=== PATIENT | female | born 1970 | race African-American/Black ===

== ENCOUNTER → 2017-08-13 | Outpatient (CLI) | payer OTHER ==
--- NOTE | 2017-08-13 11:03 | MM ---
Reason for exam: screening (asymptomatic). Last mammogram was performed 1 year and 1 month ago. Physical Findings: Dr. Velasquez did not find any significant physical abnormalities on exam. MG Screening Mammo w CAD Bilateral CC and MLO view(s) were taken. Prior study comparison: July 27, 2016, bilateral MG screening mammo w CAD. July 12, 2015, bilateral MG screening mammo w CAD. There are scattered fibroglandular densities. No suspicious abnormality. No significant changes when compared with prior studies. ASSESSMENT: Negative, BI-RAD 1 RECOMMENDATION: Routine screening mammogram of both breasts in 1 year.
== END | disposition home or self-care (01) ==
LOC: RADMAMWWP 07:20
PROVIDERS: ATTEND Family Medicine
DX: Z12.31 Encounter for screening mammogram for malignant neoplasm of breast (principal)

== ENCOUNTER 2017-09-08 11:03 | Emergency (ER) | payer OTHER ==
[2017-09-08 11:16] VITALS: RESP 18
[2017-09-08] MEDS ORDERED: DEXAMETHASONE SOD PHOSPHATE 10 MG/ML 1 ML VIAL IV STA (11:31)
[2017-09-08] MEDS ORDERED: ALBUTEROL NEBULIZED 2.5 MG/3 ML INHALATION STA (11:31)
[2017-09-08] MEDS ORDERED: IPRATROPIUM 0.5 MG/2.5 ML NEBU INHALATION STA (11:31)
--- NOTE | 2017-09-08 11:35 | ED ---
General Adult HPI - General Chief complaint: Chest Pain Stated complaint: Chest Pain/SOB Time Seen by Provider: 09/08/17 11:06 Source: patient, RN notes reviewed, old records reviewed Mode of arrival: wheelchair Limitations: no limitations - History of Present Illness Initial comments: 46-year-old female presents with chief complaint of cough, difficulty breathing , and chest pain. Patient has a history of COPD. Patient states yesterday evening she took a breathing treatment which did not improve her symptoms. Patient is not currently on any steroids. She has had a productive cough and sharp chest pain worse with deep breathing and cough. Patient denies nausea or vomiting. Denies radiating chest pain. No history of CAD. Patient is a current smoker despite her diagnosis of COPD. patient denies fever, states she has had some chills. Patient does have a history of ICU stay for her asthma. No intubation. - Related Data Home Medications Medication Instructions Recorded Confirmed Albuterol Inhaler [Ventolin Hfa 2 puff INHALATION RT-Q6H PRN 04/14/15 09/08/17 Inhaler] Ferrous Sulfate [Feosol] 325 mg PO BID 04/14/15 09/08/17 Cholecalciferol [Vitamin D3] 5,000 unit PO DAILY 09/30/15 09/08/17 Desvenlafaxine Succinate [Pristiq 50 mg PO DAILY 12/21/15 09/08/17 ER] Gabapentin [Neurontin] 100 mg PO BID 06/30/16 09/08/17 ARIPiprazole [Abilify Maintena] 300 mg IM Q28D 08/17/16 09/08/17 Lisinopril-Hctz 20-12.5 mg 1 tab PO DAILY 08/17/16 09/08/17 [Zestoretic 20-12.5] Albuterol Nebulized [Ventolin 2.5 mg INHALATION RT-Q4H PRN 09/08/17 09/08/17 Nebulized] Atorvastatin [Lipitor] 10 mg PO HS 09/08/17 09/08/17 Magnesium Oxide 400 mg PO DAILY 09/08/17 09/08/17 Melatonin 5 mg PO HS 09/08/17 09/08/17 Montelukast [Singulair] 10 mg PO HS 09/08/17 09/08/17 QUEtiapine [SEROquel] 100 mg PO HS 09/08/17 09/08/17 amLODIPine [Norvasc] 10 mg PO DAILY 09/08/17 09/08/17 metFORMIN HCL [metFORMIN HCL ER] 1,000 mg PO BID 09/08/17 09/08/17 Previous Rx's Medication Instructions Recorded Azithromycin [Zithromax Z-pack] 0 mg PO DIRECTED #6 tab 09/08/17 predniSONE 50 mg PO DAILY #5 tab 09/08/17 Allergies Allergy/AdvReac Type Severity Reaction Status Date / Time peanut Allergy Rash/Hives Verified 09/08/17 12:01 rice Allergy Rash/Hives Verified 09/08/17 12:01 seasonal Allergy Rash/Hives Uncoded 09/08/17 11:16 Review of Systems ROS Statement: Those systems with pertinent positive or pertinent negative responses have been documented in the HPI. ROS Other: All systems not noted in ROS Statement are negative. Past Medical History Past Medical History: Asthma, Diabetes Mellitus, Hyperlipidemia, Hypertension, Musculoskeletal Disorder, Rheumatoid Arthritis (RA), Thyroid Disorder Additional Past Medical History / Comment(s): Back Pain. Hx Pituitary Tumor, BENIGN. Thyroid disorder. History of Any Multi-Drug Resistant Organisms: None Reported Past Surgical History: Section, Tubal Ligation Additional Past Surgical History / Comment(s): Pituitary Tumor Removed. Past Anesthesia/Blood Transfusion Reactions: No Reported Reaction Past Psychological History: Anxiety, Depression Smoking Status: Never smoker Past Alcohol Use History: None Reported Past Drug Use History: Marijuana - Past Family History Mother Family Medical History: Deep Vein Thrombosis (DVT) Daughter(s) Family Medical History: Deep Vein Thrombosis (DVT) Father Family Medical History: Cancer Additional Family Medical History / Comment(s): Prostate Cancer General Exam Limitations: no limitations General appearance: alert, in no apparent distress Head exam: Present: atraumatic, normocephalic Eye exam: Present: normal appearance, PERRL ENT exam: Present: normal exam, normal oropharynx Neck exam: Present: normal inspection. Absent: tenderness, meningismus Respiratory exam: Present: wheezes, prolonged expiratory. Absent: rhonchi Cardiovascular Exam: Present: normal rhythm, tachycardia GI/Abdominal exam: Present: soft. Absent: distended, tenderness Extremities exam: Present: normal inspection, normal capillary refill. Absent: pedal edema, calf tenderness Neurological exam: Present: alert, oriented X3, CN II-XII intact. Absent: motor sensory deficit Psychiatric exam: Present: normal affect, normal mood Course Vital Signs 09/08/17 09/08/17 09/08/17 11:12 12:02 12:07 Temperature 99.0 F Pulse Rate 103 H 108 H 88 Respiratory 18 18 Rate Blood Pressure 170/98 187/98 O2 Sat by Pulse 95 97 Oximetry 09/08/17 09/08/17 09/08/17 12:18 13:02 13:12 Temperature Pulse Rate 100 111 H 109 H Respiratory 18 Rate Blood Pressure 195/89 O2 Sat by Pulse 95 Oximetry - Reevaluation(s) Reevaluation #1: 09/08/17 13:28 On reevaluation, patient has increased air entry, decreased wheezing. EKG Findings - EKG Comments: EKG Findings:: EKG shows normal sinus rhythm, ventricular rate 92, PA interval 136, QRS duration 76, QTC 4:15, no ST segment elevation Medical Decision Making - Medical Decision Making 46-year-old female with history of asthma and COPD presents with cough and dyspnea. Chest complains of chest pain which I believe is secondary to coughing. EKG is nonischemic, troponin is negative. Additional laboratory studies reveal white blood cell count 16.5. Chest x-ray shows COPD, no focal pneumonia. I reevaluation patient is feeling better. She is offered observation, she would prefer to go home. She does have albuterol and a nebulizer at home. She is prescribed short course of steroids and azithromycin. She will follow-up with her primary care physician early next week. She will return to emergency department with worsening symptoms. - Lab Data Result diagrams: 09/08/17 11:33 09/08/17 11:33 Lab Results 09/08/17 09/08/17 09/08/17 Range/Units 11:33 11:33 11:33 WBC 16.5 H (3.8-10.6) k/uL RBC 4.78 (3.80-5.40) m/uL Hgb 14.4 (11.4-16.0) gm/dL Hct 43.9 (34.0-46.0) % MCV 91.9 (80.0-100.0) fL MCH 30.2 (25.0-35.0) pg MCHC 32.9 (31.0-37.0) g/dL RDW 14.8 (11.5-15.5) % Plt Count 298 (150-450) k/uL Neutrophils % 85 % Lymphocytes % 10 % Monocytes % 2 % Eosinophils % 3 % Basophils % 0 % Neutrophils # 14.0 H (1.3-7.7) k/uL Lymphocytes # 1.6 (1.0-4.8) k/uL Monocytes # 0.3 (0-1.0) k/uL Eosinophils # 0.6 (0-0.7) k/uL Basophils # 0.0 (0-0.2) k/uL PT (9.0-12.0) sec INR (<1.2) APTT (22.0-30.0) sec Sodium 142 (137-145) mmol/L Potassium 3.7 (3.5-5.1) mmol/L Chloride 109 H (98-107) mmol/L Carbon Dioxide 21 L (22-30) mmol/L Anion Gap 12 mmol/L BUN 7 (7-17) mg/dL Creatinine 0.80 (0.52-1.04) mg/dL Est GFR (MDRD) Af Amer >60 (>60 ml/min/1.73 sqM) Est GFR (MDRD) Non-Af >60 (>60 ml/min/1.73 sqM) Glucose 143 H (74-99) mg/dL Calcium 10.0 (8.4-10.2) mg/dL Magnesium 1.6 (1.6-2.3) mg/dL Total Bilirubin 0.5 (0.2-1.3) mg/dL AST 14 (14-36) U/L ALT 26 (9-52) U/L Alkaline Phosphatase 114 (38-126) U/L Total Creatine Kinase 101 (30-135) U/L CK-MB (CK-2) 0.5 (0.0-2.4) ng/mL CK-MB (CK-2) Rel Index 0.5 Troponin I <0.012 (0.000-0.034) ng/mL NT-Pro-B Natriuret Pep pg/mL Total Protein 7.8 (6.3-8.2) g/dL Albumin 4.3 (3.5-5.0) g/dL 09/08/17 09/08/17 Range/Units 11:33 11:33 WBC (3.8-10.6) k/uL RBC (3.80-5.40) m/uL Hgb (11.4-16.0) gm/dL Hct (34.0-46.0) % MCV (80.0-100.0) fL MCH (25.0-35.0) pg MCHC (31.0-37.0) g/dL RDW (11.5-15.5) % Plt Count (150-450) k/uL Neutrophils % % Lymphocytes % % Monocytes % % Eosinophils % % Basophils % % Neutrophils # (1.3-7.7) k/uL Lymphocytes # (1.0-4.8) k/uL Monocytes # (0-1.0) k/uL Eosinophils # (0-0.7) k/uL Basophils # (0-0.2) k/uL PT 10.2 (9.0-12.0) sec INR 1.0 (<1.2) APTT 25.0 (22.0-30.0) sec Sodium (137-145) mmol/L Potassium (3.5-5.1) mmol/L Chloride (98-107) mmol/L Carbon Dioxide (22-30) mmol/L Anion Gap mmol/L BUN (7-17) mg/dL Creatinine (0.52-1.04) mg/dL Est GFR (MDRD) Af Amer (>60 ml/min/1.73 sqM) Est GFR (MDRD) Non-Af (>60 ml/min/1.73 sqM) Glucose (74-99) mg/dL Calcium (8.4-10.2) mg/dL Magnesium (1.6-2.3) mg/dL Total Bilirubin (0.2-1.3) mg/dL AST (14-36) U/L ALT (9-52) U/L Alkaline Phosphatase (38-126) U/L Total Creatine Kinase (30-135) U/L CK-MB (CK-2) (0.0-2.4) ng/mL CK-MB (CK-2) Rel Index Troponin I (0.000-0.034) ng/mL NT-Pro-B Natriuret Pep 218 pg/mL Total Protein (6.3-8.2) g/dL Albumin (3.5-5.0) g/dL Disposition Clinical Impression: COPD (chronic obstructive pulmonary disease) Disposition: HOME SELF-CARE Condition: Good Instructions: COPD (Chronic Obstructive Pulmonary Disease) (ED) Prescriptions: Azithromycin [Zithromax Z-pack] 0 mg PO DIRECTED #6 tab predniSONE 50 mg PO DAILY #5 tab Referrals: Dipti Mccabe MD [Primary Care Provider] - 1-2 days Time of Disposition: 13:32
[2017-09-08 11:47] LABS: Basophils % (A) 0 %; CH 30.5; CHCM 33.4; Eosinophils # (A) 0.6 k/uL (0-0.7); Eosinophils % (A) 3 %; HCT 43.9 % (34.0-46.0); HDW 2.53; HGB 14.4 gm/dL (11.4-16.0); Luc # (Auto) 0.05; Luc % (Auto) 0; Lymphocytes # (A) 1.6 k/uL (1.0-4.8); Lymphocytes % (A) 10 %; MCH 30.2 pg (25.0-35.0); MCHC 32.9 g/dL (31.0-37.0); MCV 91.9 fL (80.0-100.0); Mean Platelet Volume 7.5; Monocytes # (A) 0.3 k/uL (0-1.0); Monocytes % (A) 2 %; Neutrophils % (A) 85 %; RBC 4.78 m/uL (3.80-5.40); RDW 14.8 % (11.5-15.5); WBC 16.5 k/uL (3.8-10.6); WBC (Perox) 16.99
--- NOTE | 2017-09-08 11:48 | XR ---
EXAMINATION TYPE: XR chest 2V DATE OF EXAM: 09/08/2017 HISTORY: Chest Pain. REFERENCE: Previous study dated 08/17/2016. FINDINGS: Lung volumes are prominent. The heart is upper limits of normal in size. The lungs appear c lear. Pleural spaces are clear. IMPRESSION: 1. CORRELATE FOR COPD. 2. BORDERLINE CARDIOMEGALY.
[2017-09-08 11:55] LABS: ALT 26 U/L (9-52); AST 14 U/L (14-36); Alkaline Phosphatase 114 U/L (38-126); Anion Gap 12 mmol/L; Blood Urea Nitrogen 7 mg/dL (7-17); Carbon Dioxide 21 mmol/L (22-30); Chloride 109 mmol/L (98-107); Glucose 143 mg/dL (74-99); Magnesium 1.6 mg/dL (1.6-2.3); Non-African American GFR(MDRD) >60 (>60 ml/min/1.73 sqM); Potassium 3.7 mmol/L (3.5-5.1); Sodium 142 mmol/L (137-145); Total Bilirubin 0.5 mg/dL (0.2-1.3); Total Protein 7.8 g/dL (6.3-8.2)
[2017-09-08 12:04] LABS: Prothrombin Time 10.2 sec (9.0-12.0)
[2017-09-08 12:10] LABS: Creatine Kinase 101 U/L (30-135)
[2017-09-08] MEDS ORDERED: LISINOPRIL-HCTZ 20-12.5 MG 1 EACH TAB PO STA (12:17)
[2017-09-08 12:22] LABS: Creatine Kinase MB 0.5 ng/mL (0.0-2.4); Troponin I <0.012 ng/mL (0.000-0.034)
[2017-09-08 13:58] VITALS: BP 175/74; PULSE 111; TEMP 97.5
== END 2017-09-08 14:05 | disposition home or self-care (01) ==
LOC: EC 11:03
DX: J44.9 Chronic obstructive pulmonary disease, unspecified (principal); R00.0 Tachycardia, unspecified; R68.83 Chills (without fever); E78.5 Hyperlipidemia, unspecified; I10 Essential (primary) hypertension; E11.9 Type 2 diabetes mellitus without complications; F32.9 Major depressive disorder, single episode, unspecified; F41.9 Anxiety disorder, unspecified; Z79.84 Long term (current) use of oral hypoglycemic drugs; Z79.899 Other long term (current) drug therapy; Z91.010 Allergy to peanuts; Z91.018 Allergy to other foods; Z91.09 Other allergy status, other than to drugs and biological substances
CPT/HCPCS: 36415; 94644; 93005; 83880; 80053; 82550; 82553; 83735; 84484; 85025; 85610; 85730; 71020; 99285; 96374; J1100

== ENCOUNTER → 2018-06-27 | Outpatient (CLI) | payer OTHER ==
[2018-06-27 12:32] LABS: Basophils % (A) 0 %; Eosinophils # (A) 0.3 k/uL (0-0.7); Eosinophils % (A) 3 %; HCT 41.5 % (34.0-46.0); HGB 13.4 gm/dL (11.4-16.0); Lymphocytes # (A) 2.5 k/uL (1.0-4.8); Lymphocytes % (A) 22 %; MCH 29.5 pg (25.0-35.0); MCHC 32.2 g/dL (31.0-37.0); MCV 91.8 fL (80.0-100.0); Mean Platelet Volume 7.1; Monocytes # (A) 0.3 k/uL (0-1.0); Monocytes % (A) 3 %; Neutrophils # (A) 8.1 k/uL (1.3-7.7); Neutrophils % (A) 71 %; Platelet Count 281 k/uL (150-450); RBC 4.52 m/uL (3.80-5.40); RDW 14.4 % (11.5-15.5); WBC 11.3 k/uL (3.8-10.6)
[2018-06-27 12:53] LABS: ALT 28 U/L (9-52); AST 17 U/L (14-36); Albumin 3.9 g/dL (3.5-5.0); Alkaline Phosphatase 100 U/L (38-126); Anion Gap 7 mmol/L; Blood Urea Nitrogen 10 mg/dL (7-17); Calcium 9.6 mg/dL (8.4-10.2); Carbon Dioxide 25 mmol/L (22-30); Chloride 106 mmol/L (98-107); Cholesterol 268 mg/dL (<200); Glucose 102 mg/dL (74-99); HDL Cholesterol 46 mg/dL (40-60); LDL Cholesterol,Calculated 201 mg/dL (0-99); Magnesium 1.8 mg/dL (1.6-2.3); Potassium 4.3 mmol/L (3.5-5.1); Sodium 138 mmol/L (137-145); Total Bilirubin 0.6 mg/dL (0.2-1.3); Total Protein 7.1 g/dL (6.3-8.2); Triglycerides 107 mg/dL (<150)
[2018-06-27 13:07] LABS: T4, Free (Free Thyroxine) 1.27 ng/dL (0.78-2.19)
== END | disposition home or self-care (01) ==
LOC: LABWHC1 11:20
PROVIDERS: ATTEND Nurse Practitioner
DX: E78.5 Hyperlipidemia, unspecified (principal); E11.9 Type 2 diabetes mellitus without complications; E66.9 Obesity, unspecified; I10 Essential (primary) hypertension
CPT/HCPCS: 36415; 80053; 80061; 82306; 82607; 83036; 83735; 84439; 84443; 85025

== ENCOUNTER → 2019-08-05 | Outpatient (CLI) | payer OTHER ==
[2019-08-05 15:46] LABS: Progesterone 2.5 ng/mL
[2019-08-05 15:47] LABS: Estradiol 60.4 pg/mL
[2019-08-05 15:51] LABS: African American GFR (CKD) 88.9 (60.0-200.0); Albumin 3.8 g/dL (3.80-4.90); Albumin/Globulin Ratio 1.9 (1.60-3.17); Anion Gap 7.8 mmol/L (4.00-12.00); BUN/Creat Ratio 11.11 Ratio (12.00-20.00); Calcium 9.2 mg/dL (8.7-10.3); Carbon Dioxide 27.2 mmol/L (21.6-31.8); Potassium 4.1 mmol/L (3.5-5.5); Total Bilirubin 0.4 mg/dL (0.2-1.2); Total Protein 5.8 g/dL (6.2-8.2)
[2019-08-05 15:59] LABS: T4, Free (Free Thyroxine) 1.1 ng/dL (0.80-1.80)
[2019-08-05 17:30] LABS: Hemoglobin A1C 7.8 % (4.0-6.0)
== END | disposition home or self-care (01) ==
LOC: LABWHC1 10:11
PROVIDERS: ATTEND Nurse Practitioner
DX: Z51.81 Encounter for therapeutic drug level monitoring (principal); Z79.899 Other long term (current) drug therapy
CPT/HCPCS: 36415; 80053; 82670; 83001; 83002; 83036; 84144; 84146; 84439; 84443

== ENCOUNTER → 2020-03-26 | Outpatient (CLI) | payer OTHER ==
[2020-03-26 10:40] LABS: Basophils % (A) 0 %; Eosinophils # (A) 0.4 k/uL (0-0.7); Eosinophils % (A) 3 %; HCT 44.4 % (34.0-46.0); HGB 14.8 gm/dL (11.4-16.0); Lymphocytes # (A) 3.6 k/uL (1.0-4.8); Lymphocytes % (A) 33 %; MCH 31.3 pg (25.0-35.0); MCHC 33.3 g/dL (31.0-37.0); MCV 93.8 fL (80.0-100.0); Mean Platelet Volume 7.6; Monocytes # (A) 0.3 k/uL (0-1.0); Monocytes % (A) 3 %; Neutrophils # (A) 6.3 k/uL (1.3-7.7); Neutrophils % (A) 59 %; Platelet Count 218 k/uL (150-450); RBC 4.73 m/uL (3.80-5.40); RDW 13.9 % (11.5-15.5); WBC 10.8 k/uL (3.8-10.6)
[2020-03-26 16:13] LABS: African American GFR (CKD) 88.2 (60.0-200.0); Albumin/Globulin Ratio 1.54 (1.60-3.17); Anion Gap 7.2 mmol/L (4.00-12.00); BUN/Creat Ratio 7.78 Ratio (12.00-20.00); Calcium 9.4 mg/dL (8.7-10.3); Carbon Dioxide 26.8 mmol/L (21.6-31.8); Chol/HDL Ratio 5.68; Globulin 2.6 g/dL (1.6-3.3); LDL Cholesterol,Calculated 196.4 mg/dL (0.0-131.0); Magnesium 1.8 mg/dL (1.5-2.4); Non-African American GFR(CKD) 76.1 (60.0-200.0); Potassium 4.6 mmol/L (3.5-5.5); Total Bilirubin 0.4 mg/dL (0.3-1.2); Total Protein 6.6 g/dL (6.2-8.2); VLDL Calculation 23.6 mg/dL (5.00-40.00)
[2020-03-26 16:21] LABS: T4, Free (Free Thyroxine) 1.1 ng/dL (0.80-1.80)
[2020-03-26 18:53] LABS: Hemoglobin A1C 8.2 % (4.0-6.0)
== END | disposition home or self-care (01) ==
LOC: LABWHC1 08:54
PROVIDERS: ATTEND Nurse Practitioner
DX: I10 Essential (primary) hypertension (principal); E55.9 Vitamin D deficiency, unspecified; Z79.899 Other long term (current) drug therapy
CPT/HCPCS: 36415; 80053; 80061; 82306; 82607; 83036; 83735; 84439; 84443; 85025

== ENCOUNTER 2020-05-05 20:36 | Observation (INO) | payer OTHER ==
--- NOTE | 2020-05-05 21:03 | ED ---
Chest Pain HPI - General Chief Complaint: Chest Pain Stated Complaint: Chest Pain Time Seen by Provider: 05/05/20 20:47 Source: patient, RN notes reviewed, old records reviewed Mode of arrival: ambulatory - History of Present Illness Initial Comments: This is a 49-year-old female with known history of CAD and recent stent placement secondary to MS coming in for persistent chest pain since her heart attack. 4 days of chest pain left-sided to her back left shoulder. No shortness of breath, pain is currently now. No improving factors no modifying factors maybe some worse pain with exertion she has been able to rest comfortably takes no pain medications at home no blood thinners MD Complaint: chest pain -: days(s) (4) Onset: during rest, during exertion Pain Location: substernal, left chest Pain Radiation: LUE Severity: mild Severity scale (1-10): 2 Quality: aching Consistency: constant Improves With: nothing Worsens With: nothing Other Symptoms: palpitations Treatments Prior to Arrival: none - Related Data Home Medications Medication Instructions Recorded Confirmed Montelukast [Singulair] 10 mg PO HS PRN 09/08/17 05/05/20 Acetaminophen Tab [Tylenol] 650 mg PO Q4H PRN 05/05/20 05/05/20 Albuterol Sulfate [Ventolin HFA] 2 puff INHALATION RT-Q6H PRN 05/05/20 05/05/20 Aspirin EC [Ecotrin Low Dose] 81 mg PO DAILY 05/05/20 05/05/20 Atorvastatin [Lipitor] 80 mg PO HS 05/05/20 05/05/20 Carvedilol [Coreg] 6.25 mg PO BID 05/05/20 05/05/20 Diclofenac Sodium Gel [Voltaren 2 gm TOPICAL BID 05/05/20 05/05/20 Gel] Furosemide [Lasix] 40 mg PO DAILY 05/05/20 05/05/20 Ipratropium-Albuterol Nebulize 3 ml INHALATION RT-Q4H PRN 05/05/20 05/05/20 [Duoneb 0.5 mg-3 mg/3 ml Soln] Lidocaine 5% Patch [Lidoderm] 1 patch TOPICAL DAILY 05/05/20 05/05/20 Lisinopril [Zestril] 10 mg PO DAILY 05/05/20 05/05/20 Loratadine [Claritin] 10 mg PO DAILY PRN 05/05/20 05/05/20 Methocarbamol [Robaxin] 750 mg PO Q8H PRN 05/05/20 05/05/20 Morphine Sulfate Ir [MSIR] 30 mg PO Q6H PRN 05/05/20 05/05/20 Nitroglycerin Sl Tabs [Nitrostat] 0.4 mg SUBLINGUAL Q5M PRN 05/05/20 05/05/20 Prasugrel [Effient] 10 mg PO DAILY 05/05/20 05/05/20 metFORMIN HCL [Glucophage] 500 mg PO AC-BID 05/05/20 05/05/20 Allergies Allergy/AdvReac Type Severity Reaction Status Date / Time peanut Allergy Rash/Hives Verified 05/05/20 22:10 rice Allergy Rash/Hives Verified 05/05/20 22:10 seasonal Allergy Rash/Hives Uncoded 05/05/20 20:42 Review of Systems ROS Statement: Those systems with pertinent positive or pertinent negative responses have been documented in the HPI. ROS Other: All systems not noted in ROS Statement are negative. EKG Findings - EKG Comments: EKG Findings:: EKG is sinus rhythm 64. GA 140 1 4 QRS 82 QTC of 416 Past Medical History Past Medical History: Asthma, Diabetes Mellitus, Hyperlipidemia, Hypertension, Musculoskeletal Disorder, Rheumatoid Arthritis (RA), Thyroid Disorder Additional Past Medical History / Comment(s): Back Pain. Hx Pituitary Tumor, BENIGN. Thyroid disorder. History of Any Multi-Drug Resistant Organisms: None Reported Past Surgical History: Section, Heart Catheterization With Stent, Tubal Ligation Additional Past Surgical History / Comment(s): Pituitary Tumor Removed. Past Anesthesia/Blood Transfusion Reactions: No Reported Reaction Past Psychological History: Anxiety, Depression Smoking Status: Current every day smoker Past Alcohol Use History: Occasional Past Drug Use History: None Reported - Past Family History Mother Family Medical History: Deep Vein Thrombosis (DVT) Daughter(s) Family Medical History: Deep Vein Thrombosis (DVT) Father Family Medical History: Cancer Additional Family Medical History / Comment(s): Prostate Cancer General Exam General appearance: alert, in no apparent distress Head exam: Present: atraumatic, normocephalic, normal inspection Eye exam: Present: normal appearance, PERRL, EOMI. Absent: scleral icterus, conjunctival injection, periorbital swelling ENT exam: Present: normal exam, mucous membranes moist Neck exam: Present: normal inspection. Absent: tenderness, meningismus, lymphad enopathy Respiratory exam: Present: normal lung sounds bilaterally. Absent: respiratory distress, wheezes, rales, rhonchi, stridor Cardiovascular Exam: Present: regular rate, normal rhythm, normal heart sounds. Absent: systolic murmur, diastolic murmur, rubs, gallop, clicks GI/Abdominal exam: Present: soft, normal bowel sounds. Absent: distended, tenderness, guarding, rebound, rigid Extremities exam: Present: normal inspection, full ROM, normal capillary refill. Absent: tenderness, pedal edema, joint swelling, calf tenderness Back exam: Present: normal inspection Neurological exam: Present: alert, oriented X3, CN II-XII intact Psychiatric exam: Present: normal affect, normal mood Skin exam: Present: warm, dry, intact, normal color. Absent: rash Course Vital Signs 05/05/20 05/05/20 05/05/20 20:39 21:42 22:13 Temperature 97.4 F L 98.2 F Pulse Rate 69 78 Respiratory 21 18 18 Rate Blood Pressure 148/80 134/89 O2 Sat by Pulse 99 95 Oximetry - Reevaluation(s) Reevaluation #1: 05/05/20 22:38 Medical records reviewed Reevaluation #2: 05/05/20 22:38 Patient still with chest pain here in the ER - Consultations Consultation #1: Spoke with Dr. Sneed agrees to admit patient Chest Pain MDM - MDM 49-year-old female to the ER for evaluation of chest pain today she is 5 days post cardiac catheterization. Patient has a mildly elevated troponin but unsure of what her troponin was on discharge. Otherwise no recent sick contacts or travel history. Patient still with chest pain currently [place] for chest pain post acute care nurse practitioner Critical Care Time Critical Care Time: Yes Total Critical Care Time: 31 Disposition Clinical Impression: Chest pain Disposition: ADMITTED IP TO THIS HOSP Condition: Undetermined Is patient prescribed a controlled substance at d/c from ED?: No
[2020-05-05 21:47] LABS: Basophils # (A) 0.1 k/uL (0-0.2); Basophils % (A) 1 %; Eosinophils # (A) 0.4 k/uL (0-0.7); Eosinophils % (A) 4 %; HGB 13.6 gm/dL (11.4-16.0); Lymphocytes # (A) 2.9 k/uL (1.0-4.8); Lymphocytes % (A) 28 %; MCH 29.4 pg (25.0-35.0); MCHC 32.4 g/dL (31.0-37.0); MCV 90.7 fL (80.0-100.0); Mean Platelet Volume 7.4; Monocytes # (A) 0.4 k/uL (0-1.0); Monocytes % (A) 4 %; Neutrophils # (A) 6.5 k/uL (1.3-7.7); Neutrophils % (A) 62 %; Platelet Count 305 k/uL (150-450); RBC 4.63 m/uL (3.80-5.40); RDW 13.6 % (11.5-15.5); WBC 10.5 k/uL (3.8-10.6)
--- NOTE | 2020-05-05 21:53 | XR ---
EXAMINATION TYPE: XR chest 2V DATE OF EXAM: 05/05/2020 COMPARISON: 09/08/2017 HISTORY: Chest pain TECHNIQUE: Frontal and lateral views of the chest are obtained. FINDINGS: There is no focal air space opacity. No evidence for pneumothorax. No pleural effusion. The cardiac silhouette size is within normal limits. The osseous structures are grossly intact. IMPRESSION: 1. No acute cardiopulmonary process.
[2020-05-05 21:58] LABS: ALT 30 U/L (4-34); AST 28 U/L (14-36); African American GFR (CKD) >90 (>60 ml/min/1.73 sqM); Albumin 4.4 g/dL (3.5-5.0); Alkaline Phosphatase 108 U/L (38-126); Anion Gap 9 mmol/L; Blood Urea Nitrogen 10 mg/dL (7-17); Calcium 9.7 mg/dL (8.4-10.2); Carbon Dioxide 30 mmol/L (22-30); Chloride 97 mmol/L (98-107); Glucose 221 mg/dL (74-99); Magnesium 1.8 mg/dL (1.6-2.3); Non-African American GFR(CKD) 88 (>60 ml/min/1.73 sqM); Sodium 136 mmol/L (137-145); Total Bilirubin 0.6 mg/dL (0.2-1.3); Total Protein 7.4 g/dL (6.3-8.2)
[2020-05-05 22:04] LABS: INR 0.9 (<1.2); Prothrombin Time 9.8 sec (9.0-12.0)
[2020-05-05 22:13] LABS: Partial Thromboplastin Time 21.6 sec (22.0-30.0)
[2020-05-05] MEDS ORDERED: SODIUM CHLORIDE 0.9% 1,000 ML IV SCH (22:30)
[2020-05-05] MEDS ORDERED: ASPIRIN 81 MG PO STA (22:30)
[2020-05-05] MEDS ORDERED: HEPARIN SODIUM,PORCINE 5,000 UNIT/ML 1 ML VIAL IV ONE (22:32)
[2020-05-05] MEDS ORDERED: HEPARIN SODIUM,PORCINE 5,000 UNIT/ML 1 ML VIAL IV PRN (22:32)
[2020-05-05] MEDS ORDERED: HEPARIN SOD,PORK IN 0.45% NACL 25,000 UNIT in 0.45% NACL 1 250ML.BAG IV SCH (22:45)
[2020-05-05] MEDS: HEPARIN SOD,PORK IN 0.45% NACL 25,000 UNIT in 0.45% NACL 1 250ML.BAG IV SCH (23:07)
[2020-05-05] MEDS: NITROGLYCERIN SL TABS 0.4 MG TAB SUBLINGUAL PRN (23:55)
[2020-05-06] MEDS: NITROGLYCERIN SL TABS 0.4 MG TAB SUBLINGUAL PRN ×3 (00:01→08:50)
[2020-05-06] MEDS: MORPHINE SULFATE 2 MG/ML SYRINGE IVP PRN ×3 (00:37→19:01)
[2020-05-06] MEDS: NITROGLYCERIN OINT 1 INCH/GM PACKET TOPICAL SCH ×2 (00:40→06:38)
[2020-05-06 05:57] LABS: Basophils # (A) 0.1 k/uL (0-0.2); Basophils % (A) 1 %; Eosinophils # (A) 0.4 k/uL (0-0.7); Eosinophils % (A) 4 %; HCT 37.5 % (34.0-46.0); HGB 12.3 gm/dL (11.4-16.0); Lymphocytes # (A) 3.1 k/uL (1.0-4.8); Lymphocytes % (A) 34 %; MCH 29.8 pg (25.0-35.0); MCHC 32.9 g/dL (31.0-37.0); MCV 90.7 fL (80.0-100.0); Mean Platelet Volume 7.5; Monocytes # (A) 0.4 k/uL (0-1.0); Monocytes % (A) 5 %; Neutrophils % (A) 55 %; Platelet Count 242 k/uL (150-450); RBC 4.14 m/uL (3.80-5.40); RDW 13.5 % (11.5-15.5); WBC 9.1 k/uL (3.8-10.6)
[2020-05-06 06:02] LABS: Partial Thromboplastin Time 41.7 sec (22.0-30.0); Prothrombin Time 10.3 sec (9.0-12.0)
[2020-05-06 06:14] LABS: Cholesterol 159 mg/dL (<200); HDL Cholesterol 34 mg/dL (40-60); LDL Cholesterol,Calculated 101 mg/dL (0-99); Triglycerides 121 mg/dL (<150)
[2020-05-06 06:24] LABS: Glucose,Whole Blood 190 mg/dL (75-99)
[2020-05-06] MEDS: METOPROLOL TARTRATE 25 MG TAB PO SCH ×2 (08:37→20:50)
[2020-05-06] MEDS ORDERED: ASPIRIN 325 MG TAB PO SCH (09:00)
[2020-05-06] MEDS ORDERED: HYDROmorphone 0.5 MG/0.5 ML SYRINGE IVP STA (09:03)
[2020-05-06] MEDS ORDERED: NITROGLYCERIN SL TABS 0.4 MG TAB SUBLINGUAL PRN (09:10)
[2020-05-06] MEDS ORDERED: ACETAMINOPHEN TAB 325 MG TAB PO PRN (09:10)
[2020-05-06] MEDS ORDERED: IPRATROPIUM-ALBUTEROL 3 ML NEB INHALATION PRN (09:10)
[2020-05-06] MEDS ORDERED: MONTELUKAST 10 MG TAB PO PRN (09:10)
[2020-05-06] MEDS ORDERED: LORATADINE 10 MG TAB PO PRN (09:10)
[2020-05-06] MEDS ORDERED: ALBUTEROL NEBULIZED 2.5 MG/3 ML INHALATION PRN (09:10)
[2020-05-06] MEDS: PRASUGREL 10 MG TAB PO SCH (10:32)
[2020-05-06] MEDS ORDERED: ALPRAZolam 0.25 MG TAB PO PRN (11:27)
[2020-05-06] MEDS ORDERED: SODIUM CHLORIDE 0.9% 1,000 ML in EMPTY BAG 1 BAG IV ONE (11:27)
[2020-05-06] MEDS ORDERED: ALPRAZolam 0.5 MG TAB PO PRN (11:27)
[2020-05-06] MEDS ORDERED: ATORVASTATIN 80 MG TAB PO STA (11:27)
[2020-05-06] MEDS: ATORVASTATIN 80 MG TAB PO SCH ×2 (11:32→20:50)
--- NOTE | 2020-05-06 11:36 | ECHOF ---
Referral Reason:nstemi MEASUREMENTS -------- HEIGHT: 127.0 cm WEIGHT: 95.7 kg BP: RVIDd: 3.2 cm (< 3.3) IVSd: 1.2 cm (0.6 - 1.1) LVIDd: 3.4 cm (3.9 - 5.3) LVPWd: 1.4 cm (0.6 - 1.1) IVSs: 1.6 cm LVIDs: 2.5 cm LVPWs: 1.6 cm LA Diam: 3.0 cm (2.7 - 3.8) LAESV Index (A-L): 16.35 ml/m Ao Diam: 2.5 cm (2.0 - 3.7) AV Cusp: 1.6 cm (1.5 - 2.6) LA Diam: 3.2 cm (2.7 - 3.8) MV EXCURSION: 14.230 mm (> 18.000) MV EF SLOPE: 78 mm/s (70 - 150) EPSS: 0.3 cm MV E Papi: 0.55 m/s MV DecT: 195 ms MV A Papi: 0.60 m/s MV E/A Ratio: 0.92 RAP: 5.00 mmHg FINDINGS -------- Sinus rhythm. This was a technically adequate study. The left ventricular size is normal. There is mild concentric left ventricular hypertrophy. Overa ll left ventricular systolic function is normal with, an EF between 55 - 60 %. The diastolic fillin g pattern is normal for the age of the patient 6.38. The right ventricle is normal in size. Normal LA size by volume 22+/-6 ml/m2. The right atrial size is normal. The aortic valve is trileaflet, and appears structurally normal. No aortic stenosis or regurgitation. The mitral valve is normal. Mild mitral regurgitation is present. Mild tricuspid regurgitation present. Right ventricular systolic pressure is normal at < 35 mmHg. There is no pulmonic regurgitation present. The aortic root size is normal. There is no pericardial effusion. CONCLUSIONS -------- 1. There is mild concentric left ventricular hypertrophy. 2. Overall left ventricular systolic function is normal with, an EF between 55 - 60 %. 3. Normal LA size by volume 22+/-6 ml/m2. 4. The aortic valve is trileaflet, and appears structurally normal. No aortic stenosis or regurgitati on. 5. Mild mitral regurgitation is present. 6. Mild tricuspid regurgitation present. 7. There is no pericardial effusion. [employer] TECHNICIAN: Yissel Leahy RDCS
[2020-05-06] MEDS: ISOSORBIDE MONONITRATE ER 15 MG TAB PO SCH (11:57)
[2020-05-06] MEDS ORDERED: SODIUM CHLORIDE 0.9% 1,000 ML IV SCH ×2 (12:15→18:45)
[2020-05-06 12:38] LABS: Glucose,Whole Blood 147 mg/dL (75-99)
--- NOTE | 2020-05-06 12:56 | P.HPIM ---
History of Present Illness H&P Date: 05/06/20 Chief Complaint: Chest pain History of Present Illness This is a 49-year-old -Kos[place] female patient follows at the [facility] under the care of Gabriela Urban NP. She has a past medical history of recently diagnosed MRI and stent placement to the mid LAD on April 28 at [facility] in [place],, moderate intermittent asthma, diabetes mellitus type 2, hypertension, hyperlipidemia, history of pituitary tumor status post resection at [facility]. Patient states that she developed a chest pain that became very sick with severe and her drove her to [facility] as they were in that area. This was on April 26, patient suddenly underwent heart catheterization and had stent placement to the LAD on April [address] Ayaz Rivera. She was discharged on May 01. She states she has had continued pain since that time and then has not completely resolved. She developed swelling in the neck back and shoulders and pain in her chest seemed to worsen and she came into for evaluation. Chest x-ray showed no acute process. EKG sinus rhythm at rate of [address] changes. CBC was unremarkable. Sodium 136, potassium 4.0, blood sugar 221, BUN 10 and creatinine 0.8. Troponin 0.577, 0.513, 0.5-2. Triglycerides 121, cholesterol 159, LDL 101, HDL 34, lipase 114. Patient was started on a heparin drip and admitted to the cardiac stepdown unit. Echocardiogram reveals EF 55-60% with mild concentric left ventricular hypertrophy, mild mitral regurgitation, mild tricuspid regurgitation. Patient has been scheduled for heart catheterization. The patient is currently smoking cigars to 3 per day recently cut down since she was hospitalized at [facility]. She does have history of marijuana use but stopped using. She denies any alcohol abuse, illicit drug use. Review of Systems Constitutional: No fever, no chills, no night sweats. No weight change. Reports weakness,Reports fatigue. No daytime sleepiness. EENT: No headache. No blurred vision or double vision, no loss of vision. No loss of Hearing, no ringing in the ears, no dizziness. No nasal drainage or congestion. No epistaxis. No sore throat. Lungs: No shortness of breath, cough, no sputum production. No wheezing. Cardiovascular: Reports chest pain, no lower extremity edema. No palpitations. No paroxysmal nocturnal dyspnea. No orthopnea. No lightheadedness or dizziness. No syncopal episodes. Abdominal: No abdominal pain. No nausea, vomiting. No diarrhea. No constipation. No bloody or tarry stools. No loss of appetite. Genitourinary: No dysuria, increased frequency, urgency. No urinary retention. Musculoskeletal: No myalgias. No muscle weakness, no gait dysfunction, no frequent falls. No back pain. No neck pain. Integumentary: No wounds, no lesions. No rash or pruritus. No unusual bruising. No change in hair or nails. Neurologic: No aphasia. No facial droop. No change in mentation. No head injury. No headache. No paralysis. No paresthesia. Psychiatric: No depression. No anxiety. No mood swings. Endocrine: No abnormal blood sugars. No weight change. No excessive sweating or thirst. No cold intolerance. Physical Examination Gen: This is a a morbidly obese -Kos[place] female. Patient is resting in bed and appears to be comfortable at rest. HEENT: Head is atraumatic, normocephalic. Pupils equal, round. Sclerae is anicteric. NECK: Supple. No JVD. No lymphadenopathy. No thyromegaly. LUNGS: Clear to auscultation. No wheezes or rhonchi. No intercostal retractions. HEART: Regular rate and rhythm. No murmur. ABDOMEN: Soft. Bowel sounds are present. No masses. No tenderness. EXTREMITIES: No pedal edema. No calf tenderness. Dorsalis pedis palpable bilaterally. NEUROLOGICAL: Patient is awake, alert and oriented x3. Cranial nerves 2 through 12 are grossly intact. Assessment and Plan 1. Possible non-ST elevated myocardial infarction. Consult with cardiology. Patient scheduled for heart catheterization today. She is currently on heparin drip. Continue aspirin 81 mg daily, Lipitor 80 mg at bedtime, Lopressor 25 mg twice daily, Effient 10 mg daily. Patient started on Imdur 50 mg daily and nitro paste discontinued. 2. Recent myocardial infarction with stent placement to the mid LAD. Continue as in #1. 3. Moderate intermittent asthma, stable without exacerbation. Continue DuoNeb treatments every 4 hours as needed, Singulair 10 mg at bedtime, Claritin as needed. 4. Hyperlipidemia. Continue statin. 5. Diabetes mellitus type 2. Hold metformin 500 mg twice daily. Start NovoLog scale before meals and at bedtime. 6. Hypertension. Continue lisinopril 10 mg daily, Lopressor.. 7. History of pituitary tumor status post resection. 8. GI prophylaxis. Pepcid. 9. COVID-19 testing. Patient will be admitted to the hospital for a minimum of 2 night stay. Discharge plan: Return home. Impression and plan of care have been directed as dictated by the signing physician. Apurva Man nurse practitioner acting as scribe for signing physician. Past Medical History Past Medical History: Asthma, Diabetes Mellitus, Hyperlipidemia, Hypertension, Musculoskeletal Disorder, Thyroid Disorder Additional Past Medical History / Comment(s): Back Pain. Hx Pituitary Tumor, BENIGN. Thyroid disorder. History of Any Multi-Drug Resistant Organisms: None Reported Past Surgical History: Section, Heart Catheterization With Stent, Tubal Ligation Additional Past Surgical History / Comment(s): Pituitary Tumor Removed. Past Anesthesia/Blood Transfusion Reactions: No Reported Reaction Date of Last Stent Placement:: april 28 2020 Past Psychological History: Anxiety, Depression Smoking Status: Current every day smoker Past Alcohol Use History: Occasional Additional Past Alcohol Use History / Comment(s): The patient has been a smoker on and off for 11 years currently smoking cigars 2-3 per day. She states she cut down since her heart catheterization at [facility]. She stopped using marijuana. She denies any alcohol abuse. No illicit drug use. Patient is . 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 Past Drug Use History: None Reported Additional Drug Use History / Comment(s): OCC USE. - Past Family History Mother Family Medical History: Deep Vein Thrombosis (DVT) Additional Family Medical History / Comment(s): Mother is alive at age 67 with history of coronary artery disease and three-vessel CABG. Daughter(s) Family Medical History: Deep Vein Thrombosis (DVT) Additional Family Medical History / Comment(s): Patient has a total of 9 children with no major medical problems. Father Family Medical History: Cancer Additional Family Medical History / Comment(s): Father is alive with no history of coronary artery disease. History of Prostate Cancer Sister(s) Additional Family Medical History / Comment(s): The patient has 4 sisters and 1 brother. One sister had a myocardial infraction at age 40. Medications and Allergies Home Medications Medication Instructions Recorded Confirmed Type Montelukast [Singulair] 10 mg PO HS PRN 09/08/17 05/05/20 History Acetaminophen Tab [Tylenol] 650 mg PO Q4H PRN 05/05/20 05/05/20 History Albuterol Sulfate [Ventolin HFA] 2 puff INHALATION RT-Q6H PRN 05/05/20 05/05/20 History Aspirin EC [Ecotrin Low Dose] 81 mg PO DAILY 05/05/20 05/05/20 History Atorvastatin [Lipitor] 80 mg PO HS 05/05/20 05/05/20 History Carvedilol [Coreg] 6.25 mg PO BID 05/05/20 05/05/20 History Diclofenac Sodium Gel [Voltaren 2 gm TOPICAL BID 05/05/20 05/05/20 History Gel] Furosemide [Lasix] 40 mg PO DAILY 05/05/20 05/05/20 History Ipratropium-Albuterol Nebulize 3 ml INHALATION RT-Q4H PRN 05/05/20 05/05/20 History [Duoneb 0.5 mg-3 mg/3 ml Soln] Lisinopril [Zestril] 10 mg PO DAILY 05/05/20 05/05/20 History Loratadine [Claritin] 10 mg PO DAILY PRN 05/05/20 05/05/20 History Methocarbamol [Robaxin] 750 mg PO Q8H PRN 05/05/20 05/05/20 History Morphine Sulfate Ir [MSIR] 30 mg PO Q6H PRN 05/05/20 05/05/20 History Nitroglycerin Sl Tabs [Nitrostat] 0.4 mg SUBLINGUAL Q5M PRN 05/05/20 05/05/20 History Prasugrel [Effient] 10 mg PO DAILY 05/05/20 05/05/20 History metFORMIN HCL [Glucophage] 500 mg PO AC-BID 05/05/20 05/05/20 History Allergies Allergy/AdvReac Type Severity Reaction Status Date / Time peanut Allergy Rash/Hives Verified 05/05/20 22:10 rice Allergy Rash/Hives Verified 05/05/20 22:10 seasonal Allergy Rash/Hives Uncoded 05/05/20 20:42 Physical Exam Vitals: Vital Signs Temp Pulse Pulse Resp BP BP Pulse Ox 05/06/20 08:45 67 18 05/06/20 04:24 97.9 F 68 18 144/67 99 05/05/20 23:58 98.0 F 78 18 147/62 97 05/05/20 22:13 18 05/05/20 21:42 98.2 F 78 18 134/89 95 05/05/20 20:39 97.4 F L 69 21 148/80 99 Intake and Output 05/05/20 05/06/20 05/06/20 22:59 06:59 14:59 Intake Total 68.946 25.532 Balance 68.946 25.532 Intake: Intake, IV Titration 68.946 25.532 Amount Heparin Sod,Pork in 0.45% 68.946 25.532 NaCl 25,000 unit In 0.45 % NaCl 1 250ml.bag @ 10 UNITS/KG/HR 9.598 mls/hr IV .Q24H [facility] Rx#: [id number] Other: Voiding Method Toilet Toilet # Voids 1 Weight 95.98 kg 92.7 kg Results CBC & Chem 7: 05/06/20 05:16 05/05/20 21:35 Labs: Abnormal Lab Results - Last 24 Hours (Table) 05/05/20 05/05/20 05/05/20 Range/Units 21:35 21:35 21:35 APTT 21.6 L (22.0-30.0) sec Sodium 136 L (137-145) mmol/L Chloride 97 L (98-107) mmol/L Glucose 221 H (74-99) mg/dL POC Glucose (mg/dL) (75-99) mg/dL Troponin I 0.577 H* (0.000-0.034) ng/mL LDL Cholesterol, Calc (0-99) mg/dL HDL Cholesterol (40-60) mg/dL 05/06/20 05/06/20 05/06/20 Range/Units 00:55 03:00 05:16 APTT (22.0-30.0) sec Sodium (137-145) mmol/L Chloride (98-107) mmol/L Glucose (74-99) mg/dL POC Glucose (mg/dL) (75-99) mg/dL Troponin I 0.513 H* 0.522 H* (0.000-0.034) ng/mL LDL Cholesterol, Calc 101 H (0-99) mg/dL HDL Cholesterol 34 L (40-60) mg/dL 05/06/20 05/06/20 Range/Units 05:16 06:22 APTT 41.7 H (22.0-30.0) sec Sodium (137-145) mmol/L Chloride (98-107) mmol/L Glucose (74-99) mg/dL POC Glucose (mg/dL) 190 H (75-99) mg/dL Troponin I (0.000-0.034) ng/mL LDL Cholesterol, Calc (0-99) mg/dL HDL Cholesterol (40-60) mg/dL
[2020-05-06] MEDS: MORPHINE SULFATE IR 15 MG TABLET PO PRN ×2 (13:14→23:55)
--- NOTE | 2020-05-06 15:36 | CONS ---
CONSULTATION This is a 49-year-old somewhat obese lady who underwent a cardiac cath and stenting of mid LAD at [facility] on 04/28/2020. She presents here to the hospital complaining of chest pain. Quality of her pain appears to be quite atypical but it is recurrent. Her troponin has mildly elevated but showing a downward trend. This may actually be related to her recent hospitalization. Her EKG does not reveal any significant changes. She continues to have discomfort and required Dilaudid as well for pain control. She also has bronchial asthma, hypertension, and hyperlipidemia. At the time of my evaluation, she is relatively comfortable, but with activity she is having chest discomfort. Apparently, they attempted a cardiac cath from the right radial approach and went on and did from right femoral approach. Her other comorbid conditions include type 2 diabetes, hypertension, hyperlipidemia, and bronchial asthma. PAST MEDICAL HISTORY: 1. CAD with stenting of mid LAD performed on 04/28/2020 at [facility]. 2. Hypertension. 3. Hyperlipidemia. 4. Type 2 diabetes mellitus. MEDICATIONS: At home include Glucophage, Effient 10 mg daily, aspirin 81 mg daily, Zestril 10 mg daily, atorvastatin 80 mg daily. She takes Lasix 40 mg daily. PHYSICAL EXAMINATION: On examination, blood pressure is 140/70, pulse rate 68 per minute and regular. HEENT: Unremarkable. Fundus was not examined by me. NECK: Supple. There is no JVD. I cannot hear a carotid bruit. HEART: Exam reveals S1, S2 heard normally. No significant murmurs. LUNGS: Revealed decent air entry. ABDOMEN: Soft, nontender. EXTREMITIES: Lower extremities reveal palpable pulses. CENTRAL NERVOUS SYSTEM: Grossly within normal limits EKG revealed sinus mechanism with nonspecific ST-T changes. LABORATORY DATA: Laboratory data revealed that her troponin is mildly elevated at 0.57 and came down to 0.52. However, this could also be related to her recent intervention. IMPRESSION: 1. Chest pain syndrome. Cannot exclude progression of coronary artery disease or recent percutaneous coronary intervention related issues. 2. Hypertension. 3. Hyperlipidemia. 4. Bronchial asthma. 5. Type 2 diabetes mellitus. RECOMMENDATION: I am recommending that we continue the heparin drip. We will hydrate her with 75 cc normal saline. I will perform coronary angiography tomorrow. Based on findings, I will make further recommendations. I have given the patient the option of going back to [place], but she does not want to do so at this time. We will therefore continue the heparin and proceed with coronary angiography tomorrow. We will do an additional troponin. If she has any issues, we will do her catheterization sooner. Discussed my thoughts in detail with the patient. Thank you very much for the consult. LYN / MINDY: [id number] /
[2020-05-06 16:53] LABS: Glucose,Whole Blood 148 mg/dL (75-99)
[2020-05-06] MEDS ORDERED: carvediloL 6.25 MG TAB PO SCH (17:30)
[2020-05-06] MEDS ORDERED: LIDOCAINE 1% INJ 10MG/ML (20 ML MDV) ONE (17:39)
[2020-05-06] MEDS ORDERED: MIDAZOLAM 2 MG/2 ML VIAL IV ONE (18:02)
[2020-05-06] MEDS ORDERED: SODIUM CHLORIDE 0.9% 1,000 ML IV ONE (18:02)
[2020-05-06] MEDS ORDERED: LIDOCAINE 1% INJ 10MG/ML (20 ML MDV) SQ ONE (18:05)
[2020-05-06] MEDS ORDERED: NITROGLYCERIN SL TABS 0.4 MG TAB SUBLINGUAL ONE ×2 (18:21→18:23)
[2020-05-06] MEDS ORDERED: IOPAMIDOL-370 100ML BTL INJ ONE (18:24)
[2020-05-06] MEDS: INSULIN ASPART (NovoLOG) 100 UNIT/ML VIAL SQ SCH ×2 (18:57→20:51)
--- NOTE | 2020-05-06 20:15 | CC ---
CARDIAC CATHETERIZATION REPORT DATE OF SERVICE: 05/06/2020 PROCEDURE: Left heart catheterization and coronary angiography. PERFORMED BY: Dr. Jarrett Ojeda. Moderate conscious sedation time was 22 minutes. Patient was administered Versed. Oxygen saturation, hemodynamics and EKG were monitored closely. CLINICAL INFORMATION: Mrs. Eleazar Balbuena is a 49-year-old obese lady with type 2 diabetes, hypertension and hyperlipidemia who had an episode of unstable angina in the [place] area and underwent stenting of mid LAD performed at [facility] in [place], [place]. She came into the hospital with episode of chest pain yesterday. Troponins were negative. EKG did not have any clear-cut ischemic changes, but she continued to have chest pain. Therefore she was advised coronary angiography after due discussion regarding risks, benefits and options. PROCEDURE NOTE: Under local anesthesia and strict aseptic precautions, a 6-[place] introducer was placed in the right femoral artery. Apparently the patient had a cardiac cath that was attempted from the right radial. It was unsuccessful and therefore she had the procedure performed from the right femoral approach at [facility]. Using standard Chay catheters I performed coronary angiography, and the same right Chay catheter was used to check LV pressures. LV gram was not performed. Catheter and sheath was taken out and Angio-Seal device used to secure hemostasis and she was sent to the room in stable condition. CARDIAC CATHETERIZATION FINDINGS: The left ventricular end-diastolic pressure was 16 mmHg without any gradient across the aortic valve. CORONARY ANGIOGRAPHY FINDINGS: RIGHT CORONARY ARTERY: Technically this is a dominant vessel, has no significant disease. Distally it bifurcates into PDA and PLV, both of which supply a sizable amount of myocardium. PDA is larger, and in the IRWIN projection it seems to supply a sizable amount of myocardium. There is no significant disease in the RCA. Proximal RCA has mild irregularities of about 35%. LEFT MAIN CORONARY ARTERY: Short, patent, disease-free vessel that bifurcates into LAD and circumflex. LEFT ANTERIOR DESCENDING CORONARY ARTERY: Good-caliber vessel gives off a second diagonal branch which is of fair caliber. There are 2 diagonal branches that are coming off from the LAD through the stented segment and the first diagonal branch appears to be larger in caliber. The second diagonal is smaller. Both of these diagonal branches are jailed with the stent and the flow is sluggish, and this maybe represents her cause for angina. The stent itself in the LAD is widely patent with remarkably good flow. There is no other disease in the LAD other than the stented area, and the 2 diagonal branches have disease at the ostium; flow is compromised by the stent. LEFT POSTERIOR CIRCUMFLEX CORONARY ARTERY: Nondominant vessel. It gives off a good- sized obtuse marginal that runs laterally. The origin of the obtuse marginal has about a 40% lesion as it comes off. I took multiple views and there is evidence of about 40% to 50% narrowing. The circumflex itself beyond that is free of significant disease and distally gives off 2 small posterolateral branches. The circumflex marginal is large in caliber and distribution. It divides into 2 branches, an upper and lower branch. The upper branch is small, has mild diffuse disease. Lower branch is larger and has proximal disease of about 60%. The ostium of circumflex has about a 40% to 50% lesion. The distal branches of circumflex also have disease. LEFT VENTRICULOGRAM: Left ventriculogram was not performed. FINAL IMPRESSION: This patient has a widely patent LAD that was stented, but there are 2 diagonal branches that are coming from the stented segment where the flow is sluggish and could be responsible for her angina. She has a dominant RCA with a 35% proximal lesion. Circumflex is nondominant. A large obtuse marginal has an ostial lesion of 45% to 50%. It divides into 2 branches. The inferior branch has about a 60% stenosis. Filling pressures are mildly elevated. No gradient across the aortic valve. RECOMMENDATIONS: I am recommending continued medical therapy for now, and in a few weeks I will consider performing FFR of the circumflex lesion for intervention. Distal branch of circumflex also has disease, but the flow is good and I believe continued medical therapy may be a better approach for that. I discussed my findings in great detail with the patient as well as her . We will pursue medical therapy for now. She was sent to the room in a stable condition. MMODL / IJN: [id number] /
[2020-05-06 20:36] LABS: Glucose,Whole Blood 215 mg/dL (75-99)
[2020-05-06] MEDS: DICLOFENAC SODIUM GEL 100 GM TUBE TOPICAL SCH (20:54)
[2020-05-07 04:08] VITALS: TEMP 97.9
[2020-05-07] MEDS: HEPARIN SOD,PORK IN 0.45% NACL 25,000 UNIT in 0.45% NACL 1 250ML.BAG IV SCH (05:34)
[2020-05-07 06:12] LABS: Glucose,Whole Blood 159 mg/dL (75-99)
[2020-05-07] MEDS: INSULIN ASPART (NovoLOG) 100 UNIT/ML VIAL SQ SCH ×2 (06:32→13:49)
[2020-05-07 08:04] LABS: Basophils % (A) 0 %; Eosinophils # (A) 0.2 k/uL (0-0.7); Eosinophils % (A) 3 %; HCT 37.1 % (34.0-46.0); HGB 12.6 gm/dL (11.4-16.0); Lymphocytes # (A) 2.3 k/uL (1.0-4.8); Lymphocytes % (A) 28 %; MCH 31.4 pg (25.0-35.0); MCHC 34.1 g/dL (31.0-37.0); MCV 92.3 fL (80.0-100.0); Mean Platelet Volume 7.4; Monocytes # (A) 0.3 k/uL (0-1.0); Monocytes % (A) 3 %; Neutrophils # (A) 5.3 k/uL (1.3-7.7); Neutrophils % (A) 65 %; Platelet Count 258 k/uL (150-450); RBC 4.02 m/uL (3.80-5.40); RDW 13.6 % (11.5-15.5); WBC 8.2 k/uL (3.8-10.6)
[2020-05-07 08:19] LABS: Prothrombin Time 10.4 sec (9.0-12.0)
[2020-05-07] MEDS ORDERED: ASPIRIN 81 MG PO SCH (09:00)
[2020-05-07] MEDS ORDERED: LIDOCAINE 5% PATCH TOPICAL SCH (09:00)
[2020-05-07] MEDS ORDERED: lisinopriL 10 MG TAB PO SCH (09:00)
[2020-05-07] MEDS ORDERED: FUROSEMIDE 40 MG TAB PO SCH (09:00)
[2020-05-07] MEDS: METOPROLOL TARTRATE 25 MG TAB PO SCH (09:16)
[2020-05-07] MEDS: PRASUGREL 10 MG TAB PO SCH (09:16)
[2020-05-07] MEDS: DICLOFENAC SODIUM GEL 100 GM TUBE TOPICAL SCH (09:18)
[2020-05-07] MEDS: ISOSORBIDE MONONITRATE ER 15 MG TAB PO SCH (09:18)
[2020-05-07] MEDS: MORPHINE SULFATE IR 15 MG TABLET PO PRN (09:30)
[2020-05-07 09:38] VITALS: BP 145/70; PULSE 57; RESP 16
--- NOTE | 2020-05-07 11:53 | P.DS ---
Providers Date of admission: 05/05/20 22:30 Expected date of discharge: 05/07/20 Attending physician: Arthur Elliott Consults: 05/05/20 22:30 Consult Physician Urgent Consulting Provider: Eliana Rose Consult Reason/Comments: cp Do you want consulting provider notified?: Yes Primary care physician: [facility] Course: History of Present Illness This is a 49-year-old -[place] female patient follows at the [facility] under the care of Gabriela Urban NP. She has a past medical history of recently diagnosed MRI and stent placement to the mid LAD on April 28 at [facility] in [place],, moderate intermittent asthma, diabetes mellitus type 2, hypertension, hyperlipidemia, history of pituitary tumor status post resection at [facility]. Patient states that she developed a chest pain that became very sick with severe and her drove her to [facility] as they were in that area. This was on April 26, patient suddenly underwent heart catheterization and had stent placement to the LAD on [address] Ayaz Rivera. She was discharged on May 01. She states she has had continued pain since that time and then has not completely resolved. She developed swelling in the neck back and shoulders and pain in her chest seemed to worsen and she came into [facility] for evaluation. Chest x-ray showed no acute process. EKG sinus rhythm at rate of [address] changes. CBC was unremarkable. Sodium 136, potassium 4.0, blood sugar 221, BUN 10 and creatinine 0.8. Troponin 0.577, 0.513, 0.5-2. Triglycerides 121, cholesterol 159, LDL 101, HDL 34, lipase 114. Patient was started on a heparin drip and admitted to the cardiac stepdown unit. Echocardiogram reveals EF 55-60% with mild concentric left ventricular hypertrophy, mild mitral regurgitation, mild tricuspid regurgitation. Patient has been scheduled for heart catheterization. The patient is currently smoking cigars to 3 per day recently cut down since she was hospitalized at [facility]. She does have history of marijuana use but stopped using. She denies any alcohol abuse, illicit drug use. 05/07: Patient went to the Ob/Gyn Doctor yesterday with Dr. NIMISHA Ojeda found to have a widely patent LAD that was stented, but 2 diagonal branches coming from the stented segment where the flow is sluggish and could be responsible for her angina. Dominant RCA with a 35% proximal lesion. Circumflex is non-dominant. Large obtuse marginal has an ostial lesion of 45-50%. It divides into 2 branches and inferior branch has 60% stenosis. Recommendations for medical therapy for now in in a few weeks he will consider performing FFR of the circumflex lesion for intervention. This morning, patient complains of left shoulder pain and she has been recommended to follow-up with orthopedics for outpatient evaluation. Patient to follow-up with the [facility]'s clinic. Patient will be discharged home today in stable condition. Assessment and Plan 1. Possible non-ST elevated myocardial infarction with abnormal troponins could be related to her recent intervention. Most likely unstable angina. 2. Recent myocardial infarction with stent placement to the mid LAD. 3. Moderate intermittent asthma, stable without exacerbation. 4. Hyperlipidemia. 5. Diabetes mellitus type 2. 6. Hypertension. 7. History of pituitary tumor status post resection. 8. COVID-19 testing. Discharge plan: Return home. Impression and plan of care have been directed as dictated by the signing physician. Apurva Man nurse practitioner acting as scribe for signing physician. Patient Condition at Discharge: Good Plan - Discharge Summary New Discharge Prescriptions: New Isosorbide Mononitrate ER [Imdur] 15 mg PO DAILY #30 dose Metoprolol Tartrate [Lopressor] 25 mg PO BID #60 tab Continue Montelukast [Singulair] 10 mg PO HS PRN PRN Reason: Allergy Symptoms Prasugrel [Effient] 10 mg PO DAILY Nitroglycerin Sl Tabs [Nitrostat] 0.4 mg SUBLINGUAL Q5M PRN PRN Reason: Chest Pain Morphine Sulfate Ir [MSIR] 30 mg PO Q6H PRN PRN Reason: Moderate Pain Methocarbamol [Robaxin] 750 mg PO Q8H PRN PRN Reason: Muscle Spasm Loratadine [Claritin] 10 mg PO DAILY PRN PRN Reason: Allergy Symptoms Lisinopril [Zestril] 10 mg PO DAILY Furosemide [Lasix] 40 mg PO DAILY Diclofenac Sodium Gel [Voltaren Gel] 2 gm TOPICAL BID Ipratropium-Albuterol Nebulize [Duoneb 0.5 mg-3 mg/3 ml Soln] 3 ml INHALATION RT-Q4H PRN PRN Reason: Shortness Of Breath Atorvastatin [Lipitor] 80 mg PO HS Aspirin EC [Ecotrin Low Dose] 81 mg PO DAILY Albuterol Sulfate [Ventolin HFA] 2 puff INHALATION RT-Q6H PRN PRN Reason: Shortness Of Breath Acetaminophen Tab [Tylenol] 650 mg PO Q4H PRN PRN Reason: Pain metFORMIN HCL [Glucophage] 500 mg PO AC-BID #0 Discontinued Carvedilol [Coreg] 6.25 mg PO BID Discharge Medication List Montelukast [Singulair] 10 mg PO HS PRN 09/08/17 [History] Acetaminophen Tab [Tylenol] 650 mg PO Q4H PRN 05/05/20 [History] Albuterol Sulfate [Ventolin HFA] 2 puff INHALATION RT-Q6H PRN 05/05/20 [History] Aspirin EC [Ecotrin Low Dose] 81 mg PO DAILY 05/05/20 [History] Atorvastatin [Lipitor] 80 mg PO HS 05/05/20 [History] Diclofenac Sodium Gel [Voltaren Gel] 2 gm TOPICAL BID 05/05/20 [History] Furosemide [Lasix] 40 mg PO DAILY 05/05/20 [History] Ipratropium-Albuterol Nebulize [Duoneb 0.5 mg-3 mg/3 ml Soln] 3 ml INHALATION RT-Q4H PRN 05/05/20 [History] Lisinopril [Zestril] 10 mg PO DAILY 05/05/20 [History] Loratadine [Claritin] 10 mg PO DAILY PRN 05/05/20 [History] Methocarbamol [Robaxin] 750 mg PO Q8H PRN 05/05/20 [History] Morphine Sulfate Ir [MSIR] 30 mg PO Q6H PRN 05/05/20 [History] Nitroglycerin Sl Tabs [Nitrostat] 0.4 mg SUBLINGUAL Q5M PRN 05/05/20 [History] Prasugrel [Effient] 10 mg PO DAILY 05/05/20 [History] Isosorbide Mononitrate ER [Imdur] 15 mg PO DAILY #30 dose 05/07/20 [Rx] Metoprolol Tartrate [Lopressor] 25 mg PO BID #60 tab 07/17/20 [Rx] metFORMIN HCL [Glucophage] 500 mg PO AC-BID #0 05/07/20 [Rx] Follow up Appointment(s)/Referral(s): Will Ojeda MD [STAFF PHYSICIAN] - 2 Weeks [facility] [Primary Care Provider] - 05/11/20 1:00 pm Patient Instructions/Handouts: Chest Pain (ED) Activity/Diet/Wound Care/Special Instructions: Patient is cleared to return to work on Sunday. Discharge Disposition: HOME SELF-CARE
[2020-05-07 12:02] LABS: Glucose,Whole Blood 195 mg/dL (75-99)
--- NOTE | 2020-05-07 16:20 | PN ---
PROGRESS NOTE Mrs. Balbuena had a cardiac cath yesterday. It revealed that the LAD that was stented on April 28 in [facility] was patent. There were two diagonals that were jailed. Therefore she has angina. She was also has a 50% circumflex marginal. We will pursue medical therapy. She does have all the medications necessary. Right groin is clean and dry. Vitals are stable. No JVD. S1, S2 heard normally. Lungs are clear. Abdomen and lower extremity exam unchanged. Plan is to discharge her today and I will see her in the office in 2 weeks. MMODL / IJN: [id number] /
== END 2020-05-07 14:50 | disposition home or self-care (01) ==
LOC: EC 20:36 → INTOOBSV 22:30 → 3SCARD 22:30 → UNDODISIN 05-07 14:50
PROVIDERS: ADMIT Internal Medicine Geriatric Medicine; ATTEND Internal Medicine Geriatric Medicine
DX: I21.4 Non-ST elevation (NSTEMI) myocardial infarction (principal); Z68.41 Body mass index [BMI] 40.0-44.9, adult; I25.110 Atherosclerotic heart disease of native coronary artery with unstable angina pectoris; E78.5 Hyperlipidemia, unspecified; E11.9 Type 2 diabetes mellitus without complications; F17.200 Nicotine dependence, unspecified, uncomplicated; F32.9 Major depressive disorder, single episode, unspecified; F41.9 Anxiety disorder, unspecified; M06.9 Rheumatoid arthritis, unspecified; J45.20 Mild intermittent asthma, uncomplicated; F12.90 Cannabis use, unspecified, uncomplicated; E66.9 Obesity, unspecified; I11.9 Hypertensive heart disease without heart failure; Z79.899 Other long term (current) drug therapy; Z79.84 Long term (current) use of oral hypoglycemic drugs; Z79.82 Long term (current) use of aspirin; Z79.02 Long term (current) use of antithrombotics/antiplatelets; Z95.5 Presence of coronary angioplasty implant and graft; Z91.010 Allergy to peanuts; Z91.018 Allergy to other foods; Z91.09 Other allergy status, other than to drugs and biological substances; Z98.891 History of uterine scar from previous surgery; Z98.51 Tubal ligation status; Z80.9 Family history of malignant neoplasm, unspecified; Z03.818 Encounter for observation for suspected exposure to other biological agents ruled out
CPT/HCPCS: 96376 ×2; 96366; 96375; 93005 ×3; 96365; 99291; 36415; 93306; 93458; 83880; 80061; 80053; 83690; 83735; 84484 ×2; 85025 ×3; 85610 ×3; 85730 ×2; 71046; G0378 ×3; C1760; C1894; C1769 ×2; U0003; J2250; J1644 ×2; J2001; J2270; J1170; Q9967; 96374

== ENCOUNTER → 2020-05-14 | Outpatient (CLI) | payer OTHER ==
--- NOTE | 2020-05-14 09:58 | XR ---
EXAMINATION TYPE: XR shoulder complete LT DATE OF EXAM: 05/14/2020 COMPARISON: NONE HISTORY: 49-year-old female M25.512, left shoulder pain TECHNIQUE: 3 views FINDINGS: Mild degenerative spurring at the AC joint. Subacromial space is preserved. No tendinous or bursal ca lcifications. A some overpenetration. IMPRESSION: Mild degenerative change at the AC joint. No acute osseous abnormality seen. Overpenetrated exam.
== END | disposition home or self-care (01) ==
LOC: LABWHC1 08:28
PROVIDERS: ATTEND Nurse Practitioner
DX: M25.512 Pain in left shoulder (principal); M19.012 Primary osteoarthritis, left shoulder

== ENCOUNTER → 2020-06-26 | Outpatient (CLI) | payer OTHER ==
--- NOTE | 2020-06-26 15:39 | MR ---
EXAMINATION TYPE: MR shoulder LT wo con DATE OF EXAM: 06/26/2020 COMPARISON: None HISTORY: Left shoulder pain. Multiplanar multiecho imaging of the left shoulder was performed without contrast. The biceps tendon is intact. Subscapularis tendon is intact. Glenoid anisa appear intact. The AC join t is intact. There is minimal increased signal in the supraspinatus tendon at the attachment on the g reater tuberosity of the humerus. There is no full-thickness tear. There is no retraction. I see no s ignificant subacromial impingement. There is no evidence of focal bony destructive process. There is a 5 mm degenerative cyst in the grea ter tuberosity of the humerus. IMPRESSION: Minimal increased signal in the supraspinatus tendon consistent with mild tendinitis. No evidence of a full-thickness tear. Small degenerative cyst in the greater tuberosity of the humerus.
== END | disposition home or self-care (01) ==
LOC: RADMRIMAIN 12:29
PROVIDERS: ATTEND Nurse Practitioner
DX: M85.612 Other cyst of bone, left shoulder (principal); R93.7 Abnormal findings on diagnostic imaging of other parts of musculoskeletal system

== ENCOUNTER 2020-10-02 10:38 | Emergency (ER) | payer OTHER ==
[2020-10-02 10:48] VITALS: BP 170/101; PULSE 88; RESP 16; TEMP 98.2
[2020-10-02] MEDS ORDERED: PROPARACAINE 0.5% OPHTH DROPS 15 ML BTL LEFT EYE STA (11:06)
--- NOTE | 2020-10-02 11:25 | ED ---
Eye Problem HPI - General Chief complaint: Eye Problems Stated complaint: Eye Irritation Time Seen by Provider: 10/02/20 10:49 Source: patient, family Mode of arrival: wheelchair Limitations: no limitations - History of Present Illness Initial comments: Patient is a 49-year-old female presenting to the emergency Department with complaints of eye irritation and the left eye 2 days. She arrived with an eye patch on her left eye. Patient states she woke up a few days ago noticed her eye was red and felt irritated. She denies any foreign body into the eye. She denies wearing contacts. Patient states over the last 24 hours she's been having yellow drainage from the eye and increased irritation. Patient denies any fever, chills, dizziness, headache, significant eye pain. Patient states she does have a daughter and a granddaughter that had similar symptoms this week. Patient has no further complaints at this time. Upon arrival to the ER h er vitals are stable. - Related Data Home Medications Medication Instructions Recorded Confirmed Montelukast [Singulair] 10 mg PO HS PRN 09/08/17 05/05/20 Acetaminophen Tab [Tylenol] 650 mg PO Q4H PRN 05/05/20 05/05/20 Albuterol Sulfate [Ventolin HFA] 2 puff INHALATION RT-Q6H PRN 05/05/20 05/05/20 Aspirin EC [Ecotrin Low Dose] 81 mg PO DAILY 05/05/20 05/05/20 Atorvastatin [Lipitor] 80 mg PO HS 05/05/20 05/05/20 Diclofenac Sodium Gel [Voltaren 2 gm TOPICAL BID 05/05/20 05/05/20 Gel] Furosemide [Lasix] 40 mg PO DAILY 05/05/20 05/05/20 Ipratropium-Albuterol Nebulize 3 ml INHALATION RT-Q4H PRN 05/05/20 05/05/20 [Duoneb 0.5 mg-3 mg/3 ml Soln] Loratadine [Claritin] 10 mg PO DAILY PRN 05/05/20 05/05/20 Morphine Sulfate Ir [MSIR] 30 mg PO Q6H PRN 05/05/20 05/05/20 Nitroglycerin Sl Tabs [Nitrostat] 0.4 mg SUBLINGUAL Q5M PRN 05/05/20 05/05/20 Prasugrel [Effient] 10 mg PO DAILY 05/05/20 05/05/20 lisinopriL [Zestril] 10 mg PO DAILY 05/05/20 05/05/20 methocarbamoL [Robaxin] 750 mg PO Q8H PRN 05/05/20 05/05/20 Previous Rx's Medication Instructions Recorded Isosorbide Mononitrate ER [Imdur] 15 mg PO DAILY #30 dose 05/07/20 Metoprolol Tartrate [Lopressor] 25 mg PO BID #60 tab 05/07/20 metFORMIN HCL [Glucophage] 500 mg PO AC-BID #0 05/07/20 Polymyxin B-Trimeth Sulf Ophth 2 drops LEFT EYE Q4H 7 Days #1 10/02/20 [Polytrim Opthalmic] bottle Allergies Allergy/AdvReac Type Severity Reaction Status Date / Time peanut Allergy HIVES Verified 10/02/20 10:44 rice Allergy Rash/Hives Verified 10/02/20 10:44 seasonal Allergy Rash/Hives Uncoded 10/02/20 10:44 Review of Systems ROS Statement: Those systems with pertinent positive or pertinent negative responses have been documented in the HPI. ROS Other: All systems not noted in ROS Statement are negative. Past Medical History Past Medical History: Asthma, Diabetes Mellitus, Hyperlipidemia, Hypertension, Musculoskeletal Disorder, Thyroid Disorder Additional Past Medical History / Comment(s): Back Pain. Hx Pituitary Tumor, BENIGN. Thyroid disorder. History of Any Multi-Drug Resistant Organisms: None Reported Past Surgical History: Section, Heart Catheterization With Stent, Tubal Ligation Additional Past Surgical History / Comment(s): Pituitary Tumor Removed. Past Anesthesia/Blood Transfusion Reactions: No Reported Reaction Date of Last Stent Placement:: april 28 2020 Past Psychological History: Anxiety, Depression Smoking Status: Current every day smoker Past Alcohol Use History: None Reported Past Drug Use History: Marijuana - Past Family History Mother Family Medical History: Deep Vein Thrombosis (DVT) Additional Family Medical History / Comment(s): Mother is alive at age 67 with history of coronary artery disease and three-vessel CABG. Daughter(s) Family Medical History: Deep Vein Thrombosis (DVT) Additional Family Medical History / Comment(s): Patient has a total of 9 children with no major medical problems. Father Family Medical History: Cancer Additional Family Medical History / Comment(s): Father is alive with no history of coronary artery disease. History of Prostate Cancer Sister(s) Additional Family Medical History / Comment(s): The patient has 4 sisters and 1 brother. One sister had a myocardial infraction at age 40. General Exam - General Exam Comments Initial Comments: GENERAL: Patient is well-developed and well-nourished. Patient is nontoxic and in no acute distress. HEAD: Atraumatic, normocephalic. EYES: Pupils equal round and reactive to light, extraocular movements intact, sclera anicteric. Left conjunctiva is injected, yellowish drainage around the entire eye, some mild eye swelling. Pressures are normal bilaterally. ENT: TMs normal, nares patent, oropharynx clear without exudates. Moist mucous membranes. NECK: Normal range of motion, supple without lymphadenopathy or JVD. LUNGS: Unlabored respirations. Breath sounds clear to auscultation bilaterally and equal. No wheezes rales or rhonchi. HEART: Regular rate and rhythm without murmurs, rubs or gallops. ABDOMEN: Soft, nontender, normoactive bowel sounds. No guarding, no rebound. No masses appreciated. : Deferred MUSCULOSKELETAL: Normal extremities with adequate strength and normal range of motion, no pitting or edema. No clubbing or cyanosis. NEUROLOGICAL: Patient is alert and oriented x 3. Motor and sensory are also intact. Cranial nerves II through XII grossly intact. Symmetrical smile. Normal speech, normal gait. PSYCH: Normal mood, normal affect. SKIN: Warm, Dry, normal turgor, no rashes or lesions noted. Limitations: no limitations Course Vital Signs 10/02/20 10:44 Temperature 98.2 F Pulse Rate 88 Respiratory 16 Rate Blood Pressure 170/101 O2 Sat by Pulse 98 Oximetry Medical Decision Making - Medical Decision Making Patient is a 49-year-old female here for left eye irritation 2 days. Her left eyes injected, yellowish drainage, consistent with bacterial conjunctivitis. Eye pressures were normal. I did give her a few drops of proparacaine which did seem to help the irritation. I will start her on Polytrim eyedrops. She is stable for discharge. If symptoms persist she is to follow-up with her eye doctor. She is in agreement with this plan of care. Disposition Clinical Impression: Bacterial conjunctivitis of left eye Disposition: HOME SELF-CARE Condition: Stable Instructions (If sedation given, give patient instructions): Conjunctivitis (ED) Additional Instructions: Please return to the Emergency Department if symptoms worsen or any other concerns. Use antibiotic eyedrops as prescribed. Also use warm compresses to soothe the eye, keep eye clean. Do not wear the eye patch. If symptoms persist, follow up with GI doctor. Prescriptions: Polymyxin B-Trimeth Sulf Ophth [Polytrim Opthalmic] 2 drops LEFT EYE Q4H 7 Days #1 bottle Is patient prescribed a controlled substance at d/c from ED?: No Referrals: [facility] [Primary Care Provider] - 1-2 days
== END 2020-10-02 11:33 | disposition home or self-care (01) ==
LOC: EC 10:38
DX: H10.89 Other conjunctivitis (principal); J45.909 Unspecified asthma, uncomplicated; E78.5 Hyperlipidemia, unspecified; I10 Essential (primary) hypertension; F41.9 Anxiety disorder, unspecified; F32.9 Major depressive disorder, single episode, unspecified; F17.200 Nicotine dependence, unspecified, uncomplicated; Z79.82 Long term (current) use of aspirin; Z79.899 Other long term (current) drug therapy; Z95.5 Presence of coronary angioplasty implant and graft; Z91.010 Allergy to peanuts; Z91.018 Allergy to other foods; Z91.048 Other nonmedicinal substance allergy status
CPT/HCPCS: 99283

== ENCOUNTER → 2021-07-27 | Outpatient (CLI) | payer OTHER ==
[2021-07-27 19:32] LABS: Chol/HDL Ratio 5.22 Ratio; HDL Cholesterol 45.2 mg/dL (40.00-60.00); LDL Cholesterol,Calculated 173.8 mg/dL (0.0-131.0); Phosphorus 3.8 mg/dL (2.4-5.1); Triglycerides 85.2 mg/dL (0.00-149.00); VLDL Calculation 17.04 mg/dL (5.00-40.00)
[2021-07-27 20:04] LABS: African American GFR (CKD) 87.9 (60.0-200.0); Albumin 4.3 g/dL (3.8-4.9); Anion Gap 15.2 mmol/L (4.00-12.00); BUN/Creat Ratio 8.36 Ratio (12.00-20.00); Blood Urea Nitrogen 7.5 mg/dL (9.0-27.0); Calcium 9.4 mg/dL (8.7-10.3); Carbon Dioxide 24.1 mmol/L (21.6-31.8); Non-African American GFR(CKD) 75.8 (60.0-200.0)
== END | disposition home or self-care (01) ==
LOC: LABWHC1 08:50
PROVIDERS: ATTEND Specialist
DX: E66.01 Morbid (severe) obesity due to excess calories (principal); I25.119 Atherosclerotic heart disease of native coronary artery with unspecified angina pectoris; E11.9 Type 2 diabetes mellitus without complications; I10 Essential (primary) hypertension; E78.00 Pure hypercholesterolemia, unspecified; R60.0 Localized edema; Z68.42 Body mass index [BMI] 45.0-49.9, adult
CPT/HCPCS: 36415; 80048; 80061; 80069; 84450; 84460; 86141

== ENCOUNTER → 2021-07-27 | Outpatient (CLI) | payer OTHER | END | disposition home or self-care (01) | LOC: LABWHC1 08:53 | PROVIDERS: ATTEND Family Medicine | DX: E11.65 Type 2 diabetes mellitus with hyperglycemia (principal) | CPT/HCPCS: 36415; 82043; 82570; 83036 ==

== ENCOUNTER 2021-09-26 07:51 | Emergency (ER) | payer OTHER ==
[2021-09-26 08:02] VITALS: BP 136/86; PULSE 72; RESP 18; TEMP 98.3
--- NOTE | 2021-09-26 08:27 | ED ---
General Adult HPI - General Chief complaint: Syncope Stated complaint: Covid+, syncope, toe injury Time Seen by Provider: 09/26/21 08:03 Source: patient, family Mode of arrival: wheelchair Limitations: no limitations - History of Present Illness Initial comments: Dictation was produced using [employer] dictation software. please excuse any grammatical, word or spelling errors. Chief Complaint: 50-year-old female presents to the emergency Department with left foot pain History of Present Illness: Patient is a 42-year-old female she has past medical history of asthma, diabetes and hypertension. Patient states that last night she had an episode where she fell to the ground. She does not remember passing out. Next 6 or more she is on the floor. She notes that when she will go on the floor she had left foot pain. She states that she is by herself and syncopal episode was unwitnessed. Patient reports that she tested positive for cocaine 2 days ago. She is unvaccinated. There is yet tested was because she needs to the tested frequently at work. She works at a [employer]. Patient states that she has mild episodes of diarrhea and abdominal cramping. The ROS documented in this emergency department record has been reviewed and confirmed by me. Those systems with pertinent positive or negative responses have been documented in the HPI. All other systems are other negative and/or noncontributory. PHYSICAL EXAM: General Impression: Alert and oriented x3, not in acute distress HEENT: Normocephalic atraumatic, extra-ocular movements intact, pupils equal and reactive to light bilaterally, mucous membranes moist. Cardiovascular: Heart regular rate and rhythm Chest: Able to complete full sentences, no retractions, no tachypnea Abdomen: abdomen soft, non-tender, non-distended, no organomegaly Musculoskeletal: Pulses present and equal in all extremities, no peripheral edema Motor: no focal deficits noted Left foot: Pain over the first metatarsal bone and left lateral malleolus, no gross deformities Neurological: CN II-XII grossly intact, no focal motor or sensory deficits noted Skin: Intact with no visualized rashes Psych: Normal affect and mood ED course: 50-year-old feel presents with left foot pain after syncopal episode last night. Patient is 2 days positive of coronavirus. Vital signs upon arrival are within acceptable limits. Patient denies any respiratory symptoms. EKG is unremarkable. Patient requested shoulder x-ray for chronic shoulder pain for several months. CBC, metabolic panel is unremarkable. Ankle x-ray, foot x-ray and shoulder x- rays unremarkable. Patient observed in emergency department for 1 hour 30 minutes. She is reevaluated at bedside at 9:30 and found to be stable medical condition. Patient be discharged. Patient has no high-risk features. She has no history of heart failure or heart problems. EKG interpretation: Ventricular rate 65, normal sinus rhythm, VT interval 150, QRS 88, QTC 393. No VT prolongation, no QTC prolongation, no ST or T-wave ch anges noted. Overall, this EKG is unremarkable - Related Data Home Medications Medication Instructions Recorded Confirmed Montelukast [Singulair] 10 mg PO HS PRN 09/08/17 05/05/20 Acetaminophen Tab [Tylenol] 650 mg PO Q4H PRN 05/05/20 05/05/20 Albuterol Sulfate [Ventolin HFA] 2 puff INHALATION RT-Q6H PRN 05/05/20 05/05/20 Aspirin EC [Ecotrin Low Dose] 81 mg PO DAILY 05/05/20 05/05/20 Atorvastatin [Lipitor] 80 mg PO HS 05/05/20 05/05/20 Diclofenac Sodium Gel [Voltaren 2 gm TOPICAL BID 05/05/20 05/05/20 Gel] Furosemide [Lasix] 40 mg PO DAILY 05/05/20 05/05/20 Ipratropium-Albuterol Nebulize 3 ml INHALATION RT-Q4H PRN 05/05/20 05/05/20 [Duoneb 0.5 mg-3 mg/3 ml Soln] Loratadine [Claritin] 10 mg PO DAILY PRN 05/05/20 05/05/20 Morphine Sulfate Ir [MSIR] 30 mg PO Q6H PRN 05/05/20 05/05/20 Nitroglycerin Sl Tabs [Nitrostat] 0.4 mg SUBLINGUAL Q5M PRN 05/05/20 05/05/20 Prasugrel [Effient] 10 mg PO DAILY 05/05/20 05/05/20 lisinopriL [Zestril] 10 mg PO DAILY 05/05/20 05/05/20 methocarbamoL [Robaxin] 750 mg PO Q8H PRN 05/05/20 05/05/20 Previous Rx's Medication Instructions Recorded Isosorbide Mononitrate ER [Imdur] 15 mg PO DAILY #30 dose 05/07/20 Metoprolol Tartrate [Lopressor] 25 mg PO BID #60 tab 05/07/20 metFORMIN HCL [Glucophage] 500 mg PO AC-BID #0 05/07/20 Polymyxin B-Trimeth Sulf Ophth 2 drops LEFT EYE Q4H 7 Days #1 10/02/20 [Polytrim Opthalmic] bottle Allergies Allergy/AdvReac Type Severity Reaction Status Date / Time peanut Allergy HIVES Verified 09/26/21 08:02 rice Allergy Rash/Hives Verified 09/26/21 08:02 seasonal Allergy Rash/Hives Uncoded 09/26/21 08:02 Review of Systems ROS Statement: Those systems with pertinent positive or pertinent negative responses have been documented in the HPI. ROS Other: All systems not noted in ROS Statement are negative. Past Medical History Past Medical History: Asthma, Diabetes Mellitus, Hyperlipidemia, Hypertension, Musculoskeletal Disorder, Thyroid Disorder Additional Past Medical History / Comment(s): Back Pain. Hx Pituitary Tumor, BENIGN. Thyroid disorder. History of Any Multi-Drug Resistant Organisms: None Reported Past Surgical History: Section, Heart Catheterization With Stent, Tubal Ligation Additional Past Surgical History / Comment(s): Pituitary Tumor Removed. Past Anesthesia/Blood Transfusion Reactions: No Reported Reaction Date of Last Stent Placement:: april 28 2020 Past Psychological History: Anxiety, Depression Smoking Status: Current every day smoker Past Alcohol Use History: None Reported Past Drug Use History: Marijuana - Past Family History Mother Family Medical History: Deep Vein Thrombosis (DVT) Additional Family Medical History / Comment(s): Mother is alive at age 67 with history of coronary artery disease and three-vessel CABG. Daughter(s) Family Medical History: Deep Vein Thrombosis (DVT) Additional Family Medical History / Comment(s): Patient has a total of 9 children with no major medical problems. Father Family Medical History: Cancer Additional Family Medical History / Comment(s): Father is alive with no history of coronary artery disease. History of Prostate Cancer Sister(s) Additional Family Medical History / Comment(s): The patient has 4 sisters and 1 brother. One sister had a myocardial infraction at age 40. General Exam Limitations: no limitations Course Vital Signs 09/26/21 07:52 Temperature 98.3 F Pulse Rate 72 Respiratory 18 Rate Blood Pressure 136/86 O2 Sat by Pulse 94 L Oximetry Medical Decision Making - Lab Data Result diagrams: 09/26/21 08:31 09/26/21 08:31 Lab Results 09/26/21 09/26/21 Range/Units 08:31 08:31 WBC 5.6 (3.8-10.6) k/uL RBC 4.42 (3.80-5.40) m/uL Hgb 13.1 (11.4-16.0) gm/dL Hct 38.3 (34.0-46.0) % MCV 86.8 (80.0-100.0) fL MCH 29.6 (25.0-35.0) pg MCHC 34.2 (31.0-37.0) g/dL RDW 13.4 (11.5-15.5) % Plt Count 231 (150-450) k/uL MPV 7.9 Neutrophils % 52 % Lymphocytes % 37 % Monocytes % 8 % Eosinophils % 1 % Basophils % 0 % Neutrophils # 3.0 (1.3-7.7) k/uL Lymphocytes # 2.1 (1.0-4.8) k/uL Monocytes # 0.5 (0-1.0) k/uL Eosinophils # 0.0 (0-0.7) k/uL Basophils # 0.0 (0-0.2) k/uL Sodium 140 (137-145) mmol/L Potassium 3.7 (3.5-5.1) mmol/L Chloride 106 (98-107) mmol/L Carbon Dioxide 26 (22-30) mmol/L Anion Gap 8 mmol/L BUN 16 (7-17) mg/dL Creatinine 0.92 (0.52-1.04) mg/dL Est GFR (CKD-EPI)AfAm 85 (>60 ml/min/1.73 sqM) Est GFR (CKD-EPI)NonAf 74 (>60 ml/min/1.73 sqM) Glucose 117 H (74-99) mg/dL Calcium 9.1 (8.4-10.2) mg/dL Creatine Kinase 138 H (30-135) U/L Disposition Clinical Impression: Foot contusion, Chronic shoulder pain, Left ankle sprain Disposition: HOME SELF-CARE Condition: Good Instructions (If sedation given, give patient instructions): Ankle Sprain (ED) Is patient prescribed a controlled substance at d/c from ED?: No Referrals: [facility] [Primary Care Provider] - 1-2 days
[2021-09-26 08:40] LABS: Basophils % (A) 0 %; Eosinophils % (A) 1 %; HCT 38.3 % (34.0-46.0); HGB 13.1 gm/dL (11.4-16.0); Lymphocytes # (A) 2.1 k/uL (1.0-4.8); Lymphocytes % (A) 37 %; MCH 29.6 pg (25.0-35.0); MCHC 34.2 g/dL (31.0-37.0); MCV 86.8 fL (80.0-100.0); Mean Platelet Volume 7.9; Monocytes # (A) 0.5 k/uL (0-1.0); Monocytes % (A) 8 %; Neutrophils % (A) 52 %; Platelet Count 231 k/uL (150-450); RBC 4.42 m/uL (3.80-5.40); RDW 13.4 % (11.5-15.5); WBC 5.6 k/uL (3.8-10.6)
[2021-09-26 08:54] LABS: Calcium 9.1 mg/dL (8.4-10.2); Potassium 3.7 mmol/L (3.5-5.1)
--- NOTE | 2021-09-26 09:01 | XR ---
EXAMINATION TYPE: XR ankle complete LT, XR foot complete LT DATE OF EXAM: 09/26/2021 CLINICAL HISTORY: Falling injury with pain TECHNIQUE: Frontal, lateral and oblique images of the left ankle and foot are obtained. COMPARISON: None. FINDINGS: There is no acute fracture/dislocation evident in the left ankle. The ankle mortise appea rs within normal limits. The overlying soft tissue appears unremarkable. There is no acute fracture or dislocation evident in the left foot. Circumflex and in the distal seco nd through fifth toes. Some varus positioning distal fifth toe. Tiny inferior moderate-sized superior calcaneal spurring. Overlying soft tissue is unremarkable. IMPRESSION: There is no acute fracture or dislocation in the left ankle or foot.
--- NOTE | 2021-09-26 09:18 | XR ---
EXAMINATION TYPE: XR shoulder complete RT DATE OF EXAM: 09/26/2021 CLINICAL HISTORY: pain TECHNIQUE: Three views of the right shoulder are obtained. COMPARISON: None FINDINGS: There is no acute fracture/dislocation evident. The acromioclavicular and glenohumeral wade int spaces appear mildly narrowed. Subacromial spurring resulting in probable impingement. Correlate clinically.. The visualized ribs are intact and unremarkable. IMPRESSION: 1. There is no acute fracture or dislocation. ICD 10 NO FRACTURE, INITIAL EVALUATION
== END 2021-09-26 09:32 | disposition home or self-care (01) ==
LOC: EC 07:51
DX: S90.32XA Contusion of left foot, initial encounter (principal); S93.492A Sprain of other ligament of left ankle, initial encounter; M25.511 Pain in right shoulder; J45.909 Unspecified asthma, uncomplicated; E11.9 Type 2 diabetes mellitus without complications; E78.5 Hyperlipidemia, unspecified; I10 Essential (primary) hypertension; E07.9 Disorder of thyroid, unspecified; F41.9 Anxiety disorder, unspecified; F32.A Depression, unspecified; F17.200 Nicotine dependence, unspecified, uncomplicated; F12.90 Cannabis use, unspecified, uncomplicated; Z79.82 Long term (current) use of aspirin; Z79.84 Long term (current) use of oral hypoglycemic drugs; Z98.51 Tubal ligation status; W18.30XA Fall on same level, unspecified, initial encounter
CPT/HCPCS: 36415; 80048; 82550; 85025; 93005; 99284

== ENCOUNTER → 2021-11-12 | Outpatient (CLI) | payer OTHER ==
--- NOTE | 2021-11-12 22:59 | MR ---
EXAMINATION TYPE: MR ankle LT wo con DATE OF EXAM: 11/12/2021 COMPARISON: None HISTORY: Pt passed out and injured left foot/ankle. Multiplanar multiecho imaging of the left ankle without contrast. There is subcutaneous edema around the lower leg and around the ankle joint. Ankle mortise is anatomi c. The talus is intact. Ankle joint space is fairly normal. There is no evidence of a fracture. Achil les tendon is intact. There is Achilles calcaneal spurring. Plantar fascia appears intact. The medial and lateral flexor tendons of the ankle appear intact. There is no evidence of a soft tissue mass. T he collateral ligaments appear intact. I see no bony destructive process. There is small ankle joint effusion. IMPRESSION: No fracture. No evidence of ligament or tendon tear. Mild ankle joint effusion suggestive of some nonspecific mild synovitis. Subcutaneous edema around th e ankle.
== END | disposition home or self-care (01) ==
LOC: RADMRIMAIN 09:00
PROVIDERS: ATTEND Student in an Organized Health Care Education/Training Program
DX: S99.912A Unspecified injury of left ankle, initial encounter (principal)

== ENCOUNTER → 2021-11-22 | Outpatient (CLI) | payer OTHER ==
--- NOTE | 2021-11-22 10:15 | US ---
EXAMINATION TYPE: US carotid duplex BILAT DATE OF EXAM: 11/22/2021 COMPARISON: Prior carotid ultrasound 2010 CLINICAL HISTORY: I65.21 OCCLUSION AND STENOSIS OF RIGHT CAROTID ART. h/o MD, fatigue, no h/o stroke EXAM MEASUREMENTS: RIGHT: Peak Systolic Velocity (PSV) cm/sec ----- Right CCA: 70.7 ----- Right ICA: 84.8 ----- Right ECA: 63.9 ICA/CCA ratio: 1.2 RIGHT: End Diastole cm/sec ----- Right CCA: 21.2 ----- Right ICA: 20.0 ----- Right ECA: 4.9 LEFT: Peak Systolic Velocity (PSV) cm/sec ----- Left CCA: 83.2 ----- Left ICA: 146 ----- Left ECA: 94.2 ICA/CCA ratio: 1.8 LEFT: End Diastole cm/sec ----- Left CCA: 27.2 ----- Left ICA: 44.2 ----- Left ECA: 16.2 VERTEBRALS (direction of flow): Right Vertebral: Antegrade Left Vertebral: Antegrade Rhythm: Normal Mild homogeneous plaque seen with no significant stenosis seen IMPRESSION: No hemodynamically significant stenosis in either internal carotid artery. No significan t change or progression from 2011 ultrasound. Criteria for Assigning % of Stenosis / Diameter reduction (Estimation based on the indirect measurements of the internal carotid artery velocities (ICA PSV). 1. Normal (no stenosis)=ICA PSV < 125 cm/s: ratio < 2.0: ICA EDV<40 cm/s. 2. Less than 50% stenosis=ICA PSV < 125 cm/s: ratio < 2.0: ICA EDV<40 cm/s. 3. 50 to 69% stenosis=ICA PSV of 125 to 230 cm/s: ration 2.0 ? 4.0: ICA EDV 40-100 cm/s. 4. Greater than 70% stenosis to near occlusion= ICA PSV > 230 cm/s: ratio > 4.0: ICA EDV > 100 cm/s. 5. Near occlusion= ICA PSV velocities may be low or undetectable: variable ratio and ICA EDV. 6. Total occlusion=unable to detect flow.
== END | disposition home or self-care (01) ==
LOC: RADUSWWP 08:52
PROVIDERS: ATTEND Family Medicine
DX: I10 Essential (primary) hypertension (principal); E11.40 Type 2 diabetes mellitus with diabetic neuropathy, unspecified; J44.9 Chronic obstructive pulmonary disease, unspecified; Z86.79 Personal history of other diseases of the circulatory system
CPT/HCPCS: 93880

== ENCOUNTER → 2021-11-28 | Outpatient (CLI) | payer OTHER ==
--- NOTE | 2021-11-29 03:38 | MR ---
EXAMINATION TYPE: MR foot LT wo con DATE OF EXAM: 11/28/2021 COMPARISON: None HISTORY: Left foot pain S/P fall 2 mos ago. Multiplanar multi echo imaging of the left foot without contrast. There is subcutaneous edema on the dorsum of the foot. There is an intact Achilles tendon. The medial and lateral flexor tendons appear intact. The plantar fascia appears intact. There is no evidence of a fracture. I see no bony destructive process. There is some mild subcutaneous edema around the lowe r leg. The toes appear intact. Intertarsal joint spaces are fairly normal. The collateral ligaments of the ankle appear intact. IMPRESSION: Subcutaneous edema. No fracture seen. No evidence of ligament or tendon tear.
== END | disposition home or self-care (01) ==
LOC: RADMRIMAIN 17:58
PROVIDERS: ATTEND Student in an Organized Health Care Education/Training Program
DX: R22.42 Localized swelling, mass and lump, left lower limb (principal)

== ENCOUNTER → 2021-12-20 | Outpatient (CLI) | payer OTHER ==
[2021-12-20 14:33] LABS: Basophils # (A) 0.01 X 10*3/uL (0.00-0.10); Basophils % (A) 0.1 %; Eosinophils # (A) 0.15 X 10*3/uL (0.04-0.35); Eosinophils % (A) 1.6 %; HCT 37.7 % (37.2-46.3); HGB 12.2 g/dL (12.0-15.0); Immature Grans, Automated 0.3 %; Lymphocytes # (A) 2.19 X 10*3/uL (0.90-5.00); Lymphocytes % (A) 23.1 %; MCH 28.8 pg (27.0-32.0); MCHC 32.4 g/dL (32.0-37.0); MCV 89.1 fL (80.0-97.0); Mean Platelet Volume 10.3 fL (9.5-12.2); Monocytes % (A) 4.2 %; NRBC Per 100 WBC 0 /100 WBCS (0.0-0.0); Neutrophils # (A) 6.72 X 10*3/uL (1.80-7.70); Neutrophils % (A) 70.7 %; Platelet Count 264 X 10*3/uL (140-440); RBC 4.23 X 10*6/uL (4.10-5.20); RDW 13.8 % (11.5-14.5)
[2021-12-20 15:08] LABS: ALT 28 U/L (8-44); AST 21 U/L (13-35); African American GFR (CKD) 102.5 (60.0-200.0); Albumin/Globulin Ratio 1.27 (1.60-3.17); Alkaline Phosphatase 138 U/L (41-126); BUN/Creat Ratio 10.15 Ratio (12.00-20.00); Calcium 9.7 mg/dL (8.7-10.3); Carbon Dioxide 25.2 mmol/L (20.0-27.5); Chloride 100 mmol/L (96-109); Globulin 3.1 g/dL (1.6-3.3); Glucose 197 mg/dL (70-110); LDL Cholesterol,Calculated 154.1 mg/dL (0.0-131.0); Non-African American GFR(CKD) 88.4 (60.0-200.0); Potassium 3.8 mmol/L (3.5-5.5); Sodium 140 mmol/L (135-145); Total Protein 7.1 g/dL (6.2-8.2)
[2021-12-20 18:04] LABS: Urine Creatinine 65.9 mg/dL (28.0-217.0)
== END | disposition home or self-care (01) ==
LOC: LABWHC1 09:13
PROVIDERS: ATTEND Nurse Practitioner
DX: E11.40 Type 2 diabetes mellitus with diabetic neuropathy, unspecified (principal); J44.9 Chronic obstructive pulmonary disease, unspecified; I10 Essential (primary) hypertension
CPT/HCPCS: 36415; 80053; 80061; 82043; 82306; 82570; 82607; 83036; 84439; 84443; 85025

== ENCOUNTER 2022-01-19 06:55 | Emergency (ER) | payer OTHER ==
[2022-01-19 07:03] VITALS: RESP 18
[2022-01-19] MEDS ORDERED: ONDANSETRON 4 MG/2 ML VIAL IVP STA (07:20)
[2022-01-19] MEDS ORDERED: KETOROLAC 15 MG/ML 1 ML VIAL IVP STA (07:20)
[2022-01-19] MEDS ORDERED: SODIUM CHLORIDE 0.9% 1,000 ML IV STA (07:20)
--- NOTE | 2022-01-19 07:24 | ED ---
Abdominal Pain HPI - General Chief Complaint: Abdominal Pain Stated Complaint: Abd Pain Time Seen by Provider: 01/19/22 07:04 Source: patient, family, RN notes reviewed Mode of arrival: wheelchair Limitations: no limitations - History of Present Illness Initial Comments: 51-year-old female presents emergency Department with chief complaint of abdominal pain. Patient states she's been having abdominal pain for over a year but some things change recently she noticed a bulging on her left side, increasing abdominal pain. Patient states that she has been constipated. She has no dysuria no hematuria she's had slight nausea no vomiting no reported fev er. Patient's had prior section, tubal ligation she denies any chest pain shortness of breath. - Related Data Home Medications Medication Instructions Recorded Confirmed Albuterol Sulfate [Ventolin HFA] 2 puff INHALATION RT-Q6H PRN 05/05/20 01/19/22 Aspirin EC [Ecotrin Low Dose] 81 mg PO DAILY 05/05/20 01/19/22 Atorvastatin [Lipitor] 80 mg PO HS 05/05/20 01/19/22 Furosemide [Lasix] 40 mg PO DAILY PRN 05/05/20 01/19/22 Ipratropium-Albuterol Nebulize 3 ml INHALATION RT-TID PRN 05/05/20 01/19/22 [Duoneb 0.5 mg-3 mg/3 ml Soln] Loratadine [Claritin] 10 mg PO DAILY PRN 05/05/20 01/19/22 Nitroglycerin Sl Tabs [Nitrostat] 0.4 mg SUBLINGUAL Q5M PRN 05/05/20 01/19/22 Prasugrel [Effient] 10 mg PO DAILY 05/05/20 01/19/22 Cholecalciferol [Vitamin D3 (125 125 mcg PO DAILY 01/17/22 01/19/22 Mcg = 5000 Iu)] Losartan Potassium [Cozaar] 100 mg PO DAILY 01/17/22 01/19/22 Metoprolol Succinate [Toprol XL] 200 mg PO DAILY 01/17/22 01/19/22 Potassium Chloride [Potassium 10 meq PO DAILY PRN 01/17/22 01/19/22 Chloride ER] Docusate [Colace] 100 mg PO BID 01/19/22 01/19/22 Dulaglutide [Trulicity] 1.5 mg SQ WE 01/19/22 01/19/22 Isosorbide Mononitrate ER [Imdur] 15 mg PO DAILY 01/19/22 01/19/22 Montelukast [Singulair] 10 mg PO DAILY PRN 01/19/22 01/19/22 metFORMIN HCL [Glucophage] 1,000 mg PO BID 01/19/22 01/19/22 Allergies Allergy/AdvReac Type Severity Reaction Status Date / Time peanut Allergy HIVES Verified 01/19/22 08:24 rice Allergy Rash/Hives Verified 01/19/22 08:24 seasonal Allergy Rash/Hives Uncoded 01/19/22 07:03 Review of Systems ROS Statement: Those systems with pertinent positive or pertinent negative responses have been documented in the HPI. ROS Other: All systems not noted in ROS Statement are negative. Past Medical History Past Medical History: Asthma, Diabetes Mellitus, Hyperlipidemia, Hypertension, Musculoskeletal Disorder, Thyroid Disorder Additional Past Medical History / Comment(s): Back Pain, right shoulder pain, Hx Pituitary Tumor, BENIGN. Thyroid disorder. History of Any Multi-Drug Resistant Organisms: None Reported Past Surgical History: Section, Heart Catheterization With Stent, Tubal Ligation Additional Past Surgical History / Comment(s): Pituitary Tumor Removed. Past Anesthesia/Blood Transfusion Reactions: No Reported Reaction Date of Last Stent Placement:: april 28 2020 Past Psychological History: Anxiety, Depression Smoking Status: Former smoker Past Alcohol Use History: None Reported Past Drug Use History: Marijuana - Past Family History Mother Family Medical History: Deep Vein Thrombosis (DVT) Additional Family Medical History / Comment(s): Mother is alive at age 67 with history of coronary artery disease and three-vessel CABG. Daughter(s) Family Medical History: Deep Vein Thrombosis (DVT) Additional Family Medical History / Comment(s): Patient has a total of 9 children with no major medical problems. Father Family Medical History: Cancer Additional Family Medical History / Comment(s): Father is alive with no history of coronary artery disease. History of Prostate Cancer Sister(s) Additional Family Medical History / Comment(s): The patient has 4 sisters and 1 brother. One sister had a myocardial infraction at age 40. General Exam Limitations: no limitations General appearance: alert, in no apparent distress Head exam: Present: atraumatic, normocephalic, normal inspection Eye exam: Present: normal appearance, PERRL, EOMI. Absent: scleral icterus, conjunctival injection, periorbital swelling ENT exam: Present: normal exam, normal oropharynx, mucous membranes moist Neck exam: Present: normal inspection, full ROM. Absent: tenderness, meningi smus, lymphadenopathy Respiratory exam: Present: normal lung sounds bilaterally. Absent: respiratory distress, wheezes, rales, rhonchi, stridor Cardiovascular Exam: Present: regular rate, normal rhythm, normal heart sounds. Absent: systolic murmur, diastolic murmur, rubs, gallop, clicks GI/Abdominal exam: Present: soft, tenderness, normal bowel sounds. Absent: distended, guarding, rebound, rigid Neurological exam: Present: alert Course Vital Signs 01/19/22 01/19/22 01/19/22 06:56 08:09 09:57 Temperature 97.9 F Pulse Rate 95 68 62 Respiratory 18 18 18 Rate Blood Pressure 165/87 197/96 183/96 O2 Sat by Pulse 95 97 96 Oximetry Medical Decision Making - Medical Decision Making Labs reviewed and mild hyperglycemia patient is known diabetic. Patient CT does not reveal any acute findings. Patient we discharged with follow-up with surgeon. Return parameters were discussed. - Lab Data Result diagrams: 01/19/22 07:50 01/19/22 07:50 Lab Results 01/19/22 01/19/22 01/19/22 Range/Units 07:50 07:50 07:50 WBC 9.3 (3.8-10.6) k/uL RBC 4.43 (3.80-5.40) m/uL Hgb 12.9 (11.4-16.0) gm/dL Hct 39.9 (34.0-46.0) % MCV 90.2 (80.0-100.0) fL MCH 29.1 (25.0-35.0) pg MCHC 32.3 (31.0-37.0) g/dL RDW 13.9 (11.5-15.5) % Plt Count 250 (150-450) k/uL MPV 7.7 Neutrophils % 58 % Lymphocytes % 33 % Monocytes % 4 % Eosinophils % 3 % Basophils % 1 % Neutrophils # 5.4 (1.3-7.7) k/uL Lymphocytes # 3.1 (1.0-4.8) k/uL Monocytes # 0.4 (0-1.0) k/uL Eosinophils # 0.3 (0-0.7) k/uL Basophils # 0.1 (0-0.2) k/uL Sodium 137 (137-145) mmol/L Potassium 4.3 (3.5-5.1) mmol/L Chloride 104 (98-107) mmol/L Carbon Dioxide 26 (22-30) mmol/L Anion Gap 7 mmol/L BUN 13 (7-17) mg/dL Creatinine 0.74 (0.52-1.04) mg/dL Est GFR (CKD-EPI)AfAm >90 (>60 ml/min/1.73 sqM) Est GFR (CKD-EPI)NonAf >90 (>60 ml/min/1.73 sqM) Glucose 248 H (74-99) mg/dL Plasma Lactic Acid Nick 1.1 (0.7-2.0) mmol/L Calcium 9.2 (8.4-10.2) mg/dL Total Bilirubin 0.5 (0.2-1.3) mg/dL AST 18 (14-36) U/L ALT 18 (4-34) U/L Alkaline Phosphatase 123 (38-126) U/L Total Protein 7.3 (6.3-8.2) g/dL Albumin 3.9 (3.5-5.0) g/dL Amylase 67 (30-110) U/L Lipase 214 (23-300) U/L Urine Color Urine Appearance (Clear) Urine pH (5.0-8.0) Ur Specific [place] (1.001-1.035) Urine Protein (Negative) Urine Glucose (UA) (Negative) Urine Ketones (Negative) Urine Blood (Negative) Urine Nitrite (Negative) Urine Bilirubin (Negative) Urine Urobilinogen (<2.0) mg/dL Ur Leukocyte Esterase (Negative) 01/19/22 Range/Units 08:09 WBC (3.8-10.6) k/uL RBC (3.80-5.40) m/uL Hgb (11.4-16.0) gm/dL Hct (34.0-46.0) % MCV (80.0-100.0) fL MCH (25.0-35.0) pg MCHC (31.0-37.0) g/dL RDW (11.5-15.5) % Plt Count (150-450) k/uL MPV Neutrophils % % Lymphocytes % % Monocytes % % Eosinophils % % Basophils % % Neutrophils # (1.3-7.7) k/uL Lymphocytes # (1.0-4.8) k/uL Monocytes # (0-1.0) k/uL Eosinophils # (0-0.7) k/uL Basophils # (0-0.2) k/uL Sodium (137-145) mmol/L Potassium (3.5-5.1) mmol/L Chloride (98-107) mmol/L Carbon Dioxide (22-30) mmol/L Anion Gap mmol/L BUN (7-17) mg/dL Creatinine (0.52-1.04) mg/dL Est GFR (CKD-EPI)AfAm (>60 ml/min/1.73 sqM) Est GFR (CKD-EPI)NonAf (>60 ml/min/1.73 sqM) Glucose (74-99) mg/dL Plasma Lactic Acid Nick (0.7-2.0) mmol/L Calcium (8.4-10.2) mg/dL Total Bilirubin (0.2-1.3) mg/dL AST (14-36) U/L ALT (4-34) U/L Alkaline Phosphatase (38-126) U/L Total Protein (6.3-8.2) g/dL Albumin (3.5-5.0) g/dL Amylase (30-110) U/L Lipase (23-300) U/L Urine Color Light Yellow Urine Appearance Clear (Clear) Urine pH 6.0 (5.0-8.0) Ur Specific [place] 1.012 (1.001-1.035) Urine Protein Negative (Negative) Urine Glucose (UA) 3+ H (Negative) Urine Ketones Negative (Negative) Urine Blood Negative (Negative) Urine Nitrite Negative (Negative) Urine Bilirubin Negative (Negative) Urine Urobilinogen <2.0 (<2.0) mg/dL Ur Leukocyte Esterase Negative (Negative) Disposition Clinical Impression: Abdominal pain Disposition: HOME SELF-CARE Condition: Stable Instructions (If sedation given, give patient instructions): Abdominal Pain (ED) Additional Instructions: Please return to the Emergency Department if symptoms worsen or any other concerns. Is patient prescribed a controlled substance at d/c from ED?: No Referrals: [facility] [Primary Care Provider] - 1-2 days Tommy Ramírez MD [STAFF PHYSICIAN] - 1-2 days Time of Disposition: 10:15
[2022-01-19 08:03] LABS: Basophils # (A) 0.1 k/uL (0-0.2); Basophils % (A) 1 %; Eosinophils # (A) 0.3 k/uL (0-0.7); Eosinophils % (A) 3 %; HCT 39.9 % (34.0-46.0); HGB 12.9 gm/dL (11.4-16.0); Lymphocytes # (A) 3.1 k/uL (1.0-4.8); Lymphocytes % (A) 33 %; MCH 29.1 pg (25.0-35.0); MCHC 32.3 g/dL (31.0-37.0); MCV 90.2 fL (80.0-100.0); Mean Platelet Volume 7.7; Monocytes # (A) 0.4 k/uL (0-1.0); Monocytes % (A) 4 %; Neutrophils # (A) 5.4 k/uL (1.3-7.7); Neutrophils % (A) 58 %; Platelet Count 250 k/uL (150-450); RBC 4.43 m/uL (3.80-5.40); RDW 13.9 % (11.5-15.5); WBC 9.3 k/uL (3.8-10.6)
[2022-01-19 08:17] LABS: ALT 18 U/L (4-34); AST 18 U/L (14-36); African American GFR (CKD) >90 (>60 ml/min/1.73 sqM); Albumin 3.9 g/dL (3.5-5.0); Alkaline Phosphatase 123 U/L (38-126); Amylase 67 U/L (30-110); Anion Gap 7 mmol/L; Blood Urea Nitrogen 13 mg/dL (7-17); Calcium 9.2 mg/dL (8.4-10.2); Carbon Dioxide 26 mmol/L (22-30); Chloride 104 mmol/L (98-107); Glucose 248 mg/dL (74-99); Lipase 214 U/L (23-300); Non-African American GFR(CKD) >90 (>60 ml/min/1.73 sqM); Potassium 4.3 mmol/L (3.5-5.1); Sodium 137 mmol/L (137-145); Total Bilirubin 0.5 mg/dL (0.2-1.3); Total Protein 7.3 g/dL (6.3-8.2)
[2022-01-19 08:20] LABS: Appearance,Urine Clear (Clear); Bilirubin,Urine Negative (Negative); Blood,Urine Negative (Negative); Color,Urine Light Yellow; Glucose,Urine (UA) 3+ (Negative); Ketones,Urine Negative (Negative); Leukocyte Esterase,Urine Negative (Negative); Nitrite,Urine Negative (Negative); Protein,Urine Negative (Negative); Specific Gravity,Urine 1.012 (1.001-1.035); Urobilinogen,Urine <2.0 mg/dL (<2.0)
--- NOTE | 2022-01-19 09:54 | CT ---
EXAMINATION TYPE: CT abdomen pelvis w con DATE OF EXAM: 01/19/2022 COMPARISON: No previous CT scan is available for comparison HISTORY: Abdominal pain CT DLP: 1625.2 mGycm Automated exposure control for dose reduction was used. TECHNIQUE: Helical acquisition of images was performed from the lung bases through the pelvis. CONTRAST: Performed without Oral Contrast and with IV Contrast, patient injected with 100 ml mL of Isovue 300. FINDINGS: LUNG BASES: Lateral basal linear pulmonary atelectasis. LIVER/GB: No definite hepatic focal lesion. The gallbladder is not completely distended. PANCREAS: Subtle hypodensity seen in the uncinate process of the pancreas, possibly representing foca l fat infiltration. Otherwise unremarkable pancreas. SPLEEN: No significant abnormality is seen. ADRENALS: No significant abnormality is seen. KIDNEYS: No significant abnormality is seen. FREE AIR: No free air is visualized. RETROPERITONEAL ADENOPATHY: No pathologically enlarged REPRODUCTIVE ORGANS: The uterus is deviated to the right side. Small uterine lesion cannot be exclude d by this CT scan. No gross adnexal mass. URINARY BLADDER: No significant abnormality is seen. PELVIC ADENOPATHY: No pathologically enlarged lymph nodes. OSSEOUS STRUCTURES: Degenerative changes of the lower thoracic spine. Bilateral L4-5 and L5-S1 facet osteoarthropathy. Degenerative changes of the symphysis pubis and sacroiliac joints. No aggressive b one lesion. BOWEL: Unremarkable nondistended stomach, duodenum and small bowel. No gross colonic abnormality. No rmal appendix. OTHER: Extensive arterial atherosclerotic calcifications. No sizable ascites. IMPRESSION: No definite acute abnormality seen in the abdomen or the pelvis. Incidental findings as described abo ve.
[2022-01-19] MEDS ORDERED: HYDROmorphone 0.5 MG/0.5 ML SYRINGE IVP STA (10:03)
[2022-01-19 11:12] VITALS: BP 168/76; PULSE 63; TEMP 98.1
== END 2022-01-19 11:12 | disposition home or self-care (01) ==
LOC: EC 06:55
DX: E11.65 Type 2 diabetes mellitus with hyperglycemia (principal); I10 Essential (primary) hypertension; J45.909 Unspecified asthma, uncomplicated; E78.5 Hyperlipidemia, unspecified; F32.A Depression, unspecified; F41.9 Anxiety disorder, unspecified; F12.90 Cannabis use, unspecified, uncomplicated; Z79.84 Long term (current) use of oral hypoglycemic drugs; Z79.51 Long term (current) use of inhaled steroids; Z79.82 Long term (current) use of aspirin
CPT/HCPCS: 36415; 80053; 82150; 83605; 83690; 85025; 81003; 74177; 99284; 96374; 96375 ×2; J2405; J1885; J1170; Q9967

== ENCOUNTER 2022-01-25 01:00 | Emergency (ER) | payer OTHER ==
[2022-01-25 01:18] VITALS: TEMP 97.6
[2022-01-25] MEDS ORDERED: SODIUM CHLORIDE 0.9% 1,000 ML IV STA (01:22)
[2022-01-25] MEDS ORDERED: ONDANSETRON 4 MG/2 ML VIAL IVP STA (01:22)
--- NOTE | 2022-01-25 01:24 | ED ---
Abdominal Pain HPI - General Source: patient, RN notes reviewed Mode of arrival: EMS Limitations: no limitations <Davidson Blunt - Last Filed: 01/25/22 02:49> <Sarabjit Allen - Last Filed: 01/25/22 03:13> - General Stated Complaint: Abd Pain Time Seen by Provider: 01/25/22 01:15 - History of Present Illness Initial Comments: This is a pleasant 51-year-old diabetic female who presents to the emergency department complaining of abdominal discomfort. Patient states that she started getting nauseated and a bit queasy prior to going to work. She then vomited. Patient states she got to work and then had some abdominal cramping another episode of vomiting. Patient presents here for evaluation. Patient was seen here on January 19 for similar symptomology. At that time the patient had a computed tomography scan done which ended up showing constipation. Patient states that she has taken a few docusate sodium capsules. No headache, no fever or chills, no changes in vision or hearing, no sore throat or difficulty with speech, no neck pain, no chest pain or shortness of breath, , no changes in urination or bowel movements, no numbness or tingling, no extremity pain, no skin rashes or lesions. Patient describes the pain as being cramping in nature. No alleviating or exacerbating factors. (Davidson Blunt) - Related Data Home Medications Medication Instructions Recorded Confirmed Albuterol Sulfate [Ventolin HFA] 2 puff INHALATION RT-Q6H PRN 05/05/20 01/19/22 Aspirin EC [Ecotrin Low Dose] 81 mg PO DAILY 05/05/20 01/19/22 Atorvastatin [Lipitor] 80 mg PO HS 05/05/20 01/19/22 Furosemide [Lasix] 40 mg PO DAILY PRN 05/05/20 01/19/22 Ipratropium-Albuterol Nebulize 3 ml INHALATION RT-TID PRN 05/05/20 01/19/22 [Duoneb 0.5 mg-3 mg/3 ml Soln] Loratadine [Claritin] 10 mg PO DAILY PRN 05/05/20 01/19/22 Nitroglycerin Sl Tabs [Nitrostat] 0.4 mg SUBLINGUAL Q5M PRN 05/05/20 01/19/22 Prasugrel [Effient] 10 mg PO DAILY 05/05/20 01/19/22 Cholecalciferol [Vitamin D3 (125 125 mcg PO DAILY 01/17/22 01/19/22 Mcg = 5000 Iu)] Losartan Potassium [Cozaar] 100 mg PO DAILY 01/17/22 01/19/22 Metoprolol Succinate [Toprol XL] 200 mg PO DAILY 01/17/22 01/19/22 Potassium Chloride [Potassium 10 meq PO DAILY PRN 01/17/22 01/19/22 Chloride ER] Docusate [Colace] 100 mg PO BID 01/19/22 01/19/22 Dulaglutide [Trulicity] 1.5 mg SQ WE 01/19/22 01/19/22 Isosorbide Mononitrate ER [Imdur] 15 mg PO DAILY 01/19/22 01/19/22 Montelukast [Singulair] 10 mg PO DAILY PRN 01/19/22 01/19/22 metFORMIN HCL [Glucophage] 1,000 mg PO BID 01/19/22 01/19/22 Allergies Allergy/AdvReac Type Severity Reaction Status Date / Time peanut Allergy HIVES Verified 01/25/22 01:18 rice Allergy Rash/Hives Verified 01/25/22 01:18 seasonal Allergy Rash/Hives Uncoded 01/25/22 01:18 Review of Systems ROS Other: All systems not noted in ROS Statement are negative. <Davidson Blunt - Last Filed: 01/25/22 02:49> ROS Other: All systems not noted in ROS Statement are negative. <Sarabjit Allen - Last Filed: 01/25/22 03:13> ROS Statement: Those systems with pertinent positive or pertinent negative responses have been documented in the HPI. Past Medical History Past Medical History: Asthma, Diabetes Mellitus, Hyperlipidemia, Hypertension, Musculoskeletal Disorder, Thyroid Disorder Additional Past Medical History / Comment(s): Back Pain, right shoulder pain, Hx Pituitary Tumor, BENIGN. Thyroid disorder. History of Any Multi-Drug Resistant Organisms: None Reported Past Surgical History: Section, Heart Catheterization With Stent, Tubal Ligation Additional Past Surgical History / Comment(s): Pituitary Tumor Removed. Past Anesthesia/Blood Transfusion Reactions: No Reported Reaction Date of Last Stent Placement:: april 28 2020 Past Psychological History: Anxiety, Depression Smoking Status: Former smoker Past Alcohol Use History: None Reported Past Drug Use History: Marijuana - Past Family History Mother Family Medical History: Deep Vein Thrombosis (DVT) Additional Family Medical History / Comment(s): Mother is alive at age 67 with history of coronary artery disease and three-vessel CABG. Daughter(s) Family Medical History: Deep Vein Thrombosis (DVT) Additional Family Medical History / Comment(s): Patient has a total of 9 children with no major medical problems. Father Family Medical History: Cancer Additional Family Medical History / Comment(s): Father is alive with no history of coronary artery disease. History of Prostate Cancer Sister(s) Additional Family Medical History / Comment(s): The patient has 4 sisters and 1 brother. One sister had a myocardial infraction at age 40. <Jose RaulDavidson - Tra Filed: 01/25/22 02:49> General Exam Limitations: no limitations General appearance: alert, in distress, obese Head exam: Present: atraumatic, normocephalic, normal inspection Eye exam: Present: normal appearance, PERRL, EOMI. Absent: scleral icterus, conjunctival injection, periorbital swelling Pupils: Absent: unequal ENT exam: Present: normal exam, mucous membranes moist, TM's normal bilaterally, normal external ear exam Neck exam: Present: normal inspection, full ROM. Absent: tenderness, meningismus, lymphadenopathy Respiratory exam: Present: normal lung sounds bilaterally. Absent: respiratory distress, wheezes, rales, rhonchi, stridor Cardiovascular Exam: Present: regular rate, normal rhythm, normal heart sounds. Absent: systolic murmur, diastolic murmur, rubs, gallop, clicks GI/Abdominal exam: Present: soft, normal bowel sounds. Absent: distended, tenderness, guarding, rebound, rigid Extremities exam: Present: normal inspection, full ROM, normal capillary refill. Absent: tenderness, pedal edema, joint swelling, calf tenderness Back exam: Present: normal inspection Neurological exam: Present: alert, oriented X3, CN II-XII intact Psychiatric exam: Present: normal affect, normal mood Skin exam: Present: warm, dry, intact, normal color. Absent: rash <Jose RaulDavidson Kierra Filed: 01/25/22 02:49> General appearance: alert, in no apparent distress Head exam: Present: atraumatic, normocephalic, normal inspection Eye exam: Present: normal appearance, PERRL, EOMI. Absent: scleral icterus, conjunctival injection, periorbital swelling ENT exam: Present: normal exam, mucous membranes moist Neck exam: Present: normal inspection. Absent: tenderness, meningismus, lym phadenopathy Respiratory exam: Present: normal lung sounds bilaterally. Absent: respiratory distress, wheezes, rales, rhonchi, stridor Cardiovascular Exam: Present: regular rate, normal rhythm, normal heart sounds. Absent: systolic murmur, diastolic murmur, rubs, gallop, clicks GI/Abdominal exam: Present: soft, normal bowel sounds. Absent: distended, tenderness, guarding, rebound, rigid Extremities exam: Present: normal inspection, full ROM, normal capillary refill. Absent: tenderness, pedal edema, joint swelling, calf tenderness Back exam: Present: normal inspection Neurological exam: Present: alert, oriented X3, CN II-XII intact Psychiatric exam: Present: normal affect, normal mood Skin exam: Present: warm, dry, intact, normal color. Absent: rash <Sarabjit Allen - Last Filed: 01/25/22 03:13> Course <Sarabjit Allen - Last Filed: 01/25/22 03:13> Vital Signs 01/25/22 01:09 Temperature 97.6 F Pulse Rate 65 Respiratory 16 Rate Blood Pressure 196/93 O2 Sat by Pulse 95 Oximetry - Reevaluation(s) Reevaluation #1: 01/25/22 03:13 Medical record is reviewed (Sarabjit Allen) Reevaluation #2: 01/25/22 03:13 Patient symptoms are improved here in the ER (Sarabjit Allen) Reevaluation #3: 01/25/22 03:13 Patient informed of results and questions answered (Sarabjit Allen) Medical Decision Making - Lab Data Result diagrams: 01/25/22 01:53 <Davidson Blunt - Last Filed: 01/25/22 02:49> - Lab Data Result diagrams: 01/25/22 01:53 01/25/22 01:53 - Radiology Data Radiology results: report reviewed (X-ray KUB is negative for acute disease), image reviewed <Sarabjit Allen - Last Filed: 01/25/22 03:13> - Medical Decision Making Patient will be endorsed to the ED attending physician at 3 AM for further evaluation and disposition. Laboratory work is pending. The case was discussed in detail with ED attending physician. Presentation, findings, treatment plan discussed in detail. (Davidson Blunt) 51 female to the emergency department for evaluation abdominal pain. Testing is negative here in the ER, symptoms are improved and patient can be discharged home (Sarabjit Allen) - Lab Data Lab Results 01/25/22 01/25/22 01/25/22 Range/Units 01:53 01:53 01:53 WBC 9.9 (3.8-10.6) k/uL RBC 4.71 (3.80-5.40) m/uL Hgb 14.0 (11.4-16.0) gm/dL Hct 42.8 (34.0-46.0) % MCV 90.9 (80.0-100.0) fL MCH 29.8 (25.0-35.0) pg MCHC 32.7 (31.0-37.0) g/dL RDW 14.3 (11.5-15.5) % Plt Count 247 (150-450) k/uL MPV 7.6 Neutrophils % 66 % Lymphocytes % 26 % Monocytes % 3 % Eosinophils % 3 % Basophils % 0 % Neutrophils # 6.5 (1.3-7.7) k/uL Lymphocytes # 2.6 (1.0-4.8) k/uL Monocytes # 0.3 (0-1.0) k/uL Eosinophils # 0.3 (0-0.7) k/uL Basophils # 0.0 (0-0.2) k/uL Sodium 136 L (137-145) mmol/L Potassium 4.2 (3.5-5.1) mmol/L Chloride 102 (98-107) mmol/L Carbon Dioxide 27 (22-30) mmol/L Anion Gap 7 mmol/L BUN 12 (7-17) mg/dL Creatinine 0.74 (0.52-1.04) mg/dL Est GFR (CKD-EPI)AfAm >90 (>60 ml/min/1.73 sqM) Est GFR (CKD-EPI)NonAf >90 (>60 ml/min/1.73 sqM) Glucose 183 H (74-99) mg/dL Calcium 9.2 (8.4-10.2) mg/dL Total Bilirubin 0.5 (0.2-1.3) mg/dL AST 18 (14-36) U/L ALT 16 (4-34) U/L Alkaline Phosphatase 122 (38-126) U/L Troponin I (0.000-0.034) ng/mL Total Protein 6.9 (6.3-8.2) g/dL Albumin 3.7 (3.5-5.0) g/dL Lipase 165 (23-300) U/L Urine Color Light Yellow Urine Appearance Clear (Clear) Urine pH 7.0 (5.0-8.0) Ur Specific [place] 1.010 (1.001-1.035) Urine Protein Negative (Negative) Urine Glucose (UA) Negative (Negative) Urine Ketones Negative (Negative) Urine Blood Negative (Negative) Urine Nitrite Negative (Negative) Urine Bilirubin Negative (Negative) Urine Urobilinogen <2.0 (<2.0) mg/dL Ur Leukocyte Esterase Negative (Negative) Urine HCG, Qual (Not Detectd) 01/25/22 01/25/22 Range/Units 01:53 01:53 WBC (3.8-10.6) k/uL RBC (3.80-5.40) m/uL Hgb (11.4-16.0) gm/dL Hct (34.0-46.0) % MCV (80.0-100.0) fL MCH (25.0-35.0) pg MCHC (31.0-37.0) g/dL RDW (11.5-15.5) % Plt Count (150-450) k/uL MPV Neutrophils % % Lymphocytes % % Monocytes % % Eosinophils % % Basophils % % Neutrophils # (1.3-7.7) k/uL Lymphocytes # (1.0-4.8) k/uL Monocytes # (0-1.0) k/uL Eosinophils # (0-0.7) k/uL Basophils # (0-0.2) k/uL Sodium (137-145) mmol/L Potassium (3.5-5.1) mmol/L Chloride (98-107) mmol/L Carbon Dioxide (22-30) mmol/L Anion Gap mmol/L BUN (7-17) mg/dL Creatinine (0.52-1.04) mg/dL Est GFR (CKD-EPI)AfAm (>60 ml/min/1.73 sqM) Est GFR (CKD-EPI)NonAf (>60 ml/min/1.73 sqM) Glucose (74-99) mg/dL Calcium (8.4-10.2) mg/dL Total Bilirubin (0.2-1.3) mg/dL AST (14-36) U/L ALT (4-34) U/L Alkaline Phosphatase (38-126) U/L Troponin I <0.012 (0.000-0.034) ng/mL Total Protein (6.3-8.2) g/dL Albumin (3.5-5.0) g/dL Lipase (23-300) U/L Urine Color Urine Appearance (Clear) Urine pH (5.0-8.0) Ur Specific [place] (1.001-1.035) Urine Protein (Negative) Urine Glucose (UA) (Negative) Urine Ketones (Negative) Urine Blood (Negative) Urine Nitrite (Negative) Urine Bilirubin (Negative) Urine Urobilinogen (<2.0) mg/dL Ur Leukocyte Esterase (Negative) Urine HCG, Qual Not Detected (Not Detectd) Disposition <Davidson Blunt - Last Filed: 01/25/22 02:49> Is patient prescribed a controlled substance at d/c from ED?: No <Sarabjit Allen - Last Filed: 01/25/22 03:13> Clinical Impression: Abdominal pain Disposition: HOME SELF-CARE Condition: Good Instructions (If sedation given, give patient instructions): Abdominal Pain (ED) Referrals: [facility] [Primary Care Provider] - 1-2 days
--- NOTE | 2022-01-25 02:10 | XR ---
EXAMINATION TYPE: XR abdomen acute w cxr DATE OF EXAM: 01/25/2022 COMPARISON: Chest x-ray 05/05/2020 HISTORY: Abdominal pain TECHNIQUE: 4 views FINDINGS: There is no heart failure nor confluent pneumonic infiltrate. There is some mild subsegment al atelectasis right lung base. Heart size is normal. There is no pleural effusion. There is no central intestinal obstruction or pneumoperitoneum. Fecal pattern is normal. There is no evidence of a mass. There are no pathologic calcifications over the kidneys. Sacroiliac joints are in tact. IMPRESSION: There is some mild subsegmental atelectasis at the right lung base which is new compared to old exam. Nonacute abdomen.
[2022-01-25 02:49] LABS: Basophils % (A) 0 %; Eosinophils # (A) 0.3 k/uL (0-0.7); Eosinophils % (A) 3 %; HCT 42.8 % (34.0-46.0); Lymphocytes # (A) 2.6 k/uL (1.0-4.8); Lymphocytes % (A) 26 %; MCH 29.8 pg (25.0-35.0); MCHC 32.7 g/dL (31.0-37.0); MCV 90.9 fL (80.0-100.0); Mean Platelet Volume 7.6; Monocytes # (A) 0.3 k/uL (0-1.0); Monocytes % (A) 3 %; Neutrophils # (A) 6.5 k/uL (1.3-7.7); Neutrophils % (A) 66 %; Platelet Count 247 k/uL (150-450); RBC 4.71 m/uL (3.80-5.40); RDW 14.3 % (11.5-15.5); WBC 9.9 k/uL (3.8-10.6)
[2022-01-25 02:54] LABS: Appearance,Urine Clear (Clear); Bilirubin,Urine Negative (Negative); Blood,Urine Negative (Negative); Color,Urine Light Yellow; Glucose,Urine (UA) Negative (Negative); Ketones,Urine Negative (Negative); Leukocyte Esterase,Urine Negative (Negative); Nitrite,Urine Negative (Negative); Protein,Urine Negative (Negative); Urobilinogen,Urine <2.0 mg/dL (<2.0)
[2022-01-25 02:59] LABS: ALT 16 U/L (4-34); AST 18 U/L (14-36); African American GFR (CKD) >90 (>60 ml/min/1.73 sqM); Albumin 3.7 g/dL (3.5-5.0); Alkaline Phosphatase 122 U/L (38-126); Anion Gap 7 mmol/L; Blood Urea Nitrogen 12 mg/dL (7-17); Calcium 9.2 mg/dL (8.4-10.2); Carbon Dioxide 27 mmol/L (22-30); Chloride 102 mmol/L (98-107); Glucose 183 mg/dL (74-99); Lipase 165 U/L (23-300); Non-African American GFR(CKD) >90 (>60 ml/min/1.73 sqM); Potassium 4.2 mmol/L (3.5-5.1); Sodium 136 mmol/L (137-145); Total Bilirubin 0.5 mg/dL (0.2-1.3); Total Protein 6.9 g/dL (6.3-8.2)
[2022-01-25] MEDS ORDERED: LABETALOL 5 MG/ML VIAL MDV IVP STA (03:20)
[2022-01-25 04:35] VITALS: BP 209/86; PULSE 60; RESP 14
== END 2022-01-25 04:52 | disposition home or self-care (01) ==
LOC: EC 01:00
DX: R10.9 Unspecified abdominal pain (principal); J98.11 Atelectasis; J45.909 Unspecified asthma, uncomplicated; E11.9 Type 2 diabetes mellitus without complications; E78.5 Hyperlipidemia, unspecified; I10 Essential (primary) hypertension; E07.9 Disorder of thyroid, unspecified; F41.9 Anxiety disorder, unspecified; F32.A Depression, unspecified; F12.90 Cannabis use, unspecified, uncomplicated; Z79.82 Long term (current) use of aspirin; Z79.84 Long term (current) use of oral hypoglycemic drugs; Z98.51 Tubal ligation status; Z87.891 Personal history of nicotine dependence
CPT/HCPCS: 99284; 96374; 96375; 96361; 36415; 93005; 80053; 83690; 84484; 85025; 81003; 81025; 74022; J2405

== ENCOUNTER → 2022-02-02 | Outpatient (CLI) | payer OTHER ==
[2022-02-02 11:26] VITALS: BP 159/108; PULSE 71; RESP 18; TEMP 98
--- NOTE | 2022-02-02 11:42 | P.CON ---
Consult Note - . Consult date: 02/02/22 Assessment/Plan:: HISTORY OF PRESENT ILLNESS: 51 yr old female with at side as a referral from Dr Javier presents today with cervical pain secondary to disc herniations, spinal stenosis for evaluation. States she has 10 out of 10 intensity pain in the right aspect of her cervical spine, constant, dull, achy in character with radiation of sharp pain to the right shoulder. Pain is provoked with inactivity and is accompanied with muscle spasms. Pain is relieved with OTC medications minimally, ice and heat which were ineffective, physical therapy which she will start this month, use of a soft c-collar at bedtime, repositioning, massage and rest. PMH: HTN, DM II, Iron deficiency anemia, Vitamin D deficiency PSH: Cervical ABRAHAM SH: +cannabia, No tobacco use disorder, No ETOH abuse. FH: HTN All: See list Meds: See list REVIEW OF ORGAN SYSTEMS: CONSTITUTIONAL: No fevers or chills. No recent weight loss. HEENT: No visual acuity loss, eye pain, difficulties with hearing. No nosebleeds. No difficulty swallowing. RESPIRATORY: Denies any troubles with breathing or dyspnea on exertion. CARDIOVASCULAR: Denies any chest pain, palpitations, or recent heart attacks. GASTROINTESTINAL: Denies fatty food intolerance. Has change in bowel habits and gas bloat. GENITOURINARY: Denies any blood in urine. Has increased urinary frequency. NEUROLOGICAL: + numbness and tingling along the distal extremities. No seizure disorders or headaches. MUSCULOSKELETAL: + back pain SKIN: No skin cancer. No rash. PSYCHIATRIC: Denies current depression or suicidal thoughts. ENDOCRINE: Denies current thyroid disorders. Denies any blood sugar glucose intolerance. HEME/LYMPHATIC: Denies any lumps and bumps around the neck. History of deep venous thrombosis. ALLERGY/IMMUNOLOGY: No immunoglobulin therapy. No immune deficiencies. BREAST: Denies current breast lumps, pain or nipple discharge. Physical Examinations : Constitutional : Cooperative , not in acute distress . HEENT: Neck supple. No Lymphadenopathy. Normal thyroid size . Eyes no ptosis , no icterus, no photophobia . Hearing intact. Normal oropharynx. No Thrush. Respiratory : Chest clear to auscultations bilaterally. No wheezing. No rhonchi. Cardiovascular : Regular rate and rhythm , S1 / S2. No S3 . No S4. Gastrointestinal : Abdomen soft. No tenderness. Bowel sounds x 4. No organomegaly . Genitourinary : Deferred. Neurologic : Cranial nerve II to XII intact. No focal neurological deficits. Psychiatric : alert & oriented x 3. Matching mood & appropriate affect. Judgment & insight intact. Lymphatic No Lymphadenopathy. Musculoskeletal : Cervical Spine Motor strength in the deltoid and biceps: Normal right side. Normal Left side Motor strength biceps and the wrist extensors: Normal right side . Normal left side Motor strength in the triceps muscle: Normal right side. Normal left side Deep tendon reflexes: Normal at the biceps. Normal at Brachioradialis. Normal at triceps Vertebral body tenderness to palpation over C5, C6 Cervical facet loading test: On the right Spurling test: On the right Neck distraction test: On the right Marty sign: positive bilaterally Lumbar spine Motor strength lower extremities ,thigh and legs 5/5 Right side , 5/5 Left side Deep tendon reflexes : Normal Knee Jerk. Normal Ankle Jerk Vertebral body tenderness over Lumbar facet Loading Test: positive Right / positive Left Range of motion of the lumbar spine Flexion 30 degrees, extension 10 degrees Straight Leg Raise test: Left/ Right positive at degree Mauro test: positive right / positive left. Severe tenderness over the Sacroiliac joint on the Right / Left sides Gaenslen test: positive bilaterally Seated flexion test: positive bila terally. Imaging: MRI of the cervical spine without contrast from 12/15/21 reviewed MRI of the cervical spine from 11/26/15 reviewed Assessment/ Plan : Recommendation of R TFESI C5-C6. May need a series of injections, up to 3 within a 6 mo period, for optimal pain relief. Risks, benefits of procedure discussed and patient verbalized understanding. Denies aspirin or anti- coagulant use. Admits to medical history of diabetes. Protocol for discontinuation/ continuation of medications genoveva procedure discussed. All questions answered. I have spent greater than 50 minutes on patient care today. Dr Mulligan was available by phone for the evaluation of this patient. The time was used to review the medical records including relevant urine studies and Prescription history (MAPs), review of the available imaging, evaluation and examination of the patient, coordination of care with the medical staff and if applicable referring physicians, as well as creation of the medical record PQRS Measure Charge Sheet Mode of Arrival: Ambulatory - Pain Location Right Shoulder Non-Pharmacological Interventions: Heat, Ice, Inactivity, Physical Therapy, Stretching PQRS Narrative: Smoking Status Never smoker Blood Pressure 159/108 Pain Intensity [Right Shoulder 10 ] Scale Used Numeric (1 - 10) Hx Alcohol Use (MH) No Home Medications: Ambulatory Orders Albuterol Sulfate [Ventolin HFA] 2 puff INHALATION RT-Q6H PRN 05/05/20 Aspirin EC [Ecotrin Low Dose] 81 mg PO DAILY 05/05/20 Atorvastatin [Lipitor] 80 mg PO HS 05/05/20 Furosemide [Lasix] 40 mg PO DAILY PRN 05/05/20 Ipratropium-Albuterol Nebulize [Duoneb 0.5 mg-3 mg/3 ml Soln] 3 ml INHALATION RT-TID PRN 05/05/20 Loratadine [Claritin] 10 mg PO DAILY PRN 05/05/20 Nitroglycerin Sl Tabs [Nitrostat] 0.4 mg SUBLINGUAL Q5M PRN 05/05/20 Prasugrel [Effient] 10 mg PO DAILY 05/05/20 Cholecalciferol [Vitamin D3 (125 Mcg = 5000 Iu)] 125 mcg PO DAILY 01/17/22 Losartan Potassium [Cozaar] 100 mg PO DAILY 01/17/22 Metoprolol Succinate [Toprol XL] 200 mg PO DAILY 01/17/22 Potassium Chloride [Potassium Chloride ER] 10 meq PO DAILY PRN 01/17/22 Docusate [Colace] 100 mg PO BID 01/19/22 Dulaglutide [Trulicity] 1.5 mg SQ WE 01/19/22 Isosorbide Mononitrate ER [Imdur] 15 mg PO DAILY 01/19/22 Montelukast [Singulair] 10 mg PO DAILY PRN 01/19/22 metFORMIN HCL [Glucophage] 1,000 mg PO BID 01/19/22
== END ==
LOC: PNWHC3 10:20
PROVIDERS: ATTEND Specialist
DX: M48.02 Spinal stenosis, cervical region (principal); M50.20 Other cervical disc displacement, unspecified cervical region; I10 Essential (primary) hypertension; E11.9 Type 2 diabetes mellitus without complications; Z79.84 Long term (current) use of oral hypoglycemic drugs; Z91.010 Allergy to peanuts; Z91.018 Allergy to other foods
CPT/HCPCS: 99202

== ENCOUNTER → 2022-02-18 | Outpatient (CLI) | payer OTHER ==
--- NOTE | 2022-02-18 15:24 | MR ---
MRI brain without contrast. HISTORY: Headache COMPARISON: 05/07/2015. TECHNIQUE: Multiecho multiplanar images the brain were obtained findings: On the T1-weighted sagittal images there is an empty sella consistent with the history of pituitary r esection. The craniovertebral junction relationships appear normal. The ventricles, basal cisterns and sulci over convexities are within normal limits and there is no ma ss effect or shift of midline structures. There is a tiny remote lacunar infarct in right caudate nuc leus. Posterior fossa including the brainstem, fourth ventricle and cerebellar pontine angles appear normal . The intraorbital contents appear normal and symmetric. There are moderate chronic inflammatory changes maxillary and ethmoid air cells. There is mild fluid in the left mastoid air cells. IMPRESSION: 1. No acute ischemic event. 2 small remote lacunar infarct in the right caudate nucleus. 3. Postsurgical changes of the sella turcica. 4. Moderate chronic inflammatory changes of the maxillary and ethmoid sinuses and mild fluid in the l eft mastoid air cells.
== END | disposition home or self-care (01) ==
LOC: RADMRIMAIN 13:47
PROVIDERS: ATTEND Psychiatry & Neurology Neurology
DX: J32.2 Chronic ethmoidal sinusitis (principal); J32.0 Chronic maxillary sinusitis; I63.81 Other cerebral infarction due to occlusion or stenosis of small artery; H74.8X2 Other specified disorders of left middle ear and mastoid
CPT/HCPCS: 70551

== ENCOUNTER 2022-03-27 21:37 | Inpatient (IN) | payer OTHER ==
[2022-03-27] MEDS ORDERED: LABETALOL SYRINGE 5 MG/ML IVP STA (21:54)
[2022-03-27] MEDS ORDERED: MORPHINE SULFATE 4 MG/ML SYRINGE IVP STA (21:54)
--- NOTE | 2022-03-27 21:57 | ED ---
Chest Pain HPI - General Chief Complaint: Chest Pain Stated Complaint: Chest Pain Time Seen by Provider: 03/27/22 21:38 Source: patient, EMS, RN notes reviewed, old records reviewed Mode of arrival: EMS Limitations: no limitations - History of Present Illness Initial Comments: This is a 51-year-old female here for evaluation patient does suffer from cor onary artery disease hypertension stent about 2 years ago. Patient coming in withchest pain that began tonight. Patient does admit to stopping her blood pressure this week and she is scheduled for cortisone injection that she believes that her physician doing the injections told her to stop blood pressure medication as well as her blood thinning medication. Patient's chest pain began tonight, no shortness of breath or diaphoresis. No leg swelling edema. She's been feeling fine otherwise until today with no fatigue or weakness MD Complaint: chest pain -: hour(s) Onset: during rest, during exertion Pain Location: left chest Pain Radiation: none Severity: moderate Severity scale (1-10): 4 Quality: tightness, heaviness Consistency: constant Improves With: nothing Worsens With: nothing Anginal Symptoms: sense of impending doom Other Symptoms: palpitations Treatments Prior to Arrival: none - Related Data Home Medications Medication Instructions Recorded Confirmed Albuterol Sulfate [Ventolin HFA] 2 puff INHALATION RT-Q6H PRN 05/05/20 03/27/22 Aspirin EC [Ecotrin Low Dose] 81 mg PO DAILY 05/05/20 03/27/22 Atorvastatin [Lipitor] 80 mg PO HS 05/05/20 03/27/22 Furosemide [Lasix] 40 mg PO DAILY PRN 05/05/20 03/27/22 Ipratropium-Albuterol Nebulize 3 ml INHALATION RT-TID PRN 05/05/20 03/27/22 [Duoneb 0.5 mg-3 mg/3 ml Soln] Nitroglycerin Sl Tabs [Nitrostat] 0.4 mg SUBLINGUAL Q5M PRN 05/05/20 03/27/22 Prasugrel [Effient] 10 mg PO DAILY 05/05/20 03/27/22 Cholecalciferol [Vitamin D3 (125 125 mcg PO DAILY 01/17/22 03/27/22 Mcg = 5000 Iu)] Losartan Potassium [Cozaar] 100 mg PO DAILY 01/17/22 03/27/22 Metoprolol Succinate [Toprol XL] 200 mg PO DAILY 01/17/22 03/27/22 Potassium Chloride [Potassium 20 meq PO DAILY PRN 01/17/22 03/27/22 Chloride ER] Docusate [Colace] 100 mg PO BID 01/19/22 03/27/22 Dulaglutide [Trulicity] 1.5 mg SQ WE 01/19/22 03/27/22 Isosorbide Mononitrate ER [Imdur] 30 mg PO DAILY 01/19/22 03/27/22 metFORMIN HCL [Glucophage] 1,000 mg PO BID 01/19/22 03/27/22 Allergies Allergy/AdvReac Type Severity Reaction Status Date / Time peanut Allergy HIVES Verified 03/27/22 23:11 rice Allergy Rash/Hives Verified 03/27/22 23:11 seasonal Allergy Rash/Hives Uncoded 03/27/22 23:11 Review of Systems ROS Statement: Those systems with pertinent positive or pertinent negative responses have been documented in the HPI. ROS Other: All systems not noted in ROS Statement are negative. EKG Findings - EKG Comments: EKG Findings:: EKG shows sinus rhythm 80 MI 151 QRS 93 QTC 397 Past Medical History Past Medical History: Asthma, Diabetes Mellitus, Hyperlipidemia, Hypertension, Musculoskeletal Disorder, Thyroid Disorder Additional Past Medical History / Comment(s): Back Pain, right shoulder pain, Hx Pituitary Tumor, BENIGN. Thyroid disorder. History of Any Multi-Drug Resistant Organisms: None Reported Past Surgical History: Section, Heart Catheterization With Stent, Tubal Ligation Additional Past Surgical History / Comment(s): Pituitary Tumor Removed. colonoscopy Past Anesthesia/Blood Transfusion Reactions: No Reported Reaction Date of Last Stent Placement:: april 28 2020 Past Psychological History: Anxiety, Depression Smoking Status: Former smoker - Past Family History Mother Family Medical History: Deep Vein Thrombosis (DVT) Additional Family Medical History / Comment(s): Mother is alive at age 67 with history of coronary artery disease and three-vessel CABG. Daughter(s) Family Medical History: Deep Vein Thrombosis (DVT) Additional Family Medical History / Comment(s): Patient has a total of 9 children with no major medical problems. Father Family Medical History: Cancer Additional Family Medical History / Comment(s): Father is alive with no history of coronary artery disease. History of Prostate Cancer Sister(s) Additional Family Medical History / Comment(s): The patient has 4 sisters and 1 brother. One sister had a myocardial infraction at age 40. General Exam Limitations: no limitations General appearance: alert, anxious, in distress, obese Head exam: Present: atraumatic, normocephalic, normal inspection Eye exam: Present: normal appearance, PERRL, EOMI. Absent: scleral icterus, conjunctival injection, periorbital swelling ENT exam: Present: normal exam, mucous membranes moist Neck exam: Present: normal inspection. Absent: tenderness, meningismus, lymphadenopathy Respiratory exam: Present: normal lung sounds bilaterally. Absent: respiratory distress, wheezes, rales, rhonchi, stridor Cardiovascular Exam: Present: regular rate, normal rhythm, normal heart sounds. Absent: systolic murmur, diastolic murmur, rubs, gallop, clicks GI/Abdominal exam: Present: soft, normal bowel sounds. Absent: distended, tenderness, guarding, rebound, rigid Extremities exam: Present: normal inspection, full ROM, normal capillary refill. Absent: tenderness, pedal edema, joint swelling, calf tenderness Back exam: Present: normal inspection Neurological exam: Present: alert, oriented X3, CN II-XII intact Psychiatric exam: Present: normal affect, normal mood Skin exam: Present: warm, dry, intact, normal color. Absent: rash Course Vital Signs 03/27/22 21:41 Temperature 98.6 F Pulse Rate 91 Respiratory 13 Rate Blood Pressure 219/111 O2 Sat by Pulse 95 Oximetry - Reevaluation(s) Reevaluation #1: 03/27/22 23:17 Medical records reviewed Reevaluation #2: 03/27/22 23:17 Patient is informed of results and questions answered Reevaluation #3: 03/27/22 23:17 Multiple EKGs and old EKG showed no change in morphology - Consultations Consultation #1: Spoke with sound who will admit this patient Chest Pain MDM - MDM 51 female to the emergency department for evaluation patient presents today for evaluation of chest pain patient did stop taking blood pressure medications this week which she believes was at request of other physician. Patient is in non- ST elevated VA with no EKG changes troponin 0.2. Patient be admitted for anticoagulation blood pressure control and cardiology to evaluate Critical Care Time Critical Care Time: Yes Total Critical Care Time: 31 Disposition Clinical Impression: Chest pain, Acute non-ST elevation myocardial infarction (NSTEMI), Hypertensive emergency Disposition: ADMITTED IP TO THIS HOSP Condition: Serious Is patient prescribed a controlled substance at d/c from ED?: No Referrals: None,Stated [Primary Care Provider] - 1-2 days
[2022-03-27 22:21] LABS: Basophils # (A) 0.1 k/uL (0-0.2); Basophils % (A) 1 %; Eosinophils # (A) 0.5 k/uL (0-0.7); Eosinophils % (A) 4 %; HGB 13.5 gm/dL (11.4-16.0); Lymphocytes # (A) 2.3 k/uL (1.0-4.8); Lymphocytes % (A) 19 %; MCH 30.5 pg (25.0-35.0); MCHC 33.6 g/dL (31.0-37.0); MCV 90.8 fL (80.0-100.0); Mean Platelet Volume 7.8; Monocytes # (A) 0.4 k/uL (0-1.0); Monocytes % (A) 4 %; Neutrophils # (A) 8.5 k/uL (1.3-7.7); Neutrophils % (A) 71 %; Platelet Count 275 k/uL (150-450); RBC 4.41 m/uL (3.80-5.40); WBC 11.9 k/uL (3.8-10.6)
--- NOTE | 2022-03-27 22:29 | XR ---
EXAMINATION TYPE: XR chest 1V portable DATE OF EXAM: 03/27/2022 COMPARISON: 01/25/2022 HISTORY: Chest pain TECHNIQUE: FINDINGS: Heart is normal. Lungs are clear of infiltrate. No heart failure. There are no hilar masses . There are chest leads. IMPRESSION: Normal chest. There is clearing of the minimal atelectasis right lung base compared to th e old exam
[2022-03-27 22:46] LABS: ALT 19 U/L (4-34); AST 24 U/L (14-36); African American GFR (CKD) >90 (>60 ml/min/1.73 sqM); Albumin 4.2 g/dL (3.5-5.0); Alkaline Phosphatase 113 U/L (38-126); Anion Gap 8 mmol/L; Blood Urea Nitrogen 8 mg/dL (7-17); Calcium 9.4 mg/dL (8.4-10.2); Carbon Dioxide 29 mmol/L (22-30); Chloride 102 mmol/L (98-107); Glucose 200 mg/dL (74-99); Lipase 316 U/L (23-300); Magnesium 1.8 mg/dL (1.6-2.3); Non-African American GFR(CKD) >90 (>60 ml/min/1.73 sqM); Potassium 4.4 mmol/L (3.5-5.1); Sodium 139 mmol/L (137-145); Total Bilirubin 0.4 mg/dL (0.2-1.3); Total Protein 7.3 g/dL (6.3-8.2)
[2022-03-27] MEDS ORDERED: HEPARIN SODIUM 1,000 UN/ML (10ML VL) IV ONE (23:13)
[2022-03-27] MEDS ORDERED: MORPHINE SULFATE 4 MG/ML SYRINGE IV PRN (23:13)
[2022-03-27] MEDS ORDERED: NITROGLYCERIN SL TABS 0.4 MG TAB SUBLINGUAL PRN (23:13)
[2022-03-27] MEDS ORDERED: HEPARIN SOD,PORK IN 0.45% NACL 25,000 UNIT in 0.45% NACL 1 250ML.BAG IV SCH (23:15)
[2022-03-28 02:40] LABS: INR 0.9 (<1.2); Prothrombin Time 10.2 sec (9.0-12.0)
[2022-03-28 02:47] LABS: Partial Thromboplastin Time 20.2 sec (22.0-30.0)
[2022-03-28] MEDS ORDERED: FUROSEMIDE 40 MG TAB PO PRN (03:35)
[2022-03-28] MEDS ORDERED: IPRATROPIUM-ALBUTEROL 3 ML NEB INHALATION PRN (03:37)
--- NOTE | 2022-03-28 03:37 | P.HPIM ---
History of Present Illness H&P Date: 03/28/22 Patient is a 51-year-old female with a PMH of type II DM, hypertension, hyperlipidemia, CAD status post multiple stents, mild intermittent asthma who presents to the emergency room with complaints of chest discomfort. The patient reports that she has been experiencing intermittent substernal pressure-like chest discomfort for the past 1 month. Reports that the pain is exertional and nonexertional, lasting for a few minutes at a time, occurring 4-5 times daily, no longer alleviated with nitroglycerin, and nonpleuritic and is 10 out of 10 at a maximal intensity. Reports associated shortness of breath with nausea but denied diaphoresis or dizziness. Also denied experiencing fever, chills, cough, abdominal pain, diarrhea. Laboratory evaluation was remarkable for troponin of 0.268. EKG reveals sinus rhythm at 88 bpm with no acute ST segment care of his milligrams reviewed by me. Repeat EKGs failed to show any dynamic changes. Review of systems: Pertinent positives and negatives as discussed in HPI, a complete review of systems was performed and all other systems are negative. Physical examination: General: non toxic, no distress, appears at stated age, morbidly obese Derm: no unusual rashes/lesions no unusual ecchymoses, warm, dry Head: atraumatic, normocephalic, symmetric Eyes: EOMI, no lid lag, anicteric sclera, pupils equal round reactive to light ENT: Nose and ears atraumatic, no thrush, no pharyngeal erythema Neck: No thyromegaly, no cervical lymphadenopathy, trachea midline, supple Mouth: no lip lesion, mucus membranes moist Cardiovascular: S1S2 reg, no murmur, positive posterior tibial pulse bilateral, no edema, capillary refill less than 2 seconds Lungs: CTA bilateral, no rhonchi, no rales , no accessory muscle use Abdominal: soft, nontender to palpation, no guarding, no appreciable organomegaly, normal bowel sounds Ext: no gross muscle atrophy, muscle strength 5 out of 5 in all 4 extremities grossly, no contractures, Neuro: CN II-XI grossly intact, light touch intact all 4 extremities, finger to nose within normal limits, Psych: Alert, oriented, appropriate affect Assessment/plan Non-ST elevation GA -Continue with heparin infusion, aspirin, statin -Cardiac monitoring -Cardiology consult -Trend troponin Chronic conditions: Hypertension, hyperlipidemia, type II DM, asthma -Insulin sliding scale -Continue with home meds DVT prophylaxis -Heparin infusion The patient is admitted with an anticipated greater than 2 midnight stay for evaluation of GA. CODE STATUS: Full code Discussed with: Patient Anticipated discharge date: 03/[address]: Home Past Medical History Past Medical History: Asthma, Diabetes Mellitus, Hyperlipidemia, Hypertension, Musculoskeletal Disorder, Thyroid Disorder Additional Past Medical History / Comment(s): Back Pain, right shoulder pain, Hx Pituitary Tumor, BENIGN. Thyroid disorder. History of Any Multi-Drug Resistant Organisms: None Reported Past Surgical History: Section, Heart Catheterization With Stent, Tubal Ligation Additional Past Surgical History / Comment(s): Pituitary Tumor Removed. colonoscopy Past Anesthesia/Blood Transfusion Reactions: No Reported Reaction Date of Last Stent Placement:: april 28 2020 Past Psychological History: Anxiety, Depression Smoking Status: Former smoker - Past Family History Mother Family Medical History: Deep Vein Thrombosis (DVT) Additional Family Medical History / Comment(s): Mother is alive at age 67 with history of coronary artery disease and three-vessel CABG. Daughter(s) Family Medical History: Deep Vein Thrombosis (DVT) Additional Family Medical History / Comment(s): Patient has a total of 9 children with no major medical problems. Father Family Medical History: Cancer Additional Family Medical History / Comment(s): Father is alive with no history of coronary artery disease. History of Prostate Cancer Sister(s) Additional Family Medical History / Comment(s): The patient has 4 sisters and 1 brother. One sister had a myocardial infraction at age 40. Medications and Allergies Home Medications Medication Instructions Recorded Confirmed Type Albuterol Sulfate [Ventolin HFA] 2 puff INHALATION RT-Q6H PRN 05/05/20 03/27/22 History Aspirin EC [Ecotrin Low Dose] 81 mg PO DAILY 05/05/20 03/27/22 History Atorvastatin [Lipitor] 80 mg PO HS 05/05/20 03/27/22 History Furosemide [Lasix] 40 mg PO DAILY PRN 05/05/20 03/27/22 History Ipratropium-Albuterol Nebulize 3 ml INHALATION RT-TID PRN 05/05/20 03/27/22 History [Duoneb 0.5 mg-3 mg/3 ml Soln] Nitroglycerin Sl Tabs [Nitrostat] 0.4 mg SUBLINGUAL Q5M PRN 05/05/20 03/27/22 History Prasugrel [Effient] 10 mg PO DAILY 05/05/20 03/27/22 History Cholecalciferol [Vitamin D3 (125 125 mcg PO DAILY 01/17/22 03/27/22 History Mcg = 5000 Iu)] Losartan Potassium [Cozaar] 100 mg PO DAILY 01/17/22 03/27/22 History Metoprolol Succinate [Toprol XL] 200 mg PO DAILY 01/17/22 03/27/22 History Potassium Chloride [Potassium 20 meq PO DAILY PRN 01/17/22 03/27/22 History Chloride ER] Docusate [Colace] 100 mg PO BID 01/19/22 03/27/22 History Dulaglutide [Trulicity] 1.5 mg SQ WE 01/19/22 03/27/22 History Isosorbide Mononitrate ER [Imdur] 30 mg PO DAILY 01/19/22 03/27/22 History metFORMIN HCL [Glucophage] 1,000 mg PO BID 01/19/22 03/27/22 History Allergies Allergy/AdvReac Type Severity Reaction Status Date / Time peanut Allergy HIVES Verified 03/27/22 23:11 rice Allergy Rash/Hives Verified 03/27/22 23:11 seasonal Allergy Rash/Hives Uncoded 03/27/22 23:11 Physical Exam Vitals: Vital Signs Temp Pulse Resp BP Pulse Ox 03/28/22 02:18 82 18 165/72 94 L 03/27/22 23:53 82 18 161/82 94 L 03/27/22 21:41 98.6 F 91 13 219/111 95 Intake and Output 03/27/22 03/27/22 03/28/22 14:59 22:59 06:59 Other: Weight 91.9 kg Results CBC & Chem 7: 03/27/22 22:00 03/27/22 22:00 Labs: Abnormal Lab Results - Last 24 Hours (Table) 03/27/22 03/27/22 03/27/22 Range/Units 22:00 22:00 22:00 WBC 11.9 H (3.8-10.6) k/uL Neutrophils # 8.5 H (1.3-7.7) k/uL APTT (22.0-30.0) sec Glucose 200 H (74-99) mg/dL Troponin I 0.268 H* (0.000-0.034) ng/mL Lipase 316 H (23-300) U/L 03/28/22 03/28/22 Range/Units 01:16 01:19 WBC (3.8-10.6) k/uL Neutrophils # (1.3-7.7) k/uL APTT 20.2 L (22.0-30.0) sec Glucose (74-99) mg/dL Troponin I 0.268 H* (0.000-0.034) ng/mL Lipase (23-300) U/L
[2022-03-28] MEDS ORDERED: LOSARTAN 50 MG TAB PO STA (03:50)
[2022-03-28] MEDS ORDERED: amLODIPine 10 MG TAB PO STA (03:51)
[2022-03-28] MEDS: NITROGLYCERIN OINT 1 INCH/GM PACKET TOPICAL SCH ×2 (04:10→08:28)
[2022-03-28 06:04] LABS: Glucose,Whole Blood 161 mg/dL (75-99)
[2022-03-28] MEDS: INSULIN ASPART (NovoLOG) 100 UNIT/ML VIAL SQ SCH ×4 (06:37→20:47)
[2022-03-28] MEDS: ATORVASTATIN 80 MG TAB PO SCH (08:25)
[2022-03-28] MEDS: METOPROLOL SUCCINATE (ER) 100 MG TAB.ER.24H PO SCH (08:25)
[2022-03-28] MEDS: LOSARTAN 50 MG TAB PO SCH (08:25)
[2022-03-28] MEDS: DOCUSATE 100 MG CAP PO SCH ×2 (08:25→20:47)
[2022-03-28] MEDS: ASPIRIN 81 MG PO SCH (08:26)
[2022-03-28] MEDS ORDERED: METOPROLOL TARTRATE 50 MG TAB PO SCH (09:00)
[2022-03-28] MEDS ORDERED: ISOSORBIDE MONONITRATE ER 30 MG TAB.ER.24H PO SCH (09:00)
[2022-03-28] MEDS ORDERED: ASPIRIN 325 MG TAB PO SCH (09:00)
[2022-03-28] MEDS ORDERED: ALPRAZolam 0.25 MG TAB PO PRN (09:11)
[2022-03-28] MEDS ORDERED: ALPRAZolam 0.5 MG TAB PO PRN (09:11)
[2022-03-28 09:21] LABS: Mean Platelet Volume 7.5
[2022-03-28 09:39] LABS: Platelet Count 125 k/uL (150-450)
--- NOTE | 2022-03-28 10:17 | P.CRDCN ---
History of Present Illness History of present illness: HISTORY OF PRESENTING ILLNESS This is a pleasant 51-year-old female past medical history significant for coronary artery disease status post prior PCI LAD at [facility] in April 2020, type 2 diabetes, hypertension, dyslipidemia, CVA, former smoker. She follows in the office with Dr. Ojeda. We have been asked to see in consultation for chest pain and elevated troponin. Patient presents emergency department with worsening chest pain, shortness of breath and uncontrolled hype rtension. She states she has been having midsternal chest pain on and off for about 1-2 months. She states last week, she was being worked up for her right neck pain, had a cortisone shot scheduled and was told to hold her Prasugrel, she thought they said to hold all medications. She has not been taking any of her medications for 1 week. Her chest pain has worsened over the past week. It is located left sided, underneath her left breast, midsternal. Non-radiating. It is aggravated by activity. Her chest pain worsened with her elevated BP as well. She did have some mild relief with PRN Nitro. She states she has been taking Nitro at home more frequently. She has associated shortness of breath. She states this is different from her prior ID in 2019. She denies any nausea, vomiting, diaphoresis, lightheadedness, syncope or near syncope. No symptoms of orthopnea or PND. On admission BP elevated 219/111, medications restarted, patient given IV Labetolol 20mg and 10mg amlodipine with improvement in BP. DIAGNOSTICS * EKG reveals Sinus rhythm, HR 88, Non-specific abnormalities in anterior leads. Prior EKG in January with similar findings. Repeat EKG this morning no acute ischemia. * Telemetry tracings indicate sinus mechanism * Chest xray no acute cardiopulmonary process. * Laboratory reviewed, Troponin 0.26 x 2, WBC 9, hemoglobin 13.5, platelets 275, sodium 139, potassium 4.4, BUN 8, serum >0.7, lipase 316, magnesium 1.8 * Most recent Cath 05/06/2020- Patent stent in LAD, 2 diagonal branches that come off the stented segment are sluggish, dominant RCA 35% proximal stenosis, large obtuse marginal branch ostial lesion 45-50%, divides into 2 branches, inferior branch 60% stenosis. * Most recent Echo 04/2020- EF 55-60%, mild MR, mild TR * Recent MRI Brain 01/2022- report revealed 2 small remote lacunar infarct in the right caudate nucleus. No acute ischemic event. Moderate chronic i nflammatory changes in the maxillary and ethmoid sinuses. * Current home medications include metformin, Effient 10 mg daily, metoprolol succinate 20 mg daily, losartan 100 mg daily, Imdur 30 mg daily, Lasix 40 mg daily when necessary, atorvastatin 80 mg nightly, aspirin 80 mg daily Duonebs, Albuterol. REVIEW OF SYSTEMS At the time of my exam: CONSTITUTIONAL: Denies fever or chills. CARDIOVASCULAR: + chest pain, +shortness of breath, Denies orthopnea, PND or palpitations. RESPIRATORY: Denies cough. GASTROINTESTINAL: Denies abdominal pain, diarrhea, constipation, nausea or vomiting. MUSCULOSKELETAL: Denies myalgias. NEUROLOGIC: Denies numbness, tingling, headacbe or weakness. ENDOCRINE: Denies fatigue, weight change, polydipsia or polyurina. GENITOURINARY: Denies burning, hematuria or urgency with micturation. HEMATOLOGIC: Denies history of anemia or bleeding. PHYSICAL EXAMINATION Blood pressure 169/84 HR 83, afebrile >92% on room air CONSTITUTIONAL: No apparent distress. HEENT: Head is normocephalic. Pupils are equal, round. Sclerae anicteric. Mucous membranes of the mouth are moist. No JVD. No carotid bruit. CHEST EXAMINATION: Lungs are clear to auscultation. No chest wall tenderness is noted on palpation or with deep breathing. HEART EXAMINATION: Regular rate and rhythm. S1, S2 heard. No murmurs, gallops or rub. ABDOMEN: Soft, nontender. Positive bowel sounds. EXTREMITIES: 2+ peripheral pulses, no lower extremity edema and no calf tenderness. NEUROLOGIC EXAMINATION: Patient is awake, alert and oriented x3. ASSESSMENT Chest pain, elevated troponin, concerning for NSTEMI Hypertensive emergency Coronary artery disease status post prior PCI LAD at [facility] in April 2020 Type 2 diabetes Hypertension Dyslipidemia Former smoker PLAN Recommend controlling blood pressure Plan for cardiac catheterization with Dr. Ojeda tomorrow 03/29/2022 Obtain 2D echocardiogram and doppler study to assess cardiac structure and function. Continue home cardiac medications- aspirin, Effient, statin, losartan 100 mg daily, metoprolol succinate 200 mg daily IV Nitro started NPO after midnight I have discussed the risks, benefits and alternative therapies for the above- mentioned procedure and for both sedation/analgesia as well as necessary blood product administration, if indicated, as they pertain to this patient. The patient has indicated understanding and acceptance of the risks and procedures discussed. Questions have been answered appropriately and she is agreeable to move forward with the above-stated procedure. Further recommendations based on clinical course Nurse practitioner note has been reviewed by physician. Signing provider agrees with the documented findings, assessment, and plan of care. Past Medical History Past Medical History: Asthma, Diabetes Mellitus, Hyperlipidemia, Hypertension, Musculoskeletal Disorder, Thyroid Disorder Additional Past Medical History / Comment(s): Back Pain, right shoulder pain, Hx Pituitary Tumor, BENIGN. Thyroid disorder. History of Any Multi-Drug Resistant Organisms: None Reported Past Surgical History: Section, Heart Catheterization With Stent, Tubal Ligation Additional Past Surgical History / Comment(s): Pituitary Tumor Removed. colono scopy Past Anesthesia/Blood Transfusion Reactions: No Reported Reaction Date of Last Stent Placement:: april 28 2020 Past Psychological History: Anxiety, Depression Smoking Status: Former smoker Past Alcohol Use History: None Reported Additional Past Alcohol Use History / Comment(s): The patient had been a smoker on and off for 11 years, she quit 5 yrs. 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 Past Drug Use History: Marijuana Additional Drug Use History / Comment(s): OCC USE. - Past Family History Mother Family Medical History: Deep Vein Thrombosis (DVT) Additional Family Medical History / Comment(s): Mother is alive at age 67 with history of coronary artery disease and three-vessel CABG. Daughter(s) Family Medical History: Deep Vein Thrombosis (DVT) Additional Family Medical History / Comment(s): Patient has a total of 9 children with no major medical problems. Father Family Medical History: Cancer Additional Family Medical History / Comment(s): Father is alive with no history of coronary artery disease. History of Prostate Cancer Sister(s) Additional Family Medical History / Comment(s): The patient has 4 sisters and 1 brother. One sister had a myocardial infraction at age 40. Medications and Allergies Home Medications Medication Instructions Recorded Confirmed Type Albuterol Sulfate [Ventolin HFA] 2 puff INHALATION RT-Q6H PRN 05/05/20 03/27/22 History Aspirin EC [Ecotrin Low Dose] 81 mg PO DAILY 05/05/20 03/27/22 History Atorvastatin [Lipitor] 80 mg PO HS 05/05/20 03/27/22 History Furosemide [Lasix] 40 mg PO DAILY PRN 05/05/20 03/27/22 History Ipratropium-Albuterol Nebulize 3 ml INHALATION RT-TID PRN 05/05/20 03/27/22 History [Duoneb 0.5 mg-3 mg/3 ml Soln] Nitroglycerin Sl Tabs [Nitrostat] 0.4 mg SUBLINGUAL Q5M PRN 05/05/20 03/27/22 History Prasugrel [Effient] 10 mg PO DAILY 05/05/20 03/27/22 History Cholecalciferol [Vitamin D3 (125 125 mcg PO DAILY 01/17/22 03/27/22 History Mcg = 5000 Iu)] Losartan Potassium [Cozaar] 100 mg PO DAILY 01/17/22 03/27/22 History Metoprolol Succinate [Toprol XL] 200 mg PO DAILY 01/17/22 03/27/22 History Potassium Chloride [Potassium 20 meq PO DAILY PRN 01/17/22 03/27/22 History Chloride ER] Docusate [Colace] 100 mg PO BID 01/19/22 03/27/22 History Dulaglutide [Trulicity] 1.5 mg SQ WE 01/19/22 03/27/22 History Isosorbide Mononitrate ER [Imdur] 30 mg PO DAILY 01/19/22 03/27/22 History metFORMIN HCL [Glucophage] 1,000 mg PO BID 01/19/22 03/27/22 History Allergies Allergy/AdvReac Type Severity Reaction Status Date / Time peanut Allergy HIVES Verified 03/27/22 23:11 rice Allergy Rash/Hives Verified 03/27/22 23:11 seasonal Allergy Rash/Hives Uncoded 03/27/22 23:11 Physical Exam Vitals: Vital Signs Temp Pulse Pulse Resp BP BP Pulse Ox 03/28/22 05:25 83 169/84 03/28/22 04:45 73 20 03/28/22 04:33 98.1 F 74 18 233/100 95 03/28/22 03:40 73 20 224/103 94 L 03/28/22 02:18 82 18 165/72 94 L 03/27/22 23:53 82 18 161/82 94 L 03/27/22 21:41 98.6 F 91 13 219/111 95 Intake and Output 03/27/22 03/28/22 03/28/22 22:59 06:59 14:59 Other: Voiding Method Bedpan # Voids 1 Weight 91.9 kg 91.9 kg Results 03/28/22 08:42 03/27/22 22:00 Cardiac Enzymes 03/27/22 03/27/22 03/28/22 Range/Units 22:00 22:00 01:16 AST 24 (14-36) U/L Troponin I 0.268 H* 0.268 H* (0.000-0.034) ng/mL Coagulation 03/28/22 Range/Units 01:19 PT 10.2 (9.0-12.0) sec APTT 20.2 L (22.0-30.0) sec CBC 03/27/22 Range/Units 22:00 WBC 11.9 H (3.8-10.6) k/uL RBC 4.41 (3.80-5.40) m/uL Hgb 13.5 (11.4-16.0) gm/dL Hct 40.0 (34.0-46.0) % Plt Count 275 (150-450) k/uL Comprehensive Metabolic Panel 03/27/22 Range/Units 22:00 Sodium 139 (137-145) mmol/L Potassium 4.4 (3.5-5.1) mmol/L Chloride 102 (98-107) mmol/L Carbon Dioxide 29 (22-30) mmol/L BUN 8 (7-17) mg/dL Creatinine 0.71 (0.52-1.04) mg/dL Glucose 200 H (74-99) mg/dL Calcium 9.4 (8.4-10.2) mg/dL AST 24 (14-36) U/L ALT 19 (4-34) U/L Alkaline Phosphatase 113 (38-126) U/L Total Protein 7.3 (6.3-8.2) g/dL Albumin 4.2 (3.5-5.0) g/dL Current Medications Generic Name Dose Route Start Last Admin Trade Name Freq PRN Reason Stop Dose Admin Albuterol/Ipratropium 3 ml 03/28/22 03:37 Ipratropium-Albuterol 3 Ml Neb INHALATION RT-QID PRN Shortness Of Breath Or Wheezing Aspirin 325 mg 03/28/22 09:00 Aspirin 325 Mg Tab PO DAILY [facility] Atorvastatin Calcium 80 mg 03/28/22 09:00 Atorvastatin 80 Mg Tab PO DAILY [facility] Docusate Sodium 100 mg 03/28/22 09:00 Docusate 100 Mg Cap PO BID [facility] Furosemide 40 mg 03/28/22 03:35 Furosemide 40 Mg Tab PO DAILY PRN Edema Heparin Sodium/Sodium Chloride 250 mls @ 9.999 mls/hr 03/27/22 23:15 03/28/22 03:12 25,000 unit/ Sodium Chloride IV 10.88 units/kg/hr .Q24H [facility] 9.999 mls/hr Administration Protocol 10.88 UNITS/KG/HR Insulin Aspart 0 unit 03/28/22 07:30 03/28/22 06:37 Insulin Aspart (Novolog) 100 Unit/Ml Vial SQ 1 unit ACHS [facility] Administration Protocol Isosorbide Mononitrate 30 mg 03/28/22 09:00 Isosorbide Mononitrate Er 30 Mg Tab.Er.24h PO DAILY [facility] Losartan Potassium 100 mg 03/28/22 09:00 Losartan 50 Mg Tab PO DAILY [facility] Metoprolol Succinate 200 mg 03/28/22 09:00 Metoprolol Succinate (Er) 100 Mg Tab.Er.24h PO DAILY [facility] Morphine Sulfate 4 mg 03/27/22 23:13 03/28/22 05:34 Morphine Sulfate 4 Mg/Ml Syringe IV 4 mg Q4HR PRN Administration Chest Pain Nitroglycerin 0.4 mg 03/27/22 23:13 Nitroglycerin Sl Tabs 0.4 Mg Tab SUBLINGUAL Q5M PRN Chest Pain Nitroglycerin 1 inch 03/28/22 04:00 03/28/22 04:10 Nitroglycerin Oint 1 Inch/Gm Packet TOPICAL 1 inch Q8HR [facility] Administration Intake and Output 03/27/22 03/28/22 03/28/22 22:59 06:59 14:59 Other: Voiding Method Bedpan # Voids 1 Weight 91.9 kg 91.9 kg 03/27/22 22:00 03/27/22 22:00
[2022-03-28] MEDS: PRASUGREL 10 MG TAB PO SCH (10:59)
[2022-03-28] MEDS: NITROGLYCERIN-D5W PMX 50 MG in DEXTROSE/WATER 1 250ML.BAG IV SCH (11:00)
--- NOTE | 2022-03-28 11:30 | CA ---
Transthoracic Echo Report Name: Eleazar Balbuena Age: 51 Gender: F : 1970 Exam Date: 03/28/2022 07:34 Exam Location: [place] [facility] Ht (in): 59 Wt (lb): 202 Ordering Physician: Sarabjit Allen DO Attending/Referring Phys: [id number], Alejandro Diversity Manager Cici Greenberg, ASHLEY Procedure CPT: Indications: nstemi Cardiac Hx: Fm hx of heart disease, cath with 1 stent,htn,chol,diabetes and VT. Technical Quality: Good Contrast 1: Total Dose (mL): Contrast 2: Total Dose (mL): MEASUREMENTS (Male / Female) Normal Values 2D ECHO LV Diastolic Diameter PLAX 3.4 cm 4.2 - 5.9 / 3.9 - 5.3 cm LV Systolic Diameter PLAX 1.3 cm IVS Diastolic Thickness 1.2 cm 0.6 - 1.0 / 0.6 - 0.9 cm LVPW Diastolic Thickness 1.5 cm 0.6 - 1.0 / 0.6 - 0.9 cm LV Relative Wall Thickness 0.8 RV Internal Dim ED PLAX 2.8 cm M-MODE Aortic Root Diameter MM 3.0 cm LA Systolic Diameter MM 3.2 cm LA Ao Ratio MM 1.1 MV E Point Septal Separation 0.4 cm AV Cusp Separation MM 1.9 cm DOPPLER MV Area PHT 4.4 cm??? MR Peak Velocity 150.0 cm/s MR Peak Gradient 9.0 mmHg Mitral E Point Velocity 69.8 cm/s Mitral A Point Velocity 81.1 cm/s Mitral E to A Ratio 0.9 MV Deceleration Time 172.2 ms MV E' Velocity 5.2 cm/s Mitral E to MV E' Ratio 13.4 TR Peak Velocity 267.9 cm/s TR Peak Gradient 28.7 mmHg Right Ventricular Systolic Press 32.7 mmHg FINDINGS Left Ventricle Normal Left ventricular size, wall thickness, systolic function with no obvious regional wall motion abnormalities. Normal Left ventricular diastolic filling pattern. Left ventricular ejection fraction is estimated at 55-60 %. Right Ventricle The right ventricle is normal in size and function. Right Atrium The right atrium is normal in size. Left Atrium The left atrium is normal in size. Mitral Valve Structurally normal mitral valve without significant stenosis or prolapse. There is mild mitral regurgitation. Aortic Valve Structurally normal aortic valve without significant sclerosis or stenosis. There is no aortic regurgitation. Tricuspid Valve Structurally normal tricuspid valve without significant stenosis. Pulmonary artery systolic pressure is normal. Mild tricuspid regurgitation. Pulmonic Valve Structurally normal pulmonic valve without significant stenosis. There is no pulmonic regurgitation. Pericardium Normal pericardium without effusion. Aorta Normal aortic root dimension. CONCLUSIONS #1. Normal left ventricular size and function. #2. Mild mitral and tricuspid regurgitation Previewed by: Dr. Beth Christianson MD (Electronically Signed) Final Date: 28 March 2022 11:29
[2022-03-28 11:36] LABS: Glucose,Whole Blood 141 mg/dL (75-99)
[2022-03-28] MEDS ORDERED: FONDAPARINUX 7.5 MG/0.6 ML SYRINGE SQ SCH (12:00)
--- NOTE | 2022-03-28 12:11 | P.PN ---
Subjective Progress Note Date: 03/28/22 Patient still complaining of chest pain today. She says that this pain had previously improved with nitro but returns after 15 minutes of a dissolved tablet. Blood pressures have been high up to 200 over 110s. Troponins of increased. Plans for left heart cath tomorrow. Platelets of drop to 125 from 2 75. Gen: awake, alert HEENT: normocephalic, atraumatic, good hearing acuity, moist mucous membranes Resp: good air exchange, breathing comfortably with no accessory muscle use, clear to auscultation bilaterally CVS: good distal perfusion x 4, regular rate and rhythm without murmurs GI: soft, NTTP, ND : no SPT, no CVAT, riley catheter not present MSK: no pitting edema, no clubbing Neuro: non-focal, moving all extremities Psych: cooperative, euthymic mood Assessment/plan: Non-ST elevation OK Thrombocytopenia -aspirin, statin, prosugrel -Heparin drip discontinued, started fondaparinux -Cardiac monitoring -Cardiology consult -Trend troponin -Nitro drip Chronic conditions: Hypertension, hyperlipidemia, type II DM, asthma -Insulin sliding scale -Continue with home meds DVT prophylaxis -Heparin infusion CODE STATUS: Full code Discussed with: Patient Anticipated discharge date: 03/[address]: Home Objective - Vital Signs Vital signs: Vital Signs Temp 98 F 03/28/22 11:17 Pulse 69 03/28/22 11:17 Resp 17 03/28/22 11:17 BP 144/89 03/28/22 11:17 Pulse Ox 95 03/28/22 11:17 FiO2 Intake & Output 03/27/22 03/28/22 03/28/22 18:59 06:59 18:59 Weight 91.9 kg Other: Voiding Method Bedpan # Voids 1 2 - Labs CBC & Chem 7: 03/28/22 08:42 03/27/22 22:00 Labs: Abnormal Lab Results - Last 24 Hours (Table) 03/27/22 03/27/22 03/27/22 Range/Units 22:00 22:00 22:00 WBC 11.9 H (3.8-10.6) k/uL Plt Count (150-450) k/uL Neutrophils # 8.5 H (1.3-7.7) k/uL APTT (22.0-30.0) sec Glucose 200 H (74-99) mg/dL POC Glucose (mg/dL) (75-99) mg/dL Troponin I 0.268 H* (0.000-0.034) ng/mL Lipase 316 H (23-300) U/L 03/28/22 03/28/22 03/28/22 Range/Units 01:16 01:19 06:03 WBC (3.8-10.6) k/uL Plt Count (150-450) k/uL Neutrophils # (1.3-7.7) k/uL APTT 20.2 L (22.0-30.0) sec Glucose (74-99) mg/dL POC Glucose (mg/dL) 161 H (75-99) mg/dL Troponin I 0.268 H* (0.000-0.034) ng/mL Lipase (23-300) U/L 03/28/22 03/28/22 03/28/22 Range/Units 08:42 08:42 08:42 WBC (3.8-10.6) k/uL Plt Count 125 L D (150-450) k/uL Neutrophils # (1.3-7.7) k/uL APTT 32.4 H (22.0-30.0) sec Glucose (74-99) mg/dL POC Glucose (mg/dL) (75-99) mg/dL Troponin I 0.471 H* (0.000-0.034) ng/mL Lipase (23-300) U/L 03/28/22 Range/Units 11:34 WBC (3.8-10.6) k/uL Plt Count (150-450) k/uL Neutrophils # (1.3-7.7) k/uL APTT (22.0-30.0) sec Glucose (74-99) mg/dL POC Glucose (mg/dL) 141 H (75-99) mg/dL Troponin I (0.000-0.034) ng/mL Lipase (23-300) U/L
[2022-03-28 16:31] LABS: Glucose,Whole Blood 172 mg/dL (75-99)
[2022-03-28 17:34] LABS: Chol/HDL Ratio 5.24 Ratio; LDL Cholesterol,Calculated 158.1 mg/dL (0.0-131.0)
[2022-03-28 20:09] LABS: Glucose,Whole Blood 180 mg/dL (75-99)
[2022-03-29] MEDS ORDERED: SODIUM CHLORIDE 0.9% 1,000 ML in EMPTY BAG 1 BAG IV SCH
[2022-03-29 06:15] LABS: Glucose,Whole Blood 153 mg/dL (75-99)
[2022-03-29] MEDS: INSULIN ASPART (NovoLOG) 100 UNIT/ML VIAL SQ SCH ×4 (06:35→21:22)
[2022-03-29] MEDS: ASPIRIN 81 MG PO SCH (06:36)
[2022-03-29] MEDS: ATORVASTATIN 80 MG TAB PO SCH (06:36)
[2022-03-29] MEDS: LOSARTAN 50 MG TAB PO SCH (06:37)
[2022-03-29] MEDS: METOPROLOL SUCCINATE (ER) 100 MG TAB.ER.24H PO SCH (06:39)
[2022-03-29] MEDS: PRASUGREL 10 MG TAB PO SCH (06:58)
[2022-03-29] MEDS ORDERED: HEPARIN SODIUM,PORCINE 2,500 UNIT in SODIUM CHLORIDE 0.9% 250 ML IRRIGATION PRN (07:00)
[2022-03-29] MEDS ORDERED: HEPARIN SODIUM,PORCINE 10,000 UNIT in SODIUM CHLORIDE 0.9% 1,000 ML IRRIGATION PRN (07:00)
[2022-03-29] MEDS ORDERED: IV FLUID CONTINUATION 1,000 ML IV ONE (07:20)
[2022-03-29] MEDS ORDERED: LIDOCAINE 1% INJ 10MG/ML (30 ML VIAL-PF) SQ ONE ×2 (07:40→07:41)
[2022-03-29] MEDS ORDERED: MIDAZOLAM 2 MG/2 ML VIAL IV ONE (07:40)
[2022-03-29] MEDS ORDERED: NITROGLYCERIN SL TABS 0.4 MG TAB SUBLINGUAL ONE (07:49)
[2022-03-29] MEDS: NITROGLYCERIN 1000MCG/10ML SYRINGE INTRACORON ONE ×2 (07:54→08:19)
[2022-03-29] MEDS ORDERED: IOPAMIDOL-370 100ML BTL INJ ONE (08:03)
[2022-03-29] MEDS ORDERED: HEPARIN SODIUM 1,000 UN/ML (10ML VL) IV ONE (08:07)
[2022-03-29] MEDS ORDERED: fentaNYL (PF) 50 MCG/ML 2 ML AMP IV ONE (08:09)
[2022-03-29] MEDS ORDERED: HYDROmorphone 0.5 MG/0.5 ML SYRINGE IVP ONE (08:24)
[2022-03-29] MEDS ORDERED: IOPAMIDOL-370 125ML BTL INJ ONE (08:31)
[2022-03-29] MEDS ORDERED: PRASUGREL 10 MG TAB PO ONE (08:34)
[2022-03-29] MEDS: DOCUSATE 100 MG CAP PO SCH ×2 (09:08→20:22)
[2022-03-29] MEDS: amLODIPine 5 MG TAB PO SCH (09:08)
[2022-03-29] MEDS: SODIUM CHLORIDE 0.9% 1,000 ML IV SCH (09:08)
[2022-03-29 10:13] LABS: Basophils % (A) 0 %; Eosinophils # (A) 0.3 k/uL (0-0.7); Eosinophils % (A) 4 %; HCT 40.2 % (34.0-46.0); HGB 13.3 gm/dL (11.4-16.0); Lymphocytes % (A) 27 %; MCH 30.1 pg (25.0-35.0); MCHC 33.1 g/dL (31.0-37.0); Mean Platelet Volume 7.5; Monocytes # (A) 0.3 k/uL (0-1.0); Monocytes % (A) 4 %; Neutrophils # (A) 4.6 k/uL (1.3-7.7); Neutrophils % (A) 63 %; Platelet Count 239 k/uL (150-450); RBC 4.42 m/uL (3.80-5.40); RDW 13.9 % (11.5-15.5); WBC 7.3 k/uL (3.8-10.6)
[2022-03-29 10:15] LABS: African American GFR (CKD) >90 (>60 ml/min/1.73 sqM); Anion Gap 9 mmol/L; Blood Urea Nitrogen 9 mg/dL (7-17); Carbon Dioxide 20 mmol/L (22-30); Chloride 106 mmol/L (98-107); Glucose 142 mg/dL (74-99); Non-African American GFR(CKD) >90 (>60 ml/min/1.73 sqM); Potassium 4.4 mmol/L (3.5-5.1); Sodium 135 mmol/L (137-145)
[2022-03-29] MEDS: NITROGLYCERIN-D5W PMX 50 MG in DEXTROSE/WATER 1 250ML.BAG IV SCH (11:26)
--- NOTE | 2022-03-29 15:08 | CC ---
CARDIAC CATHETERIZATION REPORT DATE OF SERVICE: 03/29/2022. PROCEDURES: 1. Left heart catheterization and coronary angiography. 2. Percutaneous transluminal coronary angioplasty and stenting of a large obtuse marginal branch with a drug-eluting stent. PERFORMED BY: Dr. Jarrett Ojeda. Moderate conscious sedation time was 41 minutes. Patient was administered Versed and fentanyl. Oxygen saturation, hemodynamics and EKG were monitored closely. CLINICAL INFORMATION: Eleazar Balbuena is a 51-year-old obese lady with hypertension, diabetes, hyperlipidemia who in early 2019 had stenting of mid LAD at [facility], and subsequent cardiac catheterization performed by nd in April of that year revealed that the LAD was patent. There was moderate disease in circumflex. Patient was advised medical therapy. However, she came into the hospital with shortness of breath and chest tightness and had a mild troponin elevation suggestive of [id number] [place] and she was advised cardiac catheterization after due discussion regarding risks, benefits and options. PROCEDURE NOTE: Under local anesthesia and strict aseptic precautions, a 6-Amharic introducer was placed in the right femoral artery. Using standard Chay catheters I performed coronary angiography, and the same right Chay catheter was used to check LV pressure, but LV gram was not performed. Subsequently I performed intervention of the circumflex marginal. Following this, the sheath was taken out and Angio-Seal device used to secure hemostasis and she was sent to the room in a stable condition. CARDIAC CATHETERIZATION FINDINGS: The left ventricular end-diastolic pressure was about 10 mmHg without any gradient across aortic valve. CORONARY ANGIOGRAPHY FINDINGS: RIGHT CORONARY ARTERY: Technically a dominant vessel that has about a 35% or so proximal lesion, unchanged from before. It distally bifurcates into PDA and PLV. PDA is larger, PLV smaller; minor irregularities, no significant disease. Angiographically it looks very similar to the previous catheterization from 2019. LEFT MAIN CORONARY ARTERY: Short, patent, disease-free vessel that bifurcates into LAD and circumflex. No significant disease. LEFT ANTERIOR DESCENDING CORONARY ARTERY: Good-caliber vessel extends along the anterior wall. No significant disease; 35% lesion noted. There is a 35% to 40% lesion after the stented segment. Stented segment is widely patent with brisk flow. CIRCUMFLEX CORONARY ARTERY: Nondominant vessel; however, large in caliber and distribution. There is a high first obtuse marginal and a ramus branch that is of fair caliber of 2.2 mm. There is an ostial lesion of about 90%, but the branch is somewhat small and the disease is located right at the ostium as it comes off from the left main. This angiographic appearance is about the same from what it was in 2020. LEFT POSTERIOR CIRCUMFLEX CORONARY ARTERY: Continues and gives off a large obtuse marginal branch which then divides into two branches. This large obtuse marginal branch has a 95% stenosis, which is the culprit lesion. The continuation of circumflex distally has minor irregularities, no significant disease. Left ventriculogram was not performed. FINAL IMPRESSION: This patient has a widely patent LAD that was stented before, dominant RCA with mild diffuse disease in the distal branches and 35% proximal RCA disease. Circumflex marginal has a 95% stenosis and an inferior branch of the circumflex marginal has a 50% narrowing, unchanged. Distal circumflex has minor irregularities. There is a small ramus that has a 95% stenosis. It is very small in caliber and distribution. RECOMMENDATIONS: I advised PCI of obtuse marginal and performed this in the same setting. PERCUTANEOUS CORONARY INTERVENTION PROCEDURE DETAILS: I used a JL4 guide catheter of 6-Amharic caliber to cannulate the left coronary artery and a run-through wire to cross the lesion. A 2.5 caliber 12 mm NC Trek balloon was used to pre-dilate the lesion. I then deployed a 3.25 caliber Xience stent at the site of lesion. Excellent angiographic result was achieved. Patient had chest discomfort but no EKG changes. There was a small side branch of about 1 mm coming off from the lesion, and this side branch had some sluggish flow. The side branch also had independent lesion. Excellent angiographic result was achieved without complication. Patient's EKG was unremarkable. She was hemodynamically stable, did not have any angina. The sheath was taken out and Angio-Seal device used to secure hemostasis and she was sent to the room in stable condition. ACT was 262. She received 6500 units of heparin. She also received additional Effient 30 mg today; and she was already on Effient and aspirin combination, which she will continue. Results and details were discussed with the patient as well as her family, including and her parents. I expect she will be discharged tomorrow and I will see her in the office in one week. She is advised to follow up with the [facility] as well. MMODL / IJN: [id number] /
[2022-03-29] MEDS ORDERED: hydrALAZINE HCL 25 MG TAB PO STA (17:31)
--- NOTE | 2022-03-29 17:35 | P.PN ---
Subjective Progress Note Date: 03/29/22 (delayed charting seen at 1055) Patient is a 51-year-old female with diabetes mellitus type 2, coronary artery disease status post multiple stents, hypertension, and dyslipidemia who initial ly presented with chest discomfort. In the ER she underwent an extensive evaluation. EKG without significant ST-T wave changes. She was found to have a mildly elevated troponin of 0.68. She was admitted for non-ST segment elevated myocardial infarction and was started on a heparin infusion. Her aspirin, effient, and statin were continued. She underwent cardiac cath on 03/29/22 with a stent to the obtuse marginal. Echocardiogram was completed which showed an ejection fraction of 55-60%. Patient seen and examined at bedside with her mother present. She is currently having some nausea. She denies any chest pain, shortness of breath at this time. We had a long discussion regarding her diabetic management. All questions answered. General: non toxic, no distress, appears at stated age Derm: warm, dry Head: atraumatic, normocephalic, symmetric Eyes: EOMI, no lid lag, anicteric sclera Mouth: no lip lesion, mucus membranes moist Cardiovascular: S1S2 reg, no murmur, positive posterior tibial pulse bilateral, Lungs: Decreased bs bilateral, no rhonchi, no rales , no accessory muscle use Ext: no gross muscle atrophy, no edema, no contractures Neuro: CN II-XI grossly intact, no focal neuro deficits Psych: Alert, oriented, appropriate affect Assessment/plan: Non-ST segment elevated myocardial infarction status post PCI to the obtuse marginal HTN urgency Dyslipidemia - effient, statin, ASA - cardio recs - Continue with Cozaar, metoprolol, Lasix, Norvasc has been added - Hydralazine 1 now to elevated blood pressures DM2 - patient struggels with compliance at home, not interesed in insulin at home - hold metformin and trulicity - SSI - check A1C - will follow with endocrine on discharge. Chronic pain - follow-up with pain clinic DVT prophylaxis: SCD Discussed with: patient, mother Anticipated discharge: in AM Anticipated discharge place: home A total of 45 minutes was spent on the care of this complex patient more than 50% of the time was spent in counseling and care coordination. Objective - Vital Signs Vital signs: Vital Signs Temp 98.9 F 03/29/22 06:14 Pulse 65 03/29/22 17:00 Resp 18 03/29/22 17:00 BP 179/89 03/29/22 17:00 Pulse Ox 99 03/29/22 17:00 FiO2 Intake & Output 03/28/22 03/29/22 03/29/22 18:59 06:59 18:59 Intake Total 150 Balance 150 Intake: IV 150 Oral 0 Other: Voiding Method Toilet Toilet # Voids 2 1 1 - Labs CBC & Chem 7: 03/29/22 09:17 03/29/22 09:17 Labs: Abnormal Lab Results - Last 24 Hours (Table) 03/28/22 03/28/22 03/29/22 Range/Units 08:42 20:07 06:14 Sodium (137-145) mmol/L Carbon Dioxide (22-30) mmol/L Glucose (74-99) mg/dL POC Glucose (mg/dL) 180 H 153 H (75-99) mg/dL Cholesterol 225.00 H (0.00-200.00) mg/dL LDL Cholesterol, Calc 158.1 H (0.0-131.0) mg/dL 03/29/22 Range/Units 09:17 Sodium 135 L (137-145) mmol/L Carbon Dioxide 20 L (22-30) mmol/L Glucose 142 H (74-99) mg/dL POC Glucose (mg/dL) (75-99) mg/dL Cholesterol (0.00-200.00) mg/dL LDL Cholesterol, Calc (0.0-131.0) mg/dL
[2022-03-29] MEDS ORDERED: hydrALAZINE HCL 25 MG TAB PO ONE (18:30)
[2022-03-30] MEDS: SODIUM CHLORIDE 0.9% 1,000 ML IV SCH (02:00)
[2022-03-30 04:26] VITALS: TEMP 99.8
[2022-03-30] MEDS: INSULIN ASPART (NovoLOG) 100 UNIT/ML VIAL SQ SCH ×2 (06:38→12:15)
[2022-03-30] MEDS: LOSARTAN 50 MG TAB PO SCH (09:10)
[2022-03-30] MEDS: amLODIPine 5 MG TAB PO SCH (09:11)
[2022-03-30] MEDS: ATORVASTATIN 80 MG TAB PO SCH (09:11)
[2022-03-30] MEDS: METOPROLOL SUCCINATE (ER) 100 MG TAB.ER.24H PO SCH (09:11)
[2022-03-30] MEDS: PRASUGREL 10 MG TAB PO SCH (09:11)
[2022-03-30] MEDS: ASPIRIN 81 MG PO SCH (09:11)
[2022-03-30] MEDS: DOCUSATE 100 MG CAP PO SCH (09:11)
[2022-03-30] MEDS ORDERED: EZETIMIBE 10 MG TAB PO SCH (09:45)
[2022-03-30 11:22] VITALS: PULSE 67; RESP 16
[2022-03-30 12:22] VITALS: BP 148/91
--- NOTE | 2022-03-30 12:49 | P.PN ---
Subjective This is a pleasant 51-year-old female past medical history significant for coronary artery disease status post prior PCI LAD at [facility] in April 2020, type 2 diabetes, hypertension, dyslipidemia, CVA, former smoker. She follows in the office with Dr. Ojeda. We have been asked to see in consultation for chest pain and elevated troponin. Patient presents emergency department with worsening chest pain, shortness of breath and uncontrolled hypertension. Started on IV heparin. Her blood pressure improved. Started on IV Nitro for chest pain. Her cardiac enzymes were abnormal with 0.26, 0.26, 0.47. EKG revealed no evidence of acute ischemia. Secondary to continued chest pain and elevated troponin cardiac catheterization was recommended. Yesterday patient underwent cardiac catheterization with Dr. Ojeda which revealed widely patent LAD yesterday before, dominant RCA with mild diffuse disease in the distal branches and 35% proximal RCA disease. Circumflex marginal has 95% stenosis in inferior branch of the circumflex 50% narrowing. small ramus that has 95% stenosis. Patient underwent PCI to obtuse marginal branch. Patient seen and examined at bedside, no acute distress. Her symptoms have some typical improved. No chest pain or shortness of breath. She does have some tenderness at the right groin site, small hematoma noted, 2+ peripheral pulses . BP has improved. Amlodipine 5mg started yesterday. Echocardiogram revealed an EF of 55-60%, mild mitral and mild tricuspid regurgitation. PHYSICAL EXAMINATION Blood pressure 148/91, heart rate 67, afebrile, saturations 100% on room air CONSTITUTIONAL: No apparent distress. HEENT: Neck Supple. No JVD. CHEST EXAMINATION: Lungs are clear to auscultation. No chest wall tenderness is noted on palpation or with deep breathing. HEART EXAMINATION: Regular rate and rhythm. S1, S2 heard. No murmurs, gallops or rub. ABDOMEN: Soft, nontender. Positive bowel sounds. EXTREMITIES: 2+ peripheral pulses, no lower extremity edema and no calf t enderness. NEUROLOGIC EXAMINATION: Patient is awake, alert and oriented x3. SKIN: right groin cath site, clean dry intact, some tenderness at the right groin site, small hematoma noted, 2+ peripheral pulses ASSESSMENT Chest pain, elevated troponin, concerning for NSTEMI Status post PCI to obtuse marginal branch on 03/29. Hypertensive emergency Coronary artery disease status post prior PCI LAD at [facility] in April 2020 Type 2 diabetes Hypertension Dyslipidemia Former smoker PLAN Obtain US of right groin Continue dual antiplatelet therapy with aspirin and Brilinta Add Zetia 10mg daily Continue statin, losartan 100 mg daily, metoprolol succinate 200 mg daily, amlodipine 5mg daily From a cardiology perspective, if US groin with no significant findings ok to discharge and follow up outpatient with Dr. Ojeda in 1 week, patient with appointment on 04/05/22. Nurse practitioner note has been reviewed by physician. Signing provider agrees with the documented findings, assessment, and plan of care. Objective - Vital Signs Vital signs: Vital Signs Temp 99.8 F H 03/30/22 04:00 Pulse 67 03/30/22 08:00 Resp 16 03/30/22 12:00 BP 148/91 03/30/22 12:00 Pulse Ox 100 03/30/22 12:00 FiO2 Intake & Output 03/29/22 03/30/22 03/30/22 18:59 06:59 18:59 Intake Total 650 118 Balance 650 118 Intake: IV 150 Oral 500 118 Other: Voiding Method Toilet Toilet Toilet # Voids 1 1 # Bowel Movements 1 - Labs CBC & Chem 7: 03/29/22 09:17 03/29/22 09:17 Labs: Abnormal Lab Results - Last 24 Hours (Table) 03/29/22 Range/Units 09:17 Hemoglobin A1c 8.1 H (0.0-6.0) %
[2022-03-30 12:58] LABS: HCT 41.2 % (34.0-46.0); HGB 13.6 gm/dL (11.4-16.0); MCH 29.7 pg (25.0-35.0); MCHC 32.9 g/dL (31.0-37.0); MCV 90.3 fL (80.0-100.0); Mean Platelet Volume 7.4; Platelet Count 240 k/uL (150-450); RBC 4.57 m/uL (3.80-5.40); RDW 13.8 % (11.5-15.5); WBC 8.4 k/uL (3.8-10.6)
--- NOTE | 2022-03-30 14:40 | US ---
EXAMINATION TYPE: US lower ext pseudo artery RT DATE OF EXAM: 03/30/2022 COMPARISON: NONE CLINICAL HISTORY: Right groin. Recent cardiac catheterization. heart cath yesterday, [employer] felt palpable area EXAM PERFORMED: Grayscale and color Doppler duplex imaging performed of the groin, post cardiac [address] to assess for pseudoaneurysm. SIDE PERFORMED: Right Color and Waveform Doppler performed to assess for the presence of pseudoaneurysm; Is there ultrasound evidence of a pseudoaneurysm: no Is there evidence of AV shunting: no Is there a fluid collection present: no Multiple enlarged lymph nodes within groin, measured the largest = 2.5 x 1.5 x 0.8cm IMPRESSION: 1. No suspicious changes to suggest pseudoaneurysm. 2. Enlarged lymphadenopathy within the right inguinal region follow-up can be performed.
--- NOTE | 2022-03-30 14:50 | P.DS ---
Providers Date of admission: 03/27/22 23:13 Expected date of discharge: 03/30/22 Attending physician: Juan Manuel Knox MD Consults: 03/27/22 23:13 Consult Physician Urgent Consulting Provider: Eliana Rose Consult Reason/Comments: NTEMI Do you want consulting provider notified?: Yes Primary care physician: Stated None Hospital Course: Discharge Diagnosis: Non-ST segment elevated myocardial infarction status post PCI to the obtuse marginal on 03/29 Hypertensive emergency Coronary artery disease Right-sided inguinal lymphadenopathy-outpatient follow-up Diabetes mellitus type 2, suboptimal control with A1c 8.1 Hypertension Dyslipidemia Chronic pain Hospital Course: Patient is a 51-year-old female with diabetes mellitus type 2, coronary artery disease status post multiple stents, hypertension, and dyslipidemia who initially presented with chest discomfort. In the ER she underwent an extensive evaluation. EKG without significant ST-T wave changes. She was found to have a mildly elevated troponin of 0.68. She was admitted for non-ST segment elevated myocardial infarction and was started on a heparin infusion. Her aspirin, effient, and statin were continued. She underwent cardiac cath on 03/29/22 with a stent to the obtuse marginal. Echocardiogram was completed which showed an ejection fraction of 55-60%. Cholesterol was elevated and she was started on zetia. She underwent a groin ultrasound which showed right sided inguinal lymphadenopathy. They recommended outpatient follow-up. Follow-up: Dr. Ojeda in 1 week, PCP and endocrinology in 1 week . Take medications as directed. Follow [facility] endocrinology. Patient seen and examined at bedside. Doing well. Without complaints. Denies any chest pain or shortness of breath. 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 I have given her Dr. Phelps's number should she be unable to recall who she sees for endocrinology. Vital signs reviewed and stable. General: non toxic, no distress, appears at stated age Derm: warm, dry Head: atraumatic, normocephalic, symmetric Eyes: EOMI, no lid lag, anicteric sclera Mouth: no lip lesion, mucus membranes moist Cardiovascular: S1S2 reg, no murmur, positive posterior tibial pulse bilateral, Lungs: CTA bilateral, no rhonchi, no rales , no accessory muscle use Abdominal: soft, nontender to palpation, no guarding, no appreciable organomegaly Ext: no gross muscle atrophy, no edema, no contractures Neuro: CN II-XI grossly intact, no focal neuro deficits Psych: Alert, oriented, appropriate affect A total of 37 minutes of time were spent preparing this complex discharge summary. Patient was discharged on 03/30/22. Patient Condition at Discharge: Stable Plan - Discharge Summary New Discharge Prescriptions: New amLODIPine [Norvasc] 5 mg PO DAILY #90 tab Ezetimibe [Zetia] 10 mg PO DAILY 90 Days #90 tab Continue Prasugrel [Effient] 10 mg PO DAILY Nitroglycerin Sl Tabs [Nitrostat] 0.4 mg SUBLINGUAL Q5M PRN PRN Reason: Chest Pain Furosemide [Lasix] 40 mg PO DAILY PRN PRN Reason: Edema Ipratropium-Albuterol Nebulize [Duoneb 0.5 mg-3 mg/3 ml Soln] 3 ml INHALATION RT-TID PRN PRN Reason: Shortness Of Breath Atorvastatin [Lipitor] 80 mg PO HS Aspirin EC [Ecotrin Low Dose] 81 mg PO DAILY Albuterol Sulfate [Ventolin HFA] 2 puff INHALATION RT-Q6H PRN PRN Reason: Shortness Of Breath Metoprolol Succinate [Toprol XL] 200 mg PO DAILY Losartan Potassium [Cozaar] 100 mg PO DAILY Potassium Chloride [Potassium Chloride ER] 20 meq PO DAILY PRN PRN Reason: Edema Isosorbide Mononitrate ER [Imdur] 30 mg PO DAILY Cholecalciferol [Vitamin D3 (125 Mcg = 5000 Iu)] 125 mcg PO DAILY Docusate [Colace] 100 mg PO BID Dulaglutide [Trulicity] 1.5 mg SQ WE metFORMIN HCL [Glucophage] 1,000 mg PO BID Discharge Medication List Albuterol Sulfate [Ventolin HFA] 2 puff INHALATION RT-Q6H PRN 05/05/20 [History] Aspirin EC [Ecotrin Low Dose] 81 mg PO DAILY 05/05/20 [History] Atorvastatin [Lipitor] 80 mg PO HS 05/05/20 [History] Furosemide [Lasix] 40 mg PO DAILY PRN 05/05/20 [History] Ipratropium-Albuterol Nebulize [Duoneb 0.5 mg-3 mg/3 ml Soln] 3 ml INHALATION RT-TID PRN 05/05/20 [History] Nitroglycerin Sl Tabs [Nitrostat] 0.4 mg SUBLINGUAL Q5M PRN 05/05/20 [History] Prasugrel [Effient] 10 mg PO DAILY 05/05/20 [History] Cholecalciferol [Vitamin D3 (125 Mcg = 5000 Iu)] 125 mcg PO DAILY 01/17/22 [History] Losartan Potassium [Cozaar] 100 mg PO DAILY 01/17/22 [History] Metoprolol Succinate [Toprol XL] 200 mg PO DAILY 01/17/22 [History] Potassium Chloride [Potassium Chloride ER] 20 meq PO DAILY PRN 01/17/22 [History] Docusate [Colace] 100 mg PO BID 01/19/22 [History] Dulaglutide [Trulicity] 1.5 mg SQ WE 01/19/22 [History] Isosorbide Mononitrate ER [Imdur] 30 mg PO DAILY 01/19/22 [History] metFORMIN HCL [Glucophage] 1,000 mg PO BID 01/19/22 [History] Ezetimibe [Zetia] 10 mg PO DAILY 90 Days #90 tab 03/30/22 [Rx] amLODIPine [Norvasc] 5 mg PO DAILY #90 tab 03/30/22 [Rx] Follow up Appointment(s)/Referral(s): Will Ojeda MD [STAFF PHYSICIAN] - 04/05/22 10:00 am None,Stated [Primary Care Provider] - 1-2 days Yandy Phelps MD [STAFF PHYSICIAN] - As Needed (endocrinology) [facility] [NON-STAFF] - 1 Week Patient Instructions/Handouts: Ezetimibe (By mouth), Heart Healthy Diet (ED), Mediterranean Diet (GEN) Activity/Diet/Wound Care/Special Instructions: Special Instructions: Follow-up: Primary care provider, cook fry Nebulizer script and supporting documentation faxed to [facility] on 03/28/22 Please do not go back to work until you see Dr. Ojeda in the office for your follow up and are cleared to go back to work. Cardiology Instructions After Cardiac Catheterization with Stent Placement: Healthy LifeStyle It is important to keep a heart healthy lifestyle. This can improve your long- term health and decrease your risk for heart attacks. -Managing your blood cholesterol, blood pressure, weight, and stress. -The importance of regular exercise. -Heart Healthy Diet/Mediterranean Diet: Include more plants in your diet. Eat lots of fresh vegetables and fresh fruits. Eat good fats: plant based oils, avocado, nuts, beans, legumes. Eat more seafood. Limit Meat. Switch to whole grains. -Avoid fried foods and animal fats and processed meats 1. Aspirin as anti-platelet therapy - Aspirin lessens the chance of heart attack and stroke. It helps prevent blood clots from forming, allowing the blood to flow more easily. Each day, you will take one 81 mg (non-enteric coated) tablet daily. You will be taking aspirin as a lifelong medication. Do not stop unless instructed by your doctor. 2. Anti-platelet Therapy. -In addition to aspirin, you will take ONE of the following anti-platelet medications daily. This will help prevent a clot from forming in your stent: Effient (prasugrel) -You will need to take your anti-platelet medicine every day for 12 months -Please consult your heart doctor before you stop this medicine. -They may want you to continue for a longer period of time. 3. Statins -A statin medication lowers cholesterol levels in the blood. This helps slow the progression of heart disease. - Please take your statin medication as prescribed by your doctor. -You may be taking one of the following statins: Lipitor (atorvastatin) Other Medications: -ACEI/ Angiotensin II Receptor Jose- (Your Medication: Losartan) can help your heart work better after a heart attack and decrease the amount of damage from a heart attack -Beta jose. (Your Medication: Metoprool)Is a medication that protects your heart from stress and can prevent future heart attacks. It can slow your heart rate. It can take weeks for your body to get used to a beta jose. The dose may need to be changed a few times as your body adjusts -Calcium channel jose (Your Medication: Amlodipine)- Helps control your blood pressure -Ezetimibe (Zetia): Helps lower the lipids in your blood, which will prevent future blockages in your coronary arteries. Works with Lipitor. Do not stop taking these medicines without talking to your doctor. -Take all other medicines as directed by your doctor. Do not take any extra aspirin or ibuprofen. They can increase your risk of bleeding. Many [id number] drugs contain aspirin. If you are unsure about what the drug contains, check with your pharmacist before taking it. -For mild discomfort, you may take plain Tylenol (acetaminophen). Follow dose directions, but do not take more than 4,000 mg of acetaminophen in 24 hours. Contact your doctor right away or go to the nearest hospital Emergency Room if you have: -Severe angina or chest pain. (This may be a sign of a problem with your stent.) -Excessive bruising, blood in urine/stool or black tarry stools. Follow up with [facility] [place] [phone] Discharge Disposition: HOME SELF-CARE
== END 2022-03-30 15:33 | disposition home or self-care (01) | DRG 247 ==
LOC: EC 21:37 → 3SCARD 23:13
PROVIDERS: ADMIT Internal Medicine; ATTEND Internal Medicine
PROC: B2111ZZ Fluoroscopy of Multiple Coronary Arteries using Low Osmolar Contrast (ICD-10-PCS; 2022-03-29)
PROC: 027034Z Dilation of Coronary Artery, One Artery with Drug-eluting Intraluminal Device, Percutaneous Approach (ICD-10-PCS; principal; 2022-03-29 07:30)
PROC: 4A023N7 Measurement of Cardiac Sampling and Pressure, Left Heart, Percutaneous Approach (ICD-10-PCS; 2022-03-29 07:30)
DX: I21.4 Non-ST elevation (NSTEMI) myocardial infarction (principal); I16.1 Hypertensive emergency; I25.10 Atherosclerotic heart disease of native coronary artery without angina pectoris; D69.6 Thrombocytopenia, unspecified; I10 Essential (primary) hypertension; E78.5 Hyperlipidemia, unspecified; E11.9 Type 2 diabetes mellitus without complications; F32.A Depression, unspecified; F41.9 Anxiety disorder, unspecified; R59.0 Localized enlarged lymph nodes; J45.20 Mild intermittent asthma, uncomplicated; J30.9 Allergic rhinitis, unspecified; G89.29 Other chronic pain; I25.2 Old myocardial infarction; Z79.02 Long term (current) use of antithrombotics/antiplatelets; Z79.82 Long term (current) use of aspirin; Z79.84 Long term (current) use of oral hypoglycemic drugs; Z79.899 Other long term (current) drug therapy; Z95.5 Presence of coronary angioplasty implant and graft; Z87.891 Personal history of nicotine dependence; Z86.73 Personal history of transient ischemic attack (TIA), and cerebral infarction without residual deficits; Z98.51 Tubal ligation status; Z86.018 Personal history of other benign neoplasm; Z82.49 Family history of ischemic heart disease and other diseases of the circulatory system; Z91.010 Allergy to peanuts; Z91.018 Allergy to other foods
CPT/HCPCS: 36415; 71045; 80048; 80053; 80061; 83036; 83690; 83735; 83880; 84484; 85025; 85027; 85049; 85610; 85730; 86022; 93005; 93306; 93458; 93975; 96374; 96375; 99291

== ENCOUNTER → 2022-04-20 | Outpatient (CLI) | payer OTHER ==
--- NOTE | 2022-04-20 14:24 | US ---
EXAMINATION TYPE: US carotid duplex BILAT DATE OF EXAM: 04/20/2022 COMPARISON: NONE CLINICAL HISTORY: R55 SYNCOPE AND COLLAPSE. EXAM MEASUREMENTS: RIGHT: Peak Systolic Velocity (PSV) cm/sec ----- Right CCA: 78.5 ----- Right ICA: 85.7 ----- Right ECA: 71.2 ICA/CCA ratio: 1.0 RIGHT: End Diastole cm/sec ----- Right CCA: 30.9 ----- Right ICA: 25.3 ----- Right ECA: 9.4 LEFT: Peak Systolic Velocity (PSV) cm/sec ----- Left CCA: 86.4 ----- Left ICA: 96.0 ----- Left ECA: 51.4 ICA/CCA ratio: 1.11 LEFT: End Diastole cm/sec ----- Left CCA: 28.2 ----- Left ICA: 33.4 ----- Left ECA: 10.4 VERTEBRALS (direction of flow): Right Vertebral: Antegrade Left Vertebral: Antegrade Rhythm: Normal Patient has large thick neck, technically difficult. No evident atherosclerotic changes with no sign ificant velocity increases IMPRESSION: No evidence for hemodynamically significant stenosis. Criteria for Assigning % of Stenosis / Diameter reduction (Estimation based on the indirect measurements of the internal carotid artery velocities (ICA PSV). 1. Normal (no stenosis)=ICA PSV < 125 cm/s: ratio < 2.0: ICA EDV<40 cm/s. 2. Less than 50% stenosis=ICA PSV < 125 cm/s: ratio < 2.0: ICA EDV<40 cm/s. 3. 50 to 69% stenosis=ICA PSV of 125 to 230 cm/s: ration 2.0 ? 4.0: ICA EDV 40-100 cm/s. 4. Greater than 70% stenosis to near occlusion= ICA PSV > 230 cm/s: ratio > 4.0: ICA EDV > 100 cm/s. 5. Near occlusion= ICA PSV velocities may be low or undetectable: variable ratio and ICA EDV. 6. Total occlusion=unable to detect flow.
== END | disposition home or self-care (01) ==
LOC: RADUSWWP 13:14
PROVIDERS: ATTEND Psychiatry & Neurology Neurology
DX: R55 Syncope and collapse (principal)
CPT/HCPCS: 93880

== ENCOUNTER → 2022-05-02 | Outpatient (CLI) | payer OTHER ==
--- NOTE | 2022-05-03 08:45 | MM ---
Reason for Exam: Screening (asymptomatic). Last mammogram was performed 4 year(s) and 9 month(s) ago. Patient History: Menarche at age 15. First Full-Term at age 21. Postmenopausal. Last menstrual period: 10/22/2019 Risk Values: Leighann 5 year model risk: 0.7%. NCI Lifetime model risk: 6.6%. Prior Study Comparison: 07/12/2015 Bilateral Screening Mammogram, [facility]. 07/27/2016 Bilateral Screening Mammogram, [facility]. 08/13/2017 Bilateral Screening Mammogram, [facility]. Tissue Density: There are scattered fibroglandular densities. Findings: Analyzed By CAD. There is no suspicious group of microcalcifications or new suspicious mass in either breast. Overall Assessment: Negative, BI-RAD 1 Management: Screening Mammogram of both breasts in 1 year. A clinical breast exam by your physician is recommended on an annual basis and results should be correlated with mammographic findings. Electronically signed and approved by: Galen Velazquez M.D.
== END | disposition home or self-care (01) ==
LOC: RADMAMWWP 07:47
PROVIDERS: ATTEND Obstetrics & Gynecology
DX: Z12.31 Encounter for screening mammogram for malignant neoplasm of breast (principal); Z78.0 Asymptomatic menopausal state
CPT/HCPCS: 77067

== ENCOUNTER 2022-06-10 09:31 | Emergency (ER) | payer OTHER ==
[2022-06-10 09:35] VITALS: TEMP 98.3
[2022-06-10] MEDS ORDERED: HYDROmorphone 0.5 MG/0.5 ML SYRINGE IVP STA (10:01)
[2022-06-10] MEDS ORDERED: SODIUM CHLORIDE 0.9% 1,000 ML IV STA (10:01)
[2022-06-10] MEDS ORDERED: ONDANSETRON 4 MG/2 ML VIAL IVP STA (10:01)
[2022-06-10 11:01] LABS: Basophils % (A) 0 %; Eosinophils # (A) 0.2 k/uL (0-0.7); Eosinophils % (A) 3 %; HCT 36.9 % (34.0-46.0); HGB 12.2 gm/dL (11.4-16.0); Lymphocytes # (A) 2.7 k/uL (1.0-4.8); Lymphocytes % (A) 32 %; MCH 29.6 pg (25.0-35.0); MCV 89.8 fL (80.0-100.0); Mean Platelet Volume 7.4; Monocytes # (A) 0.3 k/uL (0-1.0); Monocytes % (A) 3 %; Neutrophils # (A) 5.1 k/uL (1.3-7.7); Neutrophils % (A) 60 %; Platelet Count 257 k/uL (150-450); RBC 4.11 m/uL (3.80-5.40); RDW 13.6 % (11.5-15.5); WBC 8.5 k/uL (3.8-10.6)
[2022-06-10 11:03] LABS: Appearance,Urine Clear (Clear); Bilirubin,Urine Negative (Negative); Blood,Urine Negative (Negative); Color,Urine Light Yellow; Glucose,Urine (UA) Negative (Negative); Ketones,Urine Negative (Negative); Leukocyte Esterase,Urine Negative (Negative); Nitrite,Urine Negative (Negative); Protein,Urine Negative (Negative); Specific Gravity,Urine 1.007 (1.001-1.035); Urobilinogen,Urine <2.0 mg/dL (<2.0)
[2022-06-10 11:12] LABS: ALT 13 U/L (4-34); AST 19 U/L (14-36); African American GFR (CKD) >90 (>60 ml/min/1.73 sqM); Albumin 3.7 g/dL (3.5-5.0); Alcohol <10 mg/dL; Alkaline Phosphatase 121 U/L (38-126); Amylase 76 U/L (30-110); Anion Gap 7 mmol/L; Blood Urea Nitrogen 13 mg/dL (7-17); Calcium 8.9 mg/dL (8.4-10.2); Carbon Dioxide 26 mmol/L (22-30); Chloride 104 mmol/L (98-107); Glucose 124 mg/dL (74-99); Lipase 196 U/L (23-300); Non-African American GFR(CKD) >90 (>60 ml/min/1.73 sqM); Potassium 4.5 mmol/L (3.5-5.1); Sodium 137 mmol/L (137-145); Total Bilirubin 0.3 mg/dL (0.2-1.3); Total Protein 6.7 g/dL (6.3-8.2)
[2022-06-10 11:44] LABS: Amphetamine Screen,Urine Not Detected (NotDetected); Barbiturate Screen,Urine Not Detected (NotDetected); Benzodiazepines Screen,Urine Not Detected (NotDetected); Cocaine Screen,Urine Not Detected (NotDetected); Methadone Screen, Urine Not Detected (NotDetected); Opiate Screen,Urine Not Detected (NotDetected); Oxycodone Screen, Urine Not Detected (NotDetected); Phencyclidine Screen,Urine Not Detected (NotDetected); Tricyclic Antidepressant,Urine Not Detected (NotDetected); Urn Cannabinoid Scrn Detected (NotDetected)
--- NOTE | 2022-06-10 12:02 | ED ---
Abdominal Pain HPI - General Source: patient, RN notes reviewed Mode of arrival: ambulatory Limitations: no limitations <Murali Justice - Last Filed: 06/10/22 12:01> <Jim Whitt - Last Filed: 06/10/22 18:02> - General Chief Complaint: Abdominal Pain Stated Complaint: Abd Pain/Lower Back pain Time Seen by Provider: 06/10/22 09:43 - History of Present Illness Initial Comments: 51-year-old female presents emergency Department with chief complaint abdominal pain. Patient states been having increased abdominal pain which is diffuse in the low back. Patient denies any prior surgeries other hysterectomy. She denies any dysuria hematuria no change in bowel habits. Patient has no chest pain or shortness of breath she states that nothing seems to be helping her pain at this time. Patient states she felt very depressed denies being suicidal. Patient is requesting Dr. psychiatric services. Patient denies fever or chills patient offers no complaints. (Murali Justice) - Related Data Home Medications Medication Instructions Recorded Confirmed Albuterol Sulfate [Ventolin HFA] 2 puff INHALATION RT-Q6H PRN 05/05/20 06/10/22 Aspirin EC [Ecotrin Low Dose] 81 mg PO DAILY 05/05/20 06/10/22 Atorvastatin [Lipitor] 80 mg PO HS 05/05/20 06/10/22 Furosemide [Lasix] 40 mg PO DAILY PRN 05/05/20 06/10/22 Ipratropium-Albuterol Nebulize 3 ml INHALATION RT-TID PRN 05/05/20 06/10/22 [Duoneb 0.5 mg-3 mg/3 ml Soln] Nitroglycerin Sl Tabs [Nitrostat] 0.4 mg SL Q5M PRN 05/05/20 06/10/22 Prasugrel [Effient] 10 mg PO DAILY 05/05/20 06/10/22 Cholecalciferol [Vitamin D3 (125 125 mcg PO DAILY 01/17/22 06/10/22 Mcg = 5000 Iu)] Losartan Potassium [Cozaar] 100 mg PO DAILY 01/17/22 06/10/22 Metoprolol Succinate [Toprol XL] 200 mg PO DAILY 01/17/22 06/10/22 Potassium Chloride [Potassium 20 meq PO DAILY PRN 01/17/22 06/10/22 Chloride ER] Docusate [Colace] 100 mg PO DAILY 01/19/22 06/10/22 Dulaglutide [Trulicity] 1.5 mg SQ FR 01/19/22 06/10/22 Isosorbide Mononitrate ER [Imdur] 15 mg PO DAILY 01/19/22 06/10/22 metFORMIN HCL [Glucophage] 1,000 mg PO BID 01/19/22 06/10/22 Previous Rx's Medication Instructions Recorded Ezetimibe [Zetia] 10 mg PO DAILY 90 Days #90 tab 03/30/22 amLODIPine [Norvasc] 5 mg PO DAILY #90 tab 03/30/22 Allergies Allergy/AdvReac Type Severity Reaction Status Date / Time peanut Allergy HIVES Verified 06/10/22 17:52 rice Allergy Rash/Hives Verified 06/10/22 17:52 seasonal Allergy Rash/Hives Uncoded 06/10/22 17:52 Review of Systems ROS Other: All systems not noted in ROS Statement are negative. <Murali Justice - Last Filed: 06/10/22 12:01> ROS Other: All systems not noted in ROS Statement are negative. <Jim Whitt - Last Filed: 06/10/22 18:02> ROS Statement: Those systems with pertinent positive or pertinent negative responses have been documented in the HPI. Past Medical History Past Medical History: Asthma, Diabetes Mellitus, Hyperlipidemia, Hypertension, Musculoskeletal Disorder, Thyroid Disorder Additional Past Medical History / Comment(s): Back Pain, right shoulder pain, Hx Pituitary Tumor, BENIGN. Thyroid disorder. History of Any Multi-Drug Resistant Organisms: None Reported Past Surgical History: Section, Heart Catheterization With Stent, Tubal Ligation Additional Past Surgical History / Comment(s): Pituitary Tumor Removed. colonoscopy Past Anesthesia/Blood Transfusion Reactions: No Reported Reaction Date of Last Stent Placement:: april 28 2020 Past Psychological History: Anxiety, Depression Smoking Status: Former smoker Past Alcohol Use History: None Reported Past Drug Use History: Marijuana - Past Family History Mother Family Medical History: Deep Vein Thrombosis (DVT) Additional Family Medical History / Comment(s): Mother is alive at age 67 with history of coronary artery disease and three-vessel CABG. Daughter(s) Family Medical History: Deep Vein Thrombosis (DVT) Additional Family Medical History / Comment(s): Patient has a total of 9 children with no major medical problems. Father Family Medical History: Cancer Additional Family Medical History / Comment(s): Father is alive with no history of coronary artery disease. History of Prostate Cancer Sister(s) Additional Family Medical History / Comment(s): The patient has 4 sisters and 1 brother. One sister had a myocardial infraction at age 40. <Murali Justice - Last Filed: 06/10/22 12:01> General Exam Limitations: no limitations General appearance: alert, in no apparent distress Head exam: Present: atraumatic, normocephalic, normal inspection Eye exam: Present: normal appearance, PERRL, EOMI. Absent: scleral icterus, con junctival injection, periorbital swelling ENT exam: Present: normal exam, normal oropharynx, mucous membranes moist Neck exam: Present: normal inspection, full ROM. Absent: tenderness, meningismus, lymphadenopathy Respiratory exam: Present: normal lung sounds bilaterally. Absent: respiratory distress, wheezes, rales, rhonchi, stridor Cardiovascular Exam: Present: regular rate, normal rhythm, normal heart sounds. Absent: systolic murmur, diastolic murmur, rubs, gallop, clicks GI/Abdominal exam: Present: soft, tenderness, normal bowel sounds. Absent: distended, guarding, rebound, rigid Back exam: Absent: CVA tenderness (R), CVA tenderness (L) Neurological exam: Present: alert Skin exam: Present: warm, dry, intact, normal color. Absent: rash <Murali Justice - Last Filed: 06/10/22 12:01> Course Vital Signs 06/10/22 06/10/22 09:33 13:00 Temperature 98.3 F Pulse Rate 60 70 Respiratory 20 20 Rate Blood Pressure 135/79 136/80 O2 Sat by Pulse 99 99 Oximetry Medical Decision Making - Lab Data Result diagrams: 06/10/22 10:08 06/10/22 10:08 <Murali Justice - Last Filed: 06/10/22 12:01> - Lab Data Result diagrams: 06/10/22 10:08 06/10/22 10:08 <Jim Whitt - Last Filed: 06/10/22 18:02> - Medical Decision Making Patient is a 51-year-old female who was signed out to me by the mid-level provider over concern for depression and abdominal pain. Patient was ready medically cleared. Abdominal workup was unremarkable. She is feeling improved. However she is complaining of depression want to speak with EPS voluntarily. Denies any suicidal ideations, homicidal ideations, visual or auditory hallucinations. Does have a history of depression. Has not followed up with anyone recently, and wanted to speak with someone. Depression seems to stem from her stress regarding her relationship with her ex-. She does have a safe place to be discharged home to his she is from him. I was notified by nursing staff that the patient no longer wishes to wait for EPS, as it will be multiple hours before they are available to evaluate any patient in the emergency department. I spoke with the patient length, and she is of sound mind. She denies any suicidal ideations, attempts, plans. Denies any homicidal ideations, attempts, plans. Denies any visual or auditory hallucinations. At This time I do not believe she is a danger to herself or others. His no other acute complaints at this time. She has followed up with [facility] in the past medical recommend she do so. I will provide her with contact information for [facility]. She can return to the emergency department at any time to be evaluated by psychiatry. I do not believe that she requires petitioning or being held for psych eval. She was in agreement with this plan. Patient was therefore discharged home in good condition. (Jim Whitt) - Lab Data Lab Results 06/10/22 06/10/22 06/10/22 Range/Units 10:08 10:08 10:08 WBC 8.5 (3.8-10.6) k/uL RBC 4.11 (3.80-5.40) m/uL Hgb 12.2 (11.4-16.0) gm/dL Hct 36.9 (34.0-46.0) % MCV 89.8 (80.0-100.0) fL MCH 29.6 (25.0-35.0) pg MCHC 33.0 (31.0-37.0) g/dL RDW 13.6 (11.5-15.5) % Plt Count 257 (150-450) k/uL MPV 7.4 Neutrophils % 60 % Lymphocytes % 32 % Monocytes % 3 % Eosinophils % 3 % Basophils % 0 % Neutrophils # 5.1 (1.3-7.7) k/uL Lymphocytes # 2.7 (1.0-4.8) k/uL Monocytes # 0.3 (0-1.0) k/uL Eosinophils # 0.2 (0-0.7) k/uL Basophils # 0.0 (0-0.2) k/uL Sodium 137 (137-145) mmol/L Potassium 4.5 (3.5-5.1) mmol/L Chloride 104 (98-107) mmol/L Carbon Dioxide 26 (22-30) mmol/L Anion Gap 7 mmol/L BUN 13 (7-17) mg/dL Creatinine 0.69 (0.52-1.04) mg/dL Est GFR (CKD-EPI)AfAm >90 (>60 ml/min/1.73 sqM) Est GFR (CKD-EPI)NonAf >90 (>60 ml/min/1.73 sqM) Glucose 124 H (74-99) mg/dL Plasma Lactic Acid Nick (0.7-2.0) mmol/L Calcium 8.9 (8.4-10.2) mg/dL Total Bilirubin 0.3 (0.2-1.3) mg/dL AST 19 (14-36) U/L ALT 13 (4-34) U/L Alkaline Phosphatase 121 (38-126) U/L Total Protein 6.7 (6.3-8.2) g/dL Albumin 3.7 (3.5-5.0) g/dL Amylase 76 (30-110) U/L Lipase 196 (23-300) U/L Urine Color Light Yellow Urine Appearance Clear (Clear) Urine pH 5.0 (5.0-8.0) Ur Specific [place] 1.007 (1.001-1.035) Urine Protein Negative (Negative) Urine Glucose (UA) Negative (Negative) Urine Ketones Negative (Negative) Urine Blood Negative (Negative) Urine Nitrite Negative (Negative) Urine Bilirubin Negative (Negative) Urine Urobilinogen <2.0 (<2.0) mg/dL Ur Leukocyte Esterase Negative (Negative) Urine Opiates Screen (NotDetected) Ur Oxycodone Screen (NotDetected) Urine Methadone Screen (NotDetected) Ur Propoxyphene Screen (NotDetected) Ur Barbiturates Screen (NotDetected) U Tricyclic Antidepress (NotDetected) Ur Phencyclidine Scrn (NotDetected) Ur Amphetamines Screen (NotDetected) U Methamphetamines Scrn (NotDetected) U Benzodiazepines Scrn (NotDetected) Urine Cocaine Screen (NotDetected) U Marijuana (THC) Screen (NotDetected) Serum Alcohol <10 mg/dL 06/10/22 06/10/22 Range/Units 10:08 10:51 WBC (3.8-10.6) k/uL RBC (3.80-5.40) m/uL Hgb (11.4-16.0) gm/dL Hct (34.0-46.0) % MCV (80.0-100.0) fL MCH (25.0-35.0) pg MCHC (31.0-37.0) g/dL RDW (11.5-15.5) % Plt Count (150-450) k/uL MPV Neutrophils % % Lymphocytes % % Monocytes % % Eosinophils % % Basophils % % Neutrophils # (1.3-7.7) k/uL Lymphocytes # (1.0-4.8) k/uL Monocytes # (0-1.0) k/uL Eosinophils # (0-0.7) k/uL Basophils # (0-0.2) k/uL Sodium (137-145) mmol/L Potassium (3.5-5.1) mmol/L Chloride (98-107) mmol/L Carbon Dioxide (22-30) mmol/L Anion Gap mmol/L BUN (7-17) mg/dL Creatinine (0.52-1.04) mg/dL Est GFR (CKD-EPI)AfAm (>60 ml/min/1.73 sqM) Est GFR (CKD-EPI)NonAf (>60 ml/min/1.73 sqM) Glucose (74-99) mg/dL Plasma Lactic Acid Nick 1.0 (0.7-2.0) mmol/L Calcium (8.4-10.2) mg/dL Total Bilirubin (0.2-1.3) mg/dL AST (14-36) U/L ALT (4-34) U/L Alkaline Phosphatase (38-126) U/L Total Protein (6.3-8.2) g/dL Albumin (3.5-5.0) g/dL Amylase (30-110) U/L Lipase (23-300) U/L Urine Color Urine Appearance (Clear) Urine pH (5.0-8.0) Ur Specific [place] (1.001-1.035) Urine Protein (Negative) Urine Glucose (UA) (Negative) Urine Ketones (Negative) Urine Blood (Negative) Urine Nitrite (Negative) Urine Bilirubin (Negative) Urine Urobilinogen (<2.0) mg/dL Ur Leukocyte Esterase (Negative) Urine Opiates Screen Not Detected (NotDetected) Ur Oxycodone Screen Not Detected (NotDetected) Urine Methadone Screen Not Detected (NotDetected) Ur Propoxyphene Screen Not Detected (NotDetected) Ur Barbiturates Screen Not Detected (NotDetected) U Tricyclic Antidepress Not Detected (NotDetected) Ur Phencyclidine Scrn Not Detected (NotDetected) Ur Amphetamines Screen Not Detected (NotDetected) U Methamphetamines Scrn Not Detected (NotDetected) U Benzodiazepines Scrn Not Detected (NotDetected) Urine Cocaine Screen Not Detected (NotDetected) U Marijuana (THC) Screen Detected H (NotDetected) Serum Alcohol mg/dL Disposition <Murali Justice - Last Filed: 06/10/22 12:01> Is patient prescribed a controlled substance at d/c from ED?: No Time of Disposition: 17:40 <Jim Whitt - Last Filed: 06/10/22 18:02> Clinical Impression: Abdominal pain of unknown etiology, Depression Disposition: HOME SELF-CARE Condition: Good Instructions (If sedation given, give patient instructions): Abdominal Pain (ED), Depression (ED) Additional Instructions: Follow up with [facility] for your depression. Referrals: [facility] [Primary Care Provider] - 1-2 days
--- NOTE | 2022-06-10 12:05 | CT ---
EXAMINATION TYPE: CT abdomen pelvis w con CT DLP: 1363.4 mGycm, Automated exposure control for dose reduction was used. DATE OF EXAM: 06/10/2022 11:55 AM COMPARISON: CT abdomen pelvis most recent from 01/19/2022 CLINICAL INDICATION:Female, 51 years old with history of abdominal pain; Abdominal pain/back pain TECHNIQUE: Axial CT of the abdomen and pelvis. Sagittal and coronal reformats were created on a [employer] workstation. Contrast used:100 mL of Isovue 300 with IV Contrast, Oral contrast used: without Oral Contrast FINDINGS: LOWER CHEST: The heart is mildly enlarged for size. ABDOMEN LIVER: Diffusely hypoattenuating parenchyma. GALLBLADDER AND BILE DUCTS: Unremarkable. PANCREAS: Unremarkable. SPLEEN: Unremarkable. ADRENAL GLANDS: Unremarkable. KIDNEYS AND URETERS: No evidence of hydronephrosis or renal calculus. The ureters are unremarkable. PELVIS BLADDER: Unremarkable REPRODUCTIVE: Heterogenous appearance with suspected underlying posterior fundal fibroid measuring up to 3.7 cm. ABDOMEN & PELVIS STOMACH AND BOWEL: No evidence of bowel obstruction. Appendix is normal. PERITONEUM: No evidence of pneumoperitoneum or free fluid. VASCULATURE: No evidence of aortic aneurysm. MUSCULOSKELETAL: No acute osseous abnormalities. There is multilevel disc degeneration changes most p ronounced at L4-L5 LYMPH NODES: No gross evidence for lymphadenopathy. SOFT TISSUE/ABDOMINAL WALL: Unremarkable IMPRESSION: 1. No evidence for acute abdominal process. 2. Moderate degeneration changes at L4-L5 secondary to facet joint arthropathy. 3. Hepatic steatosis. 4. Fibroid changes.
[2022-06-10 18:31] VITALS: BP 128/80; PULSE 65; RESP 18
== END 2022-06-10 18:29 | disposition home or self-care (01) ==
LOC: EC 09:31
DX: R10.9 Unspecified abdominal pain (principal); F32.A Depression, unspecified; J45.909 Unspecified asthma, uncomplicated; E11.9 Type 2 diabetes mellitus without complications; E78.5 Hyperlipidemia, unspecified; I10 Essential (primary) hypertension; E07.9 Disorder of thyroid, unspecified; F41.9 Anxiety disorder, unspecified; Z87.891 Personal history of nicotine dependence; F12.90 Cannabis use, unspecified, uncomplicated; Z91.010 Allergy to peanuts; Z91.018 Allergy to other foods; Z88.8 Allergy status to other drugs, medicaments and biological substances; Z79.51 Long term (current) use of inhaled steroids; Z79.82 Long term (current) use of aspirin; Z79.899 Other long term (current) drug therapy
CPT/HCPCS: 82075; 36415; 80053; 82150; 83605; 83690; 85025; 81003; 80306; 74177; 99284; 96374; 96375; G0480; J2405; J1170; Q9967; 80320

== ENCOUNTER 2022-07-22 23:28 | Emergency (ER) | payer OTHER ==
[2022-07-22] MEDS ORDERED: SODIUM CHLORIDE 0.9% 1,000 ML IV STA (23:48)
[2022-07-22] MEDS ORDERED: IPRATROPIUM-ALBUTEROL 3 ML NEB INHALATION STA (23:48)
[2022-07-22] MEDS ORDERED: ONDANSETRON 4 MG/2 ML VIAL IVP STA (23:49)
--- NOTE | 2022-07-22 23:54 | ED ---
General Adult HPI - General Chief complaint: Shortness of Breath Stated complaint: Shortness of Breath,Chest Pain Time Seen by Provider: 07/22/22 23:39 Source: patient, EMS, RN notes reviewed Mode of arrival: EMS Limitations: no limitations - History of Present Illness Initial comments: 51-year-old female presents to the emergency department via EMS with complaints of shortness of breath and diffuse chest tightness. Reports a history of asthma and COPD as well as multiple sick exposures from her grandchildren. Patient states she has had a sore throat, productive cough, and nasal drainage for the past several days. Complains of mild ongoing nausea as well. States her symptoms became worse this evening while at work in a warm environment. Did not take anything to treat her symptoms prior to arrival. Does have a nebulizer at home but did not use it. Denies fever, chills, headache, dizziness, abdominal pain, vomiting, diarrhea, dysuria, or lower extremity edema. - Related Data Home Medications Medication Instructions Recorded Confirmed Albuterol Sulfate [Ventolin HFA] 2 puff INHALATION RT-Q6H PRN 05/05/20 06/12/22 Aspirin EC [Ecotrin Low Dose] 81 mg PO DAILY 05/05/20 06/12/22 Atorvastatin [Lipitor] 80 mg PO HS 05/05/20 06/12/22 Furosemide [Lasix] 40 mg PO DAILY PRN 05/05/20 06/12/22 Ipratropium-Albuterol Nebulize 3 ml INHALATION RT-TID PRN 05/05/20 06/12/22 [Duoneb 0.5 mg-3 mg/3 ml Soln] Nitroglycerin Sl Tabs [Nitrostat] 0.4 mg SL Q5M PRN 05/05/20 06/12/22 Prasugrel [Effient] 10 mg PO DAILY 05/05/20 06/12/22 Cholecalciferol [Vitamin D3 (125 125 mcg PO DAILY 01/17/22 06/12/22 Mcg = 5000 Iu)] Losartan Potassium [Cozaar] 100 mg PO DAILY 01/17/22 06/12/22 Metoprolol Succinate [Toprol XL] 200 mg PO DAILY 01/17/22 06/12/22 Potassium Chloride [Potassium 20 meq PO DAILY PRN 01/17/22 06/12/22 Chloride ER] Docusate [Colace] 100 mg PO DAILY 01/19/22 06/12/22 Dulaglutide [Trulicity] 1.5 mg SQ FR 01/19/22 06/12/22 Isosorbide Mononitrate ER [Imdur] 15 mg PO DAILY 01/19/22 06/12/22 metFORMIN HCL [Glucophage] 1,000 mg PO BID 01/19/22 06/12/22 Previous Rx's Medication Instructions Recorded Ezetimibe [Zetia] 10 mg PO DAILY 90 Days #90 tab 03/30/22 amLODIPine [Norvasc] 5 mg PO DAILY #90 tab 03/30/22 Azithromycin [Zithromax] 250 mg PO DAILY 4 Days #4 tab 07/23/22 predniSONE 50 mg PO DAILY 4 Days #4 tab 07/23/22 Allergies Allergy/AdvReac Type Severity Reaction Status Date / Time peanut Allergy HIVES Verified 06/12/22 15:44 rice Allergy Rash/Hives Verified 06/12/22 15:44 seasonal Allergy Rash/Hives Uncoded 06/12/22 15:44 Review of Systems ROS Statement: Those systems with pertinent positive or pertinent negative responses have been documented in the HPI. ROS Other: All systems not noted in ROS Statement are negative. Past Medical History Past Medical History: Asthma, Diabetes Mellitus, Hyperlipidemia, Hypertension, Musculoskeletal Disorder, Thyroid Disorder Additional Past Medical History / Comment(s): Back Pain, right shoulder pain, Hx Pituitary Tumor, BENIGN. Thyroid disorder. 2 heart attacks March 2022, 2 stents placed. History of Any Multi-Drug Resistant Organisms: None Reported Past Surgical History: Section, Heart Catheterization With Stent, Tubal Ligation Additional Past Surgical History / Comment(s): Pituitary Tumor Removed. colonoscopy Past Anesthesia/Blood Transfusion Reactions: No Reported Reaction Date of Last Stent Placement:: april 28 2020 Past Psychological History: Anxiety, Depression Smoking Status: Former smoker Past Alcohol Use History: None Reported Past Drug Use History: Marijuana - Past Family History Mother Family Medical History: Deep Vein Thrombosis (DVT) Additional Family Medical History / Comment(s): Mother is alive at age 67 with history of coronary artery disease and three-vessel CABG. Daughter(s) Family Medical History: Deep Vein Thrombosis (DVT) Additional Family Medical History / Comment(s): Patient has a total of 9 children with no major medical problems. Father Family Medical History: Cancer Additional Family Medical History / Comment(s): Father is alive with no history of coronary artery disease. History of Prostate Cancer Sister(s) Additional Family Medical History / Comment(s): The patient has 4 sisters and 1 brother. One sister had a myocardial infraction at age 40. General Exam Limitations: no limitations (Well-developed, well-nourished female in no acute distress. Initial temperature 98.7, pulse 85, respirations 18, blood pressure 181/115, recheck 178/85, pulse ox 100% on room air.) General appearance: alert, in no apparent distress Eye exam: Present: normal appearance. Absent: scleral icterus, conjunctival injection ENT exam: Present: normal exam, normal oropharynx, mucous membranes moist, TM's normal bilaterally Neck exam: Present: normal inspection, full ROM. Absent: tenderness, meningismus, lymphadenopathy Respiratory exam: Present: normal lung sounds bilaterally, wheezes (scattered faint wheezes). Absent: respiratory distress, rales, rhonchi, stridor, chest wall tenderness Cardiovascular Exam: Present: regular rate, normal rhythm, normal heart sounds. Absent: systolic murmur, diastolic murmur, rubs, gallop, clicks GI/Abdominal exam: Present: soft, normal bowel sounds. Absent: distended, tenderness, guarding, rebound, rigid Neurological exam: Present: alert, oriented X3, CN II-XII intact Psychiatric exam: Present: anxious Skin exam: Present: warm, dry, intact, normal color. Absent: rash Course Vital Signs 07/22/22 07/22/22 07/22/22 23:31 23:35 23:57 Temperature 98.7 F Pulse Rate 85 91 Respiratory 18 18 Rate Blood Pressure 181/115 O2 Sat by Pulse 100 Oximetry 07/23/22 07/23/22 00:05 01:34 Temperature 98.4 F Pulse Rate 97 86 Respiratory 16 Rate Blood Pressure 154/81 O2 Sat by Pulse 100 Oximetry - Reevaluation(s) Reevaluation #1: 07/23/22 00:40 Patient is telling nursing staff that she does not want to be poked for an IV and is requesting Zofran be given orally. Did receive breathing treatment. Will reassess upon return from XRay. 07/23/22 01:15 Patient reports feeling improved after duo-neb. Vital signs are stable. Denies chest pain. Declines IV or blood work. I discussed concerns with foregoing laboratory studies, however patient is reasonable and feels that this is related to her asthma. Patient feels strongly that she knows her body well. Medical Decision Making - Medical Decision Making 51-year-old female with a past medical history of COPD and asthma presents to the emergency Department with complaints of shortness of breath. Upon exam, patient is well-appearing and in no acute distress. She does have episodes of shallow respirations and tachypnea associated with stress and anxiety. Lung sounds have faint scattered wheezing, though patient was given a DuoNeb while present in the emergency department with significant improvement. Chest x-ray was obtained and shows no acute findings. Laboratory studies were declined by patient. Oral medications of Zithromax, Zofran, and prednisone were given with improvement. Given patient's history of asthma and COPD along with her physical exam findings, patient will be started on Zithromax and prednisone. She is instructed to use her nebulizer at home regularly. Encouraged to follow up with her PCP for recheck this week. Strict return parameters were discussed in detail. Patient verbalizes understanding and agrees with this plan. Attending: Alejandro. - Lab Data Lab Results 07/23/22 07/23/22 Range/Units 01:05 01:05 Coronavirus (PCR) Not Detected (Not Detectd) Influenza Type A RNA Not Detected (Not Detectd) Influenza Type B (PCR) Not Detected (Not Detectd) - Radiology Data Radiology results: report reviewed, image reviewed Two-view chest x-ray was obtained. Report was reviewed in its entirety. Impression per Dr. España is normal chest. No change. Disposition Clinical Impression: Asthma exacerbation, Bronchitis Disposition: HOME SELF-CARE Condition: Stable Instructions (If sedation given, give patient instructions): Asthma (ED), Acute Bronchitis (ED) Additional Instructions: Continue taking your home medications as prescribed. Using nebulizer every 6 hours as needed for wheezing or shortness of breath. Take the antibiotic and steroid as prescribed. Follow-up with your PCP for a recheck on Sunday or Sunday. Return to the emergency department with any new, worsening, or concerning symptoms. Prescriptions: predniSONE 50 mg PO DAILY 4 Days #4 tab Azithromycin [Zithromax] 250 mg PO DAILY 4 Days #4 tab Is patient prescribed a controlled substance at d/c from ED?: No Referrals: [facility] [Primary Care Provider] - 1-2 days
[2022-07-23] MEDS ORDERED: ONDANSETRON ODT 4 MG TAB PO STA (00:40)
--- NOTE | 2022-07-23 00:46 | XR ---
EXAMINATION TYPE: XR chest 2V DATE OF EXAM: 07/23/2022 COMPARISON: 06/12/2022 HISTORY: Difficulty breathing TECHNIQUE: 2 views FINDINGS: Heart and mediastinum are normal. Lungs are clear. Diaphragm is normal. Bony thorax is inta ct. IMPRESSION: Normal chest. No change.
[2022-07-23] MEDS ORDERED: predniSONE 50 MG TAB PO STA (02:40)
[2022-07-23] MEDS ORDERED: AZITHROMYCIN 500 MG TAB PO STA (02:40)
[2022-07-23 03:00] VITALS: BP 154/81; PULSE 86; RESP 16; TEMP 98.4
== END 2022-07-23 03:12 | disposition home or self-care (01) ==
LOC: EC 23:28
DX: J45.901 Unspecified asthma with (acute) exacerbation (principal); E11.9 Type 2 diabetes mellitus without complications; I10 Essential (primary) hypertension; E78.5 Hyperlipidemia, unspecified; Z95.5 Presence of coronary angioplasty implant and graft; Z91.010 Allergy to peanuts; Z20.822 Contact with and (suspected) exposure to COVID-19; Z87.891 Personal history of nicotine dependence; Z91.018 Allergy to other foods; Z79.84 Long term (current) use of oral hypoglycemic drugs; Z79.82 Long term (current) use of aspirin
CPT/HCPCS: 94640; 87502; 87635; 71046; 99285; J7512

== ENCOUNTER 2022-09-28 17:35 | Emergency (ER) | payer OTHER ==
[2022-09-28 17:42] VITALS: TEMP 98.3
[2022-09-28] MEDS ORDERED: IBUPROFEN 400 MG TAB PO STA (18:21)
[2022-09-28] MEDS ORDERED: LIDOCAINE VISCOUS 2% 15 ML CUP MUCOUS MEM STA (18:22)
[2022-09-28] MEDS ORDERED: HYDROcodone/APAP 5-325MG 1 EACH TAB PO STA (18:22)
[2022-09-28] MEDS ORDERED: DEXAMETHASONE SOD PHOSPHATE 10 MG/ML 1 ML VIAL IM STA (18:23)
--- NOTE | 2022-09-28 20:01 | ED ---
ENT HPI - General Chief complaint: ENT Stated complaint: sorethroat Time Seen by Provider: 09/28/22 17:46 Source: EMS Mode of arrival: EMS Limitations: no limitations - History of Present Illness Initial comments: This patient is a 51-year-old woman who presents to have evaluation for burning sensation to her throat. The patient states that she started having symptoms yesterday. She had some congestion and cough. She went to another emergency department and was told that she was having. The patient states that she had worsening of the throat today. She has a little bit of cough. She has not had a change in her voice. She is able to swallow but there is some burning. MD complaint: sore throat Onset/Timin -: days(s) Quality: burning Consistency: constant Improves with: none Worsens with: swallowing Associated Symptoms: cough, sore throat, other (Myalgias) - Related Data Home Medications Medication Instructions Recorded Confirmed Albuterol Sulfate [Ventolin HFA] 2 puff INHALATION RT-Q6H PRN 05/05/20 06/12/22 Aspirin EC [Ecotrin Low Dose] 81 mg PO DAILY 05/05/20 06/12/22 Atorvastatin [Lipitor] 80 mg PO HS 05/05/20 06/12/22 Furosemide [Lasix] 40 mg PO DAILY PRN 05/05/20 06/12/22 Ipratropium-Albuterol Nebulize 3 ml INHALATION RT-TID PRN 05/05/20 06/12/22 [Duoneb 0.5 mg-3 mg/3 ml Soln] Nitroglycerin Sl Tabs [Nitrostat] 0.4 mg SL Q5M PRN 05/05/20 06/12/22 Prasugrel [Effient] 10 mg PO DAILY 05/05/20 06/12/22 Cholecalciferol [Vitamin D3 (125 125 mcg PO DAILY 01/17/22 06/12/22 Mcg = 5000 Iu)] Losartan Potassium [Cozaar] 100 mg PO DAILY 01/17/22 06/12/22 Metoprolol Succinate [Toprol XL] 200 mg PO DAILY 01/17/22 06/12/22 Potassium Chloride [Potassium 20 meq PO DAILY PRN 01/17/22 06/12/22 Chloride ER] Docusate [Colace] 100 mg PO DAILY 01/19/22 06/12/22 Dulaglutide [Trulicity] 1.5 mg SQ FR 01/19/22 06/12/22 Isosorbide Mononitrate ER [Imdur] 15 mg PO DAILY 01/19/22 06/12/22 metFORMIN HCL [Glucophage] 1,000 mg PO BID 01/19/22 06/12/22 Previous Rx's Medication Instructions Recorded Ezetimibe [Zetia] 10 mg PO DAILY 90 Days #90 tab 03/30/22 amLODIPine [Norvasc] 5 mg PO DAILY #90 tab 03/30/22 Azithromycin [Zithromax] 250 mg PO DAILY 4 Days #4 tab 07/23/22 predniSONE 50 mg PO DAILY 4 Days #4 tab 07/23/22 Lidocaine Viscous [Xylocaine 5 ml PO Q3HR PRN #100 ml 09/28/22 Viscous 2%] Allergies Allergy/AdvReac Type Severity Reaction Status Date / Time peanut Allergy HIVES Verified 06/12/22 15:44 rice Allergy Rash/Hives Verified 06/12/22 15:44 seasonal Allergy Rash/Hives Uncoded 06/12/22 15:44 Review of Systems ROS Statement: Those systems with pertinent positive or pertinent negative responses have been documented in the HPI. ROS Other: All systems not noted in ROS Statement are negative. Constitutional: Reports: fever. Denies: chills, weakness ENT: Reports: throat pain, congestion. Denies: ear pain Respiratory: Reports: cough. Denies: dyspnea, wheezes, hemoptysis, stridor Cardiovascular: Denies: chest pain, palpitations Gastrointestinal: Denies: abdominal pain, nausea, vomiting Genitourinary: Denies: dysuria, hematuria Musculoskeletal: Reports: myalgia Skin: Denies: rash Neurological: Denies: headache Past Medical History Past Medical History: Asthma, Diabetes Mellitus, Hyperlipidemia, Hypertension, Musculoskeletal Disorder, Thyroid Disorder Additional Past Medical History / Comment(s): Back Pain, right shoulder pain, Hx Pituitary Tumor, BENIGN. Thyroid disorder. 2 heart attacks March 2022, 2 stents placed. History of Any Multi-Drug Resistant Organisms: None Reported Past Surgical History: Section, Heart Catheterization With Stent, Tubal Ligation Additional Past Surgical History / Comment(s): Pituitary Tumor Removed. colonoscopy Past Anesthesia/Blood Transfusion Reactions: No Reported Reaction Date of Last Stent Placement:: april 28 2020 Past Psychological History: Anxiety, Depression Smoking Status: Former smoker Past Alcohol Use History: None Reported Past Drug Use History: Marijuana - Past Family History Mother Family Medical History: Deep Vein Thrombosis (DVT) Additional Family Medical History / Comment(s): Mother is alive at age 67 with history of coronary artery disease and three-vessel CABG. Daughter(s) Family Medical History: Deep Vein Thrombosis (DVT) Additional Family Medical History / Comment(s): Patient has a total of 9 children with no major medical problems. Father Family Medical History: Cancer Additional Family Medical History / Comment(s): Father is alive with no history of coronary artery disease. History of Prostate Cancer Sister(s) Additional Family Medical History / Comment(s): The patient has 4 sisters and 1 brother. One sister had a myocardial infraction at age 40. General Exam Limitations: no limitations General appearance: alert, in no apparent distress Head exam: Present: atraumatic, normocephalic Eye exam: Present: normal appearance. Absent: scleral icterus, conjunctival injection ENT exam: Present: other (There is injection of the pharynx. The uvula is without any edema and is midline.) Neck exam: Present: full ROM, lymphadenopathy, other (There is no stridor. Phonation is normal). Absent: tenderness, meningismus Respiratory exam: Present: normal lung sounds bilaterally. Absent: respiratory distress, wheezes, rales, rhonchi, stridor Cardiovascular Exam: Present: regular rate, normal rhythm, normal heart sounds. Absent: systolic murmur, diastolic murmur, rubs, gallop GI/Abdominal exam: Present: soft. Absent: distended, tenderness, guarding, rebound, rigid, mass Extremities exam: Present: normal inspection, normal capillary refill. Absent: pedal edema, calf tenderness Neurological exam: Present: alert Skin exam: Present: warm, dry, intact, normal color. Absent: rash Course Vital Signs 09/28/22 09/28/22 09/28/22 17:40 19:05 20:07 Temperature 98.3 F Pulse Rate 86 82 85 Respiratory 22 18 15 Rate Blood Pressure 196/106 223/109 181/92 O2 Sat by Pulse 97 91 L 97 Oximetry Medical Decision Making - Lab Data Lab Results 09/28/22 09/28/22 Range/Units 18:20 19:05 Influenza Type A (PCR) Detected A (Not Detectd) Influenza Type B (PCR) Not Detected (Not Detectd) RSV (PCR) Not Detected (Not Detectd) SARS-CoV-2 (PCR) Not Detected (Not Detectd) Group A Strep (PCR) NOT DETECTED (Not Detectd) Disposition Clinical Impression: Influenza A Disposition: HOME SELF-CARE Condition: Good Instructions (If sedation given, give patient instructions): Pharyngitis (ED), Influenza (DC) Prescriptions: Lidocaine Viscous [Xylocaine Viscous 2%] 5 ml PO Q3HR PRN #100 ml PRN Reason: Sore Throat Is patient prescribed a controlled substance at d/c from ED?: No Referrals: [facility] [Primary Care Provider] - 1-2 days Time of Disposition: 20:15
[2022-09-28 20:08] VITALS: BP 181/92; PULSE 85; RESP 15
== END 2022-09-28 20:53 | disposition home or self-care (01) ==
LOC: EC 17:35
DX: J10.1 Influenza due to other identified influenza virus with other respiratory manifestations (principal); I10 Essential (primary) hypertension; I25.2 Old myocardial infarction; E11.9 Type 2 diabetes mellitus without complications; F12.90 Cannabis use, unspecified, uncomplicated; F41.9 Anxiety disorder, unspecified; F32.A Depression, unspecified; E78.5 Hyperlipidemia, unspecified; J45.909 Unspecified asthma, uncomplicated; Z79.52 Long term (current) use of systemic steroids; Z87.891 Personal history of nicotine dependence; Z79.82 Long term (current) use of aspirin; Z79.84 Long term (current) use of oral hypoglycemic drugs; Z91.010 Allergy to peanuts; Z91.018 Allergy to other foods; Z79.2 Long term (current) use of antibiotics; Z20.822 Contact with and (suspected) exposure to COVID-19
CPT/HCPCS: 87651; 87636; 99284; 96372; J1100

== ENCOUNTER 2022-10-29 15:47 | Emergency (ER) | payer OTHER ==
[2022-10-29] MEDS ORDERED: NITROGLYCERIN OINT 1 INCH/GM PACKET TOPICAL STA (15:53)
[2022-10-29] MEDS ORDERED: KETOROLAC 15 MG/ML 1 ML VIAL IVP STA (15:54)
--- NOTE | 2022-10-29 16:02 | ED ---
Chest Pain HPI <Goldie Kendall - Last Filed: 10/29/22 17:37> - General Source: patient, EMS, RN notes reviewed Mode of arrival: EMS - History of Present Illness MD Complaint: chest pain <Butch Bonilla - Last Filed: 10/29/22 19:09> - General Stated Complaint: Chest Pain Time Seen by Provider: 10/29/22 15:47 - History of Present Illness Initial Comments: 50-year-old female history of cardiac disease with cardiac catheterization 2 stents who was doing well until after eating, shower earlier today started de veloping midsternal burning type chest pain or radiated to her back she also has some associated nausea. She states the pain was 10/10 severity she did take 2 of her own nitroglycerin as well as 324 mg of aspirin given by paramedics. She did have some relief in the pain is now about 8/10 severity but she states he gets worse with certain movements. No fevers chills she did have some nausea no sweats no cough or phlegm production. (Butch Bonilla) - Related Data Home Medications Medication Instructions Recorded Confirmed Albuterol Sulfate [Ventolin HFA] 2 puff INHALATION RT-Q6H PRN 05/05/20 06/12/22 Aspirin EC [Ecotrin Low Dose] 81 mg PO DAILY 05/05/20 06/12/22 Atorvastatin [Lipitor] 80 mg PO HS 05/05/20 06/12/22 Furosemide [Lasix] 40 mg PO DAILY PRN 05/05/20 06/12/22 Ipratropium-Albuterol Nebulize 3 ml INHALATION RT-TID PRN 05/05/20 06/12/22 [Duoneb 0.5 mg-3 mg/3 ml Soln] Nitroglycerin Sl Tabs [Nitrostat] 0.4 mg SL Q5M PRN 05/05/20 06/12/22 Prasugrel [Effient] 10 mg PO DAILY 05/05/20 06/12/22 Cholecalciferol [Vitamin D3 (125 125 mcg PO DAILY 01/17/22 06/12/22 Mcg = 5000 Iu)] Losartan Potassium [Cozaar] 100 mg PO DAILY 01/17/22 06/12/22 Metoprolol Succinate [Toprol XL] 200 mg PO DAILY 01/17/22 06/12/22 Potassium Chloride [Potassium 20 meq PO DAILY PRN 01/17/22 06/12/22 Chloride ER] Docusate [Colace] 100 mg PO DAILY 01/19/22 06/12/22 Dulaglutide [Trulicity] 1.5 mg SQ FR 01/19/22 06/12/22 Isosorbide Mononitrate ER [Imdur] 15 mg PO DAILY 01/19/22 06/12/22 metFORMIN HCL [Glucophage] 1,000 mg PO BID 01/19/22 06/12/22 Previous Rx's Medication Instructions Recorded Ezetimibe [Zetia] 10 mg PO DAILY 90 Days #90 tab 03/30/22 amLODIPine [Norvasc] 5 mg PO DAILY #90 tab 03/30/22 Azithromycin [Zithromax] 250 mg PO DAILY 4 Days #4 tab 07/23/22 predniSONE 50 mg PO DAILY 4 Days #4 tab 07/23/22 Lidocaine Viscous [Xylocaine 5 ml PO Q3HR PRN #100 ml 09/28/22 Viscous 2%] Allergies Allergy/AdvReac Type Severity Reaction Status Date / Time peanut Allergy HIVES Verified 10/29/22 16:02 rice Allergy Rash/Hives Verified 10/29/22 16:02 seasonal Allergy Rash/Hives Uncoded 06/12/22 15:44 Review of Systems ROS Other: All systems not noted in ROS Statement are negative. <Goldie Kendall - Last Filed: 10/29/22 17:37> ROS Other: All systems not noted in ROS Statement are negative. <Butch Bonilla - Last Filed: 10/29/22 19:09> ROS Statement: Those systems with pertinent positive or pertinent negative responses have been documented in the HPI. EKG Findings - EKG Results: EKG: interpreted by ERMD (EKG interpreted by al sinus rhythm 84 MN interval 146 QRS duration 98 daily since QTC 370/412 LVH poor R-wave progression this is apparently EKG dated 06/12/22 showing similar configuration a ) <Butch Bonilla - Last Filed: 10/29/22 19:09> Past Medical History Past Medical History: Asthma, Diabetes Mellitus, Hyperlipidemia, Hypertension, Musculoskeletal Disorder, Thyroid Disorder Additional Past Medical History / Comment(s): Back Pain, right shoulder pain, Hx Pituitary Tumor, BENIGN. Thyroid disorder. 2 heart attacks March 2022, 2 stents placed. History of Any Multi-Drug Resistant Organisms: None Reported Past Surgical History: Section, Heart Catheterization With Stent, Tubal Ligation Additional Past Surgical History / Comment(s): Pituitary Tumor Removed. colonoscopy Past Anesthesia/Blood Transfusion Reactions: No Reported Reaction Date of Last Stent Placement:: april 28 2020 Past Psychological History: Anxiety, Depression Smoking Status: Former smoker Past Alcohol Use History: None Reported Past Drug Use History: Marijuana - Past Family History Mother Family Medical History: Deep Vein Thrombosis (DVT) Additional Family Medical History / Comment(s): Mother is alive at age 67 with history of coronary artery disease and three-vessel CABG. Daughter(s) Family Medical History: Deep Vein Thrombosis (DVT) Additional Family Medical History / Comment(s): Patient has a total of 9 children with no major medical problems. Father Family Medical History: Cancer Additional Family Medical History / Comment(s): Father is alive with no history of coronary artery disease. History of Prostate Cancer Sister(s) Additional Family Medical History / Comment(s): The patient has 4 sisters and 1 brother. One sister had a myocardial infraction at age 40. <Butch Bonilla - Last Filed: 10/29/22 19:09> General Exam General appearance: alert, anxious Head exam: Present: atraumatic, normocephalic, normal inspection Eye exam: Present: normal appearance, PERRL, EOMI. Absent: scleral icterus, conjunctival injection, periorbital swelling ENT exam: Present: normal exam, mucous membranes moist Neck exam: Present: normal inspection. Absent: tenderness, meningismus, lymphadenopathy Respiratory exam: Present: normal lung sounds bilaterally, chest wall tenderness (Producible tenderness palpation over the costal sternal margin no step-off or crepitation over.). Absent: respiratory distress, wheezes, rales, rhonchi, stridor Cardiovascular Exam: Present: regular rate, normal rhythm, normal heart sounds. Absent: systolic murmur, diastolic murmur, rubs, gallop, clicks GI/Abdominal exam: Present: soft, normal bowel sounds. Absent: distended, tenderness, guarding, rebound, rigid Extremities exam: Present: normal inspection, full ROM, normal capillary refill. Absent: tenderness, pedal edema, joint swelling, calf tenderness Back exam: Present: normal inspection Neurological exam: Present: alert, oriented X3, CN II-XII intact Psychiatric exam: Present: normal affect, normal mood Skin exam: Present: warm, dry, intact, normal color. Absent: rash <Butch Bonilla - Last Filed: 10/29/22 19:09> - General Exam Comments Initial Comments: This is a well-developed well-nourished awake alert oriented 4 female (Butch Bonilla) Course Vital Signs 10/29/22 10/29/22 10/29/22 16:02 17:00 18:00 Temperature 98 F Pulse Rate 79 76 77 Respiratory 16 16 16 Rate Blood Pressure 198/100 165/80 162/78 O2 Sat by Pulse 100 99 98 Oximetry Procedures - EJ/Peripheral Line Bedside Indications: nurses unable to establish peripheral IV Skin Cleansed in Sterile Fashion: Yes Size: 18 Dressing Placed: Tegaderm Patient Tolerated Procedure: well, no complications <Goldie Kendall - Last Filed: 10/29/22 17:37> - EJ/Peripheral Line Bedside Additional Comments: Site without redness, edema, erythema Flushed with 10 cc's NS. (Goldie Kendall) Chest Pain MDM <Butch Bonilla - Last Filed: 10/29/22 19:09> - MDM Imaging interpreted by me shows no acute findings. Patient is feeling improved after the treatment rendered she does present with chest pain which she states is similar to her previous episodes of cardiac disease or is a reproducible component. Patient be admitted for further evaluation and treatment I did discuss the case with Dr. Burton Was pt. sent in by a medical professional or institution (, PA, BOX CUTTER, urgent care, hospital, or residential...) When possible be specific @ -No Did you speak to anyone other than the patient for history (EMS, parent, family, police, friend...)? What history was obtained from this source @ -No Did you review nursing and triage notes (agree or disagree)? Why? @ Yes agree-I reviewed and agree with nursing and triage notes Were old charts reviewed (outside hosp., previous admission, EMS record, old EKG, old radiological studies, urgent care reports/EKG's, residential records)? Report findings @ Yes AND EKGs -No old charts were reviewed Differential Diagnosis (chest pain, altered mental status, abdominal pain women, abdominal pain men, vaginal bleeding, weakness, fever, dyspnea, syncope, headache, dizziness, GI bleed, back pain, seizure, CVA, palpatations, mental health)? @Chest pain including cardiac disease chest wall pain atypical presentations see above yes-not applicable EKG interpreted by me (3pts min.). @ Yes-As above X-rays interpreted by me (1pt min.). @ Yes -None done CT interpreted by me (1pt min.). @ -None done U/S interpreted by me (1pt. min.). @ -None done What testing was considered but not performed or refused? (CT, X-rays, U/S, labs)? Why? @ -None What meds were considered but not given or refused? Why? @ -None Did you discuss the management of the patient with other professionals (professionals i.e. , PA, BOX CUTTER, lab, RT, psych nurse, social science research assistant, heat treatment technician, teacher, fire management officer, case mgr)? Give summary @ -No Was smoking cessation discussed for >3mins.? @ -No Was critical care preformed (if so, how long)? @ -No Were there social determinants of health that impacted care today? How? (Homelessness, low income, unemployed, alcoholism, drug addiction, transportation, low edu. Level, literacy, decrease access to med. care, shelter, rehab)? @ -No Was there de-escalation of care discussed even if they declined (Discuss DNR or withdrawal of care, Hospice)? DNR status @ -No What co-morbidities impacted this encounter? (DM, HTN, Smoking, COPD, CAD, Cancer, CVA, ARF, Chemo, Hep., AIDS, mental health diagnosis, sleep apnea, morbid obesity)? @ -None Was patient admitted / discharged? Hospital course, mention meds given and route, prescriptions, significant lab abnormalities, going to OR and other pertinent info. @ The patient was admitted for evaluation of chest pain-hospital course Undiagnosed new problem with uncertain prognosis? @ -No Drug Therapy requiring intensive monitoring for toxicity (Heparin, Nitro, Insulin, Cardizem)? @ -No Were any procedures done? @ -No Diagnosis/symptom? @ Chest pain, unstable angina, chest wall pain-default Acute, or Chronic, or Acute on Chronic? @ Acute on chronic-default Uncomplicated (without systemic symptoms) or Complicated (systemic symptoms)? @ -default Side effects of treatment? @ -No Exacerbation, Progression, or Severe Exacerbation? @ -No Poses a threat to life or bodily function? How? (Chest pain, USA, VT, pneumonia, PE, COPD, DKA, ARF, appy, cholecystitis, CVA, Diverticulitis, Homicidal, Suicidal, threat to staff... and all critical care pts) @ Potentially if not evaluated further and treated-No (Butch Bonilla) Disposition <Goldie Kendall - Last Filed: 10/29/22 17:37> Decision Date: 10/29/22 Decision Time: 18:30 <Butch Bonilla - Last Filed: 10/29/22 19:09> Clinical Impression: Chest pain, Unstable angina, Chest wall pain Disposition: ADMITTED IP TO THIS HOSP Condition: Fair Referrals: Gabriela Urban NPC [Nurse Practitioner] - 1-2 days
[2022-10-29 16:04] VITALS: RESP 16; TEMP 98
--- NOTE | 2022-10-29 16:20 | XR ---
EXAMINATION TYPE: XR chest 2V DATE OF EXAM: 10/29/2022 4:11 PM COMPARISON: Chest x-ray 07/23/2022 TECHNIQUE: XR chest 2V . CLINICAL INDICATION:Female, 51 years old with history of Chest Pain; FINDINGS: Lungs/Pleura: Low lung volumes are present. There is no evidence of pleural effusion, focal consolida tion, or pneumothorax. Linear subsegmental atelectasis in the left mid and right lower lobes. Pulmonary vascularity: Unremarkable. Heart/mediastinum: Cardiomediastinal silhouette is prominent in size, this may be attributed to shall ow inspiration. Musculoskeletal: No acute osseous pathology. IMPRESSION: Subsegmental atelectasis bilaterally without focal airspace consolidation.
[2022-10-29 16:49] LABS: Basophils % (A) 0 %; Eosinophils # (A) 0.3 k/uL (0-0.7); Eosinophils % (A) 3 %; HCT 32.9 % (34.0-46.0); HGB 11.2 gm/dL (11.4-16.0); Lymphocytes # (A) 1.7 k/uL (1.0-4.8); Lymphocytes % (A) 19 %; MCH 30.4 pg (25.0-35.0); MCHC 33.9 g/dL (31.0-37.0); MCV 89.7 fL (80.0-100.0); Mean Platelet Volume 8.3; Monocytes # (A) 0.4 k/uL (0-1.0); Monocytes % (A) 4 %; Neutrophils # (A) 6.4 k/uL (1.3-7.7); Neutrophils % (A) 72 %; Platelet Count 185 k/uL (150-450); RBC 3.67 m/uL (3.80-5.40); RDW 13.9 % (11.5-15.5); WBC 8.9 k/uL (3.8-10.6)
[2022-10-29 17:03] LABS: ALT 26 U/L (4-34); AST 21 U/L (14-36); African American GFR (CKD) >90 (>60 ml/min/1.73 sqM); Albumin 3.6 g/dL (3.5-5.0); Alkaline Phosphatase 110 U/L (38-126); Anion Gap 4 mmol/L; Blood Urea Nitrogen 10 mg/dL (7-17); Calcium 8.8 mg/dL (8.4-10.2); Carbon Dioxide 31 mmol/L (22-30); Chloride 105 mmol/L (98-107); Glucose 301 mg/dL (74-99); Lipase 210 U/L (23-300); Magnesium 1.7 mg/dL (1.6-2.3); Non-African American GFR(CKD) >90 (>60 ml/min/1.73 sqM); Sodium 140 mmol/L (137-145); Total Bilirubin 0.4 mg/dL (0.2-1.3); Total Protein 6.6 g/dL (6.3-8.2)
[2022-10-29 17:12] LABS: Potassium 4.1 mmol/L (3.5-5.1)
[2022-10-29 18:01] LABS: INR 0.9 (<1.2); Partial Thromboplastin Time 24.1 sec (22.0-30.0); Prothrombin Time 9.9 sec (9.0-12.0)
[2022-10-29 19:10] VITALS: BP 169/96; PULSE 78
[2022-10-29] MEDS ORDERED: NITROGLYCERIN SL TABS 0.4 MG TAB SUBLINGUAL PRN (19:10)
[2022-10-29] MEDS ORDERED: FUROSEMIDE 40 MG TAB PO PRN (19:12)
[2022-10-29] MEDS ORDERED: POTASSIUM CHLORIDE ER 20 MEQ TAB.ER PO PRN (19:12)
[2022-10-29] MEDS ORDERED: LIDOCAINE VISCOUS 2% 15 ML CUP MUCOUS MEM PRN (19:12)
[2022-10-29] MEDS ORDERED: ALBUTEROL NEBULIZED 2.5 MG/3 ML INHALATION PRN (19:12)
[2022-10-29] MEDS ORDERED: IPRATROPIUM-ALBUTEROL 3 ML NEB INHALATION PRN (19:12)
[2022-10-29] MEDS ORDERED: SODIUM CHLORIDE 0.9% 1,000 ML IV SCH (19:15)
[2022-10-29] MEDS ORDERED: ATORVASTATIN 80 MG TAB PO SCH (21:00)
[2022-10-30] MEDS ORDERED: metFORMIN 500 MG TAB PO SCH (07:30)
[2022-10-30] MEDS ORDERED: predniSONE 50 MG TAB PO SCH (09:00)
[2022-10-30] MEDS ORDERED: DOCUSATE 100 MG CAP PO SCH (09:00)
[2022-10-30] MEDS ORDERED: PRASUGREL 10 MG TAB PO SCH (09:00)
[2022-10-30] MEDS ORDERED: CHOLECALCIFEROL 125 MCG (5000 IU) TABLET PO SCH (09:00)
[2022-10-30] MEDS ORDERED: ASPIRIN 325 MG TAB PO SCH (09:00)
[2022-10-30] MEDS ORDERED: amLODIPine 5 MG TAB PO SCH (09:00)
[2022-10-30] MEDS ORDERED: METOPROLOL SUCCINATE (ER) 100 MG TAB.ER.24H PO SCH (09:00)
[2022-10-30] MEDS ORDERED: EZETIMIBE 10 MG TAB PO SCH (09:00)
[2022-10-30] MEDS ORDERED: ISOSORBIDE MONONITRATE ER 15 MG TAB PO SCH (09:00)
[2022-10-30] MEDS ORDERED: LOSARTAN 50 MG TAB PO SCH (09:00)
[2022-11-03] MEDS ORDERED: NON FORMULARY DRUG (Dulaglutide [Trulicity] 1.5 MG/0.5 ML Each) SQ SCH (09:00)
== END 2022-10-29 19:56 | disposition left against medical advice (07) ==
LOC: EC 15:47 → UNDOADMOB 19:10 → 6NMEDSUR 19:10 → EC 19:56
DX: R07.89 Other chest pain (principal); I20.0 Unstable angina; J45.909 Unspecified asthma, uncomplicated; E11.9 Type 2 diabetes mellitus without complications; E78.5 Hyperlipidemia, unspecified; I10 Essential (primary) hypertension; F41.9 Anxiety disorder, unspecified; F32.A Depression, unspecified; Z87.891 Personal history of nicotine dependence; F12.90 Cannabis use, unspecified, uncomplicated; Z91.010 Allergy to peanuts; Z91.018 Allergy to other foods; Z88.8 Allergy status to other drugs, medicaments and biological substances; Z79.82 Long term (current) use of aspirin; Z79.84 Long term (current) use of oral hypoglycemic drugs; Z79.899 Other long term (current) drug therapy; Z53.29 Procedure and treatment not carried out because of patient's decision for other reasons
CPT/HCPCS: 36415; 93005; 83880; 80053; 83690; 83735; 84484; 85025; 85610; 85730; 71046; 99285; 96360; J1885

== ENCOUNTER → 2022-11-09 | Outpatient (CLI) | payer OTHER ==
[2022-11-09 14:08] VITALS: BP 190/95; PULSE 63; RESP 18; TEMP 98.3
--- NOTE | 2022-11-09 14:56 | P.PAINPG ---
PQRS Measure Charge Sheet Comment: A 51 yr old female with a history of severe and chronic neck pain secondary to cervical DDD and spondylosis with facet arthropathy without myelopathy presents today for evaluation s/p R shoulder pain. Pain level is provoked at 7 /10 in intensity, constant, localized in the cervical spine, tingly, sharp in character w shooting towards the R shoulder. Pain is provoked by any lifting. Pain is alleviated with PT but couldn't start due to covid, THC products, use of a C collar, laying on her L side, topicals, repositioning and rest. Interventional pain procedures completed include Denies Patient is currently on topicals, THC products Patient denies any side effects of the medication(s), denies excessive drowsiness or sleepiness, denies suicidal ideation and reports that the current pain medication is helping to control the pain and improve activities of daily living. Patient denies any motor or sensory deficits. Patient denies any fever or night sweats, denies any change in the bowel movements or urination. Physical Examination: -Constitutional: Cooperative. Not in acute distress . - Neurologic: Cranial nerve II to XII intact. No focal neurological deficits. - Psychatric: Alert & oriented x 3. Matching mood & appropriate affect. Judgment and insight intact. - Musculoskeletal: Cervical spine: Muscle bulk/ tone/ strength in the bilateral upper extremities normal Vertebral body tenderness to palpation over C6 Spurling test positive Distraction test positive Facet loading test positive Thoracic spine Muscle bulk / tone/ strength in the bilateral paraspinal muscles normal Vertebral body tender to palpation over Facet loading test positive Lumbar spine: Motor bulk/ tone/ strength lower extremities , thigh and legs : 5/5 Deep tendon reflexes : Normal Knee Jerk. Normal Ankle Jerk . Vertebral body tenderness to palpation over Lumbar Facet Loading Test positive Straight Leg Raise: positive at 30 degrees right side/ left side Gaenslen's Test positive Sacral spine : Severe tenderness over the Sacroiliac joint: right side / left side Range of motion: Flexion of the lumbar spine <60 degrees Range of motion: Extension of the lumbar spine <20 degrees Gaenslen's Test positive Mauro test: positive right side / left side Thigh Thrust Test Sacral Thrust Test Imaging: MRI without contrast of the cervical spine from 12/15/21 reviewed Assessment and plan: Chronic neck pain secondary to cervical DDD, spondylosis with facet arthropathy without myelopathy Recommendation of ABRAHAM C6-C7 #1. May need a series of injections, up to 3 within a six-month timeframe, for optimal pain relief. Risks, benefits of procedure discussed and pt verbalized understanding. Denies anticoagulant use or medical history of diabetes. All patient questions answered I have spent less than 30 minutes on patient care today. Dr Mulligan was available by phone for the evaluation of this patient. The time was used to review the medical records including relevant urine studies and Prescription history (MAPs), review of the available imaging, evaluation and examination of the patient, coordination of care with the medical staff and if applicable referring physicians, as well as creation of the medical record - Pain Location Neck Non-Pharmacological Interventions: Inactivity, Position/Reposition Pharmacological Interventions: Topical Medication PQRS Narrative: Smoking Status Never smoker Hx Alcohol Use (MH) No Home Medications: Ambulatory Orders Albuterol Sulfate [Ventolin HFA] 2 puff INHALATION RT-Q6H PRN 05/05/20 Aspirin EC [Ecotrin Low Dose] 81 mg PO DAILY 05/05/20 Atorvastatin [Lipitor] 80 mg PO HS 05/05/20 Furosemide [Lasix] 40 mg PO DAILY PRN 05/05/20 Ipratropium-Albuterol Nebulize [Duoneb 0.5 mg-3 mg/3 ml Soln] 3 ml INHALATION RT-TID PRN 05/05/20 Nitroglycerin Sl Tabs [Nitrostat] 0.4 mg SL Q5M PRN 05/05/20 Prasugrel [Effient] 10 mg PO DAILY 05/05/20 Cholecalciferol [Vitamin D3 (125 Mcg = 5000 Iu)] 125 mcg PO DAILY 01/17/22 Losartan Potassium [Cozaar] 100 mg PO DAILY 01/17/22 Metoprolol Succinate [Toprol XL] 200 mg PO DAILY 01/17/22 Potassium Chloride [Potassium Chloride ER] 20 meq PO DAILY PRN 01/17/22 Docusate [Colace] 100 mg PO DAILY 01/19/22 Dulaglutide [Trulicity] 1.5 mg SQ FR 01/19/22 Isosorbide Mononitrate ER [Imdur] 15 mg PO DAILY 01/19/22 metFORMIN HCL [Glucophage] 1,000 mg PO BID 01/19/22 Ezetimibe [Zetia] 10 mg PO DAILY 90 Days #90 tab 03/30/22 amLODIPine [Norvasc] 5 mg PO DAILY #90 tab 03/30/22 Azithromycin [Zithromax] 250 mg PO DAILY 4 Days #4 tab 07/23/22 predniSONE 50 mg PO DAILY 4 Days #4 tab 07/23/22 Lidocaine Viscous [Xylocaine Viscous 2%] 5 ml PO Q3HR PRN #100 ml 09/28/22 Controlled Substance Measures - Controlled Substance Measures Is patient prescribed a controlled substance at discharge?: No
== END ==
LOC: PNWHC3 10:34
PROVIDERS: ATTEND Specialist
DX: M47.812 Spondylosis without myelopathy or radiculopathy, cervical region (principal); M50.30 Other cervical disc degeneration, unspecified cervical region; G89.29 Other chronic pain; Z79.82 Long term (current) use of aspirin; Z91.048 Other nonmedicinal substance allergy status; Z91.018 Allergy to other foods
CPT/HCPCS: 99211

== ENCOUNTER 2023-01-02 07:30 | Day surgery (SDC) | payer OTHER ==
[2022-12-11 08:45] VITALS: BMI 40.0
[~2023-01-02 07:30] MED LIST: LACTATED RINGERS 1,000 ML IV SCH; LIDOCAINE 1% (10MG/ML) FOR IV START INTRADERMA PRN
[2023-01-02 08:27] VITALS: TEMP 97.6
[2023-01-02] MEDS ORDERED: DEXAMETHASONE SOD PHOSPHATE 10 MG/ML 1 ML VIAL ONE (08:48)
[2023-01-02] MEDS ORDERED: IOPAMIDOL M200 10 ML VIAL ONE (08:48)
[2023-01-02] MEDS ORDERED: fentaNYL (PF) 50 MCG/ML 2 ML AMP ONE (08:48)
[2023-01-02] MEDS ORDERED: MIDAZOLAM 2 MG/2 ML VIAL ONE (08:48)
--- NOTE | 2023-01-02 08:58 | P.PCN ---
Date of Procedure: 01/02/23 Procedure(s) Performed: . PROCEDURE 1. Cervical epidural steroid injection under fluoroscopic guidance, C6-7 (fluoroscopy images available in the radiology department ) 2. Cervical epidurogram. PREOPERATIVE DIAGNOSIS: 1- Cervical Degenerative Disc Diseases 2- Cervical radiculopathy., 3-cervical spondylosis with cervical Facet arthropathy without myelopathy. POSTOPERATIVE DIAGNOSIS: : 1- Cervical Degenerative Disc Diseases , 2- Cervical radiculopathy. 3-,cervical spondylosis with cervical Facet arthropathy without myelopathy. ANESTHESIA: moderate sedation, with Versed 2 mg and Fentanyl 100 mcg. Sedation start time :0850 Sedation end time :0856 EBL 0 PROCEDURE INDICATION: The patient with neck pain and radiculitis unresponsive to conservative treatment consents for procedure. PROCEDURE DESCRIPTION / TECHNIQUE: The patient was seen and identified in the preoperative area. Risks, benefits, complications, including but not limited to infections ,bleeding , allergic reactions to the medications ,and not complete pain releife, and alternatives were discussed with the patient, the patient agreed to proceed with the procedure and signed the consent. Patient was taken to the OR and time out was completed. The patient was placed in the prone position on the procedure table. A pillow was placed under the patients chest to increase the cervical interlaminar space. The cervical area was prepped and draped in the usual sterile fashion. Vital signs were closely monitored during the procedure. Conscious sedation was used during the procedure to decrease patients anxiety. Using anterior-posterior fluoroscopy, the C6-7 interlaminar space was identified and the skin over this site was marked and then infiltrated with 1% lidocaine subcutaneously. Subsequently, a 20-gauge 3-1/2-inch Tuohy epidural needle was inserted and advanced toward the epidural space by means of the ``hanging-drop technique and guided by AP and lateral fluoroscopy. The correct needle position in the epidural space was verified with the injection of 2 mL of the water soluble contrast dye Isovue-200 and observing an excellent epidurogram with the epidural spread of the dye, after negative aspiration for blood and CSF and in the absence of paresthesias. then, mixture containing 10 mg Dexamethasone and 2 ml of preservative-free normal saline injected and a washout of epidurogram was seen. Needle was withdrawn intact, skin was cleansed, and bandages were applied. Complications= none. Disposition= patient was placed in supine position and transferred to the recovery room area in stable condition and there was no evidence of upper or lower extremity motor or sensory deficit after the procedure patient was discharged from recovery room after discharge criteria met and home discharge instructions was given by the staff and patient will follow with the pain clinic in 2-4 weeks
[2023-01-02] MEDS ORDERED: LACTATED RINGERS 1,000 ML IV ONE (09:00)
[2023-01-02 09:10] VITALS: RESP 16
[2023-01-02 09:20] VITALS: BP 156/82; PULSE 69
--- NOTE | 2023-01-02 09:23 | FL ---
Intraoperative/procedural fluoroscopic services were provided for cervical epidural steroid injection . Total fluoroscopy time is 2 seconds with a total of 1 submitted image to PACS. Total DAP [id number]. P toño see the operative note for further details.
== END 2023-01-02 09:50 | disposition home or self-care (01) ==
LOC: ORPAIN 07:30
PROVIDERS: ATTEND Specialist
DX: M50.123 Cervical disc disorder at C6-C7 level with radiculopathy (principal); M47.22 Other spondylosis with radiculopathy, cervical region; Z91.010 Allergy to peanuts; Z91.018 Allergy to other foods
CPT/HCPCS: 81025; 62321; J2250; J1100; J3010; Q9966

== ENCOUNTER → 2023-02-09 | Outpatient (CLI) | payer OTHER ==
[2023-02-09 21:39] LABS: Gliadin AB IgA, Deaminated NEGATIVE (NEGATIVE); Gliadin AB IgA, Unit 1.3 U/mL; Gliadin AB IgG, Deaminated NEGATIVE (NEGATIVE); Gliadin AB IgG, Unit 1.4 U/mL
== END | disposition home or self-care (01) ==
LOC: LABWHC1 13:02
PROVIDERS: ATTEND Nurse Practitioner Family
DX: K58.1 Irritable bowel syndrome with constipation (principal)
CPT/HCPCS: 36415; 83516; 85652; 86140

== ENCOUNTER → 2023-04-13 | Outpatient (CLI) | payer OTHER ==
[2023-04-13 21:36] LABS: ALT 24 U/L (8-44); AST 18 U/L (13-35); Albumin 4.2 d/dL (3.8-4.9); Albumin/Globulin Ratio 1.56 Ratio (1.60-3.17); Alkaline Phosphatase 149 U/L (41-126); BUN/Creat Ratio 12.86 Ratio (12.00-20.00); Calcium 9.9 mg/dL (8.7-10.3); Chloride 107 mmol/L (96-109); Chol/HDL Ratio 3.68 Ratio; Globulin 2.7 d/dL (1.6-3.3); Glucose 184 mg/dL (70-110); LDL Cholesterol,Calculated 111.2 mg/dL (0.0-131.0); Magnesium 1.7 mg/dL (1.5-2.4); Potassium 4.2 mmol/L (3.5-5.5); Sodium 143 mmol/L (135-145); T4, Free (Free Thyroxine) 2.09 ng/dL (0.80-1.80); Total Bilirubin 0.3 mg/dL (0.3-1.2); Total Protein 6.9 d/dL (6.2-8.2); VLDL Calculation 13.98 mg/dL (5.00-40.00)
[2023-04-13 21:38] LABS: Basophils # (A) 0.01 X 10*3/uL (0.00-0.10); Basophils % (A) 0.1 %; Eosinophils # (A) 0.19 X 10*3/uL (0.04-0.35); Eosinophils % (A) 2.1 %; HCT 39.7 % (37.2-46.3); HGB 12.8 d/dL (12.0-15.0); Lymphocytes # (A) 3.63 X 10*3/uL (0.90-5.00); Lymphocytes % (A) 39.4 %; MCH 29.2 pg (27.0-32.0); MCHC 32.2 d/dL (32.0-37.0); MCV 90.4 FL (80.0-97.0); Mean Platelet Volume 11.2 FL (9.5-12.2); Monocytes # (A) 0.48 X 10*3/uL (0.20-1.00); Monocytes % (A) 5.2 %; NRBC Per 100 WBC 0 X 10*3/uL (0.00-0.01); Neutrophils # (A) 4.87 X 10*3/uL (1.80-7.70); Neutrophils % (A) 52.9 %; Platelet Count 248 X 10*3/uL (140-440); RBC 4.39 X 10*6/uL (4.10-5.20); RDW 13.2 % (11.5-14.5); WBC 9.21 X 10*3/uL (4.50-10.00)
== END | disposition home or self-care (01) ==
LOC: LABWHC1 10:59
PROVIDERS: ATTEND Nurse Practitioner
DX: I10 Essential (primary) hypertension (principal); E11.9 Type 2 diabetes mellitus without complications; E53.9 Vitamin B deficiency, unspecified; E55.9 Vitamin D deficiency, unspecified
CPT/HCPCS: 36415; 80053; 80061; 82306; 82607; 83036; 83735; 84439; 84443; 85025

== ENCOUNTER 2023-04-16 21:35 | Observation (INO) | payer OTHER ==
[2023-04-16] MEDS ORDERED: MORPHINE SULFATE 4 MG/ML SYRINGE IVP STA (21:56)
[2023-04-16] MEDS ORDERED: LABETALOL 5 MG/ML VIAL MDV IVP STA (21:56)
[2023-04-16] MEDS ORDERED: ONDANSETRON 4 MG/2 ML VIAL IVP STA (21:56)
[2023-04-16] MEDS ORDERED: SODIUM CHLORIDE 0.9% 1,000 ML IV STA (21:59)
[2023-04-16 22:16] LABS: Basophils % (A) 0 %; Eosinophils # (A) 0.3 k/uL (0-0.7); Eosinophils % (A) 4 %; HCT 38.7 % (34.0-46.0); Lymphocytes # (A) 2.7 k/uL (1.0-4.8); Lymphocytes % (A) 33 %; MCH 30.2 pg (25.0-35.0); MCHC 33.5 g/dL (31.0-37.0); MCV 90.1 fL (80.0-100.0); Monocytes # (A) 0.4 k/uL (0-1.0); Monocytes % (A) 4 %; Neutrophils # (A) 4.8 k/uL (1.3-7.7); Neutrophils % (A) 58 %; Platelet Count 221 k/uL (150-450); RDW 13.6 % (11.5-15.5); WBC 8.3 k/uL (3.8-10.6)
[2023-04-16 22:36] LABS: ALT 24 U/L (4-34); AST 24 U/L (14-36); African American GFR (CKD) >90 (>60 ml/min/1.73 sqM); Albumin 3.9 g/dL (3.5-5.0); Alkaline Phosphatase 121 U/L (38-126); Anion Gap 7 mmol/L; Blood Urea Nitrogen 8 mg/dL (7-17); Calcium 9.2 mg/dL (8.4-10.2); Carbon Dioxide 28 mmol/L (22-30); Chloride 105 mmol/L (98-107); Glucose 275 mg/dL (74-99); Lipase 187 U/L (23-300); Magnesium 1.7 mg/dL (1.6-2.3); Non-African American GFR(CKD) >90 (>60 ml/min/1.73 sqM); Potassium 4.4 mmol/L (3.5-5.1); Sodium 140 mmol/L (137-145); Total Bilirubin 0.4 mg/dL (0.2-1.3); Total Protein 6.9 g/dL (6.3-8.2)
[2023-04-16 22:38] LABS: INR 0.9 (<1.2); Prothrombin Time 9.6 sec (9.0-12.0)
--- NOTE | 2023-04-16 22:41 | ED ---
Chest Pain HPI - General Chief Complaint: Chest Pain Stated Complaint: Chest Pain Time Seen by Provider: 04/16/23 21:38 Source: EMS, RN notes reviewed, old records reviewed Mode of arrival: EMS Limitations: no limitations - History of Present Illness Initial Comments: This is a 52-year-old female to the ER today. This patient presents today for evaluation regarding chest pain severe chest pain anterior chest. Severe increase in stress and anxiety. Patient states she's been taking all medications as directed but has history of heart disease and high blood pressure. No fevers no travel history no sick contacts no other significant surgeries complaint MD Complaint: chest pain -: days(s) Onset: during rest, during exertion Pain Location: substernal, left chest Pain Radiation: none, LUE Severity: moderate Severity scale (1-10): 4 Quality: tightness, aching, heaviness Consistency: constant Improves With: nothing Worsens With: nothing Anginal Symptoms: diaphoresis, dyspnea Other Symptoms: palpitations - Related Data Home Medications Medication Instructions Recorded Confirmed Aspirin EC [Ecotrin Low Dose] 81 mg PO DAILY 05/05/20 04/16/23 Atorvastatin [Lipitor] 80 mg PO HS 05/05/20 04/16/23 Ipratropium-Albuterol Nebulize 3 ml INHALATION RT-TID PRN 05/05/20 04/16/23 [Duoneb 0.5 mg-3 mg/3 ml Soln] Nitroglycerin Sl Tabs [Nitrostat] 0.4 mg SL Q5M PRN 05/05/20 04/16/23 Prasugrel [Effient] 10 mg PO DAILY 05/05/20 04/16/23 Cholecalciferol [Vitamin D3 (125 125 mcg PO DAILY 01/17/22 04/16/23 Mcg = 5000 Iu)] Losartan Potassium [Cozaar] 100 mg PO DAILY 01/17/22 04/16/23 Metoprolol Succinate [Toprol XL] 200 mg PO DAILY 01/17/22 04/16/23 Isosorbide Mononitrate ER [Imdur] 15 mg PO DAILY 01/19/22 04/16/23 metFORMIN HCL [Glucophage] 1,000 mg PO BID 01/19/22 04/16/23 Previous Rx's Medication Instructions Recorded Ezetimibe [Zetia] 10 mg PO DAILY 90 Days #90 tab 03/30/22 Allergies Allergy/AdvReac Type Severity Reaction Status Date / Time peanut Allergy HIVES Verified 04/16/23 22:40 rice Allergy Rash/Hives Verified 04/16/23 22:40 seasonal Allergy Rash/Hives Uncoded 04/16/23 22:40 Review of Systems ROS Statement: Those systems with pertinent positive or pertinent negative responses have been documented in the HPI. ROS Other: All systems not noted in ROS Statement are negative. Past Medical History Past Medical History: Asthma, COPD, Diabetes Mellitus, Hyperlipidemia, Hypertension, Myocardial Infarction ([place]), Musculoskeletal Disorder, Thyroid Disorder Additional Past Medical History / Comment(s): Back Pain, right shoulder pain, Hx Pituitary Tumor, BENIGN. Thyroid disorder. 3 heart attacks March 2022, 2 stents placed. left ear infection recently treated Last Myocardial Infarction Date:: 10/29/22 History of Any Multi-Drug Resistant Organisms: None Reported Past Surgical History: Section, Heart Catheterization With Stent, Tubal Ligation Additional Past Surgical History / Comment(s): Pituitary Tumor Removed. colonoscopy, PAIN CLINIC PROCEDURES Past Anesthesia/Blood Transfusion Reactions: No Reported Reaction Date of Last Stent Placement:: april 28 2020 Past Psychological History: Anxiety, Depression Smoking Status: Former smoker Past Alcohol Use History: None Reported Past Drug Use History: Marijuana - Past Family History Mother Family Medical History: Deep Vein Thrombosis (DVT) Additional Family Medical History / Comment(s): Mother is alive at age 67 with history of coronary artery disease and three-vessel CABG. Daughter(s) Family Medical History: Deep Vein Thrombosis (DVT) Additional Family Medical History / Comment(s): Patient has a total of 9 children with no major medical problems. Father Family Medical History: Cancer Additional Family Medical History / Comment(s): Father is alive with no history of coronary artery disease. History of Prostate Cancer Sister(s) Additional Family Medical History / Comment(s): The patient has 4 sisters and 1 brother. One sister had a myocardial infraction at age 40. General Exam Limitations: no limitations General appearance: alert, in no apparent distress, anxious Head exam: Present: atraumatic, normocephalic, normal inspection Eye exam: Present: normal appearance, PERRL, EOMI. Absent: scleral icterus, conjunctival injection, periorbital swelling ENT exam: Present: normal exam, mucous membranes moist Neck exam: Present: normal inspection. Absent: tenderness, meningismus, lymphadenopathy Respiratory exam: Present: normal lung sounds bilaterally. Absent: respiratory distress, wheezes, rales, rhonchi, stridor Cardiovascular Exam: Present: regular rate, normal rhythm, normal heart sounds. Absent: systolic murmur, diastolic murmur, rubs, gallop, clicks GI/Abdominal exam: Present: soft, normal bowel sounds. Absent: distended, tenderness, guarding, rebound, rigid Extremities exam: Present: normal inspection, full ROM, normal capillary refill. Absent: tenderness, pedal edema, joint swelling, calf tenderness Back exam: Present: normal inspection Neurological exam: Present: alert, oriented X3, CN II-XII intact Psychiatric exam: Present: normal affect, normal mood Skin exam: Present: warm, dry, intact, normal color. Absent: rash Course Vital Signs 04/16/23 04/16/23 04/17/23 21:36 22:46 00:00 Temperature 97.6 F Pulse Rate 85 82 75 Pulse Rate [ Left Pulse Oximetery] Respiratory 26 H 16 16 Rate Blood Pressure 213/93 176/95 193/89 Blood Pressure [Left Arm] O2 Sat by Pulse 93 L 96 94 L Oximetry Fraction of Inspired Oxygen (FIO2) 04/17/23 04/17/23 04/17/23 00:46 03:07 05:36 Temperature Pulse Rate 72 69 Pulse Rate [ Left Pulse Oximetery] Respiratory 18 20 Rate Blood Pressure 151/77 154/88 190/100 Blood Pressure [Left Arm] O2 Sat by Pulse 96 95 Oximetry Fraction of Inspired Oxygen (FIO2) 04/17/23 04/17/23 04/17/23 07:24 12:00 12:52 Temperature 97.8 F 98.7 F Pulse Rate Pulse Rate [ 67 57 L Left Pulse Oximetery] Respiratory 16 16 Rate Blood Pressure Blood Pressure 210/106 [Left Arm] O2 Sat by Pulse 96 95 96 Oximetry Fraction of 21 Inspired Oxygen (FIO2) 04/17/23 04/17/23 14:16 14:30 Temperature Pulse Rate 70 59 L Pulse Rate [ Left Pulse Oximetery] Respiratory 16 Rate Blood Pressure 208/121 120/106 Blood Pressure [Left Arm] O2 Sat by Pulse 95 95 Oximetry Fraction of Inspired Oxygen (FIO2) - Reevaluation(s) Reevaluation #1: 04/16/23 22:40 medical record is reviewed Reevaluation #2: 04/16/23 22:40 patient Still has chest pain here in the ER blood pressure is improving Reevaluation #3: 04/17/23 01:04 patient informed of results and questions answered Reevaluation #4: 04/16/23 22:41 Was pt. sent in by a medical professional or institution? @ -no Did you speak to anyone other than the patient for history? @ -no Did you review nursing and triage notes? @ -agree Were old charts reviewed? @ -no Differential Diagnosis? @ -prior EKG interpreted by me (3pts min.)? @ -yes X-rays interpreted by me (1pt min.)? @ -no CT interpreted by me (1pt min.)? @ -no U/S interpreted by me (1pt. min.)? @ -no What testing was considered but not performed? (CT, X-rays, U/S, labs)? Why? @ -no What meds were considered but not given? Why? @ -no Did you discuss the management of the patient with other professionals? @ -no Did you reconcile home meds? @ -no Was smoking cessation discussed for >3mins.? @ -no Was critical care preformed (if so, how long)? @ -no Were there social determinants of health that impacted care today? How? (Homelessness, low income, unemployed, alcoholism, drug addiction, transportation, low edu. Level, literacy, decrease access to med. care, care home, rehab)? @ -no Was there de-escalation of care discussed even if they declined? (Discuss DNR or withdrawal of care, Hospice)? @ -no What co-morbidities impacted this encounter? (DM, HTN, Smoking, COPD, CAD, Cancer, CVA, Hep., AIDS, mental health diagnosis, sleep apnea, morbid obesity)? @ -none Was patient admitted / discharged? @ -52 female to the emergency department for evaluation of chest pain and hypertension. Patient will be admitted for hypertensive emergency with chest pain, blood pressure control,cardiology to evaluate and see Admitted Undiagnosed new problem with uncertain prognosis? @ -no Drug Therapy requiring intensive monitoring for toxicity (Heparin, Nitro, Insulin, Cardizem)? @ -no Were any procedures done? @ -no Diagnosis/symptom? @ -Chest pain Acute, or Chronic, or Acute on Chronic? @ -no Uncomplicated (without systemic symptoms) or Complicated (systemic symptoms)? @ -uncomplicated Side effects of treatment? @ -no Exacerbation, Progression, or Severe Exacerbation] @ -no Poses a threat to life or bodily function? @ -Yes chest pain and ACS Reevaluation #5: 04/16/23 22:41 Differential Chest Pain: Stable Angina, Unstable Angina, STEMI, NSTEMI Aortic Dissection, Pneumothorax, Musculoskeletal, Esophageal Spasm GERD, Cholecystitis, Pancreatitis, Zoster, this is not meant to be an all-inclusive list. - Consultations Consultation #1: spoke with admitting physicians who agree to admit this patient Chest Pain MDM - MDM 52 female to the emergency department for evaluation of chest pain and hypertension. Patient will be admitted for hypertensive emergency with chest pain, blood pressure control,cardiology to evaluate and see Disposition Clinical Impression: Chest pain, Hypertensive emergency Disposition: ADMITTED IP TO THIS HOSP Condition: Serious Is patient prescribed a controlled substance at d/c from ED?: No Time of Disposition: 00:30
[2023-04-16 22:57] LABS: Partial Thromboplastin Time 20.5 sec (22.0-30.0)
[2023-04-16] MEDS ORDERED: HYDROmorphone 1 MG/ML 1 ML SYRINGE IVP STA (23:28)
--- NOTE | 2023-04-16 23:32 | CT ---
EXAMINATION TYPE: CT angio chest DATE OF EXAM: 04/16/2023 COMPARISON: September 25, 2012 HISTORY: substernal chest pain CT DLP: 741.7 mGycm CONTRAST: CT chest with contrast and 3D reconstruction with MIP imaging is performed with IV Contrast, patient injected with 100 mL of Isovue 370. Contrast-enhanced CT of the chest was performed through the course of the pulmonary arteries with javi g and mediastinal window settings submitted. 3D reconstruction with MIP imaging was also performed. PULMONARY ARTERIES: The pulmonary arteries and their major tributaries are patent. I do not see iris dence for sizable filling defect to suggest pulmonary embolic process. LUNGS: Lingular atelectasis or developing infiltrate small in size. Additional areas of linear atelec tasis at the lung bases. No pulmonary nodule or mass is detected. No pleural effusion. MEDIASTINUM: Thoracic aorta is of normal caliber,however, evaluation is limited given timing of the contrast bolus. If there is concern for thoracic aortic pathology consider SALEEM. Correlate clinicall y . The heart is not enlarged. No evidence for mediastinal mass. No mediastinal lymph nodes greater than 1cm. HILAR STRUCTURES: No evidence for mass. No hilar lymph nodes greater than 1 cm. UPPER ABDOMEN: No significant abnormality is seen. IMPRESSION: 1. No evidence for Pulmonary embolism at this time. 2.Lingular atelectasis or developing infiltrate small in size. Additional areas of linear atelectasis at the lung bases.
--- NOTE | 2023-04-16 23:33 | XR ---
EXAMINATION TYPE: XR chest 1V portable DATE OF EXAM: 04/16/2023 HISTORY: Shortness of breath. COMPARISON: 10/29/2022 TECHNIQUE: Single view of the chest is submitted. FINDINGS: Demonstrated are scattered senescent parenchymal change. Lingular atelectasis or infiltrate. Additional atelectasis right lower lobe. The heart is stable. Hilar and mediastinal structures are within normal limits. Degenerative changes are seen of the dorsal spine. IMPRESSION: 1. Lingular atelectasis or infiltrate. Additional atelectasis right lower lobe.
[2023-04-17] MEDS ORDERED: LABETALOL 5 MG/ML VIAL MDV IVP STA ×2 (00:25→00:35)
[2023-04-17] MEDS ORDERED: NALOXONE 0.4 MG/ML 1 ML VIAL IV PRN (01:04)
[2023-04-17] MEDS: SODIUM CHLORIDE 0.9% 1,000 ML IV SCH (01:26)
[2023-04-17] MEDS ORDERED: metFORMIN 500 MG TAB PO STA (05:46)
[2023-04-17] MEDS ORDERED: NITROGLYCERIN SL TABS 0.4 MG TAB SUBLINGUAL PRN (07:51)
[2023-04-17] MEDS ORDERED: DEXTROSE 50% SYRINGE 50 ML IVP PRN ×2 (07:52)
--- NOTE | 2023-04-17 08:16 | P.HPIM ---
History of Present Illness This is a pleasant 52 years old -[place] female with multiple medical problems including Asthma, COPD, Diabetes Mellitus, Hyperlipidemia, Hypertension, hypothyroidism, Back Pain, right shoulder pain, Hx Pituitary Tumor, BENIGN. Thyroid disorder. 3 heart attacks March 2022, 2 stents placed. Patient presents because of chest pain 1 week duration, she states that her pain is in the middle of the chest radiating to the back, about 10/10 in severity. Like sharp and dull, associated with some dyspnea, she has to stop to catch up her breath. She took some nitroglycerin which helped lower her chest pain. 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 Ojeda and she has history of 3 stents before. She has some cough and clear phlegm. However patient denies smoking alcohol. She uses marijuana. She is also complaining of from chronic abdominal pain for about 2-3 years, she had colonoscopy before Also complaining of from chronic headache and neck pain also 4 years for example more than 2 years, she follows up with the pain clinic and she had steroid injection before. He is complaining also from chronic constipation ask for stool softeners Vital signs stable and patient is afebrile Labs show an unremarkable CBC, INR, BMP, liver enzymes. Sent to our less than 0.012. ProBNP 310. D-dimer elevated at 0.76. CTA of the chest showing no pulmonary embolism and lingular atelectasis or developing infiltrates small in size. EKG showing normal sinus rhythm at [address]-T changes. In the emergency room patient received labetalol IV several doses as well as normal saline and morphine. Review of Systems Review of systems CONSTITUTIONAL: No fever, no malaise, no fatigue. HEENT: No recent visual problems or hearing problems. Denied any sore throat. CARDIOVASCULAR: No orthopnea, PND, no palpitations, no syncope. PULMONARY: No shortness of breath, no cough, no hemoptysis. GASTROINTESTINAL: No diarrhea, no nausea, no vomiting, . Normoactive bowel soun ds. NEUROLOGICAL: no weakness, no numbness. HEMATOLOGICAL: Denies any bleeding or petechiae. GENITOURINARY: Denies any burning micturition, frequency, or urgency. MUSCULOSKELETAL/RHEUMATOLOGICAL: Denies any joint pain, swelling, or any muscle pain. ENDOCRINE: Denies any polyuria or polydipsia. Past Medical History Past Medical History: Asthma, COPD, Diabetes Mellitus, Hyperlipidemia, Hypertension, Myocardial Infarction (AR), Musculoskeletal Disorder, Thyroid Disorder Additional Past Medical History / Comment(s): Back Pain, right shoulder pain, Hx Pituitary Tumor, BENIGN. Thyroid disorder. 3 heart attacks March 2022, 2 stents placed. left ear infection recently treated Last Myocardial Infarction Date:: 10/29/22 History of Any Multi-Drug Resistant Organisms: None Reported Past Surgical History: Section, Heart Catheterization With Stent, Tubal Ligation Additional Past Surgical History / Comment(s): Pituitary Tumor Removed. colonoscopy, PAIN CLINIC PROCEDURES Past Anesthesia/Blood Transfusion Reactions: No Reported Reaction Date of Last Stent Placement:: april 28 2020 Past Psychological History: Anxiety, Depression Smoking Status: Former smoker Past Alcohol Use History: None Reported Past Drug Use History: Marijuana - Past Family History Mother Family Medical History: Deep Vein Thrombosis (DVT) Additional Family Medical History / Comment(s): Mother is alive at age 67 with history of coronary artery disease and three-vessel CABG. Daughter(s) Family Medical History: Deep Vein Thrombosis (DVT) Additional Family Medical History / Comment(s): Patient has a total of 9 children with no major medical problems. Father Family Medical History: Cancer Additional Family Medical History / Comment(s): Father is alive with no history of coronary artery disease. History of Prostate Cancer Sister(s) Additional Family Medical History / Comment(s): The patient has 4 sisters and 1 brother. One sister had a myocardial infraction at age 40. Medications and Allergies Home Medications Medication Instructions Recorded Confirmed Type Aspirin EC [Ecotrin Low Dose] 81 mg PO DAILY 05/05/20 04/16/23 History Atorvastatin [Lipitor] 80 mg PO HS 05/05/20 04/16/23 History Ipratropium-Albuterol Nebulize 3 ml INHALATION RT-TID PRN 05/05/20 04/16/23 History [Duoneb 0.5 mg-3 mg/3 ml Soln] Nitroglycerin Sl Tabs [Nitrostat] 0.4 mg SL Q5M PRN 05/05/20 04/16/23 History Prasugrel [Effient] 10 mg PO DAILY 05/05/20 04/16/23 History Cholecalciferol [Vitamin D3 (125 125 mcg PO DAILY 01/17/22 04/16/23 History Mcg = 5000 Iu)] Losartan Potassium [Cozaar] 100 mg PO DAILY 01/17/22 04/16/23 History Metoprolol Succinate [Toprol XL] 200 mg PO DAILY 01/17/22 04/16/23 History Isosorbide Mononitrate ER [Imdur] 15 mg PO DAILY 01/19/22 04/16/23 History metFORMIN HCL [Glucophage] 1,000 mg PO BID 01/19/22 04/16/23 History Ezetimibe [Zetia] 10 mg PO DAILY 90 Days #90 tab 03/30/22 04/16/23 Rx Allergies Allergy/AdvReac Type Severity Reaction Status Date / Time peanut Allergy HIVES Verified 04/16/23 22:40 rice Allergy Rash/Hives Verified 04/16/23 22:40 seasonal Allergy Rash/Hives Uncoded 04/16/23 22:40 Physical Exam Vitals: Vital Signs Temp Pulse Pulse Resp BP Pulse Ox 04/17/23 07:24 97.8 F 67 16 96 04/17/23 05:36 69 20 190/100 95 04/17/23 03:07 72 18 154/88 96 04/17/23 00:46 151/77 04/17/23 00:00 75 16 193/89 94 L 04/16/23 22:46 82 16 176/95 96 04/16/23 21:36 97.6 F 85 26 H 213/93 93 L Intake and Output 04/16/23 04/17/23 04/17/23 22:59 06:59 14:59 Other: Weight 86.636 kg -GENERAL: The patient is alert and oriented x3, not in any acute distress. Well developed, well nourished. Obese HEENT: Pupils are round and equally reacting to light. EOMI. No scleral icterus. No conjunctival pallor. Normocephalic, atraumatic. No pharyngeal erythema. No thyromegaly. CARDIOVASCULAR: S1 and S2 present. No murmurs, rubs, or gallops. PULMONARY: Chest is clear to auscultation, no wheezing , no crackles. ABDOMEN: Soft, nontender, nondistended, normoactive bowel sounds. No palpable organomegaly. MUSCULOSKELETAL: No joint swelling or deformity. EXTREMITIES: No cyanosis, clubbing, or pedal edema. NEUROLOGICAL: Gross neurological examination did not reveal any focal deficits. SKIN: No rashes. no petechiae. Results CBC & Chem 7: 04/16/23 22:07 04/16/23 22:07 Labs: Abnormal Lab Results - Last 24 Hours (Table) 04/16/23 04/16/23 Range/Units 22:07 22:07 APTT 20.5 L (22.0-30.0) sec D-Dimer 0.76 H (<0.60) mg/L FEU Glucose 275 H (74-99) mg/dL Assessment and Plan Assessment: Chest pain, rule out cardiac causes Hypertension, uncontrolled on admission History of coronary artery disease status post stenting Diabetes mellitus Hyperlipidemia History of osteoarthritis Hypothyroidism Obesity with BMI of 38.6 Plan: Continue with aspirin and effient Cardiology consult continue with antihypertensive medication losartan, metoprolol close monitoring of blood pressure. We will add hydralazine Labs and medication were reviewed.. Continue same treatment. Continue with symptomatic treatment. Resume home medication. Monitor labs and vitals. DVT and GI prophylaxis. Further recommendations as per clinical course of the patient DVT prophylaxis: Subcutaneous heparin GI Prophylaxis: Pepcid PT/OT: Pending Prognosis is guarded
[2023-04-17] MEDS ORDERED: hydrALAZINE HCL 25 MG TAB PO SCH (09:00)
[2023-04-17] MEDS ORDERED: ISOSORBIDE MONONITRATE ER 15 MG TAB PO SCH (09:00)
[2023-04-17] MEDS ORDERED: PRASUGREL 10 MG TAB PO SCH (09:00)
[2023-04-17] MEDS ORDERED: hydrALAZINE HCL 50 MG TAB PO SCH (09:00)
[2023-04-17] MEDS: CHOLECALCIFEROL 125 MCG (5000 IU) TABLET PO SCH (09:10)
[2023-04-17] MEDS: metFORMIN 500 MG TAB PO SCH ×2 (09:10→17:08)
[2023-04-17] MEDS: NITROGLYCERIN OINT 1 INCH/GM PACKET TOPICAL SCH ×3 (09:11→23:22)
[2023-04-17] MEDS: FAMOTIDINE 20 MG/2 ML VIAL IV SCH ×2 (09:11→20:39)
[2023-04-17] MEDS: HEPARIN SODIUM,PORCINE/PF 5,000 UNIT/0.5 ML SYRINGE SQ SCH ×2 (09:11→20:40)
[2023-04-17] MEDS: METOPROLOL SUCCINATE (ER) 100 MG TAB.ER.24H PO SCH (09:11)
[2023-04-17] MEDS: EZETIMIBE 10 MG TAB PO SCH (09:11)
[2023-04-17] MEDS: LOSARTAN 50 MG TAB PO SCH (09:11)
[2023-04-17] MEDS: HYDROmorphone 1 MG/ML 1 ML SYRINGE IVP PRN ×2 (09:12→11:11)
[2023-04-17] MEDS: hydrALAZINE HCL 50 MG TAB PO SCH ×3 (09:17→20:44)
[2023-04-17] MEDS: SENNOSIDES-DOCUSATE SODIUM 1 EACH TAB PO SCH ×2 (09:22→20:40)
--- NOTE | 2023-04-17 09:44 | CONS ---
CONSULTATION CHIEF COMPLAINT: Chest discomfort and poorly controlled hypertension. HISTORY OF PRESENT ILLNESS: Eleazar is a 52-year-old lady with history of coronary artery disease, status post prior angioplasty of the LAD and circumflex coronary artery, severe hypertension, who presents to hospital complaining of chest discomfort and shortness of breath with activity. She states that she become short of breath on climbing 13 stairs at work and has developed chest discomfort over the last several days. It is sharp, mild intensity, pericardial without definite radiation to neck, arm, or back, and at the time of my evaluation, this morning, she is chest pain free. The patient had an EKG that did not reveal ischemic changes and has had cardiac enzymes that are within normal limits. The patient has known CAD and had stenting of the mid LAD in 2019, and subsequently came into hospital with chest pain and elevated troponins, and underwent cardiac catheterization and angioplasty of circ, OM in March 2022. The patient is somewhat noncompliant with therapy and does not take her medications regularly. She works nights at [employer] and states that she takes medications when she is able to take medications. The patient was admitted to hospital in May 2022, and underwent a dobutamine stress echo that did not reveal any ischemia. At the time of my evaluation, the patient's blood pressure is elevated at 190/130. It is unclear if the patient had received her medications since she came in. She is to receive her Toprol and losartan this morning. I will put an inch of nitroglycerin paste on her, and she is also on hydralazine 50 b.i.d., which I will increase to 50 t.i.d. PAST MEDICAL HISTORY: Significant for, 1. Coronary artery disease, status post multivessel angioplasty. 2. COPD. 3. Diabetes. 4. Dyslipidemia. MEDICATIONS: Medications at home included: 1. Zetia. 2. Glucophage. 3. Effient. 4. Toprol. 5. Cozaar. 6. Imdur. 7. Lipitor. 8. Aspirin. 9. DuoNeb. ALLERGIES: There are no known drug allergies. FAMILY HISTORY: Negative for premature coronary artery disease. SOCIAL HISTORY: Negative for smoking, EtOH abuse, or drug abuse. REVIEW OF SYSTEMS: HEENT: Unremarkable. CARDIAC: As described above. RESPIRATORY: As described above. GI: Negative. GENITOURINARY: Negative. ALLERGY/IMMUNOLOGY: Negative. SKIN: Negative. MUSCULOSKELETAL: Negative. ENDOCRINE: Negative. DERM: Negative. CONSTITUTIONAL: Negative. Rest of the system reviewed is not relevant. PHYSICAL EXAMINATION: GENERAL: She appears comfortable at rest. VITAL SIGNS: Afebrile. Heart rate is 67 beats per minute. Blood pressure is 190/130, O2 saturation of 96% on room air, respiratory rate 16. NECK: There is no jugular venous distention. Carotid upstroke is normal. There is no bruit. CHEST: Reveals good air entry bilaterally. HEART: Reveals first and second heart sounds. No gallop. No murmur. No rub. ABDOMEN: Soft, nontender. EXTREMITIES: Did not reveal any edema. Peripheral pulses are felt. LABORATORY DATA: Labs show that the hemoglobin is 13, platelet count is 221. Potassium is 4.4, creatinine 0.6. Troponins are negative. BNP is normal at 310. Albumin is 3.9. D- dimer is slightly elevated at 0.7. ASSESSMENT: 1. Severe uncontrolled hypertension. 2. Atypical chest pain. 3. Myocardial infarction ruled out. 4. Elevated D-dimer without any evidence of pulmonary embolism and a CT scan of the chest. PLAN: I will obtain a 2D echo, control the blood pressures optimally coronary interventions last year, we should stop the Effient at this time. Her blood pressures are well controlled, tomorrow consider a dobutamine stress echo prior to discharge. MMGARRETTL / KOFIN: [id number] /
[2023-04-17] MEDS: ONDANSETRON 4 MG/2 ML VIAL IVP PRN (12:08)
[2023-04-17] MEDS: IPRATROPIUM-ALBUTEROL 3 ML NEB INHALATION PRN (12:48)
[2023-04-17] MEDS: INSULIN ASPART (NovoLOG) 100 UNIT/ML VIAL SQ SCH ×3 (13:09→20:40)
--- NOTE | 2023-04-17 13:36 | CA ---
Transthoracic Echo Report Name: Eleazar Balbuena Age: 52 Gender: F : 1970 Exam Date: 04/17/2023 10:06 Exam Location: [facility] Ht (in): 59 Wt (lb): 191 Ordering Physician: Chinedu Grijalva MD ([id number]) Attending/Referring Phys: Rudi HOYOS Cro Stella Hyde RDCS Procedure CPT: Indications: Chest Pain Cardiac Hx: Technical Quality: Fair Contrast 1: Total Dose (mL): Contrast 2: Total Dose (mL): MEASUREMENTS (Male / Female) Normal Values 2D ECHO LV Diastolic Diameter PLAX 3.4 cm 4.2 - 5.9 / 3.9 - 5.3 cm LV Systolic Diameter PLAX 1.9 cm IVS Diastolic Thickness 1.6 cm 0.6 - 1.0 / 0.6 - 0.9 cm LVPW Diastolic Thickness 1.3 cm 0.6 - 1.0 / 0.6 - 0.9 cm LV Relative Wall Thickness 0.8 RV Internal Dim ED PLAX 2.9 cm LA Volume 49.7 cm??? 18 - 58 / 22 - 52 cm??? M-MODE Aortic Root Diameter MM 2.7 cm LA Systolic Diameter MM 3.7 cm LA Ao Ratio MM 1.4 AV Cusp Separation MM 1.7 cm DOPPLER AV Peak Velocity 197.0 cm/s AV Peak Gradient 15.5 mmHg AV Mean Velocity 138.1 cm/s AV Mean Gradient 8.3 mmHg AV Velocity Time Integral 46.2 cm LVOT Peak Velocity 106.8 cm/s LVOT Peak Gradient 4.6 mmHg LVOT Velocity Time Integral 30.2 cm MV Area PHT 4.2 cm??? Mitral E Point Velocity 100.6 cm/s Mitral A Point Velocity 85.8 cm/s Mitral E to A Ratio 1.2 MV Deceleration Time 178.6 ms MV E' Velocity 7.4 cm/s Mitral E to MV E' Ratio 13.6 TR Peak Velocity 288.7 cm/s TR Peak Gradient 33.3 mmHg Right Ventricular Systolic Press 37.0 mmHg FINDINGS Left Ventricle Moderately increased left ventricular wall thickness. Normal left ventricular systolic function with no obvious regional wall motion abnormalities. Left ventricular ejection fraction is estimated at 55-60 %. Right Ventricle Normal right ventricular size and function. Mild pulmonary hypertension. Right Atrium Normal right atrial size. Left Atrium Normal left atrial size. Mitral Valve Structurally normal mitral valve. Mild mitral regurgitation. Aortic Valve No aortic valve stenosis or regurgitation. Tricuspid Valve Structurally normal tricuspid valve. Mild tricuspid regurgitation. Pulmonic Valve Structurally normal pulmonic valve. Mild pulmonic regurgitation. Pericardium No pericardial effusion. Aorta Normal size aortic root and proximal ascending aorta. CONCLUSIONS Normal LV size and systolic function with moderate concentric LVH. Mild mitral and tricuspid regurgitation. No pulmonary hypertension no pericardial effusion Previewed by: Dr. Will Ojeda MD (Electronically Signed) Final Date: 17 April 2023 13:35
[2023-04-17] MEDS ORDERED: diphenhydrAMINE 25 MG CAP PO PRN (14:26)
[2023-04-17] MEDS ORDERED: hydrALAZINE HCL 50 MG TAB PO STA (14:27)
[2023-04-17] MEDS ORDERED: FUROSEMIDE 10 MG/ML 2 ML VIAL IV ONE (15:15)
--- NOTE | 2023-04-17 15:54 | XR ---
EXAMINATION TYPE: XR KUB DATE OF EXAM: 04/17/2023 3:15 PM INDICATION: Patient age:Female; 52 years old; Reason for study: abdominal pain; COMPARISON: None. TECHNIQUE: One radiographic view of the abdomen was obtained. FINDINGS: The bowel gas pattern is nonspecific without dilated loops of small or large bowel. There i s no evidence for organomegaly or pneumoperitoneum. The osseous structures are intact. No abnormal calcifications are present. Fecal material and gas are demonstrated throughout the colon and rectum. IMPRESSION: Nonspecific bowel gas pattern without radiographic evidence for acute process.
[2023-04-17] MEDS: ATORVASTATIN 80 MG TAB PO SCH (20:40)
[2023-04-17] MEDS: Acetaminophen-Codeine 300-30mg TAB PO PRN (20:44)
[2023-04-18] MEDS: SODIUM CHLORIDE 0.9% 1,000 ML IV SCH (04:59)
[2023-04-18] MEDS ORDERED: DOBUTamine DRIP for NUC MED 500 MG in DEXTROSE/WATER 1 250ML.BAG IV PRN (06:00)
[2023-04-18] MEDS: HEPARIN SODIUM,PORCINE/PF 5,000 UNIT/0.5 ML SYRINGE SQ SCH ×2 (06:28→22:30)
[2023-04-18] MEDS: SENNOSIDES-DOCUSATE SODIUM 1 EACH TAB PO SCH ×2 (06:29→22:29)
[2023-04-18] MEDS: EZETIMIBE 10 MG TAB PO SCH (06:29)
[2023-04-18] MEDS: hydrALAZINE HCL 50 MG TAB PO SCH ×4 (06:29→22:28)
[2023-04-18] MEDS: LOSARTAN 50 MG TAB PO SCH (06:29)
[2023-04-18] MEDS: metFORMIN 500 MG TAB PO SCH ×2 (06:29→17:06)
[2023-04-18] MEDS: CHOLECALCIFEROL 125 MCG (5000 IU) TABLET PO SCH (06:29)
[2023-04-18] MEDS: FAMOTIDINE 20 MG/2 ML VIAL IV SCH ×2 (06:29→22:30)
[2023-04-18] MEDS: INSULIN ASPART (NovoLOG) 100 UNIT/ML VIAL SQ SCH ×4 (06:30→22:31)
[2023-04-18] MEDS: NITROGLYCERIN OINT 1 INCH/GM PACKET TOPICAL SCH (07:59)
[2023-04-18] MEDS ORDERED: hydrALAZINE HCL 50 MG TAB PO STA (08:18)
[2023-04-18] MEDS: IPRATROPIUM-ALBUTEROL 3 ML NEB INHALATION PRN (08:43)
[2023-04-18] MEDS: METOPROLOL SUCCINATE (ER) 100 MG TAB.ER.24H PO SCH (09:07)
[2023-04-18] MEDS: ONDANSETRON 4 MG/2 ML VIAL IVP PRN (11:27)
[2023-04-18] MEDS: ISOSORBIDE MONONITRATE ER 30 MG TAB.ER.24H PO SCH (11:27)
[2023-04-18] MEDS: hydroCHLOROthiazide 25 MG TAB PO SCH (11:27)
[2023-04-18] MEDS: Acetaminophen-Codeine 300-30mg TAB PO PRN ×2 (11:27→17:06)
--- NOTE | 2023-04-18 13:28 | P.PN ---
Subjective HISTORY OF PRESENT ILLNESS: This is a 52-year-old female who presented to the emergency room with chest pain. Patient was found to have severely elevated blood pressures. Her blood pressures remain elevated this morning. She was scheduled for dobutamine stress test today which was canceled due to her uncontrolled hypertension. Blood pressure this morning 231/100. She currently denies chest pain or pressure. She denies shortness of breath. She reports feeling constipated. Patient was unable to tolerate Nitropaste and remove it yesterday secondary to headache. PHYSICAL EXAM: VITAL SIGNS: Reviewed. GENERAL: Well-developed in no acute distress. NECK: Supple. No JVD or thyromegaly LUNGS: Respirations even and unlabored. Lungs essentially clear to auscultation bilaterally. HEART: Regular rate and rhythm. S1 and S2 heard. EXTREMITIES: Normal range of motion. No clubbing or cyanosis. Peripheral pulses intact. No lower extremity edema ASSESSMENT: Chest pain Hypertension, uncontrolled Elevated d-dimer, CTA negative for PE Coronary artery disease with previous stenting of mid LAD, 2019 and angioplasty of circumflex and OM in March 2022 PLAN: Increase hydralazine to 100 mg 3 times a day Add hydrochlorothiazide 25 mg daily Discontinue Nitropaste. Resume patient's Imdur at increased dose of 30 mg daily Continue metoprolol succinate 200 mg daily and losartan 100 mg daily Dobutamine stress test canceled today secondary to uncontrolled blood pressures. Will plan for outpatient stress testing once patient's blood pressure is better controlled. Further recommendations pending patient's course Nurse practitioner note has been reviewed by physician. Signing provider agrees with the documented findings, assessment, and plan of care. Objective - Vital Signs Vital signs: Vital Signs Temp 98.7 F 04/18/23 08:00 Pulse 62 04/18/23 12:56 Resp 18 04/18/23 12:56 BP 231/100 04/18/23 08:00 Pulse Ox 94 L 04/18/23 08:46 FiO2 21 04/17/23 12:52 Intake & Output 04/17/23 04/18/23 04/18/23 18:59 06:59 18:59 Intake Total 200 0 Output Total 200 300 Balance 0 -300 0 Weight 86.636 kg Intake: Intake, IV Titration 200 Amount Sodium Chloride 0.9% 1, 200 000 ml @ 100 mls/hr IV . Q10H STA Rx#:[id number] Oral 0 Output: Urine 200 300 Other: Voiding Method Bedside Commode Bedside Commode - Labs CBC & Chem 7: 04/16/23 22:07 04/16/23 22:07 Labs: Abnormal Lab Results - Last 24 Hours (Table) 04/18/23 Range/Units 06:00 Hemoglobin A1c 9.6 H (<=6.0) %
--- NOTE | 2023-04-18 13:43 | P.PN ---
Subjective This is a pleasant 52 years old -[place] female with multiple medical problems including Asthma, COPD, Diabetes Mellitus, Hyperlipidemia, Hy pertension, hypothyroidism, Back Pain, right shoulder pain, Hx Pituitary Tumor, BENIGN. Thyroid disorder. 3 heart attacks March 2022, 2 stents placed. Patient presents because of chest pain 1 week duration, she states that her pain is in the middle of the chest radiating to the back, about 10/10 in severity. Like sharp and dull, associated with some dyspnea, she has to stop to catch up her breath. She took some nitroglycerin which helped lower her chest pain. She says that she sees her window maker Dr. Ojeda and she has history of 3 stents before. She has some cough and clear phlegm. However patient denies smoking alcohol. She uses marijuana. She is also complaining of from chronic abdominal pain for about 2-3 years, she had colonoscopy before Also complaining of from chronic headache and neck pain also 4 years for example more than 2 years, she follows up with the pain clinic and she had steroid injection before. He is complaining also from chronic constipation ask for stool softeners Vital signs stable and patient is afebrile Labs show an unremarkable CBC, INR, BMP, liver enzymes. Sent to our less than 0.012. ProBNP 310. D-dimer elevated at 0.76. CTA of the chest showing no pulmonary embolism and lingular atelectasis or developing infiltrates small in size. EKG showing normal sinus rhythm at [address]-T changes. In the emergency room patient received labetalol IV several doses as well as normal saline and morphine. 04/18/2023 Patient with no chest pain today Stress Test However This Was Held for Now Because of Uncontrolled Hypertensive Urgency, Pressure This Morning Is 2:30/100, Patient Hydralazine Was Increased to 100 Mg 3 Times A Day, Started on Hydrochlorothiazide As Well As Beta Jose Metoprolol 200 Mg Daily and Losartan 100 Mg Daily. Secondary Causes of Hypertension Has Been Started Including Ultrasound of the Renal Arteries and check aldasteron and renin and metanephrines Yesterday, the gallbladder bed side nurse that at bedside was concerned about her abdominal pain and she wants her to be seen by surgery who earlier that day patient told me that she has this abdominal pain for the last 2-3 years, today her abdominal pain was completely resolved, no abdomen soft and patient does not think she needs to see a surgeon and she wants me to consult consult which I reviewed. Discussed with the staff to monitor blood pressure closely Hemoglobin A1c is 9.6. Patient will need better . Control of diabetes, currently on metformin 1000 twice a day.Continue with sliding scale of insulin for now and add no medication as patient might be nothing by mouth tomorrow for stress test Review of systems CONSTITUTIONAL: No fever, no malaise, no fatigue. HEENT: No recent visual problems or hearing problems. Denied any sore throat. CARDIOVASCULAR: No orthopnea, PND, no palpitations, no syncope. PULMONARY: No shortness of breath, no cough, no hemoptysis. GASTROINTESTINAL: No diarrhea, no nausea, no vomiting, no abdominal pain. Normoactive bowel sounds. NEUROLOGICAL: No headaches, no weakness, no numbness. Active Medications Generic Name Dose Route Start Last Admin Trade Name Freq PRN Reason Stop Dose Admin Acetaminophen/Codeine Phosphate 1 each 04/17/23 12:00 04/18/23 11:27 Acetaminophen-Codeine 300-30mg Tab PO 1 each Q6HR PRN Administration Pain Albuterol/Ipratropium 3 ml 04/17/23 07:51 04/18/23 08:43 Ipratropium-Albuterol 3 Ml Neb INHALATION 3 ml RT-TID PRN Administration Shortness Of Breath Atorvastatin Calcium 80 mg 04/17/23 21:00 04/17/23 20:40 Atorvastatin 80 Mg Tab PO 80 mg HS TIERA Administration Cholecalciferol 125 mcg 04/17/23 09:00 04/18/23 06:29 Cholecalciferol 125 Mcg (5000 Iu) Tablet PO 125 mcg DAILY TIERA Administration Dextrose/Water 25 ml 04/17/23 07:52 Dextrose 50% Syringe 50 Ml IVP PER PROTOCOL PRN Hypoglycemia Protocol Dextrose/Water 50 ml 04/17/23 07:52 Dextrose 50% Syringe 50 Ml IVP PER PROTOCOL PRN Hypoglycemia Protocol Diphenhydramine HCl 25 mg 04/17/23 14:26 04/17/23 14:43 Diphenhydramine 25 Mg Cap PO 25 mg TID PRN Administration Itching Ezetimibe 10 mg 04/17/23 09:00 04/18/23 06:29 Ezetimibe 10 Mg Tab PO 10 mg DAILY TIERA Administration Famotidine 20 mg 04/17/23 09:00 04/18/23 06:29 Famotidine 20 Mg/2 Ml Vial IV 20 mg Q12HR TIERA Administration Heparin Sodium (Porcine) 5,000 unit 04/17/23 09:00 04/18/23 06:28 Heparin Sodium,Porcine/Pf 5,000 Unit/0.5 Ml Syringe SQ 5,000 unit Q12HR TIERA Administration Hydralazine HCl 100 mg 04/18/23 09:00 04/18/23 08:24 Hydralazine Hcl 50 Mg Tab PO Not Given TID TIERA Hydrochlorothiazide 25 mg 04/18/23 11:30 04/18/23 11:27 Hydrochlorothiazide 25 Mg Tab PO 25 mg DAILY TIERA Administration Sodium Chloride 1,000 mls @ 20 mls/hr 04/17/23 01:15 04/18/23 04:59 Saline 0.9% IV Not Given .Q24H [facility] Insulin Aspart 0 unit 04/17/23 12:30 04/18/23 06:30 Insulin Aspart (Novolog) 100 Unit/Ml Vial SQ 1 unit ACHS [facility] Administration Protocol Isosorbide Mononitrate 30 mg 04/18/23 09:15 04/18/23 11:27 Isosorbide Mononitrate Er 30 Mg Tab.Er.24h PO 30 mg DAILY TIERA Administration Losartan Potassium 100 mg 04/17/23 09:00 04/18/23 06:29 Losartan 50 Mg Tab PO 100 mg DAILY [facility] Administration Metformin HCl 1,000 mg 04/17/23 09:00 04/18/23 06:29 Metformin 500 Mg Tab PO 1,000 mg BID-W/MEALS TIERA Administration Metoprolol Succinate 200 mg 04/17/23 09:00 04/18/23 09:07 Metoprolol Succinate (Er) 100 Mg Tab.Er.24h PO 200 mg DAILY [facility] Administration Naloxone HCl 0.2 mg 04/17/23 01:04 Naloxone 0.4 Mg/Ml 1 Ml Vial IV Q2M PRN Opioid Reversal Nitroglycerin 0.4 mg 04/17/23 07:51 Nitroglycerin Sl Tabs 0.4 Mg Tab SUBLINGUAL Q5M PRN Chest Pain Ondansetron HCl 4 mg 04/17/23 11:59 04/18/23 11:27 Ondansetron 4 Mg/2 Ml Vial IVP 4 mg Q6HR PRN Administration Nausea And Vomiting Senna/Docusate Sodium 1 each 04/17/23 09:00 04/18/23 06:29 Sennosides-Docusate Sodium 1 Each Tab PO 1 each BID TIERA Administration Objective - Vital Signs Vital signs: Vital Signs Temp 98.7 F 04/18/23 08:00 Pulse 66 04/18/23 09:00 Resp 18 04/18/23 08:00 BP 231/100 04/18/23 08:00 Pulse Ox 94 L 04/18/23 08:46 FiO2 21 04/17/23 12:52 Intake & Output 04/17/23 04/18/23 04/18/23 18:59 06:59 18:59 Intake Total 200 Output Total 200 300 Balance 0 -300 Weight 86.636 kg Intake: Intake, IV Titration 200 Amount Sodium Chloride 0.9% 1, 200 000 ml @ 100 mls/hr IV . Q10H STA Rx#:[id number] Output: Urine 200 300 Other: Voiding Method Bedside Commode Bedside Commode - Exam GENERAL: The patient is alert and oriented x3, not in any acute distress. Well developed, well nourished. HEENT: Pupils are round and equally reacting to light. EOMI. No scleral icterus. No conjunctival pallor. Normocephalic, atraumatic. No pharyngeal erythema. No thyromegaly. CARDIOVASCULAR: S1 and S2 present. No murmurs, rubs, or gallops. PULMONARY: Chest is clear to auscultation, no wheezing , no crackles. ABDOMEN: Soft, nontender, nondistended, normoactive bowel sounds. No palpable organomegaly. MUSCULOSKELETAL: No joint swelling or deformity. EXTREMITIES: No cyanosis, clubbing, or pedal edema. NEUROLOGICAL: Gross neurological examination did not reveal any focal deficits. SKIN: No rashes. no petechiae. - Labs CBC & Chem 7: 04/16/23 22:07 04/16/23 22:07 Labs: Abnormal Lab Results - Last 24 Hours (Table) 04/18/23 Range/Units 06:00 Hemoglobin A1c 9.6 H (<=6.0) % Assessment and Plan Assessment: Chest pain, rule out cardiac causes. Currently just been resolved. In a stress test Hypertension with urgency, uncontrolled on admission History of coronary artery disease status post stenting Diabetes mellitus Hyperlipidemia History of osteoarthritis Hypothyroidism Obesity with BMI of 38.6 Plan: Continue with aspirin and effient Cardiology consult stress test one blood pressure is controlled Continue with hydralazine 100 mg, losartan 100 mg, metoprolol 200 mg and hydrochlorothiazide. Continue with workup for secondary hypertension Abdominal pain resolved, no need for surgical consult Labs and medication were reviewed.. Continue same treatment. Continue with symptomatic treatment. Resume home medication. Monitor labs and vitals. DVT and GI prophylaxis. Further recommendations as per clinical course of the patient DVT prophylaxis: Subcutaneous heparin GI Prophylaxis: Pepcid Prognosis is guarded
--- NOTE | 2023-04-18 15:45 | US ---
EXAMINATION TYPE: US renal artery duplex complete DATE OF EXAM: 04/18/2023 COMPARISON: 06/10/2022 CLINICAL INDICATION: Female, 52 years old with history of r/o renal artery stenosis; uncontrolled HTN MEASUREMENTS: RENAL SIZE: Rt Kidney: 9.9 x 4.3 x 4.2cm Lt Kidney: 9.8 x 4.4 x 5.1cm RESISTANCE INDEX Right: 0.6 Left: 0.6 RA/AO RATIO (< 3.5 ) Right: 1.1 Left: 1.0 RA VELOCITY ( < 180 cm/s) Right: 140.3 Left: 126.9 IMPRESSION: No evidence for renal artery stenosis.
[2023-04-18] MEDS: DAPAGLIFLOZIN PROPANEDIOL 10 MG TABLET PO SCH (17:06)
[2023-04-18] MEDS ORDERED: ACETAMINOPHEN TAB 500 MG TAB PO STA (21:56)
[2023-04-18] MEDS ORDERED: polyethylene glycoL 3350 17 GM POWD.PACK PO SCH (22:15)
[2023-04-18] MEDS: LIDOCAINE 5% PATCH TOPICAL SCH (22:28)
[2023-04-18] MEDS: ATORVASTATIN 80 MG TAB PO SCH (22:28)
[2023-04-19 05:53] VITALS: RESP 14
[2023-04-19] MEDS: INSULIN ASPART (NovoLOG) 100 UNIT/ML VIAL SQ SCH (07:52)
[2023-04-19 08:02] VITALS: BP 174/84; PULSE 58; TEMP 96.6
[2023-04-19] MEDS: SODIUM CHLORIDE 0.9% 1,000 ML IV SCH (09:38)
[2023-04-19] MEDS: SENNOSIDES-DOCUSATE SODIUM 1 EACH TAB PO SCH (09:47)
[2023-04-19] MEDS: CHOLECALCIFEROL 125 MCG (5000 IU) TABLET PO SCH (09:47)
[2023-04-19] MEDS: EZETIMIBE 10 MG TAB PO SCH (09:47)
[2023-04-19] MEDS: METOPROLOL SUCCINATE (ER) 100 MG TAB.ER.24H PO SCH (09:47)
[2023-04-19] MEDS: hydrALAZINE HCL 50 MG TAB PO SCH (09:48)
[2023-04-19] MEDS: hydroCHLOROthiazide 25 MG TAB PO SCH (09:48)
[2023-04-19] MEDS: metFORMIN 500 MG TAB PO SCH (09:48)
[2023-04-19] MEDS: LOSARTAN 50 MG TAB PO SCH (09:48)
[2023-04-19] MEDS: HEPARIN SODIUM,PORCINE/PF 5,000 UNIT/0.5 ML SYRINGE SQ SCH (09:49)
[2023-04-19] MEDS: LIDOCAINE 5% PATCH TOPICAL SCH ×2 (09:49→11:16)
[2023-04-19] MEDS: FAMOTIDINE 20 MG/2 ML VIAL IV SCH ×2 (09:49→10:07)
[2023-04-19 10:29] VITALS: BMI 38.5
[2023-04-19] MEDS: DAPAGLIFLOZIN PROPANEDIOL 10 MG TABLET PO SCH (10:45)
[2023-04-19] MEDS ORDERED: FAMOTIDINE 20 MG TAB PO SCH (11:00)
[2023-04-19] MEDS: ISOSORBIDE MONONITRATE ER 30 MG TAB.ER.24H PO SCH (11:16)
--- NOTE | 2023-04-19 12:49 | P.PN ---
Subjective Progress Note Date: 04/19/23 HISTORY OF PRESENT ILLNESS: This is a 52-year-old female who presented to the emergency room with chest pain. Patient was found to have severely elevated blood pressures. Her blood pressures remain elevated this morning. She was scheduled for dobutamine stress test today which was canceled due to her uncontrolled hypertension. Blood pressure this morning 231/100. She currently denies chest pain or pressure. She denies shortness of breath. She reports feeling constipated. Patient was unable to tolerate Nitropaste and remove it yesterday secondary to headache. 04/19/2023 Patient examined this morning at bedside. Patient denies chest pain or pressure. Patient denies shortness of breath. Patient's blood pressure is improved this morning. PHYSICAL EXAM: VITAL SIGNS: Reviewed. GENERAL: Well-developed in no acute distress. NECK: Supple. No JVD or thyromegaly LUNGS: Respirations even and unlabored. Lungs essentially clear to auscultation bilaterally. HEART: Regular rate and rhythm. S1 and S2 heard. EXTREMITIES: Normal range of motion. No clubbing or cyanosis. Peripheral pulses intact. No lower extremity edema ASSESSMENT: Chest pain Hypertension, uncontrolled Elevated d-dimer, CTA negative for PE Coronary artery disease with previous stenting of mid LAD, 2019 and angioplasty of circumflex and OM in March 2022 PLAN: Continue current cardiac medications Reinforced medication compliance with patient who verbalized understanding We'll plan for outpatient stress testing Patient to be discharged home today from a cardiac standpoint Nurse practitioner note has been reviewed by physician. Signing provider agrees with the documented findings, assessment, and plan of care. Objective - Vital Signs Vital signs: Vital Signs Temp 96.6 F L 04/19/23 07:55 Pulse 58 L 04/19/23 07:55 Resp 14 04/19/23 07:55 BP 174/84 04/19/23 07:55 Pulse Ox 99 04/19/23 08:22 FiO2 21 04/17/23 12:52 Intake & Output 04/18/23 04/19/23 04/19/23 18:59 06:59 18:59 Intake Total 0 Balance 0 Weight 86.636 kg Intake: Oral 0 Other: Voiding Method Bedpan Toilet # Voids 1 - Labs CBC & Chem 7: 04/16/23 22:07 04/16/23 22:07
--- NOTE | 2023-04-19 22:51 | P.DS ---
Providers Date of admission: 04/17/23 01:04 Attending physician: All Choi Consults: 04/17/23 01:04 Consult Physician Routine Consulting Provider: Eliana Rose Consult Reason/Comments: cp Do you want consulting provider notified?: Yes 04/19/23 10:51 Consult Physician Routine Consulting Provider: Adriel Duvall Reason/Comments: pt refusing to take medications at home Do you want consulting provider notified?: Yes Primary care physician: Gabriela Hubbardremba Hospital Course: Diagnoses Chest pain, rule out cardiac causes. Mostly musculoskeletal, resolved. Optical Instrument Assembler recommended outpatient stress test (patient is informed) Hypertension with urgency, uncontrolled on admission, could be multifactorial primary hypertension versus secondary to anxiety versus others. None compliance History of coronary artery disease status post stenting Diabetes mellitus Hyperlipidemia History of osteoarthritis Hypothyroidism Obesity with BMI of 38.6 Hospital course: This is a pleasant 52 years old -Danish female with multiple medical problems including Asthma, COPD, Diabetes Mellitus, Hyperlipidemia, Hypertension, hypothyroidism, Back Pain, right shoulder pain, Hx Pituitary Corky or, BENIGN. Thyroid disorder. 3 heart attacks March 2022, 2 stents placed. Patient presents because of chest pain 1 week duration, patient involvement by driller's offsider she was treated with him do, many blood pressure medication including losartan, hydralazine, her blood pressure improved. Also patient chest pain improved. She directed at 0/10. She denies any other symptoms. No dyspnea, there was some reports of abdominal pain on admission however patient was with no abdominal pain over the last 48 hours prior to leaving the hospital. Today patient was evaluated by driller's offsider and cleared him for discharge with recommendation for outpatient stress test, patient verbalized understanding and acceptance to follow up with driller's offsider Dr. Ojeda in one week area Patient states that she is back to baseline normal status and a eager to go home this morning, and reviewing discharge medication including blood pressure medication with the patient she told me she may not take her blood pressure medication, and she confirmed also that she was not taking any blood pressure medication prior to coming to the hospital. Also patient told me the risks of not taking antihypertensive medication including accelerated hypertension, and stroke or heart attack. The patient is alert awake and oriented to time, place and person. She follows commands and answers questions appropriately. At the same time patient denies any signs and symptoms of depression, she denies any suicidal or homicidal ideation. She denies hallucination or delusions to me. Based upon my evaluation patient has capacity to make medical decision On reviewing the records the patient's was always hypertensive as opposed 200s over several months and years Later The Patient decided to leave AMA (AGAINST MEDICAL ADVICE) before I have a chance to see her doctor again. Benefits and risks and alternatives are explained to the patient by staff more than once. Patient had capacity to make medical decision and medical team could not hold patient against her wishes. However the risks of: None compliance to medications are explained to the patient extensively. Physical exam Gen: patient is a AAOx3, no distress CVS: S1-S2, RRR, no murmur Lungs: B/L CTA, no wheezing Abdomen: soft, no distention, no tenderness, positive bowel sounds Extremity: no leg edema or induration Time spent more than 35 minutes Patient Condition at Discharge: Serious Plan - Discharge Summary Discharge Rx Participant: Yes New Discharge Prescriptions: New hydroCHLOROthiazide [Hydrodiuril] 25 mg PO DAILY #60 tab Lidocaine 5% Patch [Lidoderm 5% Patch] 1 patch TOPICAL DAILY #3 patch Sennosides-Docusate Sodium [Senokot-S] 1 each PO BID 14 Days #30 tab hydrALAZINE HCL [Apresoline] 100 mg PO TID #90 tablet Dapagliflozin Propanediol [Farxiga] 10 mg PO DAILY #30 tab Famotidine [Pepcid] 20 mg PO DAILY #30 tablet Losartan [Cozaar] 100 mg PO DAILY #120 tab Continue Prasugrel [Effient] 10 mg PO DAILY Nitroglycerin Sl Tabs [Nitrostat] 0.4 mg SL Q5M PRN PRN Reason: Chest Pain Ipratropium-Albuterol Nebulize [Duoneb 0.5 mg-3 mg/3 ml Soln] 3 ml INHALATION RT-TID PRN PRN Reason: Shortness Of Breath Atorvastatin [Lipitor] 80 mg PO HS Aspirin EC [Ecotrin Low Dose] 81 mg PO DAILY Isosorbide Mononitrate ER [Imdur] 15 mg PO DAILY Cholecalciferol [Vitamin D3 (125 Mcg = 5000 Iu)] 125 mcg PO DAILY metFORMIN HCL [Glucophage] 1,000 mg PO BID Ezetimibe [Zetia] 10 mg PO DAILY 90 Days #90 tab Metoprolol Succinate [Toprol XL] 200 mg PO DAILY #30 tab Discontinued Losartan Potassium [Cozaar] 100 mg PO DAILY Discharge Medication List Aspirin EC [Ecotrin Low Dose] 81 mg PO DAILY 05/05/20 [History] Atorvastatin [Lipitor] 80 mg PO HS 05/05/20 [History] Ipratropium-Albuterol Nebulize [Duoneb 0.5 mg-3 mg/3 ml Soln] 3 ml INHALATION RT-TID PRN 05/05/20 [History] Nitroglycerin Sl Tabs [Nitrostat] 0.4 mg SL Q5M PRN 05/05/20 [History] Prasugrel [Effient] 10 mg PO DAILY 05/05/20 [History] Cholecalciferol [Vitamin D3 (125 Mcg = 5000 Iu)] 125 mcg PO DAILY 01/17/22 [History] Isosorbide Mononitrate ER [Imdur] 15 mg PO DAILY 01/19/22 [History] metFORMIN HCL [Glucophage] 1,000 mg PO BID 01/19/22 [History] Ezetimibe [Zetia] 10 mg PO DAILY 90 Days #90 tab 03/30/22 [Rx] Dapagliflozin Propanediol [Farxiga] 10 mg PO DAILY #30 tab 04/19/23 [Rx] Famotidine [Pepcid] 20 mg PO DAILY #30 tablet 04/19/23 [Rx] Lidocaine 5% Patch [Lidoderm 5% Patch] 1 patch TOPICAL DAILY #3 patch 04/19/23 [Rx] Losartan [Cozaar] 100 mg PO DAILY #120 tab 04/19/23 [Rx] Metoprolol Succinate [Toprol XL] 200 mg PO DAILY #30 tab 04/19/23 [Rx] Sennosides-Docusate Sodium [Senokot-S] 1 each PO BID 14 Days #30 tab 04/19/23 [Rx] hydrALAZINE HCL [Apresoline] 100 mg PO TID #90 tablet 04/19/23 [Rx] hydroCHLOROthiazide [Hydrodiuril] 25 mg PO DAILY #60 tab 04/19/23 [Rx] Follow up Appointment(s)/Referral(s): Will Ojeda MD [STAFF PHYSICIAN] - 05/01/23 2:30 pm ([facility] ( in front of [facility])) [place] MD [REFERRING] - 2 Weeks (diabetes doctor please call and set up your appointment) None,Stated [REFERRING] - 1-2 days Patient Instructions/Handouts: Coronary Artery Disease (DC), Hypertension (ED) Discharge Disposition: LEFT AGAINST MEDICAL ADVICE
[2023-04-20] MEDS ORDERED: ISOSORBIDE MONONITRATE ER 15 MG TAB PO SCH (09:00)
== END 2023-04-19 10:55 | disposition left against medical advice (07) ==
LOC: EC 21:35 → INTOOBSV 04-17 01:04 → 3SCARD 04-17 01:04 → UNDODISIN 04-19 10:55
PROVIDERS: ADMIT Hospitalist; ATTEND Hospitalist
DX: I16.1 Hypertensive emergency (principal); R07.89 Other chest pain; I08.1 Rheumatic disorders of both mitral and tricuspid valves; I10 Essential (primary) hypertension; E11.9 Type 2 diabetes mellitus without complications; I25.10 Atherosclerotic heart disease of native coronary artery without angina pectoris; E78.5 Hyperlipidemia, unspecified; J44.9 Chronic obstructive pulmonary disease, unspecified; R79.89 Other specified abnormal findings of blood chemistry; I25.2 Old myocardial infarction; E03.9 Hypothyroidism, unspecified; K59.09 Other constipation; G44.40 Drug-induced headache, not elsewhere classified, not intractable; T46.3X5A Adverse effect of coronary vasodilators, initial encounter; M19.90 Unspecified osteoarthritis, unspecified site; G89.29 Other chronic pain; M54.9 Dorsalgia, unspecified; R10.9 Unspecified abdominal pain; E66.9 Obesity, unspecified; Z68.38 Body mass index [BMI] 38.0-38.9, adult; Z53.29 Procedure and treatment not carried out because of patient's decision for other reasons; Z91.199 Patient's noncompliance with other medical treatment and regimen due to unspecified reason; F41.9 Anxiety disorder, unspecified; F32.A Depression, unspecified; Z79.02 Long term (current) use of antithrombotics/antiplatelets; Z79.899 Other long term (current) drug therapy; Z79.82 Long term (current) use of aspirin; Z79.84 Long term (current) use of oral hypoglycemic drugs; Z91.010 Allergy to peanuts; Z91.018 Allergy to other foods; Z91.048 Other nonmedicinal substance allergy status; Z86.018 Personal history of other benign neoplasm; Z95.5 Presence of coronary angioplasty implant and graft; Z98.51 Tubal ligation status; Z98.891 History of uterine scar from previous surgery; Z98.890 Other specified postprocedural states; Z87.891 Personal history of nicotine dependence; Z82.49 Family history of ischemic heart disease and other diseases of the circulatory system; Z80.42 Family history of malignant neoplasm of prostate
CPT/HCPCS: 96376 ×3; 96372 ×3; 96361 ×2; 96374; 96375 ×2; 99285; 36415; 94640; 94760 ×2; 93005; 93306; 97161; 85379; 83880; 80053; 82533; 82088; 84244; 83690; 83735; 84484 ×2; 85025; 85610; 85730; 83036; 71045; 74018; 93975; 71275; G0378 ×3; L0120; J2270; J1940; J2405 ×3; J1170 ×2; Q9967; J1644 ×3; 83835

== ENCOUNTER 2023-05-28 06:00 | Emergency (ER) | payer OTHER ==
[2023-05-28 06:13] VITALS: RESP 18; TEMP 98.4
[2023-05-28] MEDS ORDERED: diphenhydrAMINE 50 MG/ML 1 ML VIAL IVP STA (06:14)
[2023-05-28] MEDS ORDERED: SODIUM CHLORIDE 0.9% 1,000 ML IV STA (06:14)
[2023-05-28] MEDS ORDERED: METOCLOPRAMIDE 5 MG/ML 2 ML VIAL IVP STA (06:14)
[2023-05-28] MEDS ORDERED: KETOROLAC 15 MG/ML 1 ML VIAL IVP STA (06:14)
[2023-05-28] MEDS ORDERED: diphenhydrAMINE 25 MG CAP PO STA (06:36)
--- NOTE | 2023-05-28 06:42 | ED ---
Headache HPI - General Chief Complaint: Headache Stated Complaint: Headache Time Seen by Provider: 05/28/23 06:15 Source: patient, RN notes reviewed Mode of arrival: EMS - History of Present Illness Initial Comments: Patient is a 52-year-old -Slovenian female presenting to the emergency room via EMS with complaints of a severe headache along with neck pain and shoulder pain. She reports that she has had headaches similar to this in the past and that the current headache symptoms have been ongoing for a few weeks. She does follow with pain management for chronic neck pain. She denies any injuries or focal neurological deficits. She is unable to identify any alleviating factors. She denies any other complaints or concerns at this time including any chest pain, shortness of breath, abdominal pain, nausea, vomiting, blurred or double vision, fevers or chills. As stated above she has a past medical history significant for chronic neck pain, chronic headaches along with diabetes, hypertension, high cholesterol, hypothyroidism, asthma and COPD. - Related Data Home Medications Medication Instructions Recorded Confirmed Aspirin EC [Ecotrin Low Dose] 81 mg PO DAILY 05/05/20 04/16/23 Atorvastatin [Lipitor] 80 mg PO HS 05/05/20 04/16/23 Ipratropium-Albuterol Nebulize 3 ml INHALATION RT-TID PRN 05/05/20 04/16/23 [Duoneb 0.5 mg-3 mg/3 ml Soln] Nitroglycerin Sl Tabs [Nitrostat] 0.4 mg SL Q5M PRN 05/05/20 04/16/23 Prasugrel [Effient] 10 mg PO DAILY 05/05/20 04/16/23 Cholecalciferol [Vitamin D3 (125 125 mcg PO DAILY 01/17/22 04/16/23 Mcg = 5000 Iu)] Isosorbide Mononitrate ER [Imdur] 15 mg PO DAILY 01/19/22 04/16/23 metFORMIN HCL [Glucophage] 1,000 mg PO BID 01/19/22 04/16/23 Previous Rx's Medication Instructions Recorded Ezetimibe [Zetia] 10 mg PO DAILY 90 Days #90 tab 03/30/22 Dapagliflozin Propanediol [Farxiga] 10 mg PO DAILY #30 tab 04/19/23 Famotidine [Pepcid] 20 mg PO DAILY #30 tablet 04/19/23 Lidocaine 5% Patch [Lidoderm 5% 1 patch TOPICAL DAILY #3 patch 04/19/23 Patch] Losartan [Cozaar] 100 mg PO DAILY #120 tab 04/19/23 Metoprolol Succinate [Toprol XL] 200 mg PO DAILY #30 tab 04/19/23 Sennosides-Docusate Sodium 1 each PO BID 14 Days #30 tab 04/19/23 [Senokot-S] hydrALAZINE HCL [Apresoline] 100 mg PO TID #90 tablet 04/19/23 hydroCHLOROthiazide [Hydrodiuril] 25 mg PO DAILY #60 tab 04/19/23 Allergies Allergy/AdvReac Type Severity Reaction Status Date / Time peanut Allergy HIVES Verified 04/16/23 22:40 rice Allergy Rash/Hives Verified 04/16/23 22:40 seasonal Allergy Rash/Hives Uncoded 04/16/23 22:40 Review of Systems ROS Statement: Those systems with pertinent positive or pertinent negative responses have been documented in the HPI. ROS Other: All systems not noted in ROS Statement are negative. Past Medical History Past Medical History: Asthma, COPD, Diabetes Mellitus, Hyperlipidemia, Hypertension, Myocardial Infarction (HI), Musculoskeletal Disorder, Thyroid Disorder Additional Past Medical History / Comment(s): Back Pain, right shoulder pain, Hx Pituitary Tumor, BENIGN. Thyroid disorder. 3 heart attacks March 2022, 2 stents placed. left ear infection recently treated Last Myocardial Infarction Date:: 10/29/22 History of Any Multi-Drug Resistant Organisms: None Reported Past Surgical History: Section, Heart Catheterization With Stent, Tubal Ligation Additional Past Surgical History / Comment(s): Pituitary Tumor Removed. col onoscopy, PAIN CLINIC PROCEDURES Past Anesthesia/Blood Transfusion Reactions: No Reported Reaction Date of Last Stent Placement:: april 28 2020 Past Psychological History: Anxiety, Depression Smoking Status: Former smoker Past Alcohol Use History: None Reported Past Drug Use History: Marijuana - Past Family History Mother Family Medical History: Deep Vein Thrombosis (DVT) Additional Family Medical History / Comment(s): Mother is alive at age 67 with history of coronary artery disease and three-vessel CABG. Daughter(s) Family Medical History: Deep Vein Thrombosis (DVT) Additional Family Medical History / Comment(s): Patient has a total of 9 children with no major medical problems. Father Family Medical History: Cancer Additional Family Medical History / Comment(s): Father is alive with no history of coronary artery disease. History of Prostate Cancer Sister(s) Additional Family Medical History / Comment(s): The patient has 4 sisters and 1 brother. One sister had a myocardial infraction at age 40. General Exam Limitations: no limitations General appearance: alert, in no apparent distress Head exam: Present: atraumatic, normocephalic, normal inspection Eye exam: Present: normal appearance, PERRL, EOMI. Absent: scleral icterus, conjunctival injection, nystagmus, periorbital swelling ENT exam: Present: normal exam, mucous membranes moist Neck exam: Present: normal inspection, tenderness (Generalized no vertebral point tenderness). Absent: meningismus, lymphadenopathy Respiratory exam: Present: normal lung sounds bilaterally. Absent: respiratory distress, wheezes, rales, rhonchi, stridor Cardiovascular Exam: Present: regular rate, normal rhythm, normal heart sounds. Absent: systolic murmur, diastolic murmur, rubs, gallop, clicks GI/Abdominal exam: Present: soft, normal bowel sounds. Absent: distended, tenderness, guarding, rebound, rigid Extremities exam: Present: normal inspection. Absent: pedal edema, joint swelling Back exam: Present: normal inspection Neurological exam: Present: alert, oriented X3, CN II-XII intact Psychiatric exam: Present: anxious Skin exam: Present: warm, dry, intact, normal color. Absent: rash Course Vital Signs 05/28/23 06:07 Temperature 98.4 F Pulse Rate 70 Respiratory 18 Rate Blood Pressure 181/95 O2 Sat by Pulse 100 Oximetry Medical Decision Making - Medical Decision Making Was pt. sent in by a medical professional or institution (, PA, POCKET ASSEMBLER, urgent care, hospital, or assisted...) When possible be specific @ -No Did you speak to anyone other than the patient for history (EMS, parent, family, police, friend...)? What history was obtained from this source @ -No Did you review nursing and triage notes (agree or disagree)? Why? @ -I reviewed and agree with nursing and triage notes Were old charts reviewed (outside hosp., previous admission, EMS record, old EKG, old radiological studies, urgent care reports/EKG's, assisted records)? Report findings @ -No old charts were reviewed Differential Diagnosis (chest pain, altered mental status, abdominal pain women, abdominal pain men, vaginal bleeding, weakness, fever, dyspnea, syncope, headache, dizziness, GI bleed, back pain, seizure, CVA, palpatations, mental health, musculoskeletal)? @ -Differential Headache: Migraine, tension, cluster, carbon monoxide, central venous thrombosis, pension karma temporal arteritis, acute closure glaucoma, intercranial hemorrhage, mastoiditis, sinusitis, head injury, this is not meant to be an all-inclusive list. EKG interpreted by me (3pts min.). @ -None done X-rays interpreted by me (1pt min.). @ -None done CT interpreted by me (1pt min.). @ -CT of head and cervical spine considered but deferred due to history of chronic neck and headaches with no changes in characteristics for focal neurological deficits.. U/S interpreted by me (1pt. min.). @ -None done What testing was considered but not performed or refused? (CT, X-rays, U/S, labs)? Why? @ -None What meds were considered but not given or refused? Why? @ -IV Benadryl was considered but refused and requested orally and given orally. Did you discuss the management of the patient with other professionals (professionals i.e. , PA, POCKET ASSEMBLER, lab, RT, psych nurse, social media assistant, feather maker, teacher, protective officer, case monitor)? Give summary @ -No Was smoking cessation discussed for >3mins.? @ -No Was critical care preformed (if so, how long)? @ -No Were there social determinants of health that impacted care today? How? (Homelessness, low income, unemployed, alcoholism, drug addiction, transportation, low edu. Level, literacy, decrease access to med. care, custodial, rehab)? @ -No Was there de-escalation of care discussed even if they declined (Discuss DNR or withdrawal of care, Hospice)? DNR status @ -No What co-morbidities impacted this encounter? (DM, HTN, Smoking, COPD, CAD, Cancer, CVA, ARF, Chemo, Hep., AIDS, mental health diagnosis, sleep apnea, morbid obesity)? @ -Chronic neck and head pain Was patient admitted / discharged? Hospital course, mention meds given and route, prescriptions, significant lab abnormalities, going to OR and other pertinent info. @ -52-year-old -Slovenian female complaining of head and neck and shoulder pain ongoing for 3 weeks which is similar to previous. Without any focal neurological deficits or change in pain characteristic no indication for any diagnostic testing or laboratory studies. Will give migraine cocktail with 1 L IV Toradol and Reglan. Patient requesting Benadryl from cocktail to be given orally will give orally. Symptoms persist but have improved after cocktail. Discussed neck pain and headache pain and need for follow-up with primary care provider in pain management clinic for further management of symptoms. Return parameters to the emergency room requiring further emergency care reviewed at length. Questions and concerns answered. Will discharge home in stable condition with continued home medication pain medicines for acute on chronic neck and head pain advising follow-up with primary care provider and pain clinic. Undiagnosed new problem with uncertain prognosis? @ -No Drug Therapy requiring intensive monitoring for toxicity (Heparin, Nitro, Insulin, Cardizem)? @ -No Were any procedures done? @ -No Diagnosis/symptom? @ -Headache Acute, or Chronic, or Acute on Chronic? @ -Acute on chronic Uncomplicated (without systemic symptoms) or Complicated (systemic symptoms)? @ -Uncomplicated Side effects of treatment? @ -No Exacerbation, Progression, or Severe Exacerbation? @ -No Poses a threat to life or bodily function? How? (Chest pain, USA, HI, pneumonia, PE, COPD, DKA, ARF, appy, cholecystitis, CVA, Diverticulitis, Homicidal, Suicidal, threat to staff... and all critical care pts) @ -No Diagnosis/symptom? @ -Neck pain Acute, or Chronic, or Acute on Chronic? @ -Acute on chronic Uncomplicated (without systemic symptoms) or Complicated (systemic symptoms)? @ -Uncomplicated Side effects of treatment? @ -none Exacerbation, Progression, or Severe Exacerbation] @ -no Poses a threat to life or bodily function? @ -no Case discussed with Dr. Whitt. Disposition Clinical Impression: Headache, Neck pain Disposition: HOME SELF-CARE Condition: Stable Instructions (If sedation given, give patient instructions): Cervical Radiculopathy (ED), Chronic Neck Pain (DC), Acute Headache (ED) Additional Instructions: Please utilize your previously prescribed pain medication and/or [id number] Tylenol or Motrin as needed for neck and head pain. Please follow-up with your primary care provider and your painter touch up. Please return to the Emergency Department if symptoms worsen or any other concerns. Is patient prescribed a controlled substance at d/c from ED?: No Referrals: Gabriela Urban NPC [Primary Care Provider] - 1-2 days Time of Disposition: 08:06
[2023-05-28 08:39] VITALS: BP 170/82; PULSE 62
== END 2023-05-28 08:39 | disposition home or self-care (01) ==
LOC: EC 06:00
DX: M54.2 Cervicalgia (principal); R51.9 Headache, unspecified; E11.9 Type 2 diabetes mellitus without complications; I10 Essential (primary) hypertension; I25.2 Old myocardial infarction; J44.9 Chronic obstructive pulmonary disease, unspecified; F41.9 Anxiety disorder, unspecified; F32.A Depression, unspecified; F12.90 Cannabis use, unspecified, uncomplicated; Z79.02 Long term (current) use of antithrombotics/antiplatelets; Z79.82 Long term (current) use of aspirin; Z79.84 Long term (current) use of oral hypoglycemic drugs; Z79.899 Other long term (current) drug therapy; Z87.891 Personal history of nicotine dependence; Z91.018 Allergy to other foods; Z88.8 Allergy status to other drugs, medicaments and biological substances
CPT/HCPCS: 99284; 96374; 96375; 96361 ×2; J2765; J1885

== ENCOUNTER 2023-06-14 21:25 | Observation (INO) | payer OTHER ==
[2023-06-14] MEDS ORDERED: MORPHINE SULFATE 4 MG/ML SYRINGE IVP STA (21:37)
[2023-06-14] MEDS ORDERED: KETOROLAC 15 MG/ML 1 ML VIAL IVP STA (21:37)
[2023-06-14] MEDS ORDERED: methylPREDNISolone SOD SUCCI 125 MG/2 ML VIAL IV STA (21:37)
[2023-06-14] MEDS ORDERED: SODIUM CHLORIDE 0.9% 1,000 ML IV STA (21:37)
[2023-06-14] MEDS ORDERED: IPRATROPIUM-ALBUTEROL 3 ML NEB INHALATION STA (21:37)
--- NOTE | 2023-06-14 21:38 | ED ---
Chest Pain HPI - General Stated Complaint: Chest Pain Time Seen by Provider: 06/14/23 21:26 Source: RN notes reviewed, old records reviewed Mode of arrival: ambulatory Limitations: no limitations - History of Present Illness Initial Comments: This is a 52-year-old female to the ER today. Patient is known to this Hospital emergency room for evaluation. Patient comes in for evaluation of chest pain shortness of breath severely elevated blood pressure, feeling weak., Abdominal pain to her chest to her head and feels like pain similar to prior MIs in the past. Patient has some shortness of breath and believes she has some overall swelling that is new. Patient does admit to not being significantly compliant with her blood pressure medications. No recent travel history no sick contacts no fever cough or congestion. MD Complaint: chest pain -: hour(s) Onset: during rest, during exertion Pain Location: substernal, left chest Pain Radiation: none Severity: moderate Severity scale (1-10): 4 Quality: aching Consistency: intermittent Improves With: nothing Worsens With: nothing Context: recent illness Anginal Symptoms: nausea, dyspnea Other Symptoms: cough Treatments Prior to Arrival: none - Related Data On Oral Contraceptives: No Home Medications Medication Instructions Recorded Confirmed Aspirin EC [Ecotrin Low Dose] 81 mg PO DAILY 05/05/20 06/15/23 Atorvastatin [Lipitor] 80 mg PO HS 05/05/20 06/15/23 Ipratropium-Albuterol Nebulize 3 ml INHALATION RT-TID PRN 05/05/20 06/15/23 [Duoneb 0.5 mg-3 mg/3 ml Soln] Nitroglycerin Sl Tabs [Nitrostat] 0.4 mg SL Q5M PRN 05/05/20 06/15/23 Prasugrel [Effient] 10 mg PO DAILY 05/05/20 06/15/23 Cholecalciferol [Vitamin D3 (125 125 mcg PO DAILY 01/17/22 06/15/23 Mcg = 5000 Iu)] Isosorbide Mononitrate ER [Imdur] 15 mg PO DAILY 01/19/22 06/15/23 metFORMIN HCL [Glucophage] 1,000 mg PO DAILY 01/19/22 06/15/23 Lactulose [Constulose] 10 - 20 gm PO DAILY PRN 06/15/23 06/15/23 hydrALAZINE HCL [Apresoline] 100 mg PO DAILY 06/15/23 06/15/23 Previous Rx's Medication Instructions Recorded Famotidine [Pepcid] 20 mg PO DAILY #30 tablet 04/19/23 Lidocaine 5% Patch [Lidoderm 5% 1 patch TOPICAL DAILY #3 patch 04/19/23 Patch] Metoprolol Succinate [Toprol XL] 200 mg PO DAILY #30 tab 04/19/23 hydroCHLOROthiazide [Hydrodiuril] 25 mg PO DAILY #60 tab 04/19/23 Allergies Allergy/AdvReac Type Severity Reaction Status Date / Time peanut Allergy HIVES Verified 06/15/23 07:57 rice Allergy Rash/Hives Verified 06/15/23 07:57 seasonal Allergy Rash/Hives Uncoded 06/15/23 07:57 Review of Systems ROS Statement: Those systems with pertinent positive or pertinent negative responses have been documented in the HPI. ROS Other: All systems not noted in ROS Statement are negative. EKG Findings - EKG Comments: EKG Findings:: EKG is sinus 74 IL 155 QRS 106 QTc 411 Past Medical History Past Medical History: Asthma, COPD, Diabetes Mellitus, Hyperlipidemia, Hypertension, Myocardial Infarction ([place]), Musculoskeletal Disorder, Thyroid Disorder Additional Past Medical History / Comment(s): Back Pain, right shoulder pain, Hx Pituitary Tumor, BENIGN. Thyroid disorder. 3 heart attacks March 2022, 2 stents placed. left ear infection recently treated Last Myocardial Infarction Date:: 10/29/22 History of Any Multi-Drug Resistant Organisms: None Reported Past Surgical History: Section, Heart Catheterization With Stent, Tubal Ligation Additional Past Surgical History / Comment(s): Pituitary Tumor Removed. colonoscopy, PAIN CLINIC PROCEDURES Past Anesthesia/Blood Transfusion Reactions: No Reported Reaction Date of Last Stent Placement:: april 28 2020 Past Psychological History: Anxiety, Depression Smoking Status: Former smoker Past Alcohol Use History: None Reported Past Drug Use History: Marijuana - Past Family History Mother Family Medical History: Deep Vein Thrombosis (DVT) Additional Family Medical History / Comment(s): Mother is alive at age 67 with history of coronary artery disease and three-vessel CABG. Daughter(s) Family Medical History: Deep Vein Thrombosis (DVT) Additional Family Medical History / Comment(s): Patient has a total of 9 children with no major medical problems. Father Family Medical History: Cancer Additional Family Medical History / Comment(s): Father is alive with no history of coronary artery disease. History of Prostate Cancer Sister(s) Additional Family Medical History / Comment(s): The patient has 4 sisters and 1 brother. One sister had a myocardial infraction at age 40. General Exam General appearance: alert, in no apparent distress, anxious Head exam: Present: atraumatic, normocephalic, normal inspection Eye exam: Present: normal appearance, PERRL, EOMI. Absent: scleral icterus, conjunctival injection, periorbital swelling ENT exam: Present: normal exam, mucous membranes moist Neck exam: Present: normal inspection. Absent: tenderness, meningismus, lymphadenopathy Respiratory exam: Present: normal lung sounds bilaterally. Absent: respiratory distress, wheezes, rales, rhonchi, stridor Cardiovascular Exam: Present: regular rate, normal rhythm, normal heart sounds. Absent: systolic murmur, diastolic murmur, rubs, gallop, clicks GI/Abdominal exam: Present: soft, normal bowel sounds. Absent: distended, tenderness, guarding, rebound, rigid Extremities exam: Present: normal inspection, full ROM, normal capillary refill. Absent: tenderness, pedal edema, joint swelling, calf tenderness Back exam: Present: normal inspection Neurological exam: Present: alert, oriented X3, CN II-XII intact Psychiatric exam: Present: normal affect, normal mood Skin exam: Present: warm, dry, intact, normal color. Absent: rash Course Vital Signs 06/14/23 06/15/23 06/15/23 22:28 00:56 02:04 Temperature Pulse Rate 78 85 88 Pulse Rate [ Pulse Oximetery ] Respiratory 18 16 18 Rate Blood Pressure 219/103 162/100 154/77 Blood Pressure [Right Arm] O2 Sat by Pulse 100 100 100 Oximetry 06/15/23 06/15/23 06/15/23 05:18 08:03 08:04 Temperature 97.4 F L Pulse Rate 85 Pulse Rate [ 87 81 Pulse Oximetery ] Respiratory 18 18 Rate Blood Pressure 168/68 Blood Pressure 206/114 [Right Arm] O2 Sat by Pulse 100 100 Oximetry 06/15/23 06/15/23 06/15/23 11:09 14:02 16:32 Temperature 97.4 F L Pulse Rate Pulse Rate [ 81 81 66 Pulse Oximetery ] Respiratory 18 18 18 Rate Blood Pressure Blood Pressure 129/65 129/65 154/67 [Right Arm] O2 Sat by Pulse 100 100 100 Oximetry - Reevaluation(s) Reevaluation #1: 06/15/23 01:13 Record is reviewed Reevaluation #2: 06/15/23 01:13 Patient still feeling very weak here in the ER, resting, feels like she is swollen here and continues with chest pain Reevaluation #3: 06/15/23 01:13 Patient informed results questions answered Studies Chest x-ray interpreted by me is negative for acute disease Reevaluation #4: 06/14/23 22:47 Was pt. sent in by a medical professional or institution (, [facility], [employer], urgent care, hospital, or fci...) When possible be specific @ -no Did you speak to anyone other than the patient for history (EMS, parent, family, police, friend...)? What history was obtained from this source @ -no Did you review nursing and triage notes (agree or disagree)? Why? @ -agree Are old charts reviewed (outside hosp., previous admission, EMS record, old EKG, old radiological studies, urgent care reports/EKG's, fci records)? Report findings @ -yes Differential Diagnosis (chest pain, altered mental status, abdominal pain women, abdominal pain men, vaginal bleeding, weakness, fever, dyspnea, syncope, headache, dizziness, GI bleed, back pain, seizure, CVA, palpatations, mental health, musculoskeletal)? @ -prior EKG interpreted by me (3pts min.). @ -yes X-rays interpreted by me (1pt min.). @ -yes CT interpreted by me (1pt min.). @ -no U/S interpreted by me (1pt. min.). @ -no What testing was considered but not performed or refused? (CT, X-rays, U/S, labs)? Why? @ -none What meds were considered but not given or refused? Why? @ -none Did you discuss the management of the patient with other professionals (professionals i.e. [facility] [place], [employer], lab, RT, psych nurse, social worker aide, assistant professor of radiology, teacher, home lending officer, insurance case manager)? Give summary @ -no Was smoking cessation discussed for >3mins.? @ -no Was critical care preformed (if so, how long)? @ -no Were there social determinants of health that impacted care today? How? (Homelessness, low income, unemployed, alcoholism, drug addiction, transportation, low edu. Level, literacy, decrease access to med. care, intermediate, rehab)? @ -none Was there de-escalation of care discussed even if they declined (Discuss DNR or withdrawal of care, Hospice)? DNR status @ -no What co-morbidities impacted this encounter? (DM, HTN, Smoking, COPD, CAD, Cancer, CVA, ARF, Chemo, Hep., AIDS, mental health diagnosis, sleep apnea, morbid obesity)? @ -none Was patient admitted / discharged? Hospital course, mention meds given and route, prescriptions, significant lab abnormalities, going to OR and other p ertinent info. @ - 52 female to the emergency department for evaluation. Patient presents today for evaluation regards to chest pain uncontrolled blood pressure feeling ill weak and at times feels like his chest pain maybe similar prior [place]. Patient's still having chest pain throughout ER stay and will admit for cardiology to see with history of stent placement Admitted Undiagnosed new problem with uncertain prognosis? @ -no Drug Therapy requiring intensive monitoring for toxicity (Heparin, Nitro, Insulin, Cardizem)? @ -no Were any procedures done? @ -no Diagnosis/symptom? @ -Chest pain, ACS Acute, or Chronic, or Acute on Chronic? @ -Acute Uncomplicated (without systemic symptoms) or Complicated (systemic symptoms)? @ -Complicated Side effects of treatment? @ -no Exacerbation, Progression, or Severe Exacerbation? @ -exacerbation Poses a threat to life or bodily function? How? (Chest pain, [place], [place], pneumonia, PE, COPD, DKA, ARF, appy, cholecystitis, CVA, Diverticulitis, Homicidal, Suicidal, threat to staff... and all critical care pts) @ -yes if ACS Reevaluation #5: 06/15/23 01:13 Differential Chest Pain: Stable Angina, Unstable Angina, STEMI, NSTEMI Aortic Dissection, Pneumothorax, Musculoskeletal, Esophageal Spasm GERD, Cholecystitis, Pancreatitis, Zoster, this is not meant to be an all-inclusive list. - Consultations Consultation #1: Spoke with arvind who will admit this patient Chest Pain MDM - MDM 52 female to the emergency department for evaluation. Patient presents today for evaluation regards to chest pain uncontrolled blood pressure feeling ill weak and at times feels like his chest pain maybe similar prior [place]. Patient's still having chest pain throughout ER stay and will admit for cardiology to see with history of stent placement Disposition Clinical Impression: Chest pain, Hypertensive emergency Disposition: ADMITTED IP TO THIS HOSP Condition: Undetermined Is patient prescribed a controlled substance at d/c from ED?: No Time of Disposition: 01:00
--- NOTE | 2023-06-14 22:53 | XR ---
EXAMINATION TYPE: XR chest 1V portable DATE OF EXAM: 06/14/2023 10:48 PM COMPARISON: Chest radiographs from 04/16/2023 TECHNIQUE: XR chest 1V portable Portable AP radiograph of the chest. CLINICAL INDICATION:Female, 52 years old with history of cp; FINDINGS: Lungs/Pleura: There is no evidence of pleural effusion, focal consolidation, or pneumothorax. Bibasil ar linear atelectasis. Pulmonary vascularity: Unremarkable. Heart/mediastinum: Cardiomediastinal silhouette is prominent in size. Musculoskeletal: No acute osseous pathology. IMPRESSION: Bibasilar linear atelectasis without evidence for acute process.
[2023-06-15 00:06] LABS: ALT 27 U/L (4-34); AST 23 U/L (14-36); African American GFR (CKD) >90 (>60 ml/min/1.73 sqM); Albumin 3.4 g/dL (3.5-5.0); Alkaline Phosphatase 128 U/L (38-126); Anion Gap 4 mmol/L; Blood Urea Nitrogen 13 mg/dL (7-17); Calcium 9.4 mg/dL (8.4-10.2); Carbon Dioxide 28 mmol/L (22-30); Chloride 103 mmol/L (98-107); Glucose 214 mg/dL (74-99); Non-African American GFR(CKD) >90 (>60 ml/min/1.73 sqM); Potassium 3.8 mmol/L (3.5-5.1); Sodium 135 mmol/L (137-145); Total Bilirubin 0.5 mg/dL (0.2-1.3); Total Protein 6.4 g/dL (6.3-8.2)
[2023-06-15 00:13] LABS: Basophils % (A) 0 %; Eosinophils # (A) 0.3 k/uL (0-0.7); Eosinophils % (A) 4 %; HCT 35.3 % (34.0-46.0); HGB 11.9 gm/dL (11.4-16.0); INR 0.9 (<1.2); Lymphocytes # (A) 2.6 k/uL (1.0-4.8); Lymphocytes % (A) 33 %; MCH 29.7 pg (25.0-35.0); MCHC 33.7 g/dL (31.0-37.0); MCV 88.2 fL (80.0-100.0); Mean Platelet Volume 7.7; Monocytes # (A) 0.3 k/uL (0-1.0); Monocytes % (A) 4 %; Neutrophils # (A) 4.5 k/uL (1.3-7.7); Neutrophils % (A) 57 %; Partial Thromboplastin Time 23.1 sec (22.0-30.0); Platelet Count 203 k/uL (150-450); RDW 13.1 % (11.5-15.5); WBC 7.9 k/uL (3.8-10.6)
[2023-06-15 00:15] LABS: NT-Pro-B-Type Natriuretic Pept 228 pg/mL
[2023-06-15] MEDS ORDERED: ONDANSETRON 4 MG/2 ML VIAL IVP PRN (01:10)
[2023-06-15] MEDS ORDERED: NALOXONE 0.4 MG/ML 1 ML VIAL IV PRN (01:10)
[2023-06-15] MEDS ORDERED: MORPHINE SULFATE 4 MG/ML SYRINGE IV PRN (01:10)
[2023-06-15] MEDS ORDERED: LABETALOL 5 MG/ML VIAL MDV IVP STA (01:11)
[2023-06-15 02:05] VITALS: RESP 18
[2023-06-15] MEDS ORDERED: DEXTROSE 50% SYRINGE 50 ML IVP PRN ×2 (02:41)
--- NOTE | 2023-06-15 03:06 | P.HPIM ---
History of Present Illness H&P Date: 06/15/23 Chief Complaint: Chest pain 52-year-old female with diabetes mellitus hypertension For the past day or 2 she's been having some retrosternal chest pain radiating to the left side rated 5 out of 10 in severity , she admits to being non compliant with her medications feeling nauseous no vomiting having a lot of acid reflux symptoms with epigastric pain denies any bleeding denies any fevers denies any chills denies any coughing no GI bleeding. She feels short of breath extremely tired and weak. She is a reporting some headache no use in her vision or hearing no other focal neuro deficits She reports that the symptoms feel similar to her prior history of heart attack she admits to not being very compliant with her medications no recent changes in her meds , she denies any smoking , or heavy alcohol , she admits to marijuana. she feels puffy over her face and the rest of her body review of systems Pertinent positives as noted in HPI. All other systems were reviewed and are negative on exam Constitutional: No acute distress, conversant, pleasant Eyes: Anicteric sclerae, moist conjunctiva, Pupils equal round reactive to light ENMT: NC/AT Oropharynx clear, no erythema, or exudates Neck: Supple, no masses, or JVD No carotid bruits No thyromegaly Lungs: Clear to auscultation Clear to percussion Normal respiratory effort, no accessory muscle use Cardiovascular: Heart regular in rate and rhythm, No murmurs, gallops, or rubs No peripheral edema Abdominal: Soft Nontender, no guarding, rebound or rigidity Abdomen moving with respiration Normoactive bowel sounds No hepatomegaly, No splenomegaly No palpable mass No abdominal wall hernia noted Extremities: No digital cyanosis No clubbing Pedal pulses intact and symmetrical Radial pulses intact and symmetrical No calf tenderness Psychiatric: Alert and oriented to person, place and time Appropriate affect fair judgement Neuro Muscles Strength 5/5 in all 4 extremities Sensation to light touch grossly present throughout Cranial nerves II-XII grossly intact Lymphatics: no palpable cervical or supraclavicular lymph nodes Past Medical History Past Medical History: Asthma, COPD, Diabetes Mellitus, Hyperlipidemia, Hypertension, Myocardial Infarction ([place]), Musculoskeletal Disorder, Thyroid Diso rder Additional Past Medical History / Comment(s): Back Pain, right shoulder pain, Hx Pituitary Tumor, BENIGN. Thyroid disorder. 3 heart attacks March 2022, 2 stents placed. left ear infection recently treated Last Myocardial Infarction Date:: 10/29/22 History of Any Multi-Drug Resistant Organisms: None Reported Past Surgical History: Section, Heart Catheterization With Stent, Tubal Ligation Additional Past Surgical History / Comment(s): Pituitary Tumor Removed. colonoscopy, PAIN CLINIC PROCEDURES Past Anesthesia/Blood Transfusion Reactions: No Reported Reaction Date of Last Stent Placement:: april 28 2020 Past Psychological History: Anxiety, Depression Smoking Status: Former smoker Past Alcohol Use History: None Reported Past Drug Use History: Marijuana - Past Family History Mother Family Medical History: Deep Vein Thrombosis (DVT) Additional Family Medical History / Comment(s): Mother is alive at age 67 with history of coronary artery disease and three-vessel CABG. Daughter(s) Family Medical History: Deep Vein Thrombosis (DVT) Additional Family Medical History / Comment(s): Patient has a total of 9 children with no major medical problems. Father Family Medical History: Cancer Additional Family Medical History / Comment(s): Father is alive with no history of coronary artery disease. History of Prostate Cancer Sister(s) Additional Family Medical History / Comment(s): The patient has 4 sisters and 1 brother. One sister had a myocardial infraction at age 40. Medications and Allergies Home Medications Medication Instructions Recorded Confirmed Type Aspirin EC [Ecotrin Low Dose] 81 mg PO DAILY 05/05/20 04/16/23 History Atorvastatin [Lipitor] 80 mg PO HS 05/05/20 04/16/23 History Ipratropium-Albuterol Nebulize 3 ml INHALATION RT-TID PRN 05/05/20 04/16/23 History [Duoneb 0.5 mg-3 mg/3 ml Soln] Nitroglycerin Sl Tabs [Nitrostat] 0.4 mg SL Q5M PRN 05/05/20 04/16/23 History Prasugrel [Effient] 10 mg PO DAILY 05/05/20 04/16/23 History Cholecalciferol [Vitamin D3 (125 125 mcg PO DAILY 01/17/22 04/16/23 History Mcg = 5000 Iu)] Isosorbide Mononitrate ER [Imdur] 15 mg PO DAILY 01/19/22 04/16/23 History metFORMIN HCL [Glucophage] 1,000 mg PO BID 01/19/22 04/16/23 History Ezetimibe [Zetia] 10 mg PO DAILY 90 Days #90 tab 03/30/22 04/16/23 Rx Dapagliflozin Propanediol [Farxiga] 10 mg PO DAILY #30 tab 04/19/23 Rx Famotidine [Pepcid] 20 mg PO DAILY #30 tablet 04/19/23 Rx Lidocaine 5% Patch [Lidoderm 5% 1 patch TOPICAL DAILY #3 patch 04/19/23 Rx Patch] Losartan [Cozaar] 100 mg PO DAILY #120 tab 04/19/23 Rx Metoprolol Succinate [Toprol XL] 200 mg PO DAILY #30 tab 04/19/23 Rx Sennosides-Docusate Sodium 1 each PO BID 14 Days #30 tab 04/19/23 Rx [Senokot-S] hydrALAZINE HCL [Apresoline] 100 mg PO TID #90 tablet 04/19/23 Rx hydroCHLOROthiazide [Hydrodiuril] 25 mg PO DAILY #60 tab 04/19/23 Rx Allergies Allergy/AdvReac Type Severity Reaction Status Date / Time peanut Allergy HIVES Verified 04/16/23 22:40 rice Allergy Rash/Hives Verified 04/16/23 22:40 seasonal Allergy Rash/Hives Uncoded 04/16/23 22:40 Physical Exam Vitals: Vital Signs Pulse Resp BP Pulse Ox 06/15/23 02:04 88 18 154/77 100 06/15/23 00:56 85 16 162/100 100 06/14/23 22:28 78 18 219/103 100 Intake and Output 06/14/23 06/14/23 06/15/23 14:59 22:59 06:59 Other: Weight 81.647 kg Results CBC & Chem 7: 06/14/23 23:35 06/14/23 23:35 Labs: Abnormal Lab Results - Last 24 Hours (Table) 06/14/23 Range/Units 23:35 Sodium 135 L (137-145) mmol/L Creatinine 0.51 L (0.52-1.04) mg/dL Glucose 214 H (74-99) mg/dL Alkaline Phosphatase 128 H (38-126) U/L Albumin 3.4 L (3.5-5.0) g/dL Assessment and Plan Assessment: 52 year old female with CAD s/p stent , hypertension , coming in for left sided chest pain , headache and uncontrolled BP, I discussed the case with ED doc and I accepted the admission for hypertensive emergency to rule out underlying ACS with anticipated length of stay > 2 midnights hypertensive emergency atypical chest pain rn cardiac trops negative EKG NSR no acute ST changes CXR showed atelactesis no other acute process. cardiology consult resume cardiac meds rest of her blood work unremarkable Hgb 11.9, WBC 7.9 BUN 13 cr 0.51 K 3.8 resume atorvastatin , zetia , aspirin and effient resume metoprolol losartan , imdur and hydralazine and HCTz DM insulin sliding scale hold oral hypoglycemic agents GERD PPI daily Maalox PRN full code DVT PPX heparin sc tid
[2023-06-15] MEDS ORDERED: MAG HYDROX/AL HYDROX/SIMETH 30 ML CUP PO PRN (03:28)
[2023-06-15] MEDS ORDERED: PANTOPRAZOLE 40 MG TABLET PO SCH (07:30)
[2023-06-15] MEDS: HEPARIN SODIUM,PORCINE 5,000 UNIT/ML 1 ML VIAL SQ SCH ×2 (08:44→16:35)
[2023-06-15] MEDS ORDERED: METOPROLOL SUCCINATE (ER) 100 MG TAB.ER.24H PO SCH (09:00)
[2023-06-15] MEDS ORDERED: ASPIRIN 81 MG PO SCH (09:00)
[2023-06-15] MEDS ORDERED: hydroCHLOROthiazide 25 MG TAB PO SCH (09:00)
[2023-06-15] MEDS ORDERED: FAMOTIDINE 20 MG TAB PO SCH (09:00)
[2023-06-15] MEDS ORDERED: hydrALAZINE HCL 50 MG TAB PO SCH (09:00)
[2023-06-15] MEDS ORDERED: EZETIMIBE 10 MG TAB PO SCH (09:00)
[2023-06-15] MEDS ORDERED: LOSARTAN 50 MG TAB PO SCH (09:00)
[2023-06-15] MEDS ORDERED: ISOSORBIDE MONONITRATE ER 15 MG TAB PO SCH (09:00)
[2023-06-15] MEDS ORDERED: PRASUGREL 10 MG TAB PO SCH (09:00)
[2023-06-15] MEDS: INSULIN ASPART (NovoLOG) 100 UNIT/ML VIAL SQ SCH ×3 (09:13→16:35)
[2023-06-15] MEDS ORDERED: NIFEdipine XL 90 MG TAB.ER.24 PO SCH (09:45)
[2023-06-15] MEDS ORDERED: ISOSORBIDE MONONITRATE ER 15 MG TAB PO ONE (09:45)
[2023-06-15] MEDS ORDERED: ISOSORBIDE MONONITRATE ER 30 MG TAB.ER.24H PO SCH (09:45)
[2023-06-15] MEDS ORDERED: LIDOCAINE 5% PATCH TOPICAL SCH (09:45)
[2023-06-15 10:41] VITALS: TEMP 97.4
--- NOTE | 2023-06-15 11:55 | P.CRDCN ---
History of Present Illness History of present illness: HISTORY OF PRESENT ILLNESS: This is a 52-year-old female with a past medical history significant for coronary artery disease with previous angioplasty of the LAD and OM, hypertension, and hyperlipidemia. Patient follows in the office with Dr. Ojeda. We have been asked to see the patient in consultation for chest pain and hypertension. Patient examined at the bedside. * EKG reveals sinus mechanism with no signs of acute ischemia * Chest xray bibasilar linear atelectasis without evidence for acute process * Laboratory data: WBC 7.9. Hemoglobin 11.9. Platelet count 203. Sodium 135. Potassium 3.8. BUN 13. Creatinine 0.51. Troponin negative 2. ProBNP 228. * Current home cardiac medications include aspirin 81 mg daily, Lipitor 80 mg at night, metoprolol succinate 200 mg daily, hydralazine 100 mg daily, Imdur 15 mg daily, hydrochlorothiazide 25 mg daily, and Effient 10mg daily * Most recent echocardiogram obtained in March 2023 revealed normal LV size and systolic function, moderate LVH, mild mitral regurgitation, mild tricuspid regurgitation. * Patient underwent dobutamine stress test in May 2022 which was negative for ischemia * Cardiac catheterization history: March 2022 with angioplasty and stenting of large obtuse marginal branch with a drug-eluting stent REVIEW OF SYSTEMS: At the time of my exam: CONSTITUTIONAL: Denies fever or chills. HEENT: Denies blurred vision, vision changes, or eye pain. Denies hemoptysis CARDIOVASCULAR: Denies chest pain. Denies orthopnea. Denies PND. Denies palpitations RESPIRATORY: Denies shortness of breath. GASTROINTESTINAL: Denies abdominal pain. Denies nausea or vomiting. HEMATOLOGIC: Denies bleeding disorders. GENITOURINARY: Denies any blood in urine. SKIN: Denies pruitis. Denies rash. PHYSICAL EXAM: VITAL SIGNS: Reviewed. GENERAL: Well-developed in no acute distress. HEENT: Head is normocephalic. Pupils are equal, round. Sclerae anicteric. Mucous membranes of the mouth are moist. Neck supple. No JVD or thyromegaly LUNGS: Respirations even and unlabored. Lungs essentially clear to auscultation bilaterally. HEART: Regular rate and rhythm. S1 and S2 heard. ABDOMEN: Soft. Nondistended. Nontender. EXTREMITIES: Normal range of motion. No clubbing or cyanosis. Peripheral pulses intact. No lower extremity edema NEUROLOGIC: Awake and alert. Oriented x 3. ASSESSMENT: Chest pain, likely secondary to uncontrolled hypertension Hypertensive emergency Coronary artery disease with previous stenting of LAD and OM Hypertension Hyperlipidemia Diabetes Morbid obesity, BMI 39.0 Medication noncompliance PLAN: An acute coronary event has been ruled out Discontinue Effient as PCI was in March 2022 Add Losartan 50mg daily Increase Imdur to 30mg daily Add Aldactone 12.5mg daily. Likely increase to 25mg daily tomorrow Continue to monitor blood pressure Add Lidocaine patch for pain Further recommendations pending patient course Nurse practitioner note has been reviewed by physician. Signing provider agrees with the documented findings, assessment, and plan of care. Past Medical History Past Medical History: Asthma, COPD, Diabetes Mellitus, Hyperlipidemia, Hypertension, Myocardial Infarction ([place]), Musculoskeletal Disorder, Thyroid Disorder Additional Past Medical History / Comment(s): Back Pain, right shoulder pain, Hx Pituitary Tumor, BENIGN. Thyroid disorder. 3 heart attacks March 2022, 2 dana nts placed. left ear infection recently treated Last Myocardial Infarction Date:: 10/29/22 History of Any Multi-Drug Resistant Organisms: None Reported Past Surgical History: Section, Heart Catheterization With Stent, Tubal Ligation Additional Past Surgical History / Comment(s): Pituitary Tumor Removed. colonoscopy, PAIN CLINIC PROCEDURES Past Anesthesia/Blood Transfusion Reactions: No Reported Reaction Date of Last Stent Placement:: april 28 2020 Past Psychological History: Anxiety, Depression Smoking Status: Former smoker Past Alcohol Use History: None Reported Past Drug Use History: Marijuana - Past Family History Mother Family Medical History: Deep Vein Thrombosis (DVT) Additional Family Medical History / Comment(s): Mother is alive at age 67 with history of coronary artery disease and three-vessel CABG. Daughter(s) Family Medical History: Deep Vein Thrombosis (DVT) Additional Family Medical History / Comment(s): Patient has a total of 9 children with no major medical problems. Father Family Medical History: Cancer Additional Family Medical History / Comment(s): Father is alive with no history of coronary artery disease. History of Prostate Cancer Sister(s) Additional Family Medical History / Comment(s): The patient has 4 sisters and 1 brother. One sister had a myocardial infraction at age 40. Medications and Allergies Home Medications Medication Instructions Recorded Confirmed Type Aspirin EC [Ecotrin Low Dose] 81 mg PO DAILY 05/05/20 06/15/23 History Atorvastatin [Lipitor] 80 mg PO HS 05/05/20 06/15/23 History Ipratropium-Albuterol Nebulize 3 ml INHALATION RT-TID PRN 05/05/20 06/15/23 History [Duoneb 0.5 mg-3 mg/3 ml Soln] Nitroglycerin Sl Tabs [Nitrostat] 0.4 mg SL Q5M PRN 05/05/20 06/15/23 History Prasugrel [Effient] 10 mg PO DAILY 05/05/20 06/15/23 History Cholecalciferol [Vitamin D3 (125 125 mcg PO DAILY 01/17/22 06/15/23 History Mcg = 5000 Iu)] Isosorbide Mononitrate ER [Imdur] 15 mg PO DAILY 01/19/22 06/15/23 History metFORMIN HCL [Glucophage] 1,000 mg PO DAILY 01/19/22 06/15/23 History Famotidine [Pepcid] 20 mg PO DAILY #30 tablet 04/19/23 06/15/23 Rx Lidocaine 5% Patch [Lidoderm 5% 1 patch TOPICAL DAILY #3 patch 04/19/23 06/15/23 Rx Patch] Metoprolol Succinate [Toprol XL] 200 mg PO DAILY #30 tab 04/19/23 06/15/23 Rx hydroCHLOROthiazide [Hydrodiuril] 25 mg PO DAILY #60 tab 04/19/23 06/15/23 Rx Lactulose [Constulose] 10 - 20 gm PO DAILY PRN 06/15/23 06/15/23 History hydrALAZINE HCL [Apresoline] 100 mg PO DAILY 06/15/23 06/15/23 History Allergies Allergy/AdvReac Type Severity Reaction Status Date / Time peanut Allergy HIVES Verified 06/15/23 07:57 rice Allergy Rash/Hives Verified 06/15/23 07:57 seasonal Allergy Rash/Hives Uncoded 06/15/23 07:57 Physical Exam Vitals: Vital Signs Pulse Resp BP Pulse Ox 06/15/23 05:18 85 168/68 100 06/15/23 02:04 88 18 154/77 100 06/15/23 00:56 85 16 162/100 100 06/14/23 22:28 78 18 219/103 100 Intake and Output 06/14/23 06/14/23 06/15/23 14:59 22:59 06:59 Other: Weight 81.647 kg Results 06/14/23 23:35 06/14/23 23:35 Cardiac Enzymes 06/14/23 06/14/23 Range/Units 23:35 23:35 AST 23 (14-36) U/L Troponin I <0.012 (0.000-0.034) ng/mL Coagulation 06/14/23 Range/Units 23:35 PT 10.0 (9.0-12.0) sec APTT 23.1 (22.0-30.0) sec CBC 06/14/23 Range/Units 23:35 WBC 7.9 (3.8-10.6) k/uL RBC 4.00 (3.80-5.40) m/uL Hgb 11.9 (11.4-16.0) gm/dL Hct 35.3 (34.0-46.0) % Plt Count 203 (150-450) k/uL Comprehensive Metabolic Panel 06/14/23 Range/Units 23:35 Sodium 135 L (137-145) mmol/L Potassium 3.8 (3.5-5.1) mmol/L Chloride 103 (98-107) mmol/L Carbon Dioxide 28 (22-30) mmol/L BUN 13 (7-17) mg/dL Creatinine 0.51 L (0.52-1.04) mg/dL Glucose 214 H (74-99) mg/dL Calcium 9.4 (8.4-10.2) mg/dL AST 23 (14-36) U/L ALT 27 (4-34) U/L Alkaline Phosphatase 128 H (38-126) U/L Total Protein 6.4 (6.3-8.2) g/dL Albumin 3.4 L (3.5-5.0) g/dL Current Medications Generic Name Dose Route Start Last Admin Trade Name Freq PRN Reason Stop Dose Admin Al Hydroxide/Mg Hydroxide 30 ml 06/15/23 03:28 Mag Hydrox/Al Hydrox/Simeth 30 Ml Cup PO Q4HR PRN GI Upset Aspirin 81 mg 06/15/23 09:00 Aspirin 81 Mg PO DAILY [facility] Atorvastatin Calcium 80 mg 06/15/23 21:00 Atorvastatin 80 Mg Tab PO HS [facility] Dextrose/Water 25 ml 06/15/23 02:41 Dextrose 50% Syringe 50 Ml IVP PER PROTOCOL PRN Hypoglycemia Protocol Dextrose/Water 50 ml 06/15/23 02:41 Dextrose 50% Syringe 50 Ml IVP PER PROTOCOL PRN Hypoglycemia Protocol Ezetimibe 10 mg 06/15/23 09:00 Ezetimibe 10 Mg Tab PO DAILY [facility] Famotidine 20 mg 06/15/23 09:00 Famotidine 20 Mg Tab PO DAILY [facility] Heparin Sodium (Porcine) 5,000 unit 06/15/23 08:00 Heparin Sodium,Porcine 5,000 Unit/Ml 1 Ml Vial SQ Q8HR [facility] Hydralazine HCl 100 mg 06/15/23 09:00 Hydralazine Hcl 50 Mg Tab PO TID [facility] Hydrochlorothiazide 25 mg 06/15/23 09:00 Hydrochlorothiazide 25 Mg Tab PO DAILY [facility] Insulin Aspart 0 unit 06/15/23 07:30 Insulin Aspart (Novolog) 100 Unit/Ml Vial SQ ACHS [facility] Protocol Isosorbide Mononitrate 15 mg 06/15/23 09:00 Isosorbide Mononitrate Er 15 Mg Tab PO DAILY [facility] Losartan Potassium 100 mg 06/15/23 09:00 Losartan 50 Mg Tab PO DAILY [facility] Metoprolol Succinate 200 mg 06/15/23 09:00 Metoprolol Succinate (Er) 100 Mg Tab.Er.24h PO DAILY [facility] Morphine Sulfate 4 mg 06/15/23 01:10 Morphine Sulfate 4 Mg/Ml Syringe IV Q4HR PRN Severe Pain (Scale 7 to 10) Naloxone HCl 0.2 mg 06/15/23 01:10 Naloxone 0.4 Mg/Ml 1 Ml Vial IV Q2M PRN Opioid Reversal Ondansetron HCl 4 mg 06/15/23 01:10 Ondansetron 4 Mg/2 Ml Vial IVP Q8HR PRN Nausea And Vomiting Pantoprazole Sodium 40 mg 06/15/23 07:30 Pantoprazole 40 Mg Tablet PO AC-BRKFST [facility] Prasugrel 10 mg 06/15/23 09:00 Prasugrel 10 Mg Tab PO DAILY [facility] Intake and Output 06/14/23 06/14/23 06/15/23 14:59 22:59 06:59 Other: Weight 81.647 kg Patient Weight 06/15/23 06:59 Weight 81.647 kg 06/14/23 23:35 06/14/23 23:35
[2023-06-15 16:39] VITALS: BP 154/67; PULSE 66
[2023-06-15] MEDS ORDERED: ATORVASTATIN 80 MG TAB PO SCH (21:00)
[2023-06-16] MEDS ORDERED: LOSARTAN 50 MG TAB PO SCH (09:00)
[2023-06-16] MEDS ORDERED: hydrALAZINE HCL 50 MG TAB PO SCH (09:00)
[2023-06-16] MEDS ORDERED: ISOSORBIDE MONONITRATE ER 30 MG TAB.ER.24H PO SCH (09:00)
[2023-06-16] MEDS ORDERED: SPIRONOLACTONE 25 MG TAB PO SCH (09:00)
--- NOTE | 2023-06-16 15:10 | P.DS ---
Providers Date of admission: 06/15/23 01:10 Expected date of discharge: 06/15/23 Attending physician: Helen Clayton MD Consults: 06/15/23 01:10 Consult Physician Routine Consulting Provider: Eliana Rose Consult Reason/Comments: CP,HTN Do you want consulting provider notified?: Yes Primary care physician: [facility] Course: Patient left AMA. Patient Condition at Discharge: Undetermined Plan - Discharge Summary Discharge Rx Participant: No New Discharge Prescriptions: No Action Prasugrel [Effient] 10 mg PO DAILY Nitroglycerin Sl Tabs [Nitrostat] 0.4 mg SL Q5M PRN PRN Reason: Chest Pain Ipratropium-Albuterol Nebulize [Duoneb 0.5 mg-3 mg/3 ml Soln] 3 ml INHALATION RT-TID PRN PRN Reason: Shortness Of Breath Atorvastatin [Lipitor] 80 mg PO HS Aspirin EC [Ecotrin Low Dose] 81 mg PO DAILY Isosorbide Mononitrate ER [Imdur] 15 mg PO DAILY hydroCHLOROthiazide [Hydrodiuril] 25 mg PO DAILY #60 tab Lidocaine 5% Patch [Lidoderm 5% Patch] 1 patch TOPICAL DAILY #3 patch hydrALAZINE HCL [Apresoline] 100 mg PO DAILY Lactulose [Constulose] 10 - 20 gm PO DAILY PRN PRN Reason: Constipation Cholecalciferol [Vitamin D3 (125 Mcg = 5000 Iu)] 125 mcg PO DAILY metFORMIN HCL [Glucophage] 1,000 mg PO DAILY Famotidine [Pepcid] 20 mg PO DAILY #30 tablet Metoprolol Succinate [Toprol XL] 200 mg PO DAILY #30 tab Discharge Medication List Aspirin EC [Ecotrin Low Dose] 81 mg PO DAILY 05/05/20 [History] Atorvastatin [Lipitor] 80 mg PO HS 05/05/20 [History] Ipratropium-Albuterol Nebulize [Duoneb 0.5 mg-3 mg/3 ml Soln] 3 ml INHALATION RT-TID PRN 05/05/20 [History] Nitroglycerin Sl Tabs [Nitrostat] 0.4 mg SL Q5M PRN 05/05/20 [History] Prasugrel [Effient] 10 mg PO DAILY 05/05/20 [History] Cholecalciferol [Vitamin D3 (125 Mcg = 5000 Iu)] 125 mcg PO DAILY 01/17/22 [History] Isosorbide Mononitrate ER [Imdur] 15 mg PO DAILY 01/19/22 [History] metFORMIN HCL [Glucophage] 1,000 mg PO DAILY 01/19/22 [History] Famotidine [Pepcid] 20 mg PO DAILY #30 tablet 04/19/23 [Rx] Lidocaine 5% Patch [Lidoderm 5% Patch] 1 patch TOPICAL DAILY #3 patch 04/19/23 [Rx] Metoprolol Succinate [Toprol XL] 200 mg PO DAILY #30 tab 04/19/23 [Rx] hydroCHLOROthiazide [Hydrodiuril] 25 mg PO DAILY #60 tab 04/19/23 [Rx] Lactulose [Constulose] 10 - 20 gm PO DAILY PRN 06/15/23 [History] hydrALAZINE HCL [Apresoline] 100 mg PO DAILY 06/15/23 [History] Follow up Appointment(s)/Referral(s): Gabriela Urban NPC [Primary Care Provider] - 1-2 days Discharge Disposition: LEFT AGAINST MEDICAL ADVICE
== END 2023-06-15 17:47 | disposition left against medical advice (07) ==
LOC: EC 21:25 → 3SCARD 06-15 01:10
PROVIDERS: ADMIT Internal Medicine; ATTEND Internal Medicine
DX: R07.89 Other chest pain (principal); Z53.29 Procedure and treatment not carried out because of patient's decision for other reasons; I16.1 Hypertensive emergency; I25.10 Atherosclerotic heart disease of native coronary artery without angina pectoris; Z95.5 Presence of coronary angioplasty implant and graft; I10 Essential (primary) hypertension; E78.5 Hyperlipidemia, unspecified; E11.9 Type 2 diabetes mellitus without complications; E66.01 Morbid (severe) obesity due to excess calories; Z68.39 Body mass index [BMI] 39.0-39.9, adult; Z91.148 Patient's other noncompliance with medication regimen for other reason; R11.0 Nausea; R53.1 Weakness; R51.9 Headache, unspecified; I25.2 Old myocardial infarction; K21.9 Gastro-esophageal reflux disease without esophagitis; J44.9 Chronic obstructive pulmonary disease, unspecified; E07.9 Disorder of thyroid, unspecified; F32.A Depression, unspecified; F41.9 Anxiety disorder, unspecified; Z79.82 Long term (current) use of aspirin; Z79.899 Other long term (current) drug therapy; Z79.02 Long term (current) use of antithrombotics/antiplatelets; Z79.84 Long term (current) use of oral hypoglycemic drugs; J30.2 Other seasonal allergic rhinitis; Z91.010 Allergy to peanuts; Z91.018 Allergy to other foods; Z87.891 Personal history of nicotine dependence; Z82.49 Family history of ischemic heart disease and other diseases of the circulatory system; Z83.2 Family history of diseases of the blood and blood-forming organs and certain disorders involving the immune mechanism
CPT/HCPCS: 96376; 96372; 96374; 96375 ×2; 99285; 36415; 93005; 83880; 80053; 84484 ×2; 85025; 85610; 85730; 83036; 71045; G0378; J2270 ×2; J1644; J2930; J1885; J1920

== ENCOUNTER → 2023-10-25 | Outpatient (CLI) | payer OTHER ==
[~2023-10-25] MED LIST changes: -LACTATED RINGERS 1,000 ML IV SCH; -LIDOCAINE 1% (10MG/ML) FOR IV START INTRADERMA PRN; +REGADENOSON 0.4 MG/5 ML SYRINGE IV PRN
--- NOTE | 2023-10-25 11:55 | CA ---
Exercise Stress Test Report Name: Eleazar Balbuena Exam Date: 10/25/2023 09:48 Exam Location: [facility] Stress Ht (in): 57 Wt (lb): 167 BSA: 1.67 Ordering Phys: Will Ojeda MD Referring Phys: Gabriela Urban Technologist: LEO LOPES Age: 52 Gender: F : 1970 Procedure CPT: Indications: R07.9 CHEST PAIN I25.10 HEART DISEASE ICD-10 Codes: Patient History: CHEST PAIN, DEEP, PALPITATIONS, NUMBNESS FACE/NECK, HTN, DIABETES, ELEVATED CHOLESTEROL LEVELS, FAMILY HX OF HEART DISEASE, FORMER SMOKER, PRIOR SD, PRIOR CATH WITH STENTING X 3, COPD, ASTHMA Medications: Meds past 24 hrs: Pretest Chest Pain: STRESS TEST Persantine Protocol Exercise Duration (min:sec): 02:[address] Depressions (mm): Angina Score: Mccauley Score: Resting HR (bpm): 87 Peak HR (bpm): 118 Resting BP (mmHg): 203 / 100 Peak BP (mmHg): 212 / 101 MPHR: 170 Target HR: 145 % MPHR: 69 METS: 1.0 Total Dose: Peak Dose: Atropine: Double Product: 46504 BP Response: Stress Termination: INFUSION COMPLETE Stress Symptoms: CHEST PAIN,DIFFICULTY IN BREATHING Stress Summary: ECG ANALYSIS Resting ECG: Stress ECG: CONCLUSIONS Baseline EKG revealed a normal sinus rhythm without significant ST-T changes. Patient was hypertensive to begin with. With Lexiscan mentation as per protocol the heart rate went up from 80-115 bpm and the blood pressure changed from 198/100-161/79. Patient complained of chest pressure requiring sublingual nitroglycerin EKG did not reveal any ST segment changes to indicate ischemia. Patient's chest pain was subjective without any ST segment changes or arrhythmia. This is a technically a unremarkable stress test by EKG criteria but the nuclear scan results which are more pertinent will be reported by the radiologist. Patient resumed her medications before the procedure and was advised to be compliant with medications. Dr. Will Ojeda MD (Electronically Signed) Final Date: 25 October 2023 11:54
--- NOTE | 2023-10-25 12:17 | NM ---
EXAMINATION TYPE: NM stress lexiscan cardiolite DATE OF EXAM: 10/25/2023 COMPARISON: NONE HISTORY: Heart disease chest pain TECHNIQUE: After the intravenous administration of 10.4 mCi Tc 99m Sestamibi - Cardiolite resting SP ECT images acquired 60 minutes post injection. At peak stress 25.9 mCi Tc 99m Sestamibi - Stress images obtained 60 minutes post injection The patient was stressed with 0.4mg Lexiscan. FINDINGS: There is a large defect along the anterior wall and stress images. This has more normal anisa earance on the resting images. Stress-induced ischemic changes suspected. This matches the polar maps . There is a persistent anterior septal defect present may be a prior infarct.. Mild diminished wall motion of the anterior lateral wall may be present. Ejection fraction is calculated to be 71 %. IMPRESSION: 1. Large stress-induced ischemic change through the anterior wall of the cardiac base to the cardiac apex. Correlate for stress-induced ischemic change. Correlate with EKG changes. 2. 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
== END | disposition home or self-care (01) ==
LOC: RADNMMAIN 07:35
PROVIDERS: ATTEND Internal Medicine Interventional Cardiology
DX: I25.10 Atherosclerotic heart disease of native coronary artery without angina pectoris (principal); R07.9 Chest pain, unspecified
CPT/HCPCS: 93017; 78452; A9500; J2785

== ENCOUNTER → 2023-11-20 | Outpatient (CLI) | payer OTHER ==
--- NOTE | 2023-11-21 07:29 | US ---
EXAMINATION TYPE: US pelvis complete transvag DATE OF EXAM: 11/20/2023 COMPARISON: NONE CLINICAL INDICATION: Female, 52 years old with history of N95.0 POSTMENOPAUSAL BLEEDING; LMP x >10 ye ars ago. Episode of spotting. TECHNIQUE: Transvaginal (TV) and Transabdominal (TA) . Transabdominal sonographic images of the pel vis were acquired. Transvaginal sonographic images were medically necessary to better assess the fol lowing anatomy: Endometrium, ovaries Date of LMP: >10 years ago, EXAM MEASUREMENTS: Uterus: 10.1 x 4.8 x 4.2 cm Endometrial Stripe: 0.4 cm Left Ovary: 2.6 x 1.4 x 1.4 cm 1. Uterus: Anteverted Heterogenous. Focal hypoechoic lesion = 2.5 x 2.5 x 2.7 cm. Slightly enlarg ed in size. 2. Endometrium: limited visualization 3. Right Ovary: Obscured by overlying bowel gas 4. Left Ovary: follicle seen = 1.3 cm 5. Bilateral Adnexa: wnl 6. Posterior cul-de-sac: no free fluid IMPRESSION: 1. Mild uterine enlargement with underlying leiomyomatous change. 2. Left ovarian follicle noted.
== END | disposition home or self-care (01) ==
LOC: RADUSWWP 15:36
PROVIDERS: ATTEND Obstetrics & Gynecology
DX: N85.2 Hypertrophy of uterus (principal); N95.0 Postmenopausal bleeding; N83.8 Other noninflammatory disorders of ovary, fallopian tube and broad ligament
CPT/HCPCS: 76830; 76856

== ENCOUNTER 2023-12-01 20:42 | Observation (INO) | payer OTHER ==
--- NOTE | 2023-12-01 21:14 | ED ---
Chest Pain HPI - General Chief Complaint: Chest Pain Stated Complaint: Hypertension Time Seen by Provider: 12/01/23 20:54 Source: patient, EMS Mode of arrival: EMS Limitations: no limitations - History of Present Illness Initial Comments: This patient is a 53-year-old woman who presents to have evaluation for a number of symptoms. Patient states that she has been having pain in the left chest and the left side of her abdomen. She has had symptoms going back a number of days up to a week. She states that they got worse tonight probably a couple of hours ago. She has not noted an exertional component. She has not noted worsening or relieving factors. She has had some associated headache. No diaphoresis, dyspnea, vomiting. MD Complaint: chest pain -: hour(s) Onset: during rest Pain Location: left chest Pain Radiation: none Severity: severe Quality: aching Consistency: constant Improves With: nothing Worsens With: nothing - Related Data Home Medications Medication Instructions Recorded Confirmed Aspirin EC [Ecotrin Low Dose] 81 mg PO DAILY 05/05/20 06/15/23 Atorvastatin [Lipitor] 80 mg PO HS 05/05/20 06/15/23 Ipratropium-Albuterol Nebulize 3 ml INHALATION RT-TID PRN 05/05/20 06/15/23 [Duoneb 0.5 mg-3 mg/3 ml Soln] Nitroglycerin Sl Tabs [Nitrostat] 0.4 mg SL Q5M PRN 05/05/20 06/15/23 Prasugrel [Effient] 10 mg PO DAILY 05/05/20 06/15/23 Cholecalciferol [Vitamin D3 (125 125 mcg PO DAILY 01/17/22 06/15/23 Mcg = 5000 Iu)] Isosorbide Mononitrate ER [Imdur] 15 mg PO DAILY 01/19/22 06/15/23 metFORMIN HCL [Glucophage] 1,000 mg PO DAILY 01/19/22 06/15/23 Lactulose [Constulose] 10 - 20 gm PO DAILY PRN 06/15/23 06/15/23 hydrALAZINE HCL [Apresoline] 100 mg PO DAILY 06/15/23 06/15/23 Previous Rx's Medication Instructions Recorded Famotidine [Pepcid] 20 mg PO DAILY #30 tablet 04/19/23 Lidocaine 5% Patch [Lidoderm 5% 1 patch TOPICAL DAILY #3 patch 04/19/23 Patch] Metoprolol Succinate [Toprol XL] 200 mg PO DAILY #30 tab 04/19/23 hydroCHLOROthiazide [Hydrodiuril] 25 mg PO DAILY #60 tab 04/19/23 Allergies Allergy/AdvReac Type Severity Reaction Status Date / Time peanut Allergy HIVES Verified 06/15/23 07:57 rice Allergy Rash/Hives Verified 06/15/23 07:57 seasonal Allergy Rash/Hives Uncoded 06/15/23 07:57 Review of Systems ROS Statement: Those systems with pertinent positive or pertinent negative responses have been documented in the HPI. ROS Other: All systems not noted in ROS Statement are negative. Constitutional: Denies: fever, chills, weakness Eyes: Denies: eye pain, vision change ENT: Denies: ear pain Respiratory: Denies: cough, dyspnea Cardiovascular: Reports: chest pain. Denies: palpitations, orthopnea, edema, syncope Gastrointestinal: Reports: abdominal pain. Denies: nausea, vomiting, diarrhea Genitourinary: Denies: dysuria, hematuria Musculoskeletal: Denies: back pain Skin: Denies: rash Neurological: Denies: headache, weakness, numbness EKG Findings - EKG Results: EKG: interpreted by ERMD, sinus rhythm (Rate 77 bpm), normal axis - Blocks, [place], Hypertrophy, ST Abn: Chamber hypertrophy or enlargement: left ventricular hypertrophy or enlargement (LVE) - MD, Pacemaker, Normal: Myocardial infarction: septal MD (old age or indeterminate) (Possible old septal infarct) Past Medical History Past Medical History: Asthma, COPD, Diabetes Mellitus, Hyperlipidemia, Hypertension, Myocardial Infarction (MD), Musculoskeletal Disorder, Thyroid Disorder Additional Past Medical History / Comment(s): Back Pain, right shoulder pain, Hx Pituitary Tumor, BENIGN. Thyroid disorder. 3 heart attacks March 2022, 2 stents placed. left ear infection recently treated Last Myocardial Infarction Date:: 10/29/22 History of Any Multi-Drug Resistant Organisms: None Reported Past Surgical History: Section, Heart Catheterization With Stent, Tubal Ligation Additional Past Surgical History / Comment(s): Pituitary Tumor Removed. colonoscopy, PAIN CLINIC PROCEDURES Past Anesthesia/Blood Transfusion Reactions: No Reported Reaction Date of Last Stent Placement:: april 28 2020 Past Psychological History: Anxiety, Depression Smoking Status: Former smoker Past Alcohol Use History: None Reported Past Drug Use History: Marijuana - Past Family History Mother History Unknown: Yes Family Medical History: Deep Vein Thrombosis (DVT) Additional Family Medical History / Comment(s): Mother is alive at age 67 with history of coronary artery disease and three-vessel CABG. Daughter(s) History Unknown: Yes Family Medical History: Deep Vein Thrombosis (DVT) Additional Family Medical History / Comment(s): Patient has a total of 9 children with no major medical problems. Father History Unknown: Yes Family Medical History: Cancer Additional Family Medical History / Comment(s): Father is alive with no history of coronary artery disease. History of Prostate Cancer Sister(s) History Unknown: Yes Additional Family Medical History / Comment(s): The patient has 4 sisters and 1 brother. One sister had a myocardial infraction at age 40. General Exam Limitations: no limitations General appearance: alert, in no apparent distress Head exam: Present: atraumatic, normocephalic Eye exam: Present: normal appearance. Absent: scleral icterus, conjunctival injection ENT exam: Present: normal oropharynx Neck exam: Present: normal inspection Respiratory exam: Present: normal lung sounds bilaterally. Absent: respiratory distress, wheezes, rales, rhonchi, stridor Cardiovascular Exam: Present: regular rate, normal rhythm, normal heart sounds. Absent: systolic murmur, diastolic murmur, rubs, gallop GI/Abdominal exam: Present: soft, tenderness (Left-sided abdominal tenderness, no rebound or guarding). Absent: distended, guarding, rebound, rigid, mass, pulsatile mass, hernia Extremities exam: Present: normal inspection, normal capillary refill. Absent: pedal edema, calf tenderness Back exam: Present: normal inspection. Absent: CVA tenderness (R), CVA tenderness (L), vertebral tenderness Neurological exam: Present: alert, oriented X3, CN II-XII intact. Absent: motor sensory deficit Skin exam: Present: warm, dry, intact, normal color. Absent: rash Course Vital Signs 12/01/23 12/01/23 12/01/23 20:51 21:58 23:18 Temperature 98.9 F Pulse Rate 76 81 88 Respiratory 16 16 18 Rate Blood Pressure 165/128 156/78 145/98 O2 Sat by Pulse 93 L 100 98 Oximetry Disposition Clinical Impression: Chest pain Disposition: ADMITTED IP TO THIS HOSP Condition: Good Instructions (If sedation given, give patient instructions): Chest Pain (ED) Is patient prescribed a controlled substance at d/c from ED?: No Referrals: [facility] [Primary Care Provider] - 1-2 days
[2023-12-01 21:22] LABS: Basophils % (A) 0 %; Eosinophils # (A) 0.3 k/uL (0-0.7); Eosinophils % (A) 3 %; HCT 37.4 % (34.0-46.0); HGB 12.7 gm/dL (11.4-16.0); Lymphocytes % (A) 31 %; MCH 29.2 pg (25.0-35.0); MCHC 33.9 g/dL (31.0-37.0); MCV 86.1 fL (80.0-100.0); Mean Platelet Volume 7.5; Monocytes # (A) 0.4 k/uL (0-1.0); Monocytes % (A) 4 %; Neutrophils # (A) 5.7 k/uL (1.3-7.7); Neutrophils % (A) 59 %; Platelet Count 221 k/uL (150-450); RBC 4.34 m/uL (3.80-5.40); RDW 13.4 % (11.5-15.5); WBC 9.5 k/uL (3.8-10.6)
[2023-12-01] MEDS: ASPIRIN 81 MG PO STA (21:22)
[2023-12-01] MEDS: NITROGLYCERIN OINT 1 INCH/GM PACKET TOPICAL STA (21:23)
[2023-12-01 21:37] LABS: INR 0.9 (<1.2); Partial Thromboplastin Time 24.4 sec (22.0-30.0); Prothrombin Time 10.4 sec (10.0-12.5)
[2023-12-01 21:52] LABS: ALT 28 U/L (4-34); AST 29 U/L (14-36); African American GFR (CKD) >90 (>60 ml/min/1.73 sqM); Albumin 3.9 g/dL (3.5-5.0); Alkaline Phosphatase 127 U/L (38-126); Anion Gap 9 mmol/L; Blood Urea Nitrogen 10 mg/dL (7-17); Carbon Dioxide 23 mmol/L (22-30); Chloride 108 mmol/L (98-107); Glucose 132 mg/dL (74-99); Magnesium 1.3 mg/dL (1.6-2.3); Non-African American GFR(CKD) >90 (>60 ml/min/1.73 sqM); Potassium 3.4 mmol/L (3.5-5.1); Sodium 140 mmol/L (137-145); Total Bilirubin 0.6 mg/dL (0.2-1.3); Total Protein 6.8 g/dL (6.3-8.2)
[2023-12-01] MEDS: hydrALAZINE HCL 50 MG TAB PO STA (21:53)
[2023-12-01 22:01] LABS: NT-Pro-B-Type Natriuretic Pept 730 pg/mL
--- NOTE | 2023-12-01 22:24 | CT ---
EXAMINATION TYPE: CT abdomen pelvis wo con CT DLP: 555.9 mGycm, Automated exposure control for dose reduction was used. DATE OF EXAM: 12/01/2023 9:49 PM COMPARISON: CT 06/10/2022 CLINICAL INDICATION:Female, 53 years old with history of left sided abdominal pain; left sided abdomi nal pain TECHNIQUE: Axial CT of the abdomen and pelvis. Sagittal and coronal reformats were created on a [employer] workstation. Contrast used: mL of , (none if empty) Oral contrast used: without Oral Contrast (none if empty) FINDINGS: Exam is limited without contrast. LOWER CHEST: Heart appears mildly to moderately enlarged. Mild/moderate calcification of the visualiz ed coronary arteries. Trace pericardial fluid. Linear bandlike opacities in the lung bases, most cons istent with nonsegmental atelectasis. ABDOMEN LIVER: Unremarkable GALLBLADDER AND BILE DUCTS: Gallbladder partially contracted without evidence of gallstones or surrou nding inflammation. PANCREAS: Unremarkable. SPLEEN: Unremarkable. ADRENAL GLANDS: Unremarkable. KIDNEYS AND URETERS: No evidence of renal calculi or contour deformity. No hydronephrosis. PELVIS BLADDER: Incompletely distended but grossly unremarkable. REPRODUCTIVE: Uterus is present with some small coarse parenchymal calcifications suggesting fibroid disease. No evidence of adnexal mass. ABDOMEN & PELVIS STOMACH AND BOWEL: Stomach and small bowel are nondistended, no evidence of obstruction. The append ix appears within normal limits. Mild/moderate amounts of stool throughout the colon without focal a bnormality demonstrated. PERITONEUM/RETROPERITONEUM: No evidence of pneumoperitoneum or free fluid. VASCULATURE: Mild/moderate atherosclerotic calcifications are present throughout the abdominal aorta and its branches. No evidence of aortic aneurysm. LYMPH NODES: No gross evidence for lymphadenopathy. SOFT TISSUE/ABDOMINAL WALL: No acute finding. Tiny fat-containing umbilical region hernia. MUSCULOSKELETAL: No acute osseous abnormalities. Mild/moderate disc degeneration changes are present throughout the thoracolumbar spine, greatest at L5-S1 where there appears to be mild to moderate reynaldo l and neural foraminal stenoses. IMPRESSION: 1. No evidence of urinary tract calculi or hydronephrosis. 2. No acute abnormality otherwise demonstrated, in the limits of unenhanced exam. 3. Other chronic and likely incidental findings, as described above.
--- NOTE | 2023-12-01 22:53 | XR ---
EXAM: XR Chest, 2 Views CLINICAL HISTORY: ITS.REASON XR Reason: Chest Pain TECHNIQUE: Frontal and lateral views of the chest. COMPARISON: No previous studies. FINDINGS: Lungs: Minimal scarring near the lung bases. No consolidation. Pleural space: Unremarkable. No pneumothorax. Heart: Mild cardiomegaly. Mediastinum: Unremarkable. Normal mediastinal contour. Bones/joints: Osseous structures and soft tissues are unremarkable. Mild to moderate degenerative disc disease of the thoracic spine. No acute fracture. Other findings: Hypoaeration. IMPRESSION: 1. Hypoaeration. 2. Minimal scarring/subsegmental atelectasis near the lung bases.
--- NOTE | 2023-12-01 23:15 | CT ---
EXAM: CT Angiography Chest With Intravenous Contrast CLINICAL HISTORY: ITS.REASON CT Reason: chest pain, possible PE TECHNIQUE: Axial computed tomographic angiography images of the chest with intravenous contrast. CTDI is 27.2 mGy and DLP is 424.1 mGy-cm. This CT exam was performed using one or more of the following dose reduction techniques: automated exposure control, adjustment of the mA and/or kV according to patient size, and/or use of iterative reconstruction technique. MIP reconstructed images were created and reviewed. COMPARISON: Chest x-ray study of 12/01/2023. FINDINGS: Pulmonary arteries: Central pulmonary arteries are unremarkable. Limited evaluation of the peripheral branches the pulmonary arteries to the phase of injection without gross abnormalities detected. Aorta: No acute findings. No thoracic aortic aneurysm. Lungs: Airway is normal. Minimal scarring and subsegmental atelectasis noted in the mid and lower lung zones. No mass. Pleural space: Unremarkable. No pneumothorax. No pleural effusions. Heart: Unremarkable. No cardiomegaly. No significant pericardial effusion. No evidence of RV dysfunction. Mediastinum: Presumed residual thymic tissue in anterior mediastinum. Thyroid: The thyroid gland is unremarkable. Bones/joints: No acute fracture. No dislocation. Soft tissues: Unremarkable. Lymph nodes: Unremarkable. No enlarged lymph nodes. Liver: Fatty liver. Other findings: Hypoaeration. Mild to moderate degenerative disc disease of the thoracic spine. IMPRESSION: 1. Hypoaeration. 2. Presumed scarring and subsegmental atelectasis in the mid lower lung zones. 3. No central pulmonary emboli. 4. Markedly limited right of the peripheral branches the pulmonary arteries as discussed above which are grossly unremarkable. 5. Fatty liver.
[2023-12-02] MEDS ORDERED: NITROGLYCERIN SL TABS 0.4 MG TAB SUBLINGUAL PRN (00:12)
[2023-12-02] MEDS: KETOROLAC 15 MG/ML 1 ML VIAL IVP STA (03:21)
--- NOTE | 2023-12-02 03:38 | P.HPIM ---
History of Present Illness H&P Date: 12/02/23 Patient is a 53-year-old female with a PMH of CAD status post multiple stents, type II DM, COPD, hypertension, hyperlipidemia, hypothyroidism who presents to the emergency room with complaints of elevated blood pressure, headache, and chest pressure with shortness of breath. Patient reports over the past several weeks she has been experiencing exertional dyspnea and decreased activity tolerance. Also reports developing a headache earlier today while she was at work and subsequently checking her blood pressure to see that it was elevated. Reports ongoing headache at the time of interview, rated at a 9 out of 10, bilateral, and diffuse. Reports an episode of chest tightness at around the s rose time which was improved with nitro at home. Reports the chest tightness has now resolved. Denies fever or chills. Also denied nausea or vomiting. Denies urinary complaints. Chest CTA in the emergency room was unremarkable with EKG showing sinus rhythm with LVH at 77 bpm as reviewed by me. CT abdomen and pelvis was unremarkable. Laboratory evaluation was remarkable for potassium 3.4, troponin less than 0.012, proBNP 730, with magnesium 1.3. Blood pressure upon arrival to the emergency room was 165/128 which is now improved to 125/69 at the time of interview. ED documentation reviewed and case discussed with ED provider. Review of systems: Pertinent positives and negatives as discussed in HPI, a complete review of systems was performed and all other systems are negative. Physical examination: Vital signs reviewed General: non toxic, no distress, appears at stated age, obese Derm: no unusual rashes/lesions, warm Head: atraumatic, normocephalic, symmetric Eyes: EOMI, no lid lag, anicteric sclera, pupils equal round reactive to light ENT: Nose and ears atraumatic Neck: No cervical lymphadenopathy, trachea midline, supple Mouth: no lip lesion, mucus membranes moist Cardiovascular: S1S2 reg, no murmur, positive dorsalis pedis pulse bilateral, no edema Lungs: CTA bilateral, no rhonchi, no rales, no accessory muscle use Abdominal: soft, mild diffuse tenderness, no guarding Ext: muscle strength 5 out of 5 in all 4 extremities grossly, no gross muscle atrophy, no contractures, Neuro: CN II-XI grossly intact, no gross focal neuro deficits Psych: Alert, oriented, appropriate affect Assessment: Chest pain, rule out ACS Hypokalemia and Hypomagnasemia Elevated blood pressure and headache Chronic conditions: Type II DM, hypertension, hyperlipidemia, COPD, hypothyroi dism Imaging: Chest CTA in the emergency room was unremarkable with EKG showing sinus rhythm with LVH at 77 bpm as reviewed by me. CT abdomen and pelvis was unremarkable. Data Review: Laboratory evaluation was remarkable for potassium 3.4, troponin less than 0.012, proBNP 730, with magnesium 1.3. Blood pressure upon arrival to the emergency room was 165/128 which is now improved to 125/69 at the time of interview. Plan: Cardiology consult Cardiac monitoring Trend troponin Continue with aspirin and statin Tylenol as needed for headache Replace and monitor Insulin sliding scale blood glucose monitoring Continue remaining home medications once reconciled DVT prophylaxis: Lovenox subcu The patient is admitted with an anticipated less than 2 midnight stay for evaluation of chest pain CODE STATUS: Full Code Discussed with: Patient Anticipated discharge place: Home Past Medical History Past Medical History: Asthma, COPD, Diabetes Mellitus, Hyperlipidemia, Hypertension, Myocardial Infarction (DC), Musculoskeletal Disorder, Thyroid Disorder Additional Past Medical History / Comment(s): Back Pain, right shoulder pain, Hx Pituitary Tumor, BENIGN. Thyroid disorder. 3 heart attacks March 2022, 2 stents placed. left ear infection recently treated Last Myocardial Infarction Date:: 10/29/22 History of Any Multi-Drug Resistant Organisms: None Reported Past Surgical History: Section, Heart Catheterization With Stent, Tubal Ligation Additional Past Surgical History / Comment(s): Pituitary Tumor Removed. colonos copy, PAIN CLINIC PROCEDURES Past Anesthesia/Blood Transfusion Reactions: No Reported Reaction Date of Last Stent Placement:: april 28 2020 Past Psychological History: Anxiety, Depression Smoking Status: Former smoker Past Alcohol Use History: None Reported Additional Past Alcohol Use History / Comment(s): The patient had been a smoker on and off for 11 years, she quit 5 yrs. 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 Past Drug Use History: Marijuana Additional Drug Use History / Comment(s): OCC USE.-INSTRUCTED TO REFRAIN FROM USE FOR AT LEAST 24 HOURS PRIOR TO PROCEDURE - Past Family History Mother History Unknown: Yes Family Medical History: Deep Vein Thrombosis (DVT) Additional Family Medical History / Comment(s): Mother is alive at age 67 with history of coronary artery disease and three-vessel CABG. Daughter(s) History Unknown: Yes Family Medical History: Deep Vein Thrombosis (DVT) Additional Family Medical History / Comment(s): Patient has a total of 9 children with no major medical problems. Father History Unknown: Yes Family Medical History: Cancer Additional Family Medical History / Comment(s): Father is alive with no history of coronary artery disease. History of Prostate Cancer Sister(s) History Unknown: Yes Additional Family Medical History / Comment(s): The patient has 4 sisters and 1 brother. One sister had a myocardial infraction at age 40. Medications and Allergies Home Medications Medication Instructions Recorded Confirmed Type Aspirin EC [Ecotrin Low Dose] 81 mg PO DAILY 05/05/20 06/15/23 History Atorvastatin [Lipitor] 80 mg PO HS 05/05/20 06/15/23 History Ipratropium-Albuterol Nebulize 3 ml INHALATION RT-TID PRN 05/05/20 06/15/23 History [Duoneb 0.5 mg-3 mg/3 ml Soln] Nitroglycerin Sl Tabs [Nitrostat] 0.4 mg SL Q5M PRN 05/05/20 06/15/23 History Prasugrel [Effient] 10 mg PO DAILY 05/05/20 06/15/23 History Cholecalciferol [Vitamin D3 (125 125 mcg PO DAILY 01/17/22 06/15/23 History Mcg = 5000 Iu)] Isosorbide Mononitrate ER [Imdur] 15 mg PO DAILY 01/19/22 06/15/23 History metFORMIN HCL [Glucophage] 1,000 mg PO DAILY 01/19/22 06/15/23 History Famotidine [Pepcid] 20 mg PO DAILY #30 tablet 04/19/23 06/15/23 Rx Lidocaine 5% Patch [Lidoderm 5% 1 patch TOPICAL DAILY #3 patch 04/19/23 06/15/23 Rx Patch] Metoprolol Succinate [Toprol XL] 200 mg PO DAILY #30 tab 04/19/23 06/15/23 Rx hydroCHLOROthiazide [Hydrodiuril] 25 mg PO DAILY #60 tab 04/19/23 06/15/23 Rx Lactulose [Constulose] 10 - 20 gm PO DAILY PRN 06/15/23 06/15/23 History hydrALAZINE HCL [Apresoline] 100 mg PO DAILY 06/15/23 06/15/23 History Allergies Allergy/AdvReac Type Severity Reaction Status Date / Time peanut Allergy HIVES Verified 06/15/23 07:57 rice Allergy Rash/Hives Verified 06/15/23 07:57 seasonal Allergy Rash/Hives Uncoded 06/15/23 07:57 Physical Exam Vitals: Vital Signs Temp Pulse Pulse Resp BP BP Pulse Ox 12/02/23 01:32 18 12/02/23 01:21 98.1 F 82 18 125/69 98 12/02/23 00:39 82 16 150/76 98 12/01/23 23:18 88 18 145/98 98 12/01/23 21:58 81 16 156/78 100 12/01/23 20:51 98.9 F 76 16 165/128 93 L Intake and Output 12/01/23 12/01/23 12/02/23 14:59 22:59 06:59 Other: Weight 74.843 kg 74.843 kg Results CBC & Chem 7: 12/01/23 21:14 12/01/23 21:14 Labs: Abnormal Lab Results - Last 24 Hours (Table) 12/01/23 12/01/23 Range/Units 21:14 21:14 D-Dimer 1.20 H (<0.60) mg/L FEU Potassium 3.4 L (3.5-5.1) mmol/L Chloride 108 H (98-107) mmol/L Creatinine 0.45 L (0.52-1.04) mg/dL Glucose 132 H (74-99) mg/dL Magnesium 1.3 L (1.6-2.3) mg/dL Alkaline Phosphatase 127 H (38-126) U/L Thrombosis Risk Factor Assmnt - Choose All That Apply Any of the Below Risk Factors Present?: Yes Each Factor Represents 1 point: Abnormal pulmonary function (COPD), Age 41-60 years, Obesity (BMI >25) Other Risk Factors: No Other congenital or acquired thrombophilia - If yes, enter type in comment: No Thrombosis Risk Factor Assessment Total Risk Factor Score: 3 Thrombosis Risk Factor Assessment Level: Moderate Risk
[2023-12-02] MEDS: ACETAMINOPHEN TAB 325 MG TAB PO PRN (04:01)
[2023-12-02] MEDS: MAGNESIUM SULFATE-D5W PMX 1 GM in DEXTROSE/WATER 1 100ML.BAG IVPB SCH (05:03)
[2023-12-02] MEDS: ATORVASTATIN 80 MG TAB PO STA (05:13)
[2023-12-02 07:23] LABS: HCT 36.3 % (34.0-46.0); HGB 12.3 gm/dL (11.4-16.0); MCH 29.5 pg (25.0-35.0); MCHC 33.7 g/dL (31.0-37.0); MCV 87.6 fL (80.0-100.0); Mean Platelet Volume 7.6; Platelet Count 215 k/uL (150-450); RBC 4.15 m/uL (3.80-5.40); RDW 13.5 % (11.5-15.5)
[2023-12-02 07:29] LABS: Glucose,Whole Blood 138 mg/dL (70-110)
[2023-12-02 07:32] LABS: African American GFR (CKD) >90 (>60 ml/min/1.73 sqM); Anion Gap 5 mmol/L; Blood Urea Nitrogen 9 mg/dL (7-17); Calcium 9.6 mg/dL (8.4-10.2); Carbon Dioxide 24 mmol/L (22-30); Chloride 110 mmol/L (98-107); Glucose 143 mg/dL (74-99); Non-African American GFR(CKD) >90 (>60 ml/min/1.73 sqM); Potassium 3.5 mmol/L (3.5-5.1); Sodium 139 mmol/L (137-145)
[2023-12-02] MEDS: INSULIN ASPART (NovoLOG) 100 UNIT/ML VIAL SQ SCH (07:49)
[2023-12-02] MEDS: HEPARIN SODIUM,PORCINE 5,000 UNIT/ML 1 ML VIAL SQ SCH (09:35)
[2023-12-02] MEDS ORDERED: CALCIUM CARBONATE 500 MG CHEWABLE PO PRN (10:26)
[2023-12-02 11:36] LABS: Glucose,Whole Blood 109 mg/dL (70-110)
--- NOTE | 2023-12-02 11:41 | P.PN ---
Progress Note - Text Progress Note Date: 12/02/23 Patient has multiple generalized complaints ranging from belly pain to headache to chest pain to constipation to diarrhea to nausea. Regarding her chest pain, this does not appear to be acute coronary syndrome, however, we will await cardiology evaluation, monitor her symptomatically overnight and plan for discharge tomorrow if her chronic medical symptoms remain stable.
[2023-12-02] MEDS: SUCRALFATE 1 GM TAB PO SCH (12:24)
[2023-12-02 17:37] LABS: Glucose,Whole Blood 256 mg/dL (70-110)
[2023-12-02] MEDS: ATORVASTATIN 80 MG TAB PO SCH (19:54)
[2023-12-02 19:58] LABS: Glucose,Whole Blood 102 mg/dL (70-110)
[2023-12-03 02:06] VITALS: BP 162/78; PULSE 79; RESP 18; TEMP 98.3
[2023-12-03] MEDS ORDERED: ASPIRIN 325 MG TAB PO SCH (09:00)
[2023-12-03] MEDS ORDERED: ASPIRIN 81 MG PO SCH (09:00)
--- NOTE | 2023-12-03 16:10 | P.DS ---
Providers Date of admission: 12/02/23 00:12 Expected date of discharge: 12/03/23 Attending physician: Juan Manuel Knox MD Consults: 12/02/23 00:12 Consult Physician Routine Consulting Provider: Giovani Jones Consult Reason/Comments: chest pain Do you want consulting provider notified?: Yes Primary care physician: [facility] Hospital Course: Chest pain, rule out ACS Hypokalemia and Hypomagnasemia Elevated blood pressure and headache Chronic conditions: Type II DM, hypertension, hyperlipidemia, COPD, hypothyroidism Hospital Course: Patient is a 53-year-old female with a PMH of CAD status post multiple stents, type II DM, COPD, hypertension, hyperlipidemia, hypothyroidism who presents to the emergency room with complaints of elevated blood pressure, headache, and chest pressure with shortness of breath. Chest CTA in the emergency room was unremarkable with EKG showing sinus rhythm with LVH at 77 bpm as reviewed by me. CT abdomen and pelvis was unremarkable. Laboratory evaluation was remarkable for potassium 3.4, troponin less than 0.012, proBNP 730, with magnesium 1.3. Blood pressure upon arrival to the emergency room was 165/128 which is now improved to 125/69 at the time of interview. Pt left AMA prior to my evaluation on 12/03 Patient Condition at Discharge: Good Plan - Discharge Summary Discharge Rx Participant: No New Discharge Prescriptions: No Action Nitroglycerin Sl Tabs [Nitrostat] 0.4 mg SL Q5M PRN PRN Reason: Chest Pain Atorvastatin [Lipitor] 80 mg PO HS Aspirin EC [Ecotrin Low Dose] 81 mg PO DAILY Isosorbide Mononitrate ER [Imdur] 30 mg PO DAILY hydroCHLOROthiazide [Hydrodiuril] 25 mg PO DAILY #60 tab hydrALAZINE HCL [Apresoline] 100 mg PO DAILY Ibuprofen [Motrin] 800 mg PO DAILY PRN PRN Reason: Pain Albuterol Inhaler [Ventolin Hfa Inhaler] 2 puff INHALATION RT-QID PRN PRN Reason: Shortness Of Breath Cholecalciferol [Vitamin D3 (125 Mcg = 5000 Iu)] 125 mcg PO DAILY metFORMIN HCL [Glucophage] 1,000 mg PO DAILY Metoprolol Succinate [Toprol XL] 50 mg PO DAILY Losartan Potassium 50 mg PO DAILY Ondansetron Odt [Zofran Odt] 4 mg PO Q12HR PRN PRN Reason: Nausea Cider Vinegar [Apple Cider Vinegar] 300 mg PO TID Naproxen Sodium [Aleve] 220 mg PO BID PRN PRN Reason: Pain Discharge Medication List Aspirin EC [Ecotrin Low Dose] 81 mg PO DAILY 05/05/20 [History] Atorvastatin [Lipitor] 80 mg PO HS 05/05/20 [History] Nitroglycerin Sl Tabs [Nitrostat] 0.4 mg SL Q5M PRN 05/05/20 [History] Cholecalciferol [Vitamin D3 (125 Mcg = 5000 Iu)] 125 mcg PO DAILY 01/17/22 [History] Isosorbide Mononitrate ER [Imdur] 30 mg PO DAILY 01/19/22 [History] metFORMIN HCL [Glucophage] 1,000 mg PO DAILY 01/19/22 [History] hydroCHLOROthiazide [Hydrodiuril] 25 mg PO DAILY #60 tab 04/19/23 [Rx] hydrALAZINE HCL [Apresoline] 100 mg PO DAILY 06/15/23 [History] Albuterol Inhaler [Ventolin Hfa Inhaler] 2 puff INHALATION RT-QID PRN 12/02/23 [History] Cider Vinegar [Apple Cider Vinegar] 300 mg PO TID 12/02/23 [History] Ibuprofen [Motrin] 800 mg PO DAILY PRN 12/02/23 [History] Losartan Potassium 50 mg PO DAILY 12/02/23 [History] Metoprolol Succinate [Toprol XL] 50 mg PO DAILY 12/02/23 [History] Naproxen Sodium [Aleve] 220 mg PO BID PRN 12/02/23 [History] Ondansetron Odt [Zofran Odt] 4 mg PO Q12HR PRN 12/02/23 [History] Follow up Appointment(s)/Referral(s): [facility] [Primary Care Provider] - 1-2 days Patient Instructions/Handouts: Chest Pain (ED) Discharge Disposition: LEFT AGAINST MEDICAL ADVICE
== END 2023-12-03 06:51 | disposition left against medical advice (07) ==
LOC: EC 20:42 → 6NMEDSUR 12-02 00:12
PROVIDERS: ADMIT Internal Medicine; ATTEND Internal Medicine
DX: R07.89 Other chest pain (principal); E87.6 Hypokalemia; E83.42 Hypomagnesemia; R51.9 Headache, unspecified; I10 Essential (primary) hypertension; J45.909 Unspecified asthma, uncomplicated; E11.9 Type 2 diabetes mellitus without complications; E78.5 Hyperlipidemia, unspecified; F32.A Depression, unspecified; F41.9 Anxiety disorder, unspecified; E03.9 Hypothyroidism, unspecified; I25.2 Old myocardial infarction; Z87.891 Personal history of nicotine dependence; Z79.82 Long term (current) use of aspirin; Z79.899 Other long term (current) drug therapy; Z79.02 Long term (current) use of antithrombotics/antiplatelets; Z79.84 Long term (current) use of oral hypoglycemic drugs; Z53.29 Procedure and treatment not carried out because of patient's decision for other reasons
CPT/HCPCS: 96365; 96366; 96372; 99285; 36415; 93005; 85379; 83880; 80053; 80048; 83735 ×2; 84484 ×2; 85025; 85027; 85610; 85730; 71046; 71275; 74176; G0378 ×2; J1644; J3475; Q9967

== ENCOUNTER 2023-12-04 22:26 | Inpatient (IN) | payer OTHER ==
--- NOTE | 2023-12-04 22:34 | ED ---
General Adult HPI - General Chief complaint: Abdominal Pain Stated complaint: abd pain Time Seen by Provider: 12/04/23 22:32 Source: patient Mode of arrival: EMS Limitations: no limitations - History of Present Illness Initial comments: This patient is a 53-year-old woman who presents with complaint of epigastric pain that has been going on approximately 2 hours. She is not able to characterize it this well states that it is moderate to severe intensity. She does have some tingling in her arms. The patient has some associated nausea. She has not noted worsening factors. The patient did take nitroglycerin at home and it may have made a little bit better but she still has pain. She had been admitted in the hospital on the going home yesterday for similar epigastric pain. She is to have an appointment with Dr. Feng Grijalva tomorrow, she was supposed to see her automobile washer steam, Dr. Ojeda on Sunday. -: hour(s) Location: abdomen Quality: aching Consistency: constant Improves with: none Worsens with: none Associated Symptoms: nausea/vomiting Treatments Prior to Arrival: other (Nitroglycerin) - Related Data Home Medications Medication Instructions Recorded Confirmed Aspirin EC [Ecotrin Low Dose] 81 mg PO DAILY 05/05/20 12/05/23 Atorvastatin [Lipitor] 80 mg PO HS 05/05/20 12/05/23 Cholecalciferol [Vitamin D3 (125 125 mcg PO DAILY 01/17/22 12/05/23 Mcg = 5000 Iu)] Isosorbide Mononitrate ER [Imdur] 30 mg PO DAILY 01/19/22 12/05/23 metFORMIN HCL [Glucophage] 1,000 mg PO DAILY 01/19/22 12/05/23 Albuterol Inhaler [Ventolin Hfa 2 puff INHALATION RT-QID PRN 12/02/23 12/05/23 Inhaler] Cider Vinegar [Apple Cider Vinegar] 300 mg PO TID 12/02/23 12/05/23 Metoprolol Succinate [Toprol XL] 50 mg PO DAILY 12/02/23 12/05/23 Ondansetron Odt [Zofran ODT] 4 mg PO Q12HR PRN 12/02/23 12/05/23 Docusate [Colace] 100 mg PO DAILY PRN 12/04/23 12/05/23 Previous Rx's Medication Instructions Recorded hydroCHLOROthiazide [Hydrodiuril] 25 mg PO DAILY #60 tab 04/19/23 Losartan [Cozaar] 100 mg PO DAILY #60 tab 12/06/23 Nitroglycerin Sl Tabs [Nitrostat] 0.4 mg SL Q5M PRN #30 tab 12/06/23 hydrALAZINE HCL [Apresoline] 50 mg PO TID #90 tab 12/06/23 Allergies Allergy/AdvReac Type Severity Reaction Status Date / Time peanut Allergy HIVES Verified 12/05/23 07:36 rice Allergy Rash/Hives Verified 12/05/23 07:36 seasonal Allergy Rash/Hives Uncoded 12/05/23 07:36 Review of Systems ROS Statement: Those systems with pertinent positive or pertinent negative responses have been documented in the HPI. ROS Other: All systems not noted in ROS Statement are negative. Constitutional: Denies: fever, chills Respiratory: Denies: cough, dyspnea Cardiovascular: Denies: chest pain, palpitations, orthopnea, edema, syncope Gastrointestinal: Reports: abdominal pain, nausea. Denies: vomiting, diarrhea Genitourinary: Denies: dysuria, hematuria Musculoskeletal: Denies: back pain Skin: Denies: rash Neurological: Denies: headache, weakness, numbness Past Medical History Past Medical History: Asthma, COPD, Diabetes Mellitus, Hyperlipidemia, Hypertension, Myocardial Infarction (CA), Musculoskeletal Disorder, Thyroid Disorder Additional Past Medical History / Comment(s): Back Pain, right shoulder pain, Hx Pituitary Tumor, BENIGN. Thyroid disorder. 3 heart attacks March 2022, 3 stents placed. Last Myocardial Infarction Date:: 10/29/22 History of Any Multi-Drug Resistant Organisms: None Reported Past Surgical History: Section, Heart Catheterization With Stent, Tubal Ligation Additional Past Surgical History / Comment(s): Pituitary Tumor Removed. colonoscopy, PAIN CLINIC PROCEDURES stents x3 c section x4 Past Anesthesia/Blood Transfusion Reactions: No Reported Reaction Date of Last Stent Placement:: april 28 2020 Past Psychological History: Anxiety, Depression Smoking Status: Former smoker - Past Family History Mother History Unknown: Yes Family Medical History: Deep Vein Thrombosis (DVT) Additional Family Medical History / Comment(s): Mother is alive at age 67 with history of coronary artery disease and three-vessel CABG. Daughter(s) History Unknown: Yes Family Medical History: Deep Vein Thrombosis (DVT) Additional Family Medical History / Comment(s): Patient has a total of 9 children with no major medical problems. Father History Unknown: Yes Family Medical History: Cancer Additional Family Medical History / Comment(s): Father is alive with no history of coronary artery disease. History of Prostate Cancer Sister(s) History Unknown: Yes Additional Family Medical History / Comment(s): The patient has 4 sisters and 1 brother. One sister had a myocardial infraction at age 40. General Exam Limitations: no limitations General appearance: alert, in no apparent distress Head exam: Present: atraumatic, normocephalic Eye exam: Present: normal appearance. Absent: scleral icterus, conjunctival injection ENT exam: Present: normal oropharynx Neck exam: Present: normal inspection Respiratory exam: Present: normal lung sounds bilaterally. Absent: respiratory distress, wheezes, rales, rhonchi, stridor Cardiovascular Exam: Present: regular rate, normal rhythm, normal heart sounds. Absent: systolic murmur, diastolic murmur, rubs, gallop GI/Abdominal exam: Present: soft, tenderness. Absent: distended, guarding, rebound, rigid, mass, pulsatile mass, hernia Extremities exam: Present: normal inspection, normal capillary refill. Absent: pedal edema, calf tenderness Back exam: Present: normal inspection. Absent: CVA tenderness (R), CVA tend erness (L) Neurological exam: Present: alert Psychiatric exam: Present: normal affect Skin exam: Present: warm, dry, intact, normal color. Absent: rash Course Vital Signs 12/04/23 12/04/23 12/04/23 22:29 23:10 23:13 Temperature 97.8 F Pulse Rate 120 H 108 H 110 H Respiratory 24 22 18 Rate Blood Pressure 164/91 157/93 130/103 O2 Sat by Pulse 100 Oximetry EKG Findings - EKG Results: EKG: interpreted by ERMD, sinus rhythm (88 bpm), normal axis, normal QRS - Blocks, [place], Hypertrophy, ST Abn: Chamber hypertrophy or enlargement: left ventricular hypertrophy or enlargement (LVE) - CA, Pacemaker, Normal: Myocardial infarction: septal CA (acute or recent) (The patient has ST elevations in V1 and V2. Comparison with the ECG from 2 days ago reveals V2 elevation is new.) Medical Decision Making - Medical Decision Making Patient is a 53-year-old woman with epigastric pain and radiation to the arm. I was shown an ECG from the patient taken in the waiting room. It does show what appears to be a concerning change comparison with the old ECG. I had the patient brought to the trauma bay where ECG was repeated and then I discussed this with the automobile washer steam and the patient is activated for the Scientific Diver.. The patient did receive medication here including aspirin, nitrates, morphine, heparin. The patient had chest x-ray that I interpreted as negative for acute infiltrate, pneumothorax, congestive heart failure Was pt. sent in by a medical professional or institution (, PA, FOIL SPINNER, urgent care, hospital, or fdc...) When possible be specific @ -[No] Did you speak to anyone other than the patient for history (EMS, parent, family, police, friend...)? What history was obtained from this source @ -[No] Did you review nursing and triage notes (agree or disagree)? Why? @ -[I reviewed and agree with nursing and triage notes] Were old charts reviewed (outside hosp., previous admission, EMS record, old EKG, old radiological studies, urgent care reports/EKG's, fdc records)? Report findings @ -[No old charts were reviewed] Differential Diagnosis (chest pain, altered mental status, abdominal pain women, abdominal pain men, vaginal bleeding, weakness, fever, dyspnea, syncope, headache, dizziness, GI bleed, back pain, seizure, CVA, palpatations, mental health, musculoskeletal)? @ -[Differential Chest Pain: Stable Angina, Unstable Angina, STEMI, NSTEMI Aortic Dissection, Pneumothorax, Musculoskeletal, Esophageal Spasm GERD, Cholecystitis, Pancreatitis, Zoster, this is not meant to be an all-inclusive list. EKG interpreted by me (3pts min.). @ -[I interpreted as above] X-rays interpreted by me (1pt min.). @ -[I interpreted as above CT interpreted by me (1pt min.). @ -[None done] U/S interpreted by me (1pt. min.). @ -[None done] What testing was considered but not performed or refused? (CT, X-rays, U/S, labs)? Why? @ -[None] What meds were considered but not given or refused? Why? @ -[None] Did you discuss the management of the patient with other professionals (professionals i.e. , PA, FOIL SPINNER, lab, RT, psych nurse, social work supervisor, manager lean, teacher, division officer weapons department, caser up)? Give summary @ -Case discussed with the automobile washer steam and with admitting physician Was smoking cessation discussed for >3mins.? @ -[No] Was critical care preformed (if so, how long)? @ -[Yes 30 minutes Were there social determinants of health that impacted care today? How? (Homelessness, low income, unemployed, alcoholism, drug addiction, transportation, low edu. Level, literacy, decrease access to med. care, group home, rehab)? @ -[No] Was there de-escalation of care discussed even if they declined (Discuss DNR or withdrawal of care, Hospice)? DNR status @ -[No] What co-morbidities impacted this encounter? (DM, HTN, Smoking, COPD, CAD, Cancer, CVA, ARF, Chemo, Hep., AIDS, mental health diagnosis, sleep apnea, morbid obesity)? @ -Previous coronary artery disease, diabetes, hypertension Was patient admitted / discharged? Hospital course, mention meds given and route, prescriptions, significant lab abnormalities, going to OR and other pertinent info. @ -[See above Undiagnosed new problem with uncertain prognosis? @ -[No] Drug Therapy requiring intensive monitoring for toxicity (Heparin, Nitro, Insuli n, Cardizem)? @ -[Heparin Were any procedures done? @ -[No] Diagnosis/symptom? @ -[Acute coronary syndrome Acute, or Chronic, or Acute on Chronic? @ -[Acute Uncomplicated (without systemic symptoms) or Complicated (systemic symptoms)? @ -[Uncomplicated Side effects of treatment? @ -[No] Exacerbation, Progression, or Severe Exacerbation? @ -[No] Poses a threat to life or bodily function? How? (Chest pain, [place], CA, pneumonia, PE, COPD, DKA, ARF, appy, cholecystitis, CVA, Diverticulitis, Homicidal, Suicidal, threat to staff... and all critical care pts) @ -Yes - Lab Data Result diagrams: 12/06/23 04:08 12/06/23 04:08 Lab Results 12/04/23 12/04/23 12/04/23 Range/Units 22:40 22:43 22:43 WBC 10.0 (3.8-10.6) k/uL RBC 4.40 (3.80-5.40) m/uL Hgb 12.8 (11.4-16.0) gm/dL Hct 38.0 (34.0-46.0) % MCV 86.4 (80.0-100.0) fL MCH 29.0 (25.0-35.0) pg MCHC 33.6 (31.0-37.0) g/dL RDW 13.3 (11.5-15.5) % Plt Count 206 (150-450) k/uL MPV 7.8 Neutrophils % 65 % Lymphocytes % 27 % Monocytes % 4 % Eosinophils % 2 % Basophils % 0 % Neutrophils # 6.5 (1.3-7.7) k/uL Lymphocytes # 2.7 (1.0-4.8) k/uL Monocytes # 0.4 (0-1.0) k/uL Eosinophils # 0.2 (0-0.7) k/uL Basophils # 0.0 (0-0.2) k/uL PT 10.9 (10.0-12.5) sec INR 1.0 (<1.2) APTT 23.7 (22.0-30.0) sec Sodium 139 (137-145) mmol/L Potassium 3.6 (3.5-5.1) mmol/L Chloride 107 (98-107) mmol/L Carbon Dioxide 26 (22-30) mmol/L Anion Gap 6 mmol/L BUN 12 (7-17) mg/dL Creatinine 0.62 (0.52-1.04) mg/dL Est GFR (CKD-EPI)AfAm >90 (>60 ml/min/1.73 sqM) Est GFR (CKD-EPI)NonAf >90 (>60 ml/min/1.73 sqM) Glucose 188 H (74-99) mg/dL Plasma Lactic Acid Nick (0.7-2.0) mmol/L Calcium 10.1 (8.4-10.2) mg/dL Total Bilirubin 0.6 (0.2-1.3) mg/dL AST 44 H (14-36) U/L ALT 37 H (4-34) U/L Alkaline Phosphatase 121 (38-126) U/L Troponin I (0.000-0.034) ng/mL Total Protein 6.7 (6.3-8.2) g/dL Albumin 4.0 (3.5-5.0) g/dL Amylase 58 (30-110) U/L Lipase 85 (23-300) U/L 12/04/23 12/04/23 Range/Units 22:43 22:43 WBC (3.8-10.6) k/uL RBC (3.80-5.40) m/uL Hgb (11.4-16.0) gm/dL Hct (34.0-46.0) % MCV (80.0-100.0) fL MCH (25.0-35.0) pg MCHC (31.0-37.0) g/dL RDW (11.5-15.5) % Plt Count (150-450) k/uL MPV Neutrophils % % Lymphocytes % % Monocytes % % Eosinophils % % Basophils % % Neutrophils # (1.3-7.7) k/uL Lymphocytes # (1.0-4.8) k/uL Monocytes # (0-1.0) k/uL Eosinophils # (0-0.7) k/uL Basophils # (0-0.2) k/uL PT (10.0-12.5) sec INR (<1.2) APTT (22.0-30.0) sec Sodium (137-145) mmol/L Potassium (3.5-5.1) mmol/L Chloride (98-107) mmol/L Carbon Dioxide (22-30) mmol/L Anion Gap mmol/L BUN (7-17) mg/dL Creatinine (0.52-1.04) mg/dL Est GFR (CKD-EPI)AfAm (>60 ml/min/1.73 sqM) Est GFR (CKD-EPI)NonAf (>60 ml/min/1.73 sqM) Glucose (74-99) mg/dL Plasma Lactic Acid Nick 1.1 (0.7-2.0) mmol/L Calcium (8.4-10.2) mg/dL Total Bilirubin (0.2-1.3) mg/dL AST (14-36) U/L ALT (4-34) U/L Alkaline Phosphatase (38-126) U/L Troponin I <0.012 (0.000-0.034) ng/mL Total Protein (6.3-8.2) g/dL Albumin (3.5-5.0) g/dL Amylase (30-110) U/L Lipase (23-300) U/L Disposition Clinical Impression: Acute coronary syndrome Disposition: ADMITTED IP TO THIS HOSP Condition: Stable Is patient prescribed a controlled substance at d/c from ED?: No
[2023-12-04] MEDS ORDERED: HEPARIN SODIUM 1,000 UN/ML (10ML VL) IV PRN (22:49)
[2023-12-04 22:53] LABS: Basophils % (A) 0 %; Eosinophils # (A) 0.2 k/uL (0-0.7); Eosinophils % (A) 2 %; HGB 12.8 gm/dL (11.4-16.0); Lymphocytes # (A) 2.7 k/uL (1.0-4.8); Lymphocytes % (A) 27 %; MCHC 33.6 g/dL (31.0-37.0); MCV 86.4 fL (80.0-100.0); Mean Platelet Volume 7.8; Monocytes # (A) 0.4 k/uL (0-1.0); Monocytes % (A) 4 %; Neutrophils # (A) 6.5 k/uL (1.3-7.7); Neutrophils % (A) 65 %; Platelet Count 206 k/uL (150-450); RDW 13.3 % (11.5-15.5)
[2023-12-04 23:06] LABS: ALT 37 U/L (4-34); AST 44 U/L (14-36); African American GFR (CKD) >90 (>60 ml/min/1.73 sqM); Alkaline Phosphatase 121 U/L (38-126); Amylase 58 U/L (30-110); Anion Gap 6 mmol/L; Blood Urea Nitrogen 12 mg/dL (7-17); Calcium 10.1 mg/dL (8.4-10.2); Carbon Dioxide 26 mmol/L (22-30); Chloride 107 mmol/L (98-107); Glucose 188 mg/dL (74-99); Lipase 85 U/L (23-300); Non-African American GFR(CKD) >90 (>60 ml/min/1.73 sqM); Potassium 3.6 mmol/L (3.5-5.1); Sodium 139 mmol/L (137-145); Total Bilirubin 0.6 mg/dL (0.2-1.3); Total Protein 6.7 g/dL (6.3-8.2)
[2023-12-04] MEDS: HEPARIN SODIUM 1,000 UN/ML (10ML VL) IV ONE (23:06)
[2023-12-04] MEDS: HEPARIN SOD,PORK IN 0.45% NACL 25,000 UNIT in 0.45% NACL 1 250ML.BAG IV SCH (23:07)
[2023-12-04] MEDS: ASPIRIN 81 MG PO STA (23:08)
[2023-12-04] MEDS: NITROGLYCERIN SL TABS 0.4 MG TAB SUBLINGUAL STA (23:09)
[2023-12-04] MEDS: MORPHINE SULFATE 4 MG/ML SYRINGE IV STA (23:09)
[2023-12-04] MEDS: INSULIN REGULAR 100 UNIT/ML VIAL (IV) SQ STA (23:17)
[2023-12-04 23:33] LABS: Partial Thromboplastin Time 23.7 sec (22.0-30.0); Prothrombin Time 10.9 sec (10.0-12.5)
--- NOTE | 2023-12-04 23:40 | XR ---
EXAM: XR Chest, 1 View CLINICAL HISTORY: ITS.REASON XR Reason: epigastric pain TECHNIQUE: Frontal view of the chest. COMPARISON: No relevant prior studies available. FINDINGS: Lungs: Unremarkable. No consolidation. Pleural space: Unremarkable. No pneumothorax. Heart: Unremarkable. No cardiomegaly. Mediastinum: Unremarkable. Normal mediastinal contour. Bones/joints: Unremarkable. No acute fracture. IMPRESSION: Normal chest x-ray.
[2023-12-04] MEDS: LIDOCAINE 1% INJ 10MG/ML (20 ML MDV) SQ ONE (23:43)
[2023-12-04] MEDS: MIDAZOLAM 2 MG/2 ML VIAL IVP ONE ×2 (23:44→23:52)
[2023-12-04] MEDS: HYDROmorphone 0.5 MG/0.5 ML SYRINGE IVP ONE ×2 (23:47→23:50)
[2023-12-04] MEDS: SODIUM CHLORIDE 0.9% 1,000 ML IV ONE (23:50)
[2023-12-04] MEDS: HEPARIN SODIUM 1,000 UN/ML (10ML VL) IVP ONE (23:54)
[2023-12-05] MEDS: IOPAMIDOL-370 100ML BTL INJ ONE ×2 (00:27→00:33)
[2023-12-05] MEDS ORDERED: RX INFO: IV CONTRAST WAS GIVEN 1 EACH MISC MISCELLANE PRN (00:43)
[2023-12-05] MEDS ORDERED: ALBUTEROL NEBULIZED 2.5 MG/3 ML INHALATION PRN (00:44)
--- NOTE | 2023-12-05 01:00 | P.PCN ---
Date of Procedure: 12/05/23 Operative Findings: CARDIAC CATHETERIZATION PERFORMING PHYSICIAN: Walker Osborn MD, RPVI PROCEDURE PERFORMED: 1. Selective right and left coronary angiogram 2. Left heart catheterization 3. Adjunctive use of Doppler wire of the LAD and RCA and intravascular imaging of the left main coronary artery 4. Ultrasound-guided access of the right common femoral artery and right common femoral vein 5. Selective right common femoral artery angiogram INDICATION: Chest discomfort concerning for angina in this 53-year-old -[place] female patient was known CAD and prior stenting of the LAD as well as diabetes and hypertension and dyslipidemia. COMPLICATION: None APPROACH: Right common femoral artery LEVEL OF SEDATION: Moderate with sedation in length of 34 minutes PROCEDURE DESCRIPTION: After obtaining an informed consent, the patient was brought to cardiac crime lab analyst. Local anesthesia was performed using lidocaine subcutaneously. The right common femoral artery was cannulated using Seldinger technique, the guidewire passed easily, following that we advanced a 6 [place] sheath dilator assembly, the wire and dilator were removed and sheath was flushed. Selective right and left coronary angiogram using a 6-[place] JR4 and JL catheters. Following that we did left heart catheterization using 6-[place] pigtail catheter. After that we decided to do Doppler wire measurement of the LAD and also left main and RCA. After zeroing the Doppler wire and equalizing between the Doppler wire and guiding catheter which was JL4 guiding catheter in the left main was engaged and subsequently the LAD was wired. The initial iFR of the LAD and left main was 0.78. I did pulled back across the lesion in the LAD where the Doppler wire was proximal to the LAD and distal to the ostial left main and we did the Doppler wire measurement again but there was an artifact and we could not assess the exact measurements. At that point I decided to do intravascular imaging of the left main coronary artery. And that showed an area stenosis of 73% with minimal luminal area of the left main off 2.5 millimeters square. After that I did equalize between the Doppler wire and guiding catheter which was JR4 guiding catheter and then I did wire the RCA and I did iFR of the RCA and that also came in to be ischemic at 0.86. The procedure was completed there was no complication. SELECTIVE CORONARY ANGIOGRAM: The right coronary artery: Large caliber vessel and a dominant vessel. The RCA proximally has a tubular lesion appears to be in the range of 60-70%. We did Doppler wire measurement with iFR came in to be ischemic at 0.86. The mid and distal RCA appears to be angiographically normal. Left main: The proximal portion and ostial left main has a lesion appeared to be in the range of 50%. The lesion is documented to be flow-limiting using IVUS with an area stenosis of 73% and minimal luminal area of 2.5 mm The left circumflex: The left circumflex is a large caliber vessel and codominant vessel. The proximal left circumflex appears to have mild disease only and gives rises into an OM1 which is a stented and the stent is patent. Proximal to the stented segment there is a mild disease only noted. The left circumflex after that appeared to be angiographically normal and gives PDA. The left anterior descending artery: The ostial LAD has a lesion also appears to be in the range of 60-70%. We confirmed that the lesion to be flow-limiting also using Doppler wire with an iFR came in to be at 0.78. The LAD in the midportion is a stented and the stent is patent. The LAD distally appears to have mild disease only. HEMODYNAMICS: The LVEDP was 12 mmHg was no significant gradient across aortic valve CONCLUSION: 1. Severe disease involving the ostial and proximal left main coronary artery documented to be flow-limiting using intravascular imaging. The minimal luminal area of the left main was 2.5 mm and the area stenosis was 73% 2. Severe disease involving the ostial left anterior descending artery also documented to be flow-limiting using Doppler wire with iFR 0.86 3. Severe disease involving the proximal right coronary artery documented to be flow-limiting using Doppler wire with iFR off 0.86 POSTPROCEDURE MANAGEMENT: Giving the Lovenox to me with advised the patient to be evaluated and seen by cardiothoracic surgeon for evaluation of coronary artery that was grafting. at was discussed with the patient. The patient is understanding.
--- NOTE | 2023-12-05 01:07 | P.CRDCN ---
History of Present Illness Consult date: 12/05/23 Chief complaint: Epigastric discomfort History of present illness: The patient is a 53-year-old -Luxembour[place] female patient with known history of coronary artery disease and prior stenting of the left anterior descending artery as well as left circumflex/OM and also diabetes and hypertension and dyslipidemia. The patient sees Dr. Ojeda on regular basis. As a matter of fact she underwent recently myocardial perfusion imaging stress is and that was performed in October 2023 and that showed large area of ischemia anteriorly and the patient scheduled to undergo a heart catheterization as an outpatient. Unfortunately before that she presented to the emergency department complaining of epigastric discomfort. She states that the discomfort has been ongoing for the last several days. The discomfort is mainly in the epigastric area with some radiation also to her left arm. No discomfort in the chest. She was experiencing also symptoms of nausea but no vomiting. No dizziness or lightheadedness and no presyncope or syncope. No sweating. No shortness of breath. She tried nitroglycerin sublingual at home with mild improvement but the discomfort continues and because of that she presented to the emergency department. She underwent a workup including an EKG and that showed sinus mechanism with ST changes anteriorly concerning for ischemia. Because of that and because of the discomfort in the epigastric area heart catheterization was advised. The patient underwent heart catheterization and that revealed severe disease involving the left main coronary artery as well as ostial left anterior descending artery as well as a right coronary artery was patent stent in the mid left anterior descending artery and patent stent in the first obtuse marginal branch of the left circumflex. The left ventricular end-diastolic pressure was measured and came in to be within normal limits at 12 mmHg. The patient tolerated the procedure very well. The procedure was performed from the right groin approach. Giving the anatomy with severe triple-vessel coronary artery disease I did not pursue any further percutaneous coronary intervention and I advised sedation to be seen by the cardiothoracic surgical team for an evaluatio n of coronary artery that was grafting. The patient was in full understanding and agreement. She was completely chest pain-free and she was not experiencing any epigastric discomfort by the end of the procedure and please note that the patient did have JUNIE-3 flow as well. For that reason we decided to stop at this point and the patient to be evaluated for surgical revascularization and not percutaneous revascularization because of the above anatomy and also because of being diabetic. The patient will be admitted to the intensive care unit. She will be started on nitroglycerin IV to control the blood pressure. Also I will resume her medications including high intensity statin and aspirin and beta xavi. An echocardiogram would be performed. Also by the end of the procedure to troponin came in to be unremarkable. Also her liver function tests came in to be slightly elevated. On examination she does have elevated blood pressure and heart rate. She does have epigastric tenderness. The abdomen overall is not surgical. She has a regular rate and rhythm with a systolic murmur at the right upper sternal border with near breathing sounds bilaterally and also no edema was noted in the lower extremities Assessment Epigastric discomfort associated with left arm discomfort Severe triple-vessel coronary artery disease as described above Patent stent in the mid left anterior descending artery and patent stent in the first obtuse marginal branch of the left circumflex Multiple comorbid conditions including diabetes and hypertension and dyslipidemia Epigastric tenderness on examination as well noted Plan Rule out intra-abdominal process as well as. Obtain an ultrasound and if needed consult from the surgical team Obtain an echocardiogram with Doppler Place a consult for the cardiothoracic surgical team Standard groin care. Restart the patient back on aspirin and beta xavi and high intensity statin Start the patient on nitroglycerin drip to control the blood pressure Follow-up with the patient Past Medical History Past Medical History: Asthma, COPD, Diabetes Mellitus, Hyperlipidemia, Hypertension, Myocardial Infarction ([place]), Musculoskeletal Disorder, Thyroid Disorder Additional Past Medical History / Comment(s): Back Pain, right shoulder pain, Hx Pituitary Tumor, BENIGN. Thyroid disorder. 3 heart attacks March 2022, 3 stents placed. Last Myocardial Infarction Date:: 10/29/22 History of Any Multi-Drug Resistant Organisms: None Reported Past Surgical History: Section, Heart Catheterization With Stent, Tubal Ligation Additional Past Surgical History / Comment(s): Pituitary Tumor Removed. colonoscopy, PAIN CLINIC PROCEDURES stents x3 c section x4 Past Anesthesia/Blood Transfusion Reactions: No Reported Reaction Date of Last Stent Placement:: april 28 2020 Past Psychological History: Anxiety, Depression Smoking Status: Former smoker - Past Family History Mother History Unknown: Yes Family Medical History: Deep Vein Thrombosis (DVT) Additional Family Medical History / Comment(s): Mother is alive at age 67 with history of coronary artery disease and three-vessel CABG. Daughter(s) History Unknown: Yes Family Medical History: Deep Vein Thrombosis (DVT) Additional Family Medical History / Comment(s): Patient has a total of 9 children with no major medical problems. Father History Unknown: Yes Family Medical History: Cancer Additional Family Medical History / Comment(s): Father is alive with no history of coronary artery disease. History of Prostate Cancer Sister(s) History Unknown: Yes Additional Family Medical History / Comment(s): The patient has 4 sisters and 1 brother. One sister had a myocardial infraction at age 40. Medications and Allergies Home Medications Medication Instructions Recorded Confirmed Type Aspirin EC [Ecotrin Low Dose] 81 mg PO DAILY 05/05/20 12/04/23 History Atorvastatin [Lipitor] 80 mg PO HS 05/05/20 12/04/23 History Nitroglycerin Sl Tabs [Nitrostat] 0.4 mg SL Q5M PRN 05/05/20 12/04/23 History Cholecalciferol [Vitamin D3 (125 125 mcg PO DAILY 01/17/22 12/04/23 History Mcg = 5000 Iu)] Isosorbide Mononitrate ER [Imdur] 30 mg PO DAILY 01/19/22 12/04/23 History metFORMIN HCL [Glucophage] 1,000 mg PO DAILY 01/19/22 12/04/23 History hydroCHLOROthiazide [Hydrodiuril] 25 mg PO DAILY #60 tab 04/19/23 12/04/23 Rx hydrALAZINE HCL [Apresoline] 100 mg PO DAILY 06/15/23 12/04/23 History Albuterol Inhaler [Ventolin Hfa 2 puff INHALATION RT-QID PRN 12/02/23 12/04/23 History Inhaler] Cider Vinegar [Apple Cider Vinegar] 300 mg PO TID 12/02/23 12/04/23 History Ibuprofen [Motrin] 800 mg PO DAILY PRN 12/02/23 12/04/23 History Losartan Potassium 50 mg PO DAILY 12/02/23 12/04/23 History Metoprolol Succinate [Toprol XL] 50 mg PO DAILY 12/02/23 12/04/23 History Naproxen Sodium [Aleve] 220 mg PO BID PRN 12/02/23 12/04/23 History Ondansetron Odt [Zofran Odt] 4 mg PO Q12HR PRN 12/02/23 12/04/23 History Docusate [Colace] 100 mg PO DAILY PRN 12/04/23 12/04/23 History Allergies Allergy/AdvReac Type Severity Reaction Status Date / Time peanut Allergy HIVES Verified 12/04/23 12:08 rice Allergy Rash/Hives Verified 12/04/23 12:08 seasonal Allergy Rash/Hives Uncoded 12/04/23 12:08 Physical Exam Vitals: Vital Signs Temp Pulse Resp BP Pulse Ox 12/04/23 23:13 110 H 18 130/103 12/04/23 23:10 108 H 22 157/93 12/04/23 22:29 97.8 F 120 H 24 164/91 100 Intake and Output 12/04/23 12/04/23 12/05/23 14:59 22:59 06:59 Intake Total 400 Balance 400 Intake: IV 400 Other: Weight 70.307 kg Results 12/04/23 22:43 12/04/23 22:43 Cardiac Enzymes 12/04/23 12/04/23 Range/Units 22:43 22:43 AST 44 H (14-36) U/L Troponin I <0.012 (0.000-0.034) ng/mL Coagulation 12/04/23 Range/Units 22:40 PT 10.9 (10.0-12.5) sec APTT 23.7 (22.0-30.0) sec CBC 12/04/23 Range/Units 22:43 WBC 10.0 (3.8-10.6) k/uL RBC 4.40 (3.80-5.40) m/uL Hgb 12.8 (11.4-16.0) gm/dL Hct 38.0 (34.0-46.0) % Plt Count 206 (150-450) k/uL Comprehensive Metabolic Panel 12/04/23 Range/Units 22:43 Sodium 139 (137-145) mmol/L Potassium 3.6 (3.5-5.1) mmol/L Chloride 107 (98-107) mmol/L Carbon Dioxide 26 (22-30) mmol/L BUN 12 (7-17) mg/dL Creatinine 0.62 (0.52-1.04) mg/dL Glucose 188 H (74-99) mg/dL Calcium 10.1 (8.4-10.2) mg/dL AST 44 H (14-36) U/L ALT 37 H (4-34) U/L Alkaline Phosphatase 121 (38-126) U/L Total Protein 6.7 (6.3-8.2) g/dL Albumin 4.0 (3.5-5.0) g/dL Current Medications Generic Name Dose Route Start Last Admin Trade Name Freq PRN Reason Stop Dose Admin Albuterol Sulfate 2.5 mg 12/05/23 00:44 Albuterol Nebulized 2.5 Mg/3 Ml INHALATION RT-QID PRN Shortness Of Breath Aspirin 81 mg 12/05/23 09:00 Aspirin 81 Mg PO DAILY [facility] Atorvastatin Calcium 80 mg 12/05/23 21:00 Atorvastatin 80 Mg Tab PO HS [facility] Cholecalciferol 125 mcg 12/05/23 09:00 Cholecalciferol 125 Mcg (5000 Iu) Tablet PO DAILY [facility] Docusate Sodium 100 mg 12/05/23 09:00 Docusate 100 Mg Cap PO DAILY PRN Constipation Heparin Sodium (Porcine) 0 unit 12/04/23 22:49 Heparin Sodium 1,000 Un/Ml (10ml Vl) IV PER PROTOCOL PRN Low PTT Protocol Hydralazine HCl 100 mg 12/05/23 09:00 Hydralazine Hcl 50 Mg Tab PO DAILY [facility] Hydrochlorothiazide 25 mg 12/05/23 09:00 Hydrochlorothiazide 25 Mg Tab PO DAILY [facility] Heparin Sodium/Sodium Chloride 250 mls @ 8.437 mls/hr 12/04/23 23:00 12/04/23 23:07 25,000 unit/ Sodium Chloride IV 12 units/kg/hr .Q24H TIERA 8.437 mls/hr Administration Protocol 12 UNITS/KG/HR Sodium Chloride 1,000 mls @ 75 mls/hr 12/05/23 00:45 Saline 0.9% IV 12/05/23 05:46 .[id number] [facility] Isosorbide Mononitrate 30 mg 12/05/23 09:00 Isosorbide Mononitrate Er 30 Mg Tab.Er.24h PO DAILY [facility] Losartan Potassium 50 mg 12/05/23 09:00 Losartan 50 Mg Tab PO DAILY [facility] Metoprolol Succinate 50 mg 12/05/23 09:00 Metoprolol Succinate (Er) 50 Mg Tab.Er.24h PO DAILY [facility] Miscellaneous Information 1 each 12/05/23 00:43 Rx Info: Iv Contrast Was Given 1 Each Misc MISCELLANE 12/07/23 00:43 DAILY PRN Per Protocol Naproxen 250 mg 12/05/23 09:00 Naproxen 250 Mg Tab PO BID PRN Pain Ondansetron HCl 4 mg 12/05/23 09:00 Ondansetron Odt 4 Mg Tab PO Q12HR PRN Nausea Intake and Output 12/04/23 12/04/23 12/05/23 14:59 22:59 06:59 Intake Total 400 Balance 400 Intake: IV 400 Other: Weight 70.307 kg Patient Weight 12/05/23 06:59 Weight 70.307 kg 12/04/23 22:43 12/04/23 22:43
[2023-12-05 01:14] LABS: Glucose,Whole Blood 160 mg/dL (70-110)
[2023-12-05] MEDS: NITROGLYCERIN-D5W PMX 50 MG in DEXTROSE/WATER 1 250ML.BAG IV SCH (01:37)
[2023-12-05] MEDS: SODIUM CHLORIDE 0.9% 1,000 ML IV SCH (01:41)
--- NOTE | 2023-12-05 02:06 | P.HPIM ---
History of Present Illness H&P Date: 12/05/23 Patient is a 53-year-old female with a PMH of CAD status post multiple stents, COPD, type II DM, hypertension, hyperlipidemia, hypothyroidism who was recently admitted to the hospital for chest pain. She was discharged home on 12/03/2023 and returned to the emergency room on 12/04 evening with complaints of worsening epigastric pain. She reported that the pain was worse than the prior episode, now moderate to severe with paresthesias of her arms and some nausea. She also had reported shortness of breath. She attempted to take her nitroglycerin at home which improved her symptoms slightly. EKG in the emergency room revealed sinus rhythm at [address] segment elevation in leads V1 and V2. The case was discussed by the ED provider with the lay up operator on-call who recommended emergent cardiac catheterization which revealed severe triple-vessel disease. No stenting was performed and the patient was admitted to the medical ICU where she was seen and evaluated. Patient reported resolution of her epigastric discomfort and shortness of breath but does report ongoing diffuse mild abdominal discomfort, which as per patient has been chronic for the past several weeks. She denied experiencing diarrhea, fever, or chills. Of note, CT abdomen and pelvis without contrast on 12/01 was unremarkable. Chest x-ray in the emergency room was unremarkable. Laboratory evaluation revealed a troponin less than 0.012 with glucose 188, lactic acid 1.1, hemoglobin 12.8. The patient's blood pressure in the emergency room upon arrival was 164/91 with pulse of 120, SpO2 100% on room air with temp 97.8 F. ED documentation reviewed and case discussed with ED provider. Review of systems: Pertinent positives and negatives as discussed in HPI, a complete review of systems was performed and all other systems are negative. Physical examination: Vital signs reviewed General: non toxic, no distress, appears at stated age, normal weight Derm: no unusual rashes/lesions, warm Head: atraumatic, normocephalic, symmetric Eyes: EOMI, no lid lag, anicteric sclera, pupils equal round reactive to light ENT: Nose and ears atraumatic Neck: No cervical lymphadenopathy, trachea midline, supple Mouth: no lip lesion, mucus membranes moist Cardiovascular: S1S2 reg, no murmur, positive dorsalis pedis pulse bilateral, no edema Lungs: CTA bilateral, no rhonchi, no rales, no accessory muscle use Abdominal: soft, mild diffuse tenderness, no guarding Ext: muscle strength 5 out of 5 in all 4 extremities grossly, no gross muscle atrophy, no contractures, Neuro: CN II-XI grossly intact, no gross focal neuro deficits Psych: Alert, oriented, appropriate affect Assessment: Epigastric pain status post cardiac catheterization showing triple-vessel disease Diffuse mild abdominal pain with tenderness, unclear etiology Chronic conditions: COPD, type II DM, hypertension, hyperlipidemia Imaging: EKG in the emergency room revealed sinus rhythm at [address] segment elevation in leads V1 and V2. Chest x-ray in the emergency room was unremarkable. Data Review: Laboratory evaluation revealed a troponin less than 0.012 with glucose 188, lactic acid 1.1, hemoglobin 12.8. The patient's blood pressure in the emergency room upon arrival was 164/91 with pulse of 120, SpO2 100% on room air with temp 97.8 F. Plan: Cardiothoracic surgery consulted for possible CABG Echocardiogram ordered Continue patient on aspirin and statin GI consulted for vague diffuse abdominal discomfort with unremarkable abdominal imaging Patient started on nitroglycerin infusion for elevated blood pressure DVT prophylaxis: Lovenox subcu The patient is admitted with an anticipated greater than 2 midnight stay for evaluation of epigastric pain CODE STATUS: Full Code Discussed with: Patient Anticipated discharge place: Home Past Medical History Past Medical History: Asthma, COPD, Diabetes Mellitus, Hyperlipidemia, Hypertension, Myocardial Infarction ([place]), Musculoskeletal Disorder, Thyroid Disorder Additional Past Medical History / Comment(s): Back Pain, right shoulder pain, Hx Pituitary Tumor, BENIGN. Thyroid disorder. 3 heart attacks March 2022, 3 stents placed. Last Myocardial Infarction Date:: 10/29/22 History of Any Multi-Drug Resistant Organisms: None Reported Past Surgical History: Section, Heart Catheterization With Stent, Tubal Ligation Additional Past Surgical History / Comment(s): Pituitary Tumor Removed. c olonoscopy, PAIN CLINIC PROCEDURES stents x3 c section x4 Past Anesthesia/Blood Transfusion Reactions: No Reported Reaction Date of Last Stent Placement:: april 28 2020 Past Psychological History: Anxiety, Depression Smoking Status: Former smoker - Past Family History Mother History Unknown: Yes Family Medical History: Deep Vein Thrombosis (DVT) Additional Family Medical History / Comment(s): Mother is alive at age 67 with history of coronary artery disease and three-vessel CABG. Daughter(s) History Unknown: Yes Family Medical History: Deep Vein Thrombosis (DVT) Additional Family Medical History / Comment(s): Patient has a total of 9 children with no major medical problems. Father History Unknown: Yes Family Medical History: Cancer Additional Family Medical History / Comment(s): Father is alive with no history of coronary artery disease. History of Prostate Cancer Sister(s) History Unknown: Yes Additional Family Medical History / Comment(s): The patient has 4 sisters and 1 brother. One sister had a myocardial infraction at age 40. Medications and Allergies Home Medications Medication Instructions Recorded Confirmed Type Aspirin EC [Ecotrin Low Dose] 81 mg PO DAILY 05/05/20 12/04/23 History Atorvastatin [Lipitor] 80 mg PO HS 05/05/20 12/04/23 History Nitroglycerin Sl Tabs [Nitrostat] 0.4 mg SL Q5M PRN 05/05/20 12/04/23 History Cholecalciferol [Vitamin D3 (125 125 mcg PO DAILY 01/17/22 12/04/23 History Mcg = 5000 Iu)] Isosorbide Mononitrate ER [Imdur] 30 mg PO DAILY 01/19/22 12/04/23 History metFORMIN HCL [Glucophage] 1,000 mg PO DAILY 01/19/22 12/04/23 History hydroCHLOROthiazide [Hydrodiuril] 25 mg PO DAILY #60 tab 04/19/23 12/04/23 Rx hydrALAZINE HCL [Apresoline] 100 mg PO DAILY 06/15/23 12/04/23 History Albuterol Inhaler [Ventolin Hfa 2 puff INHALATION RT-QID PRN 12/02/23 12/04/23 History Inhaler] Cider Vinegar [Apple Cider Vinegar] 300 mg PO TID 12/02/23 12/04/23 History Ibuprofen [Motrin] 800 mg PO DAILY PRN 12/02/23 12/04/23 History Losartan Potassium 50 mg PO DAILY 12/02/23 12/04/23 History Metoprolol Succinate [Toprol XL] 50 mg PO DAILY 12/02/23 12/04/23 History Naproxen Sodium [Aleve] 220 mg PO BID PRN 12/02/23 12/04/23 History Ondansetron Odt [Zofran Odt] 4 mg PO Q12HR PRN 12/02/23 12/04/23 History Docusate [Colace] 100 mg PO DAILY PRN 12/04/23 12/04/23 History Allergies Allergy/AdvReac Type Severity Reaction Status Date / Time peanut Allergy HIVES Verified 12/04/23 12:08 rice Allergy Rash/Hives Verified 12/04/23 12:08 seasonal Allergy Rash/Hives Uncoded 12/04/23 12:08 Physical Exam Vitals: Vital Signs Temp Pulse Resp BP Pulse Ox 12/05/23 01:20 85 15 140/74 96 12/05/23 01:10 97.7 F 85 17 12/04/23 23:13 110 H 18 130/103 12/04/23 23:10 108 H 22 157/93 12/04/23 22:29 97.8 F 120 H 24 164/91 100 Intake and Output 12/04/23 12/04/23 12/05/23 14:59 22:59 06:59 Intake Total 400.45 Balance 400.45 Intake: IV 400 Intake, IV Titration 0.45 Amount Nitroglycerin-D5w Pmx 50 0.45 mg In Dextrose/Water 1 250ml.bag @ 5 MCG/MIN 1.5 mls/hr IV .Q24H [facility] Rx#: [id number] Other: Weight 70.307 kg ABP, PAP, CO, CI - Last 8 Hours Arterial Blood Pressure 173/77 Results CBC & Chem 7: 12/04/23 22:43 12/04/23 22:43 Labs: Abnormal Lab Results - Last 24 Hours (Table) 12/04/23 12/05/23 Range/Units 22:43 01:11 Glucose 188 H (74-99) mg/dL POC Glucose (mg/dL) 160 H (70-110) mg/dL AST 44 H (14-36) U/L ALT 37 H (4-34) U/L
[2023-12-05] MEDS: ATROPINE SULFATE 0.1 MG/ML 10ML SYRINGE ONE (03:57)
[2023-12-05 06:28] LABS: Glucose,Whole Blood 126 mg/dL (70-110)
[2023-12-05 06:36] LABS: African American GFR (CKD) >90 (>60 ml/min/1.73 sqM); Anion Gap 6 mmol/L; Blood Urea Nitrogen 10 mg/dL (7-17); Calcium 9.5 mg/dL (8.4-10.2); Carbon Dioxide 23 mmol/L (22-30); Chloride 112 mmol/L (98-107); Glucose 125 mg/dL (74-99); Non-African American GFR(CKD) >90 (>60 ml/min/1.73 sqM); Potassium 4.1 mmol/L (3.5-5.1); Sodium 141 mmol/L (137-145)
[2023-12-05] MEDS: INSULIN ASPART (NovoLOG) 100 UNIT/ML VIAL SQ SCH (06:43)
[2023-12-05] MEDS: MORPHINE SULFATE 2 MG/ML SYRINGE IVP STA (08:14)
[2023-12-05] MEDS: ISOSORBIDE MONONITRATE ER 30 MG TAB.ER.24H PO SCH (08:15)
[2023-12-05] MEDS: LOSARTAN 50 MG TAB PO SCH (08:15)
[2023-12-05] MEDS: METOPROLOL SUCCINATE (ER) 50 MG TAB.ER.24H PO SCH (08:15)
[2023-12-05] MEDS: hydrALAZINE HCL 50 MG TAB PO SCH ×2 (08:15→17:58)
[2023-12-05] MEDS: CHOLECALCIFEROL 125 MCG (5000 IU) TABLET PO SCH (08:15)
[2023-12-05] MEDS: hydroCHLOROthiazide 25 MG TAB PO SCH (08:15)
[2023-12-05] MEDS: ENOXAPARIN 40 MG/0.4 ML SYRINGE SQ SCH (08:15)
[2023-12-05] MEDS: ASPIRIN 81 MG PO SCH (08:16)
[2023-12-05] MEDS: ONDANSETRON ODT 4 MG TAB PO PRN (08:48)
[2023-12-05] MEDS ORDERED: NON FORMULARY DRUG (Cider Vinegar [Apple Cider Vinegar] 300 MG Tablet) PO SCH (09:00)
[2023-12-05] MEDS ORDERED: DOCUSATE 100 MG CAP PO PRN (09:00)
[2023-12-05] MEDS ORDERED: NAPROXEN 250 MG TAB PO PRN (09:00)
--- NOTE | 2023-12-05 10:51 | P.GSCN ---
History of Present Illness Consult date: 12/05/23 Reason for Consult: CAD Requesting physician: Walker Osborn History of present illness: The patient is a 53-year-old -K[place] female patient who follows outpatient with the [facility] for primary care and Dr. Ojeda for cardiology. She has a previous medical history of coronary artery disease and prior stenting of the left anterior descending artery as well as left circumflex/OM, hypertension, hyperlipidemia, diabetes, hypothyroid, asthma, chronic back and neck pain, daily marijuana use, previous tobacco dependence, and family history of premature coronary artery disease. She had a recent stress test in October which demonstrated large area of ischemia anteriorly. Due to this she was scheduled for elective heart catheterization. Unfortunately she developed significant diaphoresis, right arm numbness and tingling, epigastric pain and palpitations. She took sublingual nitro which only helped mildly so she presented to [facility] for evaluation and treatment. EKG showed sinus rhythm with ST changes anteriorly concerning for ischemia. Initial troponin was negative, but due to her presenting symptoms/EKG changes/recent abnormal stress test she was taken to the quality assurance/r&d lab technician by Dr. Osborn and was found to have significant triple vessel coronary artery disease. She was admitted to the ICU on IV heparin and consultation was placed to cardiothoracic surgery for surgical revascularization recommendations. Of note, her blood pressure has remained elevated throughout her stay. Review of Systems Review of systems was completed and was negative except as noted - Constitutional Reports chronic pain, Reports sweats - Cardiovascular Reports as per HPI, Reports high blood pressure, Reports palpitations Past Medical History Past Medical History: Asthma, Coronary Artery Disease (CAD), Chest Pain / Angina, COPD, Diabetes Mellitus, Hyperlipidemia, Hypertension, Myocardial Infarction ([place]), Musculoskeletal Disorder, Thyroid Disorder Additional Past Medical History / Comment(s): Back Pain, right shoulder pain, Hx Pituitary Tumor, BENIGN. 3 heart attacks March 2022, 3 stents placed. Voodoo Last Myocardial Infarction Date:: 10/29/22 History of Any Multi-Drug Resistant Organisms: None Reported Past Surgical History: Section, Heart Catheterization With Stent, Tubal Ligation Additional Past Surgical History / Comment(s): Pituitary Tumor Removed. colonoscopy, PAIN CLINIC PROCEDURES stents x3 c section x4 Past Anesthesia/Blood Transfusion Reactions: No Reported Reaction Date of Last Stent Placement:: april 28 2020 Past Psychological History: Anxiety, Depression Smoking Status: Former smoker Past Alcohol Use History: Rare Past Drug Use History: Marijuana Additional Drug Use History / Comment(s): daily marijuana - Past Family History Mother History Unknown: Yes Family Medical History: Deep Vein Thrombosis (DVT) Additional Family Medical History / Comment(s): Mother is alive at age 67 with history of coronary artery disease and three-vessel CABG @<60 years old. Daughter(s) History Unknown: Yes Family Medical History: Deep Vein Thrombosis (DVT) Additional Family Medical History / Comment(s): Patient has a total of 9 children with no major medical problems. Father History Unknown: Yes Family Medical History: Cancer Additional Family Medical History / Comment(s): Father is alive with no history of coronary artery disease. History of Prostate Cancer Sister(s) History Unknown: Yes Additional Family Medical History / Comment(s): The patient has 4 sisters and 1 brother. One sister had a myocardial infraction at age 40. Medications and Allergies Home Medications Medication Instructions Recorded Confirmed Type Aspirin EC [Ecotrin Low Dose] 81 mg PO DAILY 05/05/20 12/05/23 History Atorvastatin [Lipitor] 80 mg PO HS 05/05/20 12/05/23 History Nitroglycerin Sl Tabs [Nitrostat] 0.4 mg SL Q5M PRN 05/05/20 12/05/23 History Cholecalciferol [Vitamin D3 (125 125 mcg PO DAILY 01/17/22 12/05/23 History Mcg = 5000 Iu)] Isosorbide Mononitrate ER [Imdur] 30 mg PO DAILY 01/19/22 12/05/23 History metFORMIN HCL [Glucophage] 1,000 mg PO DAILY 01/19/22 12/05/23 History hydroCHLOROthiazide [Hydrodiuril] 25 mg PO DAILY #60 tab 04/19/23 12/05/23 Rx hydrALAZINE HCL [Apresoline] 100 mg PO DAILY 06/15/23 12/05/23 History Albuterol Inhaler [Ventolin Hfa 2 puff INHALATION RT-QID PRN 12/02/23 12/05/23 History Inhaler] Cider Vinegar [Apple Cider Vinegar] 300 mg PO TID 12/02/23 12/05/23 History Ibuprofen [Motrin] 800 mg PO DAILY PRN 12/02/23 12/05/23 History Losartan Potassium 50 mg PO DAILY 12/02/23 12/05/23 History Metoprolol Succinate [Toprol XL] 50 mg PO DAILY 12/02/23 12/05/23 History Naproxen Sodium [Aleve] 220 mg PO BID PRN 12/02/23 12/05/23 History Ondansetron Odt [Zofran Odt] 4 mg PO Q12HR PRN 12/02/23 12/05/23 History Docusate [Colace] 100 mg PO DAILY PRN 12/04/23 12/05/23 History Allergies Allergy/AdvReac Type Severity Reaction Status Date / Time peanut Allergy HIVES Verified 12/05/23 07:36 rice Allergy Rash/Hives Verified 12/05/23 07:36 seasonal Allergy Rash/Hives Uncoded 12/05/23 07:36 Surgical - Exam Vital Signs Temp Pulse Resp BP Pulse Ox 97.8 F 120 H 24 164/91 100 12/04/23 22:29 12/04/23 22:29 12/04/23 22:29 12/04/23 22:29 12/04/23 22:29 CONSTITUTIONAL: Awake and alert, appears somewhat comfortable laying flat in bed, cooperative, well-developed, well-nourished, no acute distress EYES: Pupils equal, round, reactive to light, normal ocular movement ENT: Moist mucous membranes without oral lesions present NECK: No masses, no bruits, trachea midline RESPIRATORY: Lungs sounds clear to auscultation bilaterally. Respirations even, nonlabored. Currently on room air with oxygen saturation 100%. Strong cough CARDIOVASCULAR: S1, S2 present. Regular rate and rhythm, sinus rhythm on telemetry. Palpable peripheral pulses bilaterally. No edema present. No calf pain or tenderness noted. No significant lower extremity varicosities noted GASTROINTESTINAL: Abdomen soft, nontender, nondistended without masses or organomegaly noted. There is no rebound or guarding present. Active bowel sounds present 4 quadrants. GENITOURINARY: Deferred INTEGUMENTARY: Skin is warm and dry NEUROLOGIC: Cranial nerves II through XII intact, normal coordination, no obvious motor or sensory deficits, speech is normal MUSKULOSKELETAL: Able to move all extremities, strength equal bilaterally, no rmal posture PSYCHIATRIC: Alert and oriented to person place and time, appropriate affect, intact judgment and insight Results - Labs 12/04/23 22:43 12/05/23 05:51 Abnormal Lab Results - Last 24 Hours (Table) 12/04/23 12/05/23 12/05/23 Range/Units 22:43 01:11 05:51 Chloride 112 H (98-107) mmol/L Creatinine 0.45 L (0.52-1.04) mg/dL Glucose 188 H 125 H (74-99) mg/dL POC Glucose (mg/dL) 160 H (70-110) mg/dL AST 44 H (14-36) U/L ALT 37 H (4-34) U/L 12/05/23 Range/Units 06:26 Chloride (98-107) mmol/L Creatinine (0.52-1.04) mg/dL Glucose (74-99) mg/dL POC Glucose (mg/dL) 126 H (70-110) mg/dL AST (14-36) U/L ALT (4-34) U/L Diabetes panel 12/04/23 12/05/23 Range/Units 22:43 05:51 Sodium 139 141 (137-145) mmol/L Potassium 3.6 4.1 (3.5-5.1) mmol/L Chloride 107 112 H (98-107) mmol/L Carbon Dioxide 26 23 (22-30) mmol/L BUN 12 10 (7-17) mg/dL Creatinine 0.62 0.45 L (0.52-1.04) mg/dL Glucose 188 H 125 H (74-99) mg/dL Calcium 10.1 9.5 (8.4-10.2) mg/dL AST 44 H (14-36) U/L ALT 37 H (4-34) U/L Alkaline Phosphatase 121 (38-126) U/L Total Protein 6.7 (6.3-8.2) g/dL Albumin 4.0 (3.5-5.0) g/dL Calcium panel 12/04/23 12/05/23 Range/Units 22:43 05:51 Calcium 10.1 9.5 (8.4-10.2) mg/dL Albumin 4.0 (3.5-5.0) g/dL Pituitary panel 12/04/23 12/05/23 Range/Units 22:43 05:51 Sodium 139 141 (137-145) mmol/L Potassium 3.6 4.1 (3.5-5.1) mmol/L Chloride 107 112 H (98-107) mmol/L Carbon Dioxide 26 23 (22-30) mmol/L BUN 12 10 (7-17) mg/dL Creatinine 0.62 0.45 L (0.52-1.04) mg/dL Glucose 188 H 125 H (74-99) mg/dL Calcium 10.1 9.5 (8.4-10.2) mg/dL Adrenal panel 12/04/23 12/05/23 Range/Units 22:43 05:51 Sodium 139 141 (137-145) mmol/L Potassium 3.6 4.1 (3.5-5.1) mmol/L Chloride 107 112 H (98-107) mmol/L Carbon Dioxide 26 23 (22-30) mmol/L BUN 12 10 (7-17) mg/dL Creatinine 0.62 0.45 L (0.52-1.04) mg/dL Glucose 188 H 125 H (74-99) mg/dL Calcium 10.1 9.5 (8.4-10.2) mg/dL Total Bilirubin 0.6 (0.2-1.3) mg/dL AST 44 H (14-36) U/L ALT 37 H (4-34) U/L Alkaline Phosphatase 121 (38-126) U/L Total Protein 6.7 (6.3-8.2) g/dL Albumin 4.0 (3.5-5.0) g/dL - Imaging Chest x-ray: report reviewed, image reviewed Additional studies: Heart cath films reviewed with Dr. Escoto Assessment and Plan Assessment: Coronary artery disease and prior stenting of the left anterior descending artery as well as left circumflex/OM Uncontrolled hypertension Hyperlipidemia Diabetes Hypothyroid Asthma Chronic back and neck pain Daily marijuana use Previous tobacco dependence Family history of premature coronary artery disease ADDENDUM: Patient seen and examined. Cath films reviewd. Discussed with Dr Osborn. Left main/ Proximal LAD and RCA stenoses. Patent LAD stent. Patient is ideally treated with CABG due to severe CAD and DM. Uncontrolled HTN. A1C pending at this time. CP resolved at this time. JRm Plan: The patient was seen and examined at the bedside with Dr. Escoto, was present. The usual perioperative course of open heart surgery was discussed with the patient and her , risks and benefits were reviewed, all questions were answered. The patient was informed that the standard of care for someone with her disease processes is open heart surgery, but that stenting is an option. The patient and her would like to think about it. This was discussed between Dr. Escoto and Dr. Osborn. If the patient consents to open heart we will finish preoperative testing and calculate STS risk score. Of note, patient is Voodoo although she is not currently significantly anemic. Recommend continuing ASA, statin, beta xavi. She needs tighter control of her blood pressure which is still quite elevated. Medical management of other comorbidities per internal medicine, cardiology. Thank you Dr. Osborn for this consult, we will continue to follow along and make further recommendations as appropriate. I have personally seen and examined the patient, performed the documentation and the assessment and plan as written. Number of minutes spent on the visit: 30. JAYNA BedollaC ADDENDUM: Patient is ideally treated with CABG. CAD is stable. Needs optimization of medical regimen with control of HTN. Elective CABG. PEPPER
--- NOTE | 2023-12-05 11:23 | US ---
EXAMINATION TYPE: US abdomen complete DATE OF EXAM: 12/05/2023 COMPARISON: CT abdomen and pelvis on 12/01/2023. CLINICAL INDICATION: Female, 53 years old with history of pain; Generalized abdomen pain. Portable ICU patient TECHNIQUE: Multiple sonographic images of the abdomen are obtained. FINDINGS: EXAM MEASUREMENTS: Liver Length: 14.2 cm Gallbladder Wall: 0.1 cm CBD: 0.2 cm Spleen: 8.1 cm Right Kidney: 10.4 x 5.5 x 4.7 cm Left Kidney: 10.0 x 4.6 x 5.2 cm Pancreas: Main pancreatic duct 2.5 mm. Hypoechoic area seen adjacent to body of pancreas= 0.7 x 0.7 x 0.6 cm. Liver: wnl Gallbladder: No stones or wall thickening Evidence for sonographic Bonilla's sign: neg CBD: wnl Spleen: Limited visualization Right Kidney: No hydronephrosis or masses seen Left Kidney: Superior pole limited by bowel gas Upper IVC: wnl Abd Aorta: No AAA visualized at time of scan IMPRESSION: 1. Small hypoechoic nodule seen adjacent to the region of the pancreas likely corresponds to a lymph node seen adjacent to the pancreas the recent CT examination. 2. No acute findings otherwise seen within the abdomen.
[2023-12-05 11:27] LABS: Glucose,Whole Blood 159 mg/dL (70-110)
--- NOTE | 2023-12-05 11:29 | P.CONS ---
History of Present Illness - Reason for Consult Consult date: 12/05/23 Abdominal pain Requesting physician: Juan Manuel Knox - Chief Complaint chest pain, abdominal pain - History of Present Illness This is a pleasant 53-year-old -L[place]anese female who presented to the emergency department yesterday evening with complaints of epigastric pain. She also reported that she was having tingling and numbness down her arms associated with it. She has a past medical history including coronary artery disease status post 3 stents, asthma, COPD, diabetes mellitus, hyperlipidemia, hypertension, myocardial infarction, chronic abdominal pain and constipation. Patient also states that she had associated nausea but no vomiting with this discomfort mainly in the epigastric region again radiating down her left arm as well. She took a nitroglycerin at home with some mild improvement but the discomfort continued and because of that she presented to the emergency department. EKG had showed sinus mechanism with ST changes anteriorly concerning for ischemia and she went for an emergent cardiac catheterization with findings of severe triple-vessel disease. Cardiothoracic has been consulted for possible CABG. Patient states she has had abdominal pain diffuse, mostly on the left lateral side for the last 4 years duration. Gastroenterology was consulted for abdominal pain. She states that she has chronic constipation and that she is taken multiple medications without any help. She has seen Aditi Francois CONTRACT DESIGNER with gastroenterology for multiple visits diagnosed with IBS constipation. She recommended several laxatives in the past. Patient states none of them worked. She underwent colonoscopy in [address] Pittman with findings of colon polyps status post polypectomy. She was here in the emergency department couple days ago and sent home at that time she had a CT of the abdomen pelvis done on 12/01/2023 that reported no evidence of urinary tract calculi or hydronephrosis no acute abnormality otherwise demonstrated. There was reported mild to moderate amounts of stool throughout colon without focal abnormality demonstrated and no obstruction. Review of Systems REVIEW OF SYSTEMS: CARDIOPULMONARY: N came in with complaints of chest/epigastric pain. no shortness of breath. Gastrointestinal: Patient reports diffuse abdominal pain, mostly in the left lateral side that has been ongoing for 4 years. Mild nausea, no vomiting. No hematemesis, coffee-ground emesis. No rectal bleeding, or melena. Chronic constipation. GENITOURINARY: No dysuria or hematuria. MUSCULOSKELETAL: Reports normal range of motion. SKIN: No rashes. No jaundice. ENDOCRINE: No chills, fevers. No excessive weight gain or loss. No polydipsia or polyuria. PSYCHIATRIC: Unremarkable. NEUROLOGY: No change in mental status. Denies dizziness, headache. ENT: Vision unremarkable. CONSTITUTIONAL: No recent weight loss. No fever, chills, night sweats. Past Medical History Past Medical History: Asthma, COPD, Diabetes Mellitus, Hyperlipidemia, Hypertension, Myocardial Infarction ([place]), Musculoskeletal Disorder, Thyroid Disorder Additional Past Medical History / Comment(s): Back Pain, right shoulder pain, Hx Pituitary Tumor, BENIGN. Thyroid disorder. 3 heart attacks March 2022, 3 stents placed. Last Myocardial Infarction Date:: 10/29/22 History of Any Multi-Drug Resistant Organisms: None Reported Past Surgical History: Section, Heart Catheterization With Stent, Tubal Ligation Additional Past Surgical History / Comment(s): Pituitary Tumor Removed. colonoscopy, PAIN CLINIC PROCEDURES stents x3 c section x4 Past Anesthesia/Blood Transfusion Reactions: No Reported Reaction Date of Last Stent Placement:: april 28 2020 Past Psychological History: Anxiety, Depression Smoking Status: Former smoker - Past Family History Mother History Unknown: Yes Family Medical History: Deep Vein Thrombosis (DVT) Additional Family Medical History / Comment(s): Mother is alive at age 67 with history of coronary artery disease and three-vessel CABG. Daughter(s) History Unknown: Yes Family Medical History: Deep Vein Thrombosis (DVT) Additional Family Medical History / Comment(s): Patient has a total of 9 children with no major medical problems. Father History Unknown: Yes Family Medical History: Cancer Additional Family Medical History / Comment(s): Father is alive with no history of coronary artery disease. History of Prostate Cancer Sister(s) History Unknown: Yes Additional Family Medical History / Comment(s): The patient has 4 sisters and 1 brother. One sister had a myocardial infraction at age 40. Medications and Allergies Home Medications Medication Instructions Recorded Confirmed Type Aspirin EC [Ecotrin Low Dose] 81 mg PO DAILY 05/05/20 12/05/23 History Atorvastatin [Lipitor] 80 mg PO HS 05/05/20 12/05/23 History Nitroglycerin Sl Tabs [Nitrostat] 0.4 mg SL Q5M PRN 05/05/20 12/05/23 History Cholecalciferol [Vitamin D3 (125 125 mcg PO DAILY 01/17/22 12/05/23 History Mcg = 5000 Iu)] Isosorbide Mononitrate ER [Imdur] 30 mg PO DAILY 01/19/22 12/05/23 History metFORMIN HCL [Glucophage] 1,000 mg PO DAILY 01/19/22 12/05/23 History hydroCHLOROthiazide [Hydrodiuril] 25 mg PO DAILY #60 tab 04/19/23 12/05/23 Rx hydrALAZINE HCL [Apresoline] 100 mg PO DAILY 06/15/23 12/05/23 History Albuterol Inhaler [Ventolin Hfa 2 puff INHALATION RT-QID PRN 12/02/23 12/05/23 History Inhaler] Cider Vinegar [Apple Cider Vinegar] 300 mg PO TID 12/02/23 12/05/23 History Ibuprofen [Motrin] 800 mg PO DAILY PRN 12/02/23 12/05/23 History Losartan Potassium 50 mg PO DAILY 12/02/23 12/05/23 History Metoprolol Succinate [Toprol XL] 50 mg PO DAILY 12/02/23 12/05/23 History Naproxen Sodium [Aleve] 220 mg PO BID PRN 12/02/23 12/05/23 History Ondansetron Odt [Zofran Odt] 4 mg PO Q12HR PRN 12/02/23 12/05/23 History Docusate [Colace] 100 mg PO DAILY PRN 12/04/23 12/05/23 History Allergies Allergy/AdvReac Type Severity Reaction Status Date / Time peanut Allergy HIVES Verified 12/05/23 07:36 rice Allergy Rash/Hives Verified 12/05/23 07:36 seasonal Allergy Rash/Hives Uncoded 12/05/23 07:36 Physical Exam Vitals: Vital Signs Temp Pulse Resp BP Pulse Ox 12/05/23 06:00 72 19 177/89 100 12/05/23 05:45 76 16 164/78 100 12/05/23 05:30 80 19 132/76 100 12/05/23 05:15 73 19 153/74 100 12/05/23 05:00 71 18 147/80 100 12/05/23 04:45 68 10 L 119/57 100 12/05/23 04:30 75 18 124/65 98 12/05/23 04:15 74 18 134/66 96 02/14/24 04:00 71 18 150/81 98 12/05/23 03:45 80 19 133/69 100 12/05/23 03:30 74 18 146/72 92 L 12/05/23 03:15 77 18 134/73 98 12/05/23 03:00 73 17 140/73 98 12/05/23 02:45 78 13 135/85 96 12/05/23 02:30 82 17 94 L 12/05/23 02:15 81 16 95 12/05/23 02:00 81 16 95 12/05/23 01:45 82 14 95 12/05/23 01:30 97.7 F 80 12 91 L 12/05/23 01:20 85 15 140/74 96 12/05/23 01:10 97.7 F 85 17 12/04/23 23:13 110 H 18 130/103 12/04/23 23:10 108 H 22 157/93 12/04/23 22:29 97.8 F 120 H 24 164/91 100 Intake and Output 12/04/23 12/05/23 12/05/23 22:59 06:59 14:59 Intake Total 781.20 Output Total 0 Balance 781.20 Intake: IV 775 Sodium Chloride 0.9% 1, 375 000 ml @ 75 mls/hr IV . [id number] TIERA Rx#:[id number] Intake, IV Titration 6.20 Amount Nitroglycerin-D5w Pmx 50 6.20 mg In Dextrose/Water 1 250ml.bag @ 5 MCG/MIN 1.5 mls/hr IV .Q24H TIERA Rx#: [id number] Output: Urine 0 Other: Voiding Method External Catheter Weight 70.307 kg 75.9 kg ABP, PAP, CO, CI - Last 8 Hours Arterial Blood Pressure 149/64 Arterial Blood Pressure 161/73 Arterial Blood Pressure 138/64 Arterial Blood Pressure 148/70 Arterial Blood Pressure 150/73 Arterial Blood Pressure 140/68 Arterial Blood Pressure 146/70 Arterial Blood Pressure 182/80 General appearance: The patient is alert, oriented, appears in no acute distress. HET: Head is normocephalic and atraumatic. Conjunctiva pink. Sclera anicteric. Neck: Supple without lymphadenopathy. Trachea midline. Heart: Regular. Lungs: Equal expansion, normal respiratory effort. Abdomen: Soft, diffuse tenderness, nondistended with bowel sounds. No guarding or rigidity. Skin: No rashes. No jaundice. Extremities: Normal skin color and turgor. No pedal edema. Neurological: No focal deficits. Alert and oriented x3. Results CBC & Chem 7: 12/05/23 13:59 12/05/23 05:51 Labs: Abnormal Lab Results - Last 24 Hours (Table) 12/04/23 12/05/23 12/05/23 Range/Units 22:43 01:11 05:51 Chloride 112 H (98-107) mmol/L Creatinine 0.45 L (0.52-1.04) mg/dL Glucose 188 H 125 H (74-99) mg/dL POC Glucose (mg/dL) 160 H (70-110) mg/dL AST 44 H (14-36) U/L ALT 37 H (4-34) U/L 12/05/23 Range/Units 06:26 Chloride (98-107) mmol/L Creatinine (0.52-1.04) mg/dL Glucose (74-99) mg/dL POC Glucose (mg/dL) 126 H (70-110) mg/dL AST (14-36) U/L ALT (4-34) U/L Comments: Chest x-ray reports as normal Assessment and Plan (1) Chronic abdominal pain Narrative/Plan: 53-year-old female that came in with epigastric/chest pain with significant coronary artery disease status post stenting in the past went for emergent cardiac catheterization and was found to have severe triple-vessel disease. Patient was also complaining of abdominal pain, in the epigastric region, radiating to her arm. Also diffuse abdominal pain worse on the left states this has been going on for last 4 years duration as well and has chronic constipation. Patient states that she has used several laxatives in the past and nothing helped so she is not taking anything at this time. She had some nausea but no vomiting. Abdominal pain likely related to chronic constipation with recommendation for regular bowel regimen however patient is resistant for any treatment at this time. Last colonoscopy [address] Pittman s/p polypectomy. Current Visit: Yes Status: Acute Code(s): R10.9 - UNSPECIFIED ABDOMINAL PAIN; G89.29 - OTHER CHRONIC PAIN SNOMED Code(s): 805870412 (2) Chronic constipation Narrative/Plan: Irritable bowel syndrome with constipation. Recommended several laxatives to help with constipation and bowel movement. Patient is refusing any recommended treatment at this time. Current Visit: Yes Status: Acute Code(s): K59.09 - OTHER CONSTIPATION S NOMED Code(s): 712223540 (3) Hypertension Current Visit: Yes Status: Acute Code(s): I10 - ESSENTIAL (PRIMARY) HYPERTENSION SNOMED Code(s): 45201059 (4) Coronary artery disease Current Visit: Yes Status: Acute Code(s): I25.10 - ATHSCL HEART DISEASE OF [place] CORONARY ARTERY W/O ANG PCTRS SNOMED Code(s): 32216562 Plan: 1. Continue symptomatic and supportive care 2. Continue cardiac workup and management 3. Recommended laxatives including lactulose, MiraLAX, magnesium citrate, and enema however patient is declining any laxative treatment at this time. 4. Recommended patient follow-up with Dr. Pittman who she has seen in the past for her colonoscopy as an outpatient 5. Protonix 40 mg daily, GI prophylaxis Thank you for this consultation, we will sign off at this time. Dr. Ami Grijalva I agree with the dictator's note, documented as a scribe by Yeimy Lawrence.
[2023-12-05] MEDS: HYDROcodone/APAP 5-325MG 1 EACH TAB PO PRN (12:05)
[2023-12-05] MEDS: ACETAMINOPHEN TAB 325 MG TAB PO PRN (12:14)
[2023-12-05] MEDS: PANTOPRAZOLE 40 MG/10 ML VIAL IVP SCH (12:15)
[2023-12-05 12:55] LABS: Appearance,Urine Clear (Clear); Bilirubin,Urine Negative (Negative); Blood,Urine Negative (Negative); Color,Urine Yellow; Glucose,Urine (UA) 1+ (Negative); Ketones,Urine Negative (Negative); Leukocyte Esterase,Urine Negative (Negative); Nitrite,Urine Negative (Negative); Protein,Urine Negative (Negative); Specific Gravity,Urine 1.042 (1.001-1.035); Urobilinogen,Urine <2.0 mg/dL (<2.0)
[2023-12-05 14:33] LABS: HCT 34.1 % (34.0-46.0); HGB 11.5 gm/dL (11.4-16.0); MCH 29.5 pg (25.0-35.0); MCHC 33.6 g/dL (31.0-37.0); MCV 87.6 fL (80.0-100.0); Platelet Count 196 k/uL (150-450); RBC 3.89 m/uL (3.80-5.40); RDW 13.2 % (11.5-15.5)
[2023-12-05 14:34] LABS: Magnesium 1.4 mg/dL (1.6-2.3)
--- NOTE | 2023-12-05 14:40 | P.CNPUL ---
History of Present Illness Consult date: 12/05/23 Requesting physician: Tylor Escoto Reason for consult: other (Preop clearance for CABG) Chief complaint: Epigastric pain History of present illness: This is a 53-year-old female patient with a known history of coronary artery disease with previous stent placement x 3, diabetes mellitus, hypertension, hyperlipidemia, chronic obstructive pulmonary disease from previous chronic tobacco dependence stating she quit 10 years ago, hypothyroidism, anxiety/depression. She presented here to the emergency room last evening with complaints of epigastric discomfort and tingling in her arms. She was recently hospitalized for similar pain and was to follow-up with GI services and her child protective services specialist both this week. EKG revealed possible septal myocardial infarction. Troponins were negative. She was taken to [facility] last evening and found to have severe disease involving the ostial and proximal left main coronary artery with stenosis of 73%. Severe disease involving the ostial left anterior descending artery. Severe disease involving the proximal right coronary artery. She was seen and evaluated by cardiothoracic surgery who is planning for coronary artery revascularization. She is seen today in consultation in the intensive care unit. Chest x-ray reveals no acute pulmonary process is currently sitting up in a chair at the bedside. Maintaining O2 saturation in the 90s on room air. Denies any shortness of breath, cough or congestion. Denies any chest pain or tingling or numbness of the arms currently. She is on a nitroglycerin drip at 5 mcg/min. Lovenox for DVT proph ylaxis. Review of Systems REVIEW OF SYSTEMS: CONSTITUTIONAL: Denies any recent significant weight loss or weight gain. EYES: Denies change in vision. EARS, NOSE, MOUTH, THROAT: Denies headaches, denies sore throat. CARDIOVASCULAR: Positive for epigastric chest pain, no palpitations or syncopal episodes. RESPIRATORY: Denies shortness of breath, cough, congestion or hemoptysis. GASTROINTESTINAL: Denies change in appetite, denies abdominal pain GENITOURINARY: Denies hematuria, denies infections. MUSKULOSKELETAL: Positive for tingling and numbness of the upper extremities. INTEGUMENTARY: Denies rash, denies eczema. NEUROLOGICAL: Denies recent memory loss, no recent seizure activity. PSYCHIATRIC: Denies anxiety, denies depression. HEMATOLOGIC/LYMPHATIC: Denies anemia, denies enlarged lymph nodes. Past Medical History Past Medical History: Asthma, Coronary Artery Disease (CAD), Chest Pain / Angina, COPD, Diabetes Mellitus, Hyperlipidemia, Hypertension, Myocardial Infarction ([place]), Musculoskeletal Disorder, Thyroid Disorder Additional Past Medical History / Comment(s): Back Pain, right shoulder pain, Hx Pituitary Tumor, BENIGN. 3 heart attacks March 2022, 3 stents placed. [facility] Last Myocardial Infarction Date:: 10/29/22 History of Any Multi-Drug Resistant Organisms: None Reported Past Surgical History: Section, Heart Catheterization With Stent, Tubal Ligation Additional Past Surgical History / Comment(s): Pituitary Tumor Removed. colonoscopy, PAIN CLINIC PROCEDURES stents x3 c section x4 Past Anesthesia/Blood Transfusion Reactions: No Reported Reaction Date of Last Stent Placement:: april 28 2020 Past Psychological History: Anxiety, Depression Smoking Status: Former smoker Past Alcohol Use History: Rare Past Drug Use History: Marijuana Additional Drug Use History / Comment(s): daily marijuana - Past Family History Mother History Unknown: Yes Family Medical History: Deep Vein Thrombosis (DVT) Additional Family Medical History / Comment(s): Mother is alive at age 67 with history of coronary artery disease and three-vessel CABG @<60 years old. Daughter(s) History Unknown: Yes Family Medical History: Deep Vein Thrombosis (DVT) Additional Family Medical History / Comment(s): Patient has a total of 9 children with no major medical problems. Father History Unknown: Yes Family Medical History: Cancer Additional Family Medical History / Comment(s): Father is alive with no history of coronary artery disease. History of Prostate Cancer Sister(s) History Unknown: Yes Additional Family Medical History / Comment(s): The patient has 4 sisters and 1 brother. One sister had a myocardial infraction at age 40. Medications and Allergies Home Medications Medication Instructions Recorded Confirmed Type Aspirin EC [Ecotrin Low Dose] 81 mg PO DAILY 05/05/20 12/05/23 History Atorvastatin [Lipitor] 80 mg PO HS 05/05/20 12/05/23 History Nitroglycerin Sl Tabs [Nitrostat] 0.4 mg SL Q5M PRN 05/05/20 12/05/23 History Cholecalciferol [Vitamin D3 (125 125 mcg PO DAILY 01/17/22 12/05/23 History Mcg = 5000 Iu)] Isosorbide Mononitrate ER [Imdur] 30 mg PO DAILY 01/19/22 12/05/23 History metFORMIN HCL [Glucophage] 1,000 mg PO DAILY 01/19/22 12/05/23 History hydroCHLOROthiazide [Hydrodiuril] 25 mg PO DAILY #60 tab 04/19/23 12/05/23 Rx hydrALAZINE HCL [Apresoline] 100 mg PO DAILY 06/15/23 12/05/23 History Albuterol Inhaler [Ventolin Hfa 2 puff INHALATION RT-QID PRN 12/02/23 12/05/23 History Inhaler] Cider Vinegar [Apple Cider Vinegar] 300 mg PO TID 12/02/23 12/05/23 History Ibuprofen [Motrin] 800 mg PO DAILY PRN 12/02/23 12/05/23 History Losartan Potassium 50 mg PO DAILY 12/02/23 12/05/23 History Metoprolol Succinate [Toprol XL] 50 mg PO DAILY 12/02/23 12/05/23 History Naproxen Sodium [Aleve] 220 mg PO BID PRN 12/02/23 12/05/23 History Ondansetron Odt [Zofran Odt] 4 mg PO Q12HR PRN 12/02/23 12/05/23 History Docusate [Colace] 100 mg PO DAILY PRN 12/04/23 12/05/23 History Allergies Allergy/AdvReac Type Severity Reaction Status Date / Time peanut Allergy HIVES Verified 12/05/23 07:36 rice Allergy Rash/Hives Verified 12/05/23 07:36 seasonal Allergy Rash/Hives Uncoded 12/05/23 07:36 Physical Exam Vitals: Vital Signs Temp Pulse Resp BP Pulse Ox 12/05/23 13:00 84 17 146/65 100 12/05/23 12:30 87 22 125/69 100 12/05/23 12:00 77 8 L 137/73 95 12/05/23 11:30 70 15 161/83 100 12/05/23 11:00 71 11 L 166/101 100 12/05/23 10:45 80 24 166/101 100 12/05/23 10:30 79 20 161/75 12/05/23 10:15 78 18 150/84 100 12/05/23 10:00 70 17 174/77 100 12/05/23 09:45 73 11 L 175/95 100 12/05/23 09:30 73 14 164/92 100 12/05/23 09:15 78 40 H 169/97 100 12/05/23 09:00 76 21 170/89 100 12/05/23 08:45 21 175/85 100 12/05/23 08:30 79 16 164/80 100 12/05/23 08:15 81 19 149/85 100 12/05/23 08:00 98.1 F 74 16 190/89 100 12/05/23 07:45 81 20 171/78 100 12/05/23 07:30 78 22 119/69 100 12/05/23 07:15 72 14 158/83 100 12/05/23 07:00 75 19 187/91 99 12/05/23 06:00 72 19 177/89 100 12/05/23 05:45 76 16 164/78 100 12/05/23 05:30 80 19 132/76 100 12/05/23 05:15 73 19 153/74 100 12/05/23 05:00 71 18 147/80 100 12/05/23 04:45 68 10 L 119/57 100 12/05/23 04:30 75 18 124/65 98 12/05/23 04:15 74 18 134/66 96 12/05/23 04:00 71 18 150/81 98 12/05/23 03:45 80 19 133/69 100 12/05/23 03:30 74 18 146/72 92 L 12/05/23 03:15 77 18 134/73 98 12/05/23 03:00 73 17 140/73 98 12/05/23 02:45 78 13 135/85 96 12/05/23 02:30 82 17 94 L 12/05/23 02:15 81 16 95 12/05/23 02:00 81 16 95 12/05/23 01:45 82 14 95 12/05/23 01:30 97.7 F 80 12 91 L 12/05/23 01:20 85 15 140/74 96 12/05/23 01:10 97.7 F 85 17 12/04/23 23:13 110 H 18 130/103 12/04/23 23:10 108 H 22 157/93 12/04/23 22:29 97.8 F 120 H 24 164/91 100 Intake and Output 12/04/23 12/05/23 12/05/23 22:59 06:59 14:59 Intake Total 781.20 70 Output Total 0 550 Balance 781.20 -480 Intake: IV 775 70 0.9 kvo 70 Sodium Chloride 0.9% 1, 375 000 ml @ 75 mls/hr IV . [id number] [facility] Rx#:[id number] Intake, IV Titration 6.20 Amount Nitroglycerin-D5w Pmx 50 6.20 mg In Dextrose/Water 1 250ml.bag @ 5 MCG/MIN 1.5 mls/hr IV .Q24H TIERA Rx#: [id number] Output: Urine 0 550 Other: Voiding Method External Catheter Bedside Commode # Voids 1 Weight 70.307 kg 75.9 kg GENERAL EXAM: Alert, pleasant 53-year-old female, sitting up in a chair, on room air, comfortable in no apparent distress. HEAD: Normocephalic. EYES: Normal reaction of pupils, equal size. NOSE: Clear with pink turbinates. THROAT: No erythema or exudates. NECK: No masses, no JVD. CHEST: No chest wall deformity. LUNGS: Equal air entry with no crackles, wheeze, rhonchi or dullness. CVS: S1 and S2 normal with no audible murmur, regular rhythm. ABDOMEN: No hepatosplenomegaly, normal bowel sounds, no guarding or rigidity. SPINE: No scoliosis or deformity SKIN: No rashes CENTRAL NERVOUS SYSTEM: No focal deficits, tone is normal in all 4 extremities. EXTREMITIES: There is no peripheral edema. No clubbing, no cyanosis. Peripheral pulses are intact. Results - Laboratory Findings CBC and BMP: 12/04/23 22:43 12/05/23 05:51 PT/INR, D-dimer PT 10.9 sec (10.0-12.5) 12/04/23 22:40 INR 1.0 (<1.2) 12/04/23 22:40 Abnormal lab findings: Abnormal Labs 12/04/23 12/05/23 12/05/23 22:43 01:11 05:51 Chloride 112 H Creatinine 0.45 L Glucose 188 H 125 H POC Glucose (mg/dL) 160 H AST 44 H ALT 37 H Ur Specific [place] Urine Glucose (UA) 12/05/23 12/05/23 12/05/23 06:26 11:26 12:30 Chloride Creatinine Glucose POC Glucose (mg/dL) 126 H 159 H AST ALT Ur Specific [place] 1.042 H Urine Glucose (UA) 1+ H - Diagnostic Findings Chest x-ray: image reviewed (No acute pulmonary process) Assessment and Plan Assessment: Severe triple-vessel coronary artery disease Previous history of coronary disease with stenting to the mid LAD and first obtuse marginal branch Chronic obstructive pulmonary disease, currently inactive and stable Former smoker History of marijuana use Hypertension Hyperlipidemia Diabetes mellitus Anxiety/depression Plan: The patient was seen and evaluated Chest x-ray, labs and medications reviewed Currently stable and on room air Will obtain bedside pulmonary function test Preop recommendations after testing reviewed Remains on a nitroglycerin drip Lovenox for DVT prophylaxis We will continue to follow and make further recommendations based on her clinical status I have personally seen and examined the patient, performed the documentation and the assessment and plan as written. Number of minutes spent on the visit: 20.
--- NOTE | 2023-12-05 15:01 | CA ---
Transthoracic Echo Report Name: Eleazar Balbuena Age: 53 Gender: F : 1970 Exam Date: 12/05/2023 12:34 Exam Location: [facility] Ht (in): Wt (lb): Ordering Physician: Walker Osborn MD Attending/Referring Phys: Customer Engagement Representative Srinivasan Matias RD Procedure CPT: Indications: STEMI, triple vessel Cardiac Hx: Technical Quality: Fair Contrast 1: Total Dose (mL): Contrast 2: Total Dose (mL): MEASUREMENTS (Male / Female) Normal Values 2D ECHO LV Diastolic Diameter PLAX 4.5 cm 4.2 - 5.9 / 3.9 - 5.3 cm LV Systolic Diameter PLAX 3.4 cm IVS Diastolic Thickness 0.9 cm 0.6 - 1.0 / 0.6 - 0.9 cm LVPW Diastolic Thickness 1.1 cm 0.6 - 1.0 / 0.6 - 0.9 cm LV Relative Wall Thickness 0.4 RV Internal Dim ED PLAX 2.7 cm LVOT Diameter 1.7 cm Aortic Root Diameter 2.6 cm LA Systolic Diameter LX 2.6 cm 3.0 - 4.0 / 2.7 - 3.8 cm LV Diastolic Volume MOD BP 42.2 cm??? 67 - 155 / 56 - 104 cm??? LV Systolic Volume MOD BP 15.6 cm??? 22 - 58 / 19 - 49 cm??? LV Ejection Fraction MOD BP 63.2 % >= 55 % LV Diastolic Volume MOD 4C 49.9 cm??? LV Systolic Volume MOD 4C 16.9 cm??? LV Ejection Fraction MOD 4C 66.2 % LV Diastolic Length 4C 7.3 cm LV Systolic Length 4C 5.9 cm LV Diastolic Volume MOD 2C 35.3 cm??? LV Systolic Volume MOD 2C 14.3 cm??? LV Ejection Fraction MOD 2C 59.5 % LV Diastolic Length 2C 7.2 cm LV Systolic Length 2C 6.0 cm LA Volume 36.4 cm??? 18 - 58 / 22 - 52 cm??? DOPPLER AV Peak Velocity 198.8 cm/s AV Peak Gradient 15.8 mmHg AV Mean Velocity 133.5 cm/s AV Mean Gradient 8.3 mmHg AV Velocity Time Integral 37.2 cm LVOT Peak Velocity 110.0 cm/s LVOT Peak Gradient 4.8 mmHg LVOT Velocity Time Integral 22.1 cm LVOT Stroke Volume 50.4 cm??? AV Area Cont Eq vti 1.4 cm??? AV Area Cont Eq pk 1.3 cm??? MV Peak Velocity 89.4 cm/s MV Peak Gradient 3.2 mmHg MV Mean Velocity 50.4 cm/s MV Mean Gradient 1.2 mmHg MV Velocity Time Integral 30.3 cm Mitral E Point Velocity 97.2 cm/s Mitral A Point Velocity 91.8 cm/s Mitral E to A Ratio 1.1 MV Deceleration Time 178.6 ms MV E' Velocity 5.4 cm/s Mitral E to MV E' Ratio 17.8 TR Peak Velocity 301.3 cm/s TR Peak Gradient 36.3 mmHg Right Ventricular Systolic Press 41.3 mmHg PV Peak Velocity 97.3 cm/s PV Peak Gradient 3.8 mmHg FINDINGS Left Ventricle Normal LV size and wall thickness.left ventricular ejection fraction is estimated at 55-60 %. Right Ventricle Normal right ventricular size. RVSP= 41mmHg. Right Atrium Normal right atrial size. Left Atrium Normal left atrial size. Mitral Valve Structurally normal mitral valve. No mitral stenosis. No mitral regurgitation. Aortic Valve Aortic valve not well visualized. No aortic valve stenosis or regurgitation. Tricuspid Valve Structurally normal tricuspid valve. Mild to moderate TR. Pulmonic Valve Pulmonic valve not well visualized. Mild PI. Pericardium Normal pericardium. Aorta Normal size aortic bridget. CONCLUSIONS Left ventricular ejection fraction 55-60% RVSP 41 No mitral regurgitation Mild to moderate tricuspid regurgitation No pericardial effusion Previewed by: Dr. Aniceto Olmstead DO (Electronically Signed) Final Date: 05 December 2023 15:01
[2023-12-05 15:51] LABS: T4, Free (Free Thyroxine) 3.19 ng/dL (0.78-2.19)
--- NOTE | 2023-12-05 16:16 | US ---
EXAMINATION TYPE: US vein mapping BILAT DATE OF EXAM: 12/05/2023 2:34 PM COMPARISON: NONE CLINICAL INDICATION: Female, 53 years old with history of preop cardiac surgery; open heart SIDE PERFORMED: Bilateral TECHNIQUE: Lower extremity saphenous vein is examined and measured utilizing real time linear array sonography. Patient History: Smoker: n Heart Disease: y Previous DVT: n Vascular Surgery: n Discoloration: n Hypertension: n Diabetes: y Paralysis: n Varicosities: n Edema: n DUPLEX FINDINGS: Greater Saphenous: Color flow seen Measurements in mm: Right Greater Saphenous: Groin: heart cath High Thigh: 3.2 x 4.3 mm Mid Thigh: 4.1 x 5.4 mm Above Knee: 2.7 x 3.2 mm Knee: 3.3 x 3.6 mm Below Knee: 3.1 x 3.4 mm Mid Calf: 2.1 x 1.9 mm At Ankle: 2.7 x 3.2 mm Left Greater Saphenous: Groin: heart cath High Thigh: 3.6 x 3.9 mm Mid Thigh: 3.3 x 3.7 mm Above Knee: 3.1 x 3.6 mm Knee: 2.9 x 3.4 mm Below Knee: 2.1 x 2.9 mm Mid Calf: 2.4 x 2.7 mm At Ankle: 2.7 x 3.1 mm IMPRESSION: 1. Bilateral GSV measurements listed above. 2. Performing surgeon to determine viability as conduit.
[2023-12-05 16:43] LABS: Glucose,Whole Blood 192 mg/dL (70-110)
[2023-12-05] MEDS ORDERED: Magnesium Replacement Protocol 1 EACH MISC MISCELLANE PRN (17:36)
[2023-12-05] MEDS: MAGNESIUM SULFATE-D5W PMX 1 GM in DEXTROSE/WATER 1 100ML.BAG IVPB SCH (18:02)
--- NOTE | 2023-12-05 18:19 | US ---
EXAMINATION TYPE: Pre-Operative Non-Invasive Evaluation of the hand for Potential Radial Artery Yahaira , Measurements only DATE OF EXAM: 12/05/2023 2:34 PM CLINICAL INDICATION: Female, 53 years old with history of measurements only; open heart SIDE PERFORMED: Left TECHNIQUE: Radial artery is measured utilizing real time linear array sonography. Dominant hand: Right Duplex Findings: Radial Artery: Color flow seen Measurements in mm, transverse view: Left Radial: Proximal: 2.9 3.2 mm Mid: 2.7 x 2.4 mm Distal: 2.6 x 2.4 mm IMPRESSION: 1. Left radial measurements listed above. 2. Performing surgeon to determine viability as conduit.
[2023-12-05 20:23] LABS: Glucose,Whole Blood 159 mg/dL (70-110)
[2023-12-05] MEDS: ATORVASTATIN 80 MG TAB PO SCH (20:26)
--- NOTE | 2023-12-05 22:16 | PN ---
PROGRESS NOTE SUBJECTIVE: This is a 53-year-old lady who is admitted to hospital with acute coronary syndrome and underwent emergent cardiac catheterization by my associate, Dr. Villeda which revealed severe left main stenosis involving the ostial and proximal LAD and this was flow- limiting documented by an IVUS. There was also severe ostial LAD disease and high proximal RCA disease. Surgery had been consulted and the patient has abdominal discomfort and GI had been consulted for the same. This morning, she is free of chest pain. Her blood pressure is poorly controlled, but she has not taken her morning medications yet. PHYSICAL EXAMINATION: NECK: There is no jugular venous distention. Carotid upstroke is normal. There is no bruit. CHEST: Reveals good air entry bilaterally. HEART: Reveals first and second heart sounds. No gallop. EXTREMITIES: Did not reveal any edema. Her groin is free of bleeding or hematoma. LABORATORY DATA: Show that her troponins have been negative. Echo had been ordered and pending. ASSESSMENT: 1. Chest pain, status post cardiac cath showing significant left main and ostial LAD and right coronary artery disease. The patient is awaiting bypass surgery. 2. Uncontrolled hypertension. Medications have been adjusted this morning. MMODL / IJN: [id number] /
[2023-12-06 00:24] VITALS: TEMP 98.1
[2023-12-06 03:50] LABS: Chol/HDL Ratio 4.09 Ratio; LDL Cholesterol,Calculated 79.4 mg/dL (0.0-131.0)
[2023-12-06 03:57] LABS: Hepatitis A Antibody IgM Nonreactive; Hepatitis B Core IgM Nonreactive; Hepatitis B Surface Antigen Nonreactive; Hepatitis C IgG Antibody Nonreactive
[2023-12-06 05:06] LABS: HCT 36.6 % (34.0-46.0); HGB 12.1 gm/dL (11.4-16.0); MCH 28.8 pg (25.0-35.0); MCV 87.3 fL (80.0-100.0); Mean Platelet Volume 8.3; Platelet Count 207 k/uL (150-450); RBC 4.19 m/uL (3.80-5.40); RDW 13.1 % (11.5-15.5)
[2023-12-06 05:29] LABS: ALT 44 U/L (4-34); AST 42 U/L (14-36); African American GFR (CKD) >90 (>60 ml/min/1.73 sqM); Albumin 3.5 g/dL (3.5-5.0); Alkaline Phosphatase 113 U/L (38-126); Anion Gap 4 mmol/L; Blood Urea Nitrogen 16 mg/dL (7-17); Calcium 9.8 mg/dL (8.4-10.2); Carbon Dioxide 26 mmol/L (22-30); Chloride 108 mmol/L (98-107); Glucose 147 mg/dL (74-99); Magnesium 1.7 mg/dL (1.6-2.3); Non-African American GFR(CKD) >90 (>60 ml/min/1.73 sqM); Potassium 4.2 mmol/L (3.5-5.1); Sodium 138 mmol/L (137-145); Total Bilirubin 0.6 mg/dL (0.2-1.3); Total Protein 6.1 g/dL (6.3-8.2)
[2023-12-06 07:05] LABS: Glucose,Whole Blood 248 mg/dL (70-110)
--- NOTE | 2023-12-06 08:02 | US ---
EXAMINATION TYPE: US carotid duplex BILAT DATE OF EXAM: 12/06/2023 COMPARISON: US 2021 CLINICAL INDICATION: Female, 53 years old with history of preop cardiac surgery; TECHNIQUE: Carotid duplex ultrasound examination. Indirect Doppler criteria was utilized. FINDINGS: EXAM MEASUREMENTS: RIGHT: Peak Systolic Velocity (PSV) cm/sec ----- Right CCA: 95.2 ----- Right ICA: 140.2 ----- Right ECA: 89.8 ICA/CCA ratio: 1.5 RIGHT: End Diastole cm/sec ----- Right CCA: 27.0 ----- Right ICA: 56.0 ----- Right ECA: 8.6 LEFT: Peak Systolic Velocity (PSV) cm/sec ----- Left CCA: 89.6 ----- Left ICA: 140.4 ----- Left ECA: 66.7 ICA/CCA ratio: 1.6 LEFT: End Diastole cm/sec ----- Left CCA: 27.6 ----- Left ICA: 54.6 ----- Left ECA: 12.8 VERTEBRALS (direction of flow): Right Vertebral: Antegrade Left Vertebral: Antegrade Rhythm: Normal IMPRESSION: Mildly elevated velocities within the bilateral proximal ICAs could reflect turbulent flow or moderat e (50-69%) ICA stenosis. The former is favored given the lack of any significant plaque narrowing. Criteria for Assigning % of Stenosis / Diameter reduction (Estimation based on the indirect measurements of the internal carotid artery velocities (ICA PSV). 1. Normal (no stenosis)=ICA PSV < 125 cm/s: ratio < 2.0: ICA EDV<40 cm/s. 2. Less than 50% stenosis=ICA PSV < 125 cm/s: ratio < 2.0: ICA EDV<40 cm/s. 3. 50 to 69% stenosis=ICA PSV of 125 to 230 cm/s: ration 2.0 ? 4.0: ICA EDV 40-100 cm/s. 4. Greater than 70% stenosis to near occlusion= ICA PSV > 230 cm/s: ratio > 4.0: ICA EDV > 100 cm/s. 5. Near occlusion= ICA PSV velocities may be low or undetectable: variable ratio and ICA EDV. 6. Total occlusion=unable to detect flow.
--- NOTE | 2023-12-06 08:58 | P.PN ---
Subjective Progress Note Date: 12/06/23 Principal diagnosis: Coronary artery disease, uncontrolled hypertension. History of CAD with prior stenting of the left anterior descending artery as well as left circumflex/OM, h ypertension, hyperlipidemia, diabetes, hypothyroid, asthma, chronic back and neck pain, daily marijuana use, previous tobacco dependence, and family history of premature coronary artery disease The patient was seen and examined this morning sitting up in bed on the intensive care unit with Dr. Escoto in no acute distress. Denies chest pain or shortness of breath at this time. Blood pressure was a little better controlled last night although was high again this morning. Remains in sinus rhythm. Case discussed between Dr. Escoto and Dr. Osborn. Recommendations are for discharge to home after optimization to follow-up in the office next week to plan for open heart surgery. Dr. Osborn indicated he had discussed this with Dr. Ojeda, the patient's primary manager performance, and he was in agreement as well. Dr. Escoto discussed this plan with the patient and she appears to be in agreement at this time. Also patient's bedside spirometry demonstrated severe restriction with FEV1 48% of predicted, however Dr. Dyson indicated it was not a great effort and he would like a full pulmonary function test completed in the office. No other new concerns. Objective - Vital Signs Vital signs: Vital Signs Temp 98.1 F 12/06/23 00:00 Pulse 70 12/06/23 08:00 Resp 13 12/06/23 08:00 BP 182/70 12/06/23 08:00 Pulse Ox 98 12/06/23 08:00 FiO2 Intake & Output 12/05/23 12/06/23 12/06/23 18:59 06:59 18:59 Intake Total 252.075 330 Output Total 800 800 0 Balance -547.925 -470 0 Weight 80 kg Intake: IV 210 130 0.9 kvo 110 30 Magnesium Sulfate-D5w Pmx 100 100 1 gm In Dextrose/Water 1 100ml.bag @ 100 mls/hr IVPB Q1H [facility] Rx#: [id number] Intake, IV Titration 42.075 Amount Nitroglycerin-D5w Pmx 50 42.075 mg In Dextrose/Water 1 250ml.bag @ 5 MCG/MIN 1.5 mls/hr IV .Q24H [facility] Rx#: [id number] Oral 200 Output: Urine 800 800 0 Other: Voiding Method Bedside Commode Bedside Commode Bedside Commode # Voids 1 0 0 ABP, PAP, CO, CI - Last Documented Arterial Blood Pressure 149/64 - Exam CONSTITUTIONAL: Appears comfortable, cooperative, no acute distress RESPIRATORY: Lungs sounds diminished bilaterally. Respirations even, nonlabored. Currently on room air with oxygen saturation 98%. Able to achieve 1000 mL on incentive spirometry. Strong cough. CARDIOVASCULAR: S1, S2 present. Regular rate and rhythm, sinus rhythm on telemetry. Palpable peripheral pulses bilaterally. No edema present. No calf pain or tenderness noted. GASTROINTESTINAL: Abdomen soft, nontender, nondistended. Active bowel sounds present 4 quadrants. Tolerating diet GENITOURINARY: Continues to void, output 1350 mL in the last 24 hours INTEGUMENTARY: Skin is warm and dry NEUROLOGIC: Cranial nerves II through XII intact MUSKULOSKELETAL: Able to move all extremities, strength equal bilaterally, gait normal PSYCHIATRIC: Alert and oriented to person place and time, appropriate affect, intact judgment and insight - Allied health notes Allied health notes reviewed: nursing - Labs CBC & Chem 7: 12/06/23 04:08 12/06/23 04:08 Labs: Abnormal Lab Results - Last 24 Hours (Table) 12/05/23 12/05/23 12/05/23 Range/Units 11:26 12:30 13:59 Chloride (98-107) mmol/L Glucose (74-99) mg/dL POC Glucose (mg/dL) 159 H (70-110) mg/dL Hemoglobin A1c 7.8 H (<=6.0) % Magnesium (1.6-2.3) mg/dL AST (14-36) U/L ALT (4-34) U/L Total Protein (6.3-8.2) g/dL HDL Cholesterol (40.00-60.00) mg/dL TSH (0.465-4.680) mIU/L Free T4 (0.78-2.19) ng/dL Ur Specific [place] 1.042 H (1.001-1.035) Urine Glucose (UA) 1+ H (Negative) 12/05/23 12/05/23 12/05/23 Range/Units 13:59 16:41 20:21 Chloride (98-107) mmol/L Glucose (74-99) mg/dL POC Glucose (mg/dL) 192 H 159 H (70-110) mg/dL Hemoglobin A1c (<=6.0) % Magnesium 1.4 L (1.6-2.3) mg/dL AST (14-36) U/L ALT (4-34) U/L Total Protein (6.3-8.2) g/dL HDL Cholesterol 34.20 L (40.00-60.00) mg/dL TSH <0.015 L (0.465-4.680) mIU/L Free T4 3.19 H (0.78-2.19) ng/dL Ur Specific [place] (1.001-1.035) Urine Glucose (UA) (Negative) 12/06/23 12/06/23 Range/Units 04:08 07:02 Chloride 108 H (98-107) mmol/L Glucose 147 H (74-99) mg/dL POC Glucose (mg/dL) 248 H (70-110) mg/dL Hemoglobin A1c (<=6.0) % Magnesium (1.6-2.3) mg/dL AST 42 H (14-36) U/L ALT 44 H (4-34) U/L Total Protein 6.1 L (6.3-8.2) g/dL HDL Cholesterol (40.00-60.00) mg/dL TSH (0.465-4.680) mIU/L Free T4 (0.78-2.19) ng/dL Ur Specific [place] (1.001-1.035) Urine Glucose (UA) (Negative) Assessment and Plan Assessment: Coronary artery disease and prior stenting of the left anterior descending artery as well as left circumflex/OM Uncontrolled hypertension Hyperlipidemia, cholesterol 140, LDL 79 Diabetes, hemoglobin A1c 7.8% Hypothyroid, TSH < 0.015, free T4 3.19 Asthma Chronic back and neck pain Daily marijuana use Previous tobacco dependence Severe restrictive lung disease, preoperative FEV1 48% of predicted Family history of premature coronary artery disease Plan: Continue to maximize medical therapy with aspirin, statin, beta-xavi, maximize antihypertensives Increase activity as tolerated Encourage incentive spirometry From cardiothoracic surgery standpoint the patient should be discharged to home to follow-up in the office next week to plan for open heart surgery, will make follow-up appointment Patient will need to follow-up with marking clerk as well for full pulmonary function test Continue preoperative teaching Medical management of other comorbidities per internal medicine, cardiology
[2023-12-06 09:22] VITALS: BP 130/45
[2023-12-06] MEDS: MAGNESIUM SULFATE-D5W PMX 1 GM in DEXTROSE/WATER 1 100ML.BAG IVPB ONE (09:27)
[2023-12-06] MEDS: LOSARTAN 50 MG TAB PO SCH (09:28)
[2023-12-06 10:53] VITALS: PULSE 65; RESP 13
--- NOTE | 2023-12-06 11:09 | PN ---
PROGRESS NOTE SUBJECTIVE: This is a 53-year-old lady, who presented to hospital with chest pain and underwent emergent cardiac catheterization by Dr. Osborn, and was found to have significant distal left main ostial LAD and right coronary artery disease. The patient was evaluated by CT Surgery, who recommended that the patient be discharged home, that she follow up in CT Surgery office, and then have surgery scheduled as an outpatient. MEDICATIONS: The patient is currently on: 1. Aspirin. 2. Lipitor. 3. . 4. Toprol-XL 50 mg daily. Her blood pressures have been poorly controlled. I will increase the dose of losartan to 100 mg daily. PHYSICAL EXAMINATION: GENERAL: She is comfortable at rest. VITAL SIGNS: Stable. NECK: There is no jugular venous distention. CHEST: Reveals good air entry bilaterally. HEART: Reveals first and second heart sounds. No gallop. No murmur. EXTREMITIES: Did not reveal any edema. IMAGING DATA: Her recent echocardiogram showed normal LV systolic function and mild pulmonary hypertension. ASSESSMENT AND PLAN: 1. Coronary artery disease, awaiting bypass surgery. 2. Hypertension. We will adjust the antihypertensives. Possible discharge home later today and follow up with Dr. Ojeda in the office. MMODL / IJN: [id number] /
--- NOTE | 2023-12-06 12:08 | P.PN ---
Subjective Progress Note Date: 12/06/23 Principal diagnosis: Triple-vessel coronary artery disease This is a 53-year-old female patient with a known history of coronary artery disease with previous stent placement x 3, diabetes mellitus, hypertension, hyperlipidemia, chronic obstructive pulmonary disease from previous chronic tobacco dependence stating she quit 10 years ago, hypothyroidism, anxiety/depression. She presented here to the emergency room last evening with complaints of epigastric discomfort and tingling in her arms. 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 EKG revealed possible septal myocardial infarction. Troponins were negative. She was taken to [facility] last evening and found to have severe disease involving the ostial and proximal left main coronary artery with stenosis of 73%. Severe disease involving the ostial left anterior descending artery. Severe disease involving the proximal right coronary artery. She was seen and evaluated by cardiothoracic surgery who is planning for coronary artery revascularization. She is seen today in consultation in the intensive care unit. Chest x-ray reveals no acute pulmonary process is currently sitting up in a chair at the bedside. Maintaining O2 sa turation in the 90s on room air. Denies any shortness of breath, cough or congestion. Denies any chest pain or tingling or numbness of the arms currently. She is on a nitroglycerin drip at 5 mcg/min. Lovenox for DVT prophylaxis. Patient was placed today on 12/06/2023, remains in the ICU, patient is on room air, not in any distress, denies any chest pain, her bedside spirometry showed possible restriction, hence I recommended a full dedicated PFT to be done in the office on outpatient basis. Apparently the patient is not having her surgery during this hospitalization, surgery is recommending discharging the patient home and arrange for surgery in the next couple of weeks. In the meantime the patient is asymptomatic, doing well, chest x-ray is reassuring, labs are basically unremarkable. Hepatitis screen is negative Objective - Vital Signs Vital signs: Vital Signs Temp 98.1 F 12/06/23 00:00 Pulse 65 12/06/23 10:00 Resp 13 12/06/23 10:00 BP 130/45 12/06/23 10:00 Pulse Ox 99 12/06/23 10:00 FiO2 Intake & Output 12/05/23 12/06/23 12/06/23 18:59 06:59 18:59 Intake Total 252.075 330 100 Output Total 800 800 0 Balance -547.925 -470 100 Weight 80 kg Intake: IV 210 130 100 0.9 kvo 110 30 Magnesium Sulfate-D5w Pmx 100 100 100 1 gm In Dextrose/Water 1 100ml.bag @ 100 mls/hr IVPB Q1H TIERA Rx#: [id number] Intake, IV Titration 42.075 Amount Nitroglycerin-D5w Pmx 50 42.075 mg In Dextrose/Water 1 250ml.bag @ 5 MCG/MIN 1.5 mls/hr IV .Q24H TIERA Rx#: [id number] Oral 200 Output: Urine 800 800 0 Other: Voiding Method Bedside Commode Bedside Commode Bedside Commode # Voids 1 0 0 # Bowel Movements 1 ABP, PAP, CO, CI - Last Documented Arterial Blood Pressure 149/64 - Exam General: The patient is awake and alert, in no distress, and does not appear acutely ill. Skin: Skin is warm and dry and no rashes or lesions are noted. Eye: Pupils are equal, round and reactive to light, extra-ocular movements are intact; there is normal conjunctiva bilaterally. Ears, nose, mouth and throat: There are moist mucous membranes and no oral lesions. Neck: The neck is supple, there is no tenderness or JVD. Cardiovascular: There is a regular rate and rhythm. No murmur, rub or gallop is appreciated. Respiratory: Clear bilaterally no crackles rhonchi or wheezes Gastrointestinal: Soft, non-distended, non-tender abdomen without masses or organomegaly noted. There is no rebound or guarding present. Bowel sounds are unremarkable. Back: There is no tenderness to palpation in the midline. There is no obvious deformity. Musculoskeletal: Normal ROM, no tenderness, There is no pedal edema. There is no calf tenderness or swelling. No cords were appreciated. Neurological: CN II-XII intact, Cranial nerves III through XII are intact. There are no obvious motor or sensory deficits. Coordination appears grossly in tact. Speech is normal. Psychiatric: Cooperative, appropriate mood & affect, normal judgment. - Labs CBC & Chem 7: 12/06/23 04:08 12/06/23 04:08 Labs: Abnormal Lab Results - Last 24 Hours (Table) 12/05/23 12/05/23 12/05/23 Range/Units 12:30 13:59 13:59 Chloride (98-107) mmol/L Glucose (74-99) mg/dL POC Glucose (mg/dL) (70-110) mg/dL Hemoglobin A1c 7.8 H (<=6.0) % Magnesium 1.4 L (1.6-2.3) mg/dL AST (14-36) U/L ALT (4-34) U/L Total Protein (6.3-8.2) g/dL HDL Cholesterol 34.20 L (40.00-60.00) mg/dL TSH <0.015 L (0.465-4.680) mIU/L Free T4 3.19 H (0.78-2.19) ng/dL Ur Specific Mico 1.042 H (1.001-1.035) Urine Glucose (UA) 1+ H (Negative) 12/05/23 12/05/23 12/06/23 Range/Units 16:41 20:21 04:08 Chloride 108 H (98-107) mmol/L Glucose 147 H (74-99) mg/dL POC Glucose (mg/dL) 192 H 159 H (70-110) mg/dL Hemoglobin A1c (<=6.0) % Magnesium (1.6-2.3) mg/dL AST 42 H (14-36) U/L ALT 44 H (4-34) U/L Total Protein 6.1 L (6.3-8.2) g/dL HDL Cholesterol (40.00-60.00) mg/dL TSH (0.465-4.680) mIU/L Free T4 (0.78-2.19) ng/dL Ur Specific Mico (1.001-1.035) Urine Glucose (UA) (Negative) 12/06/23 Range/Units 07:02 Chloride (98-107) mmol/L Glucose (74-99) mg/dL POC Glucose (mg/dL) 248 H (70-110) mg/dL Hemoglobin A1c (<=6.0) % Magnesium (1.6-2.3) mg/dL AST (14-36) U/L ALT (4-34) U/L Total Protein (6.3-8.2) g/dL HDL Cholesterol (40.00-60.00) mg/dL TSH (0.465-4.680) mIU/L Free T4 (0.78-2.19) ng/dL Ur Specific Mico (1.001-1.035) Urine Glucose (UA) (Negative) Assessment and Plan Assessment: Impression: Triple-vessel coronary artery disease Dyslipidemia Type 2 diabetes with elevated hemoglobin A1c of 7.8% History of underlying asthma, presently inactive Possible restrictive lung disease or could be related to poor bedside spirometry done showing a possible restriction. Previous smoker/ex-smoker Family history of premature coronary artery disease. Recommendation: Continue maximal medical therapy including aspirin statin beta-xavi Continue albuterol as needed Incentive spirometry Patient was cleared by cardiothoracic surgery to be discharged home and follow- up on outpatient basis. I will recommend that she sees me in the office within the next week or so and have a full PFT in the office to determine how severe is her restriction. Will continue to follow while inpatient Time with Patient: Less than 30
--- NOTE | 2023-12-06 13:30 | P.DS ---
Providers Date of admission: 12/04/23 23:25 Expected date of discharge: 12/06/23 Attending physician: Juan Manuel Knox MD Consults: 12/05/23 00:43 Consult Physician Stat Consulting Provider: Walker Osborn Consult Reason/Comments: Acute coronary syndrome Do you want consulting provider notified?: Yes 12/05/23 01:07 Consult Physician Routine Consulting Provider: Luis Eduardo Coronado Consult Reason/Comments: Evaluation for CABG Do you want consulting provider notified?: Yes, Notify in am 12/05/23 13:28 Consult Physician Routine Consulting Provider: Mattie Dyson Consult Reason/Comments: preop cabg clearence Do you want consulting provider notified?: Already Contacted Primary care physician: [facility] Hospital Course: Patient is a 53-year-old female with a PMH of CAD status post multiple stents, COPD, type II DM, hypertension, hyperlipidemia, hypothyroidism who was recently admitted to the hospital for chest pain. She was discharged home on 12/03/2023 and returned to the emergency room on 12/04 evening with complaints of worsening epigastric pain. She reported that the pain was worse than the prior episode, now moderate to severe with paresthesias of her arms and some nausea. She also had reported shortness of breath. She attempted to take her nitroglycerin at home which improved her symptoms slightly. EKG in the emergency room revealed sinus rhythm at [address] segment elevation in leads V1 and V2. The case was discussed by the ED provider with the terra cotta roofer helper on-call who recommended emergent cardiac catheterization which revealed severe triple-vessel disease. No stenting was performed and the patient was admitted to the medical ICU where she was seen and evaluated. Patient reported resolution of her epigastric discomfort and shortness of breath but does report ongoing diffuse mild abdominal discomfort, which as per patient has been chronic for the past several weeks. She denied experiencing diarrhea, fever, or chills. Of note, CT abdomen and pelvis without contrast on 12/01 was unremarkable. Chest x-ray in the emergency room was unremarkable. Laboratory evaluation revealed a troponin less than 0.012 with glucose 188, lactic acid 1.1, hemoglobin 12.8. The patient's blood pressure in the emergency room upon arrival was 164/91 with pulse of 120, SpO2 100% on room air with temp 97.8 F. Echo showed EF 55-60% moderate TR. Cardiology recommended CT surgery evaluation. CT surgery recommended follow up in the outpatient setting for plans for elective CABG. 12/06 Patient was seen and examined. She reports no chest pain. She has appointments with CT surgery, Cardiology and Pulmonology. Cleared for discharge. Advised to come back to the ER for chest pain, SOB, lightheadedness and palpitations. Advised to not exert herself. Patient verbalized understanding. General: non toxic, moderate distress, appears at stated age Derm: warm, dry Head: atraumatic, normocephalic, symmetric Eyes: EOMI, no lid lag, anicteric sclera Mouth: no lip lesion, mucus membranes moist Cardiovascular: S1S2 reg, no murmur Lungs: Clear to auscultation bilateral, no rhonchi, no rales , no accessory muscle use Ext: no gross muscle atrophy, no edema, no contractures Neuro: no focal neuro deficits Psych: Alert, oriented, appropriate affect Discharge Diagnosis: Epigastric pain status post cardiac catheterization showing triple-vessel disease Diffuse mild abdominal pain with tenderness, unclear etiology Chronic conditions: COPD, type II DM, hypertension, hyperlipidemia This complex discharge took 35 minutes to complete. Patient Condition at Discharge: Stable Plan - Discharge Summary New Discharge Prescriptions: New Losartan [Cozaar] 100 mg PO DAILY #60 tab hydrALAZINE HCL [Apresoline] 50 mg PO TID #90 tab Continue Atorvastatin [Lipitor] 80 mg PO HS Aspirin EC [Ecotrin Low Dose] 81 mg PO DAILY Isosorbide Mononitrate ER [Imdur] 30 mg PO DAILY hydroCHLOROthiazide [Hydrodiuril] 25 mg PO DAILY #60 tab Albuterol Inhaler [Ventolin Hfa Inhaler] 2 puff INHALATION RT-QID PRN PRN Reason: Shortness Of Breath Docusate [Colace] 100 mg PO DAILY PRN PRN Reason: Constipation Cholecalciferol [Vitamin D3 (125 Mcg = 5000 Iu)] 125 mcg PO DAILY metFORMIN HCL [Glucophage] 1,000 mg PO DAILY Metoprolol Succinate [Toprol XL] 50 mg PO DAILY Ondansetron Odt [Zofran ODT] 4 mg PO Q12HR PRN PRN Reason: Nausea Cider Vinegar [Apple Cider Vinegar] 300 mg PO TID Nitroglycerin Sl Tabs [Nitrostat] 0.4 mg SL Q5M PRN #30 tab PRN Reason: Chest Pain Discontinued hydrALAZINE HCL [Apresoline] 100 mg PO DAILY Ibuprofen [Motrin] 800 mg PO DAILY PRN PRN Reason: Pain Losartan Potassium 50 mg PO DAILY Naproxen Sodium [Aleve] 220 mg PO BID PRN PRN Reason: Pain Discharge Medication List Aspirin EC [Ecotrin Low Dose] 81 mg PO DAILY 05/05/20 [History] Atorvastatin [Lipitor] 80 mg PO HS 05/05/20 [History] Cholecalciferol [Vitamin D3 (125 Mcg = 5000 Iu)] 125 mcg PO DAILY 01/17/22 [History] Isosorbide Mononitrate ER [Imdur] 30 mg PO DAILY 01/19/22 [History] metFORMIN HCL [Glucophage] 1,000 mg PO DAILY 01/19/22 [History] hydroCHLOROthiazide [Hydrodiuril] 25 mg PO DAILY #60 tab 04/19/23 [Rx] Albuterol Inhaler [Ventolin Hfa Inhaler] 2 puff INHALATION RT-QID PRN 12/02/23 [History] Cider Vinegar [Apple Cider Vinegar] 300 mg PO TID 12/02/23 [History] Metoprolol Succinate [Toprol XL] 50 mg PO DAILY 12/02/23 [History] Ondansetron Odt [Zofran ODT] 4 mg PO Q12HR PRN 12/02/23 [History] Docusate [Colace] 100 mg PO DAILY PRN 12/04/23 [History] Losartan [Cozaar] 100 mg PO DAILY #60 tab 12/06/23 [Rx] Nitroglycerin Sl Tabs [Nitrostat] 0.4 mg SL Q5M PRN #30 tab 12/06/23 [Rx] hydrALAZINE HCL [Apresoline] 50 mg PO TID #90 tab 12/06/23 [Rx] Follow up Appointment(s)/Referral(s): Mattie Dyson MD [STAFF PHYSICIAN] - 12/11/23 8:30 am [facility] [Primary Care Provider] - 1-2 days Bryson Bunn MD [STAFF PHYSICIAN] - 12/13/23 3:15 pm Patient Instructions/Handouts: *Surgery [facility] - After Heart Catheterization - [facility] Instructions, Heart Attack (DC), Coronary Artery Disease (DC) Activity/Diet/Wound Care/Special Instructions: Diet: Cardiac Follow up with Cardiothoracic surgery and Cardiology with the appointment given to you. Come back to the ED for chest pain, shortness of breath, lightheadedness. Discharge/Stand Alone Forms: Work/Release Restrictions Form Discharge Disposition: HOME SELF-CARE
== END 2023-12-06 12:39 | disposition home or self-care (01) | DRG 191 ==
LOC: EC 22:26 → 2SICU 23:25
PROVIDERS: ADMIT Internal Medicine; ATTEND Internal Medicine
PROC: B2111ZZ Fluoroscopy of Multiple Coronary Arteries using Low Osmolar Contrast (ICD-10-PCS; principal; 2023-12-05)
PROC: 4A023N7 Measurement of Cardiac Sampling and Pressure, Left Heart, Percutaneous Approach (ICD-10-PCS; principal; 2023-12-05)
PROC: B241ZZ3 Ultrasonography of Multiple Coronary Arteries, Intravascular (ICD-10-PCS; principal; 2023-12-05)
DX: I25.10 Atherosclerotic heart disease of native coronary artery without angina pectoris (principal); Z95.5 Presence of coronary angioplasty implant and graft; E03.9 Hypothyroidism, unspecified; E11.9 Type 2 diabetes mellitus without complications; E78.5 Hyperlipidemia, unspecified; F32.A Depression, unspecified; F41.9 Anxiety disorder, unspecified; G89.29 Other chronic pain; M54.2 Cervicalgia; I10 Essential (primary) hypertension; J44.9 Chronic obstructive pulmonary disease, unspecified; I24.9 Acute ischemic heart disease, unspecified; I25.2 Old myocardial infarction; I07.1 Rheumatic tricuspid insufficiency; J44.89 Other specified chronic obstructive pulmonary disease; J98.4 Other disorders of lung; K58.1 Irritable bowel syndrome with constipation; Z79.82 Long term (current) use of aspirin; Z79.84 Long term (current) use of oral hypoglycemic drugs; Z79.899 Other long term (current) drug therapy; Z82.49 Family history of ischemic heart disease and other diseases of the circulatory system; Z86.010 Personal history of colon polyps; Z87.891 Personal history of nicotine dependence; Z28.310 Unvaccinated for COVID-19; Z28.21 Immunization not carried out because of patient refusal; Z91.010 Allergy to peanuts
CPT/HCPCS: 36415; 71045; 76700; 80048; 80053; 80061; 80074; 81003; 82150; 83036; 83605; 83690; 83735; 84439; 84443; 84484; 85025; 85027; 85610; 85730; 87070; 92978; 93005; 93306; 93458; 93799; 93880; 93970; 94150; 96365; 96375; 99291

== ENCOUNTER → 2023-12-26 | Outpatient (CLI) | payer OTHER ==
[2023-12-26 10:23] LABS: Partial Thromboplastin Time 23.6 sec (22.0-30.0); Prothrombin Time 10.5 sec (10.0-12.5)
[2023-12-26 10:38] LABS: HCT 39.9 % (34.0-46.0); HGB 13.2 gm/dL (11.4-16.0); MCH 29.8 pg (25.0-35.0); MCHC 33.2 g/dL (31.0-37.0); MCV 89.8 fL (80.0-100.0); Mean Platelet Volume 7.9; Platelet Count 186 k/uL (150-450); RBC 4.44 m/uL (3.80-5.40); RDW 13.2 % (11.5-15.5); WBC 8.1 k/uL (3.8-10.6)
--- NOTE | 2023-12-26 11:15 | P.PN ---
Progress Note - Text Progress Note Date: 12/26/23 5 meter walk test completed without difficulty: #1 3.00 sec #2 3.07 sec #3 2.75 sec STS risk score calculated and discussed with patient.
[2023-12-26 18:06] LABS: ALT 26 U/L (8-44); AST 15 U/L (13-35); Albumin 4.3 g/dL (3.8-4.9); Albumin/Globulin Ratio 1.65 Ratio (1.60-3.17); Alkaline Phosphatase 144 U/L (41-126); BUN/Creat Ratio 26.17 Ratio (12.00-20.00); Blood Urea Nitrogen 15.7 mg/dL (9.0-27.0); Calcium 9.9 mg/dL (8.7-10.3); Carbon Dioxide 24.9 mmol/L (21.6-31.8); Chloride 104 mmol/L (96-109); Globulin 2.6 g/dL (1.6-3.3); Glucose 179 mg/dL (70-110); Potassium 3.8 mmol/L (3.5-5.5); Sodium 140 mmol/L (135-145); Total Bilirubin 0.3 mg/dL (0.3-1.2); Total Protein 6.9 g/dL (6.2-8.2)
== END | disposition home or self-care (01) ==
LOC: LABWHC1 09:34
PROVIDERS: ATTEND Thoracic Surgery (Cardiothoracic Vascular Surgery)
DX: I25.10 Atherosclerotic heart disease of native coronary artery without angina pectoris (principal)
CPT/HCPCS: 36415; 80053; 85027; 85610; 85730; 86850; 86900; 86901; 86920

== ENCOUNTER 2024-01-04 05:43 | Inpatient (IN) | payer OTHER ==
[~2024-01-04 05:43] MED LIST changes: +ALBUMIN HUMAN 25% 50 ML IV ONE; +ALBUMIN HUMAN 5% 500 ML IVPB ONE; +ASPIRIN 325 MG TAB PO ONE; +CALCIUM CHLORIDE 100 MG/ML 10 ML SYRINGE IV ONE; +CHLORHEXIDINE GLUCONATE 15 ML CUP MUCOUS MEM ONE; +CLEVIDIPINE BUTYRATE 25 MG in EMPTY BAG 1 BAG IV ONE; +ELECTROLYTE-A SOLUTION 1,000 ML with POTASSIUM CHLORIDE 100 MEQ, MAGNESIUM SULFATE 16 M... IV ONE; +ELECTROLYTE-A SOLUTION 1,000 ML with POTASSIUM CHLORIDE 40 MEQ, MAGNESIUM SULFATE 16 ME... IV ONE; +HEPARIN SODIUM 1,000 UN/ML (10ML VL) IV ONE; +HEPARIN SODIUM,PORCINE (1 ML) 5,000 UNIT in SODIUM CHLORIDE 0.9% 500 ML 500 ML IV ONE; +INSULIN REGULAR 100 UNIT in SODIUM CHLORIDE 0.9% 100 ML IV ONE; +LACTATED RINGERS 1,000 ML IV ONE; +MAGNESIUM SULFATE 16.24 MEQ in EMPTY SYRINGE 1 SYR IV ONE; +MANNITOL 25% 12.5 GM/50 ML VIAL IV ONE; +NITROGLYCERIN SL TABS 0.4 MG TAB SUBLINGUAL ONE; +NITROGLYCERIN-D5W PMX 25 MG/250 ML BTL IV ONE; +NITROGLYCERIN-D5W PMX 50 MG in DEXTROSE/WATER 1 250ML.BAG IV ONE; +NOREPINEPHRINE 4 MG in SODIUM CHLORIDE 0.9% 250 ML IV ONE; +PAPAVERINE 360 MG in SODIUM CHLORIDE 0.9% 90 ML IV ONE; +PHENYLEPHRINE 10 MG/ML VIAL IV ONE; +PHENYLEPHRINE 40 MG in SODIUM CHLORIDE 0.9% 250 ML IV ONE; +PROTAMINE SULFATE 10 MG/ML 25 ML VIAL IV ONE; +PROTAMINE SULFATE 250 MG in EMPTY BAG 1 BAG IV ONE; -REGADENOSON 0.4 MG/5 ML SYRINGE IV PRN; +SODIUM BICARB 8.4% 50 ML SYR (1 MEQ/ML) IV ONE; +SODIUM CHLORIDE 0.9% 1,000 ML IV ONE; +TRANEXAMIC ACID 2,000 MG in SODIUM CHLORIDE 0.9% 80 ML IV ONE; +ceFAZolin 1,000 MG in SODIUM CHLORIDE 0.9% IRRIGATIO 1,000 ML IRRIGATION ONE; +propofoL 1,000 MG/100 ML VIAL IV ONE
[2024-01-04] MEDS: LACTATED RINGERS 1,000 ML IV SCH ×2 (06:15→14:49)
[2024-01-04 06:47] LABS: Glucose,Whole Blood 153 mg/dL (70-110)
[2024-01-04] MEDS: ATORVASTATIN 10 MG TAB PO ONE (06:53)
[2024-01-04] MEDS: METOPROLOL TARTRATE 12.5 MG TAB PO ONE (06:53)
[2024-01-04] MEDS ORDERED: MIDAZOLAM 2 MG/2 ML VIAL IV PRN (07:00)
[2024-01-04] MEDS ORDERED: VECURONIUM 10 MG VIAL IV ONE (07:56)
[2024-01-04] MEDS ORDERED: INSULIN REGULAR 100 UNIT/ML VIAL (IV) ONE (07:56)
[2024-01-04] MEDS ORDERED: fentaNYL (PF) 50 MCG/ML 50 ML VIAL ONE (07:56)
[2024-01-04] MEDS ORDERED: METOPROLOL TARTRATE 5 MG/5 ML VIAL IVP ONE (07:56)
[2024-01-04] MEDS ORDERED: MIDAZOLAM HCL 10 MG/10 ML VIAL ONE (07:56)
[2024-01-04] MEDS ORDERED: HEPARIN SODIUM,PORCINE 10,000 UNIT/ML 1 ML VIAL ONE (07:56)
[2024-01-04] MEDS ORDERED: ALBUMIN HUMAN 5% (25gm) 500 ML VIAL IVPB ONE (07:56)
[2024-01-04] MEDS ORDERED: PHENYLEPHRINE-0.9% NACL SYG 1,000 MCG/10 ML SYRINGE ONE (07:56)
[2024-01-04] MEDS ORDERED: PROTAMINE SULFATE 10 MG/ML 25 ML VIAL IV ONE (07:56)
[2024-01-04] MEDS ORDERED: PROPOFOL 10 MG/ML 20 ML VIAL IV ONE (07:56)
[2024-01-04] MEDS ORDERED: ATROPINE SULFATE 0.1 MG/ML 10ML SYRINGE ONE (07:56)
[2024-01-04 08:33] LABS: ABG Base Excess -2.1 mmol/L; ABG Glucose Whole Blood 114 mg/dL (75-99); ABG HCO3 22 mmol/L (21-25); ABG Ionized Calcium 4.2 mg/dL (4.5-5.3); ABG Lactic Acid Whole Blood 0.6 mmol/L (0.5-1.6); ABG Oxygen Saturation >99.4 % (94-97); ABG PCO2 36 mmHg (35-45); ABG PH 7.41 (7.35-7.45); ABG PO2 308 mmHg (83-108); ABG Sodium Whole Blood 145 mmol/L (135-146); Allen Test Performed? Yes
[2024-01-04 08:36] LABS: ABG Base Excess 4.8 mmol/L; ABG Glucose Whole Blood 145 mg/dL (75-99); ABG HCO3 29 mmol/L (21-25); ABG Hematocrit 30 % (34.0-46.0); ABG Lactic Acid Whole Blood 0.7 mmol/L (0.5-1.6); ABG Oxygen Saturation 99.2 % (94-97); ABG PCO2 41 mmHg (35-45); ABG PH 7.46 (7.35-7.45); ABG PO2 202 mmHg (83-108); ABG Potassium Whole Blood 3.2 mmol/L (3.4-4.5); ABG Sodium Whole Blood 142 mmol/L (135-146); Allen Test Performed? Yes
[2024-01-04] MEDS: DILTIAZEM 125 MG in SODIUM CHLORIDE 0.9% 100 ML IV ONE (09:33)
[2024-01-04] MEDS: SODIUM CHLORIDE 0.9% 500 ML 500 ML with HEPARIN SODIUM,PORCINE (1 ML) 5,000 UNIT IV ONE (09:34)
[2024-01-04] MEDS: ceFAZolin 1,000 MG in SODIUM CHLORIDE 0.9% 1,000 ML IRRIGATION ONE (09:35)
[2024-01-04] MEDS: PAPAVERINE 360 MG in SODIUM CHLORIDE 0.9% 90 ML IV ONE (09:35)
[2024-01-04 09:53] LABS: ABG Base Excess 4.1 mmol/L; ABG Glucose Whole Blood 143 mg/dL (75-99); ABG HCO3 28 mmol/L (21-25); ABG Hematocrit 30 % (34.0-46.0); ABG Lactic Acid Whole Blood 1.4 mmol/L (0.5-1.6); ABG Oxygen Saturation 99.3 % (94-97); ABG PCO2 40 mmHg (35-45); ABG PH 7.46 (7.35-7.45); ABG PO2 231 mmHg (83-108); ABG Potassium Whole Blood 3.1 mmol/L (3.4-4.5); ABG Sodium Whole Blood 143 mmol/L (135-146); Allen Test Performed? Yes
[2024-01-04 10:50] LABS: ABG Base Excess 5.2 mmol/L; ABG Glucose Whole Blood 137 mg/dL (75-99); ABG HCO3 27 mmol/L (21-25); ABG Hematocrit 49 % (34.0-46.0); ABG Ionized Calcium 4.6 mg/dL (4.5-5.3); ABG Lactic Acid Whole Blood 1.3 mmol/L (0.5-1.6); ABG Oxygen Saturation 99.3 % (94-97); ABG PCO2 30 mmHg (35-45); ABG PO2 209 mmHg (83-108); ABG Potassium Whole Blood 3.5 mmol/L (3.4-4.5); ABG Sodium Whole Blood 142 mmol/L (135-146); Allen Test Performed? Yes
[2024-01-04 12:23] LABS: ABG Hematocrit 24 % (34.0-46.0); ABG Potassium Whole Blood 2.4 mmol/L (3.4-4.5)
[2024-01-04 12:25] LABS: ABG PH 7.56 (7.35-7.45)
[2024-01-04 12:44] LABS: ABG Base Excess 2.2 mmol/L; ABG Glucose Whole Blood 159 mg/dL (75-99); ABG HCO3 27 mmol/L (21-25); ABG Hematocrit 28 % (34.0-46.0); ABG Ionized Calcium 4.8 mg/dL (4.5-5.3); ABG Lactic Acid Whole Blood 1.6 mmol/L (0.5-1.6); ABG Oxygen Saturation 98.8 % (94-97); ABG PCO2 43 mmHg (35-45); ABG PH 7.41 (7.35-7.45); ABG PO2 139 mmHg (83-108); ABG Potassium Whole Blood 3.3 mmol/L (3.4-4.5); ABG Sodium Whole Blood 143 mmol/L (135-146); Allen Test Performed? Yes
[2024-01-04] MEDS ORDERED: BENZOCAINE/MENTHOL LOZENG 1 EACH LOZENGE MUCOUS MEM PRN (13:23)
[2024-01-04] MEDS ORDERED: Magnesium Replacement Protocol 1 EACH MISC MISCELLANE PRN (13:23)
[2024-01-04] MEDS ORDERED: hydrALAZINE HCL 20 MG/ML 1 ML VIAL IVP PRN (13:23)
[2024-01-04] MEDS ORDERED: Potassium Replacement Protocol 1 EACH MISC MISCELLANE PRN (13:23)
[2024-01-04] MEDS ORDERED: DEXTROSE 5% IN WATER 100 ML with AMIODARONE 150 MG IV PRN (13:23)
[2024-01-04] MEDS ORDERED: DEXTROSE 50% SYRINGE 50 ML IVP PRN ×2 (13:23)
--- NOTE | 2024-01-04 13:35 | P.OP ---
Date of Procedure: 01/04/24 Preoperative Diagnosis: 3v CAD s/p PCI with stable angina HTN HLD DM Hypothy Postoperative Diagnosis: Same Procedure(s) Performed: 1. Off pump coronary artery bypass grafting x 3. Left internal thoracic artery (in-situ) to left anterior descending coronary artery. Saphenous vein from aorta to right coronary artery. Radial artery from aorta to obtuse marginal artery. 2. Left atrial appendage ligation with 335mm AtriClip 3. Endoscopic left radial and left greater saphenous vein harvest 4. Graft flow measurements using the Medi-Stim flow meter system 5. Trans-esophageal echo Implants: #35 AtriClip Anesthesia: GETA Surgeon: Bryson Bunn Materials Development Engineer #1: Venkat Veloz Materials Development Engineer #2: Arnold Acosta Estimated Blood Loss (ml): 250 IV fluids (ml): 2,500 Urine output (ml): 250 Pathology: other (right thymic gland, suture pagan superior pole) Condition: critical Disposition: ICU Indications for Procedure: This is a 53 year-old F with a hx of CAD s/p PCI to the LAD, Cx/Om, HTN, HLD, DM, Hypothy who had a positive stress test. She underwent repeat coronary angiography which revealed significant left main coronary artery disease as well as RCA and LAD disease with progression. Her STS risk of morbidity and mortality was discussed with the patient and she was in agreement to proceed with surgery. Operative Findings: SANDERSON 1.6mm good conduit. LAD 1.5mm good target. SANDERSON-LAD Flow 25ml/min, P.I. 1.9 Radial artery 2.0 good conduit. OM prior to bifurcation good target. 1.7mm RA-OM Flow 26ml/min, P.I. 4.8 Saphenous vein 2.25mm good conduit. RCA 2.0mm good target. GSV-RCA Flow 88ml/min, P.I. 3.6 Description of Procedure: The patient underwent central line, right radial arterial line, and [place] Jose ca theter placement in the pre-operative suite by the anesthesia team. The patient was then brought to the operating room and placed in the supine position. General anesthesia was induced and the patient was prepped from the chin to the ankles in the usual sterile fashion. A time-out was performed and antibiotics were given. A midline incision was made on the chest and carried down to bone. A median sternotomy was performed. Hemostasis on the bone was achieved using electrocautery. The left pleura was entered and the left internal thoracic artery was harvested in a skeletonized fashion. Simultaneously a physician assistant program manager harvested the left greater saphenous vein and left radial artery in an endoscopic fashion. The patient was systemically heparinized and the FELICIANO was transected and placed in a papaverine jacuzzi. A left sided chest tube was placed. The pericardium was incised in a reverse T-fashion and a pericardial cradle was created. The right pleura was opened. Stay sutures were placed. #35mm AtriClip was placed on the left atrial appendage. With ACT > 250, the octopus stabilizer was placed on the mid LAD which was a good target. An ateriorotomy was made and 1.5mm shunt inserted. An end to side anastomosis between the FELICIANO and LAD was performed using a running 8-0 prolene. The shunt was removed prior to tieing down the suture. Next stay sutures were placed on the diaphragm near the IVC and oblique sinus. The RCA was exposed and a silastic was placed proximally. An arteriorotomy was made and it was a good target. 2.0mm shunt was insered and an end to side anastomosis between the saphenous vein and RCA was performed using a running 7-0 prolene again removing the shunt prior to tieing down the suture. Next, the heartstring device was used to create aortotomy. The saphenous vein was fastened to the ascending aorta using a running 5-0 prolene. The heartstring was removed in its entirety prior to tieing down the suture. The RCA territory was reperfused. Next, the lateral wall was exposed and the obtuse marginal artery was stabilized prior to its bifurcation. It was opened and 1.5mm shunt was inserted. An end to side anastomosis between the radial artery and OM was fashioned using a running 7-0 prolene. The shunt was removed prior to tieing down the suture. Lastly, the heartstring was used to fasten the radial artery to the ascening aorta using a running 6-0 prolene. Graft flows were measured and they were excellent. At this point, protamine was given and hemostasis was secured. A 32F chest tube and 19F fredi were placed in the mediastinum and right pleura respectively. The pericardium was reapproximated partially and the sternum was closed with pioneer cables and layers of suture. The leg was closed in layers as well. The patient tolerated the procedure without any significant hypotension and was transferred to CVICU in critical condition on only nitro gtt.
[2024-01-04 13:55] LABS: Glucose,Whole Blood 132 mg/dL (70-110)
--- NOTE | 2024-01-04 13:57 | P.CNPUL ---
History of Present Illness Consult date: 01/04/24 Requesting physician: Bryson Bunn Reason for consult: other Chief complaint: Ventilator management, ICU management. History of present illness: Pulmonary/critical care consult dated January 04, 2024. 53-year-old black female, who underwent a three-vessel bypass surgery today, off-pump, by Dr. Bunn. The patient also had a left atrial appendage ligation. The patient is being brought back to the intensive care unit, currently. The patient has a long history of medical problems including coronary disease, with previous stents in the LAD, and left circumflex coronary artery, essential hyper tension, hyperlipidemia, diabetes mellitus, hypothyroidism, asthma, chronic back and neck pain, use of marijuana, and a prior history of tobacco use. In addition, the patient has a very strong family history of premature coronary disease. 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 Current labs, include a blood gas showing a pO2 of 139, pCO2 of 43, and a pH of 7.41. The blood gas, in the intensive care unit, has not been done as yet. Sodium 143, potassium 3.3, ionized calcium 4.8, glucose 159, lactic acid 1.6, hemoglobin 9. Glucose is 159. Chest x-ray shows properly placed endotracheal tube, in the mid trachea. Tubes and lines otherwise look okay. There are some postsurgical changes, particular in the left lower lobe, with some atelectasis, and a small effusion. Blood gases have not yet been done. The patient's ventilator settings include volume assist-control, rate 12, tidal volume 375, 100%, and 10 of PEEP. Ac cording to the nurse, the patient will be coming back on nitroglycerin at 5 mcg/min, insulin at 1 unit an hour, propofol at 40 mcg/kg/min, and lactated Ringer's at 50 cc an hour. Review of Systems REVIEW OF SYSTEMS: Review of systems cannot be obtained as the patient is currently on the ventilator, and sedated. CONSTITUTIONAL: [Negative.] NEUROLOGIC: [ Negative.] HEENT: [ Negative.] CARDIAC: [Negative.] PULMONARY: [Negative.] GI: [Negative.] : [Negative.] RHEUMATOLOGIC: [ Negative.] IMMUNOLOGIC: [ Negative.] ENDOCRINE: [Negative. ] DERMATOLOGIC: [Negative.] Past Medical History Past Medical History: Asthma, COPD, Diabetes Mellitus, Hyperlipidemia, Hypertension, Myocardial Infarction ([place]), Musculoskeletal Disorder, Rheumatoid Arthritis ([place]), Thyroid Disorder Additional Past Medical History / Comment(s): Back Pain, right shoulder pain, Hx Pituitary Tumor, BENIGN. Thyroid disorder. 3 heart attacks-most recent March 2022, 3 stents total, neuropathy Last Myocardial Infarction Date:: 10/29/22 History of Any Multi-Drug Resistant Organisms: None Reported Past Surgical History: Section, Heart Catheterization With Stent, Tubal Ligation Additional Past Surgical History / Comment(s): Pituitary Tumor Removed. colonoscopy, PAIN CLINIC PROCEDURES stents x3 c section x4 Past Anesthesia/Blood Transfusion Reactions: No Reported Reaction Date of Last Stent Placement:: March 2022 Smoking Status: Never smoker - Past Family History Mother History Unknown: Yes Family Medical History: Deep Vein Thrombosis (DVT) Additional Family Medical History / Comment(s): Mother is alive at age 67 with history of coronary artery disease and three-vessel CABG. Daughter(s) History Unknown: Yes Family Medical History: Deep Vein Thrombosis (DVT) Additional Family Medical History / Comment(s): Patient has a total of 9 children with no major medical problems. Father History Unknown: Yes Family Medical History: Cancer Additional Family Medical History / Comment(s): Father is alive with no history of coronary artery disease. History of Prostate Cancer Sister(s) History Unknown: Yes Additional Family Medical History / Comment(s): The patient has 4 sisters and 1 brother. One sister had a myocardial infraction at age 40. Medications and Allergies Home Medications Medication Instructions Recorded Confirmed Type Aspirin EC [Ecotrin Low Dose] 81 mg PO DAILY 05/05/20 01/04/24 History Atorvastatin [Lipitor] 80 mg PO HS 05/05/20 01/04/24 History Isosorbide Mononitrate ER [Imdur] 30 mg PO DAILY 01/19/22 01/04/24 History metFORMIN HCL [Glucophage] 1,000 mg PO DAILY 01/19/22 01/04/24 History Albuterol Inhaler [Ventolin Hfa 2 puff INHALATION RT-QID PRN 12/02/23 01/04/24 History Inhaler] Metoprolol Succinate [Toprol XL] 50 mg PO DAILY 12/02/23 01/04/24 History Ondansetron Odt [Zofran ODT] 4 mg PO Q12HR PRN 12/02/23 01/04/24 History Docusate [Colace] 100 mg PO DAILY PRN 12/04/23 01/04/24 History Nitroglycerin Sl Tabs [Nitrostat] 0.4 mg SL Q5M PRN #30 tab 12/06/23 01/04/24 Rx hydroCHLOROthiazide [Hydrodiuril] 25 mg PO DAILY #60 tab 12/19/23 01/04/24 Rx Losartan Potassium 50 mg PO DAILY 12/26/23 01/04/24 History Mupirocin [Mupirocin 2%] 1 applic NASAL BID #1 tub 12/26/23 01/04/24 Rx hydrALAZINE HCL [Apresoline] 50 mg PO DAILY 12/26/23 01/04/24 History Prasugrel(Effient)Unknown Dose 1 tab PO DAILY 01/01/24 01/04/24 History Cbd Gummy PO HS 01/03/24 History Allergies Allergy/AdvReac Type Severity Reaction Status Date / Time Iodinated Contrast Media Allergy Rash/Hives Verified 01/04/24 06:29 peanut AdvReac HIVES Verified 01/04/24 06:29 rice AdvReac Rash/Hives Verified 01/04/24 06:29 seasonal Allergy Rash/Hives Uncoded 01/04/24 06:29 Physical Exam Osteopathic Statement: *. No significant issues noted on an osteopathic structural exam other than those noted in the History and Physical/Consult. Vitals: Vital Signs Temp Pulse Resp BP BP Pulse Ox FiO2 01/04/24 13:26 100 01/04/24 06:03 98 F 88 16 180/90 179/95 100 Intake and Output 01/03/24 01/04/24 01/04/24 22:59 06:59 14:59 Intake Total 100 4 Output Total 500 Balance 100 -496 Intake: IV 100 4 Output: Urine 250 Estimated Blood Loss 250 Other: Weight 68 kg No acute distress, sedated, with an orally placed endotracheal tube and NG tube. HEENT examination is grossly unremarkable. Neck supple. Full range of motion. No adenopathy thyromegaly or neck vein distention. Cardiovascular examination reveals regular rhythm rate. S1-S2 normal. No S3 or S4. No discernible murmur noted. Heart rate 88 bpm. Lungs reveal clear breath sounds. Breath sounds are equal bilaterally. No adventitious lung sounds including wheezes rhonchi or crackles. Abdomen soft without bowel sounds. No masses. Extremities are intact. No cyanosis clubbing or edema. Skin is without rash or lesion. Neurologic examination cannot be evaluated at this time. Results - Laboratory Findings ABG ABG pH 7.41 (7.35-7.45) 01/04/24 12:43 ABG pCO2 43 mmHg (35-45) 01/04/24 12:43 ABG pO2 139 mmHg (83-108) H 01/04/24 12:43 ABG O2 Saturation 98.8 % (94-97) H 01/04/24 12:43 Abnormal lab findings: Abnormal Labs 12/26/23 01/04/24 01/04/24 09:37 06:45 08:39 ABG pH ABG pCO2 ABG pO2 308 H ABG HCO3 ABG O2 Saturation >99.4 H ABG Hematocrit 24 L ABG Potassium 2.4 L* ABG Ionized Calcium 4.2 L ABG Glucose 114 H Hemoglobin 7.9 L POC Glucose (mg/dL) 153 H Arterial Blood Potassium 2.4 L* Arterial Blood Glucose 114 H Crossmatch See Detail 01/04/24 01/04/24 01/04/24 09:52 10:55 11:38 ABG pH 7.46 H 7.46 H 7.56 H* ABG pCO2 30 L ABG pO2 202 H 231 H 209 H ABG HCO3 29 H 28 H 27 H ABG O2 Saturation 99.2 H 99.3 H 99.3 H ABG Hematocrit 30 L 30 L 49 H ABG Potassium 3.2 L 3.1 L ABG Ionized Calcium ABG Glucose 145 H 143 H 137 H Hemoglobin 9.9 L 9.9 L 16.1 H POC Glucose (mg/dL) Arterial Blood Potassium 3.2 L 3.1 L Arterial Blood Glucose 145 H 143 H 137 H Crossmatch 01/04/24 12:43 ABG pH ABG pCO2 ABG pO2 139 H ABG HCO3 27 H ABG O2 Saturation 98.8 H ABG Hematocrit 28 L ABG Potassium 3.3 L ABG Ionized Calcium ABG Glucose 159 H Hemoglobin 9.0 L POC Glucose (mg/dL) Arterial Blood Potassium 3.3 L Arterial Blood Glucose 159 H Crossmatch - Diagnostic Findings Chest x-ray: image reviewed Assessment and Plan Assessment: Postop day #0, status post off-pump three-vessel bypass grafting, and ligation of left atrial appendage. Routine postoperative ventilator management. History of coronary disease, with previous stents, in the LAD, and circumflex coronary artery. Essential hypertension. Diabetes mellitus. Hyperlipidemia. Hypothyroidism. History of asthma. History of chronic back and neck pain. History of previous tobacco use. History of current marijuana use. Strong family history of premature cardiovascular disease. Plan: Plan dated January 04, 2024. The patient is just getting settled in. Eventually, I will be called with blood gases. Additional recommendations and suggestions are forthcoming. The patient according to the surgeon, tolerated the surgery just well. No blood transfusions were needed. The patient came back on nitroglycerin, insulin, and propofol. The patient is also receiving lactated Ringer's at 50 cc an hour. His chest x-ray has been evaluated. We will continue to follow the patient, make recommendations were appropriate. We will be hoping for quick extubation. Time with Patient: Greater than 30
[2024-01-04 14:10] LABS: Basophils % (A) 0 %; Eosinophils # (A) 0.1 k/uL (0-0.7); Eosinophils % (A) 1 %; HCT 26.8 % (34.0-46.0); Lymphocytes # (A) 2.1 k/uL (1.0-4.8); Lymphocytes % (A) 14 %; MCH 28.9 pg (25.0-35.0); MCHC 33.5 g/dL (31.0-37.0); MCV 86.3 fL (80.0-100.0); Mean Platelet Volume 7.6; Monocytes # (A) 0.3 k/uL (0-1.0); Monocytes % (A) 2 %; Neutrophils # (A) 12.3 k/uL (1.3-7.7); Neutrophils % (A) 82 %; Platelet Count 199 k/uL (150-450); RBC 3.11 m/uL (3.80-5.40); RDW 13.1 % (11.5-15.5)
[2024-01-04 14:23] LABS: ABG Base Excess 0.8 mmol/L; ABG HCO3 27 mmol/L (21-25); ABG PCO2 49 mmHg (35-45); ABG PH 7.34 (7.35-7.45); ABG PO2 362 mmHg (83-108); ABG TCO2 28 mmol/L (19-24); Allen Test Performed? Yes
[2024-01-04 14:23] LABS: INR 1.1 (<1.2); Partial Thromboplastin Time 24.9 sec (22.0-30.0); Prothrombin Time 12.2 sec (10.0-12.5)
--- NOTE | 2024-01-04 14:23 | XR ---
EXAMINATION TYPE: XR chest 1V portable DATE OF EXAM: 01/04/2024 1:56 PM CLINICAL INDICATION:Female, 53 years old with history of R/O foreign body, 4 needles; COMPARISON: Chest radiographs from 12/04/2023. TECHNIQUE: XR chest 1V portable Frontal view of the chest. FINDINGS: Lungs/Pleura: There is no evidence of pleural effusion, focal consolidation, or pneumothorax. Pulmonary vascularity: Unremarkable. Heart/mediastinum: Cardiomediastinal silhouette is unremarkable. Left atrial appendage occlusion low ce is present. Musculoskeletal: No acute osseous pathology. Midline sternotomy wires and surgical clips project over the mediastinum. Other findings: No radiopaque linear needles definitively visualized. Lines/Tubes: Endotracheal tube with distal tip 1.9 cm above the fox. Nasogastric tube with side-port projecting over the distal esophagus. Drainage tubes with tips projecting over the mediastinum. There is a Beaver-Jose catheter with tip projecting over the spine. IMPRESSION: 1. Surgical clips project over the mediastinum, no definitive metallic radiopaque needles/unexpected foreign bodies. If there remains concern consider CT imaging. 2. Postsurgical changes with Mild pulmonary vascular congestion. 3. Nasogastric tube in the distal esophagus and advancement of 9.0 cm) proximal placement.
[2024-01-04 14:30] LABS: Ionized Calcium 4.9 mg/dL (4.5-5.3)
[2024-01-04 14:33] LABS: ABG Oxygen Saturation 99.5 % (94-97)
--- NOTE | 2024-01-04 14:36 | P.ANPRN ---
Procedure Note - Anesthesia - Invasive Line Right Central Line Time Out Performed: Yes Date of Procedure: 01/04/24 Location of Patient: PreOp Preparation: Sterile Prep, Sterile Dressing Central Line Location: Internal Jugular Ultrasound Used: Yes Purpose - Visualization and Identification of Vasculature: Yes Image Stored and Saved: Yes Narrative: Invasive line placement per sterile protocol utilized. Informed consent obtained.Right Internal jugular vein cannulated under aseptic p recautions. 3cc 1% lidocaine infiltrated initially after cleaning with iodine based prep and draping. Ultrasound used to locate the vein and Seldinger technique used. 9Fr introduced sheath inserted and after the finding the needle with yard pilot needle/catheter. The introducer sheath was sutured in place. After the insertion of PA Catheter the insertion site was dressed with biopatch and tegaderm. Patient tolerated the procedure well. Right Smyer Jose Time Out Performed: Yes Date of Procedure: 01/04/24 Location of Patient: PreOp Preparation: Sterile Prep, Sterile Dressing Smyer Jose Line Location: Internal Jugular Narrative: Invasive line placement per sterile protocol utilized. 8Ff PA catheter threaded through the Right IJ introducer sheath under asepsis with continuous waveform monitoring. Catheter at 45 cms brunilda. - SALEEM Intraop Pre Bypass SALEEM Intraop - Anesthesia Indication: Coronary artery bypass graft Date of Procedure: 01/04/24 Pre-operative Diagnosis: Coronary artery disease Post-operative Diagnosis: Coronary artery disease status post coronary artery bypass graft Surgeon: Bryson Bunn Left Ventricle: Section fraction 55-60%. No regional wall motion abnormalities noted. Ejection Fraction: Normal Regional Wall Motion Abnormalities: None Left Ventricle Hypertrophy: Yes (Mild) R. Ventricle Function: Normal Aortic Valve: Peak gradient 12 mmHg mean gradient 5 mmHg Anatomy: Trileaflet Aortic Stenosis: Mild Aortic Regurgitation: None Mitral Stenosis: None Mitral Regurgitation: Trace Tricuspid Stenosis: None Tricuspid Regurgitation: Trace Pulmonic Stenosis: None Pulmonic Regurgitation: Trace R. Atrial Dilation: No R. Atrial PFO: No L. Atrial Dilation: No Aortic Dissection: No Aortic Calcification: None - SALEEM Intraop Post Bypass SALEEM Intraop Post Bypass Procedure Performed: Coronary artery bypass graft Ejection Fraction: Normal Regional Wall Motion Abnormalities: None R. Ventricle Function: Normal Aortic Valve: Unchanged Mitral Valve: Unchanged Tricuspid: Unchanged Pulmonic: Unchanged Aortic Dissection: No
[2024-01-04 14:38] LABS: ALT 22 U/L (4-34); AST 30 U/L (14-36); African American GFR (CKD) >90 (>60 ml/min/1.73 sqM); Albumin 3.3 g/dL (3.5-5.0); Alkaline Phosphatase 67 U/L (38-126); Anion Gap 9 mmol/L; Blood Urea Nitrogen 10 mg/dL (7-17); Calcium 8.4 mg/dL (8.4-10.2); Carbon Dioxide 22 mmol/L (22-30); Chloride 108 mmol/L (98-107); Glucose 163 mg/dL (74-99); Magnesium 1.8 mg/dL (1.6-2.3); Non-African American GFR(CKD) >90 (>60 ml/min/1.73 sqM); Potassium 4.2 mmol/L (3.5-5.1); Sodium 139 mmol/L (137-145); Total Bilirubin 0.6 mg/dL (0.2-1.3); Total Protein 5.2 g/dL (6.3-8.2)
[2024-01-04] MEDS: INSULIN REGULAR 100 UNIT in SODIUM CHLORIDE 0.9% 100 ML IV SCH (14:45)
[2024-01-04] MEDS: AMIODARONE 360 MG in DEXTROSE 5% IN WATER 200 ML IV ONE (14:48)
[2024-01-04] MEDS: NITROGLYCERIN-D5W PMX 50 MG in DEXTROSE/WATER 1 250ML.BAG IV SCH (14:49)
[2024-01-04 15:06] LABS: Glucose,Whole Blood 194 mg/dL (70-110)
[2024-01-04] MEDS ORDERED: MUPIROCIN 2% OINT 22 GM TUBE NASAL ONE (15:15)
[2024-01-04] MEDS: IPRATROPIUM-ALBUTEROL 3 ML NEB INHALATION SCH ×2 (15:19→19:25)
[2024-01-04 16:06] LABS: Glucose,Whole Blood 190 mg/dL (70-110)
[2024-01-04 16:53] LABS: Glucose,Whole Blood 177 mg/dL (70-110)
[2024-01-04] MEDS: HEPARIN SODIUM,PORCINE 5,000 UNIT/ML 1 ML VIAL SQ SCH (17:10)
[2024-01-04] MEDS: DEXMEDETOMIDINE/0.9% NACL(PMX) 400 MCG in EMPTY BAG 1 BAG IV SCH (17:11)
[2024-01-04] MEDS: CLEVIDIPINE BUTYRATE 25 MG in EMPTY BAG 1 BAG IV SCH (17:13)
[2024-01-04 18:16] LABS: Glucose,Whole Blood 139 mg/dL (70-110)
[2024-01-04 18:26] LABS: Basophils % (A) 0 %; Eosinophils % (A) 0 %; HCT 25.1 % (34.0-46.0); HGB 8.9 gm/dL (11.4-16.0); Lymphocytes % (A) 9 %; MCH 29.8 pg (25.0-35.0); MCHC 35.4 g/dL (31.0-37.0); MCV 84.3 fL (80.0-100.0); Mean Platelet Volume 8.5; Monocytes # (A) 0.4 k/uL (0-1.0); Monocytes % (A) 3 %; Neutrophils # (A) 9.4 k/uL (1.3-7.7); Neutrophils % (A) 87 %; Platelet Count 186 k/uL (150-450); RBC 2.98 m/uL (3.80-5.40); RDW 13.3 % (11.5-15.5); WBC 10.8 k/uL (3.8-10.6)
[2024-01-04] MEDS: ACETAMINOPHEN IV (For NPO) 1,000 MG in EMPTY BAG 1 BAG IVPB SCH (18:47)
[2024-01-04 19:05] LABS: Glucose,Whole Blood 142 mg/dL (70-110)
[2024-01-04 19:55] LABS: Glucose,Whole Blood 156 mg/dL (70-110)
[2024-01-04] MEDS: SENNOSIDES-DOCUSATE SODIUM 1 EACH TAB PO SCH (20:15)
[2024-01-04 20:16] LABS: ABG Base Excess 5.2 mmol/L; ABG HCO3 29 mmol/L (21-25); ABG PCO2 43 mmHg (35-45); ABG PH 7.44 (7.35-7.45); ABG PO2 149 mmHg (83-108); ABG TCO2 31 mmol/L (19-24); Allen Test Performed? Yes
[2024-01-04 20:17] LABS: ABG Oxygen Saturation 98.5 % (94-97)
[2024-01-04 20:24] LABS: Basophils % (A) 0 %; Eosinophils % (A) 0 %; HCT 23.7 % (34.0-46.0); HGB 8.6 gm/dL (11.4-16.0); Lymphocytes # (A) 0.8 k/uL (1.0-4.8); Lymphocytes % (A) 8 %; MCH 30.7 pg (25.0-35.0); MCHC 36.3 g/dL (31.0-37.0); MCV 84.6 fL (80.0-100.0); Mean Platelet Volume 8.2; Monocytes # (A) 0.3 k/uL (0-1.0); Monocytes % (A) 4 %; Neutrophils # (A) 8.2 k/uL (1.3-7.7); Neutrophils % (A) 88 %; Platelet Count 168 k/uL (150-450); RDW 13.5 % (11.5-15.5); WBC 9.4 k/uL (3.8-10.6)
[2024-01-04 20:58] LABS: Glucose,Whole Blood 130 mg/dL (70-110)
[2024-01-04] MEDS: AMIODARONE 450 MG in DEXTROSE 5% IN WATER 250 ML IV SCH (21:30)
[2024-01-04 22:02] LABS: Glucose,Whole Blood 109 mg/dL (70-110)
[2024-01-04] MEDS: MAGNESIUM SULFATE-D5W PMX 1 GM in DEXTROSE/WATER 1 100ML.BAG IVPB ONE (22:12)
[2024-01-04 23:16] LABS: Glucose,Whole Blood 144 mg/dL (70-110)
[2024-01-04] MEDS: ONDANSETRON 4 MG/2 ML VIAL IVP PRN (23:24)
[2024-01-05] MEDS: MUPIROCIN 2% OINT 22 GM TUBE NASAL SCH (00:11)
[2024-01-05 00:33] LABS: Glucose,Whole Blood 141 mg/dL (70-110)
[2024-01-05] MEDS: ALBUMIN HUMAN 5% 250 ML in EMPTY BAG 1 BAG IVPB PRN (00:59)
[2024-01-05 01:17] LABS: Glucose,Whole Blood 135 mg/dL (70-110)
[2024-01-05 02:45] LABS: Glucose,Whole Blood 104 mg/dL (70-110)
[2024-01-05 03:53] LABS: Glucose,Whole Blood 111 mg/dL (70-110)
[2024-01-05 05:02] LABS: Glucose,Whole Blood 119 mg/dL (70-110)
[2024-01-05 05:12] LABS: Basophils % (A) 0 %; Eosinophils % (A) 0 %; HCT 24.9 % (34.0-46.0); HGB 8.5 gm/dL (11.4-16.0); Lymphocytes # (A) 1.5 k/uL (1.0-4.8); Lymphocytes % (A) 16 %; MCH 29.3 pg (25.0-35.0); MCHC 34.1 g/dL (31.0-37.0); MCV 85.7 fL (80.0-100.0); Mean Platelet Volume 10.3; Monocytes # (A) 0.4 k/uL (0-1.0); Monocytes % (A) 4 %; Neutrophils # (A) 7.4 k/uL (1.3-7.7); Neutrophils % (A) 78 %; Platelet Count 137 k/uL (150-450); RDW 13.6 % (11.5-15.5); WBC 9.5 k/uL (3.8-10.6)
[2024-01-05 05:27] LABS: ALT 18 U/L (4-34); AST 39 U/L (14-36); African American GFR (CKD) >90 (>60 ml/min/1.73 sqM); Alkaline Phosphatase 78 U/L (38-126); Anion Gap 6 mmol/L; Blood Urea Nitrogen 10 mg/dL (7-17); Calcium 8.6 mg/dL (8.4-10.2); Carbon Dioxide 23 mmol/L (22-30); Chloride 107 mmol/L (98-107); Glucose 109 mg/dL (74-99); Magnesium 1.9 mg/dL (1.6-2.3); Non-African American GFR(CKD) >90 (>60 ml/min/1.73 sqM); Potassium 4.2 mmol/L (3.5-5.1); Sodium 136 mmol/L (137-145)
[2024-01-05 06:33] LABS: Glucose,Whole Blood 127 mg/dL (70-110)
[2024-01-05] MEDS: METOCLOPRAMIDE 5 MG/ML 2 ML VIAL IVP PRN (06:55)
[2024-01-05] MEDS: KETOROLAC 15 MG/ML 1 ML VIAL IVP SCH (07:01)
--- NOTE | 2024-01-05 08:11 | P.PN ---
Subjective Progress Note Date: 01/05/24 Principal diagnosis: Coronary artery disease with previous myocardial infarction and prior stenting of the left anterior descending artery as well as left circumflex/OM, stable ang matt. History of hypertension, hyperlipidemia, diabetes, hypothyroid, bilateral internal carotid artery stenosis, asthma, chronic back and neck pain, remote history of pneumonia, daily marijuana use with recent cessation, previous tobacco dependence, remote history of syncope, and family history of premature coronary artery disease. Preoperative nasal swab positive for MSSA, treated POD #1 off pump coronary artery bypass grafting x 3. Left internal thoracic artery (in-situ) to left anterior descending coronary artery, saphenous vein from aorta to right coronary artery, radial artery from aorta to obtuse marginal artery, left atrial appendage ligation with 35mm AtriClip, endoscopic left radia l and left greater saphenous vein harvest, graft flow measurements using the Medi-Stim flow meter system, trans-esophageal echo Postoperative acute blood loss anemia and thrombocytopenia, expected given hemodilution The patient was seen and examined sitting up in recliner in the intensive care unit constantly moaning. She was successfully extubated last night at 20:24. Remains in sinus rhythm and hemodynamically stable on no inotropes or pressors. Currently on IV amiodarone for A-fib prophylaxis. States pain is not completely controlled with current medication regimen, not taking deep breaths, weak cough. Only able to pull 500 mL on her incentive spirometry. She did have some nausea with emesis this morning, although currently denies nausea after being given Zofran. Chest x-ray, labs reviewed. Right internal jugular [place]/Cordis, right radial arterial line, mediastinal/right/left pleural chest tubes all present. No other new concerns. Objective - Vital Signs Vital signs: Vital Signs Temp 99.3 F 01/05/24 04:00 Pulse 95 01/05/24 07:00 Resp 26 H 01/05/24 07:00 BP 180/90 01/04/24 06:03 Pulse Ox 99 01/05/24 07:00 FiO2 40 01/04/24 20:00 Intake & Output 01/04/24 01/05/24 01/05/24 18:59 06:59 18:59 Intake Total 333.679 985.126 79 Output Total 955 1185 45 Balance -621.321 -199.874 34 Weight 68.9 kg Intake: IV 260 969 79 .9NS Pressure Bag 36 99 9 CO/CI 20 220 20 Lactated Ringers 1,000 ml 200 550 50 @ 20 mls/hr IV .Q24H [facility] Rx#:[id number] Magnesium Sulfate-D5w Pmx 100 1 gm In Dextrose/Water 1 100ml.bag @ 100 mls/hr IVPB ONCE ONE Rx#: [id number] Intake, IV Titration 73.679 16.126 Amount Clevidipine Butyrate 25 6.867 mg In Empty Bag 1 bag @ 1 MG/HR 2 mls/hr IV .Q24H [facility] Rx#:[id number] Dexmedetomidine/0.9% NaCl 8.188 (Pmx) 400 mcg In Empty Bag 1 bag @ Titrate IV . Q0M [facility] Rx#:[id number] Insulin Regular 100 unit 11.160 16.126 In Sodium Chloride 0.9% 100 ml @ Per Protocol IV .Q0M [facility] Rx#:[id number] propofoL 1,000 mg In 47.464 Empty Bag 1 bag @ Titrate IV .Q0M [facility] Rx#: [id number] Output: Chest Tube Drainage 210 750 20 Chest Tube Bilateral 100 220 10 Chest Tube Mediastinal 110 530 10 Urine 495 435 25 Estimated Blood Loss 250 Other: Voiding Method Indwelling Catheter Indwelling Catheter ABP, PAP, CO, CI - Last Documented Arterial Blood Pressure 131/56 Pulmonary Artery Pressure 24/14 Cardiac Output 5.4 Cardiac Index 3.4 - Exam CONSTITUTIONAL: Appears somewhat comfortable although constantly moaning, cooperative, no acute distress RESPIRATORY: Lungs sounds diminished bilaterally. Respirations even, nonlabored. Currently on 2 L nasal cannula with oxygen saturation 100%. Able to achieve 500 mL on incentive spirometry. Weak cough. CARDIOVASCULAR: S1, S2 present. Regular rate and rhythm, sinus rhythm on telemetry. Sternum stable. Palpable peripheral pulses bilaterally. No edema present. No calf pain or tenderness noted. Heart hugger in place with patient demonstrating appropriate use. Antiembolism stockings, SCDs present. GASTROINTESTINAL: Abdomen soft, nontender, nondistended. Hypoactive bowel sounds present 4 quadrants. Tolerating minimal clear liquid. Denies flatus GENITOURINARY: Galdamez present draining clear, yellow urine. Output overnight 15-70 mL per hour INTEGUMENTARY: Skin is warm and dry with evidence of good perfusion. Anterior chest incision well approximated and covered with dry intact dressing. Left radial artery as well as left lower extremity EVH site well approximated without redness or drainage. NEUROLOGIC: Cranial nerves II through XII intact MUSKULOSKELETAL: Able to move all extremities, strength equal bilaterally PSYCHIATRIC: Alert and oriented to person place and time, appropriate affect, intact judgment and insight INVASIVE LINES AND TUBES: Mediastinal/left/right pleural chest tubes present and connected to wall suction, no air leaks present. Mediastinal tube with 210 mL serosanguineous drainage overnight, 650 mL since surgery. Left/right pleural chest tubes with 100 mL serosanguineous drainage overnight, 500 mL since surgery. Ventricular epicardial pacemaker wires present, grounded. Right internal jugular [place]/Cordis, right radial arterial line present. Last CO/CI 5.4/3.4, PA , CVP 8. - Allied health notes Allied health notes reviewed: nursing - Labs CBC & Chem 7: 01/05/24 05:00 01/05/24 05:00 Labs: Abnormal Lab Results - Last 24 Hours (Table) 12/26/23 01/04/24 01/04/24 Range/Units 09:37 08:39 09:52 WBC (3.8-10.6) k/uL RBC (3.80-5.40) m/uL Hgb (11.4-16.0) gm/dL Hct (34.0-46.0) % Plt Count (150-450) k/uL Neutrophils # (1.3-7.7) k/uL Lymphocytes # (1.0-4.8) k/uL ABG pH 7.46 H (7.35-7.45) ABG pCO2 (35-45) mmHg ABG pO2 308 H 202 H (83-108) mmHg ABG HCO3 29 H (21-25) mmol/L ABG Total CO2 (19-24) mmol/L ABG O2 Saturation >99.4 H 99.2 H (94-97) % ABG Hematocrit 24 L 30 L (34.0-46.0) % ABG Potassium 2.4 L* 3.2 L (3.4-4.5) mmol/L ABG Ionized Calcium 4.2 L (4.5-5.3) mg/dL ABG Glucose 114 H 145 H (75-99) mg/dL Hemoglobin 7.9 L 9.9 L (11.4-16.0) gm/dL Sodium (137-145) mmol/L Chloride (98-107) mmol/L Creatinine (0.52-1.04) mg/dL Glucose (74-99) mg/dL POC Glucose (mg/dL) (70-110) mg/dL AST (14-36) U/L Total Protein (6.3-8.2) g/dL Albumin (3.5-5.0) g/dL Arterial Blood Potassium 2.4 L* 3.2 L (3.4-4.5) mmol/L Arterial Blood Glucose 114 H 145 H (75-99) mg/dL Crossmatch See Detail 01/04/24 01/04/24 01/04/24 Range/Units 10:55 11:38 12:43 WBC (3.8-10.6) k/uL RBC (3.80-5.40) m/uL Hgb (11.4-16.0) gm/dL Hct (34.0-46.0) % Plt Count (150-450) k/uL Neutrophils # (1.3-7.7) k/uL Lymphocytes # (1.0-4.8) k/uL ABG pH 7.46 H 7.56 H* (7.35-7.45) ABG pCO2 30 L (35-45) mmHg ABG pO2 231 H 209 H 139 H (83-108) mmHg ABG HCO3 28 H 27 H 27 H (21-25) mmol/L ABG Total CO2 (19-24) mmol/L ABG O2 Saturation 99.3 H 99.3 H 98.8 H (94-97) % ABG Hematocrit 30 L 49 H 28 L (34.0-46.0) % ABG Potassium 3.1 L 3.3 L (3.4-4.5) mmol/L ABG Ionized Calcium (4.5-5.3) mg/dL ABG Glucose 143 H 137 H 159 H (75-99) mg/dL Hemoglobin 9.9 L 16.1 H 9.0 L (11.4-16.0) gm/dL Sodium (137-145) mmol/L Chloride (98-107) mmol/L Creatinine (0.52-1.04) mg/dL Glucose (74-99) mg/dL POC Glucose (mg/dL) (70-110) mg/dL AST (14-36) U/L Total Protein (6.3-8.2) g/dL Albumin (3.5-5.0) g/dL Arterial Blood Potassium 3.1 L 3.3 L (3.4-4.5) mmol/L Arterial Blood Glucose 143 H 137 H 159 H (75-99) mg/dL Crossmatch 01/04/24 01/04/24 01/04/24 Range/Units 13:54 13:58 13:58 WBC 15.0 H (3.8-10.6) k/uL RBC 3.11 L (3.80-5.40) m/uL Hgb 9.0 L D (11.4-16.0) gm/dL Hct 26.8 L (34.0-46.0) % Plt Count (150-450) k/uL Neutrophils # 12.3 H (1.3-7.7) k/uL Lymphocytes # (1.0-4.8) k/uL ABG pH (7.35-7.45) ABG pCO2 (35-45) mmHg ABG pO2 (83-108) mmHg ABG HCO3 (21-25) mmol/L ABG Total CO2 (19-24) mmol/L ABG O2 Saturation (94-97) % ABG Hematocrit (34.0-46.0) % ABG Potassium (3.4-4.5) mmol/L ABG Ionized Calcium (4.5-5.3) mg/dL ABG Glucose (75-99) mg/dL Hemoglobin (11.4-16.0) gm/dL Sodium (137-145) mmol/L Chloride 108 H (98-107) mmol/L Creatinine 0.36 L (0.52-1.04) mg/dL Glucose 163 H (74-99) mg/dL POC Glucose (mg/dL) 132 H (70-110) mg/dL AST (14-36) U/L Total Protein 5.2 L (6.3-8.2) g/dL Albumin 3.3 L (3.5-5.0) g/dL Arterial Blood Potassium (3.4-4.5) mmol/L Arterial Blood Glucose (75-99) mg/dL Crossmatch 01/04/24 01/04/24 01/04/24 Range/Units 14:19 15:05 16:05 WBC (3.8-10.6) k/uL RBC (3.80-5.40) m/uL Hgb (11.4-16.0) gm/dL Hct (34.0-46.0) % Plt Count (150-450) k/uL Neutrophils # (1.3-7.7) k/uL Lymphocytes # (1.0-4.8) k/uL ABG pH 7.34 L (7.35-7.45) ABG pCO2 49 H (35-45) mmHg ABG pO2 362 H (83-108) mmHg ABG HCO3 27 H (21-25) mmol/L ABG Total CO2 28 H (19-24) mmol/L ABG O2 Saturation 99.5 H (94-97) % ABG Hematocrit (34.0-46.0) % ABG Potassium (3.4-4.5) mmol/L ABG Ionized Calcium (4.5-5.3) mg/dL ABG Glucose (75-99) mg/dL Hemoglobin (11.4-16.0) gm/dL Sodium (137-145) mmol/L Chloride (98-107) mmol/L Creatinine (0.52-1.04) mg/dL Glucose (74-99) mg/dL POC Glucose (mg/dL) 194 H 190 H (70-110) mg/dL AST (14-36) U/L Total Protein (6.3-8.2) g/dL Albumin (3.5-5.0) g/dL Arterial Blood Potassium (3.4-4.5) mmol/L Arterial Blood Glucose (75-99) mg/dL Crossmatch 01/04/24 01/04/24 01/04/24 Range/Units 16:40 16:50 18:13 WBC 10.8 H (3.8-10.6) k/uL RBC 2.98 L (3.80-5.40) m/uL Hgb 8.9 L (11.4-16.0) gm/dL Hct 25.1 L (34.0-46.0) % Plt Count (150-450) k/uL Neutrophils # 9.4 H (1.3-7.7) k/uL Lymphocytes # (1.0-4.8) k/uL ABG pH (7.35-7.45) ABG pCO2 (35-45) mmHg ABG pO2 (83-108) mmHg ABG HCO3 (21-25) mmol/L ABG Total CO2 (19-24) mmol/L ABG O2 Saturation (94-97) % ABG Hematocrit (34.0-46.0) % ABG Potassium (3.4-4.5) mmol/L ABG Ionized Calcium (4.5-5.3) mg/dL ABG Glucose (75-99) mg/dL Hemoglobin (11.4-16.0) gm/dL Sodium (137-145) mmol/L Chloride (98-107) mmol/L Creatinine (0.52-1.04) mg/dL Glucose (74-99) mg/dL POC Glucose (mg/dL) 177 H 139 H (70-110) mg/dL AST (14-36) U/L Total Protein (6.3-8.2) g/dL Albumin (3.5-5.0) g/dL Arterial Blood Potassium (3.4-4.5) mmol/L Arterial Blood Glucose (75-99) mg/dL Crossmatch 01/04/24 01/04/24 01/04/24 Range/Units 19:03 19:48 19:55 WBC (3.8-10.6) k/uL RBC 2.80 L (3.80-5.40) m/uL Hgb 8.6 L (11.4-16.0) gm/dL Hct 23.7 L (34.0-46.0) % Plt Count (150-450) k/uL Neutrophils # 8.2 H (1.3-7.7) k/uL Lymphocytes # 0.8 L (1.0-4.8) k/uL ABG pH (7.35-7.45) ABG pCO2 (35-45) mmHg ABG pO2 (83-108) mmHg ABG HCO3 (21-25) mmol/L ABG Total CO2 (19-24) mmol/L ABG O2 Saturation (94-97) % ABG Hematocrit (34.0-46.0) % ABG Potassium (3.4-4.5) mmol/L ABG Ionized Calcium (4.5-5.3) mg/dL ABG Glucose (75-99) mg/dL Hemoglobin (11.4-16.0) gm/dL Sodium (137-145) mmol/L Chloride (98-107) mmol/L Creatinine (0.52-1.04) mg/dL Glucose (74-99) mg/dL POC Glucose (mg/dL) 142 H 156 H (70-110) mg/dL AST (14-36) U/L Total Protein (6.3-8.2) g/dL Albumin (3.5-5.0) g/dL Arterial Blood Potassium (3.4-4.5) mmol/L Arterial Blood Glucose (75-99) mg/dL Crossmatch 01/04/24 01/04/24 01/04/24 Range/Units 20:13 20:57 23:16 WBC (3.8-10.6) k/uL RBC (3.80-5.40) m/uL Hgb (11.4-16.0) gm/dL Hct (34.0-46.0) % Plt Count (150-450) k/uL Neutrophils # (1.3-7.7) k/uL Lymphocytes # (1.0-4.8) k/uL ABG pH (7.35-7.45) ABG pCO2 (35-45) mmHg ABG pO2 149 H (83-108) mmHg ABG HCO3 29 H (21-25) mmol/L ABG Total CO2 31 H (19-24) mmol/L ABG O2 Saturation 98.5 H (94-97) % ABG Hematocrit (34.0-46.0) % ABG Potassium (3.4-4.5) mmol/L ABG Ionized Calcium (4.5-5.3) mg/dL ABG Glucose (75-99) mg/dL Hemoglobin (11.4-16.0) gm/dL Sodium (137-145) mmol/L Chloride (98-107) mmol/L Creatinine (0.52-1.04) mg/dL Glucose (74-99) mg/dL POC Glucose (mg/dL) 130 H 144 H (70-110) mg/dL AST (14-36) U/L Total Protein (6.3-8.2) g/dL Albumin (3.5-5.0) g/dL Arterial Blood Potassium (3.4-4.5) mmol/L Arterial Blood Glucose (75-99) mg/dL Crossmatch 01/05/24 01/05/24 01/05/24 Range/Units 00:31 01:15 03:50 WBC (3.8-10.6) k/uL RBC (3.80-5.40) m/uL Hgb (11.4-16.0) gm/dL Hct (34.0-46.0) % Plt Count (150-450) k/uL Neutrophils # (1.3-7.7) k/uL Lymphocytes # (1.0-4.8) k/uL ABG pH (7.35-7.45) ABG pCO2 (35-45) mmHg ABG pO2 (83-108) mmHg ABG HCO3 (21-25) mmol/L ABG Total CO2 (19-24) mmol/L ABG O2 Saturation (94-97) % ABG Hematocrit (34.0-46.0) % ABG Potassium (3.4-4.5) mmol/L ABG Ionized Calcium (4.5-5.3) mg/dL ABG Glucose (75-99) mg/dL Hemoglobin (11.4-16.0) gm/dL Sodium (137-145) mmol/L Chloride (98-107) mmol/L Creatinine (0.52-1.04) mg/dL Glucose (74-99) mg/dL POC Glucose (mg/dL) 141 H 135 H 111 H (70-110) mg/dL AST (14-36) U/L Total Protein (6.3-8.2) g/dL Albumin (3.5-5.0) g/dL Arterial Blood Potassium (3.4-4.5) mmol/L Arterial Blood Glucose (75-99) mg/dL Crossmatch 01/05/24 01/05/24 01/05/24 Range/Units 05:00 05:00 05:01 WBC (3.8-10.6) k/uL RBC 2.90 L (3.80-5.40) m/uL Hgb 8.5 L (11.4-16.0) gm/dL Hct 24.9 L (34.0-46.0) % Plt Count 137 L (150-450) k/uL Neutrophils # (1.3-7.7) k/uL Lymphocytes # (1.0-4.8) k/uL ABG pH (7.35-7.45) ABG pCO2 (35-45) mmHg ABG pO2 (83-108) mmHg ABG HCO3 (21-25) mmol/L ABG Total CO2 (19-24) mmol/L ABG O2 Saturation (94-97) % ABG Hematocrit (34.0-46.0) % ABG Potassium (3.4-4.5) mmol/L ABG Ionized Calcium (4.5-5.3) mg/dL ABG Glucose (75-99) mg/dL Hemoglobin (11.4-16.0) gm/dL Sodium 136 L (137-145) mmol/L Chloride (98-107) mmol/L Creatinine 0.48 L (0.52-1.04) mg/dL Glucose 109 H (74-99) mg/dL POC Glucose (mg/dL) 119 H (70-110) mg/dL AST 39 H (14-36) U/L Total Protein 5.0 L (6.3-8.2) g/dL Albumin 3.0 L (3.5-5.0) g/dL Arterial Blood Potassium (3.4-4.5) mmol/L Arterial Blood Glucose (75-99) mg/dL Crossmatch 01/05/24 Range/Units 06:32 WBC (3.8-10.6) k/uL RBC (3.80-5.40) m/uL Hgb (11.4-16.0) gm/dL Hct (34.0-46.0) % Plt Count (150-450) k/uL Neutrophils # (1.3-7.7) k/uL Lymphocytes # (1.0-4.8) k/uL ABG pH (7.35-7.45) ABG pCO2 (35-45) mmHg ABG pO2 (83-108) mmHg ABG HCO3 (21-25) mmol/L ABG Total CO2 (19-24) mmol/L ABG O2 Saturation (94-97) % ABG Hematocrit (34.0-46.0) % ABG Potassium (3.4-4.5) mmol/L ABG Ionized Calcium (4.5-5.3) mg/dL ABG Glucose (75-99) mg/dL Hemoglobin (11.4-16.0) gm/dL Sodium (137-145) mmol/L Chloride (98-107) mmol/L Creatinine (0.52-1.04) mg/dL Glucose (74-99) mg/dL POC Glucose (mg/dL) 127 H (70-110) mg/dL AST (14-36) U/L Total Protein (6.3-8.2) g/dL Albumin (3.5-5.0) g/dL Arterial Blood Potassium (3.4-4.5) mmol/L Arterial Blood Glucose (75-99) mg/dL Crossmatch Microbiology - Last 24 Hours (Table) 01/04/24 13:58 Gram Stain - Preliminary Sputum - Imaging and Cardiology Chest x-ray: image reviewed Assessment and Plan Assessment: Coronary artery disease with previous myocardial infarction and prior stenting of the left anterior descending artery as well as left circumflex/OM, stable angina, status post three-vessel off-pump CABG Hypertension Hyperlipidemia, treated, cholesterol 140, LDL 79 Diabetes, preoperative hemoglobin A1c 7.8% Hypothyroid, preoperative TSH < 0.015, free T4 3.19 Bilateral internal carotid artery stenosis, 50-69% Asthma Chronic back and neck pain Remote history of pneumonia Daily marijuana use with recent cessation Previous tobacco dependence, preoperative FEV1 100% of predicted, DLCO 119 Remote history of syncope Family history of premature coronary artery disease Preoperative nasal swab positive for MSSA, treated Postoperative acute blood loss anemia and thrombocytopenia, expected Plan: Continue to maximize medical therapy with aspirin, statin, Plavix, beta-xavi. Will increase beta-xavi therapy as tolerated Will add oral calcium channel xavi for radial artery spasm prophylaxis with hold parameters Continue amiodarone for A-fib prophylaxis. Patient has no documented A-fib at t his point. Will transition to oral Wean O2 as tolerated. Encourage incentive spirometry use 10 times every hour while awake. Bronchodilators per pulmonology Increase activity, ambulate as tolerated. PT/OT/cardiac rehab consulted Will monitor daily labs and x-rays. Electrolyte replacement per protocol GI/DVT prophylaxis Pain control with current medication regimen. Toradol added for better pain control Insulin management per internal medicine, patient should remain on continuous IV insulin for 48 hours, then may transition to sliding scale coverage per protocol Discontinue [place]. Connect Cordis to continuous CVP monitoring Continue Galdamez catheter for another 24 hours, continue to monitor strict accurate intake and output Daily weights Continue chest tubes for another 24 hours, monitor output More recommendations to follow based on patient's progress
[2024-01-05 08:25] LABS: Glucose,Whole Blood 115 mg/dL (70-110)
[2024-01-05] MEDS: PANTOPRAZOLE 40 MG/10 ML VIAL IVP SCH (08:26)
[2024-01-05] MEDS: ASCORBIC ACID 500 MG TAB PO SCH (08:27)
[2024-01-05] MEDS: MAGNESIUM SULFATE-D5W PMX 1 GM in DEXTROSE/WATER 1 100ML.BAG IVPB ONE (08:28)
[2024-01-05] MEDS: FERROUS SULFATE 325 MG TAB PO SCH (08:28)
[2024-01-05] MEDS ORDERED: bisacodyL 10 MG SUPP RECTAL PRN (09:00)
[2024-01-05] MEDS ORDERED: METOPROLOL TARTRATE 12.5 MG TAB PO SCH (09:00)
[2024-01-05 09:12] LABS: Glucose,Whole Blood 122 mg/dL (70-110)
[2024-01-05] MEDS: AMIODARONE 200 MG TAB PO SCH (09:12)
[2024-01-05] MEDS: METOPROLOL TARTRATE 25 MG TAB PO SCH (09:12)
[2024-01-05] MEDS: CLOPIDOGREL 75 MG TAB PO SCH (09:12)
[2024-01-05] MEDS: ASPIRIN 325 MG TAB PO SCH (09:12)
[2024-01-05] MEDS: methocarbamoL 500 MG TAB PO SCH (09:27)
--- NOTE | 2024-01-05 09:46 | P.CRDCN ---
History of Present Illness Consult date: 01/05/24 History of present illness: History of Present Illness: The patient is a 53-year-old female with known history of CAD, followed by Dr. Osborn who underwent cardiac catheterization on December 04 and was found to have significant left main disease in addition to ostial LAD and proximal RCA disease. She underwent CABG yesterday, she is extubated sitting up in the chair, in sinus mechanism on no vasopressors. She has prior history of stenting of the LAD and left circumflex as well is a history of chronic tobacco use. Her echocardiogram showed a preserved biventricular size and systolic function. She received a SANDERSON to the LAD SVG to RCA and radial to the OM, off-pump. Medications: As outpatient she is on hydrochlorothiazide, hydralazine 50 mg daily, isosorbide, atorvastatin 80 mg daily, metformin 1 g daily, metoprolol succinate 50 mg daily, aspirin, losartan 50 mg daily Review of Systems: Respiratory: She has chronic dyspnea on exertion and chronic smoking GI: [No nausea or vomiting . No history of peptic ulcer disease. No recent GI bleed.] : [No hematuria or dysuria.] Nervous System: [No stroke or seizure.] Physical Examination: 53-year-old female, alert mildly sleepy answering questions,Blood pressure 132/55, heart rate in the 80s Head: [Normocephalic.] Eyes: [Sclerae nonicteric.] Neck: [Good carotid upstroke, no bruit, no jugular venous distention., Be[place]- Jose catheter in place] Lungs: Scattered rhonchi at the bases ] Heart: [Regular rate and rhythm, S1-S2, no S3, no rub. No murmur.] Abdomen: [Soft nontender, positive bowel sounds no organomegaly.] Extremities: [No edema, intact distal pulses.] Labs: Hemoglobin 8.5, BUN 10, creatinine 1.48 Impression: 1. Status post CABG, extubated 2. History of hypertension 3. History of hyperlipidemia 4. History of diabetes 5. Chronic tobacco use Plan: 1. Continue incentive spirometry 2. Remove Beaver-Jose catheter 3. Continue statin, Norvasc because of the radial bypass 4. Depending on the blood pressure losartan 5. Depending on her progress further recommendations will be made, thank you for this consult we will follow with you. Past Medical History Past Medical History: Asthma, COPD, Diabetes Mellitus, Hyperlipidemia, Hypertension, Myocardial Infarction ([place]), Musculoskeletal Disorder, Rheumatoid Arthritis ([place]), Thyroid Disorder Additional Past Medical History / Comment(s): Back Pain, right shoulder pain, Hx Pituitary Tumor, BENIGN. Thyroid disorder. 3 heart attacks-most recent March 2022, 3 stents total, neuropathy Last Myocardial Infarction Date:: 10/29/22 History of Any Multi-Drug Resistant Organisms: None Reported Past Surgical History: Section, Heart Catheterization With Stent, Tubal Ligation Additional Past Surgical History / Comment(s): Pituitary Tumor Removed. colonoscopy, PAIN CL[facility] PROCEDURES stents x3 c section x4 Past Anesthesia/Blood Transfusion Reactions: No Reported Reaction Date of Last Stent Placement:: March 2022 Smoking Status: Never smoker - Past Family History Mother History Unknown: Yes Family Medical History: Deep Vein Thrombosis (DVT) Additional Family Medical History / Comment(s): Mother is alive at age 67 with history of coronary artery disease and three-vessel CABG. Daughter(s) History Unknown: Yes Family Medical History: Deep Vein Thrombosis (DVT) Additional Family Medical History / Comment(s): Patient has a total of 9 children with no major medical problems. Father History Unknown: Yes Family Medical History: Cancer Additional Family Medical History / Comment(s): Father is alive with no history of coronary artery disease. History of Prostate Cancer Sister(s) History Unknown: Yes Additional Family Medical History / Comment(s): The patient has 4 sisters and 1 brother. One sister had a myocardial infraction at age 40. Medications and Allergies Home Medications Medication Instructions Recorded Confirmed Type Aspirin EC [Ecotrin Low Dose] 81 mg PO DAILY 05/05/20 01/04/24 History Atorvastatin [Lipitor] 80 mg PO HS 05/05/20 01/04/24 History Isosorbide Mononitrate ER [Imdur] 30 mg PO DAILY 01/19/22 01/04/24 History metFORMIN HCL [Glucophage] 1,000 mg PO DAILY 01/19/22 01/04/24 History Albuterol Inhaler [Ventolin Hfa 2 puff INHALATION RT-QID PRN 12/02/23 01/04/24 History Inhaler] Metoprolol Succinate [Toprol XL] 50 mg PO DAILY 12/02/23 01/04/24 History Ondansetron Odt [Zofran ODT] 4 mg PO Q12HR PRN 12/02/23 01/04/24 History Docusate [Colace] 100 mg PO DAILY PRN 12/04/23 01/04/24 History Nitroglycerin Sl Tabs [Nitrostat] 0.4 mg SL Q5M PRN #30 tab 12/06/23 01/04/24 Rx hydroCHLOROthiazide [Hydrodiuril] 25 mg PO DAILY #60 tab 12/19/23 01/04/24 Rx Losartan Potassium 50 mg PO DAILY 12/26/23 01/04/24 History Mupirocin [Mupirocin 2%] 1 applic NASAL BID #1 tub 12/26/23 01/04/24 Rx hydrALAZINE HCL [Apresoline] 50 mg PO DAILY 12/26/23 01/04/24 History Prasugrel(Effient)Unknown Dose 1 tab PO DAILY 01/01/24 01/04/24 History Cbd Gummy PO HS 01/03/24 History Allergies Allergy/AdvReac Type Severity Reaction Status Date / Time Iodinated Contrast Media Allergy Rash/Hives Verified 01/04/24 06:29 peanut AdvReac HIVES Verified 01/04/24 06:29 rice AdvReac Rash/Hives Verified 01/04/24 06:29 seasonal Allergy Rash/Hives Uncoded 01/04/24 06:29 Physical Exam Vitals: Vital Signs Temp Pulse Resp Pulse Ox FiO2 01/05/24 09:00 89 14 99 01/05/24 08:30 89 23 99 01/05/24 08:16 89 01/05/24 08:03 99 01/05/24 08:02 93 01/05/24 08:00 99.1 F 93 23 100 01/05/24 07:30 96 20 100 01/05/24 07:00 95 26 H 99 01/05/24 06:30 93 35 H 99 01/05/24 06:00 96 39 H 100 01/05/24 05:30 94 33 H 100 01/05/24 05:00 92 26 H 100 01/05/24 04:30 91 22 100 01/05/24 04:00 99.3 F 90 23 98 01/05/24 03:30 91 24 100 01/05/24 03:00 87 18 100 01/05/24 02:30 92 27 H 100 01/05/24 02:00 90 16 100 01/05/24 01:30 88 22 100 01/05/24 01:00 87 22 100 01/05/24 00:30 87 28 H 100 01/05/24 00:00 99.5 F 85 28 H 100 01/04/24 23:30 85 31 H 100 01/04/24 23:19 85 30 H 100 01/04/24 23:00 84 26 H 100 01/04/24 22:30 85 28 H 100 01/04/24 22:00 86 25 H 100 01/04/24 21:30 84 26 H 100 01/04/24 21:00 87 28 H 100 01/04/24 20:30 91 26 H 100 01/04/24 20:29 100 01/04/24 20:00 100.4 F H 89 30 H 100 40 01/04/24 19:54 40 01/04/24 19:33 89 01/04/24 19:32 40 01/04/24 19:30 90 16 96 01/04/24 19:27 89 01/04/24 19:06 40 01/04/24 19:00 96 31 H 100 01/04/24 18:30 96 17 100 01/04/24 18:00 99 16 95 01/04/24 17:30 101 H 20 100 01/04/24 17:15 102 H 20 01/04/24 17:00 102 H 16 100 01/04/24 16:45 99 20 100 40 01/04/24 16:40 40 01/04/24 16:30 101 H 25 H 100 01/04/24 16:15 102 H 16 100 01/04/24 16:07 50 01/04/24 16:00 101 H 25 H 100 50 01/04/24 15:50 50 01/04/24 15:45 98 23 100 01/04/24 15:38 105 H 01/04/24 15:30 98 24 100 01/04/24 15:23 100 01/04/24 15:15 101 H 26 H 100 01/04/24 15:00 99 22 100 01/04/24 14:45 96 20 100 01/04/24 14:30 109 H 17 100 50 01/04/24 14:25 50 01/04/24 14:15 87 17 99 01/04/24 14:00 89 14 100 100 01/04/24 13:48 97 20 100 100 Intake and Output 01/04/24 01/05/24 01/05/24 22:59 06:59 14:59 Intake Total 675.735 639.07 424 Output Total 1005 635 120 Balance -329.265 4.07 304 Intake: IV 593 632 274 .9NS Pressure Bag 63 72 24 CO/CI 80 160 20 Lactated Ringers 1,000 ml 350 400 130 @ 20 mls/hr IV .Q24H [facility] Rx#:[id number] Magnesium Sulfate-D5w Pmx 100 100 1 gm In Dextrose/Water 1 100ml.bag @ 100 mls/hr IVPB ONCE ONE Rx#: [id number] Intake, IV Titration 82.735 7.07 150 Amount Clevidipine Butyrate 25 6.867 mg In Empty Bag 1 bag @ 1 MG/HR 2 mls/hr IV .Q24H [facility] Rx#:[id number] Dexmedetomidine/0.9% NaCl 8.188 (Pmx) 400 mcg In Empty Bag 1 bag @ Titrate IV . Q0M [facility] Rx#:[id number] Insulin Regular 100 unit 20.216 7.07 In Sodium Chloride 0.9% 100 ml @ Per Protocol IV .Q0M [facility] Rx#:[id number] Magnesium Sulfate-D5w Pmx 100 1 gm In Dextrose/Water 1 100ml.bag @ 100 mls/hr IVPB ONCE ONE Rx#: [id number] ceFAZolin 2 gm In Sodium 50 Chloride 0.9% 50 ml @ 100 mls/hr IVPB Q8H [facility] Rx#: [id number] propofoL 1,000 mg In 47.464 Empty Bag 1 bag @ Titrate IV .Q0M [facility] Rx#: [id number] Output: Chest Tube Drainage 650 310 50 Chest Tube Bilateral 220 100 10 Chest Tube Mediastinal 430 210 40 Urine 355 325 70 Other: Voiding Method Indwelling Catheter Indwelling Catheter Weight 68.9 kg ABP, PAP, CO, CI - Last 8 Hours Arterial Blood Pressure 132/55 Arterial Blood Pressure 112/46 Arterial Blood Pressure 122/49 Arterial Blood Pressure 164/59 Arterial Blood Pressure 131/56 Arterial Blood Pressure 133/52 Arterial Blood Pressure 135/53 Arterial Blood Pressure 135/58 Arterial Blood Pressure 111/49 Arterial Blood Pressure 113/49 Arterial Blood Pressure 105/46 Arterial Blood Pressure 104/49 Arterial Blood Pressure 103/49 Arterial Blood Pressure 110/47 Arterial Blood Pressure 109/48 Pulmonary Artery Pressure 17/6 Pulmonary Artery Pressure 18/7 Pulmonary Artery Pressure 21/11 Pulmonary Artery Pressure 24/14 Pulmonary Artery Pressure 19/9 Pulmonary Artery Pressure 27/16 Pulmonary Artery Pressure 32/19 Pulmonary Artery Pressure 28/13 Pulmonary Artery Pressure 25/18 Pulmonary Artery Pressure 23/13 Pulmonary Artery Pressure 24/11 Pulmonary Artery Pressure 24/10 Pulmonary Artery Pressure 24/9 Pulmonary Artery Pressure 24/10 Cardiac Output 5.4 Cardiac Output 5.4 Cardiac Output 5.4 Cardiac Output 5.4 Cardiac Output 5.4 Cardiac Output 5.6 Cardiac Output 5.2 Cardiac Output 5.2 Cardiac Index 3.4 Cardiac Index 3.4 Cardiac Index 3.4 Cardiac Index 3.4 Cardiac Index 3.4 Cardiac Index 3.5 Cardiac Index 3.3 Cardiac Index 3.3 Results 01/05/24 05:00 01/05/24 05:00 Cardiac Enzymes 01/04/24 01/05/24 Range/Units 13:58 05:00 AST 30 39 H (14-36) U/L Coagulation 01/04/24 Range/Units 13:58 PT 12.2 (10.0-12.5) sec APTT 24.9 (22.0-30.0) sec CBC 01/04/24 01/04/24 01/04/24 Range/Units 13:58 16:40 19:55 WBC 15.0 H 10.8 H 9.4 (3.8-10.6) k/uL RBC 3.11 L 2.98 L 2.80 L (3.80-5.40) m/uL Hgb 9.0 L D 8.9 L 8.6 L (11.4-16.0) gm/dL Hct 26.8 L 25.1 L 23.7 L (34.0-46.0) % Plt Count 199 186 168 (150-450) k/uL 01/05/24 Range/Units 05:00 WBC 9.5 (3.8-10.6) k/uL RBC 2.90 L (3.80-5.40) m/uL Hgb 8.5 L (11.4-16.0) gm/dL Hct 24.9 L (34.0-46.0) % Plt Count 137 L (150-450) k/uL Comprehensive Metabolic Panel 01/04/24 01/05/24 Range/Units 13:58 05:00 Sodium 139 136 L (137-145) mmol/L Potassium 4.2 4.2 (3.5-5.1) mmol/L Chloride 108 H 107 (98-107) mmol/L Carbon Dioxide 22 23 (22-30) mmol/L BUN 10 10 (7-17) mg/dL Creatinine 0.36 L 0.48 L (0.52-1.04) mg/dL Glucose 163 H 109 H (74-99) mg/dL Calcium 8.4 8.6 (8.4-10.2) mg/dL AST 30 39 H (14-36) U/L ALT 22 18 (4-34) U/L Alkaline Phosphatase 67 78 (38-126) U/L Total Protein 5.2 L 5.0 L (6.3-8.2) g/dL Albumin 3.3 L 3.0 L (3.5-5.0) g/dL Current Medications Generic Name Dose Route Start Last Admin Trade Name Freq PRN Reason Stop Dose Admin Acetaminophen 1,000 mg 01/05/24 06:34 Acetaminophen Tab 500 Mg Tab PO Q6HR PRN Fever and/ or Pain Albuterol/Ipratropium 3 ml 01/04/24 13:23 Ipratropium-Albuterol 3 Ml Neb INHALATION RT-Q2H PRN Shortness Of Breath Or Wheezing Albuterol/Ipratropium 3 ml 01/04/24 20:00 01/05/24 08:01 Ipratropium-Albuterol 3 Ml Neb INHALATION 3 ml RT-QID [facility] Administration Amiodarone HCl 400 mg 01/05/24 09:00 01/05/24 09:12 Amiodarone 200 Mg Tab PO 400 mg BID [facility] Administration Amlodipine Besylate 2.5 mg 01/05/24 12:00 Amlodipine 2.5 Mg Tab PO DAILY@1200 [facility] Ascorbic Acid 500 mg 01/05/24 07:30 01/05/24 08:27 Ascorbic Acid 500 Mg Tab PO 500 mg BID-W/MEALS [facility] Administration Aspirin 325 mg 01/05/24 09:00 01/05/24 09:12 Aspirin 325 Mg Tab PO 325 mg DAILY [facility] Administration Atorvastatin Calcium 80 mg 01/05/24 21:00 Atorvastatin 80 Mg Tab PO HS [facility] Benzocaine/Menthol 1 each 01/04/24 13:23 Benzocaine/Menthol Lozeng 1 Each Lozenge MUCOUS MEM Q2H PRN Sore Throat Bisacodyl 10 mg 01/05/24 09:00 Bisacodyl 10 Mg Supp RECTAL DAILY PRN Constipation Clopidogrel Bisulfate 75 mg 01/05/24 09:00 01/05/24 09:12 Clopidogrel 75 Mg Tab PO 75 mg DAILY [facility] Administration Dextrose/Water 25 ml 01/04/24 13:23 Dextrose 50% Syringe 50 Ml IVP PER PROTOCOL PRN Hypoglycemia Protocol Dextrose/Water 50 ml 01/04/24 13:23 Dextrose 50% Syringe 50 Ml IVP PER PROTOCOL PRN Hypoglycemia Protocol Ferrous Sulfate 325 mg 01/05/24 07:30 01/05/24 08:28 Ferrous Sulfate 325 Mg Tab PO 325 mg BID-W/MEALS [facility] Administration Heparin Sodium (Porcine) 5,000 unit 01/04/24 16:00 01/05/24 08:27 Heparin Sodium,Porcine 5,000 Unit/Ml 1 Ml Vial SQ 5,000 unit Q8HR [facility] Administration Hydralazine HCl 10 mg 01/04/24 13:23 Hydralazine Hcl 20 Mg/Ml 1 Ml Vial IVP Q1H PRN Blood Pressure - High Amiodarone HCl 450 mg/ 250 mls @ 16.667 mls/hr 01/04/24 19:22 01/04/24 21:30 Dextrose/Water IV 01/05/24 13:21 0.5 mg/min .Q15H [facility] 16.667 mls/hr Administration Protocol 0.5 MG/MIN Amiodarone HCl 150 mg/ 103 mls @ 618 mls/hr 01/04/24 13:23 Dextrose/Water IV .Q10M PRN A.FIB/FLUTTER Albumin Human 250 ml/ IV 250 mls @ 250 mls/hr 01/04/24 13:23 01/05/24 00:59 Solution IVPB 01/06/24 13:24 250 mls/hr Q1HR PRN Administration For Volume Protocol Lactated Ringer's 1,000 mls @ 20 mls/hr 01/04/24 13:23 01/04/24 14:49 Lactated Ringers IV 50 mls/hr .Q24H [facility] Administration Insulin Human Regular 100 unit 101 mls @ 0 mls/hr 01/04/24 13:23 01/05/24 06:33 / Sodium Chloride IV 1 unit/hr .Q0M [facility] 1.01 mls/hr Titration Protocol Per Protocol Ketorolac Tromethamine 15 mg 01/05/24 06:45 01/05/24 07:01 Ketorolac 15 Mg/Ml 1 Ml Vial IVP 01/10/24 06:34 15 mg Q6HR [facility] Administration Magnesium Hydroxide 2,400 mg 01/05/24 09:00 Magnesium Hydroxide 2,400 Mg/30 Ml Cup PO BID PRN Constipation Methocarbamol 500 mg 01/05/24 09:00 01/05/24 09:27 Methocarbamol 500 Mg Tab PO 500 mg QID [facility] Administration Metoclopramide HCl 10 mg 01/04/24 13:23 01/05/24 06:55 Metoclopramide 5 Mg/Ml 2 Ml Vial IVP 10 mg Q4H PRN Administration Nausea And Vomiting Metoprolol Tartrate 25 mg 01/05/24 09:00 01/05/24 09:12 Metoprolol Tartrate 25 Mg Tab PO 25 mg BID [facility] Administration Miscellaneous Information 1 each 01/04/24 13:23 Potassium Replacement Protocol 1 Each Misc MISCELLANE DAILY PRN Per Protocol Protocol Miscellaneous Information 1 each 01/04/24 13:23 Magnesium Replacement Protocol 1 Each Misc MISCELLANE DAILY PRN Per Protocol Protocol Mupirocin 1 applic 01/04/24 21:00 01/05/24 00:11 Mupirocin 2% Oint 22 Gm Tube NASAL 01/07/24 21:01 1 applic BID [facility] Administration Ondansetron HCl 4 mg 01/04/24 13:23 01/05/24 06:42 Ondansetron 4 Mg/2 Ml Vial IVP 4 mg Q6HR PRN Administration Nausea And Vomiting Oxycodone HCl 5 mg 01/04/24 13:23 01/05/24 06:38 Oxycodone Hcl 5 Mg Tab PO 5 mg Q4HR PRN Administration Moderate Pain (Scale 4 to 6) Oxycodone HCl 10 mg 01/04/24 13:23 01/05/24 02:39 Oxycodone Hcl 5 Mg Tab PO 10 mg Q4HR PRN Administration Severe Pain (Scale 7 to 10) Pantoprazole Sodium 40 mg 01/05/24 09:00 01/05/24 08:26 Pantoprazole 40 Mg/10 Ml Vial IVP 01/05/24 10:00 40 mg DAILY [facility] Administration Pantoprazole Sodium 40 mg 01/06/24 07:30 Pantoprazole 40 Mg Tablet PO [id number] [facility] Senna/Docusate Sodium 2 each 01/04/24 21:00 01/04/24 20:15 Sennosides-Docusate Sodium 1 Each Tab PO 2 each HS [facility] Administration Sodium Chloride 10 ml 01/04/24 21:00 01/05/24 09:12 Sodium Chloride 0.9% Flush 10 Ml Syringe IV 10 ml BID [facility] Administration Intake and Output 01/04/24 01/05/24 01/05/24 22:59 06:59 14:59 Intake Total 675.735 639.07 424 Output Total 1005 635 120 Balance -329.265 4.07 304 Intake: IV 593 632 274 .9NS Pressure Bag 63 72 24 CO/CI 80 160 20 Lactated Ringers 1,000 ml 350 400 130 @ 20 mls/hr IV .Q24H [facility] Rx#:[id number] Magnesium Sulfate-D5w Pmx 100 100 1 gm In Dextrose/Water 1 100ml.bag @ 100 mls/hr IVPB ONCE ONE Rx#: [id number] Intake, IV Titration 82.735 7.07 150 Amount Clevidipine Butyrate 25 6.867 mg In Empty Bag 1 bag @ 1 MG/HR 2 mls/hr IV .Q24H [facility] Rx#:[id number] Dexmedetomidine/0.9% NaCl 8.188 (Pmx) 400 mcg In Empty Bag 1 bag @ Titrate IV . Q0M [facility] Rx#:[id number] Insulin Regular 100 unit 20.216 7.07 In Sodium Chloride 0.9% 100 ml @ Per Protocol IV .Q0M [facility] Rx#:[id number] Magnesium Sulfate-D5w Pmx 100 1 gm In Dextrose/Water 1 100ml.bag @ 100 mls/hr IVPB ONCE ONE Rx#: [id number] ceFAZolin 2 gm In Sodium 50 Chloride 0.9% 50 ml @ 100 mls/hr IVPB Q8H [facility] Rx#: [id number] propofoL 1,000 mg In 47.464 Empty Bag 1 bag @ Titrate IV .Q0M [facility] Rx#: [id number] Output: Chest Tube Drainage 650 310 50 Chest Tube Bilateral 220 100 10 Chest Tube Mediastinal 430 210 40 Urine 355 325 70 Other: Voiding Method Indwelling Catheter Indwelling Catheter Weight 68.9 kg 01/05/24 05:00 01/05/24 05:00
[2024-01-05 10:05] LABS: Glucose,Whole Blood 153 mg/dL (70-110)
--- NOTE | 2024-01-05 11:04 | P.CONS ---
History of Present Illness - Reason for Consult Consult date: 01/05/24 - History of Present Illness 53-year-old female with a PMH of CAD status post multiple stents, COPD, type II DM, hypertension, hyperlipidemia, hypothyroidism who was recently admitted to the hospital for chest pain. She was discharged home on 12/03/2023 and returned to the emergency room on 12/04 evening with complaints of worsening epigastric pain. EKG at that time revealed sinus rhythm at [address] segment arely vation in leads V1 and V2. Emergent cardiac catheterization revealed severe triple-vessel disease. She was discharged with plans for CABG to be scheduled in the outpatient setting. She underwent off pump CABG x [address] Massey on 01/03. EBL 250 cc. [facility] consulted for medical management of this patient. Patient was extubated on 01/03 at 8:24PM. 01/04 Patient was seen and examined. Currently on Amiodarone drip at 0.5 mg/min and Insulin drip at 1.5 unit/hr. She reports chest pain at the site of incision with deep inspiration. No BM or passing gas. She continues to have bilateral and mediastinal chest tubes along with riley catheter. CBC Hg 9.5 Hct 24.9 Plt 137. CMP Na 136, Cr 0.48, glu 109, AST 39, Alb 3. CXR shows some mild pulmonary vascular congestion. She is curently 99% on 2L NC. CT surgery note reviewed, plans to switch Amiodarone to PO, add PO CCB, DC Sneads. General: non toxic, no distress, appears at stated age Derm: warm, dry Head: atraumatic, normocephalic, symmetric Eyes: EOMI, no lid lag, anicteric sclera Mouth: no lip lesion, mucus membranes moist Cardiovascular: S1S2 reg, no murmur Lungs: CTA bilateral, no rhonchi, no rales , no accessory muscle use Abdominal: soft, nontender to palpation, no guarding, no appreciable organomegaly Ext: no gross muscle atrophy, no edema, no contractures Neuro: no focal neuro deficits Psych: Alert, oriented, appropriate affect Based on my assessment of this patient, this patient meets a high complexity level of care. Patient has an acute diagnosis of POD 1 off pump CABG x 3 that poses a threat to life or bodily function. Acute blood loss anemia: Expected result of surgery. Monitor daily CBC. Acute hypoxic respiratory failure: Improving. Extubated 01/03. Continue IS. History of CAD post CABG POD 1 Chronic conditions: COPD, type II DM, hypertension, hyperlipidemia, hypothyroidism CODE STATUS: FULL CODE. DVT Prophylaxis: Heparin SQ. GI Prophylaxis: Protonix IV Designated medical POA if patient is not able to make medical decisions for themselves: I have reviewed the following groundwater consultant notes: CT surgery. I have reviewed the results of the following tests: CBC, CMP. I have ordered the following tests: I have discussed the care of this patient with the following independent historian: I have independently interpreted the following test below: CXR I have discussed the management of this patient with the following physician: Past Medical History Past Medical History: Asthma, COPD, Diabetes Mellitus, Hyperlipidemia, Hypertension, Myocardial Infarction (OR), Musculoskeletal Disorder, Rheumatoid Arthritis (RA), Thyroid Disorder Additional Past Medical History / Comment(s): Back Pain, right shoulder pain, Hx Pituitary Tumor, BENIGN. Thyroid disorder. 3 heart attacks-most recent March 2022, 3 stents total, neuropathy Last Myocardial Infarction Date:: 10/29/22 History of Any Multi-Drug Resistant Organisms: None Reported Past Surgical History: Section, Heart Catheterization With Stent, Tubal Ligation Additional Past Surgical History / Comment(s): Pituitary Tumor Removed. colonoscopy, PAIN CLINIC PROCEDURES stents x3 c section x4 Past Anesthesia/Blood Transfusion Reactions: No Reported Reaction Date of Last Stent Placement:: March 2022 Smoking Status: Never smoker - Past Family History Mother History Unknown: Yes Family Medical History: Deep Vein Thrombosis (DVT) Additional Family Medical History / Comment(s): Mother is alive at age 67 with history of coronary artery disease and three-vessel CABG. Daughter(s) History Unknown: Yes Family Medical History: Deep Vein Thrombosis (DVT) Additional Family Medical History / Comment(s): Patient has a total of 9 children with no major medical problems. Father History Unknown: Yes Family Medical History: Cancer Additional Family Medical History / Comment(s): Father is alive with no history of coronary artery disease. History of Prostate Cancer Sister(s) History Unknown: Yes Additional Family Medical History / Comment(s): The patient has 4 sisters and 1 brother. One sister had a myocardial infraction at age 40. Medications and Allergies Home Medications Medication Instructions Recorded Confirmed Type Aspirin EC [Ecotrin Low Dose] 81 mg PO DAILY 05/05/20 01/04/24 History Atorvastatin [Lipitor] 80 mg PO HS 05/05/20 01/04/24 History Isosorbide Mononitrate ER [Imdur] 30 mg PO DAILY 01/19/22 01/04/24 History metFORMIN HCL [Glucophage] 1,000 mg PO DAILY 01/19/22 01/04/24 History Albuterol Inhaler [Ventolin Hfa 2 puff INHALATION RT-QID PRN 12/02/23 01/04/24 History Inhaler] Metoprolol Succinate [Toprol XL] 50 mg PO DAILY 12/02/23 01/04/24 History Ondansetron Odt [Zofran ODT] 4 mg PO Q12HR PRN 12/02/23 01/04/24 History Docusate [Colace] 100 mg PO DAILY PRN 12/04/23 01/04/24 History Nitroglycerin Sl Tabs [Nitrostat] 0.4 mg SL Q5M PRN #30 tab 12/06/23 01/04/24 Rx hydroCHLOROthiazide [Hydrodiuril] 25 mg PO DAILY #60 tab 12/19/23 01/04/24 Rx Losartan Potassium 50 mg PO DAILY 12/26/23 01/04/24 History Mupirocin [Mupirocin 2%] 1 applic NASAL BID #1 tub 12/26/23 01/04/24 Rx hydrALAZINE HCL [Apresoline] 50 mg PO DAILY 12/26/23 01/04/24 History Prasugrel(Effient)Unknown Dose 1 tab PO DAILY 01/01/24 01/04/24 History Cbd Gummy PO HS 01/03/24 History Allergies Allergy/AdvReac Type Severity Reaction Status Date / Time Iodinated Contrast Media Allergy Rash/Hives Verified 01/04/24 06:29 peanut AdvReac HIVES Verified 01/04/24 06:29 rice AdvReac Rash/Hives Verified 01/04/24 06:29 seasonal Allergy Rash/Hives Uncoded 01/04/24 06:29 Physical Exam Vitals: Vital Signs Temp Pulse Resp Pulse Ox FiO2 01/05/24 08:16 89 01/05/24 08:03 99 01/05/24 08:02 93 01/05/24 07:00 95 26 H 99 01/05/24 06:30 93 35 H 99 01/05/24 06:00 96 39 H 100 01/05/24 05:30 94 33 H 100 01/05/24 05:00 92 26 H 100 01/05/24 04:30 91 22 100 01/05/24 04:00 99.3 F 90 23 98 01/05/24 03:30 91 24 100 01/05/24 03:00 87 18 100 01/05/24 02:30 92 27 H 100 01/05/24 02:00 90 16 100 01/05/24 01:30 88 22 100 01/05/24 01:00 87 22 100 01/05/24 00:30 87 28 H 100 01/05/24 00:00 99.5 F 85 28 H 100 01/04/24 23:30 85 31 H 100 01/04/24 23:19 85 30 H 100 01/04/24 23:00 84 26 H 100 01/04/24 22:30 85 28 H 100 01/04/24 22:00 86 25 H 100 01/04/24 21:30 84 26 H 100 01/04/24 21:00 87 28 H 100 01/04/24 20:30 91 26 H 100 01/04/24 20:29 100 01/04/24 20:00 100.4 F H 89 30 H 100 40 01/04/24 19:54 40 01/04/24 19:33 89 01/04/24 19:32 40 01/04/24 19:30 90 16 96 01/04/24 19:27 89 01/04/24 19:06 40 01/04/24 19:00 96 31 H 100 01/04/24 18:30 96 17 100 01/04/24 18:00 99 16 95 01/04/24 17:30 101 H 20 100 01/04/24 17:15 102 H 20 01/04/24 17:00 102 H 16 100 01/04/24 16:45 99 20 100 40 01/04/24 16:40 40 01/04/24 16:30 101 H 25 H 100 01/04/24 16:15 102 H 16 100 01/04/24 16:07 50 01/04/24 16:00 101 H 25 H 100 50 01/04/24 15:50 50 01/04/24 15:45 98 23 100 01/04/24 15:38 105 H 01/04/24 15:30 98 24 100 01/04/24 15:23 100 01/04/24 15:15 101 H 26 H 100 01/04/24 15:00 99 22 100 01/04/24 14:45 96 20 100 01/04/24 14:30 109 H 17 100 50 01/04/24 14:25 50 01/04/24 14:15 87 17 99 01/04/24 14:00 89 14 100 100 01/04/24 13:48 97 20 100 100 Intake and Output 01/04/24 01/05/24 01/05/24 22:59 06:59 14:59 Intake Total 675.735 639.07 79 Output Total 1005 635 45 Balance -329.265 4.07 34 Intake: IV 593 632 79 .9NS Pressure Bag 63 72 9 CO/CI 80 160 20 Lactated Ringers 1,000 ml 350 400 50 @ 20 mls/hr IV .Q24H [facility] Rx#:[id number] Magnesium Sulfate-D5w Pmx 100 1 gm In Dextrose/Water 1 100ml.bag @ 100 mls/hr IVPB ONCE ONE Rx#: [id number] Intake, IV Titration 82.735 7.07 Amount Clevidipine Butyrate 25 6.867 mg In Empty Bag 1 bag @ 1 MG/HR 2 mls/hr IV .Q24H [facility] Rx#:[id number] Dexmedetomidine/0.9% NaCl 8.188 (Pmx) 400 mcg In Empty Bag 1 bag @ Titrate IV . Q0M [facility] Rx#:[id number] Insulin Regular 100 unit 20.216 7.07 In Sodium Chloride 0.9% 100 ml @ Per Protocol IV .Q0M [facility] Rx#:[id number] propofoL 1,000 mg In 47.464 Empty Bag 1 bag @ Titrate IV .Q0M [facility]ERA Rx#: [id number] Output: Chest Tube Drainage 650 310 20 Chest Tube Bilateral 220 100 10 Chest Tube Mediastinal 430 210 10 Urine 355 325 25 Other: Voiding Method Indwelling Catheter Indwelling Catheter Weight 68.9 kg ABP, PAP, CO, CI - Last 8 Hours Arterial Blood Pressure 131/56 Arterial Blood Pressure 133/52 Arterial Blood Pressure 135/53 Arterial Blood Pressure 135/58 Arterial Blood Pressure 111/49 Arterial Blood Pressure 113/49 Arterial Blood Pressure 105/46 Arterial Blood Pressure 104/49 Arterial Blood Pressure 103/49 Arterial Blood Pressure 110/47 Arterial Blood Pressure 109/48 Arterial Blood Pressure 101/48 Arterial Blood Pressure 98/45 Arterial Blood Pressure 115/19 Pulmonary Artery Pressure 24/14 Pulmonary Artery Pressure 19/9 Pulmonary Artery Pressure 27/16 Pulmonary Artery Pressure 32/19 Pulmonary Artery Pressure 28/13 Pulmonary Artery Pressure 25/18 Pulmonary Artery Pressure 23/13 Pulmonary Artery Pressure 24/11 Pulmonary Artery Pressure 24/10 Pulmonary Artery Pressure 24/9 Pulmonary Artery Pressure 24/10 Pulmonary Artery Pressure 24/11 Pulmonary Artery Pressure 21/7 Pulmonary Artery Pressure 28/11 Cardiac Output 5.4 Cardiac Output 5.6 Cardiac Output 5.2 Cardiac Output 5.2 Cardiac Output 4.3 Cardiac Index 3.4 Cardiac Index 3.5 Cardiac Index 3.3 Cardiac Index 3.3 Cardiac Index 2.7 Results CBC & Chem 7: 01/05/24 05:00 01/05/24 05:00 Labs: Abnormal Lab Results - Last 24 Hours (Table) 12/26/23 01/04/24 01/04/24 Range/Units 09:37 08:39 09:52 WBC (3.8-10.6) k/uL RBC (3.80-5.40) m/uL Hgb (11.4-16.0) gm/dL Hct (34.0-46.0) % Plt Count (150-450) k/uL Neutrophils # (1.3-7.7) k/uL Lymphocytes # (1.0-4.8) k/uL ABG pH 7.46 H (7.35-7.45) ABG pCO2 (35-45) mmHg ABG pO2 308 H 202 H (83-108) mmHg ABG HCO3 29 H (21-25) mmol/L ABG Total CO2 (19-24) mmol/L ABG O2 Saturation >99.4 H 99.2 H (94-97) % ABG Hematocrit 24 L 30 L (34.0-46.0) % ABG Potassium 2.4 L* 3.2 L (3.4-4.5) mmol/L ABG Ionized Calcium 4.2 L (4.5-5.3) mg/dL ABG Glucose 114 H 145 H (75-99) mg/dL Hemoglobin 7.9 L 9.9 L (11.4-16.0) gm/dL Sodium (137-145) mmol/L Chloride (98-107) mmol/L Creatinine (0.52-1.04) mg/dL Glucose (74-99) mg/dL POC Glucose (mg/dL) (70-110) mg/dL AST (14-36) U/L Total Protein (6.3-8.2) g/dL Albumin (3.5-5.0) g/dL Arterial Blood Potassium 2.4 L* 3.2 L (3.4-4.5) mmol/L Arterial Blood Glucose 114 H 145 H (75-99) mg/dL Crossmatch See Detail 01/04/24 01/04/24 01/04/24 Range/Units 10:55 11:38 12:43 WBC (3.8-10.6) k/uL RBC (3.80-5.40) m/uL Hgb (11.4-16.0) gm/dL Hct (34.0-46.0) % Plt Count (150-450) k/uL Neutrophils # (1.3-7.7) k/uL Lymphocytes # (1.0-4.8) k/uL ABG pH 7.46 H 7.56 H* (7.35-7.45) ABG pCO2 30 L (35-45) mmHg ABG pO2 231 H 209 H 139 H (83-108) mmHg ABG HCO3 28 H 27 H 27 H (21-25) mmol/L ABG Total CO2 (19-24) mmol/L ABG O2 Saturation 99.3 H 99.3 H 98.8 H (94-97) % ABG Hematocrit 30 L 49 H 28 L (34.0-46.0) % ABG Potassium 3.1 L 3.3 L (3.4-4.5) mmol/L ABG Ionized Calcium (4.5-5.3) mg/dL ABG Glucose 143 H 137 H 159 H (75-99) mg/dL Hemoglobin 9.9 L 16.1 H 9.0 L (11.4-16.0) gm/dL Sodium (137-145) mmol/L Chloride (98-107) mmol/L Creatinine (0.52-1.04) mg/dL Glucose (74-99) mg/dL POC Glucose (mg/dL) (70-110) mg/dL AST (14-36) U/L Total Protein (6.3-8.2) g/dL Albumin (3.5-5.0) g/dL Arterial Blood Potassium 3.1 L 3.3 L (3.4-4.5) mmol/L Arterial Blood Glucose 143 H 137 H 159 H (75-99) mg/dL Crossmatch 01/04/24 01/04/24 01/04/24 Range/Units 13:54 13:58 13:58 WBC 15.0 H (3.8-10.6) k/uL RBC 3.11 L (3.80-5.40) m/uL Hgb 9.0 L D (11.4-16.0) gm/dL Hct 26.8 L (34.0-46.0) % Plt Count (150-450) k/uL Neutrophils # 12.3 H (1.3-7.7) k/uL Lymphocytes # (1.0-4.8) k/uL ABG pH (7.35-7.45) ABG pCO2 (35-45) mmHg ABG pO2 (83-108) mmHg ABG HCO3 (21-25) mmol/L ABG Total CO2 (19-24) mmol/L ABG O2 Saturation (94-97) % ABG Hematocrit (34.0-46.0) % ABG Potassium (3.4-4.5) mmol/L ABG Ionized Calcium (4.5-5.3) mg/dL ABG Glucose (75-99) mg/dL Hemoglobin (11.4-16.0) gm/dL Sodium (137-145) mmol/L Chloride 108 H (98-107) mmol/L Creatinine 0.36 L (0.52-1.04) mg/dL Glucose 163 H (74-99) mg/dL POC Glucose (mg/dL) 132 H (70-110) mg/dL AST (14-36) U/L Total Protein 5.2 L (6.3-8.2) g/dL Albumin 3.3 L (3.5-5.0) g/dL Arterial Blood Potassium (3.4-4.5) mmol/L Arterial Blood Glucose (75-99) mg/dL Crossmatch 01/04/24 01/04/24 01/04/24 Range/Units 14:19 15:05 16:05 WBC (3.8-10.6) k/uL RBC (3.80-5.40) m/uL Hgb (11.4-16.0) gm/dL Hct (34.0-46.0) % Plt Count (150-450) k/uL Neutrophils # (1.3-7.7) k/uL Lymphocytes # (1.0-4.8) k/uL ABG pH 7.34 L (7.35-7.45) ABG pCO2 49 H (35-45) mmHg ABG pO2 362 H (83-108) mmHg ABG HCO3 27 H (21-25) mmol/L ABG Total CO2 28 H (19-24) mmol/L ABG O2 Saturation 99.5 H (94-97) % ABG Hematocrit (34.0-46.0) % ABG Potassium (3.4-4.5) mmol/L ABG Ionized Calcium (4.5-5.3) mg/dL ABG Glucose (75-99) mg/dL Hemoglobin (11.4-16.0) gm/dL Sodium (137-145) mmol/L Chloride (98-107) mmol/L Creatinine (0.52-1.04) mg/dL Glucose (74-99) mg/dL POC Glucose (mg/dL) 194 H 190 H (70-110) mg/dL AST (14-36) U/L Total Protein (6.3-8.2) g/dL Albumin (3.5-5.0) g/dL Arterial Blood Potassium (3.4-4.5) mmol/L Arterial Blood Glucose (75-99) mg/dL Crossmatch 01/04/24 01/04/24 01/04/24 Range/Units 16:40 16:50 18:13 WBC 10.8 H (3.8-10.6) k/uL RBC 2.98 L (3.80-5.40) m/uL Hgb 8.9 L (11.4-16.0) gm/dL Hct 25.1 L (34.0-46.0) % Plt Count (150-450) k/uL Neutrophils # 9.4 H (1.3-7.7) k/uL Lymphocytes # (1.0-4.8) k/uL ABG pH (7.35-7.45) ABG pCO2 (35-45) mmHg ABG pO2 (83-108) mmHg ABG HCO3 (21-25) mmol/L ABG Total CO2 (19-24) mmol/L ABG O2 Saturation (94-97) % ABG Hematocrit (34.0-46.0) % ABG Potassium (3.4-4.5) mmol/L ABG Ionized Calcium (4.5-5.3) mg/dL ABG Glucose (75-99) mg/dL Hemoglobin (11.4-16.0) gm/dL Sodium (137-145) mmol/L Chloride (98-107) mmol/L Creatinine (0.52-1.04) mg/dL Glucose (74-99) mg/dL POC Glucose (mg/dL) 177 H 139 H (70-110) mg/dL AST (14-36) U/L Total Protein (6.3-8.2) g/dL Albumin (3.5-5.0) g/dL Arterial Blood Potassium (3.4-4.5) mmol/L Arterial Blood Glucose (75-99) mg/dL Crossmatch 01/04/24 01/04/24 01/04/24 Range/Units 19:03 19:48 19:55 WBC (3.8-10.6) k/uL RBC 2.80 L (3.80-5.40) m/uL Hgb 8.6 L (11.4-16.0) gm/dL Hct 23.7 L (34.0-46.0) % Plt Count (150-450) k/uL Neutrophils # 8.2 H (1.3-7.7) k/uL Lymphocytes # 0.8 L (1.0-4.8) k/uL ABG pH (7.35-7.45) ABG pCO2 (35-45) mmHg ABG pO2 (83-108) mmHg ABG HCO3 (21-25) mmol/L ABG Total CO2 (19-24) mmol/L ABG O2 Saturation (94-97) % ABG Hematocrit (34.0-46.0) % ABG Potassium (3.4-4.5) mmol/L ABG Ionized Calcium (4.5-5.3) mg/dL ABG Glucose (75-99) mg/dL Hemoglobin (11.4-16.0) gm/dL Sodium (137-145) mmol/L Chloride (98-107) mmol/L Creatinine (0.52-1.04) mg/dL Glucose (74-99) mg/dL POC Glucose (mg/dL) 142 H 156 H (70-110) mg/dL AST (14-36) U/L Total Protein (6.3-8.2) g/dL Albumin (3.5-5.0) g/dL Arterial Blood Potassium (3.4-4.5) mmol/L Arterial Blood Glucose (75-99) mg/dL Crossmatch 01/04/24 01/04/24 01/04/24 Range/Units 20:13 20:57 23:16 WBC (3.8-10.6) k/uL RBC (3.80-5.40) m/uL Hgb (11.4-16.0) gm/dL Hct (34.0-46.0) % Plt Count (150-450) k/uL Neutrophils # (1.3-7.7) k/uL Lymphocytes # (1.0-4.8) k/uL ABG pH (7.35-7.45) ABG pCO2 (35-45) mmHg ABG pO2 149 H (83-108) mmHg ABG HCO3 29 H (21-25) mmol/L ABG Total CO2 31 H (19-24) mmol/L ABG O2 Saturation 98.5 H (94-97) % ABG Hematocrit (34.0-46.0) % ABG Potassium (3.4-4.5) mmol/L ABG Ionized Calcium (4.5-5.3) mg/dL ABG Glucose (75-99) mg/dL Hemoglobin (11.4-16.0) gm/dL Sodium (137-145) mmol/L Chloride (98-107) mmol/L Creatinine (0.52-1.04) mg/dL Glucose (74-99) mg/dL POC Glucose (mg/dL) 130 H 144 H (70-110) mg/dL AST (14-36) U/L Total Protein (6.3-8.2) g/dL Albumin (3.5-5.0) g/dL Arterial Blood Potassium (3.4-4.5) mmol/L Arterial Blood Glucose (75-99) mg/dL Crossmatch 01/05/24 01/05/24 01/05/24 Range/Units 00:31 01:15 03:50 WBC (3.8-10.6) k/uL RBC (3.80-5.40) m/uL Hgb (11.4-16.0) gm/dL Hct (34.0-46.0) % Plt Count (150-450) k/uL Neutrophils # (1.3-7.7) k/uL Lymphocytes # (1.0-4.8) k/uL ABG pH (7.35-7.45) ABG pCO2 (35-45) mmHg ABG pO2 (83-108) mmHg ABG HCO3 (21-25) mmol/L ABG Total CO2 (19-24) mmol/L ABG O2 Saturation (94-97) % ABG Hematocrit (34.0-46.0) % ABG Potassium (3.4-4.5) mmol/L ABG Ionized Calcium (4.5-5.3) mg/dL ABG Glucose (75-99) mg/dL Hemoglobin (11.4-16.0) gm/dL Sodium (137-145) mmol/L Chloride (98-107) mmol/L Creatinine (0.52-1.04) mg/dL Glucose (74-99) mg/dL POC Glucose (mg/dL) 141 H 135 H 111 H (70-110) mg/dL AST (14-36) U/L Total Protein (6.3-8.2) g/dL Albumin (3.5-5.0) g/dL Arterial Blood Potassium (3.4-4.5) mmol/L Arterial Blood Glucose (75-99) mg/dL Crossmatch 01/05/24 01/05/24 01/05/24 Range/Units 05:00 05:00 05:01 WBC (3.8-10.6) k/uL RBC 2.90 L (3.80-5.40) m/uL Hgb 8.5 L (11.4-16.0) gm/dL Hct 24.9 L (34.0-46.0) % Plt Count 137 L (150-450) k/uL Neutrophils # (1.3-7.7) k/uL Lymphocytes # (1.0-4.8) k/uL ABG pH (7.35-7.45) ABG pCO2 (35-45) mmHg ABG pO2 (83-108) mmHg ABG HCO3 (21-25) mmol/L ABG Total CO2 (19-24) mmol/L ABG O2 Saturation (94-97) % ABG Hematocrit (34.0-46.0) % ABG Potassium (3.4-4.5) mmol/L ABG Ionized Calcium (4.5-5.3) mg/dL ABG Glucose (75-99) mg/dL Hemoglobin (11.4-16.0) gm/dL Sodium 136 L (137-145) mmol/L Chloride (98-107) mmol/L Creatinine 0.48 L (0.52-1.04) mg/dL Glucose 109 H (74-99) mg/dL POC Glucose (mg/dL) 119 H (70-110) mg/dL AST 39 H (14-36) U/L Total Protein 5.0 L (6.3-8.2) g/dL Albumin 3.0 L (3.5-5.0) g/dL Arterial Blood Potassium (3.4-4.5) mmol/L Arterial Blood Glucose (75-99) mg/dL Crossmatch 01/05/24 Range/Units 06:32 WBC (3.8-10.6) k/uL RBC (3.80-5.40) m/uL Hgb (11.4-16.0) gm/dL Hct (34.0-46.0) % Plt Count (150-450) k/uL Neutrophils # (1.3-7.7) k/uL Lymphocytes # (1.0-4.8) k/uL ABG pH (7.35-7.45) ABG pCO2 (35-45) mmHg ABG pO2 (83-108) mmHg ABG HCO3 (21-25) mmol/L ABG Total CO2 (19-24) mmol/L ABG O2 Saturation (94-97) % ABG Hematocrit (34.0-46.0) % ABG Potassium (3.4-4.5) mmol/L ABG Ionized Calcium (4.5-5.3) mg/dL ABG Glucose (75-99) mg/dL Hemoglobin (11.4-16.0) gm/dL Sodium (137-145) mmol/L Chloride (98-107) mmol/L Creatinine (0.52-1.04) mg/dL Glucose (74-99) mg/dL POC Glucose (mg/dL) 127 H (70-110) mg/dL AST (14-36) U/L Total Protein (6.3-8.2) g/dL Albumin (3.5-5.0) g/dL Arterial Blood Potassium (3.4-4.5) mmol/L Arterial Blood Glucose (75-99) mg/dL Crossmatch Microbiology - Last 24 Hours (Table) 01/04/24 13:58 Gram Stain - Preliminary Sputum
--- NOTE | 2024-01-05 11:06 | P.PN ---
Subjective Progress Note Date: 01/05/24 Principal diagnosis: Coronary artery disease. Pulmonary/critical care consult dated January 04, 2024. 53-year-old black female, who underwent a three-vessel bypass surgery today, o ff-pump, by Dr. Bunn. The patient also had a left atrial appendage ligation. The patient is being brought back to the intensive care unit, currently. The patient has a long history of medical problems including coronary disease, with previous stents in the LAD, and left circumflex coronary artery, essential hypertension, hyperlipidemia, diabetes mellitus, hypothyroidism, asthma, chronic back and neck pain, use of marijuana, and a prior history of tobacco use. In addition, the patient has a very strong family history of premature coronary disease. The patient apparently was a Religious, but did agree to receive blood transfusions, if necessary. Current labs, include a blood gas showing a pO2 of 139, pCO2 of 43, and a pH of 7.41. The blood gas, in the intensive care unit, has not been done as yet. Sodium 143, potassium 3.3, ionized calcium 4.8, glucose 159, lactic acid 1.6, hemoglobin 9. Glucose is 159. Chest x-ray shows properly placed endotracheal tube, in the mid trachea. Tubes and lines otherwise look okay. There are some postsurgical changes, particular in the left lower lobe, with some atelectasis, and a small effusion. Blood gases have not yet been done. The patient's ventilator settings include volume assist-control, rate 12, tidal volume 375, 100%, and 10 of PEEP. According to the nurse, the patient will be coming back on nitroglycerin at 5 mcg/min, insulin at 1 unit an hour, propofol at 40 mcg/kg/min, and lactated Ringer's at 50 cc an hour. Progress note dated January 05, 2024. This is a 53-year-old black female, status post three-vessel bypass grafting, postop day #1. The patient was extubated yesterday. Currently, the patient is on 2 L of oxygen. She is receiving amiodarone, at 0.5 mg/min. She is getting lactated Ringer's at 40 cc an hour. Her insulin drip is currently off. Clinically, she looks much improved, although she is a bit sleepy today. Chest x-ray revealed some postsurgical changes, and some mild basilar atelectasis. All in all, the patient has done very well. White count 9.5, hemoglobin 8.5, hematocrit 24.9, and platelet count was 137,000. Sodium 136, potassium 4.2, chlorides 107, CO2 23, BUN 10, creatinine 0.48. Glucose 153. Albumin is 3. X- ray as mentioned above. Objective - Vital Signs Vital signs: Vital Signs Temp 99.1 F 01/05/24 08:00 Pulse 80 01/05/24 10:30 Resp 24 01/05/24 10:30 BP 180/90 01/04/24 06:03 Pulse Ox 99 01/05/24 10:30 FiO2 40 01/04/24 20:00 Intake & Output 01/04/24 01/05/24 01/05/24 18:59 06:59 18:59 Intake Total 333.679 985.126 471.465 Output Total 955 1185 155 Balance -621.321 -199.874 316.465 Weight 68.9 kg Intake: IV 260 969 320 .9NS Pressure Bag 36 99 30 CO/CI 20 220 20 Lactated Ringers 1,000 ml 200 550 170 @ 20 mls/hr IV .Q24H [facility] Rx#:[id number] Magnesium Sulfate-D5w Pmx 100 100 1 gm In Dextrose/Water 1 100ml.bag @ 100 mls/hr IVPB ONCE ONE Rx#: [id number] Intake, IV Titration 73.679 16.126 151.465 Amount Clevidipine Butyrate 25 6.867 mg In Empty Bag 1 bag @ 1 MG/HR 2 mls/hr IV .Q24H [facility] Rx#:[id number] Dexmedetomidine/0.9% NaCl 8.188 (Pmx) 400 mcg In Empty Bag 1 bag @ Titrate IV . Q0M [facility] Rx#:[id number] Insulin Regular 100 unit 11.160 16.126 1.465 In Sodium Chloride 0.9% 100 ml @ Per Protocol IV .Q0M [facility] Rx#:[id number] Magnesium Sulfate-D5w Pmx 100 1 gm In Dextrose/Water 1 100ml.bag @ 100 mls/hr IVPB ONCE ONE Rx#: [id number] ceFAZolin 2 gm In Sodium 50 Chloride 0.9% 50 ml @ 100 mls/hr IVPB Q8H [facility] Rx#: [id number] propofoL 1,000 mg In 47.464 Empty Bag 1 bag @ Titrate IV .Q0M [facility] Rx#: [id number] Output: Chest Tube Drainage 210 750 70 Chest Tube Bilateral 100 220 10 Chest Tube Mediastinal 110 530 60 Urine 495 435 85 Estimated Blood Loss 250 Other: Voiding Method Indwelling Catheter Indwelling Catheter ABP, PAP, CO, CI - Last Documented Arterial Blood Pressure 108/49 Pulmonary Artery Pressure 17/6 Cardiac Output 5.6 Cardiac Index 3.5 - Exam No acute distress, oriented 3. Currently on 2 L of oxygen by nasal cannula. HEENT examination is grossly unremarkable. Mucous membranes are moist. No oral lesions. Neck supple. Full range of motion. No adenopathy thyromegaly or neck vein distention. Cardiovascular examination reveals regular rhythm rate. S1-S2 normal. No S3 or S4. No discernible murmur noted. Heart rate 80 bpm. Lungs reveal mostly clear breath sounds. Minimal rhonchi. No wheezes or crackles. Breath sounds are equal bilaterally. 2 L saturation is 99%. Abdomen soft bowel sounds are heard. No masses or tenderness. Extremities are intact. No cyanosis clubbing or edema. Skin is without rash or lesion. Neurologic examination is brief but nonfocal. - Labs CBC & Chem 7: 01/05/24 05:00 01/05/24 05:00 Labs: Abnormal Lab Results - Last 24 Hours (Table) 12/26/23 01/04/24 01/04/24 Range/Units 09:37 08:39 09:52 WBC (3.8-10.6) k/uL RBC (3.80-5.40) m/uL Hgb (11.4-16.0) gm/dL Hct (34.0-46.0) % Plt Count (150-450) k/uL Neutrophils # (1.3-7.7) k/uL Lymphocytes # (1.0-4.8) k/uL ABG pH 7.46 H (7.35-7.45) ABG pCO2 (35-45) mmHg ABG pO2 308 H 202 H (83-108) mmHg ABG HCO3 29 H (21-25) mmol/L ABG Total CO2 (19-24) mmol/L ABG O2 Saturation >99.4 H 99.2 H (94-97) % ABG Hematocrit 24 L 30 L (34.0-46.0) % ABG Potassium 2.4 L* 3.2 L (3.4-4.5) mmol/L ABG Ionized Calcium 4.2 L (4.5-5.3) mg/dL ABG Glucose 114 H 145 H (75-99) mg/dL Hemoglobin 7.9 L 9.9 L (11.4-16.0) gm/dL Sodium (137-145) mmol/L Chloride (98-107) mmol/L Creatinine (0.52-1.04) mg/dL Glucose (74-99) mg/dL POC Glucose (mg/dL) (70-110) mg/dL AST (14-36) U/L Total Protein (6.3-8.2) g/dL Albumin (3.5-5.0) g/dL Arterial Blood Potassium 2.4 L* 3.2 L (3.4-4.5) mmol/L Arterial Blood Glucose 114 H 145 H (75-99) mg/dL Crossmatch See Detail 01/04/24 01/04/24 01/04/24 Range/Units 10:55 11:38 12:43 WBC (3.8-10.6) k/uL RBC (3.80-5.40) m/uL Hgb (11.4-16.0) gm/dL Hct (34.0-46.0) % Plt Count (150-450) k/uL Neutrophils # (1.3-7.7) k/uL Lymphocytes # (1.0-4.8) k/uL ABG pH 7.46 H 7.56 H* (7.35-7.45) ABG pCO2 30 L (35-45) mmHg ABG pO2 231 H 209 H 139 H (83-108) mmHg ABG HCO3 28 H 27 H 27 H (21-25) mmol/L ABG Total CO2 (19-24) mmol/L ABG O2 Saturation 99.3 H 99.3 H 98.8 H (94-97) % ABG Hematocrit 30 L 49 H 28 L (34.0-46.0) % ABG Potassium 3.1 L 3.3 L (3.4-4.5) mmol/L ABG Ionized Calcium (4.5-5.3) mg/dL ABG Glucose 143 H 137 H 159 H (75-99) mg/dL Hemoglobin 9.9 L 16.1 H 9.0 L (11.4-16.0) gm/dL Sodium (137-145) mmol/L Chloride (98-107) mmol/L Creatinine (0.52-1.04) mg/dL Glucose (74-99) mg/dL POC Glucose (mg/dL) (70-110) mg/dL AST (14-36) U/L Total Protein (6.3-8.2) g/dL Albumin (3.5-5.0) g/dL Arterial Blood Potassium 3.1 L 3.3 L (3.4-4.5) mmol/L Arterial Blood Glucose 143 H 137 H 159 H (75-99) mg/dL Crossmatch 01/04/24 01/04/24 01/04/24 Range/Units 13:54 13:58 13:58 WBC 15.0 H (3.8-10.6) k/uL RBC 3.11 L (3.80-5.40) m/uL Hgb 9.0 L D (11.4-16.0) gm/dL Hct 26.8 L (34.0-46.0) % Plt Count (150-450) k/uL Neutrophils # 12.3 H (1.3-7.7) k/uL Lymphocytes # (1.0-4.8) k/uL ABG pH (7.35-7.45) ABG pCO2 (35-45) mmHg ABG pO2 (83-108) mmHg ABG HCO3 (21-25) mmol/L ABG Total CO2 (19-24) mmol/L ABG O2 Saturation (94-97) % ABG Hematocrit (34.0-46.0) % ABG Potassium (3.4-4.5) mmol/L ABG Ionized Calcium (4.5-5.3) mg/dL ABG Glucose (75-99) mg/dL Hemoglobin (11.4-16.0) gm/dL Sodium (137-145) mmol/L Chloride 108 H (98-107) mmol/L Creatinine 0.36 L (0.52-1.04) mg/dL Glucose 163 H (74-99) mg/dL POC Glucose (mg/dL) 132 H (70-110) mg/dL AST (14-36) U/L Total Protein 5.2 L (6.3-8.2) g/dL Albumin 3.3 L (3.5-5.0) g/dL Arterial Blood Potassium (3.4-4.5) mmol/L Arterial Blood Glucose (75-99) mg/dL Crossmatch 01/04/24 01/04/24 01/04/24 Range/Units 14:19 15:05 16:05 WBC (3.8-10.6) k/uL RBC (3.80-5.40) m/uL Hgb (11.4-16.0) gm/dL Hct (34.0-46.0) % Plt Count (150-450) k/uL Neutrophils # (1.3-7.7) k/uL Lymphocytes # (1.0-4.8) k/uL ABG pH 7.34 L (7.35-7.45) ABG pCO2 49 H (35-45) mmHg ABG pO2 362 H (83-108) mmHg ABG HCO3 27 H (21-25) mmol/L ABG Total CO2 28 H (19-24) mmol/L ABG O2 Saturation 99.5 H (94-97) % ABG Hematocrit (34.0-46.0) % ABG Potassium (3.4-4.5) mmol/L ABG Ionized Calcium (4.5-5.3) mg/dL ABG Glucose (75-99) mg/dL Hemoglobin (11.4-16.0) gm/dL Sodium (137-145) mmol/L Chloride (98-107) mmol/L Creatinine (0.52-1.04) mg/dL Glucose (74-99) mg/dL POC Glucose (mg/dL) 194 H 190 H (70-110) mg/dL AST (14-36) U/L Total Protein (6.3-8.2) g/dL Albumin (3.5-5.0) g/dL Arterial Blood Potassium (3.4-4.5) mmol/L Arterial Blood Glucose (75-99) mg/dL Crossmatch 01/04/24 01/04/24 01/04/24 Range/Units 16:40 16:50 18:13 WBC 10.8 H (3.8-10.6) k/uL RBC 2.98 L (3.80-5.40) m/uL Hgb 8.9 L (11.4-16.0) gm/dL Hct 25.1 L (34.0-46.0) % Plt Count (150-450) k/uL Neutrophils # 9.4 H (1.3-7.7) k/uL Lymphocytes # (1.0-4.8) k/uL ABG pH (7.35-7.45) ABG pCO2 (35-45) mmHg ABG pO2 (83-108) mmHg ABG HCO3 (21-25) mmol/L ABG Total CO2 (19-24) mmol/L ABG O2 Saturation (94-97) % ABG Hematocrit (34.0-46.0) % ABG Potassium (3.4-4.5) mmol/L ABG Ionized Calcium (4.5-5.3) mg/dL ABG Glucose (75-99) mg/dL Hemoglobin (11.4-16.0) gm/dL Sodium (137-145) mmol/L Chloride (98-107) mmol/L Creatinine (0.52-1.04) mg/dL Glucose (74-99) mg/dL POC Glucose (mg/dL) 177 H 139 H (70-110) mg/dL AST (14-36) U/L Total Protein (6.3-8.2) g/dL Albumin (3.5-5.0) g/dL Arterial Blood Potassium (3.4-4.5) mmol/L Arterial Blood Glucose (75-99) mg/dL Crossmatch 01/04/24 01/04/24 01/04/24 Range/Units 19:03 19:48 19:55 WBC (3.8-10.6) k/uL RBC 2.80 L (3.80-5.40) m/uL Hgb 8.6 L (11.4-16.0) gm/dL Hct 23.7 L (34.0-46.0) % Plt Count (150-450) k/uL Neutrophils # 8.2 H (1.3-7.7) k/uL Lymphocytes # 0.8 L (1.0-4.8) k/uL ABG pH (7.35-7.45) ABG pCO2 (35-45) mmHg ABG pO2 (83-108) mmHg ABG HCO3 (21-25) mmol/L ABG Total CO2 (19-24) mmol/L ABG O2 Saturation (94-97) % ABG Hematocrit (34.0-46.0) % ABG Potassium (3.4-4.5) mmol/L ABG Ionized Calcium (4.5-5.3) mg/dL ABG Glucose (75-99) mg/dL Hemoglobin (11.4-16.0) gm/dL Sodium (137-145) mmol/L Chloride (98-107) mmol/L Creatinine (0.52-1.04) mg/dL Glucose (74-99) mg/dL POC Glucose (mg/dL) 142 H 156 H (70-110) mg/dL AST (14-36) U/L Total Protein (6.3-8.2) g/dL Albumin (3.5-5.0) g/dL Arterial Blood Potassium (3.4-4.5) mmol/L Arterial Blood Glucose (75-99) mg/dL Crossmatch 01/04/24 01/04/24 01/04/24 Range/Units 20:13 20:57 23:16 WBC (3.8-10.6) k/uL RBC (3.80-5.40) m/uL Hgb (11.4-16.0) gm/dL Hct (34.0-46.0) % Plt Count (150-450) k/uL Neutrophils # (1.3-7.7) k/uL Lymphocytes # (1.0-4.8) k/uL ABG pH (7.35-7.45) ABG pCO2 (35-45) mmHg ABG pO2 149 H (83-108) mmHg ABG HCO3 29 H (21-25) mmol/L ABG Total CO2 31 H (19-24) mmol/L ABG O2 Saturation 98.5 H (94-97) % ABG Hematocrit (34.0-46.0) % ABG Potassium (3.4-4.5) mmol/L ABG Ionized Calcium (4.5-5.3) mg/dL ABG Glucose (75-99) mg/dL Hemoglobin (11.4-16.0) gm/dL Sodium (137-145) mmol/L Chloride (98-107) mmol/L Creatinine (0.52-1.04) mg/dL Glucose (74-99) mg/dL POC Glucose (mg/dL) 130 H 144 H (70-110) mg/dL AST (14-36) U/L Total Protein (6.3-8.2) g/dL Albumin (3.5-5.0) g/dL Arterial Blood Potassium (3.4-4.5) mmol/L Arterial Blood Glucose (75-99) mg/dL Crossmatch 01/05/24 01/05/24 01/05/24 Range/Units 00:31 01:15 03:50 WBC (3.8-10.6) k/uL RBC (3.80-5.40) m/uL Hgb (11.4-16.0) gm/dL Hct (34.0-46.0) % Plt Count (150-450) k/uL Neutrophils # (1.3-7.7) k/uL Lymphocytes # (1.0-4.8) k/uL ABG pH (7.35-7.45) ABG pCO2 (35-45) mmHg ABG pO2 (83-108) mmHg ABG HCO3 (21-25) mmol/L ABG Total CO2 (19-24) mmol/L ABG O2 Saturation (94-97) % ABG Hematocrit (34.0-46.0) % ABG Potassium (3.4-4.5) mmol/L ABG Ionized Calcium (4.5-5.3) mg/dL ABG Glucose (75-99) mg/dL Hemoglobin (11.4-16.0) gm/dL Sodium (137-145) mmol/L Chloride (98-107) mmol/L Creatinine (0.52-1.04) mg/dL Glucose (74-99) mg/dL POC Glucose (mg/dL) 141 H 135 H 111 H (70-110) mg/dL AST (14-36) U/L Total Protein (6.3-8.2) g/dL Albumin (3.5-5.0) g/dL Arterial Blood Potassium (3.4-4.5) mmol/L Arterial Blood Glucose (75-99) mg/dL Crossmatch 01/05/24 01/05/24 01/05/24 Range/Units 05:00 05:00 05:01 WBC (3.8-10.6) k/uL RBC 2.90 L (3.80-5.40) m/uL Hgb 8.5 L (11.4-16.0) gm/dL Hct 24.9 L (34.0-46.0) % Plt Count 137 L (150-450) k/uL Neutrophils # (1.3-7.7) k/uL Lymphocytes # (1.0-4.8) k/uL ABG pH (7.35-7.45) ABG pCO2 (35-45) mmHg ABG pO2 (83-108) mmHg ABG HCO3 (21-25) mmol/L ABG Total CO2 (19-24) mmol/L ABG O2 Saturation (94-97) % ABG Hematocrit (34.0-46.0) % ABG Potassium (3.4-4.5) mmol/L ABG Ionized Calcium (4.5-5.3) mg/dL ABG Glucose (75-99) mg/dL Hemoglobin (11.4-16.0) gm/dL Sodium 136 L (137-145) mmol/L Chloride (98-107) mmol/L Creatinine 0.48 L (0.52-1.04) mg/dL Glucose 109 H (74-99) mg/dL POC Glucose (mg/dL) 119 H (70-110) mg/dL AST 39 H (14-36) U/L Total Protein 5.0 L (6.3-8.2) g/dL Albumin 3.0 L (3.5-5.0) g/dL Arterial Blood Potassium (3.4-4.5) mmol/L Arterial Blood Glucose (75-99) mg/dL Crossmatch 01/05/24 01/05/24 01/05/24 Range/Units 06:32 08:24 09:08 WBC (3.8-10.6) k/uL RBC (3.80-5.40) m/uL Hgb (11.4-16.0) gm/dL Hct (34.0-46.0) % Plt Count (150-450) k/uL Neutrophils # (1.3-7.7) k/uL Lymphocytes # (1.0-4.8) k/uL ABG pH (7.35-7.45) ABG pCO2 (35-45) mmHg ABG pO2 (83-108) mmHg ABG HCO3 (21-25) mmol/L ABG Total CO2 (19-24) mmol/L ABG O2 Saturation (94-97) % ABG Hematocrit (34.0-46.0) % ABG Potassium (3.4-4.5) mmol/L ABG Ionized Calcium (4.5-5.3) mg/dL ABG Glucose (75-99) mg/dL Hemoglobin (11.4-16.0) gm/dL Sodium (137-145) mmol/L Chloride (98-107) mmol/L Creatinine (0.52-1.04) mg/dL Glucose (74-99) mg/dL POC Glucose (mg/dL) 127 H 115 H 122 H (70-110) mg/dL AST (14-36) U/L Total Protein (6.3-8.2) g/dL Albumin (3.5-5.0) g/dL Arterial Blood Potassium (3.4-4.5) mmol/L Arterial Blood Glucose (75-99) mg/dL Crossmatch 01/05/24 Range/Units 10:02 WBC (3.8-10.6) k/uL RBC (3.80-5.40) m/uL Hgb (11.4-16.0) gm/dL Hct (34.0-46.0) % Plt Count (150-450) k/uL Neutrophils # (1.3-7.7) k/uL Lymphocytes # (1.0-4.8) k/uL ABG pH (7.35-7.45) ABG pCO2 (35-45) mmHg ABG pO2 (83-108) mmHg ABG HCO3 (21-25) mmol/L ABG Total CO2 (19-24) mmol/L ABG O2 Saturation (94-97) % ABG Hematocrit (34.0-46.0) % ABG Potassium (3.4-4.5) mmol/L ABG Ionized Calcium (4.5-5.3) mg/dL ABG Glucose (75-99) mg/dL Hemoglobin (11.4-16.0) gm/dL Sodium (137-145) mmol/L Chloride (98-107) mmol/L Creatinine (0.52-1.04) mg/dL Glucose (74-99) mg/dL POC Glucose (mg/dL) 153 H (70-110) mg/dL AST (14-36) U/L Total Protein (6.3-8.2) g/dL Albumin (3.5-5.0) g/dL Arterial Blood Potassium (3.4-4.5) mmol/L Arterial Blood Glucose (75-99) mg/dL Crossmatch Microbiology - Last 24 Hours (Table) 01/04/24 13:58 Gram Stain - Preliminary Sputum Assessment and Plan Assessment: Postop day #1, status post off-pump three-vessel bypass grafting, and ligation of left atrial appendage. Routine postoperative ventilator management, S/P successful extubation, January 04, 2024. History of coronary disease, with previous stents, in the LAD, and circumflex coronary artery. Essential hypertension. Diabetes mellitus. Hyperlipidemia. Hypothyroidism. History of asthma. History of chronic back and neck pain. History of previous tobacco use. History of current marijuana use. Strong family history of premature cardiovascular disease. Plan: Plan dated January 04, 2024. The patient is just getting settled in. Eventually, I will be called with blood gases. Additional recommendations and suggestions are forthcoming. The patient according to the surgeon, tolerated the surgery just well. No blood transfusions were needed. The patient came back on nitroglycerin, insulin, and propofol. The patient is also receiving lactated Ringer's at 50 cc an hour. His chest x-ray has been evaluated. We will continue to follow the patient, make recommendations were appropriate. We will be hoping for quick extubation. Plan dated January 05, 2024. The patient was extubated yesterday. She had excellent weaning parameters, relatively lower rapid shallow breathing index, and a positive cuff leak. The patient has done well postextubation. She is currently on 2 L. She continues on amiodarone at 0.5 mg/min. She is getting lactated Ringer's at 40 cc an hour. Her insulin drip is currently off. Labs, x-rays, and medications are all reviewed. The patient's overall prognosis remains guarded. I encouraged the patient to deep breathe, cough, clear secretions, and use her incentive spi rometer, every hour. We will continue to follow the patient, and make recommendations where appropriate. Time with Patient: Greater than 30
[2024-01-05 11:12] LABS: Glucose,Whole Blood 219 mg/dL (70-110)
--- NOTE | 2024-01-05 11:17 | XR ---
EXAM: XR chest 1V portable CLINICAL INDICATION:Female, 53 years old with history of Post Operative Cardiac Surgery; [facility] COMPARISON: 01/04/2024 and before TECHNIQUE: Chest single view. FINDINGS: Lines/Tubes/Postop changes: Endotracheal tube has been removed. Nasogastric tube has been removed. Mediastinal drain and right chest tube again noted. Right IJ approach [place]-Jose catheter again noted with tip over the expected right main pulmonary artery. Left atrial appendage occlusion device. Multiple sternotomy wires and mediastinal clips suggesting pr ior CABG. Tube or line again coils and terminates over the left upper quadrant. Lungs/Pleura: Mild right basilar stranding suggestive of atelectasis. No sizable right pleural effusi on or pneumothorax demonstrated. On the left, there is slightly diminished pleural/parenchymal opacit y in the mid to lower chest. No pneumothorax. Pulmonary vascularity: Mild congestion unchanged. Heart/mediastinum: Cardiomediastinal silhouette is stable, heart appears mildly enlarged. Musculoskeletal: No acute osseous pathology. IMPRESSION: 1. Mild cardiomegaly and mild pulmonary vascular congestion, similar to previous. 2. Postoperative changes with multiple lines and tubes in place, as above. The ET tube and NG tube h ave been removed. 3. Mild right basilar subsegmental atelectasis. 4. Slightly decreased pleural/parenchymal opacity in the lower left chest, likely small pleural effu radha with atelectasis.
[2024-01-05 11:56] LABS: Glucose,Whole Blood 212 mg/dL (70-110)
[2024-01-05] MEDS: amLODIPine 2.5 MG TAB PO SCH (12:54)
[2024-01-05 12:58] LABS: Glucose,Whole Blood 136 mg/dL (70-110)
[2024-01-05 13:07] VITALS: BMI 32.8
[2024-01-05 14:20] LABS: Glucose,Whole Blood 134 mg/dL (70-110)
[2024-01-05 15:13] LABS: Glucose,Whole Blood 126 mg/dL (70-110)
[2024-01-05 16:06] LABS: Glucose,Whole Blood 123 mg/dL (70-110)
[2024-01-05 17:12] LABS: Glucose,Whole Blood 131 mg/dL (70-110)
[2024-01-05 18:14] LABS: Glucose,Whole Blood 114 mg/dL (70-110)
[2024-01-05 19:05] LABS: Glucose,Whole Blood 98 mg/dL (70-110)
[2024-01-05 19:55] LABS: Glucose,Whole Blood 144 mg/dL (70-110)
[2024-01-05] MEDS: ATORVASTATIN 80 MG TAB PO SCH (20:30)
[2024-01-05 20:57] LABS: Glucose,Whole Blood 139 mg/dL (70-110)
[2024-01-05 22:09] LABS: Glucose,Whole Blood 113 mg/dL (70-110)
[2024-01-05 23:55] LABS: Glucose,Whole Blood 114 mg/dL (70-110)
[2024-01-06 01:59] LABS: Glucose,Whole Blood 103 mg/dL (70-110)
[2024-01-06 04:12] LABS: Glucose,Whole Blood 121 mg/dL (70-110)
[2024-01-06 05:42] LABS: Basophils % (A) 0 %; Eosinophils # (A) 0.1 k/uL (0-0.7); Eosinophils % (A) 1 %; HCT 24.6 % (34.0-46.0); HGB 8.3 gm/dL (11.4-16.0); Lymphocytes # (A) 2.6 k/uL (1.0-4.8); Lymphocytes % (A) 22 %; MCH 29.7 pg (25.0-35.0); MCHC 33.6 g/dL (31.0-37.0); MCV 88.4 fL (80.0-100.0); Mean Platelet Volume 7.9; Monocytes # (A) 0.4 k/uL (0-1.0); Monocytes % (A) 4 %; Neutrophils # (A) 8.8 k/uL (1.3-7.7); Neutrophils % (A) 73 %; Platelet Count 163 k/uL (150-450); RBC 2.79 m/uL (3.80-5.40); RDW 13.6 % (11.5-15.5); WBC 12.1 k/uL (3.8-10.6)
[2024-01-06 05:47] LABS: Ionized Calcium 5.1 mg/dL (4.5-5.3)
[2024-01-06 05:55] LABS: ALT 18 U/L (4-34); AST 49 U/L (14-36); African American GFR (CKD) >90 (>60 ml/min/1.73 sqM); Albumin 2.8 g/dL (3.5-5.0); Alkaline Phosphatase 83 U/L (38-126); Anion Gap 7 mmol/L; Blood Urea Nitrogen 17 mg/dL (7-17); Calcium 8.9 mg/dL (8.4-10.2); Carbon Dioxide 22 mmol/L (22-30); Chloride 107 mmol/L (98-107); Glucose 94 mg/dL (74-99); Magnesium 1.9 mg/dL (1.6-2.3); Non-African American GFR(CKD) >90 (>60 ml/min/1.73 sqM); Potassium 4.3 mmol/L (3.5-5.1); Sodium 136 mmol/L (137-145); Total Bilirubin 0.8 mg/dL (0.2-1.3)
[2024-01-06 06:00] LABS: Glucose,Whole Blood 96 mg/dL (70-110)
--- NOTE | 2024-01-06 06:47 | XR ---
EXAMINATION TYPE: XR chest 1V portable DATE OF EXAM: 01/06/2024 5:44 AM CLINICAL INDICATION:Female, 53 years old with history of Post Operative Cardiac Surgery; [facility] COMPARISON: Chest radiographs from 01/05/2024 TECHNIQUE: XR chest 1V portable Frontal view of the chest. FINDINGS: Lungs/Pleura: There is no evidence of pleural effusion, focal consolidation, or pneumothorax. Pulmonary vascularity: Unremarkable. Heart/mediastinum: Cardiomediastinal silhouette is enlarged and stable. Atherosclerotic calcificatio ns are seen in the aorta. Left atrial appendage occlusion device is present. Musculoskeletal: No acute osseous pathology. Midline sternotomy wires are noted. Other findings: None Lines/Tubes: There is a [place]-Jose catheter sheath remains. Drainage tubes with tips projecting over the mediastinum. Right thoracotomy tube is present without evidence of pneumothorax. IMPRESSION: Similar postsurgical changes with mild pulmonary edema. .
[2024-01-06] MEDS: PANTOPRAZOLE 40 MG TABLET PO SCH (06:57)
[2024-01-06] MEDS: MAGNESIUM SULFATE-D5W PMX 1 GM in DEXTROSE/WATER 1 100ML.BAG IVPB ONE (06:57)
[2024-01-06] MEDS: FUROSEMIDE 10 MG/ML 4 ML VIAL IV STA (08:36)
[2024-01-06] MEDS: LACTULOSE 20 GM/30 ML CUP PO SCH (08:37)
--- NOTE | 2024-01-06 08:38 | P.PN ---
Subjective Progress Note Date: 01/06/24 PROGRESS NOTE The patient is a 53-year-old female with known history of CAD, followed by Dr. Osborn who underwent cardiac catheterization on December 04 and was found to have significant left main disease in addition to ostial LAD and proximal RCA disease. She underwent CABG yesterday, she is extubated sitting up in the chair, in sinus mechanism on no vasopressors. She has prior history of stenting of the LAD and left circumflex as well is a history of chronic tobacco use. Her echocardiogram showed a preserved biventricular size and systolic function. She received a SANDERSON to the LAD SVG to RCA and radial to the OM, off-pump. January 05: The patient is awake and alert, feels better, walked yesterday. She denies any anginal pain. She was mildly nauseated this morning. She continues to be in sinus mechanism. There is no significant drainage from her chest tube. Hemodynamically she is stable on no vasopressors. Medications: Amiodarone 400 mg twice a day, amlodipine 2.5 mg daily, aspirin, Lipitor 80 mg daily, Plavix 75 mg daily, metoprolol tartrate 25 mg twice a day. PHYSICAL EXAMINATION: Blood pressure 114/60 heart rate 90 LUNGS: Few crackles at the bases, HEART: Regular rate and rhythm, S1, S2. No S3. No systolic murmur, plus rub ABDOMEN: Soft, nontender, no organomegaly EXTREMETIES: No edema LAB: Hemoglobin 8.3, BUN 17, creatinine 0.59 IMPRESSION: 1. Status post CABG, stable, off-pump 2. History of hypertension 3. History of hyperlipidemia 4. Chronic tobacco use PLAN: 1. Increase physical activity 2. Continue incentive spirometry 3. Follow blood pressure and restart losartan 4. Depending on her progress further recommendations will be made Objective - Vital Signs Vital signs: Vital Signs Temp 98.1 F 01/06/24 08:00 Pulse 87 01/06/24 08:07 Resp 22 01/06/24 08:00 BP 114/62 01/06/24 08:00 Pulse Ox 100 01/06/24 08:00 FiO2 40 01/04/24 20:00 Intake & Output 01/05/24 01/06/24 01/06/24 18:59 06:59 18:59 Intake Total 426.205 4234.834 Output Total 465 515 Balance 395.279 567.834 Weight 68.9 kg 72.3 kg Intake: IV 688 531 .9NS Pressure Bag 78 51 CO/CI 20 Lactated Ringers 1,000 ml 490 480 @ 20 mls/hr IV .Q24H [facility] Rx#:[id number] Magnesium Sulfate-D5w Pmx 100 1 gm In Dextrose/Water 1 100ml.bag @ 100 mls/hr IVPB ONCE ONE Rx#: [id number] Intake, IV Titration 172.279 11.834 Amount Insulin Regular 100 unit 22.279 11.834 In Sodium Chloride 0.9% 100 ml @ Per Protocol IV .Q0M [facility] Rx#:[id number] Magnesium Sulfate-D5w Pmx 100 1 gm In Dextrose/Water 1 100ml.bag @ 100 mls/hr IVPB ONCE ONE Rx#: [id number] ceFAZolin 2 gm In Sodium 50 Chloride 0.9% 50 ml @ 100 mls/hr IVPB Q8H [facility] Rx#: [id number] Oral 540 Output: Chest Tube Drainage 190 140 Chest Tube Bilateral 50 70 Chest Tube Mediastinal 140 70 Urine 275 375 Other: Voiding Method Indwelling Catheter Indwelling Catheter ABP, PAP, CO, CI - Last Documented Arterial Blood Pressure 121/56 Pulmonary Artery Pressure 17/6 Cardiac Output 5.6 Cardiac Index 3.5 - Labs CBC & Chem 7: 01/06/24 05:20 01/06/24 05:20 Labs: Abnormal Lab Results - Last 24 Hours (Table) 01/05/24 01/05/24 01/05/24 Range/Units 09:08 10:02 11:06 WBC (3.8-10.6) k/uL RBC (3.80-5.40) m/uL Hgb (11.4-16.0) gm/dL Hct (34.0-46.0) % Neutrophils # (1.3-7.7) k/uL Sodium (137-145) mmol/L POC Glucose (mg/dL) 122 H 153 H 219 H (70-110) mg/dL AST (14-36) U/L Total Protein (6.3-8.2) g/dL Albumin (3.5-5.0) g/dL 01/05/24 01/05/24 01/05/24 Range/Units 11:53 12:56 14:18 WBC (3.8-10.6) k/uL RBC (3.80-5.40) m/uL Hgb (11.4-16.0) gm/dL Hct (34.0-46.0) % Neutrophils # (1.3-7.7) k/uL Sodium (137-145) mmol/L POC Glucose (mg/dL) 212 H 136 H 134 H (70-110) mg/dL AST (14-36) U/L Total Protein (6.3-8.2) g/dL Albumin (3.5-5.0) g/dL 01/05/24 01/05/24 01/05/24 Range/Units 15:11 16:01 17:11 WBC (3.8-10.6) k/uL RBC (3.80-5.40) m/uL Hgb (11.4-16.0) gm/dL Hct (34.0-46.0) % Neutrophils # (1.3-7.7) k/uL Sodium (137-145) mmol/L POC Glucose (mg/dL) 126 H 123 H 131 H (70-110) mg/dL AST (14-36) U/L Total Protein (6.3-8.2) g/dL Albumin (3.5-5.0) g/dL 01/05/24 01/05/24 01/05/24 Range/Units 18:12 19:54 20:55 WBC (3.8-10.6) k/uL RBC (3.80-5.40) m/uL Hgb (11.4-16.0) gm/dL Hct (34.0-46.0) % Neutrophils # (1.3-7.7) k/uL Sodium (137-145) mmol/L POC Glucose (mg/dL) 114 H 144 H 139 H (70-110) mg/dL AST (14-36) U/L Total Protein (6.3-8.2) g/dL Albumin (3.5-5.0) g/dL 01/05/24 01/05/24 01/06/24 Range/Units 22:06 23:53 04:10 WBC (3.8-10.6) k/uL RBC (3.80-5.40) m/uL Hgb (11.4-16.0) gm/dL Hct (34.0-46.0) % Neutrophils # (1.3-7.7) k/uL Sodium (137-145) mmol/L POC Glucose (mg/dL) 113 H 114 H 121 H (70-110) mg/dL AST (14-36) U/L Total Protein (6.3-8.2) g/dL Albumin (3.5-5.0) g/dL 01/06/24 01/06/24 Range/Units 05:20 05:20 WBC 12.1 H (3.8-10.6) k/uL RBC 2.79 L (3.80-5.40) m/uL Hgb 8.3 L (11.4-16.0) gm/dL Hct 24.6 L (34.0-46.0) % Neutrophils # 8.8 H (1.3-7.7) k/uL Sodium 136 L (137-145) mmol/L POC Glucose (mg/dL) (70-110) mg/dL AST 49 H (14-36) U/L Total Protein 5.0 L (6.3-8.2) g/dL Albumin 2.8 L (3.5-5.0) g/dL
--- NOTE | 2024-01-06 08:59 | P.PN ---
Subjective Progress Note Date: 01/06/24 Principal diagnosis: Coronary artery disease with previous myocardial infarction and prior stenting of the left anterior descending artery as well as left circumflex/OM, stable ang matt. History of hypertension, hyperlipidemia, diabetes, hypothyroid, bilateral internal carotid artery stenosis, asthma, chronic back and neck pain, remote history of pneumonia, daily marijuana use with recent cessation, previous tobacco dependence, remote history of syncope, and family history of premature coronary artery disease. Preoperative nasal swab positive for MSSA, treated POD #2 off pump coronary artery bypass grafting x 3. Left internal thoracic artery (in-situ) to left anterior descending coronary artery, saphenous vein from aorta to right coronary artery, radial artery from aorta to obtuse marginal artery, left atrial appendage ligation with 35mm AtriClip, endoscopic left radia l and left greater saphenous vein harvest, graft flow measurements using the Medi-Stim flow meter system, trans-esophageal echo Postoperative acute blood loss anemia and thrombocytopenia, expected given hemodilution The patient was seen and examined this morning sitting up in recliner in the intensive care unit in no acute distress. Remains in sinus rhythm and hemodynamically stable. States pain is better controlled, mostly hurts with deep breaths and coughing. Only complaint is of nightmare last night and nausea this am. Only able to pull 500 mL on her incentive spirometry. She has ambu lated around the hallway with assist. Chest x-ray, labs reviewed. Right internal jugular cordis, right radial arterial line, mediastinal/right/left pleural chest tubes all present. No other new concerns. Objective - Vital Signs Vital signs: Vital Signs Temp 98.1 F 01/06/24 08:00 Pulse 87 01/06/24 08:07 Resp 22 01/06/24 08:00 BP 114/62 01/06/24 08:00 Pulse Ox 100 01/06/24 08:00 FiO2 40 01/04/24 20:00 Intake & Output 01/05/24 01/06/24 01/06/24 18:59 06:59 18:59 Intake Total 163.129 1378.834 Output Total 465 515 Balance 395.279 567.834 Weight 68.9 kg 72.3 kg Intake: IV 688 531 .9NS Pressure Bag 78 51 CO/CI 20 Lactated Ringers 1,000 ml 490 480 @ 20 mls/hr IV .Q24H [facility] Rx#:[id number] Magnesium Sulfate-D5w Pmx 100 1 gm In Dextrose/Water 1 100ml.bag @ 100 mls/hr IVPB ONCE ONE Rx#: [id number] Intake, IV Titration 172.279 11.834 Amount Insulin Regular 100 unit 22.279 11.834 In Sodium Chloride 0.9% 100 ml @ Per Protocol IV .Q0M [facility] Rx#:[id number] Magnesium Sulfate-D5w Pmx 100 1 gm In Dextrose/Water 1 100ml.bag @ 100 mls/hr IVPB ONCE ONE Rx#: [id number] ceFAZolin 2 gm In Sodium 50 Chloride 0.9% 50 ml @ 100 mls/hr IVPB Q8H [facility] Rx#: [id number] Oral 540 Output: Chest Tube Drainage 190 140 Chest Tube Bilateral 50 70 Chest Tube Mediastinal 140 70 Urine 275 375 Other: Voiding Method Indwelling Catheter Indwelling Catheter ABP, PAP, CO, CI - Last Documented Arterial Blood Pressure 121/56 Pulmonary Artery Pressure 17/6 Cardiac Output 5.6 Cardiac Index 3.5 - Exam CONSTITUTIONAL: Appears comfortable, cooperative, no acute distress RESPIRATORY: Lungs sounds diminished bilaterally. Respirations even, nonlabored. Currently on room air with oxygen saturation 94%. Able to achieve 500 mL on incentive spirometry. Weak cough. CARDIOVASCULAR: S1, S2 present. Regular rate and rhythm, sinus rhythm on telemetry. Sternum stable. Palpable peripheral pulses bilaterally. No edema present. No calf pain or tenderness noted. Heart hugger in place with patient demonstrating appropriate use. Antiembolism stockings, SCDs present. GASTROINTESTINAL: Abdomen soft, nontender, nondistended. Hypoactive bowel sounds present 4 quadrants. Tolerating minimal clear liquid. Denies flatus GENITOURINARY: Galdamez present draining clear, yellow urine. Output overnight 30-40 mL per hour, 650 mL in the last 24 hours INTEGUMENTARY: Skin is warm and dry with evidence of good perfusion. Anterior chest incision well approximated and covered with dry intact dressing. Left rad ial artery as well as left lower extremity EVH site well approximated without redness or drainage. NEUROLOGIC: Cranial nerves II through XII intact MUSKULOSKELETAL: Able to move all extremities, strength equal bilaterally, stable gait PSYCHIATRIC: Alert and oriented to person place and time, appropriate affect, intact judgment and insight INVASIVE LINES AND TUBES: Mediastinal/left/right pleural chest tubes present and connected to wall suction, no air leaks present. Mediastinal tube with 30 mL serosanguineous drainage overnight, 200 mL in the last 24 hours. Left/right pleural chest tubes with 30 mL serosanguineous drainage overnight, 150 mL in the last 24 hours. Ventricular epicardial pacemaker wires present, grounded. Right internal jugular cordis, right radial arterial line present. Last CVP 9. - Allied health notes Allied health notes reviewed: nursing - Labs CBC & Chem 7: 01/06/24 05:20 01/06/24 05:20 Labs: Abnormal Lab Results - Last 24 Hours (Table) 01/05/24 01/05/24 01/05/24 Range/Units 09:08 10:02 11:06 WBC (3.8-10.6) k/uL RBC (3.80-5.40) m/uL Hgb (11.4-16.0) gm/dL Hct (34.0-46.0) % Neutrophils # (1.3-7.7) k/uL Sodium (137-145) mmol/L POC Glucose (mg/dL) 122 H 153 H 219 H (70-110) mg/dL AST (14-36) U/L Total Protein (6.3-8.2) g/dL Albumin (3.5-5.0) g/dL 01/05/24 01/05/24 01/05/24 Range/Units 11:53 12:56 14:18 WBC (3.8-10.6) k/uL RBC (3.80-5.40) m/uL Hgb (11.4-16.0) gm/dL Hct (34.0-46.0) % Neutrophils # (1.3-7.7) k/uL Sodium (137-145) mmol/L POC Glucose (mg/dL) 212 H 136 H 134 H (70-110) mg/dL AST (14-36) U/L Total Protein (6.3-8.2) g/dL Albumin (3.5-5.0) g/dL 01/05/24 01/05/24 01/05/24 Range/Units 15:11 16:01 17:11 WBC (3.8-10.6) k/uL RBC (3.80-5.40) m/uL Hgb (11.4-16.0) gm/dL Hct (34.0-46.0) % Neutrophils # (1.3-7.7) k/uL Sodium (137-145) mmol/L POC Glucose (mg/dL) 126 H 123 H 131 H (70-110) mg/dL AST (14-36) U/L Total Protein (6.3-8.2) g/dL Albumin (3.5-5.0) g/dL 01/05/24 01/05/24 01/05/24 Range/Units 18:12 19:54 20:55 WBC (3.8-10.6) k/uL RBC (3.80-5.40) m/uL Hgb (11.4-16.0) gm/dL Hct (34.0-46.0) % Neutrophils # (1.3-7.7) k/uL Sodium (137-145) mmol/L POC Glucose (mg/dL) 114 H 144 H 139 H (70-110) mg/dL AST (14-36) U/L Total Protein (6.3-8.2) g/dL Albumin (3.5-5.0) g/dL 01/05/24 01/05/24 01/06/24 Range/Units 22:06 23:53 04:10 WBC (3.8-10.6) k/uL RBC (3.80-5.40) m/uL Hgb (11.4-16.0) gm/dL Hct (34.0-46.0) % Neutrophils # (1.3-7.7) k/uL Sodium (137-145) mmol/L POC Glucose (mg/dL) 113 H 114 H 121 H (70-110) mg/dL AST (14-36) U/L Total Protein (6.3-8.2) g/dL Albumin (3.5-5.0) g/dL 01/06/24 01/06/24 Range/Units 05:20 05:20 WBC 12.1 H (3.8-10.6) k/uL RBC 2.79 L (3.80-5.40) m/uL Hgb 8.3 L (11.4-16.0) gm/dL Hct 24.6 L (34.0-46.0) % Neutrophils # 8.8 H (1.3-7.7) k/uL Sodium 136 L (137-145) mmol/L POC Glucose (mg/dL) (70-110) mg/dL AST 49 H (14-36) U/L Total Protein 5.0 L (6.3-8.2) g/dL Albumin 2.8 L (3.5-5.0) g/dL - Imaging and Cardiology Chest x-ray: report reviewed, image reviewed Assessment and Plan Assessment: Coronary artery disease with previous myocardial infarction and prior stenting of the left anterior descending artery as well as left circumflex/OM, stable angina, status post three-vessel off-pump CABG Hypertension Hyperlipidemia, treated, cholesterol 140, LDL 79 Diabetes, preoperative hemoglobin A1c 7.8% Hypothyroid, preoperative TSH < 0.015, free T4 3.19 Bilateral internal carotid artery stenosis, 50-69% Asthma Chronic back and neck pain Remote history of pneumonia Daily marijuana use with recent cessation Previous tobacco dependence, preoperative FEV1 100% of predicted, DLCO 119 Remote history of syncope Family history of premature coronary artery disease Preoperative nasal swab positive for MSSA, treated Postoperative acute blood loss anemia and thrombocytopenia, expected Plan: Continue to maximize medical therapy with aspirin, statin, Plavix, beta-xavi. Will increase beta-xavi therapy as tolerated. Will add small dose losartan for afterload reduction Continue oral calcium channel xavi for radial artery spasm prophylaxis with hold parameters Continue amiodarone for A-fib prophylaxis. Patient has no documented A-fib at this point Encourage incentive spirometry use 10 times every hour while awake. Bronchodilators per pulmonology Increase activity, ambulate as tolerated. PT/OT/cardiac rehab consulted Will monitor daily labs and x-rays. Electrolyte replacement per protocol. Will give IV lasix GI/DVT prophylaxis Pain control with current medication regimen Insulin management per internal medicine Discontinue cordis, arterial line Discontinue Galdamez catheter after diuresis from lasix, may bladder scan and straight cath for >300 mL residual Continue to monitor strict accurate intake and output Daily weights Chest tubes discontinued without incident Shower daily starting tomorrow Will place transfer orders for [address] [place] [address] cardiac stepdown unit, may transfer when bed available More recommendations to follow based on patient's progress
--- NOTE | 2024-01-06 09:45 | P.PN ---
Subjective Progress Note Date: 01/06/24 Principal diagnosis: Coronary artery disease. Pulmonary/critical care consult dated January 04, 2024. 53-year-old black female, who underwent a three-vessel bypass surgery today, o ff-pump, by Dr. Bunn. The patient also had a left atrial appendage ligation. The patient is being brought back to the intensive care unit, currently. The patient has a long history of medical problems including coronary disease, with previous stents in the LAD, and left circumflex coronary artery, essential hypertension, hyperlipidemia, diabetes mellitus, hypothyroidism, asthma, chronic back and neck pain, use of marijuana, and a prior history of tobacco use. In addition, the patient has a very strong family history of premature coronary disease. The patient apparently was a Hinduism, but did agree to receive blood transfusions, if necessary. Current labs, include a blood gas showing a pO2 of 139, pCO2 of 43, and a pH of 7.41. The blood gas, in the intensive care unit, has not been done as yet. Sodium 143, potassium 3.3, ionized calcium 4.8, glucose 159, lactic acid 1.6, hemoglobin 9. Glucose is 159. Chest x-ray shows properly placed endotracheal tube, in the mid trachea. Tubes and lines otherwise look okay. There are some postsurgical changes, particular in the left lower lobe, with some atelectasis, and a small effusion. Blood gases have not yet been done. The patient's ventilator settings include volume assist-control, rate 12, tidal volume 375, 100%, and 10 of PEEP. According to the nurse, the patient will be coming back on nitroglycerin at 5 mcg/min, insulin at 1 unit an hour, propofol at 40 mcg/kg/min, and lactated Ringer's at 50 cc an hour. Progress note dated January 05, 2024. This is a 53-year-old black female, status post three-vessel bypass grafting, postop day #1. The patient was extubated yesterday. Currently, the patient is on 2 L of oxygen. She is receiving amiodarone, at 0.5 mg/min. She is getting lactated Ringer's at 40 cc an hour. Her insulin drip is currently off. Clinically, she looks much improved, although she is a bit sleepy today. Chest x-ray revealed some postsurgical changes, and some mild basilar atelectasis. All in all, the patient has done very well. White count 9.5, hemoglobin 8.5, hematocrit 24.9, and platelet count was 137,000. Sodium 136, potassium 4.2, chlorides 107, CO2 23, BUN 10, creatinine 0.48. Glucose 153. Albumin is 3. X- ray as mentioned above. Progress note dated January 06, 2024. 53-year-old black female, postop day #2, status post three-vessel bypass grafting. The patient was extubated on January 03. The patient is doing well. Currently she is on room air. She is receiving lactated Ringer's at 30 cc an hour. She is doing only average on her incentive spirometer. Insulin drip has been turned off. The patient has no complaints today, other than for some discomfort at the surgical site. White count 12.1, hemoglobin 8.3, hematocrit 24.6, and platelet count 163,000. Sodium 136, potassium 4.3, chlorides 107, CO2 22, BUN 17, and creatinine 0.59. Albumin is 2.8. Glucose is 96. Chest x-ray shows postoperative changes. There is some minimal basilar atelectasis. Objective - Vital Signs Vital signs: Vital Signs Temp 98.1 F 01/06/24 08:00 Pulse 87 01/06/24 08:07 Resp 22 01/06/24 08:00 BP 114/62 01/06/24 08:00 Pulse Ox 100 01/06/24 08:00 FiO2 40 01/04/24 20:00 Intake & Output 01/05/24 01/06/24 01/06/24 18:59 06:59 18:59 Intake Total 476.519 0950.834 Output Total 465 515 Balance 395.279 567.834 Weight 68.9 kg 72.3 kg Intake: IV 688 531 .9NS Pressure Bag 78 51 CO/CI 20 Lactated Ringers 1,000 ml 490 480 @ 20 mls/hr IV .Q24H [facility] Rx#:[id number] Magnesium Sulfate-D5w Pmx 100 1 gm In Dextrose/Water 1 100ml.bag @ 100 mls/hr IVPB ONCE ONE Rx#: [id number] Intake, IV Titration 172.279 11.834 Amount Insulin Regular 100 unit 22.279 11.834 In Sodium Chloride 0.9% 100 ml @ Per Protocol IV .Q0M [facility] Rx#:[id number] Magnesium Sulfate-D5w Pmx 100 1 gm In Dextrose/Water 1 100ml.bag @ 100 mls/hr IVPB ONCE ONE Rx#: [id number] ceFAZolin 2 gm In Sodium 50 Chloride 0.9% 50 ml @ 100 mls/hr IVPB Q8H [facility] Rx#: [id number] Oral 540 Output: Chest Tube Drainage 190 140 Chest Tube Bilateral 50 70 Chest Tube Mediastinal 140 70 Urine 275 375 Other: Voiding Method Indwelling Catheter Indwelling Catheter ABP, PAP, CO, CI - Last Documented Arterial Blood Pressure 121/56 Pulmonary Artery Pressure 17/6 Cardiac Output 5.6 Cardiac Index 3.5 - Exam No acute distress, oriented 3. Currently on room air. HEENT examination is grossly unremarkable. Mucous membranes are moist. No oral lesions. Neck supple. Full range of motion. No adenopathy thyromegaly or neck vein distention. Cardiovascular examination reveals regular rhythm rate. S1-S2 normal. No S3 or S4. No discernible murmur noted. Heart rate 87 bpm. Lungs reveal mostly clear breath sounds. Minimal rhonchi. No wheezes or crackles. Breath sounds are equal bilaterally. Room air saturation is 100%. Abdomen soft with bowel sounds. No masses or tenderness. Extremities are intact. No cyanosis clubbing or edema. Skin is without rash or lesion. Neurologic examination is brief but nonfocal. - Labs CBC & Chem 7: 01/06/24 05:20 01/06/24 05:20 Labs: Abnormal Lab Results - Last 24 Hours (Table) 01/05/24 01/05/24 01/05/24 Range/Units 10:02 11:06 11:53 WBC (3.8-10.6) k/uL RBC (3.80-5.40) m/uL Hgb (11.4-16.0) gm/dL Hct (34.0-46.0) % Neutrophils # (1.3-7.7) k/uL Sodium (137-145) mmol/L POC Glucose (mg/dL) 153 H 219 H 212 H (70-110) mg/dL AST (14-36) U/L Total Protein (6.3-8.2) g/dL Albumin (3.5-5.0) g/dL 01/05/24 01/05/24 01/05/24 Range/Units 12:56 14:18 15:11 WBC (3.8-10.6) k/uL RBC (3.80-5.40) m/uL Hgb (11.4-16.0) gm/dL Hct (34.0-46.0) % Neutrophils # (1.3-7.7) k/uL Sodium (137-145) mmol/L POC Glucose (mg/dL) 136 H 134 H 126 H (70-110) mg/dL AST (14-36) U/L Total Protein (6.3-8.2) g/dL Albumin (3.5-5.0) g/dL 01/05/24 01/05/24 01/05/24 Range/Units 16:01 17:11 18:12 WBC (3.8-10.6) k/uL RBC (3.80-5.40) m/uL Hgb (11.4-16.0) gm/dL Hct (34.0-46.0) % Neutrophils # (1.3-7.7) k/uL Sodium (137-145) mmol/L POC Glucose (mg/dL) 123 H 131 H 114 H (70-110) mg/dL AST (14-36) U/L Total Protein (6.3-8.2) g/dL Albumin (3.5-5.0) g/dL 01/05/24 01/05/24 01/05/24 Range/Units 19:54 20:55 22:06 WBC (3.8-10.6) k/uL RBC (3.80-5.40) m/uL Hgb (11.4-16.0) gm/dL Hct (34.0-46.0) % Neutrophils # (1.3-7.7) k/uL Sodium (137-145) mmol/L POC Glucose (mg/dL) 144 H 139 H 113 H (70-110) mg/dL AST (14-36) U/L Total Protein (6.3-8.2) g/dL Albumin (3.5-5.0) g/dL 01/05/24 01/06/24 01/06/24 Range/Units 23:53 04:10 05:20 WBC 12.1 H (3.8-10.6) k/uL RBC 2.79 L (3.80-5.40) m/uL Hgb 8.3 L (11.4-16.0) gm/dL Hct 24.6 L (34.0-46.0) % Neutrophils # 8.8 H (1.3-7.7) k/uL Sodium (137-145) mmol/L POC Glucose (mg/dL) 114 H 121 H (70-110) mg/dL AST (14-36) U/L Total Protein (6.3-8.2) g/dL Albumin (3.5-5.0) g/dL 01/06/24 Range/Units 05:20 WBC (3.8-10.6) k/uL RBC (3.80-5.40) m/uL Hgb (11.4-16.0) gm/dL Hct (34.0-46.0) % Neutrophils # (1.3-7.7) k/uL Sodium 136 L (137-145) mmol/L POC Glucose (mg/dL) (70-110) mg/dL AST 49 H (14-36) U/L Total Protein 5.0 L (6.3-8.2) g/dL Albumin 2.8 L (3.5-5.0) g/dL Assessment and Plan Assessment: Postop day #2, status post off-pump three-vessel bypass grafting, and ligation of left atrial appendage. Routine postoperative ventilator management, S/P successful extubation, January 04, 2024. History of coronary disease, with previous stents, in the LAD, and circumflex coronary artery. Essential hypertension. Diabetes mellitus. Hyperlipidemia. Hypothyroidism. History of asthma. History of chronic back and neck pain. History of previous tobacco use. History of current marijuana use. Strong family history of premature cardiovascular disease. Plan: Plan dated January 04, 2024. The patient is just getting settled in. Eventually, I will be called with blood gases. Additional recommendations and suggestions are forthcoming. The patient according to the surgeon, tolerated the surgery just well. No blood transfusions were needed. The patient came back on nitroglycerin, insulin, and propofol. The patient is also receiving lactated Ringer's at 50 cc an hour. His chest x-ray has been evaluated. We will continue to follow the patient, make recommendations were appropriate. We will be hoping for quick extubation. Plan dated January 05, 2024. The patient was extubated yesterday. She had excellent weaning parameters, relatively lower rapid shallow breathing index, and a positive cuff leak. The patient has done well postextubation. She is currently on 2 L. She continues on amiodarone at 0.5 mg/min. She is getting lactated Ringer's at 40 cc an hour. Her insulin drip is currently off. Labs, x-rays, and medications are all reviewed. The patient's overall prognosis remains guarded. I encouraged the patient to deep breathe, cough, clear secretions, and use her incentive spirometer, every hour. We will continue to follow the patient, and make recommendations where appropriate. Plan dated January 06, 2024. The patient was successfully extubated on January 03. Currently, the patient is on room air. Labs, x-rays, and medications are reviewed. Chest x-ray only shows some postsurgical changes, and some mild basilar atelectasis. The patient overall had a good night last night, and is stable. She is doing only average on her incentive spirometer. The insulin drip has been turned off. The amiod arone drip has been turned off. The patient is normally on lactated Ringer's at 30 cc an hour. We encouraged her to deep breathe, cough, and clear secretions, and also use the incentive spirometer, every hour while awake. Prognosis is guarded. Time with Patient: Less than 30
[2024-01-06] MEDS: IPRATROPIUM-ALBUTEROL 3 ML NEB INHALATION PRN (10:07)
--- NOTE | 2024-01-06 10:52 | P.PN ---
Subjective Progress Note Date: 01/06/24 53-year-old female with a PMH of CAD status post multiple stents, COPD, type II DM, hypertension, hyperlipidemia, hypothyroidism who was recently admitted to the hospital for chest pain. She was discharged home on 12/03/2023 and returned to the emergency room on 12/04 evening with complaints of worsening epigastric pain. EKG at that time revealed sinus rhythm at [address] segment elevation in leads V1 and V2. Emergent cardiac catheterization revealed severe triple-vessel disease. She was discharged with plans for CABG to be scheduled in the outpatient setting. She underwent off pump CABG x [address] Massey on 01/03. EBL 250 cc. [facility] Physicians consulted for medical management of this patient. Patient was extubated on 01/03 at 8:24PM. 01/04 Patient was seen and examined. Currently on Amiodarone drip at 0.5 mg/min and Insulin drip at 1.5 unit/hr. She reports chest pain at the site of incision with deep inspiration. No BM or passing gas. She continues to have bilateral and mediastinal chest tubes along with riley catheter. CBC Hg 9.5 Hct 24.9 Plt 137. CMP Na 136, Cr 0.48, glu 109, AST 39, Alb 3. CXR shows some mild pulmonary vascular congestion. She is curently 99% on 2L NC. CT surgery note reviewed, plans to switch Amiodarone to PO, add PO CCB, DC Herrick. 01/05 Patient was seen and examined. Feeling much better today in terms of pain. Mediastinal and bilateral chest tubes discontinued but CT surgery. Amiodarone drip switched to PO. Insulin drip at 0 unit/hr, we will switch this to SQ insulin today. LR at 20 cc/hr. Receiving 1g Mag sulfate today. No BM or passing gas, given Lactulose. Plans to discontinue Riley catheter after Lasix IV. CBC WBC 12.1 Hg 8.3 Hct 24.6. CMP Na 136, AST 49, Alb 2.8. Mag 1.9. CXR shows some mild pulmonary vascular congestion, one dose of Lasix 40 mg IV given. She is currently 91% on RA. General: non toxic, no distress, appears at stated age Derm: warm, dry, chest wall dressing c/d/i Head: atraumatic, normocephalic, symmetric, right IJ Eyes: EOMI, no lid lag, anicteric sclera Mouth: no lip lesion, mucus membranes moist Cardiovascular: S1S2 reg, no murmur, bilateral + mediastinal chest tube Lungs: CTA bilateral, no rhonchi, no rales , no accessory muscle use Abdominal: soft, nontender to palpation, no guarding, no appreciable organome carlos Ext: no gross muscle atrophy, no edema, no contractures Neuro: no focal neuro deficits Psych: Alert, oriented, appropriate affect Based on my assessment of this patient, this patient meets a high complexity level of care. Patient has an acute diagnosis of POD 2 off pump CABG x 3 that poses a threat to life or bodily function. Acute blood loss anemia: Expected result of surgery. Ferrous sulfate 325 mg PO BID. Monitor daily CBC. Leukocytosis: Likely reactive. No signs of active infection. Monitor fever profile. Acute hypoxic respiratory failure: Improving. Extubated 01/03. Continue IS. Pulmonary vascular congestion: One dose of Lasix 40 mg IV today. Monitor electrolytes and renal function. History of CAD post CABG POD 2: ASA 325 mg PO QD. Plavix 75 mg PO QD. Metoprolol 25 mg PO BID. Lipitor 80 mg PO QHS. Chronic conditions: COPD, type II DM, hypertension, hyperlipidemia, hypothy roidism CODE STATUS: FULL CODE. DVT Prophylaxis: Heparin SQ. GI Prophylaxis: Protonix PO. Designated medical POA if patient is not able to make medical decisions for themselves: I have reviewed the following contaminated land consultant notes: CT surgery, Pulmonary, Cardiology. I have reviewed the results of the following tests: CBC, CMP, Mag. I have ordered the following tests: I have discussed the care of this patient with the following independent historian: I have independently interpreted the following test below: CXR I have discussed the management of this patient with the following physician: Objective - Vital Signs Vital signs: Vital Signs Temp 98.9 F 01/06/24 04:00 Pulse 91 01/06/24 07:00 Resp 61 H 01/06/24 07:00 BP 121/69 01/06/24 07:00 Pulse Ox 100 01/06/24 07:00 FiO2 40 01/04/24 20:00 Intake & Output 01/05/24 01/06/24 01/06/24 18:59 06:59 18:59 Intake Total 126.787 4039.834 Output Total 465 515 Balance 395.279 567.834 Weight 68.9 kg 72.3 kg Intake: IV 688 531 .9NS Pressure Bag 78 51 CO/CI 20 Lactated Ringers 1,000 ml 490 480 @ 20 mls/hr IV .Q24H [facility] Rx#:[id number] Magnesium Sulfate-D5w Pmx 100 1 gm In Dextrose/Water 1 100ml.bag @ 100 mls/hr IVPB ONCE ONE Rx#: [id number] Intake, IV Titration 172.279 11.834 Amount Insulin Regular 100 unit 22.279 11.834 In Sodium Chloride 0.9% 100 ml @ Per Protocol IV .Q0M [facility] Rx#:[id number] Magnesium Sulfate-D5w Pmx 100 1 gm In Dextrose/Water 1 100ml.bag @ 100 mls/hr IVPB ONCE ONE Rx#: [id number] ceFAZolin 2 gm In Sodium 50 Chloride 0.9% 50 ml @ 100 mls/hr IVPB Q8H [facility] Rx#: [id number] Oral 540 Output: Chest Tube Drainage 190 140 Chest Tube Bilateral 50 70 Chest Tube Mediastinal 140 70 Urine 275 375 Other: Voiding Method Indwelling Catheter Indwelling Catheter ABP, PAP, CO, CI - Last Documented Arterial Blood Pressure 121/56 Pulmonary Artery Pressure 17/6 Cardiac Output 5.6 Cardiac Index 3.5 - Labs CBC & Chem 7: 01/06/24 05:20 01/06/24 05:20 Labs: Abnormal Lab Results - Last 24 Hours (Table) 01/05/24 01/05/24 01/05/24 Range/Units 08:24 09:08 10:02 WBC (3.8-10.6) k/uL RBC (3.80-5.40) m/uL Hgb (11.4-16.0) gm/dL Hct (34.0-46.0) % Neutrophils # (1.3-7.7) k/uL Sodium (137-145) mmol/L POC Glucose (mg/dL) 115 H 122 H 153 H (70-110) mg/dL AST (14-36) U/L Total Protein (6.3-8.2) g/dL Albumin (3.5-5.0) g/dL 01/05/24 01/05/24 01/05/24 Range/Units 11:06 11:53 12:56 WBC (3.8-10.6) k/uL RBC (3.80-5.40) m/uL Hgb (11.4-16.0) gm/dL Hct (34.0-46.0) % Neutrophils # (1.3-7.7) k/uL Sodium (137-145) mmol/L POC Glucose (mg/dL) 219 H 212 H 136 H (70-110) mg/dL AST (14-36) U/L Total Protein (6.3-8.2) g/dL Albumin (3.5-5.0) g/dL 01/05/24 01/05/24 01/05/24 Range/Units 14:18 15:11 16:01 WBC (3.8-10.6) k/uL RBC (3.80-5.40) m/uL Hgb (11.4-16.0) gm/dL Hct (34.0-46.0) % Neutrophils # (1.3-7.7) k/uL Sodium (137-145) mmol/L POC Glucose (mg/dL) 134 H 126 H 123 H (70-110) mg/dL AST (14-36) U/L Total Protein (6.3-8.2) g/dL Albumin (3.5-5.0) g/dL 01/05/24 01/05/24 01/05/24 Range/Units 17:11 18:12 19:54 WBC (3.8-10.6) k/uL RBC (3.80-5.40) m/uL Hgb (11.4-16.0) gm/dL Hct (34.0-46.0) % Neutrophils # (1.3-7.7) k/uL Sodium (137-145) mmol/L POC Glucose (mg/dL) 131 H 114 H 144 H (70-110) mg/dL AST (14-36) U/L Total Protein (6.3-8.2) g/dL Albumin (3.5-5.0) g/dL 01/05/24 01/05/24 01/05/24 Range/Units 20:55 22:06 23:53 WBC (3.8-10.6) k/uL RBC (3.80-5.40) m/uL Hgb (11.4-16.0) gm/dL Hct (34.0-46.0) % Neutrophils # (1.3-7.7) k/uL Sodium (137-145) mmol/L POC Glucose (mg/dL) 139 H 113 H 114 H (70-110) mg/dL AST (14-36) U/L Total Protein (6.3-8.2) g/dL Albumin (3.5-5.0) g/dL 01/06/24 01/06/24 01/06/24 Range/Units 04:10 05:20 05:20 WBC 12.1 H (3.8-10.6) k/uL RBC 2.79 L (3.80-5.40) m/uL Hgb 8.3 L (11.4-16.0) gm/dL Hct 24.6 L (34.0-46.0) % Neutrophils # 8.8 H (1.3-7.7) k/uL Sodium 136 L (137-145) mmol/L POC Glucose (mg/dL) 121 H (70-110) mg/dL AST 49 H (14-36) U/L Total Protein 5.0 L (6.3-8.2) g/dL Albumin 2.8 L (3.5-5.0) g/dL
[2024-01-06 12:04] LABS: Glucose,Whole Blood 193 mg/dL (70-110)
[2024-01-06] MEDS: INSULIN ASPART (NovoLOG) 100 UNIT/ML VIAL SQ SCH (12:07)
[2024-01-06] MEDS: LOSARTAN 25 MG TAB PO SCH (14:45)
[2024-01-06] MEDS: MAGNESIUM HYDROXIDE 2,400 MG/30 ML CUP PO PRN (14:53)
[2024-01-06 16:52] LABS: Glucose,Whole Blood 238 mg/dL (70-110)
[2024-01-06 20:21] LABS: Glucose,Whole Blood 218 mg/dL (70-110)
[2024-01-06 23:54] LABS: Glucose,Whole Blood 235 mg/dL (70-110)
[2024-01-07 06:41] LABS: Glucose,Whole Blood 198 mg/dL (70-110)
[2024-01-07] MEDS: PANTOPRAZOLE 40 MG TABLET PO SCH (06:56)
--- NOTE | 2024-01-07 07:22 | XR ---
EXAMINATION TYPE: XR chest 2V DATE OF EXAM: 01/07/2024 6:26 AM CLINICAL INDICATION:Female, 53 years old with history of post cardiac surgery; [facility] COMPARISON: Chest radiograph from one day prior. TECHNIQUE: XR chest 2V Frontal and lateral views of the chest. FINDINGS/IMPRESSION: Removal of swan scans catheter sheath and mediastinal and thoracotomy tube. There remains cardiomegal y with pulmonary vascular congestion and small bilateral pleural effusions suggested.
--- NOTE | 2024-01-07 07:48 | P.PN ---
Subjective Progress Note Date: 01/07/24 Principal diagnosis: Status post CABG The patient is a 53-year-old -[place] female patient with diabetes and hypertension and dyslipidemia who was diagnosed recently with severe triple- vessel coronary artery disease. She underwent CABG x 3 with SANDERSON to LAD andSVG to RCA and radial artery to OM. January 07, 2024 The patient was seen and evaluated this morning. Overall she is stable and she is asymptomatic. She has been maintaining normal sinus mechanism. She is on dual antiplatelet therapy along with high intensity statin. The chest x-ray was reviewed this morning. Blood work still pending. The hemoglobin from yesterday was 8.3. She is on maximized medical treatment. Urine output has been stable. Overall she is doing well from the cardiovascular standpoint of view. The examination revealed regular rhythm with a distant heart sounds and diminished breathing sounds bilaterally. Assessment Coronary artery disease as described above and status post CABG Multiple comorbid conditions including diabetes and hypertension and dyslipidemia Plan Continue the current medical regimen including dual antiplatelet along with high intensity statin Continue monitor the kidney function electrolytes Follow-up with the patient Objective - Vital Signs Vital signs: Vital Signs Temp 98.7 F 01/07/24 04:00 Pulse 90 01/07/24 04:00 Resp 16 01/07/24 04:00 BP 119/67 01/07/24 04:00 Pulse Ox 97 01/07/24 04:00 FiO2 40 01/04/24 20:00 Intake & Output 01/06/24 01/07/24 01/07/24 18:59 06:59 18:59 Intake Total 89 500 Output Total 1060 100 Balance -971 400 Weight 71.5 kg Intake: IV 89 .9NS Pressure Bag 9 Lactated Ringers 1,000 ml 80 @ 20 mls/hr IV .Q24H [facility] Rx#:[id number] Oral 500 Output: Urine 1060 100 Other: Voiding Method Toilet Toilet Bedside Commode # Voids 1 1 # Bowel Movements 1 1 ABP, PAP, CO, CI - Last Documented Arterial Blood Pressure 121/56 Pulmonary Artery Pressure 17/6 Cardiac Output 5.6 Cardiac Index 3.5 - Labs CBC & Chem 7: 01/06/24 05:20 01/06/24 05:20 Labs: Abnormal Lab Results - Last 24 Hours (Table) 01/06/24 01/06/24 01/06/24 Range/Units 12:02 16:51 20:19 POC Glucose (mg/dL) 193 H 238 H 218 H (70-110) mg/dL 01/06/24 01/07/24 Range/Units 23:52 06:39 POC Glucose (mg/dL) 235 H 198 H (70-110) mg/dL Microbiology - Last 24 Hours (Table) 01/04/24 13:58 Gram Stain - Final Sputum Sputum Culture - Final
[2024-01-07 08:31] LABS: Basophils % (A) 0 %; Eosinophils # (A) 0.1 k/uL (0-0.7); Eosinophils % (A) 1 %; HCT 23.6 % (34.0-46.0); HGB 7.8 gm/dL (11.4-16.0); Lymphocytes # (A) 2.2 k/uL (1.0-4.8); Lymphocytes % (A) 20 %; MCHC 33.1 g/dL (31.0-37.0); MCV 87.7 fL (80.0-100.0); Mean Platelet Volume 8.2; Monocytes # (A) 0.4 k/uL (0-1.0); Monocytes % (A) 4 %; Neutrophils # (A) 8.4 k/uL (1.3-7.7); Neutrophils % (A) 75 %; Platelet Count 194 k/uL (150-450); RBC 2.69 m/uL (3.80-5.40); RDW 13.6 % (11.5-15.5); WBC 11.3 k/uL (3.8-10.6)
--- NOTE | 2024-01-07 08:31 | P.PN ---
Subjective Progress Note Date: 01/07/24 Principal diagnosis: Coronary artery disease with previous myocardial infarction and prior stenting of the left anterior descending artery as well as left circumflex/OM, stable ang matt. History of hypertension, hyperlipidemia, diabetes, hypothyroid, bilateral internal carotid artery stenosis, asthma, chronic back and neck pain, remote history of pneumonia, daily marijuana use with recent cessation, previous tobacco dependence, remote history of syncope, and family history of premature coronary artery disease. Preoperative nasal swab positive for MSSA, treated POD #3 off pump coronary artery bypass grafting x 3. Left internal thoracic artery (in-situ) to left anterior descending coronary artery, saphenous vein from aorta to right coronary artery, radial artery from aorta to obtuse marginal artery, left atrial appendage ligation with 35mm AtriClip, endoscopic left radia l and left greater saphenous vein harvest, graft flow measurements using the Medi-Stim flow meter system, trans-esophageal echo Postoperative acute blood loss anemia and thrombocytopenia, expected given hemodilution The patient was seen and examined with Dr. Bunn this morning sitting up in recliner in the intensive care unit in no acute distress. Remains in sinus rhythm and hemodynamically stable. States pain is better controlled, mostly hurts with deep breaths and coughing. Only able to pull 500 mL on her incentive spirometry. She has ambulated around the hallway with assist. Chest x-ray, labs reviewed. All lines and tubes discontinued yesterday except epicardial pacemaker wires which will be discontinued today. First postoperative shower today. Transfer orders were placed yesterday for 3 S. cardiac stepdown unit, no beds available. Anticipate discharge to home with home care tomorrow. No other new concerns. Objective - Vital Signs Vital signs: Vital Signs Temp 98 F 01/07/24 08:00 Pulse 95 01/07/24 08:12 Resp 16 01/07/24 08:00 BP 112/68 01/07/24 08:00 Pulse Ox 95 01/07/24 08:04 FiO2 40 01/04/24 20:00 Intake & Output 01/06/24 01/07/24 01/07/24 18:59 06:59 18:59 Intake Total 89 500 Output Total 1060 100 Balance -971 400 Weight 71.5 kg Intake: IV 89 .9NS Pressure Bag 9 Lactated Ringers 1,000 ml 80 @ 20 mls/hr IV .Q24H [facility] Rx#:[id number] Oral 500 Output: Urine 1060 100 Other: Voiding Method Toilet Toilet Bedside Commode # Voids 1 1 # Bowel Movements 1 1 ABP, PAP, CO, CI - Last Documented Arterial Blood Pressure 121/56 Pulmonary Artery Pressure 17/6 Cardiac Output 5.6 Cardiac Index 3.5 - Exam CONSTITUTIONAL: Appears comfortable, cooperative, no acute distress RESPIRATORY: Lungs sounds diminished bilaterally. Respirations even, nonlabored. Currently on room air with oxygen saturation 95%. Able to achieve 500 mL on incentive spirometry. Weak cough. CARDIOVASCULAR: S1, S2 present. Regular rate and rhythm, sinus rhythm on telemetry. Sternum stable. Palpable peripheral pulses bilaterally. No edema present. No calf pain or tenderness noted. Heart hugger in place with patient demonstrating appropriate use. Antiembolism stockings, SCDs present. GASTROINTESTINAL: Abdomen soft, nontender, nondistended. Active bowel sounds present 4 quadrants. Tolerating diet. Positive bowel movement yesterday GENITOURINARY: Galdamez discontinued yesterday, continues to void clear, yellow urine. Output 1160 mL in the last 24 hours INTEGUMENTARY: Skin is warm and dry with evidence of good perfusion. Anterior chest incision well approximated and covered with dry intact dressing. Left radial artery as well as left lower extremity EVH site well approximated without redness or drainage. NEUROLOGIC: Cranial nerves II through XII intact MUSKULOSKELETAL: Able to move all extremities, strength equal bilaterally, stable gait PSYCHIATRIC: Alert and oriented to person place and time, appropriate affect, intact judgment and insight INVASIVE LINES AND TUBES: Ventricular epicardial pacemaker wires present, grounded - Allied health notes Allied health notes reviewed: nursing - Labs CBC & Chem 7: 01/06/24 05:20 01/06/24 05:20 Labs: Abnormal Lab Results - Last 24 Hours (Table) 01/06/24 01/06/24 01/06/24 Range/Units 12:02 16:51 20:19 POC Glucose (mg/dL) 193 H 238 H 218 H (70-110) mg/dL 01/06/24 01/07/24 Range/Units 23:52 06:39 POC Glucose (mg/dL) 235 H 198 H (70-110) mg/dL Microbiology - Last 24 Hours (Table) 01/04/24 13:58 Gram Stain - Final Sputum Sputum Culture - Final - Imaging and Cardiology Chest x-ray: report reviewed, image reviewed Assessment and Plan Assessment: Coronary artery disease with previous myocardial infarction and prior stenting of the left anterior descending artery as well as left circumflex/OM, stable angina, status post three-vessel off-pump CABG Hypertension Hyperlipidemia, treated, cholesterol 140, LDL 79 Diabetes, preoperative hemoglobin A1c 7.8% Hypothyroid, preoperative TSH < 0.015, free T4 3.19 Bilateral internal carotid artery stenosis, 50-69% Asthma Chronic back and neck pain Remote history of pneumonia Daily marijuana use with recent cessation Previous tobacco dependence, preoperative FEV1 100% of predicted, DLCO 119 Remote history of syncope Family history of premature coronary artery disease Preoperative nasal swab positive for MSSA, treated Postoperative acute blood loss anemia and thrombocytopenia, expected Plan: Continue to maximize medical therapy with aspirin, statin, Plavix, beta-xavi. Will increase beta-xavi therapy as tolerated. Continue losartan for afterload reduction Continue oral calcium channel xavi for radial artery spasm prophylaxis with hold parameters Continue amiodarone for A-fib prophylaxis. Patient has no documented A-fib at this point Encourage incentive spirometry use 10 times every hour while awake. Br onchodilators per pulmonology Increase activity, ambulate as tolerated. PT/OT/cardiac rehab following Will monitor daily labs and x-rays. Electrolyte replacement per protocol. Will give IV lasix GI/DVT prophylaxis Pain control with current medication regimen Insulin management per internal medicine Continue to monitor strict accurate intake and output Daily weights Shower daily starting today Transfer orders placed yesterday for 3 [facility] cardiac stepdown unit, may transfer when bed available Discharge planning in progress, anticipate discharge to home with home care in the next 24 hours More recommendations to follow based on patient's progress
[2024-01-07 08:50] LABS: ALT 20 U/L (4-34); AST 37 U/L (14-36); African American GFR (CKD) >90 (>60 ml/min/1.73 sqM); Albumin 2.9 g/dL (3.5-5.0); Alkaline Phosphatase 107 U/L (38-126); Anion Gap 8 mmol/L; Blood Urea Nitrogen 20 mg/dL (7-17); Calcium 8.8 mg/dL (8.4-10.2); Carbon Dioxide 25 mmol/L (22-30); Chloride 102 mmol/L (98-107); Glucose 235 mg/dL (74-99); Magnesium 2.1 mg/dL (1.6-2.3); Non-African American GFR(CKD) >90 (>60 ml/min/1.73 sqM); Potassium 4.3 mmol/L (3.5-5.1); Sodium 135 mmol/L (137-145); Total Bilirubin 0.6 mg/dL (0.2-1.3); Total Protein 5.2 g/dL (6.3-8.2)
[2024-01-07] MEDS: ACETAMINOPHEN TAB 500 MG TAB PO PRN (11:11)
[2024-01-07] MEDS: FUROSEMIDE 10 MG/ML 4 ML VIAL IV STA (11:11)
[2024-01-07] MEDS ORDERED: SENNOSIDES-DOCUSATE SODIUM 1 EACH TAB PO PRN (11:32)
[2024-01-07 11:52] LABS: Glucose,Whole Blood 206 mg/dL (70-110)
[2024-01-07] MEDS: INSULIN ASPART (NovoLOG) 100 UNIT/ML VIAL SQ SCH (12:04)
--- NOTE | 2024-01-07 12:49 | P.PN ---
Subjective Progress Note Date: 01/07/24 53-year-old black female, who underwent a three-vessel bypass surgery today, off-pump, by Dr. Bunn. The patient also had a left atrial appendage ligation. The patient is being brought back to the intensive care unit, currently. The patient has a long history of medical problems including coronary disease, with previous stents in the LAD, and left circumflex coronary artery, essential hypertension, hyperlipidemia, diabetes mellitus, hypothyroidism, asthma, chronic back and neck pain, use of marijuana, and a prior history of tobacco use. In addition, the patient has a very strong family history of premature coronary disease. The patient apparently was a [employer], but did agree to re ceive blood transfusions, if necessary. Current labs, include a blood gas showing a pO2 of 139, pCO2 of 43, and a pH of 7.41. The blood gas, in the intensive care unit, has not been done as yet. Sodium 143, potassium 3.3, ionized calcium 4.8, glucose 159, lactic acid 1.6, hemoglobin 9. Glucose is 159. Chest x-ray shows properly placed endotracheal tube, in the mid trachea. Tubes and lines otherwise look okay. There are some postsurgical changes, particular in the left lower lobe, with some atelectasis, and a small effusion. Blood gases have not yet been done. The patient's ventilator settings include volume assist-control, rate 12, tidal volume 375, 100%, and 10 of PEEP. According to the nurse, the patient will be coming back on nitroglycerin at 5 mcg/min, insulin at 1 unit an hour, propofol at 40 mcg/kg/min, and lactated Ringer's at 50 cc an hour. Progress note dated January 05, 2024. This is a 53-year-old black female, status post three-vessel bypass grafting, postop day #1. The patient was extubated yesterday. Currently, the patient is on 2 L of oxygen. She is receiving amiodarone, at 0.5 mg/min. She is getting lactated Ringer's at 40 cc an hour. Her insulin drip is currently off. Clinically, she looks much improved, although she is a bit sleepy today. Chest x-ray revealed some postsurgical changes, and some mild basilar atelectasis. All in all, the patient has done very well. White count 9.5, hemoglobin 8.5, hematocrit 24.9, and platelet count was 137,000. Sodium 136, potassium 4.2, chlorides 107, CO2 23, BUN 10, creatinine 0.48. Glucose 153. Albumin is 3. X- ray as mentioned above. Progress note dated January 06, 2024. 53-year-old black female, postop day #2, status post three-vessel bypass grafting. The patient was extubated on January 03. The patient is doing well. Currently she is on room air. She is receiving lactated Ringer's at 30 cc an hour. She is doing only average on her incentive spirometer. Insulin drip has been turned off. The patient has no complaints today, other than for some discomfort at the surgical site. White count 12.1, hemoglobin 8.3, hematocrit 24.6, and platelet count 163,000. Sodium 136, potassium 4.3, chlorides 107, CO2 22, BUN 17, and creatinine 0.59. Albumin is 2.8. Glucose is 96. Chest x-ray shows postoperative changes. There is some minimal basilar atelectasis. On today's evaluation of 01/07/2024, the patient is being seen for a follow-up. The patient is calm and comfortable and she is sitting up in the chair. She is on room air oxygen. She is using the incentive spirometer and the patient is pulling approximately 500. A chest x-ray was done and showed cardiomegaly. Some postsurgical atelectatic changes in lung bases and small effusion. She is ambulating. All of the chest is able to move. The patient continues to have an epicardial pacemaker wires in place. No complaints. No altered mentation. No chest pain. No other significant events overnight. Blood work from today shows a WBC count 11.3 with a hemoglobin 7.8 and a platelet count of 194. BUN is at 20 with a creatinine of 0.6 and a sodium levels at 135. She is on oral amiodarone 400 mg p.o. twice a day. She is on aspirin. She is also on metoprolol 25 mg p.o. twice a day. She is on NovoLog 2 units with meals and Scale coverage. She is ambulating. She is also on high-dose statins. Norvasc is at 2.5 mg p.o. twice a day. Most recent BP is under adequate control and the patient's pulse ox 95% on room air oxygen. The patient is currently postop day #3 and she underwent off-pump three-vessel bypass surgery. Objective - Vital Signs Vital signs: Vital Signs Temp 98 F 01/07/24 08:00 Pulse 95 01/07/24 08:12 Resp 16 01/07/24 08:00 BP 112/68 01/07/24 08:00 Pulse Ox 95 01/07/24 08:04 FiO2 40 01/04/24 20:00 Intake & Output 01/06/24 01/07/24 01/07/24 18:59 06:59 18:59 Intake Total 89 500 Output Total 1060 100 Balance -971 400 Weight 71.5 kg Intake: IV 89 .9NS Pressure Bag 9 Lactated Ringers 1,000 ml 80 @ 20 mls/hr IV .Q24H [facility] Rx#:[id number] Oral 500 Output: Urine 1060 100 Other: Voiding Method Toilet Toilet Bedside Commode # Voids 1 1 # Bowel Movements 1 1 ABP, PAP, CO, CI - Last Documented Arterial Blood Pressure 121/56 Pulmonary Artery Pressure 17/6 Cardiac Output 5.6 Cardiac Index 3.5 - Exam CONSTITUTIONAL: Appears comfortable, cooperative, no acute distress RESPIRATORY: Lungs sounds diminished bilaterally. Respirations even, nonlabored. Currently on room air with oxygen saturation 95%. Able to achieve 500 mL on incentive spirometry. Weak cough. CARDIOVASCULAR: S1, S2 present. Regular rate and rhythm, sinus rhythm on telemetry. Sternum stable. Palpable peripheral pulses bilaterally. No edema present. No calf pain or tenderness noted. Heart hugger in place with patient demonstrating appropriate use. Antiembolism stockings, SCDs present. GASTROINTESTINAL: Abdomen soft, nontender, nondistended. Active bowel sounds present 4 quadrants. Tolerating diet. Positive bowel movement yesterday GENITOURINARY: Galdamez discontinued yesterday, continues to void clear, yellow urine. Output 1160 mL in the last 24 hours INTEGUMENTARY: Skin is warm and dry with evidence of good perfusion. Anterior chest incision well approximated and covered with dry intact dressing. Left radial artery as well as left lower extremity EVH site well approximated without redness or drainage. NEUROLOGIC: Cranial nerves II through XII intact MUSKULOSKELETAL: Able to move all extremities, strength equal bilaterally, stab le gait PSYCHIATRIC: Alert and oriented to person place and time, appropriate affect, intact judgment and insight INVASIVE LINES AND TUBES: Ventricular epicardial pacemaker wires present, grounded - Labs CBC & Chem 7: 01/07/24 08:01 01/07/24 08:01 Labs: Abnormal Lab Results - Last 24 Hours (Table) 01/06/24 01/06/24 01/06/24 Range/Units 12:02 16:51 20:19 WBC (3.8-10.6) k/uL RBC (3.80-5.40) m/uL Hgb (11.4-16.0) gm/dL Hct (34.0-46.0) % Neutrophils # (1.3-7.7) k/uL POC Glucose (mg/dL) 193 H 238 H 218 H (70-110) mg/dL 01/06/24 01/07/24 01/07/24 Range/Units 23:52 06:39 08:01 WBC 11.3 H (3.8-10.6) k/uL RBC 2.69 L (3.80-5.40) m/uL Hgb 7.8 L (11.4-16.0) gm/dL Hct 23.6 L (34.0-46.0) % Neutrophils # 8.4 H (1.3-7.7) k/uL POC Glucose (mg/dL) 235 H 198 H (70-110) mg/dL Microbiology - Last 24 Hours (Table) 01/04/24 13:58 Gram Stain - Final Sputum Sputum Culture - Final Assessment and Plan Plan: Postop day #3, status post off-pump three-vessel bypass grafting, and ligation of left atrial appendage. Patient is recovering well. The patient is h emodynamically stable. No chest pain. Surgical scar is dry clean and intact and patient continues to use incentive spirometer. She is ambulating. Routine postoperative ventilator management, S/P successful extubation, January 04, 2024. All of the chest tube removed and the chest x-ray from today shows some post surgical atelectatic change in lung base bilaterally, expected outcome of surgery. Obesity with a BMI of 34 History of coronary disease, with previous stents, in the LAD, and circumflex coronary artery. Essential hypertension. Diabetes mellitus. Hyperlipidemia. Hypothyroidism. History of asthma. History of chronic back and neck pain. History of previous tobacco use. History of current marijuana use. Strong family history of premature cardiovascular disease. Plan Encouraged use of incentive spirometer Ambulate the patient Continue aspirin Continue metoprolol 25 mg p.o. twice a day Norvasc 2.5 mg twice a day High-dose statins NovoLog insulin for blood sugar control Chest x-ray was reviewed Will continue to follow
--- NOTE | 2024-01-07 13:04 | P.PN ---
Subjective Progress Note Date: 01/07/24 53-year-old female with a PMH of CAD status post multiple stents, COPD, type II DM, hypertension, hyperlipidemia, hypothyroidism who was recently admitted to the hospital for chest pain. She was discharged home on 12/03/2023 and returned to the emergency room on 12/04 evening with complaints of worsening epigastric pain. EKG at that time revealed sinus rhythm at [address] segment elevation in leads V1 and V2. Emergent cardiac catheterization revealed severe triple-vessel disease. She was discharged with plans for CABG to be scheduled in the outpatient setting. She underwent off pump CABG x [address] Massey on 01/03. EBL 250 cc. [facility] Physicians consulted for medical management of this patient. Patient was extubated on 01/03 at 8:24PM. 01/04 Patient was seen and examined. Currently on Amiodarone drip at 0.5 mg/min and Insulin drip at 1.5 unit/hr. She reports chest pain at the site of incision with deep inspiration. No BM or passing gas. She continues to have bilateral and mediastinal chest tubes along with riley catheter. CBC Hg 9.5 Hct 24.9 Plt 137. CMP Na 136, Cr 0.48, glu 109, AST 39, Alb 3. CXR shows some mild pulmonary vascular congestion. She is curently 99% on 2L NC. CT surgery note reviewed, plans to switch Amiodarone to PO, add PO CCB, DC [place]. 01/05 Patient was seen and examined. Feeling much better today in terms of pain. Mediastinal and bilateral chest tubes discontinued but CT surgery. Amiodarone drip switched to PO. Insulin drip at 0 unit/hr, we will switch this to SQ insulin today. LR at 20 cc/hr. Receiving 1g Mag sulfate today. No BM or passing gas, given Lactulose. Plans to discontinue Riley catheter after Lasix IV. CBC WBC 12.1 Hg 8.3 Hct 24.6. CMP Na 136, AST 49, Alb 2.8. Mag 1.9. CXR shows some mild pulmonary vascular congestion, one dose of Lasix 40 mg IV given. She is currently 91% on RA. 01/06 Patient was seen and examined. POC glucose 193-235 over the past 24H. She has received 6 units of Novolog on the sliding scale. Sliding scale increased along with Novolog 2 units TID with meals. CXR shows pulmonary vascular congestion, plans for Lasix 40 mg IV today. She did have 2 bowel movements yesterday. Currently 95% on RA. CBC WBC 11.3 Hg 7.8 Hct 23.6. CMP Na 135, BUN 20, glu 235, AST 37, Alb 2.9. Mag 2.1. General: non toxic, no distress, appears at stated age Derm: warm, dry, chest wall dressing c/d/i Head: atraumatic, normocephalic, symmetric Eyes: EOMI, no lid lag, anicteric sclera Mouth: no lip lesion, mucus membranes moist Cardiovascular: S1S2 reg, no murmur Lungs: CTA bilateral, no rhonchi, no rales , no accessory muscle use Abdominal: soft, nontender to palpation, no guarding, no appreciable organomegaly Ext: no gross muscle atrophy, no edema, no contractures Neuro: no focal neuro deficits Psych: Alert, oriented, appropriate affect Based on my assessment of this patient, this patient meets a high complexity level of care. Patient has an acute diagnosis of POD 4 off pump CABG x 3 that poses a threat to life or bodily function. Diabetes mellitus with hyperglycemia: Highest POC glucose 235. Increase sliding scale. Add Novolog 2 units TID. Accuchecks ACHS. Hypoglycemic precautions. Acute blood loss anemia: Expected result of surgery. Ferrous sulfate 325 mg PO BID. Monitor daily CBC. Leukocytosis: Likely reactive. No signs of active infection. Monitor fever profile. Acute hypoxic respiratory failure: Improving. Extubated 01/03. Continue IS. Pulmonary vascular congestion: One dose of Lasix 40 mg IV today. Monitor electrolytes and renal function. History of CAD post CABG POD 4: ASA 325 mg PO QD. Plavix 75 mg PO QD. Metoprolol 25 mg PO BID. Lipitor 80 mg PO QHS. Chronic conditions: COPD, type II DM, hypertension, hyperlipidemia, hypothyroidism CODE STATUS: FULL CODE. DVT Prophylaxis: Heparin SQ. GI Prophylaxis: Protonix PO. Designated medical POA if patient is not able to make medical decisions for the mselves: I have reviewed the following project management consultant notes: CT surgery, Pulmonary, Cardiology. I have reviewed the results of the following tests: CBC, CMP, Mag. I have ordered the following tests: I have discussed the care of this patient with the following independent historian: I have independently interpreted the following test below: CXR I have discussed the management of this patient with the following physician: Objective - Vital Signs Vital signs: Vital Signs Temp 98 F 01/07/24 08:00 Pulse 95 01/07/24 08:12 Resp 16 01/07/24 08:00 BP 112/68 01/07/24 08:00 Pulse Ox 95 01/07/24 08:04 FiO2 40 01/04/24 20:00 Intake & Output 01/06/24 01/07/24 01/07/24 18:59 06:59 18:59 Intake Total 89 500 Output Total 1060 100 Balance -971 400 Weight 71.5 kg Intake: IV 89 .9NS Pressure Bag 9 Lactated Ringers 1,000 ml 80 @ 20 mls/hr IV .Q24H [facility] Rx#:[id number] Oral 500 Output: Urine 1060 100 Other: Voiding Method Toilet Toilet Bedside Commode # Voids 1 1 # Bowel Movements 1 1 ABP, PAP, CO, CI - Last Documented Arterial Blood Pressure 121/56 Pulmonary Artery Pressure 17/6 Cardiac Output 5.6 Cardiac Index 3.5 - Labs CBC & Chem 7: 01/07/24 08:01 01/07/24 08:01 Labs: Abnormal Lab Results - Last 24 Hours (Table) 01/06/24 01/06/24 01/06/24 Range/Units 12:02 16:51 20:19 POC Glucose (mg/dL) 193 H 238 H 218 H (70-110) mg/dL 01/06/24 01/07/24 Range/Units 23:52 06:39 POC Glucose (mg/dL) 235 H 198 H (70-110) mg/dL Microbiology - Last 24 Hours (Table) 01/04/24 13:58 Gram Stain - Final Sputum Sputum Culture - Final
[2024-01-07 16:30] LABS: Glucose,Whole Blood 220 mg/dL (70-110)
[2024-01-07] MEDS: IBUPROFEN 400 MG TAB PO PRN (18:14)
[2024-01-07 19:53] LABS: Glucose,Whole Blood 144 mg/dL (70-110)
[2024-01-08 06:39] LABS: Glucose,Whole Blood 183 mg/dL (70-110)
[2024-01-08 07:16] VITALS: RESP 16
[2024-01-08 08:32] LABS: African American GFR (CKD) >90 (>60 ml/min/1.73 sqM); Anion Gap 9 mmol/L; Blood Urea Nitrogen 18 mg/dL (7-17); Carbon Dioxide 26 mmol/L (22-30); Chloride 104 mmol/L (98-107); Glucose 203 mg/dL (74-99); Non-African American GFR(CKD) >90 (>60 ml/min/1.73 sqM); Potassium 4.1 mmol/L (3.5-5.1); Sodium 139 mmol/L (137-145)
[2024-01-08 08:33] LABS: HGB 8.6 gm/dL (11.4-16.0); MCH 28.6 pg (25.0-35.0); MCHC 31.9 g/dL (31.0-37.0); MCV 89.5 fL (80.0-100.0); Mean Platelet Volume 8.3; Platelet Count 257 k/uL (150-450); RBC 3.01 m/uL (3.80-5.40); RDW 13.9 % (11.5-15.5); WBC 10.2 k/uL (3.8-10.6)
--- NOTE | 2024-01-08 08:54 | XR ---
EXAMINATION TYPE: XR chest 2V DATE OF EXAM: 01/08/2024 6:28 AM CLINICAL INDICATION:Female, 53 years old with history of post cardiac surgery; [facility] COMPARISON: Chest radiograph from one day prior. TECHNIQUE: XR chest 2V Frontal and lateral views of the chest. FINDINGS: Lungs/Pleura: There is no evidence of pleural effusion, focal consolidation, or pneumothorax. Pulmonary vascularity: Unremarkable. Heart/mediastinum: Cardiomediastinal silhouette is unremarkable. Left atrial appendage occlusion dev ice is present. Musculoskeletal: No acute osseous pathology. Midline sternotomy wires are noted. IMPRESSION: 1. No acute cardiopulmonary disease/process. 2. Cardiomegaly with trace right pleural effusion.
--- NOTE | 2024-01-08 10:25 | P.PN ---
Subjective Progress Note Date: 01/08/24 Principal diagnosis: Coronary artery disease with previous myocardial infarction and prior stenting of the left anterior descending artery as well as left circumflex/OM, stable ang matt. Past medical history significant for hypertension, hyperlipidemia, diabetes mellitus type II, hypothyroid, bilateral internal carotid artery stenosis, asthma, chronic back and neck pain, remote history of pneumonia, daily marijuana use with recent cessation, previous tobacco dependence, remote history of syncope, and family history of premature coronary artery disease. Preoperative nasal swab positive for MSSA, treated POD #4 off pump coronary artery bypass grafting x 3. Left internal thoracic artery (in-situ) to left anterior descending coronary artery, saphenous vein from aorta to right coronary artery, radial artery from aorta to obtuse marginal artery, left atrial appendage ligation with 35mm AtriClip, endoscopic left radial and left greater saphenous vein harvest, graft flow measurements using the [employer] flow meter system, trans-esophageal echo Postoperative acute blood loss anemia and thrombocytopenia, expected given hemodilution. The patient was seen and examined in follow-up today January 08, 2024 at her bedside in the intensive care unit. Currently she is sitting up to the bedside chair, is awake, alert, oriented x 3 and is in no acute apparent distress. Patient is very emotional this morning with episodes of crying, states she has a lot of personal issues going on at home. She denies any complaints of pain or shortness of breath at this time. Oxygen saturations are 98% on room air and she is achieving 500 mL on her incentive spirometry with encouragement. She remains hemodynamically stable and is currently on no inotropic or pressor support. Bedside telemetry showing normal sinus rhythm heart rate 78 bpm. The patient is awaiting a bed on the third floor cardiac stepdown unit, although due lack of bed availability on the stepdown unit she remains in the intensive care unit. Chest x-ray and laboratory results were reviewed. Objective - Vital Signs Vital signs: Vital Signs Temp 98.1 F 01/08/24 04:00 Pulse 83 01/08/24 04:00 Resp 16 01/08/24 04:00 BP 102/74 01/08/24 00:00 Pulse Ox 98 01/08/24 04:00 FiO2 40 01/04/24 20:00 Intake & Output 01/07/24 01/08/24 01/08/24 18:59 06:59 18:59 Intake Total 500 700 Output Total 800 300 Balance -300 400 Intake: Oral 500 700 Output: Urine 800 300 Other: Voiding Method Toilet Toilet Bedside Commode Bedside Commode # Voids 1 1 # Bowel Movements 1 0 ABP, PAP, CO, CI - Last Documented Arterial Blood Pressure 121/56 Pulmonary Artery Pressure 17/6 Cardiac Output 5.6 Cardiac Index 3.5 - Exam CONSTITUTIONAL: Sitting up to the bedside chair in the intensive care unit, appears comfortable, cooperative, no apparent acute distress. HEENT: Neck is supple, no JVD, no lymphadenopathy. RESPIRATORY: Lungs sounds essentially clear throughout, diminished to her bilateral bases. Respirations are symmetrical and nonlabored. Currently on room air with oxygen saturations 98%. Able to achieve 500 mL on her incentive spirometry. Strong cough. CARDIOVASCULAR: Regular rhythm and rate. S1 and S2 present, negative for S3, gallop or murmur. Sternum is stable. Palpable peripheral pulses bilaterally. No calf pain or tenderness noted. Heart hugger in place with patient demonstrating appropriate use. Knee-high HEAVEN hose and sequential compression devices in place to her bilateral lower extremities. GASTROINTESTINAL: Abdomen soft, nontender, nondistended. Active bowel sounds present 4 quadrants. Tolerating diet. Passing flatus. No guarding or rigidity. GENITOURINARY: Continues to void. 300 mL of urine output the last 8 hours. INTEGUMENTARY: Skin is warm and dry with no evidence of clubbing or cyanosis. Midline sternal incision clean dry and well approximated, covered with dry intact dressing. Left lower extremity EVH sites well approximated without redness or drainage. Left arm radial artery harvest sites clean, dry and approximated. No drainage or redness is present. NEUROLOGIC: Cranial nerves II through XII intact. No focal deficits. MUSKULOSKELETAL: Able to move all extremities, strength equal bilaterally. PSYCHIATRIC: Alert and oriented to person place and time, appropriate affect, intact judgment and insight. - Allied health notes Allied health notes reviewed: nursing - Labs CBC & Chem 7: 01/08/24 07:55 01/08/24 07:55 Labs: Abnormal Lab Results - Last 24 Hours (Table) 01/07/24 01/07/24 01/07/24 Range/Units 08:01 08:01 11:50 WBC 11.3 H (3.8-10.6) k/uL RBC 2.69 L (3.80-5.40) m/uL Hgb 7.8 L (11.4-16.0) gm/dL Hct 23.6 L (34.0-46.0) % Neutrophils # 8.4 H (1.3-7.7) k/uL Sodium 135 L (137-145) mmol/L BUN 20 H (7-17) mg/dL Glucose 235 H (74-99) mg/dL POC Glucose (mg/dL) 206 H (70-110) mg/dL AST 37 H (14-36) U/L Total Protein 5.2 L (6.3-8.2) g/dL Albumin 2.9 L (3.5-5.0) g/dL 01/07/24 01/07/24 01/08/24 Range/Units 16:29 19:52 06:37 WBC (3.8-10.6) k/uL RBC (3.80-5.40) m/uL Hgb (11.4-16.0) gm/dL Hct (34.0-46.0) % Neutrophils # (1.3-7.7) k/uL Sodium (137-145) mmol/L BUN (7-17) mg/dL Glucose (74-99) mg/dL POC Glucose (mg/dL) 220 H 144 H 183 H (70-110) mg/dL AST (14-36) U/L Total Protein (6.3-8.2) g/dL Albumin (3.5-5.0) g/dL - Imaging and Cardiology Chest x-ray: report reviewed, image reviewed Assessment and Plan Assessment: Coronary artery disease with previous myocardial infarction and prior stenting of the left anterior descending artery as well as left circumflex/OM, stable angina, status post three-vessel off-pump CABG Hypertension Hyperlipidemia, treated, cholesterol 140, LDL 79 Diabetes, preoperative hemoglobin A1c 7.8% Hypothyroid, preoperative TSH < 0.015, free T4 3.19 Bilateral internal carotid artery stenosis, 50-69% Asthma Chronic back and neck pain Remote history of pneumonia Daily marijuana use with recent cessation Previous tobacco dependence, preoperative FEV1 100% of predicted, DLCO 119 Remote history of syncope Family history of premature coronary artery disease Preoperative nasal swab positive for MSSA, treated Postoperative acute blood loss anemia and thrombocytopenia, expected Plan: Continue to maximize medical therapy with aspirin, statin, Plavix, and beta- xavi. Will increase beta-xavi therapy as tolerated. Continue losartan 12.5 mg daily at 2 PM for afterload reduction. Continue oral calcium channel xavi for radial artery spasm prophylaxis with hold parameters. Continue amiodarone for A-fib prophylaxis. Patient has no documented A-fib at this point Encourage incentive spirometry use 10 times every hour while awake. Bronchodilators per pulmonology. Increase activity, ambulate as tolerated. PT/OT/cardiac rehab following. GI/DVT prophylaxis Pain control with current medication regimen Insulin management per internal medicine, patient refusing to be discharged home on insulin. Continue to monitor strict accurate intake and output Daily weights. Shower daily. Transfer orders in place for [address] [place] [address] cardiac stepdown unit. Discharge planning in progress, anticipate discharge to home with home care in the next 24 hours. More recommendations to follow based on patient's clinical course. Time with Patient: Greater than 30
--- NOTE | 2024-01-08 10:28 | P.PN ---
Subjective Progress Note Date: 01/08/24 53-year-old female with a PMH of CAD status post multiple stents, COPD, type II DM, hypertension, hyperlipidemia, hypothyroidism who was recently admitted to the hospital for chest pain. She was discharged home on 12/03/2023 and returned to the emergency room on 12/04 evening with complaints of worsening epigastric pain. EKG at that time revealed sinus rhythm at [address] segment elevation in leads V1 and V2. Emergent cardiac catheterization revealed severe triple-vessel disease. She was discharged with plans for CABG to be scheduled in the outpatient setting. She underwent off pump CABG x [address] Massey on 01/03. EBL 250 cc. [facility] [place] [facility] consulted for medical management of this patient. Patient was extubated on 01/03 at 8:24PM. 01/04 Patient was seen and examined. Currently on Amiodarone drip at 0.5 mg/min and Insulin drip at 1.5 unit/hr. She reports chest pain at the site of incision with deep inspiration. No BM or passing gas. She continues to have bilateral and mediastinal chest tubes along with riley catheter. CBC Hg 9.5 Hct 24.9 Plt 137. CMP Na 136, Cr 0.48, glu 109, AST 39, Alb 3. CXR shows some mild pulmonary vascular congestion. She is curently 99% on 2L NC. CT surgery note reviewed, plans to switch Amiodarone to PO, add PO CCB, DC Chase. 01/05 Patient was seen and examined. Feeling much better today in terms of pain. Mediastinal and bilateral chest tubes discontinued but CT surgery. Amiodarone drip switched to PO. Insulin drip at 0 unit/hr, we will switch this to SQ insulin today. LR at 20 cc/hr. Receiving 1g Mag sulfate today. No BM or passing gas, given Lactulose. Plans to discontinue Riley catheter after Lasix IV. CBC WBC 12.1 Hg 8.3 Hct 24.6. CMP Na 136, AST 49, Alb 2.8. Mag 1.9. CXR shows some mild pulmonary vascular congestion, one dose of Lasix 40 mg IV given. She is currently 91% on RA. 01/06 Patient was seen and examined. POC glucose 193-235 over the past 24H. She has received 6 units of Novolog on the sliding scale. Sliding scale increased along with Novolog 2 units TID with meals. CXR shows pulmonary vascular congestion, plans for Lasix 40 mg IV today. She did have 2 bowel movements yesterday. Currently 95% on RA. CBC WBC 11.3 Hg 7.8 Hct 23.6. CMP Na 135, BUN 20, glu 235, AST 37, Alb 2.9. Mag 2.1. 01/07 Patient was seen and examined. POC glucose 96-235 over the past 24H. Novolog will be increased from 2 to 5 units TID with meals. CXR shows improved pulmonary vascular congestion. She did have 1 bowel movements yesterday. Currently 98% on RA. CBC= Hg 8.6 Hct 27. BMP BUN 18, glu 203. Discussed with Venkat SANDOVAL, plans for discharge home today. I discussed with the patient the need to insulin at home. He blood sugars have been running in the 200-300s at home when I reviewed her phone. She would benefit from Levimir 10 units QD. She is refusing any insulin at home and would like to continue Metformin instead. Advised to follow up with her PCP for further titration of her diabetic medications. General: non toxic, no distress, appears at stated age Derm: warm, dry, chest wall dressing c/d/i Head: atraumatic, normocephalic, symmetric Eyes: EOMI, no lid lag, anicteric sclera Mouth: no lip lesion, mucus membranes moist Cardiovascular: S1S2 reg, no murmur Lungs: CTA bilateral, no rhonchi, no rales , no accessory muscle use Ext: no gross muscle atrophy, no edema, no contractures Neuro: no focal neuro deficits Psych: Alert, oriented, appropriate affect Based on my assessment of this patient, this patient meets a high complexity level of care. Patient has an acute diagnosis of POD 5 off pump CABG x 3 that poses a threat to life or bodily function. Diabetes mellitus with hyperglycemia: Highest POC glucose 235. Insulin sliding scale. Increase Novolog from 2 to 5 units TID. Accuchecks ACHS. Hypoglycemic precautions. Acute blood loss anemia: Expected result of surgery. Ferrous sulfate 325 mg PO BID. Monitor daily CBC. Leukocytosis: Likely reactive. No signs of active infection. Monitor fever profile. Acute hypoxic respiratory failure: Improving. Extubated 01/03. Continue IS. Pulmonary vascular congestion: Improved with daily Lasix. History of CAD post CABG POD 5: ASA 325 mg PO QD. Plavix 75 mg PO QD. Metoprolol 25 mg PO BID. Lipitor 80 mg PO QHS. Chronic conditions: COPD, hypertension, hyperlipidemia, hypothyroidism CODE STATUS: FULL CODE. DVT Prophylaxis: Heparin SQ. GI Prophylaxis: Protonix PO. Designated medical POA if patient is not able to make medical decisions for themselves: I have reviewed the following remediation consultant notes: CT surgery I have reviewed the results of the following tests: CBC, BMP I have ordered the following tests: I have discussed the care of this patient with the following independent historian: I have independently interpreted the following test below: CXR I have discussed the management of this patient with the following physician: Bacilio PLUGGER MAN as above Objective - Vital Signs Vital signs: Vital Signs Temp 98.1 F 01/08/24 04:00 Pulse 83 01/08/24 04:00 Resp 16 01/08/24 04:00 BP 102/74 01/08/24 00:00 Pulse Ox 98 01/08/24 04:00 FiO2 40 01/04/24 20:00 Intake & Output 01/07/24 01/08/24 01/08/24 18:59 06:59 18:59 Intake Total 500 700 Output Total 800 300 Balance -300 400 Intake: Oral 500 700 Output: Urine 800 300 Other: Voiding Method Toilet Toilet Bedside Commode Bedside Commode # Voids 1 1 # Bowel Movements 1 0 ABP, PAP, CO, CI - Last Documented Arterial Blood Pressure 121/56 Pulmonary Artery Pressure 17/6 Cardiac Output 5.6 Cardiac Index 3.5 - Labs CBC & Chem 7: 01/08/24 07:55 01/08/24 07:55 Labs: Abnormal Lab Results - Last 24 Hours (Table) 01/07/24 01/07/24 01/07/24 Range/Units 08:01 08:01 11:50 WBC 11.3 H (3.8-10.6) k/uL RBC 2.69 L (3.80-5.40) m/uL Hgb 7.8 L (11.4-16.0) gm/dL Hct 23.6 L (34.0-46.0) % Neutrophils # 8.4 H (1.3-7.7) k/uL Sodium 135 L (137-145) mmol/L BUN 20 H (7-17) mg/dL Glucose 235 H (74-99) mg/dL POC Glucose (mg/dL) 206 H (70-110) mg/dL AST 37 H (14-36) U/L Total Protein 5.2 L (6.3-8.2) g/dL Albumin 2.9 L (3.5-5.0) g/dL 01/07/24 01/07/24 01/08/24 Range/Units 16:29 19:52 06:37 WBC (3.8-10.6) k/uL RBC (3.80-5.40) m/uL Hgb (11.4-16.0) gm/dL Hct (34.0-46.0) % Neutrophils # (1.3-7.7) k/uL Sodium (137-145) mmol/L BUN (7-17) mg/dL Glucose (74-99) mg/dL POC Glucose (mg/dL) 220 H 144 H 183 H (70-110) mg/dL AST (14-36) U/L Total Protein (6.3-8.2) g/dL Albumin (3.5-5.0) g/dL
--- NOTE | 2024-01-08 10:44 | P.PN ---
Subjective Progress Note Date: 01/08/24 53-year-old black female, who underwent a three-vessel bypass surgery today, off-pump, by Dr. Bunn. The patient also had a left atrial appendage ligation. The patient is being brought back to the intensive care unit, currently. The patient has a long history of medical problems including coronary disease, with previous stents in the LAD, and left circumflex coronary artery, essential hypertension, hyperlipidemia, diabetes mellitus, hypothyroidism, asthma, chronic back and neck pain, use of marijuana, and a prior history of tobacco use. In addition, the patient has a very strong family history of premature coronary disease. The patient apparently was a [employer], but did agree to re ceive blood transfusions, if necessary. Current labs, include a blood gas showing a pO2 of 139, pCO2 of 43, and a pH of 7.41. The blood gas, in the intensive care unit, has not been done as yet. Sodium 143, potassium 3.3, ionized calcium 4.8, glucose 159, lactic acid 1.6, hemoglobin 9. Glucose is 159. Chest x-ray shows properly placed endotracheal tube, in the mid trachea. Tubes and lines otherwise look okay. There are some postsurgical changes, particular in the left lower lobe, with some atelectasis, and a small effusion. Blood gases have not yet been done. The patient's ventilator settings include volume assist-control, rate 12, tidal volume 375, 100%, and 10 of PEEP. According to the nurse, the patient will be coming back on nitroglycerin at 5 mcg/min, insulin at 1 unit an hour, propofol at 40 mcg/kg/min, and lactated Ringer's at 50 cc an hour. Progress note dated January 05, 2024. This is a 53-year-old black female, status post three-vessel bypass grafting, postop day #1. The patient was extubated yesterday. Currently, the patient is on 2 L of oxygen. She is receiving amiodarone, at 0.5 mg/min. She is getting lactated Ringer's at 40 cc an hour. Her insulin drip is currently off. Clinically, she looks much improved, although she is a bit sleepy today. Chest x-ray revealed some postsurgical changes, and some mild basilar atelectasis. All in all, the patient has done very well. White count 9.5, hemoglobin 8.5, hematocrit 24.9, and platelet count was 137,000. Sodium 136, potassium 4.2, chlorides 107, CO2 23, BUN 10, creatinine 0.48. Glucose 153. Albumin is 3. X- ray as mentioned above. Progress note dated January 06, 2024. 53-year-old black female, postop day #2, status post three-vessel bypass grafting. The patient was extubated on January 03. The patient is doing well. Currently she is on room air. She is receiving lactated Ringer's at 30 cc an hour. She is doing only average on her incentive spirometer. Insulin drip has been turned off. The patient has no complaints today, other than for some discomfort at the surgical site. White count 12.1, hemoglobin 8.3, hematocrit 24.6, and platelet count 163,000. Sodium 136, potassium 4.3, chlorides 107, CO2 22, BUN 17, and creatinine 0.59. Albumin is 2.8. Glucose is 96. Chest x-ray shows postoperative changes. There is some minimal basilar atelectasis. On today's evaluation of 01/07/2024, the patient is being seen for a follow-up. The patient is calm and comfortable and she is sitting up in the chair. She is on room air oxygen. She is using the incentive spirometer and the patient is pulling approximately 500. A chest x-ray was done and showed cardiomegaly. Some postsurgical atelectatic changes in lung bases and small effusion. She is ambulating. All of the chest is able to move. The patient continues to have an epicardial pacemaker wires in place. No complaints. No altered mentation. No chest pain. No other significant events overnight. Blood work from today shows a WBC count 11.3 with a hemoglobin 7.8 and a platelet count of 194. BUN is at 20 with a creatinine of 0.6 and a sodium levels at 135. She is on oral amiodarone 400 mg p.o. twice a day. She is on aspirin. She is also on metoprolol 25 mg p.o. twice a day. She is on NovoLog 2 units with meals and Scale coverage. She is ambulating. She is also on high-dose statins. Norvasc is at 2.5 mg p.o. twice a day. Most recent BP is under adequate control and the patient's pulse ox 95% on room air oxygen. The patient is currently postop day #3 and she underwent off-pump three-vessel bypass surgery. On today's evaluation of 01/08/2024, the patient is being seen for a follow-up. Patient is doing well. No specific complaints. She is currently on room air oxygen. No respiratory difficulties. Surgical wound is dry clean and intact. Patient is postop day #4. She is ambulating. No focal neurological deficit. She is using the incentive spirometer and pulling approximately 750. Remains hemodynamically stable. All of the chest is removed. Cardiac rhythm is sinus. Chest x-ray was noted from today and it shows essentially postsurgical changes along with cardiomegaly and a trace right-sided pleural effusion. Otherwise there is no acute abnormalities. The patient's hemoglobin is at 8.69 and a white count of 10.2 and a BUN of 18 with a creatinine of 0.57 and his sodium lev els at 139. Objective - Vital Signs Vital signs: Vital Signs Temp 98.1 F 01/08/24 04:00 Pulse 83 01/08/24 04:00 Resp 16 01/08/24 04:00 BP 102/74 01/08/24 00:00 Pulse Ox 98 01/08/24 04:00 FiO2 40 01/04/24 20:00 Intake & Output 01/07/24 01/08/24 01/08/24 18:59 06:59 18:59 Intake Total 500 700 Output Total 800 300 Balance -300 400 Intake: Oral 500 700 Output: Urine 800 300 Other: Voiding Method Toilet Toilet Bedside Commode Bedside Commode # Voids 1 1 # Bowel Movements 1 0 ABP, PAP, CO, CI - Last Documented Arterial Blood Pressure 121/56 Pulmonary Artery Pressure 17/6 Cardiac Output 5.6 Cardiac Index 3.5 - Exam CONSTITUTIONAL: Sitting up to the bedside chair in the intensive care unit, appears comfortable, cooperative, no apparent acute distress. HEENT: Neck is supple, no JVD, no lymphadenopathy. RESPIRATORY: Lungs sounds essentially clear throughout, diminished to her b ilateral bases. Respirations are symmetrical and nonlabored. Currently on room air with oxygen saturations 98%. Able to achieve 500 mL on her incentive spirometry. Strong cough. CARDIOVASCULAR: Regular rhythm and rate. S1 and S2 present, negative for S3, gallop or murmur. Sternum is stable. Palpable peripheral pulses bilaterally. No calf pain or tenderness noted. Heart hugger in place with patient demonstrating appropriate use. Knee-high HEAVEN hose and sequential compression devices in place to her bilateral lower extremities. GASTROINTESTINAL: Abdomen soft, nontender, nondistended. Active bowel sounds present 4 quadrants. Tolerating diet. Passing flatus. No guarding or rigid ity. GENITOURINARY: Continues to void. 300 mL of urine output the last 8 hours. INTEGUMENTARY: Skin is warm and dry with no evidence of clubbing or cyanosis. Midline sternal incision clean dry and well approximated, covered with dry intact dressing. Left lower extremity EVH sites well approximated without redness or drainage. Left arm radial artery harvest sites clean, dry and approximated. No drainage or redness is present. NEUROLOGIC: Cranial nerves II through XII intact. No focal deficits. MUSKULOSKELETAL: Able to move all extremities, strength equal bilaterally. PSYCHIATRIC: Alert and oriented to person place and time, appropriate affect, intact judgment and insight. - Labs CBC & Chem 7: 01/08/24 07:55 01/08/24 07:55 Labs: Abnormal Lab Results - Last 24 Hours (Table) 01/07/24 01/07/24 01/07/24 Range/Units 11:50 16:29 19:52 RBC (3.80-5.40) m/uL Hgb (11.4-16.0) gm/dL Hct (34.0-46.0) % BUN (7-17) mg/dL Glucose (74-99) mg/dL POC Glucose (mg/dL) 206 H 220 H 144 H (70-110) mg/dL 01/08/24 01/08/24 01/08/24 Range/Units 06:37 07:55 07:55 RBC 3.01 L (3.80-5.40) m/uL Hgb 8.6 L (11.4-16.0) gm/dL Hct 27.0 L (34.0-46.0) % BUN 18 H (7-17) mg/dL Glucose 203 H (74-99) mg/dL POC Glucose (mg/dL) 183 H (70-110) mg/dL Assessment and Plan Plan: Postop day # 4, status post off-pump three-vessel bypass grafting, and ligation of left atrial appendage. Patient is recovering well. The patient is hemodynamically stable. No chest pain. Surgical scar is dry clean and intact and patient continues to use incentive spirometer. She is ambulating. Postthoracotomy S/P successful extubation, January 04, 2024. All of the chest tube removed and the chest x-ray from today shows some post surgical atelectatic change in lung base bilaterally, expected outcome of surgery. Small right-sided pleural effusion is also seen. Obesity with a BMI of 34 History of coronary disease, with previous stents, in the LAD, and circumflex coronary artery. Essential hypertension. Diabetes mellitus. Hyperlipidemia. Hypothyroidism. History of asthma. History of chronic back and neck pain. History of previous tobacco use. History of current marijuana use. Strong family history of premature cardiovascular disease. Plan Encouraged use of incentive spirometer Ambulate the patient Continue aspirin Continue metoprolol 25 mg p.o. twice a day Norvasc 2.5 mg twice a day High-dose statins NovoLog insulin for blood sugar control Chest x-ray was reviewed Will continue to follow
[2024-01-08 11:33] LABS: Glucose,Whole Blood 144 mg/dL (70-110)
[2024-01-08] MEDS: INSULIN ASPART (NovoLOG) 100 UNIT/ML VIAL SQ SCH (11:51)
[2024-01-08 12:32] VITALS: BP 117/70; PULSE 75; TEMP 98.3
--- NOTE | 2024-01-08 12:50 | P.DS ---
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: post cardiac surgery Do you want consulting provider notified?: Yes Consult Physician Routine Consulting Provider: Gauri Kraft Consult Reason/Comments: med mgmt; [facility] patient Do you want consulting provider notified?: Yes Consult Physician Routine Consulting Provider: Eliana Rose Consult Reason/Comments: Personalized Living Manager Consult: post cardiac surgery Do you want consulting provider notified?: Yes Primary care physician: [facility] Course: FINAL DIAGNOSIS: Coronary artery disease with previous myocardial infarction and prior stenting of the left anterior descending artery as well as left circumflex/OM, stable angina, status post three-vessel off-pump CABG Hypertension Hyperlipidemia, treated, cholesterol 140, LDL 79 Diabetes, preoperative hemoglobin A1c 7.8% Hypothyroid, preoperative TSH < 0.015, free T4 3.19 Bilateral internal carotid artery stenosis, 50-69% Asthma Chronic back and neck pain Remote history of pneumonia Daily marijuana use with recent cessation Previous tobacco dependence, preoperative FEV1 100% of predicted, DLCO 119 Remote history of syncope Family history of premature coronary artery disease Preoperative nasal swab positive for MSSA, treated Postoperative acute blood loss anemia and thrombocytopenia, expected PRINCIPAL PROCEDURE: Off pump coronary artery bypass grafting x 3, left internal thoracic artery (in- situ) to left anterior descending coronary artery, saphenous vein from aorta to right coronary artery, radial artery from aorta to obtuse marginal artery Left atrial appendage ligation with 35mm AtriClip Endoscopic left radial and left greater saphenous vein harvest Graft flow measurements using the Medi-Stim flow meter system Trans-esophageal echo HISTORY OF PRESENT ILLNESS: The patient is a 53-year-old -[place] female patient who follows outpatient with the [facility] for primary care and Dr. Ojeda for cardiology. She had a recent stress test in October which demonstrated large area of ischemia anteriorly. Due to this she was scheduled for elective heart catheterization. Unfortunately she developed significant diaphoresis, right arm numbness and tingling, epigastric pain and palpitations. She took sublingual nitro which only helped mildly so she presented to [facility] 12/05/23 for evaluation and treatment. EKG showed sinus rhythm with ST changes anteriorly concerning for ischemia. Initial troponin was negative, but due to her presenting symptoms/EKG changes/recent abnormal stress test she was taken to the cath lab radiology technician by Dr. Osborn and was found to have significant triple vessel coronary artery disease. She was admitted to the ICU on IV heparin and consultation was placed to cardiothoracic surgery for surgical revascularization recommendations. Of note, her blood pressure had remained elevated throughout her stay. She was recommended to undergo elective coronary artery bypass surgery. The usual perioperative course was discussed in detail with the patient and her family, all risks and benefits were explained, all questions were answered, and consent was obtained to proceed with surgery. The patient was discharged to home on maximal medical therapy to return as an outpatient for surgery after obtaining pulmonary clearance. HOSPITAL COURSE: The patient was brought to the hospital on 01/04/24, taken to the preoperative area, prepared in the usual fashion, and subsequently taken to the operating room where Dr. Bunn performed three-vessel off-pump CABG. Upon completion of surgery the patient was transferred to the cardiovascular intensive care unit where she was recovered and monitored hemodynamically. She was extubated, all lines, tubes, and drips were discontinued when appropriate, and transfer orders were placed for 3 S. cardiac stepdown unit, however there was no bed availability and the patient remained on ICU as a stepdown patient until discharge. Her oxygen was titrated down, she continued to work with physical and occupational therapy, she was tolerating oral diet, her pain was controlled, and she was ready to be discharged to home with home care on postoperative day #4. She received written and verbal instruction regarding her medications, activity restrictions, signs and symptoms requiring physician notification, and follow-up appointments. Plan - Discharge Summary Discharge Rx Participant: No New Discharge Prescriptions: New Aspirin 325 mg PO DAILY #30 tab Ibuprofen [Motrin] 400 mg PO Q6HR PRN #28 tab PRN Reason: Pain Clopidogrel [Plavix] 75 mg PO DAILY #30 tab Acetaminophen Tab [Tylenol] 1,000 mg PO Q6HR PRN tab PRN Reason: Fever And/ Or Pain Amiodarone [Cordarone] 400 mg PO BID #56 tab Losartan [Cozaar] 12.5 mg PO DAILY@1400 #30 tab Ferrous Sulfate [Iron (65 MG Elemental)] 325 mg PO BID-W/MEALS #14 tab Metoprolol Tartrate [Lopressor] 25 mg PO BID #60 tab amLODIPine [Norvasc] 2.5 mg PO DAILY@1200 #30 tab Pantoprazole [Protonix] 40 mg PO BID-W/MEALS #60 tab Ascorbic Acid [Vitamin C] 500 mg PO BID-W/MEALS #14 tab Continue Atorvastatin [Lipitor] 80 mg PO HS Albuterol Inhaler [Ventolin Hfa Inhaler] 2 puff INHALATION RT-QID PRN PRN Reason: Shortness Of Breath Docusate [Colace] 100 mg PO DAILY PRN PRN Reason: Constipation metFORMIN HCL [Glucophage] 1,000 mg PO DAILY Ondansetron Odt [Zofran ODT] 4 mg PO Q12HR PRN PRN Reason: Nausea Discontinued Aspirin EC [Ecotrin Low Dose] 81 mg PO DAILY Isosorbide Mononitrate ER [Imdur] 30 mg PO DAILY hydrALAZINE HCL [Apresoline] 50 mg PO DAILY Metoprolol Succinate [Toprol XL] 50 mg PO DAILY Nitroglycerin Sl Tabs [Nitrostat] 0.4 mg SL Q5M PRN #30 tab PRN Reason: Chest Pain hydroCHLOROthiazide [Hydrodiuril] 25 mg PO DAILY #60 tab Losartan Potassium 50 mg PO DAILY Mupirocin [Mupirocin 2%] 1 applic NASAL BID #1 tub Prasugrel(Effient)Unknown Dose 1 tab PO DAILY Cbd Gummy PO HS Discharge Medication List Atorvastatin [Lipitor] 80 mg PO HS 05/05/20 [History] metFORMIN HCL [Glucophage] 1,000 mg PO DAILY 01/19/22 [History] Albuterol Inhaler [Ventolin Hfa Inhaler] 2 puff INHALATION RT-QID PRN 12/02/23 [History] Ondansetron Odt [Zofran ODT] 4 mg PO Q12HR PRN 12/02/23 [History] Docusate [Colace] 100 mg PO DAILY PRN 12/04/23 [History] Acetaminophen Tab [Tylenol] 1,000 mg PO Q6HR PRN tab 01/08/24 [Rx] Amiodarone [Cordarone] 400 mg PO BID #56 tab 01/08/24 [Rx] Ascorbic Acid [Vitamin C] 500 mg PO BID-W/MEALS #14 tab 03/19/24 [Rx] Aspirin 325 mg PO DAILY #30 tab 01/08/24 [Rx] Clopidogrel [Plavix] 75 mg PO DAILY #30 tab 01/08/24 [Rx] Ferrous Sulfate [Iron (65 MG Elemental)] 325 mg PO BID-W/MEALS #14 tab 01/08/24 [Rx] Ibuprofen [Motrin] 400 mg PO Q6HR PRN #28 tab 01/08/24 [Rx] Losartan [Cozaar] 12.5 mg PO DAILY@1400 #30 tab 01/08/24 [Rx] Metoprolol Tartrate [Lopressor] 25 mg PO BID #60 tab 01/08/24 [Rx] Pantoprazole [Protonix] 40 mg PO BID-W/MEALS #60 tab 01/08/24 [Rx] amLODIPine [Norvasc] 2.5 mg PO DAILY@1200 #30 tab 01/08/24 [Rx] Follow up Appointment(s)/Referral(s): Mattie Dyson MD [STAFF PHYSICIAN] - 01/22/24 10:00 am Will Ojeda MD [STAFF PHYSICIAN] - 01/23/24 9:15 am Rehab [facility] [NON-STAFF] - 4 Weeks (You will receive a phone call in approximately 4-6 weeks for evaluation for cardiac rehab) Sunny Conde, [NON-STAFF] - 1 Week (Sunny Goshennova will call you to arrange a visit) [facility] [Primary Care Provider] - 01/15/24 2:30 pm Bryson Bunn MD [STAFF PHYSICIAN] - 01/30/24 2:00 pm Venkat Veloz NPC [Nurse Practitioner] - 01/15/24 11:00 am (You will be seen in the surgeon's office behind the hospital in [facility], [address]. Office phone number is ) Ambulatory/Diagnostic Orders: Complete Blood Count w/diff [LAB.AMB] Time Frame: 01/11/24, Facility: [facility], Location: Laboratory [facility] Comprehensive Metabolic Panel [LAB.AMB] Time Frame: 01/11/24, Facility: [facility], Location: Laboratory [facility] Activity/Diet/Wound Care/Special Instructions: DISCHARGE INSTRUCTIONS: 1. No driving for 4 weeks, or until physician gives their ok. 2. The patient should sleep in their own bed, no medical bed needed. 3. Stairs are not an issue. If the bedroom is upstairs, it is advised that the patient go up at night and down in the morning for the first week. Go slowly, using handrail and take 1 step at a time. 4. HEAVEN hose are to be worn for 30 days post surgery or until physician discontinues. 5. Heart hugger is to be worn 100% of the time until physician discontinues.(except when showering) 6. No lifting, pushing, or pulling more than 10 pounds for 12 weeks. The physician will advise of any restriction changes. 7. The patient is expected to continue the prescribed walking program. 8. Continue pain control per as needed orders. 9. Continue with incentive spirometry and splinting/heart hugger until otherwise directed by the physician. 10. Must shower daily using liquid antibacterial soap 11. Routine sternal incision care. No powders, lotions, ointments on incisions. No dressings are necessary on incisions unless they are draining. Dermabond tape is to remain on sternal incision until surgeon follow-up. 12. Please call surgeon/BLOOMING MILL SUPERVISOR for temp greater than 101 F or purulent drainage from incisions. 13. You should weigh yourself daily, record and bring log with you to follow up appointments. 14. All prescriptions given by surgeon for 30 days. Refills need to be filled through roll plugger/primary care physician. 15. A Red armband has been placed on the patient. It should be worn for 30 days post discharge from surgery and will be removed by the cardiac surgeons. If an ER visit is necessary, please make sure the number on the Red armband is called before going to ER. 16. You have been referred to and are expected to begin Cardiac Rehab in approximately 4-6 weeks. 17. Quitting smoking is the most important step you can take to improve your health. For additional information and assistance to quit smoking, please call the [place] tobacco quit line (8-554-NPIS-NOW/ ) or online: [email or web address]-to-qu it-[email or web address] HOME HEALTH SERVICES TO PROVIDE: RN SKILLED HOME CARE SERVICES FOR POST-OP SURGICAL PATIENTS WITH THE FOLLOWING: Coronary Artery Bypass Surgery (CABG), Mitral Valve Replacement/Repair ( MVR), Aortic Valve Replacement/Repair (AVR) RN TO CONTINUE EDUCATION FROM ``ROAD TO A HEALTH HEART PATIENT EDUCATION MANUAL (GIVEN TO PATIENT IN THE HOSPITAL) MEDICATION RECONCILIATION WITH EDUCATION NEEDED ON FIRST HOME VISIT EMPHASIZE IMPORTANCE OF WEARING BREAST SUPPORT/HEART HUGGER ENCOURAGE USE OF INCENTIVE SPIROMETER 10 X EVERY HOUR WHILE AWAKE ENCOURAGE UTILIZATION OF LOWER EXTREMITY COMPRESSION STOCKINGS/HEAVEN HOSE and ELEVATE LEGS ABOVE LEVEL OF HEART WHILE AT REST. ENCOURAGE AMBULATION 3-5x/day INCREASING TOLERATES, WHILE AVOIDING EXTREMES IN TEMPERATURE FREQUENCY: RN TO OPEN THE PATIENT WITHIN 24 HOURS OF DISCHARGE FROM THE HOSPITAL WITH TELEHEALTH INSTALLED AT [facility], RN TO VISIT 2-3 X A WEEK FOR 4 WEEKS ESTABLISHED BY PATIENT NEEDS. LABORATORY: CBC, CMP TO BE DRAWN ON THE THIRD DAY HOME, (RAN STAT) FAX RESULTS TO [phone]. TELEHEALTH PARAMETERS: WEIGHT: NOTIFY MD OF WEIGHT GAIN OF 2 LBS IN 24 HOURS OR 5 LBS IN ONE WEEK HR: NOTIFY MD OF HR <55 BPM OR HR>100 BPM BP: NOTIFY MD IF BP <90/55 OR BP>140/100 O2 SAT: NOTIFY MD IF PO2<93% ON ROOM AIR SEND TELEHEALTH REPORT TO GAUGE MAKER APPRENTICE AND CARDIOVASCULAR SURGEON THE FIRST WEEK OF CARE AND THEN BI-WEEKLY. PLEASE ADDITIONALLY COMMUNICATE ANY ABNORMALS AND NEW FINDINGS TO THE SURGEONS OFFICE. Discharge Disposition: HOME WITH HOME HEALTH SERVICES
== END 2024-01-08 13:10 | disposition home health service (06) | DRG 166 ==
LOC: 2ORMAIN 05:43 → 2SICU 13:12
PROVIDERS: ADMIT Thoracic Surgery (Cardiothoracic Vascular Surgery); ATTEND Thoracic Surgery (Cardiothoracic Vascular Surgery)
PROC: 06BQ4ZZ Excision of Left Saphenous Vein, Percutaneous Endoscopic Approach (ICD-10-PCS; 2024-01-04)
PROC: 02L70CK Occlusion of Left Atrial Appendage with Extraluminal Device, Open Approach (ICD-10-PCS; 2024-01-04)
PROC: B24BZZ4 Ultrasonography of Heart with Aorta, Transesophageal (ICD-10-PCS; 2024-01-04)
PROC: 4A0305C Measurement of Arterial Flow, Coronary, Open Approach (ICD-10-PCS; 2024-01-04)
PROC: 3E033XZ Introduction of Vasopressor into Peripheral Vein, Percutaneous Approach (ICD-10-PCS; 2024-01-04)
PROC: 03BC4ZZ Excision of Left Radial Artery, Percutaneous Endoscopic Approach (ICD-10-PCS; 2024-01-04)
PROC: 30233J1 Transfusion of Nonautologous Serum Albumin into Peripheral Vein, Percutaneous Approach (ICD-10-PCS; 2024-01-04)
PROC: 02100ZC Bypass Coronary Artery, One Artery from Thoracic Artery, Open Approach (ICD-10-PCS; principal; 2024-01-04 08:00)
PROC: 02100AW Bypass Coronary Artery, One Artery from Aorta with Autologous Arterial Tissue, Open Approach (ICD-10-PCS; 2024-01-04 08:00)
PROC: 021009W Bypass Coronary Artery, One Artery from Aorta with Autologous Venous Tissue, Open Approach (ICD-10-PCS; 2024-01-04 08:00)
DX: I25.118 Atherosclerotic heart disease of native coronary artery with other forms of angina pectoris (principal); J96.01 Acute respiratory failure with hypoxia; E11.40 Type 2 diabetes mellitus with diabetic neuropathy, unspecified; E11.65 Type 2 diabetes mellitus with hyperglycemia; M06.9 Rheumatoid arthritis, unspecified; I11.9 Hypertensive heart disease without heart failure; E66.9 Obesity, unspecified; Z68.34 Body mass index [BMI] 34.0-34.9, adult; E03.9 Hypothyroidism, unspecified; D62 Acute posthemorrhagic anemia; E78.5 Hyperlipidemia, unspecified; J44.89 Other specified chronic obstructive pulmonary disease; M54.9 Dorsalgia, unspecified; M54.2 Cervicalgia; G89.29 Other chronic pain; D72.828 Other elevated white blood cell count; D69.59 Other secondary thrombocytopenia; I65.23 Occlusion and stenosis of bilateral carotid arteries; Z22.321 Carrier or suspected carrier of Methicillin susceptible Staphylococcus aureus; Z79.82 Long term (current) use of aspirin; Z87.891 Personal history of nicotine dependence; Z82.49 Family history of ischemic heart disease and other diseases of the circulatory system; Z95.5 Presence of coronary angioplasty implant and graft; I25.2 Old myocardial infarction; Z79.899 Other long term (current) drug therapy; Z86.018 Personal history of other benign neoplasm; Z79.84 Long term (current) use of oral hypoglycemic drugs
CPT/HCPCS: 71045; 71046; 80048; 80053; 81025; 82330; 82805; 83735; 85025; 85027; 85610; 85730; 86850; 86900; 86901; 86920; 87070; 87205; 88302; 94002; 94640

== ENCOUNTER 2024-01-21 22:21 | Observation (INO) | payer OTHER ==
--- NOTE | 2024-01-21 23:28 | ED ---
Chest Pain HPI - General Chief Complaint: Chest Pain Stated Complaint: Chest pain Time Seen by Provider: 01/21/24 22:34 Source: EMS Mode of arrival: EMS Limitations: no limitations - History of Present Illness Initial Comments: 53-year-old female with recent history of CABG three-vessel on 03 January who presents to the emergency department reporting increasing weakness, shortness of breath and chest pain. Chest pain developed tonight. Admits to nausea with vomiting. Has been unable to take her medications. Admits to shortness of breath. No oxygen use at home. Denies abdominal pain. Other than today she has been taking medications as directed. Denies any lower extremity edema. She denies a cough. No other alleviating, precipitating or modifying factors - Related Data Home Medications Medication Instructions Recorded Confirmed Atorvastatin [Lipitor] 80 mg PO HS 05/05/20 01/04/24 metFORMIN HCL [Glucophage] 1,000 mg PO DAILY 01/19/22 01/04/24 Albuterol Inhaler [Ventolin Hfa 2 puff INHALATION RT-QID PRN 12/02/23 01/04/24 Inhaler] Ondansetron Odt [Zofran ODT] 4 mg PO Q12HR PRN 12/02/23 01/04/24 Docusate [Colace] 100 mg PO DAILY PRN 12/04/23 01/04/24 Previous Rx's Medication Instructions Recorded Acetaminophen Tab [Tylenol] 1,000 mg PO Q6HR PRN tab 01/08/24 Amiodarone [Cordarone] 400 mg PO BID #56 tab 01/08/24 Ascorbic Acid [Vitamin C] 500 mg PO BID-W/MEALS #14 tab 01/08/24 Aspirin 325 mg PO DAILY #30 tab 01/08/24 Clopidogrel [Plavix] 75 mg PO DAILY #30 tab 01/08/24 Ferrous Sulfate [Iron (65 MG 325 mg PO BID-W/MEALS #14 tab 01/08/24 Elemental)] Ibuprofen [Motrin] 400 mg PO Q6HR PRN #28 tab 01/08/24 Losartan [Cozaar] 12.5 mg PO DAILY@1400 #30 tab 01/08/24 Metoprolol Tartrate [Lopressor] 25 mg PO BID #60 tab 01/08/24 Pantoprazole [Protonix] 40 mg PO BID-W/MEALS #60 tab 01/08/24 amLODIPine [Norvasc] 2.5 mg PO DAILY@1200 #30 tab 01/08/24 Allergies Allergy/AdvReac Type Severity Reaction Status Date / Time peanut AdvReac HIVES Verified 01/21/24 22:28 rice AdvReac Rash/Hives Verified 01/21/24 22:28 seasonal Allergy Rash/Hives Uncoded 01/21/24 22:28 Review of Systems ROS Statement: Those systems with pertinent positive or pertinent negative responses have been documented in the HPI. ROS Other: All systems not noted in ROS Statement are negative. Past Medical History Past Medical History: Asthma, COPD, Diabetes Mellitus, Hyperlipidemia, Hypertension, Myocardial Infarction (RI), Musculoskeletal Disorder, Rheumatoid Arthritis (RA), Thyroid Disorder Additional Past Medical History / Comment(s): Back Pain, right shoulder pain, Hx Pituitary Tumor, BENIGN. Thyroid disorder. 3 heart attacks-most recent March 2022, 3 stents total, neuropathy Last Myocardial Infarction Date:: 10/29/22 History of Any Multi-Drug Resistant Organisms: None Reported Past Surgical History: Section, Coronary Bypass/CABG, Heart Catheterization With Stent, Tubal Ligation Additional Past Surgical History / Comment(s): Pituitary Tumor Removed. colonoscopy, PAIN CLINIC PROCEDURES stents x3 c section x4 Past Anesthesia/Blood Transfusion Reactions: No Reported Reaction Date of Last Stent Placement:: March 2022 Past Psychological History: Anxiety, Depression Smoking Status: Never smoker Past Alcohol Use History: None Reported Past Drug Use History: None Reported - Past Family History Mother History Unknown: Yes Family Medical History: Deep Vein Thrombosis (DVT) Additional Family Medical History / Comment(s): Mother is alive at age 67 with history of coronary artery disease and three-vessel CABG. Daughter(s) History Unknown: Yes Family Medical History: Deep Vein Thrombosis (DVT) Additional Family Medical History / Comment(s): Patient has a total of 9 children with no major medical problems. Father History Unknown: Yes Family Medical History: Cancer Additional Family Medical History / Comment(s): Father is alive with no history of coronary artery disease. History of Prostate Cancer Sister(s) History Unknown: Yes Additional Family Medical History / Comment(s): The patient has 4 sisters and 1 brother. One sister had a myocardial infraction at age 40. General Exam Limitations: no limitations General appearance: alert, in no apparent distress Head exam: Present: atraumatic, normocephalic, normal inspection Eye exam: Present: normal appearance, PERRL, EOMI. Absent: scleral icterus, conjunctival injection, periorbital swelling ENT exam: Present: normal exam, mucous membranes moist Neck exam: Present: normal inspection. Absent: tenderness, meningismus, lymphadenopathy Respiratory exam: Present: decreased breath sounds (Left lower lobe). Absent: respiratory distress, wheezes, rales, rhonchi, stridor Cardiovascular Exam: Present: regular rate, normal rhythm, normal heart sounds. Absent: systolic murmur, diastolic murmur, rubs, gallop, clicks GI/Abdominal exam: Present: soft, normal bowel sounds. Absent: distended, tenderness, guarding, rebound, rigid Extremities exam: Present: normal inspection, full ROM, normal capillary refill. Absent: tenderness, pedal edema, joint swelling, calf tenderness Back exam: Present: normal inspection Neurological exam: Present: alert, oriented X3, CN II-XII intact Psychiatric exam: Present: normal affect, normal mood Skin exam: Present: warm, dry, intact, normal color. Absent: rash Course Vital Signs 01/21/24 01/22/24 01/22/24 22:26 01:02 03:21 Temperature 98.5 F 98.7 F Pulse Rate 68 64 57 L Respiratory 16 18 16 Rate Blood Pressure 174/92 145/83 158/98 O2 Sat by Pulse 90 L 100 97 Oximetry 01/22/24 01/22/24 04:24 06:38 Temperature 97.8 F Pulse Rate 70 61 Respiratory 16 18 Rate Blood Pressure 128/71 140/80 O2 Sat by Pulse 98 100 Oximetry - Reevaluation(s) Reevaluation #1: Attempted to call the cardiothoracic line to discuss the case with cardiothoracics. Dr. Bunn is paged. Then attempted to independently page Bacilio Veloz and Cici dimas. Cici Manuel does report that Dr. Bunn is on-call. She does provide his phone number. Dr. Bunn does answer his phone. He was agreeable fo r the patient to be admitted to obs 01/22/24 01:33 Chest Pain MDM - MDM Was pt. sent in by a medical professional or institution (, PA, OUTSIDE [employer], urgent care, hospital, or [facility]...) When possible be specific @ -No Did you speak to anyone other than the patient for history (EMS, parent, family, police, friend...)? What history was obtained from this source @ -Spoke with EMS for history Did you review nursing and triage notes (agree or disagree)? Why? @ -I reviewed and agree with nursing and triage notes Were old charts reviewed (outside hosp., previous admission, EMS record, old EKG, old radiological studies, urgent care reports/EKG's, [facility] records)? Report findings @ -I reviewed patient's discharge summary from the as well as her chest x- ray prior to discharge Differential Diagnosis (chest pain, altered mental status, abdominal pain women, abdominal pain men, vaginal bleeding, weakness, fever, dyspnea, syncope, headache, dizziness, GI bleed, back pain, seizure, CVA, palpatations, mental health, musculoskeletal)? @ -Differential Dyspnea: Coronary syndrome, arrhythmia, tamponade, asthma, COPD, pulmonary embolism, pneumonia, pneumothorax, pulmonary effusion, anaphylaxis, diabetic ketoacidosis, flailed chest, pulmonary contusion, diaphragmatic rupture, anemia, neuromuscular, this is not meant to be an all-inclusive list. EKG interpreted by me (3pts min.). @ -Yes and demonstrates sinus rhythm with a rate of 68. MA interval 133. QRS 93. QTc of 469. No acute ST segment elevations or depressions X-rays interpreted by me (1pt min.). @ -Yes and demonstrates moderate left-sided pleural effusion with multifocal opacities concerning for pneumonia CT interpreted by me (1pt min.). @ -None done U/S interpreted by me (1pt. min.). @ -None done What testing was considered but not performed or refused? (CT, X-rays, U/S, labs)? Why? @ -None What meds were considered but not given or refused? Why? @ -None Did you discuss the management of the patient with other professionals (professionals i.e. , PA, [employer], lab, RT, psych nurse, social services technician, insights analyst, teacher, maritime officer, casework supervisor)? Give summary @ -Spoke with Dr. Clayton who admitted the patient. Also spoke with Dr. Bunn who was agreeable to admitting the patient for obvious Was smoking cessation discussed for >3mins.? @ -No Was critical care preformed (if so, how long)? @ -No Were there social determinants of health that impacted care today? How? (Homelessness, low income, unemployed, alcoholism, drug addiction, transpor tation, low edu. Level, literacy, decrease access to med. care, mcc, rehab)? @ -No Was there de-escalation of care discussed even if they declined (Discuss DNR or withdrawal of care, Hospice)? DNR status @ -No What co-morbidities impacted this encounter? (DM, HTN, Smoking, COPD, CAD, Cancer, CVA, ARF, Chemo, Hep., AIDS, mental health diagnosis, sleep apnea, morbid obesity)? @ -Coronary disease status post CABG Was patient admitted / discharged? Hospital course, mention meds given and route, prescriptions, significant lab abnormalities, going to OR and other pertinent info. @ -Upon arrival patient was placed into room 18. Thorough history and physical exam was performed. Patient placed on continuous pulse ox and cardiac monitoring. Twelve-lead EKG was obtained. Laboratory studies were conducted. Chest x-ray was performed. Chest x-ray does demonstrate large left-sided pleural effusion. Multifocal opacities concerning for pneumonia. Patient was given a dose of antibiotics after blood cultures were obtained. Spoke with Dr. Bunn. Recommended 20 mg of Lasix. Requested pulmonary consult for possible thoracentesis. Patient admitted to abs in stable condition Undiagnosed new problem with uncertain prognosis? @ -No Drug Therapy requiring intensive monitoring for toxicity (Heparin, Nitro, Insulin, Cardizem)? @ -No Were any procedures done? @ -No Diagnosis/symptom? @ -Acute respiratory insufficiency, left pleural effusion, possible pneumonia Acute, or Chronic, or Acute on Chronic? @ -Acute Uncomplicated (without systemic symptoms) or Complicated (systemic symptoms)? @ -Complicated Side effects of treatment? @ -No Exacerbation, Progression, or Severe Exacerbation? @ -No Poses a threat to life or bodily function? How? (Chest pain, [place], RI, pneumonia, PE, COPD, DKA, ARF, appy, cholecystitis, CVA, Diverticulitis, Homicidal, Suicidal, threat to staff... and all critical care pts) @ -No Disposition Clinical Impression: Chest pain, Pleural effusion, Multifocal pneumonia Disposition: ADMITTED IP TO THIS HOSP Condition: Stable Is patient prescribed a controlled substance at d/c from ED?: No Time of Disposition: 01:28 Decision to Admit Reason: Admit from EC Decision Date: 01/22/24 Decision Time: :
[2024-01-21] MEDS: HYDROmorphone 1 MG/ML 1 ML SYRINGE IM STA (23:46)
[2024-01-21] MEDS: TRIMETHOBENZAMIDE 100 MG/ML 2 ML VIAL IM STA (23:48)
--- NOTE | 2024-01-21 23:55 | XR ---
EXAM: XR Chest, 2 Views CLINICAL HISTORY: ITS.REASON XR Reason: Chest Pain TECHNIQUE: Frontal and lateral views of the chest. COMPARISON: [id number] 24. FINDINGS: Lungs: See below. Pleural space: Moderate LEFT pleural effusion. Patchy bilateral airspace consolidations, consistent with multilobar pneumonia. No pneumothorax. Heart: Cardiomegaly. Mediastinum: Unremarkable. Normal mediastinal contour. Bones/joints: Sternotomy wires. No acute fracture. Soft tissues: Appendage clip. IMPRESSION: Moderate LEFT pleural effusion. Patchy bilateral airspace consolidations, consistent with multilobar pneumonia.
[2024-01-22 00:07] LABS: Basophils % (A) 0 %; Eosinophils # (A) 0.1 k/uL (0-0.7); Eosinophils % (A) 1 %; HCT 29.1 % (34.0-46.0); Hypochromasia Moderate; Lymphocytes # (A) 1.7 k/uL (1.0-4.8); Lymphocytes % (A) 19 %; MCH 27.7 pg (25.0-35.0); MCHC 30.8 g/dL (31.0-37.0); MCV 89.8 fL (80.0-100.0); Mean Platelet Volume 7.4; Monocytes # (A) 0.3 k/uL (0-1.0); Monocytes % (A) 3 %; Neutrophils # (A) 6.6 k/uL (1.3-7.7); Neutrophils % (A) 75 %; Platelet Count 484 k/uL (150-450); Poikilocytosis Slight; RBC 3.24 m/uL (3.80-5.40); RDW 15.7 % (11.5-15.5); WBC 8.9 k/uL (3.8-10.6)
[2024-01-22 00:18] LABS: ALT 25 U/L (4-34); AST 19 U/L (14-36); African American GFR (CKD) >90 (>60 ml/min/1.73 sqM); Albumin 3.1 g/dL (3.5-5.0); Alkaline Phosphatase 122 U/L (38-126); Anion Gap 7 mmol/L; Blood Urea Nitrogen 9 mg/dL (7-17); Calcium 8.5 mg/dL (8.4-10.2); Carbon Dioxide 28 mmol/L (22-30); Chloride 105 mmol/L (98-107); Glucose 140 mg/dL (74-99); Magnesium 1.2 mg/dL (1.6-2.3); Non-African American GFR(CKD) >90 (>60 ml/min/1.73 sqM); Potassium 3.5 mmol/L (3.5-5.1); Sodium 140 mmol/L (137-145); Total Bilirubin 0.4 mg/dL (0.2-1.3)
[2024-01-22 00:27] LABS: NT-Pro-B-Type Natriuretic Pept 2020 pg/mL
[2024-01-22 00:47] LABS: INR 1.1 (<1.2); Partial Thromboplastin Time 24.7 sec (22.0-30.0); Prothrombin Time 11.5 sec (10.0-12.5)
[2024-01-22] MEDS: MAGNESIUM SULFATE-D5W PMX 1 GM in DEXTROSE/WATER 1 100ML.BAG IVPB SCH (01:01)
[2024-01-22] MEDS ORDERED: NALOXONE 0.4 MG/ML 1 ML VIAL IV PRN (01:35)
[2024-01-22] MEDS ORDERED: PNEUMONIA PROTOCOL UTILIZED 1 EACH MISC PO PRN (01:54)
[2024-01-22] MEDS: FUROSEMIDE 10 MG/ML 2 ML VIAL IV STA (02:09)
--- NOTE | 2024-01-22 05:02 | P.HPIM ---
History of Present Illness H&P Date: 01/22/24 Chief Complaint: Chest pain 53-year-old female with hypertension COPD diabetes mellitus subarachnoid tumor coming in for evaluation of severe chest pain with shortness of breath Patient reports that she had her surgery done about 2 to 3 weeks ago since then she has few days ago she was doing well but then noticed some swelling denies any fevers or chills denies any nausea or vomiting denies any chest pain or trouble breathing denies any abdominal pain changes in urinary or bowel habits Patient denies any recent travel hospital stay or blood clot formation Patient had her CABG surgery done about 2 weeks ago tolerated procedure well initially went home was doing well but then started having some trouble breathing along with episodes of chest pain denies any associated cough or hemoptysis Patient also reports some left calf tenderness extending all the way to the distal thigh review of systems Pertinent positives as noted in HPI. All other systems were reviewed and are negative on exam Constitutional: No acute distress, conversant, pleasant Eyes: Anicteric sclerae, moist conjunctiva, Pupils equal round reactive to light ENMT: NC/AT Oropharynx clear, no erythema, or exudates Neck: Supple, no masses, or JVD No carotid bruits No thyromegaly Lungs: Decreased breath sounds over left midlung and below Clear to percussion Normal respiratory effort, no accessory muscle use Cardiovascular: Heart regular in rate and rhythm, No murmurs, gallops, or rubs No peripheral edema Abdominal: Soft Nontender, no guarding, rebound or rigidity Abdomen moving with respiration Normoactive bowel sounds Extremities: No digital cyanosis No clubbing Pedal pulses intact and symmetrical Radial pulses intact and symmetrical Tenderness to palpation of the left calf no significant swelling no skin changes no open wounds Psychiatric: Alert and oriented to person, place and time Neuro Muscles Strength 5/5 in all 4 extremities Sensation to light touch grossly present throughout Cranial nerves II-XII grossly intact Past Medical History Past Medical History: Asthma, COPD, Diabetes Mellitus, Hyperlipidemia, Hypertension, Myocardial Infarction ([place]), Musculoskeletal Disorder, Rheumatoid Arthritis ([place]), Thyroid Disorder Additional Past Medical History / Comment(s): Back Pain, right shoulder pain, Hx Pituitary Tumor, BENIGN. Thyroid disorder. 3 heart attacks-most recent March 2022, 3 stents total, neuropathy Last Myocardial Infarction Date:: 10/29/22 History of Any Multi-Drug Resistant Organisms: None Reported Past Surgical History: Section, Coronary Bypass/CABG, Heart Catheterization With Stent, Tubal Ligation Additional Past Surgical History / Comment(s): Pituitary Tumor Removed. colonoscopy, PAIN CLINIC PROCEDURES stents x3 c section x4 Past Anesthesia/Blood Transfusion Reactions: No Reported Reaction Date of Last Stent Placement:: March 2022 Past Psychological History: Anxiety, Depression Smoking Status: Never smoker Past Alcohol Use History: None Reported Past Drug Use History: None Reported - Past Family History Mother History Unknown: Yes Family Medical History: Deep Vein Thrombosis (DVT) Additional Family Medical History / Comment(s): Mother is alive at age 67 with history of coronary artery disease and three-vessel CABG. Daughter(s) History Unknown: Yes Family Medical History: Deep Vein Thrombosis (DVT) Additional Family Medical History / Comment(s): Patient has a total of 9 children with no major medical problems. Father History Unknown: Yes Family Medical History: Cancer Additional Family Medical History / Comment(s): Father is alive with no history of coronary artery disease. History of Prostate Cancer Sister(s) History Unknown: Yes Additional Family Medical History / Comment(s): The patient has 4 sisters and 1 brother. One sister had a myocardial infraction at age 40. Medications and Allergies Home Medications Medication Instructions Recorded Confirmed Type Atorvastatin [Lipitor] 80 mg PO HS 05/05/20 01/04/24 History metFORMIN HCL [Glucophage] 1,000 mg PO DAILY 01/19/22 01/04/24 History Albuterol Inhaler [Ventolin Hfa 2 puff INHALATION RT-QID PRN 12/02/23 01/04/24 History Inhaler] Ondansetron Odt [Zofran ODT] 4 mg PO Q12HR PRN 12/02/23 01/04/24 History Docusate [Colace] 100 mg PO DAILY PRN 12/04/23 01/04/24 History Acetaminophen Tab [Tylenol] 1,000 mg PO Q6HR PRN tab 01/08/24 Rx Amiodarone [Cordarone] 400 mg PO BID #56 tab 01/08/24 Rx Ascorbic Acid [Vitamin C] 500 mg PO BID-W/MEALS #14 tab 01/08/24 Rx Aspirin 325 mg PO DAILY #30 tab 01/08/24 Rx Clopidogrel [Plavix] 75 mg PO DAILY #30 tab 01/08/24 Rx Ferrous Sulfate [Iron (65 MG 325 mg PO BID-W/MEALS #14 tab 01/08/24 Rx Elemental)] Ibuprofen [Motrin] 400 mg PO Q6HR PRN #28 tab 01/08/24 Rx Losartan [Cozaar] 12.5 mg PO DAILY@1400 #30 tab 01/08/24 Rx Metoprolol Tartrate [Lopressor] 25 mg PO BID #60 tab 01/08/24 Rx Pantoprazole [Protonix] 40 mg PO BID-W/MEALS #60 tab 01/08/24 Rx amLODIPine [Norvasc] 2.5 mg PO DAILY@1200 #30 tab 01/08/24 Rx Allergies Allergy/AdvReac Type Severity Reaction Status Date / Time peanut AdvReac HIVES Verified 01/21/24 22:28 rice AdvReac Rash/Hives Verified 01/21/24 22:28 seasonal Allergy Rash/Hives Uncoded 01/21/24 22:28 Physical Exam Vitals: Vital Signs Temp Pulse Resp BP Pulse Ox 01/22/24 04:24 70 16 128/71 98 01/22/24 03:21 98.7 F 57 L 16 158/98 97 01/22/24 01:02 64 18 145/83 100 01/21/24 22:26 98.5 F 68 16 174/92 90 L Intake and Output 01/21/24 01/21/24 01/22/24 14:59 22:59 06:59 Other: Weight 72.575 kg Results CBC & Chem 7: 01/21/24 22:35 01/21/24 22:35 Labs: Abnormal Lab Results - Last 24 Hours (Table) 01/21/24 01/21/24 01/21/24 Range/Units 22:35 22:35 22:35 RBC 3.24 L (3.80-5.40) m/uL Hgb 9.0 L (11.4-16.0) gm/dL Hct 29.1 L (34.0-46.0) % MCHC 30.8 L (31.0-37.0) g/dL RDW 15.7 H (11.5-15.5) % Plt Count 484 H (150-450) k/uL Creatinine 0.50 L (0.52-1.04) mg/dL Glucose 140 H (74-99) mg/dL Magnesium 1.2 L (1.6-2.3) mg/dL Troponin I 0.281 H* (0.000-0.034) ng/mL Total Protein 6.0 L (6.3-8.2) g/dL Albumin 3.1 L (3.5-5.0) g/dL Assessment and Plan Assessment: 53-year-old female recently had open heart surgery and triple-vessel bypass tolerated procedure well coming back with difficulty breathing and some chest pain discussed case with ED doctor and accepted the admission for left pleural effusion for further workup Shortness of breath on exertion secondary to open heart surgery with triple vessel bypass Management per primary cardiothoracic team Left pleural effusion Pulmonary service for evaluation of possible left-sided chest tube Supplemental oxygen as needed Chest x-ray showing mild left lung fluid extending into the left lung base Slightly elevated troponin 0.281 continue to trend Otherwise blood work showing hemoglobin 9 white count 8.9 Sodium 140 potassium 3.5 BUN 9 creatinine 0.5 unremarkable Hypomagnesemia Magnesium 1.1 replace and follow-up level Verify home medications Full code DVT prophylaxis heparin subcu 3 times daily
[2024-01-22] MEDS: ACETAMINOPHEN TAB 500 MG TAB PO PRN (06:16)
[2024-01-22 06:44] VITALS: BP 140/80; PULSE 61; RESP 18; TEMP 97.8
[2024-01-22] MEDS ORDERED: ALBUTEROL NEBULIZED 2.5 MG/3 ML INHALATION PRN (07:55)
[2024-01-22] MEDS ORDERED: DOCUSATE 100 MG CAP PO PRN (07:55)
--- NOTE | 2024-01-22 07:58 | US ---
EXAMINATION TYPE: US venous doppler duplex LE LT DATE OF EXAM: 01/22/2024 7:46 AM COMPARISON: NONE CLINICAL INDICATION: Female, 53 years old with history of dvt; No hx of DVT. Patient takes aspirin. S welling x 1 day. SIDE PERFORMED: Left TECHNIQUE: The lower extremity deep venous system is examined utilizing real time linear array sonog dereje with graded compression, doppler sonography and color-flow sonography. VESSELS IMAGED: Common Femoral Vein Deep Femoral Vein Greater Saphenous Vein * Femoral Vein Popliteal Vein Small Saphenous Vein * Proximal Calf Veins (* superficial vessels) Left Leg: Internal echoes seen within GSV with color defect seen. GSV does not appear to compress . Thrombus appears to be 0.5 cm from the junction with the CFV deep system. Thrombus is seen within the upper thigh GSV. No evidence of thrombus in remaining vessels. Impression: Findings are compatible with superficial thrombophlebitis. No evidence for DVT.
--- NOTE | 2024-01-22 08:21 | US ---
EXAMINATION TYPE: US chest DATE OF EXAM: 01/22/2024 COMPARISON: NONE CLINICAL INDICATION: Female, 53 years old with history of brunilda for thoracentesis; TECHNIQUE: Targeted ultrasound of the posterior lower bilateral hemithoraces EXAM MEASUREMENTS: Right Pleural Effusion pocket size: 0 cm Left Pleural Effusion pocket size: 5.9 cm Left skin surface to fluid distance: 3.5 cm Lung seen within anterior portion of fluild pocket Right side not marked for possible thoracentesis outside the dept. Left side marked for possible thoracentesis outside the dept. Pulmonologists are able to review the images in the patient?s EMR. IMPRESSIONS: As above
[2024-01-22] MEDS: METOPROLOL TARTRATE 25 MG TAB PO SCH (08:54)
[2024-01-22] MEDS: FERROUS SULFATE 325 MG TAB PO SCH (08:54)
[2024-01-22] MEDS: PANTOPRAZOLE 40 MG TABLET PO SCH (08:54)
[2024-01-22] MEDS: CLOPIDOGREL 75 MG TAB PO SCH (08:54)
[2024-01-22] MEDS: ASPIRIN 325 MG TAB PO SCH (08:54)
[2024-01-22] MEDS: AMIODARONE 200 MG TAB PO SCH (08:55)
--- NOTE | 2024-01-22 09:17 | XR ---
EXAMINATION TYPE: XR chest 1V portable DATE OF EXAM: 01/22/2024 HISTORY: S/P thoracentesis on the left COMPARISON: 01/21/2024 TECHNIQUE: Single view of the chest is submitted. FINDINGS: Demonstrated are scattered senescent parenchymal change. There is pulmonary venous congestion scatte red infiltrates. No evidence for left-sided pneumothorax. The heart is stable. Hilar and mediastinal structures are within normal limits. Degenerative changes are seen of the dorsal spine. IMPRESSION: 1. There is pulmonary venous congestion with scattered infiltrates. No evidence for left-sided pneum othorax.
--- NOTE | 2024-01-22 09:24 | OP ---
OPERATIVE REPORT DATE OF SERVICE : PROCEDURE: Left-sided thoracentesis. PREOPERATIVE DIAGNOSIS: Left pleural effusion. POSTOPERATIVE DIAGNOSIS: Left pleural effusion. INDICATION: Pleural effusion. A time-out was completed verifying correct patient, procedure, site, positioning , and implant (s) or special equipment if applicable. Ultrasound guidance was/was not used and appropriate fluid pocket was identified and marked. Patient was positioned, prepped and draped in usual sterile fashion. Lidocaine was used to anesthetize the area. A Thoracentesis catheter was introduced into the pleural space and fluid was removed. Blood loss was none. A chest x-ray was ordered to evaluate for pneumothorax. The patient's procedure took place in ER, room 18. The posterior chest was marked by ultrasound. Total Fluid Removed: Roughly 950 mL of bloody fluid was removed from the left pleural space. Color of Fluid: bloody_. The fluid will be sent for analysis. In addition, a chest x-ray was ordered to rule out pneumothorax. There was no immediate complication. Patient tolerated the procedure well and there were no complications. First surgical consultant was Dr. Mahogany Rivas. [id number] / KOFIN: [id number] / [id number]
[2024-01-22 09:50] LABS: Glucose,Whole Blood 156 mg/dL (70-110)
[2024-01-22] MEDS: FUROSEMIDE 40 MG TAB PO SCH (10:00)
[2024-01-22] MEDS: POTASSIUM BICARBONATE/CIT AC 20 MEQ TABLET.EFF PO ONE (10:00)
--- NOTE | 2024-01-22 10:43 | P.GSCN ---
History of Present Illness Consult date: 01/22/24 Reason for Consult: Short of breath, known to our service Requesting physician: Ashli Schmid History of present illness: The patient is a 53-year-old -[place] female patient who follows outpatient with the [facility] for primary care and Dr. Ojeda for cardiology. She has a previous medical history of coronary artery disease with previous myocardial infarction and prior stenting of the left anterior d escending artery as well as left circumflex/OM, stable angina, status post three-vessel off-pump CABG 01/04/24, hypertension, hyperlipidemia, diabetes, hypothyroid, bilateral internal carotid artery stenosis, asthma, chronic back and neck pain, previous marijuana and tobacco dependence, syncope, and family history of premature coronary artery disease. She was hospitalized recently after her open heart surgery and was discharged to home with home care on January 08, 2024. She has been recovering at home without incident and just saw Dr. Bunn in the office last . Apparently she felt increasingly short of breath over the last 24 hours show she reported to the emergency room at [facility] last night. Chest x-ray revealed left-sided pleural effusion which is common and expected after open heart surgery. She remains afebrile, she has no leukocytosis, no evidence of infection or pneumonia. She was given IV Lasix and was to be admitted for observation with consultation placed to pulmonology and cardiothoracic surgery. She was seen in the emergency room with Dr. Bunn, recommendations made for thoracentesis which was completed by Dr. Regan with removal of 950 mL of fluid. Follow-up chest x-ray was stable. Recommendations from our standpoint are for patient to be discharged to home today with oral Lasix. This was discussed with the patient by Dr. Bunn. Review of Systems Review of systems was completed and was negative except as noted - Respiratory Reports dyspnea Past Medical History Past Medical History: Asthma, Coronary Artery Disease (CAD), COPD, Diabetes Mellitus, Hyperlipidemia, Hypertension, Myocardial Infarction ([place]), Musculoskeletal Disorder, Rheumatoid Arthritis (RA), Thyroid Disorder Additional Past Medical History / Comment(s): Back Pain, right shoulder pain, Hx Pituitary Tumor, BENIGN. Thyroid disorder. 3 heart attacks-most recent March 2022, 3 stents total, neuropathy; left-sided pleural effusion Last Myocardial Infarction Date:: 10/29/22 History of Any Multi-Drug Resistant Organisms: None Reported Past Surgical History: Section, Coronary Bypass/CABG, Heart Catheterization With Stent, Tubal Ligation Additional Past Surgical History / Comment(s): Pituitary Tumor Removed. colonoscopy, PAIN CLINIC PROCEDURES stents x3 c section x4; three-vessel off- pump CABG January 04, 2024; left-sided thoracentesis with removal of 950 mL fluid on January 22, 2024 Past Anesthesia/Blood Transfusion Reactions: No Reported Reaction Date of Last Stent Placement:: March 2022 Past Psychological History: Anxiety, Depression Smoking Status: Former smoker Past Alcohol Use History: None Reported Past Drug Use History: Marijuana Additional Drug Use History / Comment(s): Quit marijuana prior to last admission - Past Family History Mother History Unknown: Yes Family Medical History: Deep Vein Thrombosis (DVT) Additional Family Medical History / Comment(s): Mother is alive at age 67 with history of coronary artery disease and three-vessel CABG. Daughter(s) History Unknown: Yes Family Medical History: Deep Vein Thrombosis (DVT) Additional Family Medical History / Comment(s): Patient has a total of 9 children with no major medical problems. Father History Unknown: Yes Family Medical History: Cancer Additional Family Medical History / Comment(s): Father is alive with no history of coronary artery disease. History of Prostate Cancer Sister(s) History Unknown: Yes Additional Family Medical History / Comment(s): The patient has 4 sisters and 1 brother. One sister had a myocardial infraction at age 40. Medications and Allergies Home Medications Medication Instructions Recorded Confirmed Type Atorvastatin [Lipitor] 80 mg PO HS 05/05/20 01/22/24 History metFORMIN HCL [Glucophage] 1,000 mg PO DAILY 01/19/22 01/22/24 History Albuterol Inhaler [Ventolin Hfa 2 puff INHALATION RT-QID PRN 12/02/23 01/22/24 History Inhaler] Ondansetron Odt [Zofran ODT] 4 mg PO Q12HR PRN 12/02/23 01/22/24 History Docusate [Colace] 100 mg PO DAILY PRN 12/04/23 01/22/24 History Acetaminophen Tab [Tylenol] 1,000 mg PO Q6HR PRN tab 01/08/24 01/22/24 Rx Amiodarone [Cordarone] 400 mg PO BID #56 tab 01/08/24 01/22/24 Rx Ascorbic Acid [Vitamin C] 500 mg PO BID-W/MEALS #14 tab 01/08/24 01/22/24 Rx Clopidogrel [Plavix] 75 mg PO DAILY #30 tab 01/08/24 01/22/24 Rx Ferrous Sulfate [Iron (65 MG 325 mg PO BID-W/MEALS #14 tab 01/08/24 01/22/24 Rx Elemental)] Losartan [Cozaar] 12.5 mg PO DAILY@1400 #30 tab 01/08/24 01/22/24 Rx Metoprolol Tartrate [Lopressor] 25 mg PO BID #60 tab 01/08/24 01/22/24 Rx Pantoprazole [Protonix] 40 mg PO BID-W/MEALS #60 tab 01/08/24 01/22/24 Rx amLODIPine [Norvasc] 2.5 mg PO DAILY@1200 #30 tab 01/08/24 01/22/24 Rx Aspirin EC [Ecotrin] 325 mg PO DAILY 01/22/24 01/22/24 History Furosemide [Lasix] 40 mg PO DAILY 30 Days #30 tab 01/22/24 Rx Magnesium Oxide [Mag-Ox] 400 mg PO DAILY 30 Days #30 tablet 01/22/24 Rx Potassium Chloride ER [K-Dur 20] 20 meq PO DAILY 30 Days #30 tab 01/22/24 Rx Allergies Allergy/AdvReac Type Severity Reaction Status Date / Time peanut AdvReac HIVES Verified 01/22/24 08:23 rice AdvReac Rash/Hives Verified 01/22/24 08:23 seasonal Allergy Rash/Hives Uncoded 01/22/24 08:23 Surgical - Exam Vital Signs Temp Pulse Resp BP Pulse Ox 98.5 F 68 16 174/92 90 L 01/21/24 22:26 01/21/24 22:26 01/21/24 22:26 01/21/24 22:26 01/21/24 22:26 CONSTITUTIONAL: Awake and alert, appears somewhat comfortable, cooperative, no acute distress EYES: Pupils equal, round, reactive to light, normal ocular movement ENT: Moist mucous membranes without oral lesions present NECK: No masses, no bruits, trachea midline RESPIRATORY: Lungs sounds diminished on the left. Respirations even, nonlabored. Currently on 2 L nasal cannula with oxygen saturation 100%. Strong cough CARDIOVASCULAR: S1, S2 present. Regular rate and rhythm, sinus rhythm on telemetry. Sternum stable. Palpable peripheral pulses bilaterally. No edema present. GASTROINTESTINAL: Abdomen soft, nontender, nondistended without masses or organomegaly noted. There is no rebound or guarding present. Active bowel sounds present 4 quadrants. GENITOURINARY: Deferred INTEGUMENTARY: Skin is warm and dry. Anterior chest incision well-approximated NEUROLOGIC: Cranial nerves II through XII intact, normal coordination, no obvious motor or sensory deficits, speech is normal MUSKULOSKELETAL: Able to move all extremities, strength equal bilaterally, normal posture PSYCHIATRIC: Alert and oriented to person place and time, appropriate affect, intact judgment and insight Results - Labs 01/21/24 22:35 01/21/24 22:35 Abnormal Lab Results - Last 24 Hours (Table) 01/21/24 01/21/24 01/21/24 Range/Units 22:35 22:35 22:35 RBC 3.24 L (3.80-5.40) m/uL Hgb 9.0 L (11.4-16.0) gm/dL Hct 29.1 L (34.0-46.0) % MCHC 30.8 L (31.0-37.0) g/dL RDW 15.7 H (11.5-15.5) % Plt Count 484 H (150-450) k/uL Creatinine 0.50 L (0.52-1.04) mg/dL Glucose 140 H (74-99) mg/dL POC Glucose (mg/dL) (70-110) mg/dL Magnesium 1.2 L (1.6-2.3) mg/dL Troponin I 0.281 H* (0.000-0.034) ng/mL Total Protein 6.0 L (6.3-8.2) g/dL Albumin 3.1 L (3.5-5.0) g/dL 01/22/24 01/22/24 Range/Units 05:56 09:49 RBC (3.80-5.40) m/uL Hgb (11.4-16.0) gm/dL Hct (34.0-46.0) % MCHC (31.0-37.0) g/dL RDW (11.5-15.5) % Plt Count (150-450) k/uL Creatinine (0.52-1.04) mg/dL Glucose (74-99) mg/dL POC Glucose (mg/dL) 156 H (70-110) mg/dL Magnesium (1.6-2.3) mg/dL Troponin I 0.256 H* (0.000-0.034) ng/mL Total Protein (6.3-8.2) g/dL Albumin (3.5-5.0) g/dL Diabetes panel 01/21/24 Range/Units 22:35 Sodium 140 (137-145) mmol/L Potassium 3.5 (3.5-5.1) mmol/L Chloride 105 (98-107) mmol/L Carbon Dioxide 28 (22-30) mmol/L BUN 9 (7-17) mg/dL Creatinine 0.50 L (0.52-1.04) mg/dL Glucose 140 H (74-99) mg/dL Calcium 8.5 (8.4-10.2) mg/dL AST 19 (14-36) U/L ALT 25 (4-34) U/L Alkaline Phosphatase 122 (38-126) U/L Total Protein 6.0 L (6.3-8.2) g/dL Albumin 3.1 L (3.5-5.0) g/dL Calcium panel 01/21/24 Range/Units 22:35 Calcium 8.5 (8.4-10.2) mg/dL Albumin 3.1 L (3.5-5.0) g/dL Pituitary panel 01/21/24 Range/Units 22:35 Sodium 140 (137-145) mmol/L Potassium 3.5 (3.5-5.1) mmol/L Chloride 105 (98-107) mmol/L Carbon Dioxide 28 (22-30) mmol/L BUN 9 (7-17) mg/dL Creatinine 0.50 L (0.52-1.04) mg/dL Glucose 140 H (74-99) mg/dL Calcium 8.5 (8.4-10.2) mg/dL Adrenal panel 01/21/24 Range/Units 22:35 Sodium 140 (137-145) mmol/L Potassium 3.5 (3.5-5.1) mmol/L Chloride 105 (98-107) mmol/L Carbon Dioxide 28 (22-30) mmol/L BUN 9 (7-17) mg/dL Creatinine 0.50 L (0.52-1.04) mg/dL Glucose 140 H (74-99) mg/dL Calcium 8.5 (8.4-10.2) mg/dL Total Bilirubin 0.4 (0.2-1.3) mg/dL AST 19 (14-36) U/L ALT 25 (4-34) U/L Alkaline Phosphatase 122 (38-126) U/L Total Protein 6.0 L (6.3-8.2) g/dL Albumin 3.1 L (3.5-5.0) g/dL - Imaging Chest x-ray: report reviewed, image reviewed Assessment and Plan Assessment: Left-sided pleural effusion, status post thoracentesis with removal of 950 mL fluid Shortness of breath secondary to above Coronary artery disease with previous myocardial infarction and prior stenting of the left anterior descending artery as well as left circumflex/OM, stable angina, status post three-vessel off-pump CABG 01/04/24 Hypertension Hyperlipidemia Diabetes Hypothyroid Bilateral internal carotid artery stenosis, 50-69% Asthma Chronic back and neck pain Previous marijuana use Previous tobacco dependence Remote history of syncope Family history of premature coronary artery disease Plan: The patient was seen and examined in the emergency room with Dr. Bunn, re commendations made for thoracentesis which was completed by Dr. Regan with removal of 950 mL of fluid. Follow-up chest x-ray was stable. Recommendations from our standpoint are for patient to be discharged to home today with oral Lasix. This was discussed with the patient by Dr. Bunn. In addition Dr. Regan indicated the patient is cleared for discharge. We did discuss with internal medicine our recommendations. The patient should continue to follow-up outpatient with Dr. Ojeda in the [facility] clinic. Please call us with any further questions. Thank you for this consult. I have personally seen and examined the patient, performed the documentation and the assessment and plan as written. Number of minutes spent on the visit: 30. AVINASH Bedolla Attending Addendum: Pt seen and evaluated with BATTERY INSTALLER above. Agree with her assessment and plan. This is a 53 y/o F s/p recent CABG who presents with SOB. Imaging reveals left sided pleural effusion and pulmonary edema. Recommend diuresis and thoracentesis. I spent 35 minutes reviewing the data and discussing the plan of care with the team. Time with Patient: Greater than 30
--- NOTE | 2024-01-22 11:48 | P.DS ---
Providers Date of admission: 01/22/24 01:37 Expected date of discharge: 01/22/24 Attending physician: Helen Clayton MD Consults: 01/22/24 01:35 Consult Physician Urgent Consulting Provider: Bryson Bunn Consult Reason/Comments: acute respiratory insuff, left pleural effusion, recent cabg Do you want consulting provider notified?: Yes 01/22/24 01:53 Consult Physician Urgent Consulting Provider: Butch Regan Consult Reason/Comments: pleural effusion, s/p cabg Do you want consulting provider notified?: Yes Primary care physician: [facility] [place]: Discharge Diagnosis: Elevated troponins, flat secondary to recent CABG Left-sided pleural effusion status post thoracentesis with removal of 950 cc. Repeat chest x-ray stable. Shortness of breath secondary to above Status post CABG x 3 Asthma with COPD, not in acute exacerbation. Hypertension Hyperlipidemia Hypothyroidism Type II [id number] diabetes mellitus Hospital Course: Patient is a pleasant 53-year-old female with a past medical history of CAD with stent followed by CABG x 3 on 01/04/2024, asthma with COPD, hypertension, hyperlipidemia, hypothyroidism, rheumatoid arthritis, benign pituitary tumor, and type II [id number] diabetes mellitus. She presented to the emergency department on 01/21/2024 with a chief complaint of chest pain and shortness of breath. Upon arrival, patient underwent evaluation in the emergency department. Vital signs show blood pressure 174/92, heart rate 68, respiratory rate 16, temp 98.5 F, and SpO2 of 90% on room air. EKG was completed showing normal sinus rhythm at 68 bpm with T wave inversion in lateral leads I, II, aVL, V5 and V6. Chest x-ray completed showing moderate left pleural effusion with patchy bilateral airspace consolidations. Labs completed and reviewed. CBC showing normocytic anemia with hemoglobin of 9.0 and thrombocytosis with platelet count of 44. Coagulation profile normal findings. BMP unremarkable. Blood glucose 140. Magnesium was low at 1.2 and replaced with 3 g magnesium sulfate IVPB. Liver profile unremarkable. Troponin elevated at 0.281. proBNP 2020. Influenza A, influenza B, RSV, and COVID PCR negative. Patient admitted under services with consultation to cardiothoracic surgery and pulmonology. Troponin is trending resulting at 0.281 and 0.256. She was evaluated by cardiothoracic surgery and pulmonology. Cardiothoracic surgery recommended thoracentesis which was completed by senior communications engineer, Dr. Regan with documented removal of 950 mL of fluid. Follow-up repeat chest x-ray stable showing mild pulmonary venous congestion with no evidence for left-sided pneumothorax. Patient has been cleared by senior communications engineer and cardiothoracic surgery recommending patient be discharged home on Lasix 40 mg daily. Patient medically stable for discharge at this time. Patient to follow-up outpatient with PCP in 1 to 2 days and with cardiothoracic surgery team in 1 week. Patient discharged with prescription for Lasix 40 mg daily, K-Dur 20 mEq daily, and Mag- Ox 400 mg daily. Patient to have repeat BMP and magnesium levels drawn in 3 days with results to be sent to PCP and Dr. Bunn for follow-up and management. Patient medically stable for discharge at this time. Patient to follow-up outpatient with PCP in 1 to 2 days and with cardiothoracic surgery team in 1 week. Physical exam: Vital signs reviewed and stable. General: Nontoxic, no distress and appears stated age. Derm: Skin warm and dry, normal coloration for ethnicity. Head: Atraumatic, normocephalic and symmetric. Eyes: EOMs intact, no lid lag, and anicteric sclera Mouth: no lip lesions, mucus membranes moist Cardiovascular: regular rate and rhythm with normal S1S2, soft systolic murmur, positive posterior tibial pulses bilaterally, and cap refill < 2 seconds. Midsternal postoperative incision intact and appears to be healing well Lungs: Respirations even, regular, and unlabored on room air. Lungs CTA bilaterally, no rhonchi, no rales, no wheezing, and no accessory muscle usage. Abdominal: soft, nontender to palpation, no guarding, no appreciable organomegaly Ext: ROM intact. No gross muscle atrophy, no edema, no contractures Neuro: Speech clear, face symmetrical and CN II-XII grossly intact with no noted focal neuro deficits Psych: Alert and oriented to person, place, time, and situation. Appropriate and pleasant affect. A total of 34 minutes of time were spent preparing this complex discharge summary. Pt was discharged on 01/22/2024 at 11:30 AM Patient was seen independently by Nurse Practitioner. This document was prepared using [employer] dictation software. Please allow for errors in packing machine pilot can router while rare they do occur. Luis Mckee NP rendered care for this patient independently, reviewed the f indings and plan as documented in the note above. I did not physically speak with or examine the patient on this date. Patient Condition at Discharge: Stable Plan - Discharge Summary New Discharge Prescriptions: New Potassium Chloride ER [K-Dur 20] 20 meq PO DAILY 30 Days #30 tab Furosemide [Lasix] 40 mg PO DAILY 30 Days #30 tab Magnesium Oxide [Mag-Ox] 400 mg PO DAILY 30 Days #30 tablet Continue Atorvastatin [Lipitor] 80 mg PO HS Albuterol Inhaler [Ventolin Hfa Inhaler] 2 puff INHALATION RT-QID PRN PRN Reason: Shortness Of Breath Docusate [Colace] 100 mg PO DAILY PRN PRN Reason: Constipation Clopidogrel [Plavix] 75 mg PO DAILY #30 tab Acetaminophen Tab [Tylenol] 1,000 mg PO Q6HR PRN tab PRN Reason: Fever And/ Or Pain Aspirin EC [Ecotrin] 325 mg PO DAILY metFORMIN HCL [Glucophage] 1,000 mg PO DAILY Ondansetron Odt [Zofran ODT] 4 mg PO Q12HR PRN PRN Reason: Nausea Amiodarone [Cordarone] 400 mg PO BID #56 tab Losartan [Cozaar] 12.5 mg PO DAILY@1400 #30 tab Ferrous Sulfate [Iron (65 MG Elemental)] 325 mg PO BID-W/MEALS #14 tab Metoprolol Tartrate [Lopressor] 25 mg PO BID #60 tab amLODIPine [Norvasc] 2.5 mg PO DAILY@1200 #30 tab Pantoprazole [Protonix] 40 mg PO BID-W/MEALS #60 tab Ascorbic Acid [Vitamin C] 500 mg PO BID-W/MEALS #14 tab Discontinued Ibuprofen [Motrin] 400 mg PO Q6HR PRN #28 tab PRN Reason: Pain Discharge Medication List Atorvastatin [Lipitor] 80 mg PO HS 05/05/20 [History] metFORMIN HCL [Glucophage] 1,000 mg PO DAILY 01/19/22 [History] Albuterol Inhaler [Ventolin Hfa Inhaler] 2 puff INHALATION RT-QID PRN 12/02/23 [History] Ondansetron Odt [Zofran ODT] 4 mg PO Q12HR PRN 12/02/23 [History] Docusate [Colace] 100 mg PO DAILY PRN 12/04/23 [History] Acetaminophen Tab [Tylenol] 1,000 mg PO Q6HR PRN tab 01/08/24 [Rx] Amiodarone [Cordarone] 400 mg PO BID #56 tab 01/08/24 [Rx] Ascorbic Acid [Vitamin C] 500 mg PO BID-W/MEALS #14 tab 01/08/24 [Rx] Clopidogrel [Plavix] 75 mg PO DAILY #30 tab 01/08/24 [Rx] Ferrous Sulfate [Iron (65 MG Elemental)] 325 mg PO BID-W/MEALS #14 tab 01/08/24 [Rx] Losartan [Cozaar] 12.5 mg PO DAILY@1400 #30 tab 01/08/24 [Rx] Metoprolol Tartrate [Lopressor] 25 mg PO BID #60 tab 01/08/24 [Rx] Pantoprazole [Protonix] 40 mg PO BID-W/MEALS #60 tab 01/08/24 [Rx] amLODIPine [Norvasc] 2.5 mg PO DAILY@1200 #30 tab 01/08/24 [Rx] Aspirin EC [Ecotrin] 325 mg PO DAILY 01/22/24 [History] Furosemide [Lasix] 40 mg PO DAILY 30 Days #30 tab 01/22/24 [Rx] Magnesium Oxide [Mag-Ox] 400 mg PO DAILY 30 Days #30 tablet 01/22/24 [Rx] Potassium Chloride ER [K-Dur 20] 20 meq PO DAILY 30 Days #30 tab 01/22/24 [Rx] Follow up Appointment(s)/Referral(s): [facility] [Primary Care Provider] - 1-2 days Bryson Bunn MD [STAFF PHYSICIAN] - 1 Week Ambulatory/Diagnostic Orders: Basic Metabolic Panel [LAB.AMB] Time Frame: 3 Days, Location: None Selected Magnesium [LAB.AMB] Location: None Selected Activity/Diet/Wound Care/Special Instructions: Activity: As tolerated. Take breaks as needed. Diet: Heart healthy and carb consistent diet. Avoid salts, or foods with hidden salts such as canned or boxed foods and frozen dinners. Extra salt makes your heart work harder and traps the fluid in your body for longer. Special Instructions: Take all of your medications as directed and remember to keep all of your doctor's appointments and follow-up as needed. Thank you for allowing us to participate in your care, it was truly a pleasure having you for our patient!!! Discharge Disposition: HOME SELF-CARE
[2024-01-22] MEDS ORDERED: amLODIPine 2.5 MG TAB PO SCH (12:00)
[2024-01-22] MEDS ORDERED: LOSARTAN 25 MG TAB PO SCH (14:00)
--- NOTE | 2024-01-22 15:28 | P.CNPUL ---
History of Present Illness Consult date: 01/22/24 Requesting physician: Luis Mckee Reason for consult: dyspnea, pleural effusion, abnormal CXR/CT Chief complaint: Shortness of breath History of present illness: This is a pleasant 53-year-old female patient with a history of coronary artery disease with previous myocardial infarction and prior stenting, hypertension, hyperlipidemia, diabetes, hypothyroid, bilateral internal carotid artery dana nosis, asthma, chronic back and neck pain, previous marijuana and tobacco dependence, and recently status post three-vessel off-pump CABG 01/04/24. Presented here to the emergency room last evening with complaints of increasing shortness of breath and back discomfort. Chest x-ray revealed a moderate left pleural effusion. Patchy by lateral airspace consolidations. Doppler of the left lower extremity revealed no evidence for DVT. Ultrasound of the left chest revealed a 5.9 cm pocket. White count 8.9. Hemoglobin 9.0. Platelets 484. Sodium 140. Potassium 3.5. Bicarb 28. BUN 9. Creatinine 0.50. Glucose 140. Troponin 0.281, 0.256, 0.190. proBNP 2020. Influenza, RSV and COVID-19 screen negative. She is seen today in consultation in the emergency department. Awake and alert in no acute distress. She is maintaining O2 saturations up to 100% on 2 L/min per nasal cannula. She is afebrile. Hemodynamically stable. She did undergo a left-sided thoracentesis Dr. Regan with 950 mL of the fluid returned. Follow-up chest x-ray revealed no pneumothorax. Improved aeration of the left lung. Review of Systems REVIEW OF SYSTEMS: CONSTITUTIONAL: Denies any recent significant weight loss or weight gain. EYES: Denies change in vision. EARS, NOSE, MOUTH, THROAT: Denies headaches, denies sore throat. CARDIOVASCULAR: Denies chest pain, palpitations or syncopal episodes. RESPIRATORY: Positive for shortness of breath, cough, congestion no hemoptysis. GASTROINTESTINAL: Denies change in appetite, denies abdominal pain GENITOURINARY: Denies hematuria, denies infections. MUSKULOSKELETAL: Positive for back pain pain, denies swelling. INTEGUMENTARY: Denies rash, denies eczema. NEUROLOGICAL: Denies recent memory loss, no recent seizure activity. PSYCHIATRIC: Denies anxiety, denies depression. HEMATOLOGIC/LYMPHATIC: Denies anemia, denies enlarged lymph nodes. Past Medical History Past Medical History: Asthma, Coronary Artery Disease (CAD), COPD, Diabetes Mellitus, Hyperlipidemia, Hypertension, Myocardial Infarction (AL), Musculoskeletal Disorder, Rheumatoid Arthritis (RA), Thyroid Disorder Additional Past Medical History / Comment(s): Back Pain, right shoulder pain, Hx Pituitary Tumor, BENIGN. Thyroid disorder. 3 heart attacks-most recent March 2022, 3 stents total, neuropathy; left-sided pleural effusion Last Myocardial Infarction Date:: 10/29/22 History of Any Multi-Drug Resistant Organisms: None Reported Past Surgical History: Section, Coronary Bypass/CABG, Heart Catheterization With Stent, Tubal Ligation Additional Past Surgical History / Comment(s): Pituitary Tumor Removed. colonoscopy, PAIN [facility] PROCEDURES stents x3 c section x4; three-vessel off- pump CABG January 04, 2024; left-sided thoracentesis with removal of 950 mL fluid on January 22, 2024 Past Anesthesia/Blood Transfusion Reactions: No Reported Reaction Date of Last Stent Placement:: March 2022 Past Psychological History: Anxiety, Depression Smoking Status: Former smoker Past Alcohol Use History: None Reported Past Drug Use History: Marijuana Additional Drug Use History / Comment(s): Quit marijuana prior to last admission - Past Family History Mother History Unknown: Yes Family Medical History: Deep Vein Thrombosis (DVT) Additional Family Medical History / Comment(s): Mother is alive at age 67 with history of coronary artery disease and three-vessel CABG. Daughter(s) History Unknown: Yes Family Medical History: Deep Vein Thrombosis (DVT) Additional Family Medical History / Comment(s): Patient has a total of 9 children with no major medical problems. Father History Unknown: Yes Family Medical History: Cancer Additional Family Medical History / Comment(s): Father is alive with no history of coronary artery disease. History of Prostate Cancer Sister(s) History Unknown: Yes Additional Family Medical History / Comment(s): The patient has 4 sisters and 1 brother. One sister had a myocardial infraction at age 40. Medications and Allergies Home Medications Medication Instructions Recorded Confirmed Type Atorvastatin [Lipitor] 80 mg PO HS 05/05/20 01/22/24 History metFORMIN HCL [Glucophage] 1,000 mg PO DAILY 01/19/22 01/22/24 History Albuterol Inhaler [Ventolin Hfa 2 puff INHALATION RT-QID PRN 12/02/23 01/22/24 History Inhaler] Ondansetron Odt [Zofran ODT] 4 mg PO Q12HR PRN 12/02/23 01/22/24 History Docusate [Colace] 100 mg PO DAILY PRN 12/04/23 01/22/24 History Acetaminophen Tab [Tylenol] 1,000 mg PO Q6HR PRN tab 01/08/24 01/22/24 Rx Amiodarone [Cordarone] 400 mg PO BID #56 tab 01/08/24 01/22/24 Rx Ascorbic Acid [Vitamin C] 500 mg PO BID-W/MEALS #14 tab 01/08/24 01/22/24 Rx Clopidogrel [Plavix] 75 mg PO DAILY #30 tab 01/08/24 01/22/24 Rx Ferrous Sulfate [Iron (65 MG 325 mg PO BID-W/MEALS #14 tab 01/08/24 01/22/24 Rx Elemental)] Losartan [Cozaar] 12.5 mg PO DAILY@1400 #30 tab 01/08/24 01/22/24 Rx Metoprolol Tartrate [Lopressor] 25 mg PO BID #60 tab 01/08/24 01/22/24 Rx Pantoprazole [Protonix] 40 mg PO BID-W/MEALS #60 tab 01/08/24 01/22/24 Rx amLODIPine [Norvasc] 2.5 mg PO DAILY@1200 #30 tab 01/08/24 01/22/24 Rx Aspirin EC [Ecotrin] 325 mg PO DAILY 01/22/24 01/22/24 History Furosemide [Lasix] 40 mg PO DAILY 30 Days #30 tab 01/22/24 Rx Magnesium Oxide [Mag-Ox] 400 mg PO DAILY 30 Days #30 tablet 01/22/24 Rx Potassium Chloride ER [K-Dur 20] 20 meq PO DAILY 30 Days #30 tab 01/22/24 Rx Allergies Allergy/AdvReac Type Severity Reaction Status Date / Time peanut AdvReac HIVES Verified 01/22/24 08:23 rice AdvReac Rash/Hives Verified 01/22/24 08:23 seasonal Allergy Rash/Hives Uncoded 01/22/24 08:23 Physical Exam Vitals: Vital Signs Temp Pulse Resp BP Pulse Ox 01/22/24 08:00 100 01/22/24 06:38 97.8 F 61 18 140/80 100 01/22/24 04:24 70 16 128/71 98 01/22/24 03:21 98.7 F 57 L 16 158/98 97 01/22/24 01:02 64 18 145/83 100 01/21/24 22:26 98.5 F 68 16 174/92 90 L GENERAL EXAM: Alert, pleasant 53-year-old female, on 2 L nasal cannula, comfortable in no apparent distress. HEAD: Normocephalic. EYES: Normal reaction of pupils, equal size. NOSE: Clear with pink turbinates. THROAT: No erythema or exudates. NECK: No masses, no JVD. CHEST: No chest wall deformity. Heart hugger in place LUNGS: Equal air entry with diminished breath sounds in the left lung base. CVS: S1 and S2 normal with no audible murmur, regular rhythm. ABDOMEN: No hepatosplenomegaly, normal bowel sounds, no guarding or rigidity. SPINE: No scoliosis or deformity SKIN: No rashes CENTRAL NERVOUS SYSTEM: No focal deficits, tone is normal in all 4 extremities. EXTREMITIES: There is no peripheral edema. No clubbing, no cyanosis. Peripheral pulses are intact. Results - Laboratory Findings CBC and BMP: 01/21/24 22:35 01/21/24 22:35 PT/INR, D-dimer PT 11.5 sec (10.0-12.5) 01/21/24 22:35 INR 1.1 (<1.2) 01/21/24 22:35 Abnormal lab findings: Abnormal Labs 01/21/24 01/21/24 01/21/24 22:35 22:35 22:35 RBC 3.24 L Hgb 9.0 L Hct 29.1 L MCHC 30.8 L RDW 15.7 H Plt Count 484 H Creatinine 0.50 L Glucose 140 H POC Glucose (mg/dL) Magnesium 1.2 L Troponin I 0.281 H* Total Protein 6.0 L Albumin 3.1 L 01/22/24 01/22/24 01/22/24 05:56 09:49 11:23 RBC Hgb Hct MCHC RDW Plt Count Creatinine Glucose POC Glucose (mg/dL) 156 H Magnesium Troponin I 0.256 H* 0.190 H* Total Protein Albumin - Diagnostic Findings Chest x-ray: image reviewed Assessment and Plan Assessment: Dyspnea secondary to moderate left-sided pleural effusion. Status post thoracentesis today with 950 mL of bloody fluid returned Status post coronary artery bypass surgery on January 04, 2024 Coronary artery disease with previous myocardial infarction and prior stenting Hyperlipidemia Diabetes Hypothyroidism Bilateral carotid stenosis History of mild intermittent chronic asthma Chronic back and neck pain Previous marijuana use Previous tobacco dependence Plan: The patient was seen and evaluated Chest x-rays, labs and medications reviewed Left sided thoracentesis performed with 950 mL of bloody fluid return Fluid analysis and cytology pending Follow-up chest x-ray shows improved aeration, no pneumothorax Currently stable and cleared for discharge from the pulmonary standpoint I have personally seen and examined the patient, performed the documentation and the assessment and plan as written. Number of minutes spent on the visit: 20.
[2024-01-22 17:04] LABS: Appearance,BF Bloody (Clear)
[2024-01-22 18:45] LABS: LDH, Body Fluid Source Pleural fluid
[2024-01-22 19:05] LABS: T. Protein, Body Fluid Source Pleural fluid; Total Protein, Body Fluid >3600 mg/dL
[2024-01-22] MEDS ORDERED: ATORVASTATIN 80 MG TAB PO SCH (21:00)
[2024-01-23] MEDS ORDERED: POTASSIUM BICARBONATE/CIT AC 20 MEQ TABLET.EFF PO SCH (09:00)
== END 2024-01-22 12:40 | disposition home or self-care (01) ==
LOC: EC 22:21 → 3SCARD 01-22 01:37
PROVIDERS: ADMIT Internal Medicine; ATTEND Internal Medicine
DX: I20.9 Angina pectoris, unspecified (principal); E11.9 Type 2 diabetes mellitus without complications; E78.5 Hyperlipidemia, unspecified; I10 Essential (primary) hypertension; I25.2 Old myocardial infarction; Z95.5 Presence of coronary angioplasty implant and graft; F41.9 Anxiety disorder, unspecified; F32.A Depression, unspecified; Z11.52 Encounter for screening for COVID-19; Z95.1 Presence of aortocoronary bypass graft; Z79.899 Other long term (current) drug therapy; Z79.84 Long term (current) use of oral hypoglycemic drugs; Z79.82 Long term (current) use of aspirin; Z79.02 Long term (current) use of antithrombotics/antiplatelets
CPT/HCPCS: 96365; 96366; 96367; 96375; 99285; 36415; 94760; 93005; 83880; 80053; 89050; 83735; 84484 ×2; 85025; 85610; 85730; 87040; 87070; 87205; 87116; 87102; 87206; 83615; 84157; 87636; 71045; 71046; 76604; 93971; G0378; J1940; J0696; J1170; J3475

== ENCOUNTER 2024-01-23 17:23 | Observation (INO) | payer OTHER ==
--- NOTE | 2024-01-23 17:30 | ED ---
SOB HPI - General Stated Complaint: DEEP Time Seen by Provider: 01/23/24 17:29 Source: RN notes reviewed, old records reviewed Mode of arrival: EMS Limitations: no limitations - History of Present Illness Initial Comments: This is a 53-year-old female to the ER for evaluation today. Patient is a postoperative patient postoperative coronary artery bypass grafting with recent evaluation of significant pleural effusion. Patient has persistent shortness of breath here and was recently admitted for pleural effusion and thoracentesis. Patient has no fevers increased cough and congestion. No other new complaints no chest pain currently MD Complaint: shortness of breath, cough, chest pain -: hour(s) Radiation: back Severity: mild Severity scale (1-10): 2 Quality: aching Consistency: constant Improves With: nothing Known History Of: COPD, asthma, congestive heart failure Context: anxiety, recent illness Associated Symptoms: denies other symptoms - Related Data Home Medications Medication Instructions Recorded Confirmed Atorvastatin [Lipitor] 80 mg PO HS 05/05/20 01/23/24 metFORMIN HCL [Glucophage] 1,000 mg PO DAILY 01/19/22 01/23/24 Albuterol Inhaler [Ventolin Hfa 2 puff INHALATION RT-QID PRN 12/02/23 01/23/24 Inhaler] Ondansetron Odt [Zofran ODT] 4 mg PO Q12HR PRN 12/02/23 01/23/24 Docusate [Colace] 100 mg PO BID PRN 12/04/23 01/23/24 Aspirin EC [Ecotrin] 325 mg PO DAILY 01/22/24 01/23/24 Furosemide [Lasix] 40 mg PO DIRECTED 01/23/24 01/23/24 Lactulose 20 gm PO DAILY PRN 01/23/24 01/23/24 Magnesium Oxide [Mag-Ox] 400 mg PO DIRECTED 01/23/24 01/23/24 Potassium Chloride ER [K-Dur 20] 20 meq PO DIRECTED 01/23/24 01/23/24 Previous Rx's Medication Instructions Recorded Acetaminophen Tab [Tylenol] 1,000 mg PO Q6HR PRN tab 01/08/24 Amiodarone [Cordarone] 400 mg PO BID #56 tab 01/08/24 Ascorbic Acid [Vitamin C] 500 mg PO BID-W/MEALS #14 tab 01/08/24 Clopidogrel [Plavix] 75 mg PO DAILY #30 tab 01/08/24 Ferrous Sulfate [Iron (65 MG 325 mg PO BID-W/MEALS #14 tab 01/08/24 Elemental)] Losartan [Cozaar] 12.5 mg PO DAILY@1400 #30 tab 01/08/24 Metoprolol Tartrate [Lopressor] 25 mg PO BID #60 tab 01/08/24 Pantoprazole [Protonix] 40 mg PO BID-W/MEALS #60 tab 01/08/24 amLODIPine [Norvasc] 2.5 mg PO DAILY@1200 #30 tab 01/08/24 Allergies Allergy/AdvReac Type Severity Reaction Status Date / Time peanut Allergy HIVES Verified 01/23/24 21:10 rice Allergy Rash/Hives Verified 01/23/24 21:10 seasonal Allergy Rash/Hives Uncoded 01/23/24 17:36 Review of Systems ROS Statement: Those systems with pertinent positive or pertinent negative responses have been documented in the HPI. ROS Other: All systems not noted in ROS Statement are negative. Past Medical History Past Medical History: Asthma, Coronary Artery Disease (CAD), COPD, Diabetes Mellitus, Hyperlipidemia, Hypertension, Myocardial Infarction ([place]), Musculoskele sergey Disorder, Rheumatoid Arthritis (RA), Thyroid Disorder Additional Past Medical History / Comment(s): Back Pain, right shoulder pain, Hx Pituitary Tumor, BENIGN. Thyroid disorder. 3 heart attacks-most recent March 2022, 3 stents total, neuropathy; left-sided pleural effusion Last Myocardial Infarction Date:: 10/29/22 History of Any Multi-Drug Resistant Organisms: None Reported Past Surgical History: Section, Coronary Bypass/CABG, Heart Catheterization With Stent, Tubal Ligation Additional Past Surgical History / Comment(s): Pituitary Tumor Removed. colonoscopy, PAIN CLINIC PROCEDURES stents x3 c section x4; three-vessel off- pump CABG January 04, 2024; left-sided thoracentesis with removal of 950 mL fluid on January 22, 2024 Past Anesthesia/Blood Transfusion Reactions: No Reported Reaction Date of Last Stent Placement:: March 2022 Past Psychological History: Anxiety, Depression Smoking Status: Former smoker Past Alcohol Use History: None Reported Past Drug Use History: Marijuana Additional Drug Use History / Comment(s): Quit marijuana prior to last admission - Past Family History Mother History Unknown: Yes Family Medical History: Deep Vein Thrombosis (DVT) Additional Family Medical History / Comment(s): Mother is alive at age 67 with history of coronary artery disease and three-vessel CABG. Daughter(s) History Unknown: Yes Family Medical History: Deep Vein Thrombosis (DVT) Additional Family Medical History / Comment(s): Patient has a total of 9 children with no major medical problems. Father History Unknown: Yes Family Medical History: Cancer Additional Family Medical History / Comment(s): Father is alive with no history of coronary artery disease. History of Prostate Cancer Sister(s) History Unknown: Yes Additional Family Medical History / Comment(s): The patient has 4 sisters and 1 brother. One sister had a myocardial infraction at age 40. General Exam General appearance: alert, in no apparent distress Head exam: Present: atraumatic, normocephalic, normal inspection Eye exam: Present: normal appearance, PERRL, EOMI. Absent: scleral icterus, conjunctival injection, periorbital swelling ENT exam: Present: normal exam, mucous membranes moist Neck exam: Present: normal inspection. Absent: tenderness, meningismus, lymphadenopathy Respiratory exam: Present: normal lung sounds bilaterally. Absent: respiratory distress, wheezes, rales, rhonchi, stridor Cardiovascular Exam: Present: regular rate, normal rhythm, normal heart sounds. Absent: systolic murmur, diastolic murmur, rubs, gallop, clicks GI/Abdominal exam: Present: soft, normal bowel sounds. Absent: distended, tenderness, guarding, rebound, rigid Extremities exam: Present: normal inspection, full ROM, normal capillary refill. Absent: tenderness, pedal edema, joint swelling, calf tenderness Back exam: Present: normal inspection Neurological exam: Present: alert, oriented X3, CN II-XII intact Psychiatric exam: Present: normal affect, normal mood Skin exam: Present: warm, dry, intact, normal color. Absent: rash Course Vital Signs 01/23/24 01/23/24 01/23/24 17:30 18:12 18:21 Temperature 98.6 F Pulse Rate 63 64 62 Respiratory 18 Rate Blood Pressure 163/77 O2 Sat by Pulse 100 Oximetry 01/23/24 01/23/24 01/23/24 19:55 21:00 23:00 Temperature Pulse Rate 71 71 69 Respiratory 20 20 18 Rate Blood Pressure 167/88 168/89 160/88 O2 Sat by Pulse 97 99 99 Oximetry 01/23/24 23:25 Temperature Pulse Rate 68 Respiratory 18 Rate Blood Pressure 149/71 O2 Sat by Pulse 98 Oximetry - Reevaluation(s) Reevaluation #1: 01/23/24 19:01 Medical record d is reviewed Reevaluation #2: 01/23/24 19:01 Patient symptoms are mildly improved Reevaluation #3: Patient informed of results and questions answered Reevaluation #4: Was pt. sent in by a medical professional or institution (, [facility], [employer], urgent care, hospital, or penitentiary...) When possible be specific @ -no Did you speak to anyone other than the patient for history (EMS, parent, family, police, friend...)? What history was obtained from this source @ -no Did you review nursing and triage notes (agree or disagree)? Why? @ -agree Are old charts reviewed (outside hosp., previous admission, EMS record, old EKG, old radiological studies, urgent care reports/EKG's, penitentiary records)? Report findings @ -yes Differential Diagnosis (chest pain, altered mental status, abdominal pain women, abdominal pain men, vaginal bleeding, weakness, fever, dyspnea, syncope, headache, dizziness, GI bleed, back pain, seizure, CVA, palpatations, mental health, musculoskeletal)? @ -prior EKG interpreted by me (3pts min.). @ -yes X-rays interpreted by me (1pt min.). @ -yes negative for acute disease CT interpreted by me (1pt min.). @ -no U/S interpreted by me (1pt. min.). @ -no What testing was considered but not performed or refused? (CT, X-rays, U/S, labs)? Why? @ -none What meds were considered but not given or refused? Why? @ -none Did you discuss the management of the patient with other professionals (saroj sorensen i.e. [facility] [place], [employer], lab, RT, psych nurse, social media job titles, baffle installer, teacher, retail loan officer, casework supervisor)? Give summary @ -no Was smoking cessation discussed for >3mins.? @ -no Was critical care preformed (if so, how long)? @ -yes31 Were there social determinants of health that impacted care today? How? (Homelessness, low income, unemployed, alcoholism, drug addiction, transportation, low edu. Level, literacy, decrease access to med. care, correction, rehab)? @ -none Was there de-escalation of care discussed even if they declined (Discuss DNR or withdrawal of care, Hospice)? DNR status @ -no What co-morbidities impacted this encounter? (DM, HTN, Smoking, COPD, CAD, Cancer, CVA, ARF, Chemo, Hep., AIDS, mental health diagnosis, sleep apnea, morbid obesity)? @ -none Was patient admitted / discharged? Hospital course, mention meds given and route, prescriptions, significant lab abnormalities, going to OR and other pertinent info. @ - 53-year-old female for postoperative CABG coming in for postoperative pain control severe shortness of breath and dyspnea. Patient admitted for pain control refusing discharge Admitted Undiagnosed new problem with uncertain prognosis? @ -no Drug Therapy requiring intensive monitoring for toxicity (Heparin, Nitro, Insulin, Cardizem)? @ -no Were any procedures done? @ -no Diagnosis/symptom? @ -Chest pain with severe shortness of breath Acute, or Chronic, or Acute on Chronic? @ -Acute Uncomplicated (without systemic symptoms) or Complicated (systemic symptoms)? @ -Complicated Side effects of treatment? @ -no Exacerbation, Progression, or Severe Exacerbation? @ -exacerbation Poses a threat to life or bodily function? How? (Chest pain, [place], [place], pneumonia, PE, COPD, DKA, ARF, appy, cholecystitis, CVA, Diverticulitis, Homicidal, Suicidal, threat to staff... and all critical care pts) @ -yes with significant cause of chest pain Reevaluation #5: Differential Dyspnea: Coronary syndrome, arrhythmia, tamponade, asthma, COPD, pulmonary embolism, pneumonia, pneumothorax, pulmonary effusion, anaphylaxis, diabetic ketoacidosis, flailed chest, pulmonary contusion, diaphragmatic rupture, anemia, neuromuscular, this is not meant to be an all-inclusive list. Differential Chest Pain: Stable Angina, Unstable Angina, STEMI, NSTEMI Aortic Dissection, Pneumothorax, Musculoskeletal, Esophageal Spasm GERD, Cholecystitis, Pancreatitis, Zoster, this is not meant to be an all-inclusive list. - Consultations Consultation #1: Spoke with admitting physicians who agreed to admit this patient Medical Decision Making - Medical Decision Making 53-year-old female for postoperative CABG coming in for postoperative pain cont rol severe shortness of breath and dyspnea. Patient admitted for pain control refusing discharge - Lab Data Result diagrams: 01/25/24 07:44 01/25/24 07:44 Lab Results 01/23/24 01/23/24 01/23/24 Range/Units 18:07 18:07 18:07 WBC 5.3 (3.8-10.6) k/uL RBC 2.77 L (3.80-5.40) m/uL Hgb 7.8 L (11.4-16.0) gm/dL Hct 24.4 L (34.0-46.0) % MCV 88.3 (80.0-100.0) fL MCH 28.2 (25.0-35.0) pg MCHC 32.0 (31.0-37.0) g/dL RDW 15.8 H (11.5-15.5) % Plt Count 226 (150-450) k/uL MPV 8.3 Neutrophils % 68 % Lymphocytes % 24 % Monocytes % 5 % Eosinophils % 3 % Basophils % 0 % Neutrophils # 3.6 (1.3-7.7) k/uL Lymphocytes # 1.3 (1.0-4.8) k/uL Monocytes # 0.2 (0-1.0) k/uL Eosinophils # 0.1 (0-0.7) k/uL Basophils # 0.0 (0-0.2) k/uL Hypochromasia Moderate Poikilocytosis Slight PT 10.6 (10.0-12.5) sec INR 1.0 (<1.2) APTT 22.9 (22.0-30.0) sec Sodium 142 (137-145) mmol/L Potassium 3.9 (3.5-5.1) mmol/L Chloride 103 (98-107) mmol/L Carbon Dioxide 30 (22-30) mmol/L Anion Gap 9 mmol/L BUN 10 (7-17) mg/dL Creatinine 0.56 (0.52-1.04) mg/dL Est GFR (CKD-EPI)AfAm >90 (>60 ml/min/1.73 sqM) Est GFR (CKD-EPI)NonAf >90 (>60 ml/min/1.73 sqM) Glucose 121 H (74-99) mg/dL Calcium 8.6 (8.4-10.2) mg/dL Magnesium 1.4 L (1.6-2.3) mg/dL Total Bilirubin 0.3 (0.2-1.3) mg/dL AST 20 (14-36) U/L ALT 23 (4-34) U/L Alkaline Phosphatase 109 (38-126) U/L Troponin I (0.000-0.034) ng/mL NT-Pro-B Natriuret Pep 1680 pg/mL Total Protein 6.0 L (6.3-8.2) g/dL Albumin 3.1 L (3.5-5.0) g/dL 01/23/24 Range/Units 18:07 WBC (3.8-10.6) k/uL RBC (3.80-5.40) m/uL Hgb (11.4-16.0) gm/dL Hct (34.0-46.0) % MCV (80.0-100.0) fL MCH (25.0-35.0) pg MCHC (31.0-37.0) g/dL RDW (11.5-15.5) % Plt Count (150-450) k/uL MPV Neutrophils % % Lymphocytes % % Monocytes % % Eosinophils % % Basophils % % Neutrophils # (1.3-7.7) k/uL Lymphocytes # (1.0-4.8) k/uL Monocytes # (0-1.0) k/uL Eosinophils # (0-0.7) k/uL Basophils # (0-0.2) k/uL Hypochromasia Poikilocytosis PT (10.0-12.5) sec INR (<1.2) APTT (22.0-30.0) sec Sodium (137-145) mmol/L Potassium (3.5-5.1) mmol/L Chloride (98-107) mmol/L Carbon Dioxide (22-30) mmol/L Anion Gap mmol/L BUN (7-17) mg/dL Creatinine (0.52-1.04) mg/dL Est GFR (CKD-EPI)AfAm (>60 ml/min/1.73 sqM) Est GFR (CKD-EPI)NonAf (>60 ml/min/1.73 sqM) Glucose (74-99) mg/dL Calcium (8.4-10.2) mg/dL Magnesium (1.6-2.3) mg/dL Total Bilirubin (0.2-1.3) mg/dL AST (14-36) U/L ALT (4-34) U/L Alkaline Phosphatase (38-126) U/L Troponin I 0.210 H* (0.000-0.034) ng/mL NT-Pro-B Natriuret Pep pg/mL Total Protein (6.3-8.2) g/dL Albumin (3.5-5.0) g/dL - EKG Data -: EKG Interpreted by Me (EKG is sinus 63 MS 151 QRS 90 QTc 440) - Radiology Data Radiology results: report reviewed (Chest x-ray is negative for acute disease), image reviewed Critical Care Time Critical Care Time: Yes Total Critical Care Time: 31 Disposition Clinical Impression: Postoperative pain, Chest pain, Coronary artery disease, Acute coronary syndrome, Hypertensive emergency, Chronic abdominal pain Disposition: ADMITTED IP TO THIS [facility] Condition: Stable Is patient prescribed a controlled substance at d/c from ED?: No Time of Disposition: 22:50
[2024-01-23] MEDS: SODIUM CHLORIDE 0.9% 1,000 ML IV STA (18:03)
[2024-01-23] MEDS: IPRATROPIUM-ALBUTEROL 3 ML NEB INHALATION STA ×2 (18:12→21:53)
--- NOTE | 2024-01-23 19:02 | XR ---
EXAM: XR chest 1V portable CLINICAL INDICATION:Female, 53 years old with history of sob; [facility] COMPARISON: 01/22/2024 and before TECHNIQUE: Chest single view. FINDINGS: Lines/tubes/devices: None. Cardiomediastinum: Cardiac silhouette appears stable, enlarged Stable mediastinal silhouette. Vasculature: Similar pulmonary vascular congestion and interstitial opacities suggesting edema. Lungs/pleura: Similar stranding surrounding base most suggestive of subsegmental atelectasis. Slightly greater pleu ral/parenchyma opacity at the left lung base, likely enlarging pleural effusion with adjacent atelect asis/airspace disease. No pneumothorax evident. Bones/soft tissues: Bony thorax appears grossly unchanged as seen. Regional soft tissues appear unremarkable. Other: Redemonstration of multiple sternotomy wires and left atrial appendage occlusion device. IMPRESSION: 1. Cardiomegaly with pulmonary vascular congestion and interstitial edema, similar to prior. 2. Slight enlargement of small to moderate left pleural effusion.
[2024-01-23] MEDS: HYDROmorphone 1 MG/ML 1 ML SYRINGE IVP STA (19:18)
[2024-01-23] MEDS: ONDANSETRON 4 MG/2 ML VIAL IVP STA (21:53)
[2024-01-23 22:33] LABS: Basophils % (A) 0 %; Eosinophils # (A) 0.1 k/uL (0-0.7); Eosinophils % (A) 3 %; HCT 24.4 % (34.0-46.0); HGB 7.8 gm/dL (11.4-16.0); Hypochromasia Moderate; Lymphocytes # (A) 1.3 k/uL (1.0-4.8); Lymphocytes % (A) 24 %; MCH 28.2 pg (25.0-35.0); MCV 88.3 fL (80.0-100.0); Mean Platelet Volume 8.3; Monocytes # (A) 0.2 k/uL (0-1.0); Monocytes % (A) 5 %; Neutrophils # (A) 3.6 k/uL (1.3-7.7); Neutrophils % (A) 68 %; Platelet Count 226 k/uL (150-450); Poikilocytosis Slight; RBC 2.77 m/uL (3.80-5.40); RDW 15.8 % (11.5-15.5); WBC 5.3 k/uL (3.8-10.6)
[2024-01-23 22:42] LABS: ALT 23 U/L (4-34); AST 20 U/L (14-36); African American GFR (CKD) >90 (>60 ml/min/1.73 sqM); Albumin 3.1 g/dL (3.5-5.0); Alkaline Phosphatase 109 U/L (38-126); Anion Gap 9 mmol/L; Blood Urea Nitrogen 10 mg/dL (7-17); Calcium 8.6 mg/dL (8.4-10.2); Carbon Dioxide 30 mmol/L (22-30); Chloride 103 mmol/L (98-107); Glucose 121 mg/dL (74-99); Magnesium 1.4 mg/dL (1.6-2.3); Non-African American GFR(CKD) >90 (>60 ml/min/1.73 sqM); Potassium 3.9 mmol/L (3.5-5.1); Sodium 142 mmol/L (137-145); Total Bilirubin 0.3 mg/dL (0.2-1.3)
[2024-01-23 22:43] LABS: Prothrombin Time 10.6 sec (10.0-12.5)
[2024-01-23 22:44] LABS: Partial Thromboplastin Time 22.9 sec (22.0-30.0)
[2024-01-23 22:50] LABS: NT-Pro-B-Type Natriuretic Pept 1680 pg/mL
[2024-01-23] MEDS ORDERED: NALOXONE 0.4 MG/ML 1 ML VIAL IV PRN (22:50)
[2024-01-23] MEDS: HYDROmorphone 1 MG/ML 1 ML SYRINGE IVP PRN (23:18)
[2024-01-23] MEDS: SODIUM CHLORIDE 0.9% 1,000 ML IV SCH (23:25)
[2024-01-24] MEDS ORDERED: ALBUTEROL NEBULIZED 2.5 MG/3 ML INHALATION PRN (04:17)
[2024-01-24] MEDS ORDERED: ACETAMINOPHEN TAB 500 MG TAB PO PRN (04:17)
[2024-01-24] MEDS: ONDANSETRON 4 MG/2 ML VIAL IVP PRN (04:20)
[2024-01-24] MEDS ORDERED: DEXTROSE 50% SYRINGE 50 ML IVP PRN ×2 (04:23)
--- NOTE | 2024-01-24 04:26 | P.HPIM ---
History of Present Illness H&P Date: 01/23/24 Chief Complaint: Chest pain difficulty breathing 53-year-old female hypertension, diabetes mellitus, CAD status post CABG about 3 weeks ago, initially postop she was doing well and then started having difficulty breathing and chest pain she presented to the hospital 2 days ago was found to have significant left-sided effusion which she required thoracentesis she was discharged home however she is coming back today with complaints of right-sided chest pain and difficulty breathing patient reports that she lives at home and unable to take care of herself due to severe pain that she is dealing with. She denies any fevers or chills denies any coughing or hemoptysis denies any changes in bowel or urinary habits denies any GI bleeding. Patient reports feeling uncomfortable while laying down or sitting up pain is mainly over her right side of the chest Patient is voicing concerns regarding pulmonary embolism as her mom had a complicated CABG years ago where she was diagnosed later with blood clots patient is adamant something wrong with her and she is voicing concerns regarding pulmonary embolism requesting to be tested Patient otherwise denies any fevers or chills denies any nausea vomiting denies any hemoptysis denies any focal neurodeficits review of systems Pertinent positives as noted in HPI. All other systems were reviewed and are negative on exam Constitutional: No acute distress, conversant, pleasant Eyes: Anicteric sclerae, moist conjunctiva, Pupils equal round reactive to light ENMT: NC/AT Oropharynx clear, no erythema, or exudates Neck: Supple, no masses, or JVD No carotid bruits No thyromegaly Lungs: Clear to auscultation Clear to percussion Normal respiratory effort, no accessory muscle use Cardiovascular: Chest is tender to light palpation over the right side heart regular in rate and rhythm, No murmurs, gallops, or rubs No peripheral edema Abdominal: Soft Nontender, no guarding, rebound or rigidity Abdomen moving with respiration Normoactive bowel sounds No hepatomegaly, No splenomegaly Extremities: No digital cyanosis No clubbing Pedal pulses intact and symmetrical Radial pulses intact and symmetrical No calf tenderness Psychiatric: Alert and oriented to person, place and time Appropriate affect fair judgement Neuro Muscles Strength 5/5 in all 4 extremities Sensation to light touch grossly present throughout Cranial nerves II-XII grossly intact Past Medical History Past Medical History: Asthma, Coronary Artery Disease (CAD), COPD, Diabetes Mellitus, Hyperlipidemia, Hypertension, Myocardial Infarction ([place]), Musculoskeletal Disorder, Rheumatoid Arthritis (RA), Thyroid Disorder Additional Past Medical History / Comment(s): Back Pain, right shoulder pain, Hx Pituitary Tumor, BENIGN. Thyroid disorder. 3 heart attacks-most recent March 2022, 3 stents total, neuropathy; left-sided pleural effusion Last Myocardial Infarction Date:: 10/29/22 History of Any Multi-Drug Resistant Organisms: None Reported Past Surgical History: Section, Coronary Bypass/CABG, Heart Tamera terization With Stent, Tubal Ligation Additional Past Surgical History / Comment(s): Pituitary Tumor Removed. colonoscopy, PAIN CLINIC PROCEDURES stents x3 c section x4; three-vessel off- pump CABG January 04, 2024; left-sided thoracentesis with removal of 950 mL fluid on January 22, 2024 Past Anesthesia/Blood Transfusion Reactions: No Reported Reaction Date of Last Stent Placement:: March 2022 Past Psychological History: Anxiety, Depression Smoking Status: Former smoker Past Alcohol Use History: None Reported Past Drug Use History: Marijuana Additional Drug Use History / Comment(s): Quit marijuana prior to last admission - Past Family History Mother History Unknown: Yes Family Medical History: Deep Vein Thrombosis (DVT) Additional Family Medical History / Comment(s): Mother is alive at age 67 with history of coronary artery disease and three-vessel CABG. Daughter(s) History Unknown: Yes Family Medical History: Deep Vein Thrombosis (DVT) Additional Family Medical History / Comment(s): Patient has a total of 9 children with no major medical problems. Father History Unknown: Yes Family Medical History: Cancer Additional Family Medical History / Comment(s): Father is alive with no history of coronary artery disease. History of Prostate Cancer Sister(s) History Unknown: Yes Additional Family Medical History / Comment(s): The patient has 4 sisters and 1 brother. One sister had a myocardial infraction at age 40. Medications and Allergies Home Medications Medication Instructions Recorded Confirmed Type Atorvastatin [Lipitor] 80 mg PO HS 05/05/20 01/23/24 History metFORMIN HCL [Glucophage] 1,000 mg PO DAILY 01/19/22 01/23/24 History Albuterol Inhaler [Ventolin Hfa 2 puff INHALATION RT-QID PRN 12/02/23 01/23/24 History Inhaler] Ondansetron Odt [Zofran ODT] 4 mg PO Q12HR PRN 12/02/23 01/23/24 History Docusate [Colace] 100 mg PO BID PRN 12/04/23 01/23/24 History Acetaminophen Tab [Tylenol] 1,000 mg PO Q6HR PRN tab 01/08/24 01/23/24 Rx Amiodarone [Cordarone] 400 mg PO BID #56 tab 01/08/24 01/23/24 Rx Ascorbic Acid [Vitamin C] 500 mg PO BID-W/MEALS #14 tab 01/08/24 01/23/24 Rx Clopidogrel [Plavix] 75 mg PO DAILY #30 tab 01/08/24 01/23/24 Rx Ferrous Sulfate [Iron (65 MG 325 mg PO BID-W/MEALS #14 tab 01/08/24 01/23/24 Rx Elemental)] Losartan [Cozaar] 12.5 mg PO DAILY@1400 #30 tab 01/08/24 01/23/24 Rx Metoprolol Tartrate [Lopressor] 25 mg PO BID #60 tab 01/08/24 01/23/24 Rx Pantoprazole [Protonix] 40 mg PO BID-W/MEALS #60 tab 01/08/24 01/23/24 Rx amLODIPine [Norvasc] 2.5 mg PO DAILY@1200 #30 tab 01/08/24 01/23/24 Rx Aspirin EC [Ecotrin] 325 mg PO DAILY 01/22/24 01/23/24 History Furosemide [Lasix] 40 mg PO DIRECTED 01/23/24 01/23/24 History Lactulose 20 gm PO DAILY PRN 01/23/24 01/23/24 History Magnesium Oxide [Mag-Ox] 400 mg PO DIRECTED 01/23/24 01/23/24 History Potassium Chloride ER [K-Dur 20] 20 meq PO DIRECTED 01/23/24 01/23/24 History Allergies Allergy/AdvReac Type Severity Reaction Status Date / Time peanut Allergy HIVES Verified 01/23/24 21:10 rice Allergy Rash/Hives Verified 01/23/24 21:10 seasonal Allergy Rash/Hives Uncoded 01/23/24 17:36 Physical Exam Vitals: Vital Signs Temp Pulse Resp BP Pulse Ox 01/23/24 23:00 69 18 160/88 99 01/23/24 21:00 71 20 168/89 99 01/23/24 19:55 71 20 167/88 97 01/23/24 18:21 62 01/23/24 18:12 64 01/23/24 17:30 98.6 F 63 18 163/77 100 Intake and Output 01/23/24 01/23/24 01/24/24 14:59 22:59 06:59 Other: Weight 72.575 kg Results CBC & Chem 7: 01/23/24 18:07 01/23/24 18:07 Labs: Abnormal Lab Results - Last 24 Hours (Table) 01/23/24 01/23/24 01/23/24 Range/Units 18:07 18:07 18:07 RBC 2.77 L (3.80-5.40) m/uL Hgb 7.8 L (11.4-16.0) gm/dL Hct 24.4 L (34.0-46.0) % RDW 15.8 H (11.5-15.5) % Glucose 121 H (74-99) mg/dL Magnesium 1.4 L (1.6-2.3) mg/dL Troponin I 0.210 H* (0.000-0.034) ng/mL Total Protein 6.0 L (6.3-8.2) g/dL Albumin 3.1 L (3.5-5.0) g/dL Assessment and Plan Assessment: 53-year-old female with coronary artery disease status post CABG 3 weeks ago coming in for right-sided chest pain with difficulty breathing this is patient's second admission over the past couple days post CABG. I discussed case with ED doctor and accepted the admission for pulmonary evaluation of recurrent left lung effusion pulmonary vascular congestion and PT eval for possible placement Elevated troponin this has been steady over the past 4 days Rule out acute coronary syndrome EKG showed no acute ST changes Continue with aspirin and statin. And Plavix Continue with Eliquis continue amiodarone Check CT angio of the chest to rule out pulmonary embolism per family request Elevated troponin 0.2, however it has been around this number for the past couple days, continue to trend IV Lasix 20 mg daily Recurrent left pleural effusion Pulmonary evaluation for thoracentesis Hypertension Controlled Continue with metoprolol and losartan Chronic anemia Hemoglobin 7.8 slightly trended down Continue to monitor Diabetes mellitus Insulin sliding scale Blood work overall unremarkable White count 5.3 unremarkable sodium 142 potassium 3.9 unremarkable BUN 10 creatinine 0.5 Full code DVT prophylaxis on Eliquis GI prophylaxis on Protonix
[2024-01-24 05:56] LABS: Glucose,Whole Blood 182 mg/dL (70-110)
[2024-01-24] MEDS: PANTOPRAZOLE 40 MG TABLET PO SCH (06:28)
[2024-01-24] MEDS: INSULIN ASPART (NovoLOG) 100 UNIT/ML VIAL SQ SCH (06:28)
--- NOTE | 2024-01-24 06:30 | P.CNPUL ---
History of Present Illness Consult date: 01/24/24 Requesting physician: Helen Clayton Reason for consult: chest pain Chief complaint: Right-sided chest pain, shortness of breath History of present illness: Patient is a 53-year-old -Maltese female with past medical history significant for recent three-vessel off-pump CABG on 01/04/2024. Patient also has history of coronary artery disease with previous PCI/stenting, hypertension, hyperlipidemia, diabetes, hypothyroidism, bilateral internal carotid artery stenosis, asthma, chronic back and neck pain, and former tobacco dependence. Patient just recently had a brief hospital stay, and was discharged 01/22/2024. She had a moderate to large sized left-sided pleural effusion and underwent a thoracentesis performed by Dr. Regan and draining approximately 950 mL of bloody fluid. Patient returned to the emergency room yesterday evening complaining of now right-sided chest pain and persistent shortness of breath. She is currently lying in bed, on room air, in no acute distress. Chest x-ray in the emergency room showed cardiomegaly, mild pulmonary vascular congestion, mild interstitial edema and a possible slight enlargement of a small left-sided pleural effusion. Likely not enough for thoracentesis, however, will repeat chest ultrasound. Lasix has been resumed. Her right-sided chest pain seems to be very much musculoskeletal in nature. It is reproducible even with gentle touch or movement of her right arm. She denies any recent trauma. No heart hugger in place. The patient apparently was worried about blood clots, and a chest CT angio has been ordered by admitting. Patient denies any coughing, hemoptysis, fevers. Incisions appear clean dry and intact and approximated. CBC on arrival: WBC count 5.3, hemoglobin 7.8, hematocrit 24.4, platelets 226. CMP on arrival was unremarkable. Troponin 0.21, flat when compared to previous admission. NT proBNP 1680. EKG on arrival shows normal sinus rhythm with some nonspecific T wave abnormalities, not significantly different from prior EKG. Patient's blood pressure is quite elevated at this time. Her home blood pressure medications have been resumed. Review of Systems REVIEW OF SYSTEMS: CONSTITUTIONAL: Denies any recent significant weight loss or weight gain. EYES: Denies change in vision. EARS, NOSE, MOUTH, THROAT: Denies headaches, denies sore throat. CARDIOVASCULAR: Denies palpitation, syncopal episodes, lower extremity swelling. Admits chest pain as described in HPI RESPIRATORY: Denies cough, congestion or hemoptysis. Admits persistent shortness of breath GASTROINTESTINAL: Denies change in appetite, abdominal pain, or diarrhea. Admits occasional nausea and vomiting, which she states is chronic. Denies any hematemesis. Denies melena or akbar blood in stool. GENITOURINARY: Denies hematuria, denies infections. MUSKULOSKELETAL: Admits pain as described in HPI. She also admits chronic back and neck pain bilaterally. INTEGUMENTARY: Denies rash, denies eczema. NEUROLOGICAL: Denies recent memory loss, no recent seizure activity. PSYCHIATRIC: Denies anxiety, denies depression. HEMATOLOGIC/LYMPHATIC: Denies anemia, denies enlarged lymph node Past Medical History Past Medical History: Asthma, Coronary Artery Disease (CAD), COPD, Diabetes Mellitus, Hyperlipidemia, Hypertension, Myocardial Infarction (AK), Musculo skeletal Disorder, Rheumatoid Arthritis (RA), Thyroid Disorder Additional Past Medical History / Comment(s): Back Pain, right shoulder pain, Hx Pituitary Tumor, BENIGN. Thyroid disorder. 3 heart attacks-most recent March 2022, 3 stents total, neuropathy; left-sided pleural effusion Last Myocardial Infarction Date:: 10/29/22 History of Any Multi-Drug Resistant Organisms: None Reported Past Surgical History: Section, Coronary Bypass/CABG, Heart Catheterization With Stent, Tubal Ligation Additional Past Surgical History / Comment(s): Pituitary Tumor Removed. colo noscopy, PAIN CLINIC PROCEDURES stents x3 c section x4; three-vessel off-pump CABG January 04, 2024; left-sided thoracentesis with removal of 950 mL fluid on January 22, 2024 Past Anesthesia/Blood Transfusion Reactions: No Reported Reaction Date of Last Stent Placement:: March 2022 Past Psychological History: Anxiety, Depression Smoking Status: Former smoker Past Alcohol Use History: None Reported Past Drug Use History: Marijuana Additional Drug Use History / Comment(s): Quit marijuana prior to last admission - Past Family History Mother History Unknown: Yes Family Medical History: Deep Vein Thrombosis (DVT) Additional Family Medical History / Comment(s): Mother is alive at age 67 with history of coronary artery disease and three-vessel CABG. Daughter(s) History Unknown: Yes Family Medical History: Deep Vein Thrombosis (DVT) Additional Family Medical History / Comment(s): Patient has a total of 9 children with no major medical problems. Father History Unknown: Yes Family Medical History: Cancer Additional Family Medical History / Comment(s): Father is alive with no history of coronary artery disease. History of Prostate Cancer Sister(s) History Unknown: Yes Additional Family Medical History / Comment(s): The patient has 4 sisters and 1 brother. One sister had a myocardial infraction at age 40. Medications and Allergies Home Medications Medication Instructions Recorded Confirmed Type Atorvastatin [Lipitor] 80 mg PO HS 05/05/20 01/23/24 History metFORMIN HCL [Glucophage] 1,000 mg PO DAILY 01/19/22 01/23/24 History Albuterol Inhaler [Ventolin Hfa 2 puff INHALATION RT-QID PRN 12/02/23 01/23/24 History Inhaler] Ondansetron Odt [Zofran ODT] 4 mg PO Q12HR PRN 12/02/23 01/23/24 History Docusate [Colace] 100 mg PO BID PRN 12/04/23 01/23/24 History Acetaminophen Tab [Tylenol] 1,000 mg PO Q6HR PRN tab 01/08/24 01/23/24 Rx Amiodarone [Cordarone] 400 mg PO BID #56 tab 01/08/24 01/23/24 Rx Ascorbic Acid [Vitamin C] 500 mg PO BID-W/MEALS #14 tab 01/08/24 01/23/24 Rx Clopidogrel [Plavix] 75 mg PO DAILY #30 tab 01/08/24 01/23/24 Rx Ferrous Sulfate [Iron (65 MG 325 mg PO BID-W/MEALS #14 tab 01/08/24 01/23/24 Rx Elemental)] Losartan [Cozaar] 12.5 mg PO DAILY@1400 #30 tab 01/08/24 01/23/24 Rx Metoprolol Tartrate [Lopressor] 25 mg PO BID #60 tab 01/08/24 01/23/24 Rx Pantoprazole [Protonix] 40 mg PO BID-W/MEALS #60 tab 01/08/24 01/23/24 Rx amLODIPine [Norvasc] 2.5 mg PO DAILY@1200 #30 tab 01/08/24 01/23/24 Rx Aspirin EC [Ecotrin] 325 mg PO DAILY 01/22/24 01/23/24 History Furosemide [Lasix] 40 mg PO DIRECTED 01/23/24 01/23/24 History Lactulose 20 gm PO DAILY PRN 01/23/24 01/23/24 History Magnesium Oxide [Mag-Ox] 400 mg PO DIRECTED 01/23/24 01/23/24 History Potassium Chloride ER [K-Dur 20] 20 meq PO DIRECTED 01/23/24 01/23/24 History Allergies Allergy/AdvReac Type Severity Reaction Status Date / Time peanut Allergy HIVES Verified 01/23/24 21:10 rice Allergy Rash/Hives Verified 01/23/24 21:10 seasonal Allergy Rash/Hives Uncoded 01/23/24 17:36 Physical Exam Vitals: Vital Signs Temp Pulse Pulse Resp BP BP Pulse Ox 01/24/24 04:00 72 18 175/80 92 L 01/24/24 01:26 66 18 01/24/24 00:00 98.6 F 66 16 182/80 98 01/23/24 23:25 68 18 149/71 98 01/23/24 23:00 69 18 160/88 99 01/23/24 21:00 71 20 168/89 99 01/23/24 19:55 71 20 167/88 97 01/23/24 18:21 62 01/23/24 18:12 64 01/23/24 17:30 98.6 F 63 18 163/77 100 Intake and Output 01/23/24 01/23/24 01/24/24 14:59 22:59 06:59 Other: Voiding Method External Catheter # Voids 0 Weight 72.575 kg 72.575 kg GENERAL EXAM: Alert, 53-year-old obese -Maltese female, comfortable in no apparent distress. HEAD: Normocephalic and atraumatic EYES: Normal reaction of pupils, equal size. NOSE: Clear with pink turbinates. THROAT: No erythema or exudates. NECK: No masses, no JVD. CHEST: Midsternal incision is clean, dry, approximated. Chest tube puncture sites are clean, dry, approximated. LUNGS: Equal air entry with inspiratory crackles/rales heard throughout the left lung. Right lung is clear on auscultation. On room air. No conversational dyspnea or accessory muscle use.. CVS: S1 and S2 normal with soft systolic murmur, Regular rhythm. No extra heart sounds ABDOMEN: No hepatosplenomegaly, active bowel sounds, no guarding or rigidity. SPINE: No scoliosis or deformity SKIN: No rashes CENTRAL NERVOUS SYSTEM: No focal deficits, tone is normal in all 4 extremities. EXTREMITIES: There is no peripheral edema, clubbing, or cyanosis. Peripheral pulses are intact. Results - Laboratory Findings CBC and BMP: 01/23/24 18:07 01/23/24 18:07 PT/INR, D-dimer PT 10.6 sec (10.0-12.5) 01/23/24 18:07 INR 1.0 (<1.2) 01/23/24 18:07 Abnormal lab findings: Abnormal Labs 01/23/24 01/23/24 01/23/24 18:07 18:07 18:07 RBC 2.77 L Hgb 7.8 L Hct 24.4 L RDW 15.8 H Glucose 121 H Magnesium 1.4 L Troponin I 0.210 H* Total Protein 6.0 L Albumin 3.1 L - Diagnostic Findings Chest x-ray: image reviewed Assessment and Plan Assessment: Dyspnea, secondary to left-sided pleural effusion, status post recent left-sided thoracentesis, draining 950 mL of bloody fluid 01/22/2024. She was discharged that day, and returns to the emergency room yesterday with complaints of right- sided chest pain and persistent shortness of breath. Chest x-ray in the emergency room showed cardiomegaly, mild pulmonary vascular congestion, mild interstitial edema and a possible slight enlargement of a small left-sided pleural effusion. Likely not enough for thoracentesis, however, will repeat chest ultrasound. Lasix has been resumed. No pneumothorax noted. Right-sided chest pain, appears musculoskeletal in origin Status post coronary artery bypass surgery on 01/04/24 Coronary artery disease with previous myocardial infarction and prior stenting Uncontrolled hypertension, home antihypertensive medications have been resumed Troponin leak, flat, not consistent with ACS Postoperative anemia, no further acute blood loss reported, will continue to monitor History of hyperlipidemia Diabetes mellitus, type II History of bilateral coronary artery stenosis History of mild intermittent chronic asthma Chronic back and neck pain Previous marijuana use Previous tobacco dependence Plan: Patient's medications, labs, chest x-ray resumed Currently on room air Patient is status post left-sided thoracentesis on her most recent hospital admission, fluid was bloody and appears exudative based on lights criteria, cytology is still pending. Will repeat chest ultrasound, however, may not be enough for repeat thoracentesis. Lasix has been resumed Patient's right-sided chest pain appears musculoskeletal in origin, There is a pending chest CT angiogram. Encourage incentive spirometer Anticipate hospital discharge within the next 24-48 hours. We will continue to follow. I have personally seen and examined the patient, performed the documentation and the assessment and plan as written. Number of minutes spent on the visit:20 Time with Patient: Greater than 30
--- NOTE | 2024-01-24 08:45 | US ---
EXAMINATION TYPE: US chest DATE OF EXAM: 01/24/2024 COMPARISON: None CLINICAL INDICATION: Female, 53 years old with history of left pleural effusion; TECHNIQUE: Targeted ultrasound of the posterior lower bilateral hemithoraces EXAM MEASUREMENTS: Right Pleural Effusion pocket size: 0 cm Left Pleural Effusion pocket size: 8.7 cm Left skin surface to fluid distance: 3.0 cm Left side marked for possible thoracentesis outside the dept. but lung tissue seen anteriorly near ma rked posterior chest. Pulmonologists are able to review the images in the patient?s EMR. IMPRESSIONS: As above
[2024-01-24] MEDS: ASPIRIN 325 MG TAB PO SCH (10:02)
[2024-01-24] MEDS: AMIODARONE 200 MG TAB PO SCH (10:03)
[2024-01-24] MEDS: CLOPIDOGREL 75 MG TAB PO SCH (10:03)
[2024-01-24] MEDS: METOPROLOL TARTRATE 25 MG TAB PO SCH (10:03)
[2024-01-24] MEDS: FERROUS SULFATE 325 MG TAB PO SCH (10:03)
[2024-01-24] MEDS: FUROSEMIDE 10 MG/ML 2 ML VIAL IV SCH (10:04)
[2024-01-24] MEDS: MAGNESIUM SULFATE-D5W PMX 1 GM in DEXTROSE/WATER 1 100ML.BAG IVPB SCH (10:04)
[2024-01-24] MEDS: HYDROcodone/APAP 5-325MG 1 EACH TAB PO PRN (10:06)
[2024-01-24 11:39] LABS: Glucose,Whole Blood 195 mg/dL (70-110)
[2024-01-24] MEDS: amLODIPine 2.5 MG TAB PO SCH (12:02)
--- NOTE | 2024-01-24 12:18 | P.PN ---
Subjective Progress Note Date: 01/24/24 Hospital course: Patient is a pleasant 53-year-old female with a past medical history of CAD with stent followed by CABG x 3 on 01/04/2024, recent left-sided pleural effusion status postthoracentesis with removal of 950 cc of fluid, asthma with COPD, hypertension, hyperlipidemia, hypothyroidism, rheumatoid arthritis, benign pituitary tumor, and type II [id number] diabetes mellitus. She returned to the emergency department on 01/23/2024 again with a chief complaint of chest pain and shortness of breath. Patient underwent evaluation in the emergency department. Vital signs upon arrival show blood pressure 163/77, heart rate 63, respiratory rate 18, temp 98.6 F, and SpO2 of 100% on 2 L. EKG completed showing normal sinus rhythm at 63 bpm with T wave inversion in lateral leads I, aVL, and V6. Chest x-ray completed showing cardiomegaly with pulmonary vascular congestion and interstitial edema similar to previous and slight enlargement of small to moderate left pleural effusion. Labs were completed and reviewed. CBC showing normocytic anemia with hemoglobin of 7.8. BMP unremarkable. Magnesium low at 1.4. Liver profile normal findings. Troponin elevated, but stable when compared to previous at 0.210. Patient was admitted to observation unit under our services with consultation to pulmonology and cardiothoracic surgery team. Physical exam: Vital signs reviewed and stable. General: Nontoxic, no distress and appears stated age. Derm: Skin warm and dry, normal coloration for ethnicity. Head: Atraumatic, normocephalic and symmetric. Eyes: EOMs intact, no lid lag, and anicteric sclera Mouth: no lip lesions, mucus membranes moist Cardiovascular: regular rate and rhythm with normal S1S2, soft systolic murmur, positive posterior tibial pulses bilaterally, and cap refill < 2 seconds. Lungs: Respirations even, regular, and unlabored on room air. Lungs slightly diminished left lower lobe otherwise clear to auscultation with no wheezes, rho nchi, or rales noted.. Abdominal: soft, nontender to palpation, no guarding, no appreciable organom egaly Ext: ROM intact. No gross muscle atrophy, no edema, no contractures Neuro: Speech clear, face symmetrical and CN II-XII grossly intact with no noted focal neuro deficits Psych: Alert and oriented to person, place, time, and situation. Appropriate and pleasant affect. Assessment and Plan of Care: Left-sided pleural effusion Elevated troponins, flat secondary to recent CABG Chest pain and Shortness of breath secondary to above Status post CABG x 3 on 01/04/2024 -Cardiothoracic surgery team consulted and discussed case with cardiothoracic surgery WRECKING MECHANIC, -Pulmonology consulted repeating ultrasound of left pleural effusion -CTA was ordered and currently pending results. -Patient to remain on telemetry monitoring. -Symptomatic care and pain management. -Patient to continue with daily medication regimen with amiodarone 400 mg twice daily, amlodipine 2.5 mg daily, aspirin 325 mg daily, atorvastatin 80 mg nightly, Plavix 75 mg daily, losartan 12.5 mg daily, and metoprolol 25 mg twice daily. -Continue with IV Lasix. Asthma with COPD, not in acute exacerbation. -Continue Ventolin inhaler 4 times daily as needed for shortness of breath and/or wheezing. Hypertension -Patient to continue daily medication regimen with amlodipine 2.5 mg daily, losartan 12.5 mg daily, metoprolol 25 mg twice daily. Hyperlipidemia -Continue daily medication regimen with atorvastatin 80 mg nightly. Type II [id number] diabetes mellitus -Hold metformin during hospitalization and place patient on glycemic protocol with NovoLog sliding scale. Patient to resume metformin 1000 mg daily upon di scharge. CODE STATUS: Full code DVT prophylaxis: HEAVEN [place] and [place] pending chest ultrasound as patient may require repeat thoracentesis Anticipated discharge date: Clinical course to determine Anticipated discharge place: Clinical course to determine Patient was seen independently by Nurse Pracitioner. This document was prepared using [employer] dictation software. Please allow for errors in paramedic instructor, while rare they do occur. Luis Mckee NP rendered care for this patient independently, reviewed the findings and plan as documented in the note above. I did not physically speak with or examine the patient on this date. Objective - Vital Signs Vital signs: Vital Signs Temp 98.6 F 01/24/24 00:00 Pulse 72 01/24/24 04:00 Resp 18 01/24/24 04:00 BP 175/80 01/24/24 04:00 Pulse Ox 92 L 01/24/24 04:00 FiO2 Intake & Output 01/23/24 01/24/24 01/24/24 18:59 06:59 18:59 Weight 72.575 kg 72.575 kg Other: Voiding Method External Catheter # Voids 0 - Labs CBC & Chem 7: 01/25/24 07:44 01/25/24 07:44 Labs: Abnormal Lab Results - Last 24 Hours (Table) 01/23/24 01/23/24 01/23/24 Range/Units 18:07 18:07 18:07 RBC 2.77 L (3.80-5.40) m/uL Hgb 7.8 L (11.4-16.0) gm/dL Hct 24.4 L (34.0-46.0) % RDW 15.8 H (11.5-15.5) % Glucose 121 H (74-99) mg/dL POC Glucose (mg/dL) (70-110) mg/dL Magnesium 1.4 L (1.6-2.3) mg/dL Troponin I 0.210 H* (0.000-0.034) ng/mL Total Protein 6.0 L (6.3-8.2) g/dL Albumin 3.1 L (3.5-5.0) g/dL 01/24/24 Range/Units 05:54 RBC (3.80-5.40) m/uL Hgb (11.4-16.0) gm/dL Hct (34.0-46.0) % RDW (11.5-15.5) % Glucose (74-99) mg/dL POC Glucose (mg/dL) 182 H (70-110) mg/dL Magnesium (1.6-2.3) mg/dL Troponin I (0.000-0.034) ng/mL Total Protein (6.3-8.2) g/dL Albumin (3.5-5.0) g/dL
--- NOTE | 2024-01-24 14:23 | CT ---
CTA CHEST EXAMINATION TYPE: CT chest angio for PE DATE OF EXAM: 01/24/2024 INDICATION: COPD CT DLP: 225.2 mGycm, Automated exposure control for dose reduction was used. CONTRAST: Patient injected with 100 mL of Isovue 300. COMPARISON: To 1024 TECHNIQUE: CT of the chest is performed on a spiral scan at 2 mm thick sections. Study is performed with intravenous contrast timed for evaluation for pulmonary embolism. This will limit additional po rtions of the evaluation. 3-D MIP images reconstructed by the technologist are reviewed on the compu ter in the coronal and sagittal planes. FINDINGS: Study is nondiagnostic. Despite catheter exchange and imaging, large extravasation may have occurred. No contrast is evident within the vascular structures. On physical assessment by nursing suggests no extravasation however. IMPRESSION: 1. Nondiagnostic examination. 2. Possible extravasation. No contrast evident within the vascular structures
--- NOTE | 2024-01-24 15:38 | P.GSCN ---
History of Present Illness Consult date: 01/24/24 Reason for Consult: Pain and shortness of breath, known to our service Requesting physician: Luis Mckee History of present illness: The patient is a 53-year-old female patient who follows on an outpatient basis with the [facility] for primary care and Dr. NIMISHA Ojeda for her cardiology care. She has a past medical history significant for coronary artery disease with previous myocardial infarction and prior stenting of the left anterior descending artery as well as her left circumflex/OM coronary artery, stable angina, status post three-vessel off-pump CABG on 01/04/24, hypertension, hyperlipidemia, diabetes mellitus type II, hypothyroid, bilateral internal carotid artery stenosis, asthma, chronic back and neck pain, previous marijuana and tobacco dependence, syncope, and family history of premature coronary artery disease. She was hospitalized recently after her open heart surgery and was subsequently discharged to home with home care on January 08, 2024. She has been recovering at home without incident and just saw Dr. Bunn in the office last December. She presented back to the hospital here at [facility] emergency department on January 22, 2024 with complaints of shortness of breath and was subsequently found on chest x-ray to have a left-sided pleural effusion and underwent a left sided thoracentesis with 950 mL of bloody fluid removed from her left pleural space. She was discharged home with [facility] health care on January 22, 2024. She presented back to the emergency department here at [facility] last evening January 23, 2024 with complaints of shortness of breath, right-sided chest and back pain. She reports she was feeling okay when she was discharged but later that day developed progressive shortness of breath and the chest/back pain. The patient denies any recent fever, chills, nausea, vomiting, cough, hematemesis, hemoptysis, palpitations, lightheadedness, headache, presyncope or syncope. A twelve-lead EKG was completed which showed normal sinus rhythm with a heart rate of 63 bpm. A chest x-ray was completed in the emergency department which showed cardiomegaly with pulmonary vascular congestion and interstitial edema, and slight enlargement of small to moderate left sided pleural effusion. For further evaluation an ultras ound of her chest was completed which demonstrated a left pleural effusion pocket size of 8.7 cm. The patient was also scheduled for a CT chest angio for PE protocol with results pending. Initial laboratory results showed a WBC count of 5.3, hemoglobin 7.8, hematocrit 24.4, platelets 226, PT 10.6, INR 1.0, PTT 22.9, sodium 142, potassium 3.9, chloride 103, CO2 30, BUN 10, creatinine 0.56, glucose 121, calcium 8.6, magnesium 1.4, AST 20, ALT 23, troponin 0.210 and proBNP 1680. Due to the patient's presenting symptoms and the patient being known to the cardiothoracic surgery service a consult was placed for further evaluation and treatment recommendations. Review of Systems A 14 point review of systems was completed and was negative except as mentioned in the HPI. Past Medical History Past Medical History: Asthma, Coronary Artery Disease (CAD), COPD, Diabetes Mellitus, Hyperlipidemia, Hypertension, Myocardial Infarction (CA), Musculoskeletal Disorder, Rheumatoid Arthritis (RA), Thyroid Disorder Additional Past Medical History / Comment(s): Back Pain, right shoulder pain, Hx Pituitary Tumor, BENIGN. Thyroid disorder. 3 heart attacks-most recent March 2022, 3 stents total, neuropathy; left-sided pleural effusion Last Myocardial Infarction Date:: 10/29/22 History of Any Multi-Drug Resistant Organisms: None Reported Past Surgical History: Section, Coronary Bypass/CABG, Heart Catheterization With Stent, Tubal Ligation Additional Past Surgical History / Comment(s): Pituitary Tumor Removed. colonoscopy, [facility] PROCEDURES stents x3 c section x4; three-vessel off- pump CABG January 04, 2024; left-sided thoracentesis with removal of 950 mL fluid on January 22, 2024 Past Anesthesia/Blood Transfusion Reactions: No Reported Reaction Date of Last Stent Placement:: March 2022 Past Psychological History: Anxiety, Depression Smoking Status: Former smoker Past Alcohol Use History: None Reported Past Drug Use History: Marijuana Additional Drug Use History / Comment(s): Quit marijuana prior to last admission - Past Family History Mother History Unknown: Yes Family Medical History: Deep Vein Thrombosis (DVT) Additional Family Medical History / Comment(s): Mother is alive at age 67 with history of coronary artery disease and three-vessel CABG. Daughter(s) History Unknown: Yes Family Medical History: Deep Vein Thrombosis (DVT) Additional Family Medical History / Comment(s): Patient has a total of 9 children with no major medical problems. Father History Unknown: Yes Family Medical History: Cancer Additional Family Medical History / Comment(s): Father is alive with no history of coronary artery disease. History of Prostate Cancer Sister(s) History Unknown: Yes Additional Family Medical History / Comment(s): The patient has 4 sisters and 1 brother. One sister had a myocardial infraction at age 40. Medications and Allergies Home Medications Medication Instructions Recorded Confirmed Type Atorvastatin [Lipitor] 80 mg PO HS 05/05/20 01/23/24 History metFORMIN HCL [Glucophage] 1,000 mg PO DAILY 01/19/22 01/23/24 History Albuterol Inhaler [Ventolin Hfa 2 puff INHALATION RT-QID PRN 12/02/23 01/23/24 History Inhaler] Ondansetron Odt [Zofran ODT] 4 mg PO Q12HR PRN 12/02/23 01/23/24 History Docusate [Colace] 100 mg PO BID PRN 12/04/23 01/23/24 History Acetaminophen Tab [Tylenol] 1,000 mg PO Q6HR PRN tab 01/08/24 01/23/24 Rx Amiodarone [Cordarone] 400 mg PO BID #56 tab 01/08/24 01/23/24 Rx Ascorbic Acid [Vitamin C] 500 mg PO BID-W/MEALS #14 tab 01/08/24 01/23/24 Rx Clopidogrel [Plavix] 75 mg PO DAILY #30 tab 01/08/24 01/23/24 Rx Ferrous Sulfate [Iron (65 MG 325 mg PO BID-W/MEALS #14 tab 01/08/24 01/23/24 Rx Elemental)] Losartan [Cozaar] 12.5 mg PO DAILY@1400 #30 tab 01/08/24 01/23/24 Rx Metoprolol Tartrate [Lopressor] 25 mg PO BID #60 tab 01/08/24 01/23/24 Rx Pantoprazole [Protonix] 40 mg PO BID-W/MEALS #60 tab 01/08/24 01/23/24 Rx amLODIPine [Norvasc] 2.5 mg PO DAILY@1200 #30 tab 01/08/24 01/23/24 Rx Aspirin EC [Ecotrin] 325 mg PO DAILY 01/22/24 01/23/24 History Furosemide [Lasix] 40 mg PO DIRECTED 01/23/24 01/23/24 History Lactulose 20 gm PO DAILY PRN 01/23/24 01/23/24 History Magnesium Oxide [Mag-Ox] 400 mg PO DIRECTED 01/23/24 01/23/24 History Potassium Chloride ER [K-Dur 20] 20 meq PO DIRECTED 01/23/24 01/23/24 History Allergies Allergy/AdvReac Type Severity Reaction Status Date / Time peanut Allergy HIVES Verified 01/23/24 21:10 rice Allergy Rash/Hives Verified 01/23/24 21:10 seasonal Allergy Rash/Hives Uncoded 01/23/24 17:36 Surgical - Exam Vital Signs Temp Pulse Resp BP Pulse Ox 98.6 F 63 18 163/77 100 01/23/24 17:30 01/23/24 17:30 01/23/24 17:30 01/23/24 17:30 01/23/24 17:30 CONSTITUTIONAL: Awake and alert, appears comfortable, cooperative, no acute distress. EYES: Pupils equal, round, reactive to light, normal ocular movement. ENT: Moist mucous membranes without oral lesions present. NECK: No masses, no bruits, trachea midline. RESPIRATORY: Lungs sounds essentially clear throughout, diminished to her left lower lobe. Respirations are symmetrical and nonlabored. Oxygen saturations are 96% on room air. Strong cough. CARDIOVASCULAR: S1, S2 present. Regular rate and rhythm, sinus rhythm on telemetry. Sternum stable. Palpable peripheral pulses bilaterally. No edema present. GASTROINTESTINAL: Abdomen soft, nontender, nondistended without masses or organomegaly noted. There is no rebound or guarding present. Active bowel sounds present 4 quadrants. GENITOURINARY: Deferred INTEGUMENTARY: Skin is warm and dry. No clubbing or cyanosis is present. Midline sternal incision is clean, dry and approximated. Left arm radial artery harvest sites and left lower extremity EVH sites are well-approximated, without redness or drainage. NEUROLOGIC: Cranial nerves II through XII intact, normal coordination, no obvious motor or sensory deficits, speech is normal. MUSKULOSKELETAL: Able to move all extremities, strength equal bilaterally, normal posture. PSYCHIATRIC: Alert and oriented to person place and time, appropriate affect, intact judgment and insight. Results - Labs 01/23/24 18:07 01/24/24 15:24 Abnormal Lab Results - Last 24 Hours (Table) 01/23/24 01/23/24 01/23/24 Range/Units 18:07 18:07 18:07 RBC 2.77 L (3.80-5.40) m/uL Hgb 7.8 L (11.4-16.0) gm/dL Hct 24.4 L (34.0-46.0) % RDW 15.8 H (11.5-15.5) % Glucose 121 H (74-99) mg/dL POC Glucose (mg/dL) (70-110) mg/dL Magnesium 1.4 L (1.6-2.3) mg/dL Troponin I 0.210 H* (0.000-0.034) ng/mL Total Protein 6.0 L (6.3-8.2) g/dL Albumin 3.1 L (3.5-5.0) g/dL 01/24/24 01/24/24 Range/Units 05:54 11:37 RBC (3.80-5.40) m/uL Hgb (11.4-16.0) gm/dL Hct (34.0-46.0) % RDW (11.5-15.5) % Glucose (74-99) mg/dL POC Glucose (mg/dL) 182 H 195 H (70-110) mg/dL Magnesium (1.6-2.3) mg/dL Troponin I (0.000-0.034) ng/mL Total Protein (6.3-8.2) g/dL Albumin (3.5-5.0) g/dL Diabetes panel 01/23/24 Range/Units 18:07 Sodium 142 (137-145) mmol/L Potassium 3.9 (3.5-5.1) mmol/L Chloride 103 (98-107) mmol/L Carbon Dioxide 30 (22-30) mmol/L BUN 10 (7-17) mg/dL Creatinine 0.56 (0.52-1.04) mg/dL Glucose 121 H (74-99) mg/dL Calcium 8.6 (8.4-10.2) mg/dL AST 20 (14-36) U/L ALT 23 (4-34) U/L Alkaline Phosphatase 109 (38-126) U/L Total Protein 6.0 L (6.3-8.2) g/dL Albumin 3.1 L (3.5-5.0) g/dL Calcium panel 01/23/24 Range/Units 18:07 Calcium 8.6 (8.4-10.2) mg/dL Albumin 3.1 L (3.5-5.0) g/dL Pituitary panel 01/23/24 Range/Units 18:07 Sodium 142 (137-145) mmol/L Potassium 3.9 (3.5-5.1) mmol/L Chloride 103 (98-107) mmol/L Carbon Dioxide 30 (22-30) mmol/L BUN 10 (7-17) mg/dL Creatinine 0.56 (0.52-1.04) mg/dL Glucose 121 H (74-99) mg/dL Calcium 8.6 (8.4-10.2) mg/dL Adrenal panel 01/23/24 Range/Units 18:07 Sodium 142 (137-145) mmol/L Potassium 3.9 (3.5-5.1) mmol/L Chloride 103 (98-107) mmol/L Carbon Dioxide 30 (22-30) mmol/L BUN 10 (7-17) mg/dL Creatinine 0.56 (0.52-1.04) mg/dL Glucose 121 H (74-99) mg/dL Calcium 8.6 (8.4-10.2) mg/dL Total Bilirubin 0.3 (0.2-1.3) mg/dL AST 20 (14-36) U/L ALT 23 (4-34) U/L Alkaline Phosphatase 109 (38-126) U/L Total Protein 6.0 L (6.3-8.2) g/dL Albumin 3.1 L (3.5-5.0) g/dL - Imaging Chest x-ray: report reviewed, image reviewed US - kidney/bladder: image reviewed Assessment and Plan Assessment: Shortness of breath, possibly secondary to left-sided pleural effusion, status post thoracentesis on January 22, 2024 with removal of [address] Regan Right-sided chest pain and back pain, possibly secondary to musculoskeletal in origin Coronary artery disease with previous myocardial infarction and prior stenting of the left anterior descending artery as well as left circumflex/OM, stable angina, status post three-vessel off-pump CABG 01/04/24 Elevated troponin, not consistent with ACS Postoperative acute blood loss anemia, likely secondary to hemodilution Hypertension Hyperlipidemia Diabetes mellitus type II Hypothyroid Bilateral internal carotid artery stenosis, 50-69% Asthma Chronic back and neck pain Previous marijuana use Previous tobacco dependence Remote history of syncope Family history of premature coronary artery disease Plan: The patient was seen and examined at her bedside on the third floor cardiac stepdown unit. Her chart and diagnostics were reviewed. Her case was discussed in detail with Dr. Bunn from cardiothoracic surgery. Continue to encourage use of incentive spirometry 10 times every hour while awake. Continue diuresis as ordered. Ultrasound of the chest was completed which showed an 8.7 cm left- sided pleural fluid pocket, recommendations on thoracentesis per pulmonar y/critical care medicine recommendations. Chest CT angiogram results remain pending. Medical management and other comorbidities per primary care service. Per the cardiothoracic surgery standpoint the patient can be discharged home with home health care when okay with primary care service and other consultants. Discharge instructions from post CABG have been discussed with the patient and reinforced the importance of no lifting, pulling, or pushing greater than 10 pounds or jug milk for 12 full weeks. The patient is to continue using her heart hugger as discussed. Thank you for this consult and we look forward to participating in the care of this patient. I have personally seen and examined the patient, performed the documentation and the assessment and plan as written. Number of minutes spent on the visit: 30. AVINASH Whitaker Attending Addendum: Pt seen and evaluated with DROP [employer]MER [employer]TER UP above. Agree with his assessment and plan. This patient is s/p recent CABG who presents with sternal pain. Recommend pain control and IV lasix with observation. I spent 35 minutes reviewing the data and discussing the plan of care with the team. Time with Patient: Greater than 30
[2024-01-24 15:55] LABS: African American GFR (CKD) >90 (>60 ml/min/1.73 sqM); Anion Gap 5 mmol/L; Blood Urea Nitrogen 6 mg/dL (7-17); Calcium 8.6 mg/dL (8.4-10.2); Carbon Dioxide 32 mmol/L (22-30); Chloride 99 mmol/L (98-107); Glucose 252 mg/dL (74-99); Magnesium 1.4 mg/dL (1.6-2.3); Non-African American GFR(CKD) >90 (>60 ml/min/1.73 sqM); Potassium 3.9 mmol/L (3.5-5.1); Sodium 136 mmol/L (137-145)
[2024-01-24] MEDS: LOSARTAN 25 MG TAB PO SCH (16:43)
[2024-01-24 16:48] LABS: Glucose,Whole Blood 217 mg/dL (70-110)
[2024-01-24] MEDS: ASCORBIC ACID 500 MG TAB PO SCH (18:10)
[2024-01-24] MEDS ORDERED: MAGNESIUM SULFATE-D5W PMX 1 GM in DEXTROSE/WATER 1 100ML.BAG IVPB SCH (19:00)
[2024-01-24 20:17] LABS: Glucose,Whole Blood 189 mg/dL (70-110)
[2024-01-24] MEDS: ATORVASTATIN 80 MG TAB PO SCH (20:24)
[2024-01-25] MEDS: DOCUSATE 100 MG CAP PO PRN (03:10)
[2024-01-25 04:42] VITALS: RESP 18
[2024-01-25 06:14] LABS: Glucose,Whole Blood 238 mg/dL (70-110)
[2024-01-25 09:39] LABS: Basophils % (A) 0 %; Eosinophils # (A) 0.3 k/uL (0-0.7); Eosinophils % (A) 3 %; HCT 33.9 % (34.0-46.0); HGB 10.3 gm/dL (11.4-16.0); Hypochromasia Marked; Lymphocytes # (A) 1.8 k/uL (1.0-4.8); Lymphocytes % (A) 20 %; MCH 27.5 pg (25.0-35.0); MCHC 30.4 g/dL (31.0-37.0); MCV 90.2 fL (80.0-100.0); Mean Platelet Volume 7.3; Monocytes # (A) 0.4 k/uL (0-1.0); Monocytes % (A) 4 %; Neutrophils # (A) 6.5 k/uL (1.3-7.7); Neutrophils % (A) 72 %; Poikilocytosis Slight; RBC 3.75 m/uL (3.80-5.40); RDW 15.7 % (11.5-15.5)
[2024-01-25 09:40] LABS: Platelet Count 544 k/uL (150-450)
[2024-01-25 09:55] LABS: African American GFR (CKD) >90 (>60 ml/min/1.73 sqM); Anion Gap 9 mmol/L; Blood Urea Nitrogen 9 mg/dL (7-17); Calcium 9.3 mg/dL (8.4-10.2); Carbon Dioxide 32 mmol/L (22-30); Chloride 98 mmol/L (98-107); Glucose 175 mg/dL (74-99); Non-African American GFR(CKD) >90 (>60 ml/min/1.73 sqM); Potassium 4.5 mmol/L (3.5-5.1); Sodium 139 mmol/L (137-145)
[2024-01-25 11:30] LABS: Glucose,Whole Blood 170 mg/dL (70-110)
--- NOTE | 2024-01-25 11:35 | P.PN ---
Subjective Progress Note Date: 01/25/24 Principal diagnosis: Chest pain. Patient is a 53-year-old -[place] female with past medical history significant for recent three-vessel off-pump CABG on 01/04/2024. Patient also has history of coronary artery disease with previous PCI/stenting, hypertension, hyperlipidemia, diabetes, hypothyroidism, bilateral internal carotid artery stenosis, asthma, chronic back and neck pain, and former tobacco dependence. Patient just recently had a brief hospital stay, and was discharged 01/22/2024. She had a moderate to large sized left-sided pleural effusion and underwent a thoracentesis performed by Dr. Regan and draining approximately 950 mL of bloody fluid. Patient returned to the emergency room yesterday evening complaining of now right-sided chest pain and persistent shortness of breath. She is currently lying in bed, on room air, in no acute distress. Chest x-ray in the emergency room showed cardiomegaly, mild pulmonary vascular congestion, mild interstitial edema and a possible slight enlargement of a small left-sided pleural effusion. Likely not enough for thoracentesis, however, will repeat chest ultrasound. Lasix has been resumed. Her right-sided chest pain seems to be very much musculoskeletal in nature. It is reproducible even with gentle touch or movement of her right arm. She denies any recent trauma. No heart hugger in place. The patient apparently was worried about blood clots, and a chest CT angio has been ordered by admitting. Patient denies any coughing, hemoptysis, fevers. Incisions appear clean dry and intact and approximated. CBC on arrival: WBC count 5.3, hemoglobin 7.8, hematocrit 24.4, platelets 226. CMP on arrival was unremarkable. Troponin 0.21, flat when compared to previous admission. NT proBNP 1680. EKG on arrival shows normal sinus rhythm with some nonspecific T wave abnormalities, not significantly different from prior EKG. Patient's blood pressure is quite elevated at this time. Her home blood pre ssure medications have been resumed. Progress note dated January 25, 2024. The patient is seen today in room 358. The patient is on room air. She is getting saline at 20 cc an hour. The patient was admitted with atypical right- sided chest pain, likely more musculoskeletal than anything, related to her recent open heart procedure. I spoke to cardiothoracic surgery, and their inclination is to send the patient home today. Labs today include a white count 9, hemoglobin 10.3, hematocrit 33.9, and a platelet count of 544,000. Sodium is 139, potassium 4.5, chlorides 98, CO2 32, BUN 9, creatinine 0.56. Objective - Vital Signs Vital signs: Vital Signs Temp 98.9 F 01/25/24 08:50 Pulse 67 01/25/24 08:50 Resp 18 01/25/24 08:50 BP 147/79 01/25/24 08:50 Pulse Ox 94 L 01/25/24 08:50 FiO2 Intake & Output 01/24/24 01/25/24 01/25/24 18:59 06:59 18:59 Intake Total 120 248 480 Output Total 200 Balance 120 48 480 Weight 72.4 kg Intake: Oral 120 248 480 Output: Urine 200 Other: Voiding Method Bedside Commode # Voids 1 1 - Exam No acute distress, oriented 3. Currently on room air. HEENT examination is grossly unremarkable. Mucous membranes are moist. No oral lesions. Neck supple. Full range of motion. No adenopathy thyromegaly or neck vein distention. Cardiovascular examination reveals regular rhythm rate. S1-S2 normal. No S3 or S4. No discernible murmur noted. Lungs reveal clear breath sounds. Breath sounds are equal bilaterally. No adventitious lung sounds including wheezes rhonchi or crackles. Abdomen soft bowel sounds are heard. No masses or tenderness. Extremities are intact. No cyanosis clubbing or edema. Skin is without rash or lesion. Neurologic examination is brief but nonfocal. - Labs CBC & Chem 7: 01/25/24 07:44 01/25/24 07:44 Labs: Abnormal Lab Results - Last 24 Hours (Table) 01/24/24 01/24/24 01/24/24 Range/Units 11:37 15:24 16:37 RBC (3.80-5.40) m/uL Hgb (11.4-16.0) gm/dL Hct (34.0-46.0) % MCHC (31.0-37.0) g/dL RDW (11.5-15.5) % Plt Count (150-450) k/uL Sodium 136 L (137-145) mmol/L Carbon Dioxide 32 H (22-30) mmol/L BUN 6 L (7-17) mg/dL Glucose 252 H (74-99) mg/dL POC Glucose (mg/dL) 195 H 217 H (70-110) mg/dL Magnesium 1.4 L (1.6-2.3) mg/dL 01/24/24 01/25/24 01/25/24 Range/Units 20:13 06:12 07:44 RBC 3.75 L (3.80-5.40) m/uL Hgb 10.3 L (11.4-16.0) gm/dL Hct 33.9 L (34.0-46.0) % MCHC 30.4 L (31.0-37.0) g/dL RDW 15.7 H (11.5-15.5) % Plt Count 544 H D (150-450) k/uL Sodium (137-145) mmol/L Carbon Dioxide (22-30) mmol/L BUN (7-17) mg/dL Glucose (74-99) mg/dL POC Glucose (mg/dL) 189 H 238 H (70-110) mg/dL Magnesium (1.6-2.3) mg/dL 01/25/24 01/25/24 Range/Units 07:44 11:28 RBC (3.80-5.40) m/uL Hgb (11.4-16.0) gm/dL Hct (34.0-46.0) % MCHC (31.0-37.0) g/dL RDW (11.5-15.5) % Plt Count (150-450) k/uL Sodium (137-145) mmol/L Carbon Dioxide 32 H (22-30) mmol/L BUN (7-17) mg/dL Glucose 175 H (74-99) mg/dL POC Glucose (mg/dL) 170 H (70-110) mg/dL Magnesium (1.6-2.3) mg/dL Assessment and Plan Assessment: Dyspnea, secondary to left-sided pleural effusion, status post recent left-sided thoracentesis, draining 950 mL of bloody fluid 01/22/2024. She was discharged that day, and returns to the emergency room yesterday with complaints of right- sided chest pain and persistent shortness of breath. Chest x-ray in the emergency room showed cardiomegaly, mild pulmonary vascular congestion, mild interstitial edema and a possible slight enlargement of a small left-sided pleural effusion. Likely not enough for thoracentesis, however, will repeat chest ultrasound. Lasix has been resumed. No pneumothorax noted. Right-sided chest pain, appears musculoskeletal in origin. Status post coronary artery bypass surgery on 01/04/24. Coronary artery disease with previous myocardial infarction and prior stenting . Uncontrolled hypertension, home antihypertensive medications have been resumed. Troponin leak, flat, not consistent with ACS. Postoperative anemia, no further acute blood loss reported, will continue to monitor. History of hyperlipidemia. Diabetes mellitus, type II. History of bilateral coronary artery stenosis. History of mild intermittent chronic asthma. Chronic back and neck pain. Previous marijuana use. Previous tobacco dependence. Plan: Plan dated January 25, 2024. The patient is stable, and our opinion, the patient could be discharged. The patient's pain, is likely musculoskeletal in origin, and likely related to her recent open heart procedure. We saw the patient recently, for a left-sided pleural effusion, and we did do a thoracentesis on her. Labs, x-rays, and medications are reviewed. The patient is currently on room air. No respiratory distress on this admission. Time with Patient: Less than 30
--- NOTE | 2024-01-25 12:46 | XR ---
EXAMINATION TYPE: XR chest 2V DATE OF EXAM: 01/25/2024 HISTORY: Shortness of breath. COMPARISON: 01/23/2024 TECHNIQUE: Single view of the chest is submitted. FINDINGS: Demonstrated are scattered senescent parenchymal change. Moderate left basilar opacity which may reflect a combination of effusion, infiltrate and/or atelecta sis. Patchy perihilar and basilar infiltrates and/or atelectasis noted. Pulmonary venous congestion. Left atrial clip as well as changes of median sternotomy and CABG. Hilar and mediastinal structures are within normal limits. Degenerative changes are seen of the dorsal spine. IMPRESSION: 1. Moderate left basilar opacity which may reflect a combination of effusion, infiltrate and/or atel ectasis. Patchy perihilar and basilar infiltrates and/or atelectasis noted. Pulmonary venous congesti on. Left atrial clip as well as changes of median sternotomy and CABG.
--- NOTE | 2024-01-25 15:24 | P.DS ---
Providers Date of admission: 01/23/24 22:50 Expected date of discharge: 01/25/24 Attending physician: Helen Clayton MD Consults: 01/24/24 04:27 Consult Physician Routine Consulting Provider: Sabi Pugh Consult Reason/Comments: left pleural effusion Do you want consulting provider notified?: Yes, Notify in am 01/24/24 08:04 Consult Physician Routine Consulting Provider: Bryson Bunn Consult Reason/Comments: s/p CABG 01/03 back with CP/SOB Do you want consulting provider notified?: Yes Primary care physician: [facility] Hospital Course: Discharge Diagnosis: Left-sided pleural effusion. Elevated troponins, flat secondary to recent CABG. Status post CABG x 3 on 01/04/2024. Patient to continue with daily medication regimen with amiodarone 400 mg twice daily, Lasix 40 mg daily, amlodipine 2.5 mg daily, aspirin 325 mg daily, atorvastatin 80 mg nightly, Plavix 75 mg daily, losartan 12.5 mg daily, and metoprolol 25 mg twice daily. Right sided chest pain and Shortness of breath secondary to above. Asthma with COPD, not in acute exacerbation. Continue Ventolin inhaler 4 times daily as needed for shortness of breath and/or wheezing. Hypertension. Patient to continue daily medication regimen with amlodipine 2.5 mg daily, losartan 12.5 mg daily, metoprolol 25 mg twice daily. Hyperlipidemia. Continue daily medication regimen with atorvastatin 80 mg nightly. Type II [id number]-omnksgckl diabetes mellitus. Resume metformin 1000 mg daily. Hospital Course: Patient is a pleasant 53-year-old female with a past medical history of CAD with stent followed by CABG x 3 on 01/04/2024, recent left-sided pleural effusion status postthoracentesis with removal of 950 cc of fluid, asthma with COPD, hypertension, hyperlipidemia, hypothyroidism, rheumatoid arthritis, benign pituitary tumor, and type II [id number] diabetes mellitus. She returned to the emergency department on 01/23/2024 again with a chief complaint of chest pain and shortness of breath. Patient underwent evaluation in the emergency department. Vital signs upon arrival show blood pressure 163/77, heart rate 63, respiratory rate 18, temp 98.6 F, and SpO2 of 100% on 2 L. EKG completed showing normal sinus rhythm at 63 bpm with T wave inversion in lateral leads I, aVL, and V6. Chest x-ray completed showing cardiomegaly with pulmonary vascular congestion and interstitial edema similar to previous and slight enlargement of small to moderate left pleural effusion. Labs were completed and reviewed. CBC showing normocytic anemia with hemoglobin of 7.8. BMP unremarkable. Magnesium low at 1.4. Liver profile normal findings. Troponin elevated, but stable when compared to previous at 0.210. Patient was admitted to observation unit under our services with consultation to pulmonology and cardiothoracic surgery team. She was evaluated and started on IV diuresis. X- ray repeated and stable. Patient cleared from cardiothoracic surgery and cleared from pulmonology. Patient is medically stable for discharge at this time. Patient instructed she will need to follow-up outpatient with her PCP in 1 to 2 days and with cardiothoracic surgery team in 1 week. Physical exam: Vital signs reviewed and stable. General: Nontoxic, no distress and appears stated age. Derm: Skin warm and dry, normal coloration for ethnicity. Head: Atraumatic, normocephalic and symmetric. Eyes: EOMs intact, no lid lag, and anicteric sclera Mouth: no lip lesions, mucus membranes moist Cardiovascular: regular rate and rhythm with normal S1S2, soft systolic murmur, positive posterior tibial pulses bilaterally, and cap refill < 2 seconds. Lungs: Respirations even, regular, and unlabored on room air. Lungs slightly diminished left lower lobe otherwise clear to auscultation with no wheezes, rhonchi, or rales noted.. Abdominal: soft, nontender to palpation, no guarding, no appreciable organomegaly Ext: ROM intact. No gross muscle atrophy, no edema, no contractures Neuro: Speech clear, face symmetrical and CN II-XII grossly intact with no noted focal neuro deficits Psych: Alert and oriented to person, place, time, and situation. Appropriate and pleasant affect. A total of 35 minutes of time were spent preparing this complex discharge summary. Pt was discharged on 01/25/2024 at 3:08 PM Patient was seen independently by Nurse Practitioner. This document was prepared using [employer] dictation software. Please allow for errors in track machine operator repairer while rare they do occur. Luis Mckee NP rendered care for this patient independently, reviewed the findings and plan as documented in the note above. I did not physically speak with or examine the patient on this date. Patient Condition at Discharge: Stable Plan - Discharge Summary Discharge Rx Participant: No New Discharge Prescriptions: Continue Atorvastatin [Lipitor] 80 mg PO HS Albuterol Inhaler [Ventolin Hfa Inhaler] 2 puff INHALATION RT-QID PRN PRN Reason: Shortness Of Breath Docusate [Colace] 100 mg PO BID PRN PRN Reason: Constipation Clopidogrel [Plavix] 75 mg PO DAILY #30 tab Acetaminophen Tab [Tylenol] 1,000 mg PO Q6HR PRN tab PRN Reason: Fever And/ Or Pain Aspirin EC [Ecotrin] 325 mg PO DAILY Lactulose 20 gm PO DAILY PRN PRN Reason: Constipation Furosemide [Lasix] 40 mg PO DIRECTED Potassium Chloride ER [K-Dur 20] 20 meq PO DIRECTED metFORMIN HCL [Glucophage] 1,000 mg PO DAILY Ondansetron Odt [Zofran ODT] 4 mg PO Q12HR PRN PRN Reason: Nausea Amiodarone [Cordarone] 400 mg PO BID #56 tab Losartan [Cozaar] 12.5 mg PO DAILY@1400 #30 tab Ferrous Sulfate [Iron (65 MG Elemental)] 325 mg PO BID-W/MEALS #14 tab Metoprolol Tartrate [Lopressor] 25 mg PO BID #60 tab amLODIPine [Norvasc] 2.5 mg PO DAILY@1200 #30 tab Pantoprazole [Protonix] 40 mg PO BID-W/MEALS #60 tab Ascorbic Acid [Vitamin C] 500 mg PO BID-W/MEALS #14 tab Magnesium Oxide [Mag-Ox] 400 mg PO DIRECTED Discharge Medication List Atorvastatin [Lipitor] 80 mg PO HS 05/05/20 [History] metFORMIN HCL [Glucophage] 1,000 mg PO DAILY 01/19/22 [History] Albuterol Inhaler [Ventolin Hfa Inhaler] 2 puff INHALATION RT-QID PRN 12/02/23 [History] Ondansetron Odt [Zofran ODT] 4 mg PO Q12HR PRN 12/02/23 [History] Docusate [Colace] 100 mg PO BID PRN 12/04/23 [History] Acetaminophen Tab [Tylenol] 1,000 mg PO Q6HR PRN tab 01/08/24 [Rx] Amiodarone [Cordarone] 400 mg PO BID #56 tab 01/08/24 [Rx] Ascorbic Acid [Vitamin C] 500 mg PO BID-W/MEALS #14 tab 01/08/24 [Rx] Clopidogrel [Plavix] 75 mg PO DAILY #30 tab 01/08/24 [Rx] Ferrous Sulfate [Iron (65 MG Elemental)] 325 mg PO BID-W/MEALS #14 tab 01/08/24 [Rx] Losartan [Cozaar] 12.5 mg PO DAILY@1400 #30 tab 01/08/24 [Rx] Metoprolol Tartrate [Lopressor] 25 mg PO BID #60 tab 01/08/24 [Rx] Pantoprazole [Protonix] 40 mg PO BID-W/MEALS #60 tab 01/08/24 [Rx] amLODIPine [Norvasc] 2.5 mg PO DAILY@1200 #30 tab 01/08/24 [Rx] Aspirin EC [Ecotrin] 325 mg PO DAILY 01/22/24 [History] Furosemide [Lasix] 40 mg PO DIRECTED 01/23/24 [History] Lactulose 20 gm PO DAILY PRN 01/23/24 [History] Magnesium Oxide [Mag-Ox] 400 mg PO DIRECTED 01/23/24 [History] Potassium Chloride ER [K-Dur 20] 20 meq PO DIRECTED 01/23/24 [History] Follow up Appointment(s)/Referral(s): [facility]] - 1-2 days (Office closed for the weekend. Please call on Sunday to schedule a follow-up appointment) Bryson Bunn MD [STAFF PHYSICIAN] - 01/30/24 12:30 pm () Activity/Diet/Wound Care/Special Instructions: Activity: As tolerated. Take breaks as needed. Diet: Heart healthy and carb consistent diet. Avoid salts, or foods with hidden salts such as canned or boxed foods and frozen dinners. Extra salt makes your heart work harder and traps the fluid in your body for longer. Special Instructions: Take all of your medications as directed and remember to keep all of your doctor's appointments and follow-up as needed. Thank you for allowing us to participate in your care, it was truly a pleasure having you for our patient!!! . Discharge Disposition: HOME SELF-CARE
[2024-01-25 15:34] VITALS: BP 159/80; PULSE 63; TEMP 98.3
== END 2024-01-25 16:01 | disposition home or self-care (01) ==
LOC: EC 17:23 → 3SCARD 22:50
PROVIDERS: ADMIT Internal Medicine; ATTEND Internal Medicine
DX: J90 Pleural effusion, not elsewhere classified (principal); I25.10 Atherosclerotic heart disease of native coronary artery without angina pectoris; J44.9 Chronic obstructive pulmonary disease, unspecified; E78.5 Hyperlipidemia, unspecified; E03.9 Hypothyroidism, unspecified; D64.9 Anemia, unspecified; E11.9 Type 2 diabetes mellitus without complications; F41.9 Anxiety disorder, unspecified; F32.A Depression, unspecified; I65.23 Occlusion and stenosis of bilateral carotid arteries; I50.9 Heart failure, unspecified; I11.0 Hypertensive heart disease with heart failure; I25.2 Old myocardial infarction; M06.9 Rheumatoid arthritis, unspecified; D62 Acute posthemorrhagic anemia; Z95.5 Presence of coronary angioplasty implant and graft; Z87.891 Personal history of nicotine dependence; Z82.49 Family history of ischemic heart disease and other diseases of the circulatory system; Z79.02 Long term (current) use of antithrombotics/antiplatelets; Z79.84 Long term (current) use of oral hypoglycemic drugs; Z79.899 Other long term (current) drug therapy; Z79.82 Long term (current) use of aspirin; Z95.1 Presence of aortocoronary bypass graft; G89.29 Other chronic pain
CPT/HCPCS: 96361; 96365; 96366; 96367; 96375 ×2; 96376 ×2; 99285; 36415; 94640; 94760; 93005; 97161; 36410; 76937; 83880; 80053; 80048 ×2; 83735 ×2; 84484; 85025 ×2; 85610; 85730; 83036; 71045; 71046; 76604; G0378 ×3; J1940 ×2; J2405 ×2; J1170 ×2; J3475; Q9967

== ENCOUNTER 2024-02-29 19:17 | Observation (INO) | payer OTHER ==
--- NOTE | 2024-02-29 20:13 | ED ---
General Adult HPI - General Source: patient Mode of arrival: wheelchair Limitations: no limitations <Mega Lange - Last Filed: 02/29/24 20:42> <Butch Byrne - Last Filed: 02/29/24 21:31> - General Chief complaint: Chest Pain Stated complaint: Chest pain,Sob Time Seen by Provider: 02/29/24 19:50 - History of Present Illness Initial comments: Dictation was produced using [employer] dictation software. please excuse any grammatical, word or spelling errors. Chief Complaint: 53-year-old female presents emergency department chest pain History of Present Illness: Patient 53-year-old female presents emergency department sharp substernal chest pain. In December patient had a CABG. States that the pain is sharp worse with deep inspiration. Patient states she has been struggling with this pain ever since the surgery. Denies any pressure. Pain is nonradiating or associated diaphoresis. Patient states that the pain is severe and that her chest is really tender. The ROS documented in this emergency department record has been reviewed and confirmed by me. Those systems with pertinent positive or negative responses have been documented in the HPI. All other systems are other negative and/or noncontributory. (Mega Lange) - Related Data Home Medications Medication Instructions Recorded Confirmed Atorvastatin [Lipitor] 80 mg PO HS 05/05/20 01/23/24 metFORMIN HCL [Glucophage] 1,000 mg PO DAILY 01/19/22 01/23/24 Albuterol Inhaler [Ventolin Hfa 2 puff INHALATION RT-QID PRN 12/02/23 01/23/24 Inhaler] Ondansetron Odt [Zofran ODT] 4 mg PO Q12HR PRN 12/02/23 01/23/24 Docusate [Colace] 100 mg PO BID PRN 12/04/23 01/23/24 Aspirin EC [Ecotrin] 325 mg PO DAILY 01/22/24 01/23/24 Furosemide [Lasix] 40 mg PO DIRECTED 01/23/24 01/23/24 Lactulose 20 gm PO DAILY PRN 01/23/24 01/23/24 Magnesium Oxide [Mag-Ox] 400 mg PO DIRECTED 01/23/24 01/23/24 Potassium Chloride ER [K-Dur 20] 20 meq PO DIRECTED 01/23/24 01/23/24 Previous Rx's Medication Instructions Recorded Acetaminophen Tab [Tylenol] 1,000 mg PO Q6HR PRN tab 01/08/24 Amiodarone [Cordarone] 400 mg PO BID #56 tab 01/08/24 Ascorbic Acid [Vitamin C] 500 mg PO BID-W/MEALS #14 tab 01/08/24 Clopidogrel [Plavix] 75 mg PO DAILY #30 tab 01/08/24 Ferrous Sulfate [Iron (65 MG 325 mg PO BID-W/MEALS #14 tab 01/08/24 Elemental)] Losartan [Cozaar] 12.5 mg PO DAILY@1400 #30 tab 01/08/24 Metoprolol Tartrate [Lopressor] 25 mg PO BID #60 tab 01/08/24 Pantoprazole [Protonix] 40 mg PO BID-W/MEALS #60 tab 01/08/24 amLODIPine [Norvasc] 2.5 mg PO DAILY@1200 #30 tab 01/08/24 Allergies Allergy/AdvReac Type Severity Reaction Status Date / Time peanut Allergy HIVES Verified 02/29/24 19:22 rice Allergy Rash/Hives Verified 02/29/24 19:22 seasonal Allergy Rash/Hives Uncoded 02/29/24 19:22 Review of Systems ROS Other: All systems not noted in ROS Statement are negative. <Mega Lange - Last Filed: 02/29/24 20:42> ROS Other: All systems not noted in ROS Statement are negative. <Butch Byrne - Last Filed: 02/29/24 21:31> ROS Statement: Those systems with pertinent positive or pertinent negative responses have been documented in the HPI. Past Medical History Past Medical History: Asthma, Coronary Artery Disease (CAD), COPD, Diabetes Mellitus, Hyperlipidemia, Hypertension, Myocardial Infarction (NV), Musculoskeletal Disorder, Rheumatoid Arthritis (RA), Thyroid Disorder Additional Past Medical History / Comment(s): Back Pain, right shoulder pain, Hx Pituitary Tumor, BENIGN. Thyroid disorder. 3 heart attacks-most recent March 2022, 3 stents total, neuropathy; left-sided pleural effusion Last Myocardial Infarction Date:: 10/29/22 History of Any Multi-Drug Resistant Organisms: None Reported Past Surgical History: Section, Coronary Bypass/CABG, Heart Catheteriza tion With Stent, Tubal Ligation Additional Past Surgical History / Comment(s): Pituitary Tumor Removed. colonoscopy, [facility] PROCEDURES stents x3 c section x4; three-vessel off- pump CABG January 04, 2024; left-sided thoracentesis with removal of 950 mL fluid on January 22, 2024 Past Anesthesia/Blood Transfusion Reactions: No Reported Reaction Date of Last Stent Placement:: March 2022 Past Psychological History: Anxiety, Depression Smoking Status: Former smoker Past Alcohol Use History: None Reported Past Drug Use History: Marijuana - Past Family History Mother History Unknown: Yes Family Medical History: Deep Vein Thrombosis (DVT) Additional Family Medical History / Comment(s): Mother is alive at age 67 with history of coronary artery disease and three-vessel CABG. Daughter(s) History Unknown: Yes Family Medical History: Deep Vein Thrombosis (DVT) Additional Family Medical History / Comment(s): Patient has a total of 9 childr en with no major medical problems. Father History Unknown: Yes Family Medical History: Cancer Additional Family Medical History / Comment(s): Father is alive with no history of coronary artery disease. History of Prostate Cancer Sister(s) History Unknown: Yes Additional Family Medical History / Comment(s): The patient has 4 sisters and 1 brother. One sister had a myocardial infraction at age 40. <Mega Lange - Last Filed: 02/29/24 20:42> General Exam Limitations: no limitations <Mega Lange - Last Filed: 02/29/24 20:42> - General Exam Comments Initial Comments: PHYSICAL EXAM: General Impression: Alert and oriented x3, acute distress secondary pain HEENT: Normocephalic atraumatic, extra-ocular movements intact, pupils equal and reactive to light bilaterally, mucous membranes moist. Cardiovascular: Heart regular rate and rhythm Chest: Able to complete full sentences, no retractions, no tachypnea, exquisite palpatory tenderness to the anterior chest Abdomen: abdomen soft, non-tender, non-distended, no organomegaly Musculoskeletal: Pulses present and equal in all extremities, no peripheral edema Motor: no focal deficits noted Neurological: CN II-XII grossly intact, no focal motor or sensory deficits noted Skin: Intact with no visualized rashes (Mega Lange) Course Vital Signs 02/29/24 19:22 Temperature 98.2 F Pulse Rate 72 Respiratory 28 H Rate Blood Pressure 146/80 O2 Sat by Pulse 98 Oximetry EKG Findings - EKG Comments: EKG Findings:: My EKG interpretation: Ventricular rate 69, sinus rhythm,. 144, QRS 101, QTc 4 7. No W[place] prolongation, no QTC prolongation, no ST or T-wave changes noted. Overall, this EKG is unremarkable <Mega Lange - Last Filed: 02/29/24 20:42> Medical Decision Making - Lab Data Result diagrams: 02/29/24 20:21 <Mega Lange - Last Filed: 02/29/24 20:42> - Lab Data Result diagrams: 02/29/24 20:21 02/29/24 20:21 <Butch Byrne - Last Filed: 02/29/24 21:31> - Medical Decision Making Was pt. sent in by a medical professional or institution (, PA, LIFE CARE PLANNER, urgent care, hospital, or jail...) When possible be specific @ -No Did you speak to anyone other than the patient for history (EMS, parent, family, police, friend...)? What history was obtained from this source @ -No Did you review nursing and triage notes (agree or disagree)? Why? @ -I reviewed and agree with nursing and triage notes Were old charts reviewed (outside hosp., previous admission, EMS record, old EKG, old radiological studies, urgent care reports/EKG's, jail records)? Report findings @ -No old charts were reviewed Differential Diagnosis (chest pain, altered mental status, abdominal pain women, abdominal pain men, vaginal bleeding, musculoskeletal, weakness, fever, d yspnea, syncope, headache, dizziness, GI bleed, back pain, seizure, CVA, palpatations, mental health)? @ -Differential Chest Pain: Stable Angina, Unstable Angina, STEMI, NSTEMI Aortic Dissection, Pneumothorax, Musculoskeletal, Esophageal Spasm GERD, Cholecystitis, Pancreatitis, Zoster, this is not meant to be an all-inclusive list. EKG interpreted by me (3pts min.). @ -See above X-rays interpreted by me (1pt min.). @ -Pending CT interpreted by me (1pt min.). @ -None done U/S interpreted by me (1pt. min.). @ -None done What testing was considered but not performed or refused? (CT, X-rays, U/S, labs)? Why? @ -None What meds were considered but not given or refused? Why? @ -None Did you discuss the management of the patient with other professionals (professionals i.e. , PA, LIFE CARE PLANNER, lab, RT, psych nurse, manager social services, weatherization coordinator, teacher, earth science technical officer, field nurse case manager)? Give summary @ -No Was smoking cessation discussed for >3mins.? @ -No Was critical care preformed (if so, how long)? @ -No Were there social determinants of health that impacted care today? How? (Homelessness, low income, unemployed, alcoholism, drug addiction, transportation, low edu. Level, literacy, decrease access to med. care, long-term, rehab)? @ -No Was there de-escalation of care discussed even if they declined (Discuss DNR or withdrawal of care, Hospice)? DNR status @ -No What co-morbidities impacted this encounter? (DM, HTN, Smoking, COPD, CAD, Cancer, CVA, ARF, Chemo, Hep., AIDS, mental health diagnosis, sleep apnea, morbid obesity)? @ -None Was patient admitted / discharged? Hospital course, mention meds given and route, prescriptions, significant lab abnormalities, going to OR and other pert inent info. @ -53-year-old female presents to the emergency department with atypical chest pain typical features. Patient appears to be distressed. She has reproducible tenderness to the anterior chest. Patient care signed out to Dr. Byrne at 9:00 PM Undiagnosed new problem with uncertain prognosis? @ -No Drug Therapy requiring intensive monitoring for toxicity (Heparin, Nitro, Insulin, Cardizem)? @ -No Were any procedures done? @ -No Diagnosis/symptom? Acute, or Chronic, or Acute on Chronic? Uncomplicated (without systemic symptoms) or Complicated (systemic symptoms)? @ -Chest pain Side effects of treatment? @ -No Exacerbation, Progression, or Severe Exacerbation? @ -No Poses a threat to life or bodily function? How? (Chest pain, USA, NV, pneumonia, PE, COPD, DKA, ARF, appy, cholecystitis, CVA, Diverticulitis, Homicidal, Suicidal, threat to staff... and all critical care pts) @ -yes (Mega Lange) Chest x-ray, 2 view reviewed by myself, improved aeration of the left lung base with reduced effusion, persistent cardiomegaly, and linear opacity in the right lung base which is improved from prior. Patient care signed out at shift change awaiting laboratory testing and reevaluation. Initial laboratory testing is unremarkable, including negative troponin. Patient continues to have pain. Patient will be observed overnight with serial cardiac enzymes. Case discussed with Dr. Knox. ([facility] - Lab Data Lab Results 02/29/24 02/29/24 02/29/24 Range/Units 20:21 20:21 20:21 WBC 6.7 (3.8-10.6) k/uL RBC 4.12 (3.80-5.40) m/uL Hgb 12.0 (11.4-16.0) gm/dL Hct 35.6 (34.0-46.0) % MCV 86.2 (80.0-100.0) fL MCH 29.0 (25.0-35.0) pg MCHC 33.7 (31.0-37.0) g/dL RDW 16.7 H (11.5-15.5) % Plt Count 256 (150-450) k/uL MPV 7.9 Neutrophils % 53 % Lymphocytes % 37 % Monocytes % 5 % Eosinophils % 3 % Basophils % 0 % Neutrophils # 3.5 (1.3-7.7) k/uL Lymphocytes # 2.5 (1.0-4.8) k/uL Monocytes # 0.3 (0-1.0) k/uL Eosinophils # 0.2 (0-0.7) k/uL Basophils # 0.0 (0-0.2) k/uL Anisocytosis Slight PT 10.6 (10.0-12.5) sec INR 1.0 (<1.2) APTT 24.3 (22.0-30.0) sec Sodium 138 (137-145) mmol/L Potassium 3.8 (3.5-5.1) mmol/L Chloride 102 (98-107) mmol/L Carbon Dioxide 30 (22-30) mmol/L Anion Gap 6 mmol/L BUN 16 (7-17) mg/dL Creatinine 0.62 (0.52-1.04) mg/dL Est GFR (CKD-EPI)AfAm >90 (>60 ml/min/1.73 sqM) Est GFR (CKD-EPI)NonAf >90 (>60 ml/min/1.73 sqM) Glucose 182 H (74-99) mg/dL Calcium 9.1 (8.4-10.2) mg/dL Magnesium 1.4 L (1.6-2.3) mg/dL Total Bilirubin 0.4 (0.2-1.3) mg/dL AST 23 (14-36) U/L ALT 18 (4-34) U/L Alkaline Phosphatase 106 (38-126) U/L Troponin I (0.000-0.034) ng/mL Total Protein 7.1 (6.3-8.2) g/dL Albumin 4.0 (3.5-5.0) g/dL 02/29/24 Range/Units 20:21 WBC (3.8-10.6) k/uL RBC (3.80-5.40) m/uL Hgb (11.4-16.0) gm/dL Hct (34.0-46.0) % MCV (80.0-100.0) fL MCH (25.0-35.0) pg MCHC (31.0-37.0) g/dL RDW (11.5-15.5) % Plt Count (150-450) k/uL MPV Neutrophils % % Lymphocytes % % Monocytes % % Eosinophils % % Basophils % % Neutrophils # (1.3-7.7) k/uL Lymphocytes # (1.0-4.8) k/uL Monocytes # (0-1.0) k/uL Eosinophils # (0-0.7) k/uL Basophils # (0-0.2) k/uL Anisocytosis PT (10.0-12.5) sec INR (<1.2) APTT (22.0-30.0) sec Sodium (137-145) mmol/L Potassium (3.5-5.1) mmol/L Chloride (98-107) mmol/L Carbon Dioxide (22-30) mmol/L Anion Gap mmol/L BUN (7-17) mg/dL Creatinine (0.52-1.04) mg/dL Est GFR (CKD-EPI)AfAm (>60 ml/min/1.73 sqM) Est GFR (CKD-EPI)NonAf (>60 ml/min/1.73 sqM) Glucose (74-99) mg/dL Calcium (8.4-10.2) mg/dL Magnesium (1.6-2.3) mg/dL Total Bilirubin (0.2-1.3) mg/dL AST (14-36) U/L ALT (4-34) U/L Alkaline Phosphatase (38-126) U/L Troponin I <0.012 (0.000-0.034) ng/mL Total Protein (6.3-8.2) g/dL Albumin (3.5-5.0) g/dL Disposition <Mega Lange - Last Filed: 02/29/24 20:42> Is patient prescribed a controlled substance at d/c from ED?: No Time of Disposition: 21:31 <Butch Byrne - Last Filed: 02/29/24 21:31> Clinical Impression: Chest pain Disposition: ADMITTED IP TO THIS HOSP Condition: Stable Referrals: Gabriela Urban NPC [Primary Care Provider] - 1-2 days
[2024-02-29] MEDS: MORPHINE SULFATE 4 MG/ML SYRINGE IV STA (20:31)
[2024-02-29 20:35] LABS: Anisocytosis Slight; Basophils % (A) 0 %; Eosinophils # (A) 0.2 k/uL (0-0.7); Eosinophils % (A) 3 %; HCT 35.6 % (34.0-46.0); Lymphocytes # (A) 2.5 k/uL (1.0-4.8); Lymphocytes % (A) 37 %; MCHC 33.7 g/dL (31.0-37.0); MCV 86.2 fL (80.0-100.0); Mean Platelet Volume 7.9; Monocytes # (A) 0.3 k/uL (0-1.0); Monocytes % (A) 5 %; Neutrophils # (A) 3.5 k/uL (1.3-7.7); Neutrophils % (A) 53 %; Platelet Count 256 k/uL (150-450); RBC 4.12 m/uL (3.80-5.40); RDW 16.7 % (11.5-15.5); WBC 6.7 k/uL (3.8-10.6)
[2024-02-29 20:51] LABS: ALT 18 U/L (4-34); African American GFR (CKD) >90 (>60 ml/min/1.73 sqM); Anion Gap 6 mmol/L; Blood Urea Nitrogen 16 mg/dL (7-17); Calcium 9.1 mg/dL (8.4-10.2); Carbon Dioxide 30 mmol/L (22-30); Chloride 102 mmol/L (98-107); Glucose 182 mg/dL (74-99); Non-African American GFR(CKD) >90 (>60 ml/min/1.73 sqM); Sodium 138 mmol/L (137-145); Total Bilirubin 0.4 mg/dL (0.2-1.3); Total Protein 7.1 g/dL (6.3-8.2)
[2024-02-29 20:53] LABS: AST 23 U/L (14-36); Alkaline Phosphatase 106 U/L (38-126); Magnesium 1.4 mg/dL (1.6-2.3); Potassium 3.8 mmol/L (3.5-5.1)
[2024-02-29 20:57] LABS: Partial Thromboplastin Time 24.3 sec (22.0-30.0); Prothrombin Time 10.6 sec (10.0-12.5)
[2024-02-29] MEDS ORDERED: HYDROmorphone 0.5 MG/0.5 ML SYRINGE IVP PRN (21:29)
[2024-02-29] MEDS ORDERED: NALOXONE 0.4 MG/ML 1 ML VIAL IV PRN (21:29)
[2024-02-29] MEDS ORDERED: ACETAMINOPHEN TAB 325 MG TAB PO PRN (21:29)
[2024-02-29] MEDS: HYDROmorphone 0.5 MG/0.5 ML SYRINGE IVP STA (22:15)
[2024-02-29] MEDS: IPRATROPIUM-ALBUTEROL 3 ML NEB INHALATION STA (23:03)
--- NOTE | 2024-03-01 03:45 | XR ---
EXAMINATION TYPE: XR chest 2V DATE OF EXAM: 02/29/2024 8:58 PM CLINICAL INDICATION:Female, 53 years old with history of Chest Pain; [facility] COMPARISON: 01/25/2024 TECHNIQUE: XR chest 2V. Frontal and lateral views of the chest.. FINDINGS: Monitor leads, left atrial appendage occlusion device, sternotomy wires again seen. Mild to moderate cardiomegaly. Mild pulmonary vascular congestion. Low lung volumes with bibasilar opacities likely representing atelectasis, with an improved appearanc e compared to prior. Decreased blunting of the left costophrenic angle. No visualized pneumothorax. Redemonstrated scattered senescent parenchymal changes. IMPRESSION: 1. Mild to moderate cardiomegaly with mild congestive changes, similar to before. 2. Interval improved aeration of the lung bases, especially the left, with decreased blunting of the left costophrenic angle suggesting diminished effusion.
--- NOTE | 2024-03-01 03:59 | P.HPIM ---
History of Present Illness H&P Date: 02/29/24 Patient is a 53-year-old female with a PMH of CAD status post CABG on 01/04/2024, COPD, hypertension, hyperlipidemia, type II DM, who presents to the emergency room with complaints of chest discomfort. Notes her pain has been ongoing for the past several weeks and has been gradually worsening, pleuritic and nonpleuritic in nature, worsened with exertion, 10 out of 10 at maximal intensity, with associated shortness of breath. Reports significant tenderness at her incision site as well as the rest of her chest. Denies experiencing cough, fever, chills, nausea, vomiting, abdominal pain, diarrhea. Chest x-ray in the emergency room revealed cardiomegaly with mild congestive changes. EKG revealed sinus rhythm with diffuse T wave flattening at 69 bpm as reviewed by me. Laboratory evaluation was remarkable for troponin less than 0.012, magnesium 1.4, WBC count 6.7, hemoglobin 12.0, sodium 138, potassium 3.8. ED documentation reviewed and case discussed with ED provider. Review of systems: Pertinent positives and negatives as discussed in HPI, a complete review of systems was performed and all other systems are negative. Physical examination: Vital signs reviewed General: non toxic, no distress, appears at stated age, normal weight Derm: no unusual rashes/lesions, warm Head: atraumatic, normocephalic, symmetric Eyes: EOMI, no lid lag, anicteric sclera, pupils equal round reactive to light ENT: Nose and ears atraumatic Neck: No cervical lymphadenopathy, trachea midline, supple Mouth: no lip lesion, mucus membranes moist Cardiovascular: S1S2 reg, no murmur, positive dorsalis pedis pulse bilateral, no edema, sternotomy incision healing well with hyperesthesia noted Lungs: CTA bilateral, no rhonchi, no rales, no accessory muscle use Abdominal: soft, nontender to palpation, no guarding Ext: muscle strength 5 out of 5 in all 4 extremities grossly, no gross muscle atrophy, no contractures, Neuro: CN II-XI grossly intact, no gross focal neuro deficits Psych: Alert, oriented, appropriate affect Assessment: Chest pain with atypical features, rule out ACS Hypomagnesemia Chronic conditions: COPD, hypertension, hyperlipidemia, type II DM Imaging: Chest x-ray in the emergency room revealed cardiomegaly with mild congestive changes. EKG revealed sinus rhythm with diffuse T wave flattening at 69 bpm as reviewed by me. Data Review: Laboratory evaluation was remarkable for troponin less than 0.012, magnesium 1.4, WBC count 6.7, hemoglobin 12.0, sodium 138, potassium 3.8. Plan: Cardiology consulted Cardiac monitoring Trend troponin Continue with aspirin, statin Insulin sliding scale blood glucose monitoring Replace magnesium and monitor for resolution Resume home medications once reconciled DVT prophylaxis: Lovenox Subq The patient is admitted with an anticipated less than 2 midnight stay for evaluation of chest pain CODE STATUS: Full Code Discussed with: Patient Anticipated discharge place: Home Past Medical History Past Medical History: Asthma, Coronary Artery Disease (CAD), COPD, Diabetes Mellitus, Hyperlipidemia, Hypertension, Myocardial Infarction ([place]), Musculoskeletal Disorder, Rheumatoid Arthritis (RA), Thyroid Disorder Additional Past Medical History / Comment(s): Back Pain, right shoulder pain, Hx Pituitary Tumor, BENIGN. Thyroid disorder. 3 heart attacks-most recent March 2022, 3 stents total, neuropathy; left-sided pleural effusion Last Myocardial Infarction Date:: 10/29/22 History of Any Multi-Drug Resistant Organisms: None Reported Past Surgical History: Section, Coronary Bypass/CABG, Heart Catheterization With Stent, Tubal Ligation Additional Past Surgical History / Comment(s): Pituitary Tumor Removed. colonoscopy, PAIN CLINIC PROCEDURES stents x3 c section x4; three-vessel off- pump CABG January 04, 2024; left-sided thoracentesis with removal of 950 mL fluid on January 22, 2024 Past Anesthesia/Blood Transfusion Reactions: No Reported Reaction Date of Last Stent Placement:: March 2022 Past Psychological History: Anxiety, Depression Smoking Status: Former smoker Past Alcohol Use History: None Reported Past Drug Use History: Marijuana - Past Family History Mother History Unknown: Yes Family Medical History: Deep Vein Thrombosis (DVT) Additional Family Medical History / Comment(s): Mother is alive at age 67 with history of coronary artery disease and three-vessel CABG. Daughter(s) History Unknown: Yes Family Medical History: Deep Vein Thrombosis (DVT) Additional Family Medical History / Comment(s): Patient has a total of 9 children with no major medical problems. Father History Unknown: Yes Family Medical History: Cancer Additional Family Medical History / Comment(s): Father is alive with no history of coronary artery disease. History of Prostate Cancer Sister(s) History Unknown: Yes Additional Family Medical History / Comment(s): The patient has 4 sisters and 1 brother. One sister had a myocardial infraction at age 40. Medications and Allergies Home Medications Medication Instructions Recorded Confirmed Type Atorvastatin [Lipitor] 80 mg PO HS 05/05/20 01/23/24 History metFORMIN HCL [Glucophage] 1,000 mg PO DAILY 01/19/22 01/23/24 History Albuterol Inhaler [Ventolin Hfa 2 puff INHALATION RT-QID PRN 12/02/23 01/23/24 History Inhaler] Ondansetron Odt [Zofran ODT] 4 mg PO Q12HR PRN 12/02/23 01/23/24 History Docusate [Colace] 100 mg PO BID PRN 12/04/23 01/23/24 History Acetaminophen Tab [Tylenol] 1,000 mg PO Q6HR PRN tab 01/08/24 01/23/24 Rx Amiodarone [Cordarone] 400 mg PO BID #56 tab 01/08/24 01/23/24 Rx Ascorbic Acid [Vitamin C] 500 mg PO BID-W/MEALS #14 tab 01/08/24 01/23/24 Rx Clopidogrel [Plavix] 75 mg PO DAILY #30 tab 01/08/24 01/23/24 Rx Ferrous Sulfate [Iron (65 MG 325 mg PO BID-W/MEALS #14 tab 01/08/24 01/23/24 Rx Elemental)] Losartan [Cozaar] 12.5 mg PO DAILY@1400 #30 tab 01/08/24 01/23/24 Rx Metoprolol Tartrate [Lopressor] 25 mg PO BID #60 tab 01/08/24 01/23/24 Rx Pantoprazole [Protonix] 40 mg PO BID-W/MEALS #60 tab 01/08/24 01/23/24 Rx amLODIPine [Norvasc] 2.5 mg PO DAILY@1200 #30 tab 01/08/24 01/23/24 Rx Aspirin EC [Ecotrin] 325 mg PO DAILY 01/22/24 01/23/24 History Furosemide [Lasix] 40 mg PO DIRECTED 01/23/24 01/23/24 History Lactulose 20 gm PO DAILY PRN 01/23/24 01/23/24 History Magnesium Oxide [Mag-Ox] 400 mg PO DIRECTED 01/23/24 01/23/24 History Potassium Chloride ER [K-Dur 20] 20 meq PO DIRECTED 01/23/24 01/23/24 History Allergies Allergy/AdvReac Type Severity Reaction Status Date / Time peanut Allergy HIVES Verified 02/29/24 19:22 rice Allergy Rash/Hives Verified 02/29/24 19:22 seasonal Allergy Rash/Hives Uncoded 02/29/24 19:22 Physical Exam Vitals: Vital Signs Temp Pulse Pulse Resp BP Pulse Ox 02/29/24 22:14 62 02/29/24 22:11 63 18 146/77 96 02/29/24 19:22 98.2 F 72 28 H 146/80 98 Intake and Output 02/29/24 02/29/24 03/01/24 14:59 22:59 06:59 Other: Weight 72.575 kg Results CBC & Chem 7: 02/29/24 20:21 02/29/24 20:21 Labs: Abnormal Lab Results - Last 24 Hours (Table) 02/29/24 02/29/24 Range/Units 20:21 20:21 RDW 16.7 H (11.5-15.5) % Glucose 182 H (74-99) mg/dL Magnesium 1.4 L (1.6-2.3) mg/dL
[2024-03-01] MEDS: ASPIRIN 325 MG TAB PO ONE (05:18)
[2024-03-01] MEDS: ATORVASTATIN 80 MG TAB PO ONE (05:18)
[2024-03-01] MEDS: MAGNESIUM SULFATE-D5W PMX 1 GM in DEXTROSE/WATER 1 100ML.BAG IVPB SCH (05:18)
[2024-03-01 06:32] LABS: Glucose,Whole Blood 211 mg/dL (70-110)
[2024-03-01] MEDS: INSULIN ASPART (NovoLOG) 100 UNIT/ML VIAL SQ SCH (06:59)
[2024-03-01 07:42] VITALS: RESP 14
[2024-03-01] MEDS: ENOXAPARIN 40 MG/0.4 ML SYRINGE SQ SCH (10:29)
[2024-03-01] MEDS: ASPIRIN 81 MG PO SCH (10:30)
[2024-03-01] MEDS: GABAPENTIN 300 MG CAP PO SCH (10:30)
--- NOTE | 2024-03-01 11:41 | P.GSCN ---
History of Present Illness Consult date: 03/01/24 Reason for Consult: Sternal pain Requesting physician: Gauri Kraft History of present illness: The patient is a 53-year-old -[place] female patient who follows outpatient with Garbiela Urban for primary care and Dr. Ojeda for cardiology. She has a previous medical history of coronary artery disease with previous myocardial infarction and prior stenting of the left anterior descending artery as well as left circumflex/OM, stable angina, status post three-vessel off-pump CABG 01/04/24, subsequent left-sided pleural effusion status post thoracentesis, hypertension, hyperlipidemia, diabetes, hypothyroid, bilateral internal carotid artery stenosis, asthma, chronic back and neck pain, previous marijuana and tobacco dependence, syncope, and family history of premature coronary artery disease. She was hospitalized recently after her open heart surgery and was discharged to home with home care on January 08, 2024. She had been recovering at home without incident. Unfortunately she had a couple of observation stays for shortness of breath including left-sided thoracentesis. She has since followed up in the office with Dr. Bunn and has been discharged from our service, and has been attending cardiac rehab without difficulty. She presented to [facility] emergency room last night with complaints of constant sternal pain which has really never been completely gone since her surgery in December and current pain medication regimen is not working. EKG demonstrated sinus rhythm. Chest x-ray demonstrated mild to moderate cardiomegaly with better aeration of the lungs. Lab work was unremarkable except for magnesium 1.4, troponins were negative x 3. The patient is being admitted for observation with consultation placed to cardiology and cardiothoracic surgery. Of note CT of the chest as well as echocardiogram have already been ordered by primary care service. Review of Systems Review of systems was completed and was negative except as noted - Cardiovascular Reports as per HPI, Reports chest pain Past Medical History Past Medical History: Asthma, Coronary Artery Disease (CAD), COPD, Diabetes Mellitus, Hyperlipidemia, Hypertension, Myocardial Infarction ([place]), Musculoskeletal Disorder, Rheumatoid Arthritis (RA), Thyroid Disorder Additional Past Medical History / Comment(s): Back Pain, right shoulder pain, Hx Pituitary Tumor, BENIGN. Thyroid disorder. 3 heart attacks-most recent March 2022, 3 stents total, neuropathy; left-sided pleural effusion Last Myocardial Infarction Date:: 10/29/22 History of Any Multi-Drug Resistant Organisms: None Reported Past Surgical History: Section, Coronary Bypass/CABG, Heart Catheterization With Stent, Tubal Ligation Additional Past Surgical History / Comment(s): Pituitary Tumor Removed. colonoscopy, PAIN CLINIC PROCEDURES stents x3 c section x4; three-vessel off- pump CABG January 04, 2024; left-sided thoracentesis with removal of 950 mL fluid on January 22, 2024 Past Anesthesia/Blood Transfusion Reactions: No Reported Reaction Date of Last Stent Placement:: March 2022 Past Psychological History: Anxiety, Depression Smoking Status: Former smoker Past Alcohol Use History: None Reported Past Drug Use History: Marijuana - Past Family History Mother History Unknown: Yes Family Medical History: Deep Vein Thrombosis (DVT) Additional Family Medical History / Comment(s): Mother is alive at age 67 with history of coronary artery disease and three-vessel CABG. Daughter(s) History Unknown: Yes Family Medical History: Deep Vein Thrombosis (DVT) Additional Family Medical History / Comment(s): Patient has a total of 9 children with no major medical problems. Father History Unknown: Yes Family Medical History: Cancer Additional Family Medical History / Comment(s): Father is alive with no history of coronary artery disease. History of Prostate Cancer Sister(s) History Unknown: Yes Additional Family Medical History / Comment(s): The patient has 4 sisters and 1 brother. One sister had a myocardial infraction at age 40. Medications and Allergies Home Medications Medication Instructions Recorded Confirmed Type Atorvastatin [Lipitor] 80 mg PO HS 05/05/20 03/01/24 History metFORMIN HCL [Glucophage] 1,000 mg PO BID 01/19/22 03/01/24 History Albuterol Inhaler [Ventolin Hfa 2 puff INHALATION RT-QID PRN 12/02/23 03/01/24 History Inhaler] Ondansetron Odt [Zofran ODT] 4 mg PO Q12HR PRN 12/02/23 03/01/24 History Docusate [Colace] 100 mg PO BID PRN 12/04/23 03/01/24 History Acetaminophen Tab [Tylenol] 1,000 mg PO Q6HR PRN tab 01/08/24 03/01/24 Rx Ascorbic Acid [Vitamin C] 500 mg PO BID-W/MEALS #14 tab 01/08/24 03/01/24 Rx Clopidogrel [Plavix] 75 mg PO DAILY #30 tab 01/08/24 03/01/24 Rx Ferrous Sulfate [Iron (65 MG 325 mg PO BID-W/MEALS #14 tab 01/08/24 03/01/24 Rx Elemental)] amLODIPine [Norvasc] 2.5 mg PO DAILY@1200 #30 tab 01/08/24 03/01/24 Rx Aspirin EC [Ecotrin] 325 mg PO DAILY 01/22/24 03/01/24 History Furosemide [Lasix] 40 mg PO DAILY 01/23/24 03/01/24 History Lactulose 20 gm PO DAILY PRN 01/23/24 03/01/24 History Potassium Chloride ER [K-Dur 20] 20 meq PO DAILY 01/23/24 03/01/24 History Losartan [Cozaar] 50 mg PO DAILY 03/01/24 03/01/24 History Metoprolol Succinate (ER) [Toprol 50 mg PO DAILY 03/01/24 03/01/24 History Xl] Pantoprazole [Protonix] 40 mg PO DAILY 03/01/24 03/01/24 History Allergies Allergy/AdvReac Type Severity Reaction Status Date / Time peanut Allergy HIVES Verified 03/01/24 09:39 rice Allergy Rash/Hives Verified 03/01/24 09:39 seasonal Allergy Rash/Hives Uncoded 03/01/24 09:39 Surgical - Exam Vital Signs Temp Pulse Resp BP Pulse Ox 98.2 F 72 28 H 146/80 98 02/29/24 19:22 02/29/24 19:22 02/29/24 19:22 02/29/24 19:22 02/29/24 19:22 CONSTITUTIONAL: Awake and alert, appears somewhat comfortable, cooperative, no acute distress EYES: Pupils equal, round, reactive to light, normal ocular movement ENT: Moist mucous membranes without oral lesions present NECK: No masses, no bruits, trachea midline RESPIRATORY: Lungs sounds diminished bilaterally. Respirations even, nonlabo red. Currently on room air with oxygen saturation 100%. Strong cough CARDIOVASCULAR: S1, S2 present. Regular rate and rhythm, sinus rhythm on telemetry. Sternum stable. Palpable peripheral pulses bilaterally. No edema present. GASTROINTESTINAL: Abdomen soft, nontender, nondistended without masses or organomegaly noted. There is no rebound or guarding present. Active bowel sounds present 4 quadrants. GENITOURINARY: Deferred INTEGUMENTARY: Skin is warm and dry. Anterior chest incision well-approximated NEUROLOGIC: Cranial nerves II through XII intact, normal coordination, no obv ious motor or sensory deficits, speech is normal MUSKULOSKELETAL: Able to move all extremities, strength equal bilaterally, normal posture PSYCHIATRIC: Alert and oriented to person place and time, appropriate affect, intact judgment and insight Results - Labs 02/29/24 20:21 02/29/24 20:21 Abnormal Lab Results - Last 24 Hours (Table) 02/29/24 02/29/24 03/01/24 Range/Units 20:21 20:21 04:32 RDW 16.7 H (11.5-15.5) % Glucose 182 H (74-99) mg/dL POC Glucose (mg/dL) (70-110) mg/dL Magnesium 1.4 L 1.5 L (1.6-2.3) mg/dL 03/01/24 Range/Units 06:31 RDW (11.5-15.5) % Glucose (74-99) mg/dL POC Glucose (mg/dL) 211 H (70-110) mg/dL Magnesium (1.6-2.3) mg/dL Diabetes panel 02/29/24 Range/Units 20:21 Sodium 138 (137-145) mmol/L Potassium 3.8 (3.5-5.1) mmol/L Chloride 102 (98-107) mmol/L Carbon Dioxide 30 (22-30) mmol/L BUN 16 (7-17) mg/dL Creatinine 0.62 (0.52-1.04) mg/dL Glucose 182 H (74-99) mg/dL Calcium 9.1 (8.4-10.2) mg/dL AST 23 (14-36) U/L ALT 18 (4-34) U/L Alkaline Phosphatase 106 (38-126) U/L Total Protein 7.1 (6.3-8.2) g/dL Albumin 4.0 (3.5-5.0) g/dL Calcium panel 02/29/24 Range/Units 20:21 Calcium 9.1 (8.4-10.2) mg/dL Albumin 4.0 (3.5-5.0) g/dL Pituitary panel 02/29/24 Range/Units 20:21 Sodium 138 (137-145) mmol/L Potassium 3.8 (3.5-5.1) mmol/L Chloride 102 (98-107) mmol/L Carbon Dioxide 30 (22-30) mmol/L BUN 16 (7-17) mg/dL Creatinine 0.62 (0.52-1.04) mg/dL Glucose 182 H (74-99) mg/dL Calcium 9.1 (8.4-10.2) mg/dL Adrenal panel 02/29/24 Range/Units 20:21 Sodium 138 (137-145) mmol/L Potassium 3.8 (3.5-5.1) mmol/L Chloride 102 (98-107) mmol/L Carbon Dioxide 30 (22-30) mmol/L BUN 16 (7-17) mg/dL Creatinine 0.62 (0.52-1.04) mg/dL Glucose 182 H (74-99) mg/dL Calcium 9.1 (8.4-10.2) mg/dL Total Bilirubin 0.4 (0.2-1.3) mg/dL AST 23 (14-36) U/L ALT 18 (4-34) U/L Alkaline Phosphatase 106 (38-126) U/L Total Protein 7.1 (6.3-8.2) g/dL Albumin 4.0 (3.5-5.0) g/dL - Imaging Chest x-ray: report reviewed, image reviewed EKG: image reviewed Assessment and Plan Assessment: Sternal pain Hypomagnesemia Coronary artery disease with previous myocardial infarction and prior stenting of the left anterior descending artery as well as left circumflex/OM, stable angina, status post three-vessel off-pump CABG 01/04/24 Left-sided pleural effusion, status post thoracentesis with removal of 950 mL fluid on 01/22/2024 Hypertension Hyperlipidemia Diabetes Hypothyroid Bilateral internal carotid artery stenosis, 50-69% Asthma Chronic back and neck pain Previous marijuana use Previous tobacco dependence Remote history of syncope Family history of premature coronary artery disease Plan: The patient was seen and examined with Dr. Coronado on the observation unit. We reviewed the CT of the chest. There is no indication for surgical intervention. Continue sternal precautions for another month. If still having significant pain refractory to any/all pain medications she can follow up with our services in 1 year for possible wire removal, but currently the sternum is still healing and removal of wires is not warranted at this time. Pain control with current medication regimen, consider adding robaxin, neurontin, lidoderm patches. From our standpoint patient can be discharged when ok with other services. Thank you for this consult. Please call us with any questions. I have personally seen and examined the patient, performed the documentation and the assessment and plan as written. Number of minutes spent on the visit: 30. Cici Manuel NP-C
[2024-03-01 12:30] LABS: Glucose,Whole Blood 107 mg/dL (70-110)
--- NOTE | 2024-03-01 13:49 | CT ---
EXAMINATION TYPE: CT angio chest CT DLP: 403.90 mGycm, Automated exposure control for dose reduction was used. DATE OF EXAM: 03/01/2024 11:01 AM COMPARISON: 01/24/2024. CLINICAL INDICATION:Female, 53 years old with history of pain over sternum, possible pulmonary emboli sm; Pain over sternum, recent CABG, hx PR, observe for PE TECHNIQUE/CONTRAST: CTA scan of the thorax is performed with IV Contrast, patient injected with 100 mL of Isovue 370, MIP images are created and reviewed these are created on a separate workstation.. FINDINGS: Pulmonary Artery: There is no evidence for a filling defect within the pulmonary vasculature to sugge st acute pulmonary embolism. The pulmonary artery is of normal size. Lungs/Pleura: No evidence of focal consolidation, right pleural effusion or pneumothorax. Trace left pleural effusion. Scattered streaky atelectasis/scarring predominantly in the lower lungs with interl obular septal thickening. Airway: Large airways are patent. Heart: The heart is mildly enlarged for size. There is severe coronary artery atherosclerosis with lopez spected post CABG changes. Vasculature: No evidence of aortic aneurysm. Mediastinum: No gross evidence of adenopathy. Musculoskeletal: Sternotomy wires present with incomplete fusion of the sternum. Soft Tissues: No organizing fluid collection in the sternum. Sternotomy wires are present. Postoperat ngozi changes along the midline. Lower neck: No significant findings. Upper Abdomen: No significant findings. IMPRESSION: 1. No evidence of pulmonary embolism. 2. Cardiomegaly with pulmonary vascular congestion And left pleural effusion correlate with serum BN P for congestive heart failure. 3. Sternotomy wires present with incomplete fusion of the sternum.
[2024-03-01] MEDS: LIDOCAINE 4% PATCH TOPICAL ONE (14:59)
[2024-03-01 15:18] VITALS: BP 123/86; PULSE 59; TEMP 98.1
--- NOTE | 2024-03-01 15:30 | P.CRDCN ---
History of Present Illness Consult date: 03/01/24 Consult reason: chest pain Chief complaint: chest hurts History of present illness: History of present illness: Patient is a pleasant 53-year-old female with significant past medical history of CAD with prior stenting of the LAD and left circumflex/OM, status post three- vessel off-pump CABG 01/04/2024, subsequent left-sided pleural effusion status post thoracentesis 01/2024, hypertension, hyperlipidemia, diabetes, hypo thyroidism, bilateral carotid stenosis, asthma, chronic neck and back pain who presents with complaints of chest pain. She does see Dr. Ojeda in the office. She reports that her chest pain has not really gotten better since surgery. She describes this as a "hurt ". She has been going to cardiac rehab. She is concerned that her chest pain is fairly constant. She does have some shortness of breath as well as dizziness. Denies any syncope. She has right chest wall tenderness on exam. Incision is well-healed. Labs reviewed: Troponin negative x 3, creatinine 0.6, potassium 3.8. CTA of the chest shows no evidence of embolism, shows cardiomegaly with pulmonary vascular congestion. REVIEW OF SYSTEMS: No fever or chills. No cough or expectoration. No diaphoresis. Patient denies headache, dizziness, blurred vision, double vision. Patient denies any stomach discomfort. No nausea, vomiting. No hematochezia. No hematemesis. Denies any black stools or blood in his stools. Denies dysuria or hematuria. No muscle weakness or numbness. Reports that her chest "hurts ". PHYSICAL EXAMINATION: This is a 53-year-old female in no apparent distress at the time of my examination. HEENT: Head is atraumatic, normocephalic. Pupils are equal, round. Sclerae anicteric. Conjunctivae are clear. Mucous membranes of the mouth are moist. Neck is supple. There is no jugular venous distention. No carotid bruit is heard. CHEST EXAMINATION: Lungs are clear to auscultation. Chest wall tenderness to l ight palpation on the right side as well as incision. HEART EXAMINATION: Heart regular rate and rhythm. S1, S2 heard. No murmurs, gallops or rub. ABDOMEN: Soft, nontender. Bowel sounds are heard. EXTREMITIES: 2+ peripheral pulses with no evidence of peripheral edema and no calf tenderness noted. NEUROLOGIC EXAMINATION: Patient is awake, alert and oriented x3. IMPRESSION AND PLAN: CAD status post PCI Status post CABG 01/04/2024 Subsequent left-sided pleural effusion status postthoracentesis 01/22/2024 Hypertension Hyperlipidemia Diabetes Hypothyroidism Carotid stenosis Chest pain Dizziness PLAN: She was evaluated by cardiovascular surgery who advised another month of sternal precautions and pain control. No further workup indicated from a cardiac standpoint. Discussed pain management including Motrin and trying ice packs. Discussed that this does take time for the sternum to heal. She is cleared for discharge from cardiology standpoint. Follow-up in the office with Dr. Ojeda in 1 to 2 weeks. I am dictating on behalf of Dr. Aniceto Olmstead's history/physical and assessment/plan. Past Medical History Past Medical History: Asthma, Coronary Artery Disease (CAD), COPD, Diabetes Mellitus, Hyperlipidemia, Hypertension, Myocardial Infarction (VT), Musculoskeletal Disorder, Rheumatoid Arthritis (RA), Thyroid Disorder Additional Past Medical History / Comment(s): Back Pain, right shoulder pain, Hx Pituitary Tumor, BENIGN. Thyroid disorder. 3 heart attacks-most recent March 2022, 3 stents total, neuropathy; left-sided pleural effusion Last Myocardial Infarction Date:: 10/29/22 History of Any Multi-Drug Resistant Organisms: None Reported Past Surgical History: Section, Coronary Bypass/CABG, Heart Catheterization With Stent, Tubal Ligation Additional Past Surgical History / Comment(s): Pituitary Tumor Removed. colonoscopy, PA[facility] PROCEDURES stents x3 c section x4; three-vessel off- pump CABG January 04, 2024; left-sided thoracentesis with removal of 950 mL fluid on January 22, 2024 Past Anesthesia/Blood Transfusion Reactions: No Reported Reaction Date of Last Stent Placement:: March 2022 Past Psychological History: Anxiety, Depression Smoking Status: Former smoker Past Alcohol Use History: None Reported Past Drug Use History: Marijuana - Past Family History Mother History Unknown: Yes Family Medical History: Deep Vein Thrombosis (DVT) Additional Family Medical History / Comment(s): Mother is alive at age 67 with history of coronary artery disease and three-vessel CABG. Daughter(s) History Unknown: Yes Family Medical History: Deep Vein Thrombosis (DVT) Additional Family Medical History / Comment(s): Patient has a total of 9 children with no major medical problems. Father History Unknown: Yes Family Medical History: Cancer Additional Family Medical History / Comment(s): Father is alive with no history of coronary artery disease. History of Prostate Cancer Sister(s) History Unknown: Yes Additional Family Medical History / Comment(s): The patient has 4 sisters and 1 brother. One sister had a myocardial infraction at age 40. Medications and Allergies Home Medications Medication Instructions Recorded Confirmed Type Atorvastatin [Lipitor] 80 mg PO HS 05/05/20 03/01/24 History metFORMIN HCL [Glucophage] 1,000 mg PO BID 01/19/22 03/01/24 History Albuterol Inhaler [Ventolin Hfa 2 puff INHALATION RT-QID PRN 12/02/23 03/01/24 History Inhaler] Ondansetron Odt [Zofran ODT] 4 mg PO Q12HR PRN 12/02/23 03/01/24 History Docusate [Colace] 100 mg PO BID PRN 12/04/23 03/01/24 History Acetaminophen Tab [Tylenol] 1,000 mg PO Q6HR PRN tab 01/08/24 03/01/24 Rx Ascorbic Acid [Vitamin C] 500 mg PO BID-W/MEALS #14 tab 01/08/24 03/01/24 Rx Clopidogrel [Plavix] 75 mg PO DAILY #30 tab 01/08/24 03/01/24 Rx Ferrous Sulfate [Iron (65 MG 325 mg PO BID-W/MEALS #14 tab 01/08/24 03/01/24 Rx Elemental)] amLODIPine [Norvasc] 2.5 mg PO DAILY@1200 #30 tab 01/08/24 03/01/24 Rx Aspirin EC [Ecotrin] 325 mg PO DAILY 01/22/24 03/01/24 History Furosemide [Lasix] 40 mg PO DAILY 01/23/24 03/01/24 History Lactulose 20 gm PO DAILY PRN 01/23/24 03/01/24 History Potassium Chloride ER [K-Dur 20] 20 meq PO DAILY 01/23/24 03/01/24 History Losartan [Cozaar] 50 mg PO DAILY 03/01/24 03/01/24 History Metoprolol Succinate (ER) [Toprol 50 mg PO DAILY 03/01/24 03/01/24 History Xl] Pantoprazole [Protonix] 40 mg PO DAILY 03/01/24 03/01/24 History Allergies Allergy/AdvReac Type Severity Reaction Status Date / Time peanut Allergy HIVES Verified 03/01/24 09:39 rice Allergy Rash/Hives Verified 03/01/24 09:39 seasonal Allergy Rash/Hives Uncoded 03/01/24 09:39 Physical Exam Vitals: Vital Signs Temp Pulse Pulse Pulse Resp BP BP 03/01/24 07:36 03/01/24 07:00 97.9 F 55 L 14 129/67 03/01/24 03:43 98.4 F 63 18 133/75 03/01/24 01:43 62 18 02/29/24 23:15 97.7 F 67 16 153/81 02/29/24 22:14 62 02/29/24 22:11 63 18 146/77 02/29/24 19:22 98.2 F 72 28 H 146/80 Pulse Ox 03/01/24 07:36 100 03/01/24 07:00 100 03/01/24 03:43 100 03/01/24 01:43 02/29/24 23:15 98 02/29/24 22:14 02/29/24 22:11 96 02/29/24 19:22 98 Intake and Output 02/29/24 03/01/24 03/01/24 22:59 06:59 14:59 Other: Voiding Method Toilet # Voids 0 1 Weight 72.575 kg 72.575 kg Results 02/29/24 20:21 02/29/24 20:21 Cardiac Enzymes 02/29/24 02/29/24 03/01/24 Range/Units 20:21 20:21 00:50 AST 23 (14-36) U/L Troponin I <0.012 <0.012 (0.000-0.034) ng/mL 03/01/24 Range/Units 04:32 AST (14-36) U/L Troponin I <0.012 (0.000-0.034) ng/mL Coagulation 02/29/24 Range/Units 20:21 PT 10.6 (10.0-12.5) sec APTT 24.3 (22.0-30.0) sec CBC 02/29/24 Range/Units 20:21 WBC 6.7 (3.8-10.6) k/uL RBC 4.12 (3.80-5.40) m/uL Hgb 12.0 (11.4-16.0) gm/dL Hct 35.6 (34.0-46.0) % Plt Count 256 (150-450) k/uL Comprehensive Metabolic Panel 02/29/24 Range/Units 20:21 Sodium 138 (137-145) mmol/L Potassium 3.8 (3.5-5.1) mmol/L Chloride 102 (98-107) mmol/L Carbon Dioxide 30 (22-30) mmol/L BUN 16 (7-17) mg/dL Creatinine 0.62 (0.52-1.04) mg/dL Glucose 182 H (74-99) mg/dL Calcium 9.1 (8.4-10.2) mg/dL AST 23 (14-36) U/L ALT 18 (4-34) U/L Alkaline Phosphatase 106 (38-126) U/L Total Protein 7.1 (6.3-8.2) g/dL Albumin 4.0 (3.5-5.0) g/dL Current Medications Generic Name Dose Route Start Last Admin Trade Name Freq PRN Reason Stop Dose Admin Acetaminophen 650 mg 02/29/24 21:29 Acetaminophen Tab 325 Mg Tab PO Q6HR PRN Mild Pain or Fever > 100.5 Aspirin 81 mg 03/01/24 09:00 03/01/24 10:30 Aspirin 81 Mg PO 81 mg DAILY TIERA Administration Atorvastatin Calcium 80 mg 03/01/24 21:00 Atorvastatin 80 Mg Tab PO HS [facility] Enoxaparin Sodium 40 mg 03/01/24 09:00 03/01/24 10:29 Enoxaparin 40 Mg/0.4 Ml Syringe SQ 40 mg DAILY TIERA Administration Gabapentin 300 mg 03/01/24 09:00 03/01/24 10:30 Gabapentin 300 Mg Cap PO 300 mg TID TIERA Administration Hydromorphone HCl 0.5 mg 02/29/24 21:29 Hydromorphone 0.5 Mg/0.5 Ml Syringe IVP Q3HR PRN Moderate Pain (Scale 4 to 6) Insulin Aspart 0 unit 03/01/24 07:30 03/01/24 06:59 Insulin Aspart (Novolog) 100 Unit/Ml Vial SQ 4 unit ACHS TIERA Administration Protocol Naloxone HCl 0.2 mg 02/29/24 21:29 Naloxone 0.4 Mg/Ml 1 Ml Vial IV Q2M PRN Opioid Reversal Intake and Output 02/29/24 03/01/24 03/01/24 22:59 06:59 14:59 Other: Voiding Method Toilet # Voids 0 1 Weight 72.575 kg 72.575 kg 02/29/24 20:21 02/29/24 20:21
--- NOTE | 2024-03-01 16:14 | CA ---
Transthoracic Echo Report Name: Eleazar Balbuena Age: 53 Gender: F : 1970 Exam Date: 03/01/2024 14:21 Exam Location: [facility] Ht (in): 58 Wt (lb): 160 Ordering Physician: Gauri Kraft DO Attending/Referring Phys: Will Ojeda MD ([id number]) [employer] Shaker Stella Hyde RDCS Procedure CPT: Indications: limited for EF and pericardial effusion Cardiac Hx: Technical Quality: Contrast 1: Total Dose (mL): Contrast 2: Total Dose (mL): MEASUREMENTS (Male / Female) Normal Values FINDINGS Left Ventricle No obvious regional wall motion abnormalities. Left ventricular ejection fraction is estimated at 55 %. Right Ventricle Right Atrium Left Atrium Mitral Valve Aortic Valve Tricuspid Valve Pulmonic Valve Pericardium No pericardial effusion. Aorta CONCLUSIONS Left ventricular ejection fraction 55% No pericardial effusion Previewed by: Dr. Aniceto Olmstead DO (Electronically Signed) Final Date: 01 Mar 2024 16:13
--- NOTE | 2024-03-01 16:49 | P.DS ---
Providers Date of admission: 02/29/24 21:29 Expected date of discharge: 03/01/24 Attending physician: Juan Manuel Knox MD Consults: 03/01/24 08:51 Consult Physician Routine Consulting Provider: Luis Eduardo Chaudhry Consult Reason/Comments: sternal pain after CABG Do you want consulting provider notified?: Already Contacted Primary care physician: Gabriela Urban Hospital Course: Discharge Diagnosis: Sternal pain Coronary artery disease status post CABG on 01/04/2024 Hypertension Dyslipidemia Diabetes Hypothyroidism Carotid stenosis Hospital Course: Patient is a 53-year-old female with multiple recent hospitalizations after having a three-vessel off-pump CABG on 01/04/2024 with subsequent left-sided pleural effusion requiring thoracentesis, hypertension, dyslipidemia, hypothyroidism, diabetes, and multiple other comorbid conditions who presented to the hospital due to sternal discomfort. In the emergency department she underwent extensive evaluation. On arrival she was slightly tachypneic with respiratory rate of 28. Her initial blood work was normal other than a magnesium of 1.4. Initial troponin was normal. Initial EKG did not show any signs of acute ischemia. Due to her heart history she was placed in observation. Remainder of troponins were negative. Cardiology and cardiothoracic surgery were consulted. Echocardiogram showed an ejection fraction of 55% with no pericardial effusion. CTA of the chest demonstrated no evidence of PE with some pulmonary vascular congestion and sternotomy wires present with incomplete fusion of the sternum. Patient was seen and cleared by cardiology. She was seen by CT surgery who felt that her pain was secondary to incomplete healing of the sternum and that there was no indication for surgical intervention but if she continues to have significant pain she could follow-up with Dr. Chaudhry in 1 year for possible wire removal. She was cleared by both cardiology and cardiothoracic surgery for discharge home. She did get started on Gabapentin while in the hospital. Dr. Chaudhry also recommended starting a muscle relaxer to help with pain. Follow-up: Dr. Ojeda in 2 week, Dr. Urban in 1-[address] chaudhry in 1 year for wire removal if pain continues. Patient was started on lidocaine patch, Neurontin, and tizanidine to help with pain. Patient seen and examined at bedside. She states she just feels like something is wrong inside of her chest and that it is not a pain that is responsive to things like morphine or Dilaudid but is a constant hurt in her chest and it feels odd when she moves. We discussed that this is likely related to her sternum and that I do not feel anything wrong but we will proceed with echocardiogram and CT of the chest as well as having cardiothoracic surgery evaluate her. Vital signs reviewed and stable. General: Nontoxic, no distress, appears at stated age Derm: Sternal incision well-healed without purulence or drainage, no areas of erythema, bulging Cardiovascular: S1S2 reg, no murmur, positive posterior tibial pulse bilateral, Lungs: CTA bilateral, no rhonchi, no rales, no accessory muscle use Abdominal: Soft, nontender to palpation, no guarding, no appreciable organomegaly Ext: No gross muscle atrophy, no edema b/l lower extremities, no contractures Neuro: CN II-XI grossly intact, no focal neuro deficits Psych: Alert, oriented, appropriate affect A total of 40 minutes of time were spent preparing this complex discharge summary. Patient was discharged on 03/01/24. This dictation was prepared using [email or web address] voice recognition software. Though every attempt is made to correct errors during dictation some may still exist. Patient Condition at Discharge: Stable Plan - Discharge Summary Discharge Rx Participant: No New Discharge Prescriptions: New Gabapentin [Neurontin] 300 mg PO TID #90 cap tiZANidine [Zanaflex] 2 mg PO Q12H PRN #15 tablet PRN Reason: Muscle Pain Lidocaine 4% Patch 1 patch TOPICAL DAILY PRN #30 patch PRN Reason: Pain Aspirin 81 mg PO DAILY tab Continue Atorvastatin [Lipitor] 80 mg PO HS Albuterol Inhaler [Ventolin Hfa Inhaler] 2 puff INHALATION RT-QID PRN PRN Reason: Shortness Of Breath Docusate [Colace] 100 mg PO BID PRN PRN Reason: Constipation Clopidogrel [Plavix] 75 mg PO DAILY #30 tab Acetaminophen Tab [Tylenol] 1,000 mg PO Q6HR PRN tab PRN Reason: Fever And/ Or Pain Lactulose 20 gm PO DAILY PRN PRN Reason: Constipation Furosemide [Lasix] 40 mg PO DAILY Potassium Chloride ER [K-Dur 20] 20 meq PO DAILY Pantoprazole [Protonix] 40 mg PO DAILY Losartan [Cozaar] 50 mg PO DAILY metFORMIN HCL [Glucophage] 1,000 mg PO BID Ondansetron Odt [Zofran ODT] 4 mg PO Q12HR PRN PRN Reason: Nausea Ferrous Sulfate [Iron (65 MG Elemental)] 325 mg PO BID-W/MEALS #14 tab amLODIPine [Norvasc] 2.5 mg PO DAILY@1200 #30 tab Ascorbic Acid [Vitamin C] 500 mg PO BID-W/MEALS #14 tab Metoprolol Succinate (ER) [Toprol XL] 50 mg PO DAILY Discontinued Aspirin EC [Ecotrin] 325 mg PO DAILY Discharge Medication List Atorvastatin [Lipitor] 80 mg PO HS 05/05/20 [History] metFORMIN HCL [Glucophage] 1,000 mg PO BID 01/19/22 [History] Albuterol Inhaler [Ventolin Hfa Inhaler] 2 puff INHALATION RT-QID PRN 12/02/23 [History] Ondansetron Odt [Zofran ODT] 4 mg PO Q12HR PRN 12/02/23 [History] Docusate [Colace] 100 mg PO BID PRN 12/04/23 [History] Acetaminophen Tab [Tylenol] 1,000 mg PO Q6HR PRN tab 01/08/24 [Rx] Ascorbic Acid [Vitamin C] 500 mg PO BID-W/MEALS #14 tab 01/08/24 [Rx] Clopidogrel [Plavix] 75 mg PO DAILY #30 tab 01/08/24 [Rx] Ferrous Sulfate [Iron (65 MG Elemental)] 325 mg PO BID-W/MEALS #14 tab 01/08/24 [Rx] amLODIPine [Norvasc] 2.5 mg PO DAILY@1200 #30 tab 01/08/24 [Rx] Furosemide [Lasix] 40 mg PO DAILY 01/23/24 [History] Lactulose 20 gm PO DAILY PRN 01/23/24 [History] Potassium Chloride ER [K-Dur 20] 20 meq PO DAILY 01/23/24 [History] Aspirin 81 mg PO DAILY tab 03/01/24 [Rx] Gabapentin [Neurontin] 300 mg PO TID #90 cap 03/01/24 [Rx] Lidocaine 4% Patch 1 patch TOPICAL DAILY PRN #30 patch 03/01/24 [Rx] Losartan [Cozaar] 50 mg PO DAILY 03/01/24 [History] Metoprolol Succinate (ER) [Toprol XL] 50 mg PO DAILY 03/01/24 [History] Pantoprazole [Protonix] 40 mg PO DAILY 03/01/24 [History] tiZANidine [Zanaflex] 2 mg PO Q12H PRN #15 tablet 03/01/24 [Rx] Follow up Appointment(s)/Referral(s): Will Ojeda MD [STAFF PHYSICIAN] - 1 Week Gabriela Urban NPC [Primary Care Provider] - 1-2 days Activity/Diet/Wound Care/Special Instructions: Activity: as tolerated Diet: Heart Healthy, consistent carb Special Instructions: Your pain is coming from incomplete healing of your sternum. It can take up to 1 year for your sternum to heal after surgery. Gabapentin can be sedating. No driving for your first 5 days on this medication. It needs to be take 3 times a day consistently to help with pain. If you are feeling sleepy when first starting this medication you can decrease to twice a day for 1 week and then retry three times a day. To help get comfortable Dr. Chaudhry has also suggested a muscle relaxer. You have been prescribed tizanidine which can be taken as needed for muscle pain/spasms. This medication can also be sedating and you should not be driving if you are requiring this medication. You can also use a lidocaine patch to help with the pain. This is not sedating. Discharge Disposition: HOME SELF-CARE
[2024-03-01] MEDS ORDERED: ATORVASTATIN 80 MG TAB PO SCH (21:00)
== END 2024-03-01 18:02 | disposition home or self-care (01) ==
LOC: EC 19:17 → 6NMEDSUR 21:29
PROVIDERS: ADMIT Internal Medicine; ATTEND Internal Medicine
DX: R06.02 Shortness of breath (principal); R07.89 Other chest pain; I25.10 Atherosclerotic heart disease of native coronary artery without angina pectoris; I10 Essential (primary) hypertension; E78.5 Hyperlipidemia, unspecified; E11.9 Type 2 diabetes mellitus without complications; E03.9 Hypothyroidism, unspecified; I65.29 Occlusion and stenosis of unspecified carotid artery; Z79.82 Long term (current) use of aspirin; Z79.02 Long term (current) use of antithrombotics/antiplatelets; Z79.84 Long term (current) use of oral hypoglycemic drugs; Z79.899 Other long term (current) drug therapy; Z82.49 Family history of ischemic heart disease and other diseases of the circulatory system; Z87.891 Personal history of nicotine dependence; Z95.1 Presence of aortocoronary bypass graft; Z95.5 Presence of coronary angioplasty implant and graft
CPT/HCPCS: 96366; 96367; 96372; 96365; 99285; 36415; 94760; 93005; 93308; 83880; 80053; 83735 ×2; 84484 ×2; 85025; 85610; 85730; 71046; 71275; G0378 ×2; J2270; J1650; J3475; Q9967

== ENCOUNTER → 2024-03-10 | Outpatient (CLI) | payer OTHER ==
[2024-03-10 18:57] LABS: BUN/Creat Ratio 21.22 Ratio (12.00-20.00); Blood Urea Nitrogen 19.1 mg/dL (9.0-27.0); Calcium 9.6 mg/dL (8.7-10.3); Carbon Dioxide 25.6 mmol/L (21.6-31.8); Chloride 100 mmol/L (96-109); Glucose 150 mg/dL (70-110); Potassium 4.4 mmol/L (3.5-5.5); Sodium 139 mmol/L (135-145)
== END | disposition home or self-care (01) ==
LOC: LABWHC1 12:15
PROVIDERS: ATTEND Nurse Practitioner
DX: N17.9 Acute kidney failure, unspecified (principal)
CPT/HCPCS: 36415; 80048

== ENCOUNTER → 2024-05-06 | Outpatient (CLI) | payer OTHER ==
--- NOTE | 2024-05-06 10:50 | XR ---
EXAMINATION TYPE: XR Hip Complete LT DATE OF EXAM: 05/06/2024 COMPARISON: None HISTORY: Pain TECHNIQUE: 2 view left hip FINDINGS: Femoral head articulates with the acetabulum. Joint space is preserved. No acute fracture o r dislocation is evident.. Follow up exams can be performed 7-10 days from acute trauma for continued pain. IMPRESSION: 1. No acute osseous abnormality left hip
[2024-05-06 16:24] LABS: Chol/HDL Ratio 4.26 Ratio; LDL Cholesterol,Calculated 179.6 mg/dL (0.0-131.0); T4, Free (Free Thyroxine) 1.81 ng/dL (0.80-1.80)
== END | disposition home or self-care (01) ==
LOC: RADXRMAIN 08:33
PROVIDERS: ATTEND Nurse Practitioner Family
DX: Z12.11 Encounter for screening for malignant neoplasm of colon (principal); E55.9 Vitamin D deficiency, unspecified; M25.552 Pain in left hip
CPT/HCPCS: 73502; 80061; 82306; 82607; 83036; 84439; 84443

== ENCOUNTER 2024-05-07 14:28 | Observation (INO) | payer OTHER ==
--- NOTE | 2024-05-07 14:48 | ED ---
General Adult HPI - General Source: patient, EMS, RN notes reviewed Mode of arrival: EMS Limitations: no limitations <Murali Justice - Last Filed: 05/07/24 14:46> - General Source: patient, EMS, RN notes reviewed, old records reviewed Mode of arrival: EMS Limitations: no limitations - History of Present Illness -: days(s) Location: chest, back Radiation: non-radiation Severity scale (1-10): 5 Consistency: constant Improves with: none Worsens with: none Associated Symptoms: chest pain Treatments Prior to Arrival: none <Sarabjit Allen - Last Filed: 05/12/24 05:37> - General Chief complaint: Back Pain/Injury Stated complaint: back/neck pain Time Seen by Provider: 05/07/24 14:38 - History of Present Illness Initial comments: Quick [id number] female presents emergency department via EMS chief complaint of thoracic back pain. Patient states that started after leaving cardiac rehab. Patient states she had a triple bypass in December by Dr. Coronado. Patient states that the pain is worse with movement states that she thought she just put some topical pain cream on and heating pad but states has not helped. She states that she has no chest pain or shortness of breath. (Murali Justice) This is a 53-year-old female to the ER for evaluation of pain back pain thoracic back pain and chest pain. This started yesterday at cardiac rehab with recent triple bypass surgery. Patient is presenting today for evaluation of persistent symptoms here in the ER inability to take a deep breath (Sarabjit Allen) - Related Data Home Medications Medication Instructions Recorded Confirmed metFORMIN HCL [Glucophage] 1,000 mg PO BID 01/19/22 05/07/24 Docusate [Colace] 100 mg PO BID 12/04/23 05/07/24 Metoprolol Succinate (ER) [Toprol 50 mg PO DAILY 03/01/24 05/07/24 XL] Pantoprazole [Protonix] 40 mg PO DAILY 03/01/24 05/07/24 Aspirin EC [Ecotrin Low Dose] 81 mg PO DAILY 05/07/24 05/07/24 Ferrous Sulfate [Iron (65 MG 325 mg PO BID 05/07/24 05/07/24 Elemental)] Gabapentin [Neurontin] 300 mg PO BID 05/07/24 05/07/24 Meenakshi Multivitamin Gummy 2 tab PO DAILY 05/07/24 05/07/24 Isosorbide Mononitrate ER [Imdur] 30 mg PO DAILY 05/07/24 05/07/24 Losartan [Cozaar] 25 mg PO DAILY 05/07/24 05/07/24 amLODIPine [Norvasc] 2.5 mg PO DAILY 05/07/24 05/07/24 hydroCHLOROthiazide 25 mg PO DAILY 05/07/24 05/07/24 Previous Rx's Medication Instructions Recorded Clopidogrel [Plavix] 75 mg PO DAILY #30 tab 01/08/24 Atorvastatin [Lipitor] 80 mg PO DAILY #90 tab 05/08/24 Cyclobenzaprine [Flexeril] 5 mg PO TID PRN #14 tab 05/08/24 Lidocaine 4% Patch 1 patch TOPICAL DAILY #7 patch 05/08/24 Allergies Allergy/AdvReac Type Severity Reaction Status Date / Time peanut Allergy HIVES Verified 05/07/24 19:05 rice Allergy Rash/Hives Verified 05/07/24 19:05 seasonal Allergy Rash/Hives Uncoded 05/07/24 19:05 Review of Systems ROS Other: All systems not noted in ROS Statement are negative. <Murali Justice - Last Filed: 05/07/24 14:46> ROS Other: All systems not noted in ROS Statement are negative. <Sarabjit Allen - Last Filed: 05/12/24 05:37> ROS Statement: Those systems with pertinent positive or pertinent negative responses have been documented in the HPI. Past Medical History Past Medical History: Asthma, Coronary Artery Disease (CAD), COPD, Diabetes Mellitus, Hyperlipidemia, Hypertension, Myocardial Infarction (SC), Musculoskeletal Disorder, Rheumatoid Arthritis (RA), Thyroid Disorder Additional Past Medical History / Comment(s): Back Pain, right shoulder pain, Hx Pituitary Tumor, BENIGN. Thyroid disorder. 3 heart attacks-most recent March 2022, 3 stents total, neuropathy; left-sided pleural effusion Last Myocardial Infarction Date:: 10/29/22 History of Any Multi-Drug Resistant Organisms: None Reported Past Surgical History: Section, Coronary Bypass/CABG, Heart Catheterization With Stent, Tubal Ligation Additional Past Surgical History / Comment(s): Pituitary Tumor Removed. colonoscopy, [facility] PROCEDURES stents x3 c section x4; three-vessel off- pump CABG January 04, 2024; left-sided thoracentesis with removal of 950 mL fluid on January 22, 2024 Past Anesthesia/Blood Transfusion Reactions: No Reported Reaction Date of Last Stent Placement:: March 2022 Past Psychological History: Anxiety, Depression Smoking Status: Former smoker Past Alcohol Use History: None Reported Past Drug Use History: Marijuana - Past Family History Mother History Unknown: Yes Family Medical History: Deep Vein Thrombosis (DVT) Additional Family Medical History / Comment(s): Mother is alive at age 67 with history of coronary artery disease and three-vessel CABG. Daughter(s) History Unknown: Yes Family Medical History: Deep Vein Thrombosis (DVT) Additional Family Medical History / Comment(s): Patient has a total of 9 children with no major medical problems. Father History Unknown: Yes Family Medical History: Cancer Additional Family Medical History / Comment(s): Father is alive with no history of coronary artery disease. History of Prostate Cancer Sister(s) History Unknown: Yes Additional Family Medical History / Comment(s): The patient has 4 sisters and 1 brother. One sister had a myocardial infraction at age 40. <Murali Justice M - Last Filed: 05/07/24 14:46> General Exam Limitations: no limitations General appearance: alert, in no apparent distress Head exam: Present: atraumatic, normocephalic, normal inspection <Murali Justice - Last Filed: 05/07/24 14:46> General appearance: alert, in no apparent distress Head exam: Present: atraumatic, normocephalic, normal inspection Eye exam: Present: normal appearance, PERRL, EOMI. Absent: scleral icterus, conjunctival injection, periorbital swelling ENT exam: Present: normal exam, mucous membranes moist Neck exam: Present: normal inspection. Absent: tenderness, meningismus, lymphadenopathy Respiratory exam: Present: normal lung sounds bilaterally. Absent: respiratory distress, wheezes, rales, rhonchi, stridor Cardiovascular Exam: Present: regular rate, normal rhythm, normal heart sounds. Absent: systolic murmur, diastolic murmur, rubs, gallop, clicks GI/Abdominal exam: Present: soft, normal bowel sounds. Absent: distended, tenderness, guarding, rebound, rigid Extremities exam: Present: normal inspection, full ROM, normal capillary refill. Absent: tenderness, pedal edema, joint swelling, calf tenderness Back exam: Present: normal inspection Neurological exam: Present: alert, oriented X3, CN II-XII intact Psychiatric exam: Present: normal affect, normal mood Skin exam: Present: warm, dry, intact, normal color. Absent: rash <Sarabjit Allen Filed: 05/12/24 05:37> - General Exam Comments Initial Comments: Visual Physical Exam Vital signs reviewed General: Well-appearing, nontoxic, no acute distress. Head: Normocephalic, atraumatic Eyes: PERRLA, EOMI ENT: Airway patent Chest: Nonlabored breathing Skin: No visual rash, normal skin tone Neuro: Alert and oriented 3 Musculoskeletal: No gross abnormalities (Murali Justice) Course <Sarabjit Allen Filed: 05/12/24 05:37> Vital Signs 05/07/24 05/07/24 05/07/24 14:40 16:50 21:52 Temperature 98.8 F 97.8 F Pulse Rate 65 64 58 L Respiratory 20 16 18 Rate Blood Pressure 174/85 156/82 169/81 O2 Sat by Pulse 100 97 96 Oximetry - Reevaluation(s) Reevaluation #1: 05/07/24 18:32 Medical records reviewed (Sarabjit Allen) Reevaluation #2: 05/07/24 18:33 Patient symptoms unchanged (Sarabjit Allen) Reevaluation #3: 05/07/24 18:33 Patient informed of results questions answered (Sarabjit Allen) Reevaluation #4: Was pt. sent in by a medical professional or institution (, PA, CHEMICAL UNIT OPERATOR, urgent care, hospital, or [facility]...) When possible be specific @ -no Did you speak to anyone other than the patient for history (EMS, parent, family, police, friend...)? What history was obtained from this source @ -no Did you review nursing and triage notes (agree or disagree)? Why? @ -agree Are old charts reviewed (outside hosp., previous admission, EMS record, old EKG, old radiological studies, urgent care reports/EKG's, [facility] records)? Report findings @ -yes Differential Diagnosis (chest pain, altered mental status, abdominal pain women, abdominal pain men, vaginal bleeding, weakness, fever, dyspnea, syncope, headache, dizziness, GI bleed, back pain, seizure, CVA, palpatations, mental health, musculoskeletal)? @ -prior EKG interpreted by me (3pts min.). @ -yes X-rays interpreted by me (1pt min.). @ -yes negative for acute disease CT interpreted by me (1pt min.). @ -no U/S interpreted by me (1pt. min.). @ -no What testing was considered but not performed or refused? (CT, X-rays, U/S, labs)? Why? @ -none What meds were considered but not given or refused? Why? @ -none Did you discuss the management of the patient with other professionals (professionals i.e. , PA, CHEMICAL UNIT OPERATOR, lab, RT, psych nurse, social organization professor, carroter, teacher, space operations officer, bilingual patient support caseworker)? Give summary @ -no Was smoking cessation discussed for >3mins.? @ -no Was critical care preformed (if so, how long)? @ -yes31 Were there social determinants of health that impacted care today? How? (Homelessness, low income, unemployed, alcoholism, drug addiction, transportation, low edu. Level, literacy, decrease access to med. care, [facility], rehab)? @ -none Was there de-escalation of care discussed even if they declined (Discuss DNR or withdrawal of care, Hospice)? DNR status @ -no What co-morbidities impacted this encounter? (DM, HTN, Smoking, COPD, CAD, Cancer, CVA, ARF, Chemo, Hep., AIDS, mental health diagnosis, sleep apnea, morbi d obesity)? @ -none Was patient admitted / discharged? Hospital course, mention meds given and rout e, prescriptions, significant lab abnormalities, going to OR and other pertinent info. @ - 53 female to the ER today for evaluation patient presents today for evaluation regards to chest pain back pain with "biggest complaints of back pain that began at cardiac rehab yesterday. Patient does have a mild troponin leak here in the ER and will admit with history of recent coronary artery bypass troy t Admitted Undiagnosed new problem with uncertain prognosis? @ -no Drug Therapy requiring intensive monitoring for toxicity (Heparin, Nitro, Insulin, Cardizem)? @ -no Were any procedures done? @ -no Diagnosis/symptom? @ -CHest Pain Acute, or Chronic, or Acute on Chronic? @ -Acute Uncomplicated (without systemic symptoms) or Complicated (systemic symptoms)? @ -Complicated Side effects of treatment? @ -no Exacerbation, Progression, or Severe Exacerbation? @ -exacerbation Poses a threat to life or bodily function? How? (Chest pain, USA, SC, pneumonia, PE, COPD, DKA, ARF, appy, cholecystitis, CVA, Diverticulitis, Homicidal, Suicidal, threat to staff... and all critical care pts) @ -yes w ACS (Sarabjit Allen) Reevaluation #5: Differential Chest Pain: Stable Angina, Unstable Angina, STEMI, NSTEMI Aortic Dissection, Pneumothorax, Musculoskeletal, Esophageal Spasm GERD, Cholecystitis, Pancreatitis, Zoster, this is not meant to be an all-inclusive list. Differential Back Pain: Strain, zoster, cauda equina syndrome, epidural abscess, vertebral osteomyelitis, discitis, fracture, subluxation, disc herniation, DJD, spinal stenosis, dissection, AAA, pancreatitis, peptic ulcer disease, pyelonephritis, kidney stone, this is not meant to be an all-inclusive list. (Sarabjit Allen) - Consultations Consultation #1: Spoke with sound who agrees to admit this patient (Sarabjit Allen) EKG Findings - EKG Comments: EKG Findings:: EKG shows sinus 64 CA 150 QRS 98 QTc 407 - EKG Results: EKG: interpreted by ERMD <Sarabjit Allen - Last Filed: 05/12/24 05:37> Medical Decision Making <Murali Justice - Last Filed: 05/07/24 14:46> - Lab Data Result diagrams: 05/08/24 07:27 05/08/24 07:27 - Radiology Data Radiology results: report reviewed (X-ray cervical spine and thoracic spine negative for acute disease chest x-ray is negative for acute), image reviewed <Sarabjit Allen - Last Filed: 05/12/24 05:37> - Medical Decision Making I completed the quick note portion of this chart signed Murali Justice PA-C (Murali Justice) 53 female to the ER today for evaluation patient presents today for evaluation regards to chest pain back pain with "biggest complaints of back pain that began at cardiac rehab yesterday. Patient does have a mild troponin leak here in the ER and will admit with history of recent coronary artery bypass graft (Sarabjit Allen) - Lab Data Lab Results 05/07/24 05/07/24 05/07/24 Range/Units 14:54 14:54 17:21 WBC (3.8-10.6) k/uL RBC (3.80-5.40) m/uL Hgb (11.4-16.0) gm/dL Hct (34.0-46.0) % MCV (80.0-100.0) fL MCH (25.0-35.0) pg MCHC (31.0-37.0) g/dL RDW (11.5-15.5) % Plt Count (150-450) k/uL MPV Neutrophils % % Lymphocytes % % Monocytes % % Eosinophils % % Basophils % % Neutrophils # (1.3-7.7) k/uL Lymphocytes # (1.0-4.8) k/uL Monocytes # (0-1.0) k/uL Eosinophils # (0-0.7) k/uL Basophils # (0-0.2) k/uL Anisocytosis Sodium 138 (137-145) mmol/L Potassium 4.9 (3.5-5.1) mmol/L Chloride 105 (98-107) mmol/L Carbon Dioxide 22 (22-30) mmol/L Anion Gap 11 mmol/L BUN 22 H (7-17) mg/dL Creatinine 0.70 (0.52-1.04) mg/dL Est GFR (CKD-EPI)AfAm >90 (>60 ml/min/1.73 sqM) Est GFR (CKD-EPI)NonAf >90 (>60 ml/min/1.73 sqM) Glucose 233 H (74-99) mg/dL Calcium 9.7 (8.4-10.2) mg/dL Phosphorus 3.7 (2.5-4.5) mg/dL Magnesium 1.5 L (1.6-2.3) mg/dL Total Bilirubin 0.9 (0.2-1.3) mg/dL AST 28 (14-36) U/L ALT 20 (4-34) U/L Alkaline Phosphatase 104 (38-126) U/L Troponin I 0.015 (0.000-0.034) ng/mL Total Protein 7.6 (6.3-8.2) g/dL Albumin 4.6 (3.5-5.0) g/dL 05/07/24 Range/Units 17:21 WBC 7.0 (3.8-10.6) k/uL RBC 4.42 (3.80-5.40) m/uL Hgb 13.0 (11.4-16.0) gm/dL Hct 38.7 (34.0-46.0) % MCV 87.5 (80.0-100.0) fL MCH 29.4 (25.0-35.0) pg MCHC 33.6 (31.0-37.0) g/dL RDW 16.7 H (11.5-15.5) % Plt Count 272 (150-450) k/uL MPV 8.2 Neutrophils % 55 % Lymphocytes % 35 % Monocytes % 5 % Eosinophils % 3 % Basophils % 0 % Neutrophils # 3.9 (1.3-7.7) k/uL Lymphocytes # 2.5 (1.0-4.8) k/uL Monocytes # 0.3 (0-1.0) k/uL Eosinophils # 0.2 (0-0.7) k/uL Basophils # 0.0 (0-0.2) k/uL Anisocytosis Slight Sodium (137-145) mmol/L Potassium (3.5-5.1) mmol/L Chloride (98-107) mmol/L Carbon Dioxide (22-30) mmol/L Anion Gap mmol/L BUN (7-17) mg/dL Creatinine (0.52-1.04) mg/dL Est GFR (CKD-EPI)AfAm (>60 ml/min/1.73 sqM) Est GFR (CKD-EPI)NonAf (>60 ml/min/1.73 sqM) Glucose (74-99) mg/dL Calcium (8.4-10.2) mg/dL Phosphorus (2.5-4.5) mg/dL Magnesium (1.6-2.3) mg/dL Total Bilirubin (0.2-1.3) mg/dL AST (14-36) U/L ALT (4-34) U/L Alkaline Phosphatase (38-126) U/L Troponin I (0.000-0.034) ng/mL Total Protein (6.3-8.2) g/dL Albumin (3.5-5.0) g/dL Critical Care Time Critical Care Time: Yes Total Critical Care Time: 31 <Sarabjit Allen - Last Filed: 05/12/24 05:37> Disposition <Murali Justice - Last Filed: 05/07/24 14:46> Is patient prescribed a controlled substance at d/c from ED?: No Time of Disposition: 18:35 <Sarabjit Allen - Last Filed: 05/12/24 05:37> Clinical Impression: Mechanical back pain, Thoracic back pain, Chest pain, Hypomagnesemia Disposition: ADMITTED IP TO THIS HOSP Condition: Stable
--- NOTE | 2024-05-07 15:41 | XR ---
EXAMINATION TYPE: XR cervical spine comp DATE OF EXAM: 05/07/2024 CLINICAL HISTORY: pain COMPARISON: NONE TECHNIQUE: Frontal, lateral, oblique, swimmers, and open mouth view of the cervical spine are obtaine d. FINDINGS: The cervical spine is visualized in its entirety from C1 thru the top of T1 level. It is s atisfactory in alignment without evidence of acute fracture or dislocation. The pre-vertebral soft t issue appears within normal limits. Disc spaces are well preserved. The C1-C2 articulation is unremar kable on the open mouth view. The oblique images are within normal limits. IMPRESSION: No acute fracture or dislocation is seen in the cervical spine examination is limited by overlying metallic external hair hardware. .ICD 10 NO FRACTURE, INITIAL EVALUATION
--- NOTE | 2024-05-07 15:42 | XR ---
EXAMINATION TYPE: XR thoracic spine 2V DATE OF EXAM: 05/07/2024 CLINICAL HISTORY: pain TECHNIQUE: Frontal, lateral, and swimmer's view of thoracic spine are obtained. COMPARISON: None. FINDINGS: Thoracic spine show satisfactory alignment without evidence of acute fracture or dislocatio n. Vertebral body heights are preserved. Moderate multilevel degenerative disc space narrowing and s pondylosis. Visualized ribs are unremarkable. IMPRESSION: No acute fracture or dislocation is seen in the thoracic spine. ICD 10 NO FRACTURE, INIT IAL EVALUATION
[2024-05-07 17:34] LABS: ALT 20 U/L (4-34); African American GFR (CKD) >90 (>60 ml/min/1.73 sqM); Albumin 4.6 g/dL (3.5-5.0); Anion Gap 11 mmol/L; Blood Urea Nitrogen 22 mg/dL (7-17); Calcium 9.7 mg/dL (8.4-10.2); Carbon Dioxide 22 mmol/L (22-30); Chloride 105 mmol/L (98-107); Glucose 233 mg/dL (74-99); Non-African American GFR(CKD) >90 (>60 ml/min/1.73 sqM); Sodium 138 mmol/L (137-145); Total Bilirubin 0.9 mg/dL (0.2-1.3); Total Protein 7.6 g/dL (6.3-8.2)
[2024-05-07] MEDS: SODIUM CHLORIDE 0.9% 500 ML 500 ML IV STA (17:40)
[2024-05-07 17:44] LABS: Anisocytosis Slight; Basophils % (A) 0 %; Eosinophils # (A) 0.2 k/uL (0-0.7); Eosinophils % (A) 3 %; HCT 38.7 % (34.0-46.0); Lymphocytes # (A) 2.5 k/uL (1.0-4.8); Lymphocytes % (A) 35 %; MCH 29.4 pg (25.0-35.0); MCHC 33.6 g/dL (31.0-37.0); MCV 87.5 fL (80.0-100.0); Mean Platelet Volume 8.2; Monocytes # (A) 0.3 k/uL (0-1.0); Monocytes % (A) 5 %; Neutrophils # (A) 3.9 k/uL (1.3-7.7); Neutrophils % (A) 55 %; Platelet Count 272 k/uL (150-450); RBC 4.42 m/uL (3.80-5.40); RDW 16.7 % (11.5-15.5)
[2024-05-07] MEDS: MORPHINE SULFATE 4 MG/ML SYRINGE IV STA (17:44)
[2024-05-07 17:49] LABS: Alkaline Phosphatase 104 U/L (38-126); Potassium 4.9 mmol/L (3.5-5.1)
[2024-05-07 17:50] LABS: AST 28 U/L (14-36)
--- NOTE | 2024-05-07 18:14 | XR ---
EXAMINATION TYPE: XR chest 2V DATE OF EXAM: 05/07/2024 6:02 PM CLINICAL INDICATION:Female, 53 years old with history of pain; COMPARISON: Chest radiographs from 02/29/2024. TECHNIQUE: XR chest 2V Frontal view of the chest. FINDINGS: Lungs/Pleura: There is no evidence of pleural effusion, focal consolidation, or pneumothorax. Pulmonary vascularity: Unremarkable. Heart/mediastinum: Cardiomediastinal silhouette is unremarkable. Left atrial appendage occlusion low ce is present. Musculoskeletal: No acute osseous pathology. Midline sternotomy wires are noted. IMPRESSION: 1. Streaky atelectasis right midlung. Which is similar prior. 2. Cardiomegaly.
[2024-05-07 18:17] LABS: Magnesium 1.5 mg/dL (1.6-2.3); Phosphorus 3.7 mg/dL (2.5-4.5)
[2024-05-07] MEDS ORDERED: NITROGLYCERIN SL TABS 0.4 MG TAB SUBLINGUAL PRN (18:30)
[2024-05-07] MEDS: MAGNESIUM OXIDE 400 MG TAB PO STA ×2 (19:37→19:38)
[2024-05-07] MEDS: ASPIRIN 81 MG PO STA (19:39)
[2024-05-07] MEDS: HEPARIN SODIUM 1,000 UN/ML (10ML VL) IV ONE (19:41)
[2024-05-07] MEDS: HEPARIN SOD,PORK IN 0.45% NACL 25,000 UNIT in 0.45% NACL 1 250ML.BAG IV SCH (19:44)
[2024-05-07 21:55] VITALS: RESP 18
[2024-05-07] MEDS: MORPHINE SULFATE 4 MG/ML SYRINGE IV PRN (22:00)
[2024-05-07] MEDS: METOPROLOL TARTRATE 25 MG TAB PO SCH (22:11)
--- NOTE | 2024-05-08 02:25 | P.HPIM ---
History of Present Illness H&P Date: 05/07/24 Chief Complaint: Back pain and chest pain Patient is a 53-year-old female past medical history of type 2 diabetes, GERD, and CAD status post CABG presents to the ER with progressively worsening posterior neck and upper back pain that started 1 day ago at cardiac rehab center. Patient reports that pain was sudden in onset which is described as sharp, constant, 10 out of 10 radiating to both shoulders and down to the lateral sides of the chest and also to the sternal region. Pain is worse with movement and better with rest. Patient endorses radiation to the right arm with paresthesia. Denies numbness, tingling and weakness anywhere else. She denies dizziness, nausea, vomiting, fever, and chills. Patient also endorses bilateral throbbing chest pain, 6 out of 10, constant, worse with movement and better with rest started at the same time as posterior neck and upper back pain. Patient denies shortness of breath, PND, orthopnea and swelling of the lower extremities. Patient had a CABG on 04 January 2024 and is currently undergoing cardiac rehab twice a week. Patient denied any chest pain until 1 day ago. Patient continues to be in moderate pain but states that it is better with as needed morphine. EKG done in the ER normal sinus rhythm with heart rate of 54 bpm. CA interval 150 ms. T wave flattening in leads i, aVL, and V4-V6 (also present on prior EKG from 03/01/24) Chest x-ray in the ER shows cardiomegaly. Streaky atelectasis of right middle lung which is unchanged. X-ray of the cervical spine shows no acute fracture or dislocation. X-ray of the thoracic spine shows no acute fracture or dislocation. Review of systems: Pertinent positives and negatives as discussed in HPI, a complete review of systems was performed and all other systems are negative. 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 Family History: Noncontributory Physical examination: Vital signs reviewed General: Sleepy, no acute distress, appears at stated age, obese Derm: no unusual rashes/lesions, warm Head: atraumatic, normocephalic, symmetric Eyes: EOMI, no lid lag, anicteric sclera, pupils equal round reactive to light ENT: Nose and ears atraumatic Neck: No cervical lymphadenopathy, trachea midline, supple, posterior neck diffusely tender upon palpation Mouth: no lip lesion, mucus membranes moist Cardiovascular: S1S2 reg, no murmur, positive dorsalis pedis pulse bilateral, no edema, lateral chest herrera tender to palpation Lungs: CTA bilateral, no rhonchi, no rales, no accessory muscle use Abdominal: soft, nontender to palpation, no guarding Ext: muscle strength 5 out of 5 in all 4 extremities grossly, no gross muscle atrophy, no contractures, Neuro: CN II-XI grossly intact, no gross focal neuro deficits Psych: Alert, oriented, appropriate affect Assessment/Plan: 53-year-old female past medical history of type 2 diabetes, GERD, and CAD status post CABG presents to the ER with progressively worsening posterior neck and upper back pain associated with chest pain that started 1 day ago at cardiac rehab center. #Cervical radiculopathy Pain control with morphine 4 mg IV every 4 hours as needed Ordered CT of the C-spine to rule out structural abnormality Consult neurology PT consult #Atypical chest pain Continue with nitroglycerin 4 mg sublingual as needed Continue aspirin 325 mg p.o. daily Ordered Lipitor 80 mg p.o. daily Continue metoprolol 25 mg p.o. twice daily Continue monitoring troponin levels Ordered echocardiogram for cardiac assessment Consult cardiology Ordered lipid panel # Type 2 DM Check A1c Started on sliding scale short acting insulin Continue to monitor blood glucose level #Hypomagnesemia, likely due to poor nutrition Ordered magnesium 2 g p.o. stat Continue monitoring magnesium level with target goal of 2.0 DVT prophylaxis: Lovenox 40 mg subq daily The patient is admitted with an anticipated less than 2 midnight stay for evaluation of neck and chest pain CODE STATUS: Full Code Discussed with: Patient Anticipated discharge place: Home Past Medical History Past Medical History: Asthma, Coronary Artery Disease (CAD), COPD, Diabetes Mellitus, Hyperlipidemia, Hypertension, Myocardial Infarction ([place]), Musculoskeletal Disorder, Rheumatoid Arthritis (RA), Thyroid Disorder Additional Past Medical History / Comment(s): Back Pain, right shoulder pain, Hx Pituitary Tumor, BENIGN. Thyroid disorder. 3 heart attacks-most recent March 2022, 3 stents total, neuropathy; left-sided pleural effusion Last Myocardial Infarction Date:: 10/29/22 History of Any Multi-Drug Resistant Organisms: None Reported Past Surgical History: Section, Coronary Bypass/CABG, Heart Catheterization With Stent, Tubal Ligation Additional Past Surgical History / Comment(s): Pituitary Tumor Removed. colonoscopy, PAIN CLINIC PROCEDURES stents x3 c section x4; three-vessel off- pump CABG January 04, 2024; left-sided thoracentesis with removal of 950 mL fluid on January 22, 2024 Past Anesthesia/Blood Transfusion Reactions: No Reported Reaction Date of Last Stent Placement:: March 2022 Past Psychological History: Anxiety, Depression Smoking Status: Former smoker Past Alcohol Use History: None Reported Additional Past Alcohol Use History / Comment(s): The patient had been a smoker on and off for 11 years, she quit 10 yrs. 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 Past Drug Use History: Marijuana Additional Drug Use History / Comment(s): Quit marijuana prior to last admission - Past Family History Mother History Unknown: Yes Family Medical History: Deep Vein Thrombosis (DVT) Additional Family Medical History / Comment(s): Mother is alive at age 67 with history of coronary artery disease and three-vessel CABG. Daughter(s) History Unknown: Yes Family Medical History: Deep Vein Thrombosis (DVT) Additional Family Medical History / Comment(s): Patient has a total of 9 children with no major medical problems. Father History Unknown: Yes Family Medical History: Cancer Additional Family Medical History / Comment(s): Father is alive with no history of coronary artery disease. History of Prostate Cancer Sister(s) History Unknown: Yes Additional Family Medical History / Comment(s): The patient has 4 sisters and 1 brother. One sister had a myocardial infraction at age 40. Medications and Allergies Home Medications Medication Instructions Recorded Confirmed Type metFORMIN HCL [Glucophage] 1,000 mg PO BID 01/19/22 05/07/24 History Docusate [Colace] 100 mg PO BID 12/04/23 05/07/24 History Clopidogrel [Plavix] 75 mg PO DAILY #30 tab 01/08/24 05/07/24 Rx Metoprolol Succinate (ER) [Toprol 50 mg PO DAILY 03/01/24 05/07/24 History XL] Pantoprazole [Protonix] 40 mg PO DAILY 03/01/24 05/07/24 History Aspirin EC [Ecotrin Low Dose] 81 mg PO DAILY 05/07/24 05/07/24 History Ferrous Sulfate [Iron (65 MG 325 mg PO BID 05/07/24 05/07/24 History Elemental)] Gabapentin [Neurontin] 300 mg PO BID 05/07/24 05/07/24 History Meenakshi Multivitamin Gummy 2 tab PO DAILY 05/07/24 05/07/24 History Isosorbide Mononitrate ER [Imdur] 30 mg PO DAILY 05/07/24 05/07/24 History Losartan [Cozaar] 25 mg PO DAILY 05/07/24 05/07/24 History amLODIPine [Norvasc] 2.5 mg PO DAILY 05/07/24 05/07/24 History hydroCHLOROthiazide 25 mg PO DAILY 05/07/24 05/07/24 History Allergies Allergy/AdvReac Type Severity Reaction Status Date / Time peanut Allergy HIVES Verified 05/07/24 19:05 rice Allergy Rash/Hives Verified 05/07/24 19:05 seasonal Allergy Rash/Hives Uncoded 05/07/24 19:05 Physical Exam Vitals: Vital Signs Temp Pulse Pulse Resp BP BP Pulse Ox 05/07/24 23:02 97.7 F 60 18 158/93 97 05/07/24 21:52 58 L 18 169/81 96 05/07/24 16:50 97.8 F 64 16 156/82 97 05/07/24 14:40 98.8 F 65 20 174/85 100 Intake and Output 05/07/24 05/07/24 05/08/24 14:59 22:59 06:59 Other: Weight 81.647 kg 81.647 kg Results CBC & Chem 7: 05/07/24 17:21 05/07/24 14:54 Labs: Abnormal Lab Results - Last 24 Hours (Table) 05/07/24 05/07/24 05/07/24 Range/Units 14:54 17:21 17:21 RDW 16.7 H (11.5-15.5) % APTT (22.0-30.0) sec BUN 22 H (7-17) mg/dL Glucose 233 H (74-99) mg/dL Magnesium 1.5 L (1.6-2.3) mg/dL 05/08/24 Range/Units 00:24 RDW (11.5-15.5) % APTT 54.9 H (22.0-30.0) sec BUN (7-17) mg/dL Glucose (74-99) mg/dL Magnesium (1.6-2.3) mg/dL Thrombosis Risk Factor Assmnt - Choose All That Apply Any of the Below Risk Factors Present?: Yes Each Factor Represents 1 point: Age 41-60 years Other Risk Factors: No Other congenital or acquired thrombophilia - If yes, enter type in comment: No Thrombosis Risk Factor Assessment Total Risk Factor Score: 1 Thrombosis Risk Factor Assessment Level: Low Risk
[2024-05-08] MEDS: MAGNESIUM SULFATE-D5W PMX 1 GM in DEXTROSE/WATER 1 100ML.BAG IVPB SCH (02:56)
[2024-05-08 06:11] LABS: Glucose,Whole Blood 227 mg/dL (70-110)
[2024-05-08] MEDS: INSULIN ASPART (NovoLOG) 100 UNIT/ML VIAL SQ SCH (06:29)
[2024-05-08 08:02] LABS: African American GFR (CKD) >90 (>60 ml/min/1.73 sqM); Anion Gap 4 mmol/L; Blood Urea Nitrogen 19 mg/dL (7-17); Calcium 9.4 mg/dL (8.4-10.2); Carbon Dioxide 28 mmol/L (22-30); Chloride 105 mmol/L (98-107); Glucose 157 mg/dL (74-99); Magnesium 2.1 mg/dL (1.6-2.3); Non-African American GFR(CKD) >90 (>60 ml/min/1.73 sqM); Sodium 137 mmol/L (137-145)
[2024-05-08 08:11] LABS: Anisocytosis Slight; HCT 37.4 % (34.0-46.0); HGB 12.2 gm/dL (11.4-16.0); MCH 28.2 pg (25.0-35.0); MCHC 32.5 g/dL (31.0-37.0); MCV 86.8 fL (80.0-100.0); Mean Platelet Volume 8.5; Platelet Count 237 k/uL (150-450); RBC 4.31 m/uL (3.80-5.40); RDW 16.6 % (11.5-15.5); WBC 6.5 k/uL (3.8-10.6)
[2024-05-08] MEDS ORDERED: ASPIRIN 325 MG TAB PO SCH (09:00)
--- NOTE | 2024-05-08 09:32 | CT ---
EXAMINATION TYPE: CT cervical spine wo con DATE OF EXAM: 05/08/2024 COMPARISON: None HISTORY: 53-year-old female with cervical radiculopathy, neck pain TECHNIQUE: Contiguous axial scanning of the cervical spine without IV contrast. Coronal and sagittal reconstructions performed. CT DLP: 419.5 mGycm Automated exposure control for dose reduction was used. FINDINGS: Ununited median sternotomy change noted in the upper chest. No craniocervical junction and about, predental space widening, or prevertebral soft tissue swelling. Mild degenerative change C1 dens articulation. Mild to moderate degenerative disc disease and endplate spondylosis redemonstrated mid to lower cervi donal spine. Artifact from the patient's shoulders limits assessment of the spinal canal from C4 to C5 and below. There is mild narrowing of the spinal canal at mid and lower cervical spine due to disc os teophyte complexes. In addition, there is a central disc retrusion at C3-C4 which may contribute to [id number] cent ral spinal canal narrowing, axial image 38 and sagittal image 39. No significant neuroforaminal narrowing appreciated. No acute fracture is seen. Alignment is maintained. IMPRESSION: 1. MILD TO MODERATE DEGENERATIVE DISC DISEASE MID TO LOWER CERVICAL SPINE. DISC OSTEOPHYTE COMPLEXES CONTRIBUTE TO SIMILAR MILD SPINAL CANAL NARROWING AT THESE LEVELS. 2. CENTRAL DISC HERNIATION AT C3-C4 CAUSES MILD TO MODERATE CENTRAL SPINAL CANAL STENOSIS. 3. NO ACUTE FRACTURE OR MALALIGNMENT.
[2024-05-08] MEDS: hydroCHLOROthiazide 25 MG TAB PO SCH (09:49)
[2024-05-08] MEDS: METOPROLOL SUCCINATE (ER) 50 MG TAB.ER.24H PO SCH (09:49)
[2024-05-08] MEDS: GABAPENTIN 300 MG CAP PO SCH (09:49)
[2024-05-08] MEDS: ASPIRIN 81 MG PO SCH (09:49)
[2024-05-08] MEDS: ISOSORBIDE MONONITRATE ER 30 MG TAB.ER.24H PO SCH (09:49)
[2024-05-08] MEDS: amLODIPine 2.5 MG TAB PO SCH (09:49)
[2024-05-08] MEDS: ENOXAPARIN 40 MG/0.4 ML SYRINGE SQ SCH (09:49)
[2024-05-08] MEDS: LOSARTAN 25 MG TAB PO SCH (09:49)
[2024-05-08] MEDS: CLOPIDOGREL 75 MG TAB PO SCH (09:49)
[2024-05-08] MEDS: ATORVASTATIN 80 MG TAB PO SCH (09:49)
[2024-05-08 11:07] VITALS: TEMP 97.6
[2024-05-08 11:25] LABS: Glucose,Whole Blood 221 mg/dL (70-110)
--- NOTE | 2024-05-08 12:46 | P.CRDCN ---
History of Present Illness Consult date: 05/08/24 Consult reason: chest pain History of present illness: This is a 53-year-old female patient of Dr. NIMISHA Ojeda with past medical history of coronary artery disease status post bypass grafting, hypertension, hyperlipidemia, diabetes mellitus, former tobacco use and dependence, pleural effusion after CABG requiring thoracentesis. We have been asked to evaluate the patient for chest pain. Patient states that she presented to the hospital due to neck and back pain. She states she is unable to move her neck due to the pain. The pain comes around her neck and then goes down into her chest. It started on Sunday and she was concerned that something happened while she was at cardiac rehab using the arm pedal device. She states she did increase the pedaling from level 1 to level 2. Neck is very tender to touch. She denies having any fever or chills. She complains of tingling in her arms. Blood pressure 122/66, heart rate 62, pulse ox 99% on room air. She states her blood pressure at home is usually about 156 systolic. EKG: Sinus rhythm with no acute ST-T wave changes x 2 Chest x-ray: Streaky atelectasis in the right midlung. This is similar to prior. Cardiomegaly. Laboratory studies: WBC 6.5, hemoglobin 12.2. Sodium 137, potassium 4, creatinine 0.65. Troponin negative x 3. Home cardiac medications: Amlodipine 2.5 mg daily, aspirin 81 mg daily, Plavix 75 mg daily, hydrochlorothiazide 25 mg daily, Imdur 30 mg daily, losartan 25 mg daily, Toprol-XL 50 mg daily. Cardiac catheterization 12/05/2023 revealed severe disease of the ostial and proximal left main, severe disease of the ostial LAD, severe disease of the proximal RCA. Cardiovascular surgery 01/04/2024 was SANDERSON to LAD, vein graft to RCA and a free radial artery graft to the obtuse marginal performed off-pump. Echocardiogram performed 12/05/2023 revealed EF of 55%, mild to moderate TR, RVSP 41 mmHg. Review Of Systems: At the time of my exam: CONSTITUTIONAL: Denies fever or chills. Reports neck and back pain. HEENT: Denies blurred vision, vision changes, or eye pain. Denies hemoptysis CARDIOVASCULAR: Denies chest pain. Denies orthopnea. Denies PND. Denies palpitations RESPIRATORY: Denies shortness of breath. GASTROINTESTINAL: Denies abdominal pain. Denies nausea or vomiting. HEMATOLOGIC: Denies bleeding disorders. GENITOURINARY: Denies any blood in urine. SKIN: Denies puritis. Denies rash. Physical examination: Gen: This is an obese 53-year-old female appears to be quite uncomfortable due to neck pain VS: reviewed HEENT: Head is atraumatic, normocephalic. Pupils equal, round. Sclerae is anicteric. NECK: Neck is tender to touch. No JVD. LUNGS: Clear to auscultation. No wheezes or rhonchi. No intercostal retractions. HEART: Regular rate and rhythm. 2/6 systolic ejection murmur at the base. ABDOMEN: Soft No tenderness. EXTREMITIES: No pedal edema. No calf tenderness. NEUROLOGICAL: Patient is awake, alert and oriented x3. Assessment: Neck pain, back pain Chest pain most likely due to cervical radiculopathy Coronary artery disease status post bypass graft Hypertension Hyperlipidemia Diabetes mellitus Remote history of tobacco use and dependence Plan: Resume patient's home cardiac medications No further cardiac workup at this time Cardiology will sign off this case and follow on an as-needed basis. Please reconsult for any new concerns. Patient may follow-up in the office in one to 2 weeks. Thank you kindly for this consultation. Nurse practitioner note has been reviewed, I agree with documented findings and plan of care. Patient was seen and examined. Past Medical History Past Medical History: Asthma, Coronary Artery Disease (CAD), COPD, Diabetes Mellitus, Hyperlipidemia, Hypertension, Myocardial Infarction ([place]), Musculoskeletal Disorder, Rheumatoid Arthritis (RA), Thyroid Disorder Additional Past Medical History / Comment(s): Back Pain, right shoulder pain, Hx Pituitary Tumor, BENIGN. Thyroid disorder. 3 heart attacks-most recent March 2022, 3 stents total, neuropathy; left-sided pleural effusion Last Myocardial Infarction Date:: 10/29/22 History of Any Multi-Drug Resistant Organisms: None Reported Past Surgical History: Section, Coronary Bypass/CABG, Heart Catheterization With Stent, Tubal Ligation Additional Past Surgical History / Comment(s): Pituitary Tumor Removed. colonoscopy, PAIN CLINIC PROCEDURES stents x3 c section x4; three-vessel off- pump CABG January 04, 2024; left-sided thoracentesis with removal of 950 mL fluid on January 22, 2024 Past Anesthesia/Blood Transfusion Reactions: No Reported Reaction Date of Last Stent Placement:: March 2022 Past Psychological History: Anxiety, Depression Smoking Status: Former smoker Past Alcohol Use History: None Reported Additional Past Alcohol Use History / Comment(s): The patient had been a smoker on and off for 11 years, she quit 10 yrs. 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 Past Drug Use History: Marijuana Additional Drug Use History / Comment(s): Quit marijuana prior to last admission - Past Family History Mother History Unknown: Yes Family Medical History: Deep Vein Thrombosis (DVT) Additional Family Medical History / Comment(s): Mother is alive at age 67 with history of coronary artery disease and three-vessel CABG. Daughter(s) History Unknown: Yes Family Medical History: Deep Vein Thrombosis (DVT) Additional Family Medical History / Comment(s): Patient has a total of 9 children with no major medical problems. Father History Unknown: Yes Family Medical History: Cancer Additional Family Medical History / Comment(s): Father is alive with no history of coronary artery disease. History of Prostate Cancer Sister(s) History Unknown: Yes Additional Family Medical History / Comment(s): The patient has 4 sisters and 1 brother. One sister had a myocardial infraction at age 40. Medications and Allergies Home Medications Medication Instructions Recorded Confirmed Type metFORMIN HCL [Glucophage] 1,000 mg PO BID 01/19/22 05/07/24 History Docusate [Colace] 100 mg PO BID 12/04/23 05/07/24 History Clopidogrel [Plavix] 75 mg PO DAILY #30 tab 01/08/24 05/07/24 Rx Metoprolol Succinate (ER) [Toprol 50 mg PO DAILY 03/01/24 05/07/24 History XL] Pantoprazole [Protonix] 40 mg PO DAILY 03/01/24 05/07/24 History Aspirin EC [Ecotrin Low Dose] 81 mg PO DAILY 05/07/24 05/07/24 History Ferrous Sulfate [Iron (65 MG 325 mg PO BID 05/07/24 05/07/24 History Elemental)] Gabapentin [Neurontin] 300 mg PO BID 05/07/24 05/07/24 History Meenakshi Multivitamin Gummy 2 tab PO DAILY 05/07/24 05/07/24 History Isosorbide Mononitrate ER [Imdur] 30 mg PO DAILY 05/07/24 05/07/24 History Losartan [Cozaar] 25 mg PO DAILY 05/07/24 05/07/24 History amLODIPine [Norvasc] 2.5 mg PO DAILY 05/07/24 05/07/24 History hydroCHLOROthiazide 25 mg PO DAILY 05/07/24 05/07/24 History Allergies Allergy/AdvReac Type Severity Reaction Status Date / Time peanut Allergy HIVES Verified 05/07/24 19:05 rice Allergy Rash/Hives Verified 05/07/24 19:05 seasonal Allergy Rash/Hives Uncoded 05/07/24 19:05 Physical Exam Vitals: Vital Signs Temp Pulse Pulse Resp BP BP Pulse Ox 05/08/24 04:00 97.7 F 62 18 122/66 99 05/08/24 02:00 62 18 05/07/24 23:02 97.7 F 60 18 158/93 97 05/07/24 23:00 62 18 05/07/24 21:52 58 L 18 169/81 96 05/07/24 16:50 97.8 F 64 16 156/82 97 05/07/24 14:40 98.8 F 65 20 174/85 100 Intake and Output 05/07/24 05/08/24 05/08/24 22:59 06:59 14:59 Intake Total 210 Balance 210 Intake: IV 10 0.9 10 Intake, IV Titration 200 Amount Magnesium Sulfate-D5w Pmx 200 1 gm In Dextrose/Water 1 100ml.bag @ 100 mls/hr IVPB Q1H [facility] Rx#: [id number] Other: Voiding Method Toilet # Voids 1 Weight 82.5 kg Results 05/08/24 07:27 05/08/24 07:27 Cardiac Enzymes 05/07/24 05/07/24 05/07/24 Range/Units 14:54 14:54 18:58 AST 28 (14-36) U/L Troponin I 0.015 <0.012 (0.000-0.034) ng/mL 05/08/24 Range/Units 00:29 AST (14-36) U/L Troponin I <0.012 (0.000-0.034) ng/mL Coagulation 05/07/24 05/08/24 05/08/24 Range/Units 18:58 00:24 07:27 APTT 23.9 54.9 H 22.0 (22.0-30.0) sec CBC 05/07/24 05/08/24 Range/Units 17:21 07:27 WBC 7.0 6.5 (3.8-10.6) k/uL RBC 4.42 4.31 (3.80-5.40) m/uL Hgb 13.0 12.2 (11.4-16.0) gm/dL Hct 38.7 37.4 (34.0-46.0) % Plt Count 272 237 (150-450) k/uL Comprehensive Metabolic Panel 05/07/24 05/08/24 Range/Units 14:54 07:27 Sodium 138 137 (137-145) mmol/L Potassium 4.9 4.0 (3.5-5.1) mmol/L Chloride 105 105 (98-107) mmol/L Carbon Dioxide 22 28 (22-30) mmol/L BUN 22 H 19 H (7-17) mg/dL Creatinine 0.70 0.65 (0.52-1.04) mg/dL Glucose 233 H 157 H (74-99) mg/dL Calcium 9.7 9.4 (8.4-10.2) mg/dL AST 28 (14-36) U/L ALT 20 (4-34) U/L Alkaline Phosphatase 104 (38-126) U/L Total Protein 7.6 (6.3-8.2) g/dL Albumin 4.6 (3.5-5.0) g/dL Current Medications Generic Name Dose Route Start Last Admin Trade Name Freq PRN Reason Stop Dose Admin Aspirin 325 mg 05/08/24 09:00 Aspirin 325 Mg Tab PO DAILY [facility] Atorvastatin Calcium 80 mg 05/08/24 09:00 Atorvastatin 80 Mg Tab PO DAILY [facility] Enoxaparin Sodium 40 mg 05/08/24 09:00 Enoxaparin 40 Mg/0.4 Ml Syringe SQ DAILY [facility] Insulin Aspart 0 unit 05/08/24 07:30 05/08/24 06:29 Insulin Aspart (Novolog) 100 Unit/Ml Vial SQ 4 unit ACHS [facility] Administration Protocol Metoprolol Tartrate 25 mg 05/07/24 21:00 05/07/24 22:11 Metoprolol Tartrate 25 Mg Tab PO 25 mg BID TIERA Administration Morphine Sulfate 4 mg 05/07/24 18:30 05/07/24 22:00 Morphine Sulfate 4 Mg/Ml Syringe IV 4 mg Q4HR PRN Administration Chest Pain Nitroglycerin 0.4 mg 05/07/24 18:30 Nitroglycerin Sl Tabs 0.4 Mg Tab SUBLINGUAL Q5M PRN Chest Pain Intake and Output 05/07/24 05/08/24 05/08/24 22:59 06:59 14:59 Intake Total 210 Balance 210 Intake: IV 10 0.9 10 Intake, IV Titration 200 Amount Magnesium Sulfate-D5w Pmx 200 1 gm In Dextrose/Water 1 100ml.bag @ 100 mls/hr IVPB Q1H [facility] Rx#: [id number] Other: Voiding Method Toilet # Voids 1 Weight 82.5 kg 05/08/24 07:27 05/08/24 07:27
[2024-05-08] MEDS: PANTOPRAZOLE 40 MG TABLET PO SCH (12:51)
[2024-05-08] MEDS: CYCLOBENZAPRINE 5 MG TAB PO PRN (12:51)
[2024-05-08] MEDS: LIDOCAINE 4% PATCH TOPICAL SCH (12:51)
--- NOTE | 2024-05-08 13:04 | CA ---
Transthoracic Echo Report Name: Eleazar Balbuena Age: 53 Gender: F : 1970 Exam Date: 05/08/2024 09:15 Exam Location: [facility] Ht (in): 57 Wt (lb): 180 Ordering Physician: Sarabjit Allen DO Attending/Referring Phys: [id number], Alejandro Passementerie Worker Camelia Cano RDCS Procedure CPT: Indications: CP Cardiac Hx: Technical Quality: Fair Contrast 1: Total Dose (mL): Contrast 2: Total Dose (mL): MEASUREMENTS (Male / Female) Normal Values 2D ECHO LV Diastolic Diameter PLAX 4.2 cm 4.2 - 5.9 / 3.9 - 5.3 cm LV Systolic Diameter PLAX 2.8 cm IVS Diastolic Thickness 1.1 cm 0.6 - 1.0 / 0.6 - 0.9 cm LVPW Diastolic Thickness 1.0 cm 0.6 - 1.0 / 0.6 - 0.9 cm LV Relative Wall Thickness 0.5 DOPPLER TR Peak Velocity 264.7 cm/s TR Peak Gradient 28.0 mmHg PV Peak Velocity 63.7 cm/s PV Peak Gradient 1.6 mmHg FINDINGS Left Ventricle Left ventricular ejection fraction is estimated at 60 %. Mildly increased septal wall thickness. Mildly increased posterior wall thickness. No obvious regional wall motion abnormalities. Right Ventricle Normal right ventricular size and function. Right Atrium Right atrium not well visualized. Left Atrium Left atrium not well visualized. Mitral Valve Structurally normal mitral valve. Trace mitral regurgitation. Aortic Valve Trileaflet aortic valve. No aortic valve stenosis or regurgitation. Tricuspid Valve Structurally normal tricuspid valve. Mild tricuspid regurgitation. Pulmonic Valve Pulmonic valve not well visualized. No pulmonic stenosis. Trace pulmonic regurgitation. Pericardium No pericardial effusion. Aorta Aortic root and proximal ascending aorta not well visualized. CONCLUSIONS Left ventricular ejection fraction 60% Mildly increased left ventricular wall thickness Trace mitral regurgitation Mild tricuspid regurgitation No pericardial effusion Previewed by: Dr. nAiceto Olmstead DO (Electronically Signed) Final Date: 08 May 2024 13:03
--- NOTE | 2024-05-08 14:23 | P.CNNES ---
History of Present Illness Consult date: 05/08/24 Requesting physician: Juan Manuel Knox Reason for Consult: cervical radiculopathy History of Present Illness: This is a 53-year-old woman history of coronary artery disease status post stent as well as CABG in December 2023, diabetes mellitus, rheumatoid arthritis who presents because of neck pain. Patient stated that she was in rehab and overworked on her therapy as a result she started having neck pain in the middle and the base of the posterior neck region she felt was rating down the chest region. She denies any numbness tingling. Denies any weakness. Denies any neck trauma or any falls. She does have history of diabetic neuropathy follows up with Dr. Britton her neurologist as an outpatient. Feels her symptoms are better today compared to initial presentation. Some of the workup during this hospital visit consisted of: Hemoglobin A1c is 9.7. I reviewed the rest of the lab workup CT cervical spine is reported as mild to moderate degenerative disc disease mid to lower cervical spine. Disc osteophyte complex contribute to similar mild spinal canal narrowing at these levels. Central disc herniation at C3-C4 causes mild to moderate central spinal canal stenosis. No acute fracture or malalignment. I personally reviewed the CT cervical spine and I do not feel the patient has any severe cervical spinal stenosis from the images Review of Systems The positive and negative as per HPI. Past Medical History Past Medical History: Asthma, Coronary Artery Disease (CAD), COPD, Diabetes Mellitus, Hyperlipidemia, Hypertension, Myocardial Infarction (ND), Musculoskeletal Disorder, Rheumatoid Arthritis (RA), Thyroid Disorder Additional Past Medical History / Comment(s): Back Pain, right shoulder pain, Hx Pituitary Tumor, BENIGN. Thyroid disorder. 3 heart attacks-most recent March 2022, 3 stents total, neuropathy; left-sided pleural effusion Last Myocardial Infarction Date:: 10/29/22 History of Any Multi-Drug Resistant Organisms: None Reported Past Surgical History: Section, Coronary Bypass/CABG, Heart Catheterization With Stent, Tubal Ligation Additional Past Surgical History / Comment(s): Pituitary Tumor Removed. colonoscopy, [facility] PROCEDURES stents x3 c section x4; three-vessel off-pu mp CABG January 04, 2024; left-sided thoracentesis with removal of 950 mL fluid on January 22, 2024 Past Anesthesia/Blood Transfusion Reactions: No Reported Reaction Date of Last Stent Placement:: March 2022 Past Psychological History: Anxiety, Depression Smoking Status: Former smoker Past Alcohol Use History: None Reported Additional Past Alcohol Use History / Comment(s): The patient had been a smoker on and off for 11 years, she quit 10 yrs. 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 Past Drug Use History: Marijuana Additional Drug Use History / Comment(s): Quit marijuana prior to last admission - Past Family History Mother History Unknown: Yes Family Medical History: Deep Vein Thrombosis (DVT) Additional Family Medical History / Comment(s): Mother is alive at age 67 with history of coronary artery disease and three-vessel CABG. Daughter(s) History Unknown: Yes Family Medical History: Deep Vein Thrombosis (DVT) Additional Family Medical History / Comment(s): Patient has a total of 9 chil dren with no major medical problems. Father History Unknown: Yes Family Medical History: Cancer Additional Family Medical History / Comment(s): Father is alive with no history of coronary artery disease. History of Prostate Cancer Sister(s) History Unknown: Yes Additional Family Medical History / Comment(s): The patient has 4 sisters and 1 brother. One sister had a myocardial infraction at age 40. Medications and Allergies Home Medications Medication Instructions Recorded Confirmed Type metFORMIN HCL [Glucophage] 1,000 mg PO BID 01/19/22 05/07/24 History Docusate [Colace] 100 mg PO BID 12/04/23 05/07/24 History Clopidogrel [Plavix] 75 mg PO DAILY #30 tab 01/08/24 05/07/24 Rx Metoprolol Succinate (ER) [Toprol 50 mg PO DAILY 03/01/24 05/07/24 History XL] Pantoprazole [Protonix] 40 mg PO DAILY 03/01/24 05/07/24 History Aspirin EC [Ecotrin Low Dose] 81 mg PO DAILY 05/07/24 05/07/24 History Ferrous Sulfate [Iron (65 MG 325 mg PO BID 05/07/24 05/07/24 History Elemental)] Gabapentin [Neurontin] 300 mg PO BID 05/07/24 05/07/24 History Meenakshi Multivitamin Gummy 2 tab PO DAILY 05/07/24 05/07/24 History Isosorbide Mononitrate ER [Imdur] 30 mg PO DAILY 05/07/24 05/07/24 History Losartan [Cozaar] 25 mg PO DAILY 05/07/24 05/07/24 History amLODIPine [Norvasc] 2.5 mg PO DAILY 05/07/24 05/07/24 History hydroCHLOROthiazide 25 mg PO DAILY 05/07/24 05/07/24 History Atorvastatin [Lipitor] 80 mg PO DAILY #90 tab 05/08/24 Rx Cyclobenzaprine [Flexeril] 5 mg PO TID PRN #14 tab 05/08/24 Rx Lidocaine 4% Patch 1 patch TOPICAL DAILY #7 patch 05/08/24 Rx Allergies Allergy/AdvReac Type Severity Reaction Status Date / Time peanut Allergy HIVES Verified 05/07/24 19:05 rice Allergy Rash/Hives Verified 05/07/24 19:05 seasonal Allergy Rash/Hives Uncoded 05/07/24 19:05 Physical Examination - Vital Signs Vital Signs: Vital Signs Temp Pulse Pulse Resp BP BP Pulse Ox 05/08/24 08:00 97.6 F 50 L 18 156/84 90 L 05/08/24 04:00 97.7 F 62 18 122/66 99 05/08/24 02:00 62 18 05/07/24 23:02 97.7 F 60 18 158/93 97 05/07/24 23:00 62 18 05/07/24 21:52 58 L 18 169/81 96 05/07/24 16:50 97.8 F 64 16 156/82 97 05/07/24 14:40 98.8 F 65 20 174/85 100 Intake and Output 05/07/24 05/08/24 05/08/24 22:59 06:59 14:59 Intake Total 210 240 Output Total 0 Balance 210 240 Intake: IV 10 0.9 10 Intake, IV Titration 200 Amount Magnesium Sulfate-D5w Pmx 200 1 gm In Dextrose/Water 1 100ml.bag @ 100 mls/hr IVPB Q1H PENDING SALE TO [facility] Rx#: [id number] Oral 240 Output: Gastric Drainage 0 Urine 0 Stool 0 Urine/Stool Mix 0 Emesis 0 Oral Regurgitation 0 Other 0 Other: Voiding Method Toilet Toilet # Voids 1 0 # Bowel Movements 0 Weight 82.5 kg GENERAL: The patient is lying in bed and is not in acute distress. NEUROLOGICAL: Higher mental function: The patient is awake, alert, oriented to self, place and time. Patient is following commands. No aphasia and no neglect. Cranial nerves: The pupils are round, equal and reactive to light and accommodation. Visual sy are full to confrontation throughout. Extraocular movement is intact no nystagmus is noted. Facial sensation is normal to touch throughout. The facial strength is normal throughout. Hearing is normal bilaterally to hand rub. Tongue is midline and moved [id number] without any difficulty. No dysarthria is noted. Shoulder shrug is normal bilaterally. Motor: The strength is 5 over 5 throughout. Normal tone and bulk. Cerebellum: Normal finger to nose heel to farley bilaterally. Sensation: Sensation is normal to touch throughout. Reflexes (right/left): 2+ throughout. Plantars are downgoing bilaterally. Results - Laboratory Findings CBC and BMP: 05/08/24 07:05/08/24 07:27 Abnormal Lab Findings: Abnormal Labs 05/07/24 05/07/24 05/07/24 14:54 17:21 17:21 RDW 16.7 H APTT BUN 22 H Glucose 233 H POC Glucose (mg/dL) Hemoglobin A1c Magnesium 1.5 L 05/08/24 05/08/24 05/08/24 00:24 06:07 07:27 RDW 16.6 H APTT 54.9 H BUN Glucose POC Glucose (mg/dL) 227 H Hemoglobin A1c Magnesium 05/08/24 05/08/24 05/08/24 07:27 07:27 11:24 RDW APTT BUN 19 H Glucose 157 H POC Glucose (mg/dL) 221 H Hemoglobin A1c 9.7 H Magnesium Assessment and Plan Assessment: Is a 53-year-old woman who had a recent cardiac bypass and is in therapy and she stated that she overworked herself and as a result she is having neck pain she feels the neck pain is rating down to the anterior chest region bilaterally. She denies any numbness tingling or weakness. CT cervical spine is reported as mild to moderate degenerative disc disease mid to lower cervical spine. Bilateral cervical radiculopathy and likely patient has musculoskeletal component. Currently patient has no focal weakness in the upper extremity numbness. History of coronary artery disease status post stent and recent CABG in December 2023 History of diabetes History of diabetic neuropathy History of rheumatoid arthritis. Plan: Patient does not want MRI as an inpatient but if she continues to have neck pain after physical therapy then I would recommend MRI of the cervical spine as an outpatient and that can be addressed by her neurologist (Dr. Britton). Also if she continues to have pain numbness weakness in the upper extremity then recommend EMG with nerve conduction study of the uppers as an outpatient. Consider orthopedic surgery team as an outpatient if she continues to have pain without relief of of therapy or medication. I agree with the primary team of starting the patient on Flexeril 5 mg 1 tablet 3 times daily. Patient is on gabapentin 300 mg twice daily. She is also has lidocaine patch for the neck pain which I also agree with. Will defer the rest of the medical management to primary team and other specialist. Plan discussed with the patient and the primary team Thank for the consultation. There is no further neurological workup. Time with Patient: Greater than 30
[2024-05-08 14:49] VITALS: BP 138/75; PULSE 59
--- NOTE | 2024-05-08 14:56 | P.DS ---
Providers Date of admission: 05/07/24 18:30 Expected date of discharge: 05/08/24 Attending physician: Helen Clayton MD Consults: 05/07/24 18:30 Consult Physician Urgent Consulting Provider: Eliana Rose Consult Reason/Comments: cp Do you want consulting provider notified?: Yes 05/08/24 02:34 Consult Physician Urgent Consulting Provider: Nacho Regan Consult Reason/Comments: cervical radiculopathy Do you want consulting provider notified?: Yes Primary care physician: [facility] Hospital Course: Discharge Diagnosis: Cervical muscle strain Atypical chest pain: Unlikely ACS Type II DM Hypomagnesemia Hospital Course: 53-year-old female past medical history of type 2 diabetes, GERD, and CAD status post CABG presents to the ER with progressively worsening posterior neck and upper back pain associated with chest pain that started 1 day ago at cardiac rehab center. In the ED patient admitted to chest pain, paresthesia in the right arm, but denies numbness, tingling, weakness, shortness of breath, PND, orthopnea, and swelling of the lower extremities. Vitals in the ED were significant for blood pressure of 174/85, respiratory rate of 20, and other vitals were within normal limits. In the ED patient's labs were significant for sodium 138, potassium 4.9, BUN 22, glucose 233, WBC 7, hemoglobin 13, and RDW 16.7. Imaging in the ED were significant for a x-ray of the cervical spine which showed no acute fracture or dislocation. Patient also received a thoracic spine x-ray which showed no acute fracture or dislocation. In addition patient also received an EKG which showed sinus rhythm, and septal myocardial infarction of indeterminate age, and moderate T wave abnormality. In the ED patient rec eived morphine, NS, aspirin, heparin, magnesium oxide, and nitroglycerin. Patient was admitted for workup of cervical radiculopathy of unknown etiology and atypical chest pain. While in the hospital patient received CT of the cervical spine which showed mild to moderate degenerative disc disease, central disc herniation at C3-C4 causing mild to moderate central spinal canal stenosis, and no acute fracture or malalignment. Patient also received an echocardiogram which showed an ejection fraction of 60%, mildly increased left ventricular wall thickness, trace mitral regurg, and mild tricuspid regurg. Patient also received medication to control her blood pressure. ACS ruled out. Cardiology was consulted, recommending outpatient follow-up. Neurology was consulted, also recommending symptomatic treatment, outpatient follow-up with PCP. At this point the patient's pain was well-controlled, and she is being sent home with pain medication to alleviate further symptom exacerbation. Patient is discharged to home with self-care. Patient is advised to follow-up with her PCP and chemical dependency therapist. Patient also advised to review patient handouts in regards to neck pain. Vital signs reveiwed and stable: General: Sleepy, no acute distress, appears at stated age, obese Derm: no unusual rashes/lesions, warm Head: atraumatic, normocephalic, symmetric Eyes: EOMI, no lid lag, anicteric sclera, pupils equal round reactive to light ENT: Nose and ears atraumatic Neck: No cervical lymphadenopathy, trachea midline, supple, posterior neck diffusely tender upon palpation Mouth: no lip lesion, mucus membranes moist Cardiovascular: S1S2 reg, no murmur, positive dorsalis pedis pulse bilateral, no edema, lateral chest herrera tender to palpation Lungs: CTA bilateral, no rhonchi, no rales, no accessory muscle use Abdominal: soft, nontender to palpation, no guarding Ext: muscle strength 5 out of 5 in all 4 extremities grossly, no gross muscle atrophy, no contractures, Neuro: CN II-XI grossly intact, no gross focal neuro deficits Psych: Alert, oriented, appropriate affect A total of 33 minutes were spent preparing this complex discarge summary. Patient was discharged on 05/08/2024 at 1354. I have seen and evaluated the patient today. Discussed with the resident and agree with the residents finding and plan as documented in the resident's note. Changes highlighted in blue font. Patient Condition at Discharge: Stable Plan - Discharge Summary Discharge Rx Participant: Yes New Discharge Prescriptions: New Lidocaine 4% Patch 1 patch TOPICAL DAILY #7 patch Atorvastatin [Lipitor] 80 mg PO DAILY #90 tab Cyclobenzaprine [Flexeril] 5 mg PO TID PRN #14 tab PRN Reason: Muscle Spasm Continue Docusate [Colace] 100 mg PO BID Clopidogrel [Plavix] 75 mg PO DAILY #30 tab Pantoprazole [Protonix] 40 mg PO DAILY Meenakshi Multivitamin Gummy 2 tab PO DAILY Aspirin EC [Ecotrin Low Dose] 81 mg PO DAILY amLODIPine [Norvasc] 2.5 mg PO DAILY Ferrous Sulfate [Iron (65 MG Elemental)] 325 mg PO BID metFORMIN HCL [Glucophage] 1,000 mg PO BID Metoprolol Succinate (ER) [Toprol XL] 50 mg PO DAILY hydroCHLOROthiazide 25 mg PO DAILY Isosorbide Mononitrate ER [Imdur] 30 mg PO DAILY Losartan [Cozaar] 25 mg PO DAILY Gabapentin [Neurontin] 300 mg PO BID Discharge Medication List metFORMIN HCL [Glucophage] 1,000 mg PO BID 01/19/22 [History] Docusate [Colace] 100 mg PO BID 12/04/23 [History] Clopidogrel [Plavix] 75 mg PO DAILY #30 tab 01/08/24 [Rx] Metoprolol Succinate (ER) [Toprol XL] 50 mg PO DAILY 03/01/24 [History] Pantoprazole [Protonix] 40 mg PO DAILY 03/01/24 [History] Aspirin EC [Ecotrin Low Dose] 81 mg PO DAILY 05/07/24 [History] Ferrous Sulfate [Iron (65 MG Elemental)] 325 mg PO BID 05/07/24 [History] Gabapentin [Neurontin] 300 mg PO BID 05/07/24 [History] Meenakshi Multivitamin Gummy 2 tab PO DAILY 05/07/24 [History] Isosorbide Mononitrate ER [Imdur] 30 mg PO DAILY 05/07/24 [History] Losartan [Cozaar] 25 mg PO DAILY 05/07/24 [History] amLODIPine [Norvasc] 2.5 mg PO DAILY 05/07/24 [History] hydroCHLOROthiazide 25 mg PO DAILY 05/07/24 [History] Atorvastatin [Lipitor] 80 mg PO DAILY #90 tab 05/08/24 [Rx] Cyclobenzaprine [Flexeril] 5 mg PO TID PRN #14 tab 05/08/24 [Rx] Lidocaine 4% Patch 1 patch TOPICAL DAILY #7 patch 05/08/24 [Rx] Follow up Appointment(s)/Referral(s): Will Ojeda MD [STAFF PHYSICIAN] - 05/14/24 9:00 am (Ask office if you need to keep scheduled [place] appointment.) [facility] [Primary Care Provider] - 1-2 days Patient Instructions/Handouts: Neck Pain (DC) Activity/Diet/Wound Care/Special Instructions: Please see your PCP and chemical dependency therapist. Discharge Disposition: HOME SELF-CARE
[2024-05-08 18:42] LABS: Chol/HDL Ratio 4.73 Ratio; LDL Cholesterol,Calculated 177.8 mg/dL (0.0-131.0)
== END 2024-05-08 17:19 | disposition home or self-care (01) ==
LOC: EC 14:28 → 6NMEDSUR 18:30 → 3SCARD 21:20
PROVIDERS: ADMIT Internal Medicine; ATTEND Internal Medicine
DX: S16.1XXA Strain of muscle, fascia and tendon at neck level, initial encounter (principal); X58.XXXA Exposure to other specified factors, initial encounter; M50.11 Cervical disc disorder with radiculopathy, high cervical region; M48.02 Spinal stenosis, cervical region; M25.78 Osteophyte, vertebrae; M54.6 Pain in thoracic spine; R07.89 Other chest pain; E83.42 Hypomagnesemia; I25.10 Atherosclerotic heart disease of native coronary artery without angina pectoris; J44.9 Chronic obstructive pulmonary disease, unspecified; E11.40 Type 2 diabetes mellitus with diabetic neuropathy, unspecified; E78.5 Hyperlipidemia, unspecified; I10 Essential (primary) hypertension; F32.A Depression, unspecified; F41.9 Anxiety disorder, unspecified; M06.9 Rheumatoid arthritis, unspecified; K21.9 Gastro-esophageal reflux disease without esophagitis; I25.2 Old myocardial infarction; Z87.891 Personal history of nicotine dependence; Z95.5 Presence of coronary angioplasty implant and graft; Z79.84 Long term (current) use of oral hypoglycemic drugs; Z79.899 Other long term (current) drug therapy; Z79.82 Long term (current) use of aspirin; Z79.02 Long term (current) use of antithrombotics/antiplatelets
CPT/HCPCS: 96376 ×2; 96366 ×3; 96372; 96361; 96365; 96375; 99285; 36415; 93005; 93306; 97161; 80061; 80053; 80048; 83735 ×2; 84100; 84484 ×2; 85025; 85027; 85730 ×2; 83036; 72070; 72050; 71046; 72125; G0378 ×3; L0120; J2270 ×2; J1650; J1644 ×2; J3475

== ENCOUNTER 2024-05-30 14:41 | Emergency (ER) | payer OTHER ==
[2024-05-30] MEDS ORDERED: MORPHINE SULFATE 4 MG/ML SYRINGE ONE (15:33)
[2024-05-30] MEDS ORDERED: HYDROmorphone 0.5 MG/0.5 ML SYRINGE ONE (19:25)
--- NOTE | 2024-06-26 12:32 | CT ---
EXAM: CT cervical spine without contrast DATE: 05/30/2024 INDICATION: Patient age:TALISHA CARL : 1970 Reason for study: NECK PAIN WITH RADICULOPATHY COMPARISON: None. TECHNIQUE: Axial CT images from the skull base to the inferior aspect of T2 we obtained without intra venous contrast. Coronal and sagittal reformatted images were also reviewed. One or more CT dose redu ction strategies were utilized during this examination. Total DLP administered was 445.9 mGycm . FINDINGS: Fracture: None. Osseous structures: Multilevel degenerative disc disease changes with endplate spurring and disc oste ophyte complex's. Vertebral alignment: Within normal limits. Spinal canal/Neural Foramina: C3-C4 Central disc protrusion with at least moderate spinal canal stenosis. Series 205 image 43. No e vidence of significant neural foramina narrowing. Neck soft tissues: Prevertebral soft tissues are within normal limits. Other: The airway is patent. Sternotomy wires are present IMPRESSION: 1. No evidence of cervical spine fracture. 2. C3-C4 Central disc protrusion with at least moderate spinal canal stenosis. Series 205 image 43. C onsider further evaluation with MRI. 3. Mild multilevel degenerative disc disease. Neural foramen appear grossly patent on CT imaging.
--- NOTE | 2024-06-27 14:40 | XR ---
EXAMINATION TYPE: XR chest 2V DATE OF EXAM: 05/30/2024 COMPARISON: Chest radiographs from 05/07/2024 TECHNIQUE: XR chest 2V Frontal and lateral views of the chest. CLINICAL INDICATION:Female, 53 years old with history of HIGH BP CHEST PAINS; FINDINGS: Lungs/Pleura: There is no evidence of pleural effusion, focal consolidation, or pneumothorax. Bibasi lar linear atelectasis and/or scarring redemonstrated. Pulmonary vascularity: Unremarkable. Heart/mediastinum: Cardiomediastinal silhouette is enlarged and stable. Postoperative changes are pr esent in the mediastinum. Left atrial appendage occlusion devices present. Musculoskeletal: No acute osseous pathology. Midline sternotomy wires are noted and stable. IMPRESSION: 1. Bibasilar linear atelectasis and/or scarring redemonstrated. 2. Post-CABG changes.
== END 2024-05-30 19:40 | disposition home or self-care (01) ==
LOC: EC 14:41
CPT/HCPCS: 71046; 72125; 96374; 99284

== ENCOUNTER 2024-07-23 17:23 | Emergency (ER) | payer OTHER ==
[2024-07-23 17:33] VITALS: PULSE 75; TEMP 98.2
[2024-07-23] MEDS: methylPREDNISolone SOD SUCCI 125 MG/2 ML VIAL IV STA (18:34)
[2024-07-23] MEDS: FAMOTIDINE 20 MG/2 ML VIAL IV STA (18:34)
[2024-07-23] MEDS: KETOROLAC 15 MG/ML 1 ML VIAL IVP STA (18:34)
[2024-07-23] MEDS: SODIUM CHLORIDE 0.9% 1,000 ML IV STA (18:34)
[2024-07-23] MEDS: diphenhydrAMINE 50 MG/ML 1 ML VIAL IVP STA (18:35)
--- NOTE | 2024-07-23 18:55 | XR ---
EXAMINATION TYPE: XR chest 2V DATE OF EXAM: 07/23/2024 6:52 PM CLINICAL INDICATION: Female, 53 years old with history of allergic reaction; COMPARISON: Chest radiographs from 05/30/2024 TECHNIQUE: XR chest 2V Frontal view of the chest. FINDINGS: Lungs/Pleura: There is no evidence of pleural effusion, focal consolidation, or pneumothorax. Pulmonary vascularity: Unremarkable. Heart/mediastinum: Cardiomediastinal silhouette is unremarkable. Left atrial appendage occlusion low ce is present. Musculoskeletal: No acute osseous pathology. Midline sternotomy wires are noted. IMPRESSION: No acute cardiopulmonary disease/process. [facility] Rose Moore, , 07/23/2024 6:53 PM
--- NOTE | 2024-07-23 19:59 | ED ---
General Adult HPI - General Chief complaint: Allergic Reaction Stated complaint: Bee sting Time Seen by Provider: 07/23/24 18:00 Source: patient, RN notes reviewed, old records reviewed Mode of arrival: EMS Limitations: no limitations - History of Present Illness Initial comments: Patient is a 53-year-old female presents emergency department complaining of a bee sting. Has a history of CABG, asthma, diabetes, hypertension. Was stung just prior to arrival on her right wrist. Complains of pain and swelling at the site. Denies any systemic pruritus, difficulty in breathing, difficulty swallowing, nausea or vomiting. Denies any hives. Presents for further evaluation at this time. States she does have a remote history of breaking out in hives from a bee sting. - Related Data Home Medications Medication Instructions Recorded Confirmed metFORMIN HCL [Glucophage] 1,000 mg PO BID 01/19/22 05/07/24 Docusate [Colace] 100 mg PO BID 12/04/23 05/07/24 Metoprolol Succinate (ER) [Toprol 50 mg PO DAILY 03/01/24 05/07/24 XL] Pantoprazole [Protonix] 40 mg PO DAILY 03/01/24 05/07/24 Aspirin EC [Ecotrin Low Dose] 81 mg PO DAILY 05/07/24 05/07/24 Ferrous Sulfate [Iron (65 MG 325 mg PO BID 05/07/24 05/07/24 Elemental)] Gabapentin [Neurontin] 300 mg PO BID 05/07/24 05/07/24 Meenakshi Multivitamin Gummy 2 tab PO DAILY 05/07/24 05/07/24 Isosorbide Mononitrate ER [Imdur] 30 mg PO DAILY 05/07/24 05/07/24 Losartan [Cozaar] 25 mg PO DAILY 05/07/24 05/07/24 amLODIPine [Norvasc] 2.5 mg PO DAILY 05/07/24 05/07/24 hydroCHLOROthiazide 25 mg PO DAILY 05/07/24 05/07/24 Previous Rx's Medication Instructions Recorded Clopidogrel [Plavix] 75 mg PO DAILY #30 tab 01/08/24 Atorvastatin [Lipitor] 80 mg PO DAILY #90 tab 05/08/24 Cyclobenzaprine [Flexeril] 5 mg PO TID PRN #14 tab 05/08/24 Lidocaine 4% Patch 1 patch TOPICAL DAILY #7 patch 05/08/24 Allergies Allergy/AdvReac Type Severity Reaction Status Date / Time peanut Allergy HIVES Verified 07/23/24 17:34 rice Allergy Rash/Hives Verified 07/23/24 17:34 seasonal Allergy Rash/Hives Uncoded 07/23/24 17:34 Review of Systems ROS Statement: Those systems with pertinent positive or pertinent negative responses have been documented in the HPI. Review of Systems: CONST: Denies fever EYES: Denies blurry vision ENT: Denies nasal congestion C/V: Denies Chest pain RESP: Denies shortness of breath GI: Denies abdominal pain : Denies dysuria SKIN: Endorses right wrist bee sting, pain MSK: Denies joint pain. NEURO: Denies headache ROS Other: All systems not noted in ROS Statement are negative. Past Medical History Past Medical History: Asthma, Coronary Artery Disease (CAD), COPD, Diabetes Mellitus, Hyperlipidemia, Hypertension, Myocardial Infarction ([place]), Musculoskeletal Disorder, Rheumatoid Arthritis (RA), Thyroid Disorder Additional Past Medical History / Comment(s): Back Pain, right shoulder pain, Hx Pituitary Tumor, BENIGN. Thyroid disorder. 3 heart attacks-most recent March 2022, 3 stents total, neuropathy; left-sided pleural effusion Last Myocardial Infarction Date:: 10/29/22 History of Any Multi-Drug Resistant Organisms: None Reported Past Surgical History: Section, Coronary Bypass/CABG, Heart Catheterization With Stent, Tubal Ligation Additional Past Surgical History / Comment(s): Pituitary Tumor Removed. colonoscopy, PAIN CLINIC PROCEDURES stents x3 c section x4; three-vessel off- pump CABG January 04, 2024; left-sided thoracentesis with removal of 950 mL fluid on January 22, 2024 Past Anesthesia/Blood Transfusion Reactions: No Reported Reaction Date of Last Stent Placement:: March 2022 Past Psychological History: Anxiety, Depression Smoking Status: Former smoker Past Alcohol Use History: None Reported Past Drug Use History: Marijuana - Past Family History Mother History Unknown: Yes Family Medical History: Deep Vein Thrombosis (DVT) Additional Family Medical History / Comment(s): Mother is alive at age 67 with history of coronary artery disease and three-vessel CABG. Daughter(s) History Unknown: Yes Family Medical History: Deep Vein Thrombosis (DVT) Additional Family Medical History / Comment(s): Patient has a total of 9 children with no major medical problems. Father History Unknown: Yes Family Medical History: Cancer Additional Family Medical History / Comment(s): Father is alive with no history of coronary artery disease. History of Prostate Cancer Sister(s) History Unknown: Yes Additional Family Medical History / Comment(s): The patient has 4 sisters and 1 brother. One sister had a myocardial infraction at age 40. General Exam - General Exam Comments Initial Comments: General: Appears in mild amount of pain HEAD: Normal with no signs of head trauma. EYES: EOMI ENT: Hearing grossly intact, normal oropharynx. No stridor. RESPIRATORY: Clear breath sounds bilaterally. No wheezes, rales, or rhonchi. No hypoxia. C/V: Regular rate and rhythm. S1 and S2 auscultated, peripheral pulses 2+ and intact throughout ABD: Abd is soft, nontender, nondistended EXT: Normal range of motion, no obvious deformity SKIN: Edema at site of bee sting on right anterior wrist. No signs of hives or other complications. NEURO: Alert and oriented x 4. Limitations: no limitations Course Vital Signs 07/23/24 07/23/24 17:25 20:15 Temperature 98.2 F Pulse Rate 75 75 Respiratory 18 20 Rate Blood Pressure 171/96 139/81 O2 Sat by Pulse 98 98 Oximetry Medical Decision Making - Medical Decision Making Was pt. sent in by a medical professional or institution ([facility], COORDIN[employer] HOTELS, urgent care, hospital, or penitentiary...) When possible be specific @ -No Did you speak to anyone other than the patient for history (EMS, parent, family, police, friend...)? What history was obtained from this source @ -No Did you review nursing and triage notes (agree or disagree)? Why? @ -I reviewed and agree with nursing and triage notes Were old charts reviewed (outside hosp., previous admission, EMS record, old EKG, old radiological studies, urgent care reports/EKG's, penitentiary records)? Report findings @ -No old charts were reviewed Differential Diagnosis (chest pain, altered mental status, abdominal pain women, abdominal pain men, vaginal bleeding, weakness, fever, dyspnea, syncope, headache, dizziness, GI bleed, back pain, seizure, CVA, palpatations, mental health, musculoskeletal)? @ -Bee sting, cellulitis, allergic reaction, local pain, anaphylaxis. This list is not all inclusive. EKG interpreted by me (3pts min.). @ -As above X-rays interpreted by me (1pt min.). @ -Chest x-ray reveals no obvious acute cardiopulmonary process. CT interpreted by me (1pt min.). @ -None done U/S interpreted by me (1pt. min.). @ -None done What testing was considered but not performed or refused? (CT, X-rays, U/S, labs)? Why? @ -None What meds were considered but not given or refused? Why? @ -None Did you discuss the management of the patient with other professionals (professionals i.e. , PA, COORDINATOR HOTELS, lab, RT, psych nurse, social work administrator, color finisher, teacher, morale officer, rehabilitation case coordinator)? Give summary @ -No Was smoking cessation discussed for >3mins.? @ -No Was critical care preformed (if so, how long)? @ -No Were there social determinants of health that impacted care today? How? (Homelessness, low income, unemployed, alcoholism, drug addiction, transportation, low edu. Level, literacy, decrease access to med. care, correction, rehab)? @ -No Was there de-escalation of care discussed even if they declined (Discuss DNR or withdrawal of care, Hospice)? DNR status @ -No What co-morbidities impacted this encounter? (DM, HTN, Smoking, COPD, CAD, Cancer, CVA, ARF, Chemo, Hep., AIDS, mental health diagnosis, sleep apnea, m orbid obesity)? @ -None Was patient admitted / discharged? Hospital course, mention meds given and route, prescriptions, significant lab abnormalities, going to OR and other pertinent info. @ -Patient presents with a bee sting to the right wrist. We will obtain screening EKG and chest x-ray and patient will receive allergy cocktail consisting of IV fluids, Pepcid, Benadryl, Toradol, Solu-Medrol. She was in agreement this plan. Vital signs within acceptable limits. EKG shows no signs of acute ischemia. Chest x-ray unremarkable. On reevaluation, patient is mainly complaining of pain at the site she will be given dose of IV analgesia. No evidence of anaphylaxis. Was observed for multiple hours. She will be discharged home at this time. She was in agreement this plan. I instructed the patient to follow up with their PCP in the next 1-3 days. I explained that the patient should return to the emergency department if they experience any worsening symptoms. Strict return precautions were discussed with the patient. The patient expressed understanding of these instructions. I answered all questions that the patient had. The patient was discharged home in good condition with their prescriptions and follow up information. Undiagnosed new problem with uncertain prognosis? @ -No Drug Therapy requiring intensive monitoring for toxicity (Heparin, Nitro, Insulin, Cardizem)? @ -No Were any procedures done? @ -No Diagnosis/symptom? @ -Bee sting Acute, or Chronic, or Acute on Chronic? @ -Acute Uncomplicated (without systemic symptoms) or Complicated (systemic symptoms)? @ -Uncomplicated Side effects of treatment? @ -No Exacerbation, Progression, or Severe Exacerbation? @ -No Poses a threat to life or bodily function? How? (Chest pain, [place], [place], pneumonia, PE, COPD, DKA, ARF, appy, cholecystitis, CVA, Diverticulitis, Homicidal, Suicidal, threat to staff... and all critical care pts) @ -Unlikely - EKG Data -: EKG Interpreted by Me EKG Comments: 12-lead Electrocardiogram Interpretation Note EKG was reviewed and interpreted by myself. 12-lead ECG performed at 2009 is interpreted by me as revealing bradycardia at a rate of 49 beats per minute. [place] is normal. AL interval is 155 ms, QRS duration is 86 ms, QTc is 433 ms.. There were no ST or T wave abnormalities to suggest myocardial ischemia or injury. R wave progression across the precordium was satisfactory. By my interpretation this EKG is non-diagnostic for acute ischemia. Disposition Clinical Impression: Bee sting Disposition: HOME SELF-CARE Condition: Good Instructions (If sedation given, give patient instructions): Insect Bite or Sting (ED) Is patient prescribed a controlled substance at d/c from ED?: No Referrals: [facility] [Primary Care Provider] - 1-2 days Time of Disposition: 19:58
[2024-07-23 20:18] VITALS: BP 139/81; RESP 20
[2024-07-23] MEDS: HYDROmorphone 0.5 MG/0.5 ML SYRINGE IVP STA (20:19)
[2024-07-23] MEDS: ACET/COD 300 MG/30 MG STARTER PACK 6 TAB BTL PO STA (20:22)
== END 2024-07-23 20:37 | disposition home or self-care (01) ==
LOC: EC 17:23
CPT/HCPCS: 71046; 93005; 96361; 96374; 96375; 99284

== ENCOUNTER 2024-09-05 10:36 | Inpatient (IN) | payer OTHER ==
--- NOTE | 2024-09-05 11:19 | ED ---
General Adult HPI - General Chief complaint: Extremity Injury, Upper Stated complaint: chest pain/SOB Time Seen by Provider: 09/05/24 10:40 Source: patient, EMS, RN notes reviewed, old records reviewed Mode of arrival: EMS Limitations: no limitations - History of Present Illness Initial comments: This is a 53-year-old female with a past medical history significant for diabetes hypertension high cholesterol and bypass surgery. Patient comes in today complaining of chest pain. She states she has had right-sided chest pain since her bypass in December. Patient states that the left-sided chest pain is what brought her in today. Patient states if she walks fast it seems to get worse as does her shortness of breath. But she also states that eating makes it worse and touching it makes it worse. Patient denies any injury patient has any rash. Patient denies any fever chills or cough. Patient states movement also sometimes seems to make the pain worse. - Related Data Home Medications Medication Instructions Recorded Confirmed metFORMIN HCL [Glucophage] 1,000 mg PO BID 01/19/22 09/05/24 Metoprolol Succinate (ER) [Toprol 50 mg PO DAILY 03/01/24 09/05/24 XL] Pantoprazole [Protonix] 40 mg PO DAILY 03/01/24 09/05/24 Ferrous Sulfate [Iron (65 MG 325 mg PO BID 05/07/24 09/05/24 Elemental)] Gabapentin [Neurontin] 300 mg PO BID 05/07/24 09/05/24 Meenakshi Multivitamin Gummy 2 tab PO DAILY 05/07/24 09/05/24 Isosorbide Mononitrate ER [Imdur] 30 mg PO DAILY 05/07/24 09/05/24 Losartan [Cozaar] 25 mg PO HS 05/07/24 09/05/24 amLODIPine [Norvasc] 2.5 mg PO DAILY 05/07/24 09/05/24 hydroCHLOROthiazide 25 mg PO DAILY 05/07/24 09/05/24 Aspirin 81 mg PO DAILY 09/05/24 09/05/24 Atorvastatin [Lipitor] 80 mg PO HS 09/05/24 09/05/24 Clopidogrel [Plavix] 75 mg PO DAILY 09/05/24 09/05/24 Dulaglutide [Trulicity] 0.75 mg SQ MO 09/05/24 09/05/24 Lubiprostone [Amitiza] 24 mcg PO TID 09/05/24 09/05/24 tiZANidine [Zanaflex] 2 mg PO BID 09/05/24 09/05/24 Allergies Allergy/AdvReac Type Severity Reaction Status Date / Time peanut Allergy HIVES Verified 09/05/24 12:41 rice Allergy Rash/Hives Verified 09/05/24 12:41 seasonal Allergy Rash/Hives Uncoded 09/05/24 12:41 Review of Systems ROS Statement: Those systems with pertinent positive or pertinent negative responses have been documented in the HPI. ROS Other: All systems not noted in ROS Statement are negative. Past Medical History Past Medical History: Asthma, Coronary Artery Disease (CAD), COPD, Diabetes Mellitus, Hyperlipidemia, Hypertension, Myocardial Infarction ([place]), Musculo skeletal Disorder, Rheumatoid Arthritis ([place]), Thyroid Disorder Additional Past Medical History / Comment(s): Back Pain, right shoulder pain, Hx Pituitary Tumor, BENIGN. Thyroid disorder. 3 heart attacks-most recent March 2022, 3 stents total, neuropathy; left-sided pleural effusion Last Myocardial Infarction Date:: 10/29/22 History of Any Multi-Drug Resistant Organisms: None Reported Past Surgical History: Section, Coronary Bypass/CABG, Heart Catheterization With Stent, Tubal Ligation Additional Past Surgical History / Comment(s): Pituitary Tumor Removed. colo noscopy, PAIN CLINIC PROCEDURES stents x3 c section x4; three-vessel off-pump CABG January 04, 2024; left-sided thoracentesis with removal of 950 mL fluid on January 22, 2024 Past Anesthesia/Blood Transfusion Reactions: No Reported Reaction Date of Last Stent Placement:: March 2022 Past Psychological History: Anxiety, Depression Smoking Status: Former smoker Past Alcohol Use History: None Reported Past Drug Use History: Marijuana - Past Family History Mother History Unknown: Yes Family Medical History: Deep Vein Thrombosis (DVT) Additional Family Medical History / Comment(s): Mother is alive at age 67 with history of coronary artery disease and three-vessel CABG. Daughter(s) History Unknown: Yes Family Medical History: Deep Vein Thrombosis (DVT) Additional Family Medical History / Comment(s): Patient has a total of 9 children with no major medical problems. Father History Unknown: Yes Family Medical History: Cancer Additional Family Medical History / Comment(s): Father is alive with no history of coronary artery disease. History of Prostate Cancer Sister(s) History Unknown: Yes Additional Family Medical History / Comment(s): The patient has 4 sisters and 1 brother. One sister had a myocardial infraction at age 40. General Exam - General Exam Comments Initial Comments: GENERAL: Patient is well-developed and well-nourished. Patient is nontoxic and well- hydrated and is in mild distress. ENT: Neck is soft and supple. No significant lymphadenopathy is noted. Oropharynx is clear. Moist mucous membranes. Neck has full range of motion without eliciting any pain. EYES: The sclera were anicteric and conjunctiva were pink and moist. Extraocular movements were intact and pupils were equal round and reactive to light. Eyelids were unremarkable. PULMONARY: Unlabored respirations. Good breath sounds bilaterally. No audible rales rh onchi or wheezing was noted. CARDIOVASCULAR: There is a regular rate and rhythm without any murmurs gallops or rubs. Chest pain is reproducible with palpation ABDOMEN: Soft and nontender with normal bowel sounds. SKIN: Skin is clear with no lesions or rashes and otherwise unremarkable. NEUROLOGIC: Patient is alert and oriented x3. Cranial nerves II through XII are grossly intact. Motor and sensory are also intact. Normal speech, volume and content. Symmetrical smile. MUSCULOSKELETAL: Normal extremities with adequate strength and full range of motion. No lower extremity swelling or edema. No calf tenderness. LYMPHATICS: No significant lymphadenopathy is noted PSYCHIATRIC: Normal psychiatric evaluation. Limitations: no limitations Course Vital Signs 09/05/24 10:38 Temperature 98.5 F Pulse Rate 72 Respiratory 17 Rate Blood Pressure 148/80 O2 Sat by Pulse 99 Oximetry Medical Decision Making - Medical Decision Making EKG is interpreted by myself. EKG shows a sinus rhythm at 73 bpm. Over the 139 QRS is 101 QT interval 381 QTc is 408. Patient's EKG shows no ST segment elevation. Was pt. sent in by a medical professional or institution (, PA, HYDROCHLORIC ACID OPERATOR, urgent care, hospital, or fpc...) When possible be specific @ -No Did you speak to anyone other than the patient for history (EMS, parent, family, police, friend...)? What history was obtained from this source @ -No Did you review nursing and triage notes (agree or disagree)? Why? @ -I reviewed and agree with nursing and triage notes Were old charts reviewed (outside hosp., previous admission, EMS record, old EKG, old radiological studies, urgent care reports/EKG's, fpc records)? Report findings @ -No old charts were reviewed Differential Diagnosis? @ -Differential Chest Pain: Stable Angina, Unstable Angina, STEMI, NSTEMI Aortic Dissection, Pneumothorax, Musculoskeletal, Esophageal Spasm GERD, Cholecystitis, Pancreatitis, Zoster, this is not meant to be an all-inclusive list. EKG interpreted by me (3pts min.). @ -As above X-rays interpreted by me (1pt min.). @ -Chest x-ray shows no acute abnormality CT interpreted by me (1pt min.). @ -None done U/S interpreted by me (1pt. min.). @ -None done What testing was considered but not performed or refused? (CT, X-rays, U/S, labs)? Why? @ -None What meds were considered but not given or refused? Why? @ -None Did you discuss the management of the patient with other professionals (professionals i.e. , PA, HYDROCHLORIC ACID OPERATOR, lab, RT, psych nurse, social service assistant, corporate lawyer, teacher, security officer, pillowcase folder)? Give summary @ -I spoke with Dr. Colin and he agreed to admit the patient Was smoking cessation discussed for >3mins.? @ -No Was critical care preformed (if so, how long)? @ -No Were there social determinants of health that impacted care today? How? (Homelessness, low income, unemployed, alcoholism, drug addiction, transportation, low edu. Level, literacy, decrease access to med. care, alf, rehab)? @ -No Was there de-escalation of care discussed even if they declined (Discuss DNR or withdrawal of care, Hospice)? DNR status @ -No What co-morbidities impacted this encounter? (DM, HTN, Smoking, COPD, CAD, Cancer, CVA, ARF, Chemo, Hep., AIDS, mental health diagnosis, sleep apnea, morbid obesity)? @ -None Was patient admitted / discharged? Hospital course, mention meds given and route, prescriptions, significant lab abnormalities, going to OR and other pertinent info. @ -I went back into reevaluate the patient she had refused her Nitropaste. Patient also continued having chest pain but again she stated it was worse with movement but even at rest she was having pain Undiagnosed new problem with uncertain prognosis? @ -No Drug Therapy requiring intensive monitoring for toxicity (Heparin, Nitro, Insulin, Cardizem)? @ -No Were any procedures done? @ -No Diagnosis/symptom? @ -Default Acute, or Chronic, or Acute on Chronic? @ -Chest pain acute Uncomplicated (without systemic symptoms) or Complicated (systemic symptoms)? @ -Complicated Side effects of treatment? @ -No Exacerbation, Progression, or Severe Exacerbation? @ -No Poses a threat to life or bodily function? How? (Chest pain, [place], [place], pneumonia, PE, COPD, DKA, ARF, appy, cholecystitis, CVA, Diverticulitis, Homicidal, Suicidal, threat to staff... and all critical care pts) @ -Yes this could lead to an [place] and endorgan dysfunction - Lab Data Result diagrams: 09/05/24 11:35 09/05/24 11:35 Lab Results 09/05/24 09/05/24 09/05/24 Range/Units 11:35 11:35 11:35 WBC 7.9 (3.8-10.6) k/uL RBC 4.30 (3.80-5.40) m/uL Hgb 12.6 (11.4-16.0) gm/dL Hct 37.8 (34.0-46.0) % MCV 87.9 (80.0-100.0) fL MCH 29.4 (25.0-35.0) pg MCHC 33.4 (31.0-37.0) g/dL RDW 12.6 (11.5-15.5) % Plt Count 209 (150-450) k/uL MPV 7.4 Neutrophils % 62 % Lymphocytes % 28 % Monocytes % 5 % Eosinophils % 4 % Basophils % 0 % Neutrophils # 4.9 (1.3-7.7) k/uL Lymphocytes # 2.2 (1.0-4.8) k/uL Monocytes # 0.4 (0-1.0) k/uL Eosinophils # 0.3 (0-0.7) k/uL Basophils # 0.0 (0-0.2) k/uL Sodium 140 (137-145) mmol/L Potassium 3.5 (3.5-5.1) mmol/L Chloride 102 (98-107) mmol/L Carbon Dioxide 29 (22-30) mmol/L Anion Gap 9 mmol/L BUN 10 (7-17) mg/dL Creatinine 0.56 (0.52-1.04) mg/dL Est GFR (CKD-EPI)AfAm >90 (>60 ml/min/1.73 sqM) Est GFR (CKD-EPI)NonAf >90 (>60 ml/min/1.73 sqM) Glucose 175 H (74-99) mg/dL Calcium 9.8 (8.4-10.2) mg/dL Magnesium 1.7 (1.6-2.3) mg/dL Total Bilirubin 0.5 (0.2-1.3) mg/dL AST 22 (14-36) U/L ALT 20 (4-34) U/L Alkaline Phosphatase 152 H (38-126) U/L Troponin I <0.012 (0.000-0.034) ng/mL Total Protein 7.2 (6.3-8.2) g/dL Albumin 4.3 (3.5-5.0) g/dL Lipase 196 (23-300) U/L Disposition Clinical Impression: Chest pain Disposition: ADMITTED IP TO THIS HOSP Referrals: [facility] [Primary Care Provider] - 1-2 days Time of Disposition: 14:03
[2024-09-05 11:50] LABS: Basophils % (A) 0 %; Eosinophils # (A) 0.3 k/uL (0-0.7); Eosinophils % (A) 4 %; HCT 37.8 % (34.0-46.0); HGB 12.6 gm/dL (11.4-16.0); Lymphocytes # (A) 2.2 k/uL (1.0-4.8); Lymphocytes % (A) 28 %; MCH 29.4 pg (25.0-35.0); MCHC 33.4 g/dL (31.0-37.0); MCV 87.9 fL (80.0-100.0); Mean Platelet Volume 7.4; Monocytes # (A) 0.4 k/uL (0-1.0); Monocytes % (A) 5 %; Neutrophils # (A) 4.9 k/uL (1.3-7.7); Neutrophils % (A) 62 %; Platelet Count 209 k/uL (150-450); RDW 12.6 % (11.5-15.5); WBC 7.9 k/uL (3.8-10.6)
[2024-09-05 12:05] LABS: ALT 20 U/L (4-34); AST 22 U/L (14-36); African American GFR (CKD) >90 (>60 ml/min/1.73 sqM); Albumin 4.3 g/dL (3.5-5.0); Alkaline Phosphatase 152 U/L (38-126); Anion Gap 9 mmol/L; Blood Urea Nitrogen 10 mg/dL (7-17); Calcium 9.8 mg/dL (8.4-10.2); Carbon Dioxide 29 mmol/L (22-30); Chloride 102 mmol/L (98-107); Glucose 175 mg/dL (74-99); Lipase 196 U/L (23-300); Magnesium 1.7 mg/dL (1.6-2.3); Non-African American GFR(CKD) >90 (>60 ml/min/1.73 sqM); Potassium 3.5 mmol/L (3.5-5.1); Sodium 140 mmol/L (137-145); Total Bilirubin 0.5 mg/dL (0.2-1.3); Total Protein 7.2 g/dL (6.3-8.2)
[2024-09-05] MEDS: ASPIRIN 81 MG PO STA (12:11)
[2024-09-05] MEDS: NITROGLYCERIN OINT 1 INCH/GM PACKET TOPICAL STA (12:34)
--- NOTE | 2024-09-05 12:53 | XR ---
EXAMINATION TYPE: XR chest 2V DATE OF EXAM: 09/05/2024 12:46 PM COMPARISON: 08-14 CLINICAL INDICATION: Female, 53 years old with history of Chest Pain, TECHNIQUE: XR chest 2V view(s) obtained. FINDINGS: The heart size is normal. The pulmonary vasculature is normal. Minimal platelike atelectasis at the left base. This was present previously Sternotomy wires are pres ent from prior CABG. IMPRESSION: 1. Minimal plate atelectasis or scarring left lung base. [facility], , 09/05/2024 12:50 PM
[2024-09-05] MEDS: NITROGLYCERIN SL TABS 0.4 MG TAB SUBLINGUAL PRN (14:25)
--- NOTE | 2024-09-05 15:09 | P.HPIM ---
History of Present Illness H&P Date: 09/05/24 HPI: This is a 53-year-old female with history of CAD status post CABG in December 2023, type 2 diabetes, cervical radiculopathy, GERD, rheumatoid arthritis and COPD presents the ER with progressively worsening chest pain associated with shortness of breath started this morning. Patient describes the pain as sharp and heavy and it mainly on the right side shooting across to the left side as well as in the midsternal area radiating down into the epigastric area. Her pain is exacerbated with deep breaths, and after eating heavy meals. It is alleviated with nitrate and with rest. Patient has been endorsing sharp intermittent centrally located chest pain sometime radiating across her chest since she got her CABG procedure. Today, patient was trying to catch the bus to go to dental office when she started to experience worsening chest pain associated with short of breath. She felt very winded and lethargic and had to struggle to get onto the bus. At the dental office, her blood pressure was in 160s over 90s and also started to experience some paresthesia in her right arm which prompted her to come to the ER for further assessment. Patient denies recent fall or trauma to the chest. Patient denies any recent travel history, recent upper respiratory tract infection, use of illicit drug. Patient is currently on dual antiplatelet therapy with aspirin and Plavix. Patient denies orthopnea, PND and swelling of legs. Of note, patient has a history of multilevel degenerative disc disease and has been experiencing paresthesia chronically in her right arm which she said has gotten worse in the last 3 weeks. He has been taking [id number] medicat ion as well as she is on gabapentin which provides her minimal relief. At the time of interview, patient is still complaining of chest pain as well as tingling in her right arm. However she is not complaining of any shortness of breath, dizziness, nausea, vomiting, abdominal discomfort. Labs and images: Lab evaluation in the ER shows troponin I less than 0.012, lipase 196, WBC of 7.9, hemoglobin 12.6, MCV 87.9, platelet count 209, sodium 140, potassium 3.5, bicarb 29, BUN 10, creatinine 0.56, glucose 175, magnesium 1.7, AST 22, ALT 20, alkaline phosphatase 142 Chest x-ray interpreted independently shows no acute cardiopulmonary process. EKG shows normal sinus rhythm with a rate of 73 bpm, no QTc prolongation. Flat T waves appreciated in lead aVL and V2. Poor R wave progression noted. Vitals: Tmax 98.5 F, heart rate 72, respirate 17, blood pressure 148/80, oxygen saturation 99% on room air Review of systems: Pertinent positives and negatives as discussed in HPI, a complete review of systems was performed and all other systems are negative. Social history: Tobacco: Former smoker, quit 15 years ago, Alcohol: Social Recreational drugs: None Travel: None Physical examination: Vital signs reviewed General: non toxic, no distress, appears at stated age, normal weight Derm: no unusual rashes/lesions, warm Head: atraumatic, normocephalic, symmetric Eyes: EOMI, no lid lag, anicteric sclera, pupils equal round reactive to light ENT: Nose and ears atraumatic Neck: No cervical lymphadenopathy, trachea midline, supple Mouth: no lip lesion, mucus membranes moist Cardiovascular: Tenderness to palpation noted on the midsternal area, left and right chest wall. S1S2 reg, no murmur, positive dorsalis pedis pulse bilateral, no edema Lungs: CTA bilateral, no rhonchi, no rales, no accessory muscle use Abdominal: soft, nontender to palpation, no guarding Ext: muscle strength 4/5 in RUE, 5 out of 5 in all 3 extremities grossly, no gross muscle atrophy, no contractures, Neuro: CN II-XI grossly intact, no gross focal neuro deficits Psych: Alert, oriented, appropriate affect Assessment/Plan: This is a 53-year-old female with history of CAD status post CABG in December 2023, type 2 diabetes, cervical radiculopathy, GERD, rheumatoid arthritis and COPD presents the ER with progressively worsening chest pain associated with annia rtness of breath started this morning. ED documentation reviewed and case discussed with ED provider. Patient admitted to internal medicine service for chest pain to rule out ACS. #Chest pain, rule out ACS Other differential diagnosis: Musculoskeletal, pericarditis, myocarditis, GERD #History of CAD status post CABG Chest x-ray interpreted independently shows no acute cardiopulmonary process. EKG shows normal sinus rhythm with a rate of 73 bpm, no QTc prolongation. Flat T waves appreciated in lead aVL and V2. Poor R wave progression noted. Resume aspirin 81 mg p.o. daily and Plavix 75 mg p.o. daily Continue to trend troponin Continue cardiac monitoring Order lipid panel Consult cardiology Heart healthy diet Resume Imdur 30 mg p.o. daily Resume Protonix 40 mg p.o. daily #Right upper extremity paresthesia Cervical spine CT on 06/26/2024 shows C3-C4 central disc protrusion with moderate spinal stenosis PT/OT Continue with outpatient rehab Resume gabapentin 300 mg p.o. twice daily Resume tizanidine 2 mg p.o. twice daily Pain control with Tylenol 650 mg p.o. every 6 hours as needed Chronic conditions: Hypertension: Resume amlodipine 2.5 mg p.o. daily, hydrochlorothiazide 25 mg p.o. daily, losartan 25 mg p.o. at bedtime GERD/acid reflux: Resume Protonix 40 mg p.o. daily F: P.o. E: Replete as needed N: Heart healthy diet A: Ambulatory without assist DVT prophylaxis: Heparin subcu GI prophylaxis: Protonix 40 mg p.o. daily The patient is admitted with an anticipated less than 2 midnight stay for ev aluation of chest pain, rule out ACS CODE STATUS: Full code Discussed with: Patient Anticipated discharge place: Home I saw and evaluated the patient during the smith and critical portions of this encounter, and discussed the case in detail with the resident author of this note, I agree with the Assessment and Plan, and my changes, if any, are highlighted in blue. Past Medical History Past Medical History: Asthma, Coronary Artery Disease (CAD), COPD, Diabetes Mellitus, Hyperlipidemia, Hypertension, Myocardial Infarction ([place]), Musculoskeletal Disorder, Rheumatoid Arthritis (RA), Thyroid Disorder Additional Past Medical History / Comment(s): Back Pain, right shoulder pain, Hx Pituitary Tumor, BENIGN. Thyroid disorder. 3 heart attacks-most recent March 2022, 3 stents total, neuropathy; left-sided pleural effusion Last Myocardial Infarction Date:: 10/29/22 History of Any Multi-Drug Resistant Organisms: None Reported Past Surgical History: Section, Coronary Bypass/CABG, Heart Catheterization With Stent, Tubal Ligation Additional Past Surgical History / Comment(s): Pituitary Tumor Removed. colonoscopy, PAIN CLINIC PROCEDURES stents x3 c section x4; three-vessel off- pump CABG January 04, 2024; left-sided thoracentesis with removal of 950 mL fluid on January 22, 2024 Past Anesthesia/Blood Transfusion Reactions: No Reported Reaction Date of Last Stent Placement:: March 2022 Past Psychological History: Anxiety, Depression Smoking Status: Former smoker Past Alcohol Use History: None Reported Past Drug Use History: Marijuana - Past Family History Mother History Unknown: Yes Family Medical History: Deep Vein Thrombosis (DVT) Additional Family Medical History / Comment(s): Mother is alive at age 67 with history of coronary artery disease and three-vessel CABG. Daughter(s) History Unknown: Yes Family Medical History: Deep Vein Thrombosis (DVT) Additional Family Medical History / Comment(s): Patient has a total of 9 children with no major medical problems. Father History Unknown: Yes Family Medical History: Cancer Additional Family Medical History / Comment(s): Father is alive with no history of coronary artery disease. History of Prostate Cancer Sister(s) History Unknown: Yes Additional Family Medical History / Comment(s): The patient has 4 sisters and 1 brother. One sister had a myocardial infraction at age 40. Medications and Allergies Home Medications Medication Instructions Recorded Confirmed Type metFORMIN HCL [Glucophage] 1,000 mg PO BID 01/19/22 09/05/24 History Metoprolol Succinate (ER) [Toprol 50 mg PO DAILY 03/01/24 09/05/24 History XL] Pantoprazole [Protonix] 40 mg PO DAILY 03/01/24 09/05/24 History Ferrous Sulfate [Iron (65 MG 325 mg PO BID 05/07/24 09/05/24 History Elemental)] Gabapentin [Neurontin] 300 mg PO BID 05/07/24 09/05/24 History Meenakshi Multivitamin Gummy 2 tab PO DAILY 05/07/24 09/05/24 History Isosorbide Mononitrate ER [Imdur] 30 mg PO DAILY 05/07/24 09/05/24 History Losartan [Cozaar] 25 mg PO HS 05/07/24 09/05/24 History amLODIPine [Norvasc] 2.5 mg PO DAILY 05/07/24 09/05/24 History hydroCHLOROthiazide 25 mg PO DAILY 05/07/24 09/05/24 History Aspirin 81 mg PO DAILY 09/05/24 09/05/24 History Atorvastatin [Lipitor] 80 mg PO HS 09/05/24 09/05/24 History Clopidogrel [Plavix] 75 mg PO DAILY 09/05/24 09/05/24 History Dulaglutide [Trulicity] 0.75 mg SQ MO 09/05/24 09/05/24 History Lubiprostone [Amitiza] 24 mcg PO TID 09/05/24 09/05/24 History tiZANidine [Zanaflex] 2 mg PO BID 09/05/24 09/05/24 History Allergies Allergy/AdvReac Type Severity Reaction Status Date / Time peanut Allergy HIVES Verified 09/05/24 12:41 rice Allergy Rash/Hives Verified 09/05/24 12:41 seasonal Allergy Rash/Hives Uncoded 09/05/24 12:41 Physical Exam Osteopathic Statement: *. No significant issues noted on an osteopathic structural exam other than those noted in the History and Physical/Consult. Vitals: Vital Signs Temp Pulse Resp BP Pulse Ox 09/05/24 10:38 98.5 F 72 17 148/80 99 Intake and Output 09/05/24 09/05/24 09/05/24 06:59 14:59 22:59 Other: Weight 83.007 kg Results CBC & Chem 7: 09/05/24 11:35 09/05/24 11:35 Labs: Abnormal Lab Results - Last 24 Hours (Table) 09/05/24 Range/Units 11:35 Glucose 175 H (74-99) mg/dL Alkaline Phosphatase 152 H (38-126) U/L
[2024-09-05] MEDS ORDERED: DEXTROSE 50% SYRINGE 50 ML IVP PRN ×2 (15:12)
[2024-09-05] MEDS: hydroCHLOROthiazide 25 MG TAB PO SCH (15:42)
[2024-09-05] MEDS: CLOPIDOGREL 75 MG TAB PO SCH (15:42)
[2024-09-05] MEDS: METOPROLOL SUCCINATE (ER) 50 MG TAB.ER.24H PO SCH (15:42)
[2024-09-05] MEDS: ACETAMINOPHEN TAB 325 MG TAB PO PRN (15:42)
[2024-09-05] MEDS: PANTOPRAZOLE 40 MG TABLET PO SCH (15:42)
[2024-09-05] MEDS: amLODIPine 2.5 MG TAB PO SCH (15:42)
[2024-09-05] MEDS: NON FORMULARY DRUG (Lubiprostone [Amitiza] 24 MCG Capsule) PO SCH (16:17)
[2024-09-05] MEDS: ASPIRIN 81 MG PO SCH (16:18)
[2024-09-05] MEDS: ISOSORBIDE MONONITRATE ER 30 MG TAB.ER.24H PO SCH ×2 (16:18→18:10)
[2024-09-05 17:57] LABS: Glucose,Whole Blood 222 mg/dL (70-110)
[2024-09-05] MEDS ORDERED: NITROGLYCERIN OINT 1 INCH/GM PACKET TOPICAL SCH (18:00)
[2024-09-05] MEDS: INSULIN ASPART (NovoLOG) 100 UNIT/ML VIAL SQ SCH (18:10)
[2024-09-05 19:34] LABS: Glucose,Whole Blood 243 mg/dL (70-110)
[2024-09-05] MEDS: tiZANidine 4 MG TAB PO SCH (20:26)
[2024-09-05] MEDS: FERROUS SULFATE 325 MG TAB PO SCH (20:27)
[2024-09-05] MEDS: ATORVASTATIN 80 MG TAB PO SCH (20:27)
[2024-09-05] MEDS: LOSARTAN 25 MG TAB PO SCH (20:27)
[2024-09-05] MEDS: GABAPENTIN 300 MG CAP PO SCH (20:27)
[2024-09-05 20:48] LABS: Partial Thromboplastin Time 23.6 sec (22.0-30.0); Prothrombin Time 10.5 sec (10.0-12.5)
[2024-09-06 06:03] LABS: Glucose,Whole Blood 158 mg/dL (70-110)
[2024-09-06] MEDS ORDERED: ASPIRIN 325 MG TAB PO SCH (09:00)
[2024-09-06 09:48] LABS: Chol/HDL Ratio 3.35 Ratio
[2024-09-06] MEDS: ASPIRIN 81 MG PO SCH (10:48)
[2024-09-06 12:03] LABS: Glucose,Whole Blood 138 mg/dL (70-110)
--- NOTE | 2024-09-06 14:04 | P.PN ---
Subjective Progress Note Date: 09/06/24 Subjective: Patient seen and examined at the bedside. Patient continues to have mild chest pain and tingling in the right upper extremity. Denies nausea, vomiting and shortness of breath. All Systems reviewed and pertinent positives and negatives noted in HPI, all other symptoms are negative Objective: Vital signs reviewed. General: non toxic, no distress, appears at stated age, normal weight Derm: no unusual rashes/lesions, warm Head: atraumatic, normocephalic, symmetric Eyes: EOMI, no lid lag, anicteric sclera, pupils equal round reactive to light ENT: Nose and ears atraumatic Neck: No cervical lymphadenopathy, trachea midline, supple Mouth: no lip lesion, mucus membranes moist Cardiovascular: Tenderness to palpation noted on the midsternal area, left and right chest wall. S1S2 reg, no murmur, positive dorsalis pedis pulse bilateral, no edema Lungs: CTA bilateral, no rhonchi, no rales, no accessory muscle use Abdominal: soft, nontender to palpation, no guarding Ext: muscle strength 4/5 in RUE, 5 out of 5 in all 3 extremities grossly, no gross muscle atrophy, no contractures, Neuro: CN II-XI grossly intact, no gross focal neuro deficits Psych: Alert, oriented, appropriate affect Data reviewed today: Labs: Triglyceride 100, cholesterol 161, LDL 93, HDL 48, HbA1c 9.7 Images: No new imaging Assessment and Plan: This is a 53-year-old female with history of CAD status post CABG in December 2023, type 2 diabetes, cervical radiculopathy, GERD, rheumatoid arthritis and COPD presents the ER with progressively worsening chest pain associated with shortness of breath started this morning. ED documentation reviewed and case discussed with ED provider. Patient admitted to internal medicine service for chest pain to rule out ACS. # Atypical chest pain, rule out ACS Other differential diagnosis: Musculoskeletal, pericarditis, myocarditis, GERD #History of CAD status post CABG Chest x-ray interpreted independently shows no acute cardiopulmonary process. EKG shows normal sinus rhythm with a rate of 73 bpm, no QTc prolongation. Flat T waves appreciated in lead aVL and V2. Poor R wave progression noted. Resume aspirin 81 mg p.o. daily and Plavix 75 mg p.o. daily Troponin trend: Negative Continue cardiac monitoring Lipid panel: Triglyceride 100, cholesterol 161, LDL 93, HDL 48, Consult cardiology Heart healthy diet Resume Imdur 30 mg p.o. daily Resume Protonix 40 mg p.o. daily #Right upper extremity paresthesia Cervical spine CT on 06/26/2024 shows C3-C4 central disc protrusion with moderate spinal stenosis Consult orthopedic spine surgery Continue with outpatient rehab Resume gabapentin 300 mg p.o. twice daily Resume tizanidine 2 mg p.o. twice daily Pain control with Tylenol 650 mg p.o. every 6 hours as needed #Hyperglycemia uncontrolled Serum glucose level 138 HbA1c 9.7 Accu-Cheks and sliding scale insulin Continue monitor serum glucose level Chronic conditions: Hypertension: Resume amlodipine 2.5 mg p.o. daily, hydrochlorothiazide 25 mg p.o. daily, losartan 25 mg p.o. at bedtime GERD/acid reflux: Resume Protonix 40 mg p.o. daily Monitor CBC and BMP F: P.o. E: Replete as needed N: Heart healthy diet A: Ambulatory without assist DVT prophylaxis: Heparin subcu GI prophylaxis: Protonix 40 mg p.o. daily CODE STATUS: Full code Discussed with: Patient Anticipated discharge place: Home I saw and evaluated the patient during the smith and critical portions of this encounter, and discussed the case in detail with the resident author of this note, I agree with the Assessment and Plan, and my changes, if any, are highlighted in blue. Objective - Vital Signs Vital signs: Vital Signs Temp 98.1 F 09/06/24 07:24 Pulse 73 09/06/24 07:24 Resp 16 09/06/24 07:24 BP 155/86 09/06/24 07:24 Pulse Ox 100 09/06/24 07:24 FiO2 Intake & Output 09/05/24 09/06/24 09/06/24 18:59 06:59 18:59 Intake Total 360 0 Balance 360 0 Weight 83.007 kg Intake: Oral 360 0 Other: # Voids 3 - Labs CBC & Chem 7: 09/05/24 11:35 09/05/24 11:35 Labs: Abnormal Lab Results - Last 24 Hours (Table) 09/05/24 09/05/24 09/06/24 Range/Units 17:55 19:33 03:49 POC Glucose (mg/dL) 222 H 243 H (70-110) mg/dL Hemoglobin A1c 9.7 H (<=6.0) % 09/06/24 09/06/24 Range/Units 06:02 12:02 POC Glucose (mg/dL) 158 H 138 H (70-110) mg/dL Hemoglobin A1c (<=6.0) %
--- NOTE | 2024-09-06 14:05 | P.CRDCN ---
History of Present Illness Consult date: 09/06/24 Requesting physician: Haroon Colin Reason for Consult (text): chest pain Chief complaint: chest pain History of present illness: This is a 53-year-old female patient who follows in the office with Dr. Ojeda. She has a history of CAD status post CABG in December 2023, type 2 diabetes, cervical radiculopathy, GERD, rheumatoid arthritis and COPD. Presented to the emergency department with complaints of mostly right sided chest discomfort worse with palp patient, deep inspiration and certain movements. She has been unable to lift or do much exercising over the last several months. He has been having this discomfort since her surgery. She also has significant cervical spine issues with radiculopathy affecting the right arm. Upon examination the patient is resting in bed. She complains of significant right sided and sternal chest discomfort with light palpation. She has difficulty breathing due to the pain. She is somewhat tearful during my exam. EKG on admission showed sinus mechanism with possible prior [place] but no evidence of acute ischemia. Findings of a negative x 3. Lobe and A1c 9.7. LDL 93. Pressure is elevated. Currently on losartan 25 mg p.o. nightly, Lipitor 80 mg p.o. nightly, metformin 1000 mg p.o. twice daily, hydrochlorothiazide 25 mg p.o. daily, amlodipine 2.5 mg p.o. daily, metoprolol succinate 50 mg p.o. daily, isosorbide 30 mg p.o. daily, and, as pirin, Plavix and Trulicity. Past Medical History Past Medical History: Asthma, Coronary Artery Disease (CAD), COPD, Diabetes Mellitus, Hyperlipidemia, Hypertension, Myocardial Infarction ([place]), Musculoskeletal Disorder, Rheumatoid Arthritis ([place]), Thyroid Disorder Additional Past Medical History / Comment(s): Back Pain, right shoulder pain, Hx Pituitary Tumor, BENIGN. Thyroid disorder. 3 heart attacks-most recent March 2022, 3 stents total, neuropathy; left-sided pleural effusion Last Myocardial Infarction Date:: 10/29/22 History of Any Multi-Drug Resistant Organisms: None Reported Past Surgical History: Section, Coronary Bypass/CABG, Heart Cat heterization With Stent, Tubal Ligation Additional Past Surgical History / Comment(s): Pituitary Tumor Removed. colonoscopy, PAIN CLINIC PROCEDURES stents x3 c section x4; three-vessel off- pump CABG January 04, 2024; left-sided thoracentesis with removal of 950 mL fluid on January 22, 2024 Past Anesthesia/Blood Transfusion Reactions: No Reported Reaction Date of Last Stent Placement:: March 2022 Past Psychological History: Anxiety, Depression Smoking Status: Former smoker Past Alcohol Use History: None Reported Past Drug Use History: Marijuana - Past Family History Mother History Unknown: Yes Family Medical History: Deep Vein Thrombosis (DVT) Additional Family Medical History / Comment(s): Mother is alive at age 67 with history of coronary artery disease and three-vessel CABG. Daughter(s) History Unknown: Yes Family Medical History: Deep Vein Thrombosis (DVT) Additional Family Medical History / Comment(s): Patient has a total of 9 children with no major medical problems. Father History Unknown: Yes Family Medical History: Cancer Additional Family Medical History / Comment(s): Father is alive with no history of coronary artery disease. History of Prostate Cancer Sister(s) History Unknown: Yes Additional Family Medical History / Comment(s): The patient has 4 sisters and 1 brother. One sister had a myocardial infraction at age 40. Medications and Allergies Home Medications Medication Instructions Recorded Confirmed Type metFORMIN HCL [Glucophage] 1,000 mg PO BID 01/19/22 09/05/24 History Metoprolol Succinate (ER) [Toprol 50 mg PO DAILY 03/01/24 09/05/24 History XL] Pantoprazole [Protonix] 40 mg PO DAILY 03/01/24 09/05/24 History Ferrous Sulfate [Iron (65 MG 325 mg PO BID 05/07/24 09/05/24 History Elemental)] Gabapentin [Neurontin] 300 mg PO BID 05/07/24 09/05/24 History Meenakshi Multivitamin Gummy 2 tab PO DAILY 05/07/24 09/05/24 History Isosorbide Mononitrate ER [Imdur] 30 mg PO DAILY 05/07/24 09/05/24 History Losartan [Cozaar] 25 mg PO HS 05/07/24 09/05/24 History amLODIPine [Norvasc] 2.5 mg PO DAILY 05/07/24 09/05/24 History hydroCHLOROthiazide 25 mg PO DAILY 05/07/24 09/05/24 History Aspirin 81 mg PO DAILY 09/05/24 09/05/24 History Atorvastatin [Lipitor] 80 mg PO HS 09/05/24 09/05/24 History Clopidogrel [Plavix] 75 mg PO DAILY 09/05/24 09/05/24 History Dulaglutide [Trulicity] 0.75 mg SQ MO 09/05/24 09/05/24 History Lubiprostone [Amitiza] 24 mcg PO TID 09/05/24 09/05/24 History tiZANidine [Zanaflex] 2 mg PO BID 09/05/24 09/05/24 History Allergies Allergy/AdvReac Type Severity Reaction Status Date / Time peanut Allergy HIVES Verified 09/05/24 12:41 rice Allergy Rash/Hives Verified 09/05/24 12:41 seasonal Allergy Rash/Hives Uncoded 09/05/24 12:41 Physical Exam Vitals: Vital Signs Temp Pulse Pulse Resp BP BP BP 09/06/24 07:24 98.1 F 73 16 155/86 09/06/24 02:00 98.2 F 64 16 131/84 09/05/24 20:00 98.0 F 84 18 159/84 09/05/24 18:39 80 154/84 09/05/24 18:00 97.8 F 87 16 186/91 176/96 09/05/24 17:34 72 17 130/87 Pulse Ox 09/06/24 07:24 100 09/06/24 02:00 93 L 09/05/24 20:00 100 09/05/24 18:39 09/05/24 18:00 100 09/05/24 17:34 98 Intake and Output 09/05/24 09/06/24 09/06/24 22:59 06:59 14:59 Intake Total 360 0 Balance 360 0 Intake: Oral 360 0 Other: # Voids 1 3 PHYSICAL EXAMINATION: This is a 53-year-old female who is tearful at the time of my examination. VITAL SIGNS: Reviewed HEENT: Head is atraumatic, normocephalic. Pupils are equal, round. Sclerae anicteric. Conjunctivae are clear. Mucous membranes of the mouth are moist. Neck is supple. There is no elevated jugular venous pressure. No carotid bruit is heard. CHEST EXAMINATION: Clear to auscultation bilaterally. No wheezes rales or rhonchi. Respirations even and nonlabored. Tenderness to light palpation HEART EXAMINATION: Heart regular, positive S1 and S2. No S3. No S4. No clicks, rubs or murmurs. ABDOMEN: Soft, nontender. Bowel sounds are heard. No organomegaly noted. EXTREMITIES: 2+ peripheral pulses with no evidence of peripheral edema and no calf tenderness noted. NEUROLOGIC EXAMINATION: Patient is awake, alert and oriented x3. Results 09/05/24 11:35 09/05/24 11:35 Cardiac Enzymes 09/05/24 09/05/24 Range/Units 15:14 18:19 Troponin I <0.012 <0.012 (0.000-0.034) ng/mL Coagulation 09/05/24 Range/Units 20:08 PT 10.5 (10.0-12.5) sec APTT 23.6 (22.0-30.0) sec Lipids 09/06/24 Range/Units 03:49 Triglycerides 100.00 (0.00-149.00) mg/dL Cholesterol 161.00 (0.00-200.00) mg/dL HDL Cholesterol 48.00 (40.00-60.00) mg/dL Cholesterol/HDL Ratio 3.35 Ratio Current Medications Generic Name Dose Route Start Last Admin Trade Name Freq PRN Reason Stop Dose Admin Acetaminophen 650 mg 09/05/24 14:35 09/05/24 15:42 Acetaminophen Tab 325 Mg Tab PO 650 mg Q6HR PRN Administration Fever and/ or Pain Amlodipine Besylate 2.5 mg 09/05/24 15:00 09/06/24 10:48 Amlodipine 2.5 Mg Tab PO 2.5 mg DAILY TIERA Administration Aspirin 81 mg 09/06/24 09:00 09/06/24 10:48 Aspirin 81 Mg PO 81 mg DAILY TIERA Administration Atorvastatin Calcium 80 mg 09/05/24 21:00 09/05/24 20:27 Atorvastatin 80 Mg Tab PO 80 mg HS TIERA Administration Clopidogrel Bisulfate 75 mg 09/05/24 15:00 09/06/24 10:48 Clopidogrel 75 Mg Tab PO 75 mg DAILY TIERA Administration Dextrose/Water 25 ml 09/05/24 15:12 Dextrose 50% Syringe 50 Ml IVP PER PROTOCOL PRN Hypoglycemia Protocol Dextrose/Water 50 ml 09/05/24 15:12 Dextrose 50% Syringe 50 Ml IVP PER PROTOCOL PRN Hypoglycemia Protocol Ferrous Sulfate 325 mg 09/05/24 21:00 09/06/24 10:48 Ferrous Sulfate 325 Mg Tab PO 325 mg BID TIERA Administration Gabapentin 300 mg 09/05/24 21:00 09/06/24 10:47 Gabapentin 300 Mg Cap PO 300 mg BID TIERA Administration Hydrochlorothiazide 25 mg 09/05/24 15:00 09/06/24 10:48 Hydrochlorothiazide 25 Mg Tab PO 25 mg DAILY TIERA Administration Insulin Aspart 0 unit 09/05/24 17:30 09/06/24 06:09 Insulin Aspart (Novolog) 100 Unit/Ml Vial SQ Not Given ACHS [facility] Protocol Isosorbide Mononitrate 30 mg 09/05/24 18:00 09/06/24 10:48 Isosorbide Mononitrate Er 30 Mg Tab.Er.24h PO 30 mg DAILY TIERA Administration Losartan Potassium 25 mg 09/05/24 21:00 09/05/24 20:27 Losartan 25 Mg Tab PO 25 mg HS TIERA Administration Metoprolol Succinate 50 mg 09/05/24 15:00 09/06/24 10:48 Metoprolol Succinate (Er) 50 Mg Tab.Er.24h PO 50 mg DAILY TIERA Administration Nitroglycerin 0.4 mg 09/05/24 14:04 09/05/24 14:25 Nitroglycerin Sl Tabs 0.4 Mg Tab SUBLINGUAL 0.4 mg Q5M PRN Administration Chest Pain Non-Formulary Medication 24 mcg 09/05/24 16:00 09/06/24 10:51 Lubiprostone [Amitiza] PO Not Given TID TIERA Pantoprazole Sodium 40 mg 09/05/24 15:00 09/06/24 06:10 Pantoprazole 40 Mg Tablet PO 40 mg [id number] TIERA Administration Tizanidine HCl 2 mg 09/05/24 21:00 09/06/24 10:52 Tizanidine 4 Mg Tab PO Not Given BID TIERA Intake and Output 09/05/24 09/06/24 09/06/24 22:59 06:59 14:59 Intake Total 360 0 Balance 360 0 Intake: Oral 360 0 Other: # Voids 1 3 09/05/24 11:35 09/05/24 11:35 Assessment and Plan Assessment: #1 chest pain, appears to be musculoskeletal related to prior CABG incision #2 CAD with prior CABG #3 hypertension, uncontrolled #4 hyperlipidemia, suboptimally controlled #5 type 2 diabetes, uncontrolled Plan: From cardiology's perspective we will add ezetimibe. We will increase amlodipine. We will add Farxiga as patient was recommended to start Jardiance in the office when she was seen in April. The pain does not appear to be cardiac in nature and troponins have been negative x 3 with no ischemic changes noted on EKG. patient is cleared from discharge from our perspective. She will follow-up in the office with Dr. Ojeda. REPAIRER SCREEN CRUSHER note has been reviewed, I agree with a documented findings and plan of care. Patient was seen and examined.
--- NOTE | 2024-09-06 14:08 | P.CNOR ---
History of Present Illness - [facility] Consult date: 09/06/24 Consult reason: neck pain History of present illness: Patient is a 53-year-old female who presented to [facility] on 09/05/2024 for evaluation of chest pain. Patient is a known cardiac patient at this hospital, she underwent a three-vessel bypass surgery in December 2023. Patient is continue to follow-up with that specialty regarding this. Patient is being evaluated by internal medicine and cardiology. Patient is also dealt with significant right upper extremity paresthesias, neck pain and weakness, CT scan was done at a previous visit. Our orthopedic team was consulted for this problem. Patient was examined today at bedside, she is resting comfortably in her hospital bed, she is very pleasant on exam. Patient states that she has had on and off neck pain for many years. She has received previous epidural injections in the cervical spine with minimal relief. Patient has never had orthopedic surgery to her cervical, thoracic or lumbar spine. Patient states constant paresthesias to the entire upper extremity. She note obvious weakness to the right upper extremity. She has difficult times with fine motor movements and often drops things. She has no left upper extremity symptoms. Patient denies any bilateral lower extremity symptoms. She denies any numbness or tingling to the left lower extremity, bilaterallower extremities. She denies any loss of bowel or bladder function. Patient has been taking gabapentin for quite some time along with tizanidine. Currently has no headaches, lightheadedness, shortness of breath. Review of Systems Constitutional: Reports as per [facility] Past Medical History Past Medical History: Asthma, Coronary Artery Disease (CAD), COPD, Diabetes Mellitus, Hyperlipidemia, Hypertension, Myocardial Infarction (DE), Musculoskeletal Disorder, Rheumatoid Arthritis (RA), Thyroid Disorder Additional Past Medical History / Comment(s): Back Pain, right shoulder pain, Hx Pituitary Tumor, BENIGN. Thyroid disorder. 3 heart attacks-most recent March 2022, 3 stents total, neuropathy; left-sided pleural effusion Last Myocardial Infarction Date:: 10/29/22 History of Any Multi-Drug Resistant Organisms: None Reported Past Surgical History: Section, Coronary Bypass/CABG, Heart Catheterization With Stent, Tubal Ligation Additional Past Surgical History / Comment(s): Pituitary Tumor Removed. colonoscopy, [facility] PROC[facility]URES stents x3 c section x4; three-vessel off- pump CABG January 04, 2024; left-sided thoracentesis with removal of 950 mL fluid on January 22, 2024 Past Anesthesia/Blood Transfusion Reactions: No Reported Reaction Date of Last Stent Placement:: March 2022 Past Psychological History: Anxiety, Depression Smoking Status: Former smoker Past Alcohol Use History: None Reported Past Drug Use History: Marijuana - Past Family History Mother History Unknown: Yes Family Medical History: Deep Vein Thrombosis (DVT) Additional Family Medical History / Comment(s): Mother is alive at age 67 with history of coronary artery disease and three-vessel CABG. Daughter(s) History Unknown: Yes Family Medical History: Deep Vein Thrombosis (DVT) Additional Family Medical History / Comment(s): Patient has a total of 9 children with no major medical problems. Father History Unknown: Yes Family Medical History: Cancer Additional Family Medical History / Comment(s): Father is alive with no history of coronary artery disease. History of Prostate Cancer Sister(s) History Unknown: Yes Additional Family Medical History / Comment(s): The patient has 4 sisters and 1 brother. One sister had a myocardial infraction at age 40. Medications and Allergies Home Medications Medication Instructions Recorded Confirmed Type metFORMIN HCL [Glucophage] 1,000 mg PO BID 01/19/22 09/05/24 History Metoprolol Succinate (ER) [Toprol 50 mg PO DAILY 03/01/24 09/05/24 History XL] Pantoprazole [Protonix] 40 mg PO DAILY 03/01/24 09/05/24 History Ferrous Sulfate [Iron (65 MG 325 mg PO BID 05/07/24 09/05/24 History Elemental)] Gabapentin [Neurontin] 300 mg PO BID 05/07/24 09/05/24 History Meenakshi Multivitamin Gummy 2 tab PO DAILY 05/07/24 09/05/24 History Isosorbide Mononitrate ER [Imdur] 30 mg PO DAILY 05/07/24 09/05/24 History Losartan [Cozaar] 25 mg PO HS 05/07/24 09/05/24 History amLODIPine [Norvasc] 2.5 mg PO DAILY 05/07/24 09/05/24 History hydroCHLOROthiazide 25 mg PO DAILY 05/07/24 09/05/24 History Aspirin 81 mg PO DAILY 09/05/24 09/05/24 History Atorvastatin [Lipitor] 80 mg PO HS 09/05/24 09/05/24 History Clopidogrel [Plavix] 75 mg PO DAILY 09/05/24 09/05/24 History Dulaglutide [Trulicity] 0.75 mg SQ MO 09/05/24 09/05/24 History Lubiprostone [Amitiza] 24 mcg PO TID 09/05/24 09/05/24 History tiZANidine [Zanaflex] 2 mg PO BID 09/05/24 09/05/24 History Allergies Allergy/AdvReac Type Severity Reaction Status Date / Time peanut Allergy HIVES Verified 09/05/24 12:41 rice Allergy Rash/Hives Verified 09/05/24 12:41 seasonal Allergy Rash/Hives Uncoded 09/05/24 12:41 Physical Examination Gen: AOx3, NAD VSS stable at this time Integument: No open lesions or sores are visualized throughout the cervical, thoracic or lumbar spine Palpation: Patient demonstrates tenderness to the midline and paraspinal region of the cervical spine mainly on the right-hand side especially into the trapezius muscle ROM: Full range of motion in all major muscle groups of the bilateral upper and lower extremities, no focal deficits Sensory Exam: Senory exam to light touch is intact C5-T1, patient does demonstrate vague loss of light touch in the C3-C4, C5-C6 region Senosry exam to light touch is intact L2-S1 Motor: 5/5 strength appreciate the bilateral lower extremities with hip flexion, knee extension, knee flexion, plantarflexion, dorsiflexion, EHL, FHL 5/5 active patient in the left upper extremity with shoulder elevation, shoulder abduction, elbow extension, elbow flexion, wrist extension, wrist flexion, director of early childhood education 4-/5 strength appreciated in the right upper extremity with shoulder abduction, shoulder elevation 4/5 strength appreciated the right upper extremity with elbow extension, elbow flexion, wrist extension, wrist flexion, director of early childhood education Reflexes: 2/4 in all UE and LE Negative Marty's bilaterally Negative clonus bilaterally Special Test: Negative straight leg raise bilaterally Results - Labs Labs: Abnormal Lab Results - Last 24 Hours (Table) 09/05/24 09/05/24 09/06/24 Range/Units 17:55 19:33 03:49 POC Glucose (mg/dL) 222 H 243 H (70-110) mg/dL Hemoglobin A1c 9.7 H (<=6.0) % 09/06/24 09/06/24 Range/Units 06:02 12:02 POC Glucose (mg/dL) 158 H 138 H (70-110) mg/dL Hemoglobin A1c (<=6.0) % H & H 09/05/24 Range/Units 11:35 Hgb 12.6 (11.4-16.0) gm/dL Hct 37.8 (34.0-46.0) % Coagulation 09/05/24 Range/Units 20:08 INR 1.0 (<1.2) Result Diagrams: 09/05/24 11:35 09/05/24 11:35 - Diagnostic results CT scan - cervical: report reviewed, image reviewed Assessment and Plan Assessment: Neck pain Right upper extremity weakness Right upper extremity radicular pain Type II diabetic Multiple medical comorbidities Plan: Imaging: CT scan of the cervical spine, images and reports were reviewed from 05/30/2024. I did also review these with my attending Dr. Pettit. C3-C4 does demonstrate significant degenerative disc disease. Plan: I was able to discuss the case, this to include physical exam findings and imaging studies my attending physician. Due to patient's obvious weakness, radicular symptoms and length of time she has been dealing with these I did order a cervical spine MRI for further evaluation Pain control, would recommend continuing gabapentin. Could consider low-dose muscle relaxer. Would like to utilize steroids but with patient's diabetes I would like internal medicine to make final call on this. GI DVT prophylaxis per primary medical service Other medical specialty recommendations appreciated Will continue to follow patient during hospital stay Time with Patient: Less than 30
[2024-09-06] MEDS: amLODIPine 2.5 MG TAB PO ONE (15:51)
[2024-09-06] MEDS: DAPAGLIFLOZIN PROPANEDIOL 10 MG TABLET PO SCH (15:51)
[2024-09-06] MEDS: EZETIMIBE 10 MG TAB PO SCH (15:51)
[2024-09-06 17:28] LABS: Glucose,Whole Blood 300 mg/dL (70-110)
[2024-09-06 20:21] LABS: Glucose,Whole Blood 182 mg/dL (70-110)
[2024-09-07 06:19] LABS: Glucose,Whole Blood 193 mg/dL (70-110)
[2024-09-07] MEDS: amLODIPine 5 MG TAB PO SCH (08:46)
--- NOTE | 2024-09-07 11:00 | P.PN ---
Subjective Progress Note Date: 09/07/24 Subjective: Patient seen and examined at the bedside. Patient continues to have mild pain and weakness in the neck and arm Objective: Vital signs reviewed. General: non toxic, no distress, appears at stated age, normal weight Derm: no unusual rashes/lesions, warm Head: atraumatic, normocephalic, symmetric Eyes: EOMI, no lid lag, anicteric sclera, pupils equal round reactive to light ENT: Nose and ears atraumatic Neck: No cervical lymphadenopathy, trachea midline, supple Mouth: no lip lesion, mucus membranes moist Cardiovascular: Tenderness to palpation noted on the midsternal area, left and right chest wall. S1S2 reg, no murmur, positive dorsalis pedis pulse bilateral, no edema Lungs: CTA bilateral, no rhonchi, no rales, no accessory muscle use Abdominal: soft, nontender to palpation, no guarding Ext: muscle strength 4/5 in RUE, 5 out of 5 in all 3 extremities grossly, no gross muscle atrophy, no contractures, Neuro: CN II-XI grossly intact, no gross focal neuro deficits Psych: Alert, oriented, appropriate affect Data reviewed today: Labs: Triglyceride 100, cholesterol 161, LDL 93, HDL 48, HbA1c 9.7 Images: No new imaging Assessment and Plan: This is a 53-year-old female with history of CAD status post CABG in December 2023, type 2 diabetes, cervical radiculopathy, GERD, rheumatoid arthritis and COPD presents the ER with progressively worsening chest pain associated with shortness of breath started this morning. ED documentation reviewed and case discussed with ED provider. Patient admitted to internal medicine service for chest pain to rule out ACS. #Right upper extremity paresthesia Cervical spine CT on 06/26/2024 shows C3-C4 central disc protrusion with moderate spinal stenosis Consult orthopedic spine surgery C-spine MRI is pending Start dexamethasone 4mg q6h Continue with outpatient rehab Resume gabapentin 300 mg p.o. twice daily Resume tizanidine 2 mg p.o. twice daily Pain control with Tylenol 650 mg p.o. every 6 hours as needed #Hyperglycemia uncontrolled Serum glucose level 138 HbA1c 9.7 Accu-Cheks and sliding scale insulin Continue monitor serum glucose level # Atypical chest pain, ACS ruled out #History of CAD status post CABG Chest x-ray interpreted independently shows no acute cardiopulmonary process. EKG shows normal sinus rhythm with a rate of 73 bpm, no QTc prolongation. Flat T waves appreciated in lead aVL and V2. Poor R wave progression noted. Resume aspirin 81 mg p.o. daily and Plavix 75 mg p.o. daily Troponin trend: Negative Continue cardiac monitoring Lipid panel: Triglyceride 100, cholesterol 161, LDL 93, HDL 48, Consult cardiology Heart healthy diet Resume Imdur 30 mg p.o. daily Resume Protonix 40 mg p.o. daily Chronic conditions: Hypertension: Resume amlodipine 2.5 mg p.o. daily, hydrochlorothiazide 25 mg p.o. daily, losartan 25 mg p.o. at bedtime GERD/acid reflux: Resume Protonix 40 mg p.o. daily Monitor CBC and BMP F: P.o. E: Replete as needed N: Heart healthy diet A: Ambulatory without assist DVT prophylaxis: Heparin subcu GI prophylaxis: Protonix 40 mg p.o. daily CODE STATUS: Full code Discussed with: Patient Anticipated discharge place: Home Objective - Vital Signs Vital signs: Vital Signs Temp 98.2 F 09/07/24 07:00 Pulse 64 09/07/24 07:00 Resp 17 09/07/24 07:00 BP 151/80 09/07/24 07:00 Pulse Ox 100 09/07/24 07:00 FiO2 Intake & Output 09/06/24 09/07/24 09/07/24 18:59 06:59 18:59 Intake Total 340 Balance 340 Intake: Oral 340 Other: # Voids 2 1 # Bowel Movements 1 - Labs CBC & Chem 7: 09/05/24 11:35 09/05/24 11:35 Labs: Abnormal Lab Results - Last 24 Hours (Table) 09/06/24 09/06/24 09/06/24 Range/Units 12:02 17:25 20:20 POC Glucose (mg/dL) 138 H 300 H 182 H (70-110) mg/dL 09/07/24 Range/Units 06:18 POC Glucose (mg/dL) 193 H (70-110) mg/dL
[2024-09-07 12:18] LABS: Glucose,Whole Blood 221 mg/dL (70-110)
--- NOTE | 2024-09-07 12:21 | P.PN ---
Subjective Progress Note Date: 09/07/24 This is a 53-year-old female patient who follows in the office with Dr. Ojeda. She has a history of CAD status post CABG in December 2023, type 2 diabetes, cervical radiculopathy, GERD, rheumatoid arthritis and COPD. Presented to the emergency department with complaints of mostly right sided chest discomfort worse with palp patient, deep inspiration and certain movements. She has been unable to lift or do much exercising over the last several months. He has been having this discomfort since her surgery. She also has significant cervical spine issues with radiculopathy affecting the right arm. Upon examination the patient is resting in bed. She complains of significant right sided and sternal chest discomfort with light palpation. She has difficulty breathing due to the pain. She is somewhat tearful during my exam. EKG on admission showed sinus mechanism with possible prior ND but no evidence of acute ischemia. Findings of a negative x 3. Lobe and A1c 9.7. LDL 93. Pressure is elevated. Currently on losartan 25 mg p.o. nightly, Lipitor 80 mg p.o. nightly, metformin 1000 mg p.o. twice daily, hydrochlorothiazide 25 mg p.o. daily, amlodipine 2.5 mg p.o. daily, metoprolol succinate 50 mg p.o. daily, isosorbide 30 mg p.o. daily, and, aspirin, Plavix and Trulicity. 09/07/24 The patient was seen and examined sitting up in recliner. Overall she appears to be much more comfortable today admits to having less pain right now. He was seen by orthopedics yesterday and is scheduled to undergo MRI of the cervical spine tomorrow. Blood pressure remains somewhat elevated but overall the trend looks better. Objective - Vital Signs Vital signs: Vital Signs Temp 98.2 F 09/07/24 07:00 Pulse 64 09/07/24 07:00 Resp 17 09/07/24 07:00 BP 151/80 09/07/24 07:00 Pulse Ox 100 09/07/24 07:00 FiO2 Intake & Output 09/06/24 09/07/24 09/07/24 18:59 06:59 18:59 Intake Total 340 Balance 340 Intake: Oral 340 Other: # Voids 2 1 # Bowel Movements 1 - Exam PHYSICAL EXAMINATION: This is a 53-year-old female who is in no apparent distress at the time of my examination. VITAL SIGNS: Reviewed HEENT: Head is atraumatic, normocephalic. Pupils are equal, round. Sclerae anicteric. Conjunctivae are clear. Mucous membranes of the mouth are moist. Neck is supple. There is no elevated jugular venous pressure. No carotid bruit is heard. CHEST EXAMINATION: Clear to auscultation bilaterally. No wheezes rales or rhonchi. Respirations even and nonlabored. Less tenderness to palpation HEART EXAMINATION: Heart regular, positive S1 and S2. No S3. No S4. No clicks, rubs or murmurs. ABDOMEN: Soft, nontender. Bowel sounds are heard. No organomegaly noted. EXTREMITIES: 2+ peripheral pulses with no evidence of peripheral edema and no calf tenderness noted. NEUROLOGIC EXAMINATION: Patient is awake, alert and oriented x3. - Labs CBC & Chem 7: 09/05/24 11:35 09/05/24 11:35 Labs: Abnormal Lab Results - Last 24 Hours (Table) 09/06/24 09/06/24 09/06/24 Range/Units 12:02 17:25 20:20 POC Glucose (mg/dL) 138 H 300 H 182 H (70-110) mg/dL 09/07/24 Range/Units 06:18 POC Glucose (mg/dL) 193 H (70-110) mg/dL Assessment and Plan Assessment: #1 chest pain, appears to be musculoskeletal related to prior CABG incision and cervical radiculopathy #2 CAD with prior CABG #3 hypertension, uncontrolled #4 hyperlipidemia, suboptimally controlled #5 type 2 diabetes, uncontrolled Plan: From cardiology's perspective medications were reviewed and we will continue the same. Patient is cleared from discharge from our perspective. She will follow- up in the office with Dr. Ojeda. ROBOTIC WELDING OPERATOR note has been reviewed, I agree with a documented findings and plan of care. Patient was seen and examined.
--- NOTE | 2024-09-07 12:25 | P.PN ---
Subjective Progress Note Date: 09/07/24 Principal diagnosis: Neck pain, right upper extremity weakness, right upper extremity radiculopathy Patient evaluated today at bedside, her symptoms remain about the same. Uat Tester al medicine did start patient on IV Decadron which I anticipate will help with her overall symptoms. Patient continues to be followed by internal medicine and cardiology. We are awaiting her MRI of her cervical spine Objective - Vital Signs Vital signs: Vital Signs Temp 98.2 F 09/07/24 07:00 Pulse 64 09/07/24 07:00 Resp 17 09/07/24 07:00 BP 151/80 09/07/24 07:00 Pulse Ox 100 09/07/24 07:00 FiO2 Intake & Output 09/06/24 09/07/24 09/07/24 18:59 06:59 18:59 Intake Total 340 Balance 340 Intake: Oral 340 Other: # Voids 2 1 # Bowel Movements 1 - Exam Gen: AOx3, NAD VSS stable at this time Integument: No open lesions or sores are visualized throughout the cervical, thoracic or lumbar spine Palpation: Patient demonstrates tenderness to the midline and paraspinal region of the cervical spine mainly on the right-hand side especially into the trapezius muscle ROM: Full range of motion in all major muscle groups of the bilateral upper and lower extremities, no focal deficits Sensory Exam: Senory exam to light touch is intact C5-T1, patient does demonstrate vague loss of light touch in the C3-C4, C5-C6 region Senosry exam to light touch is intact L2-S1 Motor: 5/5 strength appreciate the bilateral lower extremities with hip flexion, knee extension, knee flexion, plantarflexion, dorsiflexion, EHL, FHL 5/5 active patient in the left upper extremity with shoulder elevation, shoulder abduction, elbow extension, elbow flexion, wrist extension, wrist flexion, gi asst 4-/5 strength appreciated in the right upper extremity with shoulder abduction, shoulder elevation 4/5 strength appreciated the right upper extremity with elbow extension, elbow flexion, wrist extension, wrist flexion, gi asst Reflexes: 2/4 in all UE and LE Negative Marty's bilaterally Negative clonus bilaterally Special Test: Negative straight leg raise bilaterally - Labs CBC & Chem 7: 09/05/24 11:35 09/05/24 11:35 Labs: Abnormal Lab Results - Last 24 Hours (Table) 1109/06/24 09/07/24 Range/Units 17:25 20:20 06:18 POC Glucose (mg/dL) 300 H 182 H 193 H (70-110) mg/dL 09/07/24 Range/Units 12:16 POC Glucose (mg/dL) 221 H (70-110) mg/dL Assessment and Plan Assessment: Neck pain Right upper extremity weakness Right upper extremity radicular pain Type II diabetic Multiple medical comorbidities Plan: Imaging: MRI cervical spine pending Plan: Await results of MRI of cervical spine Pain control, medicine did start patient on 4 mg Decadron every 6 hours, she also remains on gabapentin and her muscle relaxer GI DVT prophylaxis per primary medical service Other medical specialty recommendations appreciated Will continue to follow patient during hospital stay
[2024-09-07] MEDS: DEXAMETHASONE SOD PHOSPHATE 4 MG/ML 1 ML VIAL IVP SCH (15:05)
[2024-09-07 17:20] LABS: Glucose,Whole Blood 265 mg/dL (70-110)
[2024-09-07 20:04] LABS: Glucose,Whole Blood 391 mg/dL (70-110)
[2024-09-08 06:28] LABS: Glucose,Whole Blood 262 mg/dL (70-110)
--- NOTE | 2024-09-08 07:05 | P.PN ---
Progress Note - Text Progress Note Date: 09/08/24 Imaging and notes reviewed. I agree with assessment of VICTOR HUGO Velasco and agree with MRI. Await results to determine course and possible ACDF.
[2024-09-08 08:42] LABS: Basophils # (A) 0.01 X 10*3/uL (0.00-0.10); Basophils % (A) 0.1 %; Eosinophils # (A) 0 X 10*3/uL (0.04-0.35); Eosinophils % (A) 0 %; HCT 42.1 % (37.2-46.3); HGB 14.4 g/dL (12.0-15.0); Lymphocytes # (A) 1.23 X 10*3/uL (0.90-5.00); Lymphocytes % (A) 11.6 %; MCH 29.9 pg (27.0-32.0); MCHC 34.2 g/dL (32.0-37.0); MCV 87.3 FL (80.0-97.0); Mean Platelet Volume 10.5 FL (9.5-12.2); Monocytes # (A) 0.15 X 10*3/uL (0.20-1.00); Monocytes % (A) 1.4 %; NRBC Per 100 WBC 0 X 10*3/uL (0.00-0.01); Neutrophils # (A) 9.11 X 10*3/uL (1.80-7.70); Neutrophils % (A) 86.3 %; Platelet Count 294 X 10*3/uL (140-440); RBC 4.82 X 10*6/uL (4.10-5.20); RDW 12.1 % (11.5-14.5); WBC 10.56 X 10*3/uL (4.50-10.00)
[2024-09-08 08:45] LABS: BUN/Creat Ratio 22.12 Ratio (12.00-20.00); Blood Urea Nitrogen 17.7 mg/dL (9.0-27.0); Calcium 10.4 mg/dL (8.7-10.3); Chloride 99 mmol/L (96-109); Glucose 314 mg/dL (70-110); Potassium 4.2 mmol/L (3.5-5.5); Sodium 138 mmol/L (135-145)
[2024-09-08] MEDS: NON FORMULARY DRUG (Lubiprostone [Amitiza] 24 MCG Capsule) PO SCH (09:59)
[2024-09-08 12:03] LABS: Glucose,Whole Blood 370 mg/dL (70-110)
[2024-09-08] MEDS: INSULIN ASPART (NovoLOG) 100 UNIT/ML VIAL SQ SCH (14:07)
[2024-09-08 15:47] VITALS: BMI 39.6
--- NOTE | 2024-09-08 16:31 | P.PN ---
Subjective Progress Note Date: 09/08/24 Principal diagnosis: Neck pain Right upper extremity weakness Right upper extremity radiculopathy Patient seen and examined this afternoon. Patient is sitting up in chair. Dee ent continues to report cervical pain that radiates into the right upper extremity, associated with numbness and tingling. Patient continues with weakness of the right upper extremity with diminished dexterity. MRI results of the cervical spine has been reviewed and discussed. Patient has been offered surgical intervention C3-C7 ACDF, procedure and risk and benefits have been explained. Patient verbalizes understanding and would like to proceed with surgical intervention. We have her tentatively scheduled for , 09/11/2024. Objective - Vital Signs Vital signs: Vital Signs Temp 97.9 F 09/08/24 14:45 Pulse 70 09/08/24 14:45 Resp 16 09/08/24 14:45 BP 126/69 09/08/24 14:45 Pulse Ox 100 09/08/24 14:45 FiO2 Intake & Output 09/07/24 09/08/24 09/08/24 18:59 06:59 18:59 Intake Total 118 Balance 118 Weight 83.007 kg Intake: Oral 118 Other: Voiding Method Toilet Toilet # Voids 10 3 2 # Bowel Movements 5 1 - Exam Physical Examination General: The patient is awake and alert, in no acute distress Skin: Skin is warm and dry with no obvious rashes or lesions. Neck: The neck is supple, there is mild tenderness with palpation and limited ROM due to pain Cardiovascular: There is a regular rate and rhythm. Respiratory: Respirations are non-labored.. Gastrointestinal: Soft, non-distended, non-tender abdomen. Back: There is no tenderness to palpation in the midline, paralumbar, parathoracic or buttocks region. There is no obvious deformity. Musculoskeletal: ROM limited secondary to pain and stiffness from surgical procedure. Right: shoulder abduction 4/5, elbow flexors 4/5, wrist dorsiflexors 4-/5. finger abductor 4-/5, opal miner 4-/5, hip flexor 5/5, knee flexor 5/5, ankle dorsiflexor 5/5, ankle plantarflexion 5/5 and extensor hallucis 5/5. Left: shoulder abduction 5/5, elbow flexors 5/5, wrist dorsiflexors 5/5. finger abductor 5/5, opal miner 5/5, hip flexor 5/5, knee flexor 5/5, ankle dorsiflexor 5/5, ankle plantarflexion 5/5 and extensor hallucis 5/5. Neurological: CN 2-12 intact. There are no obvious motor or sensory deficits. Movement and coordination equal and intact. Sensory exam to light touch intact C5-T1 and intact from L2-S1. Reflexes 2/4 in bilateral upper and lower extremities. Negative Hoffmans, babinski, and clonus signs. Psychiatric: Cooperative, appropriate mood & affect, normal judgment. - Labs CBC & Chem 7: 09/08/24 04:21 09/08/24 04:21 Labs: Abnormal Lab Results - Last 24 Hours (Table) 09/07/24 09/07/24 09/08/24 Range/Units 17:18 20:02 04:21 WBC 10.56 H (4.50-10.00) X 10*3/uL Immature Gran # 0.06 H (0.00-0.04) X 10*3/uL Neutrophils # 9.11 H (1.80-7.70) X 10*3/uL Monocytes # 0.15 L (0.20-1.00) X 10*3/uL Eosinophils # 0 L (0.04-0.35) X 10*3/uL Anion Gap (4.00-12.00) mmol/L BUN/Creatinine Ratio (12.00-20.00) Ratio Glucose (70-110) mg/dL POC Glucose (mg/dL) 265 H 391 H (70-110) mg/dL Calcium (8.7-10.3) mg/dL 09/08/24 09/08/24 09/08/24 Range/Units 04:21 06:26 12:02 WBC (4.50-10.00) X 10*3/uL Immature Gran # (0.00-0.04) X 10*3/uL Neutrophils # (1.80-7.70) X 10*3/uL Monocytes # (0.20-1.00) X 10*3/uL Eosinophils # (0.04-0.35) X 10*3/uL Anion Gap 14.00 H (4.00-12.00) mmol/L BUN/Creatinine Ratio 22.12 H (12.00-20.00) Ratio Glucose 314 H (70-110) mg/dL POC Glucose (mg/dL) 262 H 370 H (70-110) mg/dL Calcium 10.4 H (8.7-10.3) mg/dL Assessment and Plan Assessment: C3-C7 spondylosis with stenosis Right upper extremity radiculopathy with weakness Multiple complex comorbidities Plan: MRI of the cervical spine demonstrates spondylolytic and degenerative changes C3-C7 with multilevel HNP with stenosis. We recommend C3-C7 anterior cervical discectomy and fusion. Procedure, risks and benefits have been discussed and patient would like to move forward with surgical intervention. Patient is scheduled for surgery on , 09/11/2024. Medical, pulmonary, cardiac surgical clearance to be obtained. -Appreciate web development consultant and team management. -Activity: Ambulate QID, OOB all meals, up and about, limit lifting bending twisting to less than 5 lbs. Use walker or cane if needed for stability. -Daily PT/OT, increase ambulation strength and balance. -Pain control: Adequate at this time -Meds: reviewed -GI ppx: senna, Miralax -DVT PPX: TEDS, SCDs *I reviewed and discussed this case with my attending Dr. Pettit, whom has reviewed this chart and films and is in agreement with assessment and plan of care as outlined above. I have personally seen and examined the patient, performed the documentation and the assessment and plan as written. Number of minutes spent on the visit: 30m.
[2024-09-08 17:26] LABS: Glucose,Whole Blood 310 mg/dL (70-110)
--- NOTE | 2024-09-08 19:10 | P.PN ---
Subjective Progress Note Date: 09/08/24 Subjective: Patient seen and examined at the bedside. MR C-spine c/w cervical myelopathy, discussed with ortho and planning on ACDF on Objective: Vital signs reviewed. General: non toxic, no distress, appears at stated age, normal weight Derm: no unusual rashes/lesions, warm Head: atraumatic, normocephalic, symmetric Eyes: EOMI, no lid lag, anicteric sclera, pupils equal round reactive to light ENT: Nose and ears atraumatic Neck: No cervical lymphadenopathy, trachea midline, supple Mouth: no lip lesion, mucus membranes moist Cardiovascular: Tenderness to palpation noted on the midsternal area, left and right chest wall. S1S2 reg, no murmur, positive dorsalis pedis pulse bilateral, no edema Lungs: CTA bilateral, no rhonchi, no rales, no accessory muscle use Abdominal: soft, nontender to palpation, no guarding Ext: muscle strength 4/5 in RUE, 5 out of 5 in all 3 extremities grossly, no gross muscle atrophy, no contractures, Neuro: CN II-XI grossly intact, no gross focal neuro deficits Psych: Alert, oriented, appropriate affect Data reviewed today: Labs: Triglyceride 100, cholesterol 161, LDL 93, HDL 48, HbA1c 9.7 Images: No new imaging Assessment and Plan: This is a 53-year-old female with history of CAD status post CABG in December 2023, type 2 diabetes, cervical radiculopathy, GERD, rheumatoid arthritis and COPD presents the ER with progressively worsening chest pain associated with shortness of breath started this morning. ED documentation reviewed and case discussed with ED provider. Patient admitted to internal medicine service for chest pain to rule out ACS. #Right upper extremity paresthesia Cervical spine CT on 06/26/2024 shows C3-C4 central disc protrusion with moderate spinal stenosis Consult orthopedic spine surgery C-spine MRI is pending Start dexamethasone 4mg q6h Continue with outpatient rehab Resume gabapentin 300 mg p.o. twice daily Resume tizanidine 2 mg p.o. twice daily Pain control with Tylenol 650 mg p.o. every 6 hours as needed #Hyperglycemia uncontrolled Serum glucose level 138 HbA1c 9.7 Accu-Cheks and sliding scale insulin Continue monitor serum glucose level # Atypical chest pain, ACS ruled out #History of CAD status post CABG Chest x-ray interpreted independently shows no acute cardiopulmonary process. EKG shows normal sinus rhythm with a rate of 73 bpm, no QTc prolongation. Flat T waves appreciated in lead aVL and V2. Poor R wave progression noted. Resume aspirin 81 mg p.o. daily and Plavix 75 mg p.o. daily Troponin trend: Negative Continue cardiac monitoring Lipid panel: Triglyceride 100, cholesterol 161, LDL 93, HDL 48, Consult cardiology Heart healthy diet Resume Imdur 30 mg p.o. daily Resume Protonix 40 mg p.o. daily Chronic conditions: Hypertension: Resume amlodipine 2.5 mg p.o. daily, hydrochlorothiazide 25 mg p.o. daily, losartan 25 mg p.o. at bedtime GERD/acid reflux: Resume Protonix 40 mg p.o. daily Monitor CBC and BMP F: P.o. E: Replete as needed N: Heart healthy diet A: Ambulatory without assist DVT prophylaxis: Heparin subcu GI prophylaxis: Protonix 40 mg p.o. daily CODE STATUS: Full code Discussed with: Patient Anticipated discharge place: Home Objective - Vital Signs Vital signs: Vital Signs Temp 97.9 F 09/08/24 14:45 Pulse 70 09/08/24 14:45 Resp 16 09/08/24 14:45 BP 126/69 09/08/24 14:45 Pulse Ox 100 09/08/24 14:45 FiO2 Intake & Output 09/08/24 09/08/24 09/09/24 06:59 18:59 06:59 Weight 83.007 kg Other: Voiding Method Toilet # Voids 3 1 # Bowel Movements 1 - Labs CBC & Chem 7: 09/08/24 04:21 09/08/24 04:21 Labs: Abnormal Lab Results - Last 24 Hours (Table) 09/07/24 09/08/24 09/08/24 Range/Units 20:02 04:21 04:21 WBC 10.56 H (4.50-10.00) X 10*3/uL Immature Gran # 0.06 H (0.00-0.04) X 10*3/uL Neutrophils # 9.11 H (1.80-7.70) X 10*3/uL Monocytes # 0.15 L (0.20-1.00) X 10*3/uL Eosinophils # 0 L (0.04-0.35) X 10*3/uL Anion Gap 14.00 H (4.00-12.00) mmol/L BUN/Creatinine Ratio 22.12 H (12.00-20.00) Ratio Glucose 314 H (70-110) mg/dL POC Glucose (mg/dL) 391 H (70-110) mg/dL Calcium 10.4 H (8.7-10.3) mg/dL 09/08/24 09/08/24 09/08/24 Range/Units 06:26 12:02 17:25 WBC (4.50-10.00) X 10*3/uL Immature Gran # (0.00-0.04) X 10*3/uL Neutrophils # (1.80-7.70) X 10*3/uL Monocytes # (0.20-1.00) X 10*3/uL Eosinophils # (0.04-0.35) X 10*3/uL Anion Gap (4.00-12.00) mmol/L BUN/Creatinine Ratio (12.00-20.00) Ratio Glucose (70-110) mg/dL POC Glucose (mg/dL) 262 H 370 H 310 H (70-110) mg/dL Calcium (8.7-10.3) mg/dL
--- NOTE | 2024-09-08 19:21 | P.PN ---
Progress Note - Text Progress Note Date: 09/08/24 MRI REVIEWED. LARGE HNP C3-4 WITH SEVERE STENOSIS. STENOSIS C4-6 WITH SEVERE STENOSIS AND HNP C5-6 AND C6-7 WELL WITH MYELOMALACIA UE WEAKNESS PLAN FOR ACDF ON SUN VS D/T AVAILABILITY AND OR TIME/STAFF.
[2024-09-08 20:17] LABS: Glucose,Whole Blood 246 mg/dL (70-110)
[2024-09-08] MEDS: INSULIN DETEMIR (LEVEMIR) 100 UNIT/ML SYR SQ SCH (20:47)
[2024-09-09 06:27] LABS: Glucose,Whole Blood 198 mg/dL (70-110)
--- NOTE | 2024-09-09 07:47 | P.PN ---
Subjective Progress Note Date: 09/09/24 Principal diagnosis: Neck pain Right upper extremity weakness Right upper extremity radiculopathy Patient seen and examined this morning. Patient denies any changes in her sympto ms. Surgical intervention of a C3-C7 ACDF is scheduled for tomorrow 09/10/[address] Pettit's office hours. Informed and discussed date changes of surgery with patient. Patient states she will notify her family. She is to be NPO at [facility]. Blood thinners need to be held until 48-72hrs after surgery. No acute concerns at this time. Objective - Vital Signs Vital signs: Vital Signs Temp 97.8 F 09/09/24 02:00 Pulse 69 09/09/24 02:00 Resp 18 09/09/24 02:00 BP 129/74 09/09/24 02:00 Pulse Ox 100 09/09/24 02:00 FiO2 Intake & Output 09/08/24 09/09/24 09/09/24 18:59 06:59 18:59 Intake Total 540 Balance 540 Weight 83.007 kg Intake: Oral 540 Other: # Voids 1 2 - Exam Physical Examination General: The patient is awake and alert, in no acute distress Skin: Skin is warm and dry with no obvious rashes or lesions. Neck: The neck is supple, there is mild tenderness with palpation and limited ROM due to pain Cardiovascular: There is a regular rate and rhythm. Respiratory: Respirations are non-labored.. Gastrointestinal: Soft, non-distended, non-tender abdomen. Back: There is no tenderness to palpation in the midline, paralumbar, parathoracic or buttocks region. There is no obvious deformity. Musculoskeletal: ROM limited secondary to pain and stiffness from surgical procedure. Right: shoulder abduction 4/5, elbow flexors 4/5, wrist dorsiflexors 4-/5. finger abductor 4-/5, stagecraft professor 4-/5, hip flexor 5/5, knee flexor 5/5, ankle dorsiflexor 5/5, ankle plantarflexion 5/5 and extensor hallucis 5/5. Left: shoulder abduction 5/5, elbow flexors 5/5, wrist dorsiflexors 5/5. finger abductor 5/5, stagecraft professor 5/5, hip flexor 5/5, knee flexor 5/5, ankle dorsiflexor 5/5, ankle plantarflexion 5/5 and extensor hallucis 5/5. Neurological: CN 2-12 intact. There are no obvious motor or sensory deficits. Movement and coordination equal and intact. Sensory exam to light touch intact C5-T1 and intact from L2-S1. Reflexes 2/4 in bilateral upper and lower extremities. Negative Hoffmans, babinski, and clonus signs. Psychiatric: Cooperative, appropriate mood & affect, normal judgment. - Labs CBC & Chem 7: 09/08/24 04:21 09/08/24 04:21 Labs: Abnormal Lab Results - Last 24 Hours (Table) 09/08/24 09/08/24 09/08/24 Range/Units 04:21 04:21 12:02 WBC 10.56 H (4.50-10.00) X 10*3/uL Immature Gran # 0.06 H (0.00-0.04) X 10*3/uL Neutrophils # 9.11 H (1.80-7.70) X 10*3/uL Monocytes # 0.15 L (0.20-1.00) X 10*3/uL Eosinophils # 0 L (0.04-0.35) X 10*3/uL Anion Gap 14.00 H (4.00-12.00) mmol/L BUN/Creatinine Ratio 22.12 H (12.00-20.00) Ratio Glucose 314 H (70-110) mg/dL POC Glucose (mg/dL) 370 H (70-110) mg/dL Calcium 10.4 H (8.7-10.3) mg/dL 09/08/24 09/08/24 09/09/24 Range/Units 17:25 20:15 06:25 WBC (4.50-10.00) X 10*3/uL Immature Gran # (0.00-0.04) X 10*3/uL Neutrophils # (1.80-7.70) X 10*3/uL Monocytes # (0.20-1.00) X 10*3/uL Eosinophils # (0.04-0.35) X 10*3/uL Anion Gap (4.00-12.00) mmol/L BUN/Creatinine Ratio (12.00-20.00) Ratio Glucose (70-110) mg/dL POC Glucose (mg/dL) 310 H 246 H 198 H (70-110) mg/dL Calcium (8.7-10.3) mg/dL Assessment and Plan Assessment: C3-C7 spondylosis with stenosis Right upper extremity radiculopathy with weakness Multiple complex comorbidities Plan: Patient is scheduled for surgery on 09/10/2024. Medical, pulmonary, cardiac surgical clearance to be obtained. NPO at [facility] -Appreciate mergers and acquisitions consultant and team management. -Activity: Ambulate QID, OOB all meals, up and about, limit lifting bending t wisting to less than 5 lbs. Use walker or cane if needed for stability. -Daily PT/OT, increase ambulation strength and balance. -Blood thinners need to be held until 48-72 hours after surgery. -Pain control: Adequate at this time -Meds: reviewed -GI ppx: bola Miralax -DVT PPX: TEDS, SCDs *I reviewed and discussed this case with my attending Dr. Pettit, whom has reviewed this chart and films and is in agreement with assessment and plan of care as outlined above. I have personally seen and examined the patient, performed the documentation and the assessment and plan as written. Number of minutes spent on the visit: 30m.
[2024-09-09 08:03] LABS: Basophils # (A) 0.1 k/uL (0-0.2); Basophils % (A) 0 %; Eosinophils # (A) 0.1 k/uL (0-0.7); Eosinophils % (A) 1 %; HCT 41.5 % (34.0-46.0); Lymphocytes # (A) 2.9 k/uL (1.0-4.8); Lymphocytes % (A) 19 %; MCH 30.1 pg (25.0-35.0); MCHC 33.8 g/dL (31.0-37.0); MCV 89.1 fL (80.0-100.0); Mean Platelet Volume 7.5; Monocytes # (A) 0.7 k/uL (0-1.0); Monocytes % (A) 4 %; Neutrophils # (A) 11.9 k/uL (1.3-7.7); Neutrophils % (A) 75 %; Platelet Count 274 k/uL (150-450); RBC 4.65 m/uL (3.80-5.40); RDW 12.9 % (11.5-15.5); WBC 15.9 k/uL (3.8-10.6)
[2024-09-09 08:15] LABS: African American GFR (CKD) >90 (>60 ml/min/1.73 sqM); Anion Gap 9 mmol/L; Blood Urea Nitrogen 27 mg/dL (7-17); Calcium 9.8 mg/dL (8.4-10.2); Carbon Dioxide 31 mmol/L (22-30); Chloride 101 mmol/L (98-107); Glucose 184 mg/dL (74-99); Non-African American GFR(CKD) >90 (>60 ml/min/1.73 sqM); Potassium 4.2 mmol/L (3.5-5.1); Sodium 141 mmol/L (137-145)
--- NOTE | 2024-09-09 09:40 | MR ---
EXAMINATION TYPE: MR cervical spine wo con DATE OF EXAM: 09/08/2024 1:10 PM COMPARISON: None. CLINICAL INDICATION: Female, 53 years old with history of Right upper extremity weakness/radiculopath y, Right upper extremity weakness. TECHNIQUE: Multiplanar MultiSpin echo imaging of the cervical spine was performed. FINDINGS: C2-C3: No evidence for degenerative disc disease. No disc bulge/herniation or protrusion. No Canal stenosis. Foramina are patent bilaterally. C3-C4: Mild disc desiccation. Posterocentral disc herniation with the cranial migration posterior to the C3 segment. Disc herniation measures 3.9 mm AP dimension by 9.5 mm craniocaudal dimension. There is cord contact seen without central stenosis. Foramina are patent bilaterally. C4-C5: Mild disc desiccation with posterior disc bulge. Mild effacement ventral thecal sac. No eviden ce for akbar herniation or central stenosis. Foramina are patent bilaterally. C5-C6: Mild disc desiccation with left paracentral subligamentous disc herniation. Effacement ventral thecal sac with mild central stenosis present. Mild left foraminal encroachment. C6-C7: Mild disc desiccation with right paracentral disc herniation. There is resultant right foramin al encroachment. There is also mild central stenosis. Left foramen is patent. C7-T1: No evidence for degenerative disc disease. No disc bulge/herniation or protrusion. No Canal stenosis. Foramina are patent bilaterally. Cervical segments are intact. There is normal alignment. Cervical spinal cord is of normal signal. Craniovertebral junction relationships are within normal limits. IMPRESSION: 1. Disc herniations as noted above greatest at C3-4 where extruded component is difficult to exclude. At this level there is ventral CORD contact without central stenosis. 2. Disc herniations at C5-6 and C6-7 as discussed above. Resultant central stenosis as noted. [facility], , 09/09/2024 9:38 AM
[2024-09-09] MEDS: LACTATED RINGERS 1,000 ML IV SCH (10:48)
[2024-09-09 11:38] LABS: Glucose,Whole Blood 302 mg/dL (70-110)
--- NOTE | 2024-09-09 11:48 | P.PN ---
Subjective Progress Note Date: 09/09/24 This is a 53-year-old female with history of CAD status post CABG in December 2023, type 2 diabetes, cervical radiculopathy, GERD, rheumatoid arthritis and COPD presents the ER with progressively worsening chest pain associated with shortness of breath started this morning. Patient describes the pain as sharp and heavy and it mainly on the right side shooting across to the left side as well as in the midsternal area radiating down into the epigastric area. Her pain is exacerbated with deep breaths, and after eating heavy meals. It is alleviated with nitrate and with rest. Patient has been endorsing sharp intermittent centrally located chest pain sometime radiating across her chest since she got her CABG procedure. Today, patient was trying to catch the bus to go to dental office when she st arted to experience worsening chest pain associated with short of breath. She felt very winded and lethargic and had to struggle to get onto the bus. At the dental office, her blood pressure was in 160s over 90s and also started to experience some paresthesia in her right arm which prompted her to come to the ER for further assessment. Patient denies recent fall or trauma to the chest. Patient denies any recent travel history, recent upper respiratory tract infection, use of illicit drug. Patient is currently on dual antiplatelet therapy with aspirin and Plavix. Patient denies orthopnea, PND and swelling of legs. Of note, patient has a history of multilevel degenerative disc disease and has been experiencing paresthesia chronically in her right arm which she said has gotten worse in the last 3 weeks. He has been taking [id number] medication as well as she is on gabapentin which provides her minimal relief. At the time of interview, patient is still complaining of chest pain as well as tingling in her right arm. However she is not complaining of any shortness of breath, dizziness, nausea, vomiting, abdominal discomfort. Labs and images: Lab evaluation in the ER shows troponin I less than 0.012, lipase 196, WBC of 7.9, hemoglobin 12.6, MCV 87.9, platelet count 209, sodium 140, potassium 3.5, bicarb 29, BUN 10, creatinine 0.56, glucose 175, magnesium 1.7, AST 22, ALT 20, alkaline phosphatase 142 Chest x-ray interpreted independently shows no acute cardiopulmonary process. EKG shows normal sinus rhythm with a rate of 73 bpm, no QTc prolongation. Flat T waves appreciated in lead aVL and V2. Poor R wave progression noted. 09/09/2024 patient seen and examined at bedside. Patient has no new complaints or worsening symptoms overnight. Vitals remained stable overnight. WBC 15.9 hemoglobin 14 platelet count 274 sodium 141 potassium 4.2 chloride 101 bicarb 31 BUN 27 creatinine 0.6 glucose 184 urine hCG negative Physical examination: Vital signs reviewed General: non toxic, no distress, appears at stated age Derm: no unusual rashes/lesions, warm Head: atraumatic, normocephalic, symmetric Eyes: EOMI, no lid lag, anicteric sclera, pupils equal round reactive to light ENT: Nose and ears atraumatic Neck: No cervical lymphadenopathy, trachea midline, supple Mouth: no lip lesion, mucus membranes moist Cardiovascular: Tenderness to palpation noted on the midsternal area, left and right chest wall. S1S2 reg, no murmur, positive dorsalis pedis pulse bilateral, no edema Lungs: CTA bilateral, no rhonchi, no rales, no accessory muscle use Abdominal: soft, nontender to palpation, no guarding Ext: muscle strength 4/5 in RUE, 5 out of 5 in all 3 extremities grossly, no gross muscle atrophy, no contractures Neuro: CN II-XI grossly intact, no gross focal neuro deficits Psych: Alert, oriented, appropriate affect Assessment and Plan: This is a 53-year-old female with history of CAD status post CABG in December 2023, type 2 diabetes, cervical radiculopathy, GERD, rheumatoid arthritis and COPD presents the ER with progressively worsening chest pain associated with shortness of breath started this morning. ED documentation reviewed and case discussed with ED provider. Patient admitted to internal medicine service for chest pain to rule out ACS. # C3-C7 spondylosis with stenosis #Right upper extremity paresthesia Cervical spine CT on 06/26/2024 shows C3-C4 central disc protrusion with moderate spinal stenosis C-spine MRI resulted show C3/C7 severe stenosis with C5-C6 and C6-C7 myelomalacia Orthopedic spine surgery following, will do C3 C7 ACDF scheduled for 09/10/2024. N.p.o. at midnight Start dexamethasone 4mg q6h Continue with outpatient rehab Resume gabapentin 300 mg p.o. twice daily Resume tizanidine 2 mg p.o. twice daily Pain control with Tylenol 650 mg p.o. every 6 hours as needed Cleared for surgery on medicine standpoint #Hyperglycemia uncontrolled Serum glucose level 138 HbA1c 9.7 Decreased Levemir to 7 units for tonight before procedure. Will increase again to 14 units. Continue Accu-Cheks Hold sliding scale insulin night before procedure. Will resume postop BMP at a.m. # Atypical chest pain, ACS ruled out #History of CAD status post CABG Chest x-ray interpreted independently shows no acute cardiopulmonary process. EKG shows normal sinus rhythm with a rate of 73 bpm, no QTc prolongation. Flat T waves appreciated in lead aVL and V2. Poor R wave progression noted. Resume aspirin 81 mg p.o. daily and Plavix 75 mg p.o. daily Troponin trend: Negative Lipid panel: Triglyceride 100, cholesterol 161, LDL 93, HDL 48, Resume Imdur 30 mg p.o. daily Resume Protonix 40 mg p.o. daily Consult cardiology for clearance Continue cardiac monitoring Chronic conditions: Hypertension Continue amlodipine 2.5 mg p.o. daily hold hydrochlorothiazide 25 mg p.o. daily before procedure continue losartan 25 mg p.o. at bedtime GERD/acid reflux Continue Protonix 40 mg p.o. daily Monitor CBC and BMP F: NPO E: Replete as needed N: N.p.o. A: Ambulatory without assist DVT prophylaxis: Heparin subcu GI prophylaxis: Protonix 40 mg p.o. daily CODE STATUS: Full code Discussed with: Patient Anticipated discharge place: Home I saw and evaluated the patient during the smith and critical portions of this encounter, and discussed the case in detail with the resident author of this note, I agree with the Assessment and Plan, and my changes, if any, are highlighted in blue. Objective - Vital Signs Vital signs: Vital Signs Temp 97.8 F 09/09/24 02:00 Pulse 69 09/09/24 02:00 Resp 18 09/09/24 02:00 BP 129/74 09/09/24 02:00 Pulse Ox 100 09/09/24 02:00 FiO2 Intake & Output 09/08/24 09/09/24 09/09/24 18:59 06:59 18:59 Intake Total 540 Balance 540 Weight 83.007 kg Intake: Oral 540 Other: # Voids 1 2 - Labs CBC & Chem 7: 09/09/24 07:35 11/19/24 07:35 Labs: Abnormal Lab Results - Last 24 Hours (Table) 09/08/24 09/08/24 09/08/24 Range/Units 04:21 04:21 12:02 WBC 10.56 H (4.50-10.00) X 10*3/uL Immature Gran # 0.06 H (0.00-0.04) X 10*3/uL Neutrophils # 9.11 H (1.80-7.70) X 10*3/uL Monocytes # 0.15 L (0.20-1.00) X 10*3/uL Eosinophils # 0 L (0.04-0.35) X 10*3/uL Anion Gap 14.00 H (4.00-12.00) mmol/L BUN/Creatinine Ratio 22.12 H (12.00-20.00) Ratio Glucose 314 H (70-110) mg/dL POC Glucose (mg/dL) 370 H (70-110) mg/dL Calcium 10.4 H (8.7-10.3) mg/dL 09/08/24 09/08/24 09/09/24 Range/Units 17:25 20:15 06:25 WBC (4.50-10.00) X 10*3/uL Immature Gran # (0.00-0.04) X 10*3/uL Neutrophils # (1.80-7.70) X 10*3/uL Monocytes # (0.20-1.00) X 10*3/uL Eosinophils # (0.04-0.35) X 10*3/uL Anion Gap (4.00-12.00) mmol/L BUN/Creatinine Ratio (12.00-20.00) Ratio Glucose (70-110) mg/dL POC Glucose (mg/dL) 310 H 246 H 198 H (70-110) mg/dL Calcium (8.7-10.3) mg/dL
--- NOTE | 2024-09-09 12:04 | P.CNPUL ---
History of Present Illness Consult date: 09/09/24 Requesting physician: Haroon Colin Reason for consult: other (Preoperative clearance) Chief complaint: Left-sided chest pain History of present illness: This is a very pleasant 53-year-old female patient with a known history of coronary artery disease with previous stent placement and subsequent coronary artery bypass grafting in December 2023. She had developed left-sided pleural effusions and had undergone a thoracentesis in January 2024. She also has a history of diabetes mellitus, hypertension, hyperlipidemia, rheumatoid arthritis. She also has a remote smoking history. She follows with an outside stock worker for COPD. She is only on albuterol that she rarely uses at home. No pulmonary complaints. She presented here on September 05, 2024 with complaints of left-sided chest discomfort. EKG revealed sinus rhythm with no acute ST or T wave abnormalities. Some minimal plate atelectasis and scarring of the left lung base. White count 15.9. Hemoglobin 14.0. Platelets 274. Sodium 141. Potassium 4.2. Bicarb 31. BUN 27. Creatinine 0.61. Glucose 184. She also had complaints of neck pain with right upper extremity weakness. RI of the cervical spine revealed disc herniations at C3-4 where extruded component is difficult to exclude. There is ventral cord contact without central stenosis. Disc herniations at C5-6 and C6-C7. Resultant central stenosis noted. She is scheduled for surgical intervention at C3-C7 ACDF tomorrow with Dr. Head 7. We were asked to see the patient for pulmonary clearance. She is seen today on the regular medical floor. She is resting quite comfortably in bed. Awake and alert in no acute distress. She has no pulmonary complaints. No shortness of breath, cough or congestion. No chest tightness or wheezing. Maintaining good O2 saturations up to 100% on room air. She has been afebrile. Hemodynamically stable. Review of Systems REVIEW OF SYSTEMS: CONSTITUTIONAL: Denies any recent significant weight loss or weight gain. EYES: Denies change in vision. EARS, NOSE, MOUTH, THROAT: Denies headaches, denies sore throat. CARDIOVASCULAR: Positive for left-sided chest pain, no palpitations or syncopal episodes. RESPIRATORY: Denies shortness of breath, cough, congestion or hemoptysis. GASTROINTESTINAL: Denies change in appetite, denies abdominal pain GENITOURINARY: Denies hematuria, denies infections. MUSKULOSKELETAL: Positive for neck pain with right upper extremity tingling and numbness. INTEGUMENTARY: Denies rash, denies eczema. NEUROLOGICAL: Denies recent memory loss, no recent seizure activity. PSYCHIATRIC: Denies anxiety, denies depression. HEMATOLOGIC/LYMPHATIC: Denies anemia, denies enlarged lymph nodes. Past Medical History Past Medical History: Asthma, Coronary Artery Disease (CAD), COPD, Diabetes Mellitus, Hyperlipidemia, Hypertension, Myocardial Infarction (GA), Musculoskeletal Disorder, Rheumatoid Arthritis (RA), Thyroid Disorder Additional Past Medical History / Comment(s): Back Pain, right shoulder pain, Hx Pituitary Tumor, BENIGN. Thyroid disorder. 3 heart attacks-most recent March 2022, 3 stents total, neuropathy; left-sided pleural effusion Last Myocardial Infarction Date:: 10/29/22 History of Any Multi-Drug Resistant Organisms: None Reported Past Surgical History: Section, Coronary Bypass/CABG, Heart Cat heterization With Stent, Tubal Ligation Additional Past Surgical History / Comment(s): Pituitary Tumor Removed. colonoscopy, [facility] stents x3 c section x4; three-vessel off- pump CABG January 04, 2024; left-sided thoracentesis with removal of 950 mL fluid on January 22, 2024 Past Anesthesia/Blood Transfusion Reactions: No Reported Reaction Date of Last Stent Placement:: March 2022 Past Psychological History: Anxiety, Depression Smoking Status: Former smoker Past Alcohol Use History: None Reported Past Drug Use History: Marijuana - Past Family History Mother History Unknown: Yes Family Medical History: Deep Vein Thrombosis (DVT) Additional Family Medical History / Comment(s): Mother is alive at age 67 with history of coronary artery disease and three-vessel CABG. Daughter(s) History Unknown: Yes Family Medical History: Deep Vein Thrombosis (DVT) Additional Family Medical History / Comment(s): Patient has a total of 9 children with no major medical problems. Father History Unknown: Yes Family Medical History: Cancer Additional Family Medical History / Comment(s): Father is alive with no history of coronary artery disease. History of Prostate Cancer Sister(s) History Unknown: Yes Additional Family Medical History / Comment(s): The patient has 4 sisters and 1 brother. One sister had a myocardial infraction at age 40. Medications and Allergies Home Medications Medication Instructions Recorded Confirmed Type metFORMIN HCL [Glucophage] 1,000 mg PO BID 01/19/22 09/05/24 History Metoprolol Succinate (ER) [Toprol 50 mg PO DAILY 03/01/24 09/05/24 History XL] Pantoprazole [Protonix] 40 mg PO DAILY 03/01/24 09/05/24 History Ferrous Sulfate [Iron (65 MG 325 mg PO BID 05/07/24 09/05/24 History Elemental)] Gabapentin [Neurontin] 300 mg PO BID 05/07/24 09/05/24 History Meenakshi Multivitamin Gummy 2 tab PO DAILY 05/07/24 09/05/24 History Isosorbide Mononitrate ER [Imdur] 30 mg PO DAILY 05/07/24 09/05/24 History Losartan [Cozaar] 25 mg PO HS 05/07/24 09/05/24 History amLODIPine [Norvasc] 2.5 mg PO DAILY 05/07/24 09/05/24 History hydroCHLOROthiazide 25 mg PO DAILY 05/07/24 09/05/24 History Aspirin 81 mg PO DAILY 09/05/24 09/05/24 History Atorvastatin [Lipitor] 80 mg PO HS 09/05/24 09/05/24 History Clopidogrel [Plavix] 75 mg PO DAILY 09/05/24 09/05/24 History Dulaglutide [Trulicity] 0.75 mg SQ MO 09/05/24 09/05/24 History Lubiprostone [Amitiza] 24 mcg PO TID 09/05/24 09/05/24 History tiZANidine [Zanaflex] 2 mg PO BID 09/05/24 09/05/24 History Allergies Allergy/AdvReac Type Severity Reaction Status Date / Time peanut Allergy HIVES Verified 09/05/24 12:41 rice Allergy Rash/Hives Verified 09/05/24 12:41 seasonal Allergy Rash/Hives Uncoded 09/05/24 12:41 Physical Exam Vitals: Vital Signs Temp Pulse Resp BP Pulse Ox 09/09/24 07:28 98.1 F 64 19 151/84 98 09/09/24 02:00 97.8 F 69 18 129/74 100 09/08/24 23:18 97.7 F 69 19 153/80 100 09/08/24 22:15 74 100 09/08/24 20:00 98.0 F 73 17 148/83 84 L 09/08/24 14:45 97.9 F 70 16 126/69 100 Intake and Output 09/08/24 09/09/24 09/09/24 22:59 06:59 14:59 Intake Total 540 Balance 540 Intake: Oral 540 Other: Voiding Method Toilet # Voids 1 2 Weight 83.007 kg GENERAL EXAM: Alert, very pleasant 53-year-old female, on room air, fairly comfortable in no apparent distress. HEAD: Normocephalic. EYES: Normal reaction of pupils, equal size. NOSE: Clear with pink turbinates. THROAT: No erythema or exudates. NECK: No masses, no JVD. CHEST: No chest wall deformity. LUNGS: Equal air entry with no crackles, wheeze, rhonchi or dullness. CVS: S1 and S2 normal with no audible murmur, regular rhythm. ABDOMEN: No hepatosplenomegaly, normal bowel sounds, no guarding or rigidity. SPINE: No scoliosis or deformity SKIN: No rashes CENTRAL NERVOUS SYSTEM: No focal deficits, tone is normal in all 4 extremities. EXTREMITIES: There is no peripheral edema. No clubbing, no cyanosis. Peripheral pulses are intact. Results - Laboratory Findings CBC and BMP: 09/09/24 07:35 09/09/24 07:35 PT/INR, D-dimer PT 10.5 sec (10.0-12.5) 09/05/24 20:08 INR 1.0 (<1.2) 09/05/24 20:08 Abnormal lab findings: Abnormal Labs 09/05/24 09/05/24 09/05/24 11:35 17:55 19:33 WBC Immature Gran # Neutrophils # Monocytes # Eosinophils # Carbon Dioxide Anion Gap BUN BUN/Creatinine Ratio Glucose 175 H POC Glucose (mg/dL) 222 H 243 H Hemoglobin A1c Calcium Alkaline Phosphatase 152 H 09/06/24 09/06/24 09/06/24 03:49 06:02 12:02 WBC Immature Gran # Neutrophils # Monocytes # Eosinophils # Carbon Dioxide Anion Gap BUN BUN/Creatinine Ratio Glucose POC Glucose (mg/dL) 158 H 138 H Hemoglobin A1c 9.7 H Calcium Alkaline Phosphatase 09/06/24 09/06/24 09/07/24 17:25 20:20 06:18 WBC Immature Gran # Neutrophils # Monocytes # Eosinophils # Carbon Dioxide Anion Gap BUN BUN/Creatinine Ratio Glucose POC Glucose (mg/dL) 300 H 182 H 193 H Hemoglobin A1c Calcium Alkaline Phosphatase 09/07/24 09/07/24 09/07/24 12:16 17:18 20:02 WBC Immature Gran # Neutrophils # Monocytes # Eosinophils # Carbon Dioxide Anion Gap BUN BUN/Creatinine Ratio Glucose POC Glucose (mg/dL) 221 H 265 H 391 H Hemoglobin A1c Calcium Alkaline Phosphatase 09/08/24 09/08/24 09/08/24 04:21 04:21 06:26 WBC 10.56 H Immature Gran # 0.06 H Neutrophils # 9.11 H Monocytes # 0.15 L Eosinophils # 0 L Carbon Dioxide Anion Gap 14.00 H BUN BUN/Creatinine Ratio 22.12 H Glucose 314 H POC Glucose (mg/dL) 262 H Hemoglobin A1c Calcium 10.4 H Alkaline Phosphatase 09/08/24 09/08/24 09/08/24 12:02 17:25 20:15 WBC Immature Gran # Neutrophils # Monocytes # Eosinophils # Carbon Dioxide Anion Gap BUN BUN/Creatinine Ratio Glucose POC Glucose (mg/dL) 370 H 310 H 246 H Hemoglobin A1c Calcium Alkaline Phosphatase 09/09/24 09/09/24 09/09/24 06:25 07:35 07:35 WBC 15.9 H Immature Gran # Neutrophils # 11.9 H Monocytes # Eosinophils # Carbon Dioxide 31 H Anion Gap BUN 27 H BUN/Creatinine Ratio Glucose 184 H POC Glucose (mg/dL) 198 H Hemoglobin A1c Calcium Alkaline Phosphatase 09/09/24 11:35 WBC Immature Gran # Neutrophils # Monocytes # Eosinophils # Carbon Dioxide Anion Gap BUN BUN/Creatinine Ratio Glucose POC Glucose (mg/dL) 302 H Hemoglobin A1c Calcium Alkaline Phosphatase - Diagnostic Findings Chest x-ray: image reviewed Assessment and Plan Assessment: Left-sided chest pain, acute coronary syndrome ruled out Neck pain with right upper extremity weakness. Found to have herniation and stenosis in C3-C7 and the plan is for surgical intervention with ACDF tomorrow September 10, 2024 History of coronary artery disease with previous placement and subsequent coronary artery bypass grafting in December 2023 History of left-sided pleural effusion status post thoracentesis in January 2024 Diabetes mellitus Hypertension Hyperlipidemia Rheumatoid arthritis Former smoker Chronic obstructive pulmonary disease, mild, only on albuterol as needed, rarely used Plan: The patient was seen and evaluated Chest x-ray, labs and medications reviewed Currently stable and on room air No pulmonary complaints Cleared for surgery from the pulmonary standpoint We will follow in the postoperative period I have personally seen and examined the patient, performed the documentation and the assessment and plan as written. Number of minutes spent on the visit: 20 Dictation was produced using [employer] dictation software. Please excuse any grammatical, word or spelling errors.
[2024-09-09 16:37] LABS: Glucose,Whole Blood 477 mg/dL (70-110)
[2024-09-09 20:27] LABS: Glucose,Whole Blood 145 mg/dL (70-110)
[2024-09-09] MEDS: INSULIN DETEMIR (LEVEMIR) 100 UNIT/ML SYR SQ SCH (20:52)
[2024-09-10 06:23] LABS: Glucose,Whole Blood 213 mg/dL (70-110)
[2024-09-10 08:43] LABS: Basophils # (A) 0.02 X 10*3/uL (0.00-0.10); Basophils % (A) 0.1 %; Eosinophils # (A) 0 X 10*3/uL (0.04-0.35); Eosinophils % (A) 0 %; HCT 41.3 % (37.2-46.3); HGB 14.1 g/dL (12.0-15.0); Lymphocytes # (A) 2.01 X 10*3/uL (0.90-5.00); Lymphocytes % (A) 14.2 %; MCH 29.9 pg (27.0-32.0); MCHC 34.1 g/dL (32.0-37.0); MCV 87.5 FL (80.0-97.0); Mean Platelet Volume 10.5 FL (9.5-12.2); Monocytes # (A) 0.27 X 10*3/uL (0.20-1.00); Monocytes % (A) 1.9 %; NRBC Per 100 WBC 0 X 10*3/uL (0.00-0.01); Neutrophils # (A) 11.82 X 10*3/uL (1.80-7.70); Neutrophils % (A) 83.2 %; Platelet Count 306 X 10*3/uL (140-440); RBC 4.72 X 10*6/uL (4.10-5.20); RDW 12.3 % (11.5-14.5)
[2024-09-10 08:50] LABS: BUN/Creat Ratio 34.25 Ratio (12.00-20.00); Blood Urea Nitrogen 27.4 mg/dL (9.0-27.0); Calcium 10.1 mg/dL (8.7-10.3); Carbon Dioxide 24.4 mmol/L (21.6-31.8); Chloride 102 mmol/L (96-109); Glucose 220 mg/dL (70-110); Potassium 4.6 mmol/L (3.5-5.5); Sodium 140 mmol/L (135-145)
--- NOTE | 2024-09-10 09:55 | CDI ---
Documentation Clarification Form Date: 09/10/2024 09:51:47 AM From: Dayanna Kong RN, CCDS Phone: [phone] Admit Date: 09/08/2024 10:45:00 AM Patient Name: Eleazar Balbuena Visit Number: [id number] Discharge Date: ATTENTION: The Clinical Documentation Specialists (CDI) and [facility] Coding Staff appreciate your assistance in clarifying documentation. Please respond to the clarification below the line at the bottom and electronically sign. The CDI & [facility] Coding staff will review the response and follow-up if needed. Please note: Queries are made part of the Legal Health Record. If you have any questions, please contact the author of this message via ITS. Doctor Haroon Colin Type 2 Diabetes is documented in the ongoing progress notes starting on 09/08/24. Hyperglycemia uncontrolled is also documented without further clarification. Additional specificity regarding the diabetes diagnosis is requested. History/Risk Factors: Asthma, Coronary Artery Disease (CAD), COPD, Diabetes Mellitus Hyperlipidemia, Hypertension, Clinical Indicators: 53-year-old female with history of Diabetes Mellitus has documentation of hyperglycemia uncontrolled. Serum glucose level 138, 314, 184, 220 HbA1c 9.7 Treatment: Accu-checks and sliding scale insulin Continue monitor serum glucose level Please clarify the type of diabetes, if known: [ x ] Diabetes Type 2 with Hyperglycemia [ ] Other, please specify [ ] Unable to Determine (Template Last Revised: December 2020) MTDD
[2024-09-10] MEDS: FERROUS SULFATE 325 MG TAB PO SCH (10:17)
[2024-09-10 11:18] LABS: Glucose,Whole Blood 183 mg/dL (70-110)
--- NOTE | 2024-09-10 13:51 | P.PN ---
Subjective Progress Note Date: 09/10/24 This is a very pleasant 53-year-old female patient with a known history of coronary artery disease with previous stent placement and subsequent coronary artery bypass grafting in December 2023. She had developed left-sided pleural effusions and had undergone a thoracentesis in January 2024. She also has a hi story of diabetes mellitus, hypertension, hyperlipidemia, rheumatoid arthritis. She also has a remote smoking history. She follows with an outside nuclear technician for COPD. She is only on albuterol that she rarely uses at home. No pulmonary complaints. She presented here on September 05, 2024 with complaints of left-sided chest discomfort. EKG revealed sinus rhythm with no acute ST or T wave abnormalities. Some minimal plate atelectasis and scarring of the left lung base. White count 15.9. Hemoglobin 14.0. Platelets 274. Sodium 141. Potassium 4.2. Bicarb 31. BUN 27. Creatinine 0.61. Glucose 184. She also had complaints of neck pain with right upper extremity weakness. RI of the cervical spine revealed disc herniations at C3-4 where extruded component is difficult to exclude. There is ventral cord contact without central stenosis. Disc herniations at C5-6 and C6-C7. Resultant central stenosis noted. She is scheduled for surgical intervention at C3-C7 ACDF tomorrow with Dr. Head 7. We were asked to see the patient for pulmonary clearance. She is seen today on the regular medical floor. She is resting quite comfortably in bed. Awake and alert in no acute distress. She has no pulmonary complaints. No shortness of breath, cough or congestion. No chest tightness or wheezing. Maintaining good O2 saturations up to 100% on room air. She has been afebrile. Hemodynamically stable. The patient is seen today September 10, 2024 in follow-up on the regular medical floor. She is currently sitting up in bed. Awake and alert in no acute distress. She is maintaining good O2 saturations in the 90s on room air. She has lactated Ringer's at 50 mL/h. She is awaiting to go to surgery today. White count 14.2. Hemoglobin 14.1. Platelets 306. Sodium 140. Potassium 4.6. Bicarb 24. BUN 27. Creatinine 0.8. Glucose 220. Objective - Vital Signs Vital signs: Vital Signs Temp 98.0 F 09/10/24 13:10 Pulse 65 11/20/24 13:10 Resp 15 09/10/24 13:10 BP 150/75 09/10/24 13:10 Pulse Ox 95 09/10/24 13:10 FiO2 Intake & Output 09/09/24 09/10/24 09/10/24 18:59 06:59 18:59 Intake Total 400 2270 Output Total 1000 Balance 400 1270 Intake: Intake, IV Titration 400 Amount Lactated Ringers 1,000 ml 400 @ 50 mls/hr IV .Q20H [facility] Rx#:[id number] Oral 2270 Output: Urine 1000 Other: Voiding Method Toilet Toilet # Voids 3 6 # Bowel Movements 1 - Exam GENERAL EXAM: Alert, 53-year-old female, on room air, comfortable in no apparent distress. HEAD: Normocephalic. EYES: Normal reaction of pupils, equal size. NOSE: Clear with pink turbinates. THROAT: No erythema or exudates. NECK: No masses, no JVD. CHEST: No chest wall deformity. LUNGS: Equal air entry with no crackles, wheeze, rhonchi or dullness. CVS: S1 and S2 normal with no audible murmur, regular rhythm. ABDOMEN: No hepatosplenomegaly, normal bowel sounds, no guarding or rigidity. SPINE: No scoliosis or deformity SKIN: No rashes CENTRAL NERVOUS SYSTEM: No focal deficits, tone is normal in all 4 extremities. EXTREMITIES: There is no peripheral edema. No clubbing, no cyanosis. P eripheral pulses are intact. - Labs CBC & Chem 7: 09/10/24 05:53 09/10/24 05:53 Labs: Abnormal Lab Results - Last 24 Hours (Table) 09/09/24 09/09/24 09/10/24 Range/Units 16:35 20:25 05:53 WBC 14.20 H (4.50-10.00) X 10*3/uL Immature Gran # 0.08 H (0.00-0.04) X 10*3/uL Neutrophils # 11.82 H (1.80-7.70) X 10*3/uL Eosinophils # 0 L (0.04-0.35) X 10*3/uL Anion Gap (4.00-12.00) mmol/L BUN (9.0-27.0) mg/dL BUN/Creatinine Ratio (12.00-20.00) Ratio Glucose (70-110) mg/dL POC Glucose (mg/dL) 477 H 145 H (70-110) mg/dL 09/10/24 09/10/24 09/10/24 Range/Units 05:53 06:22 11:15 WBC (4.50-10.00) X 10*3/uL Immature Gran # (0.00-0.04) X 10*3/uL Neutrophils # (1.80-7.70) X 10*3/uL Eosinophils # (0.04-0.35) X 10*3/uL Anion Gap 13.60 H (4.00-12.00) mmol/L BUN 27.4 H (9.0-27.0) mg/dL BUN/Creatinine Ratio 34.25 H (12.00-20.00) Ratio Glucose 220 H (70-110) mg/dL POC Glucose (mg/dL) 213 H 183 H (70-110) mg/dL Assessment and Plan Assessment: Left-sided chest pain, acute coronary syndrome ruled out Neck pain with right upper extremity weakness. Found to have herniation and stenosis in C3-C7 and the plan is for surgical intervention with ACDF today September 10, 2024 History of coronary artery disease with previous placement and subsequent coron brian artery bypass grafting in December 2023 History of left-sided pleural effusion status post thoracentesis in January 2024 Diabetes mellitus Hypertension Hyperlipidemia Rheumatoid arthritis Former smoker Chronic obstructive pulmonary disease, mild, only on albuterol as needed, rarely used Plan: The patient was seen and evaluated Labs and medications reviewed Currently stable and on room air Plan is for surgery today We will follow in the postoperative period I have personally seen and examined the patient, performed the documentation and the assessment and plan as written. Number of minutes spent on the visit: 10 Dictation was produced using [employer] dictation software. Please excuse any grammatical, word or spelling errors.
--- NOTE | 2024-09-10 14:30 | P.PN ---
Subjective Progress Note Date: 09/10/24 This is a 53-year-old female with history of CAD status post CABG in December 2023, type 2 diabetes, cervical radiculopathy, GERD, rheumatoid arthritis and COPD presents the ER with progressively worsening chest pain associated with shortness of breath started this morning. Patient describes the pain as sharp and heavy and it mainly on the right side shooting across to the left side as well as in the midsternal area radiating down into the epigastric area. Her pain is exacerbated with deep breaths, and after eating heavy meals. It is alleviated with nitrate and with rest. Patient has been endorsing sharp intermittent centrally located chest pain sometime radiating across her chest since she got her CABG procedure. Today, patient was trying to catch the bus to go to dental office when she st arted to experience worsening chest pain associated with short of breath. She felt very winded and lethargic and had to struggle to get onto the bus. At the dental office, her blood pressure was in 160s over 90s and also started to experience some paresthesia in her right arm which prompted her to come to the ER for further assessment. Patient denies recent fall or trauma to the chest. Patient denies any recent travel history, recent upper respiratory tract infection, use of illicit drug. Patient is currently on dual antiplatelet therapy with aspirin and Plavix. Patient denies orthopnea, PND and swelling of legs. Of note, patient has a history of multilevel degenerative disc disease and has been experiencing paresthesia chronically in her right arm which she said has gotten worse in the last 3 weeks. He has been taking [id number] medication as well as she is on gabapentin which provides her minimal relief. At the time of interview, patient is still complaining of chest pain as well as tingling in her right arm. However she is not complaining of any shortness of breath, dizziness, nausea, vomiting, abdominal discomfort. Labs and images: Lab evaluation in the ER shows troponin I less than 0.012, lipase 196, WBC of 7.9, hemoglobin 12.6, MCV 87.9, platelet count 209, sodium 140, potassium 3.5, bicarb 29, BUN 10, creatinine 0.56, glucose 175, magnesium 1.7, AST 22, ALT 20, alkaline phosphatase 142 Chest x-ray interpreted independently shows no acute cardiopulmonary process. EKG shows normal sinus rhythm with a rate of 73 bpm, no QTc prolongation. Flat T waves appreciated in lead aVL and V2. Poor R wave progression noted. 09/09/2024 patient seen and examined at bedside. Patient has no new complaints or worsening symptoms overnight. Vitals remained stable overnight. WBC 15.9 hemoglobin 14 platelet count 274 sodium 141 potassium 4.2 chloride 101 bicarb 31 BUN 27 creatinine 0.6 glucose 184 urine hCG negative 09/10/2024 patient seen and examined at bedside. Patient has no new complaints or worsening symptoms overnight. Vitals remained stable overnight. WBC 14.2 hemoglobin 14.1 platelet count 306,000 sodium 140 potassium 4.6 BUN 27.4 creatinine 0.8 glucose 220 calcium 10.1 Physical examination: Vital signs reviewed General: non toxic, no distress, appears at stated age Derm: no unusual rashes/lesions, warm Head: atraumatic, normocephalic, symmetric Eyes: EOMI, anicteric sclera, pupils equal round reactive to light ENT: Nose and ears atraumatic Neck: No cervical lymphadenopathy, trachea midline, supple Mouth: no lip lesion, mucus membranes moist Cardiovascular: S1S2 reg, no murmur, positive dorsalis pedis pulse bilateral, no extremity edema Lungs: CTA bilateral, no rhonchi, no rales, no accessory muscle use Abdominal: soft, nontender to palpation, no guarding Ext: muscle strength 4/5 in RUE, 5 out of 5 in all 3 extremities grossly, no gross muscle atrophy, no contractures Neuro: CN II-XI grossly intact, no gross focal neuro deficits Psych: Alert, oriented, appropriate affect Assessment and Plan: This is a 53-year-old female with history of CAD status post CABG in December 2023, type 2 diabetes, cervical radiculopathy, GERD, rheumatoid arthritis and COPD presents the ER with progressively worsening chest pain associated with shortness of breath started this morning. ED documentation reviewed and case discussed with ED provider. Patient admitted to internal medicine service for chest pain to rule out ACS. Found to have C3-C7 spondylosis on Cervical spine MRI. # C3-C7 spondylosis with stenosis #Right upper extremity paresthesia Cervical spine CT on 06/26/2024 shows C3-C4 central disc protrusion with moderate spinal stenosis C-spine MRI resulted show C3/C7 severe stenosis with C5-C6 and C6-C7 myelomalacia Orthopedic spine surgery following, will do C3 C7 ACDF scheduled today N.p.o. at midnight Hold dexamethasone 4mg q6h. Will reassess need post-op Continue with outpatient rehab Resume gabapentin 300 mg p.o. twice daily Resume tizanidine 2 mg p.o. twice daily Pain control with Tylenol 650 mg p.o. every 6 hours as needed Cleared for surgery on medicine standpoint #. Non-insulin dependent diabetes, glucose controlled Serum glucose level 220 HbA1c 9.7 Decreased Levemir to 7 units for tonight before procedure. Will increase again to 14 units. Continue Accu-Cheks Hold sliding scale insulin night before procedure. Will resume postop BMP at a.m. # Atypical chest pain, ACS ruled out #History of CAD status post CABG Chest x-ray interpreted independently shows no acute cardiopulmonary process. EKG shows normal sinus rhythm with a rate of 73 bpm, no QTc prolongation. Flat T waves appreciated in lead aVL and V2. Poor R wave progression noted. Resume aspirin 81 mg p.o. daily and Plavix 75 mg p.o. daily Troponin trend: Negative Lipid panel: Triglyceride 100, cholesterol 161, LDL 93, HDL 48, Resume Imdur 30 mg p.o. daily Resume Protonix 40 mg p.o. daily Consult cardiology for clearance Continue cardiac monitoring Chronic conditions: # Hypertension Continue amlodipine 2.5 mg p.o. daily hold hydrochlorothiazide 25 mg p.o. daily before procedure continue losartan 25 mg p.o. at bedtime # GERD/acid reflux Continue Protonix 40 mg p.o. daily Monitor CBC and BMP F: NPO E: Replete as needed N: N.p.o. A: Ambulatory without assist DVT prophylaxis: Heparin subcu GI prophylaxis: Protonix 40 mg p.o. daily CODE STATUS: Full code Discussed with: Patient Anticipated discharge place: Home I saw and evaluated the patient during the smith and critical portions of this encounter, and discussed the case in detail with the resident author of this note, I agree with the Assessment and Plan, and my changes, if any, are mentioned below. Plans for OR today. Objective - Vital Signs Vital signs: Vital Signs Temp 97.2 F L 09/10/24 01:50 Pulse 63 09/10/24 01:50 Resp 15 09/10/24 01:50 BP 132/76 09/10/24 01:50 Pulse Ox 100 09/10/24 01:50 FiO2 Intake & Output 09/09/24 09/10/24 09/10/24 18:59 06:59 18:59 Intake Total 400 2270 Output Total 1000 Balance 400 1270 Intake: Intake, IV Titration 400 Amount Lactated Ringers 1,000 ml 400 @ 50 mls/hr IV .Q20H [facility] Rx#:[id number] Oral 2270 Output: Urine 1000 Other: Voiding Method Toilet Toilet # Voids 3 6 # Bowel Movements 1 - Labs CBC & Chem 7: 09/10/24 05:53 09/10/24 05:53 Labs: Abnormal Lab Results - Last 24 Hours (Table) 09/09/24 09/09/24 09/09/24 Range/Units 07:35 07:35 11:35 WBC 15.9 H (3.8-10.6) k/uL Neutrophils # 11.9 H (1.3-7.7) k/uL Carbon Dioxide 31 H (22-30) mmol/L BUN 27 H (7-17) mg/dL Glucose 184 H (74-99) mg/dL POC Glucose (mg/dL) 302 H (70-110) mg/dL 09/09/24 09/09/24 09/10/24 Range/Units 16:35 20:25 06:22 WBC (3.8-10.6) k/uL Neutrophils # (1.3-7.7) k/uL Carbon Dioxide (22-30) mmol/L BUN (7-17) mg/dL Glucose (74-99) mg/dL POC Glucose (mg/dL) 477 H 145 H 213 H (70-110) mg/dL
[2024-09-10] MEDS: ONDANSETRON 4 MG/2 ML VIAL IVP STA (15:12)
[2024-09-10 15:17] LABS: Glucose,Whole Blood 183 mg/dL (70-110)
[2024-09-10] MEDS: IV FLUID CONTINUATION 1,000 ML IV ONE ×2 (15:38→15:39)
[2024-09-10] MEDS ORDERED: TRANEXAMIC ACID 1,000 MG in SODIUM CHLORIDE 0.9% 100 ML IRRIGATION PRN (16:58)
[2024-09-10] MEDS ORDERED: TRANEXAMIC 1,000 MG/100ML-NACL PREMIX BAG ONE (17:25)
[2024-09-10] MEDS ORDERED: PROPOFOL 10 MG/ML 20 ML VIAL IV ONE (17:25)
[2024-09-10] MEDS ORDERED: fentaNYL (PF) 50 MCG/ML 2 ML AMP ONE (17:25)
[2024-09-10] MEDS ORDERED: HYDROmorphone (PF) 1 MG/ML ONE (17:25)
[2024-09-10] MEDS ORDERED: MIDAZOLAM 2 MG/2 ML VIAL ONE (17:25)
[2024-09-10] MEDS ORDERED: ROCURONIUM 10 MG/ML (5 ML VIAL) IV ONE (17:25)
[2024-09-10] MEDS ORDERED: SUCCINYLCHOLINE CHLORIDE 200 MG/10 ML VIAL IV ONE (17:25)
[2024-09-10] MEDS ORDERED: KETAMINE HCL IN 0.9 % NACL 50 MG/5 ML SYRINGE ONE (17:25)
[2024-09-10] MEDS ORDERED: LABETALOL 5 MG/ML VIAL MDV ONE (17:25)
[2024-09-10] MEDS ORDERED: GLYCOPYRROLATE 0.2 MG/ML 2 ML VIAL ONE (17:25)
[2024-09-10] MEDS ORDERED: LIDOCAINE 1% INJ 10MG/ML (20 ML MDV) ONE (17:25)
[2024-09-10] MEDS ORDERED: NEOSTIGMINE 1 MG/ML 10 ML VIAL ONE (17:25)
--- NOTE | 2024-09-10 18:16 | P.ANPRN ---
Procedure Note - Anesthesia - Invasive Line Right Arterial Line Time Out Performed: Yes (1602) Date of Procedure: 09/10/24 Time of Procedure: 16:03 Location of Patient: PreOp Preparation: Sterile Prep, Sterile Dressing Arterial Line Location: Radial (right) Ultrasound Used: Yes Purpose - Visualization and Identification of Vasculature: Yes Needle Guage: 20g Image Stored and Saved: Yes Narrative: Invasive line placement per sterile protocol utilized.
[2024-09-10] MEDS ORDERED: DEXTROSE 50% SYRINGE 50 ML IVP PRN ×2 (18:28)
[2024-09-10] MEDS: THROMBIN (BOVINE) 5,000 UNIT VIAL TOPICAL ONE (18:31)
--- NOTE | 2024-09-10 21:02 | P.PN ---
Progress Note - Text Progress Note Date: 09/10/24 BRIEF POST OP: DX: CERVICAL DISC HERNIATION WITH STENOSIS AND MYELOPATHY C3-7 PROCEDURE: C3-7 ACDF COMPLICATIONS: NONE SURGEON: NAOMI ASSIST: NICKIE ANESTHESIA: GETA EBL: 50 CC FLUIDS: 1500 CC URINE: 450 CC DISPO: STABLE TO PACU POST OP PLAN: TRANSFER TO FLOOR WHEN AWAKE AND STABLE C COLLAR POST OP CT SCAN FOR HARDWARE AND ALIGNMENT ASSESSMENT NO BLTPP > 10 LBS PT/OT DAILY PAIN CONTROL PRN GI/DVT PPX OK TO RESUME TOMORROW
[2024-09-10] MEDS ORDERED: HYDROcodone/APAP 5-325MG 1 EACH TAB PO PRN (21:09)
[2024-09-10] MEDS: HYDROmorphone 0.5 MG/0.5 ML SYRINGE IVP PRN ×2 (21:19)
[2024-09-10] MEDS: INSULIN ASPART (NovoLOG) 100 UNIT/ML VIAL SQ SCH (21:39)
[2024-09-10 21:41] LABS: Glucose,Whole Blood 272 mg/dL (70-110)
--- NOTE | 2024-09-10 21:44 | XR ---
EXAMINATION TYPE: XR cervical spine limited DATE OF EXAM: 09/10/2024 8:58 PM COMPARISON: Previous CT cervical spine study 09/10/2024. CLINICAL INDICATION: Female, 53 years old with history of CERVICAL FUSION; H TECHNIQUE: 3 intraoperative fluoroscopic views of the cervical spine were obtained. FINDINGS: Intraoperative fluoroscopic views were submitted to radiology for interpretation. Radiopaque surgical instrument visualized overlying the C6 vertebral body on lateral view. Additional lateral view demon strates 2 surgical instruments with distal tips along the inferior and superior margins of the C3 duy tebral body. Final fluoroscopic image demonstrates anterior fusion hardware spanning C3-C6 with multi level intervertebral disc spacer devices. IMPRESSION: Intraoperative fluoroscopic radiographs of the cervical spine as above. [facility], , 09/10/2024 9:41 PM
--- NOTE | 2024-09-10 22:42 | FL ---
Intraoperative/procedural fluoroscopic services were provided for anterior cervical fusion involving C3-C6 with disc spacers. Total fluoroscopy time is 50.8 seconds with a total of 5 submitted images to PACS. Total DAP 1.4982 Gycm2. Please see the operative note for further details. [facility], , 09/10/2024 10:40 PM
[2024-09-10] MEDS: INSULIN DETEMIR (LEVEMIR) 100 UNIT/ML SYR SQ SCH (22:50)
[2024-09-10] MEDS: HYDROcodone/APAP 10-325MG 1 EACH TAB PO PRN (22:52)
[2024-09-10] MEDS: LACTATED RINGERS 1,000 ML IV SCH (23:07)
[2024-09-11] MEDS: HYDROmorphone 1 MG/ML 1 ML SYRINGE IVP PRN (00:19)
--- NOTE | 2024-09-11 00:26 | CT ---
EXAMINATION TYPE: CT cervical spine wo con DATE OF EXAM: 09/11/2024 COMPARISON: Prior CT cervical spine May 30, 2024 HISTORY: s/p C3-C7 ACDF CT DLP: 337.9 mGycm. Automated Exposure Control for Dose Reduction was Utilized. TECHNIQUE: CT scan of the cervical spine is obtained without contrast, axial images are obtained, sa gittal and coronal reformatted images are also reviewed. FINDINGS: Cervical spine is visualized in its entirety from C1 through upper thoracic levels, there i s new artificial disc material and anterior fusion devices from C3-C4 through the C6-C7 levels. Verte bral body heights and disc space heights are maintained above and below surgical levels. Some air in the anterior spinal canal at C3-C4 and C4-C5 level is seen presumably postoperative. Alignment is sta ble and satisfactory. There is new percutaneous right sided surgical drain terminating at right anter ior C5 level. There is some ill-defined fluid and air in the anterior soft tissue greatest right of m idline extending into the superior mediastinum. Thyroid gland remains within normal limits. Lung apic es show no pneumothorax. IMPRESSION: Interval surgical change C3-C7 levels with satisfactory alignment. [facility], , 09/11/2024 12:24 AM
[2024-09-11] MEDS: ONDANSETRON 4 MG/2 ML VIAL IVP PRN (02:57)
[2024-09-11 06:44] LABS: Glucose,Whole Blood 216 mg/dL (70-110)
--- NOTE | 2024-09-11 07:19 | P.OP ---
Date of Procedure: 09/10/24 Preoperative Diagnosis: 1. 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 C4-5 HNP, LARGE WITH MYELOPATHY 3. C5-6 HNP, LARGE WITH MYELOPATHY 4. C6-7, HNP, LARGE WITH MYELOPATHY 5. C3-7 SPONDYLOSIS 6. UE RADICULOPATHY 7. UE WEAKNESS Postoperative Diagnosis: 1. 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 C4-5 HNP, LARGE WITH MYELOPATHY 3. C5-6 HNP, LARGE WITH MYELOPATHY 4. C6-7, HNP, LARGE WITH MYELOPATHY 5. C3-7 SPONDYLOSIS 6. UE RADICULOPATHY 7. UE WEAKNESS Procedure(s) Performed: 1. C3-4 ANTERIOR CERVICAL ARTHRODESIS 2. C4-5 ANTERIOR CERVICAL ARTHRODESIS 3. C5-6 ANTERIOR CERVICAL ARTHRODESISV 4. C6-7 ANTERIOR CERVICAL ARTHRODESIS 5. C3-4, C4-5, C5-6, C6-7 ANTERIOR INSTRUMENTATION 6. C3-4, C4-5, C5-6, C6-7 INSERTION OF BIOMECHANICAL DEVICES, CAGES X4 USE OF IONM USE OF IO MICROSCOPE Implants: ALANA ANCHOR C 7MMX2, 8MMX2 CAGES ALANA ANCHOR C SCREWS 10-12MM MAGNATOS, AUTOGRAFT Anesthesia: GETA Surgeon: Timur Pettit Maternity Floor Supervisor #1: Jacquelin Gibson (WAS PRESENT AND ASSISTED WITH ALL ASPECTS OF THE CASE FROM POSITIONING TO DRESSING PLACEMENT) Estimated Blood Loss (ml): 50 IV fluids (ml): 1,500 Urine output (ml): 450 Pathology: none sent Condition: stable Disposition: PACU Indications for Procedure: Spine Surgery Clinical and Risk Review Eleazar Balbuena is a 53-year-old female presenting for evaluation of upper extremity pain upper extremity weakness right upper extremity paresthesias. It was my pleasure to have seen and examined Eunice. In our visit today we have had a chance to go over subjective complaints, physical examination findings and treatments including the natural course history without intervention and various interventional options. The patients imaging demonstrates multilevel degenerative changes with multilevel disc herni ation with large disc herniations at C3-4 C4-5 C5-6 and C6-7 causing severe stenosis there is mild malacia at C3 C4-C5-C6 and C6-C7 with severe cord compression. There is kyphosis at C3-C4. No acute fractures are noted. On physical exam, Eunice demonstrates right upper extremity weakness hyperreflexia Marty's bilaterally 4- out of 5 strength in bilateral upper extremity major muscle groups. Difficulty with fine motor. Difficulty with gait. I have explained to the patient that as their condition progresses it will cause further neurological deficits and eventual paralysis. Based on the patients imaging, physical exam, and the rapid progression and disabling nature of their symptoms, at this time I recommend surgery in the form or a: C3-C7 anterior cervical discectomy and fusion. I discussed the risk and benefits of this procedure at length with Eunice. The patient daughter parents and significant other agreed to considered pursuing the procedure abovementioned. Prior to surgery, she should follow up with her PCP (Cardio, ID, IM etc) for clearance. Questions were invited and answered, and the patient wishes to proceed as outlined below. Currently, I am recommendin. C3-7 anterior cervical discectomy and fusion 2. Follow up with PCP for surgical clearance 3. Review of surgical risks and benefits as well as an educational packet on the proposed surgical procedure. Risks: All surgical procedures come with inherent risks, including those related to positioning, anesthesia, intraoperative findings, and postoperative complications. It is important to understand that surgery does not come with any guarantee of a successful outcome as complications and adverse events are always possible. The patient was given a handout in office today discussing the surgical procedure and risks associated with the intervention, both of which were discussed with the patient. These risks include but are not limited to the following: Experiencing same, different or even worse symptoms in back, neck, arms, or legs compared to before surgery. Requiring further surgery or other forms of treatment presently or at some time in the future at same or other levels of the intended spine surgery. On an extreme but fortunately relatively rare basis severe complication such as blindness, stroke, heart attack, temporary and/or permanent nerve injury, paralysis, coma, or may occur, sometimes without known explanation. Surgical complications may include but are not limited to risk of infection, fluid accumulation in the surgical dissection site, including a seroma or hematoma, that requires additional surgery, wound drainage, bleeding, new numbness or weakness, vision changes/loss, spinal fluid leakage, non-healing and/or infected incision, headaches, difficulty or inability to swallow, hoarseness, hemopneumothorax, pneumothorax, impotence, retrograde ejaculation, vaginal dryness; injury to nerves, spinal cord, blood vessels, lymphatics or other vital organs (i.e., bowel injury, injury to the great vessels); heterotopic bone formation; complications related to the hardware such as screws, rods, cages including misplaced hardware, device failure, instrumentation at the wrong spine level, hardware fracture/breakage, or hardware loosening; vertebral failure of the spinal column above or below the newly placed hardware; retained surgical instrumentations or devices and the need for further surgery. Medical risks of the planned spine surgery include but are not limited to generalized Infections to the whole body or local areas outside of the surgical site (sepsis), heart attack, bleeding, anaphylaxis, meningitis, seizure, epilepsy, hearing loss, burn pagan, laceration of the head or other areas of the body, bruising, hypersensitivity of the skin, bladder over distension; allergic reaction; shoulder injury related to positioning; fat, blood and air clots to other areas of the body like heart, lungs, brain; failure of internal organs such as lungs, kidneys, liver and excessive bleeding. If blood transfusions are necessary, note that transfusions may cause intolerance reactions such as anaphylaxis or other complex reactions. Despite best efforts, the results of spine surgery might not heal in terms of bone, soft tissues such as skin, fascia, ligaments, and joints. Additionally, in order to achieve best possible results, spine surgery may be carried out beyond the initially planned levels and involve decompression, fusion including insertion of hardware at levels other than the original intended area of surgical interest change some portions of the procedure in order to ensure the best possible outcomes. With spine surgery and spinal fusion, there are different off label uses of instrumentation (devices, implants and hardware) as well as biological substances (bone morphogenic proteins, demineralized bone matrix) as well as using extra bone from allograft sources (i.e. cadaver bone) or autograft (iliac crest bone, ribs, or the spine itself). The patient has been given information about these practices and their inherent risks and benefits. The patient has had a chance to review all the listed information, has been given print outs detailing this information, and has had all his/her questions answered to their satisfaction. It was my pleasure to have seen and examined Eunice. In our visit today we have had a chance to go over my understanding of our patient's current condition, the natural course history without intervention and various interventional options. Questions were invited and answered, and the patient wishes to proceed as outlined above. I have seen and examined the patient for 25 minutes and we have spent more than 50% of the time in repeat and detailed counseling about the patient's condition, its natural course history with out and as much as can be predicted with surgery and re-review of various surgical treatment options. In conclusion, Eunice Balbuena and her family requested we proceed with the above suggested surgery and are willing to accept risks and limitations of the suggested surgery as nature of the disease process and our best attempts at treatment for the condition. Thank you again for allowing us to be part of your patient's care. Please don't hesitate to contact me if you have any further questions. Signed and authenticated by: Timur Wetzel [facility] [address] [place] [id number] Description of Procedure: C3-7 ACDF The patient was seen and examined in the preoperative area. All preoperative protocols were followed. Informed consent was obtained, risks and benefits of the procedure were discussed at length. Risks including bleeding infection damage to the surrounding tissue and risk of reoperation were discussed with the patient. Risk of anesthesia up to and including was discussed with the patient. These are outlined in the risk review. They were willing to accept these risks and all the risks of surgery. The patient was given a weight-based dose of antibiotics in the form of 2 g Ancef. The patient was seen and evaluated by the anesthesia team who deemed them fit for surgery. The site was marked, the patient was willing to proceed with the procedure. The patient was transferred to the operative suite by the Department of anesthesia. They were then drifted off to sleep by the department anesthesia and GETA was performed. The patient tolerated this well. Galdamez catheter was placed by nursing staff, a-traumatically. Once confirmation of lines and ventilation the patient was transferred to a Supine Oscar table very carefully. All bony prominences including wrists, elbows, axilla, chest, hips, and thighs, and feet were padded very well. Special attention was paid to the genitalia, and these were padded accordingly. SCDs were placed on bilateral lower extremities and were connected. Arms were well padded and placed at their side thumbs up. Once in position, again we confirmed good ventilation capabilities and that lines were running appropriately. The patients Cervical spine was then exposed. 1010s were placed outlining the incision site. Standard alcohol was used to clean the incision site and allowed to dry. C-arm was used to bio-brunilda the patient and confirm level for incision which was marked with a skin marker. Operative briefing was performed with all teams and everyone in agreement to proceed. The patient was then prepped and draped in a normal sterile fashion. Timeout was then performed, and all parties agreed with the procedure to be performed. Transverse skin incision was then made on the RIGHT side of the patient's neck 3 cm and dissection taken down to the platysma which was split transversely. Sub platysma flap was made, and interval identified between SCM and medial structures. Omohyoid was visualized and protected. Blunt dissection taken down to the anterior cervical fascia which was identified. Blunt probe was then placed and lateral image taken which confirmed levels for operation. These levels were then marked with a bovi. Subperiosteal dissection of the longissimus muscles were then done over these levels identifying uncovertebral joints bilaterally. Retractor was then placed deep to these muscles and held in place with a bed arm. Starting at C6-7, Tomball pins were placed into C6 and C7 and gentle distraction taken out over the levels. Samantha rongeur used to remove disc material. Operating microscope brought in for visualization. Complete discectomy performed at this level with curette, rongure and pituitary. High speed sandra used to remove osteophytes anteriorly and posteriorly until PLL was identified. 6-0 up curette then used to identify the canal and resect the PLL. 2-0 and 3-0 Kerrison used then to remove PLL and disc herniation and performed b/l foraminotomies. Once good decompression was accomplished, meticulous hemostasis was performed. Sizers were then placed under lateral fluoroscopy until the desired height and lordosis. Cage was then selected, packed with autograft and allograft and placed under lateral imaging. Once in good position it was tested and stable. Motors run before and after cage placement were stable. The wound was irrigated, and autograft placed lateral to the cage anteriorly for fusion. Tomball pin was then removed from C7 and placed into C5. Gentle distraction taken out over C5-6 now. Complete discectomy done at C5-6 as described including decompression, b/l foraminotomies and PLL resection. Burring of endplates was minimal, osteophytes removed as described. Spacers were then sized and placed under lateral imaging. Cage selected, packed with graft and placed under lateral images. Once in position, meticulous hemostasis performed, and motors remained stable before and after cage placement. AP image confirmed good placement of cages. Wound was irrigated. Tomball pin was then removed from C6 and placed into C4. Gentle distraction bernard en out over C4-5 now. Complete discectomy done at C4-5 as described including decompression, b/l foraminotomies and PLL resection. Burring of endplates was minimal, osteophytes removed as described. Spacers were then sized and placed under lateral imaging. Cage selected, packed with graft and placed under lateral images. Once in position, meticulous hemostasis performed, and motors remained stable before and after cage placement. AP image confirmed good placement of cages. Wound was irrigated. Tomball pin was removed from C5 and placed in C3. Gentle distraction taken out over C3-4 now. Complete discectomy done at C3-4 as described including decompression, b/l foraminotomies and PLL resection. Burring of endplates was minimal, osteophytes removed as described. Spacers were then sized and placed under lateral imaging. Cage selected, packed with graft and placed under lateral images. Once in position, meticulous hemostasis performed, and motors remained stable before and after cage placement. AP image confirmed good placement of cages. Wound was irrigated. Anterior instrumentation was then done at each level. Screws were drilled under lateral fluroscopy and placed with good purchased and locked in. AP and lateral confirmed good placement of anterior hardware. All locking mechanisms were set, and all screws had good purchase. Final AP and lateral images taken confirmed good placement of hardware and good reduction and latter day of height. The wound was then irrigated copiously with NSS. Surgicel placed deep in the wound. A deep drain placed out a separate incision and sewed into place. Layered closure then performed with 3-0 Vicryl in the platysma and subQ tissue. 4-0 Strata fix in the subcuticular tissue. The wound was then cleaned, and dried and skin glue placed. Once glue dried on Opifoam was placed. The patient was then transferred back to their hospital bed a-traumatically. The drain continued to hold suction. They were placed in a soft collar. They were then awakened by the department of anesthesia having tolerated the procedure well without complications.
[2024-09-11] MEDS: INSULIN ASPART (NovoLOG) 100 UNIT/ML VIAL SQ SCH (07:46)
[2024-09-11] MEDS: SENNOSIDES-DOCUSATE SODIUM 1 EACH TAB PO SCH (09:25)
[2024-09-11 10:32] LABS: Basophils # (A) 0.01 X 10*3/uL (0.00-0.10); Basophils % (A) 0.1 %; Eosinophils # (A) 0 X 10*3/uL (0.04-0.35); Eosinophils % (A) 0 %; HCT 35.2 % (37.2-46.3); HGB 11.7 g/dL (12.0-15.0); Lymphocytes # (A) 2.75 X 10*3/uL (0.90-5.00); Lymphocytes % (A) 18.7 %; MCHC 33.2 g/dL (32.0-37.0); MCV 87.1 FL (80.0-97.0); Mean Platelet Volume 10.1 FL (9.5-12.2); Monocytes # (A) 1.12 X 10*3/uL (0.20-1.00); Monocytes % (A) 7.6 %; NRBC Per 100 WBC 0 X 10*3/uL (0.00-0.01); Neutrophils # (A) 10.78 X 10*3/uL (1.80-7.70); Neutrophils % (A) 73.1 %; Platelet Count 262 X 10*3/uL (140-440); RBC 4.04 X 10*6/uL (4.10-5.20); RDW 12.4 % (11.5-14.5); WBC 14.73 X 10*3/uL (4.50-10.00)
[2024-09-11 10:58] LABS: BUN/Creat Ratio 25.38 Ratio (12.00-20.00); Blood Urea Nitrogen 20.3 mg/dL (9.0-27.0); Chloride 104 mmol/L (96-109); Glucose 203 mg/dL (70-110); Potassium 4.3 mmol/L (3.5-5.5); Sodium 141 mmol/L (135-145)
[2024-09-11] MEDS: PROCHLORPERAZINE INJ 10 MG/2 ML VIAL IVP PRN (11:29)
[2024-09-11] MEDS: ASPIRIN 81 MG PO SCH (11:30)
[2024-09-11 11:57] LABS: Glucose,Whole Blood 159 mg/dL (70-110)
--- NOTE | 2024-09-11 12:37 | P.PN ---
Subjective Progress Note Date: 09/11/24 This is a 53-year-old female with history of CAD status post CABG in December 2023, type 2 diabetes, cervical radiculopathy, GERD, rheumatoid arthritis and COPD presents the ER with progressively worsening chest pain associated with shortness of breath started this morning. Patient describes the pain as sharp and heavy and it mainly on the right side shooting across to the left side as well as in the midsternal area radiating down into the epigastric area. Her pain is exacerbated with deep breaths, and after eating heavy meals. It is alleviated with nitrate and with rest. Patient has been endorsing sharp intermittent centrally located chest pain sometime radiating across her chest since she got her CABG procedure. Today, patient was trying to catch the bus to go to dental office when she st arted to experience worsening chest pain associated with short of breath. She felt very winded and lethargic and had to struggle to get onto the bus. At the dental office, her blood pressure was in 160s over 90s and also started to experience some paresthesia in her right arm which prompted her to come to the ER for further assessment. Patient denies recent fall or trauma to the chest. Patient denies any recent travel history, recent upper respiratory tract infection, use of illicit drug. Patient is currently on dual antiplatelet therapy with aspirin and Plavix. Patient denies orthopnea, PND and swelling of legs. Of note, patient has a history of multilevel degenerative disc disease and has been experiencing paresthesia chronically in her right arm which she said has gotten worse in the last 3 weeks. He has been taking [id number] medication as well as she is on gabapentin which provides her minimal relief. At the time of interview, patient is still complaining of chest pain as well as tingling in her right arm. However she is not complaining of any shortness of breath, dizziness, nausea, vomiting, abdominal discomfort. Labs and images: Lab evaluation in the ER shows troponin I less than 0.012, lipase 196, WBC of 7.9, hemoglobin 12.6, MCV 87.9, platelet count 209, sodium 140, potassium 3.5, bicarb 29, BUN 10, creatinine 0.56, glucose 175, magnesium 1.7, AST 22, ALT 20, alkaline phosphatase 142 Chest x-ray interpreted independently shows no acute cardiopulmonary process. EKG shows normal sinus rhythm with a rate of 73 bpm, no QTc prolongation. Flat T waves appreciated in lead aVL and V2. Poor R wave progression noted. 09/09/2024 patient seen and examined at bedside. Patient has no new complaints or worsening symptoms overnight. Vitals remained stable overnight. WBC 15.9 hemoglobin 14 platelet count 274 sodium 141 potassium 4.2 chloride 101 bicarb 31 BUN 27 creatinine 0.6 glucose 184 urine hCG negative 09/10/2024 patient seen and examined at bedside. Patient has no new complaints or worsening symptoms overnight. Vitals remained stable overnight. WBC 14.2 hemoglobin 14.1 platelet count 306,000 sodium 140 potassium 4.6 BUN 27.4 creatinine 0.8 glucose 220 calcium 10.1 09/11/2024 patient seen and examined at bedside. Patient is status post C3-4 C4-5 C5-6 C6-7 arthrodesis with insertion of cages. Patient reported that her pain is controlled with pain medication. She has reported that she has urinated through the Galdamez catheter, is able to ambulate has not had bowel movement or flatus. WBC 14.73 hemoglobin 11 platelet count 262,000 sodium 141 potassium 4.3 bicarb 25 BUN 20 creatinine 0.8 glucose 203 calcium 9 morning cortisol 2.1 Physical examination: Vital signs reviewed General: non toxic, no distress, appears at stated age, on a c-collar Derm: no unusual rashes/lesions, warm, scar chest midline Head: atraumatic, normocephalic, symmetric Eyes: EOMI, anicteric sclera, pupils equal round reactive to light ENT: Nose and ears atraumatic Neck: No cervical lymphadenopathy, trachea midline, supple Mouth: no lip lesion, mucus membranes moist Cardiovascular: S1S2 reg, no murmur, positive dorsalis pedis pulse bilateral, no extremity edema Lungs: CTA bilateral, no rhonchi, no rales, no accessory muscle use Abdominal: soft, nontender to palpation, no guarding Ext: muscle strength 4/5 in RUE, 5 out of 5 in all 3 extremities grossly, no gross muscle atrophy, no contractures Neuro: CN II-XI grossly intact, no gross focal neuro deficits Psych: Alert, oriented, appropriate affect Assessment and Plan: This is a 53-year-old female with history of CAD status post CABG in December 2023, type 2 diabetes, cervical radiculopathy, GERD, rheumatoid arthritis and COPD presents the ER with progressively worsening chest pain associated with shortness of breath started this morning. ED documentation reviewed and case discussed with ED provider. Patient admitted to internal medicine service for chest pain to rule out ACS. Found to have C3-C7 spondylosis on Cervical spine MRI. # C3-C7 spondylosis with stenosis status post C3-4 C4-5 C5-6 C6-7 arthrodesis with insertion of cages #Right upper extremity paresthesia Cervical spine CT on 06/26/2024 shows C3-C4 central disc protrusion with moderate spinal stenosis C-spine MRI resulted show C3/C7 severe stenosis with C5-C6 and C6-C7 myelomalacia Orthopedic spine surgery following. Pain control optimized by primary surgical service Morning cortisol 2.1 IV hydrocortisone 25 mg daily. Goal to transition to oral by discharge, will likely need hydrocortisone and fludrocortisone p.o. Continue with outpatient rehab Resume gabapentin 300 mg p.o. twice daily Resume tizanidine 2 mg p.o. twice daily Pain control with Tylenol 650 mg p.o. every 6 hours as needed #. Non-insulin dependent diabetes, glucose controlled Serum glucose level HbA1c 9.7 Levemir 14 units SQ daily NovoLog 5 units ACHS Continue Accu-Cheks, monitor for hypoglycemia NovoLog sliding scale low-dose greater than 70 kg BMP at a.m. # Atypical chest pain, ACS ruled out #History of CAD status post CABG Chest x-ray interpreted independently shows no acute cardiopulmonary process. EKG shows normal sinus rhythm with a rate of 73 bpm, no QTc prolongation. Flat T waves appreciated in lead aVL and V2. Poor R wave progression noted. Discussed with orthopedic surgery, resume aspirin 81 mg p.o. daily Resume Plavix 75 mg p.o. tomorrow Troponin trend: Negative Lipid panel: Triglyceride 100, cholesterol 161, LDL 93, HDL 48, Resume Imdur 30 mg p.o. daily Resume Protonix 40 mg p.o. daily Cardiology following Continue cardiac monitoring Chronic conditions: # Hypertension Continue amlodipine 2.5 mg p.o. daily Resume hydrochlorothiazide 25 mg p.o. tomorrow continue losartan 25 mg p.o. at bedtime # GERD/acid reflux Continue Protonix 40 mg p.o. daily F: Oral intake E: None N: Consistent carbohydrate diet A: Ambulatory with assistance DVT prophylaxis: Heparin subcu GI prophylaxis: Protonix 40 mg p.o. daily CODE STATUS: Full code Discussed with: Patient Anticipated discharge place: Home Patient is severely ill, needs close monitoring. Prognosis guarded. I have seen and evaluated the patient today. Discussed with the resident and agree with the residents finding and plan as documented in the resident's note. Changes highlighted in blue font. Objective - Vital Signs Vital signs: Vital Signs Temp 98.4 F 09/10/24 22:28 Pulse 81 09/11/24 00:26 Resp 18 09/10/24 22:28 BP 112/64 09/11/24 00:26 Pulse Ox 96 09/11/24 00:26 FiO2 Intake & Output 09/10/24 09/11/24 09/11/24 18:59 06:59 18:59 Intake Total 1650 400 Output Total 1320 Balance 1650 -920 Weight 83.007 kg Intake: IV 1650 400 Output: Urine 1270 Uretheral (Galdamez) 625 Estimated Blood Loss 50 Other: Voiding Method Indwelling Catheter # Voids 6 - Labs CBC & Chem 7: 09/11/24 06:10 09/11/24 06:10 Labs: Abnormal Lab Results - Last 24 Hours (Table) 09/10/24 09/10/24 09/10/24 Range/Units 05:53 05:53 11:15 WBC 14.20 H (4.50-10.00) X 10*3/uL Immature Gran # 0.08 H (0.00-0.04) X 10*3/uL Neutrophils # 11.82 H (1.80-7.70) X 10*3/uL Eosinophils # 0 L (0.04-0.35) X 10*3/uL Anion Gap 13.60 H (4.00-12.00) mmol/L BUN 27.4 H (9.0-27.0) mg/dL BUN/Creatinine Ratio 34.25 H (12.00-20.00) Ratio Glucose 220 H (70-110) mg/dL POC Glucose (mg/dL) 183 H (70-110) mg/dL 09/10/24 09/10/24 09/11/24 Range/Units 15:13 21:31 06:42 WBC (4.50-10.00) X 10*3/uL Immature Gran # (0.00-0.04) X 10*3/uL Neutrophils # (1.80-7.70) X 10*3/uL Eosinophils # (0.04-0.35) X 10*3/uL Anion Gap (4.00-12.00) mmol/L BUN (9.0-27.0) mg/dL BUN/Creatinine Ratio (12.00-20.00) Ratio Glucose (70-110) mg/dL POC Glucose (mg/dL) 183 H 272 H 216 H (70-110) mg/dL
[2024-09-11 13:29] LABS: Glucose,Whole Blood 145 mg/dL (70-110)
[2024-09-11] MEDS: HYDROCORTISONE SUCCINATE 100 MG/2 ML VIAL IV SCH (13:42)
--- NOTE | 2024-09-11 14:14 | P.PN ---
Subjective Progress Note Date: 09/11/24 This is a very pleasant 53-year-old female patient with a known history of coronary artery disease with previous stent placement and subsequent coronary artery bypass grafting in December 2023. She had developed left-sided pleural effusions and had undergone a thoracentesis in January 2024. She also has a hi story of diabetes mellitus, hypertension, hyperlipidemia, rheumatoid arthritis. She also has a remote smoking history. She follows with an outside elastic cutter for COPD. She is only on albuterol that she rarely uses at home. No pulmonary complaints. She presented here on September 05, 2024 with complaints of left-sided chest discomfort. EKG revealed sinus rhythm with no acute ST or T wave abnormalities. Some minimal plate atelectasis and scarring of the left lung base. White count 15.9. Hemoglobin 14.0. Platelets 274. Sodium 141. Potassium 4.2. Bicarb 31. BUN 27. Creatinine 0.61. Glucose 184. She also had complaints of neck pain with right upper extremity weakness. RI of the cervical spine revealed disc herniations at C3-4 where extruded component is difficult to exclude. There is ventral cord contact without central stenosis. Disc herniations at C5-6 and C6-C7. Resultant central stenosis noted. She is scheduled for surgical intervention at C3-C7 ACDF tomorrow with Dr. Head 7. We were asked to see the patient for pulmonary clearance. She is seen today on the regular medical floor. She is resting quite comfortably in bed. Awake and alert in no acute distress. She has no pulmonary complaints. No shortness of breath, cough or congestion. No chest tightness or wheezing. Maintaining good O2 saturations up to 100% on room air. She has been afebrile. Hemodynamically stable. The patient is seen today September 10, 2024 in follow-up on the regular medical floor. She is currently sitting up in bed. Awake and alert in no acute distress. She is maintaining good O2 saturations in the 90s on room air. She has lactated Ringer's at 50 mL/h. She is awaiting to go to surgery today. White count 14.2. Hemoglobin 14.1. Platelets 306. Sodium 140. Potassium 4.6. Bicarb 24. BUN 27. Creatinine 0.8. Glucose 220. The patient is seen today September 11, 2024 in follow-up on the regular medical floor. She is up ambulating in her room. Awake and alert in no acute distress. She is maintaining O2 saturations in the 90s on room air. No IV fluids. She did undergo C3-C7 cervical arthrodesis. Post operative day #1. CT scan of the cervical spine today revealed interval surgical change C3-C7 levels with satisfactory alignment. C-collar in place. She is currently on Solu-Cortef. Heparin for DVT prophylaxis. White count 14.7. Hemoglobin 11.7. Platelets 262. Sodium 141. Potassium 4.3. Bicarb 25. BUN 20. Creatinine 0.8. Glucose 203. Objective - Vital Signs Vital signs: Vital Signs Temp 98.6 F 09/11/24 13:20 Pulse 76 09/11/24 13:20 Resp 19 09/11/24 13:20 BP 171/94 09/11/24 13:20 Pulse Ox 92 L 09/11/24 13:20 FiO2 Intake & Output 09/10/24 09/11/24 09/11/24 18:59 06:59 18:59 Intake Total 1650 400 Output Total 1320 Balance 1650 -920 Weight 83.007 kg Intake: IV 1650 400 Output: Urine 1270 Uretheral (Galdamez) 625 Estimated Blood Loss 50 Other: Voiding Method Indwelling Catheter # Voids 6 - Exam GENERAL EXAM: Alert, very pleasant 53-year-old female, on room air, up ambulating with assistance, comfortable in no apparent distress. HEAD: Normocephalic. EYES: Normal reaction of pupils, equal size. NOSE: Clear with pink turbinates. THROAT: No erythema or exudates. NECK: No masses, no JVD. C-collar in place. CHEST: No chest wall deformity. LUNGS: Equal air entry with no crackles, wheeze, rhonchi or dullness. CVS: S1 and S2 normal with no audible murmur, regular rhythm. ABDOMEN: No hepatosplenomegaly, normal bowel sounds, no guarding or rigidity. SPINE: No scoliosis or deformity SKIN: No rashes CENTRAL NERVOUS SYSTEM: No focal deficits, tone is normal in all 4 extremities. EXTREMITIES: There is no peripheral edema. No clubbing, no cyanosis. Peripheral pulses are intact. - Labs CBC & Chem 7: 09/11/24 06:10 09/11/24 06:10 Labs: Abnormal Lab Results - Last 24 Hours (Table) 09/10/24 09/10/24 09/11/24 Range/Units 15:13 21:31 06:10 WBC 14.73 H (4.50-10.00) X 10*3/uL RBC 4.04 L (4.10-5.20) X 10*6/uL Hgb 11.7 L (12.0-15.0) g/dL Hct 35.2 L (37.2-46.3) % Immature Gran # 0.07 H (0.00-0.04) X 10*3/uL Neutrophils # 10.78 H (1.80-7.70) X 10*3/uL Monocytes # 1.12 H (0.20-1.00) X 10*3/uL Eosinophils # 0 L (0.04-0.35) X 10*3/uL BUN/Creatinine Ratio (12.00-20.00) Ratio Glucose (70-110) mg/dL POC Glucose (mg/dL) 183 H 272 H (70-110) mg/dL Cortisol (3.1-22.4) UG/DL 09/11/24 09/11/24 09/11/24 Range/Units 06:10 06:42 11:54 WBC (4.50-10.00) X 10*3/uL RBC (4.10-5.20) X 10*6/uL Hgb (12.0-15.0) g/dL Hct (37.2-46.3) % Immature Gran # (0.00-0.04) X 10*3/uL Neutrophils # (1.80-7.70) X 10*3/uL Monocytes # (0.20-1.00) X 10*3/uL Eosinophils # (0.04-0.35) X 10*3/uL BUN/Creatinine Ratio 25.38 H (12.00-20.00) Ratio Glucose 203 H (70-110) mg/dL POC Glucose (mg/dL) 216 H 159 H (70-110) mg/dL Cortisol 2.1 L (3.1-22.4) UG/DL 09/11/24 Range/Units 13:27 WBC (4.50-10.00) X 10*3/uL RBC (4.10-5.20) X 10*6/uL Hgb (12.0-15.0) g/dL Hct (37.2-46.3) % Immature Gran # (0.00-0.04) X 10*3/uL Neutrophils # (1.80-7.70) X 10*3/uL Monocytes # (0.20-1.00) X 10*3/uL Eosinophils # (0.04-0.35) X 10*3/uL BUN/Creatinine Ratio (12.00-20.00) Ratio Glucose (70-110) mg/dL POC Glucose (mg/dL) 145 H (70-110) mg/dL Cortisol (3.1-22.4) UG/DL Assessment and Plan Assessment: Left-sided chest pain, acute coronary syndrome ruled out Neck pain with right upper extremity weakness. Found to have herniation and stenosis in C3-C7 and had surgical intervention with ACDF performed September 10, 2024 History of coronary artery disease with previous placement and subsequent coronary artery bypass grafting in December 2023 History of left-sided pleural effusion status post thoracentesis in January 2024 Diabetes mellitus Hypertension Hyperlipidemia Rheumatoid arthritis Former smoker Chronic obstructive pulmonary disease, mild, only on albuterol as needed, rarely used Plan: The patient was seen and evaluated Imaging, labs and medications reviewed C-collar in place Currently stable and on room air Increase her activity as tolerated I have personally seen and examined the patient, performed the documentation and the assessment and plan as written. Number of minutes spent on the visit: 10 Dictation was produced using [employer] dictation software. Please excuse any grammatical, word or spelling errors.
--- NOTE | 2024-09-11 15:06 | P.PN ---
Subjective Progress Note Date: 09/11/24 Principal diagnosis: Neck pain Right upper extremity weakness Right upper extremity radiculopathy Patient seen and examined this morning. Patient resting comfortably in bed. Samantha gutierrez does have family at bedside. Patient does report that she has ambulated in the hallways this morning, tolerating activity well. She does report that her pain is managed on current regimen. Informed patient that we we will be keeping the drain in extra day. Continue to monitor output. Surgical dressing to the anterior cervical spine is clean dry and intact hard cervical collar is in place . An order will be placed for soft cervical collar for her to take home. Informed patient that physical therapy will begin to work with her today. Continue to encourage patient to utilize incentive spirometer 10 times an hour while awake. No acute concerns. Objective - Vital Signs Vital signs: Vital Signs Temp 98.4 F 09/10/24 22:28 Pulse 81 09/11/24 00:26 Resp 18 09/10/24 22:28 BP 112/64 09/11/24 00:26 Pulse Ox 96 09/11/24 00:26 FiO2 Intake & Output 09/10/24 09/11/24 09/11/24 18:59 06:59 18:59 Intake Total 1650 400 Output Total 1320 Balance 1650 -920 Weight 83.007 kg Intake: IV 1650 400 Output: Urine 1270 Uretheral (Riley) 625 Estimated Blood Loss 50 Other: Voiding Method Indwelling Catheter # Voids 6 - Exam Physical Examination General: The patient is awake and alert, in no acute distress Skin: Skin is warm and dry with no obvious rashes or lesions. Surgical incision to the anterior cervical spine, dressing is clean dry intact with NAY drain present. Neck: The neck is supple, there is mild tenderness with palpation and limited ROM due to surgical procedure. hard cervical collar is intact. Cardiovascular: There is a regular rate and rhythm. Respiratory: Respirations are non-labored.. Gastrointestinal: Soft, non-distended, non-tender abdomen. Back: There is no tenderness to palpation in the midline, paralumbar, parathoracic or buttocks region. There is no obvious deformity. Musculoskeletal: ROM limited secondary to pain and stiffness from surgical procedure. Right: shoulder abduction 4/5, elbow flexors 4/5, wrist dorsiflexors 4-/5. finger abductor 4-/5, eyelet machine operator 4-/5, hip flexor 5/5, knee flexor 5/5, ankle dorsiflexor 5/5, ankle plantarflexion 5/5 and extensor hallucis 5/5. Left: shoulder abduction 5/5, elbow flexors 5/5, wrist dorsiflexors 5/5. finger abductor 5/5, eyelet machine operator 5/5, hip flexor 5/5, knee flexor 5/5, ankle dorsiflexor 5/5, ankle plantarflexion 5/5 and extensor hallucis 5/5. Neurological: CN 2-12 intact. There are no obvious motor or sensory deficits. Movement and coordination equal and intact. Sensory exam to light touch intact C5-T1 and intact from L2-S1. Reflexes 2/4 in bilateral upper and lower ex tremities. Negative Hoffmans, babinski, and clonus signs. Psychiatric: Cooperative, appropriate mood & affect, normal judgment. - Labs CBC & Chem 7: 09/11/24 06:10 09/11/24 06:10 Labs: Abnormal Lab Results - Last 24 Hours (Table) 09/10/24 09/10/24 09/10/24 Range/Units 05:53 05:53 11:15 WBC 14.20 H (4.50-10.00) X 10*3/uL Immature Gran # 0.08 H (0.00-0.04) X 10*3/uL Neutrophils # 11.82 H (1.80-7.70) X 10*3/uL Eosinophils # 0 L (0.04-0.35) X 10*3/uL Anion Gap 13.60 H (4.00-12.00) mmol/L BUN 27.4 H (9.0-27.0) mg/dL BUN/Creatinine Ratio 34.25 H (12.00-20.00) Ratio Glucose 220 H (70-110) mg/dL POC Glucose (mg/dL) 183 H (70-110) mg/dL 09/10/24 09/10/24 09/11/24 Range/Units 15:13 21:31 06:42 WBC (4.50-10.00) X 10*3/uL Immature Gran # (0.00-0.04) X 10*3/uL Neutrophils # (1.80-7.70) X 10*3/uL Eosinophils # (0.04-0.35) X 10*3/uL Anion Gap (4.00-12.00) mmol/L BUN (9.0-27.0) mg/dL BUN/Creatinine Ratio (12.00-20.00) Ratio Glucose (70-110) mg/dL POC Glucose (mg/dL) 183 H 272 H 216 H (70-110) mg/dL Assessment and Plan Assessment: Postop day 1: C3-C7 ACDF Plan: -Appreciate creative consultant and team management. -Activity: Ambulate QID, OOB all meals, up and about, limit lifting bending twisting to less than 5 lbs. Use walker or cane if needed for stability. -Daily PT/OT, increase ambulation strength and balance. -Hard cervical collar at all times when up and about. Soft cervical collar has been ordered for patient to utilize at night when discharged home. -Pain control: Adequate at this time -Meds: reviewed -GI ppx: senna, Miralax -DC riley when up and about, bedside commode if needed -DVT PPX: Aspirin 81mg daily -Hygiene: Maintain incision clean and dry. May change dressing as needed, please document in notes if perfromed. Meticulous cleaning after BMs away from the incision site -Drains: Maintain for now. Continue to monitor and record output q shift. -Encourage IS 10x/hr -Dispo: Anticipate discharge home with homecare. *I reviewed and discussed this case with my attending Dr. Pettit, whom has reviewed this chart and films and is in agreement with assessment and plan of care as outlined above. I have personally seen and examined the patient, performed the documentation and the assessment and plan as written. Number of minutes spent on the visit: 20m.
[2024-09-11 16:22] LABS: Glucose,Whole Blood 256 mg/dL (70-110)
[2024-09-11] MEDS: HEPARIN SODIUM,PORCINE 5,000 UNIT/ML 1 ML VIAL SQ SCH (17:10)
[2024-09-11 20:35] LABS: Glucose,Whole Blood 120 mg/dL (70-110)
[2024-09-12 06:29] LABS: Glucose,Whole Blood 159 mg/dL (70-110)
[2024-09-12 07:58] LABS: African American GFR (CKD) >90 (>60 ml/min/1.73 sqM); Anion Gap 7 mmol/L; Blood Urea Nitrogen 13 mg/dL (7-17); Calcium 8.8 mg/dL (8.4-10.2); Carbon Dioxide 27 mmol/L (22-30); Chloride 102 mmol/L (98-107); Glucose 162 mg/dL (74-99); Non-African American GFR(CKD) >90 (>60 ml/min/1.73 sqM); Potassium 3.9 mmol/L (3.5-5.1); Sodium 136 mmol/L (137-145)
[2024-09-12 08:10] LABS: Basophils % (A) 0 %; Eosinophils % (A) 0 %; HCT 37.1 % (34.0-46.0); HGB 12.3 gm/dL (11.4-16.0); Lymphocytes # (A) 3.2 k/uL (1.0-4.8); Lymphocytes % (A) 21 %; MCH 29.2 pg (25.0-35.0); MCHC 33.1 g/dL (31.0-37.0); Mean Platelet Volume 7.9; Monocytes % (A) 7 %; Neutrophils # (A) 10.3 k/uL (1.3-7.7); Neutrophils % (A) 70 %; Platelet Count 213 k/uL (150-450); RBC 4.21 m/uL (3.80-5.40); RDW 12.5 % (11.5-15.5); WBC 14.7 k/uL (3.8-10.6)
[2024-09-12] MEDS: hydroCHLOROthiazide 25 MG TAB PO SCH (08:23)
[2024-09-12] MEDS: CLOPIDOGREL 75 MG TAB PO SCH (08:46)
[2024-09-12 09:25] VITALS: BP 157/91; PULSE 72; RESP 20; TEMP 98
--- NOTE | 2024-09-12 10:32 | P.PN ---
Subjective Progress Note Date: 09/12/24 Principal diagnosis: Neck pain Right upper extremity weakness Right upper extremity radiculopathy Patient seen and examined this morning. Patient is ambulatory within room. She does report that her pain is managed on current regimen. Surgical incision to the anterior cervical spine, edges are well approximate with glue intact. NAY drain has been removed and new dressing has been applied. Hard cervical collar is present. Patient may utilize soft cervical collar while in bed or sitting in chair. Patient is clear from an orthopedic standpoint for discharge when medically stable. Objective - Vital Signs Vital signs: Vital Signs Temp 98.6 F 09/12/24 01:19 Pulse 82 09/12/24 01:19 Resp 17 09/12/24 01:19 BP 130/64 09/12/24 01:19 Pulse Ox 99 09/12/24 01:19 FiO2 Intake & Output 09/11/24 09/12/24 09/12/24 18:59 06:59 18:59 Output Total 250 Balance -250 Output: Urine 250 Other: Voiding Method Toilet Bedside Commode # Voids 4 - Exam Physical Examination General: The patient is awake and alert, in no acute distress Skin: Skin is warm and dry with no obvious rashes or lesions. Surgical incision to the anterior cervical spine, edges are well approximated with glue intact. NAY drain has been removed Neck: The neck is supple, there is mild tenderness with palpation and limited ROM due to surgical procedure. hard cervical collar is intact. Cardiovascular: There is a regular rate and rhythm. Respiratory: Respirations are non-labored.. Gastrointestinal: Soft, non-distended, non-tender abdomen. Back: There is no tenderness to palpation in the midline, paralumbar, parathoracic or buttocks region. There is no obvious deformity. Musculoskeletal: ROM limited secondary to pain and stiffness from surgical procedure. Right: shoulder abduction 4/5, elbow flexors 4/5, wrist dorsiflexors 4-/5. f maude abductor 4-/5, manager intermediate 4-/5, hip flexor 5/5, knee flexor 5/5, ankle dorsiflexor 5/5, ankle plantarflexion 5/5 and extensor hallucis 5/5. Left: shoulder abduction 5/5, elbow flexors 5/5, wrist dorsiflexors 5/5. finger abductor 5/5, manager intermediate 5/5, hip flexor 5/5, knee flexor 5/5, ankle dorsiflexor 5/5, ankle plantarflexion 5/5 and extensor hallucis 5/5. Neurological: CN 2-12 intact. There are no obvious motor or sensory deficits. Movement and coordination equal and intact. Sensory exam to light touch intact C5-T1 and intact from L2-S1. Reflexes 2/4 in bilateral upper and lower extremities. Negative Hoffmans, babinski, and clonus signs. Psychiatric: Cooperative, appropriate mood & affect, normal judgment. - Labs CBC & Chem 7: 09/12/24 06:32 09/12/24 06:32 Labs: Abnormal Lab Results - Last 24 Hours (Table) 09/11/24 09/11/24 09/11/24 Range/Units 06:10 06:10 11:54 WBC 14.73 H (4.50-10.00) X 10*3/uL RBC 4.04 L (4.10-5.20) X 10*6/uL Hgb 11.7 L (12.0-15.0) g/dL Hct 35.2 L (37.2-46.3) % Immature Gran # 0.07 H (0.00-0.04) X 10*3/uL Neutrophils # 10.78 H (1.80-7.70) X 10*3/uL Monocytes # 1.12 H (0.20-1.00) X 10*3/uL Eosinophils # 0 L (0.04-0.35) X 10*3/uL BUN/Creatinine Ratio 25.38 H (12.00-20.00) Ratio Glucose 203 H (70-110) mg/dL POC Glucose (mg/dL) 159 H (70-110) mg/dL Cortisol 2.1 L (3.1-22.4) UG/DL 09/11/24 09/11/24 09/11/24 Range/Units 13:27 16:20 20:34 WBC (4.50-10.00) X 10*3/uL RBC (4.10-5.20) X 10*6/uL Hgb (12.0-15.0) g/dL Hct (37.2-46.3) % Immature Gran # (0.00-0.04) X 10*3/uL Neutrophils # (1.80-7.70) X 10*3/uL Monocytes # (0.20-1.00) X 10*3/uL Eosinophils # (0.04-0.35) X 10*3/uL BUN/Creatinine Ratio (12.00-20.00) Ratio Glucose (70-110) mg/dL POC Glucose (mg/dL) 145 H 256 H 120 H (70-110) mg/dL Cortisol (3.1-22.4) UG/DL 09/12/24 Range/Units 06:27 WBC (4.50-10.00) X 10*3/uL RBC (4.10-5.20) X 10*6/uL Hgb (12.0-15.0) g/dL Hct (37.2-46.3) % Immature Gran # (0.00-0.04) X 10*3/uL Neutrophils # (1.80-7.70) X 10*3/uL Monocytes # (0.20-1.00) X 10*3/uL Eosinophils # (0.04-0.35) X 10*3/uL BUN/Creatinine Ratio (12.00-20.00) Ratio Glucose (70-110) mg/dL POC Glucose (mg/dL) 159 H (70-110) mg/dL Cortisol (3.1-22.4) UG/DL Assessment and Plan Assessment: Postop day 2: C3-C7 ACDF Plan: -Appreciate workers compensation consultant and team management. -Activity: Ambulate QID, OOB all meals, up and about, limit lifting bending twisting to less than 5 lbs. Use walker or cane if needed for stability. -Daily PT/OT, increase ambulation strength and balance. -Hard cervical collar at all times when up and about. Soft cervical collar has been ordered for patient. -Pain control: Adequate at this time -Meds: reviewed -GI ppx: senna, Miralax -DVT PPX: Aspirin 81mg daily -Hygiene: Maintain incision clean and dry. -Encourage IS 10x/hr -Dispo: From an orthopedic standpoint for discharge when medically stable, anticipate discharge home with homecare. *I reviewed and discussed this case with my attending Dr. Pettit, whom has reviewed this chart and films and is in agreement with assessment and plan of care as outlined above. I have personally seen and examined the patient, performed the documentation and the assessment and plan as written. Number of minutes spent on the visit: 20m.
[2024-09-12 11:22] LABS: Glucose,Whole Blood 170 mg/dL (70-110)
--- NOTE | 2024-09-12 12:58 | P.PN ---
Subjective Progress Note Date: 09/12/24 This is a very pleasant 53-year-old female patient with a known history of coronary artery disease with previous stent placement and subsequent coronary artery bypass grafting in December 2023. She had developed left-sided pleural effusions and had undergone a thoracentesis in January 2024. She also has a hi story of diabetes mellitus, hypertension, hyperlipidemia, rheumatoid arthritis. She also has a remote smoking history. She follows with an outside school physical therapist for COPD. She is only on albuterol that she rarely uses at home. No pulmonary complaints. She presented here on September 05, 2024 with complaints of left-sided chest discomfort. EKG revealed sinus rhythm with no acute ST or T wave abnormalities. Some minimal plate atelectasis and scarring of the left lung base. White count 15.9. Hemoglobin 14.0. Platelets 274. Sodium 141. Potassium 4.2. Bicarb 31. BUN 27. Creatinine 0.61. Glucose 184. She also had complaints of neck pain with right upper extremity weakness. RI of the cervical spine revealed disc herniations at C3-4 where extruded component is difficult to exclude. There is ventral cord contact without central stenosis. Disc herniations at C5-6 and C6-C7. Resultant central stenosis noted. She is scheduled for surgical intervention at C3-C7 ACDF tomorrow with Dr. Head 7. We were asked to see the patient for pulmonary clearance. She is seen today on the regular medical floor. She is resting quite comfortably in bed. Awake and alert in no acute distress. She has no pulmonary complaints. No shortness of breath, cough or congestion. No chest tightness or wheezing. Maintaining good O2 saturations up to 100% on room air. She has been afebrile. Hemodynamically stable. The patient is seen today September 10, 2024 in follow-up on the regular medical floor. She is currently sitting up in bed. Awake and alert in no acute distress. She is maintaining good O2 saturations in the 90s on room air. She has lactated Ringer's at 50 mL/h. She is awaiting to go to surgery today. White count 14.2. Hemoglobin 14.1. Platelets 306. Sodium 140. Potassium 4.6. Bicarb 24. BUN 27. Creatinine 0.8. Glucose 220. The patient is seen today September 11, 2024 in follow-up on the regular medical floor. She is up ambulating in her room. Awake and alert in no acute distress. She is maintaining O2 saturations in the 90s on room air. No IV fluids. She did undergo C3-C7 cervical arthrodesis. Post operative day #1. CT scan of the cervical spine today revealed interval surgical change C3-C7 levels with satisfactory alignment. C-collar in place. She is currently on Solu-Cortef. Heparin for DVT prophylaxis. White count 14.7. Hemoglobin 11.7. Platelets 262. Sodium 141. Potassium 4.3. Bicarb 25. BUN 20. Creatinine 0.8. Glucose 203. The patient is seen today September 12, 2024 in follow-up on the regular medical floor. She is up ambulating in the hallway with assistance. Maintaining good O2 saturations in the 90s on room air. Her pain is well-managed. She is working well with the incentive spirometer. White count 14.7. Hemoglobin 12.3. Platelets 213. Sodium 136. Potassium 3.9. Bicarb 27. BUN 13. Creatinine 0.56. Glucose 162. She remains on heparin for DVT prophylaxis. Objective - Vital Signs Vital signs: Vital Signs Temp 98.0 F 09/12/24 07:26 Pulse 72 09/12/24 07:26 Resp 20 09/12/24 07:26 BP 157/91 09/12/24 07:26 Pulse Ox 97 09/12/24 07:26 FiO2 Intake & Output 09/11/24 09/12/24 09/12/24 18:59 06:59 18:59 Output Total 250 Balance -250 Output: Urine 250 Other: Voiding Method Toilet Bedside Commode Bedside Commode # Voids 4 - Exam GENERAL EXAM: Alert, 53-year-old female, on room air, up ambulating in the hallway with help, in no apparent distress. HEAD: Normocephalic. EYES: Normal reaction of pupils, equal size. NOSE: Clear with pink turbinates. THROAT: No erythema or exudates. NECK: No masses, no JVD. C-collar in place. CHEST: No chest wall deformity. LUNGS: Equal air entry with no crackles, wheeze, rhonchi or dullness. CVS: S1 and S2 normal with no audible murmur, regular rhythm. ABDOMEN: No hepatosplenomegaly, normal bowel sounds, no guarding or rigidity. SPINE: No scoliosis or deformity SKIN: No rashes CENTRAL NERVOUS SYSTEM: No focal deficits, tone is normal in all 4 extremities. EXTREMITIES: There is no peripheral edema. No clubbing, no cyanosis. Peripheral pulses are intact. - Labs CBC & Chem 7: 09/12/24 06:32 09/12/24 06:32 Labs: Abnormal Lab Results - Last 24 Hours (Table) 09/11/24 09/11/24 09/11/24 Range/Units 13:27 16:20 20:34 WBC (3.8-10.6) k/uL Neutrophils # (1.3-7.7) k/uL Sodium (137-145) mmol/L Glucose (74-99) mg/dL POC Glucose (mg/dL) 145 H 256 H 120 H (70-110) mg/dL 09/12/24 09/12/24 09/12/24 Range/Units 06:27 06:32 06:32 WBC 14.7 H (3.8-10.6) k/uL Neutrophils # 10.3 H (1.3-7.7) k/uL Sodium 136 L (137-145) mmol/L Glucose 162 H (74-99) mg/dL POC Glucose (mg/dL) 159 H (70-110) mg/dL 09/12/24 Range/Units 11:06 WBC (3.8-10.6) k/uL Neutrophils # (1.3-7.7) k/uL Sodium (137-145) mmol/L Glucose (74-99) mg/dL POC Glucose (mg/dL) 170 H (70-110) mg/dL Assessment and Plan Assessment: Left-sided chest pain, acute coronary syndrome ruled out Neck pain with right upper extremity weakness. Found to have herniation and stenosis in C3-C7 and had surgical intervention with ACDF performed September 10, 2024 History of coronary artery disease with previous placement and subsequent coronary artery bypass grafting in December 2023 History of left-sided pleural effusion status post thoracentesis in January 2024 Diabetes mellitus Hypertension Hyperlipidemia Rheumatoid arthritis Former smoker Chronic obstructive pulmonary disease, mild, only on albuterol as needed, rarely used Plan: The patient was seen and evaluated Labs and medications reviewed C-collar in place Currently stable and on room air Ambulating in the hallway with assistance Home once cleared by surgical services I have personally seen and examined the patient, performed the documentation and the assessment and plan as written. Number of minutes spent on the visit: 10 Dictation was produced using [employer] dictation software. Please excuse any grammatical, word or spelling errors.
--- NOTE | 2024-09-12 17:00 | P.DS ---
Providers Date of admission: 09/08/24 10:45 Expected date of discharge: 09/12/24 Attending physician: Haroon Colin MD Consults: 09/05/24 16:35 Consult Physician Urgent Consulting Provider: Timur Pettit Consult Reason/Comments: cervical spine stenosis Do you want consulting provider notified?: Yes 09/08/24 16:32 Consult Physician Routine Consulting Provider: Sabi Pugh Consult Reason/Comments: pulmonary surgical clearance Do you want consulting provider notified?: Yes Primary care physician: [facility] Course: Final Diagnosis: # C3-C7 spondylosis with stenosis status post C3-4 C4-5 C5-6 C6-7 arthrodesis with insertion of cages # Right upper extremity paresthesia, improving # Adrenal insufficiency due to steroid administration # Non-insulin dependent diabetes, glucose controlled # Atypical chest pain, ACS ruled out # History of CAD status post CABG # Hypertension # GERD Hospital Course: This is a 53-year-old female with history of CAD status post CABG in December 2023, type 2 diabetes, cervical radiculopathy, GERD, rheumatoid arthritis and COPD presents the ER with progressively worsening chest pain associated with s hortness of breath started this morning. Patient describes the pain as sharp and heavy and it mainly on the right side shooting across to the left side as well as in the midsternal area radiating down into the epigastric area. Her pain is exacerbated with deep breaths, and after eating heavy meals. It is alleviated with nitrate and with rest. Patient has been endorsing sharp intermittent centrally located chest pain sometime radiating across her chest since she got her CABG procedure. On day of admission, patient was trying to catch the bus to go to dental office when she started to experience worsening chest pain associated with short of breath. She felt very winded and lethargic and had to struggle to get onto the bus. At the dental office, her blood pressure was in 160s over 90s and also started to experience some paresthesia in her right arm which prompted her to come to the ER for further assessment. Patient denies recent fall or trauma to the chest. Patient denies any recent travel history, recent upper respiratory tract infection, use of illicit drug. Patient is currently on dual antiplatelet therapy with aspirin and Plavix. Patient denies orthopnea, PND and swelling of legs. Of note, patient has a history of multilevel degenerative disc disease and has been experiencing paresthesia chronically in her right arm which she said has gotten worse in the last 3 weeks. She has been taking rwwb-[id number] medication as well as she is on gabapentin which provides her minimal relief. At the time of interview, patient is still complaining of chest pain as well as tingling in her right arm. However she is not complaining of any shortness of breath, dizziness, nausea, vomiting, abdominal discomfort. Lab evaluation in the ER shows troponin I less than 0.012, lipase 196, WBC of 7.9, hemoglobin 12.6, MCV 87.9, platelet count 209, sodium 140, potassium 3.5, bicarb 29, BUN 10, creatinine 0.56, glucose 175, magnesium 1.7, AST 22, ALT 20, alkaline phosphatase 142 Chest x-ray interpreted independently shows no acute cardiopulmonary process. EKG shows normal sinus rhythm with a rate of 73 bpm, no QTc prolongation. Flat T waves appreciated in lead aVL and V2. Poor R wave progression noted. Patient was admitted for evaluation of chest pain to rule out ACS and right upper extremity paresthesia. Cardiology and orthopedic surgery consulted. ACS was ruled out and chest pain improved throughout hospital stay. Home aspirin and plavix resumed. Patient was determined to have hyperlipidemia, suboptimally controlled and type 2 diabetes with uncontrolled hyperglycemia. Ezetimibe and Farxiga added to for medical optimization of her hyperlipidemia and diabetes. Cervical spine CT in June/2024 showed C3-C4 central disc protrusion and moderate spinal stenosis. C-spine MRI showed C3-C4 severe stenosis with C5-C6 and C6-C7 myelomalacia. IV Decadron added to management to reduce inflammation of cervical spine. Anterior cervical discectomy and fusion with cage placement was performed on 09/10 and was successful with no postop complications. Pain control was provided and NAY drain placed for 1 day. IV Solu-Cortef given postop for possible adrenal insufficiency from recent steroid administration. A.m. cortisol was 2.5. Patient was cleared for discharge by by Ortho surgery today as her pain was controlled and successful alignment was seen on cervical spine CT. She is discharged today with oral hydrocortisone, cefadroxil, Agra, Zetia, and Zanaflex. She is provided a soft c-collar. She is advised to follow-up with orthopedic surgery for postop management, and her PCP for further workup and management of adrenal insufficiency. She needs outpatient aldosterone levels and plasma renin to find any mineralocorticoid deficiency. Physical examination: Vital signs reviewed General: non toxic, no distress, appears at stated age, on C-collar Derm: no unusual rashes/lesions, warm Head: atraumatic, normocephalic, symmetric Eyes: EOMI, anicteric sclera, pupils equal round reactive to light ENT: Nose and ears atraumatic Neck: No cervical lymphadenopathy, trachea midline, supple Mouth: no lip lesion, mucus membranes moist Cardiovascular: S1S2 reg, no murmur, Lungs: CTA bilateral, no rhonchi, no rales, no accessory muscle use Abdominal: soft, nondistended, nontender to palpation, no guarding Ext: muscle strength 5 out of 5 in all 4 extremities grossly, no gross muscle atrophy, no contractures, positive dorsalis pedis pulse bilateral, no extremity edema Neuro: CN II-XI grossly intact, no gross focal neuro deficits Psych: Alert, oriented, appropriate affect and mood A total of 38 minutes of time were spent preparing this complex discharge summary. Patient was discharged on 09/12/2024 at 1125. I have seen and evaluated the patient today. Discussed with the resident and agree with the residents finding and plan as documented in the resident's note. Changes highlighted in blue font. Patient Condition at Discharge: Stable Plan - Discharge Summary Discharge Rx Participant: No New Discharge Prescriptions: New cefaDROXiL [Duricef] 500 mg PO Q12HR #10 cap Hydrocortisone [Cortef] 10 mg PO DAILY #60 tab Dapagliflozin Propanediol [Farxiga] 10 mg PO DAILY #90 tab Sennosides-Docusate Sodium [Senokot-S] 2 each PO DAILY #30 tab HYDROcodone/APAP 10-325MG [Agra 10-325] 1 tab PO Q4-6H PRN #40 tab PRN Reason: Pain tiZANidine [Zanaflex] 2 mg PO TID PRN #40 tab PRN Reason: Muscle Spasm Hydrocortisone [Cortef] 5 mg PO HS #60 tab Ezetimibe [Zetia] 10 mg PO DAILY #90 tab Continue Pantoprazole [Protonix] 40 mg PO DAILY Meenakshi Multivitamin Gummy 2 tab PO DAILY amLODIPine [Norvasc] 2.5 mg PO DAILY Ferrous Sulfate [Iron (65 MG Elemental)] 325 mg PO BID tiZANidine [Zanaflex] 2 mg PO BID Lubiprostone [Amitiza] 24 mcg PO TID metFORMIN HCL [Glucophage] 1,000 mg PO BID Metoprolol Succinate (ER) [Toprol XL] 50 mg PO DAILY hydroCHLOROthiazide 25 mg PO DAILY Isosorbide Mononitrate ER [Imdur] 30 mg PO DAILY Losartan [Cozaar] 25 mg PO HS Gabapentin [Neurontin] 300 mg PO BID Aspirin 81 mg PO DAILY Clopidogrel [Plavix] 75 mg PO DAILY Atorvastatin [Lipitor] 80 mg PO HS Discontinued Dulaglutide [Trulicity] 0.75 mg SQ MO Discharge Medication List metFORMIN HCL [Glucophage] 1,000 mg PO BID 01/19/22 [History] Metoprolol Succinate (ER) [Toprol XL] 50 mg PO DAILY 03/01/24 [History] Pantoprazole [Protonix] 40 mg PO DAILY 03/01/24 [History] Ferrous Sulfate [Iron (65 MG Elemental)] 325 mg PO BID 05/07/24 [History] Gabapentin [Neurontin] 300 mg PO BID 05/07/24 [History] Meenakshi Multivitamin Gummy 2 tab PO DAILY 05/07/24 [History] Isosorbide Mononitrate ER [Imdur] 30 mg PO DAILY 05/07/24 [History] Losartan [Cozaar] 25 mg PO HS 05/07/24 [History] amLODIPine [Norvasc] 2.5 mg PO DAILY 05/07/24 [History] hydroCHLOROthiazide 25 mg PO DAILY 05/07/24 [History] Aspirin 81 mg PO DAILY 09/05/24 [History] Atorvastatin [Lipitor] 80 mg PO HS 09/05/24 [History] Clopidogrel [Plavix] 75 mg PO DAILY 09/05/24 [History] Lubiprostone [Amitiza] 24 mcg PO TID 09/05/24 [History] tiZANidine [Zanaflex] 2 mg PO BID 09/05/24 [History] Dapagliflozin Propanediol [Farxiga] 10 mg PO DAILY #90 tab 09/12/24 [Rx] Ezetimibe [Zetia] 10 mg PO DAILY #90 tab 09/12/24 [Rx] HYDROcodone/APAP 10-325MG [Agra 10-325] 1 tab PO Q4-6H PRN #40 tab 09/12/24 [Rx] Hydrocortisone [Cortef] 5 mg PO HS #60 tab 09/12/24 [Rx] Hydrocortisone [Cortef] 10 mg PO DAILY #60 tab 09/12/24 [Rx] Sennosides-Docusate Sodium [Senokot-S] 2 each PO DAILY #30 tab 09/12/24 [Rx] cefaDROXiL [Duricef] 500 mg PO Q12HR #10 cap 09/12/24 [Rx] tiZANidine [Zanaflex] 2 mg PO TID PRN #40 tab 09/12/24 [Rx] Follow up Appointment(s)/Referral(s): [facility], [NON-STAFF] - As Needed [facility] [Primary Care Provider] - 10/03/24 9:00 am Timur Pettit DO [Doctor of Osteopathic Medicine] - 09/26/24 8:30 am Patient Instructions/Handouts: Anterior Cervical Discectomy (DC) Activity/Diet/Wound Care/Special Instructions: Spine Discharge and Recovery Instructions Date of Surgery: 09/10/2024 Diagnosis: Cervical spondylosis with stenosis Procedure: C3-C7 ACDF Medications: See medication list All medication refills should be obtained through your primary care doctor or your clinic spine surgeon. Please discuss prescription refills at your follow up appointment. Do not call the hospital for medication refills. Activity: Encourage ambulation with assist of walker, Up and about 6-8x daily PT/OT daily work on balance, strength and mobility Up in chair with all meals Shower daily Brace: Use brace when up and about, do not wear in bed or shower Dressing: Leave your dressing in place for a total of 3 days post operatively. Then you may remove your dressing and leave open to air. Keep the area clean and if not able to keep area clean, then cover with sterile gauze and tape. Showering: You may shower 3 days after your procedure allowing soap and water to run over incision. Do not scrub. Do not soak. Blot dry. Follow up: Please confirm a follow up appointment with your surgeon 2 weeks post operatively. Please make an appointment to follow up with your PCP in 1-2 weeks after surgery for evaluation 3 phase, 3-week plan POST OP WEEKS 1-3 1. Lifting/carrying/pushing/pulling limited to less than 5 pounds. 2. Do not sit for longer than 15 minutes at one time. Get up and walk around. Prolonged sitting is NOT advised. If you lay down, see if you can tolerate laying down on you front (belly side) 3. Walk for periods of 15 minutes = 1 mile but no longer; do it multiple times times each day. 4. Ice your low back after activity. POST OP WEEKS 3-6 1. Lifting limited to less than 20 pounds. 2. Do not sit for longer than 30 minutes at a time. Frequently change positions. Use a sit-to stand workstation or take frequent breaks from sitting if you have returned to work. 3. Walk for 30 minutes each day. If possible, do these three or more times a day POST OP WEEKS 6+ At your 6-week appointment we will give you a physical therapy referral to focus on a core stabilization and strengthening program. You should also work on leg & buttock strengthening, hamstring & quadriceps stretching, and continue a low impact aerobic activity program such as swimming, walking, or riding a stationary bicycle. During the initial 6 weeks after your surgery, you are at the highest risk of re-injuring your spine. You should generally avoid BLTs (bending, lifting and twisting combination motions) and follow the above guidelines to reduce the chance of reinjury. You can anticipate post op appointments in our office at approximately 3 weeks and 6 weeks after your surgery. INCISION CARE: If your incision is not draining you do NOT need to cover it with a dressing. Keep your incision clean, dry and intact. In most cases, we apply skin glue, marcos or sutures to the incision at the time of surgery. This will be like a crust or have the appearance of a scab and will fall off in time on its own. The stitches or marcos need to be removed at 3 weeks post op appointment. You may begin to shower 3 days after surgery (this allows the glue to sullivan well). However, please avoid scrubbing the incision site or peeling off any of the skin glue. This will ensure optimal healing of your incision. Also, during this time avoid soaking the incision area in water - this includes swimming pools, hot tubs or baths. No ointments, lotions or oils on the incision until your surgeon allows. Leave marcos, sutures or glue in place. Neurological dysfunction that comes on suddenly can also be a sign of a stroke. Below some common symptoms of a stroke are listed: B - balance difficulty such as sudden onset walking or leaning to one side - NEW E - eye problem such as sudden double vision or trouble seeing on one side - NEW F - Facial weakness or numbness on one side - NEW A - Arm or leg weakness or numbness on one side - NEW S - Slurred speech or difficulty with word finding - NEW T - Time is BRAIN! Call 911 as soon as you recognize these symptoms Diet: Consume a regular diet rich in vegetables and lean protein such as chicken or fish. You should consume in a ratio of approximately 20% fats|40% carbohydrates|40%protein. Vegetables, sweet potatoes, brown rice or quinoa are examples of good carbohydrates. Chips, white bread, cookies and sweets/sugar are examples of bad carbohydrates. Limit your bad carbs, go wild with good carbs. "Life's Simple 7" Guidelines as per [place] [employer] These will help you reclaim your life after surgery and plate worker helper in your recovery, keeping in mind your restrictions. (1) Get Active. Physical activity can help people lose weight, control high blood pressure and cholesterol, feel emotionally better, and sleep better. (2) Control Cholesterol. Avoid a diet high in saturated fat, trans fat, & cholesterol. Limit whole milk & cream, ice cream, butter, egg yolks, processed meats (like sausage and hot dogs), and fatty meats. Choose healthy foods that are low in saturated fat, trans fat and cholesterol which include: Fruits and vegetables, fiber rich grain products (like whole grain pasta and brown rice), lean meat such as chicken, fish, nuts, seeds, and legumes. (3) Eat Better. Eat small portions. Shop at the grocery with a list and do not stray from it. Tips for a healthy diet include: Limit sodium intake to less than 1500mg daily, avoid prepackaged, processed, and fast foods, choose a diet rich in fruits, vegetables, and whole grain, high fiber foods, and limit saturated & cholesterol in your diet. (4) Manage Blood Pressure. If you have high blood pressure, you should have a cuff at home so that you can check your blood pressure regularly. Be sure you have a good cuff. An arm one is generally better than a wrist one. Bring the cuff to a doctor's appointment to validate that the measurements that your cuff are taking are accurate. Take your blood pressure twice daily when you are sitting down and relaxing. Record the numbers in a log and bring this log with y roberta to your doctors' appointments. (5) Lose Weight if your BMI is above 25. A healthy BMI is between 19-25. To calculate Your BMI, you may use a Standard BMI Calculator on the NIH BMI website: <www.nhlbi.nih.gov/guidelines/obesity/BMI/bmicalc.htm>. Weigh oneself daily. If you are overweight, set a goal to lose weight. A pound a week loss if needed is a good target. (6) Reduce Blood Sugar. Limit foods and liquids with "added sugars." (Added sugars include sucrose, fructose, glucose, maltose, dextrose, high fructose corn syrup, corn syrup, concentrated fruit juice and honey). (7) Stop Smoking. If you smoke, quitting smoking is one of the best things that you can do for your health. Smoking increases your risk of heart attack, stroke, and peripheral vascular disease, which is a build-up of plaque in your arteries. Please discard all the cigarettes and lighters in your house. Have a plan for what you will do when you have the urge to smoke. Direct and second- hand smoke shortens your life as well as the lives of your family, friends and others around you. For your health and the health of those around you, please consider quitting! Proper Bending Body Mechanics: Maintain a wide stance with one foot slightly in front of the other. Keep your back straight. Bend utilizing the strength in your hips and knees. Do not bend at the waist. Maintain the lifted object at your waist-level close to your body. Avoid lifting weight that causes immediately pain or pain anywhere in the body afterwards. Smoking/Nicotine If there was ever one thing that you could do to increase your overall health, decrease your risk of cardiovascular problems by about 39% the second you make the choice, it is to STOP SMOKING. Your body's most instant gratification is the second you stop smoking. We have all heard the studies, read the articles but it is true, smoking is extremely bad for your overall health, and moreover it is detrimental to your bone health. Nicotine, IN ANY FORM, kills bone cells, prevents your body from healing fractures, and significantly prolongs healing after surgery. In spine surgery specifically, it increases your risk of not healing your bones to create a fusion and increases your risk of having a revision surgery due to this up to 60%. I know it is hard. I know it feels impossible. But there are ways. Take control of your life. We are here to help you through it. And when you are ready, ask us and we can direct you to help if you desire. Use the START Plan to Quit Smoking (please visit the Helpguide.org website listed below for more information): S = Set a quit date. Choose a date within the next 2 weeks, so you have enough time to prepare without losing your motivation to quit. If you mainly smoke at work, quit on the weekend, so you have a few days to adjust to the change. T = Tell family, friends, and co-workers that you plan to quit. Let your friends and family in on your plan to quit smoking and tell them you need their support and encouragement to stop. Look for a quit brady who wants to stop smoking as well. You can help each other get through the rough times. A = Anticipate and plan for the challenges you'll face while quitting. Most people who begin smoking again do so within the first 3 months. You can help yourself make it through by preparing ahead for common challenges, such as nicotine withdrawal and cigarette cravings. R = Remove cigarettes and other tobacco products from your home, car, and work. Throw away all your cigarettes (no emergency pack!), lighters, ashtrays, and matches. Wash your clothes and freshen up anything that smells like smoke. Shampoo your car, clean your drapes and carpet, and steam your furniture. T = Talk to your doctor about getting help to quit. Your doctor can prescribe medication to help with withdrawal and suggest other alternatives. If you can't see a doctor, you can get many products over the counter at your local pharmacy or grocery store, including the nicotine patch, nicotine lozenges, and nicotine gum. Resources for Quitting Smoking: <https://www.[place].gov/documents/[facility]/Quit_Tobacco_Resources_for_patients_313 480_7.pdf> Supplementation: Take recommended dosages of Vitamin D and Calcium to help fortify your bones and help them to heal. See your health maintenance packet for dosages and recommended levels. DVT/VTE prophylaxis: You will be given compression stockings from the hospital. Wear these daily for the first two weeks after surgery. You may take them off at night. You may be prescribed a medication to help thin your blood. Take this as directed. If you are not prescribed this medication, early and frequent ambulation has been shown to be the best prophylaxis to deep vein thrombosis and sequelae related to this event. Discharge Disposition: HOME WITH HOME HEALTH SERVICES
[2024-09-12] MEDS ORDERED: HYDROCORTISONE 10 MG TAB PO SCH (21:00)
[2024-09-13] MEDS ORDERED: HYDROCORTISONE 10 MG TAB PO SCH (09:00)
== END 2024-09-12 14:55 | disposition home health service (06) | DRG 321 ==
LOC: EC 10:36 → 6NMEDSUR 14:07 → OBSVTOIN 09-08 10:45 → 4SSUR 09-08 23:50
PROVIDERS: ADMIT Internal Medicine; ATTEND Internal Medicine
PROC: 8E09XBF Computer Assisted Procedure of Head and Neck Region, With Fluoroscopy (ICD-10-PCS; principal; 2024-09-08)
PROC: 0RT30ZZ Resection of Cervical Vertebral Disc, Open Approach (ICD-10-PCS; principal; 2024-09-08)
PROC: 01N10ZZ Release Cervical Nerve, Open Approach (ICD-10-PCS; principal; 2024-09-08)
PROC: 0RG20AJ Fusion of 2 or more Cervical Vertebral Joints with Interbody Fusion Device, Posterior Approach, Anterior Column, Open Approach (ICD-10-PCS; principal; 2024-09-08)
PROC: 4A11X4G Monitoring of Peripheral Nervous Electrical Activity, Intraoperative, External Approach (ICD-10-PCS; principal; 2024-09-08)
PROC: 4A133J1 Monitoring of Arterial Pulse, Peripheral, Percutaneous Approach (ICD-10-PCS; 2024-09-08)
PROC: 03HY32Z Insertion of Monitoring Device into Upper Artery, Percutaneous Approach (ICD-10-PCS; 2024-09-08)
PROC: 4A133B1 Monitoring of Arterial Pressure, Peripheral, Percutaneous Approach (ICD-10-PCS; 2024-09-08)
DX: M50.01 Cervical disc disorder with myelopathy, high cervical region (principal); M50.023 Cervical disc disorder at C6-C7 level with myelopathy; M50.123 Cervical disc disorder at C6-C7 level with radiculopathy; K21.9 Gastro-esophageal reflux disease without esophagitis; M48.02 Spinal stenosis, cervical region; I25.10 Atherosclerotic heart disease of native coronary artery without angina pectoris; E78.00 Pure hypercholesterolemia, unspecified; I10 Essential (primary) hypertension; M06.9 Rheumatoid arthritis, unspecified; F41.9 Anxiety disorder, unspecified; F32.A Depression, unspecified; J44.9 Chronic obstructive pulmonary disease, unspecified; E11.42 Type 2 diabetes mellitus with diabetic polyneuropathy; G95.89 Other specified diseases of spinal cord; E11.65 Type 2 diabetes mellitus with hyperglycemia; E27.40 Unspecified adrenocortical insufficiency; R07.9 Chest pain, unspecified; I25.2 Old myocardial infarction; M40.202 Unspecified kyphosis, cervical region; Z79.02 Long term (current) use of antithrombotics/antiplatelets; Z79.82 Long term (current) use of aspirin; Z79.4 Long term (current) use of insulin; Z79.84 Long term (current) use of oral hypoglycemic drugs; Z79.899 Other long term (current) drug therapy; R20.0 Anesthesia of skin; Z82.49 Family history of ischemic heart disease and other diseases of the circulatory system; Z87.891 Personal history of nicotine dependence; Z95.1 Presence of aortocoronary bypass graft; Z95.5 Presence of coronary angioplasty implant and graft; X58.XXXA Exposure to other specified factors, initial encounter; Z91.010 Allergy to peanuts; Z91.018 Allergy to other foods; R53.1 Weakness; Z88.8 Allergy status to other drugs, medicaments and biological substances; M25.78 Osteophyte, vertebrae; M47.12 Other spondylosis with myelopathy, cervical region; M47.22 Other spondylosis with radiculopathy, cervical region
CPT/HCPCS: 36410; 36415; 71046; 72040; 72125; 72141; 76937; 80048; 80053; 80061; 81025; 82088; 82533; 83036; 83690; 83735; 84484; 85025; 85610; 85730; 99285

== ENCOUNTER 2024-09-14 14:31 | Inpatient (IN) | payer OTHER ==
[2024-09-14 16:02] LABS: Basophils % (A) 0 %; Eosinophils # (A) 0.1 k/uL (0-0.7); Eosinophils % (A) 1 %; HCT 39.3 % (34.0-46.0); HGB 12.9 gm/dL (11.4-16.0); Lymphocytes # (A) 2.2 k/uL (1.0-4.8); Lymphocytes % (A) 18 %; MCH 28.9 pg (25.0-35.0); MCHC 32.8 g/dL (31.0-37.0); Mean Platelet Volume 7.6; Monocytes # (A) 0.6 k/uL (0-1.0); Monocytes % (A) 5 %; Neutrophils % (A) 74 %; Platelet Count 247 k/uL (150-450); RBC 4.47 m/uL (3.80-5.40); RDW 12.8 % (11.5-15.5); WBC 12.1 k/uL (3.8-10.6)
[2024-09-14] MEDS: SODIUM CHLORIDE 0.9% 1,000 ML IV ONE (16:09)
[2024-09-14 16:14] LABS: Prothrombin Time 10.9 sec (10.0-12.5)
[2024-09-14 16:17] LABS: Partial Thromboplastin Time 18.4 sec (22.0-30.0)
[2024-09-14] MEDS: HYDROmorphone 1 MG/ML 1 ML SYRINGE IVP STA ×2 (16:18→17:18)
[2024-09-14 16:28] LABS: ALT 18 U/L (4-34); AST 21 U/L (14-36); African American GFR (CKD) >90 (>60 ml/min/1.73 sqM); Alkaline Phosphatase 158 U/L (38-126); Anion Gap 9 mmol/L; Blood Urea Nitrogen 11 mg/dL (7-17); Calcium 9.4 mg/dL (8.4-10.2); Carbon Dioxide 25 mmol/L (22-30); Chloride 102 mmol/L (98-107); Glucose 307 mg/dL (74-99); Magnesium 2.1 mg/dL (1.6-2.3); Non-African American GFR(CKD) >90 (>60 ml/min/1.73 sqM); Potassium 3.4 mmol/L (3.5-5.1); Sodium 136 mmol/L (137-145); Total Bilirubin 1.1 mg/dL (0.2-1.3); Total Protein 7.1 g/dL (6.3-8.2)
--- NOTE | 2024-09-14 16:41 | XR ---
EXAMINATION TYPE: XR chest 2V DATE OF EXAM: 09/14/2024 4:31 PM COMPARISON: Chest radiographs from 09/05/2024 CLINICAL INDICATION: Female, 53 years old with history of Chest Pain; [facility] TECHNIQUE: XR chest 2V Frontal and lateral views of the chest. FINDINGS: Lungs/Pleura: There is no evidence of pleural effusion, focal consolidation, or pneumothorax. Pulmonary vascularity: Unremarkable. Heart/mediastinum: Cardiomediastinal silhouette is enlarged and stable. Atherosclerotic calcificatio ns are seen in the aorta. Left atrial appendage occlusion device is present. Musculoskeletal: No acute osseous pathology. IMPRESSION: No acute cardiopulmonary disease/process. [facility], , 09/14/2024 4:39 PM
[2024-09-14] MEDS: MAG HYDROX/AL HYDROX/SIMETH 30 ML, HYOSCYAMINE ELIXIR 10 ML, LIDOCAINE VISCOUS 2% 10 ML PO STA (17:07)
--- NOTE | 2024-09-14 17:09 | ED ---
Neck Injury/Pain HPI - General Chief Complaint: Neck Pain/Injury Stated Complaint: Chest Pain, Back Pain Time Seen by Provider: 09/14/24 14:35 Mode of arrival: EMS Limitations: no limitations - History of Present Illness Initial Comments: 53-year-old female with past medical history of coronary artery disease, COPD, diabetes, hypertension who presents to the emergency department with chest and back pain. Patient reports that she had a recent cervical fusion done by Dr. Pettit the . Patient was discharged home on the . She has been taking [place] at home for pain control however it has not been minimizing her pain. She reports to significant anterior neck pain on the right. She states she has not been able to swallow and feels like she is getting her pain medication stuck in her throat. Her blood pressure has been high because she cannot swallow her blood pressure medications. She denies fevers. No trauma. No numbness, tingling or weakness in her extremities. Also admits to some chest pain. No shortness of breath. Denies any abdominal pain. Admits nausea without vomiting. No other alleviating, precipitating or modifying factors - Related Data Home Medications Medication Instructions Recorded Confirmed metFORMIN HCL [Glucophage] 1,000 mg PO BID 01/19/22 09/14/24 Metoprolol Succinate (ER) [Toprol 50 mg PO DAILY 03/01/24 09/14/24 XL] Pantoprazole [Protonix] 40 mg PO DAILY 03/01/24 09/14/24 Ferrous Sulfate [Iron (65 MG 325 mg PO BID 05/07/24 09/14/24 Elemental)] Gabapentin [Neurontin] 300 mg PO BID 05/07/24 09/14/24 Meenakshi Multivitamin Gummy 2 tab PO DAILY 05/07/24 09/14/24 Isosorbide Mononitrate ER [Imdur] 30 mg PO DAILY 05/07/24 09/14/24 Losartan [Cozaar] 25 mg PO HS 05/07/24 09/14/24 amLODIPine [Norvasc] 2.5 mg PO DAILY 05/07/24 09/14/24 hydroCHLOROthiazide 25 mg PO DAILY 05/07/24 09/14/24 Aspirin 81 mg PO DAILY 09/05/24 09/14/24 Atorvastatin [Lipitor] 80 mg PO HS 09/05/24 09/14/24 Clopidogrel [Plavix] 75 mg PO DAILY 09/05/24 09/14/24 Lubiprostone [Amitiza] 24 mcg PO TID 09/05/24 09/14/24 tiZANidine [Zanaflex] 2 mg PO BID 09/05/24 09/14/24 Nitroglycerin Sl Tabs [Nitrostat] 0.4 mg SUBLINGUAL Q5M PRN 09/14/24 09/14/24 Sennosides-Docusate Sodium 2 tab PO DAILY 09/14/24 09/14/24 [Senokot-S] Previous Rx's Medication Instructions Recorded Dapagliflozin Propanediol [Farxiga] 10 mg PO DAILY #90 tab 09/12/24 Ezetimibe [Zetia] 10 mg PO DAILY #90 tab 09/12/24 HYDROcodone/APAP 10-325MG [[place] 1 tab PO Q4-6H PRN #40 tab 09/12/24 10-325] Hydrocortisone [Cortef] 5 mg PO HS #60 tab 09/12/24 Hydrocortisone [Cortef] 10 mg PO DAILY #60 tab 09/12/24 cefaDROXiL [Duricef] 500 mg PO Q12HR #10 cap 09/12/24 tiZANidine [Zanaflex] 2 mg PO TID PRN #40 tab 09/12/24 Estradiol Cream [Estrace Cream 1 applic VAGINAL DAILY PRN #1 each 09/16/24 0.01%] Nystatin 100,000 Unit/ml Susp 500,000 unit PO QID 7 Days #140 ml 09/16/24 [Mycostatin Oral Susp] Allergies Allergy/AdvReac Type Severity Reaction Status Date / Time peanut Allergy HIVES Verified 09/17/24 06:02 rice Allergy Rash/Hives Verified 09/17/24 06:02 seasonal Allergy Rash/Hives Uncoded 09/17/24 06:02 Review of Systems ROS Statement: Those systems with pertinent positive or pertinent negative responses have been documented in the HPI. ROS Other: All systems not noted in ROS Statement are negative. Past Medical History Past Medical History: Asthma, Coronary Artery Disease (CAD), COPD, Diabetes Mellitus, Hyperlipidemia, Hypertension, Myocardial Infarction (ME), Muscu loskeletal Disorder, Rheumatoid Arthritis (RA), Thyroid Disorder Additional Past Medical History / Comment(s): Back Pain, right shoulder pain, Hx Pituitary Tumor, BENIGN. Thyroid disorder. 3 heart attacks-most recent March 2022, 3 stents total, neuropathy; left-sided pleural effusion Last Myocardial Infarction Date:: 10/29/22 History of Any Multi-Drug Resistant Organisms: None Reported Past Surgical History: Section, Coronary Bypass/CABG, Heart Catheterization With Stent, Tubal Ligation Additional Past Surgical History / Comment(s): Pituitary Tumor Removed. co lonoscopy, PAIN CLINIC PROCEDURES stents x3 c section x4; three-vessel off-pump CABG January 04, 2024; left-sided thoracentesis with removal of 950 mL fluid on January 22, 2024 Past Anesthesia/Blood Transfusion Reactions: No Reported Reaction Date of Last Stent Placement:: March 2022 Past Psychological History: Anxiety, Depression Smoking Status: Former smoker Past Alcohol Use History: None Reported Past Drug Use History: Marijuana - Past Family History Mother History Unknown: Yes Family Medical History: Deep Vein Thrombosis (DVT) Additional Family Medical History / Comment(s): Mother is alive at age 67 with history of coronary artery disease and three-vessel CABG. Daughter(s) History Unknown: Yes Family Medical History: Deep Vein Thrombosis (DVT) Additional Family Medical History / Comment(s): Patient has a total of 9 children with no major medical problems. Father History Unknown: Yes Family Medical History: Cancer Additional Family Medical History / Comment(s): Father is alive with no history of coronary artery disease. History of Prostate Cancer Sister(s) History Unknown: Yes Additional Family Medical History / Comment(s): The patient has 4 sisters and 1 brother. One sister had a myocardial infraction at age 40. General Exam Limitations: no limitations General appearance: alert, anxious, other (Patient presents to the emergency department yelling and screaming, she was wailing in pain) Head exam: Present: atraumatic, normocephalic, normal inspection Neck exam: Present: other (Collar is in place. Incision site is clean, dry and intact) Respiratory exam: Present: normal lung sounds bilaterally. Absent: respiratory distress, wheezes, rales, rhonchi, stridor Cardiovascular Exam: Present: tachycardia GI/Abdominal exam: Present: soft, normal bowel sounds. Absent: distended, tenderness, guarding, rebound, rigid Extremities exam: Present: normal inspection, full ROM, normal capillary refill, other (Patient has equal ancillary services manager therapy strength in all extremities). Absent: tenderness, pedal edema, joint swelling, calf tenderness Neurological exam: Present: alert, oriented X3, CN II-XII intact Psychiatric exam: Present: anxious, manic Skin exam: Present: warm, dry, intact, normal color. Absent: rash Course Vital Signs 09/14/24 09/14/24 09/14/24 14:32 16:04 16:24 Temperature 99.0 F 98.1 F Pulse Rate 145 H 96 100 Pulse Rate [ Pulse Oximetery ] Respiratory 18 22 20 Rate Blood Pressure 146/76 183/121 149/76 Blood Pressure [Right Arm Sitting] O2 Sat by Pulse 99 100 100 Oximetry 09/14/24 09/14/24 09/14/24 16:39 17:15 17:50 Temperature 99.0 F Pulse Rate 95 97 Pulse Rate [ 100 Pulse Oximetery ] Respiratory 20 20 Rate Blood Pressure 190/101 165/70 Blood Pressure [Right Arm Sitting] O2 Sat by Pulse 96 95 Oximetry 09/14/24 09/14/24 09/15/24 21:08 23:29 00:09 Temperature 98.7 F Pulse Rate 105 H 98 74 Pulse Rate [ Pulse Oximetery ] Respiratory 17 17 17 Rate Blood Pressure 149/75 95/63 103/50 Blood Pressure [Right Arm Sitting] O2 Sat by Pulse 94 L 98 95 Oximetry 09/15/24 09/15/24 09/15/24 05:02 07:56 08:00 Temperature 98.0 F Pulse Rate 88 Pulse Rate [ 87 87 Pulse Oximetery ] Respiratory 19 16 Rate Blood Pressure Blood Pressure 152/98 [Right Arm Sitting] O2 Sat by Pulse 95 94 L Oximetry 09/15/24 09/15/24 09/15/24 11:02 13:06 15:27 Temperature 97.8 F 97.9 F Pulse Rate Pulse Rate [ 72 72 79 Pulse Oximetery ] Respiratory 18 16 Rate Blood Pressure Blood Pressure 118/75 128/80 [Right Arm Sitting] O2 Sat by Pulse 93 L 95 Oximetry 09/15/24 20:56 Temperature Pulse Rate 100 Pulse Rate [ Pulse Oximetery ] Respiratory 18 Rate Blood Pressure 130/80 Blood Pressure [Right Arm Sitting] O2 Sat by Pulse 98 Oximetry Medical Decision Making - Medical Decision Making Was pt. sent in by a medical professional or institution (, PA, PALLIATIVE CARE COORDINATOR, urgent care, hospital, or fdc...) When possible be specific @ -No Did you speak to anyone other than the patient for history (EMS, parent, family, police, friend...)? What history was obtained from this source @ -I spoke with the daughter, and EMS for the history Did you review nursing and triage notes (agree or disagree)? Why? @ -I reviewed and agree with nursing and triage notes Were old charts reviewed (outside hosp., previous admission, EMS record, old EKG, old radiological studies, urgent care reports/EKG's, fdc records)? Report findings @ -I reviewed recent discharge summary after patient was hospitalized and had cervical fusion. Differential Diagnosis (chest pain, altered mental status, abdominal pain women, abdominal pain men, vaginal bleeding, weakness, fever, dyspnea, syncope, headache, dizziness, GI bleed, back pain, seizure, CVA, palpatations, mental health, musculoskeletal)? @ -Differential Chest Pain: Stable Angina, Unstable Angina, STEMI, NSTEMI Aortic Dissection, Pneumothorax, Musculoskeletal, Esophageal Spasm GERD, Cholecystitis, Pancreatitis, Zoster, this is not meant to be an all-inclusive list. EKG interpreted by me (3pts min.). @ -Yes and demonstrates sinus rhythm with a rate of 92. [place] interval 132. QRS 98. QTc of 399. No acute ST segment elevations or depressions X-rays interpreted by me (1pt min.). @ -Yes which demonstrates no acute process CT interpreted by me (1pt min.). @ -None done U/S interpreted by me (1pt. min.). @ -None done What testing was considered but not performed or refused? (CT, X-rays, U/S, labs)? Why? @ -None What meds were considered but not given or refused? Why? @ -None Did you discuss the management of the patient with other professionals (saroj sorensen i.e. VICTOR HUGO [place], PALLIATIVE CARE COORDINATOR, lab, RT, psych nurse, social worker aide, as400 analyst, teacher, job placement officer, case checker)? Give summary @ -Spoke with sound for admission Was smoking cessation discussed for >3mins.? @ -No Was critical care preformed (if so, how long)? @ -Yes, 30 minutes for and stem management Were there social determinants of health that impacted care today? How? (Homelessness, low income, unemployed, alcoholism, drug addiction, transportation, low edu. Level, literacy, decrease access to med. care, long-term, rehab)? @ -No Was there de-escalation of care discussed even if they declined (Discuss DNR or withdrawal of care, Hospice)? DNR status @ -No What co-morbidities impacted this encounter? (DM, HTN, Smoking, COPD, CAD, Cancer, CVA, ARF, Chemo, Hep., AIDS, mental health diagnosis, sleep apnea, morbid obesity)? @ -Cervical disc disease, coronary disease Was patient admitted / discharged? Hospital course, mention meds given and route, prescriptions, significant lab abnormalities, going to OR and other pertinent info. @ -Upon arrival patient seen and evaluated in bed 14. Thorough history and physical exam was performed. IV was established. Patient ministered pain medications and Valium as a muscle relaxer. Patient is highly concerned that she has thrush and therefore I did order nystatin. Laboratory studies are conducted. X-ray performed of the chest. Upon review of the results the patient does have an elevation in her troponin level. I will hold heparin at this time as patient recently had spinal surgery. She continues to have uncontrolled pain. I did recommend admission for cardiology and orthopedic spine consult. Patient was agreeable to this. She is pending a bed on the floor in stable condition Undiagnosed new problem with uncertain prognosis? @ -Yes Drug Therapy requiring intensive monitoring for toxicity (Heparin, Nitro, Insulin, Cardizem)? @ -No Were any procedures done? @ -No Diagnosis/symptom? @ -Acute chest pain, acute neck pain, status post cervical fusion, NSTEMI Acute, or Chronic, or Acute on Chronic? @ -Acute Uncomplicated (without systemic symptoms) or Complicated (systemic symptoms)? @ -Complicated Side effects of treatment? @ -No Exacerbation, Progression, or Severe Exacerbation? @ -No Poses a threat to life or bodily function? How? (Chest pain, USA, ME, pneumonia, PE, COPD, DKA, ARF, appy, cholecystitis, CVA, Diverticulitis, Homicidal, Suicidal, threat to staff... and all critical care pts) @ -Yes as patient does have elevated troponin level - Lab Data Result diagrams: 09/16/24 06:43 09/16/24 06:43 Lab Results 1109/14/24 09/14/24 Range/Units 15:52 15:52 15:52 WBC 12.1 H (3.8-10.6) k/uL RBC 4.47 (3.80-5.40) m/uL Hgb 12.9 (11.4-16.0) gm/dL Hct 39.3 (34.0-46.0) % MCV 88.0 (80.0-100.0) fL MCH 28.9 (25.0-35.0) pg MCHC 32.8 (31.0-37.0) g/dL RDW 12.8 (11.5-15.5) % Plt Count 247 (150-450) k/uL MPV 7.6 Neutrophils % 74 % Lymphocytes % 18 % Monocytes % 5 % Eosinophils % 1 % Basophils % 0 % Neutrophils # 9.0 H (1.3-7.7) k/uL Lymphocytes # 2.2 (1.0-4.8) k/uL Monocytes # 0.6 (0-1.0) k/uL Eosinophils # 0.1 (0-0.7) k/uL Basophils # 0.0 (0-0.2) k/uL PT 10.9 (10.0-12.5) sec INR 1.0 (<1.2) APTT 18.4 L (22.0-30.0) sec Sodium 136 L (137-145) mmol/L Potassium 3.4 L (3.5-5.1) mmol/L Chloride 102 (98-107) mmol/L Carbon Dioxide 25 (22-30) mmol/L Anion Gap 9 mmol/L BUN 11 (7-17) mg/dL Creatinine 0.56 (0.52-1.04) mg/dL Est GFR (CKD-EPI)AfAm >90 (>60 ml/min/1.73 sqM) Est GFR (CKD-EPI)NonAf >90 (>60 ml/min/1.73 sqM) Glucose 307 H (74-99) mg/dL POC Glucose (mg/dL) (70-110) mg/dL POC Glu Corporate Receptionist ID Calcium 9.4 (8.4-10.2) mg/dL Magnesium 2.1 (1.6-2.3) mg/dL Total Bilirubin 1.1 (0.2-1.3) mg/dL AST 21 (14-36) U/L ALT 18 (4-34) U/L Alkaline Phosphatase 158 H (38-126) U/L Troponin I (0.000-0.034) ng/mL Total Protein 7.1 (6.3-8.2) g/dL Albumin 4.0 (3.5-5.0) g/dL 09/14/24 09/14/24 09/14/24 Range/Units 15:52 19:07 22:17 WBC (3.8-10.6) k/uL RBC (3.80-5.40) m/uL Hgb (11.4-16.0) gm/dL Hct (34.0-46.0) % MCV (80.0-100.0) fL MCH (25.0-35.0) pg MCHC (31.0-37.0) g/dL RDW (11.5-15.5) % Plt Count (150-450) k/uL MPV Neutrophils % % Lymphocytes % % Monocytes % % Eosinophils % % Basophils % % Neutrophils # (1.3-7.7) k/uL Lymphocytes # (1.0-4.8) k/uL Monocytes # (0-1.0) k/uL Eosinophils # (0-0.7) k/uL Basophils # (0-0.2) k/uL PT (10.0-12.5) sec INR (<1.2) APTT (22.0-30.0) sec Sodium (137-145) mmol/L Potassium (3.5-5.1) mmol/L Chloride (98-107) mmol/L Carbon Dioxide (22-30) mmol/L Anion Gap mmol/L BUN (7-17) mg/dL Creatinine (0.52-1.04) mg/dL Est GFR (CKD-EPI)AfAm (>60 ml/min/1.73 sqM) Est GFR (CKD-EPI)NonAf (>60 ml/min/1.73 sqM) Glucose (74-99) mg/dL POC Glucose (mg/dL) (70-110) mg/dL POC Glu Corporate Receptionist ID Calcium (8.4-10.2) mg/dL Magnesium (1.6-2.3) mg/dL Total Bilirubin (0.2-1.3) mg/dL AST (14-36) U/L ALT (4-34) U/L Alkaline Phosphatase (38-126) U/L Troponin I <0.012 0.048 H* 0.139 H* (0.000-0.034) ng/mL Total Protein (6.3-8.2) g/dL Albumin (3.5-5.0) g/dL 09/15/24 09/15/24 09/15/24 Range/Units 00:45 00:45 02:30 WBC 11.6 H (3.8-10.6) k/uL RBC 3.76 L (3.80-5.40) m/uL Hgb 11.3 L (11.4-16.0) gm/dL Hct 33.8 L (34.0-46.0) % MCV 89.7 (80.0-100.0) fL MCH 29.9 (25.0-35.0) pg MCHC 33.4 (31.0-37.0) g/dL RDW 12.8 (11.5-15.5) % Plt Count 232 (150-450) k/uL MPV 7.3 Neutrophils % 79 % Lymphocytes % 15 % Monocytes % 4 % Eosinophils % 1 % Basophils % 0 % Neutrophils # 9.1 H (1.3-7.7) k/uL Lymphocytes # 1.7 (1.0-4.8) k/uL Monocytes # 0.5 (0-1.0) k/uL Eosinophils # 0.1 (0-0.7) k/uL Basophils # 0.0 (0-0.2) k/uL PT 11.6 (10.0-12.5) sec INR 1.1 (<1.2) APTT 21.6 L (22.0-30.0) sec Sodium (137-145) mmol/L Potassium (3.5-5.1) mmol/L Chloride (98-107) mmol/L Carbon Dioxide (22-30) mmol/L Anion Gap mmol/L BUN (7-17) mg/dL Creatinine (0.52-1.04) mg/dL Est GFR (CKD-EPI)AfAm (>60 ml/min/1.73 sqM) Est GFR (CKD-EPI)NonAf (>60 ml/min/1.73 sqM) Glucose (74-99) mg/dL POC Glucose (mg/dL) 216 H (70-110) mg/dL POC Glu Corporate Receptionist ID Kelli Borjas Calcium (8.4-10.2) mg/dL Magnesium (1.6-2.3) mg/dL Total Bilirubin (0.2-1.3) mg/dL AST (14-36) U/L ALT (4-34) U/L Alkaline Phosphatase (38-126) U/L Troponin I (0.000-0.034) ng/mL Total Protein (6.3-8.2) g/dL Albumin (3.5-5.0) g/dL 09/15/24 09/15/24 09/15/24 Range/Units 05:45 05:45 05:45 WBC 11.8 H (3.8-10.6) k/uL RBC 4.13 (3.80-5.40) m/uL Hgb 12.4 (11.4-16.0) gm/dL Hct 37.5 (34.0-46.0) % MCV 90.6 (80.0-100.0) fL MCH 30.0 (25.0-35.0) pg MCHC 33.1 (31.0-37.0) g/dL RDW 12.8 (11.5-15.5) % Plt Count 267 (150-450) k/uL MPV 7.3 Neutrophils % 76 % Lymphocytes % 18 % Monocytes % 4 % Eosinophils % 1 % Basophils % 0 % Neutrophils # 8.9 H (1.3-7.7) k/uL Lymphocytes # 2.1 (1.0-4.8) k/uL Monocytes # 0.5 (0-1.0) k/uL Eosinophils # 0.1 (0-0.7) k/uL Basophils # 0.0 (0-0.2) k/uL PT (10.0-12.5) sec INR (<1.2) APTT 25.3 (22.0-30.0) sec Sodium 136 L (137-145) mmol/L Potassium 4.0 (3.5-5.1) mmol/L Chloride 102 (98-107) mmol/L Carbon Dioxide 25 (22-30) mmol/L Anion Gap 9 mmol/L BUN 11 (7-17) mg/dL Creatinine 0.53 (0.52-1.04) mg/dL Est GFR (CKD-EPI)AfAm >90 (>60 ml/min/1.73 sqM) Est GFR (CKD-EPI)NonAf >90 (>60 ml/min/1.73 sqM) Glucose 257 H (74-99) mg/dL POC Glucose (mg/dL) (70-110) mg/dL POC Glu Corporate Receptionist ID Calcium 9.3 (8.4-10.2) mg/dL Magnesium (1.6-2.3) mg/dL Total Bilirubin (0.2-1.3) mg/dL AST (14-36) U/L ALT (4-34) U/L Alkaline Phosphatase (38-126) U/L Troponin I (0.000-0.034) ng/mL Total Protein (6.3-8.2) g/dL Albumin (3.5-5.0) g/dL 09/15/24 09/15/24 09/15/24 Range/Units 07:15 07:43 10:46 WBC (3.8-10.6) k/uL RBC (3.80-5.40) m/uL Hgb (11.4-16.0) gm/dL Hct (34.0-46.0) % MCV (80.0-100.0) fL MCH (25.0-35.0) pg MCHC (31.0-37.0) g/dL RDW (11.5-15.5) % Plt Count (150-450) k/uL MPV Neutrophils % % Lymphocytes % % Monocytes % % Eosinophils % % Basophils % % Neutrophils # (1.3-7.7) k/uL Lymphocytes # (1.0-4.8) k/uL Monocytes # (0-1.0) k/uL Eosinophils # (0-0.7) k/uL Basophils # (0-0.2) k/uL PT (10.0-12.5) sec INR (<1.2) APTT (22.0-30.0) sec Sodium (137-145) mmol/L Potassium (3.5-5.1) mmol/L Chloride (98-107) mmol/L Carbon Dioxide (22-30) mmol/L Anion Gap mmol/L BUN (7-17) mg/dL Creatinine (0.52-1.04) mg/dL Est GFR (CKD-EPI)AfAm (>60 ml/min/1.73 sqM) Est GFR (CKD-EPI)NonAf (>60 ml/min/1.73 sqM) Glucose (74-99) mg/dL POC Glucose (mg/dL) 216 H (70-110) mg/dL POC Glu Corporate Receptionist ID Tino Dowell Calcium (8.4-10.2) mg/dL Magnesium (1.6-2.3) mg/dL Total Bilirubin (0.2-1.3) mg/dL AST (14-36) U/L ALT (4-34) U/L Alkaline Phosphatase (38-126) U/L Troponin I 0.234 H* 0.223 H* (0.000-0.034) ng/mL Total Protein (6.3-8.2) g/dL Albumin (3.5-5.0) g/dL 09/15/24 09/15/24 Range/Units 11:03 15:53 WBC (3.8-10.6) k/uL RBC (3.80-5.40) m/uL Hgb (11.4-16.0) gm/dL Hct (34.0-46.0) % MCV (80.0-100.0) fL MCH (25.0-35.0) pg MCHC (31.0-37.0) g/dL RDW (11.5-15.5) % Plt Count (150-450) k/uL MPV Neutrophils % % Lymphocytes % % Monocytes % % Eosinophils % % Basophils % % Neutrophils # (1.3-7.7) k/uL Lymphocytes # (1.0-4.8) k/uL Monocytes # (0-1.0) k/uL Eosinophils # (0-0.7) k/uL Basophils # (0-0.2) k/uL PT (10.0-12.5) sec INR (<1.2) APTT 48.3 H (22.0-30.0) sec Sodium (137-145) mmol/L Potassium (3.5-5.1) mmol/L Chloride (98-107) mmol/L Carbon Dioxide (22-30) mmol/L Anion Gap mmol/L BUN (7-17) mg/dL Creatinine (0.52-1.04) mg/dL Est GFR (CKD-EPI)AfAm (>60 ml/min/1.73 sqM) Est GFR (CKD-EPI)NonAf (>60 ml/min/1.73 sqM) Glucose (74-99) mg/dL POC Glucose (mg/dL) 240 H (70-110) mg/dL POC Glu Corporate Receptionist ID Mario Hernandez Calcium (8.4-10.2) mg/dL Magnesium (1.6-2.3) mg/dL Total Bilirubin (0.2-1.3) mg/dL AST (14-36) U/L ALT (4-34) U/L Alkaline Phosphatase (38-126) U/L Troponin I (0.000-0.034) ng/mL Total Protein (6.3-8.2) g/dL Albumin (3.5-5.0) g/dL Disposition Clinical Impression: Postoperative pain, Chest pain, S/P cervical spinal fusion Disposition: ADMITTED IP TO THIS [facility] Condition: Stable Is patient prescribed a controlled substance at d/c from ED?: No Time of Disposition: 17:10 Decision to Admit Reason: Admit from EC Decision Date: 09/14/24 Decision Time: 17:10
[2024-09-14] MEDS ORDERED: NALOXONE 0.4 MG/ML 1 ML VIAL IV PRN (17:12)
[2024-09-14] MEDS: FAMOTIDINE 20 MG/2 ML VIAL IV STA (17:17)
[2024-09-14] MEDS: SODIUM CHLORIDE 0.9% 1,000 ML IV SCH (17:21)
[2024-09-14] MEDS: NYSTATIN 100,000 UNIT/ML SUSP 500,000 UNIT/5 ML CUP PO SCH (17:23)
[2024-09-14] MEDS ORDERED: tiZANidine 4 MG TAB PO PRN (17:33)
[2024-09-14] MEDS: hydroCHLOROthiazide 25 MG TAB PO SCH (17:48)
[2024-09-14] MEDS: amLODIPine 2.5 MG TAB PO SCH (17:48)
[2024-09-14] MEDS: ISOSORBIDE MONONITRATE ER 30 MG TAB.ER.24H PO SCH (17:48)
[2024-09-14] MEDS: METOPROLOL SUCCINATE (ER) 50 MG TAB.ER.24H PO SCH (17:48)
[2024-09-14] MEDS: NYSTATIN 100,000 UNIT/ML SUSP 500,000 UNIT/5 ML CUP PO STA (17:50)
[2024-09-14] MEDS: metFORMIN 500 MG TAB PO SCH (21:10)
[2024-09-14] MEDS: GABAPENTIN 300 MG CAP PO SCH (21:11)
[2024-09-14] MEDS: LOSARTAN 25 MG TAB PO SCH (21:11)
[2024-09-14] MEDS: FERROUS SULFATE 325 MG TAB PO SCH (21:12)
[2024-09-14] MEDS: ATORVASTATIN 80 MG TAB PO SCH (21:12)
[2024-09-14] MEDS: tiZANidine 4 MG TAB PO SCH (21:12)
[2024-09-14] MEDS: NON FORMULARY DRUG (Lubiprostone [Amitiza] 24 MCG Capsule) PO SCH (22:13)
[2024-09-14] MEDS: HYDROmorphone 1 MG/ML 1 ML SYRINGE IVP PRN (22:32)
--- NOTE | 2024-09-14 22:33 | P.HPIM ---
History of Present Illness H&P Date: 09/14/24 Chief Complaint: Neck pain History of present illness; 53-year-old female with a PMH of CAD status post CABG in December 2023, type 2 diabetes, cervical radiculopathy status post C3-4 C4- 5 C5-6 C6-7 arthrodesis with insertion of cages on 09/10, GERD, rheumatoid arthritis and COPD presents with complaints of chest, back, and neck pain. Patien had a cervical fusion done by Dr. Pettit on 09/10/2024 and was discharged on the with [place] for pain control, but states it has not been controlling her pain. States she has significant posterior and lateral neck pain which has slowly become worse since she was discharged from the hospital. Notes she has not been able to swallow and feels like her pain medication is getting stuck in her throat. Reports her blood pressure has been high as she cannot swallow her blood pressure medications. Also admits to some chest pain which she rates as a 5-6 out of 10 and characterizes it as sharp, dull, and achy. Reports the pain feels similar to after she had her CABG earlier this year. Reports it is generalized but mostly central in nature without radiation. States the chest pain occurs at rest and on exertion. Notes she has abdominal pain as well in addition to constipation, has not had a bowel movement since being admitted to the hospital last time. Also admits to nausea without vomitin g. Denies fevers, recent trauma, numbness, tingling, or weakness in her extremities, shortness of breath. At time of interview, patient continues to have neck pain as well as chest pain. Labs: WBC 12.1, hemoglobin 12.9, neutrophils 9.0, APTT 18.4, sodium 136, potassium 3.4, glucose 307, alkaline phosphatase 158, troponin less than 0.012-->0.04. Imaging: - EKG done in the ER showed heart rate of 92 bpm, sinus rhythm, possible left atrial enlargement, left ventricular hypertrophy, and QTc of 399. - ER CXR: No acute cardiopulmonary process. REVIEW OF SYSTEMS: As stated above in HPI. The rest of the 14-point review of systems is negative. PHYSICAL EXAMINATION: GENERAL: The patient is alert and oriented x3. Well developed, well nourished. Morbidly obese HEENT: Pupils are round and equally reacting to light. EOMI. No scleral icterus. No conjunctival pallor. Normocephalic, atraumatic. CARDIOVASCULAR: S1 and S2 present. No murmurs, rubs, or gallops. PULMONARY: Chest is clear to auscultation b/l, no wheezing or crackles. ABDOMEN: Soft, nontender, nondistended, normoactive bowel sounds. No palpable organomegaly. MUSCULOSKELETAL: No joint swelling or deformity. C-collar in place, lateral and posterior neck tenderness appreciated bilaterally. EXTREMITIES: No cyanosis, clubbing, or pedal edema. NEUROLOGICAL: Gross neurological examination did not reveal any focal deficits. SKIN: No rashes. Assessment and Plan 53-year-old female with a PMH of CAD status post CABG in December 2023, type 2 diabetes, cervical radiculopathy status post C3-4 C4-5 C5-6 C6-7 arthrodesis with insertion of cages, GERD, rheumatoid arthritis and COPD presents with complaints of chest, back, and neck pain. Patient is being worked up for neck pain likely secondary to recent cervical fusion as well as an elevated troponin. #Neck pain status post recent cervical fusion: -Change pain medication to morphine 4 mg IVP every 4 hours as needed -Orthopedics consulted -Continue recent discharge medications, status post cervical fusion, including Keflex #Elevated troponin: Rule out ACS -Troponin 0.012-->0.048-->0.139, continue to trend troponin -Repeat EKG showed sinus rhythm with short AL interval, possible left atrial enlargement, and left ventricular hypertrophy -Echo from 05/14 showed EF 60%, mild septal wall thickness, mild increased posterior wall thickness, no obvious regional wall abnormalities. -Echo ordered -Cardiology consulted -Heparin drip ordered -Cardiac monitoring #SIRS criteria, without obvious infectious source -WBC 12.1, HR 100, and RR 22 -Leukocytosis likely reactive, secondary to pain -Chest x-ray shows no acute cardiopulmonary process -Continue IV fluids -Continue to monitor #Hypokalemia: -Potassium 3.4 -Give one-time dose potassium 40 mEq PO -Follow-up BMP in the a.m. Chronic Conditions: #Type 2 diabetes: -Hold home medications -Sliding scale -Accu-Cheks #CAD status post CABG -Continue medication #Rheumatoid arthritis: -Continue home medication #COPD: -Not in acute exacerbation, not on any home meds -Continue to monitor F: NS 75 cc/h E: Replace as needed N: Pured diet DVT ppx: Heparin infusion GI ppx: Protonix 40 mg p.o. daily CODE STATUS: Full code Dispo: Pending medical course Ladonna Layne MD PGY-1 FM Dictation was produced using [employer] dictation software. please excuse any grammatical, word or spelling errors. Past Medical History Past Medical History: Asthma, Coronary Artery Disease (CAD), COPD, Diabetes Mellitus, Hyperlipidemia, Hypertension, Myocardial Infarction ([place]), Musculoskeletal Disorder, Rheumatoid Arthritis (RA), Thyroid Disorder Additional Past Medical History / Comment(s): Back Pain, right shoulder pain, Hx Pituitary Tumor, BENIGN. Thyroid disorder. 3 heart attacks-most recent March 2022, 3 stents total, neuropathy; left-sided pleural effusion Last Myocardial Infarction Date:: 10/29/22 History of Any Multi-Drug Resistant Organisms: None Reported Past Surgical History: Section, Coronary Bypass/CABG, Heart Catheterization With Stent, Tubal Ligation Additional Past Surgical History / Comment(s): Pituitary Tumor Removed. colonoscopy, PAIN CLINIC PROCEDURES stents x3 c section x4; three-vessel off- pump CABG January 04, 2024; left-sided thoracentesis with removal of 950 mL fluid on January 22, 2024 Past Anesthesia/Blood Transfusion Reactions: No Reported Reaction Date of Last Stent Placement:: March 2022 Past Psychological History: Anxiety, Depression Smoking Status: Former smoker Past Alcohol Use History: None Reported Past Drug Use History: Marijuana - Past Family History Mother History Unknown: Yes Family Medical History: Deep Vein Thrombosis (DVT) Additional Family Medical History / Comment(s): Mother is alive at age 67 with history of coronary artery disease and three-vessel CABG. Daughter(s) History Unknown: Yes Family Medical History: Deep Vein Thrombosis (DVT) Additional Family Medical History / Comment(s): Patient has a total of 9 children with no major medical problems. Father History Unknown: Yes Family Medical History: Cancer Additional Family Medical History / Comment(s): Father is alive with no history of coronary artery disease. History of Prostate Cancer Sister(s) History Unknown: Yes Additional Family Medical History / Comment(s): The patient has 4 sisters and 1 brother. One sister had a myocardial infraction at age 40. Medications and Allergies Home Medications Medication Instructions Recorded Confirmed Type metFORMIN HCL [Glucophage] 1,000 mg PO BID 01/19/22 09/14/24 History Metoprolol Succinate (ER) [Toprol 50 mg PO DAILY 03/01/24 09/14/24 History XL] Pantoprazole [Protonix] 40 mg PO DAILY 03/01/24 09/14/24 History Ferrous Sulfate [Iron (65 MG 325 mg PO BID 05/07/24 09/14/24 History Elemental)] Gabapentin [Neurontin] 300 mg PO BID 05/07/24 09/14/24 History Meenakshi Multivitamin Gummy 2 tab PO DAILY 05/07/24 09/14/24 History Isosorbide Mononitrate ER [Imdur] 30 mg PO DAILY 05/07/24 09/14/24 History Losartan [Cozaar] 25 mg PO HS 05/07/24 09/14/24 History amLODIPine [Norvasc] 2.5 mg PO DAILY 05/07/24 09/14/24 History hydroCHLOROthiazide 25 mg PO DAILY 05/07/24 09/14/24 History Aspirin 81 mg PO DAILY 09/05/24 09/14/24 History Atorvastatin [Lipitor] 80 mg PO HS 09/05/24 09/14/24 History Clopidogrel [Plavix] 75 mg PO DAILY 09/05/24 09/14/24 History Lubiprostone [Amitiza] 24 mcg PO TID 09/05/24 09/14/24 History tiZANidine [Zanaflex] 2 mg PO BID 09/05/24 09/14/24 History Dapagliflozin Propanediol [Farxiga] 10 mg PO DAILY #90 tab 09/12/24 09/14/24 Rx Ezetimibe [Zetia] 10 mg PO DAILY #90 tab 09/12/24 09/14/24 Rx HYDROcodone/APAP 10-325MG [[place] 1 tab PO Q4-6H PRN #40 tab 09/12/24 09/14/24 Rx 10-325] Hydrocortisone [Cortef] 5 mg PO HS #60 tab 09/12/24 09/14/24 Rx Hydrocortisone [Cortef] 10 mg PO DAILY #60 tab 09/12/24 09/14/24 Rx cefaDROXiL [Duricef] 500 mg PO Q12HR #10 cap 09/12/24 09/14/24 Rx tiZANidine [Zanaflex] 2 mg PO TID PRN #40 tab 09/12/24 09/14/24 Rx Nitroglycerin Sl Tabs [Nitrostat] 0.4 mg SUBLINGUAL Q5M PRN 09/14/24 09/14/24 History Sennosides-Docusate Sodium 2 tab PO DAILY 09/14/24 09/14/24 History [Senokot-S] Allergies Allergy/AdvReac Type Severity Reaction Status Date / Time peanut Allergy HIVES Verified 09/05/24 12:41 rice Allergy Rash/Hives Verified 09/05/24 12:41 seasonal Allergy Rash/Hives Uncoded 09/05/24 12:41 Physical Exam Vitals: Vital Signs Temp Pulse Pulse Resp BP Pulse Ox 09/14/24 17:50 99.0 F 97 20 165/70 95 09/14/24 17:15 95 20 190/101 96 09/14/24 16:39 100 09/14/24 16:24 100 20 149/76 100 09/14/24 16:04 98.1 F 96 22 183/121 100 09/14/24 14:32 99.0 F 145 H 18 146/76 99 Intake and Output 09/14/24 09/14/24 09/14/24 06:59 14:59 22:59 Other: Weight 86.183 kg Results CBC & Chem 7: 09/15/24 00:45 09/14/24 15:52 Labs: Abnormal Lab Results - Last 24 Hours (Table) 09/14/24 09/14/24 09/14/24 Range/Units 15:52 15:52 15:52 WBC 12.1 H (3.8-10.6) k/uL Neutrophils # 9.0 H (1.3-7.7) k/uL APTT 18.4 L (22.0-30.0) sec Sodium 136 L (137-145) mmol/L Potassium 3.4 L (3.5-5.1) mmol/L Glucose 307 H (74-99) mg/dL Alkaline Phosphatase 158 H (38-126) U/L Troponin I (0.000-0.034) ng/mL 09/14/24 Range/Units 19:07 WBC (3.8-10.6) k/uL Neutrophils # (1.3-7.7) k/uL APTT (22.0-30.0) sec Sodium (137-145) mmol/L Potassium (3.5-5.1) mmol/L Glucose (74-99) mg/dL Alkaline Phosphatase (38-126) U/L Troponin I 0.048 H* (0.000-0.034) ng/mL
[2024-09-14] MEDS: CEPHALEXIN 250 MG CAP PO SCH (22:36)
[2024-09-14] MEDS: HYDROCORTISONE 10 MG TAB PO SCH (22:37)
[2024-09-15] MEDS: ONDANSETRON 4 MG/2 ML VIAL IVP PRN (00:05)
[2024-09-15] MEDS: HEPARIN SOD,PORK IN 0.45% NACL 25,000 UNIT in 0.45% NACL 1 250ML.BAG IV SCH (00:44)
[2024-09-15 01:00] LABS: Basophils % (A) 0 %; Eosinophils # (A) 0.1 k/uL (0-0.7); Eosinophils % (A) 1 %; HCT 33.8 % (34.0-46.0); HGB 11.3 gm/dL (11.4-16.0); Lymphocytes # (A) 1.7 k/uL (1.0-4.8); Lymphocytes % (A) 15 %; MCH 29.9 pg (25.0-35.0); MCHC 33.4 g/dL (31.0-37.0); MCV 89.7 fL (80.0-100.0); Mean Platelet Volume 7.3; Monocytes # (A) 0.5 k/uL (0-1.0); Monocytes % (A) 4 %; Neutrophils # (A) 9.1 k/uL (1.3-7.7); Neutrophils % (A) 79 %; Platelet Count 232 k/uL (150-450); RBC 3.76 m/uL (3.80-5.40); RDW 12.8 % (11.5-15.5); WBC 11.6 k/uL (3.8-10.6)
[2024-09-15] MEDS ORDERED: DEXTROSE 50% SYRINGE 50 ML IVP PRN ×2 (01:13)
[2024-09-15 01:14] LABS: INR 1.1 (<1.2); Prothrombin Time 11.6 sec (10.0-12.5)
[2024-09-15 01:15] LABS: Partial Thromboplastin Time 21.6 sec (22.0-30.0)
[2024-09-15] MEDS: MORPHINE SULFATE 4 MG/ML SYRINGE IVP PRN (02:20)
[2024-09-15] MEDS: POTASSIUM CHLORIDE ER 20 MEQ TAB.ER PO STA (02:25)
[2024-09-15 02:31] LABS: Glucose,Whole Blood 216 mg/dL (70-110)
[2024-09-15 06:07] LABS: Basophils % (A) 0 %; Eosinophils # (A) 0.1 k/uL (0-0.7); Eosinophils % (A) 1 %; HCT 37.5 % (34.0-46.0); HGB 12.4 gm/dL (11.4-16.0); Lymphocytes # (A) 2.1 k/uL (1.0-4.8); Lymphocytes % (A) 18 %; MCHC 33.1 g/dL (31.0-37.0); MCV 90.6 fL (80.0-100.0); Mean Platelet Volume 7.3; Monocytes # (A) 0.5 k/uL (0-1.0); Monocytes % (A) 4 %; Neutrophils # (A) 8.9 k/uL (1.3-7.7); Neutrophils % (A) 76 %; Platelet Count 267 k/uL (150-450); RBC 4.13 m/uL (3.80-5.40); RDW 12.8 % (11.5-15.5); WBC 11.8 k/uL (3.8-10.6)
[2024-09-15 06:18] LABS: African American GFR (CKD) >90 (>60 ml/min/1.73 sqM); Anion Gap 9 mmol/L; Blood Urea Nitrogen 11 mg/dL (7-17); Calcium 9.3 mg/dL (8.4-10.2); Carbon Dioxide 25 mmol/L (22-30); Chloride 102 mmol/L (98-107); Glucose 257 mg/dL (74-99); Non-African American GFR(CKD) >90 (>60 ml/min/1.73 sqM); Sodium 136 mmol/L (137-145)
[2024-09-15 07:45] LABS: Glucose,Whole Blood 216 mg/dL (70-110)
[2024-09-15] MEDS: INSULIN ASPART (NovoLOG) 100 UNIT/ML VIAL SQ SCH (08:01)
[2024-09-15] MEDS: HEPARIN SODIUM 1,000 UN/ML (10ML VL) IV PRN (08:08)
[2024-09-15] MEDS: SENNOSIDES-DOCUSATE SODIUM 1 EACH TAB PO SCH (08:34)
[2024-09-15] MEDS: EZETIMIBE 10 MG TAB PO SCH (08:35)
[2024-09-15] MEDS: CLOPIDOGREL 75 MG TAB PO SCH (08:35)
[2024-09-15] MEDS: ASPIRIN 81 MG PO SCH (08:35)
[2024-09-15] MEDS: PANTOPRAZOLE 40 MG TABLET PO SCH (08:36)
[2024-09-15] MEDS: HYDROCORTISONE 10 MG TAB PO SCH (08:38)
[2024-09-15] MEDS ORDERED: DAPAGLIFLOZIN PROPANEDIOL 10 MG TABLET PO SCH (09:00)
[2024-09-15] MEDS: HYDROmorphone 1 MG/ML 1 ML SYRINGE IVP PRN (10:23)
--- NOTE | 2024-09-15 11:02 | P.CRDCN ---
History of Present Illness History of present illness: HISTORY OF PRESENT ILLNESS: This is a 53-year-old female with a past medical history significant for coronary artery disease with previous CABG in 12/2023, diabetes, GERD, rheumatoid arthritis, COPD, and cervical radiculopathy. Patient follows in the office with Dr. Ojeda. We have been asked to see the patient in consultation for elevated troponins. Patient examined at the bedside in the emergency room. Patient presented to the hospital to chief complaint of chest pain and neck pain. Patient recently underwent cervical fusion on September 10, 2024. At the time of examination she continues to report neck pain. She denies any chest pain at the time of exam. She was found to have elevated troponins and was started on IV heparin. DIAGNOSTICS: - EKG reveals sinus mechanism with no signs of acute ischemia - Chest xray negative for acute process - Laboratory data: WBC 11.8. Hemoglobin 12.4. Platelet count 267. Sodium 136. Potassium 4.0. BUN 11. Creatinine 0.53. Troponin 0.012. 0.048. 0.139. - Current home cardiac medications include aspirin 81 mg daily, Lipitor 80 mg at night, Plavix 75 mg daily, Farxiga 10 mg daily, Zetia 10 mg daily, Imdur 30 mg daily, losartan 25 mg at night, metoprolol succinate 50 mg daily, amlodipine 2.5 mg daily, hydrochlorothiazide 25 mg daily - Most recent echocardiogram obtained in 04/2024 revealed ejection fraction 60%, trace MR, mild TR - Cardiac catheterization history: November 2023 revealing severe disease of ostial and proximal left main, severe disease of ostial LAD, and severe disease of proximal RCA REVIEW OF SYSTEMS: At the time of my exam: CONSTITUTIONAL: Denies fever or chills. HEENT: Denies blurred vision, vision changes, or eye pain. Denies hemoptysis CARDIOVASCULAR: Denies chest pain. Denies orthopnea. Denies PND. Denies palpitations RESPIRATORY: Denies shortness of breath. GASTROINTESTINAL: Denies abdominal pain. Denies nausea or vomiting. HEMATOLOGIC: Denies bleeding disorders. GENITOURINARY: Denies any blood in urine. SKIN: Denies pruitis. Denies rash. PHYSICAL EXAM: VITAL SIGNS: Reviewed. GENERAL: Well-developed in no acute distress. HEENT: Head is normocephalic. Pupils are equal, round. Sclerae anicteric. Mucous membranes of the mouth are moist. Neck supple. No JVD or thyromegaly. Cervical collar noted. LUNGS: Respirations even and unlabored. Lungs essentially clear to auscultation bilaterally. HEART: Regular rate and rhythm. S1 and S2 heard. ABDOMEN: Soft. Nondistended. Nontender. EXTREMITIES: Normal range of motion. No clubbing or cyanosis. Peripheral pulses intact. No lower extremity edema NEUROLOGIC: Awake and alert. Oriented x 3. ASSESSMENT: Non-STEMI Neck pain, status post cervical fusion on 09/10/2024 Coronary artery disease with previous CABG, 12/2023 Hypertension Hyperlipidemia Diabetes GERD History of rheumatoid arthritis COPD PLAN: Obtain 2D echo to assess cardiac structure and function Resume home cardiac medications Continue IV heparin Obtain additional troponin N.p.o. at midnight Patient will be reevaluated tomorrow morning and determination will be made at that time if patient will undergo cardiac catheterization. Further recommendations pending patient course Nurse practitioner note has been reviewed by physician. Signing provider agrees with the documented findings, assessment, and plan of care documented by [employer] as a scribe. Past Medical History Past Medical History: Asthma, Coronary Artery Disease (CAD), COPD, Diabetes Mellitus, Hyperlipidemia, Hypertension, Myocardial Infarction ([place]), Musculos keletal Disorder, Rheumatoid Arthritis (RA), Thyroid Disorder Additional Past Medical History / Comment(s): Back Pain, right shoulder pain, Hx Pituitary Tumor, BENIGN. Thyroid disorder. 3 heart attacks-most recent March 2022, 3 stents total, neuropathy; left-sided pleural effusion Last Myocardial Infarction Date:: 10/29/22 History of Any Multi-Drug Resistant Organisms: None Reported Past Surgical History: Section, Coronary Bypass/CABG, Heart Catheterization With Stent, Tubal Ligation Additional Past Surgical History / Comment(s): Pituitary Tumor Removed. colon oscopy, PAIN CLINIC PROCEDURES stents x3 c section x4; three-vessel off-pump CABG January 04, 2024; left-sided thoracentesis with removal of 950 mL fluid on January 22, 2024 Past Anesthesia/Blood Transfusion Reactions: No Reported Reaction Date of Last Stent Placement:: March 2022 Past Psychological History: Anxiety, Depression Smoking Status: Former smoker Past Alcohol Use History: None Reported Past Drug Use History: Marijuana - Past Family History Mother History Unknown: Yes Family Medical History: Deep Vein Thrombosis (DVT) Additional Family Medical History / Comment(s): Mother is alive at age 67 with history of coronary artery disease and three-vessel CABG. Daughter(s) History Unknown: Yes Family Medical History: Deep Vein Thrombosis (DVT) Additional Family Medical History / Comment(s): Patient has a total of 9 children with no major medical problems. Father History Unknown: Yes Family Medical History: Cancer Additional Family Medical History / Comment(s): Father is alive with no history of coronary artery disease. History of Prostate Cancer Sister(s) History Unknown: Yes Additional Family Medical History / Comment(s): The patient has 4 sisters and 1 brother. One sister had a myocardial infraction at age 40. Medications and Allergies Home Medications Medication Instructions Recorded Confirmed Type metFORMIN HCL [Glucophage] 1,000 mg PO BID 01/19/22 09/14/24 History Metoprolol Succinate (ER) [Toprol 50 mg PO DAILY 03/01/24 09/14/24 History XL] Pantoprazole [Protonix] 40 mg PO DAILY 03/01/24 09/14/24 History Ferrous Sulfate [Iron (65 MG 325 mg PO BID 05/07/24 09/14/24 History Elemental)] Gabapentin [Neurontin] 300 mg PO BID 05/07/24 09/14/24 History Meenakshi Multivitamin Gummy 2 tab PO DAILY 05/07/24 09/14/24 History Isosorbide Mononitrate ER [Imdur] 30 mg PO DAILY 05/07/24 09/14/24 History Losartan [Cozaar] 25 mg PO HS 05/07/24 09/14/24 History amLODIPine [Norvasc] 2.5 mg PO DAILY 05/07/24 09/14/24 History hydroCHLOROthiazide 25 mg PO DAILY 05/07/24 09/14/24 History Aspirin 81 mg PO DAILY 09/05/24 09/14/24 History Atorvastatin [Lipitor] 80 mg PO HS 09/05/24 09/14/24 History Clopidogrel [Plavix] 75 mg PO DAILY 09/05/24 09/14/24 History Lubiprostone [Amitiza] 24 mcg PO TID 09/05/24 09/14/24 History tiZANidine [Zanaflex] 2 mg PO BID 09/05/24 09/14/24 History Dapagliflozin Propanediol [Farxiga] 10 mg PO DAILY #90 tab 09/12/24 09/14/24 Rx Ezetimibe [Zetia] 10 mg PO DAILY #90 tab 09/12/24 09/14/24 Rx HYDROcodone/APAP 10-325MG [[place] 1 tab PO Q4-6H PRN #40 tab 09/12/24 09/14/24 Rx 10-325] Hydrocortisone [Cortef] 5 mg PO HS #60 tab 09/12/24 09/14/24 Rx Hydrocortisone [Cortef] 10 mg PO DAILY #60 tab 09/12/24 09/14/24 Rx cefaDROXiL [Duricef] 500 mg PO Q12HR #10 cap 09/12/24 09/14/24 Rx tiZANidine [Zanaflex] 2 mg PO TID PRN #40 tab 09/12/24 09/14/24 Rx Nitroglycerin Sl Tabs [Nitrostat] 0.4 mg SUBLINGUAL Q5M PRN 09/14/24 09/14/24 History Sennosides-Docusate Sodium 2 tab PO DAILY 09/14/24 09/14/24 History [Senokot-S] Allergies Allergy/AdvReac Type Severity Reaction Status Date / Time peanut Allergy HIVES Verified 09/05/24 12:41 rice Allergy Rash/Hives Verified 09/05/24 12:41 seasonal Allergy Rash/Hives Uncoded 09/05/24 12:41 Physical Exam Vitals: Vital Signs Temp Pulse Pulse Resp BP BP Pulse Ox 09/15/24 08:00 98.0 F 87 16 152/98 94 L 09/15/24 05:02 88 19 95 09/15/24 00:09 74 17 103/50 95 09/14/24 23:29 98 17 95/63 98 09/14/24 21:08 98.7 F 105 H 17 149/75 94 L 09/14/24 17:50 99.0 F 97 20 165/70 95 09/14/24 17:15 95 20 190/101 96 09/14/24 16:39 100 09/14/24 16:24 100 20 149/76 100 09/14/24 16:04 98.1 F 96 22 183/121 100 09/14/24 14:32 99.0 F 145 H 18 146/76 99 Intake and Output 09/14/24 09/15/24 09/15/24 22:59 06:59 14:59 Intake Total 73.811 Balance 73.811 Intake: Intake, IV Titration 73.811 Amount Heparin Sod,Pork in 0.45% 73.811 NaCl 25,000 unit In 0.45 % NaCl 1 250ml.bag @ 11.6 UNITS/KG/HR 9.997 mls/hr IV .Q24H [facility] Rx#: [id number] Results 09/15/24 05:45 09/15/24 05:45 Cardiac Enzymes 09/14/24 09/14/24 09/14/24 Range/Units 15:52 15:52 19:07 AST 21 (14-36) U/L Troponin I <0.012 0.048 H* (0.000-0.034) ng/mL 09/14/24 Range/Units 22:17 AST (14-36) U/L Troponin I 0.139 H* (0.000-0.034) ng/mL Coagulation 09/14/24 09/15/24 09/15/24 Range/Units 15:52 00:45 05:45 PT 10.9 11.6 (10.0-12.5) sec APTT 18.4 L 21.6 L 25.3 (22.0-30.0) sec CBC 09/14/24 09/15/24 09/15/24 Range/Units 15:52 00:45 05:45 WBC 12.1 H 11.6 H 11.8 H (3.8-10.6) k/uL RBC 4.47 3.76 L 4.13 (3.80-5.40) m/uL Hgb 12.9 11.3 L 12.4 (11.4-16.0) gm/dL Hct 39.3 33.8 L 37.5 (34.0-46.0) % Plt Count 247 232 267 (150-450) k/uL Comprehensive Metabolic Panel 09/14/24 09/15/24 Range/Units 15:52 05:45 Sodium 136 L 136 L (137-145) mmol/L Potassium 3.4 L 4.0 (3.5-5.1) mmol/L Chloride 102 102 (98-107) mmol/L Carbon Dioxide 25 25 (22-30) mmol/L BUN 11 11 (7-17) mg/dL Creatinine 0.56 0.53 (0.52-1.04) mg/dL Glucose 307 H 257 H (74-99) mg/dL Calcium 9.4 9.3 (8.4-10.2) mg/dL AST 21 (14-36) U/L ALT 18 (4-34) U/L Alkaline Phosphatase 158 H (38-126) U/L Total Protein 7.1 (6.3-8.2) g/dL Albumin 4.0 (3.5-5.0) g/dL Current Medications Generic Name Dose Route Start Last Admin Trade Name Freq PRN Reason Stop Dose Admin Amlodipine Besylate 2.5 mg 09/14/24 17:45 09/14/24 17:48 Amlodipine 2.5 Mg Tab PO 2.5 mg DAILY TIERA Administration Aspirin 81 mg 09/15/24 09:00 Aspirin 81 Mg PO DAILY TIERA Atorvastatin Calcium 80 mg 09/14/24 21:00 09/14/24 21:12 Atorvastatin 80 Mg Tab PO 80 mg HS TIERA Administration Cephalexin 250 mg 09/14/24 21:00 09/15/24 02:26 Cephalexin 250 Mg Cap PO 250 mg Q6H TIERA Administration Clopidogrel Bisulfate 75 mg 09/15/24 09:00 Clopidogrel 75 Mg Tab PO DAILY TIERA Dextrose/Water 25 ml 09/15/24 01:13 Dextrose 50% Syringe 50 Ml IVP PER PROTOCOL PRN Hypoglycemia Protocol Dextrose/Water 50 ml 09/15/24 01:13 Dextrose 50% Syringe 50 Ml IVP PER PROTOCOL PRN Hypoglycemia Protocol Ezetimibe 10 mg 09/15/24 09:00 Ezetimibe 10 Mg Tab PO DAILY TIERA Ferrous Sulfate 325 mg 09/14/24 21:00 09/14/24 21:12 Ferrous Sulfate 325 Mg Tab PO 325 mg BID TIERA Administration Gabapentin 300 mg 09/14/24 21:00 09/14/24 21:11 Gabapentin 300 Mg Cap PO 300 mg BID TIERA Administration Heparin Sodium (Porcine) 0 unit 09/15/24 00:18 09/15/24 08:08 Heparin Sodium 1,000 Un/Ml (10ml Vl) IV 4,000 unit PER PROTOCOL PRN Administration Low PTT Protocol Hydrochlorothiazide 25 mg 09/14/24 17:45 09/14/24 17:48 Hydrochlorothiazide 25 Mg Tab PO 25 mg DAILY TIERA Administration Hydrocortisone 5 mg 09/14/24 21:00 09/14/24 22:37 Hydrocortisone 10 Mg Tab PO 5 mg HS TIERA Administration Hydrocortisone 10 mg 09/15/24 09:00 Hydrocortisone 10 Mg Tab PO DAILY TIERA Sodium Chloride 1,000 mls @ 75 mls/hr 09/14/24 17:30 09/15/24 08:02 Saline 0.9% IV 75 mls/hr .[id number] TIERA Administration Heparin Sodium/Sodium Chloride 250 mls @ 9.997 mls/hr 09/15/24 00:30 09/15/24 08:07 25,000 unit/ Sodium Chloride IV 14.6 units/kg/hr .Q24H TIERA 12.583 mls/hr Titration Protocol 11.6 UNITS/KG/HR Insulin Aspart 0 unit 09/15/24 07:30 09/15/24 08:01 Insulin Aspart (Novolog) 100 Unit/Ml Vial SQ 4 unit ACHS TIERA Administration Protocol Isosorbide Mononitrate 30 mg 09/14/24 17:45 09/14/24 17:48 Isosorbide Mononitrate Er 30 Mg Tab.Er.24h PO 30 mg DAILY TIERA Administration Losartan Potassium 25 mg 09/14/24 21:00 09/14/24 21:11 Losartan 25 Mg Tab PO 25 mg HS TIERA Administration Metoprolol Succinate 50 mg 09/14/24 17:45 09/14/24 17:48 Metoprolol Succinate (Er) 50 Mg Tab.Er.24h PO 50 mg DAILY TIERA Administration Morphine Sulfate 4 mg 09/15/24 01:06 09/15/24 02:20 Morphine Sulfate 4 Mg/Ml Syringe IVP 4 mg Q4HR PRN Administration Pain/Discomfort Naloxone HCl 0.2 mg 09/14/24 17:12 Naloxone 0.4 Mg/Ml 1 Ml Vial IV Q2M PRN Opioid Reversal Non-Formulary Medication 24 mcg 09/14/24 22:00 09/14/24 22:13 Lubiprostone [Amitiza] PO Not Given TID [facility] Nystatin 500,000 unit 09/14/24 18:00 09/14/24 22:37 Nystatin 100,000 Unit/Ml Susp 500,000 Unit/5 Ml Cup PO 500,000 unit QID TIERA Administration Protocol Ondansetron HCl 4 mg 09/14/24 23:30 09/15/24 00:05 Ondansetron 4 Mg/2 Ml Vial IVP 4 mg Q6H PRN Administration Nausea Pantoprazole Sodium 40 mg 09/15/24 09:00 Pantoprazole 40 Mg Tablet PO DAILY [facility] Senna/Docusate Sodium 2 each 09/15/24 09:00 Sennosides-Docusate Sodium 1 Each Tab PO DAILY [facility] Tizanidine HCl 2 mg 09/14/24 21:00 09/14/24 21:12 Tizanidine 4 Mg Tab PO 2 mg BID [facility] Administration Tizanidine HCl 2 mg 09/14/24 17:33 Tizanidine 4 Mg Tab PO TID PRN Muscle Spasm Intake and Output 09/14/24 09/15/24 09/15/24 22:59 06:59 14:59 Intake Total 73.811 Balance 73.811 Intake: Intake, IV Titration 73.811 Amount Heparin Sod,Pork in 0.45% 73.811 NaCl 25,000 unit In 0.45 % NaCl 1 250ml.bag @ 11.6 UNITS/KG/HR 9.997 mls/hr IV .Q24H [facility] Rx#: [id number] 09/15/24 05:45 09/15/24 05:45
[2024-09-15 11:08] LABS: Glucose,Whole Blood 240 mg/dL (70-110)
[2024-09-15] MEDS: ACETAMINOPHEN TAB 325 MG TAB PO PRN (11:29)
--- NOTE | 2024-09-15 11:41 | CA ---
Transthoracic Echo Report Name: Eleazar Balbuena Age: 53 Gender: F : 1970 Exam Date: 09/15/2024 09:49 Exam Location: [facility] Ht (in): 58 Wt (lb): 190 Ordering Physician: Ladonna Layne MD Attending/Referring Phys: Head Of Housekeeping Aditi Mcqueen RDCS Procedure CPT: Indications: nstemi Cardiac Hx: CABG Technical Quality: Fair Contrast 1: Definity Total Dose (mL): 2 Contrast 2: Total Dose (mL): MEASUREMENTS (Male / Female) Normal Values 2D ECHO LV Diastolic Diameter PLAX 3.7 cm 4.2 - 5.9 / 3.9 - 5.3 cm LV Systolic Diameter PLAX 2.2 cm IVS Diastolic Thickness 1.2 cm 0.6 - 1.0 / 0.6 - 0.9 cm LVPW Diastolic Thickness 1.1 cm 0.6 - 1.0 / 0.6 - 0.9 cm LV Relative Wall Thickness 0.6 RV Internal Dim ED PLAX 2.4 cm LA Systolic Diameter LX 3.2 cm 3.0 - 4.0 / 2.7 - 3.8 cm DOPPLER TR Peak Velocity 274.0 cm/s TR Peak Gradient 30.0 mmHg FINDINGS Left Ventricle Left ventricular ejection fraction is estimated at 55-60 %. Normal left ventricular systolic function with no obvious regional wall motion abnormalities. Mildly increased left ventricular wall thickness. Left ventricular cavity size normal. Right Ventricle Right Atrium Left Atrium Mitral Valve Aortic Valve Tricuspid Valve Pulmonic Valve Pericardium Aorta CONCLUSIONS Limited echo. Definity ECHO contrast used for improved visualization of the endocardial borders (inadequate visualization of two or more contiguous segments). Normal left ventricular size and systolic function Previewed by: Dr. Eliana Rose MD (Electronically Signed) Final Date: 15 September 2024 11:40
--- NOTE | 2024-09-15 12:44 | P.CNOR ---
History of Present Illness - [facility] Consult date: 09/15/24 Requesting physician: Ashli Schmid Consult reason: other (neck pain, s/p cerivcal fushion) History of present illness: Patient is a 53-year-old female who presented to the hospital yesterday due to complaints of postoperative neck pain. Patient does have a past medical history significant for CAD status post CABG in December 2023, type 2 diabetes, cervical radiculopathy; rheumatoid arthritis; GERD; COPD. Patient did have C3-C7 ACDF surgery performed on 09/10/[address] Pettit. Patient was discharged home on 09/12/2024 and has came to the hospital due to difficulty with post-op pain control. Patient says she has had a difficult time swallowing any of her pills. She says she has been able to eat soft food and swallow soft food okay. Patient does mention a sore throat. Patient also mentions that blood pressure has been high since surgery. Cardiology has been consulted and is following the patient. Patient currently wearing a hard cervical collar and denies any fal ls/trauma since she was discharged from the hospital on 09/12/2024. Patient denies any other significant orthopedic complaints at this time. Past Medical History Past Medical History: Asthma, Coronary Artery Disease (CAD), COPD, Diabetes Mellitus, Hyperlipidemia, Hypertension, Myocardial Infarction ([place]), Musculoskeletal Disorder, Rheumatoid Arthritis (RA), Thyroid Disorder Additional Past Medical History / Comment(s): Back Pain, right shoulder pain, Hx Pituitary Tumor, BENIGN. Thyroid disorder. 3 heart attacks-most recent March 2022, 3 stents total, neuropathy; left-sided pleural effusion Last Myocardial Infarction Date:: 10/29/22 History of Any Multi-Drug Resistant Organisms: None Reported Past Surgical History: Section, Coronary Bypass/CABG, Heart Catheterization With Stent, Tubal Ligation Additional Past Surgical History / Comment(s): Pituitary Tumor Removed. colonoscopy, [facility] PROCEDURES stents x3 c section x4; three-vessel off- pump CABG January 04, 2024; left-sided thoracentesis with removal of 950 mL fluid on January 22, 2024 Past Anesthesia/Blood Transfusion Reactions: No Reported Reaction Date of Last Stent Placement:: March 2022 Past Psychological History: Anxiety, Depression Smoking Status: Former smoker Past Alcohol Use History: None Reported Past Drug Use History: Marijuana - Past Family History Mother History Unknown: Yes Family Medical History: Deep Vein Thrombosis (DVT) Additional Family Medical History / Comment(s): Mother is alive at age 67 with history of coronary artery disease and three-vessel CABG. Daughter(s) History Unknown: Yes Family Medical History: Deep Vein Thrombosis (DVT) Additional Family Medical History / Comment(s): Patient has a total of 9 children with no major medical problems. Father History Unknown: Yes Family Medical History: Cancer Additional Family Medical History / Comment(s): Father is alive with no history of coronary artery disease. History of Prostate Cancer Sister(s) History Unknown: Yes Additional Family Medical History / Comment(s): The patient has 4 sisters and 1 brother. One sister had a myocardial infraction at age 40. Medications and Allergies Home Medications Medication Instructions Recorded Confirmed Type metFORMIN HCL [Glucophage] 1,000 mg PO BID 01/19/22 09/14/24 History Metoprolol Succinate (ER) [Toprol 50 mg PO DAILY 03/01/24 09/14/24 History XL] Pantoprazole [Protonix] 40 mg PO DAILY 03/01/24 09/14/24 History Ferrous Sulfate [Iron (65 MG 325 mg PO BID 05/07/24 09/14/24 History Elemental)] Gabapentin [Neurontin] 300 mg PO BID 05/07/24 09/14/24 History Meenakshi Multivitamin Gummy 2 tab PO DAILY 05/07/24 09/14/24 History Isosorbide Mononitrate ER [Imdur] 30 mg PO DAILY 05/07/24 09/14/24 History Losartan [Cozaar] 25 mg PO HS 05/07/24 09/14/24 History amLODIPine [Norvasc] 2.5 mg PO DAILY 05/07/24 09/14/24 History hydroCHLOROthiazide 25 mg PO DAILY 05/07/24 09/14/24 History Aspirin 81 mg PO DAILY 09/05/24 09/14/24 History Atorvastatin [Lipitor] 80 mg PO HS 09/05/24 09/14/24 History Clopidogrel [Plavix] 75 mg PO DAILY 09/05/24 09/14/24 History Lubiprostone [Amitiza] 24 mcg PO TID 09/05/24 09/14/24 History tiZANidine [Zanaflex] 2 mg PO BID 09/05/24 09/14/24 History Dapagliflozin Propanediol [Farxiga] 10 mg PO DAILY #90 tab 09/12/24 09/14/24 Rx Ezetimibe [Zetia] 10 mg PO DAILY #90 tab 09/12/24 09/14/24 Rx HYDROcodone/APAP 10-325MG [[place] 1 tab PO Q4-6H PRN #40 tab 09/12/24 09/14/24 Rx 10-325] Hydrocortisone [Cortef] 5 mg PO HS #60 tab 09/12/24 09/14/24 Rx Hydrocortisone [Cortef] 10 mg PO DAILY #60 tab 09/12/24 09/14/24 Rx cefaDROXiL [Duricef] 500 mg PO Q12HR #10 cap 09/12/24 09/14/24 Rx tiZANidine [Zanaflex] 2 mg PO TID PRN #40 tab 09/12/24 09/14/24 Rx Nitroglycerin Sl Tabs [Nitrostat] 0.4 mg SUBLINGUAL Q5M PRN 09/14/24 09/14/24 History Sennosides-Docusate Sodium 2 tab PO DAILY 09/14/24 09/14/24 History [Senokot-S] Allergies Allergy/AdvReac Type Severity Reaction Status Date / Time peanut Allergy HIVES Verified 09/05/24 12:41 rice Allergy Rash/Hives Verified 09/05/24 12:41 seasonal Allergy Rash/Hives Uncoded 09/05/24 12:41 Physical Examination Inspection: Hard cervical collar in place with surgical dressing in place over anterior cervical spine. Dressing was taken down. Dressing is clean, dry, intact. Negative for any drainage from incision. Glue is present over incision and incision appears to be healing well overall. There is some very mild swelling diffusely throughout the neck. Sensation: Sensation is equal, symmetric, bilat intact throughout the upper extremities on exam. Palpation: There is some generalized tenderness to palpation along the anterior cervical spine near incision. Nontender to palpation on rest of exam. Range of motion: Patient does have an limited range of motion the bilateral shoulders secondary to referred stiffness and pain to the neck. Full range of motion throughout bilateral elbows and wrist in flexion so extension. Motor: 4/5 in all major motor groups in right upper extremity. 5/5 in all major motor groups in left upper extremity Neurovascular: Radial pulse intact, 2+ bilaterally. Cap refill under 3 seconds in digits of upper extremities. Special test: Negative Marty bilaterally. Negative Homans bilaterally. Results - Labs Labs: Abnormal Lab Results - Last 24 Hours (Table) 09/14/24 09/14/24 09/14/24 Range/Units 15:52 15:52 15:52 WBC 12.1 H (3.8-10.6) k/uL RBC (3.80-5.40) m/uL Hgb (11.4-16.0) gm/dL Hct (34.0-46.0) % Neutrophils # 9.0 H (1.3-7.7) k/uL APTT 18.4 L (22.0-30.0) sec Sodium 136 L (137-145) mmol/L Potassium 3.4 L (3.5-5.1) mmol/L Glucose 307 H (74-99) mg/dL POC Glucose (mg/dL) (70-110) mg/dL Alkaline Phosphatase 158 H (38-126) U/L Troponin I (0.000-0.034) ng/mL 09/14/24 09/14/24 09/15/24 Range/Units 19:07 22:17 00:45 WBC 11.6 H (3.8-10.6) k/uL RBC 3.76 L (3.80-5.40) m/uL Hgb 11.3 L (11.4-16.0) gm/dL Hct 33.8 L (34.0-46.0) % Neutrophils # 9.1 H (1.3-7.7) k/uL APTT (22.0-30.0) sec Sodium (137-145) mmol/L Potassium (3.5-5.1) mmol/L Glucose (74-99) mg/dL POC Glucose (mg/dL) (70-110) mg/dL Alkaline Phosphatase (38-126) U/L Troponin I 0.048 H* 0.139 H* (0.000-0.034) ng/mL 09/15/24 09/15/24 09/15/24 Range/Units 00:45 02:30 05:45 WBC 11.8 H (3.8-10.6) k/uL RBC (3.80-5.40) m/uL Hgb (11.4-16.0) gm/dL Hct (34.0-46.0) % Neutrophils # 8.9 H (1.3-7.7) k/uL APTT 21.6 L (22.0-30.0) sec Sodium (137-145) mmol/L Potassium (3.5-5.1) mmol/L Glucose (74-99) mg/dL POC Glucose (mg/dL) 216 H (70-110) mg/dL Alkaline Phosphatase (38-126) U/L Troponin I (0.000-0.034) ng/mL 09/15/24 09/15/24 09/15/24 Range/Units 05:45 07:15 07:43 WBC (3.8-10.6) k/uL RBC (3.80-5.40) m/uL Hgb (11.4-16.0) gm/dL Hct (34.0-46.0) % Neutrophils # (1.3-7.7) k/uL APTT (22.0-30.0) sec Sodium 136 L (137-145) mmol/L Potassium (3.5-5.1) mmol/L Glucose 257 H (74-99) mg/dL POC Glucose (mg/dL) 216 H (70-110) mg/dL Alkaline Phosphatase (38-126) U/L Troponin I 0.234 H* (0.000-0.034) ng/mL 09/15/24 09/15/24 Range/Units 10:46 11:03 WBC (3.8-10.6) k/uL RBC (3.80-5.40) m/uL Hgb (11.4-16.0) gm/dL Hct (34.0-46.0) % Neutrophils # (1.3-7.7) k/uL APTT (22.0-30.0) sec Sodium (137-145) mmol/L Potassium (3.5-5.1) mmol/L Glucose (74-99) mg/dL POC Glucose (mg/dL) 240 H (70-110) mg/dL Alkaline Phosphatase (38-126) U/L Troponin I 0.223 H* (0.000-0.034) ng/mL H & H 09/14/24 09/15/24 09/15/24 Range/Units 15:52 00:45 05:45 Hgb 12.9 11.3 L 12.4 (11.4-16.0) gm/dL Hct 39.3 33.8 L 37.5 (34.0-46.0) % Coagulation 09/14/24 09/15/24 Range/Units 15:52 00:45 INR 1.0 1.1 (<1.2) Result Diagrams: 09/15/24 05:45 09/15/24 05:45 Assessment and Plan Assessment: 1. Postoperative cervicalgia status post recent C3-C7 ACDF Plan: 1. Postoperative cervicalgia status post recent C3-C7 ACDF -patient stable at bedside this morning in the emergency department with hard c-collar in place. Dressing in place over anterior cervical spine. At this time we are not recommending any emergent/urgent orthopedic surgical intervention. We will adjust patient's pain medications. Patient may weight-bear as tolerated with walker and assistance as needed. Patient to have hard c-collar in place at all times. Patient to follow-up with Dr. Pettit in office next week. Medicine and cardiology following. Orthopedics will be available as needed to see patient during stay in hospital. 2. Appreciate medical and cardiology management 3. Pain management -Zanaflex; Tylenol; percocet 4. DVT prophylaxis -Plavix; aspirin 5. GI prophylaxis -senna 6. PT/OT -weightbearing as tolerated with walker. Hard c-collar on at all times 7. Encourage incentive spirometer use 8. Appreciate consult Time with Patient: Less than 30
--- NOTE | 2024-09-15 13:25 | P.PN ---
Subjective Progress Note Date: 09/15/24 53-year-old female with a PMH of CAD status post CABG in December 2023, type 2 diabetes, cervical radiculopathy status post C3-4 C4-5 C5-6 C6-7 arthrodesis with insertion of cages on 09/10, GERD, rheumatoid arthritis and COPD presents with complaints of chest, back, and neck pain. Patien had a cervical fusion done by Dr. Pettit on 09/10/2024 and was discharged on the with [place] for pain control, but states it has not been controlling her pain. States she has significant posterior and lateral neck pain which has slowly become worse since she was discharged from the hospital. Notes she has not been able to swallow and feels like her pain medication is getting stuck in her throat. Reports her blood pressure has been high as she cannot swallow her blood pressure medications. Also admits to some chest pain which she rates as a 5-6 out of 10 and characterizes it as sharp, dull, and achy. Reports the pain feels similar to after she had her CABG earlier this year. Reports it is generalized but mostly central in nature without radiation. States the chest pain occurs at rest and on exertion. Notes she has abdominal pain as well in addition to constipation, has not had a bowel movement since being admitted to the hospital last time. Also admits to nausea without vomiting. Denies fevers, recent trauma, numbness, tingling, or weakness in her extremities, shortness of breath. At time of interview, patient continues to have neck pain as well as chest pain. Labs: WBC 12.1, hemoglobin 12.9, neutrophils 9.0, APTT 18.4, sodium 136, potassium 3.4, glucose 307, alkaline phosphatase 158, troponin less than 0.012-->0.04. Imaging: - EKG done in the ER showed heart rate of 92 bpm, sinus rhythm, possible left atrial enlargement, left ventricular hypertrophy, and QTc of 399. - ER CXR: No acute cardiopulmonary process. 09/15/2024 patient seen and examined at bedside. Patient reported no chest pain at time of interview. Patient still experiencing neck pain. WBC 11.8 hemoglobin 12.4 platelet count 267,000 PT 11.6 INR 1.1 PTT 25.3 sodium 136 potassium 4 BUN 11 creatinine 0.53 glucose 257 troponin 2.23. left ventricular ejection fraction estimated at 55 to 60% with normal wall motion with mildly inc reased wall thickness. Review of systems: Pertinent positives and negatives as discussed in HPI, a complete review of systems was performed and all other systems are negative. Pertinent imaging and labs reviewed. Physical examination: Vital signs reviewed General: non toxic, no distress Derm: no unusual rashes/lesions, warm, transverse scar at middle of the chest Head: atraumatic, normocephalic, symmetric Eyes: EOMI, anicteric sclera, pupils equal round reactive to light ENT: Nose and ears atraumatic Neck: No cervical lymphadenopathy, trachea midline, supple, C-collar in place, lateral and posterior neck tenderness appreciated bilaterally Mouth: no lip lesion, mucus membranes moist Cardiovascular: S1S2 reg, no murmur Lungs: CTA bilateral, no rhonchi, no rales, no accessory muscle use Abdominal: soft, nontender to palpation, no guarding Ext: muscle strength 5 out of 5 in all 4 extremities grossly, no gross muscle atrophy, no contractures, positive dorsalis pedis pulse bilateral, no extremity edema Neuro: CN II-XI grossly intact, no gross focal neuro deficits Psych: Alert and oriented x3, appropriate affect and mood Assessment/Plan: 53-year-old female with a PMH of CAD status post CABG in December 2023, type 2 diabetes, cervical radiculopathy status post C3-4 C4-5 C5-6 C6-7 arthrodesis with insertion of cages, GERD, rheumatoid arthritis and COPD presents with complaints of chest, back, and neck pain. Patient is being worked up for neck pain likely secondary to recent cervical fusion and NSTEMI. #Neck pain status post recent cervical fusion: -Change pain med ication to Dilaudid 1 mg IVP every 4 hours as needed -Orthopedics consulted. Will adjust pain medication. Patient will have to have hard c-collar in place at all times -Continue recent discharge medications, status post cervical fusion, including Keflex #Acute NSTEMI #History of CAD status post CABG -Troponin 0.012-->0.048-->0.139 -> 0.223, continue to trend troponin -Repeat EKG showed sinus rhythm with short MN interval, possible left atrial enlargement, and left ventricular hypertrophy -Echo from 05/14 showed EF 60%, mild septal wall thickness, mild increased posterior wall thickness, no obvious regional wall abnormalities. -Echo 09/15 left ventricular ejection fraction estimated at 55 to 60% with normal wall motion with mildly increased wall thickness. -Cardiology consulted. For reevaluation tomorrow to determine if cardiac catheterization is necessary. -Continue Heparin drip, monitor APTT, monitor for bleeding -Cardiac monitoring #Leukocytosis likely reactive, secondary to pain #SIRS criteria with no obvious source of infection, resolved -WBC 12.1 -> 11.8 respirations 16. Patient is afebrile -Chest x-ray shows no acute cardiopulmonary process -IV fluids discontinued -Continue to monitor #Hypokalemia, resolved -Potassium 3.4 -> 4 -Given one-time dose potassium 40 mEq PO Chronic Conditions: #Type 2 diabetes: -Hold home medications -Sliding scale insulin, monitor for hypoglycemia -Accu-Cheks #Rheumatoid arthritis: -Continue home medication #COPD: -Not in acute exacerbation, not on any home meds -Continue to monitor F: Oral intake E: None for now N: Heart healthy diet. N.p.o. at midnight A: Needs assistance with ambulation. On c-collar DVT prophylaxis: Heparin drip GI prophylaxis: Protonix 40 mg p.o. daily Terese Alan MD PGY-1/Criminal Justice Social Worker Dictation was produced using [employer] dictation software. please excuse any grammatical, word or spelling errors. I have seen and evaluated the patient today. Discussed with the resident and agree with the residents finding and plan as documented in the resident's note. Changes highlighted in blue font. Objective - Vital Signs Vital signs: Vital Signs Temp 98.7 F 09/14/24 21:08 Pulse 88 09/15/24 05:02 Resp 19 09/15/24 05:02 BP 103/50 09/15/24 00:09 Pulse Ox 95 09/15/24 05:02 FiO2 Intake & Output 09/14/24 09/15/24 09/15/24 18:59 06:59 18:59 Weight 86.183 kg - Labs CBC & Chem 7: 09/15/24 05:45 09/15/24 05:45 Labs: Abnormal Lab Results - Last 24 Hours (Table) 09/14/24 09/14/24 09/14/24 Range/Units 15:52 15:52 15:52 WBC 12.1 H (3.8-10.6) k/uL RBC (3.80-5.40) m/uL Hgb (11.4-16.0) gm/dL Hct (34.0-46.0) % Neutrophils # 9.0 H (1.3-7.7) k/uL APTT 18.4 L (22.0-30.0) sec Sodium 136 L (137-145) mmol/L Potassium 3.4 L (3.5-5.1) mmol/L Glucose 307 H (74-99) mg/dL POC Glucose (mg/dL) (70-110) mg/dL Alkaline Phosphatase 158 H (38-126) U/L Troponin I (0.000-0.034) ng/mL 09/14/24 09/14/24 09/15/24 Range/Units 19:07 22:17 00:45 WBC 11.6 H (3.8-10.6) k/uL RBC 3.76 L (3.80-5.40) m/uL Hgb 11.3 L (11.4-16.0) gm/dL Hct 33.8 L (34.0-46.0) % Neutrophils # 9.1 H (1.3-7.7) k/uL APTT (22.0-30.0) sec Sodium (137-145) mmol/L Potassium (3.5-5.1) mmol/L Glucose (74-99) mg/dL POC Glucose (mg/dL) (70-110) mg/dL Alkaline Phosphatase (38-126) U/L Troponin I 0.048 H* 0.139 H* (0.000-0.034) ng/mL 09/15/24 09/15/24 09/15/24 Range/Units 00:45 02:30 05:45 WBC 11.8 H (3.8-10.6) k/uL RBC (3.80-5.40) m/uL Hgb (11.4-16.0) gm/dL Hct (34.0-46.0) % Neutrophils # 8.9 H (1.3-7.7) k/uL APTT 21.6 L (22.0-30.0) sec Sodium (137-145) mmol/L Potassium (3.5-5.1) mmol/L Glucose (74-99) mg/dL POC Glucose (mg/dL) 216 H (70-110) mg/dL Alkaline Phosphatase (38-126) U/L Troponin I (0.000-0.034) ng/mL 09/15/24 Range/Units 05:45 WBC (3.8-10.6) k/uL RBC (3.80-5.40) m/uL Hgb (11.4-16.0) gm/dL Hct (34.0-46.0) % Neutrophils # (1.3-7.7) k/uL APTT (22.0-30.0) sec Sodium 136 L (137-145) mmol/L Potassium (3.5-5.1) mmol/L Glucose 257 H (74-99) mg/dL POC Glucose (mg/dL) (70-110) mg/dL Alkaline Phosphatase (38-126) U/L Troponin I (0.000-0.034) ng/mL
[2024-09-15] MEDS: oxyCODONE-APAP 5-325MG 1 EACH TAB PO PRN (14:25)
[2024-09-15 16:34] LABS: Glucose,Whole Blood 377 mg/dL (70-110)
[2024-09-15] MEDS: ESTRADIOL 0.1 MG/GM VAGINAL CREAM 42.5 GM TUBE VAGINAL PRN (16:55)
[2024-09-15] MEDS: bisacodyL 10 MG SUPP RECTAL STA (18:08)
[2024-09-15 21:23] LABS: Glucose,Whole Blood 291 mg/dL (70-110)
[2024-09-16 03:49] VITALS: TEMP 98
[2024-09-16 06:27] LABS: Glucose,Whole Blood 222 mg/dL (70-110)
[2024-09-16 07:10] LABS: Basophils % (A) 0 %; Eosinophils # (A) 0.1 k/uL (0-0.7); Eosinophils % (A) 1 %; HCT 38.1 % (34.0-46.0); HGB 12.4 gm/dL (11.4-16.0); Lymphocytes # (A) 2.7 k/uL (1.0-4.8); Lymphocytes % (A) 22 %; MCH 29.6 pg (25.0-35.0); MCHC 32.4 g/dL (31.0-37.0); MCV 91.1 fL (80.0-100.0); Mean Platelet Volume 7.4; Monocytes # (A) 0.5 k/uL (0-1.0); Monocytes % (A) 4 %; Neutrophils # (A) 8.6 k/uL (1.3-7.7); Neutrophils % (A) 71 %; Platelet Count 242 k/uL (150-450); RBC 4.18 m/uL (3.80-5.40); RDW 12.8 % (11.5-15.5); WBC 12.1 k/uL (3.8-10.6)
--- NOTE | 2024-09-16 07:29 | P.PN ---
Progress Note - Text Progress Note Date: 09/16/24 [facility] Progress Note DOS: 09/10/2024 POD: 6 SUBJECTIVE: Ms. Balbuena presents to the hospital once again with increased chest pains on the right-hand side. Patient is 6 days status post C3-7 ACDF. She has been doing very well with this. She was discharged home and a 2 after surgery without any issues. She returned due to increased chest pain with a history of cardiac events at was an issue for her and so she came in and was found to have elevated troponins. She was admitted for this. We are on consult for her neck. Her neck is looking very good she does have some swelling about the incisional area. She has no difficulty with swallowing or talking she has no hoarse voice she has no breathing issues at this time. She has been wearing her hard cervical collar fairly religiously. She complains of some pain at the base of her neck but this is normal. She denies any injury or other issues related to her neck at this time. OBJECTIVE: Vital signs stable General: AOX3, NAD Incision CDI no erythema ecchymosis or edema Motor Exam: RUE: 4+ /5 SA, EF, EE, WF, WE, Intrinsic, Strip Deburrer LUE: 4+ /5 SA, EF, EE, WF, WE, Intrinsic, Strip Deburrer * Showing good improvements in her upper extremity strength overall * No paresthesias or increased symptoms prior to surgery RLE: 5/5 HF, KE, KF, DF, PF, EHL, FHL LLE: 5/5 HF, KE, KF, DF, PF, EHL, FH Reflexes: 2/4 in UE and LE b/l * Much better reflexes less hyperreflexia SILT C5-T1 and L2-S1 Dermatomal deficit: Some decrease sensation in the C5-6 region still +distal pulses palpable Negative hoffmans b/l * Good improvement Marty's less brisk Negative babinski b/l No clonus ASSESSMENT: 53-year-old female postop day 6 from C3-C7 ACDF Readmitted for chest pain and elevated troponins PLAN: 1. Patient seen and examined, I reviewed the note, discussed the case with the PA first hand and agree with the assessment and plan of VICTOR HUGO [place]. Please see my notes below for any additional recommendations. 2. Redress incision anteriorly 3. PT/OT, OK for up and about. Hard c-collar when up and about. No BLTPP s. No lifting >10lbs 4. TEDs, SCDs, Early ambulation 5. No urgent or emergent surgical intervention warranted at this time. Will follow the patient during her clinical course. At this time her neck is very stable and there are no issues. Will obtain soft cervical collar for her sleeping comfort. Otherwise orthopedics will sign off at this time. Please reconsult with any further issues
[2024-09-16 08:00] LABS: African American GFR (CKD) >90 (>60 ml/min/1.73 sqM); Anion Gap 10 mmol/L; Blood Urea Nitrogen 15 mg/dL (7-17); Calcium 9.4 mg/dL (8.4-10.2); Carbon Dioxide 26 mmol/L (22-30); Chloride 100 mmol/L (98-107); Glucose 207 mg/dL (74-99); Non-African American GFR(CKD) >90 (>60 ml/min/1.73 sqM); Potassium 3.6 mmol/L (3.5-5.1); Sodium 136 mmol/L (137-145)
[2024-09-16] MEDS: INSULIN ASPART (NovoLOG) 100 UNIT/ML VIAL SQ SCH (08:04)
[2024-09-16 08:33] VITALS: RESP 16
[2024-09-16] MEDS ORDERED: ESTRADIOL 0.1 MG/GM VAGINAL CREAM 42.5 GM TUBE VAGINAL PRN (10:05)
[2024-09-16 11:33] LABS: Glucose,Whole Blood 206 mg/dL (70-110)
[2024-09-16 11:55] VITALS: BP 106/57; PULSE 63
--- NOTE | 2024-09-16 11:58 | P.PN ---
Subjective Progress Note Date: 09/16/24 53-year-old female with a PMH of CAD status post CABG in December 2023, type 2 diabetes, cervical radiculopathy status post C3-4 C4-5 C5-6 C6-7 arthrodesis with insertion of cages on 09/10, GERD, rheumatoid arthritis and COPD presents with complaints of chest, back, and neck pain. Patien had a cervical fusion done by Dr. Pettit on 09/10/2024 and was discharged on the with [facility] for pain control, but states it has not been controlling her pain. States she has significant posterior and lateral neck pain which has slowly become worse since she was discharged from the hospital. Notes she has not been able to swallow and feels like her pain medication is getting stuck in her throat. Reports her blood pressure has been high as she cannot swallow her blood pressure medications. Also admits to some chest pain which she rates as a 5-6 out of 10 and characterizes it as sharp, dull, and achy. Reports the pain feels similar to after she had her CABG earlier this year. Reports it is generalized but mostly central in nature without radiation. States the chest pain occurs at rest and on exertion. Notes she has abdominal pain as well in addition to constipation, has not had a bowel movement since being admitted to the hospital last time. Also admits to nausea without vomiting. Denies fevers, recent trauma, numbness, tingling, or weakness in her extremities, shortness of breath. At time of interview, patient continues to have neck pain as well as chest pain. Labs: WBC 12.1, hemoglobin 12.9, neutrophils 9.0, APTT 18.4, sodium 136, potassium 3.4, glucose 307, alkaline phosphatase 158, troponin less than 0.012-->0.04. Imaging: - EKG done in the ER showed heart rate of 92 bpm, sinus rhythm, possible left atrial enlargement, left ventricular hypertrophy, and QTc of 399. - ER CXR: No acute cardiopulmonary process. 09/15/2024 patient seen and examined at bedside. Patient reported no chest pain at time of interview. Patient still experiencing neck pain. WBC 11.8 hemoglobin 12.4 platelet count 267,000 PT 11.6 INR 1.1 PTT 25.3 sodium 136 potassium 4 BUN 11 creatinine 0.53 glucose 257 troponin 2.23. left ventricular ejection fraction estimated at 55 to 60% with normal wall motion with mildly inc reased wall thickness. 09/16/2024 patient seen and examined at bedside. Patient reported slight chest tenderness on the right side of the chest that is nonradiating and sharp. She denies nausea vomiting, diaphoresis, weakness, shortness of breath, or leg tenderness. She reported discomfort with dryness and itching of vulvar area. She also reported posterior neck pain that is from her surgery. No acute events overnight. WBC 12.1 hemoglobin 12.4 platelet count 242,000 PT 11 INR 1 PTT 45.5 sodium 136 potassium 3.6 BUN 15 creatinine 0.6 glucose 207 Review of systems: Pertinent positives and negatives as discussed in HPI, a complete review of systems was performed and all other systems are negative. Pertinent imaging and labs reviewed. Physical examination: Vital signs reviewed General: non toxic, no distress Derm: no unusual rashes/lesions, warm, transverse scar at middle of the chest Head: atraumatic, normocephalic, symmetric Eyes: EOMI, anicteric sclera, pupils equal round reactive to light ENT: Nose and ears atraumatic Neck: No cervical lymphadenopathy, trachea midline, supple, c-collar removed, lateral and posterior neck tenderness appreciated bilaterally, anterior right incision site that is clean and dry with no discharge Mouth: no lip lesion, mucus membranes moist Cardiovascular: S1S2 reg, no murmur Lungs: CTA bilateral, no rhonchi, no rales, no accessory muscle use Abdominal: soft, nontender to palpation, no guarding Ext: muscle strength 5 out of 5 in all 4 extremities grossly, no gross muscle atrophy, no contractures, positive dorsalis pedis pulse bilateral, no extremity edema Neuro: CN II-XI grossly intact, no gross focal neuro deficits Psych: Alert and oriented x3, appropriate affect and mood Assessment/Plan: 53-year-old female with a PMH of CAD status post CABG in December 2023, type 2 diabetes, cervical radiculopathy status post C3-4 C4-5 C5-6 C6-7 arthrodesis with insertion of cages, GERD, rheumatoid arthritis and COPD presents with complaints of chest, back, and neck pain. Patient is being worked up for neck pain likely secondary to recent cervical fusion and NSTEMI. #Neck pain status post recent cervical fusion: -Change pain med ication to Dilaudid 1 mg IVP every 4 hours as needed -Orthopedics consulted. Will adjust pain medication. Hard c-collar removed at this time. Will be given soft c-collar for sleeping comfort -Continue recent discharge medications, status post cervical fusion, including Keflex #Elevated troponin: Rule out ACS #Acute NSTEMI -Troponin 0.012-->0.048-->0.139 -> 0.223 -> 0.234 -Repeat EKG showed sinus rhythm with short VA interval, possible left atrial enlargement, and left ventricular hypertrophy -Echo from 05/14 showed EF 60%, mild septal wall thickness, mild increased posterior wall thickness, no obvious regional wall abnormalities. -Echo 09/15 left ventricular ejection fraction estimated at 55 to 60% with normal wall motion with mildly increased wall thickness. -Cardiology consulted. For reevaluation today to determine if cardiac catheterization is necessary. -Continue Heparin drip , monitor APTT, monitor for bleeding -Cardiac monitoring #Leukocytosis likely reactive, secondary to pain #SIRS criteria with no obvious source of infection, resolved -WBC 12.1 -> 11.8 -> 12.1 respirations 16. Patient is afebrile -Chest x-ray shows no acute cardiopulmonary process -IV fluids discontinued -Continue to monitor # Oral thrush Nystatin oral swish 4 times daily #Hypokalemia, resolved -Potassium 3.4 -> 4 -> 3.6 -Given one-time dose potassium 40 mEq PO Chronic Conditions: #Type 2 diabetes: -Hold home medications -Sliding scale insulin, monitor for hypoglycemia -Levemir 14 units daily SQ -NovoLog 2 units SQ ACHS -Accu-Cheks ACHS #CAD status post CABG -Continue medication #Rheumatoid arthritis: -Continue home medication #COPD: -Not in acute exacerbation, not on any home meds -Continue to monitor F: Oral intake E: None for now N: Heart healthy diet NPO for now A: Needs assistance with ambulation. On c-collar DVT prophylaxis: Heparin drip GI prophylaxis: Protonix 40 mg p.o. daily Terese Alan MD PGY-1/An/Syq 13 Nav/C2 Operator Dictation was produced using [employer] dictation software. please excuse any grammatical, word or spelling errors. I have seen and evaluated the patient today. Discussed with the resident and agree with the residents finding and plan as documented in the resident's note. Changes highlighted in blue font. Objective - Vital Signs Vital signs: Vital Signs Temp 98 F 09/16/24 03:48 Pulse 75 09/16/24 03:48 Resp 15 09/16/24 03:48 BP 139/71 09/16/24 03:48 Pulse Ox 99 09/16/24 03:48 FiO2 Intake & Output 09/15/24 09/16/24 09/16/24 18:59 06:59 18:59 Intake Total 196.915 20 Balance 196.915 20 Weight 86.183 kg 79.1 kg Intake: IV 20 Invasive Line 1 20 Intake, IV Titration 196.915 Amount Heparin Sod,Pork in 0.45% 196.915 NaCl 25,000 unit In 0.45 % NaCl 1 250ml.bag @ 11.6 UNITS/KG/HR 9.997 mls/hr IV .Q24H [facility] Rx#: [id number] Other: Voiding Method Toilet Toilet Bedside Commode Bedside Commode # Voids 1 1 # Bowel Movements 1 - Labs CBC & Chem 7: 09/16/24 06:43 09/16/24 06:43 Labs: Abnormal Lab Results - Last 24 Hours (Table) 09/15/24 09/15/24 09/15/24 Range/Units 07:15 07:43 10:46 WBC (3.8-10.6) k/uL Neutrophils # (1.3-7.7) k/uL APTT (22.0-30.0) sec POC Glucose (mg/dL) 216 H (70-110) mg/dL Troponin I 0.234 H* 0.223 H* (0.000-0.034) ng/mL 09/15/24 09/15/24 09/15/24 Range/Units 11:03 15:53 16:33 WBC (3.8-10.6) k/uL Neutrophils # (1.3-7.7) k/uL APTT 48.3 H (22.0-30.0) sec POC Glucose (mg/dL) 240 H 377 H (70-110) mg/dL Troponin I (0.000-0.034) ng/mL 09/15/24 09/16/24 09/16/24 Range/Units 21:21 06:26 06:43 WBC 12.1 H (3.8-10.6) k/uL Neutrophils # 8.6 H (1.3-7.7) k/uL APTT (22.0-30.0) sec POC Glucose (mg/dL) 291 H 222 H (70-110) mg/dL Troponin I (0.000-0.034) ng/mL
--- NOTE | 2024-09-16 12:48 | P.PN ---
Subjective HISTORY OF PRESENT ILLNESS: This is a 53-year-old female with a past medical history significant for coronary artery disease with previous CABG in 12/2023, diabetes, GERD, rheumatoid arthritis, COPD, and cervical radiculopathy. Patient follows in the office with Dr. Ojeda. We have been asked to see the patient in consultation for elevated troponins. Patient examined at the bedside in the emergency room. Patient presented to the hospital to chief complaint of chest pain and neck pain. Patient recently underwent cervical fusion on September 10, 2024. At the time of examination she continues to report neck pain. She denies any chest pain at the time of exam. She was found to have elevated troponins and was started on IV heparin. DIAGNOSTICS: - EKG reveals sinus mechanism with no signs of acute ischemia - Chest xray negative for acute process - Laboratory data: WBC 11.8. Hemoglobin 12.4. Platelet count 267. Sodium 136. Potassium 4.0. BUN 11. Creatinine 0.53. Troponin 0.012. 0.048. 0.139. - Current home cardiac medications include aspirin 81 mg daily, Lipitor 80 mg at night, Plavix 75 mg daily, Farxiga 10 mg daily, Zetia 10 mg daily, Imdur 30 mg daily, losartan 25 mg at night, metoprolol succinate 50 mg daily, amlodipine 2.5 mg daily, hydrochlorothiazide 25 mg daily - Most recent echocardiogram obtained in 04/2024 revealed ejection fraction 60%, trace MR, mild TR - Cardiac catheterization history: November 2023 revealing severe disease of ostial and proximal left main, severe disease of ostial LAD, and severe disease of proximal RCA 09/16/2024 Patient examined this morning the bedside. Patient currently denies shortness of breath. Denies chest pain or pressure. She remains on IV heparin. Limited echo completed revealing ejection fraction 55 to 60% with no obvious regional wall motion abnormalities. Vital signs are stable. Blood pressure this morning 163/59. She is on room air with oxygen saturations greater than 92%. PHYSICAL EXAM: VITAL SIGNS: Reviewed. GENERAL: Well-developed in no acute distress. HEENT: Head is normocephalic. Pupils are equal, round. Sclerae anicteric. Mucous membranes of the mouth are moist. Neck supple. No JVD or thyromegaly. Cervical collar noted. LUNGS: Respirations even and unlabored. Lungs essentially clear to auscultation bilaterally. HEART: Regular rate and rhythm. S1 and S2 heard. ABDOMEN: Soft. Nondistended. Nontender. EXTREMITIES: Normal range of motion. No clubbing or cyanosis. Peripheral pulses intact. No lower extremity edema NEUROLOGIC: Awake and alert. Oriented x 3. ASSESSMENT: Non-STEMI, suspected type II CT, echo revealing preserved LV systolic function with no segmental wall motion abnormalities Neck pain, status post cervical fusion on 09/10/2024 Coronary artery disease with previous CABG, 12/2023 Hypertension Hyperlipidemia Diabetes GERD History of rheumatoid arthritis COPD PLAN: Continue IV heparin. Begin subcu heparin Continue additional cardiac medications Per Dr. Ojeda, no cardiac catheterization indicated at this time Patient is stable for discharge home today from a cardiac standpoint Patient to follow-up postdischarge with Dr. Ojeda Nurse practitioner note has been reviewed by physician. Signing provider agrees with the documented findings, assessment, and plan of care documented by MECHANICAL PRODUCT ENGINEER as a scribe. Objective - Vital Signs Vital signs: Vital Signs Temp 98 F 09/16/24 03:48 Pulse 93 09/16/24 08:00 Resp 16 09/16/24 08:00 BP 163/59 09/16/24 08:00 Pulse Ox 100 09/16/24 08:00 FiO2 Intake & Output 09/15/24 09/16/24 09/16/24 18:59 06:59 18:59 Intake Total 196.915 20 10 Balance 196.915 20 10 Weight 86.183 kg 79.1 kg Intake: IV 20 10 Invasive Line 1 20 10 Intake, IV Titration 196.915 Amount Heparin Sod,Pork in 0.45% 196.915 NaCl 25,000 unit In 0.45 % NaCl 1 250ml.bag @ 11.6 UNITS/KG/HR 9.997 mls/hr IV .Q24H [facility] Rx#: [id number] Other: Voiding Method Toilet Toilet Toilet Bedside Commode Bedside Commode Bedside Commode # Voids 1 1 # Bowel Movements 1 - Labs CBC & Chem 7: 09/16/24 06:43 09/16/24 06:43 Labs: Abnormal Lab Results - Last 24 Hours (Table) 09/15/24 09/15/24 09/15/24 Range/Units 10:46 15:53 16:33 WBC (3.8-10.6) k/uL Neutrophils # (1.3-7.7) k/uL APTT 48.3 H (22.0-30.0) sec Sodium (137-145) mmol/L Glucose (74-99) mg/dL POC Glucose (mg/dL) 377 H (70-110) mg/dL Troponin I 0.223 H* (0.000-0.034) ng/mL 09/15/24 09/16/24 09/16/24 Range/Units 21:21 06:26 06:43 WBC 12.1 H (3.8-10.6) k/uL Neutrophils # 8.6 H (1.3-7.7) k/uL APTT (22.0-30.0) sec Sodium (137-145) mmol/L Glucose (74-99) mg/dL POC Glucose (mg/dL) 291 H 222 H (70-110) mg/dL Troponin I (0.000-0.034) ng/mL 09/16/24 09/16/24 Range/Units 06:43 06:43 WBC (3.8-10.6) k/uL Neutrophils # (1.3-7.7) k/uL APTT 45.5 H (22.0-30.0) sec Sodium 136 L (137-145) mmol/L Glucose 207 H (74-99) mg/dL POC Glucose (mg/dL) (70-110) mg/dL Troponin I (0.000-0.034) ng/mL
--- NOTE | 2024-09-16 15:16 | P.DS ---
Providers Date of admission: 09/15/24 16:14 Expected date of discharge: 09/16/24 Attending physician: Adriel Cardoso Consults: 09/14/24 17:12 Consult Physician Urgent Consulting Provider: Timur Pettit Consult Reason/Comments: neck pain, s/p cerivcal fushion Do you want consulting provider notified?: Yes 09/15/24 00:18 Consult Physician Urgent Consulting Provider: Walker Osborn Consult Reason/Comments: nstemi Do you want consulting provider notified?: Yes Primary care physician: [facility] Hospital Course: Final Diagnosis: #Neck pain status post recent cervical fusion, improved #Acute NSTEMI, resolved #Leukocytosis likely reactive, secondary to pain, resolved #SIRS criteria with no obvious source of infection, resolved #Oral thrush, stable #Hypokalemia, resolved #Non-insulin dependent Type 2 diabetes, controlled #CAD status post CABG #Rheumatoid arthritis #COPD Hospital Course: 53-year-old female with a PMH of CAD status post CABG in December 2023, type 2 diabetes, cervical radiculopathy status post C3-4 C4-5 C5-6 C6-7 arthrodesis with insertion of cages on 09/10, GERD, rheumatoid arthritis and COPD presents with complaints of chest, back, and neck pain. Joey had a cervical fusion done by Dr. Pettit on 09/10/2024 and was discharged on the with [place] for pain control, but states it has not been controlling her pain. States she has significant posterior and lateral neck pain which has slowly become worse since she was discharged from the hospital. Notes she has not been able to swallow and feels like her pain medication is getting stuck in her throat. Reports her blood pressure has been high as she cannot swallow her blood pressure medications. Also admits to some chest pain which she rates as a 5-6 out of 10 and characterizes it as sharp, dull, and achy. Reports the pain feels similar to after she had her CABG earlier this year. Reports it is generalized but mostly central in nature without radiation. States the chest pain occurs at rest and on exertion. Notes she has abdominal pain as well in addition to constipation, has not had a bowel movement since being admitted to the hospital last time. Also admits to nausea without vomiting. Denies fevers, recent trauma, numbness, tingling, or weakness in her extremities, shortness of breath. At time of interview, patient continues to have neck pain as well as chest pain. Labs during admission, WBC 12.1, hemoglobin 12.9, neutrophils 9.0, APTT 18.4, sodium 136, potassium 3.4, glucose 307, alkaline phosphatase 158, troponin less than 0.012-->0.04. EKG done in the ER showed heart rate of 92 bpm, sinus rhythm, possible left atrial enlargement, left ventricular hypertrophy, and QTc of 399. CXR showed no acute cardiopulmonary process. Patient was evaluated for elevated troponins to rule out ACS and neck pain status post recent cervical fusion procedure. Cardiology consulted and patient was placed on heparin drip and cardiac monitoring. Troponins trended and peaked at 0.234. Likely type II NSTEMI. Orthopedic surgery consulted and pain medication was optimized with addition of Zanaflex and Tylenol with Percocet and Keflex continued. Echocardiogram was unremarkable and showed ejection fraction of 55 to 60% with normal wall motion and mildly increased wall thickness. Patient's chest pain did not recur during hospital stay. Patient's neck pain improved throughout hospital stay. Patient developed oral thrush during hospital stay and was given nystatin oral suspension. Patient also experienced vulvar dryness and was provided estradiol cream applied daily. Patient was cleared for discharge today by cardiology and orthopedic surgery. Patient is sent home with nystatin oral suspension and estradiol cream as needed. Patient to continue home pain medication regimen. Patient also discharged prior with oral hydrocortisone and requires further workup and management for adrenal insufficiency with PCP on outpatient basis. She is advised to follow-up with orthopedic surgeon for postop management and was provided soft c-collar. Patient advised to follow-up with applications packager for CAD and medication optimization. Physical examination: Vital signs reviewed General: non toxic, no distress, appears at stated age, in soft C-collar Derm: no unusual rashes/lesions, warm, transverse scar at middle of the chest Head: atraumatic, normocephalic, symmetric Eyes: EOMI, anicteric sclera, pupils equal round reactive to light ENT: Nose and ears atraumatic Neck: No cervical lymphadenopathy, trachea midline, supple, lateral and posterior neck tenderness appreciated bilaterally, anterior right incision site that is clean and dry with no discharge Mouth: no lip lesion, mucus membranes moist Cardiovascular: S1S2 reg, no murmur, Lungs: CTA bilateral, no rhonchi, no rales, no accessory muscle use Abdominal: soft, nondistended, nontender to palpation, no guarding Ext: muscle strength 5 out of 5 in all 4 extremities grossly, no gross muscle atrophy, no contractures, positive dorsalis pedis pulse bilateral, no extremity edema Neuro: CN II-XI grossly intact, no gross focal neuro deficits Psych: Alert, oriented, appropriate affect and mood A total of 36 minutes of time were spent preparing this complex discharge summary. Patient was discharged on 09/16/2024 at 1311. I have seen and evaluated the patient today. Discussed with the resident and agree with the residents finding and plan as documented in the resident's note. Changes highlighted in blue font. Patient Condition at Discharge: Stable Plan - Discharge Summary Discharge Rx Participant: No New Discharge Prescriptions: New Estradiol Cream [Estrace Cream 0.01%] 1 applic VAGINAL DAILY PRN #1 each PRN Reason: vaginal dryness or itching Nystatin 100,000 Unit/ml Susp [Mycostatin Oral Susp] 500,000 unit PO QID 7 Days #140 ml Continue Pantoprazole [Protonix] 40 mg PO DAILY [place] Multivitamin Gummy 2 tab PO DAILY amLODIPine [Norvasc] 2.5 mg PO DAILY Ferrous Sulfate [Iron (65 MG Elemental)] 325 mg PO BID tiZANidine [Zanaflex] 2 mg PO BID Lubiprostone [Amitiza] 24 mcg PO TID cefaDROXiL [Duricef] 500 mg PO Q12HR #10 cap Hydrocortisone [Cortef] 10 mg PO DAILY #60 tab Dapagliflozin Propanediol [Farxiga] 10 mg PO DAILY #90 tab metFORMIN HCL [Glucophage] 1,000 mg PO BID Metoprolol Succinate (ER) [Toprol XL] 50 mg PO DAILY hydroCHLOROthiazide 25 mg PO DAILY Isosorbide Mononitrate ER [Imdur] 30 mg PO DAILY Losartan [Cozaar] 25 mg PO HS Gabapentin [Neurontin] 300 mg PO BID Aspirin 81 mg PO DAILY Clopidogrel [Plavix] 75 mg PO DAILY Atorvastatin [Lipitor] 80 mg PO HS HYDROcodone/APAP 10-325MG [[place] 10-325] 1 tab PO Q4-6H PRN #40 tab PRN Reason: Pain tiZANidine [Zanaflex] 2 mg PO TID PRN #40 tab PRN Reason: Muscle Spasm Hydrocortisone [Cortef] 5 mg PO HS #60 tab Ezetimibe [Zetia] 10 mg PO DAILY #90 tab Nitroglycerin Sl Tabs [Nitrostat] 0.4 mg SUBLINGUAL Q5M PRN PRN Reason: Chest Pain Sennosides-Docusate Sodium [Senokot-S] 2 tab PO DAILY Discharge Medication List metFORMIN HCL [Glucophage] 1,000 mg PO BID 01/19/22 [History] Metoprolol Succinate (ER) [Toprol XL] 50 mg PO DAILY 03/01/24 [History] Pantoprazole [Protonix] 40 mg PO DAILY 03/01/24 [History] Ferrous Sulfate [Iron (65 MG Elemental)] 325 mg PO BID 05/07/24 [History] Gabapentin [Neurontin] 300 mg PO BID 05/07/24 [History] [place]en[place] Multivitamin Gummy 2 tab PO DAILY 05/07/24 [History] Isosorbide Mononitrate ER [Imdur] 30 mg PO DAILY 05/07/24 [History] Losartan [Cozaar] 25 mg PO HS 05/07/24 [History] amLODIPine [Norvasc] 2.5 mg PO DAILY 05/07/24 [History] hydroCHLOROthiazide 25 mg PO DAILY 05/07/24 [History] Aspirin 81 mg PO DAILY 09/05/24 [History] Atorvastatin [Lipitor] 80 mg PO HS 09/05/24 [History] Clopidogrel [Plavix] 75 mg PO DAILY 09/05/24 [History] Lubiprostone [Amitiza] 24 mcg PO TID 09/05/24 [History] tiZANidine [Zanaflex] 2 mg PO BID 09/05/24 [History] Dapagliflozin Propanediol [Farxiga] 10 mg PO DAILY #90 tab 09/12/24 [Rx] Ezetimibe [Zetia] 10 mg PO DAILY #90 tab 09/12/24 [Rx] HYDROcodone/APAP 10-325MG [[place] 10-325] 1 tab PO Q4-6H PRN #40 tab 09/12/24 [Rx] Hydrocortisone [Cortef] 5 mg PO HS #60 tab 09/12/24 [Rx] Hydrocortisone [Cortef] 10 mg PO DAILY #60 tab 09/12/24 [Rx] cefaDROXiL [Duricef] 500 mg PO Q12HR #10 cap 09/12/24 [Rx] tiZANidine [Zanaflex] 2 mg PO TID PRN #40 tab 09/12/24 [Rx] Nitroglycerin Sl Tabs [Nitrostat] 0.4 mg SUBLINGUAL Q5M PRN 09/14/24 [History] Sennosides-Docusate Sodium [Senokot-S] 2 tab PO DAILY 09/14/24 [History] Estradiol Cream [Estrace Cream 0.01%] 1 applic VAGINAL DAILY PRN #1 each 09/16/24 [Rx] Nystatin 100,000 Unit/ml Susp [Mycostatin Oral Susp] 500,000 unit PO QID 7 Days #140 ml 09/16/24 [Rx] Follow up Appointment(s)/Referral(s): Will Ojeda MD [STAFF PHYSICIAN] - 09/24/24 9:30 am [facility], [NON-STAFF] - As Needed ([facility] will call after discharge to set up your first contact) [facility] [Primary Care Provider[facility] - 1-2 days Timur Pettit DO [Doctor of Osteopathic Medicine] - [facility] - As Needed (Resource contact per patient request. Please contact for information regarding Hospital bed and Grab bars) Patient Instructions/Handouts: Noncardiac Chest Pain (DC) Activity/Diet/Wound Care/Special Instructions: Please see your PCP and cardiology. Discharge Disposition: HOME WITH HOME HEALTH SERVICES
[2024-09-16] MEDS ORDERED: HEPARIN SODIUM,PORCINE 5,000 UNIT/ML 1 ML VIAL SQ SCH (21:00)
[2024-09-16] MEDS ORDERED: INSULIN DETEMIR (LEVEMIR) 100 UNIT/ML SYR SQ SCH (21:00)
--- NOTE | 2024-09-17 16:52 | CDI ---
Documentation Clarification Form Date: 09/17/2024 04:28:32 PM From: Mignon Huang Phone: Admit Date: 09/15/2024 04:14:00 PM Patient Name: Eleazar Balbuena Visit Number: [id number] Discharge Date: 09/16/2024 03:10:00 PM ATTENTION: The Clinical Documentation Specialists (CDI) and [facility] Coding Staff appreciate your assistance in clarifying documentation. Please respond to the clarification below the line at the bottom and electronically sign. The CDI & [facility] Coding staff will review the response and follow-up if needed. Please note: Queries are made part of the Legal Health Record. If you have any questions, please contact the author of this message via ITS. Doctor/Provider: Adriel Cardoso Your patient has Glucose 307. Please clarify if there is an additional diagnosis related to this value. History/Risk Factors: 53yo F, CADstatus post CABG, NIDDMII w neuropathy, cervical radiculopathysp arthrodesis,GERD,RA, COPD Home Meds: metformin HCL [Glucophage] 1,000 mg PO BID Clinical indicators: Glucose: 09/14 307 09/15 216-257 09/16 [phone] Treatment: Hold home Rx, SSI, monitor forhypoglycemia, Levemir 14u daily SQ, NovoLog 2u SQ ACHS, AccuCheks ACHS Is there an additional diagnosis related to the above lab result/information? [ x] Type 2 diabetes mellitus with hyperglycemia [ ] Type 2 diabetes mellitus no complications [ ] No additional diagnosis/Not clinically significant [ ] Other, please specify [ ] Unable to determine (Template Last Revised: November 2020) MTDD
== END 2024-09-16 15:10 | disposition home health service (06) | DRG 861 ==
LOC: EC 14:31 → 3SCARD 17:12 → OBSVTOIN 09-15 16:14 → 3SCARD 09-15 17:53
PROVIDERS: ADMIT Student in an Organized Health Care Education/Training Program; ATTEND Student in an Organized Health Care Education/Training Program
PROC: 05HB33Z Insertion of Infusion Device into Right Basilic Vein, Percutaneous Approach (ICD-10-PCS; principal; 2024-09-16 14:30)
DX: G89.18 Other acute postprocedural pain (principal); I21.A1 Myocardial infarction type 2; B37.0 Candidal stomatitis; E27.40 Unspecified adrenocortical insufficiency; E11.40 Type 2 diabetes mellitus with diabetic neuropathy, unspecified; I11.9 Hypertensive heart disease without heart failure; M06.9 Rheumatoid arthritis, unspecified; E11.65 Type 2 diabetes mellitus with hyperglycemia; J44.89 Other specified chronic obstructive pulmonary disease; K21.9 Gastro-esophageal reflux disease without esophagitis; D72.828 Other elevated white blood cell count; E87.6 Hypokalemia; E78.5 Hyperlipidemia, unspecified; K59.00 Constipation, unspecified; I25.10 Atherosclerotic heart disease of native coronary artery without angina pectoris; Y83.8 Other surgical procedures as the cause of abnormal reaction of the patient, or of later complication, without mention of misadventure at the time of the procedure; Z79.84 Long term (current) use of oral hypoglycemic drugs; Z79.02 Long term (current) use of antithrombotics/antiplatelets; Z79.82 Long term (current) use of aspirin; Z79.899 Other long term (current) drug therapy; I25.2 Old myocardial infarction; Z95.1 Presence of aortocoronary bypass graft; Z86.018 Personal history of other benign neoplasm; Z87.891 Personal history of nicotine dependence; Z98.1 Arthrodesis status
CPT/HCPCS: 36410; 36415; 71046; 76937; 80048; 80053; 83735; 84484; 85025; 85610; 85730; 93005; 93308; 96361; 96365; 96366; 96375; 96376; 99285

== ENCOUNTER 2024-09-17 05:47 | Emergency (ER) | payer OTHER ==
[2024-09-17 06:02] VITALS: BP 183/101; PULSE 84; RESP 20; TEMP 98.5
--- NOTE | 2024-09-17 06:33 | ED ---
General Adult HPI - General Chief complaint: Fall Stated complaint: Fall, Post-Op Pain Time Seen by Provider: 09/17/24 06:31 Source: patient, family (daughter), RN notes reviewed Mode of arrival: EMS Limitations: physical limitation - History of Present Illness Initial comments: 53-year-old female presented to the ER with a chief complaint of neck and chest discomfort. Patient underwent cervical spine fusion by on 09/10/24. Patient has been taking Regan and tizanidine as prescribed with minimal pain relief. She states the pain was so bad this morning causing her to fall landing on her bilateral knees. Daughter, at bedside, admits she did not hit her head. Reports pain to her right upper extremity and neck. She states the only comfortable position is for her to be on her knees and forearms. She also is reporting a consistent chest discomfort. Patient was discharged yesterday from this facility after evaluation of NSTEMI She states sharp chest discomfort started around 8:30 PM and has progressively continued. She denies any shortness of breath, nausea, vomiting, dizziness or lightheadedness. She does report a history of heart surgery in November 2023. - Related Data Home Medications Medication Instructions Recorded Confirmed metFORMIN HCL [Glucophage] 1,000 mg PO BID 01/19/22 09/14/24 Metoprolol Succinate (ER) [Toprol 50 mg PO DAILY 03/01/24 09/14/24 XL] Pantoprazole [Protonix] 40 mg PO DAILY 03/01/24 09/14/24 Ferrous Sulfate [Iron (65 MG 325 mg PO BID 05/07/24 09/14/24 Elemental)] Gabapentin [Neurontin] 300 mg PO BID 05/07/24 09/14/24 Meenakshi Multivitamin Gummy 2 tab PO DAILY 05/07/24 09/14/24 Isosorbide Mononitrate ER [Imdur] 30 mg PO DAILY 05/07/24 09/14/24 Losartan [Cozaar] 25 mg PO HS 05/07/24 09/14/24 amLODIPine [Norvasc] 2.5 mg PO DAILY 05/07/24 09/14/24 hydroCHLOROthiazide 25 mg PO DAILY 05/07/24 09/14/24 Aspirin 81 mg PO DAILY 09/05/24 09/14/24 Atorvastatin [Lipitor] 80 mg PO HS 09/05/24 09/14/24 Clopidogrel [Plavix] 75 mg PO DAILY 09/05/24 09/14/24 Lubiprostone [Amitiza] 24 mcg PO TID 09/05/24 09/14/24 tiZANidine [Zanaflex] 2 mg PO BID 09/05/24 09/14/24 Nitroglycerin Sl Tabs [Nitrostat] 0.4 mg SUBLINGUAL Q5M PRN 09/14/24 09/14/24 Sennosides-Docusate Sodium 2 tab PO DAILY 09/14/24 09/14/24 [Senokot-S] Previous Rx's Medication Instructions Recorded Dapagliflozin Propanediol [Farxiga] 10 mg PO DAILY #90 tab 09/12/24 Ezetimibe [Zetia] 10 mg PO DAILY #90 tab 09/12/24 HYDROcodone/APAP 10-325MG [Regan 1 tab PO Q4-6H PRN #40 tab 09/12/24 10-325] Hydrocortisone [Cortef] 5 mg PO HS #60 tab 09/12/24 Hydrocortisone [Cortef] 10 mg PO DAILY #60 tab 09/12/24 cefaDROXiL [Duricef] 500 mg PO Q12HR #10 cap 09/12/24 tiZANidine [Zanaflex] 2 mg PO TID PRN #40 tab 09/12/24 Estradiol Cream [Estrace Cream 1 applic VAGINAL DAILY PRN #1 each 09/16/24 0.01%] Nystatin 100,000 Unit/ml Susp 500,000 unit PO QID 7 Days #140 ml 09/16/24 [Mycostatin Oral Susp] Allergies Allergy/AdvReac Type Severity Reaction Status Date / Time peanut Allergy HIVES Verified 09/17/24 06:02 rice Allergy Rash/Hives Verified 09/17/24 06:02 seasonal Allergy Rash/Hives Uncoded 09/17/24 06:02 Review of Systems ROS Statement: Those systems with pertinent positive or pertinent negative responses have been documented in the HPI. ROS Other: All systems not noted in ROS Statement are negative. Past Medical History Past Medical History: Asthma, Coronary Artery Disease (CAD), COPD, Diabetes Mellitus, Hyperlipidemia, Hypertension, Myocardial Infarction (VA), Musculoskeletal Disorder, Rheumatoid Arthritis (RA), Thyroid Disorder Additional Past Medical History / Comment(s): Back Pain, right shoulder pain, Hx Pituitary Tumor, BENIGN. Thyroid disorder. 3 heart attacks-most recent March 2022, 3 stents total, neuropathy; left-sided pleural effusion Last Myocardial Infarction Date:: 10/29/22 History of Any Multi-Drug Resistant Organisms: None Reported Past Surgical History: Section, Coronary Bypass/CABG, Heart Catheterization With Stent, Tubal Ligation Additional Past Surgical History / Comment(s): Pituitary Tumor Removed. colonoscopy, [facility] PROC[facility]URES stents x3 c section x4; three-vessel off- pump CABG January 04, 2024; left-sided thoracentesis with removal of 950 mL fluid on January 22, 2024 Past Anesthesia/Blood Transfusion Reactions: No Reported Reaction Date of Last Stent Placement:: March 2022 Past Psychological History: Anxiety, Depression Smoking Status: Former smoker Past Alcohol Use History: None Reported Past Drug Use History: Marijuana - Past Family History Mother History Unknown: Yes Family Medical History: Deep Vein Thrombosis (DVT) Additional Family Medical History / Comment(s): Mother is alive at age 67 with history of coronary artery disease and three-vessel CABG. Daughter(s) History Unknown: Yes Family Medical History: Deep Vein Thrombosis (DVT) Additional Family Medical History / Comment(s): Patient has a total of 9 children with no major medical problems. Father History Unknown: Yes Family Medical History: Cancer Additional Family Medical History / Comment(s): Father is alive with no history of coronary artery disease. History of Prostate Cancer Sister(s) History Unknown: Yes Additional Family Medical History / Comment(s): The patient has 4 sisters and 1 brother. One sister had a myocardial infraction at age 40. General Exam Limitations: physical limitation General appearance: alert, in no apparent distress Head exam: Present: atraumatic, normocephalic, normal inspection Neck exam: Present: other (Brace in place. Surgical incision right anterior neck) Respiratory exam: Present: normal lung sounds bilaterally. Absent: respiratory distress, wheezes, rales, rhonchi, stridor Cardiovascular Exam: Present: regular rate, normal rhythm, normal heart sounds. Absent: systolic murmur, diastolic murmur, rubs, gallop, clicks Extremities exam: Present: normal inspection, full ROM, normal capillary refill, other (2+ bilateral radial pulses. Patient has full range of motion. 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 Absent: tenderness, pedal edema, joint swelling, calf tenderness Back exam: Present: normal inspection Neurological exam: Present: alert, oriented X3 Psychiatric exam: Present: anxious Skin exam: Present: warm, dry, intact, normal color. Absent: rash Course Vital Signs 09/17/24 05:57 Temperature 98.5 F Pulse Rate 84 Respiratory 20 Rate Blood Pressure 183/101 O2 Sat by Pulse 95 Oximetry Medical Decision Making - Medical Decision Making Was pt. sent in by a medical professional or institution (, PA, CABLE TENDER, urgent care, hospital, or detention...) When possible be specific @ -No Did you speak to anyone other than the patient for history (EMS, parent, family, police, friend...)? What history was obtained from this source @ -Daughter aiding in HPI and past medical history. Did you review nursing and triage notes (agree or disagree)? Why? @ -I reviewed and agree with nursing and triage notes Were old charts reviewed (outside hosp., previous admission, EMS record, old EKG, old radiological studies, urgent care reports/EKG's, detention records)? Report findings @ -Yes, I reviewed ER visit from 09-15-2024. Patient admitted for NSTEMI, patient discharged yesterday. Differential Diagnosis (chest pain, altered mental status, abdominal pain women, abdominal pain men, vaginal bleeding, weakness, fever, dyspnea, syncope, headache, dizziness, GI bleed, back pain, seizure, CVA, palpatations, mental health, musculoskeletal)? @ -Differential Chest Pain:Stable Angina, Unstable Angina, STEMI, NSTEMI Aortic Dissection, Pneumothorax, Musculoskeletal, Esophageal Spasm GERD, Cholecystitis, Pancreatitis, Zoster, this is not meant to be an all-inclusive list. EKG interpreted by me (3pts min.). @ -As above X-rays interpreted by me (1pt min.). @ -Patient refused CT interpreted by me (1pt min.). @ -None done U/S interpreted by me (1pt. min.). @ -None done What testing was considered but not performed or refused? (CT, X-rays, U/S, labs)? Why? @ -Patient refused x-ray imaging and repeat blood work as first draw of troponin was hemolyzed. What meds were considered but not given or refused? Why? @ -None Did you discuss the management of the patient with other professionals (professionals i.e. DrJenniffer, PA, CABLE TENDER, lab, RT, psych nurse, social media campaign manager, forest fire fighter, teacher, principal gifts officer, residential case manager)? Give summary @ -No Was smoking cessation discussed for >3mins.? @ -No Was critical care preformed (if so, how long)? @ -No Were there social determinants of health that impacted care today? How? (Homelessness, low income, unemployed, alcoholism, drug addiction, transportation, low edu. Level, literacy, decrease access to med. care, correction, rehab)? @ -No Was there de-escalation of care discussed even if they declined (Discuss DNR or withdrawal of care, Hospice)? DNR status @ -No What co-morbidities impacted this encounter? (DM, HTN, Smoking, COPD, CAD, Cancer, CVA, ARF, Chemo, Hep., AIDS, mental health diagnosis, sleep apnea, morbid obesity)? @ -History of cervical fusion , Asthma, CAD, COPD, diabetes mellitus, hypertension, hyperlipidemia, thyroid disorder. Was patient admitted / discharged? Hospital course, mention meds given and route, prescriptions, significant lab abnormalities, going to OR and other p ertinent info. @ -Left AGAINST MEDICAL ADVICE. 53-year-old female presented to the ER with a chief complaint of neck pain and chest discomfort. History and physical exam completed. Patient is hypertensive 183/101 vitals otherwise stable. Hypertension believed to be due to pain. Patient no signs of acute distress but is unable to sit still in exam room due to pain. Laboratory studies ordered. Patient refused x-rays and repeat draw of troponin as first draw was hemolyzed. EKG showing no acute evidence of infarct or ischemia. Patient received Nitropaste and morphine for pain control in the ER. Patient displayed medical decision-making capabilities and left AGAINST MEDICAL ADVICE prior to completion of medical treatment. Case discussed with ED attending, Dr. Lynn. Undiagnosed new problem with uncertain prognosis? @ -No Drug Therapy requiring intensive monitoring for toxicity (Heparin, Nitro, Insulin, Cardizem)? @ -No Were any procedures done? @ -No Diagnosis/symptom? @ -Left hand medical advice Acute, or Chronic, or Acute on Chronic? @ -N/A Uncomplicated (without systemic symptoms) or Complicated (systemic symptoms)? @ -N/A Side effects of treatment? @ -No Exacerbation, Progression, or Severe Exacerbation? @ -No Poses a threat to life or bodily function? How? (Chest pain, USA, VA, pneumonia, PE, COPD, DKA, ARF, appy, cholecystitis, CVA, Diverticulitis, Homicidal, Suicidal, threat to staff... and all critical care pts) @ -Undetermined - Lab Data Result diagrams: 09/17/24 07:00 09/17/24 07:00 Lab Results 09/17/24 09/17/24 09/17/24 Range/Units 07:00 07:00 07:00 WBC 11.7 H (3.8-10.6) k/uL RBC 4.10 (3.80-5.40) m/uL Hgb 12.0 (11.4-16.0) gm/dL Hct 36.5 (34.0-46.0) % MCV 89.0 (80.0-100.0) fL MCH 29.2 (25.0-35.0) pg MCHC 32.8 (31.0-37.0) g/dL RDW 12.8 (11.5-15.5) % Plt Count 260 (150-450) k/uL MPV 7.3 Neutrophils % 68 % Lymphocytes % 23 % Monocytes % 4 % Eosinophils % 2 % Basophils % 0 % Neutrophils # 7.9 H (1.3-7.7) k/uL Lymphocytes # 2.7 (1.0-4.8) k/uL Monocytes # 0.5 (0-1.0) k/uL Eosinophils # 0.2 (0-0.7) k/uL Basophils # 0.0 (0-0.2) k/uL Sodium 135 L (137-145) mmol/L Potassium 4.0 (3.5-5.1) mmol/L Chloride 101 (98-107) mmol/L Carbon Dioxide 28 (22-30) mmol/L Anion Gap 6 mmol/L BUN 11 (7-17) mg/dL Creatinine 0.59 (0.52-1.04) mg/dL Est GFR (CKD-EPI)AfAm >90 (>60 ml/min/1.73 sqM) Est GFR (CKD-EPI)NonAf >90 (>60 ml/min/1.73 sqM) Glucose 256 H (74-99) mg/dL Calcium 9.8 (8.4-10.2) mg/dL Magnesium 1.7 (1.6-2.3) mg/dL Total Bilirubin 0.8 (0.2-1.3) mg/dL AST 18 (14-36) U/L ALT 16 (4-34) U/L Alkaline Phosphatase 149 H (38-126) U/L Troponin I 0.030 (0.000-0.034) ng/mL Total Protein 7.0 (6.3-8.2) g/dL Albumin 3.8 (3.5-5.0) g/dL - EKG Data -: EKG Interpreted by Me EKG Comments: EKG taken at 6: 36 showing a normal sinus rhythm. No acute ST segment or T wave abnormalities. Ventricular rate 92, NH interval 136, QRS duration 102, QT/QTc 339/389 Disposition Clinical Impression: Left against medical advice Disposition: LEFT AGAINST MEDICAL ADVICE Condition: Undetermined Referrals: [facility] [Primary Care Provider] - 1-2 days Time of Disposition: 08:07
[2024-09-17] MEDS: NITROGLYCERIN OINT 1 INCH/GM PACKET TOPICAL STA (06:37)
[2024-09-17 07:15] LABS: Basophils % (A) 0 %; Eosinophils # (A) 0.2 k/uL (0-0.7); Eosinophils % (A) 2 %; HCT 36.5 % (34.0-46.0); Lymphocytes # (A) 2.7 k/uL (1.0-4.8); Lymphocytes % (A) 23 %; MCH 29.2 pg (25.0-35.0); MCHC 32.8 g/dL (31.0-37.0); Mean Platelet Volume 7.3; Monocytes # (A) 0.5 k/uL (0-1.0); Monocytes % (A) 4 %; Neutrophils # (A) 7.9 k/uL (1.3-7.7); Neutrophils % (A) 68 %; Platelet Count 260 k/uL (150-450); RDW 12.8 % (11.5-15.5); WBC 11.7 k/uL (3.8-10.6)
[2024-09-17] MEDS: MORPHINE SULFATE 4 MG/ML SYRINGE IVP STA (07:21)
[2024-09-17] MEDS: SODIUM CHLORIDE 0.9% 1,000 ML IV STA (07:21)
[2024-09-17 07:40] LABS: ALT 16 U/L (4-34); AST 18 U/L (14-36); African American GFR (CKD) >90 (>60 ml/min/1.73 sqM); Albumin 3.8 g/dL (3.5-5.0); Alkaline Phosphatase 149 U/L (38-126); Anion Gap 6 mmol/L; Blood Urea Nitrogen 11 mg/dL (7-17); Calcium 9.8 mg/dL (8.4-10.2); Carbon Dioxide 28 mmol/L (22-30); Chloride 101 mmol/L (98-107); Glucose 256 mg/dL (74-99); Magnesium 1.7 mg/dL (1.6-2.3); Non-African American GFR(CKD) >90 (>60 ml/min/1.73 sqM); Sodium 135 mmol/L (137-145); Total Bilirubin 0.8 mg/dL (0.2-1.3)
[2024-09-17] MEDS ORDERED: HYDROmorphone 1 MG/ML 1 ML SYRINGE IVP STA (07:40)
== END 2024-09-17 08:11 | disposition left against medical advice (07) ==
LOC: EC 05:47
DX: Z53.29 Procedure and treatment not carried out because of patient's decision for other reasons (principal); Z87.891 Personal history of nicotine dependence; Z91.010 Allergy to peanuts; Z91.018 Allergy to other foods
CPT/HCPCS: 36415; 93005; 80053; 83735; 84484; 85025; 99284; 96374; 96361; J2270

== ENCOUNTER → 2024-09-23 | Outpatient (CLI) | payer OTHER ==
--- NOTE | 2024-09-23 11:16 | CT ---
EXAMINATION TYPE: CT cervical spine wo con CT DLP: 399.7 mGycm, Automated exposure control for dose reduction was used. DATE OF EXAM: 09/23/2024 10:51 AM COMPARISON: CT cervical spine 09/11/2024, 06/26/2024, 05/08/2024, MR cervical spine 09/08/2024. CLINICAL INDICATION:Female, 53 years old with history of M54.2 cervicalgia; PHH, Post cervical sx alfredo n TECHNIQUE: Axial CT images from the skull base to the inferior aspect of T2 we obtained without intra venous contrast. Coronal and sagittal reformatted images were also reviewed. FINDINGS: Postsurgical changes from ACDF involving C3-C7 with surrounding soft tissue gas and edema. Multilevel disc spacers identified. No acute fracture. Hardware appears intact. There is some posterior No siza ble fluid collection. No spondylolisthesis. Hardware creates streak artifact which limits evaluation. No gross evidence of significant central canal stenosis. No gross evidence of significant neuroforam inal stenosis. Median sternotomy wires. Right carotid bulb calcifications. Few mildly prominent bilateral jugular ly mph nodes. Heterogenous appearance of the thyroid gland. IMPRESSION: Redemonstration of postsurgical changes from ACDF C3-C7. Hardware appears intact with stable alignmen t. There is slight decrease in surrounding soft tissue gas and fluid from prior exam. No sizable flui d collection. The amount of residual gas identified within the prevertebral soft tissues is of questi onable concern. May represent residual postsurgical changes with other etiologies not excluded. Dale nued clinical surveillance is recommended. [facility], , 09/23/2024 11:14 AM
== END | disposition home or self-care (01) ==
LOC: RADCTMAIN 08:52
PROVIDERS: ATTEND Orthopaedic Surgery
DX: M54.2 Cervicalgia (principal); Z98.1 Arthrodesis status
CPT/HCPCS: 72125

== ENCOUNTER 2024-10-01 17:50 | Inpatient (IN) | payer OTHER ==
--- NOTE | 2024-10-01 18:44 | XR ---
EXAMINATION TYPE: XR chest 2V DATE OF EXAM: 10/01/2024 6:41 PM COMPARISON: 09/14/2024 CLINICAL INDICATION: Female, 53 years old with history of Chest Pain, TECHNIQUE: XR chest 2V view(s) obtained. FINDINGS: The heart size is normal. The pulmonary vasculature is normal. The lungs are clear. Sternotomy wires are midline. IMPRESSION: 1. No acute pulmonary process. [facility], , 10/01/2024 6:42 PM
[2024-10-01] MEDS: KETOROLAC 15 MG/ML 1 ML VIAL IVP STA (18:52)
[2024-10-01] MEDS: NITROGLYCERIN SL TABS 0.4 MG TAB SUBLINGUAL STA (18:53)
[2024-10-01] MEDS: SODIUM CHLORIDE 0.9% 1,000 ML IV STA (18:53)
[2024-10-01 19:04] LABS: Basophils % (A) 0 %; Eosinophils # (A) 0.1 k/uL (0-0.7); Eosinophils % (A) 1 %; HCT 36.6 % (34.0-46.0); HGB 12.3 gm/dL (11.4-16.0); Lymphocytes # (A) 3.1 k/uL (1.0-4.8); Lymphocytes % (A) 33 %; MCH 29.8 pg (25.0-35.0); MCHC 33.5 g/dL (31.0-37.0); MCV 88.9 fL (80.0-100.0); Mean Platelet Volume 7.6; Monocytes # (A) 0.4 k/uL (0-1.0); Monocytes % (A) 4 %; Neutrophils # (A) 5.7 k/uL (1.3-7.7); Neutrophils % (A) 61 %; Platelet Count 326 k/uL (150-450); RBC 4.12 m/uL (3.80-5.40); RDW 13.6 % (11.5-15.5); WBC 9.4 k/uL (3.8-10.6)
[2024-10-01 19:16] LABS: ALT 22 U/L (4-34); AST 19 U/L (14-36); African American GFR (CKD) >90 (>60 ml/min/1.73 sqM); Albumin 3.8 g/dL (3.5-5.0); Alkaline Phosphatase 135 U/L (38-126); Anion Gap 8 mmol/L; Blood Urea Nitrogen 16 mg/dL (7-17); Calcium 9.5 mg/dL (8.4-10.2); Carbon Dioxide 27 mmol/L (22-30); Chloride 97 mmol/L (98-107); Lipase 489 U/L (23-300); Magnesium 1.9 mg/dL (1.6-2.3); Non-African American GFR(CKD) >90 (>60 ml/min/1.73 sqM); Potassium 3.5 mmol/L (3.5-5.1); Sodium 132 mmol/L (137-145); Total Bilirubin 0.3 mg/dL (0.2-1.3); Total Protein 6.4 g/dL (6.3-8.2)
[2024-10-01 19:24] LABS: INR 0.9 (<1.2); Prothrombin Time 9.9 sec (10.0-12.5)
[2024-10-01 19:25] LABS: Partial Thromboplastin Time 20.9 sec (22.0-30.0)
[2024-10-01 19:28] LABS: Glucose 599 mg/dL (74-99)
[2024-10-01] MEDS ORDERED: NALOXONE 0.4 MG/ML 1 ML VIAL IV PRN (20:23)
[2024-10-01] MEDS ORDERED: ONDANSETRON 4 MG/2 ML VIAL IVP PRN (20:23)
--- NOTE | 2024-10-01 20:25 | ED ---
General Adult HPI - General Chief complaint: Chest Pain Stated complaint: chest pain Time Seen by Provider: 10/01/24 18:15 Source: patient, EMS, RN notes reviewed, old records reviewed Mode of arrival: EMS Limitations: no limitations - History of Present Illness Initial comments: Patient is a 53-year-old female with past medical history remarkable for CABG, stenting, neck surgery. Has chronic chest pain which she states she experiences on a daily basis. States that has been worse over the last week or so. States it is substernal tightness pressure sensation with no radiation. No significant nausea or vomiting with it. No sweating. No shortness of breath. Patient does endorse chronic neck pain as well. Is currently not on any controlled substances at home. Presents for further evaluation. Denies fevers, chills, cough. Denies nausea or vomiting or diarrhea. No other acute complaints at this time. Presents for further evaluation. Attempted at home with no significant improvement. Patient did receive 324 mg of aspirin from EMS. - Related Data Home Medications Medication Instructions Recorded Confirmed metFORMIN HCL [Glucophage] 1,000 mg PO BID 01/19/22 10/01/24 Metoprolol Succinate (ER) [Toprol 50 mg PO DAILY 03/01/24 10/01/24 XL] Pantoprazole [Protonix] 40 mg PO DAILY 03/01/24 10/01/24 Ferrous Sulfate [Iron (65 MG 325 mg PO BID 05/07/24 10/01/24 Elemental)] Gabapentin [Neurontin] 300 mg PO BID 05/07/24 10/01/24 Meenakshi Multivitamin Gummy 2 tab PO DAILY 05/07/24 10/01/24 Isosorbide Mononitrate ER [Imdur] 30 mg PO DAILY 05/07/24 10/01/24 Losartan [Cozaar] 25 mg PO HS 05/07/24 10/01/24 amLODIPine [Norvasc] 2.5 mg PO DAILY 05/07/24 10/01/24 hydroCHLOROthiazide 25 mg PO DAILY 05/07/24 10/01/24 Aspirin 81 mg PO DAILY 09/05/24 10/01/24 Atorvastatin [Lipitor] 80 mg PO HS 09/05/24 10/01/24 Clopidogrel [Plavix] 75 mg PO DAILY 09/05/24 10/01/24 Lubiprostone [Amitiza] 24 mcg PO TID 09/05/24 10/01/24 tiZANidine [Zanaflex] 2 mg PO BID 09/05/24 10/01/24 Nitroglycerin Sl Tabs [Nitrostat] 0.4 mg SUBLINGUAL Q5M PRN 09/14/24 10/01/24 Sennosides-Docusate Sodium 2 tab PO DAILY 09/14/24 10/01/24 [Senokot-S] Ibuprofen [Motrin] 800 mg PO TID PRN 10/01/24 10/01/24 oxyCODONE HCL [OxyIR] 5 mg PO Q4H PRN 10/01/24 10/01/24 Previous Rx's Medication Instructions Recorded Dapagliflozin Propanediol [Farxiga] 10 mg PO DAILY #90 tab 09/12/24 Ezetimibe [Zetia] 10 mg PO DAILY #90 tab 09/12/24 HYDROcodone/APAP 10-325MG [[place] 1 tab PO Q4-6H PRN #40 tab 09/12/24 10-325] Hydrocortisone [Cortef] 5 mg PO HS #60 tab 09/12/24 Hydrocortisone [Cortef] 10 mg PO DAILY #60 tab 09/12/24 tiZANidine [Zanaflex] 2 mg PO TID PRN #40 tab 09/12/24 Estradiol Cream [Estrace Cream 1 applic VAGINAL DAILY PRN #1 each 09/16/24 0.01%] Allergies Allergy/AdvReac Type Severity Reaction Status Date / Time peanut Allergy HIVES Verified 10/01/24 20:57 rice Allergy Rash/Hives Verified 10/01/24 20:57 seasonal Allergy Rash/Hives Uncoded 10/01/24 18:01 Review of Systems ROS Statement: Those systems with pertinent positive or pertinent negative responses have been documented in the HPI. Review of Systems: CONST: Denies fever EYES: Denies blurry vision ENT: Denies nasal congestion C/V: Endorses chest pain RESP: Denies shortness of breath GI: Denies abdominal pain : Denies dysuria SKIN: Denies rash. MSK: Denies joint pain. NEURO: Denies headache ROS Other: All systems not noted in ROS Statement are negative. Past Medical History Past Medical History: Asthma, Coronary Artery Disease (CAD), COPD, Diabetes Mellitus, Hyperlipidemia, Hypertension, Myocardial Infarction (ID), Musculoskeletal Disorder, Rheumatoid Arthritis (RA), Thyroid Disorder Additional Past Medical History / Comment(s): Back Pain, right shoulder pain, Hx Pituitary Tumor, BENIGN. Thyroid disorder. 3 heart attacks-most recent March 2022, 3 stents total, neuropathy; left-sided pleural effusion Last Myocardial Infarction Date:: 10/29/22 History of Any Multi-Drug Resistant Organisms: None Reported Past Surgical History: Section, Coronary Bypass/CABG, Heart Catheterization With Stent, Tubal Ligation Additional Past Surgical History / Comment(s): Pituitary Tumor Removed. colonoscopy, [facility] PROCEDURES stents x3 c section x4; three-vessel off- pump CABG January 04, 2024; left-sided thoracentesis with removal of 950 mL fluid on January 22, 2024 Past Anesthesia/Blood Transfusion Reactions: No Reported Reaction Date of Last Stent Placement:: March 2022 Past Psychological History: Anxiety, Depression Smoking Status: Former smoker Past Alcohol Use History: None Reported Past Drug Use History: None Reported - Past Family History Mother History Unknown: Yes Family Medical History: Deep Vein Thrombosis (DVT) Additional Family Medical History / Comment(s): Mother is alive at age 67 with history of coronary artery disease and three-vessel CABG. Daughter(s) History Unknown: Yes Family Medical History: Deep Vein Thrombosis (DVT) Additional Family Medical History / Comment(s): Patient has a total of 9 children with no major medical problems. Father History Unknown: Yes Family Medical History: Cancer Additional Family Medical History / Comment(s): Father is alive with no history of coronary artery disease. History of Prostate Cancer Sister(s) History Unknown: Yes Additional Family Medical History / Comment(s): The patient has 4 sisters and 1 brother. One sister had a myocardial infraction at age 40. General Exam - General Exam Comments Initial Comments: General: Appears in no acute distress. HEAD: Normal with no signs of head trauma. EYES: PERRLA, EOMI, conjunctiva normal, no discharge. ENT: Hearing grossly intact, normal oropharynx. RESPIRATORY: Clear breath sounds bilaterally. No wheezes, rales, or rhonchi. C/V: Regular rate and rhythm. S1 and S2 auscultated. Peripheral pulses 2+ intact throughout. ABD: Abd is soft, nontender, nondistended EXT: Normal range of motion, no obvious deformity SKIN: No rashes or lesions observed on exposed skin. NEURO: Oriented x 4. Limitations: no limitations Course Vital Signs 10/01/24 10/01/24 10/01/24 17:55 19:00 19:30 Temperature 98.3 F Pulse Rate 92 80 82 Respiratory 16 15 20 Rate Blood Pressure 142/77 170/79 146/83 O2 Sat by Pulse 97 97 97 Oximetry 10/01/24 10/01/24 10/01/24 20:00 20:30 21:00 Temperature Pulse Rate 90 89 85 Respiratory 21 19 18 Rate Blood Pressure 142/96 124/67 119/74 O2 Sat by Pulse 98 98 96 Oximetry Medical Decision Making - Medical Decision Making Was pt. sent in by a medical professional or institution (, PA, MRI TECH, urgent care, hospital, or senior care...) When possible be specific @ -No Did you speak to anyone other than the patient for history (EMS, parent, family, police, friend...)? What history was obtained from this source @ -No Did you review nursing and triage notes (agree or disagree)? Why? @ -I reviewed and agree with nursing and triage notes Were old charts reviewed (outside hosp., previous admission, EMS record, old EKG, old radiological studies, urgent care reports/EKG's, senior care records)? Report findings @ -Reviewed EKGs from August 2024 which showed chronic mild ST segment elevations in V2. Differential Diagnosis (chest pain, altered mental status, abdominal pain women, abdominal pain men, vaginal bleeding, weakness, fever, dyspnea, syncope, headache, dizziness, GI bleed, back pain, seizure, CVA, palpatations, mental health, musculoskeletal)? @ -Differential Chest Pain: Stable Angina, Unstable Angina, STEMI, NSTEMI Aortic Dissection, Pneumothorax, Musculoskeletal, Esophageal Spasm GERD, Cholecystitis, Pancreatitis, Zoster, this is not meant to be an all-inclusive list. EKG interpreted by me (3pts min.). @ -As above X-rays interpreted by me (1pt min.). @ -Chest reveals no obvious acute cardiopulmonary process. CT interpreted by me (1pt min.). @ -None done U/S interpreted by me (1pt. min.). @ -None done What testing was considered but not performed or refused? (CT, X-rays, U/S, labs)? Why? @ -None What meds were considered but not given or refused? Why? @ -Considered aspirin however received it from EMS. Did you discuss the management of the patient with other professionals (professionals i.e. , VICTOR HUGO, MRI TECH, lab, RT, psych nurse, social media campaign manager, pathology technologist, teacher, chief juvenile probation officer, oil field caser)? Give summary @ -Discussed with the admitting provider, Dr. Clayton who accepted the admission. Was smoking cessation discussed for >3mins.? @ -No Was critical care preformed (if so, how long)? @ -Yes, 36 minutes. Were there social determinants of health that impacted care today? How? (Homelessness, low income, unemployed, alcoholism, drug addiction, transportation, low edu. Level, literacy, decrease access to med. care, senior care, rehab)? @ -No Was there de-escalation of care discussed even if they declined (Discuss DNR or withdrawal of care, Hospice)? DNR status @ -No What co-morbidities impacted this encounter? (DM, HTN, Smoking, COPD, CAD, Cancer, CVA, ARF, Chemo, Hep., AIDS, mental health diagnosis, sleep apnea, morbid obesity)? @ -CAD, CABG Was patient admitted / discharged? Hospital course, mention meds given and route, prescriptions, significant lab abnormalities, going to OR and other p ertinent info. @ -Patient presents with acute on chronic chest pain. We will obtain cardiac workup. Given nitro which did help with her pain but is also complaining of other pain from her chronic neck pain. Patient given IV analgesia medications at that time. Vitals within acceptable limits. EKGs x 2 showed no evidence of acute ischemia. Chronic changes present. Chest x-ray unremarkable. Labs remarkable for elevated glucose of 599 with IV fluids as well as elevated troponin of 0.043. As patient has elevated troponin, chest pain responding to nitro, as well as significant past medical history with CABG we will admit the patient on heparin for NSTEMI. Patient was in agreement this plan. Cardiology consulted. Echo ordered. Discussed with the admitting provider, Dr. Clayton who accepted the admission. Undiagnosed new problem with uncertain prognosis? @ -No Drug Therapy requiring intensive monitoring for toxicity (Heparin, Nitro, Insulin, Cardizem)? @ -Heparin Were any procedures done? @ -No Diagnosis/symptom? @ -NSTEMI, chest pain Acute, or Chronic, or Acute on Chronic? @ -Acute Uncomplicated (without systemic symptoms) or Complicated (systemic symptoms)? @ -Complicated Side effects of treatment? @ -No Exacerbation, Progression, or Severe Exacerbation? @ -No Poses a threat to life or bodily function? How? (Chest pain, [place], ID, pneumonia, PE, COPD, DKA, ARF, appy, cholecystitis, CVA, Diverticulitis, Homicidal, Suicidal, threat to staff... and all critical care pts) @ -Possibly, yes - Lab Data Result diagrams: 10/01/24 18:57 10/01/24 18:57 Lab Results 10/01/24 10/01/24 10/01/24 Range/Units 18:57 18:57 18:57 WBC 9.4 (3.8-10.6) k/uL RBC 4.12 (3.80-5.40) m/uL Hgb 12.3 (11.4-16.0) gm/dL Hct 36.6 (34.0-46.0) % MCV 88.9 (80.0-100.0) fL MCH 29.8 (25.0-35.0) pg MCHC 33.5 (31.0-37.0) g/dL RDW 13.6 (11.5-15.5) % Plt Count 326 (150-450) k/uL MPV 7.6 Neutrophils % 61 % Lymphocytes % 33 % Monocytes % 4 % Eosinophils % 1 % Basophils % 0 % Neutrophils # 5.7 (1.3-7.7) k/uL Lymphocytes # 3.1 (1.0-4.8) k/uL Monocytes # 0.4 (0-1.0) k/uL Eosinophils # 0.1 (0-0.7) k/uL Basophils # 0.0 (0-0.2) k/uL PT 9.9 L (10.0-12.5) sec INR 0.9 (<1.2) APTT 20.9 L (22.0-30.0) sec Sodium 132 L (137-145) mmol/L Potassium 3.5 (3.5-5.1) mmol/L Chloride 97 L (98-107) mmol/L Carbon Dioxide 27 (22-30) mmol/L Anion Gap 8 mmol/L BUN 16 (7-17) mg/dL Creatinine 0.72 (0.52-1.04) mg/dL Est GFR (CKD-EPI)AfAm >90 (>60 ml/min/1.73 sqM) Est GFR (CKD-EPI)NonAf >90 (>60 ml/min/1.73 sqM) Glucose 599 H* (74-99) mg/dL Calcium 9.5 (8.4-10.2) mg/dL Magnesium 1.9 (1.6-2.3) mg/dL Total Bilirubin 0.3 (0.2-1.3) mg/dL AST 19 (14-36) U/L ALT 22 (4-34) U/L Alkaline Phosphatase 135 H (38-126) U/L Troponin I (0.000-0.034) ng/mL Total Protein 6.4 (6.3-8.2) g/dL Albumin 3.8 (3.5-5.0) g/dL Lipase 489 H (23-300) U/L Influenza Type A (PCR) (Not Detectd) Influenza Type B (PCR) (Not Detectd) RSV (PCR) (Not Detectd) SARS-CoV-2 (PCR) (Not Detectd) 10/01/24 10/01/24 Range/Units 18:57 19:25 WBC (3.8-10.6) k/uL RBC (3.80-5.40) m/uL Hgb (11.4-16.0) gm/dL Hct (34.0-46.0) % MCV (80.0-100.0) fL MCH (25.0-35.0) pg MCHC (31.0-37.0) g/dL RDW (11.5-15.5) % Plt Count (150-450) k/uL MPV Neutrophils % % Lymphocytes % % Monocytes % % Eosinophils % % Basophils % % Neutrophils # (1.3-7.7) k/uL Lymphocytes # (1.0-4.8) k/uL Monocytes # (0-1.0) k/uL Eosinophils # (0-0.7) k/uL Basophils # (0-0.2) k/uL PT (10.0-12.5) sec INR (<1.2) APTT (22.0-30.0) sec Sodium (137-145) mmol/L Potassium (3.5-5.1) mmol/L Chloride (98-107) mmol/L Carbon Dioxide (22-30) mmol/L Anion Gap mmol/L BUN (7-17) mg/dL Creatinine (0.52-1.04) mg/dL Est GFR (CKD-EPI)AfAm (>60 ml/min/1.73 sqM) Est GFR (CKD-EPI)NonAf (>60 ml/min/1.73 sqM) Glucose (74-99) mg/dL Calcium (8.4-10.2) mg/dL Magnesium (1.6-2.3) mg/dL Total Bilirubin (0.2-1.3) mg/dL AST (14-36) U/L ALT (4-34) U/L Alkaline Phosphatase (38-126) U/L Troponin I 0.043 H* (0.000-0.034) ng/mL Total Protein (6.3-8.2) g/dL Albumin (3.5-5.0) g/dL Lipase (23-300) U/L Influenza Type A (PCR) Not Detected (Not Detectd) Influenza Type B (PCR) Not Detected (Not Detectd) RSV (PCR) Not Detected (Not Detectd) SARS-CoV-2 (PCR) Not Detected (Not Detectd) - EKG Data -: EKG Interpreted by Me EKG Comments: 12-lead Electrocardiogram Interpretation Note EKG was reviewed and interpreted by myself. 12-lead ECG performed at 1832 is interpreted by me as revealing normal sinus rhythm at a rate of 85 beats per mi nute. [place] is normal. ND interval is 138 ms, QRS duration is 100 ms, QTc is 399 ms.. There is mild elevation in V2 of the ST segment which appears chronic as compared with EKG from September 14, 2024.. R wave progression across the precordium was satisfactory. By my interpretation this EKG is non-diagnostic for acute ischemia. 12-lead Electrocardiogram Interpretation Note EKG was reviewed and interpreted by myself. 12-lead ECG performed at 1933 is interpreted by me as revealing normal sinus rhythm at a rate of 80 beats per minute. [place] is normal. ND interval is 143 ms, QRS duration is 106 ms, QTc is [address] segment elevation that is mild redemonstrated in V2.. R wave progression across the precordium was satisfactory. By my interpretation this EKG is non-diagnostic for acute ischemia. Critical Care Time Critical Care Time: Yes Total Critical Care Time: 36 Disposition Clinical Impression: NSTEMI (non-ST elevated myocardial infarction), Chest pain Disposition: ADMITTED IP TO THIS HOSP Condition: Stable Time of Disposition: 20:25
[2024-10-01] MEDS: MORPHINE SULFATE 4 MG/ML SYRINGE IVP STA (20:29)
[2024-10-01] MEDS: HEPARIN SODIUM 1,000 UN/ML (10ML VL) IV ONE (20:30)
[2024-10-01] MEDS: HEPARIN SOD,PORK IN 0.45% NACL 25,000 UNIT in 0.45% NACL 1 250ML.BAG IV SCH (20:32)
[2024-10-01 21:08] LABS: Appearance,Urine Clear (Clear); Bilirubin,Urine Negative (Negative); Blood,Urine Negative (Negative); Color,Urine Colorless; Glucose,Urine (UA) 4+ (Negative); Ketones,Urine Negative (Negative); Leukocyte Esterase,Urine Negative (Negative); Nitrite,Urine Negative (Negative); Protein,Urine Negative (Negative); Specific Gravity,Urine 1.036 (1.001-1.035); Urobilinogen,Urine <2.0 mg/dL (<2.0)
[2024-10-01] MEDS: SODIUM CHLORIDE 0.9% 1,000 ML IV SCH (22:04)
--- NOTE | 2024-10-01 22:48 | P.HPIM ---
History of Present Illness H&P Date: 10/01/24 Chief Complaint: Chest pain NSTEMI Patient is a 53-year-old female with past medical history of asthma, coronary artery disease (with 3 stents, estimated left ventricular ejection fraction at 55 to 60% per echocardiogram performed on 09/15/2024), COPD, diabetes, hyperlipidemia, history of myocardial infarction (most recent March 2022), musculoskeletal disorder, rheumatoid arthritis, and thyroid disease presented to the emergency department with chest pain that has been going on for the past several weeks. Patient stated that chest tightness ongoing since neck surgery in August. Patient reports that the chest tightness sensation gets worse with eating and moving. However the chest pain got worse last night which prompted the patient to come to the emergency department. She currently reports a substernal, nonradiating, intermittent chest pain that has a tightness/pressure sensation. Patient reports that nitroglycerin tablets did relieve the chest pain temporarily however eating and moving made the chest pain worse. Patient also reports shortness of breath for the past 2 weeks with walking. Last night after walking up 12 steps, patient reported shortness of breath and had a feeling of passing out. Patient also reports nausea, chills, belly pain (from c hronic gastritis), constipation. Denies vomiting, fever, lower extremity swelling, weakness, tingling or numbness sensation in the upper and lower extremities. ED documentation reviewed. In the ED patient was treated with Toradol 15 mg IV x 1, nitroglycerin 24 mg sublingual x 1, 1 bolus of normal saline, heparin sodium 4000 units IV x 1, morphine 4 mg IV x 1 Vitals on admission pulse rate 85, respiratory rate 18, blood pressure 118/74, O2 sat 96% on room air EKG independently interpreted as possible septal myocardial infarction in V2, sinus rhythm with occasional supraventricular premature complexes CXR shows no acute cardiopulmonary process Labs on admission show WBC 9.4, hemoglobin 12.3, hematocrit 36.6, platelet 326, PT 9.9, PTT 20.9, INR 0.9, sodium 132, potassium 3.5, chloride 97, carbon dioxide 27, BUN 16, creatinine 0.72, glucose 599, alkaline phosphatase 135, troponin 0.043, lipase 489 UA shows 4+ glucose, negative nitrite, negative leukocyte esterase Review of systems: Pertinent positives and negatives as discussed in HPI, a complete review of systems was performed and all other systems are negative. PMH:asthma, coronary artery disease (with 3 stents), COPD, diabetes, hyperlipidemia,, history of myocardial infarction (most recent March 2022), musculoskeletal disorder, rheumatoid arthritis, and thyroid disease. PSH: section x 4, CABG (January 04 2024), heart cath with stent, tubal ligation, pituitary tumor removed, 3 stents in the heart FMH: Mother and daughter have a history of deep vein thrombosis, father has a history of prostate cancer, 1 sister had a myocardial infarction at age 40 Allergies: Peanut, rice, seasonal allergies Social history: Tobacco: Former smoker Alcohol: None reported Recreational drugs: None reported Travel: No recent travel history Sick contacts: No recent sick contacts Physical examination: Vital signs reviewed General: nontoxic, no distress, appears at stated age, well-appearing Derm: warm, dry, intact Head: atraumatic, normocephalic, symmetric Eyes: EOMI, anicteric sclera Mouth: no lip lesion, mucus membranes moist Cardiovascular: S1 S2 reg, no murmur, regular rate Lungs: CTA bilateral, no rhonchi, no rales, no accessory muscle use Abdominal: soft, no tender to palpation, no distention, no signs of peritonitis Musculoskeletal: No joint swelling or deformity. C-collar in place. Extremities: No cyanosis, clubbing, or pedal edema. Neuro: Alert, Oriented, Gross neurological examination did not reveal any focal deficits. Intact upper and lower extremity muscle strength bilaterally 5 out of 5. Cranial nerves II to XII grossly intact. Intact sensation in upper and lower extremity bilaterally. Psych: well appearing, appropriate affect Assessment/Plan: 53-year-old female with past medical history of asthma, coronary artery disease with 3 stents s/p CABG, COPD, diabetes, hyperlipidemia, history of myocardial infarction most recent March 2022, musculoskeletal disorder, rheumatoid arthritis, and thyroid disease presented to the ED with chest pain. Patient will be admitted to inpatient medicine service and will be closely monitored. Active: #. Chest pain, NSTEMI Troponin 0.043 alarm security or surveillance monitor Lipid panel Atorvastatin 80 mg daily aspirin 81 mg po daily plavix daily continue imdur Cardiology consult Order echocardiogram Trend troponin Continue IV heparin #. Diabetes mellitus, uncontrolled Glucose 599 Accu-Cheks Hold home medications Not on any home insulin Sliding scale insulin #. Hyperlipidemia Atorvastatin 80 mg daily continue zetia #. pseudoHyponatremia Sodium 132, corrected Na is 144 Morning CMP Chronic: #. GERD Restart Protonix 40 mg daily #. Status post recent cervical fusion C3-7 anterior cervical discectomy and fusion surgery on 09/10/2024 Continue home pain medications check d dimer, patient presenting with chest pain , has recent spine surgery <1 month , if positive , consider ruling out PE however, D dimer could be elevated post op for 1 month F: No restrictions E: Replete as needed N: Heart healthy diet A: Ambulatory DVT prophylaxis:on heparin gtt for Nstemi The patient is admitted with an anticipated more than 2 midnight stay for evaluation of NSTEMI CODE STATUS: Full code Discussed with: Dr. Clayton Anticipated discharge place: Home I have seen and evaluated the patient today. I Discussed the case with the resident and agree with the resident's findings I edited the assessment and plan as necessary as documented in the resident's note. Past Medical History Past Medical History: Asthma, Coronary Artery Disease (CAD), COPD, Diabetes Mellitus, Hyperlipidemia, Hypertension, Myocardial Infarction (LA), Musculoskeletal Disorder, Rheumatoid Arthritis (RA), Thyroid Disorder Additional Past Medical History / Comment(s): Back Pain, right shoulder pain, Hx Pituitary Tumor, BENIGN. Thyroid disorder. 3 heart attacks-most recent March 2022, 3 stents total, neuropathy; left-sided pleural effusion Last Myocardial Infarction Date:: 10/29/22 History of Any Multi-Drug Resistant Organisms: None Reported Past Surgical History: Section, Coronary Bypass/CABG, Heart Catheterization With Stent, Tubal Ligation Additional Past Surgical History / Comment(s): Pituitary Tumor Removed. colonoscopy, PA[facility] PROCEDURES stents x3 c section x4; three-vessel off- pump CABG January 04, 2024; left-sided thoracentesis with removal of 950 mL fluid on January 22, 2024 Past Anesthesia/Blood Transfusion Reactions: No Reported Reaction Date of Last Stent Placement:: March 2022 Past Psychological History: Anxiety, Depression Smoking Status: Former smoker Past Alcohol Use History: None Reported Past Drug Use History: None Reported - Past Family History Mother History Unknown: Yes Family Medical History: Deep Vein Thrombosis (DVT) Additional Family Medical History / Comment(s): Mother is alive at age 67 with history of coronary artery disease and three-vessel CABG. Daughter(s) History Unknown: Yes Family Medical History: Deep Vein Thrombosis (DVT) Additional Family Medical History / Comment(s): Patient has a total of 9 children with no major medical problems. Father History Unknown: Yes Family Medical History: Cancer Additional Family Medical History / Comment(s): Father is alive with no history of coronary artery disease. History of Prostate Cancer Sister(s) History Unknown: Yes Additional Family Medical History / Comment(s): The patient has 4 sisters and 1 brother. One sister had a myocardial infraction at age 40. Medications and Allergies Home Medications Medication Instructions Recorded Confirmed Type metFORMIN HCL [Glucophage] 1,000 mg PO BID 01/19/22 10/01/24 History Metoprolol Succinate (ER) [Toprol 50 mg PO DAILY 03/01/24 10/01/24 History XL] Pantoprazole [Protonix] 40 mg PO DAILY 03/01/24 10/01/24 History Ferrous Sulfate [Iron (65 MG 325 mg PO BID 05/07/24 10/01/24 History Elemental)] Gabapentin [Neurontin] 300 mg PO BID 05/07/24 10/01/24 History Meenakshi Multivitamin Gummy 2 tab PO DAILY 05/07/24 10/01/24 History Isosorbide Mononitrate ER [Imdur] 30 mg PO DAILY 05/07/24 10/01/24 History Losartan [Cozaar] 25 mg PO HS 05/07/24 10/01/24 History amLODIPine [Norvasc] 2.5 mg PO DAILY 05/07/24 10/01/24 History hydroCHLOROthiazide 25 mg PO DAILY 05/07/24 10/01/24 History Aspirin 81 mg PO DAILY 09/05/24 10/01/24 History Atorvastatin [Lipitor] 80 mg PO HS 09/05/24 10/01/24 History Clopidogrel [Plavix] 75 mg PO DAILY 09/05/24 10/01/24 History Lubiprostone [Amitiza] 24 mcg PO TID 09/05/24 10/01/24 History tiZANidine [Zanaflex] 2 mg PO BID 09/05/24 10/01/24 History Dapagliflozin Propanediol [Farxiga] 10 mg PO DAILY #90 tab 09/12/24 10/01/24 Rx Ezetimibe [Zetia] 10 mg PO DAILY #90 tab 09/12/24 10/01/24 Rx HYDROcodone/APAP 10-325MG [Wellpinit 1 tab PO Q4-6H PRN #40 tab 09/12/24 10/01/24 Rx 10-325] Hydrocortisone [Cortef] 5 mg PO HS #60 tab 09/12/24 10/01/24 Rx Hydrocortisone [Cortef] 10 mg PO DAILY #60 tab 09/12/24 10/01/24 Rx tiZANidine [Zanaflex] 2 mg PO TID PRN #40 tab 09/12/24 10/01/24 Rx Nitroglycerin Sl Tabs [Nitrostat] 0.4 mg SUBLINGUAL Q5M PRN 09/14/24 10/01/24 History Sennosides-Docusate Sodium 2 tab PO DAILY 09/14/24 10/01/24 History [Senokot-S] Estradiol Cream [Estrace Cream 1 applic VAGINAL DAILY PRN #1 each 09/16/24 10/01/24 Rx 0.01%] Ibuprofen [Motrin] 800 mg PO TID PRN 10/01/24 10/01/24 History oxyCODONE HCL [OxyIR] 5 mg PO Q4H PRN 10/01/24 10/01/24 History Allergies Allergy/AdvReac Type Severity Reaction Status Date / Time peanut Allergy HIVES Verified 10/01/24 20:57 rice Allergy Rash/Hives Verified 10/01/24 20:57 seasonal Allergy Rash/Hives Uncoded 10/01/24 18:01 Physical Exam Vitals: Vital Signs Temp Pulse Resp BP Pulse Ox 10/01/24 19:30 82 20 146/83 97 10/01/24 19:00 80 15 170/79 97 10/01/24 17:55 98.3 F 92 16 142/77 97 Intake and Output 10/01/24 10/01/24 10/01/24 06:59 14:59 22:59 Other: Weight 77.564 kg Results CBC & Chem 7: 10/01/24 18:57 10/01/24 18:57 Labs: Abnormal Lab Results - Last 24 Hours (Table) 10/01/24 10/01/24 10/01/24 Range/Units 18:57 18:57 18:57 PT 9.9 L (10.0-12.5) sec APTT 20.9 L (22.0-30.0) sec Sodium 132 L (137-145) mmol/L Chloride 97 L (98-107) mmol/L Glucose 599 H* (74-99) mg/dL Alkaline Phosphatase 135 H (38-126) U/L Troponin I 0.043 H* (0.000-0.034) ng/mL Lipase 489 H (23-300) U/L
[2024-10-01 22:53] LABS: Glucose,Whole Blood 404 mg/dL (70-110)
[2024-10-01] MEDS ORDERED: DEXTROSE 50% SYRINGE 50 ML IVP PRN ×2 (23:12)
[2024-10-01] MEDS: INSULIN ASPART (NovoLOG) 100 UNIT/ML VIAL SQ ONE (23:16)
[2024-10-02] MEDS: tiZANidine 4 MG TAB PO PRN (01:54)
[2024-10-02 03:19] LABS: Magnesium 1.9 mg/dL (1.6-2.3); Potassium 3.5 mmol/L (3.5-5.1)
[2024-10-02 03:25] LABS: Glucose,Whole Blood 207 mg/dL (70-110)
[2024-10-02] MEDS: HEPARIN SODIUM 1,000 UN/ML (10ML VL) IV PRN (03:38)
[2024-10-02] MEDS: KETOROLAC 15 MG/ML 1 ML VIAL IVP PRN (06:21)
[2024-10-02 07:34] LABS: Prothrombin Time 10.7 sec (10.0-12.5)
[2024-10-02 07:53] LABS: ALT 18 U/L (4-34); AST 16 U/L (14-36); African American GFR (CKD) >90 (>60 ml/min/1.73 sqM); Albumin 3.2 g/dL (3.5-5.0); Alkaline Phosphatase 131 U/L (38-126); Anion Gap 7 mmol/L; Blood Urea Nitrogen 18 mg/dL (7-17); Calcium 9.1 mg/dL (8.4-10.2); Carbon Dioxide 28 mmol/L (22-30); Chloride 103 mmol/L (98-107); Glucose 197 mg/dL (74-99); Non-African American GFR(CKD) >90 (>60 ml/min/1.73 sqM); Potassium 3.8 mmol/L (3.5-5.1); Sodium 138 mmol/L (137-145); Total Bilirubin 0.3 mg/dL (0.2-1.3); Total Protein 5.6 g/dL (6.3-8.2)
[2024-10-02] MEDS ORDERED: ALPRAZolam 0.5 MG TAB PO PRN (08:58)
[2024-10-02] MEDS ORDERED: ALPRAZolam 0.25 MG TAB PO PRN (08:58)
[2024-10-02] MEDS: GABAPENTIN 300 MG CAP PO SCH (09:10)
[2024-10-02] MEDS: PANTOPRAZOLE 40 MG TABLET PO SCH (09:10)
[2024-10-02] MEDS: ASPIRIN 81 MG PO SCH (09:10)
[2024-10-02] MEDS: ISOSORBIDE MONONITRATE ER 30 MG TAB.ER.24H PO SCH (09:10)
[2024-10-02] MEDS: tiZANidine 4 MG TAB PO SCH (09:10)
[2024-10-02] MEDS: CLOPIDOGREL 75 MG TAB PO SCH (09:10)
[2024-10-02] MEDS: amLODIPine 2.5 MG TAB PO SCH (09:10)
[2024-10-02] MEDS: METOPROLOL SUCCINATE (ER) 50 MG TAB.ER.24H PO SCH (09:10)
[2024-10-02] MEDS: EZETIMIBE 10 MG TAB PO SCH (09:10)
[2024-10-02] MEDS: hydroCHLOROthiazide 25 MG TAB PO SCH (09:10)
[2024-10-02] MEDS: INSULIN ASPART (NovoLOG) 100 UNIT/ML VIAL SQ SCH ×2 (09:21→12:16)
[2024-10-02 09:32] LABS: Basophils % (A) 0 %; Eosinophils # (A) 0.1 k/uL (0-0.7); Eosinophils % (A) 1 %; HCT 34.8 % (34.0-46.0); HGB 11.9 gm/dL (11.4-16.0); Lymphocytes # (A) 3.9 k/uL (1.0-4.8); Lymphocytes % (A) 38 %; MCH 29.8 pg (25.0-35.0); MCHC 34.2 g/dL (31.0-37.0); MCV 87.2 fL (80.0-100.0); Mean Platelet Volume 7.7; Monocytes # (A) 0.4 k/uL (0-1.0); Monocytes % (A) 4 %; Neutrophils # (A) 5.8 k/uL (1.3-7.7); Neutrophils % (A) 56 %; Platelet Count 274 k/uL (150-450); RBC 3.99 m/uL (3.80-5.40); RDW 13.8 % (11.5-15.5); WBC 10.3 k/uL (3.8-10.6)
[2024-10-02 10:50] LABS: Chol/HDL Ratio 3.28 Ratio; LDL Cholesterol,Calculated 99.3 mg/dL (0.0-131.0); VLDL Calculation 19.54 mg/dL (5.00-40.00)
[2024-10-02 11:33] LABS: Glucose,Whole Blood 373 mg/dL (70-110)
--- NOTE | 2024-10-02 12:01 | P.PN ---
Subjective Progress Note Date: 10/02/24 Hospital course Patient is a 53-year-old female with past medical history of asthma, coronary artery disease (with 3 stents, estimated left ventricular ejection fraction at 55 to 60% per echocardiogram performed on 09/15/2024), COPD, diabetes, hyperlipidemia, history of myocardial infarction (most recent March 2022), musculoskeletal disorder, rheumatoid arthritis, and thyroid disease presented to the emergency department with chest pain that has been going on for the past several weeks. Patient stated that chest tightness ongoing since neck surgery in August. Patient reports that the chest tightness sensation gets worse with eating and moving. However the chest pain got worse last night which prompted the patient to come to the emergency department. Subjective Patient was seen this morning. She states that she still having chest tightness. Patient also complaining of pain after eating food. Patient states that she has history of gastritis and also constipation. She states that she has to push her abdomen so that she can have a bowel movement. She states that has been at least 2 days since she had a bowel movement. Assessment and plan Non-ST elevation MD Troponin trend is 0.043 to 0.058 to 0.071 Patient currently on heparin drip Per nurse patient was seen by cardiology and plan is for heart cath tomorrow Continue with aspirin 81 mg p.o. daily, atorvastatin 80 mg p.o. daily, Imdur, losartan 25 mg at bedtime Check echocardiogram Diabetes mellitus uncontrolled This morning blood glucose is 373. Controlled this morning Hemoglobin A1c last month on 09/06/2024 was 9.7 Patient at home takes Farxiga 10 mg p.o. daily and metformin 1000 mg p.o. twice daily. May need to start the patient on another hypoglycemic Continue sliding scale insulin and will add an additional 5 units before each meal I will also start the patient on Levemir 10 units twice daily Constipation could be opioid induced as patient is on oxycodone at home I will start the patient on MiraLAX twice daily GERD Continue Protonix 40 mg p.o. daily Hyperlipidemia Continue atorvastatin 80 mg p.o. daily Rheumatoid arthritis Continue with hydrocortisone 5 mg at bedtime and 10 mg daily Continue with oxycodone 5 mg p.o. every 4 hours as needed and tizanidine 2 mg p.o. 3 times daily as needed, gabapentin 3 mg p.o. twice daily Hypertension Continue with amlodipine 2.5 mg p.o. daily. Continue with losartan. Continue with hydrochlorothiazide 25 mL p.o. daily. DVT ppx: heparing ggt. Objective - Vital Signs Vital signs: Vital Signs Temp 98.3 F 10/02/24 08:50 Pulse 70 10/02/24 08:50 Resp 18 10/02/24 08:50 BP 119/74 10/02/24 08:50 Pulse Ox 97 10/02/24 08:50 FiO2 Intake & Output 10/01/24 10/02/24 10/02/24 18:59 06:59 18:59 Intake Total 65.466 540 Balance 65.466 540 Weight 77.564 kg Intake: Intake, IV Titration 65.466 Amount Heparin Sod,Pork in 0.45% 65.466 NaCl 25,000 unit In 0.45 % NaCl 1 250ml.bag @ 12 UNITS/KG/HR 9.308 mls/hr IV .Q24H [facility] Rx#: [id number] Oral 540 - Labs CBC & Chem 7: 10/02/24 09:10 10/02/24 09:34 Labs: Abnormal Lab Results - Last 24 Hours (Table) 10/01/24 10/01/24 10/01/24 Range/Units 18:57 18:57 18:57 PT 9.9 L (10.0-12.5) sec APTT 20.9 L (22.0-30.0) sec D-Dimer (<0.60) mg/L FEU Sodium 132 L (137-145) mmol/L Chloride 97 L (98-107) mmol/L BUN (7-17) mg/dL Glucose 599 H* (74-99) mg/dL POC Glucose (mg/dL) (70-110) mg/dL Alkaline Phosphatase 135 H (38-126) U/L Troponin I 0.043 H* (0.000-0.034) ng/mL Total Protein (6.3-8.2) g/dL Albumin (3.5-5.0) g/dL Lipase 489 H (23-300) U/L Ur Specific Reed[place] (1.001-1.035) Urine Glucose (UA) (Negative) 10/01/24 10/01/24 10/01/24 Range/Units 20:54 21:45 22:51 PT (10.0-12.5) sec APTT (22.0-30.0) sec D-Dimer (<0.60) mg/L FEU Sodium (137-145) mmol/L Chloride (98-107) mmol/L BUN (7-17) mg/dL Glucose (74-99) mg/dL POC Glucose (mg/dL) 404 H (70-110) mg/dL Alkaline Phosphatase (38-126) U/L Troponin I 0.058 H* (0.000-0.034) ng/mL Total Protein (6.3-8.2) g/dL Albumin (3.5-5.0) g/dL Lipase (23-300) U/L Ur Specific Reed[place] 1.036 H (1.001-1.035) Urine Glucose (UA) 4+ H (Negative) 10/02/24 10/02/24 10/02/24 Range/Units 00:25 02:40 02:40 PT (10.0-12.5) sec APTT 31.8 H (22.0-30.0) sec D-Dimer 0.77 H (<0.60) mg/L FEU Sodium (137-145) mmol/L Chloride (98-107) mmol/L BUN (7-17) mg/dL Glucose (74-99) mg/dL POC Glucose (mg/dL) (70-110) mg/dL Alkaline Phosphatase (38-126) U/L Troponin I 0.071 H* (0.000-0.034) ng/mL Total Protein (6.3-8.2) g/dL Albumin (3.5-5.0) g/dL Lipase (23-300) U/L Ur Specific Reed[place] (1.001-1.035) Urine Glucose (UA) (Negative) 10/02/24 10/02/24 10/02/24 Range/Units 03:23 09:10 09:34 PT (10.0-12.5) sec APTT 48.9 H (22.0-30.0) sec D-Dimer (<0.60) mg/L FEU Sodium (137-145) mmol/L Chloride (98-107) mmol/L BUN 18 H (7-17) mg/dL Glucose 197 H (74-99) mg/dL POC Glucose (mg/dL) 207 H (70-110) mg/dL Alkaline Phosphatase 131 H (38-126) U/L Troponin I (0.000-0.034) ng/mL Total Protein 5.6 L (6.3-8.2) g/dL Albumin 3.2 L (3.5-5.0) g/dL Lipase (23-300) U/L Ur Specific Reed[place] (1.001-1.035) Urine Glucose (UA) (Negative) 10/02/24 Range/Units 11:32 PT (10.0-12.5) sec APTT (22.0-30.0) sec D-Dimer (<0.60) mg/L FEU Sodium (137-145) mmol/L Chloride (98-107) mmol/L BUN (7-17) mg/dL Glucose (74-99) mg/dL POC Glucose (mg/dL) 373 H (70-110) mg/dL Alkaline Phosphatase (38-126) U/L Troponin I (0.000-0.034) ng/mL Total Protein (6.3-8.2) g/dL Albumin (3.5-5.0) g/dL Lipase (23-300) U/L Ur Specific Reed[place] (1.001-1.035) Urine Glucose (UA) (Negative)
--- NOTE | 2024-10-02 12:04 | P.CRDCN ---
History of Present Illness History of present illness: HISTORY OF PRESENT ILLNESS: This is a 53-year-old female with a past medical history significant for coronary artery disease with previous CABG in 12/2023, diabetes, GERD, rheumatoid arthritis, COPD, and cervical radiculopathy. Patient follows in the office with Dr. Ojeda. We have been asked to see the patient in consultation for elevated troponins. Patient examined at the bedside. Patient states she has been having chest discomfort over the past couple days. She describes it as an elephant sitting on her chest. She states that she is unable to walk up a flight of stairs because she gets chest tightness and cannot breathe. Patient was found to have elevated troponins and was started on IV heparin. DIAGNOSTICS: - EKG reveals sinus mechanism with LVH - Chest xray negative for acute process - Laboratory data: WBC 10.3. Hemoglobin 11.9. Platelet count 274. Sodium 138. Potassium 3.8. BUN 18. Creatinine 0.63. Troponin 0.043. 0.058. 0.071. - Current home cardiac medications include Lipitor 80 mg at night, aspirin 81 mg daily, Plavix 75 mg daily, Farxiga 10 mg daily, Zetia 10 mg daily, Imdur 30 mg daily, losartan 25 mg at night, metoprolol succinate 50 mg daily, amlodipine 2.5 mg daily, hydrochlorothiazide 25 mg daily - Most recent echocardiogram obtained in 04/2024 revealed ejection fraction 60%, trace MR, mild TR - Limited echo in August 2024 revealed ejection fraction 55 to 60% - Cardiac catheterization history: November 2023 revealing severe disease of ostial and proximal left main, severe disease of ostial LAD, and severe disease of proximal RCA REVIEW OF SYSTEMS: At the time of my exam: CONSTITUTIONAL: Denies fever or chills. HEENT: Denies blurred vision, vision changes, or eye pain. Denies hemoptysis CARDIOVASCULAR: Denies chest pain. Denies orthopnea. Denies PND. Denies palpitations RESPIRATORY: Denies shortness of breath. GASTROINTESTINAL: Denies abdominal pain. Denies nausea or vomiting. HEMATOLOGIC: Denies bleeding disorders. GENITOURINARY: Denies any blood in urine. SKIN: Denies pruitis. Denies rash. PHYSICAL EXAM: VITAL SIGNS: Reviewed. GENERAL: Well-developed in no acute distress. HEENT: Head is normocephalic. Pupils are equal, round. Sclerae anicteric. Mucous membranes of the mouth are moist. Neck supple. No JVD or thyromegaly LUNGS: Respirations even and unlabored. Lungs essentially clear to auscultation bilaterally. HEART: Regular rate and rhythm. S1 and S2 heard. ABDOMEN: Soft. Nondistended. Nontender. EXTREMITIES: Normal range of motion. No clubbing or cyanosis. Peripheral pulses intact. No lower extremity edema NEUROLOGIC: Awake and alert. Oriented x 3. ASSESSMENT: Non-STEMI Status post cervical fusion on 09/10/2024 Coronary artery disease with previous CABG, 12/2023 Hypertension Hyperlipidemia Diabetes GERD History of rheumatoid arthritis COPD PLAN: No need to repeat echocardiogram as this was obtained last month Continue IV heparin Resume home cardiac medications N.p.o. at midnight Patient to undergo cardiac catheterization tomorrow with Dr. Ojeda Further recommendations pending patient course Nurse practitioner note has been reviewed by physician. Signing provider agrees with the documented findings, assessment, and plan of care documented by [employer] as a scribe. Past Medical History Past Medical History: Asthma, Coronary Artery Disease (CAD), COPD, Diabetes Mellitus, Hyperlipidemia, Hypertension, Myocardial Infarction (SD), Musculoskeletal Disorder, Rheumatoid Arthritis (RA), Thyroid Disorder Additional Past Medical History / Comment(s): Back Pain, right shoulder pain, Hx Pituitary Tumor, BENIGN. Thyroid disorder. 3 heart attacks-most recent March 2022, 3 stents total, neuropathy; left-sided pleural effusion Last Myocardial Infarction Date:: 10/29/22 History of Any Multi-Drug Resistant Organisms: None Reported Past Surgical History: Section, Coronary Bypass/CABG, Heart Catheterization With Stent, Tubal Ligation Additional Past Surgical History / Comment(s): Pituitary Tumor Removed. colonoscopy, [facility] PROCEDURES stents x3 c section x4; three-vessel off- pump CABG January 04, 2024; left-sided thoracentesis with removal of 950 mL fluid on January 22, 2024 Past Anesthesia/Blood Transfusion Reactions: No Reported Reaction Date of Last Stent Placement:: March 2022 Past Psychological History: Anxiety, Depression Smoking Status: Former smoker Past Alcohol Use History: None Reported Past Drug Use History: None Reported - Past Family History Mother History Unknown: Yes Family Medical History: Deep Vein Thrombosis (DVT) Additional Family Medical History / Comment(s): Mother is alive at age 67 with history of coronary artery disease and three-vessel CABG. Daughter(s) History Unknown: Yes Family Medical History: Deep Vein Thrombosis (DVT) Additional Family Medical History / Comment(s): Patient has a total of 9 children with no major medical problems. Father History Unknown: Yes Family Medical History: Cancer Additional Family Medical History / Comment(s): Father is alive with no history of coronary artery disease. History of Prostate Cancer Sister(s) History Unknown: Yes Additional Family Medical History / Comment(s): The patient has 4 sisters and 1 brother. One sister had a myocardial infraction at age 40. Medications and Allergies Home Medications Medication Instructions Recorded Confirmed Type metFORMIN HCL [Glucophage] 1,000 mg PO BID 01/19/22 10/01/24 History Metoprolol Succinate (ER) [Toprol 50 mg PO DAILY 03/01/24 10/01/24 History XL] Pantoprazole [Protonix] 40 mg PO DAILY 03/01/24 10/01/24 History Ferrous Sulfate [Iron (65 MG 325 mg PO BID 05/07/24 10/01/24 History Elemental)] Gabapentin [Neurontin] 300 mg PO BID 05/07/24 10/01/24 History Meenakshi Multivitamin Gummy 2 tab PO DAILY 05/07/24 10/01/24 History Isosorbide Mononitrate ER [Imdur] 30 mg PO DAILY 05/07/24 10/01/24 History Losartan [Cozaar] 25 mg PO HS 05/07/24 10/01/24 History amLODIPine [Norvasc] 2.5 mg PO DAILY 05/07/24 10/01/24 History hydroCHLOROthiazide 25 mg PO DAILY 05/07/24 10/01/24 History Aspirin 81 mg PO DAILY 09/05/24 10/01/24 History Atorvastatin [Lipitor] 80 mg PO HS 09/05/24 10/01/24 History Clopidogrel [Plavix] 75 mg PO DAILY 09/05/24 10/01/24 History Lubiprostone [Amitiza] 24 mcg PO TID 09/05/24 10/01/24 History tiZANidine [Zanaflex] 2 mg PO BID 09/05/24 10/01/24 History Dapagliflozin Propanediol [Farxiga] 10 mg PO DAILY #90 tab 09/12/24 10/01/24 Rx Ezetimibe [Zetia] 10 mg PO DAILY #90 tab 09/12/24 10/01/24 Rx HYDROcodone/APAP 10-325MG [Mulberry 1 tab PO Q4-6H PRN #40 tab 09/12/24 10/01/24 Rx 10-325] Hydrocortisone [Cortef] 5 mg PO HS #60 tab 09/12/24 10/01/24 Rx Hydrocortisone [Cortef] 10 mg PO DAILY #60 tab 09/12/24 10/01/24 Rx tiZANidine [Zanaflex] 2 mg PO TID PRN #40 tab 09/12/24 10/01/24 Rx Nitroglycerin Sl Tabs [Nitrostat] 0.4 mg SUBLINGUAL Q5M PRN 09/14/24 10/01/24 History Sennosides-Docusate Sodium 2 tab PO DAILY 09/14/24 10/01/24 History [Senokot-S] Estradiol Cream [Estrace Cream 1 applic VAGINAL DAILY PRN #1 each 09/16/24 10/01/24 Rx 0.01%] Ibuprofen [Motrin] 800 mg PO TID PRN 10/01/24 10/01/24 History oxyCODONE HCL [OxyIR] 5 mg PO Q4H PRN 10/01/24 10/01/24 History Allergies Allergy/AdvReac Type Severity Reaction Status Date / Time peanut Allergy HIVES Verified 10/01/24 20:57 rice Allergy Rash/Hives Verified 10/01/24 20:57 seasonal Allergy Rash/Hives Uncoded 10/01/24 18:01 Physical Exam Vitals: Vital Signs Temp Pulse Pulse Resp BP BP Pulse Ox 10/02/24 08:50 98.3 F 70 18 119/74 97 10/02/24 07:31 98 F 71 18 130/77 100 10/02/24 05:48 67 18 131/73 98 10/02/24 03:26 75 16 118/73 98 10/02/24 00:41 91 20 117/58 95 10/01/24 23:32 88 13 119/62 98 10/01/24 21:00 85 18 119/74 96 10/01/24 20:30 89 19 124/67 98 10/01/24 20:00 90 21 142/96 98 10/01/24 19:30 82 20 146/83 97 10/01/24 19:00 80 15 170/79 97 10/01/24 17:55 98.3 F 92 16 142/77 97 Intake and Output 10/01/24 10/02/24 10/02/24 22:59 06:59 14:59 Intake Total 65.466 540 Balance 65.466 540 Intake: Intake, IV Titration 65.466 Amount Heparin Sod,Pork in 0.45% 65.466 NaCl 25,000 unit In 0.45 % NaCl 1 250ml.bag @ 12 UNITS/KG/HR 9.308 mls/hr IV .Q24H [facility] Rx#: [id number] Oral 540 Other: Weight 77.564 kg Results 10/02/24 09:10 10/02/24 09:34 Cardiac Enzymes 10/01/24 10/01/24 10/01/24 Range/Units 18:57 18:57 21:45 AST 19 (14-36) U/L Troponin I 0.043 H* 0.058 H* (0.000-0.034) ng/mL 10/02/24 10/02/24 Range/Units 02:40 09:34 AST 16 (14-36) U/L Troponin I 0.071 H* (0.000-0.034) ng/mL Coagulation 10/01/24 10/02/24 10/02/24 Range/Units 18:57 02:40 06:08 PT 9.9 L 10.7 (10.0-12.5) sec APTT 20.9 L 31.8 H (22.0-30.0) sec 10/02/24 Range/Units 09:10 PT (10.0-12.5) sec APTT 48.9 H (22.0-30.0) sec Lipids 10/02/24 Range/Units 09:34 Triglycerides 97.70 (0.00-149.00) mg/dL Cholesterol 171.00 (0.00-200.00) mg/dL HDL Cholesterol 52.20 (40.00-60.00) mg/dL Cholesterol/HDL Ratio 3.28 Ratio CBC 10/01/24 10/02/24 Range/Units 18:57 09:10 WBC 9.4 10.3 (3.8-10.6) k/uL RBC 4.12 3.99 (3.80-5.40) m/uL Hgb 12.3 11.9 (11.4-16.0) gm/dL Hct 36.6 34.8 (34.0-46.0) % Plt Count 326 274 (150-450) k/uL Comprehensive Metabolic Panel 10/01/24 10/02/24 10/02/24 Range/Units 18:57 02:40 09:34 Sodium 132 L 138 (137-145) mmol/L Potassium 3.5 3.5 3.8 (3.5-5.1) mmol/L Chloride 97 L 103 (98-107) mmol/L Carbon Dioxide 27 28 (22-30) mmol/L BUN 16 18 H (7-17) mg/dL Creatinine 0.72 0.63 (0.52-1.04) mg/dL Glucose 599 H* 197 H (74-99) mg/dL Calcium 9.5 9.1 (8.4-10.2) mg/dL AST 19 16 (14-36) U/L ALT 22 18 (4-34) U/L Alkaline Phosphatase 135 H 131 H (38-126) U/L Total Protein 6.4 5.6 L (6.3-8.2) g/dL Albumin 3.8 3.2 L (3.5-5.0) g/dL Current Medications Generic Name Dose Route Start Last Admin Trade Name Freq PRN Reason Stop Dose Admin Alprazolam 0.25 mg 10/02/24 08:58 Alprazolam 0.25 Mg Tab PO Q6HR PRN Mild Anxiety Alprazolam 0.5 mg 10/02/24 08:58 Alprazolam 0.5 Mg Tab PO Q6HR PRN Moderate Anxiety Amlodipine Besylate 2.5 mg 10/02/24 09:00 10/02/24 09:10 Amlodipine 2.5 Mg Tab PO 2.5 mg DAILY [facility] Administration Aspirin 81 mg 10/02/24 09:00 10/02/24 09:10 Aspirin 81 Mg PO 81 mg DAILY TIERA Administration Aspirin 325 mg 10/03/24 07:00 Aspirin 325 Mg Tab PO 10/03/24 07:01 ONCE ONE Atorvastatin Calcium 80 mg 10/02/24 21:00 Atorvastatin 80 Mg Tab PO [facility] Atorvastatin Calcium 80 mg 10/03/24 07:00 Atorvastatin 80 Mg Tab PO 10/03/24 07:01 ONCE ONE Clopidogrel Bisulfate 75 mg 10/02/24 09:00 10/02/24 09:10 Clopidogrel 75 Mg Tab PO 75 mg DAILY TIERA Administration Dextrose/Water 25 ml 10/01/24 23:12 Dextrose 50% Syringe 50 Ml IVP PER PROTOCOL PRN Hypoglycemia Protocol Dextrose/Water 50 ml 10/01/24 23:12 Dextrose 50% Syringe 50 Ml IVP PER PROTOCOL PRN Hypoglycemia Protocol Ezetimibe 10 mg 10/02/24 09:00 10/02/24 09:10 Ezetimibe 10 Mg Tab PO 10 mg DAILY TIERA Administration Gabapentin 300 mg 10/02/24 09:00 10/02/24 09:10 Gabapentin 300 Mg Cap PO 300 mg BID TIERA Administration Heparin Sodium (Porcine) 0 unit 10/01/24 20:06 10/02/24 03:38 Heparin Sodium 1,000 Un/Ml (10ml Vl) IV 1,939 unit PER PROTOCOL PRN Administration Low PTT Protocol Hydrochlorothiazide 25 mg 10/02/24 09:00 10/02/24 09:10 Hydrochlorothiazide 25 Mg Tab PO 25 mg DAILY TIERA Administration Hydrocortisone 5 mg 10/02/24 21:00 Hydrocortisone 10 Mg Tab PO HS TIERA Hydrocortisone 10 mg 10/02/24 09:00 Hydrocortisone 10 Mg Tab PO DAILY TIERA Heparin Sodium/Sodium Chloride 250 mls @ 9.308 mls/hr 10/01/24 20:15 10/02/24 03:34 25,000 unit/ Sodium Chloride IV 14 units/kg/hr .Q24H TIERA 10.859 mls/hr Titration Protocol 12 UNITS/KG/HR Heparin Sodium (Porcine) 10, 1,001 mls @ 999 mls/hr 10/03/24 07:00 000 unit/ Sodium Chloride IRRIGATION 10/03/24 23:00 ONCE PRN INTRA-OP Heparin Sodium (Porcine) 2,500 250.5 mls @ 250 mls/hr 10/03/24 07:00 unit/ Sodium Chloride IRRIGATION 10/03/24 23:00 ONCE PRN INTRA-OP Sodium Chloride 1,000 ml/ IV 1,000 mls @ 77.564 mls/hr 10/02/24 10:00 Solution IV .[id number] TIERA 1 ML/KG/HR Insulin Aspart 0 unit 10/02/24 07:30 10/02/24 09:21 Insulin Aspart (Novolog) 100 Unit/Ml Vial SQ Not Given ACHS [facility] Protocol Insulin Aspart 5 unit 10/02/24 12:30 Insulin Aspart (Novolog) 100 Unit/Ml Vial SQ AC-TID [facility] Insulin Detemir 10 unit 10/02/24 12:15 Insulin Detemir (Levemir) 100 Unit/Ml Syr SQ BID@0700,2100 [facility] Isosorbide Mononitrate 30 mg 10/02/24 09:00 10/02/24 09:10 Isosorbide Mononitrate Er 30 Mg Tab.Er.24h PO 30 mg DAILY TIERA Administration Ketorolac Tromethamine 15 mg 10/01/24 20:23 10/02/24 06:21 Ketorolac 15 Mg/Ml 1 Ml Vial IVP 10/04/24 20:24 15 mg Q6HR PRN Administration Moderate Pain (Scale 4 to 6) Losartan Potassium 25 mg 10/02/24 21:00 Losartan 25 Mg Tab PO HS [facility] Metoprolol Succinate 50 mg 10/02/24 09:00 10/02/24 09:10 Metoprolol Succinate (Er) 50 Mg Tab.Er.24h PO 50 mg DAILY [facility] Administration Morphine Sulfate 4 mg 10/01/24 20:23 Morphine Sulfate 4 Mg/Ml Syringe IV Q4HR PRN Severe Pain (Scale 7 to 10) Naloxone HCl 0.2 mg 10/01/24 20:23 Naloxone 0.4 Mg/Ml 1 Ml Vial IV Q2M PRN Opioid Reversal Nitroglycerin 0.4 mg 10/02/24 08:58 Nitroglycerin Sl Tabs 0.4 Mg Tab SUBLINGUAL Q5M PRN Chest Pain Ondansetron HCl 4 mg 10/01/24 20:23 Ondansetron 4 Mg/2 Ml Vial IVP Q8HR PRN Nausea And Vomiting Oxycodone HCl 5 mg 10/01/24 23:07 10/02/24 09:10 Oxycodone Hcl 5 Mg Tab PO 5 mg Q4H PRN Administration Pain Pantoprazole Sodium 40 mg 10/02/24 07:30 10/02/24 09:10 Pantoprazole 40 Mg Tablet PO 40 mg DAILY@0730 [facility] Administration Polyethylene Glycol 17 gm 10/02/24 12:00 Polyethylene Glycol 3350 17 Gm Powd.Pack PO BID [facility] Tizanidine HCl 2 mg 10/02/24 09:00 10/02/24 09:10 Tizanidine 4 Mg Tab PO 2 mg BID TIERA Administration Tizanidine HCl 2 mg 10/01/24 22:55 10/02/24 01:54 Tizanidine 4 Mg Tab PO 2 mg TID PRN Administration Muscle Spasm Intake and Output 10/01/24 10/02/24 10/02/24 22:59 06:59 14:59 Intake Total 65.466 540 Balance 65.466 540 Intake: Intake, IV Titration 65.466 Amount Heparin Sod,Pork in 0.45% 65.466 NaCl 25,000 unit In 0.45 % NaCl 1 250ml.bag @ 12 UNITS/KG/HR 9.308 mls/hr IV .Q24H [facility] Rx#: [id number] Oral 540 Other: Weight 77.564 kg 10/02/24 09:10 10/02/24 09:34
[2024-10-02] MEDS: HYDROCORTISONE 10 MG TAB PO SCH ×2 (12:16→21:04)
[2024-10-02] MEDS: polyethylene glycoL 3350 17 GM POWD.PACK PO SCH (12:16)
[2024-10-02] MEDS: SODIUM CHLORIDE 0.9% 1,000 ML in EMPTY BAG 1 BAG IV SCH (12:17)
[2024-10-02] MEDS: INSULIN DETEMIR (LEVEMIR) 100 UNIT/ML SYR SQ SCH (12:34)
[2024-10-02 16:26] LABS: Glucose,Whole Blood 184 mg/dL (70-110)
[2024-10-02 19:59] LABS: Glucose,Whole Blood 237 mg/dL (70-110)
[2024-10-02] MEDS: NON FORMULARY DRUG (Lubiprostone [Amitiza] 24 MCG Capsule) PO SCH (20:56)
[2024-10-02] MEDS: LOSARTAN 25 MG TAB PO SCH (20:58)
[2024-10-02] MEDS: ATORVASTATIN 80 MG TAB PO ONE (20:58)
[2024-10-02] MEDS: ATORVASTATIN 80 MG TAB PO SCH (21:00)
[2024-10-02] MEDS ORDERED: NON FORMULARY DRUG (Lubiprostone [Amitiza] 24 MCG Capsule) PO SCH (22:00)
[2024-10-03 06:09] LABS: Glucose,Whole Blood 216 mg/dL (70-110)
[2024-10-03] MEDS: ASPIRIN 325 MG TAB PO ONE (06:20)
[2024-10-03] MEDS ORDERED: HEPARIN SODIUM,PORCINE 10,000 UNIT in SODIUM CHLORIDE 0.9% 1,000 ML IRRIGATION PRN (07:00)
[2024-10-03] MEDS ORDERED: HEPARIN SODIUM,PORCINE (1 ML) 2,500 UNIT in SODIUM CHLORIDE 0.9% 250 ML IRRIGATION PRN (07:00)
[2024-10-03] MEDS: SODIUM CHLORIDE 0.9% 1,000 ML IV ONE (07:26)
[2024-10-03 07:33] LABS: Basophils % (A) 0 %; Eosinophils # (A) 0.1 k/uL (0-0.7); Eosinophils % (A) 1 %; HCT 38.7 % (34.0-46.0); HGB 12.7 gm/dL (11.4-16.0); Lymphocytes # (A) 4.1 k/uL (1.0-4.8); Lymphocytes % (A) 41 %; MCH 29.6 pg (25.0-35.0); MCHC 32.8 g/dL (31.0-37.0); MCV 90.1 fL (80.0-100.0); Mean Platelet Volume 7.1; Monocytes # (A) 0.4 k/uL (0-1.0); Monocytes % (A) 4 %; Neutrophils # (A) 5.4 k/uL (1.3-7.7); Neutrophils % (A) 53 %; Platelet Count 313 k/uL (150-450); RBC 4.29 m/uL (3.80-5.40); RDW 13.6 % (11.5-15.5); WBC 10.1 k/uL (3.8-10.6)
[2024-10-03] MEDS: HEPARIN SODIUM,PORCINE (1 ML) 2,500 UNIT in SODIUM CHLORIDE 0.9% 250 ML IRRIGATION ONE (07:47)
[2024-10-03] MEDS: HEPARIN SODIUM,PORCINE 10,000 UNIT in SODIUM CHLORIDE 0.9% 1,000 ML IRRIGATION ONE (07:47)
[2024-10-03] MEDS: MIDAZOLAM 2 MG/2 ML VIAL IVP ONE ×2 (08:03→09:09)
[2024-10-03] MEDS: LIDOCAINE 1% INJ 10MG/ML (20 ML MDV) SQ ONE (08:05)
[2024-10-03 08:11] LABS: African American GFR (CKD) >90 (>60 ml/min/1.73 sqM); Anion Gap 3 mmol/L; Blood Urea Nitrogen 18 mg/dL (7-17); Calcium 9.5 mg/dL (8.4-10.2); Carbon Dioxide 25 mmol/L (22-30); Chloride 108 mmol/L (98-107); Glucose 191 mg/dL (74-99); Non-African American GFR(CKD) >90 (>60 ml/min/1.73 sqM); Sodium 136 mmol/L (137-145)
[2024-10-03] MEDS: HYDROmorphone 0.5 MG/0.5 ML SYRINGE IVP ONE (08:13)
[2024-10-03] MEDS: HEPARIN SODIUM 1,000 UN/ML (10ML VL) IVP ONE ×2 (08:54→09:07)
[2024-10-03] MEDS: IOPAMIDOL-370 100ML BTL INJ ONE ×3 (08:54→09:24)
[2024-10-03] MEDS: SODIUM CHLORIDE 0.9% 1,000 ML IV SCH (10:00)
[2024-10-03 11:28] LABS: Glucose,Whole Blood 217 mg/dL (70-110)
[2024-10-03 11:52] VITALS: BMI 38.6
[2024-10-03] MEDS: METOPROLOL SUCCINATE (ER) 50 MG TAB.ER.24H PO SCH (11:56)
--- NOTE | 2024-10-03 12:32 | P.PN ---
Subjective Progress Note Date: 10/03/24 Hospital course Patient is a 53-year-old female with past medical history of asthma, coronary artery disease (with 3 stents, estimated left ventricular ejection fraction at 55 to 60% per echocardiogram performed on 09/15/2024), COPD, diabetes, hyperlipidemia, history of myocardial infarction (most recent March 2022), musculoskeletal disorder, rheumatoid arthritis, and thyroid disease presented to the emergency department with chest pain that has been going on for the past several weeks. Patient stated that chest tightness ongoing since neck surgery in August. Patient reports that the chest tightness sensation gets worse with eating and moving. However the chest pain got worse last night which prompted the patient to come to the emergency department. Subjective Patient seen this morning. She had a heart cath done this morning. Heart catheter report is pending at this time. Patient states that yesterday she had a bowel movement and after the bowel movement her abdominal pain did improve. Assessment and plan Non-ST elevation [place] Troponin trend is 0.043 to 0.058 to 0.071 Patient currently on heparin drip Per nurse patient was seen by cardiology and plan is for heart cath tomorrow Continue with aspirin 81 mg p.o. daily, atorvastatin 80 mg p.o. daily, Imdur, losartan 25 mg at bedtime Check echocardiogram Diabetes mellitus uncontrolled This morning blood glucose is acceptable Hemoglobin A1c last month on 09/06/2024 was 9.7 Patient at home takes Farxiga 10 mg p.o. daily and metformin 1000 mg p.o. twice daily. Continue sliding scale insulin and 5 units before each meal Continue with Levemir 10 units twice daily I discussed with the patient about starting Levemir on discharge. Patient admits that she has been noncompliant with her medications. She wants to see how she does first with medication compliance and also compliance with her diet. At this time she does not want to start any new diabetic medications. Constipation could be opioid induced as patient is on oxycodone at home Continue with MiraLAX twice daily GERD Continue Protonix 40 mg p.o. daily Hyperlipidemia Continue atorvastatin 80 mg p.o. daily Rheumatoid arthritis Continue with hydrocortisone 5 mg at bedtime and 10 mg daily Continue with oxycodone 5 mg p.o. every 4 hours as needed and tizanidine 2 mg p.o. 3 times daily as needed, gabapentin 3 mg p.o. twice daily Hypertension Continue with amlodipine 2.5 mg p.o. daily. Continue with losartan. Continue with hydrochlorothiazide 25 mL p.o. daily. DVT ppx: heparing ggt. Objective - Vital Signs Vital signs: Vital Signs Temp 98.3 F 10/03/24 10:00 Pulse 63 10/03/24 11:00 Resp 18 10/03/24 11:00 BP 112/65 10/03/24 11:00 Pulse Ox 100 10/03/24 11:00 FiO2 Intake & Output 10/02/24 10/03/24 10/03/24 18:59 06:59 18:59 Intake Total 1302 664.534 275 Output Total 600 Balance 702 664.534 275 Weight 77.564 kg 81 kg 81 kg Intake: IV 275 Intake, IV Titration 184.534 Amount Heparin Sod,Pork in 0.45% 184.534 NaCl 25,000 unit In 0.45 % NaCl 1 250ml.bag @ 12 UNITS/KG/HR 9.308 mls/hr IV .Q24H [facility] Rx#: [id number] Oral 1302 480 Output: Urine 600 Other: Voiding Method Bedside Commode # Voids 1 1 # Bowel Movements 1 - Labs CBC & Chem 7: 10/03/24 06:22 10/03/24 06:22 Labs: Abnormal Lab Results - Last 24 Hours (Table) 10/02/24 10/02/24 10/02/24 Range/Units 09:10 16:21 19:58 Sodium (137-145) mmol/L Chloride (98-107) mmol/L BUN (7-17) mg/dL Glucose (74-99) mg/dL POC Glucose (mg/dL) 184 H 237 H (70-110) mg/dL Hemoglobin A1c 10.4 H (<=6.0) % 10/03/24 10/03/24 10/03/24 Range/Units 06:08 06:22 11:26 Sodium 136 L (137-145) mmol/L Chloride 108 H (98-107) mmol/L BUN 18 H (7-17) mg/dL Glucose 191 H (74-99) mg/dL POC Glucose (mg/dL) 216 H 217 H (70-110) mg/dL Hemoglobin A1c (<=6.0) %
[2024-10-03 16:31] LABS: Glucose,Whole Blood 466 mg/dL (70-110)
[2024-10-03 20:05] LABS: Glucose,Whole Blood 223 mg/dL (70-110)
--- NOTE | 2024-10-03 21:50 | CC ---
CARDIAC CATHETERIZATION REPORT PROCEDURES PERFORMED: 1. Left heart catheterization and coronary angiography. 2. Percutaneous transluminal coronary angioplasty of the circumflex marginal coronary artery, unsuccessful, unable to cross with the wire. PERFORMED BY: Dr. Jarrett Ojeda. ANESTHESIA: Moderate conscious sedation time was 90 minutes. CLINICAL INFORMATION: Ms. Eleazar Balbuena is a 53-year-old lady with a known history of CAD, who underwent stenting of LAD and circumflex in the past. As recently as November of this year, she was admitted to the hospital with unstable angina, had significant lesions in the LAD as well as the RCA and she went on to have aortocoronary bypass surgery off pump with the SANDERSON to LAD, vein graft to the RCA and a free radial artery graft to the obtuse marginal branch of circumflex. She had a recent orthopedic surgery involving the cervical spine fusion, following which she had a mild troponin elevation. She came back with chest pain, was advised cardiac cath after due discussion regarding risks, benefits, and options. PROCEDURE NOTE: This patient had a previous radial cath that was difficult and also had the left radial artery used for bypass grafting. I performed procedure from the right femoral approach. There was a lot of scar tissue. With micropuncture needle technique, 6- Ukrainian introducer was placed. I had to use a dilator to be able to get past the scar tissue. Using standard Chay catheters, I performed coronary angiography and also checked LV pressures. I used a Ozzie catheter to get a SANDERSON injection and I used an AR1 catheter for the vein graft to the RCA and also got Ozzie catheter for selective injection of the vein graft to the RCA and the same catheter was used for a subselective injection of the radial artery graft to the obtuse marginal. I performed an aortogram to visualize the grafts. Following this, I proceeded to perform intervention of the kenaitze circumflex marginal, but the procedure was unsuccessful. I could not cross the 99% angulated stenosis. The sheath was then taken out and with the help of an Amplatz wire, I placed a 6-Ukrainian Angio-Seal and the patient was sent to the room in a stable condition. Results were discussed with the patient and her daughter. We will pursue medical therapy for now and I will seek another opinion to see if we can perform intervention of the circumflex marginal which has moderate area of myocardial perfusion. CARDIAC CATHETERIZATION FINDINGS: Left main coronary artery: Short patent vessel. No significant disease. Bifurcates into LAD and circumflex. Left anterior descending coronary artery: This is patent at the proximal and ostial portion as a 60% narrowing caliber then improves and the LAD stent is patent with decent flow. Mid LAD has about a 50% narrowing. Distally, it runs all the way to the apex, supplies a fair amount of myocardium. Mid LAD therefore has about 40% to 50% narrowing. The injection of the left coronary fills the SANDERSON graft backwards. There is a diagonal branch with ostial lesion of about 60% also. Left posterior circumflex coronary artery: Nondominant vessel of good caliber, gives off a large 1st obtuse marginal that was stented in the proximal portion. Stent is patent beyond that at a very steep angle. There is a 95% stenosis after which 2 branches came off from the circumflex marginal. Continuation of circumflex distally has minor irregularities. Right coronary artery: This is a dominant vessel. Proximal 70% to 80% stenosis. Competitive flow noted. The vein graft also fills. Distally, it bifurcates into PDA and PLV. Saphenous vein graft to the right coronary artery: This graft is small in caliber. The graft is patent with brisk flow, distally fills the branches of RCA. No significant disease within the graft, but the graft appears to be smaller in relation to the vessel size and some diffuse disease noted. Free radial artery graft injection: This was a subselective injection. The graft is evident, fills late, very small in caliber, probably nonfunctional. LV pressures were obtained with the same right Chay diagnostic catheter. The left ventricular end-diastolic pressure was 14 mmHg without any gradient across the aortic valve. The dominant right coronary artery has a proximal 70% to 80% stenosis with competitive flow. Vein graft to the RCA is patent with decent flow. LAD has a proximal lesion of about 60% and within the stent the flow is brisk. It fills the SANDERSON backwards. About a 40% lesion in the LAD at the junction of middle and distal 1/3rd. The SANDERSON fills backwards. The left internal mammary artery graft to LAD is patent with good flow. The kenaitze vessel has a brisk flow and therefore, the flow in the bypass graft does not seem as efficient, but I believe there is no significant stenosis. The entire SANDERSON appears to be somewhat small in caliber, but it fills the LAD all the way to the apex. FINAL IMPRESSION: There is significant disease in the kenaitze circumflex marginal of about 95%, which is a progression of disease compared to the cath from November of this year. The free radial artery graft to the OM is nonfunctional. The RCA has significant stenosis, but RCA graft is patent. LAD has a 60% narrowing ostially and also 50% midportion, but SANDERSON to LAD is patent. Grayling LAD flow is good. Filling pressures are acceptable. No gradient. RECOMMENDATIONS: I recommended PCI of circumflex in the same setting. PCI PROCEDURE DETAILS: I gave 7000 units of heparin. ACT was about 250 range. I used a standard left Chay guide catheter. I tried to cross the lesion with a Whisper wire, I was unsuccessful. I then used a combination of 45 degree SuperCross initially with a run-through wire, I was unable to cross. I then tried with a J-tip Whisper wire and a SuperCross 45 degree. With this combination also, I could not cross the lesion. I had given substantial amount of contrast. I explained to the patient. I abandoned the procedure, this was unsuccessful. We will discuss other options, but for now we will pursue medical therapy. I explained this to the patient and daughter and she was sent to the room in a stable condition. MMODL / IJN: [id number] /
[2024-10-04 06:17] LABS: Glucose,Whole Blood 233 mg/dL (70-110)
[2024-10-04 11:17] LABS: Glucose,Whole Blood 250 mg/dL (70-110)
[2024-10-04 11:48] LABS: Basophils % (A) 0 %; Eosinophils # (A) 0.1 k/uL (0-0.7); Eosinophils % (A) 1 %; HCT 37.5 % (34.0-46.0); HGB 12.3 gm/dL (11.4-16.0); Lymphocytes # (A) 2.6 k/uL (1.0-4.8); Lymphocytes % (A) 29 %; MCH 29.5 pg (25.0-35.0); MCHC 32.8 g/dL (31.0-37.0); MCV 89.7 fL (80.0-100.0); Mean Platelet Volume 7.1; Monocytes # (A) 0.4 k/uL (0-1.0); Monocytes % (A) 5 %; Neutrophils # (A) 5.8 k/uL (1.3-7.7); Neutrophils % (A) 64 %; Platelet Count 240 k/uL (150-450); RBC 4.18 m/uL (3.80-5.40); RDW 13.7 % (11.5-15.5); WBC 9.1 k/uL (3.8-10.6)
[2024-10-04 11:58] LABS: African American GFR (CKD) >90 (>60 ml/min/1.73 sqM); Anion Gap 1 mmol/L; Blood Urea Nitrogen 13 mg/dL (7-17); Calcium 9.5 mg/dL (8.4-10.2); Carbon Dioxide 30 mmol/L (22-30); Chloride 108 mmol/L (98-107); Glucose 203 mg/dL (74-99); Non-African American GFR(CKD) >90 (>60 ml/min/1.73 sqM); Sodium 139 mmol/L (137-145)
--- NOTE | 2024-10-04 13:22 | P.PN ---
Subjective Progress Note Date: 10/04/24 The patient is a 53-year-old female who follows in the office with Dr. NIMISHA Ojeda. Patient presented to the hospital with chest discomfort. She states this had been occurring over the last month. Yesterday she underwent coronary angiogram, which showed nonfunctioning radial graft with severe disease of the left circumflex. Attempted PCI, however unable to pass wire due to tortuosity. Patient interviewed and examined sitting up in the recliner chair. GENERAL: Well-appearing, well-nourished and in no acute distress. NECK: Supple without JVD or thyromegaly. LUNGS: Breath sounds clear to auscultation bilaterally. Respiration equal and unlabored. No wheezes, rales or rhonchi. HEART: Regular rate and rhythm without murmurs, rubs or gallops. S1 and S2 heard. EXTREMITIES: Normal range of motion, no edema. No clubbing or cyanosis. Peripheral pulses intact and strong. TELEMETRY: Sinus rhythm overnight LABS: WBC 9 book on hemoglobin 12.3, hematocrit 37.5, platelet 240, sodium 139, potassium 4.0, BUN 13, creatinine 0.61 IMPRESSION: Non-STEMI Severe disease of the left circumflex with nonfunctioning radial graft Status post cervical fusion on 09/10/2024 Coronary artery disease with previous CABG, 12/2023 Hypertension Hyperlipidemia Diabetes GERD History of rheumatoid arthritis COPD PLAN: Discontinue amlodipine per Dr. Ortiz Increase losartan to 75 mg daily Further recommendations to be based upon clinical course I am dictating on behalf of Dr Elver Ortiz's history/physical and asse ssment/plan. Objective - Vital Signs Vital signs: Vital Signs Temp 97.9 F 10/04/24 11:42 Pulse 68 10/04/24 11:42 Resp 20 10/04/24 11:42 BP 174/76 10/04/24 11:42 Pulse Ox 98 10/04/24 11:42 FiO2 Intake & Output 10/03/24 10/04/24 10/04/24 18:59 06:59 18:59 Intake Total 997 1500 180 Output Total 800 Balance 997 700 180 Weight 81 kg 81.2 kg Intake: IV 275 Intake, IV Titration 500 Amount Sodium Chloride 0.9% 1, 500 000 ml @ 75 mls/hr IV . [id number] [facility] Rx#:[id number] Oral 222 1500 180 Output: Urine 800 Other: # Voids 1 1 - Labs CBC & Chem 7: 10/04/24 11:31 10/04/24 11:31 Labs: Abnormal Lab Results - Last 24 Hours (Table) 10/03/24 10/03/24 10/04/24 Range/Units 16:29 20:04 06:16 Chloride (98-107) mmol/L Glucose (74-99) mg/dL POC Glucose (mg/dL) 466 H 223 H 233 H (70-110) mg/dL 10/04/24 10/04/24 Range/Units 11:14 11:31 Chloride 108 H (98-107) mmol/L Glucose 203 H (74-99) mg/dL POC Glucose (mg/dL) 250 H (70-110) mg/dL
--- NOTE | 2024-10-04 14:08 | P.PN ---
Subjective Progress Note Date: 10/04/24 Hospital course Patient is a 53-year-old female with past medical history of asthma, coronary artery disease (with 3 stents, estimated left ventricular ejection fraction at 55 to 60% per echocardiogram performed on 09/15/2024), COPD, diabetes, hyperlipidemia, history of myocardial infarction (most recent March 2022), musculoskeletal disorder, rheumatoid arthritis, and thyroid disease presented to the emergency department with chest pain that has been going on for the past several weeks. Patient stated that chest tightness ongoing since neck surgery in August. Patient reports that the chest tightness sensation gets worse with eating and moving. However the chest pain got worse last night which prompted the patient to come to the emergency department. Subjective Patient seen this morning. She had no acute complaints. Assessment and plan Non-ST elevation [place] Troponin trend is 0.043 to 0.058 to 0.071 Patient currently on heparin drip Status post left heart catheterization on 10/03/2024 with unsuccessful PCI to the left circumflex I reviewed cardiology note from today who said will reattempt PCI of the left circumflex on Sunday Continue with aspirin 81 mg p.o. daily, atorvastatin 80 mg p.o. daily, Imdur, losartan 75 mg at bedtime Diabetes mellitus uncontrolled This morning blood glucose is acceptable Hemoglobin A1c last month on 09/06/2024 was 9.7 Patient at home takes Farxiga 10 mg p.o. daily and metformin 1000 mg p.o. twice daily. Continue sliding scale insulin and 5 units before each meal Continue with Levemir 10 units twice daily Patient blood glucose has been uncontrolled. Patient admits that she has been noncompliant with her diet as well as medications. No changes will be made to her diabetic medications on discharge. Instead patient counseled on compliance. Yesterday after heart catheterization patient drank Pepsi and also ate a cookie. Her blood glucose was then in the 400s. Constipation could be opioid induced as patient is on oxycodone at home Continue with MiraLAX twice daily GERD Continue Protonix 40 mg p.o. daily Hyperlipidemia Continue atorvastatin 80 mg p.o. daily Rheumatoid arthritis Continue with hydrocortisone 5 mg at bedtime and 10 mg daily Continue with oxycodone 5 mg p.o. every 4 hours as needed and tizanidine 2 mg p.o. 3 times daily as needed, gabapentin 3 mg p.o. twice daily Hypertension Continue with losartan. Continue with hydrochlorothiazide 25 mL p.o. daily. DVT ppx: heparing ggt. Objective - Vital Signs Vital signs: Vital Signs Temp 97.9 F 10/04/24 11:42 Pulse 68 10/04/24 11:42 Resp 20 10/04/24 11:42 BP 174/76 10/04/24 11:42 Pulse Ox 98 10/04/24 11:42 FiO2 Intake & Output 10/03/24 10/04/24 10/04/24 18:59 06:59 18:59 Intake Total 997 1500 360 Output Total 800 Balance 997 700 360 Weight 81 kg 81.2 kg Intake: IV 275 Intake, IV Titration 500 Amount Sodium Chloride 0.9% 1, 500 000 ml @ 75 mls/hr IV . [id number] [facility] Rx#:[id number] Oral 222 1500 360 Output: Urine 800 Other: # Voids 1 1 - Labs CBC & Chem 7: 10/04/24 11:31 10/04/24 11:31 Labs: Abnormal Lab Results - Last 24 Hours (Table) 10/03/24 10/03/24 10/04/24 Range/Units 16:29 20:04 06:16 Chloride (98-107) mmol/L Glucose (74-99) mg/dL POC Glucose (mg/dL) 466 H 223 H 233 H (70-110) mg/dL 10/04/24 10/04/24 Range/Units 11:14 11:31 Chloride 108 H (98-107) mmol/L Glucose 203 H (74-99) mg/dL POC Glucose (mg/dL) 250 H (70-110) mg/dL
[2024-10-04 16:28] LABS: Glucose,Whole Blood 329 mg/dL (70-110)
[2024-10-04 20:04] LABS: Glucose,Whole Blood 321 mg/dL (70-110)
[2024-10-04] MEDS: LOSARTAN 25 MG TAB PO SCH (21:06)
[2024-10-05 06:16] LABS: Glucose,Whole Blood 401 mg/dL (70-110)
[2024-10-05] MEDS: NITROGLYCERIN SL TABS 0.4 MG TAB SUBLINGUAL PRN (06:38)
[2024-10-05] MEDS: MORPHINE SULFATE 4 MG/ML SYRINGE IV PRN (06:47)
--- NOTE | 2024-10-05 10:45 | P.PN ---
Subjective Progress Note Date: 10/05/24 Hospital course Patient is a 53-year-old female with past medical history of asthma, coronary artery disease (with 3 stents, estimated left ventricular ejection fraction at 55 to 60% per echocardiogram performed on 09/15/2024), COPD, diabetes, hyperlipidemia, history of myocardial infarction (most recent March 2022), musculoskeletal disorder, rheumatoid arthritis, and thyroid disease presented to the emergency department with chest pain that has been going on for the past several weeks. Patient stated that chest tightness ongoing since neck surgery in August. Patient reports that the chest tightness sensation gets worse with eating and moving. However the chest pain got worse last night which prompted the patient to come to the emergency department. Patient did have a left heart catheterization done on 10/03/2024 with unsuccessful PCI to the left circumflex. Per cardiology plan is for repeat heart catheterization tomorrow. Patient's diabetes has been uncontrolled. Patient admits that she has been noncompliant with the diet as well as medications at home. At this time patient would not like any adjustments to her diabetic medications and she would like to try how she does with being compliant with her diet and medications. Subjective Patient states that she did have some chest pain this morning. She states that she got nitro which helped with the chest pain. Assessment and plan Non-ST elevation [place] Troponin trend is 0.043 to 0.058 to 0.071 Patient currently on heparin drip Status post left heart catheterization on 10/03/2024 with unsuccessful PCI to the left circumflex I reviewed cardiology note from today who said will reattempt PCI of the left circumflex on Sunday Continue with aspirin 81 mg p.o. daily, atorvastatin 80 mg p.o. daily, Imdur, losartan 75 mg at bedtime Diabetes mellitus uncontrolled This morning blood glucose is acceptable Hemoglobin A1c last month on 09/06/2024 was 9.7 Patient at home takes Farxiga 10 mg p.o. daily and metformin 1000 mg p.o. twice daily. Continue sliding scale insulin and 5 units before each meal Continue with Levemir 10 units twice daily Patient blood glucose has been uncontrolled. Patient admits that she has been noncompliant with her diet as well as medications. No changes will be made to her diabetic medications on discharge. Instead patient counseled on compliance. Yesterday after heart catheterization patient drank Pepsi and also ate a cookie. Her blood glucose was then in the 400s. Constipation could be opioid induced as patient is on oxycodone at home Continue with MiraLAX twice daily GERD Continue Protonix 40 mg p.o. daily Hyperlipidemia Continue atorvastatin 80 mg p.o. daily Rheumatoid arthritis Continue with hydrocortisone 5 mg at bedtime and 10 mg daily Continue with oxycodone 5 mg p.o. every 4 hours as needed and tizanidine 2 mg p.o. 3 times daily as needed, gabapentin 3 mg p.o. twice daily Hypertension Continue with losartan. Continue with hydrochlorothiazide 25 mL p.o. daily. DVT ppx: heparing ggt. Objective - Vital Signs Vital signs: Vital Signs Temp 98.1 F 10/05/24 08:00 Pulse 61 10/05/24 08:00 Resp 20 10/05/24 08:00 BP 123/52 10/05/24 08:00 Pulse Ox 100 10/05/24 08:00 FiO2 Intake & Output 10/04/24 10/05/24 10/05/24 18:59 06:59 18:59 Intake Total 600 250 Balance 600 250 Weight 83.2 kg Intake: IV 10 Invasive Line 2 10 Intake, IV Titration 0 Amount Sodium Chloride 0.9% 1, 0 000 ml @ 75 mls/hr IV . [id number] [facility] Rx#:[id number] Oral 600 240 Other: # Voids 3 3 1 - Labs CBC & Chem 7: 10/04/24 11:31 10/04/24 11:31 Labs: Abnormal Lab Results - Last 24 Hours (Table) 10/04/24 10/04/24 10/04/24 Range/Units 11:14 11:31 16:26 Chloride 108 H (98-107) mmol/L Glucose 203 H (74-99) mg/dL POC Glucose (mg/dL) 250 H 329 H (70-110) mg/dL 10/04/24 10/05/24 Range/Units 20:03 06:14 Chloride (98-107) mmol/L Glucose (74-99) mg/dL POC Glucose (mg/dL) 321 H 401 H (70-110) mg/dL
[2024-10-05 11:31] LABS: Glucose,Whole Blood 215 mg/dL (70-110)
[2024-10-05] MEDS: INSULIN ASPART (NovoLOG) 100 UNIT/ML VIAL SQ SCH (13:11)
--- NOTE | 2024-10-05 14:02 | P.PN ---
Subjective Progress Note Date: 10/05/24 The patient is a 53-year-old female who follows in the office with Dr. NIMISHA Ojeda. Patient presented to the hospital with chest discomfort. She states this had been occurring over the last month. Yesterday she underwent coronary angiogram, which showed nonfunctioning radial graft with severe disease of the left circumflex. Attempted PCI, however unable to pass wire due to tortuosity. Over the last 24 hours we have adjusted her antihypertensive regimen and she has remained controlled. Patient interviewed and examined resting in bed. She denies any current chest pain or difficulty breathing at rest. GENERAL: Well-appearing, well-nourished and in no acute distress. NECK: Supple without JVD or thyromegaly. LUNGS: Breath sounds clear to auscultation bilaterally. Respiration equal and unlabored. No wheezes, rales or rhonchi. HEART: Regular rate and rhythm without murmurs, rubs or gallops. S1 and S2 heard. EXTREMITIES: Normal range of motion, no edema. No clubbing or cyanosis. Peripheral pulses intact and strong. TELEMETRY: Sinus rhythm overnight IMPRESSION: Non-STEMI Severe disease of the left circumflex with nonfunctioning radial graft Status post cervical fusion on 09/10/2024 Coronary artery disease with previous CABG, 12/2023 Hypertension Hyperlipidemia Diabetes GERD History of rheumatoid arthritis COPD PLAN: Continue current cardiac medication regimen Consideration for review of the films of the coronary angiogram, possible intervention on circumflex lesion, medical treatment for now Dr. Ojeda had a discussion with the patient postprocedure and recommended medical treatment. He sought a second opinion, after reviewed the cath films with Dr. Olmstead I am dictating on behalf of Dr Elver Ortiz's history/physical and assessment/plan. Objective - Vital Signs Vital signs: Vital Signs Temp 98.2 F 10/05/24 11:55 Pulse 62 10/05/24 11:55 Resp 20 10/05/24 11:55 BP 120/70 10/05/24 11:55 Pulse Ox 100 10/05/24 11:55 FiO2 Intake & Output 10/04/24 10/05/24 10/05/24 18:59 06:59 18:59 Intake Total 600 430 Balance 600 430 Weight 83.2 kg Intake: IV 10 Invasive Line 2 10 Intake, IV Titration 0 Amount Sodium Chloride 0.9% 1, 0 000 ml @ 75 mls/hr IV . [id number] [facility] Rx#:[id number] Oral 600 420 Other: # Voids 3 3 1 - Labs CBC & Chem 7: 10/04/24 11:31 10/04/24 11:31 Labs: Abnormal Lab Results - Last 24 Hours (Table) 10/04/24 10/04/24 10/05/24 Range/Units 16:26 20:03 06:14 POC Glucose (mg/dL) 329 H 321 H 401 H (70-110) mg/dL 10/05/24 Range/Units 11:28 POC Glucose (mg/dL) 215 H (70-110) mg/dL
--- NOTE | 2024-10-05 14:17 | P.PN ---
Progress Note - Text Progress Note Date: 10/05/24 I was called by the nurse because patient is complaining of some facial swelling. I went to go see the patient and there is no obvious signs of facial swelling. I will start the patient on Benadryl 25 mg every 8 hours and will monitor the patient to see if there is any improvement in her symptoms..
[2024-10-05] MEDS: diphenhydrAMINE 25 MG CAP PO SCH (14:30)
[2024-10-05 16:08] LABS: Glucose,Whole Blood 221 mg/dL (70-110)
[2024-10-05 21:18] LABS: Glucose,Whole Blood 387 mg/dL (70-110)
[2024-10-05] MEDS: INSULIN DETEMIR (LEVEMIR) 100 UNIT/ML SYR SQ SCH (22:01)
[2024-10-06] MEDS: NITROGLYCERIN OINT 1 INCH/GM PACKET TOPICAL SCH (01:04)
[2024-10-06 06:02] LABS: Glucose,Whole Blood 227 mg/dL (70-110)
[2024-10-06] MEDS: DOCUSATE 100 MG CAP PO PRN (09:26)
[2024-10-06 11:21] LABS: Glucose,Whole Blood 342 mg/dL (70-110)
[2024-10-06] MEDS: RANOLAZINE 500 MG TAB.ER.12H PO SCH (13:18)
[2024-10-06] MEDS: ISOSORBIDE MONONITRATE ER 30 MG TAB.ER.24H PO STA (13:18)
--- NOTE | 2024-10-06 14:04 | P.PN ---
Subjective Progress Note Date: 10/06/24 The patient is a 53-year-old female who follows in the office with Dr. NIMISHA Ojeda. Patient presented to the hospital with chest discomfort. She states this had been occurring over the last month. Yesterday she underwent coronary angiogram, which showed nonfunctioning radial graft with severe disease of the left circumflex. Attempted PCI, however unable to pass wire due to tortuosity. Over the last 24 hours we have adjusted her antihypertensive regimen and she has remained controlled. Patient interviewed and examined resting in bed. She denies any current chest pain or difficulty breathing at rest.TELEMETRY: Sinus rhythm overnight 10/06/2024 Patient states that she is still having chest pain that is a number 6 out of 10 while she has Nitropaste on. The chest pain occurs with movement and with exertion. She gives history that she had a CABG done 01/03/2024. She is not currently on heparin and the order will be discontinued. There apparently was some confusion as the patient thought she was undergoing a repeat cardiac catheterization today but the plan from cardiology was for discharge and follow- up with Dr. Ojeda as an outpatient. She has met with the patient liaison. At this time, plan is for Dr. NIMISHA Ojeda to discuss plans with the patient. Physical examination: GENERAL: Well-appearing, well-nourished and in no acute distress. NECK: Supple without JVD or thyromegaly. LUNGS: Breath sounds clear to auscultation bilaterally. Respiration equal and unlabored. No wheezes, rales or rhonchi. HEART: Regular rate and rhythm without murmurs, rubs or gallops. S1 and S2 heard. EXTREMITIES: Normal range of motion, no edema. No clubbing or cyanosis. Peripheral pulses intact and strong. All thank you IMPRESSION: Non-STEMI Severe disease of the left circumflex with nonfunctioning radial graft Status post cervical fusion on 09/10/2024 Coronary artery disease with previous CABG, 12/2023 Hypertension Hyperlipidemia Diabetes GERD History of rheumatoid arthritis COPD PLAN: Continue current cardiac medication regimen: Aspirin 81 mg daily, Lipitor 80 mg daily, Plavix 75 mg daily, Zetia 10 mg daily losartan 75 mg at bedtime, Toprol- XL 75 mg daily Continue patient on Nitropaste Increase Imdur to 60 mg daily Add Ranexa [address] Ojeda will have a discussion with the patient regarding further plans. Nurse practitioner note has been reviewed, I agree with documented findings and plan of care. Patient was seen and examined. Objective - Vital Signs Vital signs: Vital Signs Temp 98.1 F 10/06/24 09:20 Pulse 66 10/06/24 12:00 Resp 16 10/06/24 12:00 BP 120/74 10/06/24 12:00 Pulse Ox 100 10/06/24 12:00 FiO2 Intake & Output 10/05/24 10/06/24 10/06/24 18:59 06:59 18:59 Intake Total 610 10 Balance 610 10 Weight 84.1 kg Intake: IV 10 10 Invasive Line 2 10 10 Oral 600 Other: Voiding Method Toilet Toilet # Voids 4 2 - Labs CBC & Chem 7: 10/04/24 11:31 10/04/24 11:31 Labs: Abnormal Lab Results - Last 24 Hours (Table) 10/05/24 10/05/24 10/06/24 Range/Units 16:06 21:13 06:01 POC Glucose (mg/dL) 221 H 387 H 227 H (70-110) mg/dL 10/06/24 Range/Units 11:20 POC Glucose (mg/dL) 342 H (70-110) mg/dL
[2024-10-06 14:56] LABS: HCT 35.2 % (34.0-46.0); HGB 11.7 gm/dL (11.4-16.0); MCH 30.4 pg (25.0-35.0); MCHC 33.2 g/dL (31.0-37.0); MCV 91.6 fL (80.0-100.0); Mean Platelet Volume 7.3; Platelet Count 220 k/uL (150-450); RBC 3.84 m/uL (3.80-5.40); WBC 10.4 k/uL (3.8-10.6)
[2024-10-06 15:05] LABS: African American GFR (CKD) >90 (>60 ml/min/1.73 sqM); Anion Gap 6 mmol/L; Blood Urea Nitrogen 13 mg/dL (7-17); Calcium 9.4 mg/dL (8.4-10.2); Carbon Dioxide 27 mmol/L (22-30); Chloride 102 mmol/L (98-107); Glucose 401 mg/dL (74-99); Non-African American GFR(CKD) >90 (>60 ml/min/1.73 sqM); Potassium 4.2 mmol/L (3.5-5.1); Sodium 135 mmol/L (137-145)
[2024-10-06 16:14] LABS: Glucose,Whole Blood 427 mg/dL (70-110)
--- NOTE | 2024-10-06 17:32 | P.PN ---
Subjective Progress Note Date: 10/06/24 Hospital Course: A 53-year-old female with past medical history of CAD status post stents, CABG, EF 55 to 60%, COPD, asthma, diabetes, HLD, history of [place], history of RA, history of thyroid disease who presented to the ER with chest pain that has been going on for the past several weeks, patient stated that the chest pain and tightness are not going since her neck surgery in August, and get worse with eating and exertion. Patient had heart cath on 10/03/2024 with unsuccessful PCI to the l eft circumflex, repeat heart cath planned for 10/07. Of note, patient's diabetes is uncontrolled, she is noncompliant with her medications and diet, fast food consumption was reported by patient's RN, patient was also drinking nondiet soda. Subjective: She was seen and examined at bedside this morning, continues to complain of chest pain, persistent, worse with physical activity, associated shortness of breath Pertinent positives and negatives as discussed above, a complete review of systems was performed and all other systems are negative. Vitals Signs Reviewed. General: [nontoxic], [no distress], [appears at stated age] Derm: [warm], [dry] Head: [atraumatic], [normocephalic], [symmetric] Eyes: [EOMI], [no lid lag], [anicteric sclera] Mouth: [no lip lesion], [mucus membranes moist] Cardiovascular: [S1S2 reg], [no murmur] Lungs: [CTA bilateral], [no rhonchi, no rales] , [no accessory muscle use] Abdominal: [soft], [ nontender to palpation], [no guarding], [no appreciable organomegaly] Ext: [no gross muscle atrophy], [no edema], [no contractures] Neuro: [ CN II-XI grossly intact], [no focal neuro deficits] Psych: [Alert], [oriented], [appropriate affect] Data Reviewed Today: Pertinent Labs: CBC stable and WNL, sodium 135, normal potassium, normal creatinine, blood glucoses not controlled, adjustment made to insulin regimen Assessment and Plan: NSTEMI CAD with severe disease of the left circumflex with nonfunctioning radial graft S/p CABG 12/2023 Diabetes COPD -Cardiology following, plan for heart cath 10/07 -Continue aspirin and Plavix -Continue high intensity statin, Zetia 10 mg -Continue losartan 75, Toprol-XL 75, continue Nitropaste, Imdur was increased up to 60 mg/day by cardiology, Ranexa 500 mg twice daily added -Increased Levemir 18 units twice daily, continue SSI, increased mealtime insulin 10 units, Farxiga, metformin -Encourage diet and medications compliant Constipation could be opioid induced as patient is on oxycodone at home Continue with MiraLAX twice daily GERD Continue Protonix 40 mg p.o. daily Hyperlipidemia Continue atorvastatin 80 mg p.o. daily Rheumatoid arthritis Continue with hydrocortisone 5 mg at bedtime and 10 mg daily Continue with oxycodone 5 mg p.o. every 4 hours as needed and tizanidine 2 mg p. o. 3 times daily as needed, gabapentin 3 mg p.o. twice daily Hypertension Continue with losartan. Continue with hydrochlorothiazide 25 mL p.o. daily. DVT ppx: heparin Anticipated discharge place: d Anticipated discharge time: 48 hours Objective - Vital Signs Vital signs: Vital Signs Temp 97.7 F 10/06/24 15:43 Pulse 67 10/06/24 15:43 Resp 17 10/06/24 15:43 BP 108/58 10/06/24 15:43 Pulse Ox 98 10/06/24 15:43 FiO2 Intake & Output 10/05/24 10/06/24 10/06/24 18:59 06:59 18:59 Intake Total 610 20 Balance 610 20 Weight 84.1 kg Intake: IV 10 20 Invasive Line 2 10 20 Oral 600 Other: Voiding Method Toilet Toilet # Voids 4 2 - Labs CBC & Chem 7: 10/06/24 14:33 10/06/24 14:33 Labs: Abnormal Lab Results - Last 24 Hours (Table) 10/05/24 10/06/24 10/06/24 Range/Units 21:13 06:01 11:20 Sodium (137-145) mmol/L Glucose (74-99) mg/dL POC Glucose (mg/dL) 387 H 227 H 342 H (70-110) mg/dL 10/06/24 10/06/24 Range/Units 14:33 16:12 Sodium 135 L (137-145) mmol/L Glucose 401 H (74-99) mg/dL POC Glucose (mg/dL) 427 H (70-110) mg/dL
[2024-10-06] MEDS: INSULIN ASPART (NovoLOG) 100 UNIT/ML VIAL SQ SCH (17:34)
[2024-10-06] MEDS: INSULIN ASPART (NovoLOG) 100 UNIT/ML VIAL SQ ONE (17:39)
[2024-10-06 20:05] LABS: Glucose,Whole Blood 391 mg/dL (70-110)
--- NOTE | 2024-10-06 21:35 | PN ---
PROGRESS NOTE This is a 53-year-old lady with type 2 diabetes, on insulin, CAD with multivessel stenting and bypass surgery in November of this year. I performed a cardiac cath and attempted PCI of her circumflex vessel. The graft to the circumflex which was a free radial graft appears to be occluded. I could not cross the lesion with the wire. I therefore advised we will treat her medically and bring her back, but she continues to have chest pain without EKG changes. I saw her today. I spent quite a bit of time, explained to her that we will perform the procedure tomorrow at 12 noon, I will request Dr. Olmstead to assist me. We will try to open up the circumflex marginal, which I believe has a suture at the site of the lesion where there was a graft insertion site. I will perform an aortogram in the IRWIN projection first to make sure that the graft is not patent and we will do this 1 more time and then we will perform intervention. The patient understands the rationale, risks, benefits, options, and is appreciative of the efforts and she knows that we will do the procedure at 12 noon tomorrow. Vitals are stable. Physical exam is unchanged. MMODL / IJN: [id number] /
[2024-10-06] MEDS: INSULIN DETEMIR (LEVEMIR) 100 UNIT/ML SYR SQ SCH (22:14)
[2024-10-07] MEDS: ASPIRIN 325 MG TAB PO ONE (06:09)
[2024-10-07] MEDS: EMPTY BAG 1 BAG with SODIUM CHLORIDE 0.9% 1,000 ML IV ONE (06:09)
[2024-10-07 06:16] LABS: Glucose,Whole Blood 340 mg/dL (70-110)
[2024-10-07] MEDS: INSULIN ASPART (NovoLOG) 100 UNIT/ML VIAL SQ SCH ×2 (06:27→14:04)
[2024-10-07] MEDS ORDERED: HEPARIN SODIUM,PORCINE 10,000 UNIT in SODIUM CHLORIDE 0.9% 1,000 ML IRRIGATION PRN (07:00)
[2024-10-07] MEDS ORDERED: HEPARIN SODIUM,PORCINE (1 ML) 2,500 UNIT in SODIUM CHLORIDE 0.9% 250 ML IRRIGATION PRN (07:00)
[2024-10-07] MEDS: ISOSORBIDE MONONITRATE ER 60 MG TAB.ER.24H PO SCH (09:35)
--- NOTE | 2024-10-07 11:19 | P.PN ---
Subjective Progress Note Date: 10/07/24 Hospital Course: A 53-year-old female with past medical history of CAD status post stents, CABG, EF 55 to 60%, COPD, asthma, diabetes, HLD, history of [place], history of RA, history of thyroid disease who presented to the ER with chest pain that has been going on for the past several weeks, patient stated that the chest pain and tightness are not going since her neck surgery in August, and get worse with eating and exertion. Patient had heart cath on 10/03/2024 with unsuccessful PCI to the l eft circumflex, repeat heart cath planned for 10/07. Of note, patient's diabetes is uncontrolled, she is noncompliant with her medications and diet, fast food consumption was reported by patient's RN, patient was also drinking nondiet soda. Subjective: Was seen and examined at bedside, from RN notes, patient refused to take shower at 5 AM and it was too early, patient was also questioning her n.p.o. status. Otherwise she states that she did not have any rest overnight as she usually works midnights, she was also under stress on 10/06 due to family situation that has resolved since and now feels less anxious. She was complaining of stomach pain from her gastritis, lower extremity swelling that of note, was not noticed on exam Pertinent positives and negatives as discussed above, a complete review of systems was performed and all other systems are negative. Vitals Signs Reviewed. General: [nontoxic], [no distress], [appears at stated age] Derm: [warm], [dry] Head: [atraumatic], [normocephalic], [symmetric] Eyes: [EOMI], [no lid lag], [anicteric sclera] Mouth: [no lip lesion], [mucus membranes moist] Cardiovascular: [S1S2 reg], [no murmur] Lungs: [CTA bilateral], [no rhonchi, no rales] , [no accessory muscle use] Abdominal: [soft], [ nontender to palpation], [no guarding], [no appreciable organomegaly] Ext: [no gross muscle atrophy], [no edema], [no contractures] Neuro: [ CN II-XI grossly intact], [no focal neuro deficits] Psych: [Alert], [oriented], [appropriate affect] Data Reviewed Today: Pertinent Labs: Glucose in 300s, reviewED the RN reports regarding diet n oncompliance Assessment and Plan:NSTEMI CAD with severe disease of the left circumflex with nonfunctioning radial graft S/p CABG 12/2023 Controlled diabetes COPD, not in exacerbation -Cardiology following, plan for heart cath 10/07 -Continue aspirin and Plavix -Continue high intensity statin, Zetia 10 mg -Continue losartan 75, Toprol-XL 75, continue Nitropaste, Imdur was increased up to 60 mg/day by cardiology, Ranexa 500 mg twice daily added -Increased Levemir 18>23 units twice daily, continue SSI, increased mealtime insulin 10>15 units patient's blood sugars remain elevated at 300s, Farxiga, metformin -Encourage diet and medications complianCE Constipation could be opioid induced as patient is on oxycodone at home Continue with MiraLAX twice daily GERD Continue Protonix 40 mg p.o. daily Hyperlipidemia Continue atorvastatin 80 mg p.o. daily Rheumatoid arthritis Continue with hydrocortisone 5 mg at bedtime and 10 mg daily Continue with oxycodone 5 mg p.o. every 4 hours as needed and tizanidine 2 mg p.o. 3 times daily as needed, gabapentin 3 mg p.o. twice daily Hypertension Continue with losartan. Continue with hydrochlorothiazide 25 mL p.o. daily. DVT ppx: heparin Anticipated discharge place: likely home independent Anticipated discharge time: 24 hours Objective - Vital Signs Vital signs: Vital Signs Temp 97.9 F 10/07/24 11:09 Pulse 62 10/07/24 11:09 Resp 20 10/07/24 11:09 BP 138/70 10/07/24 11:09 Pulse Ox 100 10/07/24 11:09 FiO2 Intake & Output 10/06/24 10/07/24 10/07/24 18:59 06:59 18:59 Intake Total 20 Balance 20 Weight 84.7 kg Intake: IV 20 Invasive Line 2 20 Other: Voiding Method Toilet Toilet # Voids 1 - Labs CBC & Chem 7: 10/06/24 14:33 10/06/24 14:33 Labs: Abnormal Lab Results - Last 24 Hours (Table) 10/06/24 10/06/24 10/06/24 Range/Units 11:20 14:33 16:12 Sodium 135 L (137-145) mmol/L Glucose 401 H (74-99) mg/dL POC Glucose (mg/dL) 342 H 427 H (70-110) mg/dL 10/06/24 10/07/24 Range/Units 20:03 06:14 Sodium (137-145) mmol/L Glucose (74-99) mg/dL POC Glucose (mg/dL) 391 H 340 H (70-110) mg/dL
--- NOTE | 2024-10-07 11:42 | XR ---
EXAMINATION TYPE: XR chest 1V DATE OF EXAM: 10/07/2024 11:30 AM COMPARISON: 10/01/2024 CLINICAL INDICATION: Female, 53 years old with history of fluid in lungs, TECHNIQUE: Single frontal view of the chest is obtained. FINDINGS: There is no focal air space opacity, pleural effusion, or pneumothorax seen. The cardiac silhouette size is within normal limits. The osseous structures are intact. IMPRESSION: No acute process. [facility], , 10/07/2024 11:40 AM
--- NOTE | 2024-10-07 11:49 | P.PN ---
Subjective Progress Note Date: 10/07/24 The patient is a 53-year-old female who follows in the office with Dr. NIMISHA Ojeda. Patient presented to the hospital with chest discomfort. She states this had been occurring over the last month. Yesterday she underwent coronary angiogram, which showed nonfunctioning radial graft with severe disease of the left circumflex. Attempted PCI, however unable to pass wire due to tortuosity. Over the last 24 hours we have adjusted her antihypertensive regimen and she has remained controlled. Patient interviewed and examined resting in bed. She denies any current chest pain or difficulty breathing at rest.TELEMETRY: Sinus rhythm overnight 10/06/2024 Patient states that she is still having chest pain that is a number 6 out of 10 while she has Nitropaste on. The chest pain occurs with movement and with exertion. She gives history that she had a CABG done 01/03/2024. She is not currently on heparin and the order will be discontinued. There apparently was some confusion as the patient thought she was undergoing a repeat cardiac catheterization today but the plan from cardiology was for discharge and follow- up with Dr. Ojeda as an outpatient. She has met with the patient liaison. At this time, plan is for Dr. NIMISHA Ojeda to discuss plans with the patient. 10/07/2024 Patient seen and examined. She is scheduled for cardiac intervention today around noon but with Dr. Ojeda and Dr. Olmstead. She states she is not having much chest pain today. She is ambulating in her room. Blood pressure 135/83, heart rate 74, pulse ox 100% on room air. Physical examination: GENERAL: Well-appearing, well-nourished and in no acute distress. NECK: Supple without JVD or thyromegaly. LUNGS: Breath sounds clear to auscultation bilaterally. Respiration equal and unlabored. No wheezes, rales or rhonchi. HEART: Regular rate and rhythm without murmurs, rubs or gallops. S1 and S2 heard. EXTREMITIES: Normal range of motion, no edema. No clubbing or cyanosis. Peripheral pulses intact and strong. All thank you IMPRESSION: Non-STEMI Severe disease of the left circumflex with nonfunctioning radial graft Status post cervical fusion on 09/10/2024 Coronary artery disease with previous CABG, 12/2023 Hypertension Hyperlipidemia Diabetes GERD History of rheumatoid arthritis COPD PLAN: Continue current cardiac medication regimen: Aspirin 81 mg daily, Lipitor 80 mg daily, Plavix 75 mg daily, Zetia 10 mg daily losartan 75 mg at bedtime, Toprol- XL 75 mg daily Continue patient on Nitropaste Increase Imdur to 60 mg daily Add Ranexa 500 mg twice daily Patient is scheduled for PCI today with Drs. Ojeda and Ishan. Nurse practitioner note has been reviewed, I agree with documented findings and plan of care. Patient was seen and examined. Objective - Vital Signs Vital signs: Vital Signs Temp 97.9 F 10/07/24 11:09 Pulse 62 10/07/24 11:09 Resp 20 10/07/24 11:09 BP 138/70 10/07/24 11:09 Pulse Ox 100 10/07/24 11:09 FiO2 Intake & Output 10/06/24 10/07/24 10/07/24 18:59 06:59 18:59 Intake Total 20 Balance 20 Weight 84.7 kg Intake: IV 20 Invasive Line 2 20 Other: Voiding Method Toilet Toilet # Voids 1 - Labs CBC & Chem 7: 10/06/24 14:33 10/06/24 14:33 Labs: Abnormal Lab Results - Last 24 Hours (Table) 10/06/24 10/06/24 10/06/24 Range/Units 14:33 16:12 20:03 Sodium 135 L (137-145) mmol/L Glucose 401 H (74-99) mg/dL POC Glucose (mg/dL) 427 H 391 H (70-110) mg/dL 10/07/24 Range/Units 06:14 Sodium (137-145) mmol/L Glucose (74-99) mg/dL POC Glucose (mg/dL) 340 H (70-110) mg/dL
[2024-10-07] MEDS: MIDAZOLAM 2 MG/2 ML VIAL IVP ONE ×2 (12:05→12:10)
[2024-10-07] MEDS: LIDOCAINE 1% INJ 10MG/ML (20 ML MDV) SQ ONE (12:07)
[2024-10-07] MEDS: HYDROmorphone 0.5 MG/0.5 ML SYRINGE IVP ONE (12:12)
[2024-10-07] MEDS: fentaNYL (PF) 50 MCG/ML 2 ML AMP IVP ONE ×2 (12:15→12:53)
[2024-10-07] MEDS: NITROGLYCERIN SL TABS 0.4 MG TAB SUBLINGUAL ONE (12:21)
[2024-10-07] MEDS: HEPARIN SODIUM 1,000 UN/ML (10ML VL) IVP ONE ×3 (12:27→12:48)
[2024-10-07] MEDS: NITROGLYCERIN 1000MCG/10ML SYRINGE INTRACORON ONE ×2 (12:45→12:53)
[2024-10-07] MEDS: IV FLUID CONTINUATION 850 ML IV ONE (12:47)
[2024-10-07] MEDS: IOPAMIDOL-370 100ML BTL INJ ONE (12:55)
[2024-10-07] MEDS: HEPARIN SODIUM,PORCINE (1 ML) 2,500 UNIT in SODIUM CHLORIDE 0.9% 250 ML IRRIGATION ONE (12:56)
[2024-10-07] MEDS: HEPARIN SODIUM,PORCINE 10,000 UNIT in SODIUM CHLORIDE 0.9% 1,000 ML IRRIGATION ONE (12:56)
[2024-10-07] MEDS: CLOPIDOGREL 75 MG TAB PO ONE (12:57)
[2024-10-07 13:48] LABS: Glucose,Whole Blood 192 mg/dL (70-110)
[2024-10-07] MEDS: SODIUM CHLORIDE 0.9% 1,000 ML IV SCH (14:04)
[2024-10-07 16:38] LABS: Glucose,Whole Blood 221 mg/dL (70-110)
[2024-10-07 19:52] LABS: Glucose,Whole Blood 169 mg/dL (70-110)
[2024-10-07] MEDS: INSULIN DETEMIR (LEVEMIR) 100 UNIT/ML SYR SQ SCH (21:44)
--- NOTE | 2024-10-07 23:58 | CC ---
CARDIAC CATHETERIZATION REPORT PROCEDURE: Percutaneous transluminal coronary angioplasty and stenting of circumflex marginal coronary artery with a drug-eluting stent. PERFORMED BY: Dr. Jarrett Ojeda. ASSISTED BY: Aniceto Olmstead DO CLINICAL INFORMATION: Ms. Eleazar Balbuena is a 53-year-old lady with type 2 diabetes, hypertension, hyperlipidemia, significant cervical spine disease, for which she had surgery. She also has significant CAD, had previous stenting of LAD and circumflex in the past. In November of this year, she underwent aortocoronary bypass surgery, came in with a non- ST-elevation NH and recurrent chest pain. Catheterization and attempted PTCA from last Sunday the revealed that she had a total occlusion of the radial graft to the obtuse marginal, but the vein graft to RCA and S[place] to LAD were patent, although there was good antegrade flow in the [place] vessels. I could not cross successfully with the wire. Therefore, we brought her back for the procedure today. Risks, benefits, options, rationale were explained. I saw the patient and explained to her the rationale at length. She understood all details and wished to proceed with the procedure. ANESTHESIA: Moderate conscious sedation time was 43 minutes. The patient was administered Versed and fentanyl. Oxygen saturation, hemodynamics and EKG were monitored closely. PROCEDURE NOTE: Under strict aseptic precautions and local anesthesia with a micropuncture needle technique, I gained access into the right femoral artery and a 6-[place] introducer was placed after using a 7-[place] dilator because of scar tissue. An Amplatz wire was used and the Stiff wire helped in placing the sheath. I used an XB 3.5 guide catheter of 6- [place] caliber to cannulate left coronary artery. We used a Whisper J long with a 45 degrees angle SuperCross and a GuideLiner. With this combination, I crossed the subtotal occlusion in the circumflex marginal and kept it in the inferior branch of the wire. Predilatation was performed with a 2.2 Trek balloon and subsequently with a 2.25 NC Trek balloon of 12 mm length. I then deployed a 2.5 caliber Xience stent of 8 mm. Excellent angiographic result was achieved without complication. The patient received heparin intravenously 8500 units. ACT was over 220. The patient was already on aspirin and Plavix. She received an additional 300 mg of Plavix. She will be on aspirin and Plavix without interruption for 1 year. Excellent angiographic result was achieved. The sheath was taken out and Angio-Seal device used to secure hemostasis and she was sent to the room in a stable condition. She will be discharged tomorrow if she remains stable. LYN / KOFIN: [id number] /
[2024-10-08 06:14] LABS: Glucose,Whole Blood 341 mg/dL (70-110)
[2024-10-08] MEDS ORDERED: INSULIN ASPART (NovoLOG) 100 UNIT/ML VIAL SQ SCH (07:30)
[2024-10-08 07:34] LABS: Basophils % (A) 0 %; Eosinophils # (A) 0.1 k/uL (0-0.7); Eosinophils % (A) 1 %; HCT 31.7 % (34.0-46.0); HGB 10.6 gm/dL (11.4-16.0); Lymphocytes # (A) 2.1 k/uL (1.0-4.8); Lymphocytes % (A) 24 %; MCH 30.2 pg (25.0-35.0); MCHC 33.4 g/dL (31.0-37.0); MCV 90.4 fL (80.0-100.0); Mean Platelet Volume 7.4; Monocytes # (A) 0.4 k/uL (0-1.0); Monocytes % (A) 4 %; Neutrophils % (A) 70 %; Platelet Count 187 k/uL (150-450); RBC 3.51 m/uL (3.80-5.40); RDW 14.4 % (11.5-15.5); WBC 8.6 k/uL (3.8-10.6)
[2024-10-08 07:47] LABS: African American GFR (CKD) >90 (>60 ml/min/1.73 sqM); Anion Gap 5 mmol/L; Blood Urea Nitrogen 13 mg/dL (7-17); Calcium 9.3 mg/dL (8.4-10.2); Carbon Dioxide 29 mmol/L (22-30); Chloride 101 mmol/L (98-107); Glucose 289 mg/dL (74-99); Non-African American GFR(CKD) >90 (>60 ml/min/1.73 sqM); Potassium 4.1 mmol/L (3.5-5.1); Sodium 135 mmol/L (137-145)
[2024-10-08] MEDS: ASPIRIN 81 MG PO SCH (08:55)
[2024-10-08 10:45] VITALS: PULSE 65; RESP 18
--- NOTE | 2024-10-08 10:55 | P.PN ---
Subjective Progress Note Date: 10/08/24 The patient is a 53-year-old female who follows in the office with Dr. INMISHA Ojeda. Patient presented to the hospital with chest discomfort. She states this had been occurring over the last month. Yesterday she underwent coronary angiogram, which showed nonfunctioning radial graft with severe disease of the left circumflex. Attempted PCI, however unable to pass wire due to tortuosity. Over the last 24 hours we have adjusted her antihypertensive regimen and she has remained controlled. Patient interviewed and examined resting in bed. She denies any current chest pain or difficulty breathing at rest.TELEMETRY: Sinus rhythm overnight 10/06/2024 Patient states that she is still having chest pain that is a number 6 out of 10 while she has Nitropaste on. The chest pain occurs with movement and with exertion. She gives history that she had a CABG done 01/03/2024. She is not currently on heparin and the order will be discontinued. There apparently was some confusion as the patient thought she was undergoing a repeat cardiac catheterization today but the plan from cardiology was for discharge and follow- up with Dr. Ojeda as an outpatient. She has met with the patient liaison. At this time, plan is for Dr. NIMISHA Ojeda to discuss plans with the patient. 10/07/2024 Patient seen and examined. She is scheduled for cardiac intervention today around noon but with Dr. Ojeda and Dr. Olmstead. She states she is not having much chest pain today. She is ambulating in her room. Blood pressure 135/83, heart rate 74, pulse ox 100% on room air. 10/08/2024 Patient seen and examined. Patient does have some tenderness in the right groin for which an ultrasound will be ordered. Yesterday, patient went back to the [facility] and underwent angioplasty and stenting of the circumflex marginal co ronary artery with ARTHUR. Patient denies having any chest pain. She denies shortness of breath. Blood pressure 161/67, heart rate 65, pulse ox 100% on room air. Repeat blood work reveals hemoglobin 10.6, BUN 13 and creatinine 0.65 Physical examination: GENERAL: Well-appearing, well-nourished and in no acute distress. NECK: Supple without JVD or thyromegaly. LUNGS: Breath sounds clear to auscultation bilaterally. Respiration equal and unlabored. No wheezes, rales or rhonchi. HEART: Regular rate and rhythm without murmurs, rubs or gallops. S1 and S2 heard. EXTREMITIES: Normal range of motion, no edema. No clubbing or cyanosis. Peripheral pulses intact and strong. Right groin tenderness, no bleeding, no hematoma. All thank you IMPRESSION: Non-STEMI Severe disease of the left circumflex with nonfunctioning radial graft Status post cervical fusion on 09/10/2024 Coronary artery disease with previous CABG, 12/2023 Hypertension Hyperlipidemia Diabetes GERD History of rheumatoid arthritis COPD PLAN: Continue current cardiac medication regimen: Aspirin 81 mg daily, Lipitor 80 mg daily, Plavix 75 mg daily, Zetia 10 mg daily hydrochlorothiazide 25 mg daily, losartan 75 mg at bedtime, Toprol-XL 75 mg daily Discontinue Nitropaste Continue increased dose of Imdur 60 mg daily Continue Ranexa 500 mg twice daily Obtain ultrasound of the right groin. If this is negative, patient is cleared for discharge and will follow-up in the office with Dr. NIMISHA Ojeda. Nurse practitioner note has been reviewed, I agree with documented findings and plan of care. Patient was seen and examined. Objective - Vital Signs Vital signs: Vital Signs Temp 98.6 F 10/08/24 03:54 Pulse 77 10/08/24 03:54 Resp 20 10/08/24 03:54 BP 101/67 10/08/24 03:54 Pulse Ox 100 10/08/24 03:54 FiO2 Intake & Output 10/07/24 10/08/24 10/08/24 18:59 06:59 18:59 Intake Total 475 Output Total 800 0 Balance -325 0 Intake: IV 100 Intake, IV Titration 375 Amount Sodium Chloride 0.9% 1, 375 000 ml @ 75 mls/hr IV . [id number] [facility] Rx#:[id number] Output: Urine 800 0 Other: Voiding Method External Catheter Toilet External Catheter - Labs CBC & Chem 7: 10/08/24 06:39 10/08/24 06:39 Labs: Abnormal Lab Results - Last 24 Hours (Table) 10/07/24 10/07/24 10/07/24 Range/Units 13:46 16:37 19:50 RBC (3.80-5.40) m/uL Hgb (11.4-16.0) gm/dL Hct (34.0-46.0) % Sodium (137-145) mmol/L Glucose (74-99) mg/dL POC Glucose (mg/dL) 192 H 221 H 169 H (70-110) mg/dL 10/08/24 10/08/24 10/08/24 Range/Units 06:13 06:39 06:39 RBC 3.51 L (3.80-5.40) m/uL Hgb 10.6 L (11.4-16.0) gm/dL Hct 31.7 L (34.0-46.0) % Sodium 135 L (137-145) mmol/L Glucose 289 H (74-99) mg/dL POC Glucose (mg/dL) 341 H (70-110) mg/dL
--- NOTE | 2024-10-08 11:13 | US ---
EXAMINATION TYPE: US lower ext pseudo artery RT DATE OF EXAM: 10/08/2024 COMPARISON: NONE CLINICAL INDICATION: Female, 53 years old with history of tender, LHC; Pain right groin had cath done yesterday. TECHNIQUE:: Grayscale, color Doppler and spectral Doppler imaging performed of the groin, post cardia c catheter to assess for pseudoaneurysm. FINDINGS: SIDE PERFORMED: Right Color and Waveform Doppler performed to assess for the presence of pseudoaneurysm; Is there ultrasound evidence of a pseudoaneurysm: no, neck: Is there evidence of AV shunting: no Is there a fluid collection present: no IMPRESSION: No evidence for pseudoaneurysm at this time. [facility], , 10/08/2024 11:10 AM
[2024-10-08 11:41] LABS: Glucose,Whole Blood 281 mg/dL (70-110)
[2024-10-08 12:06] VITALS: BP 99/55; TEMP 96.4
--- NOTE | 2024-10-08 19:33 | P.DS ---
Providers Date of admission: 10/01/24 20:24 Expected date of discharge: 10/08/24 Attending physician: Helen Clayton MD Consults: 10/01/24 20:23 Consult Physician Routine Consulting Provider: [facility] Consult Reason/Comments: nstemi Do you want consulting provider notified?: Yes Primary care physician: [facility] Course: 53-year-old female with past medical history of CAD status post stents, CABG, EF 55 to 60%, COPD, asthma, diabetes, HLD, history of PA, history of RA, history of thyroid disease who presented to the ER with chest pain that has been going on for the past several weeks, patient stated that the chest pain and tightness are not going since her neck surgery in August, and get worse with eating and exertion. Patient had heart cath on 10/03/2024 with unsuccessful PCI to the left circumflex, repeat heart cath planned for 10/07. She underwent repeat cath on 10/08 with stenting of the circumflex marginal coronary artery with ARTHRU. 10/08 Patient was seen and examined. No acute events overnight. Feeling well. No chest pain. Wants to go home. Prescription sent for Losartan, Imdur, Metoprolol and Ranexa. Follow up with Cardiology pn 10/13 and PCP on 10/09. General: non toxic, no distress, appears at stated age Derm: warm, dry Head: atraumatic, normocephalic, symmetric Eyes: EOMI, no lid lag, anicteric sclera Mouth: no lip lesion, mucus membranes moist Cardiovascular: S1S2 reg, no murmur Lungs: CTA bilateral, no rhonchi, no rales , no accessory muscle use Ext: no gross muscle atrophy, no edema, no contractures Neuro: no focal neuro deficits Psych: Alert, oriented, appropriate affect Discharge Diagnosis: CAD with severe disease of the left circumflex with nonfunctioning radial graft S/p CABG 12/2023 Controlled diabetes COPD, not in exacerbation GERD Hyperlipidemia Rheumatoid arthritis Hypertension This complex discharge took 35 minutes to complete. Patient Condition at Discharge: Stable Plan - Discharge Summary Discharge Rx Participant: No New Discharge Prescriptions: New Losartan [Cozaar] 75 mg PO HS #90 tab Isosorbide Mononitrate ER [Imdur] 60 mg PO DAILY #30 tab Metoprolol Succinate (ER) [Toprol XL] 75 mg PO DAILY #45 tab Ranolazine [Ranexa] 500 mg PO Q12HR #60 tab Continue Pantoprazole [Protonix] 40 mg PO DAILY Meenakshi Multivitamin Gummy 2 tab PO DAILY Ferrous Sulfate [Iron (65 MG Elemental)] 325 mg PO BID tiZANidine [Zanaflex] 2 mg PO BID Lubiprostone [Amitiza] 24 mcg PO TID Hydrocortisone [Cortef] 10 mg PO DAILY #60 tab Dapagliflozin Propanediol [Farxiga] 10 mg PO DAILY #90 tab Estradiol Cream [Estrace Cream 0.01%] 1 applic VAGINAL DAILY PRN #1 each PRN Reason: vaginal dryness or itching oxyCODONE HCL [OxyIR] 5 mg PO Q4H PRN PRN Reason: Pain metFORMIN HCL [Glucophage] 1,000 mg PO BID hydroCHLOROthiazide 25 mg PO DAILY Gabapentin [Neurontin] 300 mg PO BID Aspirin 81 mg PO DAILY Clopidogrel [Plavix] 75 mg PO DAILY Atorvastatin [Lipitor] 80 mg PO HS HYDROcodone/APAP 10-325MG [Levering 10-325] 1 tab PO Q4-6H PRN #40 tab PRN Reason: Pain tiZANidine [Zanaflex] 2 mg PO TID PRN #40 tab PRN Reason: Muscle Spasm Hydrocortisone [Cortef] 5 mg PO HS #60 tab Ezetimibe [Zetia] 10 mg PO DAILY #90 tab Nitroglycerin Sl Tabs [Nitrostat] 0.4 mg SUBLINGUAL Q5M PRN PRN Reason: Chest Pain Sennosides-Docusate Sodium [Senokot-S] 2 tab PO DAILY Ibuprofen [Motrin] 800 mg PO TID PRN PRN Reason: Moderate Pain (Scale 4 To 6) Discontinued amLODIPine [Norvasc] 2.5 mg PO DAILY Metoprolol Succinate (ER) [Toprol XL] 50 mg PO DAILY Isosorbide Mononitrate ER [Imdur] 30 mg PO DAILY Losartan [Cozaar] 25 mg PO HS Discharge Medication List metFORMIN HCL [Glucophage] 1,000 mg PO BID 01/19/22 [History] Pantoprazole [Protonix] 40 mg PO DAILY 03/01/24 [History] Ferrous Sulfate [Iron (65 MG Elemental)] 325 mg PO BID 05/07/24 [History] Gabapentin [Neurontin] 300 mg PO BID 05/07/24 [History] Meenaksih Multivitamin Gummy 2 tab PO DAILY 05/07/24 [History] hydroCHLOROthiazide 25 mg PO DAILY 05/07/24 [History] Aspirin 81 mg PO DAILY 09/05/24 [History] Atorvastatin [Lipitor] 80 mg PO HS 09/05/24 [History] Clopidogrel [Plavix] 75 mg PO DAILY 09/05/24 [History] Lubiprostone [Amitiza] 24 mcg PO TID 09/05/24 [History] tiZANidine [Zanaflex] 2 mg PO BID 09/05/24 [History] Dapagliflozin Propanediol [Farxiga] 10 mg PO DAILY #90 tab 09/12/24 [Rx] Ezetimibe [Zetia] 10 mg PO DAILY #90 tab 09/12/24 [Rx] HYDROcodone/APAP 10-325MG [Levering 10-325] 1 tab PO Q4-6H PRN #40 tab 09/12/24 [Rx] Hydrocortisone [Cortef] 5 mg PO HS #60 tab 09/12/24 [Rx] Hydrocortisone [Cortef] 10 mg PO DAILY #60 tab 09/12/24 [Rx] tiZANidine [Zanaflex] 2 mg PO TID PRN #40 tab 09/12/24 [Rx] Nitroglycerin Sl Tabs [Nitrostat] 0.4 mg SUBLINGUAL Q5M PRN 09/14/24 [History] Sennosides-Docusate Sodium [Senokot-S] 2 tab PO DAILY 09/14/24 [History] Estradiol Cream [Estrace Cream 0.01%] 1 applic VAGINAL DAILY PRN #1 each 09/16/24 [Rx] Ibuprofen [Motrin] 800 mg PO TID PRN 10/01/24 [History] oxyCODONE HCL [OxyIR] 5 mg PO Q4H PRN 10/01/24 [History] Isosorbide Mononitrate ER [Imdur] 60 mg PO DAILY #30 tab 10/08/24 [Rx] Losartan [Cozaar] 75 mg PO HS #90 tab 10/08/24 [Rx] Metoprolol Succinate (ER) [Toprol XL] 75 mg PO DAILY #45 tab 10/08/24 [Rx] Ranolazine [Ranexa] 500 mg PO Q12HR #60 tab 10/08/24 [Rx] Follow up Appointment(s)/Referral(s): Will Ojeda MD [STAFF PHYSICIAN] - 10/13/24 8:30 am [facility], [NON-STAFF] - [facility] [Primary Care Provider] - 10/09/24 1:00 pm Patient Instructions/Handouts: *Surgery [facility] - After Heart Catheterization - Senior Master Scheduler Instructions Discharge Disposition: HOME SELF-CARE
--- NOTE | 2024-10-09 11:23 | CDI ---
Documentation Clarification Form Date: 10/09/2024 11:09:45 AM From: Mirlande Alvarado Admit Date: 10/01/2024 08:24:00 PM Patient Name: Eleazar Balbuena Visit Number: [id number] Discharge Date: 10/08/2024 02:01:00 PM ATTENTION: The Clinical Documentation Specialists (CDI) and [facility] Coding Staff appreciate your assistance in clarifying documentation. Please respond to the clarification below the line at the bottom and electronically sign. The CDI & [facility] Coding staff will review the response and follow-up if needed. Please note: Queries are made part of the Legal Health Record. If you have any questions, please contact the author of this message via ITS. Doctor/Provider: Clifford Burton NSTEMI is documented in H and P and PN's 10/06 and 10/07 and ED notes, but is not noted in subsequent documentation. Clarification is requested. History/Risk Factors: CAD history of CABG and previous stent. Clinical Indicators: Elevated troponins .071, .058 and .043 Treatment: Heparin, cardiac cath and PTCA Please clarify if the NSTEMI is: [ ] NSTEMI confirmed, remains under treatment [ x ] NSTEMI confirmed, resolved after pTCA [ ] NSTEMI ruled out [ ] Other condition, please specify [ ] Unable to determine MTDD
== END 2024-10-08 14:01 | disposition home or self-care (01) | DRG 174 ==
LOC: EC 17:50 → 3SCARD 20:24 → UNDODISIN 10-06 15:03
PROVIDERS: ADMIT Internal Medicine; ATTEND Internal Medicine
PROC: B2131ZZ Fluoroscopy of Multiple Coronary Artery Bypass Grafts using Low Osmolar Contrast (ICD-10-PCS; 2024-10-03)
PROC: 4A023N7 Measurement of Cardiac Sampling and Pressure, Left Heart, Percutaneous Approach (ICD-10-PCS; 2024-10-03)
PROC: B2151ZZ Fluoroscopy of Left Heart using Low Osmolar Contrast (ICD-10-PCS; 2024-10-03)
PROC: B2121ZZ Fluoroscopy of Single Coronary Artery Bypass Graft using Low Osmolar Contrast (ICD-10-PCS; principal; 2024-10-07 08:30)
PROC: 02W Heart and Great Vessels, Revision (ICD-10-PCS; principal; 2024-10-07 08:30)
PROC: 4A023N7 Measurement of Cardiac Sampling and Pressure, Left Heart, Percutaneous Approach (ICD-10-PCS; principal; 2024-10-07 08:30)
DX: I21.4 Non-ST elevation (NSTEMI) myocardial infarction (principal); T82.898A Other specified complication of vascular prosthetic devices, implants and grafts, initial encounter; Z87.891 Personal history of nicotine dependence; E11.65 Type 2 diabetes mellitus with hyperglycemia; E78.5 Hyperlipidemia, unspecified; F32.A Depression, unspecified; F41.9 Anxiety disorder, unspecified; G89.29 Other chronic pain; I10 Essential (primary) hypertension; I25.10 Atherosclerotic heart disease of native coronary artery without angina pectoris; I25.2 Old myocardial infarction; J44.89 Other specified chronic obstructive pulmonary disease; K21.9 Gastro-esophageal reflux disease without esophagitis; K29.50 Unspecified chronic gastritis without bleeding; E07.9 Disorder of thyroid, unspecified; E11.40 Type 2 diabetes mellitus with diabetic neuropathy, unspecified; K59.00 Constipation, unspecified; M06.9 Rheumatoid arthritis, unspecified; M54.12 Radiculopathy, cervical region; Z20.822 Contact with and (suspected) exposure to COVID-19; Z98.1 Arthrodesis status; Z79.02 Long term (current) use of antithrombotics/antiplatelets; Z79.4 Long term (current) use of insulin; Z79.82 Long term (current) use of aspirin; Z79.84 Long term (current) use of oral hypoglycemic drugs; Z79.899 Other long term (current) drug therapy; Z91.119 Patient's noncompliance with dietary regimen due to unspecified reason; Z91.148 Patient's other noncompliance with medication regimen for other reason; Z53.09 Procedure and treatment not carried out because of other contraindication; Z28.310 Unvaccinated for COVID-19; Z28.21 Immunization not carried out because of patient refusal; Z91.010 Allergy to peanuts
CPT/HCPCS: 36410; 36415; 71045; 71046; 76937; 80048; 80053; 80061; 81003; 83036; 83690; 83735; 84132; 84484; 85025; 85027; 85379; 85610; 85730; 87636; 93005; 93459; 93975; 94760; 96361; 96365; 96366; 96375; 99291

== ENCOUNTER 2024-10-30 21:42 | Observation (INO) | payer OTHER ==
--- NOTE | 2024-10-30 22:44 | XR ---
EXAMINATION TYPE: XR chest 2V DATE OF EXAM: 10/30/2024 10:40 PM COMPARISON: Chest x-ray October 07, 2024 CLINICAL INDICATION: Female, 53 years old with history of Chest Pain, TECHNIQUE: Frontal and lateral views of the chest are obtained. FINDINGS: Overlying sternal wires and mediastinal clips along with left atrial appendage clip are al l redemonstrated. Overlying bra strap and metallic nipple ornaments are again seen. There is no suspi cious new focal air space opacity, pleural effusion, or pneumothorax seen. The cardiac silhouette si ze is stable and within normal limits. The osseous structures are intact. Coronary artery stent is redemonstrated. IMPRESSION: No acute process. [facility] Rose Moore, , 10/30/2024 10:42 PM
[2024-10-30] MEDS: ASPIRIN 81 MG PO STA (23:57)
[2024-10-31 00:02] LABS: Eosinophils % (A) 1 %; HCT 37.7 % (34.0-46.0); HGB 12.2 gm/dL (11.4-16.0); Hypochromasia Slight; Lymphocytes % (A) 38 %; MCH 29.6 pg (25.0-35.0); MCHC 32.3 g/dL (31.0-37.0); MCV 91.6 fL (80.0-100.0); Mean Platelet Volume 7.2; Monocytes % (A) 4 %; Neutrophils % (A) 54 %; Platelet Count 236 k/uL (150-450); RBC 4.11 m/uL (3.80-5.40); RDW 13.7 % (11.5-15.5); WBC 7.1 k/uL (3.8-10.6)
[2024-10-31 00:03] LABS: Basophils % (A) 0 %; Eosinophils # (A) 0.1 k/uL (0-0.7); Lymphocytes # (A) 2.7 k/uL (1.0-4.8); Monocytes # (A) 0.3 k/uL (0-1.0); Neutrophils # (A) 3.8 k/uL (1.3-7.7)
[2024-10-31 00:04] LABS: ALT 21 U/L (4-34); African American GFR (CKD) >90 (>60 ml/min/1.73 sqM); Albumin 3.8 g/dL (3.5-5.0); Anion Gap 7 mmol/L; Blood Urea Nitrogen 12 mg/dL (7-17); Calcium 9.6 mg/dL (8.4-10.2); Carbon Dioxide 22 mmol/L (22-30); Chloride 111 mmol/L (98-107); Glucose 173 mg/dL (74-99); Non-African American GFR(CKD) >90 (>60 ml/min/1.73 sqM); Sodium 140 mmol/L (137-145); Total Bilirubin 0.4 mg/dL (0.2-1.3); Total Protein 6.4 g/dL (6.3-8.2)
[2024-10-31 00:05] LABS: AST 25 U/L (14-36); Alkaline Phosphatase 130 U/L (38-126); Magnesium 1.8 mg/dL (1.6-2.3)
[2024-10-31 00:12] LABS: INR 0.9 (<1.2); Partial Thromboplastin Time 21.3 sec (22.0-30.0)
[2024-10-31] MEDS ORDERED: NITROGLYCERIN SL TABS 0.4 MG TAB SUBLINGUAL PRN (00:39)
[2024-10-31] MEDS ORDERED: NALOXONE 0.4 MG/ML 1 ML VIAL IV PRN (02:23)
[2024-10-31] MEDS ORDERED: ACETAMINOPHEN TAB 325 MG TAB PO PRN (02:23)
--- NOTE | 2024-10-31 02:26 | ED ---
General Adult HPI - General Chief complaint: Shortness of Breath Stated complaint: Hypertension Time Seen by Provider: 10/30/24 21:57 Source: patient, EMS Mode of arrival: EMS Limitations: no limitations - History of Present Illness Initial comments: 53-year-old female presenting with multiple complaints. History of CAD with stenting and previous CABG. COPD, diabetes, hypertension, hyperlipidemia, chronic neck pain. Patient states that she woke up from a nap this evening having chest tightness. Pain is worse when she moves or exerts herself. She denies associated shortness of breath. States that she feels generally weak as well. No nausea vomiting or abdominal pain. Patient also is complaining of some dysuria and discomfort in the vaginal region. States it feels similar to previous UTIs. No flank pain, fever, suprapubic pain, hematuria. Patient currently has a Merocel placed. This was [facility] by [facility] last night. Patient states that earlier she was having some bleeding from the opposite nostril, she is having no nosebleeding at this time. There is no leaking around the nasal packing. Patient is worried that her nosebleed is why she feels so tired - Related Data Home Medications Medication Instructions Recorded Confirmed metFORMIN HCL [Glucophage] 1,000 mg PO BID 01/19/22 10/31/24 Aspirin 81 mg PO DAILY 09/05/24 10/31/24 Atorvastatin [Lipitor] 80 mg PO HS 09/05/24 10/31/24 Clopidogrel [Plavix] 75 mg PO DAILY 09/05/24 10/31/24 Lubiprostone [Amitiza] 24 mcg PO BID 09/05/24 10/31/24 Isosorbide Mononitrate ER [Imdur] 15 mg PO DAILY 10/31/24 10/31/24 Losartan [Cozaar] 25 mg PO DAILY 10/31/24 10/31/24 Metoprolol Succinate (ER) [Toprol 50 mg PO DAILY 10/31/24 10/31/24 XL] Plecanatide [Trulance] 3 mg PO DAILY 10/31/24 10/31/24 amLODIPine [Norvasc] 2.5 mg PO DAILY 10/31/24 10/31/24 Previous Rx's Medication Instructions Recorded Dapagliflozin Propanediol [Farxiga] 10 mg PO DAILY #90 tab 09/12/24 Ezetimibe [Zetia] 10 mg PO DAILY #90 tab 09/12/24 Hydrocortisone [Cortef] 10 mg PO DAILY #60 tab 09/12/24 Acetaminophen Tab [Tylenol] 650 mg PO Q6HR PRN tab 10/31/24 Allergies Allergy/AdvReac Type Severity Reaction Status Date / Time peanut Allergy HIVES Verified 10/31/24 07:25 rice Allergy Rash/Hives Verified 10/31/24 07:25 seasonal Allergy Rash/Hives Uncoded 10/31/24 07:25 Review of Systems ROS Statement: Those systems with pertinent positive or pertinent negative responses have been documented in the HPI. ROS Other: All systems not noted in ROS Statement are negative. Past Medical History Past Medical History: Asthma, Coronary Artery Disease (CAD), COPD, Diabetes Mellitus, Hyperlipidemia, Hypertension, Myocardial Infarction (MO), Musculoskeletal Disorder, Rheumatoid Arthritis (RA), Thyroid Disorder Additional Past Medical History / Comment(s): Back Pain, right shoulder pain, Hx Pituitary Tumor, BENIGN. Thyroid disorder. 3 heart attacks-most recent March 2022, 3 stents total, neuropathy; left-sided pleural effusion Last Myocardial Infarction Date:: 01/03/2024 History of Any Multi-Drug Resistant Organisms: None Reported Past Surgical History: Section, Coronary Bypass/CABG, Heart Catheterization With Stent, Tubal Ligation Additional Past Surgical History / Comment(s): Pituitary Tumor Removed. colonoscopy, PA[facility] PROCEDURES stents x3 c section x4; three-vessel off- pump CABG January 04, 2024; left-sided thoracentesis with removal of 950 mL fluid on January 22, 2024, cervical fusion C3-C7 09/10/2024 Past Anesthesia/Blood Transfusion Reactions: No Reported Reaction Date of Last Stent Placement:: March 2022 Past Psychological History: Anxiety, Depression Smoking Status: Former smoker Past Alcohol Use History: None Reported Past Drug Use History: None Reported - Past Family History Mother History Unknown: Yes Family Medical History: Deep Vein Thrombosis (DVT) Additional Family Medical History / Comment(s): Mother is alive at age 67 with history of coronary artery disease and three-vessel CABG. Daughter(s) History Unknown: Yes Family Medical History: Deep Vein Thrombosis (DVT) Additional Family Medical History / Comment(s): Patient has a total of 9 children with no major medical problems. Father History Unknown: Yes Family Medical History: Cancer Additional Family Medical History / Comment(s): Father is alive with no history of coronary artery disease. History of Prostate Cancer Sister(s) History Unknown: Yes Additional Family Medical History / Comment(s): The patient has 4 sisters and 1 brother. One sister had a myocardial infraction at age 40. General Exam Limitations: no limitations General appearance: alert, in no apparent distress Head exam: Present: atraumatic, normocephalic, normal inspection Eye exam: Present: normal appearance, EOMI Neck exam: Present: normal inspection. Absent: meningismus Respiratory exam: Present: normal lung sounds bilaterally, chest wall tenderness. Absent: respiratory distress, wheezes, rales, rhonchi, stridor Cardiovascular Exam: Present: regular rate, normal rhythm, normal heart sounds. Absent: systolic murmur, diastolic murmur, rubs, gallop, clicks Neurological exam: Present: alert, oriented X3 Psychiatric exam: Present: normal affect, normal mood Skin exam: Present: warm, dry Course Vital Signs 10/30/24 10/30/24 10/31/24 21:48 23:56 02:00 Temperature 97.0 F L Pulse Rate 71 76 80 Respiratory 18 18 18 Rate Blood Pressure 150/68 146/67 145/80 O2 Sat by Pulse 100 97 96 Oximetry 10/31/24 10/31/24 10/31/24 03:30 06:43 09:00 Temperature 97.5 F L Pulse Rate 71 60 61 Respiratory 20 20 17 Rate Blood Pressure 148/76 143/75 150/82 O2 Sat by Pulse 100 98 98 Oximetry 10/31/24 12:00 Temperature Pulse Rate 82 Respiratory 18 Rate Blood Pressure 150/82 O2 Sat by Pulse 97 Oximetry Medical Decision Making - Medical Decision Making Was pt. sent in by a medical professional or institution (, PA, DI[employer], urgent care, hospital, or senior care...) When possible be specific @ -No Did you speak to anyone other than the patient for history (EMS, parent, family, police, friend...)? What history was obtained from this source @ -No Did you review nursing and triage notes (agree or disagree)? Why? @ -I reviewed and agree with nursing and triage notes Were old charts reviewed (outside hosp., previous admission, EMS record, old EKG, old radiological studies, urgent care reports/EKG's, senior care records)? Report findings @ -No old charts were reviewed Differential Diagnosis (chest pain, altered mental status, abdominal pain women, abdominal pain men, vaginal bleeding, weakness, fever, dyspnea, syncope, headache, dizziness, GI bleed, back pain, seizure, CVA, palpatations, mental health, musculoskeletal)? @ -Differential chest pain EKG interpreted by me (3pts min.). @ -EKG shows sinus rhythm ventricular rate 62. NC interval 147. QRS 102. QT 417. QTc 422. X-rays interpreted by me (1pt min.). @ -No acute process on chest x-ray CT interpreted by me (1pt min.). @ -None done U/S interpreted by me (1pt. min.). @ -None done What testing was considered but not performed or refused? (CT, X-rays, U/S, labs)? Why? @ -None What meds were considered but not given or refused? Why? @ -None Did you discuss the management of the patient with other professionals (professionals i.e. , PA, [employer], lab, RT, psych nurse, social worker palliative care, mold maker helper, teacher, identification officer, case picker)? Give summary @ -Spoke with Dr. Clayton who accepts admission Was smoking cessation discussed for >3mins.? @ -No Was critical care preformed (if so, how long)? @ -No Were there social determinants of health that impacted care today? How? (Homelessness, low income, unemployed, alcoholism, drug addiction, transportation, low edu. Level, literacy, decrease access to med. care, nursing home, rehab)? @ -No Was there de-escalation of care discussed even if they declined (Discuss DNR or withdrawal of care, Hospice)? DNR status @ -No What co-morbidities impacted this encounter? (DM, HTN, Smoking, COPD, CAD, Cancer, CVA, ARF, Chemo, Hep., AIDS, mental health diagnosis, sleep apnea, morbid obesity)? @ -CAD, diabetes, hypertension, obesity Was patient admitted / discharged? Hospital course, mention meds given and route, prescriptions, significant lab abnormalities, going to OR and other pertinent info. @ -53-year-old female presenting with chief complaint of chest pain. History and physical examination are conducted. The pain is reproducible on exam. No leukocytosis or anemia. Troponin is 0.014. Chest x-ray shows no acute process. EKG shows no acute findings. Patient was treated with aspirin. Patient refused nitro, states that she was not having chest pain at the time. Patient recently had stents placed on 10/07, given her recent procedure she will be admitted for evaluation by cardiology. Patient is agreeable with this plan. I discussed this case my attending Dr. Whitt. Patient is complaining of some discomfort with urination, UA is pending. Patient currently has a merocel in place that was placed yesterday at [facility], patient has had no nosebleed while here and there is no leaking around the nasal packing. Undiagnosed new problem with uncertain prognosis? @ -No Drug Therapy requiring intensive monitoring for toxicity (Heparin, Nitro, Insulin, Cardizem)? @ -No Were any procedures done? @ -No Diagnosis/symptom? @ -Chest pain Acute, or Chronic, or Acute on Chronic? @ -Acute Uncomplicated (without systemic symptoms) or Complicated (systemic symptoms)? @ -Complicated Side effects of treatment? @ -No Exacerbation, Progression, or Severe Exacerbation? @ -No Poses a threat to life or bodily function? How? (Chest pain, USA, MO, pneumonia, PE, COPD, DKA, ARF, appy, cholecystitis, CVA, Diverticulitis, Homicidal, Suicidal, threat to staff... and all critical care pts) @ -Yes - Lab Data Result diagrams: 10/30/24 23:35 10/30/24 23:35 Lab Results 10/30/24 10/30/24 10/30/24 Range/Units 23:35 23:35 23:35 WBC 7.1 (3.8-10.6) k/uL RBC 4.11 (3.80-5.40) m/uL Hgb 12.2 (11.4-16.0) gm/dL Hct 37.7 (34.0-46.0) % MCV 91.6 (80.0-100.0) fL MCH 29.6 (25.0-35.0) pg MCHC 32.3 (31.0-37.0) g/dL RDW 13.7 (11.5-15.5) % Plt Count 236 (150-450) k/uL MPV 7.2 Neutrophils % 54 % Lymphocytes % 38 % Monocytes % 4 % Eosinophils % 1 % Basophils % 0 % Neutrophils # 3.8 (1.3-7.7) k/uL Lymphocytes # 2.7 (1.0-4.8) k/uL Monocytes # 0.3 (0-1.0) k/uL Eosinophils # 0.1 (0-0.7) k/uL Basophils # 0.0 (0-0.2) k/uL Hypochromasia Slight PT 10.0 (10.0-12.5) sec INR 0.9 (<1.2) APTT 21.3 L (22.0-30.0) sec Sodium 140 (137-145) mmol/L Potassium 4.0 (3.5-5.1) mmol/L Chloride 111 H (98-107) mmol/L Carbon Dioxide 22 (22-30) mmol/L Anion Gap 7 mmol/L BUN 12 (7-17) mg/dL Creatinine 0.56 (0.52-1.04) mg/dL Est GFR (CKD-EPI)AfAm >90 (>60 ml/min/1.73 sqM) Est GFR (CKD-EPI)NonAf >90 (>60 ml/min/1.73 sqM) Glucose 173 H (74-99) mg/dL Calcium 9.6 (8.4-10.2) mg/dL Magnesium 1.8 (1.6-2.3) mg/dL Total Bilirubin 0.4 (0.2-1.3) mg/dL AST 25 (14-36) U/L ALT 21 (4-34) U/L Alkaline Phosphatase 130 H (38-126) U/L Troponin I (0.000-0.034) ng/mL Total Protein 6.4 (6.3-8.2) g/dL Albumin 3.8 (3.5-5.0) g/dL 10/30/24 Range/Units 23:35 WBC (3.8-10.6) k/uL RBC (3.80-5.40) m/uL Hgb (11.4-16.0) gm/dL Hct (34.0-46.0) % MCV (80.0-100.0) fL MCH (25.0-35.0) pg MCHC (31.0-37.0) g/dL RDW (11.5-15.5) % Plt Count (150-450) k/uL MPV Neutrophils % % Lymphocytes % % Monocytes % % Eosinophils % % Basophils % % Neutrophils # (1.3-7.7) k/uL Lymphocytes # (1.0-4.8) k/uL Monocytes # (0-1.0) k/uL Eosinophils # (0-0.7) k/uL Basophils # (0-0.2) k/uL Hypochromasia PT (10.0-12.5) sec INR (<1.2) APTT (22.0-30.0) sec Sodium (137-145) mmol/L Potassium (3.5-5.1) mmol/L Chloride (98-107) mmol/L Carbon Dioxide (22-30) mmol/L Anion Gap mmol/L BUN (7-17) mg/dL Creatinine (0.52-1.04) mg/dL Est GFR (CKD-EPI)AfAm (>60 ml/min/1.73 sqM) Est GFR (CKD-EPI)NonAf (>60 ml/min/1.73 sqM) Glucose (74-99) mg/dL Calcium (8.4-10.2) mg/dL Magnesium (1.6-2.3) mg/dL Total Bilirubin (0.2-1.3) mg/dL AST (14-36) U/L ALT (4-34) U/L Alkaline Phosphatase (38-126) U/L Troponin I 0.014 (0.000-0.034) ng/mL Total Protein (6.3-8.2) g/dL Albumin (3.5-5.0) g/dL Disposition Clinical Impression: Chest pain Disposition: ADMITTED IP TO THIS HOSP Condition: Fair
--- NOTE | 2024-10-31 03:38 | P.HPIM ---
History of Present Illness H&P Date: 10/31/24 Chief Complaint: Chest Pain Patient is a 53-year-old female with past medical history of coronary artery disease with previous CABG in 12/2023, history of [place] (most recent last September 2024), diabetes, GERD, rheumatoid arthritis, COPD, and cervical radiculopathy who presented to the ED with nonradiating centralized chest pain that started yesterday. She reports it felt like a tightness and she did have some shortness of breath. Patient states the chest pain and shortness of breath are not present at rest and only occur when she starts to exert herself. She is also complaining of overall malaise. Patient states she went to [facility] last night for nosebleed and Merocel was placed. She is also complaining of some itchiness and discomfort in the vaginal region and feels it is similar to when she had UTIs in the past. She denies any flank pain, fever, hematuria, urgency, or frequency. Chart review revealed patient had admission last month for NSTEMI. Patient had unsuccessful PCI to the left circumflex on 10/03/2024 and then underwent repeat catheterization on 10/08/2024 with stenting of the circumflex marginal coronary artery. Vitals on admission temperature 97, heart rate 71 bpm, respiratory rate 18, blood pressure 150/68, saturating 100% on room air EKG independently interpreted as sinus rhythm with ventricular rate 62 bpm and QTc of [address] changes CXR shows no acute process Labs on admission show WBC 7.1, hemoglobin 12.2, platelets 236. PT 10, INR 0.9, PTT 21.3. Sodium 140, potassium 4, chloride 111, bicarb 22, BUN 12, creatinine 0.56, glucose 173. Review of systems: Pertinent positives and negatives as discussed in HPI, a complete review of systems was performed and all other systems are negative. Social history: Tobacco: former Alcohol: none Recreational drugs: none Travel: none Sick contacts: none Physical examination: Vital signs reviewed General: nontoxic, no distress, appears at stated age, somnolent Cardiovascular: S1 S2 reg, no murmur Lungs: CTA bilateral, no rhonchi, no rales, no accessory muscle use Abdominal: soft, non-tender to palpation, nondistended Extremities: No cyanosis, clubbing, or pedal edema. Neuro: Alert, Oriented to person, time and place, neurological exam limited due to somnolence Psych: well appearing, appropriate affect Assessment/Plan: Patient is a 53-year-old female with past medical history of coronary artery disease with previous CABG in 12/2023, history of [place] (most recent last September 2024), hyperlipidemia, diabetes, GERD, rheumatoid arthritis, COPD, and cervical radiculopathy who presented to the ED with nonradiating centralized chest pain that started yesterday. Patient will be admitted to medicine service for further evaluation. Active: Chest pain, likely stable angina, rule out ACS Recent NSTEMI last month with stenting of circumflex marginal coronary artery History of CAD with previous CABG December 2023 Patient not currently endorsing chest pain Recent limited echocardiogram completed August 2024 showed ejection fraction of 55 to 60% EKG independently interpreted as sinus rhythm with ventricular rate 62 bpm and QTc of [address] changes Trend troponin every 3 hours x 2 Continue aspirin 81 mg po daily Continue atorvastatin 80 mg p.o. 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 at bedtime Continue Toprol 75 mg daily Rheumatoid arthritis Continue gabapentin 300 mg p.o. twice daily GERD Continue Protonix 40 mg daily Continue ranolazine 500 mg every 12 hours F: 0.9%NS @100ml/h E: Replete as needed N: Heart healthy diet A: As tolerated DVT prophylaxis: Lovenox 40 mg subcu daily The patient is admitted with an anticipated more than 2 midnight stay for evaluation of chest pain CODE STATUS: Full code Discussed with: Patient Anticipated discharge place: Home I have seen and evaluated the patient today. I Discussed the case with the resident and agree with the resident's findings I edited the assessment and plan as necessary as documented in the resident's note. Past Medical History Past Medical History: Asthma, Coronary Artery Disease (CAD), COPD, Diabetes Mellitus, Hyperlipidemia, Hypertension, Myocardial Infarction ([place]), Musculoskeletal Disorder, Rheumatoid Arthritis (RA), Thyroid Disorder Additional Past Medical History / Comment(s): Back Pain, right shoulder pain, Hx Pituitary Tumor, BENIGN. Thyroid disorder. 3 heart attacks-most recent March 2022, 3 stents total, neuropathy; left-sided pleural effusion Last Myocardial Infarction Date:: 01/03/2024 History of Any Multi-Drug Resistant Organisms: None Reported Past Surgical History: Section, Coronary Bypass/CABG, Heart Cathet erization With Stent, Tubal Ligation Additional Past Surgical History / Comment(s): Pituitary Tumor Removed. colonoscopy, PAIN CLINIC PROCEDURES stents x3 c section x4; three-vessel off- pump CABG January 04, 2024; left-sided thoracentesis with removal of 950 mL fluid on January 22, 2024, cervical fusion C3-C7 09/10/2024 Past Anesthesia/Blood Transfusion Reactions: No Reported Reaction Date of Last Stent Placement:: March 2022 Past Psychological History: Anxiety, Depression Smoking Status: Former smoker Past Alcohol Use History: None Reported Past Drug Use History: None Reported - Past Family History Mother History Unknown: Yes Family Medical History: Deep Vein Thrombosis (DVT) Additional Family Medical History / Comment(s): Mother is alive at age 67 with history of coronary artery disease and three-vessel CABG. Daughter(s) History Unknown: Yes Family Medical History: Deep Vein Thrombosis (DVT) Additional Family Medical History / Comment(s): Patient has a total of 9 children with no major medical problems. Father History Unknown: Yes Family Medical History: Cancer Additional Family Medical History / Comment(s): Father is alive with no history of coronary artery disease. History of Prostate Cancer Sister(s) History Unknown: Yes Additional Family Medical History / Comment(s): The patient has 4 sisters and 1 brother. One sister had a myocardial infraction at age 40. Medications and Allergies Home Medications Medication Instructions Recorded Confirmed Type metFORMIN HCL [Glucophage] 1,000 mg PO BID 01/19/22 10/01/24 History Pantoprazole [Protonix] 40 mg PO DAILY 03/01/24 10/01/24 History Ferrous Sulfate [Iron (65 MG 325 mg PO BID 05/07/24 10/01/24 History Elemental)] Gabapentin [Neurontin] 300 mg PO BID 05/07/24 10/01/24 History Meenakshi Multivitamin Gummy 2 tab PO DAILY 05/07/24 10/01/24 History hydroCHLOROthiazide 25 mg PO DAILY 05/07/24 10/01/24 History Aspirin 81 mg PO DAILY 09/05/24 10/01/24 History Atorvastatin [Lipitor] 80 mg PO HS 09/05/24 10/01/24 History Clopidogrel [Plavix] 75 mg PO DAILY 09/05/24 10/01/24 History Lubiprostone [Amitiza] 24 mcg PO TID 09/05/24 10/01/24 History tiZANidine [Zanaflex] 2 mg PO BID 09/05/24 10/01/24 History Dapagliflozin Propanediol [Farxiga] 10 mg PO DAILY #90 tab 09/12/24 10/01/24 Rx Ezetimibe [Zetia] 10 mg PO DAILY #90 tab 09/12/24 10/01/24 Rx HYDROcodone/APAP 10-325MG [[place] 1 tab PO Q4-6H PRN #40 tab 09/12/24 10/01/24 Rx 10-325] Hydrocortisone [Cortef] 5 mg PO HS #60 tab 09/12/24 10/01/24 Rx Hydrocortisone [Cortef] 10 mg PO DAILY #60 tab 09/12/24 10/01/24 Rx tiZANidine [Zanaflex] 2 mg PO TID PRN #40 tab 09/12/24 10/01/24 Rx Nitroglycerin Sl Tabs [Nitrostat] 0.4 mg SUBLINGUAL Q5M PRN 09/14/24 10/01/24 History Sennosides-Docusate Sodium 2 tab PO DAILY 09/14/24 10/01/24 History [Senokot-S] Estradiol Cream [Estrace Cream 1 applic VAGINAL DAILY PRN #1 each 09/16/24 10/01/24 Rx 0.01%] Ibuprofen [Motrin] 800 mg PO TID PRN 10/01/24 10/01/24 History oxyCODONE HCL [OxyIR] 5 mg PO Q4H PRN 10/01/24 10/01/24 History Isosorbide Mononitrate ER [Imdur] 60 mg PO DAILY #30 tab 10/08/24 Rx Losartan [Cozaar] 75 mg PO HS #90 tab 10/08/24 Rx Metoprolol Succinate (ER) [Toprol 75 mg PO DAILY #45 tab 10/08/24 Rx XL] Ranolazine [Ranexa] 500 mg PO Q12HR #60 tab 10/08/24 Rx Allergies Allergy/AdvReac Type Severity Reaction Status Date / Time peanut Allergy HIVES Verified 10/01/24 20:57 rice Allergy Rash/Hives Verified 10/01/24 20:57 seasonal Allergy Rash/Hives Uncoded 10/01/24 18:01 Physical Exam Vitals: Vital Signs Temp Pulse Resp BP Pulse Ox 10/31/24 02:00 80 18 145/80 96 10/30/24 23:56 76 18 146/67 97 10/30/24 21:48 97.0 F L 71 18 150/68 100 Intake and Output 10/30/24 10/30/24 10/31/24 14:59 22:59 06:59 Other: Weight 77.111 kg Results CBC & Chem 7: 10/30/24 23:35 10/30/24 23:35 Labs: Abnormal Lab Results - Last 24 Hours (Table) 10/30/24 10/30/24 Range/Units 23:35 23:35 APTT 21.3 L (22.0-30.0) sec Chloride 111 H (98-107) mmol/L Glucose 173 H (74-99) mg/dL Alkaline Phosphatase 130 H (38-126) U/L
[2024-10-31] MEDS: MORPHINE SULFATE 4 MG/ML SYRINGE IVP STA (03:42)
[2024-10-31] MEDS ORDERED: DEXTROSE 50% SYRINGE 50 ML IVP PRN ×2 (04:08)
[2024-10-31 04:31] LABS: Appearance,Urine Clear (Clear); Bilirubin,Urine Negative (Negative); Blood,Urine Negative (Negative); Color,Urine Colorless; Glucose,Urine (UA) 4+ (Negative); Ketones,Urine Negative (Negative); Leukocyte Esterase,Urine Negative (Negative); Nitrite,Urine Negative (Negative); Protein,Urine Negative (Negative); Specific Gravity,Urine 1.034 (1.001-1.035); Urobilinogen,Urine <2.0 mg/dL (<2.0)
[2024-10-31] MEDS: SODIUM CHLORIDE 0.9% 1,000 ML IV SCH (04:32)
[2024-10-31 06:34] LABS: Glucose,Whole Blood 175 mg/dL (70-110)
[2024-10-31 06:50] VITALS: TEMP 97.5
[2024-10-31 07:44] LABS: Glucose,Whole Blood 128 mg/dL (70-110)
[2024-10-31] MEDS: INSULIN ASPART (NovoLOG) 100 UNIT/ML VIAL SQ SCH (07:45)
[2024-10-31] MEDS ORDERED: RANOLAZINE 500 MG TAB.ER.12H PO SCH ×2 (09:00→10:15)
[2024-10-31] MEDS ORDERED: GABAPENTIN 300 MG CAP PO SCH (09:00)
[2024-10-31] MEDS ORDERED: hydroCHLOROthiazide 25 MG TAB PO SCH (09:00)
[2024-10-31] MEDS: METOPROLOL SUCCINATE (ER) 50 MG TAB.ER.24H PO SCH (09:26)
[2024-10-31] MEDS: CLOPIDOGREL 75 MG TAB PO SCH (09:26)
[2024-10-31] MEDS: EZETIMIBE 10 MG TAB PO SCH (09:26)
[2024-10-31] MEDS: ASPIRIN 81 MG PO SCH (09:27)
[2024-10-31 10:05] VITALS: BP 150/82
[2024-10-31] MEDS: ENOXAPARIN 40 MG/0.4 ML SYRINGE SQ SCH (10:38)
[2024-10-31] MEDS: PANTOPRAZOLE 40 MG TABLET PO SCH (10:38)
--- NOTE | 2024-10-31 11:25 | P.CRDCN ---
History of Present Illness Consult date: 10/31/24 Consult reason: chest pain History of present illness: This is a 53-year-old female patient of Dr. Ojeda with a past medical history significant for coronary artery disease with previous CABG in 12/2023 followed by PTCA stent of the circumflex 10/14, diabetes, GERD, rheumatoid arthritis, COPD, and cervical radiculopathy. We have been asked to see the patient in consultation for chest pain. Patient states that she was having a nosebleed and then fell asleep on her bed laying on her stomach. When she woke up she was trying to push herself up off the bed and developed chest pain and it was a pressure type chest pain. She denies any chest pain at rest. She states it only happens when she lays in a certain position. She denies chest pain at this time. Discussed option of adding Ranexa and patient states she does not want to take any new medications and does not want her medications changed. Blood pressure 143/75, heart rate 60, pulse ox 98% on room air. DIAGNOSTICS: -EKG reveals sinus mechanism -Chest xray negative for acute process -Laboratory data: Troponin negative x 3. CBC normal. Creatinine 0.56. -Current home cardiac medications: Amlodipine 2.5 mg daily, aspirin 81 mg daily, atorvastatin 80 mg at bedtime, Plavix 75 mg daily, Farxiga 10 mg daily, Zetia 10 mg daily, Imdur 15 mg daily, losartan 25 mg daily, Toprol XL 50 mg daily. -Most recent echocardiogram obtained in 04/2024 revealed ejection fraction 60%, trace MR, mild TR -Limited echo in August 2024 revealed ejection fraction 55 to 60% -Cardiac catheterization history: September 2024 revealed significant disease in the circumflex 95% with progression since November 2023. Free radial artery graft to the OM is nonfunctional. RCA has significant stenosis but RCA graft is patent. LAD has 60% narrowing ostially and also 50% midportion but SANDERSON to LAD is patent. Craig LAD flow is good. Recommendations for PCI of the circumflex initially was unsuccessful on 10/03. On 10/07, patient underwent PTCA and stenting of the circumflex marginal with ARTHUR. REVIEW OF SYSTEMS: At the time of my exam: CONSTITUTIONAL: Denies fever or chills. HEENT: Denies blurred vision, vision changes, or eye pain. Denies hemoptysis CARDIOVASCULAR: Denies chest pain. Denies orthopnea. Denies PND. Denies palpitations RESPIRATORY: Denies shortness of breath. GASTROINTESTINAL: Denies abdominal pain. Denies nausea or vomiting. HEMATOLOGIC: Denies bleeding disorders. GENITOURINARY: Denies any blood in urine. SKIN: Denies pruitis. Denies rash. PHYSICAL EXAM: VITAL SIGNS: Reviewed. GENERAL: Well-developed in no acute distress. HEENT: Head is normocephalic. Pupils are equal, round. Sclerae anicteric. Mucous membranes of the mouth are moist. Neck supple. No JVD or thyromegaly LUNGS: Respirations even and unlabored. Lungs essentially clear to auscultation bilaterally. HEART: Regular rate and rhythm. S1 and S2 heard. 2/6 systolic murmur ABDOMEN: Soft. Nondistended. Nontender. EXTREMITIES: Normal range of motion. No clubbing or cyanosis. Peripheral pulses intact. No lower extremity edema NEUROLOGIC: Awake and alert. Oriented x 3. ASSESSMENT: Stable angina Chest pain, probable muscular skeletal Recent Non-STEMI with PTCA and stenting of the circumflex 10/07/2024 Epistaxis Coronary artery disease with previous CABG, 12/2023 Hypertension Hyperlipidemia Diabetes GERD History of rheumatoid arthritis COPD Status post cervical fusion on 09/10/2024 PLAN: Resume patient's home cardiac medications No need to repeat echocardiogram No plan for cardiac catheterization at this time Recommend workup for other etiologies of chest discomfort, musculoskeletal, GI Recommend cardiac rehab which can be arranged at her next office appointment Cardiology will sign off this case and follow on an as-needed basis. Please reconsult for any new concerns. Patient may follow-up in the office in one to [address] Ojeda . Further recommendations pending patient course Nurse practitioner note has been reviewed by physician. Signing provider agrees with the documented findings, assessment, and plan of care documented by AIR ANALYSIS ENGINEERING TECHNICIAN as a scribe. Past Medical History Past Medical History: Asthma, Coronary Artery Disease (CAD), COPD, Diabetes Mellitus, Hyperlipidemia, Hypertension, Myocardial Infarction ([place]), Musculoske letal Disorder, Rheumatoid Arthritis (RA), Thyroid Disorder Additional Past Medical History / Comment(s): Back Pain, right shoulder pain, Hx Pituitary Tumor, BENIGN. Thyroid disorder. 3 heart attacks-most recent March 2022, 3 stents total, neuropathy; left-sided pleural effusion Last Myocardial Infarction Date:: 01/03/2024 History of Any Multi-Drug Resistant Organisms: None Reported Past Surgical History: Section, Coronary Bypass/CABG, Heart Catheterization With Stent, Tubal Ligation Additional Past Surgical History / Comment(s): Pituitary Tumor Removed. colo noscopy, PAIN CLINIC PROCEDURES stents x3 c section x4; three-vessel off-pump CABG January 04, 2024; left-sided thoracentesis with removal of 950 mL fluid on January 22, 2024, cervical fusion C3-C7 09/10/2024 Past Anesthesia/Blood Transfusion Reactions: No Reported Reaction Date of Last Stent Placement:: March 2022 Past Psychological History: Anxiety, Depression Smoking Status: Former smoker Past Alcohol Use History: None Reported Past Drug Use History: None Reported - Past Family History Mother History Unknown: Yes Family Medical History: Deep Vein Thrombosis (DVT) Additional Family Medical History / Comment(s): Mother is alive at age 67 with history of coronary artery disease and three-vessel CABG. Daughter(s) History Unknown: Yes Family Medical History: Deep Vein Thrombosis (DVT) Additional Family Medical History / Comment(s): Patient has a total of 9 ch ildren with no major medical problems. Father History Unknown: Yes Family Medical History: Cancer Additional Family Medical History / Comment(s): Father is alive with no history of coronary artery disease. History of Prostate Cancer Sister(s) History Unknown: Yes Additional Family Medical History / Comment(s): The patient has 4 sisters and 1 brother. One sister had a myocardial infraction at age 40. Medications and Allergies Home Medications Medication Instructions Recorded Confirmed Type metFORMIN HCL [Glucophage] 1,000 mg PO BID 01/19/22 10/31/24 History Aspirin 81 mg PO DAILY 09/05/24 10/31/24 History Atorvastatin [Lipitor] 80 mg PO HS 09/05/24 10/31/24 History Clopidogrel [Plavix] 75 mg PO DAILY 09/05/24 10/31/24 History Lubiprostone [Amitiza] 24 mcg PO BID 09/05/24 10/31/24 History Dapagliflozin Propanediol [Farxiga] 10 mg PO DAILY #90 tab 09/12/24 10/31/24 Rx Ezetimibe [Zetia] 10 mg PO DAILY #90 tab 09/12/24 10/31/24 Rx Hydrocortisone [Cortef] 10 mg PO DAILY #60 tab 09/12/24 10/31/24 Rx Isosorbide Mononitrate ER [Imdur] 15 mg PO DAILY 10/31/24 10/31/24 History Losartan [Cozaar] 25 mg PO DAILY 10/31/24 10/31/24 History Metoprolol Succinate (ER) [Toprol 50 mg PO DAILY 10/31/24 10/31/24 History Xl] Plecanatide [Trulance] 3 mg PO DAILY 10/31/24 10/31/24 History amLODIPine [Norvasc] 2.5 mg PO DAILY 10/31/24 10/31/24 History Allergies Allergy/AdvReac Type Severity Reaction Status Date / Time peanut Allergy HIVES Verified 10/31/24 07:25 rice Allergy Rash/Hives Verified 10/31/24 07:25 seasonal Allergy Rash/Hives Uncoded 10/31/24 07:25 Physical Exam Vitals: Vital Signs Temp Pulse Resp BP Pulse Ox 10/31/24 09:00 61 17 150/82 98 10/31/24 06:43 97.5 F L 60 20 143/75 98 10/31/24 03:30 71 20 148/76 100 10/31/24 02:00 80 18 145/80 96 10/30/24 23:56 76 18 146/67 97 10/30/24 21:48 97.0 F L 71 18 150/68 100 Intake and Output 10/30/24 10/31/24 10/31/24 22:59 06:59 14:59 Other: Weight 77.111 kg Results 10/30/24 23:35 10/30/24 23:35 Cardiac Enzymes 10/30/24 10/30/24 10/31/24 Range/Units 23:35 23:35 03:07 AST 25 (14-36) U/L Troponin I 0.014 <0.012 (0.000-0.034) ng/mL 10/31/24 Range/Units 06:02 AST (14-36) U/L Troponin I <0.012 (0.000-0.034) ng/mL Coagulation 10/30/24 Range/Units 23:35 PT 10.0 (10.0-12.5) sec APTT 21.3 L (22.0-30.0) sec CBC 10/30/24 Range/Units 23:35 WBC 7.1 (3.8-10.6) k/uL RBC 4.11 (3.80-5.40) m/uL Hgb 12.2 (11.4-16.0) gm/dL Hct 37.7 (34.0-46.0) % Plt Count 236 (150-450) k/uL Comprehensive Metabolic Panel 10/30/24 Range/Units 23:35 Sodium 140 (137-145) mmol/L Potassium 4.0 (3.5-5.1) mmol/L Chloride 111 H (98-107) mmol/L Carbon Dioxide 22 (22-30) mmol/L BUN 12 (7-17) mg/dL Creatinine 0.56 (0.52-1.04) mg/dL Glucose 173 H (74-99) mg/dL Calcium 9.6 (8.4-10.2) mg/dL AST 25 (14-36) U/L ALT 21 (4-34) U/L Alkaline Phosphatase 130 H (38-126) U/L Total Protein 6.4 (6.3-8.2) g/dL Albumin 3.8 (3.5-5.0) g/dL Current Medications Generic Name Dose Route Start Last Admin Trade Name Freq PRN Reason Stop Dose Admin Acetaminophen 650 mg 10/31/24 02:23 Acetaminophen Tab 325 Mg Tab PO Q6HR PRN Mild Pain or Fever > 100.5 Aspirin 81 mg 10/31/24 09:00 10/31/24 09:27 Aspirin 81 Mg PO 81 mg DAILY TIERA Administration Atorvastatin Calcium 80 mg 10/31/24 21:00 Atorvastatin 80 Mg Tab PO HS [facility] Clopidogrel Bisulfate 75 mg 10/31/24 09:00 10/31/24 09:26 Clopidogrel 75 Mg Tab PO 75 mg DAILY TIERA Administration Dextrose/Water 25 ml 10/31/24 04:08 Dextrose 50% Syringe 50 Ml IVP PER PROTOCOL PRN Hypoglycemia Protocol Dextrose/Water 50 ml 10/31/24 04:08 Dextrose 50% Syringe 50 Ml IVP PER PROTOCOL PRN Hypoglycemia Protocol Ezetimibe 10 mg 10/31/24 09:00 10/31/24 09:26 Ezetimibe 10 Mg Tab PO 10 mg DAILY TIERA Administration Enoxaparin Sodium 40 mg 10/31/24 09:00 Enoxaparin 40 Mg/0.4 Ml Syringe SQ DAILY [facility] Sodium Chloride 1,000 mls @ 100 mls/hr 10/31/24 04:15 10/31/24 04:32 Saline 0.9% IV 100 mls/hr .Q10H TIERA Administration Insulin Aspart 0 unit 10/31/24 07:30 10/31/24 07:45 Insulin Aspart (Novolog) 100 Unit/Ml Vial SQ Not Given ACHS TIERA Protocol Losartan Potassium 25 mg 10/31/24 21:00 Losartan 25 Mg Tab PO HS TIERA Metoprolol Succinate 50 mg 10/31/24 09:00 10/31/24 09:26 Metoprolol Succinate (Er) 50 Mg Tab.Er.24h PO 50 mg DAILY TIERA Administration Naloxone HCl 0.2 mg 10/31/24 02:23 Naloxone 0.4 Mg/Ml 1 Ml Vial IV Q2M PRN Opioid Reversal Nitroglycerin 0.4 mg 10/31/24 00:39 Nitroglycerin Sl Tabs 0.4 Mg Tab SUBLINGUAL Q10M PRN Chest Pain Intake and Output 10/30/24 10/31/24 10/31/24 22:59 06:59 14:59 Other: Weight 77.111 kg 10/30/24 23:35 10/30/24 23:35
[2024-10-31 12:15] LABS: Glucose,Whole Blood 183 mg/dL (70-110)
[2024-10-31 12:19] VITALS: PULSE 82; RESP 18
--- NOTE | 2024-10-31 14:46 | P.DS ---
Providers Date of admission: 10/31/24 00:33 Expected date of discharge: 10/31/24 Attending physician: Helen Clayton MD Consults: 10/31/24 02:23 Consult Physician Urgent Consulting Provider: [facility] Consult Reason/Comments: Chest pain Do you want consulting provider notified?: Yes, Notify in am 10/31/24 04:53 Consult Physician Routine Consulting Provider: Micky Santos Consult Reason/Comments: Nosebleed with Merocel in place Do you want consulting provider notified?: Yes, Notify in am Primary care physician: [facility] Hospital Course: Chest pain, likely stable angina, rule out ACS Vaginal pruritus without urgency or frequency, rule out UTI Nosebleed with Merocel in Place Diabetes Hyperlipidemia Hypertension Rheumatoid arthritis GERD Hospital Course: Patient is a 53-year-old female with past medical history of coronary artery disease with previous CABG in 12/2023, history of [place] (most recent last September 2024), diabetes, GERD, rheumatoid arthritis, COPD, and cervical radiculopathy who presented to the ED with nonradiating centralized chest pain that started yesterday. Vitals on admission temperature 97, heart rate 71 bpm, respiratory rate 18, blood pressure 150/68, saturating 100% on room air EKG independently interpreted as sinus rhythm with ventricular rate 62 bpm and QTc of [address] changes CXR shows no acute process Labs on admission show WBC 7.1, hemoglobin 12.2, platelets 236. PT 10, INR 0.9, PTT 21.3. Sodium 140, potassium 4, chloride 111, bicarb 22, BUN 12, creatinine 0.56, glucose 173. Pts troponins remained negative. Pt was seen and cleared by cardiology. Chest pain resolved without intervention. She was instructed to f/u with PCP, ENT, and cardiology on discharge. Gen: In NAD, non-toxic HEENT: normocephalic, atraumatic, hearing acuity is intant, mucous membranes moist CVS: perfusing all extremities well, no pitting edema, Respiratory: symmetric chest expansion, no accessory muscle use, GI: soft, NTTP, ND, : no suprapubic tenderness, no CVA tenderness MSK/Derm: no rashes, cyanosis Neuro: CN II-XII intact, no motor weakness, Psych: cooperative, euthymic mood, judgment and insight is intact Patient Condition at Discharge: Good Plan - Discharge Summary New Discharge Prescriptions: New Acetaminophen Tab [Tylenol] 650 mg PO Q6HR PRN tab PRN Reason: Mild Pain Or Fever > 100.5 Continue Lubiprostone [Amitiza] 24 mcg PO BID Hydrocortisone [Cortef] 10 mg PO DAILY #60 tab Dapagliflozin Propanediol [Farxiga] 10 mg PO DAILY #90 tab Losartan [Cozaar] 25 mg PO DAILY Isosorbide Mononitrate ER [Imdur] 15 mg PO DAILY metFORMIN HCL [Glucophage] 1,000 mg PO BID Aspirin 81 mg PO DAILY Clopidogrel [Plavix] 75 mg PO DAILY Atorvastatin [Lipitor] 80 mg PO HS Ezetimibe [Zetia] 10 mg PO DAILY #90 tab Metoprolol Succinate (ER) [Toprol XL] 50 mg PO DAILY amLODIPine [Norvasc] 2.5 mg PO DAILY Plecanatide [Trulance] 3 mg PO DAILY Discharge Medication List metFORMIN HCL [Glucophage] 1,000 mg PO BID 01/19/22 [History] Aspirin 81 mg PO DAILY 09/05/24 [History] Atorvastatin [Lipitor] 80 mg PO HS 09/05/24 [History] Clopidogrel [Plavix] 75 mg PO DAILY 09/05/24 [History] Lubiprostone [Amitiza] 24 mcg PO BID 09/05/24 [History] Dapagliflozin Propanediol [Farxiga] 10 mg PO DAILY #90 tab 09/12/24 [Rx] Ezetimibe [Zetia] 10 mg PO DAILY #90 tab 09/12/24 [Rx] Hydrocortisone [Cortef] 10 mg PO DAILY #60 tab 09/12/24 [Rx] Acetaminophen Tab [Tylenol] 650 mg PO Q6HR PRN tab 10/31/24 [Rx] Isosorbide Mononitrate ER [Imdur] 15 mg PO DAILY 10/31/24 [History] Losartan [Cozaar] 25 mg PO DAILY 10/31/24 [History] Metoprolol Succinate (ER) [Toprol XL] 50 mg PO DAILY 10/31/24 [History] Plecanatide [Trulance] 3 mg PO DAILY 10/31/24 [History] amLODIPine [Norvasc] 2.5 mg PO DAILY 10/31/24 [History] Follow up Appointment(s)/Referral(s): Will Ojeda MD [STAFF PHYSICIAN] - [address] [facility] [Primary Care Provider] - 1-2 days Discharge Disposition: HOME SELF-CARE
[2024-10-31] MEDS ORDERED: LOSARTAN 25 MG TAB PO SCH (21:00)
[2024-10-31] MEDS ORDERED: ATORVASTATIN 80 MG TAB PO SCH (21:00)
== END 2024-10-31 13:45 | disposition home or self-care (01) ==
LOC: EC 21:42 → 6NMEDSUR 10-31 00:33
PROVIDERS: ADMIT Internal Medicine; ATTEND Internal Medicine
DX: R07.89 Other chest pain (principal); L29.89 Other pruritus; R04.0 Epistaxis; E11.9 Type 2 diabetes mellitus without complications; J44.9 Chronic obstructive pulmonary disease, unspecified; I25.118 Atherosclerotic heart disease of native coronary artery with other forms of angina pectoris; I10 Essential (primary) hypertension; E78.5 Hyperlipidemia, unspecified; K21.9 Gastro-esophageal reflux disease without esophagitis; M06.9 Rheumatoid arthritis, unspecified; M54.12 Radiculopathy, cervical region; I25.2 Old myocardial infarction; E66.9 Obesity, unspecified; Z68.36 Body mass index [BMI] 36.0-36.9, adult; Z79.52 Long term (current) use of systemic steroids; Z79.84 Long term (current) use of oral hypoglycemic drugs; Z79.82 Long term (current) use of aspirin; Z79.02 Long term (current) use of antithrombotics/antiplatelets; Z79.899 Other long term (current) drug therapy; Z91.010 Allergy to peanuts; Z91.018 Allergy to other foods; Z91.048 Other nonmedicinal substance allergy status; Z95.1 Presence of aortocoronary bypass graft; Z95.5 Presence of coronary angioplasty implant and graft; Z87.891 Personal history of nicotine dependence; Z98.1 Arthrodesis status
CPT/HCPCS: 96372; 96374; 99285; 36415; 93005; 80053; 83735; 84484 ×2; 85025; 85610; 85730; 81003; 71046; G0378; J2270; J1650

== ENCOUNTER → 2024-11-24 | Outpatient (CLI) | payer OTHER ==
[2024-11-25 03:00] LABS: T4, Free (Free Thyroxine) 3.19 ng/dL (0.80-1.80)
[2024-11-25 03:21] LABS: Thyroid Peroxidase Antibodies 17.3 U/mL (0.0-33.0)
== END | disposition home or self-care (01) ==
LOC: LABWHC1 15:29
DX: R79.89 Other specified abnormal findings of blood chemistry (principal)
CPT/HCPCS: 36415; 84432; 84439; 84481; 86376

== ENCOUNTER → 2024-12-10 | Outpatient (CLI) | payer OTHER ==
--- NOTE | 2024-12-11 14:13 | NM ---
EXAMINATION TYPE: NM thyroid image w uptake DATE OF EXAM: 12/11/2024 COMPARISON: Thyroid ultrasound 12/05/2024 CLINICAL INDICATION: Female, 54 years old with history of R79.89 ABNORMAL FINDINGS OF BLOOD CHEMISTRY ; TECHNIQUE: Thyroid iodine uptake is calculated and images performed after the oral administration of 309 uCi 1-123 Capsule. FINDINGS: There is normal distribution of activity throughout the gland. The 4 hour iodine uptake is calculated at 10.4% (normal range 8-14%). The 24-hour iodine uptake is calculated at 26.7% (normal r wilian 15-35%). IMPRESSION: Normal thyroid scan and uptake. [facility], , 12/11/2024 2:11 PM
== END | disposition home or self-care (01) ==
LOC: RADNMMAIN 09:04
DX: R79.89 Other specified abnormal findings of blood chemistry (principal)
CPT/HCPCS: 78014; A9516

== ENCOUNTER 2024-12-19 15:12 | Observation (INO) | payer OTHER ==
--- NOTE | 2024-12-19 16:09 | ED ---
General Adult HPI - General Chief complaint: Upper Respiratory Infection Stated complaint: Chest pain,Sob Time Seen by Provider: 12/19/24 15:30 Source: patient Mode of arrival: ambulatory Limitations: no limitations - History of Present Illness Initial comments: Dictation was produced using [employer] dictation software. please excuse any grammatical, word or spelling errors. Chief Complaint: 54-year-old female multiple comorbidities presents with 2 to 3 days of chest pain, chills body aches and runny nose History of Present Illness: Patient 54-year-old female she has multiple comorbidities including coronary artery bypass grafting, coronary artery disease, coronary artery stent hypertension diabetes. States for the last 2 to 3 days she has had nasal congestion, runny nose, right anterior chest pain and body aches. States she also has chills. Denies any obvious sick contacts. Patient states the pain in her chest is sharp located to the right anterior chest. The ROS documented in this emergency department record has been reviewed and co nfirmed by me. Those systems with pertinent positive or negative responses have been documented in the HPI. All other systems are other negative and/or noncontributory. - Related Data Home Medications Medication Instructions Recorded Confirmed metFORMIN HCL [Glucophage] 1,000 mg PO BID 01/19/22 10/31/24 Aspirin 81 mg PO DAILY 09/05/24 10/31/24 Atorvastatin [Lipitor] 80 mg PO HS 09/05/24 10/31/24 Clopidogrel [Plavix] 75 mg PO DAILY 09/05/24 10/31/24 Lubiprostone [Amitiza] 24 mcg PO BID 09/05/24 10/31/24 Isosorbide Mononitrate ER [Imdur] 15 mg PO DAILY 10/31/24 10/31/24 Losartan [Cozaar] 25 mg PO DAILY 10/31/24 10/31/24 Metoprolol Succinate (ER) [Toprol 50 mg PO DAILY 10/31/24 10/31/24 XL] Plecanatide [Trulance] 3 mg PO DAILY 10/31/24 10/31/24 amLODIPine [Norvasc] 2.5 mg PO DAILY 10/31/24 10/31/24 Previous Rx's Medication Instructions Recorded Dapagliflozin Propanediol [Farxiga] 10 mg PO DAILY #90 tab 09/12/24 Ezetimibe [Zetia] 10 mg PO DAILY #90 tab 09/12/24 Hydrocortisone [Cortef] 10 mg PO DAILY #60 tab 09/12/24 Acetaminophen Tab [Tylenol] 650 mg PO Q6HR PRN tab 10/31/24 Allergies Allergy/AdvReac Type Severity Reaction Status Date / Time peanut Allergy HIVES Verified 12/19/24 15:17 rice Allergy Rash/Hives Verified 12/19/24 15:17 seasonal Allergy Rash/Hives Uncoded 12/19/24 15:17 Review of Systems ROS Statement: Those systems with pertinent positive or pertinent negative responses have been documented in the HPI. ROS Other: All systems not noted in ROS Statement are negative. Past Medical History Past Medical History: Asthma, Coronary Artery Disease (CAD), COPD, Diabetes Mellitus, Hyperlipidemia, Hypertension, Myocardial Infarction ([place]), Musculoskeletal Disorder, Rheumatoid Arthritis (RA), Thyroid Disorder Additional Past Medical History / Comment(s): Back Pain, right shoulder pain, Hx Pituitary Tumor, BENIGN. Thyroid disorder. 3 heart attacks-most recent March 2022, 3 stents total, neuropathy; left-sided pleural effusion Last Myocardial Infarction Date:: 01/03/2024 History of Any Multi-Drug Resistant Organisms: None Reported Past Surgical History: Section, Coronary Bypass/CABG, Heart Catheterization With Stent, Tubal Ligation Additional Past Surgical History / Comment(s): Pituitary Tumor Removed. colonoscopy, PAIN CLINIC PROCEDURES stents x3 c section x4; three-vessel off- pump CABG January 04, 2024; left-sided thoracentesis with removal of 950 mL fluid on January 22, 2024, cervical fusion C3-C7 09/10/2024 Past Anesthesia/Blood Transfusion Reactions: No Reported Reaction Date of Last Stent Placement:: March 2022 Past Psychological History: Anxiety, Depression Smoking Status: Former smoker Past Alcohol Use History: None Reported Past Drug Use History: None Reported - Past Family History Mother History Unknown: Yes Family Medical History: Deep Vein Thrombosis (DVT) Additional Family Medical History / Comment(s): Mother is alive at age 67 with history of coronary artery disease and three-vessel CABG. Daughter(s) History Unknown: Yes Family Medical History: Deep Vein Thrombosis (DVT) Additional Family Medical History / Comment(s): Patient has a total of 9 children with no major medical problems. Father History Unknown: Yes Family Medical History: Cancer Additional Family Medical History / Comment(s): Father is alive with no history of coronary artery disease. History of Prostate Cancer Sister(s) History Unknown: Yes Additional Family Medical History / Comment(s): The patient has 4 sisters and 1 brother. One sister had a myocardial infraction at age 40. General Exam - General Exam Comments Initial Comments: PHYSICAL EXAM: General Impression: Alert and oriented x3, not in acute distress HEENT: Normocephalic atraumatic, extra-ocular movements intact, pupils equal and reactive to light bilaterally, mucous membranes moist. Cardiovascular: Heart regular rate and rhythm Chest: Able to complete full sentences, no retractions, no tachypnea Abdomen: abdomen soft, non-tender, non-distended, no organomegaly Musculoskeletal: Pulses present and equal in all extremities, no peripheral edema Motor: no focal deficits noted Neurological: CN II-XII grossly intact, no focal motor or sensory deficits noted Skin: Intact with no visualized rashes Psych: Normal affect and mood Limitations: no limitations Course Vital Signs 12/19/24 15:14 Temperature 97.8 F Pulse Rate 72 Respiratory 18 Rate Blood Pressure 143/76 O2 Sat by Pulse 99 Oximetry EKG Findings - EKG Comments: EKG Findings:: My EKG interpretation: Ventricular rate 69, sinus rhythm, MD 127, QRS 101, QTc 422. No MD prolongation, no QTC prolongation, no ST or T-wave changes noted. EOverall, this EKG is unremarkable Medical Decision Making - Medical Decision Making Was pt. sent in by a medical professional or institution (, PA, POULTRY SCIENTIST, urgent care, hospital, or skilled nursing...) When possible be specific @ -No Did you speak to anyone other than the patient for history (EMS, parent, family, police, friend...)? What history was obtained from this source @ -No Did you review nursing and triage notes (agree or disagree)? Why? @ -I reviewed and agree with nursing and triage notes Were old charts reviewed (outside hosp., previous admission, EMS record, old EKG, old radiological studies, urgent care reports/EKG's, skilled nursing records)? Report findings @ -No old charts were reviewed Differential Diagnosis (chest pain, altered mental status, abdominal pain women, abdominal pain men, vaginal bleeding, musculoskeletal, weakness, fever, dyspnea, syncope, headache, dizziness, GI bleed, back pain, seizure, CVA, palpatations, mental health)? @ -Differential Chest Pain: Stable Angina, Unstable Angina, STEMI, NSTEMI Aortic Dissection, Pneumothorax, Musculoskeletal, Esophageal Spasm GERD, Cholecystitis, Pancreatitis, Zoster, this is not meant to be an all-inclusive list. EKG interpreted by me (3pts min.). @ -See above X-rays interpreted by me (1pt min.). @ -Chest x-ray shows mild cardiomegaly and pulmonary congestion CT interpreted by me (1pt min.). @ -None done U/S interpreted by me (1pt. min.). @ -None done What testing was considered but not performed or refused? (CT, X-rays, U/S, labs)? Why? @ -None What meds were considered but not given or refused? Why? @ -None Was smoking cessation discussed for >3mins.? @ -No Were there social determinants of health that impacted care today? How? (Homelessness, low income, unemployed, alcoholism, drug addiction, transportation, low edu. Level, literacy, decrease access to med. care, shelter, rehab)? @ -No Was there de-escalation of care discussed even if they declined (Discuss DNR or withdrawal of care, Hospice)? DNR status @ -No What co-morbidities impacted this encounter? (DM, HTN, Smoking, COPD, CAD, Cancer, CVA, ARF, Chemo, Hep., AIDS, mental health diagnosis, sleep apnea, morbid obesity)? @ -None Was patient admitted / discharged? Hospital course, mention meds given and route, prescriptions, significant lab abnormalities, going to OR and other pertinent info. @ -54-year-old female presents emergency department with atypical chest pain t ypical features. She also has symptoms of viral URI. Vital signs upon arrival are within acceptable limits. EKG is unremarkable. Laboratory evaluation obtained. Labs are within acceptable limits except for magnesium 1.4. Patient given Mag-Ox tab. Patient has a has vague chest pain. She does have extensive cardiac history. Will be admitted ops for cardiac monitoring, serial troponins and cardiology consultation. Patient given aspirin. Patient agreeable with plan. Did you discuss the management of the patient with other professionals (professionals i.e. , PA, POULTRY SCIENTIST, lab, RT, psych nurse, social services aide, management associate, teacher, retail loan officer, case preparer and liner)? Give summary @ -No Was critical care preformed (if so, how long)? @ -No Undiagnosed new problem with uncertain prognosis? @ -No Drug Therapy requiring intensive monitoring for toxicity (Heparin, Nitro, Insulin, Cardizem)? @ -No Were any procedures done? @ -No Diagnosis/symptom? Acute, or Chronic, or Acute on Chronic? Uncomplicated (without systemic symptoms) or Complicated (systemic symptoms)? @ -Chest pain, viral URI Side effects of treatment? @ -No Exacerbation, Progression, or Severe Exacerbation? @ -No Poses a threat to life or bodily function? How? (Chest pain, USA, PA, pneumonia, PE, COPD, DKA, ARF, appy, cholecystitis, CVA, Diverticulitis, Homicidal, Syuicidal, threat to staff... and all critical care pts) @ -yes - Lab Data Result diagrams: 12/19/24 17:47 12/19/24 17:47 Lab Results 12/19/24 12/19/24 12/19/24 Range/Units 16:47 17:47 17:47 WBC 7.9 (3.8-10.6) k/uL RBC 4.38 (3.80-5.40) m/uL Hgb 11.7 (11.4-16.0) gm/dL Hct 37.3 (34.0-46.0) % MCV 85.1 D (80.0-100.0) fL MCH 26.8 (25.0-35.0) pg MCHC 31.5 (31.0-37.0) g/dL RDW 13.0 (11.5-15.5) % Plt Count 244 (150-450) k/uL MPV 7.4 Neutrophils % 57 % Lymphocytes % 33 % Monocytes % 6 % Eosinophils % 2 % Basophils % 0 % Neutrophils # 4.5 (1.3-7.7) k/uL Lymphocytes # 2.6 (1.0-4.8) k/uL Monocytes # 0.5 (0-1.0) k/uL Eosinophils # 0.2 (0-0.7) k/uL Basophils # 0.0 (0-0.2) k/uL PT 10.8 (10.0-12.5) sec INR 1.0 (<1.2) APTT 22.9 (22.0-30.0) sec Sodium (137-145) mmol/L Potassium (3.5-5.1) mmol/L Chloride (98-107) mmol/L Carbon Dioxide (22-30) mmol/L Anion Gap mmol/L BUN (7-17) mg/dL Creatinine (0.52-1.04) mg/dL Est GFR (CKD-EPI)AfAm (>60 ml/min/1.73 sqM) Est GFR (CKD-EPI)NonAf (>60 ml/min/1.73 sqM) Glucose (74-99) mg/dL Calcium (8.4-10.2) mg/dL Magnesium (1.6-2.3) mg/dL Total Bilirubin (0.2-1.3) mg/dL AST (14-36) U/L ALT (4-34) U/L Alkaline Phosphatase (38-126) U/L Troponin I (0.000-0.034) ng/mL Total Protein (6.3-8.2) g/dL Albumin (3.5-5.0) g/dL Influenza Type A (PCR) Not Detected (Not Detectd) Influenza Type B (PCR) Not Detected (Not Detectd) RSV (PCR) Not Detected (Not Detectd) SARS-CoV-2 (PCR) Not Detected (Not Detectd) 12/19/24 12/19/24 Range/Units 17:47 17:47 WBC (3.8-10.6) k/uL RBC (3.80-5.40) m/uL Hgb (11.4-16.0) gm/dL Hct (34.0-46.0) % MCV (80.0-100.0) fL MCH (25.0-35.0) pg MCHC (31.0-37.0) g/dL RDW (11.5-15.5) % Plt Count (150-450) k/uL MPV Neutrophils % % Lymphocytes % % Monocytes % % Eosinophils % % Basophils % % Neutrophils # (1.3-7.7) k/uL Lymphocytes # (1.0-4.8) k/uL Monocytes # (0-1.0) k/uL Eosinophils # (0-0.7) k/uL Basophils # (0-0.2) k/uL PT (10.0-12.5) sec INR (<1.2) APTT (22.0-30.0) sec Sodium 137 (137-145) mmol/L Potassium 4.8 (3.5-5.1) mmol/L Chloride 106 (98-107) mmol/L Carbon Dioxide 23 (22-30) mmol/L Anion Gap 8 mmol/L BUN 12 (7-17) mg/dL Creatinine 0.51 L (0.52-1.04) mg/dL Est GFR (CKD-EPI)AfAm >90 (>60 ml/min/1.73 sqM) Est GFR (CKD-EPI)NonAf >90 (>60 ml/min/1.73 sqM) Glucose 130 H (74-99) mg/dL Calcium 9.5 (8.4-10.2) mg/dL Magnesium 1.4 L (1.6-2.3) mg/dL Total Bilirubin 0.6 (0.2-1.3) mg/dL AST 17 (14-36) U/L ALT 20 (4-34) U/L Alkaline Phosphatase 156 H (38-126) U/L Troponin I <0.012 (0.000-0.034) ng/mL Total Protein 6.6 (6.3-8.2) g/dL Albumin 3.7 (3.5-5.0) g/dL Influenza Type A (PCR) (Not Detectd) Influenza Type B (PCR) (Not Detectd) RSV (PCR) (Not Detectd) SARS-CoV-2 (PCR) (Not Detectd) Disposition Clinical Impression: Chest pain Disposition: ADMITTED IP TO THIS HOSP Condition: Fair Referrals: Iris Leigh III, MD [Primary Care Provider] - 1-2 days Decision Time: 18:57
[2024-12-19 17:52] LABS: Basophils % (A) 0 %; Eosinophils # (A) 0.2 k/uL (0-0.7); Eosinophils % (A) 2 %; HCT 37.3 % (34.0-46.0); HGB 11.7 gm/dL (11.4-16.0); Lymphocytes # (A) 2.6 k/uL (1.0-4.8); Lymphocytes % (A) 33 %; MCH 26.8 pg (25.0-35.0); MCHC 31.5 g/dL (31.0-37.0); Mean Platelet Volume 7.4; Monocytes # (A) 0.5 k/uL (0-1.0); Monocytes % (A) 6 %; Neutrophils # (A) 4.5 k/uL (1.3-7.7); Neutrophils % (A) 57 %; Platelet Count 244 k/uL (150-450); RBC 4.38 m/uL (3.80-5.40); WBC 7.9 k/uL (3.8-10.6)
[2024-12-19 17:53] LABS: Influenza A Not Detected (Not Detectd); Influenza B Not Detected (Not Detectd); RSV Not Detected (Not Detectd)
--- NOTE | 2024-12-19 18:03 | XR ---
EXAMINATION TYPE: XR chest 2V DATE OF EXAM: 12/19/2024 5:57 PM COMPARISON: Chest radiographs from 10/30/2024 CLINICAL INDICATION: Female, 54 years old with history of Chest Pain; [facility] TECHNIQUE: XR chest 2V Frontal and lateral views of the chest. FINDINGS: Lungs/Pleura: There is no evidence of pleural effusion, focal consolidation, or pneumothorax. Pulmonary vascularity: Unremarkable. Heart/mediastinum: Cardiomediastinal silhouette is enlarged and stable. Left atrial appendage occlusi on device is present. Musculoskeletal: No acute osseous pathology. There is fixation hardware in the lower cervical spine. Midline sternotomy wires are noted. Other findings: None IMPRESSION: Cardiomegaly and mild pulmonary vascular congestion. Correlate with BNP for congestive heart failure. [facility], , 12/19/2024 6:00 PM
[2024-12-19 18:05] LABS: Partial Thromboplastin Time 22.9 sec (22.0-30.0); Prothrombin Time 10.8 sec (10.0-12.5)
[2024-12-19 18:12] LABS: MCV 85.1 fL (80.0-100.0)
[2024-12-19 18:14] LABS: ALT 20 U/L (4-34); AST 17 U/L (14-36); African American GFR (CKD) >90 (>60 ml/min/1.73 sqM); Albumin 3.7 g/dL (3.5-5.0); Alkaline Phosphatase 156 U/L (38-126); Anion Gap 8 mmol/L; Blood Urea Nitrogen 12 mg/dL (7-17); Calcium 9.5 mg/dL (8.4-10.2); Carbon Dioxide 23 mmol/L (22-30); Chloride 106 mmol/L (98-107); Glucose 130 mg/dL (74-99); Magnesium 1.4 mg/dL (1.6-2.3); Non-African American GFR(CKD) >90 (>60 ml/min/1.73 sqM); Potassium 4.8 mmol/L (3.5-5.1); Sodium 137 mmol/L (137-145); Total Bilirubin 0.6 mg/dL (0.2-1.3); Total Protein 6.6 g/dL (6.3-8.2)
[2024-12-19] MEDS ORDERED: NITROGLYCERIN SL TABS 0.4 MG TAB SUBLINGUAL PRN (18:54)
[2024-12-19] MEDS: MAGNESIUM OXIDE 400 MG TAB PO STA (19:02)
[2024-12-19] MEDS: ASPIRIN 81 MG PO STA (19:02)
[2024-12-19 22:48] VITALS: TEMP 97.5
[2024-12-19] MEDS: KETOROLAC 15 MG/ML 1 ML VIAL IVP SCH (23:11)
[2024-12-20 04:16] VITALS: RESP 18
[2024-12-20] MEDS: PANTOPRAZOLE 40 MG/10 ML VIAL IVP SCH (09:51)
--- NOTE | 2024-12-20 10:57 | P.CRDCN ---
History of Present Illness Consult date: 12/20/24 Consult reason: chest pain History of present illness: This is a 54-year-old female patient of Dr. Ojeda with a past medical history significant for coronary artery disease with previous CABG in 12/2023 followed by PTCA stent of the circumflex 10/14, diabetes, GERD, rheumatoid arthritis, COPD, and cervical radiculopathy. We have been asked to see the patient in consultation for chest pain. Patient states that she was having right-sided chest pain that was sharp. It sometimes happens when she is walking or when she is turning her body or moving. It is only periodic and comes and goes. Patient states she has had some pain like this since her heart surgery. It went away after Dr. Cedeno told her to take 3 nebulizer treatments a day. In early November she had a slip and fall on the landing on the concrete landing on her left elbow and she has had some left-sided pain and wrist pain. She also has had difficulty with neck pain since the fall and had the recent neck surgery in August. Regarding the chest pain, she states she felt better after her stent was done in September. She does have tenderness to the right side of the chest wall. She is complaining of headache. Blood pressure 135/51, heart rate 62, pulse ox 100% on room air. -EKG reveals sinus mechanism -Chest xray: Cardiomegaly and mild pulmonary vascular congestion. -Laboratory data: Troponin negative x 3. CBC normal. Creatinine 0.5. -Current home cardiac medications: Amlodipine 2.5 mg daily, aspirin 81 mg daily, atorvastatin 80 mg at bedtime, Plavix 75 mg daily, losartan 25 mg daily, Toprol XL 50 mg daily. -Most recent echocardiogram obtained 09/15/2024: Limited echo. Definity contrast used. Normal left ventricular size and systolic function. -Limited echo in August 2024 revealed ejection fraction 55 to 60% -Cardiac catheterization history: September 2024 revealed significant disease in the circumflex 95% with progression since November 2023. Free radial artery graft to the OM is nonfunctional. RCA has significant stenosis but RCA graft is patent. LAD has 60% narrowing ostially and also 50% midportion but [place] to LAD is patent. [place] LAD flow is good. Recommendations for PCI of the circumflex initially was unsuccessful on 10/03. On 10/07, patient underwent PTCA and stenting of the circumflex marginal with ARTHUR. REVIEW OF SYSTEMS: At the time of my exam: CONSTITUTIONAL: Denies fever or chills. HEENT: Denies blurred vision, vision changes, or eye pain. Denies hemoptysis CARDIOVASCULAR: Denies chest pain. Denies orthopnea. Denies PND. Denies palpitations RESPIRATORY: Reports shortness of breath. GASTROINTESTINAL: Denies abdominal pain. Denies nausea or vomiting. HEMATOLOGIC: Denies bleeding disorders. GENITOURINARY: Denies any blood in urine. SKIN: Denies pruitis. Denies rash. PHYSICAL EXAM: VITAL SIGNS: Reviewed. GENERAL: Well-developed in no acute distress. HEENT: Head is normocephalic. Pupils are equal, round. Sclerae anicteric. Neck supple. No JVD or thyromegaly LUNGS: Respirations even and unlabored. Lungs essentially clear to auscultation bilaterally. HEART: Regular rate and rhythm. S1 and S2 heard. 2/6 systolic murmur. Tenderness to palpation of right chest wall ABDOMEN: Soft. Nondistended. Nontender. EXTREMITIES: No clubbing or cyanosis. Peripheral pulses intact. No lower extremity edema NEUROLOGIC: Awake and alert. Oriented x 3. ASSESSMENT: Chest pain, probable muscular skeletal History of Non-STEMI with PTCA and stenting of the circumflex 10/07/2024 Coronary artery disease with previous CABG, 12/2023 Hypertension Hyperlipidemia Diabetes GERD History of rheumatoid arthritis COPD Status post cervical fusion on 09/10/2024 PLAN: Resume patient's home cardiac medications No need to repeat echocardiogram No plan for cardiac catheterization at this time Recommend workup for other etiologies of chest discomfort, musculoskeletal, GI Recommend cardiac rehab which can be arranged at her next office appointment Cardiology will sign off this case and follow on an as-needed basis. Please reconsult for any new concerns. Patient may follow-up in the office in one to [address] Ojeda . Nurse practitioner note has been reviewed by physician. Signing provider agrees with the documented findings, assessment, and plan of care documented by HEALTH INSURANCE ASSESSOR as a scribe. Past Medical History Past Medical History: Asthma, Coronary Artery Disease (CAD), COPD, Diabetes Mellitus, Hyperlipidemia, Hypertension, Myocardial Infarction ([place]), Musculoskeletal Disorder, Rheumatoid Arthritis (RA), Thyroid Disorder Additional Past Medical History / Comment(s): Back Pain, right shoulder pain, Hx Pituitary Tumor, BENIGN. Thyroid disorder. 3 heart attacks-most recent March 2022, 3 stents total, neuropathy; left-sided pleural effusion Last Myocardial Infarction Date:: 01/03/2024 History of Any Multi-Drug Resistant Organisms: None Reported Past Surgical History: Section, Coronary Bypass/CABG, Heart Catheterization With Stent, Tubal Ligation Additional Past Surgical History / Comment(s): Pituitary Tumor Removed. colonos copy, PAIN CLINIC PROCEDURES stents x3 c section x4; three-vessel off-pump CABG January 04, 2024; left-sided thoracentesis with removal of 950 mL fluid on January 22, 2024, cervical fusion C3-C7 09/10/2024 Past Anesthesia/Blood Transfusion Reactions: No Reported Reaction Date of Last Stent Placement:: March 2022 Past Psychological History: Anxiety, Depression Smoking Status: Former smoker Past Alcohol Use History: None Reported Past Drug Use History: None Reported - Past Family History Mother History Unknown: Yes Family Medical History: Deep Vein Thrombosis (DVT) Additional Family Medical History / Comment(s): Mother is alive at age 67 with h istory of coronary artery disease and three-vessel CABG. Daughter(s) History Unknown: Yes Family Medical History: Deep Vein Thrombosis (DVT) Additional Family Medical History / Comment(s): Patient has a total of 9 child miladis with no major medical problems. Father History Unknown: Yes Family Medical History: Cancer Additional Family Medical History / Comment(s): Father is alive with no history of coronary artery disease. History of Prostate Cancer Sister(s) History Unknown: Yes Additional Family Medical History / Comment(s): The patient has 4 sisters and 1 brother. One sister had a myocardial infraction at age 40. Medications and Allergies Home Medications Medication Instructions Recorded Confirmed Type metFORMIN HCL [Glucophage] 1,000 mg PO BID 01/19/22 12/19/24 History Aspirin 81 mg PO DAILY 09/05/24 12/19/24 History Atorvastatin [Lipitor] 80 mg PO HS 09/05/24 12/19/24 History Clopidogrel [Plavix] 75 mg PO DAILY 09/05/24 12/19/24 History Losartan [Cozaar] 25 mg PO DAILY 10/31/24 12/19/24 History Metoprolol Succinate (ER) [Toprol 50 mg PO DAILY 10/31/24 12/19/24 History XL] Plecanatide [Trulance] 3 mg PO DAILY 10/31/24 12/19/24 History amLODIPine [Norvasc] 2.5 mg PO DAILY 10/31/24 12/19/24 History Dulaglutide [Trulicity] 0.75 mg SQ FR 12/19/24 12/19/24 History Allergies Allergy/AdvReac Type Severity Reaction Status Date / Time peanut Allergy HIVES Verified 12/19/24 19:13 rice Allergy Rash/Hives Verified 12/19/24 19:13 seasonal Allergy Rash/Hives Uncoded 12/19/24 15:17 Physical Exam Vitals: Vital Signs Temp Pulse Pulse Resp BP BP Pulse Ox 12/20/24 04:15 62 18 135/51 100 12/19/24 23:38 17 12/19/24 22:41 97.5 F L 65 17 151/70 98 12/19/24 19:30 98.0 F 77 19 162/77 100 12/19/24 15:14 97.8 F 72 18 143/76 99 Intake and Output 12/19/24 12/20/24 12/20/24 22:59 06:59 14:59 Other: Weight 80.739 kg Results 12/19/24 17:47 12/19/24 17:47 Cardiac Enzymes 12/19/24 12/19/24 12/19/24 Range/Units 17:47 17:47 20:43 AST 17 (14-36) U/L Troponin I <0.012 <0.012 (0.000-0.034) ng/mL 12/19/24 Range/Units 23:54 AST (14-36) U/L Troponin I <0.012 (0.000-0.034) ng/mL Coagulation 12/19/24 Range/Units 17:47 PT 10.8 (10.0-12.5) sec APTT 22.9 (22.0-30.0) sec CBC 12/19/24 Range/Units 17:47 WBC 7.9 (3.8-10.6) k/uL RBC 4.38 (3.80-5.40) m/uL Hgb 11.7 (11.4-16.0) gm/dL Hct 37.3 (34.0-46.0) % Plt Count 244 (150-450) k/uL Comprehensive Metabolic Panel 12/19/24 Range/Units 17:47 Sodium 137 (137-145) mmol/L Potassium 4.8 (3.5-5.1) mmol/L Chloride 106 (98-107) mmol/L Carbon Dioxide 23 (22-30) mmol/L BUN 12 (7-17) mg/dL Creatinine 0.51 L (0.52-1.04) mg/dL Glucose 130 H (74-99) mg/dL Calcium 9.5 (8.4-10.2) mg/dL AST 17 (14-36) U/L ALT 20 (4-34) U/L Alkaline Phosphatase 156 H (38-126) U/L Total Protein 6.6 (6.3-8.2) g/dL Albumin 3.7 (3.5-5.0) g/dL Current Medications Generic Name Dose Route Start Last Admin Trade Name Freq PRN Reason Stop Dose Admin Aspirin 325 mg 12/20/24 09:00 Aspirin 325 Mg Tab PO DAILY TIERA Ketorolac Tromethamine 15 mg 12/19/24 23:17 Ketorolac 15 Mg/Ml 1 Ml Vial IVP 12/24/24 22:48 Q6HR PRN Pain Nitroglycerin 0.4 mg 12/19/24 18:54 Nitroglycerin Sl Tabs 0.4 Mg Tab SUBLINGUAL Q5M PRN Chest Pain Pantoprazole Sodium 40 mg 12/20/24 09:00 12/20/24 09:51 Pantoprazole 40 Mg/10 Ml Vial IVP Not Given DAILY TIERA Intake and Output 12/19/24 12/20/24 12/20/24 22:59 06:59 14:59 Other: Weight 80.739 kg 12/19/24 17:47 12/19/24 17:47
[2024-12-20] MEDS: KETOROLAC 15 MG/ML 1 ML VIAL IVP PRN (11:06)
[2024-12-20] MEDS: METOPROLOL SUCCINATE (ER) 50 MG TAB.ER.24H PO SCH (11:07)
[2024-12-20] MEDS: CLOPIDOGREL 75 MG TAB PO SCH (11:07)
[2024-12-20] MEDS: ASPIRIN 325 MG TAB PO SCH (11:07)
[2024-12-20] MEDS: LOSARTAN 25 MG TAB PO SCH (11:07)
[2024-12-20] MEDS: amLODIPine 2.5 MG TAB PO SCH (11:07)
[2024-12-20 14:38] VITALS: BP 130/52; PULSE 67
[2024-12-20] MEDS ORDERED: ATORVASTATIN 80 MG TAB PO SCH (21:00)
[2024-12-21 07:46] LABS: Chol/HDL Ratio 3.92 Ratio; LDL Cholesterol,Calculated 90.9 mg/dL (0.0-131.0)
--- NOTE | 2025-01-03 20:41 | P.HPIM ---
History of Present Illness H&P Date: 12/20/24 Chief Complaint: Chest pain 54-year-old female patient, medical history significant for coronary artery disease with previous CABG in 12/2023 followed by PTCA stent of the circumflex 10/14, diabetes, GERD, rheumatoid arthritis, COPD, and cervical radiculopathy. Patient states that she was having right-sided chest pain that was sharp. It sometimes happens when she is walking or when she is turning her body or moving. It is only periodic and comes and goes. Patient states she has had some pain like this since her heart surgery. It went away after Dr. Cedeno told her to take 3 nebulizer treatments a day. In early November she had a slip and fall on the landing on the concrete landing on her left elbow and she has had some left- sided pain and wrist pain. She also has had difficulty with neck pain since the fall and had the recent neck surgery in August. Regarding the chest pain, she states she felt better after her stent was done in September. She does have tenderness to the right side of the chest wall. She is complaining of headache. Blood pressure 135/51, heart rate 62, pulse ox 100% on room air. -EKG reveals sinus mechanism -Chest xray: Cardiomegaly and mild pulmonary vascular congestion. -Laboratory data: Troponin negative x 3. CBC normal. Creatinine 0.5. -Current home cardiac medications: Amlodipine 2.5 mg daily, aspirin 81 mg daily, atorvastatin 80 mg at bedtime, Plavix 75 mg daily, losartan 25 mg daily, Toprol XL 50 mg daily. -Most recent echocardiogram obtained 09/15/2024: Limited echo. Definity contrast used. Normal left ventricular size and systolic function. Review of Systems REVIEW OF SYSTEMS: CONSTITUTIONAL: No fever, no malaise, no fatigue. HEENT: No recent visual problems or hearing problems. Denied any sore throat. CARDIOVASCULAR: No chest pain, orthopnea, PND, no palpitations, no syncope. PULMONARY: No shortness of breath, no cough, no hemoptysis. GASTROINTESTINAL: No diarrhea, no nausea, no vomiting, no abdominal pain. NEUROLOGICAL: No headaches, no weakness, no numbness. HEMATOLOGICAL: Denies any bleeding or petechiae. GENITOURINARY: Denies any burning micturition, frequency, or urgency. MUSCULOSKELETAL/RHEUMATOLOGICAL: Denies any joint pain, swelling, or any muscle pain. ENDOCRINE: Denies any polyuria or polydipsia. The rest of the 14-point review of systems is negative. Past Medical History Past Medical History: Asthma, Coronary Artery Disease (CAD), COPD, Diabetes Mellitus, Hyperlipidemia, Hypertension, Myocardial Infarction ([place]), Musculoskeletal Disorder, Rheumatoid Arthritis (RA), Thyroid Disorder Additional Past Medical History / Comment(s): Back Pain, right shoulder pain, Hx Pituitary Tumor, BENIGN. Thyroid disorder. 3 heart attacks-most recent March 2022, 3 stents total, neuropathy; left-sided pleural effusion Last Myocardial Infarction Date:: 01/03/2024 History of Any Multi-Drug Resistant Organisms: None Reported Past Surgical History: Section, Coronary Bypass/CABG, Heart Catheterization With Stent, Tubal Ligation Additional Past Surgical History / Comment(s): Pituitary Tumor Removed. colonoscopy, PAIN CLINIC PROCEDURES stents x3 c section x4; three-vessel off- pump CABG January 04, 2024; left-sided thoracentesis with removal of 950 mL fluid on January 22, 2024, cervical fusion C3-C7 09/10/2024 Past Anesthesia/Blood Transfusion Reactions: No Reported Reaction Date of Last Stent Placement:: March 2022 Past Psychological History: Anxiety, Depression Smoking Status: Former smoker Past Alcohol Use History: None Reported Past Drug Use History: None Reported - Past Family History Mother History Unknown: Yes Family Medical History: Deep Vein Thrombosis (DVT) Additional Family Medical History / Comment(s): Mother is alive at age 67 with history of coronary artery disease and three-vessel CABG. Daughter(s) History Unknown: Yes Family Medical History: Deep Vein Thrombosis (DVT) Additional Family Medical History / Comment(s): Patient has a total of 9 children with no major medical problems. Father History Unknown: Yes Family Medical History: Cancer Additional Family Medical History / Comment(s): Father is alive with no history of coronary artery disease. History of Prostate Cancer Sister(s) History Unknown: Yes Additional Family Medical History / Comment(s): The patient has 4 sisters and 1 brother. One sister had a myocardial infraction at age 40. Medications and Allergies Home Medications Medication Instructions Recorded Confirmed Type metFORMIN HCL [Glucophage] 1,000 mg PO BID 01/19/22 12/19/24 History Aspirin 81 mg PO DAILY 09/05/24 12/19/24 History Atorvastatin [Lipitor] 80 mg PO HS 09/05/24 12/19/24 History Clopidogrel [Plavix] 75 mg PO DAILY 09/05/24 12/19/24 History Losartan [Cozaar] 25 mg PO DAILY 10/31/24 12/19/24 History Metoprolol Succinate (ER) [Toprol 50 mg PO DAILY 10/31/24 12/19/24 History XL] Plecanatide [Trulance] 3 mg PO DAILY 10/31/24 12/19/24 History amLODIPine [Norvasc] 2.5 mg PO DAILY 10/31/24 12/19/24 History Dulaglutide [Trulicity] 0.75 mg SQ FR 12/19/24 12/19/24 History Allergies Allergy/AdvReac Type Severity Reaction Status Date / Time peanut Allergy HIVES Verified 12/19/24 19:13 rice Allergy Rash/Hives Verified 12/19/24 19:13 seasonal Allergy Rash/Hives Uncoded 12/19/24 15:17 Physical Exam Vitals: Vital Signs Temp Pulse Pulse Resp BP BP Pulse Ox 12/20/24 04:15 62 18 135/51 100 12/19/24 23:38 17 12/19/24 22:41 97.5 F L 65 17 151/70 98 12/19/24 19:30 98.0 F 77 19 162/77 100 12/19/24 15:14 97.8 F 72 18 143/76 99 Intake and Output 12/19/24 12/20/24 12/20/24 22:59 06:59 14:59 Other: Weight 80.739 kg VITAL SIGNS: Reviewed. GENERAL: Well-developed in no acute distress. HEENT: Head is normocephalic. Pupils are equal, round. Sclerae anicteric. Neck supple. No JVD or thyromegaly LUNGS: Respirations even and unlabored. Lungs essentially clear to auscultation bilaterally. HEART: Regular rate and rhythm. S1 and S2 heard. 2/6 systolic murmur. Tenderness to palpation of right chest wall ABDOMEN: Soft. Nondistended. Nontender. EXTREMITIES: No clubbing or cyanosis. Peripheral pulses intact. No lower extremity edema NEUROLOGIC: Awake and alert. Oriented x 3. Results CBC & Chem 7: 12/19/24 17:47 12/19/24 17:47 Labs: Abnormal Lab Results - Last 24 Hours (Table) 12/19/24 Range/Units 17:47 Creatinine 0.51 L (0.52-1.04) mg/dL Glucose 130 H (74-99) mg/dL Magnesium 1.4 L (1.6-2.3) mg/dL Alkaline Phosphatase 156 H (38-126) U/L Assessment and Plan Assessment: 1. Chest pain; rule out acute coronary syndrome -Patient has history of Non-STEMI with PTCA and stenting of the circumflex 10/07/2024 Coronary artery disease with previous CABG, 12/2023 --We will admit to telemetry; monitor EKG and trend troponin 2. Hypertension; losartan 25 mg daily, Toprol-XL 50 mg daily, amlodipine 2.5 mg daily 3. Hyperlipidemia; Lipitor 80 mg p.o. nightly 4. Diabetes mellitus; monitor Accu-Cheks ACH S with insulin sliding scale 5. GERD; continue with home PPI 6. COPD; not in exacerbation; continue home inhaler therapy 7. History of rheumatoid arthritis Status post cervical fusion on 09/10/2024
--- NOTE | 2025-01-03 20:42 | P.DS ---
Providers Date of admission: 12/19/24 18:54 Expected date of discharge: 12/20/24 Attending physician: All Choi Consults: 12/19/24 18:54 Consult Physician Urgent Consulting Provider: Walker Osborn Consult Reason/Comments: chest pain Do you want consulting provider notified?: Yes Primary care physician: [facility] Course: 54-year-old female patient, medical history significant for coronary artery disease with previous CABG in 12/2023 followed by PTCA stent of the circumflex 10/14, diabetes, GERD, rheumatoid arthritis, COPD, and cervical radiculopathy. Patient states that she was having right-sided chest pain that was sharp. It sometimes happens when she is walking or when she is turning her body or moving. It is only periodic and comes and goes. Patient states she has had some pain like this since her heart surgery. It went away after Dr. Cedeno told her to take 3 nebulizer treatments a day. In early November she had a slip and fall on the landing on the concrete landing on her left elbow and she has had some left- sided pain and wrist pain. She also has had difficulty with neck pain since the fall and had the recent neck surgery in August. Regarding the chest pain, she states she felt better after her stent was done in September. She does have tenderness to the right side of the chest wall. She is complaining of headache. Blood pressure 135/51, heart rate 62, pulse ox 100% on room air. -EKG reveals sinus mechanism -Chest xray: Cardiomegaly and mild pulmonary vascular congestion. -Laboratory data: Troponin negative x 3. CBC normal. Creatinine 0.5. -Current home cardiac medications: Amlodipine 2.5 mg daily, aspirin 81 mg daily, atorvastatin 80 mg at bedtime, Plavix 75 mg daily, losartan 25 mg daily, Toprol XL 50 mg daily. -Most recent echocardiogram obtained 09/15/2024: Limited echo. Definity contrast used. Normal left ventricular size and systolic function. Chest pain, probable muscular skeletal History of Non-STEMI with PTCA and stenting of the circumflex 10/07/2024 Coronary artery disease with previous CABG, 12/2023 Hypertension Hyperlipidemia Diabetes GERD History of rheumatoid arthritis COPD Status post cervical fusion on 09/10/2024 PLAN: Resume patient's home cardiac medications No need to repeat echocardiogram No plan for cardiac catheterization at this time Recommend workup for other etiologies of chest discomfort, musculoskeletal, GI Recommend cardiac rehab which can be arranged at her next office appointment Cardiology will sign off Patient Condition at Discharge: Fair Plan - Discharge Summary New Discharge Prescriptions: Continue Losartan [Cozaar] 25 mg PO DAILY metFORMIN HCL [Glucophage] 1,000 mg PO BID Aspirin 81 mg PO DAILY Clopidogrel [Plavix] 75 mg PO DAILY Atorvastatin [Lipitor] 80 mg PO HS Metoprolol Succinate (ER) [Toprol XL] 50 mg PO DAILY amLODIPine [Norvasc] 2.5 mg PO DAILY Plecanatide [Trulance] 3 mg PO DAILY Dulaglutide [Trulicity] 0.75 mg SQ FR Discharge Medication List metFORMIN HCL [Glucophage] 1,000 mg PO BID 01/19/22 [History] Aspirin 81 mg PO DAILY 09/05/24 [History] Atorvastatin [Lipitor] 80 mg PO HS 09/05/24 [History] Clopidogrel [Plavix] 75 mg PO DAILY 09/05/24 [History] Losartan [Cozaar] 25 mg PO DAILY 10/31/24 [History] Metoprolol Succinate (ER) [Toprol XL] 50 mg PO DAILY 10/31/24 [History] Plecanatide [Trulance] 3 mg PO DAILY 10/31/24 [History] amLODIPine [Norvasc] 2.5 mg PO DAILY 10/31/24 [History] Dulaglutide [Trulicity] 0.75 mg SQ FR 12/19/24 [History] Follow up Appointment(s)/Referral(s): Iris Leigh III, MD [Primary Care Provider] - 1-2 days Discharge Disposition: HOME SELF-CARE
== END 2024-12-20 14:56 | disposition home or self-care (01) ==
LOC: EC 15:12 → 6NMEDSUR 18:54
PROVIDERS: ADMIT Hospitalist; ATTEND Hospitalist
DX: R07.89 Other chest pain (principal); I11.9 Hypertensive heart disease without heart failure; J06.9 Acute upper respiratory infection, unspecified; I25.10 Atherosclerotic heart disease of native coronary artery without angina pectoris; E11.9 Type 2 diabetes mellitus without complications; K21.9 Gastro-esophageal reflux disease without esophagitis; M06.9 Rheumatoid arthritis, unspecified; M54.12 Radiculopathy, cervical region; J44.9 Chronic obstructive pulmonary disease, unspecified; E78.5 Hyperlipidemia, unspecified; I25.2 Old myocardial infarction; Z79.85 Long-term (current) use of injectable non-insulin antidiabetic drugs; Z79.84 Long term (current) use of oral hypoglycemic drugs; Z79.82 Long term (current) use of aspirin; Z79.02 Long term (current) use of antithrombotics/antiplatelets; Z79.899 Other long term (current) drug therapy; Z91.010 Allergy to peanuts; Z91.018 Allergy to other foods; Z91.09 Other allergy status, other than to drugs and biological substances; Z95.1 Presence of aortocoronary bypass graft; Z95.5 Presence of coronary angioplasty implant and graft; Z98.1 Arthrodesis status; Z91.81 History of falling; Z87.891 Personal history of nicotine dependence; Z11.52 Encounter for screening for COVID-19; Z11.59 Encounter for screening for other viral diseases
CPT/HCPCS: 96376; 96374; 99284; 36415; 93005; 80061; 80053; 83735; 84484; 85025; 85610; 85730; 87636; 71046; G0378 ×2; J1885 ×2

== ENCOUNTER 2025-02-09 12:06 | Emergency (ER) | payer OTHER ==
[2025-02-09 12:13] VITALS: RESP 20; TEMP 98.3
--- NOTE | 2025-02-09 14:00 | ED ---
General Adult HPI - General Chief complaint: Psychiatric Symptoms Stated complaint: Mental Health Eval. Time Seen by Provider: 02/09/25 12:15 Source: patient, RN notes reviewed, old records reviewed Mode of arrival: ambulatory Limitations: no limitations - History of Present Illness Initial comments: 54-year-old female presenting for mental health evaluation. Patient was petitioned for mental health evaluation after having an emotional episode this morning in which he was having a difficult time calming down she states this was a panic attack and she states that she had a dream about her 8-year-old son who approximately 25 years ago. Because of this dream the patient was upset and apparently police and community mental health got involved resulting in a petition for mental health evaluation. Patient denies any suicidal or homicidal ideation. She is calm and cooperative at the time my evaluation. - Related Data Home Medications Medication Instructions Recorded Confirmed metFORMIN HCL [Glucophage] 1,000 mg PO BID 01/19/22 12/19/24 Aspirin 81 mg PO DAILY 09/05/24 12/19/24 Atorvastatin [Lipitor] 80 mg PO HS 09/05/24 12/19/24 Clopidogrel [Plavix] 75 mg PO DAILY 09/05/24 12/19/24 Losartan [Cozaar] 25 mg PO DAILY 10/31/24 12/19/24 Metoprolol Succinate (ER) [Toprol 50 mg PO DAILY 10/31/24 12/19/24 XL] Plecanatide [Trulance] 3 mg PO DAILY 10/31/24 12/19/24 amLODIPine [Norvasc] 2.5 mg PO DAILY 10/31/24 12/19/24 Dulaglutide [Trulicity] 0.75 mg SQ FR 12/19/24 12/19/24 Allergies Allergy/AdvReac Type Severity Reaction Status Date / Time peanut Allergy HIVES Verified 02/09/25 12:13 rice Allergy Rash/Hives Verified 02/09/25 12:13 seasonal Allergy Rash/Hives Uncoded 02/09/25 12:13 Review of Systems ROS Statement: Those systems with pertinent positive or pertinent negative responses have been documented in the HPI. ROS Other: All systems not noted in ROS Statement are negative. Past Medical History Past Medical History: Asthma, Coronary Artery Disease (CAD), COPD, Diabetes Mellitus, Hyperlipidemia, Hypertension, Myocardial Infarction ([place]), Musculoskeletal Disorder, Rheumatoid Arthritis (RA), Thyroid Disorder Additional Past Medical History / Comment(s): Back Pain, right shoulder pain, Hx Pituitary Tumor, BENIGN. Thyroid disorder. 3 heart attacks-most recent March 2022, 3 stents total, neuropathy; left-sided pleural effusion Last Myocardial Infarction Date:: 01/03/2024 History of Any Multi-Drug Resistant Organisms: None Reported Past Surgical History: Section, Coronary Bypass/CABG, Heart Catheterization With Stent, Tubal Ligation Additional Past Surgical History / Comment(s): Pituitary Tumor Removed. colonoscopy, PAIN CLINIC PROCEDURES stents x3 c section x4; three-vessel off- pump CABG January 04, 2024; left-sided thoracentesis with removal of 950 mL fluid on January 22, 2024, cervical fusion C3-C7 09/10/2024 Past Anesthesia/Blood Transfusion Reactions: No Reported Reaction Date of Last Stent Placement:: March 2022 Past Psychological History: Anxiety, Depression Smoking Status: Former smoker Past Alcohol Use History: None Reported Past Drug Use History: None Reported - Past Family History Mother History Unknown: Yes Family Medical History: Deep Vein Thrombosis (DVT) Additional Family Medical History / Comment(s): Mother is alive at age 67 with history of coronary artery disease and three-vessel CABG. Daughter(s) History Unknown: Yes Family Medical History: Deep Vein Thrombosis (DVT) Additional Family Medical History / Comment(s): Patient has a total of 9 children with no major medical problems. Father History Unknown: Yes Family Medical History: Cancer Additional Family Medical History / Comment(s): Father is alive with no history of coronary artery disease. History of Prostate Cancer Sister(s) History Unknown: Yes Additional Family Medical History / Comment(s): The patient has 4 sisters and 1 brother. One sister had a myocardial infraction at age 40. General Exam Limitations: no limitations General appearance: alert, in no apparent distress Head exam: Present: atraumatic, normocephalic Eye exam: Present: normal appearance, PERRL ENT exam: Present: normal exam Neck exam: Present: normal inspection. Absent: tenderness, meningismus Respiratory exam: Present: normal lung sounds bilaterally. Absent: respiratory distress, wheezes Cardiovascular Exam: Present: regular rate, normal rhythm GI/Abdominal exam: Present: soft. Absent: distended, tenderness Extremities exam: Present: normal inspection Neurological exam: Present: alert, oriented X3, CN II-XII intact. Absent: motor sensory deficit Psychiatric exam: Present: normal affect, normal mood. Absent: anxious, homicidal ideation, suicidal ideation Skin exam: Present: warm, dry, intact Course Vital Signs 02/09/25 12:09 Temperature 98.3 F Pulse Rate 115 H Respiratory 20 Rate Blood Pressure 160/124 O2 Sat by Pulse 96 Oximetry Medical Decision Making - Medical Decision Making Was pt. sent in by a medical professional or institution ([facility], TRANSCRIPTIONIST, urgent care, hospital, or intermediate...) When possible be specific @ -No Did you speak to anyone other than the patient for history (EMS, parent, family, police, friend...)? What history was obtained from this source @ -No Did you review nursing and triage notes (agree or disagree)? Why? @ -I reviewed and agree with nursing and triage notes Were old charts reviewed (outside hosp., previous admission, EMS record, old EKG, old radiological studies, urgent care reports/EKG's, intermediate records)? Report findings @ -No old charts were reviewed Differential Mental Health Depression, anxiety, bipolar, psychosis, schizophrenia, borderline personality, situational depression, adjustment disorder, behavioral disorder, brain tumor, malingering, substance abuse, encephalopathy, medication reaction, dementia, hypothyroidism, degenerative neurologic disorder, lupus.... This is not meant to be all-inclusive list EKG interpreted by me (3pts min.). @ -As above X-rays interpreted by me (1pt min.). @ -None done CT interpreted by me (1pt min.). @ -None done U/S interpreted by me (1pt. min.). @ -None done What testing was considered but not performed or refused? (CT, X-rays, U/S, labs)? Why? @ -None What meds were considered but not given or refused? Why? @ -None Did you discuss the management of the patient with other professionals (professionals i.e. [facility], TRANSCRIPTIONIST, lab, RT, psych nurse, nephrology social worker, leaf coverer, teacher, contract officer, disability case manager)? Give summary @ -No Was smoking cessation discussed for >3mins.? @ -No Was critical care preformed (if so, how long)? @ -No Were there social determinants of health that impacted care today? How? (Homelessness, low income, unemployed, alcoholism, drug addiction, transportation, low edu. Level, literacy, decrease access to med. care, correction, rehab)? @ -No Was there de-escalation of care discussed even if they declined (Discuss DNR or withdrawal of care, Hospice)? DNR status @ -No What co-morbidities impacted this encounter? (DM, HTN, Smoking, COPD, CAD, Cancer, CVA, ARF, Chemo, Hep., AIDS, mental health diagnosis, sleep apnea, morbid obesity)? @ -None Was patient admitted / discharged? Hospital course, mention meds given and route, prescriptions, significant lab abnormalities, going to OR and other pertinent info. @ -Patient medically cleared and evaluated by EPS, felt to be safe for discharge. I do agree with this assessment. The patient is calm cooperative, not suicidal or homicidal. This does seem like a normal grief response. Undiagnosed new problem with uncertain prognosis? @ -No Drug Therapy requiring intensive monitoring for toxicity (Heparin, Nitro, Insulin, Cardizem)? @ -No Were any procedures done? @ -No Diagnosis/symptom? @ -[Situational depression, grief Acute, or Chronic, or Acute on Chronic? @ -Acute Uncomplicated (without systemic symptoms) or Complicated (systemic symptoms)? @ -Default Side effects of treatment? @ -No Exacerbation, Progression, or Severe Exacerbation? @ -No Poses a threat to life or bodily function? How? (Chest pain, [place], [place], pneumonia, PE, COPD, DKA, ARF, appy, cholecystitis, CVA, Diverticulitis, Homicidal, Suicidal, threat to staff... and all critical care pts) @ -No Disposition Clinical Impression: Depression, Grief at loss of child Disposition: HOME SELF-CARE Condition: Fair Instructions (If sedation given, give patient instructions): Grief and Loss (ED) Is patient prescribed a controlled substance at d/c from ED?: No Referrals: None,Stated [Primary Care Provider] - 1-2 days Time of Disposition: 15:08
[2025-02-09 15:21] VITALS: BP 169/90; PULSE 89
== END 2025-02-09 15:27 | disposition home or self-care (01) ==
LOC: EC 12:06
DX: F32.A Depression, unspecified (principal); F43.21 Adjustment disorder with depressed mood; Z87.891 Personal history of nicotine dependence; Z91.018 Allergy to other foods; Z91.010 Allergy to peanuts
CPT/HCPCS: 82075; 99284

== ENCOUNTER → 2025-03-12 | Outpatient (CLI) | payer OTHER ==
--- NOTE | 2025-03-12 08:34 | XR ---
EXAMINATION TYPE: XR finger RT DATE OF EXAM: 03/12/2025 CLINICAL INDICATION: Female, 54 years old with history of M79.644 Pain finger rt hand, pain TECHNIQUE: Frontal, lateral and oblique images of the fifth finger right hand are obtained. COMPARISON: None. FINDINGS: There is prominent nail distal aspect of the fifth finger. No acute displaced fracture is seen. There is mild to moderate spurring at the fifth DIP joint. No suspicious radiodense soft tissue foreign body. No suspicious focal osseous lesion. IMPRESSION: As above. [facility], , 03/12/2025 8:32 AM
== END | disposition home or self-care (01) ==
LOC: RADXRMAIN 08:00
PROVIDERS: ATTEND Family Medicine
DX: M79.644 Pain in right finger(s) (principal)

== ENCOUNTER → 2025-04-22 | Outpatient (CLI) | payer OTHER ==
[2025-04-22 15:11] LABS: HCT 37.6 % (37.2-46.3); HGB 12.0 g/dL (12.0-15.0); MCH 27.0 pg (27.0-32.0); MCHC 31.9 g/dL (32.0-37.0); MCV 84.7 FL (80.0-97.0); NRBC Per 100 WBC 0 X 10*3/uL (0.00-0.01); Platelet Count 249 X 10*3/uL (140-440); RBC 4.44 X 10*6/uL (4.10-5.20); RDW 14.0 % (11.5-14.5); WBC 5.58 X 10*3/uL (4.50-10.00)
[2025-04-22 15:31] LABS: ALT 19 U/L (8-44); AST 21 U/L (13-35); Albumin 4.0 g/dL (3.8-4.9); Albumin/Globulin Ratio 1.38 Ratio (1.60-3.17); Alkaline Phosphatase 189 U/L (41-126); Anion Gap 11.70 mmol/L (4.00-12.00); BUN/Creat Ratio 15.17 Ratio (12.00-20.00); Blood Urea Nitrogen 9.1 mg/dL (9.0-27.0); Calcium 9.6 mg/dL (8.7-10.3); Carbon Dioxide 22.3 mmol/L (21.6-31.8); Chloride 107 mmol/L (96-109); Globulin 2.9 g/dL (1.6-3.3); Glucose 121 mg/dL (70-110); Potassium 4.5 mmol/L (3.5-5.5); Sodium 141 mmol/L (135-145); T4, Free (Free Thyroxine) 3.11 ng/dL (0.80-1.80); Total Protein 6.9 g/dL (6.2-8.2)
== END | disposition home or self-care (01) ==
LOC: LABWHC1 10:26
PROVIDERS: ATTEND Internal Medicine
DX: E05.90 Thyrotoxicosis, unspecified without thyrotoxic crisis or storm (principal)
CPT/HCPCS: 36415; 80053; 84439; 84443; 84481; 85027

== ENCOUNTER → 2025-04-23 | Outpatient (CLI) | payer OTHER ==
--- NOTE | 2025-04-23 10:59 | MM ---
Reason for Exam: Screening (asymptomatic). Last mammogram was performed 3 year(s) and 0 month(s) ago. Patient History: Menarche at age 15. First Full-Term at age 21. Postmenopausal. Risk Values: Leighann 5 year model risk: 1.2%. NCI Lifetime model risk: 8.3%. Prior Study Comparison: 07/12/2015 Bilateral Screening Mammogram, [facility]. 07/27/2016 Bilateral Screening Mammogram, [facility]. 08/13/2017 Bilateral Screening Mammogram, [facility]. 05/02/2022 Bilateral MG screening mammo w CAD, [facility]. Tissue Density: There are scattered areas of fibroglandular density. Findings: Analyzed By CAD. There is no suspicious group of microcalcifications or new suspicious mass in either breast. Overall Assessment: Negative, BI-RAD 1 Management: Screening Mammogram of both breasts in 1 year. Patient should continue monthly self-breast exams. A clinical breast exam by your physician is recommended on an annual basis. This exam should not preclude additional follow-up of suspicious palpable abnormalities. Note on Leihgann scores and lifetime risk: 1. A Leighann score greater than 3% is considered moderate risk. If this is the case, consider specialist referral to assess eligibility for a risk reducing agent. 2. If overall lifetime risk for the development of breast cancer is 20% or higher, the patient may qualify for future screening with alternating mammogram and breast MRI. [facility], , 04/23/2025 10:56 AM. Electronically signed and approved by: Michelle Baum M.D. Radiologist
== END | disposition home or self-care (01) ==
LOC: RADMAMWWP 07:31
DX: Z12.31 Encounter for screening mammogram for malignant neoplasm of breast (principal); R92.323 Mammographic fibroglandular density, bilateral breasts; Z78.0 Asymptomatic menopausal state
CPT/HCPCS: 77067

== ENCOUNTER → 2025-05-19 | Outpatient (CLI) | payer OTHER ==
[2025-05-19 15:06] LABS: HCT 35.0 % (37.2-46.3); HGB 11.5 g/dL (12.0-15.0); MCH 27.1 pg (27.0-32.0); MCHC 32.9 g/dL (32.0-37.0); MCV 82.4 FL (80.0-97.0); NRBC Per 100 WBC 0 X 10*3/uL (0.00-0.01); Platelet Count 241 X 10*3/uL (140-440); RBC 4.25 X 10*6/uL (4.10-5.20); RDW 13.2 % (11.5-14.5); WBC 7.75 X 10*3/uL (4.50-10.00)
[2025-05-19 15:07] LABS: Basophils # (A) 0.01 X 10*3/uL (0.00-0.10); Basophils % (A) 0.1 %; Eosinophils # (A) 0.25 X 10*3/uL (0.04-0.35); Eosinophils % (A) 3.2 %; Immature Grans, Automated 0.10 %; Lymphocytes # (A) 3.05 X 10*3/uL (0.90-5.00); Lymphocytes % (A) 39.4 %; Monocytes # (A) 0.35 X 10*3/uL (0.20-1.00); Monocytes % (A) 4.5 %; Neutrophils # (A) 4.08 X 10*3/uL (1.80-7.70); Neutrophils % (A) 52.7 %
[2025-05-19 15:38] LABS: ALT 24 U/L (8-44); AST 24 U/L (13-35); Albumin 4.0 g/dL (3.8-4.9); Albumin/Globulin Ratio 1.54 Ratio (1.60-3.17); Alkaline Phosphatase 177 U/L (41-126); Anion Gap 13.50 mmol/L (4.00-12.00); BUN/Creat Ratio 13.50 Ratio (12.00-20.00); Blood Urea Nitrogen 8.1 mg/dL (9.0-27.0); Calcium 9.7 mg/dL (8.7-10.3); Carbon Dioxide 23.5 mmol/L (21.6-31.8); Chloride 104 mmol/L (96-109); Cholesterol 157.00 mg/dL (0.00-200.00); Ferritin 80.3 ng/mL (10.0-291.0); Globulin 2.6 g/dL (1.6-3.3); Glucose 143 mg/dL (70-110); HDL Cholesterol 54.50 mg/dL (40.00-60.00); Iron 51 UG/DL (50-170); LDL Cholesterol,Calculated 84.6 mg/dL (0.0-131.0); Potassium 4.0 mmol/L (3.5-5.5); Sodium 141 mmol/L (135-145); Total Iron Binding Capacity 267 UG/DL (228-460); Total Protein 6.6 g/dL (6.2-8.2); Triglycerides 89.40 mg/dL (0.00-149.00); VLDL Calculation 17.88 mg/dL (5.00-40.00); Vitamin B12 643.0 pg/mL (200.0-944.0)
== END | disposition home or self-care (01) ==
LOC: LABWHC1 11:33
PROVIDERS: ATTEND Internal Medicine
DX: I10 Essential (primary) hypertension (principal); I25.10 Atherosclerotic heart disease of native coronary artery without angina pectoris; E11.65 Type 2 diabetes mellitus with hyperglycemia; E78.2 Mixed hyperlipidemia; G25.81 Restless legs syndrome
CPT/HCPCS: 36415; 80053; 80061; 82172; 82607; 82728; 82746; 83036; 83540; 83550; 85025

== ENCOUNTER 2025-05-22 19:06 | Emergency (ER) | payer OTHER ==
--- NOTE | 2025-05-22 20:00 | ED ---
Nausea/Vomiting/Diarrhea HPI - General Source: patient, RN notes reviewed Mode of arrival: ambulatory Limitations: no limitations <Sarai Almendarez - Last Filed: 05/23/25 03:39> <Mega Lange - Last Filed: 05/23/25 05:50> - General Chief complaint: Nausea/Vomiting/Diarrhea Stated complaint: vomitting Time Seen by Provider: 05/22/25 19:57 - History of Present Illness Initial comments: 54-year-old female presenting for vomiting x 1 month. States she is vomiting approximately 6-7 times per day. States she has been trying to adjust her diet however nothing seems to help the vomiting. Denies diarrhea, constipation, abdominal pain, fever, chills, chest pain, shortness of breath, urinary symptoms. Last bowel movement was today and was normal. She did see her primary care physician for this where they prescribed her Zofran however she states it has not been helping her symptoms. Denies history of abdominal surgeries. She does have a history of CAD on Plavix and aspirin, COPD, diabetes, hyperlipidemia, and hypertension. States she took all of her blood pressure medications today. (Sarai Almendarez) - Related Data Home Medications Medication Instructions Recorded Confirmed metFORMIN HCL [Glucophage] 1,000 mg PO BID 01/19/22 02/09/25 Aspirin 81 mg PO DAILY 09/05/24 02/09/25 Atorvastatin [Lipitor] 80 mg PO HS 09/05/24 02/09/25 Clopidogrel [Plavix] 75 mg PO DAILY 09/05/24 02/09/25 Losartan [Cozaar] 25 mg PO HS 10/31/24 02/09/25 Metoprolol Succinate (ER) [Toprol 50 mg PO DAILY 10/31/24 02/09/25 XL] Plecanatide [Trulance] 3 mg PO DAILY 10/31/24 02/09/25 amLODIPine [Norvasc] 2.5 mg PO DAILY 10/31/24 02/09/25 Dulaglutide [Trulicity] 1.5 mg SQ TH 02/09/25 02/09/25 Previous Rx's Medication Instructions Recorded Albuterol Sulfate [Albuterol 1 puff PO Q4-6H PRN #8.5 gm 03/19/25 Sulfate Hfa] predniSONE 50 mg PO DAILY 5 Days #5 tab 03/19/25 Allergies Allergy/AdvReac Type Severity Reaction Status Date / Time peanut Allergy HIVES Verified 05/22/25 19:17 rice Allergy Rash/Hives Verified 05/22/25 19:17 seasonal Allergy Rash/Hives Uncoded 05/22/25 19:17 Review of Systems ROS Other: All systems not noted in ROS Statement are negative. <Sarai Almendarez - Last Filed: 05/23/25 03:39> ROS Other: All systems not noted in ROS Statement are negative. <Mega Lange - Last Filed: 05/23/25 05:50> ROS Statement: Those systems with pertinent positive or pertinent negative responses have been documented in the HPI. Past Medical History Past Medical History: Asthma, Coronary Artery Disease (CAD), COPD, Diabetes Mellitus, Hyperlipidemia, Hypertension, Myocardial Infarction (OK), Musc uloskeletal Disorder, Rheumatoid Arthritis (RA), Sleep Apnea/CPAP/BIPAP, Thyroid Disorder Additional Past Medical History / Comment(s): Back Pain, right shoulder pain, Hx Pituitary Tumor, BENIGN. Thyroid disorder. 3 heart attacks-most recent March 2022, 3 stents total, neuropathy; left-sided pleural effusion Last Myocardial Infarction Date:: 01/03/2024 History of Any Multi-Drug Resistant Organisms: None Reported Past Surgical History: Section, Coronary Bypass/CABG, Heart Catheterization With Stent, Tubal Ligation Additional Past Surgical History / Comment(s): Pituitary Tumor Removed. colonoscopy, [facility] stents x3 c section x4; three-vessel off- pump CABG January 04, 2024; left-sided thoracentesis with removal of 950 mL fluid on January 22, 2024, cervical fusion C3-C7 09/10/2024 Past Anesthesia/Blood Transfusion Reactions: No Reported Reaction Date of Last Stent Placement:: March 2022 Past Psychological History: Anxiety, Depression Smoking Status: Former smoker Past Alcohol Use History: None Reported Past Drug Use History: None Reported - Past Family History Mother History Unknown: Yes Family Medical History: Deep Vein Thrombosis (DVT) Additional Family Medical History / Comment(s): Mother is alive at age 67 with history of coronary artery disease and three-vessel CABG. Daughter(s) History Unknown: Yes Family Medical History: Deep Vein Thrombosis (DVT) Additional Family Medical History / Comment(s): Patient has a total of 9 children with no major medical problems. Father History Unknown: Yes Family Medical History: Cancer Additional Family Medical History / Comment(s): Father is alive with no history of coronary artery disease. History of Prostate Cancer Sister(s) History Unknown: Yes Additional Family Medical History / Comment(s): The patient has 4 sisters and 1 brother. One sister had a myocardial infraction at age 40. <Sarai Almendarez - Last Filed: 05/23/25 03:39> General Exam Limitations: no limitations General appearance: alert, in no apparent distress Head exam: Present: atraumatic, normocephalic, normal inspection Eye exam: Present: normal appearance, PERRL, EOMI. Absent: scleral icterus, conjunctival injection, periorbital swelling ENT exam: Present: normal exam, mucous membranes moist Neck exam: Present: normal inspection. Absent: tenderness, meningismus, lymphadenopathy Respiratory exam: Present: normal lung sounds bilaterally. Absent: respiratory distress, wheezes, rales, rhonchi, stridor Cardiovascular Exam: Present: regular rate, normal rhythm, normal heart sounds. Absent: systolic murmur, diastolic murmur, rubs, gallop, clicks GI/Abdominal exam: Present: soft, normal bowel sounds. Absent: distended, tenderness, guarding, rebound, rigid Back exam: Absent: CVA tenderness (R), CVA tenderness (L) Neurological exam: Present: alert, oriented X3 Psychiatric exam: Present: normal affect, normal mood Skin exam: Present: warm, dry, intact, normal color. Absent: rash <Sarai Almendarez - Last Filed: 05/23/25 03:39> Course Vital Signs 05/22/25 05/22/25 05/22/25 19:13 19:25 21:39 Temperature 98.6 F Pulse Rate 81 70 89 Respiratory 18 16 18 Rate Blood Pressure 209/100 184/102 208/108 O2 Sat by Pulse 94 L 100 97 Oximetry 05/22/25 05/23/25 05/23/25 23:15 01:00 03:06 Temperature Pulse Rate 70 72 74 Respiratory 18 18 16 Rate Blood Pressure 188/76 146/88 153/71 O2 Sat by Pulse 96 96 96 Oximetry Medical Decision Making - Lab Data Result diagrams: 05/22/25 21:30 <Sarai Almendarez - Last Filed: 08/02/25 03:39> - Lab Data Result diagrams: 05/22/25 21:30 05/23/25 01:30 <AnisaMega D - Last Filed: 05/23/25 05:50> - Medical Decision Making Was pt. sent in by a medical professional or institution (, [facility], [facility], urgent care, hospital, or prison...) When possible be specific @ -No Did you speak to anyone other than the patient for history (EMS, parent, family, police, friend...)? What history was obtained from this source @ -No Did you review nursing and triage notes (agree or disagree)? Why? @ -I reviewed and agree with nursing and triage notes Were old charts reviewed (outside hosp., previous admission, EMS record, old EKG, old radiological studies, urgent care reports/EKG's, prison records)? Report findings @ -No old charts were reviewed Differential Diagnosis (chest pain, altered mental status, abdominal pain women, abdominal pain men, vaginal bleeding, weakness, fever, dyspnea, syncope, headache, dizziness, GI bleed, back pain, seizure, CVA, palpatations, mental health, musculoskeletal)? @ -Differential Women: Appendicitis, Cholecystitis, diverticulosis, ischemic bowel, pancreatitis, hepatitis, UTI, gastroenteritis, AAA, incarcerated hernia, bowel obstruction, constipation, inflammatory bowel, hepatitis, peptic ulcer disease, splenic infarction, perforated viscus, vulvitis, ovarian torsion, PID, kidney stone, placenta abruption, this is not meant to be an all-inclusive list EKG interpreted by me (3pts min.). @ -None X-rays interpreted by me (1pt min.). @ -None done CT interpreted by me (1pt min.). @ -None done U/S interpreted by me (1pt. min.). @ -Ultrasound gallbladder identifies no acute process What testing was considered but not performed or refused? (CT, X-rays, U/S, labs)? Why? @ -None What meds were considered but not given or refused? Why? @ -None Did you discuss the management of the patient with other professionals (professionals i.e. [facility] [place], [facility], lab, RT, psych nurse, social worker clinical, environmental advisor, teacher, space operations officer, skilled nursing case manager)? Give summary @ -No Was smoking cessation discussed for >3mins.? @ -No Was critical care preformed (if so, how long)? @ -No Were there social determinants of health that impacted care today? How? (Homelessness, low income, unemployed, alcoholism, drug addiction, transportation, low edu. Level, literacy, decrease access to med. care, assisted, rehab)? @ -No Was there de-escalation of care discussed even if they declined (Discuss DNR or withdrawal of care, Hospice)? DNR status @ -No What co-morbidities impacted this encounter? (DM, HTN, Smoking, COPD, CAD, Cancer, CVA, ARF, Chemo, Hep., AIDS, mental health diagnosis, sleep apnea, morbid obesity)? @ -None Was patient admitted / discharged? Hospital course, mention meds given and route, prescriptions, significant lab abnormalities, going to OR and other pertinent info. @ -54-year-old female presenting for vomiting x 1 month. Denies fever, abdominal pain. Patient is afebrile, tachycardic. Patient is well-appearing. Abdomen soft nontender. Provided with IV fluids and Reglan. Ultrasound gallbladder identifies no acute process. Case was signed out to my ED attending Dr. Lange pending labwork and disposition. (Sarai Almendarez) Patient care signed out to me by previous shift physician certified anesthesiologist assistant, Sarai Almendarez. Briefly, patient is a 54-year-old female with chronic vomiting. Patient evaluated at bedside 5:50 AM found to be in stable condition. Labs res ulted found to be unremarkable. Patient resting comfortably no acute distress. Discharged told to follow-up with primary care doctor. (Mega Lange) - Lab Data Lab Results 05/22/25 05/22/25 05/22/25 Range/Units 21:30 23:15 23:15 WBC 8.78 (4.50-10.00) 10*3/uL RBC 4.45 (4.10-5.20) 10*6/uL Hgb 12.6 (12.0-15.0) g/dL Hct 36.1 L (37.2-46.3) % MCV 81.1 (80.0-97.0) fL MCH 28.3 (27.0-32.0) pg MCHC 34.9 (32.0-37.0) g/dL Plt Count 235 (140-440) 10*3/uL MPV 9.6 (9.5-12.2) fL Immature Gran % (Auto) 0.2 % Neutrophils % 56.9 % Lymphocytes % 35.4 % Monocytes % 5.1 % Eosinophils % 2.2 % Basophils % 0.2 % Immature Gran # 0.02 (0.00-0.04) 10*3/uL Neutrophils # 4.99 (1.80-7.70) 10*3/uL Lymphocytes # 3.11 (0.90-5.00) 10*3/uL Monocytes # 0.45 (0.20-1.00) 10*3/uL Eosinophils # 0.19 (0.04-0.35) 10*3/uL Basophils # 0.02 (0.00-0.10) 10*3/uL Sodium (137-145) mmol/L Potassium (3.5-5.1) mmol/L Chloride (98-107) mmol/L Carbon Dioxide (22-30) mmol/L Anion Gap mmol/L BUN (7-17) mg/dL Creatinine (0.52-1.04) mg/dL Est GFR (CKD-EPI)AfAm (>60 ml/min/1.73 sqM) Est GFR (CKD-EPI)NonAf (>60 ml/min/1.73 sqM) Glucose (74-99) mg/dL Calcium (8.4-10.2) mg/dL Total Bilirubin (0.2-1.3) mg/dL AST (14-36) U/L ALT (4-34) U/L Alkaline Phosphatase (38-126) U/L Total Protein (6.3-8.2) g/dL Albumin (3.5-5.0) g/dL Amylase (30-110) U/L Lipase (23-300) U/L Urine Color Colorless Urine Appearance Clear (Clear) Urine pH 6.5 (5.0-8.0) Ur Specific [place] 1.003 (1.001-1.035) Urine Protein Negative (Negative) Urine Glucose (UA) Negative (Negative) Urine Ketones Negative (Negative) Urine Blood Negative (Negative) Urine Nitrite Negative (Negative) Urine Bilirubin Negative (Negative) Urine Urobilinogen <2.0 (<2.0) mg/dL Ur Leukocyte Esterase Negative (Negative) Urine HCG, Qual Not Detected (Not Detectd) 05/23/25 Range/Units 01:30 WBC (4.50-10.00) 10*3/uL RBC (4.10-5.20) 10*6/uL Hgb (12.0-15.0) g/dL Hct (37.2-46.3) % MCV (80.0-97.0) fL MCH (27.0-32.0) pg MCHC (32.0-37.0) g/dL Plt Count (140-440) 10*3/uL MPV (9.5-12.2) fL Immature Gran % (Auto) % Neutrophils % % Lymphocytes % % Monocytes % % Eosinophils % % Basophils % % Immature Gran # (0.00-0.04) 10*3/uL Neutrophils # (1.80-7.70) 10*3/uL Lymphocytes # (0.90-5.00) 10*3/uL Monocytes # (0.20-1.00) 10*3/uL Eosinophils # (0.04-0.35) 10*3/uL Basophils # (0.00-0.10) 10*3/uL Sodium 142 (137-145) mmol/L Potassium 3.8 (3.5-5.1) mmol/L Chloride 107 (98-107) mmol/L Carbon Dioxide 24 (22-30) mmol/L Anion Gap 11 mmol/L BUN 8 (7-17) mg/dL Creatinine 0.50 L (0.52-1.04) mg/dL Est GFR (CKD-EPI)AfAm >90 (>60 ml/min/1.73 sqM) Est GFR (CKD-EPI)NonAf >90 (>60 ml/min/1.73 sqM) Glucose 101 H (74-99) mg/dL Calcium 9.5 (8.4-10.2) mg/dL Total Bilirubin 0.4 (0.2-1.3) mg/dL AST 18 (14-36) U/L ALT 19 (4-34) U/L Alkaline Phosphatase 180 H (38-126) U/L Total Protein 7.1 (6.3-8.2) g/dL Albumin 3.9 (3.5-5.0) g/dL Amylase 148 H (30-110) U/L Lipase 88 (23-300) U/L Urine Color Urine Appearance (Clear) Urine pH (5.0-8.0) Ur Specific [place] (1.001-1.035) Urine Protein (Negative) Urine Glucose (UA) (Negative) Urine Ketones (Negative) Urine Blood (Negative) Urine Nitrite (Negative) Urine Bilirubin (Negative) Urine Urobilinogen (<2.0) mg/dL Ur Leukocyte Esterase (Negative) Urine HCG, Qual (Not Detectd) Disposition <Sarai Almendarez - Last Filed: 05/23/25 03:39> Is patient prescribed a controlled substance at d/c from ED?: No Time of Disposition: 05:50 <Mega Lange - Last Filed: 05/23/25 05:50> Clinical Impression: Nausea and vomiting Disposition: HOME SELF-CARE Condition: Good Instructions (If sedation given, give patient instructions): Acute Nausea and Vomiting (ED) Referrals: Iris Leigh III, MD [Primary Care Provider] - 1-2 days
--- NOTE | 2025-05-22 21:17 | US ---
EXAMINATION TYPE: US gallbladder DATE OF EXAM: 05/22/2025 COMPARISON: NONE CLINICAL INDICATION: Female, 54 years old with history of vomiting x 1 month; N/V x 1 month, can't ho ld food down, diabetic TECHNIQUE: Grayscale and color Doppler imaging of the right upper quadrant was performed. FINDINGS: EXAM MEASUREMENTS: Liver Length: 15.5 cm Gallbladder Wall: 0.2 cm CBD: 0.5 cm Right Kidney: 10.7 x 4.6 x 4.3 cm Pancreas: wnl Liver: wnl Gallbladder: wnl Evidence for sonographic Bonilla's sign: no CBD: wnl Right Kidney: wnl IMPRESSION: 1. No acute ultrasound abnormality right upper quadrant [facility], Workstation: [facility], 05/22/2025 9:14 PM
[2025-05-22] MEDS: METOCLOPRAMIDE 5 MG/ML 2 ML VIAL IVP STA (21:33)
[2025-05-22] MEDS: SODIUM CHLORIDE 0.9% 1,000 ML IV STA (21:35)
[2025-05-22 21:39] LABS: Basophils # (A) 0.02 10*3/uL (0.00-0.10); Basophils % (A) 0.2 %; Eosinophils # (A) 0.19 10*3/uL (0.04-0.35); Eosinophils % (A) 2.2 %; HCT 36.1 % (37.2-46.3); HGB 12.6 g/dL (12.0-15.0); Lymphocytes # (A) 3.11 10*3/uL (0.90-5.00); Lymphocytes % (A) 35.4 %; MCH 28.3 pg (27.0-32.0); MCHC 34.9 g/dL (32.0-37.0); MCV 81.1 fL (80.0-97.0); Monocytes # (A) 0.45 10*3/uL (0.20-1.00); Monocytes % (A) 5.1 %; Neutrophils # (A) 4.99 10*3/uL (1.80-7.70); Neutrophils % (A) 56.9 %; Platelet Count 235 10*3/uL (140-440); RBC 4.45 10*6/uL (4.10-5.20); RDW 12.8 % (11.5-14.5); WBC 8.78 10*3/uL (4.50-10.00)
[2025-05-22 23:20] LABS: Bilirubin,Urine Negative (Negative); Blood,Urine Negative (Negative); Color,Urine Colorless; Glucose,Urine (UA) Negative (Negative); Ketones,Urine Negative (Negative); Leukocyte Esterase,Urine Negative (Negative); Nitrite,Urine Negative (Negative); PH, Urine 6.5 (5.0-8.0); Protein,Urine Negative (Negative); Specific Gravity,Urine 1.003 (1.001-1.035); Urobilinogen,Urine <2.0 mg/dL (<2.0)
[2025-05-23 04:51] LABS: Glucose 101 mg/dL (74-99)
[2025-05-23 04:52] LABS: African American GFR (CKD) >90 (>60 ml/min/1.73 sqM); Anion Gap 11 mmol/L; Blood Urea Nitrogen 8 mg/dL (7-17); Carbon Dioxide 24 mmol/L (22-30); Chloride 107 mmol/L (98-107); Non-African American GFR(CKD) >90 (>60 ml/min/1.73 sqM); Potassium 3.8 mmol/L (3.5-5.1); Sodium 142 mmol/L (137-145)
[2025-05-23 04:53] LABS: Albumin 3.9 g/dL (3.5-5.0); Calcium 9.5 mg/dL (8.4-10.2); Total Protein 7.1 g/dL (6.3-8.2)
[2025-05-23 04:54] LABS: ALT 19 U/L (4-34); AST 18 U/L (14-36); Alkaline Phosphatase 180 U/L (38-126)
[2025-05-23 04:57] LABS: Amylase 148 U/L (30-110); Lipase 88 U/L (23-300)
[2025-05-23 06:12] VITALS: BP 147/102; PULSE 70; RESP 18; TEMP 98.5
== END 2025-05-23 06:12 | disposition home or self-care (01) ==
LOC: EC 19:06
CPT/HCPCS: 36415; 76705; 80053; 81003; 81025; 82150; 83690; 85025; 96361; 96374; 99284